=== PATIENT | male | born 1960 | race Caucasian/White ===

== ENCOUNTER → 2016-12-03 | Outpatient (CLI) | payer BC ==
[~2016-12-03] MED LIST: CYAN100020 PO; FEBU80TA PO; FOLITAB21 PO; LOSA100T65 PO; NRN600 PO; OMEP40CA41 PO; POTA1080 PO; PYRI100T4 PO; SULI150T PO; ZCR40 PO
[2016-12-03 12:17] LABS: BASO % 1.1 %; BASO ABS # 0.07 K/uL (0-0.2); COMPLETE YES; EOS % 5.3 %; HEMATOCRIT 47.4 % (42-52); IG% 0.5 %; LYMPH % 14.4 %; LYMPH ABS # 0.95 K/uL (1.2-3.4); MEAN CELL VOLUME 93.9 fL (80-100); MEAN CORPUSCULAR HEMOGLOBIN 30.7 pg (25-34); MEAN CORPUSCULAR HGB CONC 32.7 g/dl (32-36); MEAN PLATELET VOLUME 11.7 fL (7.4-10.4); MONO % 12.4 %; NEUT % 66.3 %; PLATELET COUNT 158 K/uL (130-400); RED BLOOD COUNT 5.05 M/uL (4.7-6.1)
[2016-12-03 12:40] LABS: ALT/SGPT 30 U/L (12-78); AST/SGOT 17 U/L (15-37); BLOOD UREA NITROGEN 41 mg/dl (7-18); BUN/CREATININE RATIO 12.7 (10-20); CALCIUM 9.2 mg/dl (8.5-10.1); CARBON DIOXIDE 26 mmol/L (21-32); CHLORIDE 109 mmol/L (98-107); CHOLESTEROL 118 mg/dl (0-200); CHOLESTEROL/HDL RATIO 3.8; GLUCOSE 90 mg/dl (70-99); HDL CHOLESTEROL 31 mg/dl; LDL CHOLESTEROL CALCULATED 63 mg/dl; POTASSIUM 4.6 mmol/L (3.5-5.1); SODIUM 143 mmol/L (136-145); TRIGLYCERIDES 119 mg/dl (0-150); VERY LOW DENSITY LIPOPROT CALC 24 mg/dl
[2016-12-03 12:45] LABS: ESTIMATED AVERAGE GLUCOSE 114 mg/dl; HA1C FLAG Normal (Normal)
[2016-12-03 13:16] LABS: URINE APPEARANCE CLEAR (CLEAR); URINE BILIRUBIN NEG (NEG); URINE COLOR YELLOW; URINE EPITHELIAL CELL AUTO >30 /lpf (0-5); URINE NITRITE NEG (NEG); URINE PH 6.5 (4.5-7.5); UROBILINOGEN NEG (NEG)
[2016-12-03 13:26] LABS: MANUAL MICROSCOPIC REQUIRED? NO; REVIEW REQ? NO
[2016-12-03 14:20] LABS: RATIO 1361.5 mcg/mg (0-30.0)
== END | disposition home or self-care (01) ==
LOC: C.LAB1850 09:51
PROVIDERS: ATTEND Internal Medicine
DX: R73.9 Hyperglycemia, unspecified (principal)

== ENCOUNTER → 2017-02-05 | Outpatient (CLI) | payer BC | END | disposition home or self-care (01) | LOC: C.LAB1850 15:44 | PROVIDERS: ATTEND Internal Medicine | DX: G62.9 Polyneuropathy, unspecified (principal) ==

== ENCOUNTER → 2017-04-28 | Day surgery (SDC) | payer BC ==
[2017-04-14 15:45] VITALS: BMI 45.0
[~2017-04-28] VITALS: Ht 182.9 cm; Wt 150.0 kg
[~2017-04-28] MED LIST changes: +DULO-24 PO; -FEBU80TA PO; +GABA600T PO; +LIDOCAINE HCL 2% 2 ML VIAL (20MG/ML) ONE; -LOSA100T65 PO; +LOSA1TAB38 PO; +MIDAZOLAM HCL 1 MG/ML 2ML VIAL ONE; -NRN600 PO; -POTA1080 PO; +POTA10CA28 PO; +PROPOFOL IV EMULSION 10 MG/ML 20 ML VIAL IV ONE; +SIMV40TA2 PO; +SODIUM CHLORIDE 0.9% 500ML 500 ML IV ONE; -ZCR40 PO
[2017-04-28 09:09] VITALS: Ht 182.9 cm; Wt 150.0 kg
[2017-04-28 09:21] VITALS: TEMP 36.7
--- NOTE | 2017-04-28 09:55 | Endo History and Physical ---
History & Physical Date of Service: Apr 28, 2017. Chief Complaint: screening Referring Physician: dr. palm History of Present Illness 56 yo CM who presents for screening colonoscopy. Past Surgical History Hx Cardiac Surgery: No Hx Internal Defibrillator: No Hx Pacemaker: No Hx Abdominal Surgery: No Hx of Implantable Prosthesis: No Hx Post-Op Nausea and Vomiting: No Hx Cancer Surgery: Yes (MELANOMA REMOVED FROM LEFT LEG WITH SKIN GRAFTING) Hx Thoracic Surgery: No Hx Orthopedic: Yes (RT WRIST SURGERY) Hx Urinary Tract Surgery: No Family History IBD Social History Smoking Status: Never Smoker Hx Substance Use: No Hx Alcohol Use: Yes (VERY RARELY) Allergies Coded Allergies: Allopurinol (Unverified Allergy, Unknown, RASH, 04/28/17) Penicillins (Unverified Allergy, Unknown, A BABY, UNSURE OF RX, ) Current Medications Reported Home Medications Medications Dose Route/Sig Max Daily Dose Days Date Category Micro-K Ext Rel (Potassium Chloride) 10 Meq Capcr 10 Meq PO BID 04/14/17 Reported Vitamin B6 (Pyridoxine HCl) 100 Mg Tab 50 Mg PO QAM 04/14/17 Reported Vitamin B12 (Cyanocobalamin) 1,000 Mcg Tab 1 Tab PO QAM 04/14/17 Reported Clinoril (Sulindac) 150 Mg Tab 150 Mg PO BID 04/14/17 Reported Zocor (Simvastatin) 40 Mg Tab 40 Mg PO QPM 04/14/17 Reported Prilosec (Omeprazole) 40 Mg Cap 40 Mg PO QAM 04/14/17 Reported Cozaar (Losartan Potassium) 100 Mg Tab 100 Mg PO QAM 04/14/17 Reported Neurontin (Gabapentin) 600 Mg Tab 600 Mg PO TID 04/14/17 Reported Folbic (Folic Urwf-Amguxgcqek-Xamvomqx) 1 Tab Tab 1 Tab PO QAM 04/14/17 Reported Cymbalta (Duloxetine HCl) 20 Mg Cap 2 Cap PO QAM 04/14/17 Reported Vital Signs Weight (Kilograms): 150.00 Height (Feet): 6 Height (Inches): 0 Date Time Temp Pulse Resp B/P (MAP) Pulse Ox O2 Delivery O2 Flow Rate FiO2 04/28/17 09:21 36.7 63 18 167/95 (119) 97 Room Air Physical Exam General Appearance: WD/WN, no apparent distress Respiratory/Chest: Auscultation: breath sounds normal Cardiovascular: Heart Auscultation: RRR Abdomen: Bowel Sounds: normal Inspection & Palpation: soft, non-distended, no tenderness, guarding & rebound Assessment and Plan Assessment: 56 yo CM who presents for screening colonoscopy. Plan: Proceed with colonoscopy.
--- NOTE | 2017-04-28 10:32 | GI REPORT ---
Procedure Date: 04/28/2017 9:41 AM Procedure: Colonoscopy Indications: Screening for colorectal malignant neoplasm Medicines: Monitored Anesthesia Care Complications: No immediate complications. Estimated Blood Loss: Estimated blood loss: none. Procedure: Pre-Anesthesia Assessment: - Prior to the procedure, a History and Physical was performed, and patient medications and allergies were reviewed. The patient's tolerance of previous anesthesia was also reviewed. The risks and benefits of the procedure and the sedation options and risks were discussed with the patient. All questions were answered, and informed consent was obtained. Prior Anticoagulants: The patient has taken no previous anticoagulant or antiplatelet agents. ASA Grade Assessment: III - A patient with severe systemic disease. After reviewing the risks and benefits, the patient was deemed in satisfactory condition to undergo the procedure. After I obtained informed consent, the scope was passed under direct vision. Throughout the procedure, the patient's blood pressure, pulse, and oxygen saturations were monitored continuously. The On-site loaner was introduced through the anus and advanced to the cecum, identified by appendiceal orifice and ileocecal valve. The colonoscopy was performed with moderate difficulty due to the patient's body habitus. Successful completion of the procedure was aided by changing the patient to a supine position and using manual pressure. The patient tolerated the procedure well. The quality of the bowel preparation was good. The ileocecal valve, appendiceal orifice, and rectum were photographed. Findings: The perianal and digital rectal examinations were normal. A 4 mm polyp was found in the sigmoid colon. The polyp was sessile. The polyp was removed with a cold biopsy forceps. Resection and retrieval were complete. Non-bleeding internal hemorrhoids were found during retroflexion. The hemorrhoids were small. Impression: - One 4 mm polyp in the sigmoid colon, removed with a cold biopsy forceps. Resected and retrieved. - Non-bleeding internal hemorrhoids. Recommendation: - Resume previous diet. - Continue present medications. - Repeat colonoscopy for surveillance based on pathology results. - Return to primary care physician as previously scheduled. Keith Davis DO 04/28/2017 10:32:12 AM This report has been signed electronically. Note Initiated On: 04/28/2017 9:41 AM I attest to the content of the Intraoperative Record and orders documented therein, exceptions below
--- NOTE | 2017-04-28 10:33 | Discharge Instructions ---
Endoscopy Patient Instructions Date / Procedure(s) Performed Apr 28, 2017. Colonoscopy Allergy Information Coded Allergies: Allopurinol (Unverified Allergy, Unknown, RASH, 04/28/17) Penicillins (Unverified Allergy, Unknown, A BABY, UNSURE OF RX, ) Discharge Date / Findings Apr 28, 2017. Colon polyp Internal hemorrhoids Medication Instructions OK to resume all medications today as prescribed Reported Home Medications Medications Dose Route/Sig Max Daily Dose Days Date Category Micro-K Ext Rel (Potassium Chloride) 10 Meq Capcr 10 Meq PO BID 04/14/17 Reported Vitamin B6 (Pyridoxine HCl) 100 Mg Tab 50 Mg PO QAM 04/14/17 Reported Vitamin B12 (Cyanocobalamin) 1,000 Mcg Tab 1 Tab PO QAM 04/14/17 Reported Clinoril (Sulindac) 150 Mg Tab 150 Mg PO BID 04/14/17 Reported Zocor (Simvastatin) 40 Mg Tab 40 Mg PO QPM 04/14/17 Reported Prilosec (Omeprazole) 40 Mg Cap 40 Mg PO QAM 04/14/17 Reported Cozaar (Losartan Potassium) 100 Mg Tab 100 Mg PO QAM 04/14/17 Reported Neurontin (Gabapentin) 600 Mg Tab 600 Mg PO TID 04/14/17 Reported Folbic (Folic Dful-Bseywztyly-Pklbqrrt) 1 Tab Tab 1 Tab PO QAM 04/14/17 Reported Cymbalta (Duloxetine HCl) 20 Mg Cap 2 Cap PO QAM 04/14/17 Reported Provider Instructions Activity Restrictions - No exercising or heavy lifting for 24 hours. - Do not drink alcohol the day of the procedure. - Do not drive a car or operate machinery until the day after the procedure. - Do not make any important decisions or sign important papers in 24 hours after the procedure. Following Day: - Return to full activity which may include returning to work/school. Diet Start your diet with liquids and light foods (jello, soup, juice, toast). Then eat your usual diet if not nauseated. Treatment For Common After Affects For mild abdominal pain, bloating, or excessive gas: - Rest - Eat lightly - Lie on right side Follow-Up Information Follow-up with dr. palm as scheduled Anesthesia Information What You Should Know You have had a procedure that required some medicine to reduce anxiety and discomfort. This treatment is called moderate sedation. After receiving the treatment, you may be sleepy, but you will be able to breathe on your own. The effects of the treatment may last for several hours. Follow these instructions along with Activity/Diet recommendations noted above: * Do NOT do anything where dizziness or clumsiness would be dangerous. * Rest quietly at home today, then you can be up and about tomorrow. * Have a responsible person stay with you the rest of today. * You may have had an I.V. today. If so, you may take the dressing off later today. Recommendations Call your doctor if: * Trouble breathing * Continuous vomiting for more than 24 hours * Temperature above 101 degrees * Severe abdominal pain or bloating * Pain not relieved by pain medicine ordered * There is increased drainage or redness from any incision * A large amount of rectal bleeding greater than 2-3 tablespoons. (If you had a polyp/s removed or have hemorrhoids, a small amount of blood - from the rectum is to be expected.) * You have any unanswered questions or concerns. IN THE EVENT OF A SERIOUS EMERGENCY, GO TO THE NEAREST EMERGENCY ROOM Your discharge instructions were prepared by provider Keith Davis. Patient Instructions Signature Page Kirby Prado Patient (or Guardian) Signature/Date: I have read and understand the instructions given to me by my caregivers. Caregiver/RN/Doctor Signature/Date: The above-named patient and/or guardian has received patient instructions on this date. + Original Patient Signature Page (only) stays with chart. Please make copy for patient.
--- NOTE | 2017-04-28 10:46 | Anesthesiology Progress Note ---
Anesthesia Post Op Note Date & Time Apr 28, 2017 at 10:46 Vital Signs Pain Intensity: 0 Vital Signs Past 12 Hours Date Time Temp Pulse Resp B/P (MAP) Pulse Ox O2 Delivery O2 Flow Rate FiO2 04/28/17 10:30 74 12 133/85 (101) 97 Room Air 04/28/17 09:21 36.7 63 18 167/95 (119) 97 Room Air Notes Mental Status: alert / awake / arousable, participated in evaluation Pt Amnestic to Procedure: Yes Nausea / Vomiting: adequately controlled Pain: adequately controlled Airway Patency, RR, SpO2: stable & adequate BP & HR: stable & adequate Hydration State: stable & adequate Anesthetic Complications: no major complications apparent
[2017-04-28 11:00] VITALS: BP 149/95; PULSE 60; O2SAT 99
== END | disposition home or self-care (01) ==
LOC: C.GI 08:56
PROVIDERS: ATTEND Internal Medicine
DX: Z12.11 Encounter for screening for malignant neoplasm of colon (principal); K63.5 Polyp of colon; K64.8 Other hemorrhoids; Z85.820 Personal history of malignant melanoma of skin; Z83.79 Family history of other diseases of the digestive system

== ENCOUNTER → 2017-07-29 | Outpatient (CLI) | payer BC ==
[~2017-07-29] MED LIST changes: -LIDOCAINE HCL 2% 2 ML VIAL (20MG/ML) ONE; -MIDAZOLAM HCL 1 MG/ML 2ML VIAL ONE; -PROPOFOL IV EMULSION 10 MG/ML 20 ML VIAL IV ONE; -SODIUM CHLORIDE 0.9% 500ML 500 ML IV ONE
--- NOTE | 2017-07-29 10:56 | DIAGNOSTIC IMAGING REPORT ---
CHEST 2 VIEWS ROUTINE HISTORY: 56 years-old Male [id number] acute cough COMPARISON: Chest CT 09/01/2011, chest radiographs 08/31/2011 TECHNIQUE: PA and lateral views of the chest FINDINGS: Cardiac silhouette is upper limits of normal in size. Bilateral hilar prominence again noted with multiple scattered pulmonary nodules. No pneumothorax, pleural effusion or lobar airspace consolidation. Bones appear grossly intact. Sigmoidal scoliosis of the thoracolumbar spine. IMPRESSION: 1. Redemonstration of multiple bilateral pulmonary nodules and hilar enlargement, likely reflecting sequela of prior granulomatous disease, better characterized on comparison chest CT of 09/01/2011. 2. No lobar airspace consolidation identified. The above report was generated using voice recognition software. It may contain grammatical, syntax or spelling errors. Electronically signed by: Karl Miller M.D. 07/29/2017 10:54 AM Dictated Date/Time: 07/29/2017 10:52 AM
[2017-07-29 13:15] LABS: INFLUENZA B ANTIGEN Neg for Influ B (NEG)
== END | disposition home or self-care (01) ==
LOC: C.RAD1850 10:26
PROVIDERS: ATTEND Physician Assistant Medical
DX: R05 Cough (principal)

== ENCOUNTER → 2017-08-13 | Outpatient (CLI) | payer BC | END | disposition home or self-care (01) | LOC: C.LAB1850 15:52 | PROVIDERS: ATTEND Internal Medicine | DX: R39.9 Unspecified symptoms and signs involving the genitourinary system (principal) ==

== ENCOUNTER → 2017-08-17 | Outpatient (CLI) | payer BC ==
[2017-08-17 15:38] LABS: BASO % 1.3 %; BASO ABS # 0.08 K/uL (0-0.2); EOS % 5.2 %; EOS ABS # 0.33 K/uL (0-0.5); HEMOGLOBIN 13.7 g/dL (14.0-18.0); IG# 0.04 K/uL (0.00-0.02); LYMPH % 16.7 %; LYMPH ABS # 1.06 K/uL (1.2-3.4); MEAN CELL VOLUME 95.3 fL (80-100); MEAN CORPUSCULAR HEMOGLOBIN 31.9 pg (25-34); MEAN CORPUSCULAR HGB CONC 33.4 g/dl (32-36); MEAN PLATELET VOLUME 10.4 fL (7.4-10.4); MONO % 12.5 %; MONO ABS # 0.79 K/uL (0.11-0.59); NEUT % 63.7 %; NEUT ABS # 4.03 K/uL (1.4-6.5); PLATELET COUNT 260 K/uL (130-400); RED CELL DISTRIBUTION WIDTH CV 12.9 % (11.5-14.5); RED CELL DISTRIBUTION WIDTH SD 44.6 fL (36.4-46.3); WHITE BLOOD COUNT 6.33 K/uL (4.8-10.8)
[2017-08-17 15:56] LABS: BLOOD UREA NITROGEN 65 mg/dl (7-18); CARBON DIOXIDE 22 mmol/L (21-32); CREATININE 4.18 mg/dl (0.60-1.40); GLUCOSE 88 mg/dl (70-99); POTASSIUM 5.7 mmol/L (3.5-5.1); SODIUM 140 mmol/L (136-145)
== END | disposition home or self-care (01) ==
LOC: C.LAB1850 14:41
PROVIDERS: ATTEND Internal Medicine
DX: E78.00 Pure hypercholesterolemia, unspecified (principal)

== ENCOUNTER → 2017-09-16 | Outpatient (CLI) | payer BC | END | disposition home or self-care (01) | LOC: C.LAB1850 16:57 | PROVIDERS: ATTEND Internal Medicine | DX: N41.9 Inflammatory disease of prostate, unspecified (principal) ==

== ENCOUNTER → 2017-12-20 | Outpatient (CLI) | payer BC ==
[~2017-12-20] MED LIST changes: +FEBU80TA PO; -POTA10CA28 PO; -SULI150T PO; +URC10 PO
[2017-12-20 12:34] LABS: BLOOD UREA NITROGEN 83 mg/dl (7-18); CARBON DIOXIDE 19 mmol/L (21-32); CREATININE 3.22 mg/dl (0.60-1.40); GLUCOSE 110 mg/dl (70-99); POTASSIUM 4.8 mmol/L (3.5-5.1); SODIUM 140 mmol/L (136-145)
== END | disposition home or self-care (01) ==
LOC: C.LAB1850 09:59
PROVIDERS: ATTEND Physician Assistant
DX: N18.9 Chronic kidney disease, unspecified (principal)

== ENCOUNTER → 2017-12-29 | Outpatient (CLI) | payer BC ==
[2017-12-29 14:59] LABS: BLOOD UREA NITROGEN 82 mg/dl (7-18); CALCIUM 8.3 mg/dl (8.5-10.1); CARBON DIOXIDE 19 mmol/L (21-32); CREATININE 3.42 mg/dl (0.60-1.40); GLUCOSE 85 mg/dl (70-99); POTASSIUM 5.5 mmol/L (3.5-5.1); SODIUM 142 mmol/L (136-145)
== END | disposition home or self-care (01) ==
LOC: C.LAB1850 13:40
PROVIDERS: ATTEND Internal Medicine
DX: N18.9 Chronic kidney disease, unspecified (principal)

== ENCOUNTER → 2018-01-06 | Outpatient (CLI) | payer BC ==
[2018-01-06 10:30] LABS: BLOOD UREA NITROGEN 79 mg/dl (7-18); CALCIUM 8.1 mg/dl (8.5-10.1); CARBON DIOXIDE 22 mmol/L (21-32); CREATININE 3.75 mg/dl (0.60-1.40); GLUCOSE 121 mg/dl (70-99); POTASSIUM 4.8 mmol/L (3.5-5.1); SODIUM 141 mmol/L (136-145)
== END | disposition home or self-care (01) ==
LOC: C.LAB1850 09:09
PROVIDERS: ATTEND Physician Assistant
DX: N18.9 Chronic kidney disease, unspecified (principal)

== ENCOUNTER 2018-11-12 16:24 | Inpatient (IN) ==
[2018-11-12 17:19] LABS: Appearance Urine Clear (Clear); Bacteria Urine Automated Negative (Negative); Bilirubin Urine Negative (Negative); Blood Urine 1+ (Negative); Cast Urine Automated 0 /lpf (0-5); Color Urine Yellow; Epithelial Cell Urine Auto 0-5 /lpf (0-5); Glucose Urine UA Negative (Negative); Ketones Urine Negative (Negative); Leukocyte Esterase Urine Negative (Negative); Nitrite Urine Negative (Negative); Protein Urine 2+ (Negative); RBC Urine Automated 0-4 /hpf (0-4); Specific Gravity Urine 1.015 (1.000-1.030); Urobilinogen Urine Negative (Negative)
[2018-11-12 17:34] LABS: Basophils # (auto) 0.08 K/uL (0-0.2); Basophils % (auto) 1.3 %; Eosinophils % (auto) 8.1 %; Hematocrit (blood only) 32.1 % (42-52); Immature Granulocytes # (auto) 0.01 K/uL (0.00-0.02); Immature Granulocytes % (auto) 0.2 %; Lymphocytes # (auto) 0.92 K/uL (1.2-3.4); Mean Corpuscular Hgb Conc 34.3 g/dL (32-36); Mean Corpuscular Volume 95.3 fL (80-100); Monocytes % (auto) 11.4 %; Neutrophils # (auto) 3.93 K/uL (1.4-6.5); Platelet Count 146 K/uL (130-400); RDW Coefficient of Variation 12.2 % (11.5-14.5); Red Blood Count 3.37 M/uL (4.7-6.1); White Blood Count 6.14 K/uL (4.8-10.8)
[2018-11-12] MEDS ORDERED: SODIUM CHLORIDE 0.9% 1000ML 1,000 ML IV ONE (17:41)
[2018-11-12 18:04] LABS: Albumin Globulin Ratio 1.1 (0.9-2); Albumin Level 3.6 gm/dl (3.4-5.0); Bilirubin,Total 0.4 mg/dl (0.2-1); Calcium 13.3 mg/dl (8.5-10.1); Creatinine Clr Calc Pharmacy 11.2 ml/min; Est GFR (African American) 6.1; Est GFR (Non-African American) 5.3; Globulin 3.2 gm/dl (2.5-4.0); Potassium 5.7 mmol/L (3.5-5.1); Total Protein 6.8 gm/dl (6.4-8.2)
--- NOTE | 2018-11-12 20:16 | History & Physical Report ---
Date of Service November 12, 2018 Assessment & Plan (1) Acute kidney injury superimposed on CKD: 57 year old male with a past medical history of HTN, HLD, DVT (10 yrs ago, no longer on anticoagulation), Neuropathy, Gout, CKD, possible Sarcoidosis admitted with acute on chronic kidney disease and multiple electrolyte abnormalities Acute on CKD -Cr 9.66 rising from 4.7 -5.6 in Dec 2017 to 6.7-8.2 from Jul-September 2018 - given IV Ns 1L bolus in ED - has fistula in place, but had never required dialysis - Start NS drip at 100 cc/hr - Avoid nephrotoxic agents - Losartan held - Monitor ins/outs - Nephrology consulted (2) Hypercalcemia: possibly related to Sarcoidosis though diagnosis remains unconfirmed per patient - IV fluids as above - Calcium acetate held - Continue to monitor Ca level - PTH < 6.3 on day arrival (3) Hyperkalemia: K 5.2- 5.7 on day arrival baseline5.5-5.9 with last 4 months likely secondary to ckd potassium citrate held Continue to follow daily bmps (4) Neuropathy: Continue Gabapentin, Duloxetine (5) Gout: Continue Uloric (6) History of DVT (deep vein thrombosis): DVT 10 yrs ago s/p melanoma removal no longer on anticoagulation DVT prophylaxis protocol with Heparin (7) GERD (gastroesophageal reflux disease): Continue Omeprazole (8) Hypertension: Losartan held given elevated Cr Continue to monitor BP History of Present Illness Chief Complaint: Acute on Chronic Kidney disease, Hypercalcemia Primary Care Provider: Lan Pablo MD 57 year old male with a past medical history of HTN, HLD, DVT (10 yrs ago, no longer on anticoagulation), Neuropathy, Gout, CKD, possible Sarcoidosis, that presents due to abnormal lab results. Patient had recent labwork drawn prior to scheduled appt with Dr Pablo. He was notified today that he should be evaluated at the [facility] ED. Patient reports general worsening fatigue but is otherwise asymptomatic. He has never had dialysis, however, He did have a fistula placed in May. He reports frequent urination in small amounts however this is his baseline . He denies fevers, chills, chest pain, palpitation, edema, presyncope, syncope. In the ED, patient was found to be afebrile, normotensive, Hb 11 ( baseline 10- 12) K 5.2-->5.7 ( baseline 4-6), Cr 9.66 rising from 4.7 -5.6 in Dec 2017 to 6.7-8.2 from Jul-September 2018, Ca 12.7-->13.3, phos 8.4. He was given 1L NS in the ED. Allergies Allergy/AdvReac Type Severity Reaction Status Date / Time allopurinol Allergy Unknown Rash Verified 11/12/18 17:44 Penicillins Allergy Unknown Unknown Verified 11/12/18 17:44 Home Medications Home Medications Medication Instructions Recorded Confirmed Type Uloric 80 mg PO QAM 06/22/18 11/12/18 History cyanocobalamin (vitamin B-12) 1,000 mcg PO QAM 06/22/18 11/12/18 History duloxetine 20 mg PO QAM 06/22/18 11/12/18 History omeprazole 40 mg PO QAM 06/22/18 11/12/18 History pyridoxine (vitamin B6) [Vitamin 100 mg PO QAM 06/22/18 11/12/18 History B-6] simvastatin 40 mg PO QPM 06/22/18 11/12/18 History Folbic 1 tab PO QAM 11/12/18 11/12/18 History gabapentin 600 mg PO BID #0 cap 11/14/18 11/12/18 Rx Past Med/Surg History Medical History Chronic kidney disease (Acute) Deep vein blood clot of left lower extremity S/P LEFT LEG SURGERY (EXCISION OF MELANOMA LEFT LEG) 10 YEARS AGO. Gout Hyperlipidemia Hypertension Sarcoidosis Sleep apnea CPAP Surgical History History of melanoma excision History of tonsillectomy History of tooth extraction Social History Preferred Language: [place] Communication Ability: Effective Beliefs That Will Affect Care: None marital status: Current Living Situation: Spouse Feels Safe at Home: Yes Smoking Status: Never smoker Second Hand Exposure: No Hx Alcohol Use: No Hx Substance Use: No Review of Systems Review of Systems: All systems reviewed & are unremarkable except as noted in HPI & below Physical Exam Physical Exam: GENERAL APPEARANCE: obese, alert and cooperative, and appears to be in no acute distress. HEAD: normocephalic. EYES: PERRL, EOMI, vision is grossly intact. EARS: External auditory canals and tympanic membranes clear, hearing grossly intact. NOSE: No nasal discharge. NECK: Neck supple, non-tender without lymphadenopathy CARDIAC: Normal S1 and S2. No S3, S4 or murmurs. Rhythm is regular LUNGS: Clear to auscultation and percussion without rales, rhonchi, wheezing or diminished breath sounds. ABDOMEN: Positive bowel sounds. Soft, nondistended, nontender. No guarding or rebound. No masses. MUSKULOSKELETAL: moving extremities LOWER EXTREMITY: no edema, hemosiderin staining bilaterally NEUROLOGICAL: CN II-XII grossly intact. Strength and sensation symmetric and intact throughout. Results & Data Vital Signs (Past 12 Hours) Vital Signs Temp Pulse Resp BP Pulse Ox 11/12/18 18:31 103 H 19 150/87 H 11/12/18 17:38 66 20 146/73 H 11/12/18 17:00 56 L 18 134/79 11/12/18 16:28 36.4 C L 58 L 18 138/85 96 Laboratory Results Laboratory Results WBC 6.14 K/uL (4.8-10.8) 11/12/18 17:20 RBC 3.37 M/uL (4.7-6.1) L 11/12/18 17:20 Hgb 11.0 g/dL (14.0-18.0) L 11/12/18 17:20 Hct 32.1 % (42-52) L 11/12/18 17:20 MCV 95.3 fL (80-100) 11/12/18 17:20 MCH 32.6 pg (25-34) 11/12/18 17:20 MCHC 34.3 g/dL (32-36) 11/12/18 17:20 RDW Std Deviation 42.0 fL (36.4-46.3) 11/12/18 17:20 RDW Coeff of Theresa 12.2 % (11.5-14.5) 11/12/18 17:20 Plt Count 146 K/uL (130-400) 11/12/18 17:20 MPV 11.0 fL (7.4-10.4) H 11/12/18 17:20 Immature Gran % (Auto) 0.2 % 11/12/18 17:20 Neut % (Auto) 64.0 % 11/12/18 17:20 Lymph % (Auto) 15.0 % 11/12/18 17:20 [place] % (Auto) 11.4 % 11/12/18 17:20 Eos % (Auto) 8.1 % 11/12/18 17:20 Baso % (Auto) 1.3 % 11/12/18 17:20 Immature Gran # (Auto) 0.01 K/uL (0.00-0.02) 11/12/18 17:20 Neut # (Auto) 3.93 K/uL (1.4-6.5) 11/12/18 17:20 Lymph # (Auto) 0.92 K/uL (1.2-3.4) L 11/12/18 17:20 [place] # (Auto) 0.70 K/uL (0.11-0.59) H 11/12/18 17:20 Eos # (Auto) 0.50 K/uL (0-0.5) 11/12/18 17:20 Baso # (Auto) 0.08 K/uL (0-0.2) 11/12/18 17:20 Sodium 143 mmol/L (136-145) 11/12/18 17:21 Potassium 5.7 mmol/L (3.5-5.1) H 11/12/18 17:21 Chloride 104 mmol/L (98-107) 11/12/18 17:21 Carbon Dioxide 28 mmol/L (21-32) 11/12/18 17:21 Anion Gap 11.0 (3-11) 11/12/18 17:21 BUN 105 mg/dl (7-18) H 11/12/18 17:21 Creatinine 9.78 mg/dl (0.6-1.4) H* 11/12/18 17:21 Est Cr Clr Drug Dosing 11.2 ml/min 11/12/18 17:21 Est GFR ( Amer) 6.1 11/12/18 17:21 Est GFR (Non-Af Amer) 5.3 11/12/18 17:21 BUN/Creatinine Ratio 11.0 (10-20) 11/12/18 17:21 Glucose 101 mg/dl (70-99) H 11/12/18 17:21 Calcium 13.3 mg/dl (8.5-10.1) H* 11/12/18 17:21 Phosphorus 7.7 mg/dl (2.5-4.9) H 11/12/18 17:21 Total Bilirubin 0.4 mg/dl (0.2-1) 11/12/18 17:21 AST 10 U/L (15-37) L 11/12/18 17:21 ALT 28 U/L (12-78) 11/12/18 17:21 Alkaline Phosphatase 92 U/L (45-117) 11/12/18 17:21 Total Protein 6.8 gm/dl (6.4-8.2) 11/12/18 17:21 Albumin 3.6 gm/dl (3.4-5.0) 11/12/18 17:21 Globulin 3.2 gm/dl (2.5-4.0) 11/12/18 17:21 Albumin/Globulin Ratio 1.1 (0.9-2) 11/12/18 17:21 Lipase 560 U/L (73-393) H 11/12/18 17:21 Urine Color Yellow 11/12/18 17:00 Urine Appearance Clear (Clear) 11/12/18 17:00 Urine pH 7.0 (4.5-7.5) 11/12/18 17:00 Ur Specific [place] 1.015 (1.000-1.030) 11/12/18 17:00 Urine Protein 2+ (Negative) H 11/12/18 17:00 Urine Glucose (UA) Negative (Negative) 11/12/18 17:00 Urine Ketones Negative (Negative) 11/12/18 17:00 Urine Blood 1+ (Negative) H 11/12/18 17:00 Urine Nitrite Negative (Negative) 11/12/18 17:00 Urine Bilirubin Negative (Negative) 11/12/18 17:00 Urine Urobilinogen Negative (Negative) 11/12/18 17:00 Ur Leukocyte Esterase Negative (Negative) 11/12/18 17:00 Urine WBC (Auto) 1-5 /hpf (0-5) 11/12/18 17:00 Urine RBC (Auto) 0-4 /hpf (0-4) 11/12/18 17:00 U Hyaline Cast (Auto) 0 /lpf (0-5) 11/12/18 17:00 U Epithel Cells (Auto) 0-5 /lpf (0-5) 11/12/18 17:00 Urine Bacteria (Auto) Negative (Negative) 11/12/18 17:00 Code Status & VTE Plan Code Status Full code VTE Prophylaxis Plan VTE Prophylaxis will be ordered: Yes Supervising Physician Co-Signing Physician Notes Attending addendum: I have physically seen this patient, have supervised the medical residents activities, and agree with the H&P unless as otherwise noted. Assessment and Plan: Acute kidney injury on CKD- Creatinine today 9.78, with baseline 4.7-5.6 since 12/2017. Given normal saline 1 L in the ED. Continue NSS at 100 mils per hour. Hold losartan. Repeat laboratories in a.m. Consult nephrology. Hypercalcemia- Calcium level 13.3 upon admission. Questionable diagnosis of sarcoidosis in the past. NSS at 100 mils per hour as noted above. Give pamidronate 60 mg IV x1. Follow serial laboratories in the a.m. Remainder of orders notations as noted. Resident Activity Tracking Resident Involvement: Resident Care Provided Care Provided: Adult Hospital Medicine
[2018-11-12] MEDS ORDERED: PAMIDRONATE DISODIUM 60 MG in SODIUM CHLORIDE 0.9% 1000ML 1,000 ML IV STA ×2 (21:19→23:42)
[2018-11-12] MEDS ORDERED: ACETAMINOPHEN 325 MG TAB PO PRN (21:50)
[2018-11-12] MEDS ORDERED: ONDANSETRON INJ 2 MG/ML 2 ML VIAL IV PRN (21:50)
[2018-11-12] MEDS ORDERED: ALUMINUM/MAGNESIUM SUSP 30 ML UDC PO PRN (21:50)
[2018-11-12] MEDS ORDERED: SODIUM CHLORIDE 0.9% 1000ML 1,000 ML IV SCH (22:00)
--- NOTE | 2018-11-12 22:49 | Emergency Department Note ---
Entered by Fabby Fine acting as a scribe for Anibal Cason DO History of Present Illness General Chief complaint: Abnormal Labs/Diagnostic Testing Stated complaint: abnormal test results Source: patient History of Present Illness Provider complaint: fatigue Onset (ago): day(s) (several days) Location: head Radiation: non-radiation Pain Consistency: + other (persistent) Maximum Pain Intensity: 0 Relieved By: + none Exacerbated By: + none Associated symptoms: + other (-abdominal pain, -diarrhea); no chest pain and no nausea/vomiting The patient is a 58 year old male who presents to the Emergency Room with complaints of persistent fatigue for the past several days. The patient states that he had blood work done this morning and his creatinine levels were at a 10 and his baseline is at a 6. The patient states that he has a kidney infection, but the source is unknown. The patient notes that he is on the transplant list and he is not on dialysis, but he has a fistula in place that has been there for months. The patient denies any chest pain, abdominal pain, nausea, vomiting, or diarrhea. He states that he has been frequently peeing. No other exacerbating or remitting factors. Patient has no other complaints at this time. Home Medications Home Medications Medication Instructions Recorded Confirmed Type Uloric 80 mg PO QAM 06/22/18 11/12/18 History cyanocobalamin (vitamin B-12) 1,000 mcg PO QAM 06/22/18 11/12/18 History duloxetine 20 mg PO QAM 06/22/18 11/12/18 History losartan 100 mg PO QAM 06/22/18 11/12/18 History omeprazole 40 mg PO QAM 06/22/18 11/12/18 History potassium citrate 1,080 mg PO BID 06/22/18 11/12/18 History pyridoxine (vitamin B6) [Vitamin 100 mg PO QAM 06/22/18 11/12/18 History B-6] simvastatin 40 mg PO QPM 06/22/18 11/12/18 History calcium acetate 1,334 mg PO TIDM 11/12/18 11/12/18 History folic acid-vit B6-vit B12 [Folbic] 1 tab PO QAM 11/12/18 11/12/18 History gabapentin 600 mg PO TID 11/12/18 11/12/18 History Allergies Allergy/AdvReac Type Severity Reaction Status Date / Time allopurinol Allergy Unknown Rash Verified 11/12/18 17:44 Penicillins Allergy Unknown Unknown Verified 11/12/18 17:44 Past Med/Surg History Medical History Chronic kidney disease (Acute) Deep vein blood clot of left lower extremity S/P LEFT LEG SURGERY (EXCISION OF MELANOMA LEFT LEG) 10 YEARS AGO. Gout Hyperlipidemia Hypertension Sarcoidosis Sleep apnea CPAP Surgical History History of melanoma excision History of tonsillectomy History of tooth extraction Social History Preferred Language: Vietnamese Communication Ability: Effective County Manager Required: No Beliefs That Will Affect Care: None Current Living Situation: Spouse Other Information That Helps Us Care for You: No Feels Safe at Home: Yes Safety Concerns: Feels Safe At This Time Smoking Status: Never smoker Do You Dip or Chew Tobacco: No Second Hand Exposure: No Hx Alcohol Use: No Hx Substance Use: No Review of Systems See HPI for pertinent positives & negatives. and A total of 10 systems reviewed and were otherwise negative Physical Exam Vital Signs Vital Signs - 24 hr 11/12/18 16:28 11/12/18 17:00 11/12/18 17:38 Temperature 36.4 C L Temperature Source Oral Sepsis Recent Fever Within 48 Hours No Sepsis New/Unexplained Change in Mental Status No Sepsis Action Taken by Nursing No Action Required Pulse Rate 58 L 56 L 66 Pulse Rate from SpO2 Sensor Respiratory Rate 18 18 20 Respiratory Effort / Characteristics Respiratory Depth Normal Respiratory Pattern Blood Pressure 138/85 134/79 146/73 H Blood Pressure Mean 102 97 97 Blood Pressure Position Sitting Pulse Oximetry 96 Oxygen Delivery Method Room Air 11/12/18 18:31 11/12/18 18:32 11/12/18 19:00 Temperature Temperature Source Sepsis Recent Fever Within 48 Hours Sepsis New/Unexplained Change in Mental Status Sepsis Action Taken by Nursing Pulse Rate 103 H 63 54 L Pulse Rate from SpO2 Sensor Respiratory Rate 19 17 20 Respiratory Effort / Characteristics Respiratory Depth Respiratory Pattern Blood Pressure 150/87 H Blood Pressure Mean 108 Blood Pressure Position Pulse Oximetry Oxygen Delivery Method 11/12/18 19:01 11/12/18 19:30 11/12/18 19:31 Temperature Temperature Source Sepsis Recent Fever Within 48 Hours Sepsis New/Unexplained Change in Mental Status Sepsis Action Taken by Nursing Pulse Rate 56 L 56 L 74 Pulse Rate from SpO2 Sensor Respiratory Rate 21 19 15 Respiratory Effort / Characteristics Respiratory Depth Respiratory Pattern Blood Pressure 159/92 H 170/105 H Blood Pressure Mean 114 126 Blood Pressure Position Pulse Oximetry Oxygen Delivery Method 11/12/18 19:40 11/12/18 19:58 11/12/18 20:00 Temperature Temperature Source Sepsis Recent Fever Within 48 Hours Sepsis New/Unexplained Change in Mental Status Sepsis Action Taken by Nursing Pulse Rate 55 L 125 H Pulse Rate from SpO2 Sensor Respiratory Rate 16 22 Respiratory Effort / Characteristics Non-Labored Spontaneous Respiratory Depth Normal Respiratory Pattern Regular Blood Pressure 171/97 H 164/100 H Blood Pressure Mean 121 121 Blood Pressure Position Pulse Oximetry Oxygen Delivery Method Room Air 11/12/18 20:30 Temperature Temperature Source Sepsis Recent Fever Within 48 Hours Sepsis New/Unexplained Change in Mental Status Sepsis Action Taken by Nursing Pulse Rate 60 Pulse Rate from SpO2 Sensor 58 L Respiratory Rate 19 Respiratory Effort / Characteristics Respiratory Depth Respiratory Pattern Blood Pressure 150/85 H Blood Pressure Mean 106 Blood Pressure Position Pulse Oximetry 100 Oxygen Delivery Method GENERAL: sitting up in bed, alert, well appearing, well nourished, no distress, non-toxic EYE EXAM: normal conjunctiva, PERRL and EOM's grossly intact OROPHARYNX: no exudate, no erythema, lips, buccal mucosa, and tongue normal and mucous membranes are moist NECK: supple, no nuchal rigidity, no adenopathy, non-tender LUNGS: Clear to auscultation. Normal chest wall mechanics HEART: no murmurs, S1 normal and S2 normal ABDOMEN: abdomen soft, non-tender, normo-active bowel sounds, no masses, no rebound or guarding. BACK: Back is symmetrical on inspection and there is no deformity, no midline tenderness, no CVA tenderness. SKIN: no rashes and no bruising UPPER EXTREMITIES: left distal forearm positive thrill and bruit. LOWER EXTREMITIES: No pitting edema. NEURO EXAM: Normal sensorium, cranial nerves II-XII grossly intact, normal speech, no gross weakness of arms, no gross weakness of legs. Course 1633: The patient was evaluated in room C7, and a complete history and physical examination were performed. 1800: I reevaluated and updated the patient on her test results. The patient is resting comfortably. 181: I reviewed the patient's case with Dr. Oropeza- [facility] Hospitalist. She will evaluate the patient for further management. Administered Medications Discontinued Medications Sodium Chloride (Nss 1000ml) 1,000 mls @ 999 mls/hr IV .Q1H1M ONE Stop: 11/12/18 18:41 Last Infusion: 11/12/18 20:14 Dose: 0 mls/hr Documented by: [id number] Admin: 11/12/18 17:48 Dose: 999 mls/hr Documented by: [id number] Medical Decision Making Differential Diagnosis Differential diagnosis: Etiologies such as metabolic, infection, hypo/hyperglycemia, electrolyte abnormalities, cardiac sources, intracerebral event, toxicologic, neurologic, as well as others were entertained. Medical Records Attestation: I reviewed the patient's medical records. Home Medications Current Medication List: was personally reviewed by me Laboratory Data Attestation: I reviewed the patient's lab results. Result diagrams: 11/12/18 17:20 11/12/18 17:21 Lab Results 11/12/18 11/12/18 11/12/18 Range/Units 17:00 17:20 17:21 WBC 6.14 (4.8-10.8) K/uL RBC 3.37 L (4.7-6.1) M/uL Hgb 11.0 L (14.0-18.0) g/dL Hct 32.1 L (42-52) % MCV 95.3 (80-100) fL MCH 32.6 (25-34) pg MCHC 34.3 (32-36) g/dL RDW Std Deviation 42.0 (36.4-46.3) fL RDW Coeff of Theresa 12.2 (11.5-14.5) % Plt Count 146 (130-400) K/uL MPV 11.0 H (7.4-10.4) fL Immature Gran % (Auto) 0.2 % Neut % (Auto) 64.0 % Lymph % (Auto) 15.0 % Wetzel % (Auto) 11.4 % Eos % (Auto) 8.1 % Baso % (Auto) 1.3 % Immature Gran # (Auto) 0.01 (0.00-0.02) K/uL Neut # (Auto) 3.93 (1.4-6.5) K/uL Lymph # (Auto) 0.92 L (1.2-3.4) K/uL [place] # (Auto) 0.70 H (0.11-0.59) K/uL Eos # (Auto) 0.50 (0-0.5) K/uL Baso # (Auto) 0.08 (0-0.2) K/uL Sodium 143 (136-145) mmol/L Potassium 5.7 H (3.5-5.1) mmol/L Chloride 104 (98-107) mmol/L Carbon Dioxide 28 (21-32) mmol/L Anion Gap 11.0 (3-11) BUN 105 H (7-18) mg/dl Creatinine 9.78 H* (0.6-1.4) mg/dl Est Cr Clr Drug Dosing 11.2 ml/min Est GFR ( Amer) 6.1 Est GFR (Non-Af Amer) 5.3 BUN/Creatinine Ratio 11.0 (10-20) Glucose 101 H (70-99) mg/dl Calcium 13.3 H* (8.5-10.1) mg/dl Phosphorus (2.5-4.9) mg/dl Total Bilirubin 0.4 (0.2-1) mg/dl AST 10 L (15-37) U/L ALT 28 (12-78) U/L Alkaline Phosphatase 92 (45-117) U/L Total Protein 6.8 (6.4-8.2) gm/dl Albumin 3.6 (3.4-5.0) gm/dl Globulin 3.2 (2.5-4.0) gm/dl Albumin/Globulin Ratio 1.1 (0.9-2) Lipase 560 H (73-393) U/L Urine Color Yellow Urine Appearance Clear (Clear) Urine pH 7.0 (4.5-7.5) Ur Specific [place] 1.015 (1.000-1.030) Urine Protein 2+ H (Negative) Urine Glucose (UA) Negative (Negative) Urine Ketones Negative (Negative) Urine Blood 1+ H (Negative) Urine Nitrite Negative (Negative) Urine Bilirubin Negative (Negative) Urine Urobilinogen Negative (Negative) Ur Leukocyte Esterase Negative (Negative) Urine WBC (Auto) 1-5 (0-5) /hpf Urine RBC (Auto) 0-4 (0-4) /hpf U Hyaline Cast (Auto) 0 (0-5) /lpf U Epithel Cells (Auto) 0-5 (0-5) /lpf Urine Bacteria (Auto) Negative (Negative) 11/12/18 Range/Units 17:21 WBC (4.8-10.8) K/uL RBC (4.7-6.1) M/uL Hgb (14.0-18.0) g/dL Hct (42-52) % MCV (80-100) fL MCH (25-34) pg MCHC (32-36) g/dL RDW Std Deviation (36.4-46.3) fL RDW Coeff of Theresa (11.5-14.5) % Plt Count (130-400) K/uL MPV (7.4-10.4) fL Immature Gran % (Auto) % Neut % (Auto) % Lymph % (Auto) % Wetzel % (Auto) % Eos % (Auto) % Baso % (Auto) % Immature Gran # (Auto) (0.00-0.02) K/uL Neut # (Auto) (1.4-6.5) K/uL Lymph # (Auto) (1.2-3.4) K/uL [place] # (Auto) (0.11-0.59) K/uL Eos # (Auto) (0-0.5) K/uL Baso # (Auto) (0-0.2) K/uL Sodium (136-145) mmol/L Potassium (3.5-5.1) mmol/L Chloride (98-107) mmol/L Carbon Dioxide (21-32) mmol/L Anion Gap (3-11) BUN (7-18) mg/dl Creatinine (0.6-1.4) mg/dl Est Cr Clr Drug Dosing ml/min Est GFR ( Amer) Est GFR (Non-Af Amer) BUN/Creatinine Ratio (10-20) Glucose (70-99) mg/dl Calcium (8.5-10.1) mg/dl Phosphorus 7.7 H (2.5-4.9) mg/dl Total Bilirubin (0.2-1) mg/dl AST (15-37) U/L ALT (12-78) U/L Alkaline Phosphatase (45-117) U/L Total Protein (6.4-8.2) gm/dl Albumin (3.4-5.0) gm/dl Globulin (2.5-4.0) gm/dl Albumin/Globulin Ratio (0.9-2) Lipase (73-393) U/L Urine Color Urine Appearance (Clear) Urine pH (4.5-7.5) Ur Specific [place] (1.000-1.030) Urine Protein (Negative) Urine Glucose (UA) (Negative) Urine Ketones (Negative) Urine Blood (Negative) Urine Nitrite (Negative) Urine Bilirubin (Negative) Urine Urobilinogen (Negative) Ur Leukocyte Esterase (Negative) Urine WBC (Auto) (0-5) /hpf Urine RBC (Auto) (0-4) /hpf U Hyaline Cast (Auto) (0-5) /lpf U Epithel Cells (Auto) (0-5) /lpf Urine Bacteria (Auto) (Negative) ECG Data Attestation: I personally reviewed and interpreted this ECG as follows: Indication: weakness Rate (beats per minute): 55 Rhythm: sinus bradycardia Findings: + other (normal left axis); no PVC Blood Pressure Blood Pressure Findings: Normal blood pressure MDM Narrative Patient is a 58-year-old male who presents the ER referred in by PCP/nephrology for hypercalcemia and acute kidney injury. Patient has a history of sarcoidosis as well. Patient baseline creatinine appears to be around 7. Today is just under 10. Potassium has elevated as well and calcium has elevated to 13.3. IV was established blood work was obtained. Patient was mildly hypertensive. Labs show no significant leukocytosis or anemia. BMP with a potassium of 5.7 creatinine 9.78. Calcium was at 13.3. Phosphorus elevated as well. No significant transaminitis. Lipase was slightly elevated at 500. UA was unremarkable. Discussed with nephrology and they recommended a bolus of normal saline and to trend the creatinine. EKG showed no peaked T waves or any other clear signs of hyperkalemia. Patient and family were updated bedside. Discussed with the hospitalist patient was admitted for LORENZO along with hypercalcemia. Impression & Plan Acute kidney injury, Hyperglycemia Discharge Plan Visit Data *Final* Discharge Date/Time: 11/12/18 21:21 Chief Complaint: Abnormal Labs/Diagnostic Testing Stated Complaint: abnormal test results ED Provider: Anibal Cason Discharge Problem: Acute kidney injury, Hyperglycemia Patient Disposition: Admitted As Inpatient Discharge Instructions Interventions: ED Discharge Assessment Last Done: 11/12/18 21:21 The scribe's documentation has been prepared under my direction and personally reviewed by me in its entirety. I confirm that the note above accurately reflects all work, treatment, procedures, and medical decision making performed by me.
[2018-11-12] MEDS: SIMVASTATIN 40 MG TAB PO SCH (23:26)
[2018-11-12] MEDS: GABAPENTIN 300 MG CAP PO SCH (23:26)
[2018-11-13] MEDS: PYRIDOXINE HCL 50 MG TAB PO SCH (07:18)
[2018-11-13] MEDS: GABAPENTIN 300 MG CAP PO SCH ×3 (07:18→19:54)
[2018-11-13] MEDS: DULOXETINE HCL 20 MG CAP PO SCH (07:18)
[2018-11-13] MEDS: PANTOprazole 40 MG TAB PO SCH (07:18)
[2018-11-13] MEDS: CYANOCOBALAMIN 500 MCG TABLET (VITAMIN B-12) PO SCH (07:18)
[2018-11-13] MEDS: FOLIC ACID 1 MG TAB PO SCH (07:19)
[2018-11-13] MEDS: FEBUXOSTAT 40 MG TABLET PO SCH (07:19)
[2018-11-13 07:21] LABS: INR 1.1 (0.9-1.1); Partial Thromboplastin Ratio 0.9; Prothrombin Time 10.8 Seconds (9.0-12.0)
[2018-11-13 07:47] LABS: BUN Creatinine Ratio 11.1 (10-20); Calcium 12.3 mg/dl (8.5-10.1); Creatinine Clr Calc Pharmacy 11.8 ml/min; Est GFR (African American) 6.6; Est GFR (Non-African American) 5.7; Magnesium 2.6 mg/dl (1.8-2.4); Phosphorus 8.7 mg/dl (2.5-4.9); Potassium 5.4 mmol/L (3.5-5.1)
[2018-11-13] MEDS: HEPARIN SOD 5,000 UNIT/0.5 ML VIAL SQ SCH ×2 (08:26→19:54)
--- NOTE | 2018-11-13 10:32 | Nephrology Consultation ---
Date of Consultation November 13, 2018 Assessment & Plan (1) Acute kidney injury superimposed on CKD: -- Clinically volume contracted. Creatinine is trending down off ARB therapy w/ IV hydration -- Mild hyperkalemia. Losartan has been stopped. Potassium is trending down. Low K diet added to orders. Will monitor. -- No acute indication for HD today. AVF appears to have matured and can be used when needed. Monitor PRP (2) Hypercalcemia: -- Will provide 0.9NS at 125 cc/hr -- No recent h/o exogenous calcium or vitamin D use. Patient had not yet started Phos-Lo -- Low PTH. Will check PTHrp, serum SCOTT, SPEP/UPEP, CXR -- Consider follow up chest CT, low dose steroid therapy based upon above results History of Present Illness Reason for Consultation: LORENZO on CKD, hypercalcemia Attending Physician: Guevara Valdez MD History of Present Illness Mr. Prado is a 58 year old white male who is seen at the request of Dr. Valdez for evaluation of LORENZO on CKD in the setting of hypercalcemia. Medical records in the EMR were reviewed today and are summarized as follows: Mr. Prado has stage V CKD (ESRD, baseline creatinine 6.5 w/ EGFR 8 cc/min) possibly due to chronic glomerulonephritis. He has a R radiocephalic AVF in place. He is currently active on the transplant list at [facility] in [place]. He has two potential living related donors. Mr. Nagel's medical history is also significant for HTN, hypercholesterolemia, nephr olithiasis, FARNAZ on CPAP therapy and obesity. He has been actively working on weight loss in preparation for transplantation and reports ~ 50 loss. Mr. Prado reports a h/o pulmonary nodules. He has undergone Pulmonology evaluation by Dr. Saleem Castillo 10/16 at [facility]. Quantiferon-TB gold test was negative, aspergillus & histoplasmosis antibodies were negative. SCOTT level was 125 (normal < 91). There were no ocular or cardiac symptoms. Chest CT was not significantly changed from previous studies. He was diagnosed with old/inactive sarcoidosis. Mr. Prado completed blood work yesterday in preparation for follow up w/ his PCP. Serum calcium was elevated at 12.7, creatinine increased to 9.6 and potassium was elevated at 5.2. Mr. Prado was subsequently admitted to the hospital for IV hydration and evaluation of hypercalcemia, acute on chronic kidney injury and hyperkalemia. Allergies Allergy/AdvReac Type Severity Reaction Status Date / Time allopurinol Allergy Unknown Rash Verified 11/12/18 17:44 Penicillins Allergy Unknown Unknown Verified 11/12/18 17:44 Home Medications Home Medications Medication Instructions Recorded Confirmed Type Uloric 80 mg PO QAM 06/22/18 11/12/18 History cyanocobalamin (vitamin B-12) 1,000 mcg PO QAM 06/22/18 11/12/18 History duloxetine 20 mg PO QAM 06/22/18 11/12/18 History losartan 100 mg PO QAM 06/22/18 11/12/18 History omeprazole 40 mg PO QAM 06/22/18 11/12/18 History potassium citrate 1,080 mg PO BID 06/22/18 11/12/18 History pyridoxine (vitamin B6) [Vitamin 100 mg PO QAM 06/22/18 11/12/18 History B-6] simvastatin 40 mg PO QPM 06/22/18 11/12/18 History calcium acetate 1,334 mg PO TIDM 11/12/18 11/12/18 History folic acid-vit B6-vit B12 [Folbic] 1 tab PO QAM 11/12/18 11/12/18 History gabapentin 600 mg PO TID 11/12/18 11/12/18 History Patient History Medical History Chronic kidney disease (Acute) Deep vein blood clot of left lower extremity S/P LEFT LEG SURGERY (EXCISION OF MELANOMA LEFT LEG) 10 YEARS AGO. Gout Hyperlipidemia Hypertension Sarcoidosis Sleep apnea CPAP Surgical History History of melanoma excision History of tonsillectomy History of tooth extraction Social History Preferred Language: Croatian Communication Ability: Effective Food Services Manager Required: No Beliefs That Will Affect Care: None Current Living Situation: Spouse Other Information That Helps Us Care for You: No Feels Safe at Home: Yes Safety Concerns: Feels Safe At This Time Smoking Status: Never smoker Do You Dip or Chew Tobacco: No Second Hand Exposure: No Hx Alcohol Use: No Hx Substance Use: No Review of Systems Constitutional: no fever and no weakness Eyes: no problem reported Respiratory: no dyspnea Cardiovascular: no chest pain and no palpitations Gastrointestinal: no abdominal pain, no vomiting and no diarrhea/loose stools Genitourinary: no dysuria, no urinary hesitancy, no hematuria and no flank pain Physical Exam Constitutional: WD/WN, vitals as above Eyes: PERRL, conjunctivae normal, anicteric sclerae ENMT: external ear and nose normal, oropharynx normal Neck: trachea midline, no thyromegaly Respiratory: normal respiratory effort, lungs clear to auscultation Cardiovascular: RRR, no murmur, no edema Extremities: + AV fistula (+ bruit) Gastrointestinal (Abdomen): normal bowel sounds, soft, nontender, no hepatosplenomegaly Musculoskeletal: no cyanosis or clubbing, extremities motor strength 5/5 Skin: no rashes, warm and dry Neurologic: awake; not confused Results & Data Vital Signs (Past 12 Hours) Vital Signs Temp Pulse Resp BP Pulse Ox 11/13/18 07:52 36.4 C L 57 L 18 140/89 98 11/13/18 04:00 36.5 C 58 L 19 131/75 98 11/12/18 23:30 36.9 C 19 140/87 96 Laboratory Tests 11/12/18 11/12/18 11/12/18 10:37 17:00 17:20 WBC 6.14 Hgb 11.0 L Hct 32.1 L Plt Count 146 Sodium Potassium Chloride Carbon Dioxide BUN Creatinine Glucose Calcium Phosphorus Magnesium PTH Intact < 6.3 L Urine Color Yellow Urine Appearance Clear Urine pH 7.0 Ur Specific [place] 1.015 Urine Protein 2+ H Urine Glucose (UA) Negative Urine Ketones Negative Urine Blood 1+ H Urine Nitrite Negative Urine WBC (Auto) 1-5 Urine RBC (Auto) 0-4 U Hyaline Cast (Auto) 0 U Epithel Cells (Auto) 0-5 Urine Bacteria (Auto) Negative 11/13/18 06:11 WBC Hgb Hct Plt Count Sodium 141 Potassium 5.4 H Chloride 108 H Carbon Dioxide 25 BUN 103 H Creatinine 9.19 H* D Glucose 97 Calcium 12.3 H* Phosphorus 8.7 H Magnesium 2.6 H PTH Intact Urine Color Urine Appearance Urine pH Ur Specific [place] Urine Protein Urine Glucose (UA) Urine Ketones Urine Blood Urine Nitrite Urine WBC (Auto) Urine RBC (Auto) U Hyaline Cast (Auto) U Epithel Cells (Auto) Urine Bacteria (Auto)
[2018-11-13] MEDS: SODIUM CHLORIDE 0.9% 1000ML 1,000 ML IV SCH ×2 (10:39→17:55)
--- NOTE | 2018-11-13 12:33 | XRay Report ---
XR chest 2V routine CLINICAL HISTORY: h/o sarcoidosis COMPARISON STUDY: Chest CT November 17, 2017. Chest radiograph January 19, 2018. FINDINGS: Mild S-shaped curvature of the thoracolumbar spine is again noted. There is no pneumothorax or pleural effusion. There is no consolidation to suggest pneumonia. Reticulonodular interstitial th ickening within the lungs is noted. This is likely due to pulmonary nodules which were shown on CT of November 25, 2017. Bilateral hilar enlargement is due to lymphadenopathy. The appearance of the chest is unchanged. IMPRESSION: 1. No change in appearance of the chest. Reticulonodular interstitial thickening and bilateral hilar enlargement consistent with the provided history of sarcoidosis. 2. No acute cardiopulmonary findings. Electronically signed by: Tray Owen M.D. 11/13/2018 12:32 PM
--- NOTE | 2018-11-13 12:45 | Hospitalist Progress Note ---
Date of Service November 13, 2018 Assessment & Plan (1) Acute kidney injury superimposed on CKD: On admission, Cr was 9.66; up from 6.7 - 8.2 in Jul - September 2018. Has fistula in place, but had never required dialysis. Unknown cause of his CKD, though chronic glomerulonephritis is suspected per Dr. Pablo's outpatient notes. - Continue IV fluids - Avoid nephrotoxic agents - Holding losartan - Nephrology consulted - Plan for further investigation; no need for dialysis at this point - On 11/13, kidney function is stable. (2) Hypercalcemia: No recent h/o exogenous calcium or vitamin D use. Patient had not yet started Phos-Lo, so this is not a factor. Has a questionable history of sarcoidosis (prior high SCOTT level, but no biopsy). - Per nephrology, checking PTHrp, serum SCOTT, SPEP/UPEP, CXR. - Consider follow up chest CT, low dose steroid therapy based upon above results. - Holding PhosLo, Tums/Maalox, or any other calcium-containing medication. - Received pamidronate the morning of 11/13; calcium is 12.3 this morning. (3) Hyperkalemia: K+ was 5.7 on admission; not significantly higher than prior months. Due to CKD. - On 11/13, down to 5.3 - Continue IVFs & monitor (4) Hyperphosphatemia: Due to his CKD. - Ca x phos product is > 100 - Discussed with Dr. Thornton on 11/13 -> No need to start sevelamer at this time. (5) Hypertension: BP high-normal so far inpatient (130/70-180/100). On losartan as outpatient. - Holding losartan for LORENZO and hyperK+ - Started amlodipine 5mg on 11/13 - May take 2-3 days to take full effect. (6) Gout: No gout flare at present. - Continue feboxostat (7) Neuropathy: Unclear cause. - Continue gabapentin & duloxetine (8) History of DVT (deep vein thrombosis): Episode of DVT 10 yrs ago s/p melanoma removal. He is no longer on anticoagulation. - Standard DVT prophylaxis - Heparin 5000 units Q12h Subjective Doing well. No major complaints this morning. Review of Systems Review of Systems: All systems reviewed & are unremarkable except as noted in HPI & below Physical Exam Constitutional: WD/WN, vitals as above Eyes: PERRL, conjunctivae normal, anicteric sclerae EOM intact bilaterally; no conjunctival abnormality ENMT: external ear and nose normal, oropharynx normal Neck: trachea midline, no thyromegaly normal visual inspection Respiratory: normal respiratory effort, lungs clear to auscultation no respiratory distress Cardiovascular: RRR, no murmur, no edema Extremities: + AV fistula (+ bruit) Gastrointestinal (Abdomen): normal bowel sounds, soft, nontender, no hepatosplenomegaly Inspection/Auscultation: abdomen normal to inspection; abdomen not distended Musculoskeletal: no cyanosis or clubbing, extremities motor strength 5/5 Skin: no rashes, warm and dry Neurologic: moves all extremities and awake; not confused Psychiatric: Orientation: alert, oriented to person and cooperative Results & Data Vital Signs (Past 12 Hours) Vital Signs Temp Pulse Resp BP Pulse Ox 11/13/18 10:58 36.7 C 56 L 19 146/90 H 93 11/13/18 07:52 36.4 C L 57 L 18 140/89 98 11/13/18 04:00 36.5 C 58 L 19 131/75 98 PG Care Time/CCT Total # of Minutes Spent Total Time Spent with Patient: Total time spent is greater than 50% in coordination of care (as documented) at patient's floor/unit and/or counseling patient:
[2018-11-13] MEDS: SIMVASTATIN 40 MG TAB PO SCH (19:54)
[2018-11-14] MEDS: SODIUM CHLORIDE 0.9% 1000ML 1,000 ML IV SCH (01:42)
[2018-11-14 07:08] LABS: BUN Creatinine Ratio 10.3 (10-20); Calcium 11.3 mg/dl (8.5-10.1); Creatinine Clr Calc Pharmacy 11.6 ml/min; Est GFR (African American) 6.5; Est GFR (Non-African American) 5.6; Magnesium 2.2 mg/dl (1.8-2.4); Potassium 5.1 mmol/L (3.5-5.1)
[2018-11-14] MEDS: GABAPENTIN 300 MG CAP PO SCH (08:20)
[2018-11-14] MEDS: FEBUXOSTAT 40 MG TABLET PO SCH (08:20)
[2018-11-14] MEDS: PYRIDOXINE HCL 50 MG TAB PO SCH (08:20)
[2018-11-14] MEDS: DULOXETINE HCL 20 MG CAP PO SCH (08:20)
[2018-11-14] MEDS: HEPARIN SOD 5,000 UNIT/0.5 ML VIAL SQ SCH (08:21)
[2018-11-14] MEDS: FOLIC ACID 1 MG TAB PO SCH (08:21)
[2018-11-14] MEDS: PANTOprazole 40 MG TAB PO SCH (08:21)
[2018-11-14] MEDS: CYANOCOBALAMIN 500 MCG TABLET (VITAMIN B-12) PO SCH (08:21)
--- NOTE | 2018-11-14 10:11 | Progress Note ---
DATE: 11/14/2018 SUBJECTIVE: Mr. Prado says that he is feeling relatively well, but still a bit fatigued. He says that he has no more fatigued than usual. He was admitted to the hospital after abnormal laboratory work was reviewed by others and a concern raised about the level of his serum creatinine which is a bit higher than it had been. Otherwise, he has not had any specific uremic symptomatology other than fatigue. He has had no periods of confusion. He has been able to perform his work, although he does fatigue late in the day and feels that he has to take a nap. He has had no chest pain. He has had no significant shortness of breath. He has had no edema. He does have a history of a peripheral neuropathy. He has been taking gabapentin. He takes 600 mg 3 times a day. That dose has been gradually decreased. His gabapentin blood level is significantly elevated. The etiology of his chronic renal failure is likely due to chronic glomerulonephritis. He has had an elevated angiotensin converting enzyme level in the past. He has also been prone to hypercalcemia. He was briefly treated with a course of corticosteroids about 1-2 years ago. His angiotensin converting enzyme level did return to normal. However, nothing else changed. The other indications that he has sarcoidosis have not been present, although he does have some multiple pulmonary nodules that have been extensively worked up in the past and most recently. He is on the active transplant list at [facility]. He has recently had both urologic and pulmonary consults done and they felt that there was nothing that would prohibit him from being on the active transplant list. At least 2 potential living related donors have come forward. OBJECTIVE: GENERAL: On physical examination at the current time, Mr. Prado looks relatively well and certainly not acutely ill and not particularly chronically ill. He is obviously overweight. VITAL SIGNS: His blood pressure 151/88, his pulse 58 and regular, respiratory rate 18, his oxygen saturation is 97% on room air. SKIN: Shows normal skin turgor. There is no rash or infiltrative skin disease. He has scars from prior surgical procedures, particularly a scar on the back of his left calf from the removal of a malignant melanoma. He also has a left wrist scar from the creation of his AV fistula which is functioning well. He has no palpable lymphadenopathy. HEAD: Normal. EYES: Grossly normal. The ocular fundi were not examined. EARS, NOSE, MOUTH AND THROAT: All unremarkable. His oral mucous membranes are moist. NECK: Supple. There is no jugular venous distention, carotid bruit or thyromegaly. CHEST: Clear to auscultation. CARDIAC: Shows a regular rhythm. S1 and S2 are normal. I hear no murmur or gallop. ABDOMEN: Still somewhat obese, but nontender. There is no organomegaly or mass. Bowel sounds are normal. EXTREMITIES: Show no cyanosis, clubbing or peripheral edema. His left forearm AV fistula is functioning well. NEUROLOGIC: Consistent with a mild sensory neuropathy involving his distal lower extremities. No other focal signs are noted. He has no asterixis. PERTINENT LABORATORY WORK: From today shows a hemoglobin of 11.0 with a hematocrit of 32.1. Red cell indices are normal. His white count is 6140 with an essentially normal differential. His platelet count 146,000. His clinical chemistries show a sodium of 141 mmol/L, potassium 5.1 mmol/L, chloride 109 mmol/L, and CO2 content 24 mmol/L. His anion gap is 8. His BUN is 97. His creatinine is 9.34. His serum calcium is down to 11.3. His phosphate is 7.0. His serum albumin measured shortly before admission was 3.6 g/dL. ASSESSMENT: Mr. Prado has advanced chronic renal disease, probably stage V. His only current symptom is fatigue. That may be contributed to by his gabapentin level. Nonetheless, I do not see any immediate indication for dialysis. I discussed that with him at length. RECOMMENDATIONS: He is in the midst of collecting a 24-hour urine and I would recommend that that be completed. He can then be discharged on his usual medications. Losartan can be held. To what extent that may be contributing to his current symptomatology and serum creatinine is difficult to assess. Obviously even with the advanced degree of his chronic renal disease, there is still some suggestion that it may be beneficial in preventing the continued decline in his renal function at least in the short term now. I do not think it is contributing to a great extent on his symptomatology. It has controlled his blood pressure and slowed the progression of his renal disease as it would be expected to do so. He already has a scheduled appointment with me later this week. I do not think there is any indication for further hospitalization. Thank you for involving us in his care.
--- NOTE | 2018-11-14 12:47 | Discharge Summary ---
Date of Service November 14, 2018 Admission HPI Per Admitting Provider 57 year old male with a past medical history of HTN, HLD, DVT (10 yrs ago, no longer on anticoagulation), Neuropathy, Gout, CKD, possible Sarcoidosis, that presents due to abnormal lab results. Patient had recent labwork drawn prior to scheduled appt with Dr Pablo. He was notified today that he should be evaluated at the [facility] ED. Patient reports general worsening fatigue but is otherwise asymptomatic. He has never had dialysis, however, He did have a fistula placed in May. He reports frequent urination in small amounts however this is his baseline . He denies fevers, chills, chest pain, palpitation, edema, presyncope, syncope. In the ED, patient was found to be afebrile, normotensive, Hb 11 ( baseline 10- 12) K 5.2-->5.7 ( baseline 4-6), Cr 9.66 rising from 4.7 -5.6 in Dec 2017 to 6.7-8.2 from Jul-September 2018, Ca 12.7-->13.3, phos 8.4. He was given 1L NS in the ED. Principal Diagnosis Acute kidney injury in the setting of CKD stage V Discharge Exam Constitutional WD/WN, vitals as above Eyes PERRL, conjunctivae normal, anicteric sclerae ENMT external ear and nose normal, oropharynx normal Neck trachea midline, no thyromegaly Respiratory normal respiratory effort, lungs clear to auscultation Cardiovascular RRR, no murmur, no edema Gastrointestinal (Abdomen) normal bowel sounds, soft, nontender, no hepatosplenomegaly Musculoskeletal Extremities: extremities normal to inspection; no cyanosis and no clubbing Skin no rashes, warm and dry Neurologic moves all extremities and awake; no focal motor deficits Psychiatric A+Ox3, euthymic affect Discharge Data Allergies Allergy/AdvReac Type Severity Reaction Status Date / Time allopurinol Allergy Unknown Rash Verified 11/12/18 17:44 Penicillins Allergy Unknown Unknown Verified 11/12/18 17:44 Consultations Nephrology Ordered Studies Chest x-ray Hospital Course (1) Acute kidney injury superimposed on CKD: On admission, Cr was 9.66; up from 6.7 - 8.2 in Jul - September 2018. Has fistula in place that is now mature, but had never required dialysis. Unknown cause of his CKD, though chronic glomerulonephritis is suspected per Dr. Pablo's outpatient notes. He had no evidence of infection on his urinalysis He received IV fluids he had his creatinine remained stable at 9.3 by the day of discharge He was not volume overloaded, he was not uremic, he is making urine, he is not acidotic His only symptom was fatigue which is likely due to excessive dosing of gabapentin in the setting of renal failure-gabapentin was reduced to 600 mg p.o. twice daily His losartan was discontinued He was seen by his primary cement based materials pump tender on the day of discharge and felt to be stable for discharge to home with close follow-up as an outpatient as planned at the end of the week Of note, the patient reported urinary frequency worsening over the last several weeks-a post void residual bladder scan was performed on the day of discharge after he voided 250 mL's of urine-the postvoid residual was only 13 mL's and therefore urinary retention is not playing a role in his acute kidney injury (2) Hypercalcemia: No recent h/o exogenous calcium or vitamin D use. Patient had not yet started Phos-Lo, so this is not a factor. Has a questionable history of sarcoidosis (prior high SCOTT level, but no biopsy). - Per nephrology, checking PTHrp, serum SCOTT, SPEP/UPEP-all pending at the time of discharge He was recently seen by pulmonology and the records of this were reviewed- thought to have had possible old or inactive sarcoidosis and no further work-up needed - Holding PhosLo, Tums/Maalox, or any other calcium-containing medication. - Received pamidronate the morning of 11/13; calcium was down to 11.3 on the day of discharge -Continue to follow as an outpatient (3) Hyperkalemia: K+ was 5.7 on admission; not significantly higher than prior months. Due to CKD. His potassium is down to 5.1 on the day of discharge -He should maintain a low potassium diet after discharge Follow as an outpatient (4) Neuropathy: Unclear cause. - Continue gabapentin but decrease dose to 600 mg p.o. twice daily as this may be contributing to fatigue in the setting of worsening renal function -Continue duloxetine (5) Gout: No gout flare at present. - Continue feboxostat (6) History of DVT (deep vein thrombosis): Episode of DVT 10 yrs ago s/p melanoma removal. He is no longer on anticoagulation. - Standard DVT prophylaxis - Heparin 5000 units Q12h was provided (7) GERD (gastroesophageal reflux disease): Continue PPI (8) Hypertension: BP high-normal while admitted On losartan as outpatient. - Holding losartan for LORENZO and hyperK+-continue to not take this after discharge as per nephrology recommendations No other medications were started during this admission -Follow blood pressure as an outpatient with close PCP follow-up later this week Total Time Total Time Spent Total Time Spent (In Minutes): Greater than 30 minutes Total Time Includes: Examination of the Patient, Discharge Planning, Medication Reconciliation and Communication With Other Providers (Nephrology-Dr. Pablo) Discharge Plan Discharge Items Patient Disposition: Home - Self-Care Reason For Visit: ACUTE ON CKD Discharge Diagnosis: Acute kidney injury on chronic kidney disease stage V Condition: Good Discharge Goals: Diagnostic testing, Improve disease control, Learn about illness and Therapeutic intervention Activity: Resume your previous activity Bathing: No limitations Exercise/Sports: As tolerated Driving/Machine Use: No limitations Non-emergency contact: Primary Care Provider and Sprinkling System Irrigator Call non-emergency contact if: you have any medication questions and your symptoms worsen Follow-up/Referrals: Lan Pablo MD [Primary Care Provider] - Diet: Low Potassium (2gm) and Low Sodium (2gm) Addtl Provider Instructions: You were admitted with worsening kidney failure and given IV fluids. Your kidney function remained stable with a creatinine around 9. You were seen by your cement based materials pump tender and it was deemed safe for you to be discharged home with close follow-up later this week as originally planned. Your losartan was discontinued, and your gabapentin was reduced to 600 mg twice daily. Your potassium pill has also been discontinued. Prescriptions: Continued omeprazole 40 mg Capsule,Delayed Release(Dr/Ec) 40 mg PO QAM RF: 0 simvastatin 40 mg Tablet 40 mg PO QPM RF: 0 pyridoxine (vitamin B6) [Vitamin B-6] 100 mg Tablet 100 mg PO QAM RF: 0 duloxetine 20 mg Capsule,Delayed Release(Dr/Ec) 20 mg PO QAM RF: 0 Uloric 80 mg Tablet 80 mg PO QAM RF: 0 cyanocobalamin (vitamin B-12) 1,000 mcg Capsule 1,000 mcg PO QAM RF: 0 Folbic 2.5-25-2 mg tablet 1 tab PO QAM RF: 0 Changed gabapentin 300 mg capsule 600 mg PO BID Qty: 0 RF: 0 Discontinued potassium citrate 10 mEq (1,080 mg) Tablet Extended Release 1,080 mg PO BID RF: 0 losartan 100 mg Tablet 100 mg PO QAM RF: 0 calcium acetate 667 mg capsule 1,334 mg PO TIDM RF: 0 Stand-Alone Forms: [facility] Discharge Orders: Discharge Order (Routine); Ordered 11/14/18 Ordered By: Aniya Zafar Admission Data Admit Date/Time: 11/12/18 20:45 Attending Provider: Aniya Zafar Admit Provider: Yovani Pizraro Primary Care Provider: Lan Pablo Other Providers: Saul Thornton Service: Telemetry Other Interventions: Discharge Summary Assessment (RN) Last Done: 11/14/18 13:05 Pending Studies at Discharge: Yes Studies:: SPEP, UPEP, SCOTT level DC Date/Time DO NOT enter until pt leaves facility: 11/14/18 14:41
[2018-11-14] MEDS ORDERED: GABAPENTIN 300 MG CAP PO SCH (21:00)
[2018-11-19 02:19] LABS: Angiotensin Converting Enzyme 145 U/L (9-67); PTH Related Protein 37 pg/mL (14-27)
--- NOTE | 2018-11-23 01:58 | History & Physical Report ---
Date of Service November 23, 2018 The patient was seen and examined on November 12, 2018. This is an addendum note for billing purposes only, since original note was not done in PG format. Please refer to the original note for the full H&P. History of Present Illness Primary Care Provider: Lan Pablo MD Allergies Allergy/AdvReac Type Severity Reaction Status Date / Time allopurinol Allergy Unknown Rash Verified 11/12/18 17:44 Penicillins Allergy Unknown Unknown Verified 11/12/18 17:44 Home Medications Home Medications Medication Instructions Recorded Confirmed Type Uloric 80 mg PO QAM 06/22/18 11/12/18 History cyanocobalamin (vitamin B-12) 1,000 mcg PO QAM 06/22/18 11/12/18 History duloxetine 20 mg PO QAM 06/22/18 11/12/18 History omeprazole 40 mg PO QAM 06/22/18 11/12/18 History pyridoxine (vitamin B6) [Vitamin 100 mg PO QAM 06/22/18 11/12/18 History B-6] simvastatin 40 mg PO QPM 06/22/18 11/12/18 History Folbic 1 tab PO QAM 11/12/18 11/12/18 History gabapentin 600 mg PO BID #0 cap 11/14/18 11/12/18 Rx Past Med/Surg History Medical History Chronic kidney disease (Acute) Deep vein blood clot of left lower extremity S/P LEFT LEG SURGERY (EXCISION OF MELANOMA LEFT LEG) 10 YEARS AGO. Gout Hyperlipidemia Hypertension Sarcoidosis Sleep apnea CPAP Surgical History History of melanoma excision History of tonsillectomy History of tooth extraction Social History Preferred Language: Turkmen Communication Ability: Effective Beliefs That Will Affect Care: None marital status: Current Living Situation: Spouse Feels Safe at Home: Yes Smoking Status: Never smoker Second Hand Exposure: No Hx Alcohol Use: No Hx Substance Use: No Code Status & VTE Plan VTE Prophylaxis Plan VTE Prophylaxis will be ordered: Yes Supervising Physician Co-Signing Physician Notes Attending addendum: I have physically seen this patient, have supervised the medical residents activities, and agree with the H&P unless as otherwise noted. Assessment and Plan: Acute kidney injury on CKD- Creatinine today 9.78, with baseline 4.7-5.6 since 12/2017. Given normal saline 1 L in the ED. Continue NSS at 100 mils per hour. Hold losartan. Repeat laboratories in a.m. Consult nephrology. Hypercalcemia- Calcium level 13.3 upon admission. Questionable diagnosis of sarcoidosis in the past. NSS at 100 mils per hour as noted above. Give pamidronate 60 mg IV x1. Follow serial laboratories in the a.m. Remainder of orders notations as noted. PG Care Time/CCT Total # of Minutes Spent Total Time Spent with Patient: Total time spent is greater than 50% in coordination of care (as documented) at patient's floor/unit and/or counseling patient:
== END 2018-11-14 14:41 | disposition home or self-care (01) | DRG 683 ==
LOC: ED 16:24 → 2E 20:45 → SUATTDRO 20:45 → 2E 21:21 → 2S 11-13 11:55
DX: E83.52 Hypercalcemia; K21.9 Gastro-esophageal reflux disease without esophagitis; N03.9 Chronic nephritic syndrome with unspecified morphologic changes; E66.9 Obesity, unspecified; G62.9 Polyneuropathy, unspecified; N17.9 Acute kidney failure, unspecified; Z86.718 Personal history of other venous thrombosis and embolism; Z88.0 Allergy status to penicillin; M10.9 Gout, unspecified; I12.0 Hypertensive chronic kidney disease with stage 5 chronic kidney disease or end stage renal disease; D86.9 Sarcoidosis, unspecified; N18.5 Chronic kidney disease, stage 5

== ENCOUNTER 2018-12-27 11:22 | Inpatient (IN) ==
--- NOTE | 2018-12-27 11:57 | Emergency Department Note ---
History of Present Illness General Chief complaint: Leg Injury/Pain Stated complaint: LEFT LEG PAIN Time Seen by Provider: 12/27/18 11:30 History of Present Illness Maximum Pain Intensity: 5 This patient is a 58-year-old male who presents to the emergency department with complaints of increased left lower extremity edema and erythema for the last several days. The patient was seen in the emergency department 2 days ago. He was diagnosed with cellulitis. He was put on Keflex, which he has been taking as prescribed with no improvement. Patient denies any chest pain. He does feel short of breath, however this is not new. The patient has been on a prednisone taper for a flare of his sarcoidosis. He reports that he typically retains fluid while taking the medication. He denies any fever or chills. No known injury to the leg. Home Medications Home Medications Medication Instructions Recorded Confirmed Type cyanocobalamin (vitamin B-12) 1,000 mcg PO QAM 06/22/18 12/27/18 History duloxetine 20 mg PO QAM 06/22/18 12/27/18 History febuxostat [Uloric] 80 mg PO QAM 06/22/18 12/27/18 History omeprazole 40 mg PO QAM 06/22/18 12/27/18 History simvastatin 40 mg PO QPM 06/22/18 12/27/18 History Folbic 1 tab PO QAM 11/12/18 12/27/18 History gabapentin 600 mg PO BID #0 cap 11/14/18 12/27/18 Rx furosemide 80 mg tablet 80 mg PO .COMPLEX tab 12/22/18 12/27/18 History prednisone 20 mg tablet 20 mg PO DAILY 12/22/18 12/27/18 History pyridoxine (vitamin B6) 50 mg 50 mg PO DAILY tab 12/22/18 12/27/18 History tablet calcium acetate 667 mg PO BID 12/25/18 12/27/18 History cephalexin [Keflex] 250 mg PO DAILY #10 cap 12/25/18 12/27/18 Rx prednisone 50 mg PO DAILY 12/25/18 12/27/18 History Allergies Allergy/AdvReac Type Severity Reaction Status Date / Time allopurinol Allergy Unknown Rash Verified 12/27/18 11:56 Penicillins Allergy Unknown Unknown Verified 12/27/18 11:56 Past Med/Surg History Medical History Hyperlipidemia (Chronic) End stage renal disease (Chronic) Chronic kidney disease (Acute) Deep vein blood clot of left lower extremity S/P LEFT LEG SURGERY (EXCISION OF MELANOMA LEFT LEG) 10 YEARS AGO. Gout Hyperlipidemia Hypertension Sarcoidosis Sleep apnea CPAP Surgical History History of melanoma excision History of tonsillectomy History of tooth extraction Family History Other Cancer Lung disease Social History Preferred Language: Turkmen Communication Ability: Effective Refractory Specialist Required: No Beliefs That Will Affect Care: None marital status: Current Living Situation: Spouse Other Information That Helps Us Care for You: No Feels Safe at Home: Yes Safety Concerns: Feels Safe At This Time Smoking Status: Never smoker Do You Dip or Chew Tobacco: No Second Hand Exposure: No Tobacco Cessation Education Requested by Patient: No Hx Alcohol Use: No Hx Substance Use: No Review of Systems A total of 10 systems reviewed and were otherwise negative Physical Exam Vital Signs Vital Signs - 24 hr 12/27/18 11:23 12/27/18 13:22 Temperature 36.4 C L Temperature Source Oral Sepsis Recent Fever Within 48 Hours No Sepsis New/Unexplained Change in Mental Status No Sepsis Action Taken by Nursing No Action Required Pulse Rate 75 Pulse Rate [Apical] 88 Respiratory Rate 18 16 Blood Pressure 172/90 H Blood Pressure [Left Arm] 136/86 Blood Pressure Mean 117 Blood Pressure Mean [Left Arm] 102 Pulse Oximetry 100 97 Oxygen Delivery Method Room Air Room Air Constitutional WD/WN, vitals as above Eyes EOM intact bilaterally ENMT external ear and nose normal, oropharynx normal Neck trachea midline Respiratory normal respiratory effort, lungs clear to auscultation Cardiovascular RRR, no murmur, no edema Gastrointestinal (Abdomen) normal bowel sounds, soft, nontender, no hepatosplenomegaly Musculoskeletal Diffuse edema and erythema noted particular to the left lower extremity distal to the knee. Significant enlargement of the left lower extremity when compared to the right lower extremity. DP pulse +2. Dorsiflexion and plantarflexion intact. Seeping noted of the skin of the left lower extremity. Skin no rashes, warm and dry Neurologic Alert and oriented x3. No focal motor deficits. Psychiatric Acting appropriately Course Patient was seen and examined Vital signs including blood pressure were reviewed medications list was verified with patient Labs were obtained, and a saline lock was established Imaging was performed and review Upon reassessment, the patient was resting comfortably. We discussed his work- up. He voiced understanding. He was in agreement with possible admission to the hospital. The case was discussed with my supervising physician in addition to pharmacy. It was subsequently discussed with the [facility] hospitalist group that kindly agreed to evaluate the patient for possible further inpatient management. Administered Medications Acetaminophen (Tylenol) 650 mg PO Q4H PRN PRN Reason: Pain or Fever Stop: 01/26/19 16:49 Last Admin: 12/28/18 06:03 Dose: 650 mg Documented by: [id number] Calcium Acetate (Phoslo) 667 mg PO BIDM [facility] Stop: 01/26/19 16:59 Last Admin: 12/28/18 08:02 Dose: 667 mg Documented by: [id number] Admin: 12/27/18 18:10 Dose: Not Given Documented by: [id number] Cyanocobalamin (Vitamin B-12) 1,000 mcg PO QAM [facility] Stop: 01/27/19 08:59 Last Admin: 12/28/18 08:05 Dose: 1,000 mcg Documented by: [id number] Duloxetine HCl (Cymbalta) 20 mg PO QAM [facility] Stop: 01/27/19 08:59 Last Admin: 12/28/18 08:03 Dose: 20 mg Documented by: [id number] Febuxostat (Uloric) 80 mg PO QAM [facility] Stop: 01/27/19 08:59 Last Admin: 12/28/18 08:05 Dose: 80 mg Documented by: [id number] Gabapentin (Neurontin) 600 mg PO BID [facility] Stop: 01/26/19 20:59 Last Admin: 12/28/18 08:04 Dose: 600 mg Documented by: [id number] Admin: 12/27/18 20:30 Dose: 600 mg Documented by: [id number] Heparin Sodium (Porcine) (Heparin Sodium (Porcine)) 5,000 units SQ Q12H [facility] Stop: 01/26/19 20:59 Last Admin: 12/28/18 08:03 Dose: 5,000 units Documented by: [id number] Cosigned by: [id number] Admin: 12/27/18 20:31 Dose: 5,000 units Documented by: [id number] Cosigned by: [id number] Ceftaroline Fosamil 200 mg/ (Sodium Chloride) 256.6667 mls @ 250 mls/hr IV Q12H [facility]; Protocol Stop: 01/07/19 05:59 Last Infusion: 12/28/18 07:31 Dose: 0 mls/hr Documented by: [id number] Admin: 12/28/18 06:04 Dose: 250 mls/hr Documented by: [id number] Miscellaneous (Order Awaiting Action) 1 ea N/A QS [facility] Stop: 01/27/19 00:00 Last Admin: 12/28/18 08:02 Dose: Not Given Documented by: [id number] Admin: 12/28/18 00:25 Dose: Not Given Documented by: [id number] Pantoprazole Sodium (Protonix) 40 mg PO QAM [facility] Stop: 01/27/19 08:59 Last Admin: 12/28/18 08:04 Dose: 40 mg Documented by: [id number] Pyridoxine HCl (Vitamin B-6) 50 mg PO DAILY [facility] Stop: 01/27/19 08:59 Last Admin: 12/28/18 08:05 Dose: 50 mg Documented by: [id number] Simvastatin (Zocor) 40 mg PO QPM [facility] Stop: 01/26/19 20:59 Last Admin: 12/27/18 20:31 Dose: 40 mg Documented by: [id number] Discontinued Medications Ceftaroline Fosamil 200 mg/ (Sodium Chloride) 256.6667 mls @ 270 mls/hr IV NOW ONE Stop: 12/27/18 14:57 Last Infusion: 12/27/18 15:44 Dose: 0 mls/hr Documented by: [id number] Admin: 12/27/18 14:24 Dose: 270 mls/hr Documented by: [id number] Medical Decision Making Medical Records Attestation: I reviewed the patient's medical records. Home Medications Current Medication List: was personally reviewed by me Laboratory Data Attestation: I reviewed the patient's lab results. Result diagrams: 12/28/18 07:27 12/28/18 07:27 Lab Results 12/27/18 12/27/18 12/27/18 Range/Units 12:05 12:05 12:05 WBC 7.71 (4.8-10.8) K/uL RBC 3.27 L (4.7-6.1) M/uL Hgb 10.5 L (14.0-18.0) g/dL Hct 31.4 L (42-52) % MCV 96.0 (80-100) fL MCH 32.1 (25-34) pg MCHC 33.4 (32-36) g/dL RDW Std Deviation 49.1 H (36.4-46.3) fL RDW Coeff of Theresa 13.9 (11.5-14.5) % Plt Count 123 L (130-400) K/uL MPV 10.2 (7.4-10.4) fL Immature Gran % (Auto) 0.3 % Neut % (Auto) 79.3 % Lymph % (Auto) 6.1 % [place] % (Auto) 9.6 % Eos % (Auto) 4.4 % Baso % (Auto) 0.3 % Immature Gran # (Auto) 0.02 (0.00-0.02) K/uL Neut # (Auto) 6.12 (1.4-6.5) K/uL Lymph # (Auto) 0.47 L (1.2-3.4) K/uL [place] # (Auto) 0.74 H (0.11-0.59) K/uL Eos # (Auto) 0.34 (0-0.5) K/uL Baso # (Auto) 0.02 (0-0.2) K/uL PT 10.0 (9.0-12.0) Seconds INR 1.0 (0.9-1.1) Sodium 141 (136-145) mmol/L Potassium 5.1 (3.5-5.1) mmol/L Chloride 113 H (98-107) mmol/L Carbon Dioxide 17 L (21-32) mmol/L Anion Gap 11.0 (3-11) BUN 140 H (7-18) mg/dl Creatinine 9.99 H* (0.6-1.4) mg/dl Est Cr Clr Drug Dosing 11.3 ml/min Est GFR ( Amer) 6.0 Est GFR (Non-Af Amer) 5.1 BUN/Creatinine Ratio 14.1 (10-20) Glucose 88 (70-99) mg/dl Calcium 6.6 L (8.5-10.1) mg/dl Imaging Data Attestation: I personally reviewed and interpreted this imaging study as follows: Radiologist's Impression: CT abdomen and pelvis without contrast IMPRESSION: 1. There are no acute infectious or inflammatory findings in the abdomen or pelvis. 2. Dermal thickening and soft tissue induration is noted within the abdominal pannus. Correlate clinically for evidence of a mild cellulitis. 3. Additional findings as above. Electronically signed by: Mark Rivas M.D. 12/27/2018 12:53 PM Dictated: 12/27/18 1234 Transcribed: 12/27/[address] [facility] Narrative Differential diagnosis: Infectious etiology such as cellulitis, DVT, intra-a bdominal mass, dependent edema, among others This patient is a 58-year-old male that returns to the emergency department complaining of no improvement in his left lower extremity edema and erythema. On exam, his left lower extremity was erythematous and warm to touch. Clinically, this appears to be consistent with a cellulitis. Labs reveal renal disease that is not new. Potassium is stable. The patient was seen in the emergency department 2 days ago. An ultrasound was performed. No DVT was noted. Today, a CT of the abdomen and pelvis was performed. No abnormalities were noted. The etiology of his left lower extremity edema is unclear, however it appears to be cellulitic in nature that is not responding to oral antibiotics. For this reason, hospitalist evaluation was felt to be warranted. They will evaluate the patient for possible inpatient management Impression & Plan Cellulitis Discharge Plan Visit Data *Final* Discharge Date/Time: 12/27/18 16:37 Chief Complaint: Leg Injury/Pain Stated Complaint: LEFT LEG PAIN ED Provider: Anibal Cason ED Midlevel Provider: Valencia Stacy Discharge Problem: Cellulitis Patient Disposition: Admitted As Inpatient Discharge Instructions Interventions: ED Discharge Assessment Last Done: 12/27/18 16:37
[2018-12-27 12:13] LABS: Hematocrit (blood only) 31.4 % (42-52); Hemoglobin 10.5 g/dL (14.0-18.0); Mean Corpuscular Hgb Conc 33.4 g/dL (32-36); Mean Platelet Volume 10.2 fL (7.4-10.4); Platelet Count 123 K/uL (130-400); RDW Coefficient of Variation 13.9 % (11.5-14.5); RDW Standard Deviation 49.1 fL (36.4-46.3); Red Blood Count 3.27 M/uL (4.7-6.1); White Blood Count 7.71 K/uL (4.8-10.8)
[2018-12-27 12:33] LABS: Basophils # (auto) 0.02 K/uL (0-0.2); Basophils % (auto) 0.3 %; Eosinophils # (auto) 0.34 K/uL (0-0.5); Eosinophils % (auto) 4.4 %; Immature Granulocytes # (auto) 0.02 K/uL (0.00-0.02); Immature Granulocytes % (auto) 0.3 %; Lymphocytes # (auto) 0.47 K/uL (1.2-3.4); Lymphocytes % (auto) 6.1 %; Monocytes # (auto) 0.74 K/uL (0.11-0.59); Monocytes % (auto) 9.6 %; Neutrophils # (auto) 6.12 K/uL (1.4-6.5); Neutrophils % (auto) 79.3 %
[2018-12-27 12:45] LABS: Creatinine Clr Calc Pharmacy 11.3 ml/min; Est GFR (Non-African American) 5.1
[2018-12-27 12:46] LABS: BUN Creatinine Ratio 14.1 (10-20); Calcium 6.6 mg/dl (8.5-10.1); Potassium 5.1 mmol/L (3.5-5.1)
--- NOTE | 2018-12-27 12:55 | CT Scan Report ---
CT SCAN OF THE ABDOMEN AND PELVIS WITHOUT IV CONTRAST CLINICAL HISTORY: Left lower extremity edema. COMPARISON STUDY: Abdominal CT dated 11/28/2018. TECHNIQUE: CT scan of the abdomen and pelvis is performed from the lung bases to the proximal femora. Images are reviewed in the axial, sagittal, and coronal planes. IV contrast was not administered for this examination. A dose lowering technique was utilized adhering to the principles of ALARA. FINDINGS: Lung bases: The heart is top normal in size and without pericardial effusion. There are coronary radha ry calcifications. Calcified mediastinal and hilar lymph nodes are noted. There is no airspace consol idation or pleural effusion. Numerous calcified granulomas are present at the lung bases. A hernia is noted. Liver: The unenhanced liver is normal in size, contour, and attenuation. There is no intrahepatic pablito iary ductal dilatation. Gallbladder: Unremarkable. Spleen: Normal in size and attenuation. Pancreas: The unenhanced pancreas is grossly unremarkable. Adrenal glands: Unremarkable. Kidneys: The unenhanced kidneys are atrophic and without hydronephrosis. There are no renal calculi i dentified. A 2.3 cm cyst is noted in the interpolar left kidney. Abdominal vasculature: The abdominal aorta is normal in course and caliber noting mild atheroscleroti c calcification. Bowel: No bowel obstruction is identified. The appendix is well-visualized and normal. Peritoneum: There is no intraperitoneal free air or abdominal ascites. There is a fat-containing umbi lical hernia. There is dermal thickening and mild induration seen within the abdominal pannus. Lymphadenopathy: There are shotty retroperitoneal lymph nodes. These are not pathologically enlarged by size criteria. Pelvic viscera: There is median lobe hypertrophy of the prostate gland. The bladder wall is mildly th ickened and trabeculated suggesting chronic outlet obstruction. Skeletal structures: The skeletal structures are osteopenic. Mild lumbosacral spondylosis is noted. N o lytic or blastic lesions are seen. IMPRESSION: 1. There are no acute infectious or inflammatory findings in the abdomen or pelvis. 2. Dermal thickening and soft tissue induration is noted within the abdominal pannus. Correlate clini anatoliy for evidence of a mild cellulitis. 3. Additional findings as above. Electronically signed by: Mark Rivas M.D. 12/27/2018 12:53 PM
[2018-12-27] MEDS ORDERED: CEFTAROLINE FOSAMIL ACETATE 200 MG in SODIUM CHLORIDE 0.9% 250 ML IV ONE (14:00)
--- NOTE | 2018-12-27 14:46 | History & Physical Report ---
Date of Service December 27, 2018 Assessment & Plan (1) Cellulitis of left leg: Failed outpatient treatment with Keflex. Continue Teflaro started in the ED. Dosage has been adjusted per renal function status. Infectious disease consultation. Present on Admission?: Yes (2) End stage renal disease: Consult nephrology. Serial labs Present on Admission?: Yes (3) Hyperlipidemia: Treated with statin therapy Present on Admission?: Yes (4) DVT prophylaxis: Low-dose Lovenox daily Present on Admission?: Yes History of Present Illness Chief Complaint: Left leg erythema, swelling, tenderness Primary Care Provider: Lan Pablo MD 58-year-old male with end-stage renal disease not currently on dialysis. He has chronic venous insufficiency and stasis dermatitis of both lower extremities. The left leg has become more swollen erythemic and tender over the past several days. He was in the ED on December 25 and received Keflex therapy and discharged to home. Venous Doppler at that time was negative. He has not improved and in fact his condition has worsened. He presents again today for further evaluation and will need to be admitted for IV antibiotic therapy. He has end-stage renal disease but has thus far refused dialysis. BUN is 140 and creatinine 9.9. Potassium 5.1. Nephrology consultation will be requested. He has been started on Teflaro therapy with dosage adjustment based on renal function. Infectious disease consultation has been requested. Allergies Allergy/AdvReac Type Severity Reaction Status Date / Time allopurinol Allergy Unknown Rash Verified 12/27/18 11:56 Penicillins Allergy Unknown Unknown Verified 12/27/18 11:56 Home Medications Home Medications Medication Instructions Recorded Confirmed Type cyanocobalamin (vitamin B-12) 1,000 mcg PO QAM 06/22/18 12/27/18 History duloxetine 20 mg PO QAM 06/22/18 12/27/18 History febuxostat [Uloric] 80 mg PO QAM 06/22/18 12/27/18 History omeprazole 40 mg PO QAM 06/22/18 12/27/18 History simvastatin 40 mg PO QPM 06/22/18 12/27/18 History Folbic 1 tab PO QAM 11/12/18 12/27/18 History gabapentin 600 mg PO BID #0 cap 11/14/18 12/27/18 Rx furosemide 80 mg tablet 80 mg PO .COMPLEX tab 12/22/18 12/27/18 History prednisone 20 mg tablet 20 mg PO DAILY 12/22/18 12/27/18 History pyridoxine (vitamin B6) 50 mg 50 mg PO DAILY tab 12/22/18 12/27/18 History tablet calcium acetate 667 mg PO BID 12/25/18 12/27/18 History cephalexin [Keflex] 250 mg PO DAILY #10 cap 12/25/18 12/27/18 Rx prednisone 50 mg PO DAILY 12/25/18 12/27/18 History Past Med/Surg History Medical History Chronic kidney disease (Acute) Deep vein blood clot of left lower extremity S/P LEFT LEG SURGERY (EXCISION OF MELANOMA LEFT LEG) 10 YEARS AGO. Gout Hyperlipidemia Hypertension Sarcoidosis Sleep apnea CPAP Surgical History History of melanoma excision History of tonsillectomy History of tooth extraction Family History Other Cancer Lung disease Social History Preferred Language: Togolese Communication Ability: Effective Beliefs That Will Affect Care: None marital status: Current Living Situation: Spouse Feels Safe at Home: Yes Smoking Status: Never smoker Second Hand Exposure: No Hx Alcohol Use: No Hx Substance Use: No Review of Systems Review of Systems: Constitutional-no fever or chills ENT-no blurred vision, no double vision, no epistaxis, no sore throat Respiratory-no cough, no wheezing, no shortness of breath Cardiac-no palpitations, no chest pain, no syncope GI-no nausea, vomiting, diarrhea, melena, hematochezia -no urinary retention, no urinary incontinence, no dysuria, no hematuria Musculoskeletal-no joint pain, no muscle tenderness. Increasing swelling, erythema, tenderness left lower extremity below the knee Skin-no bruising, no rashes, no pruritus. Chronic venous stasis dermatitis bilateral lower extremities Neuro-no isolated weakness, no paresthesia, no weakness Psych-no depression, no anxiety Physical Exam Physical Exam: General-alert and oriented x3, no fevers, no chills HEENT-head atraumatic and normocephalic, TMs intact bilaterally, pupils equal and reactive to light, extraocular muscles intact Neck-no lymphadenopathy or thyromegaly, trachea midline Chest-clear to auscultation percussion. No rales wheezing or rhonchi Cardiac-regular rate and rhythm, normal S1 and S2, no murmurs Abdomen-normal bowel sounds, nontender, no hepatosplenomegaly Extremities-no cyanosis, clubbing. Chronic venous stasis changes bilateral lower extremity below the knees with erythema and tenderness in the region of the dermatitis of the left lower extremity Neuro-cranial nerves II through XII intact, motor and sensory function within normal limits, strength symmetrical 5/5, no focal deficits Psych-normal affect, normal mood Results & Data Vital Signs (Past 12 Hours) Vital Signs Temp Pulse Pulse Resp BP BP Pulse Ox 12/27/18 13:22 88 16 136/86 97 12/27/18 11:23 36.4 C L 75 18 172/90 H 100 Laboratory Results 12/27/18 12:05 12/27/18 12:05 PG Care Time/CCT Total # of Minutes Spent Total Time Spent with Patient: Total time spent is greater than 50% in coordination of care (as documented) at patient's floor/unit and/or counseling patient:
[2018-12-27] MEDS ORDERED: ENOXAPARIN INJ 30 MG/0.3 ML SYR SQ SCH (16:50)
[2018-12-27] MEDS ORDERED: ALUMINUM/MAGNESIUM SUSP 30 ML UDC PO PRN (16:50)
[2018-12-27] MEDS ORDERED: ONDANSETRON INJ 2 MG/ML 2 ML VIAL IV PRN (16:50)
[2018-12-27] MEDS: CALCIUM ACETATE 667 MG CAP PO SCH (18:10)
[2018-12-27] MEDS: GABAPENTIN 600 MG TAB PO SCH (20:30)
[2018-12-27] MEDS: HEPARIN SOD 5,000 UNIT/0.5 ML VIAL SQ SCH (20:31)
[2018-12-27] MEDS: SIMVASTATIN 40 MG TAB PO SCH (20:31)
[2018-12-28] MEDS: ACETAMINOPHEN 325 MG TAB PO PRN ×2 (06:03→14:19)
[2018-12-28] MEDS: CEFTAROLINE FOSAMIL ACETATE 200 MG in SODIUM CHLORIDE 0.9% 250 ML IV SCH ×2 (06:04→18:19)
[2018-12-28 07:50] LABS: Basophils # (auto) 0.02 K/uL (0-0.2); Basophils % (auto) 0.3 %; Hemoglobin 10.2 g/dL (14.0-18.0); Immature Granulocytes # (auto) 0.02 K/uL (0.00-0.02); Immature Granulocytes % (auto) 0.3 %; Lymphocytes # (auto) 0.74 K/uL (1.2-3.4); Lymphocytes % (auto) 9.8 %; Mean Corpuscular Hgb Conc 32.9 g/dL (32-36); Mean Corpuscular Volume 97.8 fL (80-100); Mean Platelet Volume 10.1 fL (7.4-10.4); Monocytes # (auto) 0.26 K/uL (0.11-0.59); Monocytes % (auto) 3.4 %; Neutrophils % (auto) 82.2 %; Platelet Count 135 K/uL (130-400); RDW Coefficient of Variation 13.7 % (11.5-14.5); Red Blood Count 3.17 M/uL (4.7-6.1); White Blood Count 7.54 K/uL (4.8-10.8)
[2018-12-28] MEDS: CALCIUM ACETATE 667 MG CAP PO SCH ×2 (08:02→17:07)
[2018-12-28] MEDS: DULOXETINE HCL 20 MG CAP PO SCH (08:03)
[2018-12-28] MEDS: HEPARIN SOD 5,000 UNIT/0.5 ML VIAL SQ SCH ×2 (08:03→20:31)
[2018-12-28] MEDS: PANTOprazole 40 MG TAB PO SCH (08:04)
[2018-12-28] MEDS: GABAPENTIN 600 MG TAB PO SCH ×2 (08:04→20:32)
[2018-12-28] MEDS: CYANOCOBALAMIN 500 MCG TABLET (VITAMIN B-12) PO SCH (08:05)
[2018-12-28] MEDS: FEBUXOSTAT 40 MG TABLET PO SCH (08:05)
[2018-12-28] MEDS: PYRIDOXINE HCL 50 MG TAB PO SCH (08:05)
[2018-12-28 08:59] LABS: BUN Creatinine Ratio 13.4 (10-20); Creatinine Clr Calc Pharmacy 10.6 ml/min; Est GFR (African American) 5.5; Est GFR (Non-African American) 4.7; Potassium 5.2 mmol/L (3.5-5.1)
[2018-12-28] MEDS ORDERED: FUROSEMIDE 80 MG in SYRINGE 0 ML IV ONE (11:45)
[2018-12-28] MEDS: SODIUM BICARBONATE 650 MG TAB PO SCH ×2 (11:57→20:32)
[2018-12-28 12:13] LABS: Hepatitis B Surface Antibody Immune
[2018-12-28 12:23] LABS: Hepatitis B Surface Antigen Neg (Neg)
--- NOTE | 2018-12-28 12:46 | Nephrology Consultation ---
Date of Consultation December 28, 2018 Assessment & Plan (1) End stage renal disease: I had a long conversation with the patient today. We reviewed his recent medical history and laboratory findings. I discussed the plan of care with the patient's primary break out man, Dr. Pablo. Due to the advanced nature of the patient's kidney dysfunction, his multiple electrolyte and acid-base abnormalities, and significant fluid retention, initiation of hemodialysis is necessary at this time. I discussed the hemodialysis procedure. I contacted the outpatient hemodialysis clinic to alert them that the patient would need to start. I have asked case management to assist in arranging outpatient dialysis post discharge. Today viral hepatitis labs will be updated. I provided oral sodium bicarbonate supplementation. Av fistula will be assessed by the hemodialysis nurse. We will plan for 1st dialysis treatment tomorrow. Kirby is agreeable to this plan of care. Orders for the patient's 1st dialysis treatment tomorrow have been entered into the EMR and discussed with the dialysis nurse vacation sales advisor. In the interim, medications are appropriately dosed. The patient is on a renal diet. Dialysis has been ordered to assist with electrolyte abnormalities. This includes a low-potassium bath for hyperkalemia and calcium bath to enable correction of serum hypocalcemia. (2) Hyperphosphatemia: Calcium Acetate to per be provided with meals. Low phosphorus diet. (3) Hypercalcemia: Improved following recent hydration as well as prednisone therapy. This is consistent with suspected history of sarcoidosis. Serum calcium is actually low at this time following treatment suggestive of deficiency of Calcitriol associated with the patient's advanced chronic kidney disease. Hypocalcemia will be treated with dialysis. (4) Hyperkalemia: Importance of low-potassium diet reviewed. This is associated with the ongoing metabolic acidosis associated with renal deficiency. Both of these will be treated with hemodialysis tomorrow. In the interim, oral bicarbonate supplementation has been provided. (5) Sarcoidosis: There is no tissue diagnosis but the patient's clinical history is certainly suggestive of sarcoidosis affecting his kidneys. I suspect he has chronic interstitial nephritis associated with sarcoidosis versus chronic granuloma formation which has not been seen on his CT scan. The patient's abdominal CT scan obtained in the emergency department yesterday was reviewed today. History of Present Illness Reason for Consultation: CKD Requesting Physician: Pa Potter Attending Physician: Pa Potter History of Present Illness Mr. Kirby Prado is a 58-year-old male who is seen in consultation for evaluation of advanced kidney dysfunction. Patient has chronic kidney disease class 5. 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 Prior evaluation has been notable for elevated Juan Jose levels and hypercalcemia consistent with suspected sarcoidosis. There is never been a tissue diagnosis. Patient does have stigmata of granuloma formation on CT in several pulmonary lymph nodes. He has never had a kidney biopsy. His clinical history is suggestive of either chronic interstitial nephritis associated with sarcoidosis or granuloma formation. In the past his kidney function has improved following treatment with steroids. Hypercalcemia in the past has also been treated with steroids. Patient recently completed a prednisone taper. He stopped the medication on Wednesday. Unfortunately there was no improvement in his recent kidney numbers following this treatment. Patient has had a 20 pound weight gain in the past several weeks. He has had increasing lower extremity edema and recent pain and discomfort involving the left lower extremity. There appears to be a superficial cellulitis superimposed on chronic stasis changes. He has started treatment with Keflex following an ER evaluation on December 25. However symptoms progressed and he presented to the hospital yesterday for admission. Medical history is notable for history of lower extremity DVT. Patient also has a history of hypertension, a history of a melanoma removed from the left calf, history of nephrolithiasis, obstructive sleep apnea, osteoarthritis, and peripheral neuropathy. Kirby was admitted to [facility] in October with fatigue which was attributed to Gabapentin. Review of documentation from October of 2017 suggests that the patient did not have significant edema at that time. The patient confirms that he has had pronounced increasing lower extremity edema over the past several weeks. Kirby is actively listed for transplant at [facility] in [place]. He has had significant intentional weight loss in preparation for kidney transplant. He has 2 potential living donors ordered currently undergoing evaluation. He was open to defer dialysis until the preemptive transplant could be arranged. 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 A left radiocephalic AV fistula was placed by Dr. lupillo saleh in May of 2018. This fistula is mature for use. The patient was admitted to [facility] yesterday with laboratory studies which were notable for a serum creatinine greater than 10 milligrams/deciliter, BUN of 140, phosphorus is 7.9, serum calcium was 6.6 with an ionized calcium less than 1. Patient's PTH has been elevated at 500. Allergies Allergy/AdvReac Type Severity Reaction Status Date / Time allopurinol Allergy Unknown Rash Verified 12/27/18 11:56 Penicillins Allergy Unknown Unknown Verified 12/27/18 11:56 Home Medications Home Medications Medication Instructions Recorded Confirmed Type cyanocobalamin (vitamin B-12) 1,000 mcg PO QAM 06/22/18 12/27/18 History duloxetine 20 mg PO QAM 06/22/18 12/27/18 History febuxostat [Uloric] 80 mg PO QAM 06/22/18 12/27/18 History omeprazole 40 mg PO QAM 06/22/18 12/27/18 History simvastatin 40 mg PO QPM 06/22/18 12/27/18 History Folbic 1 tab PO QAM 11/12/18 12/27/18 History gabapentin 600 mg PO BID #0 cap 11/14/18 12/27/18 Rx furosemide 80 mg tablet 80 mg PO .COMPLEX tab 12/22/18 12/27/18 History prednisone 20 mg tablet 20 mg PO DAILY 12/22/18 12/27/18 History pyridoxine (vitamin B6) 50 mg 50 mg PO DAILY tab 12/22/18 12/27/18 History tablet calcium acetate 667 mg PO BID 12/25/18 12/27/18 History cephalexin [Keflex] 250 mg PO DAILY #10 cap 12/25/18 12/27/18 Rx prednisone 50 mg PO DAILY 12/25/18 12/27/18 History Patient History Medical History Hyperlipidemia (Chronic) End stage renal disease (Chronic) Chronic kidney disease (Acute) Deep vein blood clot of left lower extremity S/P LEFT LEG SURGERY (EXCISION OF MELANOMA LEFT LEG) 10 YEARS AGO. Gout Hyperlipidemia Hypertension Sarcoidosis Sleep apnea CPAP Surgical History History of melanoma excision History of tonsillectomy History of tooth extraction Family History Other Cancer Lung disease Social History Preferred Language: Bulgarian Communication Ability: Effective Appliance Installer Required: No Beliefs That Will Affect Care: None marital status: Current Living Situation: Spouse Other Information That Helps Us Care for You: No Feels Safe at Home: Yes Safety Concerns: Feels Safe At This Time Smoking Status: Never smoker Do You Dip or Chew Tobacco: No Second Hand Exposure: No Tobacco Cessation Education Requested by Patient: No Hx Alcohol Use: No Hx Substance Use: No Review of Systems Review of Systems: All systems reviewed & are unremarkable except as noted in HPI & below Physical Exam Constitutional: well developed and + obese; no acute distress Eyes: no scleral abnormality and no corneal abnormality ENMT: Mouth: no oral mucosal abnormality and oral mucous membranes not dry Neck: normal visual inspection and trachea midline Respiratory: normal respiratory effort; no respiratory distress Cardiovascular: Heart Sounds: normal S1 and normal S2; no murmur and no cardiac rub Extremities: + AV fistula Gastrointestinal (Abdomen): Percussion/Palpation: abdomen soft; abdomen nontender Musculoskeletal: Extremities: no cyanosis and no clubbing Skin: normal turgor; no rashes Neurologic: Motor/Sensory: + tremor and + asterixis Psychiatric: Orientation: alert and oriented x 3 Results & Data Vital Signs (Past 12 Hours) Vital Signs Temp Pulse Pulse Resp BP Pulse Ox 12/28/18 12:16 36.7 C 66 20 142/85 H 98 12/28/18 08:21 36.4 C L 76 18 176/98 H 97 12/28/18 07:34 75 12/28/18 04:33 75 12/28/18 04:02 36.7 C 78 16 155/92 H 97 Laboratory Results Laboratory Results - last 24 hr 12/27/18 12/27/18 12/27/18 12:05 12:05 17:14 WBC RBC Hgb Hct MCV MCH MCHC RDW Std Deviation RDW Coeff of Theresa Plt Count MPV Immature Gran % (Auto) 0.3 Neut % (Auto) 79.3 Lymph % (Auto) 6.1 [place] % (Auto) 9.6 Eos % (Auto) 4.4 Baso % (Auto) 0.3 Immature Gran # (Auto) 0.02 Neut # (Auto) 6.12 Lymph # (Auto) 0.47 L [place] # (Auto) 0.74 H Eos # (Auto) 0.34 Baso # (Auto) 0.02 Sodium 141 Potassium 5.1 Chloride 113 H Carbon Dioxide 17 L Anion Gap 11.0 BUN 140 H Creatinine 9.99 H* Est Cr Clr Drug Dosing 11.3 Est GFR ( Amer) 6.0 Est GFR (Non-Af Amer) 5.1 BUN/Creatinine Ratio 14.1 Glucose 88 Calcium 6.6 L Ionized Calcium Phosphorus 7.9 H Hep Bs Antigen Hep Bs Antibody Hep Bs Antibody, Quant Hep B Core IgM Ab 12/27/18 12/28/18 12/28/18 17:14 07:27 07:27 WBC 7.54 RBC 3.17 L Hgb 10.2 L Hct 31.0 L MCV 97.8 MCH 32.2 MCHC 32.9 RDW Std Deviation 49.0 H RDW Coeff of Theresa 13.7 Plt Count 135 MPV 10.1 Immature Gran % (Auto) 0.3 Neut % (Auto) 82.2 Lymph % (Auto) 9.8 [place] % (Auto) 3.4 Eos % (Auto) 4.0 Baso % (Auto) 0.3 Immature Gran # (Auto) 0.02 Neut # (Auto) 6.20 Lymph # (Auto) 0.74 L [place] # (Auto) 0.26 Eos # (Auto) 0.30 Baso # (Auto) 0.02 Sodium 142 Potassium 5.2 H Chloride 115 H Carbon Dioxide 13 L Anion Gap 14.0 H BUN 143 H Creatinine 10.70 H* D Est Cr Clr Drug Dosing 10.6 Est GFR ( Amer) 5.5 Est GFR (Non-Af Amer) 4.7 BUN/Creatinine Ratio 13.4 Glucose 81 Calcium 6.0 L Ionized Calcium 0.82 L Phosphorus Hep Bs Antigen Hep Bs Antibody Hep Bs Antibody, Quant Hep B Core IgM Ab 12/28/18 12/28/18 11:28 11:28 WBC RBC Hgb Hct MCV MCH MCHC RDW Std Deviation RDW Coeff of Theresa Plt Count MPV Immature Gran % (Auto) Neut % (Auto) Lymph % (Auto) [place] % (Auto) Eos % (Auto) Baso % (Auto) Immature Gran # (Auto) Neut # (Auto) Lymph # (Auto) [place] # (Auto) Eos # (Auto) Baso # (Auto) Sodium Potassium Chloride Carbon Dioxide Anion Gap BUN Creatinine Est Cr Clr Drug Dosing Est GFR ( Amer) Est GFR (Non-Af Amer) BUN/Creatinine Ratio Glucose Calcium Ionized Calcium Phosphorus Hep Bs Antigen Neg Hep Bs Antibody Immune Hep Bs Antibody, Quant 12.79 Hep B Core IgM Ab Pending
[2018-12-28] MEDS: SIMVASTATIN 40 MG TAB PO SCH (20:31)
--- NOTE | 2018-12-28 23:45 | Hospitalist Progress Note ---
Date of Service December 28, 2018 Assessment & Plan (1) Cellulitis of left leg: Failed outpatient treatment with Keflex. Continue Teflaro started in the ED. Dosage has been adjusted per renal function status. Infectious disease consultation. Will continue current antibiotic. This appears to be helping. Will place nasrin wrap to help decrease the swelling. SKIN was delineated. (2) End stage renal disease: Consult nephrology. Serial labs (3) Hyperlipidemia: Treated with statin therapy (4) DVT prophylaxis: Low-dose Lovenox daily Subjective 58 yo male reports mild improvement in his affected leg. He states less swelling and less redness on his left calf. Patient deneis any fever, chills, nausea, vomiting. Review of Systems Review of Systems: All systems reviewed & are unremarkable except as noted in HPI & below Physical Exam Physical Exam: General-alert and oriented x3, no fevers, no chills HEENT-head atraumatic and normocephalic, TMs intact bilaterally, pupils equal and reactive to light, extraocular muscles intact Neck-no lymphadenopathy or thyromegaly, trachea midline Chest-clear to auscultation percussion. No rales wheezing or rhonchi Cardiac-regular rate and rhythm, normal S1 and S2, no murmurs Abdomen-normal bowel sounds, nontender, no hepatosplenomegaly Extremities-no cyanosis, clubbing. Chronic venous stasis changes bilateral lower extremity below the knees. Assymetrical sweeling on left lower calf. Erythema also noted. Neuro-cranial nerves II through XII intact, motor and sensory function within normal limits, strength symmetrical 5/5, no focal deficits Psych-normal affect, normal mood Results & Data Vital Signs (Past 12 Hours) Vital Signs Temp Pulse Resp BP Pulse Ox 12/28/18 23:02 36.6 C 69 18 151/88 H 96 12/28/18 15:41 36.8 C 65 20 158/87 H 95 12/28/18 12:16 36.7 C 66 20 142/85 H 98 PG Care Time/CCT Total # of Minutes Spent Total Time Spent with Patient: Total time spent is greater than 50% in coordination of care (as documented) at patient's floor/unit and/or counseling patient:
[2018-12-29] MEDS: ACETAMINOPHEN 325 MG TAB PO PRN (03:58)
[2018-12-29] MEDS ORDERED: TRAMADOL HCL 50 MG TABLET PO STA ×2 (04:32→18:07)
[2018-12-29] MEDS: CEFTAROLINE FOSAMIL ACETATE 200 MG in SODIUM CHLORIDE 0.9% 250 ML IV SCH ×2 (05:50→16:50)
[2018-12-29 06:17] LABS: Basophils # (auto) 0.02 K/uL (0-0.2); Basophils % (auto) 0.4 %; Eosinophils # (auto) 0.23 K/uL (0-0.5); Eosinophils % (auto) 4.2 %; Hemoglobin 10.3 g/dL (14.0-18.0); Immature Granulocytes # (auto) 0.02 K/uL (0.00-0.02); Immature Granulocytes % (auto) 0.4 %; Lymphocytes # (auto) 0.52 K/uL (1.2-3.4); Lymphocytes % (auto) 9.5 %; Mean Corpuscular Hgb Conc 33.2 g/dL (32-36); Mean Corpuscular Volume 95.4 fL (80-100); Mean Platelet Volume 10.2 fL (7.4-10.4); Monocytes # (auto) 0.49 K/uL (0.11-0.59); Monocytes % (auto) 8.9 %; Neutrophils # (auto) 4.21 K/uL (1.4-6.5); Neutrophils % (auto) 76.6 %; Platelet Count 138 K/uL (130-400); RDW Coefficient of Variation 13.8 % (11.5-14.5); RDW Standard Deviation 48.5 fL (36.4-46.3); Red Blood Count 3.25 M/uL (4.7-6.1); White Blood Count 5.49 K/uL (4.8-10.8)
[2018-12-29] MEDS ORDERED: SODIUM CHLORIDE 0.9% 1000ML 1,000 ML IV PRN (07:00)
[2018-12-29 07:07] LABS: Calcium 6.4 mg/dl (8.5-10.1); Creatinine Clr Calc Pharmacy 9.6 ml/min; Est GFR (African American) 4.9; Est GFR (Non-African American) 4.3
[2018-12-29] MEDS: GABAPENTIN 600 MG TAB PO SCH ×2 (08:08→20:36)
[2018-12-29] MEDS: DULOXETINE HCL 20 MG CAP PO SCH (08:08)
[2018-12-29] MEDS: CALCIUM ACETATE 667 MG CAP PO SCH ×2 (08:09→16:50)
[2018-12-29] MEDS: HEPARIN SOD 5,000 UNIT/0.5 ML VIAL SQ SCH ×2 (08:09→20:37)
[2018-12-29] MEDS: PANTOprazole 40 MG TAB PO SCH (08:09)
[2018-12-29] MEDS: CYANOCOBALAMIN 500 MCG TABLET (VITAMIN B-12) PO SCH (08:09)
[2018-12-29] MEDS: PYRIDOXINE HCL 50 MG TAB PO SCH (08:09)
[2018-12-29] MEDS: SODIUM BICARBONATE 650 MG TAB PO SCH ×2 (08:09→20:37)
[2018-12-29] MEDS: FEBUXOSTAT 40 MG TABLET PO SCH (08:09)
--- NOTE | 2018-12-29 09:43 | Nephrology Progress Note ---
Date of Service December 29, 2018 Assessment & Plan (1) End stage renal disease: -- ESRD, first HD treatment today: orders entered into EMR and discussed with HD nurse -- Qb 200 per treatment order, AVF tolerating low blood flow well -- BP acceptable -- Low clearance treatment, UF goal 2 L -- Plan next treatment tomorrow -- Patient stable for discharge from a nephrology standpoint once outpatient dialysis arrangements have been secured (2) Hyperphosphatemia: Calcium Acetate to per be provided with meals. Low phosphorus diet. (3) Hypercalcemia: Attributed to underlying sarcoidosis. Improving with prednisone. Patient now hypocalcemic. This should improve with HD. (4) Hyperkalemia: Importance of low-potassium diet reviewed. (5) Sarcoidosis: There is no tissue diagnosis but the patient's clinical history is certainly suggestive of sarcoidosis affecting his kidneys. I suspect he has chronic interstitial nephritis associated with sarcoidosis versus chronic granuloma formation which has not been seen on his CT scan. The patient's abdominal CT scan obtained in the emergency department yesterday was reviewed today. Subjective No acute events overnight. Kirby was seen and evaluated during hemodialysis this AM. He is tolerating the treatment well. Qb acceptable. BP at goal. Overall, he feels well. Review of Systems Review of Systems: All systems reviewed & are unremarkable except as noted in HPI & below Physical Exam Constitutional: well developed and + obese; no acute distress Eyes: no scleral abnormality and no corneal abnormality ENMT: Mouth: no oral mucosal abnormality and oral mucous membranes not dry Neck: normal visual inspection and trachea midline Respiratory: normal respiratory effort; no respiratory distress Cardiovascular: Heart Sounds: normal S1 and normal S2; no murmur and no cardiac rub Extremities: + AV fistula Gastrointestinal (Abdomen): Percussion/Palpation: abdomen soft; abdomen nontender Musculoskeletal: Extremities: no cyanosis and no clubbing Skin: normal turgor; no rashes Neurologic: Motor/Sensory: + tremor and + asterixis Psychiatric: Orientation: alert and oriented x 3 Results & Data Vital Signs (Past 12 Hours) Vital Signs Temp Pulse Resp BP Pulse Ox 12/29/18 07:38 36.6 C 66 16 146/84 H 94 12/29/18 04:02 36.9 C 73 20 161/88 H 96 12/28/18 23:02 36.6 C 69 18 151/88 H 96 Laboratory Results Laboratory Results - last 24 hr 12/28/18 12/28/18 12/29/18 11:28 11:28 06:00 WBC 5.49 RBC 3.25 L Hgb 10.3 L Hct 31.0 L MCV 95.4 MCH 31.7 MCHC 33.2 RDW Std Deviation 48.5 H RDW Coeff of Theresa 13.8 Plt Count 138 MPV 10.2 Immature Gran % (Auto) 0.4 Neut % (Auto) 76.6 Lymph % (Auto) 9.5 [place] % (Auto) 8.9 Eos % (Auto) 4.2 Baso % (Auto) 0.4 Immature Gran # (Auto) 0.02 Neut # (Auto) 4.21 Lymph # (Auto) 0.52 L [place] # (Auto) 0.49 Eos # (Auto) 0.23 Baso # (Auto) 0.02 Sodium Potassium Chloride Carbon Dioxide Anion Gap BUN Creatinine Est Cr Clr Drug Dosing Est GFR ( Amer) Est GFR (Non-Af Amer) BUN/Creatinine Ratio Glucose Calcium Hep Bs Antigen Neg Hep Bs Antibody Immune Hep Bs Antibody, Quant 12.79 Hep B Core IgM Ab Pending 12/29/18 06:00 WBC RBC Hgb Hct MCV MCH MCHC RDW Std Deviation RDW Coeff of Theresa Plt Count MPV Immature Gran % (Auto) Neut % (Auto) Lymph % (Auto) [place] % (Auto) Eos % (Auto) Baso % (Auto) Immature Gran # (Auto) Neut # (Auto) Lymph # (Auto) [place] # (Auto) Eos # (Auto) Baso # (Auto) Sodium 142 Potassium 5.0 Chloride 114 H Carbon Dioxide 16 L Anion Gap 12.0 H BUN 140 H Creatinine 11.70 H* D Est Cr Clr Drug Dosing 9.6 Est GFR ( Amer) 4.9 Est GFR (Non-Af Amer) 4.3 BUN/Creatinine Ratio 12.0 Glucose 93 Calcium 6.4 L Hep Bs Antigen Hep Bs Antibody Hep Bs Antibody, Quant Hep B Core IgM Ab PG Care Time/CCT Total # of Minutes Spent Total Time Spent with Patient: Total time spent is greater than 50% in coordination of care (as documented) at patient's floor/unit and/or counseling patient: 30 minutes
--- NOTE | 2018-12-29 16:42 | Ultrasound Report ---
US hemodialysis access HISTORY: 58 years-old Male Left arm AVF left arm AV fistula. COMPARISON: None available TECHNIQUE: Multiple real time sonographic images of the left upper extremity vascular structures were obtained assessing grayscale appearance, color and spectral flow. FINDINGS/IMPRESSION: There is a patent radial artery cephalic vein fistula. At the level of the distal forearm, just above the level of the wrist there is a focal area of elevated peak systolic velocity about the radial art kaleb measuring up to 961 cm/s, 3 cm proximal to the AV fistula anastomosis compatible with area of hig h-grade stenosis without occlusion. The above report was generated using voice recognition software. It may contain grammatical, syntax o r spelling errors. Electronically signed by: Karl Miller M.D. 12/29/2018 4:40 PM
[2018-12-29] MEDS: SIMVASTATIN 40 MG TAB PO SCH (20:37)
--- NOTE | 2018-12-29 23:12 | Hospitalist Progress Note ---
Date of Service December 29, 2018 Assessment & Plan (1) Cellulitis of left leg: Failed outpatient treatment with Keflex. Continue Teflaro started in the ED. Dosage has been adjusted per renal function status. Infectious disease consultation. Will continue current antibiotic. This appears to be helping. Placed nasrin wrap to help decrease the swelling. Appears to be too loose. Will reapply with more pressure SKIN was delineated. (2) End stage renal disease: Consult nephrology. Serial labs Start 3 days of HD consecutiveluy: on 12/30-01/02 (3) Hyperlipidemia: Treated with statin therapy (4) DVT prophylaxis: Low-dose Lovenox daily Subjective Patient reports feeling well. He states the fistula did not work for his first ever session f dialysis. will repeat tomorrow. He does notice mild improvement of coloring of his cellulitis. Left leg maintains its swelling. Review of Systems Review of Systems: Constitutional-no fever or chills ENT-no blurred vision, no double vision, no epistaxis, no sore throat Respiratory-no cough, no wheezing, no shortness of breath Cardiac-no palpitations, no chest pain, no syncope GI-no nausea, vomiting, diarrhea, melena, hematochezia -no urinary retention, no urinary incontinence, no dysuria, no hematuria Musculoskeletal-no joint pain, no muscle tenderness. Increasing swelling, erythema, tenderness left lower extremity below the knee Skin-no bruising, no rashes, no pruritus. Chronic venous stasis dermatitis bilateral lower extremities Neuro-no isolated weakness, no paresthesia, no weakness Psych-no depression, no anxiety Physical Exam Physical Exam: General-alert and oriented x3, no fevers, no chills HEENT-head atraumatic and normocephalic, TMs intact bilaterally, pupils equal and reactive to light, extraocular muscles intact Neck-no lymphadenopathy or thyromegaly, trachea midline Chest-clear to auscultation percussion. No rales wheezing or rhonchi Cardiac-regular rate and rhythm, normal S1 and S2, no murmurs Abdomen-normal bowel sounds, nontender, no hepatosplenomegaly Extremities-no cyanosis, clubbing. Chronic venous stasis changes bilateral lower extremity below the knees. Assymetrical swelling on left lower calf greater than right. Erythema also noted, but improved Neuro-cranial nerves II through XII intact, motor and sensory function within normal limits, strength symmetrical 5/5, no focal deficits Psych-normal affect, normal mood Results & Data Vital Signs (Past 12 Hours) Vital Signs Temp Pulse Resp BP Pulse Ox 12/29/18 20:43 169/92 H 12/29/18 15:24 36.4 C L 71 18 180/99 H 98 PG Care Time/CCT Total # of Minutes Spent Total Time Spent with Patient: Total time spent is greater than 50% in coordination of care (as documented) at patient's floor/unit and/or counseling patient:
[2018-12-30] MEDS ORDERED: CYCLOBENZAPRINE HCL 10 MG TAB PO STA ×2 (03:38→19:54)
[2018-12-30] MEDS: CEFTAROLINE FOSAMIL ACETATE 200 MG in SODIUM CHLORIDE 0.9% 250 ML IV SCH ×2 (05:54→17:37)
[2018-12-30 06:28] LABS: Basophils # (auto) 0.01 K/uL (0-0.2); Basophils % (auto) 0.2 %; Eosinophils # (auto) 0.28 K/uL (0-0.5); Eosinophils % (auto) 4.6 %; Hematocrit (blood only) 31.2 % (42-52); Hemoglobin 10.5 g/dL (14.0-18.0); Immature Granulocytes # (auto) 0.01 K/uL (0.00-0.02); Immature Granulocytes % (auto) 0.2 %; Lymphocytes # (auto) 0.52 K/uL (1.2-3.4); Lymphocytes % (auto) 8.5 %; Mean Corpuscular Hgb Conc 33.7 g/dL (32-36); Mean Platelet Volume 10.4 fL (7.4-10.4); Monocytes # (auto) 0.54 K/uL (0.11-0.59); Monocytes % (auto) 8.8 %; Neutrophils # (auto) 4.75 K/uL (1.4-6.5); Neutrophils % (auto) 77.7 %; Platelet Count 152 K/uL (130-400); RDW Coefficient of Variation 13.7 % (11.5-14.5); RDW Standard Deviation 48.3 fL (36.4-46.3); Red Blood Count 3.25 M/uL (4.7-6.1); White Blood Count 6.11 K/uL (4.8-10.8)
[2018-12-30] MEDS ORDERED: SODIUM CHLORIDE 0.9% 1000ML 1,000 ML IV PRN (07:00)
[2018-12-30 07:16] LABS: BUN Creatinine Ratio 11.6 (10-20); Calcium 6.3 mg/dl (8.5-10.1); Creatinine Clr Calc Pharmacy 9.2 ml/min; Est GFR (African American) 4.7; Potassium 4.9 mmol/L (3.5-5.1)
[2018-12-30] MEDS: DULOXETINE HCL 20 MG CAP PO SCH (08:24)
[2018-12-30] MEDS: CALCIUM ACETATE 667 MG CAP PO SCH ×2 (08:24→16:31)
[2018-12-30] MEDS: HEPARIN SOD 5,000 UNIT/0.5 ML VIAL SQ SCH ×2 (08:24→20:06)
[2018-12-30] MEDS: GABAPENTIN 600 MG TAB PO SCH ×2 (08:25→20:05)
[2018-12-30] MEDS: FUROSEMIDE 80 MG TAB PO SCH (08:25)
[2018-12-30] MEDS: PANTOprazole 40 MG TAB PO SCH (08:26)
[2018-12-30] MEDS: SODIUM BICARBONATE 650 MG TAB PO SCH ×2 (08:26→20:05)
[2018-12-30] MEDS: PYRIDOXINE HCL 50 MG TAB PO SCH (08:26)
[2018-12-30] MEDS: FEBUXOSTAT 40 MG TABLET PO SCH (08:26)
[2018-12-30] MEDS: VITAMIN B COMPLEX TAB PO SCH (08:27)
[2018-12-30] MEDS: CYANOCOBALAMIN 500 MCG TABLET (VITAMIN B-12) PO SCH (08:27)
--- NOTE | 2018-12-30 13:06 | Nephrology Progress Note ---
Date of Service December 30, 2018 Assessment & Plan (1) End stage renal disease: -- Attempt at first treatment yesterday was complicated by difficulty securing adequate needle placement -- Duplex did demonstrate proximal stenosis, I reviewed this with vascular surgery this morning - fistulogram will be arranged for next week on Wednesday (this can performed inpatient or outpatient) -- ESRD, first HD treatment today: orders entered into EMR and discussed with HD nurse -- Qb 200 per treatment order, AVF tolerating low blood flow well -- access pressure acceptable -- BP acceptable -- Low clearance treatment, UF goal 2 L -- Plan next treatment tomorrow -- Patient stable for discharge from a nephrology standpoint once outpatient dialysis arrangements have been secured (2) Hyperphosphatemia: Calcium Acetate to per be provided with meals. Low phosphorus diet. (3) Hypercalcemia: Attributed to underlying sarcoidosis. Improving with prednisone. Patient now hypocalcemic. This should improve with HD. (4) Hyperkalemia: Importance of low-potassium diet reviewed. (5) Sarcoidosis: There is no tissue diagnosis but the patient's clinical history is certainly suggestive of sarcoidosis affecting his kidneys. I suspect he has chronic interstitial nephritis associated with sarcoidosis versus chronic granuloma formation which has not been seen on his CT scan. The patient's abdominal CT scan obtained in the emergency department yesterday was reviewed today. Subjective No acute events overnight. Kirby was seen and evaluated during hemodialysis this AM. He is tolerating the treatment well. Qb acceptable. BP at goal. Overall, he feels well. Review of Systems Review of Systems: All systems reviewed & are unremarkable except as noted in HPI & below Physical Exam Constitutional: well developed and + obese; no acute distress Eyes: no scleral abnormality and no corneal abnormality ENMT: Mouth: no oral mucosal abnormality and oral mucous membranes not dry Neck: normal visual inspection and trachea midline Respiratory: normal respiratory effort; no respiratory distress Cardiovascular: Heart Sounds: normal S1 and normal S2; no murmur and no cardiac rub Extremities: + AV fistula Gastrointestinal (Abdomen): Percussion/Palpation: abdomen soft; abdomen nontender Musculoskeletal: Extremities: no cyanosis and no clubbing Skin: normal turgor; no rashes Neurologic: Motor/Sensory: + tremor and + asterixis Psychiatric: Orientation: alert and oriented x 3 Results & Data Vital Signs (Past 12 Hours) Vital Signs Temp Pulse Pulse Resp BP Pulse Ox 12/30/18 09:35 36.6 C 70 12/30/18 07:36 36.4 C L 81 18 175/95 H 94 Laboratory Results Laboratory Results - last 24 hr 12/28/18 12/30/18 12/30/18 11:28 05:58 05:58 WBC 6.11 RBC 3.25 L Hgb 10.5 L Hct 31.2 L MCV 96.0 MCH 32.3 MCHC 33.7 RDW Std Deviation 48.3 H RDW Coeff of Theresa 13.7 Plt Count 152 MPV 10.4 Immature Gran % (Auto) 0.2 Neut % (Auto) 77.7 Lymph % (Auto) 8.5 Imperial % (Auto) 8.8 Eos % (Auto) 4.6 Baso % (Auto) 0.2 Immature Gran # (Auto) 0.01 Neut # (Auto) 4.75 Lymph # (Auto) 0.52 L Imperial # (Auto) 0.54 Eos # (Auto) 0.28 Baso # (Auto) 0.01 Sodium 141 Potassium 4.9 Chloride 113 H Carbon Dioxide 16 L Anion Gap 13.0 H BUN 140 H Creatinine 12.20 H* D Est Cr Clr Drug Dosing 9.2 Est GFR ( Amer) 4.7 Est GFR (Non-Af Amer) 4.0 BUN/Creatinine Ratio 11.6 Glucose 93 Calcium 6.3 L Hep B Core IgM Ab NON-REACTIVE PG Care Time/CCT Total # of Minutes Spent Total Time Spent with Patient: Total time spent is greater than 50% in coordination of care (as documented) at patient's floor/unit and/or counseling patient:
--- NOTE | 2018-12-30 14:02 | Consultation ---
Date of Consultation December 30, 2018 Assessment & Plan (1) End stage renal disease: Pt with L radiocephalic AVF in place. Currently accessed and running despite stenosis noted on US. Pt discussed with Dr Perkins, recommends pt have LUE fistulagram next week to eval stenosis. May run HD through fistula if able. Please call if more urgent need for access. Patient was seen, examined, and chart reviewed. Agree with exam and treatment plan of the Vascular PA. Patient is scheduled for a fistulogram with possible intervention wednesday. This can be done as an outpatient. Thank you very much for letting us participate in the care of this patient. Present on Admission?: Yes History of Present Illness Reason for Consultation: LUE AVF stenosis Attending Physician: Pa Potter History of Present Illness 58 yo m with multiple medical problems, including sarcoidosis, hyperlipidemia, GERD, gout, hx dvt, ESRD, HTN, FARNAZ, admitted with acute on chronic renal failure, seen in consultation today to eval LUE AVF. Pt known to Dr Perkins for L radiocephalic AVF creation last year in preparation for possible future need for HD. HD unit here attempted to cannulate yesterday for access, but were not able to run him, so US was performed of AVF which demonstrated possible stenosis of distal portion of AVF. Pt admits fatigue, but denies any other complaints. Denies MAJANO, fever, chills, chest pain, SOB, abd pain, N/V, rest pain, claudication, other complaints. Allergies Allergy/AdvReac Type Severity Reaction Status Date / Time allopurinol Allergy Unknown Rash Verified 12/27/18 11:56 Penicillins Allergy Unknown Unknown Verified 12/27/18 11:56 Home Medications Home Medications Medication Instructions Recorded Confirmed Type cyanocobalamin (vitamin B-12) 1,000 mcg PO QAM 06/22/18 12/27/18 History duloxetine 20 mg PO QAM 06/22/18 12/27/18 History febuxostat [Uloric] 80 mg PO QAM 06/22/18 12/27/18 History omeprazole 40 mg PO QAM 06/22/18 12/27/18 History simvastatin 40 mg PO QPM 06/22/18 12/27/18 History Folbic 1 tab PO QAM 11/12/18 12/27/18 History gabapentin 600 mg PO BID #0 cap 11/14/18 12/27/18 Rx furosemide 80 mg tablet 80 mg PO .COMPLEX tab 12/22/18 12/27/18 History prednisone 20 mg tablet 20 mg PO DAILY 12/22/18 12/27/18 History pyridoxine (vitamin B6) 50 mg 50 mg PO DAILY tab 12/22/18 12/27/18 History tablet calcium acetate 667 mg PO BID 12/25/18 12/27/18 History cephalexin [Keflex] 250 mg PO DAILY #10 cap 12/25/18 12/27/18 Rx prednisone 50 mg PO DAILY 12/25/18 12/27/18 History Patient History Medical History Hyperlipidemia (Chronic) End stage renal disease (Chronic) Chronic kidney disease (Acute) Deep vein blood clot of left lower extremity S/P LEFT LEG SURGERY (EXCISION OF MELANOMA LEFT LEG) 10 YEARS AGO. Gout Hyperlipidemia Hypertension Sarcoidosis Sleep apnea CPAP Surgical History History of melanoma excision History of tonsillectomy History of tooth extraction Family History Other Cancer Lung disease Social History Preferred Language: Amharic Communication Ability: Effective Pediatric Dietician Required: No Beliefs That Will Affect Care: None marital status: Current Living Situation: Spouse Other Information That Helps Us Care for You: No Feels Safe at Home: Yes Safety Concerns: Feels Safe At This Time Smoking Status: Never smoker Do You Dip or Chew Tobacco: No ; Second Hand Exposure: No ; Tobacco Cessation Education Requested by Patient: No Hx Alcohol Use: No Hx Substance Use: No Review of Systems Review of Systems: All systems reviewed & are unremarkable except as noted in HPI & below (+ fatigue) Physical Exam Constitutional: WD/WN, vitals as above well developed, well nourished, + obese, cooperative and comfortable; not in distress and not combative Eyes: PERRL, conjunctivae normal, anicteric sclerae ENMT: external ear and nose normal, oropharynx normal Neck: trachea midline, no thyromegaly Respiratory: normal respiratory effort, lungs clear to auscultation Cardiovascular: RRR, no murmur, no edema Vessels: femoral pulses present, posterior tibial pulses present, dorsalis pedis pulses present, brachial pulses present and radial pulses present; no carotid bruit and + abnormal peripheral pulses Extremities: normal capillary refill, + edema and + AV fistula (L forearm, currently accessed for HD. running well) Gastrointestinal (Abdomen): normal bowel sounds, soft, nontender, no hepatosplenomegaly Musculoskeletal: no cyanosis or clubbing, extremities motor strength 5/5 Skin: normal turgor and + rash (LLE dressing in place) Neurologic: moves all extremities and awake; no focal motor deficits and not confused Psychiatric: A+Ox3, euthymic affect Results & Data Vital Signs (Past 12 Hours) Vital Signs Temp Pulse Pulse Resp BP Pulse Ox 12/30/18 09:35 36.6 C 70 12/30/18 07:36 36.4 C L 81 18 175/95 H 94
[2018-12-30] MEDS: SIMVASTATIN 40 MG TAB PO SCH (20:06)
--- NOTE | 2018-12-30 20:51 | Hospitalist Progress Note ---
Date of Service December 30, 2018 Assessment & Plan (1) Cellulitis of left leg: Failed outpatient treatment with Keflex. Continue Teflaro started in the ED. Dosage has been adjusted per renal function status. Infectious disease consultation. Will continue current antibiotic. This appears to be helping. Placed nasrin wrap to help decrease the swelling. Will improve likely with dialysis. Had 2 liters removed on 12/30 Will reapply with more pressure SKIN was delineated. (2) End stage renal disease: Consult nephrology. Serial labs Start 3 days of HD: from 12/30-01/02 (3) Hyperlipidemia: Treated with statin therapy (4) DVT prophylaxis: Low-dose Lovenox daily Subjective No acute events overnight. Patient reports feeling well. No new symptoms. Review of Systems Review of Systems: All systems reviewed & are unremarkable except as noted in HPI & below Physical Exam Physical Exam: General-alert and oriented x3, no fevers, no chills HEENT-head atraumatic and normocephalic, TMs intact bilaterally, pupils equal and reactive to light, extraocular muscles intact Neck-no lymphadenopathy or thyromegaly, trachea midline Chest-clear to auscultation percussion. No rales wheezing or rhonchi Cardiac-regular rate and rhythm, normal S1 and S2, no murmurs Abdomen-normal bowel sounds, nontender, no hepatosplenomegaly Extremities-no cyanosis, clubbing. Chronic venous stasis changes bilateral lower extremity below the knees. Assymetrical swelling on left lower calf greater than right. Erythema also noted, but improved Left leg calf circ. me asured :52.5 cm Neuro-cranial nerves II through XII intact, motor and sensory function within normal limits, strength symmetrical 5/5, no focal deficits Psych-normal affect, normal mood Results & Data Vital Signs (Past 12 Hours) Vital Signs Temp Pulse Pulse Pulse Resp BP BP 12/30/18 19:13 36.4 C L 68 20 163/101 H 12/30/18 15:23 37.1 C 67 167/97 H 12/30/18 15:03 36.7 C 65 18 176/95 H 12/30/18 12:00 75 174/82 H 12/30/18 11:40 77 168/80 H 12/30/18 11:20 80 172/84 H 12/30/18 11:00 80 164/78 H 12/30/18 10:40 75 174/82 H 12/30/18 10:20 76 167/98 H 12/30/18 09:35 36.6 C 70 Pulse Ox 12/30/18 19:13 99 12/30/18 15:23 12/30/18 15:03 97 12/30/18 12:00 12/30/18 11:40 12/30/18 11:20 12/30/18 11:00 12/30/18 10:40 12/30/18 10:20 12/30/18 09:35 PG Care Time/CCT Total # of Minutes Spent Total Time Spent with Patient: Total time spent is greater than 50% in coordination of care (as documented) at patient's floor/unit and/or counseling patient:
[2018-12-31] MEDS: CEFTAROLINE FOSAMIL ACETATE 200 MG in SODIUM CHLORIDE 0.9% 250 ML IV SCH ×2 (06:04→17:47)
[2018-12-31] MEDS ORDERED: SODIUM CHLORIDE 0.9% 1000ML 1,000 ML IV PRN (07:00)
[2018-12-31] MEDS: CALCIUM ACETATE 667 MG CAP PO SCH ×2 (08:36→16:40)
[2018-12-31] MEDS: VITAMIN B COMPLEX TAB PO SCH (08:37)
[2018-12-31] MEDS: FEBUXOSTAT 40 MG TABLET PO SCH (08:37)
[2018-12-31] MEDS: PYRIDOXINE HCL 50 MG TAB PO SCH (08:37)
[2018-12-31] MEDS: SODIUM BICARBONATE 650 MG TAB PO SCH ×2 (08:38→21:13)
[2018-12-31] MEDS: DULOXETINE HCL 20 MG CAP PO SCH (08:38)
[2018-12-31] MEDS: GABAPENTIN 600 MG TAB PO SCH ×2 (08:38→21:12)
[2018-12-31] MEDS: CYANOCOBALAMIN 500 MCG TABLET (VITAMIN B-12) PO SCH (08:38)
[2018-12-31] MEDS: PANTOprazole 40 MG TAB PO SCH (08:38)
[2018-12-31] MEDS: HEPARIN SOD 5,000 UNIT/0.5 ML VIAL SQ SCH ×2 (08:38→21:13)
[2018-12-31 09:58] LABS: BUN Creatinine Ratio 10.6 (10-20); Calcium 6.8 mg/dl (8.5-10.1); Creatinine Clr Calc Pharmacy 9.8 ml/min; Est GFR (African American) 5.1; Est GFR (Non-African American) 4.4; Magnesium 2.2 mg/dl (1.8-2.4); Phosphorus 8.3 mg/dl (2.5-4.9); Potassium 4.6 mmol/L (3.5-5.1)
[2018-12-31] MEDS: CYCLOBENZAPRINE HCL 10 MG TAB PO PRN ×2 (11:20→17:03)
--- NOTE | 2018-12-31 11:20 | Nephrology Progress Note ---
Date of Service December 31, 2018 Assessment & Plan (1) End stage renal disease: -- HD attempted but not provided this am due to AVF stenosis. Patient remains euvolemic and in no respiratory distress. Electrolyte balance is acceptable. No acute indication for temporary dialysis catheter at this time -- 12/25 AVF doppler w/ high grade stenosis of venous outflow. Vascular surgery to perform fistulogram on Wednesday -- Recommend continued hospitalization until functional dialysis access can be established (2) Hyperphosphatemia: --Calcium Acetate to per be provided with meals. Low phosphorus diet. (3) Sarcoidosis: --There is no tissue diagnosis but the patient's clinical history is certainly suggestive of sarcoidosis affecting his kidneys. I suspect he has chronic interstitial nephritis associated with sarcoidosis versus chronic granuloma formation which has not been seen on his CT scan. -- Hypercalcemia attributed to underlying sarcoidosis. Improving with prednisone. Patient now hypocalcemic. This should improve with HD. Subjective Mr. Prado was seen & examined following attempted HD today. AVF w/ high grade venous stenosis. HD staff trainer attempted x 2 to cannulate AVF but unsuccessful. Patient denies dyspnea, angina or uremic symptoms at this time Review of Systems Constitutional: no fever, no chills and no weakness Eyes: no worsening vision and no problem reported Ear, Nose, Mouth, Throat: no problem reported Respiratory: no cough and no dyspnea Cardiovascular: no chest pain, no palpitations and no edema Gastrointestinal: no abdominal pain, no nausea, no vomiting and no diarrhea/loose stools Genitourinary: no dysuria, no urinary hesitancy and no hematuria Musculoskeletal: no back pain Integumentary: no rash Neurologic: no falls, no dizziness and no confusion Physical Exam Constitutional: + overweight Eyes: PERRL, conjunctivae normal, anicteric sclerae ENMT: external ear and nose normal, oropharynx normal Neck: trachea midline, no thyromegaly Respiratory: normal respiratory effort, lungs clear to auscultation Cardiovascular: RRR, no murmur, no edema Extremities: + AV fistula (+ bruit) Gastrointestinal (Abdomen): normal bowel sounds, soft, nontender, no hepatosplenomegaly Musculoskeletal: no cyanosis or clubbing, extremities motor strength 5/5 Skin: + erythema (L calf) Neurologic: awake; not confused Results & Data Vital Signs (Past 12 Hours) Vital Signs Temp Pulse Pulse Resp BP Pulse Ox 12/31/18 09:20 75 12/31/18 07:00 36.5 C 68 20 160/83 H 97 Laboratory Results Laboratory Tests 12/30/18 12/31/18 05:58 09:09 WBC 6.11 Hgb 10.5 L Hct 31.2 L Plt Count 152 Sodium 141 Potassium 4.6 Chloride 110 H Carbon Dioxide 24 BUN 119 H Creatinine 11.40 H* D Glucose 128 H Phosphorus 8.3 H PG Care Time/CCT Total # of Minutes Spent Total Time Spent with Patient: Total time spent is greater than 50% in coordination of care (as documented) at patient's floor/unit and/or counseling patient:
--- NOTE | 2018-12-31 15:57 | Hospitalist Progress Note ---
Date of Service December 31, 2018 Assessment & Plan (1) Cellulitis of left leg: Failed outpatient treatment with Keflex. Continue Teflaro Infectious disease following no fever, clinically improving with erythema receding less warmth and less tenderness continue SCOTT wrap (2) End stage renal disease: patient requiring hemodialysis unfortunately his fistula could not be accessed on 12/31 due to stenosis will need fistulogram, intervention on 01/[address] Perkins Cr is [address] Thornton following has secondary hyperparathyroidism with high phosphorus continue phosphate binders (3) Hyperlipidemia: Treated with statin therapy (4) DVT prophylaxis: Low-dose Lovenox daily Subjective patient was taken for HD today but fistula could not be accessed due to stenosis d/w Dr. Thornton, hold on HD, plan for fistulogram on Wednesday with Dr. Perkins patient says that the left leg cellulitis is better less pain, no fever, less redness proximally, still with red discoloration peripherally reviewed labs, Cr is 11, electrolytes stable Review of Systems Review of Systems: All systems reviewed & are unremarkable except as noted in HPI & below Integumentary: + rash (left lower leg, erythema, tender) Physical Exam Constitutional: WD/WN, vitals as above + obese Eyes: PERRL, conjunctivae normal, anicteric sclerae ENMT: external ear and nose normal, oropharynx normal Neck: trachea midline, no thyromegaly Respiratory: normal respiratory effort, lungs clear to auscultation Cardiovascular: RRR, no murmur, no edema Gastrointestinal (Abdomen): normal bowel sounds, soft, nontender, no hepatosplenomegaly Musculoskeletal: no cyanosis or clubbing, extremities motor strength 5/5 Skin: + erythema (left lower leg, receding from original border, warm and tender to palpation) Neurologic: patellar DTR's 2+ bilat, sensation intact and PERRL, EOMI, accommodation nl, no face palsy, no dysarthria Psychiatric: A+Ox3, euthymic affect Lymphatic: no cervical or axillary lymphadenopathy Results & Data Vital Signs (Past 12 Hours) Vital Signs Temp Pulse Pulse Resp BP Pulse Ox 12/31/18 14:35 36.7 C 75 20 151/85 H 96 12/31/18 09:20 75 12/31/18 07:00 36.5 C 68 20 160/83 H 97 Laboratory Results Laboratory Results - last 24 hr 12/31/18 09:09 Sodium 141 Potassium 4.6 Chloride 110 H Carbon Dioxide 24 Anion Gap 7.0 BUN 119 H Creatinine 11.40 H* D Est Cr Clr Drug Dosing 9.8 Est GFR ( Amer) 5.1 Est GFR (Non-Af Amer) 4.4 BUN/Creatinine Ratio 10.6 Glucose 128 H Calcium 6.8 L Phosphorus 8.3 H Magnesium 2.2 Medications Administered Current Inpatient Medications Acetaminophen (Tylenol) 650 mg PO Q4H PRN PRN Reason: Pain or Fever Stop: 01/26/19 16:49 Last Admin: 12/29/18 03:58 Dose: 650 mg Documented by: Al Hydrox/Mg Hydrox/Simethicone (Maalox) 15 ml PO Q4H PRN PRN Reason: Dyspepsia Stop: 01/26/19 16:49 Calcium Acetate (Phoslo) 667 mg PO BIDM [facility] Stop: 01/26/19 16:59 Last Admin: 12/31/18 08:36 Dose: 667 mg Documented by: Cyanocobalamin (Vitamin B-12) 1,000 mcg PO QAM [facility] Stop: 01/27/19 08:59 Last Admin: 12/31/18 08:38 Dose: 1,000 mcg Documented by: Cyclobenzaprine HCl (Flexeril) 10 mg PO TID PRN PRN Reason: Muscle Spasm Stop: 01/30/19 13:59 Last Admin: 12/31/18 11:20 Dose: 10 mg Documented by: Duloxetine HCl (Cymbalta) 20 mg PO [facility] Stop: 01/27/19 08:59 Last Admin: 12/31/18 08:38 Dose: 20 mg Documented by: Febuxostat (Uloric) [facility] [place]: 01/27/19 08:59 Last Admin: 12/31/18 08:37 Dose: 80 mg Documented by: Furosemide (Lasix) 80 mg PO Q3D@0900 [facility] Stop: 01/29/19 08:59 Last Admin: 12/30/18 08:25 Dose: Not Given Documented by: Gabapentin (Neurontin) 600 mg PO BID [facility] Stop: 01/26/19 20:59 Last Admin: 12/31/18 08:38 Dose: 600 mg Documented by: Heparin Sodium (Porcine) (Heparin Sodium (Porcine)) 5,000 units SQ Q12H RANDELL Stop: 01/26/19 20:59 Last Admin: 12/31/18 08:38 Dose: 5,000 units Documented by: Ceftaroline Fosamil 200 mg/ (Sodium Chloride) 256.6667 mls @ 250 mls/hr IV Q12H RANDELL; Protocol Stop: 01/07/19 05:59 Last Infusion: 12/31/18 07:08 Dose: Infused Documented by: Ondansetron HCl (Zofran) 4 mg IV Q6H PRN PRN Reason: Nausea Stop: 01/26/19 16:49 Pantoprazole Sodium (Protonix) 40 mg PO QAM RANDELL Stop: 01/27/19 08:59 Last Admin: 12/31/18 08:38 Dose: 40 mg Documented by: Pyridoxine HCl (Vitamin B-6) 50 mg PO DAILY RANDELL Stop: 01/27/19 08:59 Last Admin: 12/31/18 08:37 Dose: 50 mg Documented by: Simvastatin (Zocor) 40 mg PO QPM RANDELL Stop: 01/26/19 20:59 Last Admin: 12/30/18 20:06 Dose: 40 mg Documented by: Sodium Bicarbonate (Sodium Bicarbonate) 1,300 mg PO BID RANDELL Stop: 01/27/19 11:59 Last Admin: 12/31/18 08:38 Dose: 1,300 mg Documented by: Vitamin B Complex (Vitamin B Complex) 1 tab PO DAILY RANDELL Stop: 01/29/19 08:59 Last Admin: 12/31/18 08:37 Dose: 1 tab Documented by: PG Care Time/CCT Total # of Minutes Spent Total Time Spent with Patient: Total time spent is greater than 50% in coordination of care (as documented) at patient's floor/unit and/or counseling patient:
[2018-12-31] MEDS: ACETAMINOPHEN 325 MG TAB PO PRN (21:11)
[2018-12-31] MEDS: SIMVASTATIN 40 MG TAB PO SCH (21:12)
[2019-01-01 05:50] LABS: Hematocrit (blood only) 32.6 % (42-52); Hemoglobin 10.7 g/dL (14.0-18.0); Mean Corpuscular Hgb Conc 32.8 g/dL (32-36); Mean Corpuscular Volume 95.3 fL (80-100); Mean Platelet Volume 9.4 fL (7.4-10.4); Platelet Count 165 K/uL (130-400); RDW Coefficient of Variation 13.7 % (11.5-14.5); RDW Standard Deviation 47.9 fL (36.4-46.3); Red Blood Count 3.42 M/uL (4.7-6.1); White Blood Count 4.72 K/uL (4.8-10.8)
[2019-01-01] MEDS: CEFTAROLINE FOSAMIL ACETATE 200 MG in SODIUM CHLORIDE 0.9% 250 ML IV SCH ×2 (06:14→18:30)
[2019-01-01 06:47] LABS: Albumin Globulin Ratio 0.6 (0.9-2); Albumin Level 2.2 gm/dl (3.4-5.0); BUN Creatinine Ratio 10.5 (10-20); Bilirubin,Total 0.5 mg/dl (0.2-1); Calcium 6.7 mg/dl (8.5-10.1); Creatinine Clr Calc Pharmacy 9.4 ml/min; Est GFR (African American) 4.8; Est GFR (Non-African American) 4.2; Globulin 3.9 gm/dl (2.5-4.0); Potassium 4.8 mmol/L (3.5-5.1); Total Protein 6.1 gm/dl (6.4-8.2)
[2019-01-01] MEDS: DULOXETINE HCL 20 MG CAP PO SCH (08:39)
[2019-01-01] MEDS: SODIUM BICARBONATE 650 MG TAB PO SCH ×2 (08:39→20:10)
[2019-01-01] MEDS: VITAMIN B COMPLEX TAB PO SCH (08:39)
[2019-01-01] MEDS: CALCIUM ACETATE 667 MG CAP PO SCH ×2 (08:39→17:25)
[2019-01-01] MEDS: FEBUXOSTAT 40 MG TABLET PO SCH (08:39)
[2019-01-01] MEDS: GABAPENTIN 600 MG TAB PO SCH ×2 (08:40→20:10)
[2019-01-01] MEDS: CYANOCOBALAMIN 500 MCG TABLET (VITAMIN B-12) PO SCH (08:40)
[2019-01-01] MEDS: PANTOprazole 40 MG TAB PO SCH (08:40)
[2019-01-01] MEDS: PYRIDOXINE HCL 50 MG TAB PO SCH (08:40)
[2019-01-01] MEDS: HEPARIN SOD 5,000 UNIT/0.5 ML VIAL SQ SCH ×3 (08:40→20:14)
[2019-01-01] MEDS: CYCLOBENZAPRINE HCL 10 MG TAB PO PRN ×2 (08:40→22:10)
--- NOTE | 2019-01-01 09:48 | Communication Note ---
Date of Service: January 01, 2019 Will try to squeeze in his fistulogram on Wednesday.
--- NOTE | 2019-01-01 10:36 | Nephrology Progress Note ---
Date of Service January 01, 2019 Assessment & Plan (1) End stage renal disease: -- Volume status & electrolyte balance are acceptable. No acute indication for HD today -- 12/25 AVF doppler w/ high grade stenosis of venous outflow. tax staff accountant unable to cannulate AVF for HD -- Discussed POC w/ Vascular Surgery this morning. Patient to be NPO after MN for possible fistulagram Wednesday -- Recommend continued hospitalization until functional dialysis access can be established (2) Hyperphosphatemia: --Calcium Acetate to per be provided with meals. Low phosphorus diet. (3) Sarcoidosis: --There is no tissue diagnosis but the patient's clinical history is certainly suggestive of sarcoidosis affecting his kidneys. I suspect he has chronic interstitial nephritis associated with sarcoidosis versus chronic granuloma formation which has not been seen on his CT scan. -- Hypercalcemia attributed to underlying sarcoidosis. Improving with prednisone. Patient now hypocalcemic. This should improve with HD. Subjective Mr. Prado was seen & examined in his hospital room this morning. HD could not be provided yesterday. AVF could not be cannulated. Mr. Prado currently denies angina, dyspnea or uremic symptoms. Review of Systems Constitutional: no fever, no chills and no weakness Eyes: no worsening vision and no problem reported Ear, Nose, Mouth, Throat: no problem reported Respiratory: no cough and no dyspnea Cardiovascular: no chest pain, no palpitations and no edema Gastrointestinal: no abdominal pain, no nausea, no vomiting and no diarrhe a/loose stools Genitourinary: no dysuria, no urinary hesitancy and no hematuria Musculoskeletal: no back pain Integumentary: no rash Neurologic: no falls, no dizziness and no confusion Physical Exam Constitutional: + overweight Eyes: PERRL, conjunctivae normal, anicteric sclerae ENMT: external ear and nose normal, oropharynx normal Neck: trachea midline, no thyromegaly Respiratory: normal respiratory effort, lungs clear to auscultation Cardiovascular: RRR, no murmur, no edema Extremities: + AV fistula (+ bruit) Gastrointestinal (Abdomen): normal bowel sounds, soft, nontender, no hepatosplenomegaly Musculoskeletal: no cyanosis or clubbing, extremities motor strength 5/5 Skin: + erythema (L calf) Neurologic: awake; not confused Results & Data Vital Signs (Past 12 Hours) Vital Signs Temp Pulse Pulse Resp BP Pulse Ox 01/01/19 08:00 36.7 C 67 18 170/91 H 98 01/01/19 07:54 75 12/31/18 22:52 36.7 C 77 20 97 Laboratory Results Laboratory Tests 01/01/19 01/01/19 05:41 05:41 WBC 4.72 L Hgb 10.7 L Hct 32.6 L Plt Count 165 Sodium 142 Potassium 4.8 Chloride 111 H Carbon Dioxide 24 BUN 123 H Creatinine 11.90 H* D Glucose 94 Calcium 6.7 L Albumin 2.2 L PG Care Time/CCT Total # of Minutes Spent Total Time Spent with Patient: Total time spent is greater than 50% in coordination of care (as documented) at patient's floor/unit and/or counseling patient:
--- NOTE | 2019-01-01 13:53 | Hospitalist Progress Note ---
Date of Service January 01, 2019 Assessment & Plan (1) Cellulitis of left leg: Failed outpatient treatment with Keflex. Continue Teflaro for time being showing good response no fever, redness is decreased further today, less warm and less tender Infectious disease following continue SCOTT wrap (2) End stage renal disease: patient requiring hemodialysis unfortunately his fistula could not be accessed on 12/31 due to stenosis will need fistulogram, intervention on 01/02 or 01/[address] Perkins Cr is 11, electrolytes stable Dr. Thornton following has secondary hyperparathyroidism with high phosphorus continue phosphate binders (3) Hyperlipidemia: Treated with statin therapy (4) DVT prophylaxis: Low-dose Lovenox daily Subjective no significant changes over night, patient still feeling fine some tenderness in left lower leg but overall he feels well no fever or chills discussed with Dr. Thornton, will try to get fistulogram done tomorrow if possible, perhaps HD afterwards patient is eating well, moving bowels no chest pain, no dyspnea Review of Systems Review of Systems: All systems reviewed & are unremarkable except as noted in HPI & below Integumentary: + erythema (left lower leg, warm, tender) Physical Exam Constitutional: WD/WN, vitals as above + obese Eyes: PERRL, conjunctivae normal, anicteric sclerae ENMT: external ear and nose normal, oropharynx normal Neck: trachea midline, no thyromegaly Respiratory: normal respiratory effort, lungs clear to auscultation Cardiovascular: RRR, no murmur, no edema Gastrointestinal (Abdomen): normal bowel sounds, soft, nontender, no hepatosplenomegaly Musculoskeletal: no cyanosis or clubbing, extremities motor strength 5/5 Skin: + erythema (left lower leg, receding from original border, warm and tender to palpation) Neurologic: patellar DTR's 2+ bilat, sensation intact and PERRL, EOMI, accommodation nl, no face palsy, no dysarthria Psychiatric: A+Ox3, euthymic affect Lymphatic: no cervical or axillary lymphadenopathy Results & Data Vital Signs (Past 12 Hours) Vital Signs Temp Pulse Pulse Resp BP Pulse Ox 01/01/19 08:00 36.7 C 67 18 170/91 H 98 01/01/19 07:54 75 Laboratory Results Laboratory Results - last 24 hr 01/01/19 01/01/19 05:41 05:41 WBC 4.72 L RBC 3.42 L Hgb 10.7 L Hct 32.6 L MCV 95.3 MCH 31.3 MCHC 32.8 RDW Std Deviation 47.9 H RDW Coeff of Theresa 13.7 Plt Count 165 MPV 9.4 Sodium 142 Potassium 4.8 Chloride 111 H Carbon Dioxide 24 Anion Gap 7.0 BUN 123 H Creatinine 11.90 H* D Est Cr Clr Drug Dosing 9.4 Est GFR ( Amer) 4.8 Est GFR (Non-Af Amer) 4.2 BUN/Creatinine Ratio 10.5 Glucose 94 Calcium 6.7 L Total Bilirubin 0.5 AST 13 L ALT 23 Alkaline Phosphatase 81 Total Protein 6.1 L Albumin 2.2 L Globulin 3.9 Albumin/Globulin Ratio 0.6 L Medications Administered Current Inpatient Medications Acetaminophen (Tylenol) 650 mg PO Q4H PRN PRN Reason: Pain or Fever Stop: 01/26/19 16:49 Last Admin: 12/31/18 21:11 Dose: 650 mg Documented by: Al Hydrox/Mg Hydrox/Simethicone (Maalox) 15 ml PO Q4H PRN PRN Reason: Dyspepsia Stop: 01/26/19 16:49 Calcium Acetate (Phoslo) 667 mg PO BIDM [facility] Stop: 01/26/19 16:59 Last Admin: 01/01/19 08:39 Dose: 667 mg Documented by: Cyanocobalamin (Vitamin B-12) 1,000 mcg PO QAM [facility] Stop: 01/27/19 08:59 Last Admin: 01/01/19 08:40 Dose: 1,000 mcg Documented by: Cyclobenzaprine HCl (Flexeril) 10 mg PO TID PRN PRN Reason: Muscle Spasm Stop: 01/30/19 13:59 Last Admin: 01/01/19 08:40 Dose: 10 mg Documented by: Duloxetine HCl (Cymbalta) 20 mg PO [facility] Stop: 01/27/19 08:59 Last Admin: 01/01/19 08:39 Dose: 20 mg Documented by: Febuxostat (Uloric) 80 mg PO QAM [facility] Stop: 01/27/19 08:59 Last Admin: 01/01/19 08:39 Dose: 80 mg Documented by: Furosemide (Lasix) 80 mg PO Q3D@0900 [facility] Stop: 01/29/19 08:59 Last Admin: 12/30/18 08:25 Dose: Not Given Documented by: Gabapentin (Neurontin) 600 mg PO BID [facility] Stop: 01/26/19 20:59 Last Admin: 01/01/19 08:40 Dose: 600 mg Documented by: Heparin Sodium (Porcine) (Heparin Sodium (Porcine)) 5,000 units SQ Q12H [facility] Stop: 01/26/19 20:59 Last Admin: 01/01/19 08:40 Dose: 5,000 units Documented by: Ceftaroline Fosamil 200 mg/ (Sodium Chloride) 256.6667 mls @ 250 mls/hr IV Q12H [facility]; Protocol Stop: 01/07/19 05:59 Last Infusion: 01/01/19 07:18 Dose: Infused Documented by: Ondansetron HCl (Zofran) 4 mg IV Q6H PRN PRN Reason: Nausea Stop: 01/26/19 16:49 Pantoprazole Sodium (Protonix) 40 mg PO QAM [facility] Stop: 01/27/19 08:59 Last Admin: 01/01/19 08:40 Dose: 40 mg Documented by: Pyridoxine HCl (Vitamin B-6) 50 mg PO DAILY [facility] Stop: 01/27/19 08:59 Last Admin: 01/01/19 08:40 Dose: 50 mg Documented by: Simvastatin (Zocor) 40 mg PO QPM [facility] Stop: 01/26/19 20:59 Last Admin: 12/31/18 21:12 Dose: 40 mg Documented by: Sodium Bicarbonate (Sodium Bicarbonate) 1,300 mg PO BID [facility] Stop: 01/27/19 11:59 Last Admin: 01/01/19 08:39 Dose: 1,300 mg Documented by: Vitamin B Complex (Vitamin B Complex) 1 tab PO DAILY [facility] Stop: 01/29/19 08:59 Last Admin: 01/01/19 08:39 Dose: 1 tab Documented by: PG Care Time/CCT Total # of Minutes Spent Total Time Spent with Patient: Total time spent is greater than 50% in coordination of care (as documented) at patient's floor/unit and/or counseling patient:
[2019-01-01] MEDS: SIMVASTATIN 40 MG TAB PO SCH (20:10)
[2019-01-02] MEDS: CEFTAROLINE FOSAMIL ACETATE 200 MG in SODIUM CHLORIDE 0.9% 250 ML IV SCH ×2 (05:26→17:30)
[2019-01-02] MEDS: CYCLOBENZAPRINE HCL 10 MG TAB PO PRN (05:29)
[2019-01-02] MEDS: ACETAMINOPHEN 325 MG TAB PO PRN ×2 (06:08→23:41)
[2019-01-02 06:17] LABS: Hematocrit (blood only) 29.6 % (42-52); Hemoglobin 9.7 g/dL (14.0-18.0); Mean Corpuscular Hgb Conc 32.8 g/dL (32-36); Mean Corpuscular Volume 96.4 fL (80-100); Mean Platelet Volume 9.7 fL (7.4-10.4); Platelet Count 178 K/uL (130-400); RDW Coefficient of Variation 13.6 % (11.5-14.5); RDW Standard Deviation 47.9 fL (36.4-46.3); Red Blood Count 3.07 M/uL (4.7-6.1); White Blood Count 5.05 K/uL (4.8-10.8)
[2019-01-02 07:08] LABS: BUN Creatinine Ratio 10.1 (10-20); Calcium 6.6 mg/dl (8.5-10.1); Est GFR (African American) 4.6; Potassium 4.8 mmol/L (3.5-5.1)
[2019-01-02] MEDS: CALCIUM ACETATE 667 MG CAP PO SCH ×2 (08:27→17:04)
[2019-01-02] MEDS: CYANOCOBALAMIN 500 MCG TABLET (VITAMIN B-12) PO SCH (08:27)
[2019-01-02] MEDS: SODIUM BICARBONATE 650 MG TAB PO SCH ×2 (08:27→20:22)
[2019-01-02] MEDS: GABAPENTIN 600 MG TAB PO SCH ×2 (08:28→20:22)
[2019-01-02] MEDS: DULOXETINE HCL 20 MG CAP PO SCH (08:28)
[2019-01-02] MEDS: VITAMIN B COMPLEX TAB PO SCH (08:28)
[2019-01-02] MEDS: FEBUXOSTAT 40 MG TABLET PO SCH (08:28)
[2019-01-02] MEDS: FUROSEMIDE 80 MG TAB PO SCH (08:28)
[2019-01-02] MEDS: PANTOprazole 40 MG TAB PO SCH (08:28)
[2019-01-02] MEDS: PYRIDOXINE HCL 50 MG TAB PO SCH (08:28)
--- NOTE | 2019-01-02 10:09 | Nephrology Progress Note ---
Date of Service January 02, 2019 Assessment & Plan (1) End stage renal disease: -- Volume status & electrolyte balance are acceptable. No acute indication for HD today -- 12/25 AVF doppler w/ high grade stenosis of venous outflow. workforce staffing advisor unable to cannulate AVF for HD -- Discussed POC w/ Vascular Surgery this morning. Patient to be NPO after MN for possible fistulagram today -- Recommend continued hospitalization until functional dialysis access can be established -- Plan next HD 01/03. Orders have been placed in EMR and HD RN notified (2) Hyperphosphatemia: --Calcium Acetate to per be provided with meals. Low phosphorus diet. (3) Sarcoidosis: --There is no tissue diagnosis but the patient's clinical history is certainly suggestive of sarcoidosis affecting his kidneys. I suspect he has chronic interstitial nephritis associated with sarcoidosis versus chronic granuloma formation which has not been seen on his CT scan. -- Hypercalcemia attributed to underlying sarcoidosis. Improving with prednisone. Patient now hypocalcemic. This should improve with HD. Subjective Mr. Prado was seen & examined in his hospital room this morning. He currently denies angina, dyspnea or nausea. He notes that his LLE cellulitis is improving Review of Systems Constitutional: no fever, no chills and no weakness Eyes: no worsening vision and no problem reported Ear, Nose, Mouth, Throat: no problem reported Respiratory: no cough and no dyspnea Cardiovascular: no chest pain, no palpitations and no edema Gastrointestinal: no abdominal pain, no nausea, no vomiting and no diarrhea/loose stools Genitourinary: no dysuria, no urinary hesitancy and no hematuria Musculoskeletal: no back pain Integumentary: no rash Neurologic: no falls, no dizziness and no confusion Physical Exam Constitutional: + overweight Eyes: PERRL, conjunctivae normal, anicteric sclerae ENMT: external ear and nose normal, oropharynx normal Neck: trachea midline, no thyromegaly Respiratory: normal respiratory effort, lungs clear to auscultation Cardiovascular: RRR, no murmur, no edema Extremities: + AV fistula (+ bruit) Gastrointestinal (Abdomen): normal bowel sounds, soft, nontender, no hepatosplenomegaly Musculoskeletal: no cyanosis or clubbing, extremities motor strength 5/5 Skin: + erythema (L calf) Neurologic: awake; not confused Results & Data Vital Signs (Past 12 Hours) Vital Signs Temp Pulse Pulse Resp BP Pulse Ox 01/02/19 07:06 36.6 C 68 16 160/89 H 96 01/01/19 23:33 79 01/01/19 22:39 36.4 C L 71 20 177/80 H 99 01/01/19 22:20 80 Laboratory Results Laboratory Tests 01/02/19 01/02/19 05:54 05:54 WBC 5.05 Hgb 9.7 L Hct 29.6 L Plt Count 178 Sodium 143 Potassium 4.8 Chloride 111 H Carbon Dioxide 20 L BUN 125 H Creatinine 12.40 H* D Glucose 98 PG Care Time/CCT Total # of Minutes Spent Total Time Spent with Patient: Total time spent is greater than 50% in coordination of care (as documented) at patient's floor/unit and/or counseling patient:
--- NOTE | 2019-01-02 10:56 | Infectious Disease Consult ---
Date of Consultation January 02, 2019 Assessment & Plan (1) Cellulitis: can continue with teflaro for now while in hospital. would give 21 days total. upon d/c can change to doxy 100mg po bid to complete course. elevate leg. no new ID recs at this time. History of Present Illness Attending Physician: Mega Flores DO pt admitted with lle cellulitis and swelling, negative doppler and was placed on Teflaro, consult was placed for ID for abx approval but no notification of conult until yesterday afternoon. pt has been on IV abx since admission and is tolerating well. states leg is improving, denies any pain, states swelling is somewhat better, afebrile. able to ambulate without pain. Pt known to have ESRD and has not been on HD. creat significantly elevated, 12 today. States he is to have HD access placed today or tomorrow and will start HD prior to d/c. making urine, denies abd pain, no n/v/d. no cp, sob, cough, mandel. no cultures for review. overall feeling better. Allergies Allergy/AdvReac Type Severity Reaction Status Date / Time allopurinol Allergy Unknown Rash Verified 12/27/18 11:56 Penicillins Allergy Unknown Unknown Verified 12/27/18 11:56 Home Medications Home Medications Medication Instructions Recorded Confirmed Type cyanocobalamin (vitamin B-12) 1,000 mcg PO QAM 06/22/18 12/27/18 History duloxetine 20 mg PO QAM 06/22/18 12/27/18 History febuxostat [Uloric] 80 mg PO QAM 06/22/18 12/27/18 History omeprazole 40 mg PO QAM 06/22/18 12/27/18 History simvastatin 40 mg PO QPM 06/22/18 12/27/18 History Folbic 1 tab PO QAM 11/12/18 12/27/18 History gabapentin 600 mg PO BID #0 cap 11/14/18 12/27/18 Rx furosemide 80 mg tablet 80 mg PO .COMPLEX tab 12/22/18 12/27/18 History prednisone 20 mg tablet 20 mg PO DAILY 12/22/18 12/27/18 History pyridoxine (vitamin B6) 50 mg 50 mg PO DAILY tab 12/22/18 12/27/18 History tablet calcium acetate 667 mg PO BID 12/25/18 12/27/18 History cephalexin [Keflex] 250 mg PO DAILY #10 cap 12/25/18 12/27/18 Rx prednisone 50 mg PO DAILY 12/25/18 12/27/18 History Patient History Medical History Hyperlipidemia (Chronic) End stage renal disease (Chronic) Chronic kidney disease (Acute) Deep vein blood clot of left lower extremity S/P LEFT LEG SURGERY (EXCISION OF MELANOMA LEFT LEG) 10 YEARS AGO. Gout Hyperlipidemia Hypertension Sarcoidosis Sleep apnea CPAP Surgical History History of melanoma excision History of tonsillectomy History of tooth extraction Family History Other Cancer Lung disease Social History Preferred Language: Burmese Communication Ability: Effective Zipper Lining Folder Required: No Beliefs That Will Affect Care: None marital status: Current Living Situation: Spouse Other Information That Helps Us Care for You: No Feels Safe at Home: Yes Safety Concerns: Feels Safe At This Time Smoking Status: Never smoker Do You Dip or Chew Tobacco: No ; Second Hand Exposure: No ; Tobacco Cessation Education Requested by Patient: No Hx Alcohol Use: No Hx Substance Use: No Review of Systems Review of Systems: All systems reviewed & are unremarkable except as noted in HPI & below Physical Exam Constitutional: WD/WN, vitals as above Eyes: PERRL, conjunctivae normal, anicteric sclerae ENMT: external ear and nose normal, oropharynx normal Neck: normal visual inspection Respiratory: normal respiratory effort, lungs clear to auscultation Cardiovascular: RRR, no murmur, no edema Gastrointestinal (Abdomen): normal bowel sounds, soft, nontender, no hepatosplenomegaly Musculoskeletal: no cyanosis or clubbing, extremities motor strength 5/5 Skin: no rashes, warm and dry lle swelling noted, multiple scabs/eschars left ant calf, no open wounds, min erythema, no warmth, non tender. chronic stasis changes noted b/l Psychiatric: A+Ox3, euthymic affect Results & Data Vital Signs (Past 12 Hours) Vital Signs Temp Pulse Pulse Resp BP Pulse Ox 01/02/19 07:06 36.6 C 68 16 160/89 H 96 01/01/19 23:33 79 PG Care Time/CCT Total # of Minutes Spent Total Time Spent with Patient: Total time spent is greater than 50% in coordination of care (as documented) at patient's floor/unit and/or counseling patient:
--- NOTE | 2019-01-02 11:29 | Communication Note ---
Date of Service: January 02, 2019 Pt unable to have procedure today d/t time constraints. Will continue with plan for L forearm fistulagram and possible permcath insertion in OR tomorrow morning.
--- NOTE | 2019-01-02 15:35 | Hospitalist Progress Note ---
Date of Service January 02, 2019 Assessment & Plan (1) Cellulitis of left leg: Failed outpatient treatment with Keflex. Continue Teflaro for time being showing good response no fever, redness decreases every day, minimal warmth and no tenderness able to ambulate on the left leg which is major improvement appreciate consult from Dr. Ambrocio, plan for Doxycycline on discharge will require 21 days total (2) End stage renal disease: patient requiring hemodialysis unfortunately his fistula could not be accessed on 12/31 due to stenosis will need fistulogram, intervention on 01/[address] Perkins may get a Permacath depending on results of fistulogram Cr is 12, electrolytes stable Dr. Thornton following has secondary hyperparathyroidism with high phosphorus continue phosphate binders (3) Hyperlipidemia: Treated with statin therapy (4) DVT prophylaxis: Low-dose Lovenox daily Subjective patient doing okay, he has an occasional headache and sore neck the Flexeril helps, makes him sleep left leg looking better, appreciate ID recommendations plan for fistulogram tomorrow with possible permacath insertion with vascular surgery reviewed labs, Cr is 12, electrolytes stable poor appetite, discussed that it should improve with several HD sessions Review of Systems Review of Systems: All systems reviewed & are unremarkable except as noted in HPI & below Constitutional: + fatigue and + weakness; no fever, no chills and no sweats Musculoskeletal: + neck pain Neurologic: + headache(s) Physical Exam Constitutional: WD/WN, vitals as above + obese Eyes: PERRL, conjunctivae normal, anicteric sclerae ENMT: external ear and nose normal, oropharynx normal Neck: trachea midline, no thyromegaly Respiratory: normal respiratory effort, lungs clear to auscultation Cardiovascular: RRR, no murmur, no edema Gastrointestinal (Abdomen): normal bowel sounds, soft, nontender, no hepatosplenomegaly Musculoskeletal: no cyanosis or clubbing, extremities motor strength 5/5 Skin: + erythema (left lower leg, minimal warmth, no tenderness) Neurologic: patellar DTR's 2+ bilat, sensation intact and PERRL, EOMI, accommodation nl, no face palsy, no dysarthria Psychiatric: A+Ox3, euthymic affect Lymphatic: no cervical or axillary lymphadenopathy Results & Data Vital Signs (Past 12 Hours) Vital Signs Temp Pulse Resp BP Pulse Ox 01/02/19 07:06 36.6 C 68 16 160/89 H 96 Laboratory Results Laboratory Results - last 24 hr 01/02/19 01/02/19 05:54 05:54 WBC 5.05 RBC 3.07 L Hgb 9.7 L Hct 29.6 L MCV 96.4 MCH 31.6 MCHC 32.8 RDW Std Deviation 47.9 H RDW Coeff of Theresa 13.6 Plt Count 178 MPV 9.7 Sodium 143 Potassium 4.8 Chloride 111 H Carbon Dioxide 20 L Anion Gap 12.0 H BUN 125 H Creatinine 12.40 H* D Est Cr Clr Drug Dosing 9.0 Est GFR ( Amer) 4.6 Est GFR (Non-Af Amer) 4.0 BUN/Creatinine Ratio 10.1 Glucose 98 Calcium 6.6 L Medications Administered Current Inpatient Medications Acetaminophen (Tylenol) 650 mg PO Q4H PRN PRN Reason: Pain or Fever Stop: 01/26/19 16:49 Last Admin: 01/02/19 06:08 Dose: 650 mg Documented by: Al Hydrox/Mg Hydrox/Simethicone (Maalox) 15 ml PO Q4H PRN PRN Reason: Dyspepsia Stop: 01/26/19 16:49 Calcium Acetate (Phoslo) 667 mg PO BIDM [facility] Stop: 01/26/19 16:59 Last Admin: 01/02/19 08:27 Dose: Not Given Documented by: Cyanocobalamin (Vitamin B-12) [facility] [place] Stop: 01/27/19 08:59 Last Admin: 01/02/19 08:27 Dose: 1,000 mcg Documented by: Cyclobenzaprine HCl (Flexeril) 10 mg PO TID PRN PRN Reason: Muscle Spasm Stop: 01/30/19 13:59 Last Admin: 01/02/19 05:29 Dose: 10 mg Documented by: Duloxetine HCl (Cymbalta) 20 mg PO [facility] Stop: 01/27/19 08:59 Last Admin: 01/02/19 08:28 Dose: 20 mg Documented by: Epoetin Baldev (Procrit) 10,000 units IV TODAY@0700 [facility] Stop: 01/03/19 15:00 Febuxostat (Uloric) 80 mg PO [facility] Stop: 01/27/19 08:59 Last Admin: 01/02/19 08:28 Dose: 80 mg Documented by: Furosemide (Lasix) 80 mg PO Q3D@0900 [facility] Stop: 01/29/19 08:59 Last Admin: 01/02/19 08:28 Dose: 80 mg Documented by: Gabapentin (Neurontin) 600 mg PO BID [facility] Stop: 01/26/19 20:59 Last Admin: 01/02/19 08:28 Dose: 600 mg Documented by: Heparin Sodium (Porcine) (Heparin Sodium (Porcine)) 5,000 units SQ Q12H [facility] Stop: 01/26/19 20:59 Last Admin: 01/01/19 20:14 Dose: Not Given Documented by: Ceftaroline Fosamil 200 mg/ (Sodium Chloride) 256.6667 mls @ 250 mls/hr IV Q12H [facility]; Protocol Stop: 01/07/19 05:59 Last Infusion: 01/02/19 06:33 Dose: Infused Documented by: Sodium Chloride (Nss 1000ml) 1,000 mls @ 0 mls/hr IV .Q0M PRN PRN Reason: For Hemodialysis Use ONLY Stop: 01/03/19 12:59 Clindamycin Phosphate (Cleocin) 600 mg in 54 mls @ 100 mls/hr IV PREOP [facility] Stop: 01/04/19 05:59 Miscellaneous (No Heparin In Dialysis) 1 ea N/A ONE ONE Stop: 01/03/19 07:01 Ondansetron HCl (Zofran) 4 mg IV Q6H PRN PRN Reason: Nausea Stop: 01/26/19 16:49 Pantoprazole Sodium (Protonix) 40 mg PO QAM [facility] Stop: 01/27/19 08:59 Last Admin: 01/02/19 08:28 Dose: 40 mg Documented by: Pyridoxine HCl (Vitamin B-6) 50 mg PO DAILY [facility] Stop: 01/27/19 08:59 Last Admin: 01/02/19 08:28 Dose: 50 mg Documented by: Simvastatin (Zocor) 40 mg PO QPM [facility] Stop: 01/26/19 20:59 Last Admin: 01/01/19 20:10 Dose: 40 mg Documented by: Sodium Bicarbonate (Sodium Bicarbonate) 1,300 mg PO BID [facility] Stop: 01/27/19 11:59 Last Admin: 01/02/19 08:27 Dose: 1,300 mg Documented by: Vitamin B Complex (Vitamin B Complex) 1 tab PO DAILY [facility] Stop: 01/29/19 08:59 Last Admin: 01/02/19 08:28 Dose: 1 tab Documented by: PG Care Time/CCT Total # of Minutes Spent Total Time Spent with Patient: Total time spent is greater than 50% in coordination of care (as documented) at patient's floor/unit and/or counseling patient:
[2019-01-02] MEDS: SIMVASTATIN 40 MG TAB PO SCH (20:23)
[2019-01-02] MEDS: HEPARIN SOD 5,000 UNIT/0.5 ML VIAL SQ SCH (20:23)
[2019-01-03 05:44] LABS: Hematocrit (blood only) 29.7 % (42-52); Mean Corpuscular Hgb Conc 33.7 g/dL (32-36); Mean Corpuscular Volume 94.6 fL (80-100); Mean Platelet Volume 9.2 fL (7.4-10.4); Platelet Count 166 K/uL (130-400); RDW Coefficient of Variation 13.8 % (11.5-14.5); Red Blood Count 3.14 M/uL (4.7-6.1); White Blood Count 4.32 K/uL (4.8-10.8)
[2019-01-03] MEDS ORDERED: CLINDAMYCIN 600 MG/54 ML BAG IV SCH (06:00)
[2019-01-03] MEDS: CEFTAROLINE FOSAMIL ACETATE 200 MG in SODIUM CHLORIDE 0.9% 250 ML IV SCH ×2 (06:02→19:47)
[2019-01-03 06:19] LABS: BUN Creatinine Ratio 9.9 (10-20); Creatinine Clr Calc Pharmacy 8.7 ml/min; Est GFR (African American) 4.4; Est GFR (Non-African American) 3.8; Potassium 4.6 mmol/L (3.5-5.1)
[2019-01-03] MEDS ORDERED: EPOETIN ALFA 10,000 UNITS/ML VIAL IV SCH (07:00)
[2019-01-03] MEDS ORDERED: SODIUM CHLORIDE 0.9% 1000ML 1,000 ML IV PRN (07:00)
[2019-01-03] MEDS: CALCIUM ACETATE 667 MG CAP PO SCH ×2 (07:22→19:47)
[2019-01-03] MEDS: HEPARIN SOD 5,000 UNIT/0.5 ML VIAL SQ SCH ×2 (07:23→22:15)
[2019-01-03] MEDS: GABAPENTIN 600 MG TAB PO SCH ×2 (07:41→22:16)
[2019-01-03] MEDS: DULOXETINE HCL 20 MG CAP PO SCH (07:41)
[2019-01-03] MEDS: FEBUXOSTAT 40 MG TABLET PO SCH (07:41)
[2019-01-03] MEDS: VITAMIN B COMPLEX TAB PO SCH (07:41)
[2019-01-03] MEDS: PANTOprazole 40 MG TAB PO SCH (07:41)
[2019-01-03] MEDS: CYANOCOBALAMIN 500 MCG TABLET (VITAMIN B-12) PO SCH (07:41)
[2019-01-03] MEDS: SODIUM BICARBONATE 650 MG TAB PO SCH ×2 (07:41→22:16)
[2019-01-03] MEDS: PYRIDOXINE HCL 50 MG TAB PO SCH (07:42)
--- NOTE | 2019-01-03 10:39 | History & Physical Bridge Note ---
Date of Service January 03, 2019 History & Physical Bridge Note Patient is to have a fistulogram with possible intervention today. If the fistula can not be corrected he may require a permcath. I have discussed the risks options and benefits of the procedure with the patient. The patient understands the risks options and benefits and agrees to the procedure. I have examined the patient, reviewed the History & Physical and in the interval since the performance of the History & Physical I have noted the following changes of clinical significance: no changes noted
[2019-01-03] MEDS ORDERED: LIDOCAINE HCL 1% 20 ML VIAL ONE (10:52)
[2019-01-03] MEDS ORDERED: MIDAZOLAM HCL 1 MG/ML 2ML VIAL ONE ×2 (11:12→12:30)
[2019-01-03] MEDS ORDERED: fentaNYL citrate 100 MCG/2 ML VIAL ONE ×2 (11:12→13:04)
--- NOTE | 2019-01-03 11:27 | Pre Anesthesia Assessment ---
Date of Service January 03, 2019 Pre Sedation Assessment Vital Signs Temp Pulse Resp BP Pulse Ox 01/03/19 09:49 36.6 C 70 18 180/86 H 97 01/03/19 07:34 36.4 C L 66 16 154/92 H 98 01/02/19 23:25 36.4 C L 69 19 159/95 H 97 01/02/19 19:46 36.5 C 73 20 155/89 H 99 01/02/19 15:37 36.4 C L 68 20 178/88 H 99 Cardiovascular RRR, no murmur, no edema Respiratory normal respiratory effort, lungs clear to auscultation Pre-Sedation Airway Assessment Smoking Status: Never smoker Hx Sleep Apnea: Yes Short, Thick Neck: No Thyromental Distance: > or= 3.5 Finger Breadths Oral Cavity: + WNL Mallampati Class: I ASA: ASA3 NPO Status Date of Last Intake of Fluids: 01/02/19 Time of Last Intake of Fluids: 23:00 Date of Last Intake of Solid Food: 01/02/19 Time of Last Intake of Solid Foods: 23:00 Procedure Planning Contraindications for Sedation: none Current Medications Reviewed: Yes Notes The planned sedation has been discussed with the patient. Informed Consent was obtained. I have identified the patient, determined the appropriateness of sedation and have assessed the patient immediately prior to the procedure. All medicine(s) and interventions are by my order.
[2019-01-03] MEDS ORDERED: HEPARIN SOD (PORCINE) 5,000 UNITS/ML VIAL ONE (12:19)
--- NOTE | 2019-01-03 13:33 | Post Operative Brief Note ---
Immediate Post Op Note v1 Date of Surgery January 03, 2019 Pre & Post Diagnosis Operation Date: 01/03/19 09:50 Pre-Op Diagnosis: Malfunctioning Left Arm AV Fistula Post-Op Diagnosis: Malfunctioning Left Arm AV Fistula. Procedure Operation Date: 01/03/19 09:50 Actual Procedures p Left Upper Extremity Fistulogram, Percutaneous Transluminal Angioplasty Peripheral Venous, Embolization of Two Side Branches; Moderate Concious Sedation (Left) - Manish Perkins MD s Perm Catheter Placement, Right Internal Jugular Approach, Ultrasound Localization of Right Internal Jugular Vein, Fluoroscopy for Positioning; Moderate Concious Sedation 1131 to 1352(Right) - Manish Perkins MD Surgeon Manish Perkins MD Ur Coordinator MD Sheree Estimated Blood Loss 50 Findings Consistent with Post-Op Diagnosis Anesthesia Type RN Sedation Complications none Disposition Accompanied Patient To Recovery: No Disposition: Recovery Room
[2019-01-03] MEDS ORDERED: OPTIRAY 300 IV PRN (13:41)
--- NOTE | 2019-01-03 13:47 | Procedure Note ---
Angiogram Post Procedure Fluoroscopy Time (minutes): 14.2 Radiation (mGy): 49 Contrast: 50cc Post Operative Report Pre & Post Diagnosis Operation Date: 01/03/19 09:50 Pre-Op Diagnosis: Malfunctioning Left Arm AV Fistula Post-Op Diagnosis: Malfunctioning Left Arm AV Fistula. Procedure Operation Date: 01/03/19 09:50 Actual Procedures p Left Upper Extremity Fistulogram, Percutaneous Transluminal Angioplasty Peripheral Venous, Embolization of Two Side Branches; Moderate Concious Sedation (Left) - Manish Perkins MD s Perm Catheter Placement, Right Internal Jugular Approach, Ultrasound Localization of Right Internal Jugular Vein, Fluoroscopy for Positioning; Moderate Concious Sedation 1131 to(Right) - Manish Perkins MD Surgeon Manish Perkins MD Reconciliation Machine Operator MD Sheree Estimated Blood Loss 50 Findings Consistent with Post-Op Diagnosis Specimens none Anesthesia Type RN Sedation Complications none Disposition Accompanied Patient To Recovery: No Disposition: Recovery Room Indications Malfunctioning left AV fistula Description of Procedure The patient was brought to the operating room and placed in the supine position. The left arm was prepped and drape in sterile fashion. The patient was identified and a timeout performed. The fistula was accessed about 1cm distal to the antecubital crease under direct ultrasound guidance using a 21g micropuncture introducer set. A 10-cm 5fr sheath was placed. An angiogram was performed which revealed two large venous branches, but due to forward flow we were unable to visualize the proximal fistula. An angled glidewire was advanced to the anastomosis and into the radial artery. A 5Fr angled glidecath was placed over the glidewire. An angiogram was again performed, which revealed stenosis of the proximal venous segment of the fistula and again demonstrated the aforementioned two venous branches. The catheter was removed. The 5Fr sheath was exchanged for a 6Fr sheath. An armada balloon (5.0 mm x 40mm x 80cm) was advanced to the stenotic proximal portion of the fistula and inflated. The balloon was removed, the glidecatheter was advanced again, and angiography was again performed. This revealed improvement in the proximal stenosis. Using the glidecath and glidewire, we then accessed the two venous branches in turn, which were located in the mid-proximal forearm. 6mm anita coils were used to coil embolize these venous branches. Two were deployed in the branch in the mid- forearm, while 2 coils were deployed in the branch in the proximal forearm. The catheter was withdrawn and a completion angiogram revealed improved flow through the fistula, and sluggish flow to only the proximal portion of the two venous branches with no contrast visualized past the coils. The catheter and sheaths were removed, and gentle pressure was held for 5 minutes. A good thrill was palpable over the fistula. At this time we turned our attention to power catheter placement. The right proximal chest and neck were prepped and draped in sterile fashion. Another timeout was performed. Local anesthesia was then administered to the appropriate areas of the neck and chest wall. Ultrasound was then used to locate the right internal jugular vein. The vein compressed easily, had no filing defects, and was patent. The vein was then punctured under direct ultrasound imaging. A guidewire was then passed centrally under fluoroscopic imaging. A stab wound was then made in the anterior chest wall and a 19 cm permcath was passed from the stab wound on the chest wall to the puncture site on the neck. The puncture site was then dilated till the 14Fr peel away sheath was inserted. The permcath was then inserted through the sheath to a central position in the distal superior vena cava. The peel away sheath was then removed. There was a kink in the catheter where it entered the IJ, which we tried to correct by placing a glidewire and re-positioning the catheter. This was unsuccessful, so we exchanged the 19cm permcath for a 23cm percath, however a kink was still noted so we tried to correct by placing a glidewire and re- positioning the catheter. This was unsuccessful. The decision was made to access the right IJ more proximally. The previously placed catheter was removed and gentle pressure was held until hemostasis was obtained. Local anesthesia was then administered to the appropriate areas of the neck, more proximally than our previous access site. Ultrasound was then used to locate the right internal jugular vein. The vein compressed easily, had no filing defects, and was patent. The vein was then punctured under direct ultrasound imaging. A guidewire was then passed centrally under fluoroscopic im aging. A 19 cm permcath was passed from the stab wound on the chest wall to the puncture site on the neck using the previously created tunnel. The puncture site was then dilated till the 14Fr peel away sheath was inserted. The permcath was then inserted through the sheath to a central position in the distal superior vena cava. The peel away sheath was then removed. The catheter was then sutured in place using nylon sutures. The puncture was then closed using a 4-0 Vicryl subcuticular suture. Dermabond was used for a dressing on the puncture site. Both ports aspirated and flushed easily and were then packed with heparin. A sterile dressing was applied to the catheter. The patient left the angio suite in good condition and tolerated the procedure well. The catheter was then sutured in place using nylon sutures. The puncture was then closed using a 4-0 Vicryl subcuticular suture. Dermabond was used for a dressing on the puncture site. Both ports aspirated and flushed easily and were then packed with heparin. A sterile dressing was applied to the catheter. The patient left the angio suite in good condition and tolerated the procedure well. Dr. Perkins was present and scrubbed for the entire procedure. I attest to the content of the Intraoperative Record and any orders documented therein. Any exceptions are noted below.
--- NOTE | 2019-01-03 13:58 | Post Anesthesia Assessment ---
Date of Service January 03, 2019 Post Sedation Assessment Vital Signs Temp Pulse Pulse Resp BP Pulse Ox 01/03/19 13:52 74 14 156/98 H 98 01/03/19 13:47 70 14 153/106 H 100 01/03/19 13:46 73 14 153/106 H 100 01/03/19 13:41 72 16 159/118 H 100 01/03/19 13:36 71 15 181/123 H 100 01/03/19 13:31 70 14 181/92 H 100 01/03/19 13:26 68 15 143/109 H 100 01/03/19 13:21 68 17 167/110 H 100 01/03/19 13:16 67 15 188/102 H 100 01/03/19 13:11 69 15 206/132 H 99 01/03/19 13:06 69 14 174/98 H 99 01/03/19 13:01 70 14 189/123 H 99 01/03/19 12:56 70 14 179/123 H 100 01/03/19 12:51 69 13 157/114 H 99 01/03/19 12:46 69 15 188/132 H 97 01/03/19 12:41 72 14 150/118 H 97 01/03/19 12:36 66 14 183/107 H 100 01/03/19 12:31 67 10 L 193/111 H 98 01/03/19 12:26 65 10 L 190/106 H 98 01/03/19 12:21 66 10 L 178/114 H 99 01/03/19 12:16 67 11 L 163/112 H 98 01/03/19 12:11 66 12 185/114 H 98 01/03/19 12:06 67 12 183/104 H 99 01/03/19 12:01 68 10 L 182/100 H 99 01/03/19 11:56 68 10 L 172/121 H 98 01/03/19 11:51 67 10 L 184/112 H 96 01/03/19 11:46 67 12 175/113 H 98 01/03/19 11:41 65 12 176/110 H 98 01/03/19 11:36 63 10 L 188/105 H 100 01/03/19 11:31 66 14 192/111 H 100 01/03/19 11:21 64 12 194/112 H 100 01/03/19 09:49 36.6 C 70 18 180/86 H 97 01/03/19 07:34 36.4 C L 66 16 154/92 H 98 01/02/19 23:25 36.4 C L 69 19 159/95 H 97 01/02/19 19:46 36.5 C 73 20 155/89 H 99 01/02/19 15:37 36.4 C L 68 20 178/88 H 99 Recovery Score Activity: Moves 4 extremities Respiration: Deep Breath/Cough Circulation: +/-20% PreAnes Value Consciousness: Fully Awake Oxygen Saturation: > 92% On Room Air Post Anesthesia Score: 10 Discharge Sedation Level of Care: Fast Track Phase II Post Sedation Plan On clinical assessment, the patient appears to have tolerated the sedation without complications. Patient is recovering as anticipated. Patient will continue to be monitored by nursing and may be discharged when s edation discharge criteria are met per below protocol. Upon Completions of procedure and additional 15 minutes continue every 5 minute vital signs and the P.A.R. score; then discharge to a Phase I or Fast Track to Phase II per the following guidelines: * Discharge Patient to appropriate Phase II area if PAR is 8 or greater or return to pre- procedure baseline. The post - procedure orders will be as directed. * If PAR score is less than 8 or not return to pre-procedure baseline then patient will follow Phase I monitoring till PAR is reached for Phase II. The Phase I may be done in procedure room or may call to secure a Phase I area. * If naloxone or flumazenil are used for reversal, hold in Phase I for continued monitoring from when last reversal dose was given for a minimum of 60 minutes or longer pending the nurse and/or physician discretion of patient condition before discharge to Phase II. Please call the Sedation Physician to re-evaluate and complete post-note for discharge to Phase II area. Do NOT discharge from procedure sedation or Phase 1 until post- sedation evaluation note is complete by procedure /sedation MD Sedation Discharge Instructions to be given to the patient at discharge to home.
--- NOTE | 2019-01-03 15:32 | Hospitalist Progress Note ---
Date of Service January 03, 2019 Assessment & Plan (1) Cellulitis of left leg: Failed outpatient treatment with Keflex. Continue Teflaro for time being showing good response no fever, redness decreases every day, minimal warmth and no tenderness able to ambulate on the left leg which is major improvement appreciate consult from Dr. Ambrocio, plan for Doxycycline on discharge will require 21 days total leg continues to improve on 01/03 (2) End stage renal disease: patient requiring hemodialysis unfortunately his fistula could not be accessed on 12/31 due to stenosis revision of left fistula done today, needs to mature for another 2 weeks right Permacath placed, plan for HD this evening if possible Cr is 12, electrolytes stable Dr. Thornton following has secondary hyperparathyroidism with high phosphorus continue phosphate binders (3) Hyperlipidemia: Treated with statin therapy (4) DVT prophylaxis: Low-dose Lovenox daily Subjective patient seen after surgery revision of left fistula and placement of right sided tunneled dialysis catheter updated sister at the bedside patient feeling okay, he is sleepy after anesthesia tentative plans for HD this evening Cr is 12, electrolytes stable left leg continues to improve, no pain, no fevers patient has not eaten yet after surgery Review of Systems Review of Systems: All systems reviewed & are unremarkable except as noted in HPI & below Physical Exam Constitutional: WD/WN, vitals as above + obese Eyes: PERRL, conjunctivae normal, anicteric sclerae ENMT: external ear and nose normal, oropharynx normal Neck: trachea midline, no thyromegaly Respiratory: normal respiratory effort, lungs clear to auscultation Cardiovascular: RRR, no murmur, no edema Gastrointestinal (Abdomen): normal bowel sounds, soft, nontender, no hepatosplenomegaly Musculoskeletal: no cyanosis or clubbing, extremities motor strength 5/5 Skin: + erythema (left lower leg, minimal warmth, no tenderness) Neurologic: patellar DTR's 2+ bilat, sensation intact and PERRL, EOMI, accommodation nl, no face palsy, no dysarthria Psychiatric: A+Ox3, euthymic affect Lymphatic: no cervical or axillary lymphadenopathy Results & Data Vital Signs (Past 12 Hours) Vital Signs Temp Pulse Pulse Resp BP Pulse Ox 01/03/19 14:35 36.4 C L 71 18 163/86 H 96 01/03/19 13:52 74 14 156/98 H 98 01/03/19 13:47 70 14 153/106 H 100 01/03/19 13:46 73 14 153/106 H 100 01/03/19 13:41 72 16 159/118 H 100 01/03/19 13:36 71 15 181/123 H 100 01/03/19 13:31 70 14 181/92 H 100 01/03/19 13:26 68 15 143/109 H 100 01/03/19 13:21 68 17 167/110 H 100 01/03/19 13:16 67 15 188/102 H 100 01/03/19 13:11 69 15 206/132 H 99 01/03/19 13:06 69 14 174/98 H 99 01/03/19 13:01 70 14 189/123 H 99 01/03/19 12:56 70 14 179/123 H 100 01/03/19 12:51 69 13 157/114 H 99 01/03/19 12:46 69 15 188/132 H 97 01/03/19 12:41 72 14 150/118 H 97 01/03/19 12:36 66 14 183/107 H 100 01/03/19 12:31 67 10 L 193/111 H 98 01/03/19 12:26 65 10 L 190/106 H 98 01/03/19 12:21 66 10 L 178/114 H 99 01/03/19 12:16 67 11 L 163/112 H 98 01/03/19 12:11 66 12 185/114 H 98 01/03/19 12:06 67 12 183/104 H 99 01/03/19 12:01 68 10 L 182/100 H 99 01/03/19 11:56 68 10 L 172/121 H 98 01/03/19 11:51 67 10 L 184/112 H 96 01/03/19 11:46 67 12 175/113 H 98 01/03/19 11:41 65 12 176/110 H 98 01/03/19 11:36 63 10 L 188/105 H 100 01/03/19 11:31 66 14 192/111 H 100 01/03/19 11:21 64 12 194/112 H 100 01/03/19 09:49 36.6 C 70 18 180/86 H 97 01/03/19 07:34 36.4 C L 66 16 154/92 H 98 Laboratory Results Laboratory Results - last 24 hr 01/03/19 01/03/19 05:27 05:27 WBC 4.32 L RBC 3.14 L Hgb 10.0 L Hct 29.7 L MCV 94.6 MCH 31.8 MCHC 33.7 RDW Std Deviation 48.0 H RDW Coeff of Theresa 13.8 Plt Count 166 MPV 9.2 Sodium 143 Potassium 4.6 Chloride 111 H Carbon Dioxide 21 Anion Gap 11.0 BUN 128 H Creatinine 12.90 H* D Est Cr Clr Drug Dosing 8.7 Est GFR ( Amer) 4.4 Est GFR (Non-Af Amer) 3.8 BUN/Creatinine Ratio 9.9 L Glucose 92 Calcium 7.0 L Medications Administered Current Inpatient Medications Acetaminophen (Tylenol) 650 mg PO Q4H PRN PRN Reason: Pain or Fever Stop: 01/26/19 16:49 Last Admin: 01/02/19 23:41 Dose: 650 mg Documented by: Al Hydrox/Mg Hydrox/Simethicone (Maalox) 15 ml PO Q4H PRN PRN Reason: Dyspepsia Stop: 01/26/19 16:49 Calcium Acetate (Phoslo) 667 mg PO BIDM [facility] Stop: 01/26/19 16:59 Last Admin: 01/03/19 07:22 Dose: Not Given Documented by: Cyanocobalamin (Vitamin B-12) [facility] [place] [facility] [place]: 01/27/19 08:59 Last Admin: 01/03/19 07:41 Dose: 1,000 mcg Documented by: Cyclobenzaprine HCl (Flexeril) 10 mg PO TID PRN PRN Reason: Muscle Spasm Stop: 01/30/19 13:59 Last Admin: 01/02/19 05:29 Dose: 10 mg Documented by: Duloxetine HCl (Cymbalta) [facility] Stop: 01/27/19 08:59 Last Admin: 01/03/19 07:41 Dose: 20 mg Documented by: Febuxostat (Uloric) 80 [facility] [place]: 01/27/19 08:59 Last Admin: 01/03/19 07:41 Dose: 80 mg Documented by: Furosemide (Lasix) 80 mg PO Q3D@0900 [facility] Stop: 01/29/19 08:59 Last Admin: 01/02/19 08:28 Dose: 80 mg Documented by: Gabapentin (Neurontin) 600 mg PO BID [facility] Stop: 01/26/19 20:59 Last Admin: 01/03/19 07:41 Dose: 600 mg Documented by: Heparin Sodium (Porcine) (Heparin Sodium (Porcine)) 5,000 units SQ Q12H [facility] Stop: 01/26/19 20:59 Last Admin: 01/03/19 07:23 Dose: Not Given Documented by: Ceftaroline Fosamil 200 mg/ (Sodium Chloride) 256.6667 mls @ 250 mls/hr IV Q12H [facility]; Protocol Stop: 01/07/19 05:59 Last Infusion: 01/03/19 07:23 Dose: Infused Documented by: Ioversol (Optiray 300) 35 ml IV UD PRN PRN Reason: Interaction Checking Stop: 01/07/19 13:40 Last Admin: 01/03/19 13:43 Dose: 35 ml Documented by: Ondansetron HCl (Zofran) 4 mg IV Q6H PRN PRN Reason: Nausea Stop: 01/26/19 16:49 Oxycodone/Acetaminophen (Percocet 5mg/325mg) 1 tab PO Q4H PRN PRN Reason: Moderate Pain Stop: 01/17/19 13:51 Pantoprazole Sodium (Protonix) 40 mg PO QAM [facility] Stop: 01/27/19 08:59 Last Admin: 01/03/19 07:41 Dose: 40 mg Documented by: Pyridoxine HCl (Vitamin B-6) 50 mg PO DAILY [facility] Stop: 01/27/19 08:59 Last Admin: 01/03/19 07:42 Dose: 50 mg Documented by: Simvastatin (Zocor) 40 mg PO QPM [facility] Stop: 01/26/19 20:59 Last Admin: 01/02/19 20:23 Dose: 40 mg Documented by: Sodium Bicarbonate (Sodium Bicarbonate) 1,300 mg PO BID [facility] Stop: 01/27/19 11:59 Last Admin: 01/03/19 07:41 Dose: 1,300 mg Documented by: Vitamin B Complex (Vitamin B Complex) 1 tab PO DAILY [facility] Stop: 01/29/19 08:59 Last Admin: 01/03/19 07:41 Dose: 1 tab Documented by: PG Care Time/CCT Total # of Minutes Spent Total Time Spent with Patient: Total time spent is greater than 50% in coordination of care (as documented) at patient's floor/unit and/or counseling patient:
[2019-01-03] MEDS: OXYCODONE/ACETAMINOPHEN 5mg/325mg TAB PO PRN ×2 (15:47→19:45)
--- NOTE | 2019-01-03 17:43 | Progress Note ---
DATE: 01/03/2019 SUBJECTIVE: Mr. Prado says that he is feeling relatively well; however, he was quite groggy. Earlier today he did undergo a left forearm fistulogram. Apparently he was noted to have some stenosis of the venous side of the fistula. PCTA of the fistula was done. Additionally, he had an embolization of 2 apparent side branches of the fistula. The result was that he had a good, pulse, thrill and bruit over the fistula. However, he also had a PermCath placed in the right IJ. He has been started on dialysis for his treatment that was scheduled for today. He remains somewhat groggy. He denies shortness of breath. He says that his appetite has been good despite the complications and problems of this admission. He does maintain a reasonably good urine output. OBJECTIVE: GENERAL: On physical examination, he appeared to be somewhat lethargic. Nonetheless, he was easily arousable and answered questions appropriately. VITAL SIGNS: His vital signs after his procedure showed a blood pressure of 177/88 with a pulse of 71 and regular. His respiratory rate is 18 with a pulse ox of 96% on room air. He is afebrile. SKIN: Showed the scar over his left forearm from the creation of his AV fistula. He had evidence of recent needle track harrell over the fistula. PermCath was now present in the right IJ exiting beneath the distal right clavicle. The dressing was dry with no evidence of oozing. His skin turgor appeared normal. He had a large scar on the back of his left leg from the removal of a melanoma previously. He has no palpable lymphadenopathy. HEAD: Normal. EYES: Grossly normal. The ocular fundi were not examined. EARS, NOSE, MOUTH AND THROAT: All unremarkable. His oral mucous membranes are moist. NECK: Supple. There is no obvious jugular venous distention or carotid bruit. He has no thyromegaly. CHEST: Clear to auscultation. CARDIAC: Shows a regular rhythm. S1 and S2 are normal. I hear no definite murmur or gallop. ABDOMEN: Obese but nontender. He has no organomegaly or mass. EXTREMITIES: Show trace lower extremity edema. He had a left forearm AV fistula with a good, pulse, thrill and bruit. NEUROLOGIC: Shows no lateralizing changes. He was not confused, although he was somewhat groggy. He had no asterixis. PERTINENT LABORATORY WORK: From today showed a white count of 4320. His hemoglobin 10.0, his hematocrit 29.7. His platelet count was 166,000. His clinical chemistries from today showed a sodium of 143 mmol/L, potassium of 4.6 mmol/L, chloride of 111 mmol/L, and CO2 content of 21 mmol/L. His BUN was 128, his creatinine 12.90. His random blood sugar was 92. His serum calcium 7.0. His serum albumin done on January 01 was 2.2. Therefore, his corrected serum calcium would be closer to 9.0. ASSESSMENT: Mr. Prado appears to be doing well. He is groggy, probably related to the conscious sedation that he had for his procedure. He now has a PermCath in the right IJ and it is being used for dialysis. His dialysis treatment was started and his blood pressure improved but remains relatively high about an hour into his dialysis treatment. RECOMMENDATIONS: Will try to take at least 2 liters of fluid off him with his current dialysis treatment. No changes in his current medications. If the patient seems to be doing well tomorrow, I see no contraindication to his discharge for continued outpatient dialysis and followup.
[2019-01-03] MEDS: SIMVASTATIN 40 MG TAB PO SCH (22:17)
[2019-01-04] MEDS: OXYCODONE/ACETAMINOPHEN 5mg/325mg TAB PO PRN ×2 (04:06→09:51)
[2019-01-04] MEDS: CEFTAROLINE FOSAMIL ACETATE 200 MG in SODIUM CHLORIDE 0.9% 250 ML IV SCH ×2 (05:33→18:25)
[2019-01-04] MEDS: VITAMIN B COMPLEX TAB PO SCH (07:24)
[2019-01-04] MEDS: FEBUXOSTAT 40 MG TABLET PO SCH (07:24)
[2019-01-04] MEDS: DULOXETINE HCL 20 MG CAP PO SCH (07:24)
[2019-01-04] MEDS: CALCIUM ACETATE 667 MG CAP PO SCH ×2 (07:24→16:38)
[2019-01-04] MEDS: HEPARIN SOD 5,000 UNIT/0.5 ML VIAL SQ SCH ×2 (07:24→21:00)
[2019-01-04] MEDS: GABAPENTIN 600 MG TAB PO SCH ×2 (07:26→21:00)
[2019-01-04] MEDS: PANTOprazole 40 MG TAB PO SCH (07:26)
[2019-01-04] MEDS: CYANOCOBALAMIN 500 MCG TABLET (VITAMIN B-12) PO SCH (07:26)
[2019-01-04] MEDS: PYRIDOXINE HCL 50 MG TAB PO SCH (07:27)
[2019-01-04] MEDS: SODIUM BICARBONATE 650 MG TAB PO SCH ×2 (07:27→21:00)
[2019-01-04 08:23] LABS: BUN Creatinine Ratio 8.5 (10-20); Calcium 7.6 mg/dl (8.5-10.1); Est GFR (African American) 6.5; Est GFR (Non-African American) 5.6; Magnesium 2.2 mg/dl (1.8-2.4); Phosphorus 7.2 mg/dl (2.5-4.9); Potassium 4.6 mmol/L (3.5-5.1)
[2019-01-04] MEDS ORDERED: HEPARIN SOD (PORCINE) 1000 UNIT/ML 10 ML VIAL IV SCH (10:35)
[2019-01-04] MEDS ORDERED: SODIUM CHLORIDE 0.9% 1000ML 1,000 ML IV PRN (10:35)
[2019-01-04] MEDS ORDERED: EPOETIN ALFA 20,000 UNITS/ML VIAL IV ONE (10:35)
--- NOTE | 2019-01-04 11:06 | Progress Note ---
DATE: 01/04/2019 RENAL PROGRESS NOTE SUBJECTIVE: Mr. Prado is not feeling that well today. He is mildly nauseated, but he says that it is improved from yesterday. He denies having any shortness of breath. He has had no chills or sweats. He does have some discomfort around his PermCath site near the right shoulder, but that seems to be slightly better than it had been. In general, he still feels somewhat lethargic. OBJECTIVE: GENERAL: On physical examination, Mr. Prado appears as a chronically ill gentleman of about his stated age of 58. VITAL SIGNS: His blood pressure today is 146/88 with a pulse of 68 and regular, his respiratory rate is 18, his pulse ox 96% on room air. He is afebrile (36.4). SKIN: HI skin shows somewhat of a sallow complexion. He has a PermCath in the right IJ exiting beneath the distal right clavicle. He has a large scar on the back of his left calf. He has changes of chronic venous stasis dermatitis on his distal lower extremities. There is no real evidence of an acute cellulitis there at the current time. He has a scar from his left forearm AV fistula with a few needle track harrell over the fistula. LYMPHATICS: Show no palpable lymphadenopathy. HEAD: Grossly normal. EYES: Grossly normal. There is no scleral icterus. Pupils are equal and reactive to light. The ocular fundi were not examined. EARS, NOSE, MOUTH AND THROAT: Unremarkable. Oral mucous membranes are moist. NECK: Supple. I cannot see any evidence of jugular venous distention, but that may be because his neck is full related to his body habitus. He has no carotid bruit or thyromegaly. CHEST: Clear to auscultation. Diaphragms are somewhat elevated related to his body habitus. CARDIAC: Shows a regular rhythm. S1 and S2 are normal. He has a systolic murmur at the base radiating toward the neck. I hear no pericardial friction rubs and he has no gallops. ABDOMEN: Obese, but nontender. There is no organomegaly or mass. EXTREMITIES: Show trace to 1+ lower extremity edema. He has a left forearm AV fistula again with a good pulse, thrill and bruit. NEUROLOGIC: Shows no lateralizing changes. He is certainly more awake and alert than he was when seen postoperatively yesterday. He does, however, have some asterixis. PERTINENT LABORATORY WORK: From today shows a hemoglobin of 10.0 with a hematocrit of 29.7. His white count is 4320. Differential was not done. His platelet count today is 166,000. Clinical chemistries from today show a sodium of 142 mmol/L, potassium 4.6 mmol/L, chloride is 109 mmol/L, and CO2 content of 24 mmol/L. His BUN is down to 79 and his creatinine down to 9.30. His random blood sugar was 96, his serum calcium 7.6 and his phosphate 7.2. His serum magnesium is 2.2. ASSESSMENT: Mr. Prado still has uremic appearance and he does have asterixis. Mentally, he is not quite as sharp as I am used to seeing him being. I think he would benefit from yet another inpatient hemodialysis. Orders have been submitted. PLAN: Hemodialysis today. Hopefully, he will feel better tomorrow morning and should be able to be discharged at that point. The one change we can make in his medications is to use Renvela 800 mg 2 capsules with each meal as a phosphate binder as opposed to calcium acetate. Unfortunately, that is not on the hospital formulary. Therefore, I would begin that with his discharge medications. No other immediate changes or interventions. I will continue to follow him with you.
--- NOTE | 2019-01-04 14:21 | Hospitalist Progress Note ---
Date of Service January 04, 2019 Assessment & Plan (1) Cellulitis of left leg: Failed outpatient treatment with Keflex. Continue Teflaro for time being showing good response no fever, redness decreases every day, minimal warmth and no tenderness able to ambulate on the left leg which is major improvement appreciate consult from Dr. Ambrocio, plan for Doxycycline on discharge will require 21 days total leg looks really good on 01/04, best it has looked by far (2) End stage renal disease: patient requiring hemodialysis unfortunately his fistula could not be accessed on 12/31 due to stenosis revision of left fistula done 01/03, needs to mature for another 2 weeks right Permacath placed, received HD on 01/03 and plan again for today Cr is 9, electrolytes stable Dr. Pablo following has secondary hyperparathyroidism with high phosphorus continue phosphate binders plan to start outpatient HD on Saturday 01/06, likely d/c home tomorrow (3) Hyperlipidemia: Treated with statin therapy (4) DVT prophylaxis: Low-dose Lovenox daily Subjective patient sitting up in chair today, laughing and smiling no pain, left leg feels and looks good eating okay, still with poor appetite but no nausea or vomiting, no constipation at the bedside today, updated her spoke with Dr. Pablo about his care, plans for discharge he would like to dialyze patient today, get further fluid off plan for HD on Wednesday as outpatient, repeat labs in AM but patient can likely go home reviewed labs, electrolytes stable Review of Systems Review of Systems: All systems reviewed & are unremarkable except as noted in HPI & below Respiratory: no cough and no dyspnea Cardiovascular: + edema; no chest pain Gastrointestinal: + early satiety (poor appetite); no abdominal pain, no nausea, no vomiting, no constipation and no diarrhea/loose stools Integumentary: + erythema (left lower leg) Physical Exam Constitutional: WD/WN, vitals as above + obese Eyes: PERRL, conjunctivae normal, anicteric sclerae ENMT: external ear and nose normal, oropharynx normal Neck: trachea midline, no thyromegaly Respiratory: normal respiratory effort, lungs clear to auscultation Cardiovascular: RRR, no murmur, no edema Gastrointestinal (Abdomen): normal bowel sounds, soft, nontender, no hepatosplenomegaly Musculoskeletal: no cyanosis or clubbing, extremities motor strength 5/5 Skin: + erythema (left lower leg, minimal warmth, no tenderness) Neurologic: patellar DTR's 2+ bilat, sensation intact and PERRL, EOMI, ac commodation nl, no face palsy, no dysarthria Psychiatric: A+Ox3, euthymic affect Lymphatic: no cervical or axillary lymphadenopathy Results & Data Vital Signs (Past 12 Hours) Vital Signs Temp Pulse Pulse Resp BP BP Pulse Ox 01/04/19 14:00 72 136/95 01/04/19 13:40 70 155/98 H 01/04/19 13:20 69 132/91 01/04/19 13:00 77 128/83 01/04/19 12:40 70 124/79 01/04/19 12:20 70 133/81 01/04/19 12:00 69 130/73 01/04/19 11:40 67 152/82 H 01/04/19 11:17 36.7 C 67 67 157/90 H 01/04/19 06:59 36.4 C L 68 18 146/88 H 96 Laboratory Results Laboratory Results - last 24 hr 01/04/19 07:27 Sodium 142 Potassium 4.6 Chloride 109 H Carbon Dioxide 24 Anion Gap 9.0 BUN 79 H Creatinine 9.30 H* D Est Cr Clr Drug Dosing 12.0 Est GFR ( Amer) 6.5 Est GFR (Non-Af Amer) 5.6 BUN/Creatinine Ratio 8.5 L Glucose 96 Calcium 7.6 L Phosphorus 7.2 H Magnesium 2.2 Medications Administered Current Inpatient Medications Acetaminophen (Tylenol) 650 mg PO Q4H PRN PRN Reason: Pain or Fever Stop: 01/26/19 16:49 Last Admin: 01/02/19 23:41 Dose: 650 mg Documented by: Al Hydrox/Mg Hydrox/Simethicone (Maalox) 15 ml PO Q4H PRN PRN Reason: Dyspepsia Stop: 01/26/19 16:49 Calcium Acetate (Phoslo) 667 mg PO BIDM [facility] Stop: 01/26/19 16:59 Last Admin: 01/04/19 07:24 Dose: 667 mg Documented by: Cyanocobalamin (Vitamin B-12) 1,000 mcg PO QAM [facility] Stop: 01/27/19 08:59 Last Admin: 01/04/19 07:26 Dose: 1,000 mcg Documented by: Cyclobenzaprine HCl (Flexeril) 10 mg PO TID PRN PRN Reason: Muscle Spasm Stop: 01/30/19 13:59 Last Admin: 01/02/19 05:29 Dose: 10 mg Documented by: Duloxetine HCl (Cymbalta) 20 mg PO QAM [facility] Stop: 01/27/19 08:59 Last Admin: 01/04/19 07:24 Dose: 20 mg Documented by: Febuxostat (Uloric) 80 mg PO QAM [facility] Stop: 01/27/19 08:59 Last Admin: 01/04/19 07:24 Dose: 80 mg Documented by: Furosemide (Lasix) 80 mg PO Q3D@0900 [facility] Stop: 01/29/19 08:59 Last Admin: 01/02/19 08:28 Dose: 80 mg Documented by: Gabapentin (Neurontin) 600 mg PO BID [facility] Stop: 01/26/19 20:59 Last Admin: 01/04/19 07:26 Dose: 600 mg Documented by: Heparin Sodium (Porcine) (Heparin Sodium (Porcine)) 5,000 units SQ Q12H [facility] Stop: 01/26/19 20:59 Last Admin: 01/04/19 07:24 Dose: 5,000 units Documented by: Heparin Sodium (Porcine) (Heparin Iv Bolus) 3,000 units IV ONE@1035 [facility] Stop: 01/04/19 18:00 Ceftaroline Fosamil 200 mg/ (Sodium Chloride) 256.6667 mls @ 250 mls/hr IV Q12H [facility]; Protocol Stop: 01/07/19 05:59 Last Infusion: 01/04/19 07:08 Dose: Infused Documented by: Sodium Chloride (Nss 1000ml) 1,000 mls @ 0 mls/hr IV .Q0M PRN PRN Reason: For Hemodialysis Use ONLY Stop: 01/04/19 16:34 Ioversol (Optiray 300) 35 ml IV UD PRN PRN Reason: Interaction Checking Stop: 01/07/19 13:40 Last Admin: 01/03/19 13:43 Dose: 35 ml Documented by: Ondansetron HCl (Zofran) 4 mg IV Q6H PRN PRN Reason: Nausea Stop: 01/26/19 16:49 Last Admin: 01/03/19 20:08 Dose: 4 mg Documented by: Oxycodone/Acetaminophen (Percocet 5mg/325mg) 1 tab PO Q4H PRN PRN Reason: Moderate Pain Stop: 01/17/19 13:51 Last Admin: 01/04/19 09:51 Dose: 1 tab Documented by: Pantoprazole Sodium (Protonix) 40 mg PO QAM [facility] Stop: 01/27/19 08:59 Last Admin: 01/04/19 07:26 Dose: 40 mg Documented by: Pyridoxine HCl (Vitamin B-6) 50 mg PO DAILY [facility]ANDE[facility] Stop: 01/27/19 08:59 Last Admin: 01/04/19 07:27 Dose: 50 mg Documented by: Simvastatin (Zocor) 40 mg PO QPM [facility] Stop: 01/26/19 20:59 Last Admin: 01/03/19 22:17 Dose: 40 mg Documented by: Sodium Bicarbonate (Sodium Bicarbonate) 1,300 mg PO BID [facility] Stop: 01/27/19 11:59 Last Admin: 01/04/19 07:27 Dose: 1,300 mg Documented by: Vitamin B Complex (Vitamin B Complex) 1 tab PO DAILY RANDE[facility] Stop: 01/29/19 08:59 Last Admin: 01/04/19 07:24 Dose: 1 tab Documented by: PG Care Time/CCT Total # of Minutes Spent Total Time Spent with Patient: Total time spent is greater than 50% in coordination of care (as documented) at patient's floor/unit and/or counseling patient:
[2019-01-04] MEDS: SIMVASTATIN 40 MG TAB PO SCH (21:00)
[2019-01-05] MEDS: CEFTAROLINE FOSAMIL ACETATE 200 MG in SODIUM CHLORIDE 0.9% 250 ML IV SCH (06:15)
[2019-01-05 07:47] LABS: BUN Creatinine Ratio 6.6 (10-20); Calcium 7.8 mg/dl (8.5-10.1); Creatinine Clr Calc Pharmacy 16.9 ml/min; Est GFR (Non-African American) 8.7; Magnesium 2.1 mg/dl (1.8-2.4); Potassium 4.2 mmol/L (3.5-5.1)
[2019-01-05] MEDS: SODIUM BICARBONATE 650 MG TAB PO SCH (07:47)
[2019-01-05] MEDS: FUROSEMIDE 80 MG TAB PO SCH (07:48)
[2019-01-05] MEDS: PANTOprazole 40 MG TAB PO SCH (07:48)
[2019-01-05] MEDS: FEBUXOSTAT 40 MG TABLET PO SCH (07:48)
[2019-01-05] MEDS: HEPARIN SOD 5,000 UNIT/0.5 ML VIAL SQ SCH (07:49)
[2019-01-05] MEDS: VITAMIN B COMPLEX TAB PO SCH (07:49)
[2019-01-05] MEDS: PYRIDOXINE HCL 50 MG TAB PO SCH (07:49)
[2019-01-05] MEDS: CYANOCOBALAMIN 500 MCG TABLET (VITAMIN B-12) PO SCH (07:49)
[2019-01-05] MEDS: CALCIUM ACETATE 667 MG CAP PO SCH (07:50)
[2019-01-05] MEDS: GABAPENTIN 600 MG TAB PO SCH (07:50)
[2019-01-05] MEDS: DULOXETINE HCL 20 MG CAP PO SCH (07:50)
--- NOTE | 2019-01-05 09:01 | Discharge Summary ---
Date of Service January 05, 2019 Admission HPI Per Admitting Provider 58-year-old male with end-stage renal disease not currently on dialysis. He has chronic venous insufficiency and stasis dermatitis of both lower extremities. The left leg has become more swollen erythemic and tender over the past several days. He was in the ED on December 25 and received Keflex therapy and discharged to home. Venous Doppler at that time was negative. He has not improved and in fact his condition has worsened. He presents again today for further evaluation and will need to be admitted for IV antibiotic therapy. He has end-stage renal disease but has thus far refused dialysis. BUN is 140 and creatinine 9.9. Potassium 5.1. Nephrology consultation will be requested. He has been started on Teflaro therapy with dosage adjustment based on renal function. Infectious disease consultation has been requested. Principal Diagnosis Left leg cellulitis Discharge Exam Constitutional WD/WN, vitals as above + obese Eyes PERRL, conjunctivae normal, anicteric sclerae ENMT external ear and nose normal, oropharynx normal Neck trachea midline, no thyromegaly Respiratory normal respiratory effort, lungs clear to auscultation Cardiovascular RRR, no murmur, no edema Gastrointestinal (Abdomen) normal bowel sounds, soft, nontender, no hepatosplenomegaly Musculoskeletal no cyanosis or clubbing, extremities motor strength 5/5 Skin + erythema (left lower leg, minimal warmth, no tenderness) Neurologic patellar DTR's 2+ bilat, sensation intact and PERRL, EOMI, accommodation nl, no face palsy, no dysarthria Psychiatric A+Ox3, euthymic affect Lymphatic no cervical or axillary lymphadenopathy Discharge Data Allergies Allergy/AdvReac Type Severity Reaction Status Date / Time allopurinol Allergy Unknown Rash Verified 12/27/18 11:56 Penicillins Allergy Unknown Unknown Verified 12/27/18 11:56 Consultations 12/27/18 13:59 ED Decision to Admit Stat 12/27/18 16:50 Consult Nephrology Routine 12/27/18 17:51 Consult Infectious Diseases Routine 12/28/18 11:08 Consult Case Management - Discharge Planning Routine 12/29/18 16:54 Consult Vascular Surgery Routine Procedures Performed Operation Date: 01/03/19 09:50 Actual Procedures p Left Upper Extremity Fistulogram, Percutaneous Transluminal Angioplasty Peripheral Venous, Embolization of Two Side Branches; Moderate Concious Sedation (Left) - Manish Perkins MD s Perm Catheter Placement, Right Internal Jugular Approach, Ultrasound Localization of Right Internal Jugular Vein, Fluoroscopy for Positioning; Moderate Concious Sedation 1131 to 1352(Right) - Manish Perkins MD Ordered Studies 12/27/18 11:49 CT abd pelvis wo con Stat 12/29/18 10:28 US hemodialysis access Routine 01/03/19 09:48 EV angio arteriovenous shunt Routine 01/03/19 11:32 EV cvc insert non tunnel Routine Hospital Course (1) Cellulitis of left leg: Failed outpatient treatment with Keflex. treated with Teflaro from time of admission showing excellent response no fever, redness decreases every day, minimal warmth and no tenderness able to ambulate on the left leg which is major improvement appreciate consult from Dr. Ambrocio, plan for Doxycycline on discharge will complete 14 more days to complete 21 days total treatment leg looks really good on 01/05, best it has looked by far (2) End stage renal disease: patient requiring hemodialysis unfortunately his fistula could not be accessed on 12/31 due to stenosis revision of left fistula done 01/03, needs to mature for another 2 weeks right Permacath placed, received HD on 01/03 and 01/04, tolerated well Cr down to 6.5, electrolytes stable Dr. Pablo following has secondary hyperparathyroidism with high phosphorus change to Renvela on discharge, 800mg 2 tabs TID meals plan to start outpatient HD on Saturday 01/06 at 1015 (3) Hyperlipidemia: Treated with statin therapy (4) DVT prophylaxis: Low-dose Lovenox daily Total Time Total Time Spent Total Time Spent (In Minutes): 32 minutes Total Time Includes: Examination of the Patient, Discharge Planning, Medication Reconciliation and Communication With Other Providers (Dr. Pablo) Discharge Plan Discharge Items Patient Disposition: Home - Self-Care Reason For Visit: CELLULITIS LEFT LOWER EXTREMITY,END-STAGE RENAL DI Discharge Diagnosis: ESRD on HD placement of right Permacath dialysis catheter left leg cellulitis Condition: Good Discharge Goals: Improve disease control and Improve function Activity: Resume your previous activity Lifting: Gradually increase as tolerated Bathing: No limitations Exercise/Sports: Gradually increase as tolerated Driving/Machine Use: Resume 1 day after discharge Non-emergency contact: Primary Care Provider and [employer] Call non-emergency contact if: you have any medication questions, your symptoms worsen, your pain is not controlled and you have a fever Follow-up/Referrals: Lan Pablo MD [Primary Care Provider] - Diet: Dialysis Renal Addtl Provider Instructions: Medications: - DOXYCYCLINE: take twice a day for 14 more days to complete treatment of left leg cellulitis - CYCLOBENZAPRINE: continue to take as needed for muscle spasms in neck - SEVELAMER: take two tablets three times a day with meals Cellulitis of left leg improved dramatically with Teflaro IV over the past week evaluated by Dr. Ambrocio with ID she recommends converting to Doxycycline on discharge, complete two more weeks ESRD, revision of left UE fistual, placement of right tunneled HD catheter by Dr. Gregorio Pablo plans for HD tomorrow as outpatient will then follow a MWF scheduled please follow up closely with Dr. Pablo Prescriptions: New cyclobenzaprine 10 mg Tablet 10 mg PO TID PRN (Reason: muscle spasm) 10 Days Qty: 30 RF: 0 doxycycline hyclate 100 mg tablet 100 mg PO BID 14 Days Qty: 28 RF: 0 sevelamer carbonate [Renvela] 800 mg tablet 1,600 mg PO TIDM 30 Days Qty: 180 RF: 1 Continued furosemide 80 mg tablet 80 mg PO .COMPLEX RF: 0 pyridoxine (vitamin B6) 50 mg tablet 50 mg PO DAILY RF: 0 omeprazole 40 mg Capsule,Delayed Release(Dr/Ec) 40 mg PO QAM RF: 0 simvastatin 40 mg Tablet 40 mg PO QPM RF: 0 duloxetine 20 mg Capsule,Delayed Release(Dr/Ec) 20 mg PO QAM RF: 0 febuxostat [Uloric] 80 mg Tablet 80 mg PO QAM RF: 0 cyanocobalamin (vitamin B-12) 1,000 mcg Capsule 1,000 mcg PO QAM RF: 0 Folbic 2.5-25-2 mg tablet 1 tab PO QAM RF: 0 gabapentin 300 mg capsule 600 mg PO BID Qty: 0 RF: 0 Discontinued prednisone 20 mg tablet 20 mg PO DAILY RF: 0 prednisone 50 mg tablet 50 mg PO DAILY RF: 0 calcium acetate 667 mg capsule 667 mg PO BID RF: 0 cephalexin [Keflex] 250 mg capsule 250 mg PO DAILY Qty: 10 RF: 0 Stand-Alone Forms: [facility] Discharge Orders: Discharge Order (Routine); Ordered 01/05/19 Ordered By: Mega Flores Admission Data Admit Date/Time: 12/27/18 14:43 Attending Provider: Mega Flores Admit Provider: Misha Goddard Primary Care Provider: Lan Pablo Other Providers: Misha Goddard ; Lan Pablo ; Jackson Lance ; Manish Perkins Service: Telemetry Medical Other Interventions: Discharge Summary Assessment (RN) Last Done: 01/05/19 07:42
[2019-01-05 09:23] LABS: Phosphorus 4.7 mg/dl (2.5-4.9)
--- NOTE | 2019-01-05 10:07 | Progress Note ---
DATE: 01/05/2019 RENAL PROGRESS NOTE SUBJECTIVE: Mr. Prado says that he is feeling better today. He tolerated his dialysis treatment yesterday, although he did have some significant muscular cramps during his treatment and had some nocturnal leg cramps last evening. He has no current shortness of breath. He says that his appetite is okay. He does not have any significant nausea. He is anxious for his discharge. OBJECTIVE: GENERAL: On physical exam when seen by me, Mr. Prado appeared to be generally better than he was yesterday. VITAL SIGNS: His blood pressure is 165/92, his pulse 73 and regular, respiratory rate 18, his pulse ox 96% on room air. He is afebrile (36.9). SKIN: Still shows somewhat of a sallow complexion. He has changes of venous stasis dermatitis on his distal lower extremities, left side worse than right. He also has a large scar in the posterior aspect of his left leg from the removal of a melanoma years ago. He has a left forearm AV fistula with a few dialysis needle track harrell over the fistula. He has a PermCath in the right IJ exiting beneath the distal right clavicle. He has some minimal tenderness along the subcutaneous tunnel and at the insertion site. He has no palpable lymphadenopathy. HEAD: Normal. EYES: Grossly normal. The ocular fundi were not examined. EARS, NOSE, MOUTH AND THROAT: Unremarkable. Oral mucous membranes are moist. NECK: Supple. He has no obvious jugular venous distention, but the exam is difficult because of his body habitus. He has no carotid bruits and there is no thyromegaly. CHEST: Clear to auscultation. I hear no wheezes, rales or rhonchi. CARDIAC: Shows a regular rhythm. S1 and S2 are normal. He has a soft systolic murmur at the base radiating toward the neck. ABDOMEN: Obese but nontender. He has no organomegaly or mass. EXTREMITIES: Show the changes of venous stasis dermatitis. His left arm is slightly puffy. He has 1+ to 2+ lower extremity edema. NEUROLOGIC: Shows no lateralizing changes. He does not have asterixis today. PERTINENT LABORATORY WORK: From this morning shows a sodium of 140 mmol/L, potassium 4.6 mmol/L, chloride is 105 mmol/L, and CO2 content 28 mmol/L. His BUN is down to 43, creatinine 6.50. His random blood sugar was 94. His serum calcium is 7.8, his phosphate 4.7, his magnesium 2.1. ASSESSMENT: Significant improvement in his symptomatology and his numbers with hemodialysis. RECOMMENDATIONS: Discharge on his current medications. However, we will be changing his PhosLo (calcium acetate) to Renvela 800 mg 2 with each meal as an outpatient. He will have his first outpatient dialysis treatment at [facility] in [place] tomorrow morning at about 10:15. I have arranged for him to have late afternoon-early evening dialysis treatments starting next week to accommodate his work schedule. He will be dialyzed 3 times a week for a minimum of 4 hours to start with. He has been evaluated for transplant and he has at least 2 donors, one of whom appears to be ready to go. Of course, he will have to be reevaluated for transplant given the evidence of recent activity of his sarcoidosis. However, at least for now, that appears to be back in remission.
[2019-01-05] MEDS: HEPARIN SOD (PORCINE) 1000 UNIT/ML 10 ML VIAL IV SCH (10:26)
== END 2019-01-05 10:53 | disposition home or self-care (01) | DRG 673 ==
LOC: ED 11:22 → SUATTDRO 14:43 → 2N 14:43

== ENCOUNTER 2020-01-28 14:57 | Inpatient (IN) ==
[2020-01-28] MEDS ORDERED: CEFEPIME 2,000 MG/20 ML VIAL IV STA (15:37)
[2020-01-28] MEDS ORDERED: ONDANSETRON INJ 2 MG/ML 2 ML VIAL IV STA (15:40)
[2020-01-28] MEDS ORDERED: MoRPHine SULFATE 2 MG/ML CARP IV STA (15:40)
[2020-01-28] MEDS ORDERED: ACETAMINOPHEN 1000 MG/100 ML IV IV STA (15:40)
[2020-01-28] MEDS ORDERED: SODIUM CHLORIDE 0.9% 1000ML 1,000 ML IV SCH ×2 (15:45→20:04)
--- NOTE | 2020-01-28 15:45 | Emergency Department Note ---
Impression & Plan Sepsis, Acute UTI, Hypomagnesemia, Renal transplant recipient, Immunocompromised ED Provider Note NAME: NAN MONTE AGE: 59 SEX: M : 1960 ARRIVES VIA: Walk-In INFORMANT: [Patient] [] ED PROVIDER(S): [Mark Sutherland MD] CHIEF COMPLAINT: Fever HISTORY OF PRESENT ILLNESS: The patient is a 59-year-old male who presents with 6 to 8 hours of symptoms. The patient states that he felt fine this morning. He went to work by himself. At work, he began to feel cold and began to shiver. When he got home, his temperature was 103.1. Since that timeframe, he has progressed to body aching and joint aching. He is shivering. He is chilled. He feels flulike. There has been no cough or cold or congestion. No shortness of breath. The patient has had no known coronavirus exposures. He is immunocompromised in that he is a renal transplant patient. Of note, he has noticed some recent urinary frequency/urgency but no burning. Of note, there have been no sick contacts. REVIEW OF SYSTEMS: See HPI for pertinent positives and negatives. A total of ten systems were reviewed and were otherwise negative. PMHx/PSHx: See Below SOCIAL HISTORY: See Below. PHYSICAL EXAM: GENERAL: Patient is in mild distress, shivering on the stretcher. HEENT: No acute trauma, normocephalic atraumatic, mucous membranes moist, no nasal congestion, no scleral icterus. NECK: No stridor, no adenopathy, no meningismus, trachea is midline. LUNGS: Clear to auscultation bilaterally, no wheeze, no rhonchi, breath sounds equal. HEART: Distant heart tones but the patient appears tachycardic with a regular rhythm. I really cannot assess for murmurs. ABDOMEN: Soft, nontender, bowel sounds positive, no hernias, no peritonitis. No tenderness in the area of the right pelvis where his renal transplant has been placed. EXTREMITIES: No cyanosis. Mild bilateral pedal edema. There is some erythema, warmth and open skin lesions to both lower extremities. The left is slightly worse than the right. NEUROLOGIC: Oriented x 3, no acute motor or sensory deficits, no focal weakness. Shivering. SKIN: No rash, no jaundice, no diaphoresis. DIFFERENTIAL DIAGNOSIS: Sepsis, UTI, pneumonia, metabolic, electrolyte abnormalities, cardiac sources, intracerebral event, toxicologic, neurologic, as well as other pathologies. EMERGENCY DEPARTMENT COURSE/PROCEDURES: ECG: Indication was weakness and tachycardia. The ECG shows a normal sinus rhythm with a rate of 96. The QTc is 436. There is some poor R wave progression. No ST elevation, no PVCs. Continuous Cardiac Monitoring: An order was placed for continuous cardiac monitoring. The monitor shows a rate of 93 with normal sinus rhythm. Critical Care Note: I have personally spent greater than 55 minutes of critical care time in the direct management of this patient. This includes bedside care, interpretation of diagnostic studies, and testing, discussion with consultants, patient, and family members, and other required patient management activities. This 55 minutes is in excess of all separately billable procedures. MEDICAL DECISION MAKING: There is a slight leukocytosis, this could be consistent with infection. There is a mild anemia with a hemoglobin of 12.7. There is a normal platelet count. INR is elevated, consistent with his Coumadin use. Creatinine is elevated at 1.69. This creatinine elevation is slightly above his baseline creatinine values. Magnesium was low at 1.6. No liver enzyme elevation. Procalcitonin and lactic acid levels were normal making severe sepsis less likely. Urinalysis is consistent with infection. Coronavirus testing is negative. Lyme disease testing is negative. Chest film does not show pneumonia or CHF. On exam, the patient did have some redness to both lower extremities although, as per his , this is chronic. The patient was aggressively managed given his immunocompromise. He appeared potentially septic The patient received IV saline, 1 L. He was given IV morphine for pain, IV Zofran for nausea. He received IV cefepime and IV Tylenol. He was given a dose of IV magnesium. The patient's heart rate has improved. He is more comfortable. I did speak with him about his findings. I spoke with case management. I did call and speak with his transplant team at [facility] in [place]. The patient is able to stay at our hospital for IV antibiotic therapy. The on-call hospitalist has been consulted. The patient is going to be brought into our facility for care. Past Med/Surg History Medical History Chronic kidney disease Deep vein blood clot of left lower extremity S/P LEFT LEG SURGERY (EXCISION OF MELANOMA LEFT LEG) 10 YEARS AGO. DVT (deep venous thrombosis) right 04/2019 End stage renal disease Family history of blood clots Gout Hyperlipidemia Hyperlipidemia Hypertension Sarcoidosis Sleep apnea CPAP Surgical History (Updated 01/28/20 @ 18:53 by Mark Sutherland MD) History of melanoma excision History of tonsillectomy History of tooth extraction Family History Other Cancer Lung disease Social History Smoking Status: Never smoker Second Hand Exposure: No; Hx Alcohol Use: No Hx Substance Use: No Preferred Language: Ethiopian Communication Ability: Effective Assistant Clinical Nurse Manager Required: No Beliefs That Will Affect Care: None marital status: Current Living Situation: Spouse and Family Current Living Situation Comment: sister and son as well Feels Safe at Home: Yes Safety Concerns: Feels Safe At This Time Allergies Allergies Allergy/AdvReac Type Severity Reaction Status Date / Time allopurinol Allergy Unknown Rash Verified 01/28/20 18:08 Penicillins Allergy Unknown Unknown Verified 01/28/20 18:08 Home Meds Home Medications Medication Instructions Recorded Confirmed aspirin 81 mg tablet,delayed 81 mg PO QAM 04/24/19 01/28/20 release cholecalciferol (vitamin D3) 25 1,000 units PO DAILY 04/24/19 01/28/20 mcg (1,000 unit) capsule docusate sodium 100 mg capsule 100 mg PO BID PRN 04/24/19 01/28/20 multivitamin 1 tab PO QAM 04/24/19 01/28/20 mycophenolate mofetil 250 mg 1,000 mg PO BID 04/24/19 01/28/20 capsule tamsulosin 0.4 mg capsule 0.4 mg PO QPM 04/24/19 01/28/20 prednisone 5 mg tablet 5 mg PO DAILY tab 05/29/19 01/28/20 sodium di- and 2 tab PO TID tab 05/29/19 01/28/20 monophosphate-potassium phos monobasic 250 mg tablet amlodipine 5 mg tablet 5 mg PO BID tab 01/11/20 01/28/20 cyclosporine 100 mg capsule 200 mg PO BID cap 01/11/20 01/28/20 magnesium oxide 800 mg PO TID cap 01/11/20 01/28/20 cyclosporine 50 mg PO BID 01/28/20 01/28/20 gabapentin [Neurontin] 600 mg PO .BID UD 01/28/20 01/28/20 gabapentin [Neurontin] 900 mg PO HS 01/28/20 01/28/20 losartan [Cozaar] 50 mg PO DAILY 01/28/20 01/28/20 warfarin [Coumadin] 10 mg PO QPM 01/28/20 01/28/20 Previous Rx's Medication Instructions Recorded omeprazole 40 mg capsule,delayed 40 mg PO QAM #90 cap 03/29/19 release duloxetine 20 mg capsule,delayed 20 mg PO QAM #90 cap 05/29/19 release simvastatin 40 mg tablet 40 mg PO QPM #90 tab 05/29/19 miscellaneous medical supply #1 [id number] 10/04/19 Results & Data (ED) Vital Signs Vital Signs - 24 hr 01/28/20 15:00 01/28/20 16:48 01/28/20 16:50 Temperature 37.6 C H Temperature Source Oral Pulse Rate 106 H Pulse Rate [Left Finger] Respiratory Rate 24 20 Respiratory Effort / Characteristics Non-Labored Respiratory Depth Normal Blood Pressure 150/79 H Blood Pressure [Right Arm] Blood Pressure Mean 102 Blood Pressure Mean [Right Arm] Pulse Oximetry 99 96 96 Oxygen Delivery Method Room Air Room Air Room Air Sepsis Recent Fever Within 48 Hours Yes Sepsis New/Unexplained Change in Mental Status No Sepsis Action Taken by Nursing No Action Required 01/28/20 17:04 01/28/20 17:20 01/28/20 17:21 Temperature Temperature Source Pulse Rate Pulse Rate [Left Finger] 101 H 93 H Respiratory Rate 20 24 Respiratory Effort / Characteristics Respiratory Depth Blood Pressure Blood Pressure [Right Arm] 128/72 128/72 Blood Pressure Mean Blood Pressure Mean [Right Arm] 90 90 Pulse Oximetry 95 94 95 Oxygen Delivery Method Room Air Room Air Room Air Sepsis Recent Fever Within 48 Hours Sepsis New/Unexplained Change in Mental Status Sepsis Action Taken by Nursing 01/28/20 18:18 01/28/20 19:17 Temperature 37.7 C H Temperature Source Oral Pulse Rate Pulse Rate [Left Finger] 93 H 97 H Respiratory Rate 20 24 Respiratory Effort / Characteristics Respiratory Depth Blood Pressure Blood Pressure [Right Arm] 135/85 139/84 Blood Pressure Mean Blood Pressure Mean [Right Arm] 101 102 Pulse Oximetry 94 94 Oxygen Delivery Method Room Air Sepsis Recent Fever Within 48 Hours Sepsis New/Unexplained Change in Mental Status Sepsis Action Taken by [facility] Medications Current Medication List: was personally reviewed by me Laboratory Data Attestation: I reviewed the patient's lab results. Result diagrams: 01/28/20 16:25 01/28/20 16:25 Lab Results 01/28/20 01/28/20 01/28/20 Range/Units 16:25 16:25 16:25 WBC 11.11 H (4.8-10.8) K/uL RBC 4.20 L (4.7-6.1) M/uL Hgb 12.7 L (14.0-18.0) g/dL Hct 38.4 L (42-52) % MCV 91.4 (80-100) fL MCH 30.2 (25-34) pg MCHC 33.1 (32-36) g/dL RDW Std Deviation 46.6 H (36.4-46.3) fL RDW Coeff of Theresa 14.0 (11.5-14.5) % Plt Count 180 (130-400) K/uL MPV 11.1 H (7.4-10.4) fL Immature Gran % (Auto) 0.1 % Neut % (Auto) 89.2 % Lymph % (Auto) 5.6 % [place] % (Auto) 4.1 % Eos % (Auto) 0.7 % Baso % (Auto) 0.3 % Neut # (Auto) 9.92 H (1.4-6.5) K/uL Lymph # (Auto) 0.62 L (1.2-3.4) K/uL [place] # (Auto) 0.45 (0.11-0.59) K/uL Eos # (Auto) 0.08 (0-0.5) K/uL Baso # (Auto) 0.03 (0-0.2) K/uL Immature Gran # (Auto) 0.01 (0.00-0.02) K/uL PT 20.3 H (9.0-12.0) Seconds INR 2.0 H (0.9-1.1) APTT 35.9 H (21.0-31.0) Seconds PTT Ratio 1.3 Sodium 139 (136-145) mmol/L Potassium 3.7 (3.5-5.1) mmol/L Chloride 103 (98-107) mmol/L Carbon Dioxide 29 (21-32) mmol/L Anion Gap 7.0 (3-11) BUN 24 H (7-18) mg/dl Creatinine 1.69 H (0.6-1.4) mg/dl Est Cr Clr Drug Dosing 65.6 ml/min Est GFR ( Amer) 50.8 Est GFR (Non-Af Amer) 43.8 BUN/Creatinine Ratio 14.3 (10-20) Glucose 92 (70-99) mg/dl Lactate (0.4-2.0) mmol/L Calcium 9.5 (8.5-10.1) mg/dl Magnesium 1.6 L (1.8-2.4) mg/dl Total Bilirubin 0.9 (0.2-1) mg/dl AST 23 (15-37) U/L ALT 27 (12-78) U/L Alkaline Phosphatase 64 (45-117) U/L Total Protein 7.0 (6.4-8.2) gm/dl Albumin 4.4 (3.4-5.0) gm/dl Globulin 2.6 (2.5-4.0) gm/dl Albumin/Globulin Ratio 1.7 (0.9-2) Procalcitonin (0-0.5) ng/ml Urine Color Urine Appearance (Clear) Urine pH (4.5-7.5) Ur Specific [place] (1.000-1.030) Urine Protein (Negative) Urine Glucose (UA) (Negative) Urine Ketones (Negative) Urine Blood (Negative) Urine Nitrite (Negative) Urine Bilirubin (Negative) Urine Urobilinogen (Negative) Ur Leukocyte Esterase (Negative) Urine WBC (Auto) (0-5) /hpf Urine RBC (Auto) (0-4) /hpf U Hyaline Cast (Auto) (0-5) /lpf U Epithel Cells (Auto) (0-5) /lpf Urine Bacteria (Auto) (Negative) Lyme Disease IgG Ab (Negative) Lyme Disease IgM Ab (Negative) COVID-19 Eval Order COVID-19 PCR (Negative) 01/28/20 01/28/20 01/28/20 Range/Units 16:25 16:25 16:25 WBC (4.8-10.8) K/uL RBC (4.7-6.1) M/uL Hgb (14.0-18.0) g/dL Hct (42-52) % MCV (80-100) fL MCH (25-34) pg MCHC (32-36) g/dL RDW Std Deviation (36.4-46.3) fL RDW Coeff of Theresa (11.5-14.5) % Plt Count (130-400) K/uL MPV (7.4-10.4) fL Immature Gran % (Auto) % Neut % (Auto) % Lymph % (Auto) % [place] % (Auto) % Eos % (Auto) % Baso % (Auto) % Neut # (Auto) (1.4-6.5) K/uL Lymph # (Auto) (1.2-3.4) K/uL [place] # (Auto) (0.11-0.59) K/uL Eos # (Auto) (0-0.5) K/uL Baso # (Auto) (0-0.2) K/uL Immature Gran # (Auto) (0.00-0.02) K/uL PT (9.0-12.0) Seconds INR (0.9-1.1) APTT (21.0-31.0) Seconds PTT Ratio Sodium (136-145) mmol/L Potassium (3.5-5.1) mmol/L Chloride (98-107) mmol/L Carbon Dioxide (21-32) mmol/L Anion Gap (3-11) BUN (7-18) mg/dl Creatinine (0.6-1.4) mg/dl Est Cr Clr Drug Dosing ml/min Est GFR ( Amer) Est GFR (Non-Af Amer) BUN/Creatinine Ratio (10-20) Glucose (70-99) mg/dl Lactate 1.1 (0.4-2.0) mmol/L Calcium (8.5-10.1) mg/dl Magnesium (1.8-2.4) mg/dl Total Bilirubin (0.2-1) mg/dl AST (15-37) U/L ALT (12-78) U/L Alkaline Phosphatase (45-117) U/L Total Protein (6.4-8.2) gm/dl Albumin (3.4-5.0) gm/dl Globulin (2.5-4.0) gm/dl Albumin/Globulin Ratio (0.9-2) Procalcitonin 0.05 (0-0.5) ng/ml Urine Color Dark Yellow Urine Appearance Clear (Clear) Urine pH 6.5 (4.5-7.5) Ur Specific [place] 1.016 (1.000-1.030) Urine Protein 3+ H (Negative) Urine Glucose (UA) Negative (Negative) Urine Ketones Negative (Negative) Urine Blood 2+ H (Negative) Urine Nitrite Negative (Negative) Urine Bilirubin Negative (Negative) Urine Urobilinogen Negative (Negative) Ur Leukocyte Esterase 2+ H (Negative) Urine WBC (Auto) >30 H (0-5) /hpf Urine RBC (Auto) 10-30 H (0-4) /hpf U Hyaline Cast (Auto) 1-5 (0-5) /lpf U Epithel Cells (Auto) 10-20 H (0-5) /lpf Urine Bacteria (Auto) 4+ H (Negative) Lyme Disease IgG Ab Negative (Negative) Lyme Disease IgM Ab Negative (Negative) COVID-19 Eval Order COVID-19 PCR (Negative) 01/28/20 01/28/20 Range/Units 16:35 16:35 WBC (4.8-10.8) K/uL RBC (4.7-6.1) M/uL Hgb (14.0-18.0) g/dL Hct (42-52) % MCV (80-100) fL MCH (25-34) pg MCHC (32-36) g/dL RDW Std Deviation (36.4-46.3) fL RDW Coeff of Theresa (11.5-14.5) % Plt Count (130-400) K/uL MPV (7.4-10.4) fL Immature Gran % (Auto) % Neut % (Auto) % Lymph % (Auto) % [place] % (Auto) % Eos % (Auto) % Baso % (Auto) % Neut # (Auto) (1.4-6.5) K/uL Lymph # (Auto) (1.2-3.4) K/uL [place] # (Auto) (0.11-0.59) K/uL Eos # (Auto) (0-0.5) K/uL Baso # (Auto) (0-0.2) K/uL Immature Gran # (Auto) (0.00-0.02) K/uL PT (9.0-12.0) Seconds INR (0.9-1.1) APTT (21.0-31.0) Seconds PTT Ratio Sodium (136-145) mmol/L Potassium (3.5-5.1) mmol/L Chloride (98-107) mmol/L Carbon Dioxide (21-32) mmol/L Anion Gap (3-11) BUN (7-18) mg/dl Creatinine (0.6-1.4) mg/dl Est Cr Clr Drug Dosing ml/min Est GFR ( Amer) Est GFR (Non-Af Amer) BUN/Creatinine Ratio (10-20) Glucose (70-99) mg/dl Lactate (0.4-2.0) mmol/L Calcium (8.5-10.1) mg/dl Magnesium (1.8-2.4) mg/dl Total Bilirubin (0.2-1) mg/dl AST (15-37) U/L ALT (12-78) U/L Alkaline Phosphatase (45-117) U/L Total Protein (6.4-8.2) gm/dl Albumin (3.4-5.0) gm/dl Globulin (2.5-4.0) gm/dl Albumin/Globulin Ratio (0.9-2) Procalcitonin (0-0.5) ng/ml Urine Color Urine Appearance (Clear) Urine pH (4.5-7.5) Ur Specific [place] (1.000-1.030) Urine Protein (Negative) Urine Glucose (UA) (Negative) Urine Ketones (Negative) Urine Blood (Negative) Urine Nitrite (Negative) Urine Bilirubin (Negative) Urine Urobilinogen (Negative) Ur Leukocyte Esterase (Negative) Urine WBC (Auto) (0-5) /hpf Urine RBC (Auto) (0-4) /hpf U Hyaline Cast (Auto) (0-5) /lpf U Epithel Cells (Auto) (0-5) /lpf Urine Bacteria (Auto) (Negative) Lyme Disease IgG Ab (Negative) Lyme Disease IgM Ab (Negative) COVID-19 Eval Order Covid19 Done at [facility] COVID-19 PCR NEGATIVE (Negative) Administered Medications Amlodipine Besylate (Amlodipine Besylate 5 Mg Tab) 5 mg PO BID RANDELL Stop: 02/27/20 20:59 Last Admin: 01/28/20 21:18 Dose: 5 mg Documented by: [id number] Cyclosporine (Cyclosporine (Sandimmune) 25 Mg Cap) 200 mg PO BID RANDELL Stop: 02/27/20 20:59 Last Admin: 01/28/20 21:21 Dose: 200 mg Documented by: [id number] Cyclosporine (Cyclosporine (Sandimmune) 25 Mg Cap) 50 mg PO BID RANDELL Stop: 02/27/20 20:59 Last Admin: 01/28/20 21:21 Dose: 50 mg Documented by: [id number] Gabapentin (Gabapentin 300 Mg Cap) 900 mg PO HS RANDELL Stop: 02/27/20 20:59 Last Admin: 01/28/20 21:17 Dose: 900 mg Documented by: [id number] Sodium Chloride (Nss 1000ml) 1,000 mls @ 125 mls/hr IV .Q8H RANDELL Stop: 01/29/20 04:03 Last Admin: 01/28/20 20:17 Dose: 125 mls/hr Documented by: [id number] Magnesium Oxide (Magnesium Oxide 400 Mg Tab) 800 mg PO TID RANDELL Stop: 02/27/20 20:59 Last Admin: 01/28/20 21:16 Dose: 800 mg Documented by: [id number] Mycophenolate Mofetil (Mycophenolate Mofetil 250 Mg Cap) 500 mg PO BID RANDELL Stop: 02/27/20 20:59 Last Admin: 01/28/20 21:16 Dose: 500 mg Documented by: [id number] Potassium Phosphate (Pot Phosphate Monobasic W/ Sod Tab) 2 tab PO TID RANDELL Stop: 02/27/20 20:59 Last Admin: 01/28/20 21:20 Dose: 2 tab Documented by: [id number] Simvastatin (Simvastatin 40 Mg Tab) 40 mg PO QPM RANDELL Stop: 02/27/20 20:59 Last Admin: 01/28/20 21:19 Dose: 40 mg Documented by: [id number] Tamsulosin HCl (Tamsulosin Hcl 0.4 Mg Cap) 0.4 mg PO QPM RANDELL Stop: 02/27/20 20:59 Last Admin: 01/28/20 21:16 Dose: 0.4 mg Documented by: [id number] Discontinued Medications Acetaminophen (Acetaminophen 1000 Mg/100 Ml Iv) 1,000 mg IV NOW STA Stop: 01/28/20 15:41 Last Admin: 01/28/20 16:23 Dose: 1,000 mg Documented by: [id number] Acetaminophen (Acetaminophen 325 Mg Tab) Confirm Administered Dose 650 mg .ROUTE .STK-MED ONE Stop: 01/28/20 20:07 Last Admin: 01/28/20 20:08 Dose: 650 mg Documented by: [id number] Sodium Chloride (Nss 1000ml) 1,000 mls @ 999 mls/hr IV .Q1H1M RANDELL Stop: 01/28/20 16:45 Last Infusion: 01/28/20 17:21 Dose: 0 mls/hr Documented by: [id number] Admin: 01/28/20 16:23 Dose: 999 mls/hr Documented by: [id number] Cefepime HCl (Maxipime) 2,000 mg in 20 mls @ 5 mls/min IV NOW STA; Protocol Stop: 01/28/20 15:40 Last Admin: 01/28/20 16:23 Dose: 5 mls/min Documented by: [id number] Magnesium Sulfate/Dextrose (Magnesium Sulfate / D5w) 1 gm in 100 mls @ 100 mls/hr IV Q1H RANDELL Stop: 01/28/20 19:26 Last Infusion: 01/28/20 20:17 Dose: 0 mls/hr Documented by: [id number] Admin: 01/28/20 18:17 Dose: 100 mls/hr Documented by: [id number] Infusion: 01/28/20 18:17 Dose: 100 mls/hr Documented by: [id number] Admin: 01/28/20 18:16 Dose: 100 mls/hr Documented by: [id number] Morphine Sulfate (Morphine Sulfate 2 Mg/Ml Carp) 2 mg IV NOW STA Stop: 01/28/20 15:41 Last Admin: 01/28/20 16:23 Dose: 2 mg Documented by: [id number] Ondansetron HCl (Ondansetron Inj 2 Mg/Ml 2 Ml Vial) 4 mg IV NOW STA Stop: 01/28/20 15:41 Last Admin: 01/28/20 16:23 Dose: 4 mg Documented by: [id number] Imaging Data Radiologist's Impression: XR chest 1V portable CLINICAL HISTORY: SEPSIS COMPARISON STUDY: 08/04/2019 FINDINGS: The heart is enlarged. There is right hilar prominence. This could be secondary to prominent vessels or adenopathy. There is elevation of interstitium suggesting mild pulmonary vascular congestion. There is no lobar consolidation. There are no significant pleural effusions[ IMPRESSION: 1. Cardiomegaly and suspected mild pulmonary vascular congestion 2. Right hilar prominence. This could be secondary to prominent vessels or adenopathy. Blood Pressure Blood Pressure Findings: Elevated blood pressure Blood Pressure Disposition: further management by hospitalist Discharge Plan Visit Data Chief Complaint: Flu Like Symptoms Stated Complaint: FEVER/REALLY COLD ED Provider: Mark Sutherland Discharge Problem: Sepsis, Acute UTI, Hypomagnesemia, Renal transplant recipient, Immunocompromised Patient Disposition: Admitted As Inpatient Condition: Fair Discharge Instructions Interventions: ED Discharge Assessment Last Done: 01/28/20 19:25 Discharge Problem: Sepsis Qualifiers: Sepsis type: sepsis due to unspecified organism Sepsis acute organ dysfunction status: without acute organ dysfunction Qualified Code(s): A41.9 - Sepsis, unspecified organism
[2020-01-28 17:01] LABS: Basophils # (auto) 0.03 K/uL (0-0.2); Basophils % (auto) 0.3 %; Eosinophils # (auto) 0.08 K/uL (0-0.5); Eosinophils % (auto) 0.7 %; Hematocrit (blood only) 38.4 % (42-52); Hemoglobin 12.7 g/dL (14.0-18.0); Immature Granulocytes # (auto) 0.01 K/uL (0.00-0.02); Immature Granulocytes % (auto) 0.1 %; Lymphocytes # (auto) 0.62 K/uL (1.2-3.4); Lymphocytes % (auto) 5.6 %; Mean Corpuscular Hemoglobin 30.2 pg (25-34); Mean Corpuscular Hgb Conc 33.1 g/dL (32-36); Mean Corpuscular Volume 91.4 fL (80-100); Mean Platelet Volume 11.1 fL (7.4-10.4); Monocytes # (auto) 0.45 K/uL (0.11-0.59); Monocytes % (auto) 4.1 %; Neutrophils # (auto) 9.92 K/uL (1.4-6.5); Neutrophils % (auto) 89.2 %; Platelet Count 180 K/uL (130-400); RDW Standard Deviation 46.6 fL (36.4-46.3); White Blood Count 11.11 K/uL (4.8-10.8)
[2020-01-28 17:17] LABS: Appearance Urine Clear (Clear); Bacteria Urine Automated 4+ (Negative); Bilirubin Urine Negative (Negative); Blood Urine 2+ (Negative); Color Urine Dark Yellow; Glucose Urine UA Negative (Negative); Ketones Urine Negative (Negative); Leukocyte Esterase Urine 2+ (Negative); Nitrite Urine Negative (Negative); Protein Urine 3+ (Negative); Specific Gravity Urine 1.016 (1.000-1.030); Urobilinogen Urine Negative (Negative); WBC Urine Automated >30 /hpf (0-5); pH Urine 6.5 (4.5-7.5)
--- NOTE | 2020-01-28 17:18 | XRay Report ---
XR chest 1V portable CLINICAL HISTORY: SEPSIS COMPARISON STUDY: 08/04/2019 FINDINGS: The heart is enlarged. There is right hilar prominence. This could be secondary to prominen t vessels or adenopathy. There is elevation of interstitium suggesting mild pulmonary vascular conges tion. There is no lobar consolidation. There are no significant pleural effusions[ IMPRESSION: 1. Cardiomegaly and suspected mild pulmonary vascular congestion 2. Right hilar prominence. This could be secondary to prominent vessels or adenopathy. ACT 112: Negative or not required by law. Electronically signed by: Robert Raygoza M.D. 01/28/2020 5:17 PM
[2020-01-28 17:19] LABS: Albumin Level 4.4 gm/dl (3.4-5.0); BUN Creatinine Ratio 14.3 (10-20); Calcium 9.5 mg/dl (8.5-10.1); Creatinine Clr Calc Pharmacy 65.6 ml/min; Est GFR (African American) 50.8; Est GFR (Non-African American) 43.8; Magnesium 1.6 mg/dl (1.8-2.4); Partial Thromboplastin Ratio 1.3; Partial Thromboplastin Time 35.9 Seconds (21.0-31.0); Potassium 3.7 mmol/L (3.5-5.1); Prothrombin Time 20.3 Seconds (9.0-12.0)
[2020-01-28 17:22] LABS: Albumin Globulin Ratio 1.7 (0.9-2); Bilirubin,Total 0.9 mg/dl (0.2-1); Globulin 2.6 gm/dl (2.5-4.0)
[2020-01-28 17:58] LABS: Procalcitonin 0.05 ng/ml (0-0.5)
[2020-01-28 18:09] LABS: Lyme Ab IgG w/WB Rflx Negative (Negative); Lyme Ab IgM w/WB Rflx Negative (Negative)
[2020-01-28] MEDS: MAGNESIUM SULFATE / D5W 1 GM/100 ML BAG IV SCH ×2 (18:16→18:17)
--- NOTE | 2020-01-28 18:30 | History & Physical Report ---
Date of Service January 28, 2020 Assessment & Plan (1) Urinary tract infection: Patient likely has urinary tract infection with concern for infection of his transplanted organ. Dr. Sutherland in the ER has called Dr. 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 His INR is 2.0 on presentation (4) Hypertension: Patient is of a history of hypertension typically taking losartan 50 and amlodipine 5 twice daily (5) Depression: continue on duloxetine (6) GERD (gastroesophageal reflux disease): continue ppi (7) BPH (benign prostatic hyperplasia): flomax continues (8) Chronic venous stasis: Patient is marked swelling and discoloration of his lower legs. Both he and his states that discoloration is about typical for him and is not concerning for source of cellulitis. Patient is recently been placed on diuretic therapy of Lasix 60 twice daily to try to reduce his lower extremity swelling. His legs have swollen so much that he is unable to wear compressive stockings. We will down shift his Lasix to 80 once a day and have wound care evaluate his lower legs for possibility of compression stockings (9) DVT prophylaxis: remains on Coumadin History of Present Illness Primary Care Provider: Davion Pablo MD 59-year-old male who presents with Rigor's and a temperature was 103.1. Patient is a renal transplant patient. S is associated body aching and joint aching. He said no ill contacts There has been no cough or cold or congestion. No shortness of breath. The patient has had no known coronavirus exposures. H he has noticed some recent urinary frequency/urgency but no burning. He Lyme titer negative and a COVID test was negative his urinalysis shows 3+ protein 2+ blood 2+ leukocyte esterase he is white count 11.11 Allergies Allergy/AdvReac Type Severity Reaction Status Date / Time allopurinol Allergy Unknown Rash Verified 01/28/20 18:08 Penicillins Allergy Unknown Unknown Verified 01/28/20 18:08 Home Medications Home Medications Medication Instructions Recorded Confirmed Type febuxostat 80 mg tablet See Rx Instructions .ROUTE 02/07/19 01/28/20 Rx .COMPLEX #90 tablet omeprazole 40 mg capsule,delayed 40 mg PO QAM #90 cap 03/29/19 01/28/20 Rx release aspirin 81 mg tablet,delayed 81 mg PO QAM 04/24/19 01/28/20 History release cholecalciferol (vitamin D3) 25 1,000 units PO DAILY 04/24/19 01/28/20 History mcg (1,000 unit) capsule docusate sodium 100 mg capsule 100 mg PO BID PRN 04/24/19 01/28/20 History multivitamin 1 tab PO QAM 04/24/19 01/28/20 History mycophenolate mofetil 250 mg 1,000 mg PO BID 04/24/19 01/28/20 History capsule tamsulosin 0.4 mg capsule 0.4 mg PO QPM 04/24/19 01/28/20 History duloxetine 20 mg capsule,delayed 20 mg PO QAM #90 cap 05/29/19 01/28/20 Rx release prednisone 5 mg tablet 5 mg PO DAILY tab 05/29/19 01/28/20 History simvastatin 40 mg tablet 40 mg PO QPM #90 tab 05/29/19 01/28/20 Rx sodium di- and 2 tab PO TID tab 05/29/19 01/28/20 History monophosphate-potassium phos monobasic 250 mg tablet miscellaneous medical supply #1 ea 10/04/19 01/11/20 Rx amlodipine 5 mg tablet 5 mg PO BID tab 01/11/20 01/28/20 History cyclosporine 100 mg capsule 200 mg PO BID cap 01/11/20 01/28/20 History magnesium oxide 800 mg PO TID cap 01/11/20 01/28/20 History cyclosporine 50 mg PO BID 01/28/20 01/28/20 History gabapentin [Neurontin] 600 mg PO .BID UD 01/28/20 01/28/20 History gabapentin [Neurontin] 900 mg PO HS 01/28/20 01/28/20 History losartan [Cozaar] 50 mg PO DAILY 01/28/20 01/28/20 History warfarin [Coumadin] 10 mg PO QPM 01/28/20 01/28/20 History Past Med/Surg History Medical History (Updated 01/28/20 @ 18:51 by Mark Perez MD) Chronic kidney disease Deep vein blood clot of left lower extremity S/P LEFT LEG SURGERY (EXCISION OF MELANOMA LEFT LEG) 10 YEARS AGO. DVT (deep venous thrombosis) right 04/2019 End stage renal disease Family history of blood clots Gout Hyperlipidemia Hyperlipidemia Hypertension Sarcoidosis Sleep apnea CPAP Surgical History History of melanoma excision History of tonsillectomy History of tooth extraction Family History Other Cancer Lung disease Social History Smoking Status: Never smoker Second Hand Exposure: No; Hx Alcohol Use: No Hx Substance Use: No Preferred Language: Arabic Communication Ability: Effective Accounts Payable Administrator Required: No Beliefs That Will Affect Care: None marital status: Current Living Situation: Spouse Feels Safe at Home: Yes Review of Systems Review of Systems: Mild distress and fatigue no headache, blurry or double vision no speech or swallowing issues no chest pain, pressure or palpitations no shortness of breath, cough or wheezes no abdominal pain, nausea or vomiting, diarrhea or constipation no dysuria, hematuria or frequency no focal joint pain or swelling no back pain, CVA tenderness or radicular pain no bruising, bleeding or rashes no focal signs of weakness or numbness or altered sensation no complaints or anxiety or depression. Physical Exam Physical Exam: The patient appeared well nourished and normally developed. Vital signs as documented. Head exam is normocephalic atraumatic no scleral icterus Neck is without JVD, thyromegaly, or carotid bruits. Lungs are clear to auscultation, no focal loss of breath sounds Cardiac exam, Rhythm is regular.. No murmurs, rubs or gallops. Abdominal exam reveals normal bowel sounds, soft non tender, no masses Extremities are nonedematous and both pedal pulses are normal. Neurologic exam is alert and oriented, no focal loss of strength or sensation Skin is without bruises or rashes Psychologically is without concerns for anxiety or depression. Results & Data Results & Data ([facility]) Vital Signs (Past 12 Hours) Vital Signs Temp Pulse Pulse Resp BP BP Pulse Ox 01/28/20 17:21 93 H 24 128/72 95 01/28/20 17:20 94 01/28/20 17:04 101 H 20 128/72 95 01/28/20 16:50 20 96 01/28/20 16:48 96 01/28/20 15:00 99.7 F H 106 H 24 150/79 H 99 Chest x-ray shows cardiomegaly and mild pulmonary vascular congestion, right hilar prominence EKG shows normal sinus rhythm PG Care Time/CCT Total # of Minutes Spent Total Time Spent with Patient: Total time spent is greater than 50% in coordination of care (as documented) at patient's floor/unit and/or counseling patient: Coding Level of Care Code 92735 Initial Inpt Care Lvl 3 Diagnoses Urinary tract infection N39.0 Focal glomerular sclerosis N05.1 DVT (deep venous thrombosis) I82.409 Hypertension I10 Depression F32.9 GERD (gastroesophageal reflux disease) K21.9 BPH (benign prostatic hyperplasia) N40.0 Chronic venous stasis I87.8 DVT prophylaxis Z29.9
[2020-01-28] MEDS ORDERED: DOCUSATE SODIUM 100 MG CAP PO PRN (20:04)
[2020-01-28] MEDS ORDERED: FEBUXOSTAT SCH (20:04)
[2020-01-28] MEDS ORDERED: ALUMINUM/MAGNESIUM SUSP 30 ML UDC PO PRN (20:04)
[2020-01-28] MEDS ORDERED: ONDANSETRON INJ 2 MG/ML 2 ML VIAL IV PRN (20:04)
[2020-01-28] MEDS ORDERED: ACETAMINOPHEN 325 MG TAB ONE (20:06)
[2020-01-28] MEDS: MAGNESIUM OXIDE 400 MG TAB PO SCH (21:16)
[2020-01-28] MEDS: MYCOPHENOLATE MOFETIL 250 MG CAP PO SCH (21:16)
[2020-01-28] MEDS: TAMSULOSIN HCL 0.4 MG CAP PO SCH (21:16)
[2020-01-28] MEDS: GABAPENTIN 300 MG CAP PO SCH (21:17)
[2020-01-28] MEDS: AMLODIPINE BESYLATE 5 MG TAB PO SCH (21:18)
[2020-01-28] MEDS: SIMVASTATIN 40 MG TAB PO SCH (21:19)
[2020-01-28] MEDS: POT PHOSPHATE MONOBASIC W/ SOD TAB PO SCH (21:20)
[2020-01-28] MEDS: cycloSPORINE (SANDIMMUNE) 25 MG CAP PO SCH ×2 (21:21)
[2020-01-29] MEDS: CEFEPIME 2,000 MG in SYRINGE 7.5 ML IV SCH ×2 (05:34→18:06)
[2020-01-29 06:45] LABS: INR 1.9 (0.9-1.1); Prothrombin Time 19.2 Seconds (9.0-12.0)
[2020-01-29 07:05] LABS: BUN Creatinine Ratio 13.6 (10-20); Calcium 8.1 mg/dl (8.5-10.1); Creatinine Clr Calc Pharmacy 60.4 ml/min; Est GFR (African American) 45.8; Est GFR (Non-African American) 39.5; Magnesium 2.1 mg/dl (1.8-2.4); Potassium 3.8 mmol/L (3.5-5.1)
[2020-01-29] MEDS: DULOXETINE HCL 20 MG CAP PO SCH (08:26)
[2020-01-29] MEDS: MYCOPHENOLATE MOFETIL 250 MG CAP PO SCH ×2 (08:26→20:47)
[2020-01-29] MEDS: MULTIVITAMIN TAB PO SCH (08:27)
[2020-01-29] MEDS: cycloSPORINE (SANDIMMUNE) 25 MG CAP PO SCH ×4 (08:27→20:50)
[2020-01-29] MEDS: PANTOprazole 40 MG TAB PO SCH (08:27)
[2020-01-29] MEDS: predniSONE 5 MG TAB PO SCH (08:27)
[2020-01-29] MEDS: AMLODIPINE BESYLATE 5 MG TAB PO SCH ×2 (08:28→20:48)
[2020-01-29] MEDS: POT PHOSPHATE MONOBASIC W/ SOD TAB PO SCH ×3 (08:28→20:48)
[2020-01-29] MEDS: CHOLECALCIFEROL 1,000 UNITS 25 MCG TAB PO SCH (08:29)
[2020-01-29] MEDS: ASPIRIN 81 MG ECTAB PO SCH (08:29)
[2020-01-29] MEDS: GABAPENTIN 300 MG CAP PO SCH ×3 (08:30→20:48)
[2020-01-29] MEDS: MAGNESIUM OXIDE 400 MG TAB PO SCH ×3 (08:30→20:48)
[2020-01-29] MEDS ORDERED: LOSARTAN POTASSIUM 50 MG TAB PO SCH (09:00)
[2020-01-29] MEDS ORDERED: FUROSEMIDE 20 MG TAB PO SCH (09:00)
--- NOTE | 2020-01-29 10:41 | Nephrology Consultation ---
Date of Consultation January 29, 2020 Assessment & Plan (1) Acute UTI: Mr. Prado is a 59-year-old gentleman that has a history of longstanding chronic renal disease presumably secondary to focal segmental glomerulosclerosis. He was begun on maintenance dialysis in 2018 and transplanted on April 04, 2019. He did well at least until this summer when he was noted to have significant proteinuria and edema. A renal biopsy done earlier this month was consistent with focal segmental glomerulosclerosis. Based on that, it was presumed that that was the etiology of his chronic renal disease. He is currently immunosuppressed on a combination of cyclosporine and mycophenolate. His mycophenolate dose has been reduced by 50%. He is also on low-dose steroids. His serum creatinine is higher than baseline probably because of his acute infection. He presented with a several hour history of urinary frequency, urgency and dysuria as well as right lower, a temperature to 103.6 and confusion. His serum creatinine is significantly higher since his admission. Urine cultures and blood cultures are positive for gram-negative yeyo. He appears to be improved on cefepime. His digital rectal exam shows an exquisitely tender prostate consistent with prostatitis as the source of his urinary tract infection. Would continue the current regimen for now. As his symptoms of a urinary tract infection as well as his fever resolves mycophenolate can be returned to his usual dose of 1 g twice daily. Would continue all other medications for now. His renal function and electrolytes should be checked on a daily basis. We should see improvement within the next 1 to 2 days. Until then, would continue to maintain him on IV fluids. (2) Renal transplant recipient: (3) Focal glomerular sclerosis: History of Present Illness Attending Physician: Davion Triana History of Present Illness Mr. Prado is a 59-year-old gentleman well-known to me. I have followed him for several years because of his problems of chronic renal failure. He initially presented to me many years ago with several medical problems. Amongst those was chronic renal insufficiency. His serum creatinine was significantly elevated at the time in the range of about 2 to 3 mg/Sandy. He had significant proteinuria but was not nephrotic. He was hypertensive. Other issues included a history of gout. Additionally, he was noted to have multiple pulmonary nodules. These were worked up and no specific etiology was initially determined. Over the course of several years his renal function gradually declined. It was associated with an elevated blood pressure as well as hypercholesterolemia. Both were treated and kept within an acceptable range. Additionally, his gout was initially treated with allopurinol but he did have a severe reaction to allopurinol. Later, he was started on Uloric 80 mg daily. He has never had uric acid nephrolithiasis. More recently, he became hypercalcemic. His work-up was consistent with sarcoidosis with a significant elevation of his SCOTT level. It responded to steroids. However, on high-dose steroid he did develop significant hyperglycemi a that transiently had to be treated with insulin. He had several flares of hypercalcemia each responding to prednisone. In 2019, he developed end-stage renal disease and was begun on maintenance di alysis. He was already in the process of being evaluated for kidney transplant. His dialysis was complicated by relatively severe headaches associated with the treatment but they resolved and have not recurred since dialysis was discontinued. On April 04, 2019 he underwent a living unrelated donor transplant. The donor was his [id number]. Initially, he did quite well with his serum creatinine dropping to the range of 1.1 to 1.3 mg/Sandy. No suppression was initially mycophenolate mofetil and belatacept. He was also on 5 mg of prednisone daily after initial tapering doses. Additional issues began to develop in October of this year. First, he developed a DVT in his left leg. He has a history of bilateral chronic venous stasis dermatitis but nonetheless an acute clot was recognized and he was started on warfarin. He has remained on 10 mg of warfarin since that time. Of note is the fact that he does have a history of a malignant melanoma that was on his left calf. That was resected and there was a large scar but still he had not had an acute DVT in that leg until October. For further problem developed when he developed bilateral lower extremity edema in November 2019. His urinalysis was abnormal with significant proteinuria. His urine protein to creatinine ratio was significantly elevated in the range of 5.5. Renal biopsy was done on January 01, 2020. It showed changes consistent with focal segmental glomeruler sclerosis. I cannot find any documentation that immunofluorescence staining was done. Nonetheless, he was treated with a tapering course of steroids and plasmapheresis. Additionally, his belatacept was discontinued in favor of cyclosporine now and a dose of 200 mg twice daily. Losartan was added to his regimen as an antihypertensive and to help minimize his proteinuria. He had already been on amlodipine 5 mg twice daily for the management of his hypertension. Those changes, including plasmapheresis, did not lead to any significant improvement in his proteinuria. However, his serum creatinine remained fairly stable at about 1.3 mg/Sandy. He has a history of benign prostatic hypertrophy and does take tamsulosin 0.4 mg each evening. He has nocturia x4 but says that he wakes up because of symptoms of a peripheral neuropathy. He starts to walk around to get relief from his symptoms and has a habit of urinating at that time. His immediate issues seem to begin yesterday at about 11 AM. He was working at his office. He began to notice symptoms of urinary frequency. He said that he was having to urinate about every 10 minutes. He was not urinating large volumes. He said that there was a slight burning with urination. He continued to have a significant urgency to void. At about the same time, he began to develop chilly sensations and then shelby right lower. He went home. He could not get warm. He did not initially take his temperature. His came home and found him to be confused. She took his temperature twice. It was 103.1 to 103.6 F. She then brought him to the emergency room. In the emergency room his blood pressure was normal but he was somewhat confused. He was febrile. His white count was elevated and his urinalysis showed significant white cells and bacteria. She had appropriate blood and urine cultures and has been started on cefepime. He said that his symptoms continued. However, when he was a wakened at about 3 or 4:00 this morning, he noted that he felt dramatically better. He has been afebrile since that time. He still has some urinary frequency. Thus far, his urine culture appears to be positive for gram-negative yeyo. Additionally, he has a gram-negative yeyo in his blood. Other medical issues not mentioned above include his peripheral neuropathy for which he takes gabapentin 600 mg twice daily and 900 mg at bedtime. He also takes Cymbalta 20 mg each morning to help with his symptoms of peripheral neuropathy. He has a history of obstructive sleep apnea and does use CPAP. He also has a history of GERD for which he takes omeprazole 40 mg daily. Apparently, the transplant program at [facility] was made aware of the fact that he was here. They suggested reducing his mycophenolate mofetil by 50%. No other recommendations were made other than broad-spectrum antibiotics which she was already on. His review of systems is otherwise unremarkable. Details of his past medical history are well-documented. Allergies Allergy/AdvReac Type Severity Reaction Status Date / Time allopurinol Allergy Unknown Rash Verified 01/28/20 18:08 Penicillins Allergy Unknown Unknown Verified 01/28/20 18:08 Home Medications Home Medications Medication Instructions Recorded Confirmed Type omeprazole 40 mg capsule,delayed 40 mg PO QAM #90 cap 03/29/19 01/28/20 Rx release aspirin 81 mg tablet,delayed 81 mg PO QAM 04/24/19 01/28/20 History release cholecalciferol (vitamin D3) 25 1,000 units PO DAILY 04/24/19 01/28/20 History mcg (1,000 unit) capsule docusate sodium 100 mg capsule 100 mg PO BID PRN 04/24/19 01/28/20 History multivitamin 1 tab PO QAM 04/24/19 01/28/20 History mycophenolate mofetil 250 mg 1,000 mg PO BID 04/24/19 01/28/20 History capsule tamsulosin 0.4 mg capsule 0.4 mg PO QPM 04/24/19 01/28/20 History duloxetine 20 mg capsule,delayed 20 mg PO QAM #90 cap 05/29/19 01/28/20 Rx release prednisone 5 mg tablet 5 mg PO DAILY tab 05/29/19 01/28/20 History simvastatin 40 mg tablet 40 mg PO QPM #90 tab 05/29/19 01/28/20 Rx sodium di- and 2 tab PO TID tab 05/29/19 01/28/20 History monophosphate-potassium phos monobasic 250 mg tablet miscellaneous medical supply #1 ea 10/04/19 01/11/20 Rx amlodipine 5 mg tablet 5 mg PO BID tab 01/11/20 01/28/20 History cyclosporine 100 mg capsule 200 mg PO BID cap 01/11/20 01/28/20 History magnesium oxide 800 mg PO TID cap 01/11/20 01/28/20 History cyclosporine 50 mg PO BID 01/28/20 01/28/20 History gabapentin [Neurontin] 600 mg PO .BID UD 01/28/20 01/28/20 History gabapentin [Neurontin] 900 mg PO HS 01/28/20 01/28/20 History losartan [Cozaar] 50 mg PO DAILY 01/28/20 01/28/20 History warfarin [Coumadin] 10 mg PO QPM 01/28/20 01/28/20 History Patient History Medical History Chronic kidney disease Deep vein blood clot of left lower extremity S/P LEFT LEG SURGERY (EXCISION OF MELANOMA LEFT LEG) 10 YEARS AGO. DVT (deep venous thrombosis) right 04/2019 End stage renal disease Family history of blood clots Gout Hyperlipidemia Hyperlipidemia Hypertension Sarcoidosis Sleep apnea CPAP Surgical History (Updated 01/28/20 @ 18:53 by Mark Sutherland MD) History of melanoma excision History of tonsillectomy History of tooth extraction Family History Other Cancer Lung disease Social History Smoking Status: Never smoker Second Hand Exposure: No; Hx Alcohol Use: No Hx Substance Use: No Preferred Language: Greek Communication Ability: Effective Study Hall Supervisor Required: No Beliefs That Will Affect Care: None marital status: Current Living Situation: Spouse and Family Current Living Situation Comment: sister and son as well Feels Safe at Home: Yes Safety Concerns: Feels Safe At This Time Physical Exam Physical Exam: On physical examination, Mr. Prado appears as an overweight middle-aged gentleman of about his stated age of 59. At the time seen by me, he was awake, alert and oriented and not at all confused. He is a reasonably good historian. His blood pressure was 103/67 with a pulse of 64 and regular. Respiratory rate is 20 and his oxygen saturation was 99% on 2 L of oxygen via nasal cannula. He is currently afebrile (36.5). Examination of his skin shows normal skin turgor. He has scars from prior surgeries including a scar on his left forearm from the creation of an AV fistula. He has a right lower quadrant scar from his kidney transplant. He has a large scar on the back of his left calf from the resection of his malignant melanoma. He has obvious changes of chronic venous stasis dermatitis on his distal lower extremities. He has some changes of folliculitis on his torso. He has no palpable lymphadenopathy. His head is normal. Eyes are grossly normal. The ocular fundi were not examined. Ears, nose, mouth and throat are all unremarkable. His oral mucous membranes are moist. His neck is supple. There is no jugular venous distention although the exam is limited by his body habitus. There is no carotid bruit or thyromegaly. His chest is clear to auscultation. Cardiac exam shows a regular rhythm. S1 and S2 are normal. He has a grade 2/6 systolic ejection murmur heard at the base and upper left sternal border and radiating toward the neck. No diastolic murmurs or gallops are noted. His abdomen is obese. It is nontender. His renal transplant is palpable in the right lower quadrant. It does not seem tender. He has no organomegaly or mass. Bowel sounds are normal. A digital rectal exam showed exquisite tenderness of his prostate. Extremi ties showed trace bilateral lower extremity edema and changes of chronic venous stasis dermatitis. He has a left arm AV fistula. He has some changes of osteoarthritis involving his knees. His neurologic exam shows no lateralizing changes. He has some hyperesthesia of his feet. Deep tendon reflexes were not tested. Results & Data ([facility]) Vital Signs (Past 12 Hours) Vital Signs Temp Pulse Pulse Resp BP Pulse Ox 01/29/20 07:42 36.5 C 64 20 103/67 99 01/29/20 03:00 36.5 C 69 20 97/62 L 96 01/28/20 23:59 103 H 01/28/20 23:57 36.7 C 78 20 101/67 95 Laboratory Results Laboratory Results - last 24 hr 01/28/20 01/28/20 01/28/20 16:25 16:25 16:25 WBC 11.11 H RBC 4.20 L Hgb 12.7 L Hct 38.4 L MCV 91.4 MCH 30.2 MCHC 33.1 RDW Std Deviation 46.6 H RDW Coeff of Theresa 14.0 Plt Count 180 MPV 11.1 H Immature Gran % (Auto) 0.1 Neut % (Auto) 89.2 Lymph % (Auto) 5.6 Knox % (Auto) 4.1 Eos % (Auto) 0.7 Baso % (Auto) 0.3 Neut # (Auto) 9.92 H Lymph # (Auto) 0.62 L Knox # (Auto) 0.45 Eos # (Auto) 0.08 Baso # (Auto) 0.03 Immature Gran # (Auto) 0.01 PT 20.3 H INR 2.0 H APTT 35.9 H PTT Ratio 1.3 Sodium 139 Potassium 3.7 Chloride 103 Carbon Dioxide 29 Anion Gap 7.0 BUN 24 H Creatinine 1.69 H Est Cr Clr Drug Dosing 65.6 Est GFR ( Amer) 50.8 Est GFR (Non-Af Amer) 43.8 BUN/Creatinine Ratio 14.3 Glucose 92 Lactate Calcium 9.5 Magnesium 1.6 L Total Bilirubin 0.9 AST 23 ALT 27 Alkaline Phosphatase 64 Total Protein 7.0 Albumin 4.4 Globulin 2.6 Albumin/Globulin Ratio 1.7 Procalcitonin Urine Color Urine Appearance Urine pH Ur Specific Frost Urine Protein Urine Glucose (UA) Urine Ketones Urine Blood Urine Nitrite Urine Bilirubin Urine Urobilinogen Ur Leukocyte Esterase Urine WBC (Auto) Urine RBC (Auto) U Hyaline Cast (Auto) U Epithel Cells (Auto) Urine Bacteria (Auto) Lyme Disease IgG Ab Lyme Disease IgM Ab COVID-19 Eval Order COVID-19 PCR 01/28/20 01/28/20 01/28/20 16:25 16:25 16:25 WBC RBC Hgb Hct MCV MCH MCHC RDW Std Deviation RDW Coeff of Theresa Plt Count MPV Immature Gran % (Auto) Neut % (Auto) Lymph % (Auto) Knox % (Auto) Eos % (Auto) Baso % (Auto) Neut # (Auto) Lymph # (Auto) Knox # (Auto) Eos # (Auto) Baso # (Auto) Immature Gran # (Auto) PT INR APTT PTT Ratio Sodium Potassium Chloride Carbon Dioxide Anion Gap BUN Creatinine Est Cr Clr Drug Dosing Est GFR ( Amer) Est GFR (Non-Af Amer) BUN/Creatinine Ratio Glucose Lactate 1.1 Calcium Magnesium Total Bilirubin AST ALT Alkaline Phosphatase Total Protein Albumin Globulin Albumin/Globulin Ratio Procalcitonin 0.05 Urine Color Dark Yellow Urine Appearance Clear Urine pH 6.5 Ur Specific Frost 1.016 Urine Protein 3+ H Urine Glucose (UA) Negative Urine Ketones Negative Urine Blood 2+ H Urine Nitrite Negative Urine Bilirubin Negative Urine Urobilinogen Negative Ur Leukocyte Esterase 2+ H Urine WBC (Auto) >30 H Urine RBC (Auto) 10-30 H U Hyaline Cast (Auto) 1-5 U Epithel Cells (Auto) 10-20 H Urine Bacteria (Auto) 4+ H Lyme Disease IgG Ab Negative Lyme Disease IgM Ab Negative COVID-19 Eval Order COVID-19 PCR 01/28/20 01/28/20 01/29/20 16:35 16:35 06:12 WBC RBC Hgb Hct MCV MCH MCHC RDW Std Deviation RDW Coeff of Theresa Plt Count MPV Immature Gran % (Auto) Neut % (Auto) Lymph % (Auto) Knox % (Auto) Eos % (Auto) Baso % (Auto) Neut # (Auto) Lymph # (Auto) Knox # (Auto) Eos # (Auto) Baso # (Auto) Immature Gran # (Auto) PT 19.2 H INR 1.9 H APTT PTT Ratio Sodium Potassium Chloride Carbon Dioxide Anion Gap BUN Creatinine Est Cr Clr Drug Dosing Est GFR ( Amer) Est GFR (Non-Af Amer) BUN/Creatinine Ratio Glucose Lactate Calcium Magnesium Total Bilirubin AST ALT Alkaline Phosphatase Total Protein Albumin Globulin Albumin/Globulin Ratio Procalcitonin Urine Color Urine Appearance Urine pH Ur Specific Frost Urine Protein Urine Glucose (UA) Urine Ketones Urine Blood Urine Nitrite Urine Bilirubin Urine Urobilinogen Ur Leukocyte Esterase Urine WBC (Auto) Urine RBC (Auto) U Hyaline Cast (Auto) U Epithel Cells (Auto) Urine Bacteria (Auto) Lyme Disease IgG Ab Lyme Disease IgM Ab COVID-19 Eval Order Covid19 Done at [facility] COVID-19 PCR NEGATIVE 01/29/20 06:12 WBC RBC Hgb Hct MCV MCH MCHC RDW Std Deviation RDW Coeff of Theresa Plt Count MPV Immature Gran % (Auto) Neut % (Auto) Lymph % (Auto) Knox % (Auto) Eos % (Auto) Baso % (Auto) Neut # (Auto) Lymph # (Auto) Knox # (Auto) Eos # (Auto) Baso # (Auto) Immature Gran # (Auto) PT INR APTT PTT Ratio Sodium 138 Potassium 3.8 Chloride 104 Carbon Dioxide 26 Anion Gap 8.0 BUN 25 H Creatinine 1.84 H Est Cr Clr Drug Dosing 60.4 Est GFR ( Amer) 45.8 Est GFR (Non-Af Amer) 39.5 BUN/Creatinine Ratio 13.6 Glucose 98 Lactate Calcium 8.1 L Magnesium 2.1 Total Bilirubin AST ALT Alkaline Phosphatase Total Protein Albumin Globulin Albumin/Globulin Ratio Procalcitonin Urine Color Urine Appearance Urine pH Ur Specific Frost Urine Protein Urine Glucose (UA) Urine Ketones Urine Blood Urine Nitrite Urine Bilirubin Urine Urobilinogen Ur Leukocyte Esterase Urine WBC (Auto) Urine RBC (Auto) U Hyaline Cast (Auto) U Epithel Cells (Auto) Urine Bacteria (Auto) Lyme Disease IgG Ab Lyme Disease IgM Ab COVID-19 Eval Order COVID-19 PCR PG Care Time/CCT Total # of Minutes Spent Total Time Spent with Patient: Total time spent is greater than 50% in coordination of care (as documented) at patient's floor/unit and/or counseling patient: 65 minutes Coding Level of Care Code 75829 Inpt Consult Level 5 Diagnoses Acute UTI N39.0 Renal transplant recipient Z94.0 Focal glomerular sclerosis N05.1
--- NOTE | 2020-01-29 11:41 | Hospitalist Progress Note ---
Date of Service January 29, 2020 Assessment & Plan (1) Septicemia: 2nd to gram negative yeyo. source - acute prostatitis/UTI. repeat blood cx's x 2 sets today. cont IV cefepime. supportive care. Will need minimum 2 weeks of antibiotics from date of first set of negative blood cx's. Given the prostatitis 4 weeks of Rx may be most prudent. (2) Acute prostatitis: VERONICA performed by Dr Pablo. Findings c/w prostatitis. He will need in upwards of 4 weeks of Rx. Cont flomax. (3) Urinary tract infection: 2nd GNR. see above. (4) Acute kidney injury: baseline Cr about 1.2/1.3 today - 1.[address] Pablo's consultation BMP am avoid nephrotoxic agents LORENZO is sepsis-associated Hold lasix and ARB? 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 Daily INR. Cont warfarin. Watch for lability given concomitant antibiotic usage. (7) Hypertension: Cont amlodipine 5mg BID. Hold ARB in light of LORENZO. Hold lasix in light of LORENZO. (8) Depression: continue duloxetine (9) GERD (gastroesophageal reflux disease): continue ppi (10) BPH (benign prostatic hyperplasia): cont flomax see above in acute prostatitis (11) Chronic venous stasis: no evidence of superimposed cellulitis. hold lasix due to LORENZO. (12) Renal transplant recipient: appreciate Dr Pablo's consultation. cont cyclosporine 250mg BID. cont mycophenolate albeit at reduced dose of 500mg BID. cont prednisone 5mg daily. Defer on stress doses for now. The care team spoke with his transplant team in [place] yesterday at time of admission. (13) DVT prophylaxis: Coumadin daily INR PT, OT consults updated at bedside Admission and Anticipated Discharge Date Admission Date: January 28, 2020 Subjective patient feeling much better today. fevers and chills resolved. had mild confusion at home before coming to hospital - now resolved ( at bedside confirms such). good appetite. no abdominal pain or back pain. Dr Pablo performed VERONICA this am - prostate was exquisitely tender per patient. takes chronic flomax. did have LUTS at home - these symptoms are improved. Review of Systems Constitutional: no fever, no chills, no fatigue and no anorexia Respiratory: no cough and no dyspnea Cardiovascular: no chest pain Gastrointestinal: no abdominal pain, no nausea and no vomiting denies pain over renal transplant area Physical Exam Constitutional: well developed, well nourished and + morbidly obese; no acute distress and no altered mental status ENMT: external ear and nose normal, oropharynx normal Respiratory: normal respiratory effort, lungs clear to auscultation Cardiovascular: Rate/Rhythm: regular rate and regular rhythm Heart Sounds: normal S1 and normal S2; no murmur Vessels: posterior tibial pulses present and dorsalis pedis pulses present; no JVD Extremities: + edema (trace b/l ) Gastrointestinal (Abdomen): normal bowel sounds, soft, nontender, no hepatosplenomegaly Inspection/Auscultation: + abdominal surgical scar (RLQ ) renal transplant palpable in RLQ; it is NOT tender to palpation Skin: stasis changes b/l shins Psychiatric: A+Ox3, euthymic affect Results & Data Results & Data ([facility]) Vital Signs (Past 12 Hours) Vital Signs Temp Pulse Pulse Resp BP Pulse Ox 01/29/20 11:20 36.4 C L 63 18 110/74 97 01/29/20 07:42 36.5 C 64 20 103/67 99 01/29/20 03:00 36.5 C 69 20 97/62 L 96 01/28/20 23:59 103 H 01/28/20 23:57 36.7 C 78 20 101/67 95 Laboratory Results Laboratory Results - last 24 hr 01/28/20 01/28/20 01/28/20 16:25 16:25 16:25 WBC 11.11 H RBC 4.20 L Hgb 12.7 L Hct 38.4 L MCV 91.4 MCH 30.2 MCHC 33.1 RDW Std Deviation 46.6 H RDW Coeff of Theresa 14.0 Plt Count 180 MPV 11.1 H Immature Gran % (Auto) 0.1 Neut % (Auto) 89.2 Lymph % (Auto) 5.6 [place] % (Auto) 4.1 Eos % (Auto) 0.7 Baso % (Auto) 0.3 Neut # (Auto) 9.92 H Lymph # (Auto) 0.62 L [place] # (Auto) 0.45 Eos # (Auto) 0.08 Baso # (Auto) 0.03 Immature Gran # (Auto) 0.01 PT 20.3 H INR 2.0 H APTT 35.9 H PTT Ratio 1.3 Sodium 139 Potassium 3.7 Chloride 103 Carbon Dioxide 29 Anion Gap 7.0 BUN 24 H Creatinine 1.69 H Est Cr Clr Drug Dosing 65.6 Est GFR ( Amer) 50.8 Est GFR (Non-Af Amer) 43.8 BUN/Creatinine Ratio 14.3 Glucose 92 Lactate Calcium 9.5 Magnesium 1.6 L Total Bilirubin 0.9 AST 23 ALT 27 Alkaline Phosphatase 64 Total Protein 7.0 Albumin 4.4 Globulin 2.6 Albumin/Globulin Ratio 1.7 Procalcitonin Urine Color Urine Appearance Urine pH Ur Specific [place] Urine Protein Urine Glucose (UA) Urine Ketones Urine Blood Urine Nitrite Urine Bilirubin Urine Urobilinogen Ur Leukocyte Esterase Urine WBC (Auto) Urine RBC (Auto) U Hyaline Cast (Auto) U Epithel Cells (Auto) Urine Bacteria (Auto) Lyme Disease IgG Ab Lyme Disease IgM Ab COVID-19 Eval Order COVID-19 PCR 01/28/20 01/28/20 01/28/20 16:25 16:25 16:25 WBC RBC Hgb Hct MCV MCH MCHC RDW Std Deviation RDW Coeff of Theresa Plt Count MPV Immature Gran % (Auto) Neut % (Auto) Lymph % (Auto) [place] % (Auto) Eos % (Auto) Baso % (Auto) Neut # (Auto) Lymph # (Auto) [place] # (Auto) Eos # (Auto) Baso # (Auto) Immature Gran # (Auto) PT INR APTT PTT Ratio Sodium Potassium Chloride Carbon Dioxide Anion Gap BUN Creatinine Est Cr Clr Drug Dosing Est GFR ( Amer) Est GFR (Non-Af Amer) BUN/Creatinine Ratio Glucose Lactate 1.1 Calcium Magnesium Total Bilirubin AST ALT Alkaline Phosphatase Total Protein Albumin Globulin Albumin/Globulin Ratio Procalcitonin 0.05 Urine Color Dark Yellow Urine Appearance Clear Urine pH 6.5 Ur Specific [place] 1.016 Urine Protein 3+ H Urine Glucose (UA) Negative Urine Ketones Negative Urine Blood 2+ H Urine Nitrite Negative Urine Bilirubin Negative Urine Urobilinogen Negative Ur Leukocyte Esterase 2+ H Urine WBC (Auto) >30 H Urine RBC (Auto) 10-30 H U Hyaline Cast (Auto) 1-5 U Epithel Cells (Auto) 10-20 H Urine Bacteria (Auto) 4+ H Lyme Disease IgG Ab Negative Lyme Disease IgM Ab Negative COVID-19 Eval Order COVID-19 PCR 01/28/20 01/28/20 01/29/20 16:35 16:35 06:12 WBC RBC Hgb Hct MCV MCH MCHC RDW Std Deviation RDW Coeff of Theresa Plt Count MPV Immature Gran % (Auto) Neut % (Auto) Lymph % (Auto) [place] % (Auto) Eos % (Auto) Baso % (Auto) Neut # (Auto) Lymph # (Auto) [place] # (Auto) Eos # (Auto) Baso # (Auto) Immature Gran # (Auto) PT 19.2 H INR 1.9 H APTT PTT Ratio Sodium Potassium Chloride Carbon Dioxide Anion Gap BUN Creatinine Est Cr Clr Drug Dosing Est GFR ( Amer) Est GFR (Non-Af Amer) BUN/Creatinine Ratio Glucose Lactate Calcium Magnesium Total Bilirubin AST ALT Alkaline Phosphatase Total Protein Albumin Globulin Albumin/Globulin Ratio Procalcitonin Urine Color Urine Appearance Urine pH Ur Specific [place] Urine Protein Urine Glucose (UA) Urine Ketones Urine Blood Urine Nitrite Urine Bilirubin Urine Urobilinogen Ur Leukocyte Esterase Urine WBC (Auto) Urine RBC (Auto) U Hyaline Cast (Auto) U Epithel Cells (Auto) Urine Bacteria (Auto) Lyme Disease IgG Ab Lyme Disease IgM Ab COVID-19 Eval Order Covid19 Done at [facility] COVID-19 PCR NEGATIVE 01/29/20 06:12 WBC RBC Hgb Hct MCV MCH MCHC RDW Std Deviation RDW Coeff of Theresa Plt Count MPV Immature Gran % (Auto) Neut % (Auto) Lymph % (Auto) [place] % (Auto) Eos % (Auto) Baso % (Auto) Neut # (Auto) Lymph # (Auto) [place] # (Auto) Eos # (Auto) Baso # (Auto) Immature Gran # (Auto) PT INR APTT PTT Ratio Sodium 138 Potassium 3.8 Chloride 104 Carbon Dioxide 26 Anion Gap 8.0 BUN 25 H Creatinine 1.84 H Est Cr Clr Drug Dosing 60.4 Est GFR ( Amer) 45.8 Est GFR (Non-Af Amer) 39.5 BUN/Creatinine Ratio 13.6 Glucose 98 Lactate Calcium 8.1 L Magnesium 2.1 Total Bilirubin AST ALT Alkaline Phosphatase Total Protein Albumin Globulin Albumin/Globulin Ratio Procalcitonin Urine Color Urine Appearance Urine pH Ur Specific [place] Urine Protein Urine Glucose (UA) Urine Ketones Urine Blood Urine Nitrite Urine Bilirubin Urine Urobilinogen Ur Leukocyte Esterase Urine WBC (Auto) Urine RBC (Auto) U Hyaline Cast (Auto) U Epithel Cells (Auto) Urine Bacteria (Auto) Lyme Disease IgG Ab Lyme Disease IgM Ab COVID-19 Eval Order COVID-19 PCR blood cx's, 2/4 bottles, positive for GNR urine cx with GNR PG Care Time/CCT Total # of Minutes Spent Total Time Spent with Patient: Total time spent is greater than 50% in coordination of care (as documented) at patient's floor/unit and/or counseling patient: Coding Level of Care Code 07470 Subseq Hosp Care Lvl 3 Diagnoses Septicemia A41.9 Acute prostatitis N41.0 Urinary tract infection N30.00 Urinary tract infection type: acute cystitis Hematuria presence: without hematuria Acute kidney injury N17.9 Acute metabolic encephalopathy G93.41 DVT (deep venous thrombosis) I82.409 DVT location: lower extremity Affected thrombotic vein of extremity: unspecified vein of extremity Chronicity: unspecified Laterality: unspecified laterality Hypertension I10 Hypertension type: essential hypertension Depression F32.89 Depression Type: other depression GERD (gastroesophageal reflux disease) K21.9 Esophagitis presence: without esophagitis BPH (benign prostatic hyperplasia) N40.1; R39.11 Lower urinary tract symptom presence: symptoms present Lower urinary tract symptom detail: urinary hesitancy Chronic venous stasis I87.8 Renal transplant recipient Z94.0 DVT prophylaxis Z29.9 (1) Urinary tract infection Urinary tract infection type: acute cystitis Hematuria presence: without hematuria Qualified Code(s): N30.00 - Acute cystitis without hematuria (2) BPH (benign prostatic hyperplasia) Lower urinary tract symptom presence: symptoms present Lower urinary tract sy mptom detail: urinary hesitancy Qualified Code(s): N40.1 - Benign prostatic hyperplasia with lower urinary tract symptoms; R39.11 - Hesitancy of micturition (3) DVT (deep venous thrombosis) DVT location: lower extremity Affected thrombotic vein of extremity: unspecified vein of extremity Chronicity: unspecified Laterality: unspecified laterality Qualified Code(s): I82.409 - Acute embolism and thrombosis of unspecified deep veins of unspecified lower extremity (4) Depression Depression Type: other depression Qualified Code(s): F32.89 - Other specified depressive episodes (5) GERD (gastroesophageal reflux disease) Esophagitis presence: without esophagitis Qualified Code(s): K21.9 - Gastro- esophageal reflux disease without esophagitis (6) Hypertension Hypertension type: essential hypertension Qualified Code(s): I10 - Essential (primary) hypertension
[2020-01-29] MEDS: WARFARIN SOD 10 MG TAB PO SCH (15:50)
[2020-01-29] MEDS: TAMSULOSIN HCL 0.4 MG CAP PO SCH (20:48)
[2020-01-29] MEDS: SIMVASTATIN 40 MG TAB PO SCH (20:50)
[2020-01-29] MEDS: ACETAMINOPHEN 325 MG TAB PO PRN (23:39)
[2020-01-30] MEDS: ACETAMINOPHEN 325 MG TAB PO PRN (03:42)
[2020-01-30] MEDS: CEFEPIME 2,000 MG in SYRINGE 7.5 ML IV SCH ×2 (05:35→17:09)
--- NOTE | 2020-01-30 06:29 | Electrocardiogram Report ---
Test Reason : Blood Pressure : / mmHG Vent. Rate : 096 BPM Atrial Rate : 096 BPM P-R Int : 164 ms QRS Dur : 108 ms QT Int : 348 ms P-R-T Axes : 017 -50 043 degrees QTc Int : 439 ms Poor data quality, interpretation may be adversely affected Normal sinus rhythm Left axis deviation Cannot rule out Anterior infarct , age undetermined Abnormal ECG When compared with ECG of 04-AUG-2019 17:37, Minimal criteria for Anterior infarct are now Present Confirmed by Brayden Marte ([id number]) on 01/30/2020 6:28:43 AM Referred By: REFERRED SELF Confirmed By:Brayden Marte
[2020-01-30 07:59] LABS: Hematocrit (blood only) 40.5 % (42-52); Hemoglobin 12.6 g/dL (14.0-18.0); Mean Corpuscular Hemoglobin 29.2 pg (25-34); Mean Corpuscular Hgb Conc 31.1 g/dL (32-36); Mean Platelet Volume 11.3 fL (7.4-10.4); Platelet Count 158 K/uL (130-400); RDW Coefficient of Variation 13.9 % (11.5-14.5); RDW Standard Deviation 48.2 fL (36.4-46.3); Red Blood Count 4.31 M/uL (4.7-6.1); White Blood Count 9.19 K/uL (4.8-10.8)
[2020-01-30 08:09] LABS: INR 2.1 (0.9-1.1)
[2020-01-30] MEDS: DULOXETINE HCL 20 MG CAP PO SCH (08:33)
[2020-01-30] MEDS: MAGNESIUM OXIDE 400 MG TAB PO SCH ×3 (08:33→20:35)
[2020-01-30] MEDS: MULTIVITAMIN TAB PO SCH (08:33)
[2020-01-30] MEDS: ASPIRIN 81 MG ECTAB PO SCH (08:33)
[2020-01-30] MEDS: MYCOPHENOLATE MOFETIL 250 MG CAP PO SCH ×2 (08:33→20:35)
[2020-01-30] MEDS: predniSONE 5 MG TAB PO SCH (08:34)
[2020-01-30] MEDS: GABAPENTIN 300 MG CAP PO SCH ×3 (08:34→20:35)
[2020-01-30] MEDS: AMLODIPINE BESYLATE 5 MG TAB PO SCH ×2 (08:34→20:35)
[2020-01-30] MEDS: POT PHOSPHATE MONOBASIC W/ SOD TAB PO SCH ×3 (08:34→20:35)
[2020-01-30] MEDS: cycloSPORINE (SANDIMMUNE) 25 MG CAP PO SCH ×4 (08:34→20:34)
[2020-01-30] MEDS: PANTOprazole 40 MG TAB PO SCH (08:34)
[2020-01-30] MEDS: CHOLECALCIFEROL 1,000 UNITS 25 MCG TAB PO SCH (08:36)
[2020-01-30 08:43] LABS: BUN Creatinine Ratio 14.3 (10-20); Calcium 9.5 mg/dl (8.5-10.1); Creatinine Clr Calc Pharmacy 59.4 ml/min; Est GFR (African American) 44.1; Potassium 3.4 mmol/L (3.5-5.1)
--- NOTE | 2020-01-30 09:53 | Nephrology Progress Note ---
Date of Service January 30, 2020 Assessment & Plan (1) Acute prostatitis: (2) Renal transplant recipient: (3) Renal insufficiency: Mr. Prado is obviously improved. He has an acute urinary tract infection with bacteremia. By history and my physical exam, particularly yesterday's, his urinary tract infection is from a prostatitis. He has a history of benign prostatic hypertrophy. His digital rectal exam showed an exquisitely tender prostate. Blood and urine cultures have grown out a gram- negative yeyo identified as E. coli from his urine only at this time. He has improved nicely with IV antibiotics. However, his serum creatinine remains elevated at 1.9 over his recent baseline of about 1.3 to 1.4 mg/Sandy. Some of that is likely purely prerenal. His baseline serum creatinine is higher than it was months ago likely because of the addition of losartan after he was identi fied as having significant proteinuria with biopsy evidence of focal segmental glomerulosclerosis. Nonetheless, I would assume that with continued IV hydration his serum creatinine will return to his recent baseline. I would recommend that we continue with his current antibiotics and IV fluids. Continue to monitor his renal function. Once we see a decline in his serum creatinine and if he remains afebrile he can be transitioned to oral antibiotics. Allergic to penicillin either a cephalosporin or fluoroquinolone would be appropriate. Also, when we are sure that he is well controlled we can return his mycophenolate mofetil dose to 1 g twice daily. He can continue with all of his other chronic medications. Admission and Anticipated Discharge Date Admission Date: January 28, 2020 Subjective Mr. Prado says that he is feeling significantly better this morning. He has had no shaking chills and has not had any sweats. He did, however, have a headache last night. He said that it was not relieved with Tylenol. It feels better this morning. He had no other associated symptoms. He still has some urinary frequency and is voiding only small amounts of urine each time. He says that he has a funny sensation in his penis and groin when he voids but does not have any shelby dysuria. He has no other symptoms including no symptoms of uremia or volume overload and no symptoms of rejection. He has no pain or tenderness over his transplanted kidney. Physical Exam Physical Exam: On physical examination, Mr. Prado appears relatively healthy and well. He is obviously overweight. He does not seem to be in any distress this morning. His blood pressure is 124/70 in the right arm supine. His pulse is 83 and regular. Respiratory rate is 18 with an oxygen saturation of 96% on room air. He is afebrile (36.5). Examination of his skin shows normal skin turgor. He has some folliculitis over his chest and back. He has no other specific rash or infiltrative skin disease other than the marked changes of chronic venous stasis dermatitis on his distal lower extremities. These are unchanged from over the course of the past several years. He has scars from prior surgical procedures including a right lower quadrant scar from his kidney transplant, a scar on the back of his left leg from the removal of a malignant melanoma and a scar on his left arm from the creation of an AV fistula with a few dialysis needle track harrell over the fistula. He has no palpable lymphadenopathy. His head is normal. Eyes are grossly normal. The ocular fundi were not examined. Ears, nose, mouth and throat are remarkable. His oral mucous membranes are moist. His neck is supple. I see no jugular venous distention but the exam is limited by his body habitus. I hear no carotid bruit and there is no thyromegaly. His chest is clear to auscultation. He has no wheezes, rales or rhonchi. Cardiac exam shows a regular rhythm. S1 and S2 are normal. He has a soft systolic murmur at the base radiating toward the neck. His abdomen is obese but nontender. He has no organomegaly or mass. Bowel sounds are normal. He has no abdominal bruits. He has a barely palpable transplanted kidney in the right lower quadrant. It is nontender. A digital rectal exam was not repeated. Extremities show no cyanosis or clubbing. He has trace lower extremity edema bilaterally. He has more changes of venous stasis dermatitis bilaterally and the scar on the back of his left calf is previously noted. His neurologic examination shows no lateralizing changes. Results & Data ([facility]) Vital Signs (Past 12 Hours) Vital Signs Temp Pulse Pulse Resp BP Pulse Ox 01/30/20 06:54 36.5 C 83 18 124/70 96 01/30/20 06:36 68 01/30/20 03:00 36.8 C 70 16 131/73 94 01/29/20 23:59 78 01/29/20 22:53 37.8 C H 83 18 129/78 92 Laboratory Results Laboratory Results - last 24 hr 01/30/20 01/30/20 01/30/20 07:25 07:25 07:25 WBC 9.19 RBC 4.31 L Hgb 12.6 L Hct 40.5 L MCV 94.0 MCH 29.2 MCHC 31.1 L RDW Std Deviation 48.2 H RDW Coeff of Theresa 13.9 Plt Count 158 MPV 11.3 H PT 21.0 H INR 2.1 H Sodium 137 Potassium 3.4 L Chloride 102 Carbon Dioxide 25 Anion Gap 9.0 BUN 27 H Creatinine 1.90 H Est Cr Clr Drug Dosing 59.4 Est GFR ( Amer) 44.1 Est GFR (Non-Af Amer) 38.0 BUN/Creatinine Ratio 14.3 Glucose 95 Calcium 9.5 D His urine culture has grown out an E. coli with pansensitivity. Blood cultures are positive for gram-negative yeyo which has yet to be specifically identified but is likely E. coli as well. PG Care Time/CCT Total # of Minutes Spent Total Time Spent with Patient: Total time spent is greater than 50% in coordination of care (as documented) at patient's floor/unit and/or counseling patient: 30 Coding Level of Care Code 57441 Subseq Hosp Care Lvl 3 Diagnoses Acute prostatitis N41.0 Renal transplant recipient Z94.0 Renal insufficiency N28.9
[2020-01-30] MEDS ORDERED: ACETAMINOPHEN 500 MG TAB PO STA (14:57)
[2020-01-30] MEDS ORDERED: CYCLOBENZAPRINE HCL 5 MG TAB PO STA (14:57)
[2020-01-30] MEDS: WARFARIN SOD 10 MG TAB PO SCH (15:43)
[2020-01-30] MEDS ORDERED: CYCLOBENZAPRINE HCL 5 MG TAB PO PRN (19:24)
[2020-01-30] MEDS ORDERED: ACETAMINOPHEN 500 MG TAB PO PRN (19:24)
--- NOTE | 2020-01-30 19:25 | Hospitalist Progress Note ---
Date of Service January 30, 2020 Assessment & Plan (1) Septicemia: 2nd to pansensitive e.coli (urine cx with such; blood cx's likely to contain same pathogen). source - acute prostatitis/UTI. cont IV cefepime but suspect we can change to PO cipro tomorrow if repeat blood cx's are negative. supportive care. Will need minimum 2 weeks of antibiotics from date of first set of negative blood cx's. Given the prostatitis 4 weeks of Rx may be most prudent, however. (2) Acute prostatitis: VERONICA performed by Dr Pablo. Findings c/w prostatitis. He will need in upwards of 4 weeks of Rx. Cont flomax. (3) Urinary tract infection: 2nd e.coli - pansensitive. see above. (4) Acute kidney injury: baseline Cr about 1.2/1.3 today - 1.9 hopefully Cr is plateauing supportive care appreciate Dr Pablo's consultation BMP am avoid nephrotoxic agents LORENZO is sepsis-associated Hold lasix and ARB until Cr starts to improve (5) Acute metabolic encephalopathy: 2nd septicemia - resolved (6) DVT (deep venous thrombosis): h/o DVT following surgery for melanoma removal in his left leg years ago. Daily INR. Cont warfarin. Watch for lability given concomitant antibiotic usage. INR today acceptable. (7) Hypertension: Cont amlodipine 5mg BID. Hold ARB in light of LORENZO. Hold lasix in light of LORENZO. (8) Depression: continue duloxetine (9) GERD (gastroesophageal reflux disease): continue ppi (10) BPH (benign prostatic hyperplasia): cont flomax see above in acute prostatitis (11) Chronic venous stasis: no evidence of superimposed cellulitis. hold lasix due to LORENZO. wound care saw patient in consult - recommending compression - patient would like to defer. (12) Renal transplant recipient: appreciate Dr Pablo's consultation. cont cyclosporine 250mg BID. cont mycophenolate albeit at reduced dose of 500mg BID. cont prednisone 5mg daily. Defer on stress doses for now. The care team spoke with his transplant team in [place] at time of admission. Will reach out to Dr Mei in [place] tomorrow and will provide update. (13) Headache: tension tylenol and flexeril low-dose now not a candidate for NSAIDs (14) DVT prophylaxis: Coumadin daily INR PT, OT consults updated at bedside yesterday home tomorrow?? (if renal function improved) Admission and Anticipated Discharge Date Admission Date: January 28, 2020 Subjective patient feeling good except for a new headache. headache is all over the scalp, tight in nature, spreads front frontal area to occiput. does not get headaches typically. he is eating 100% of meals. no fever. good energy. ambulating. no dyspnea. voiding ok. tele overnight wnl. Review of Systems Constitutional: no fever, no chills, no fatigue and no anorexia Respiratory: no cough and no dyspnea Cardiovascular: no chest pain Gastrointestinal: no abdominal pain Physical Exam Constitutional: well developed, well nourished and + morbidly obese; no acute distress and no altered mental status ENMT: external ear and nose normal, oropharynx normal Respiratory: normal respiratory effort, lungs clear to auscultation Cardiovascular: Rate/Rhythm: regular rate and regular rhythm Heart Sounds: normal S1 and normal S2; no murmur Vessels: posterior tibial pulses present and dorsalis pedis pulses present; no JVD Extremities: + edema (trace b/l ) Gastrointestinal (Abdomen): normal bowel sounds, soft, nontender, no hepatosplenomegaly Inspection/Auscultation: + abdominal surgical scar (RLQ ) I believe I can palpate his renal transplant in RLQ of abdomen and it is nontender Musculoskeletal: tender to palpation over most of scalp Skin: stasis changes b/l legs with hyperpigmentation Psychiatric: A+Ox3, euthymic affect Results & Data Results & Data ([facility]) Vital Signs (Past 12 Hours) Vital Signs Temp Pulse Pulse Resp BP Pulse Ox 01/30/20 16:00 76 01/30/20 15:33 36.8 C 72 18 126/76 99 01/30/20 11:16 36.9 C 75 18 125/72 98 Laboratory Results Laboratory Results - last 24 hr 01/30/20 01/30/20 01/30/20 07:25 07:25 07:25 WBC 9.19 RBC 4.31 L Hgb 12.6 L Hct 40.5 L MCV 94.0 MCH 29.2 MCHC 31.1 L RDW Std Deviation 48.2 H RDW Coeff of Theresa 13.9 Plt Count 158 MPV 11.3 H PT 21.0 H INR 2.1 H Sodium 137 Potassium 3.4 L Chloride 102 Carbon Dioxide 25 Anion Gap 9.0 BUN 27 H Creatinine 1.90 H Est Cr Clr Drug Dosing 59.4 Est GFR ( Amer) 44.1 Est GFR (Non-Af Amer) 38.0 BUN/Creatinine Ratio 14.3 Glucose 95 Calcium 9.5 D urine cx - pansensitive e. coli blood cx's from admission - 07/04 sets + GNR, ID pending repeat blood cx's 01/28 negative to date PG Care Time/CCT Total # of Minutes Spent Total Time Spent with Patient: Total time spent is greater than 50% in coordinat ion of care (as documented) at patient's floor/unit and/or counseling patient: Coding Level of Care Code 25079 Subseq Hosp Care Lvl 3 Diagnoses Septicemia A41.9 Acute prostatitis N41.0 Urinary tract infection N30.00 Hematuria presence: without hematuria Urinary tract infection type: acute cystitis Acute kidney injury N17.9 Acute metabolic encephalopathy G93.41 DVT (deep venous thrombosis) I82.409 Affected thrombotic vein of extremity: unspecified vein of extremity Chronicity: unspecified DVT location: lower extremity Laterality: unspecified laterality Hypertension I10 Hypertension type: essential hypertension Depression F32.89 Depression Type: other depression GERD (gastroesophageal reflux disease) K21.9 Esophagitis presence: without esophagitis BPH (benign prostatic hyperplasia) N40.1; R39.11 Lower urinary tract symptom detail: urinary hesitancy Lower urinary tract symptom presence: symptoms present Chronic venous stasis I87.8 Renal transplant recipient Z94.0 Headache G44.201 Headache type: tension-type Headache chronicity pattern: acute headache Intractability: intractable DVT prophylaxis Z29.9 (1) Urinary tract infection Hematuria presence: without hematuria Urinary tract infection type: acute cystitis Qualified Code(s): N30.00 - Acute cystitis without hematuria (2) BPH (benign prostatic hyperplasia) Lower urinary tract symptom detail: urinary hesitancy Lower urinary tract symptom presence: symptoms present Qualified Code(s): N40.1 - Benign prostatic hyperplasia with lower urinary tract symptoms; R39.11 - Hesitancy of micturition (3) DVT (deep venous thrombosis) Affected thrombotic vein of extremity: unspecified vein of extremity Chronicity: unspecified DVT location: lower extremity Laterality: unspecified laterality Qualified Code(s): I82.409 - Acute embolism and thrombosis of unspecified deep veins of unspecified lower extremity (4) Depression Depression Type: other depression Qualified Code(s): F32.89 - Other specified depressive episodes (5) GERD (gastroesophageal reflux disease) Esophagitis presence: without esophagitis Qualified Code(s): K21.9 - Gastro- esophageal reflux disease without esophagitis (6) Hypertension Hypertension type: essential hypertension Qualified Code(s): I10 - Essential (primary) hypertension (7) Headache Headache type: tension-type Headache chronicity pattern: acute headache Intractability: intractable Qualified Code(s): G44.201 - Tension-type headache, unspecified, intractable
[2020-01-30] MEDS: SIMVASTATIN 40 MG TAB PO SCH (20:35)
[2020-01-30] MEDS: TAMSULOSIN HCL 0.4 MG CAP PO SCH (20:35)
[2020-01-31] MEDS: CEFEPIME 2,000 MG in SYRINGE 7.5 ML IV SCH (05:45)
[2020-01-31 07:20] LABS: INR 2.1 (0.9-1.1); Prothrombin Time 21.3 Seconds (9.0-12.0)
[2020-01-31 07:37] LABS: BUN Creatinine Ratio 15.9 (10-20); Calcium 8.8 mg/dl (8.5-10.1); Creatinine Clr Calc Pharmacy 68.6 ml/min; Est GFR (African American) 52.6; Est GFR (Non-African American) 45.4; Potassium 3.6 mmol/L (3.5-5.1)
[2020-01-31] MEDS: GABAPENTIN 300 MG CAP PO SCH ×2 (08:28→14:03)
[2020-01-31] MEDS: MULTIVITAMIN TAB PO SCH (08:28)
[2020-01-31] MEDS: ASPIRIN 81 MG ECTAB PO SCH (08:28)
[2020-01-31] MEDS: MYCOPHENOLATE MOFETIL 250 MG CAP PO SCH (08:28)
[2020-01-31] MEDS: DULOXETINE HCL 20 MG CAP PO SCH (08:28)
[2020-01-31] MEDS: MAGNESIUM OXIDE 400 MG TAB PO SCH ×2 (08:28→14:03)
[2020-01-31] MEDS: AMLODIPINE BESYLATE 5 MG TAB PO SCH (08:29)
[2020-01-31] MEDS: POT PHOSPHATE MONOBASIC W/ SOD TAB PO SCH ×2 (08:29→14:03)
[2020-01-31] MEDS: predniSONE 5 MG TAB PO SCH (08:30)
[2020-01-31] MEDS: cycloSPORINE (SANDIMMUNE) 25 MG CAP PO SCH ×2 (08:30→08:31)
[2020-01-31] MEDS: PANTOprazole 40 MG TAB PO SCH (08:30)
[2020-01-31] MEDS: CHOLECALCIFEROL 1,000 UNITS 25 MCG TAB PO SCH (08:31)
--- NOTE | 2020-01-31 10:22 | Nephrology Progress Note ---
Date of Service January 31, 2020 Assessment & Plan (1) Acute prostatitis: (2) Renal transplant recipient: (3) Renal insufficiency: Mr. Prado continues to improve. He is virtually asymptomatic except for some mild urinary urgency but less in the way of frequency. He has no dysuria. He has had no chills or sweats. He has remained afebrile. Blood and urine cultures both grew out an E. coli that has xiao sensitivity. His renal function appears to be improving with his serum creatinine falling to 1.64 mg/Sandy. It would appear as if he can be transitioned to oral antibiotics. Given his penicillin allergy, Cipro would be a reasonably good alternative in a dose of 500 mg twice daily. I think he should be maintained on Cipro for a full course of antibiotics of about 1 month. If he is discharged in the next day or 2 I be happy to see him in the office early next week to repeat his laboratory work and make sure he is continuing to do well. He is a trustworthy patient and I am sure he will call should he redevelop any symptoms of fever or worsening lower urinary tract symptoms. His other medications should be continued as usual. We can increase his mycophenolate mofetil back to 1 g twice daily when I see him in follow-up if he is remaining stable. Admission and Anticipated Discharge Date Admission Date: January 28, 2020 Subjective Mr. Prado says that he is doing better this morning. He still has some urinary urgency but the urge is significantly less. He has less in the way of frequency and he has no dysuria. He has not had any chills or sweats. He has no symptoms of uremia or volume overload. He is tolerating his IV antibiotic. He denies having any abdominal pain. He has had no diarrhea. He has no symptoms of uremia or volume overload. He specifically denies any tenderness over his transplanted kidney. Physical Exam Physical Exam: On physical examination, Mr. Prado appears quite comfortable and relatively well. His blood pressure is 126/75 with a pulse of 64 and regular. Respiratory rate is 18 with an oxygen saturation of 95% on room air. He is afebrile (36.7 C). Examination of his skin shows scars from prior surgical procedures including his right lower quadrant scar from his kidney transplant, the left forearm scar from the creation of his AV fistula and the scar on the back of his left calf from the removal of a malignant melanoma. He has marked changes of venous stasis dermatitis on his distal lower extremities. His skin turgor is normal. He has a few scattered ecchymoses. He has no palpable lymphadenopathy. His head is grossly normal. Eyes are grossly normal. He has no conjunctival icterus. The ocular fundi were not examined. Ears, nose, mouth and throat are all unremarkable. His oral mucous membranes are moist. His neck is supple. He has no jugular venous distention but the exam is limited by his body habitus. He has no carotid bruit or thyromegaly. His chest is clear to auscultation. I hear no wheezes, rales or rhonchi. Cardiac exam shows a regular rhythm. S1 and S2 are normal. There is a soft systolic murmur at the base radiating toward the neck. His abdomen is obese. It is nontender. He has no organomegaly or mass but the exam is somewhat limited by his body habitus. His renal transplant is barely palpable in the right lower quadrant. Extremities show marked changes of venous stasis dermatitis. He has trace lower extremity edema and the scars previously noted. His neurologic exam shows no lateralizing changes. Results & Data ([facility]) Vital Signs (Past 12 Hours) Vital Signs Temp Pulse Pulse Resp BP Pulse Ox 01/31/20 07:32 36.7 C 64 18 126/75 95 01/31/20 07:20 63 01/31/20 03:44 36.5 C 60 18 131/77 97 01/30/20 23:59 64 01/30/20 22:58 36.7 C 63 20 124/77 96 Laboratory Results Laboratory Results - last 24 hr 01/31/20 01/31/20 06:49 06:49 PT 21.3 H INR 2.1 H Sodium 139 Potassium 3.6 Chloride 106 Carbon Dioxide 24 Anion Gap 8.0 BUN 26 H Creatinine 1.64 H Est Cr Clr Drug Dosing 68.6 Est GFR ( Amer) 52.6 Est GFR (Non-Af Amer) 45.4 BUN/Creatinine Ratio 15.9 Glucose 94 Calcium 8.8 PG Care Time/CCT Total # of Minutes Spent Total Time Spent with Patient: Total time spent is greater than 50% in coordination of care (as documented) at patient's floor/unit and/or counseling patient: Coding Level of Care Code 87035 Subseq Hosp Care Lvl 3 Diagnoses Acute prostatitis N41.0 Renal transplant recipient Z94.0 Renal insufficiency N28.9
--- NOTE | 2020-01-31 13:38 | Discharge Summary ---
Date of Service date of admission - January 28, 2020 date of discharge - January 31, 2020 Admission HPI Per Admitting Provider 59-year-old male with history of renal transplant who presents with rigors and a temperature of 103.1. He reported associated body aching and joint aching. He denied any ill contacts. No cough or cold symptoms or congestion. No shortness of breath. The patient has had no known coronavirus exposures. He noticed some recent urinary frequency/urgency but no burning. A Lyme titer was negative and a COVID test was negative. Urinalysis showed 3+ protein, 2+ blood, 2+ leukocyte esterase, and white count of 11.11. Principal Diagnosis e.coli septicemia 2nd to UTI/prostatitis Discharge Exam Constitutional well developed, well nourished and + morbidly obese; no acute distress and no altered mental status ENMT external ear and nose normal, oropharynx normal Respiratory normal respiratory effort, lungs clear to auscultation Cardiovascular Rate/Rhythm: regular rate and regular rhythm Heart Sounds: normal S1 and normal S2; no murmur Vessels: posterior tibial pulses present and dorsalis pedis pulses present; no JVD Extremities: + edema (<1+b/l ) Gastrointestinal (Abdomen) normal bowel sounds, soft, nontender, no hepatosplenomegaly Inspection/Auscultation: + abdominal surgical scar (RLQ ) Musculoskeletal left leg is much larger than right leg Skin hyperpigmentation & venous stasis changes b/l legs Psychiatric A+Ox3, euthymic affect Discharge Data Allergies Allergy/AdvReac Type Severity Reaction Status Date / Time allopurinol Allergy Unknown Rash Verified 01/28/20 18:08 Penicillins Allergy Unknown Unknown Verified 01/28/20 18:08 Consultations Nephrology - Alexandro Pablo MD Hospital Course (1) Septicemia: 2nd to pansensitive e.coli as seen on admission blood and urine cultures. source - acute prostatitis/UTI. repeat blood cultures later in his stay were negative ensuring sterility. received broad-spectrum IV antibiotics and transitioned to oral omnicef at discharge. Given the presence of prostatitis 4 weeks of treatment was recommended. Thus, a 4-week course of omnicef 300mg BID was prescribed at discharge. (2) Acute prostatitis: VERONICA performed by Dr Pablo. Findings were c/w prostatitis. He will need in upwards of 4 weeks of Rx. Cont flomax. Omnicef 300mg BID at discharge x 4 weeks. (3) Urinary tract infection: 2nd e.coli - pansensitive. see above. (4) Acute kidney injury: baseline Cr about 1.2/1.3 Cr at discharge 1.6 LORENZO was sepsis-associated Lasix and ARB were held in the midst of the LORENZO. Lasix 40mg daily was resumed at discharge as was losartan. will need repeat BMP within a week to ensure stability. 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 INR 2.1 on day of discharge. Cont warfarin at previous home dosing. Watch for lability given concomitant antibiotic usage. (7) Hypertension: Cont amlodipine 5mg BID. Held ARB and lasix during the stay, resuming both at discharge. (8) Depression: continue duloxetine (9) GERD (gastroesophageal reflux disease): continue ppi (10) BPH (benign prostatic hyperplasia): cont flomax see above in acute prostatitis (11) Chronic venous stasis: no evidence of superimposed cellulitis. (12) Renal transplant recipient: The patient's primary truck mechanic apprentice, Dr Alexandro Pablo, was consulted and provided bunch recommendations while Mr Prado was hospitalized. He was continued on cyclosporine 250mg BID. Mycophenolate was continued albeit at a reduced dose of 500mg BID. He was maintained on his usual prednisone dose of 5mg daily. He did not require stress doses of steroids. The care team spoke with his transplant team in [place] at time of admission and on day of discharge. Dr Meek Mei recommended that the mycophenolate be maintained at a dose of 500mg BID until renal function returns to baseline. Dr Mei will help coordinate a repeat BMP within a week of discharge to ensure stability of kidney function. (13) Headache: tension headache improved with tylenol and flexeril low-dose prn not a candidate for NSAIDs Total Time Total Time Spent Total Time Spent (In Minutes): 45 Total Time Includes: Examination of the Patient, Discharge Planning, Medication Reconciliation and Communication With Other Providers Discharge Plan Discharge Items Patient Disposition: Home - Self-Care Reason For Visit: sepsis, urinary tract infection Discharge Diagnosis: 1. urinary tract infection - resolving 2. prostatitis (infection of prostate gland) - resolving 3. septicemia/bacteremia (infection spread from the urine into the blood) - resolved 4. "acute kidney injury" (creatinine level patricia in the face of your infection) - improving; discharge creatinine 1.6 5. renal transplant Condition on Discharge: Good Activity: As commented below Activity Comment: gradually increase your activities over the next few days Non-emergency contact: Primary Care Provider and [employer] Call non-emergency contact if: you have any medication questions, your symptoms worsen and you have a fever Follow-up/Referrals: Meek Mei MD [Other] (please contact Dr Mei's office in [place] regarding post-discharge labs, coordination of your mycophenalate, and arrange any necessary follow-up with him.) Davion Pablo MD [Primary Care Provider] - (see Dr Pablo within 1 week ) Diet: Heart Healthy Addtl Attending Provider Instructions: You were treated for septicemia/bacteremia (bloodstream infection) due to UTI and prostatitis. You quickly improved with IV antibiotics and your repeat blood cultures later in your stay were negative suggesting you have cleared the infection from the blood. All cultures grew e.coli - a common UTI bacterium. Your creatinine level patricia to a peak of 1.9 and is 1.6 on day of discharge. Your baseline creatinine level is usually about 1.1 to 1.3. You were seen by Dr Pablo during your stay and your transplant physician, Dr Mei, was informed of your hospitalization. Recommendations -- 1. antibiotics -- take cefdinir 300mg twice daily for 28 days. This will treat the blood, urine, and prostate infection. Start this TONIGHT, 01/31/20. 2. consider taking a probiotic supplement. You can buy these [id number] at [facility]. Take them for as long as you are on the cefdinir. This may help prevent diarrhea. 3. LOWER your furosemide to 40mg once daily starting tomorrow AM, 02/01/20. This is recommended by Dr Pablo. We may be able to increase the furosemide next week when we see your blood work for your kidney. 4. OK to resume your losartan. 5. Your INR today is 2.1. The cefdinir interacts with your coumadin. Please contact the coumadin clinic as they likely will want you to have a repeat INR either late this week or early next week to ensure your INR is not rising. 6. OK to take cyclobenzaprine 5mg every 8 hours as needed for tension headache. This medication may make you sleepy. Thus, do not drink alcohol and do not drive while taking this medication. 7. LOWER your mycophenalate to 500mg twice a day until Dr Pablo and Dr Mei say it is ok to resume the higher dose. 8. Please continue to wear a mask and socially distance to prevent acquisition of COVID-19. You are at higher risk than others because of your immunosuppression from prednisone, cyclosporine, etc. Follow-up -- see separate section Return to [facility] if -- * you have fever over 100 degrees * you have severe diarrhea * you have worsening swelling in your legs, shortness of breath, or chest pain * you have difficultly urinating, or your urine output decreases dramatically * any other concerns It was my pleasure to care for you, please stay well! -Dr Triana Pending Studies at Discharge: Yes Studies:: repeat blood cultures but thus far negative Stand-Alone Forms: My [facility], Smoking Cessation Medications and DC Order Prescriptions: New cefdinir 300 mg Capsule 300 mg PO BID 28 Days Qty: 56 RF: 0 cyclobenzaprine 5 mg Tablet 5 mg PO TID PRN (Reason: tension headache) Qty: 5 RF: 0 furosemide [Lasix] 40 mg tablet 40 mg PO DAILY Qty: 30 RF: 2 Continued omeprazole 40 mg capsule,delayed release(DR/EC) 40 mg PO QAM Qty: 90 RF: 3 (DME) CPAP Supplies Misc See Rx Instructions .ROUTE .MEDSUPPLY Qty: 1 RF: 0 aspirin [Adult Low Dose Aspirin] 81 mg tablet,delayed release (DR/EC) 81 mg PO QAM RF: 0 tamsulosin [Flomax] 0.4 mg capsule 0.4 mg PO QPM RF: 0 docusate sodium [Colace] 100 mg capsule 100 mg PO BID PRN (Reason: Constipation) RF: 0 multivitamin [Daily Multi-Vitamin] tablet 1 tab PO QAM RF: 0 cholecalciferol (vitamin D3) 1,000 unit capsule 1,000 units PO DAILY RF: 0 prednisone 5 mg tablet 5 mg PO DAILY RF: 0 D-Louy-Emzbvhr 250 mg tablet 2 tab PO TID RF: 0 magnesium oxide 400 mg magnesium capsule 800 mg PO TID RF: 0 simvastatin 40 mg tablet 40 mg PO QPM Qty: 90 RF: 3 duloxetine 20 mg capsule,delayed release(DR/EC) 20 mg PO QAM Qty: 90 RF: 3 cyclosporine 100 mg capsule 200 mg PO BID RF: 0 amlodipine 5 mg tablet 5 mg PO BID RF: 0 losartan [Cozaar] 50 mg tablet 50 mg PO DAILY RF: 0 cyclosporine 25 mg Capsule 50 mg PO BID RF: 0 gabapentin [Neurontin] 300 mg capsule 900 mg PO HS RF: 0 warfarin [Coumadin] 5 mg tablet 10 mg PO QPM RF: 0 gabapentin [Neurontin] 300 mg capsule 600 mg PO .BID UD RF: 0 Changed mycophenolate mofetil [CellCept] 250 mg capsule 500 mg PO BID Qty: 0 RF: 0 Discharge Orders: Discharge Order (Routine); Ordered 01/31/20 Ordered By: Davion Triana Admission Data Admit Date/Time: 01/28/20 18:38 Attending Provider: Davion Triana Admit Provider: Mark Perez Primary Care Provider: Davion Pablo Other Providers: Davion Pablo Other Interventions: Discharge Summary Assessment (RN) Last Done: 01/31/20 13:55 Coding Level of Care Code D/C Day Management >30 mins Diagnoses Septicemia A41.9 Acute prostatitis N41.0 Urinary tract infection N30.00 Hematuria presence: without hematuria Urinary tract infection type: acute cystitis Acute kidney injury N17.9 Acute metabolic encephalopathy G93.41 DVT (deep venous thrombosis) I82.409 Affected thrombotic vein of extremity: unspecified vein of extremity Chronicity: unspecified DVT location: lower extremity Laterality: unspecified laterality Hypertension I10 Hypertension type: essential hypertension Depression F32.89 Depression Type: other depression GERD (gastroesophageal reflux disease) K21.9 Esophagitis presence: without esophagitis BPH (benign prostatic hyperplasia) N40.1; R39.11 Lower urinary tract symptom detail: urinary hesitancy Lower urinary tract symptom presence: symptoms present Chronic venous stasis I87.8 Renal transplant recipient Z94.0 Headache G44.201 Headache chronicity pattern: acute headache Headache type: tension-type Intractability: intractable
[2020-01-31] MEDS ORDERED: CIPROFLOXACIN 500 MG TAB PO SCH (21:00)
[2020-01-31] MEDS ORDERED: CEFDINIR 300 MG CAP PO SCH (21:00)
== END 2020-01-31 14:44 | disposition home or self-care (01) | DRG 871 ==
LOC: ED 14:57 → 2W 19:25 → SUATTDRO 20:00 → 2W 20:00

== ENCOUNTER 2020-04-05 16:36 | Observation (INO) ==
[2020-04-05 17:29] LABS: Basophils # (auto) 0.02 K/uL (0-0.2); Basophils % (auto) 0.2 %; Eosinophils # (auto) 0.11 K/uL (0-0.5); Eosinophils % (auto) 1.2 %; Hematocrit (blood only) 42.4 % (42-52); Immature Granulocytes # (auto) 0.02 K/uL (0.00-0.02); Immature Granulocytes % (auto) 0.2 %; Lymphocytes # (auto) 0.61 K/uL (1.2-3.4); Lymphocytes % (auto) 6.6 %; Mean Corpuscular Hemoglobin 31.2 pg (25-34); Mean Corpuscular Volume 94.4 fL (80-100); Mean Platelet Volume 10.9 fL (7.4-10.4); Monocytes # (auto) 0.48 K/uL (0.11-0.59); Monocytes % (auto) 5.2 %; Neutrophils # (auto) 7.96 K/uL (1.4-6.5); Neutrophils % (auto) 86.6 %; Platelet Count 221 K/uL (130-400); RDW Coefficient of Variation 14.3 % (11.5-14.5); RDW Standard Deviation 49.1 fL (36.4-46.3); Red Blood Count 4.49 M/uL (4.7-6.1)
[2020-04-05 17:54] LABS: Albumin Globulin Ratio 1.1 (0.9-2); Albumin Level 4.1 gm/dl (3.4-5.0); BUN Creatinine Ratio 15.9 (10-20); Bilirubin,Total 0.7 mg/dl (0.2-1); Calcium 9.7 mg/dl (8.5-10.1); Creatinine Clr Calc Pharmacy 56.6 ml/min; Est GFR (African American) 41.4; Est GFR (Non-African American) 35.7; Globulin 3.9 gm/dl (2.5-4.0); Potassium 4.6 mmol/L (3.5-5.1)
[2020-04-05] MEDS ORDERED: SODIUM CHLORIDE 0.9% 1000ML 2,000 ML IV ONE (18:43)
--- NOTE | 2020-04-05 18:47 | Emergency Department Note ---
Impression & Plan Abdominal pain, Diarrhea, Bowel obstruction, CKD (chronic kidney disease), High serum chloride ED Provider Note NAME: NAN MONTE AGE: 59 SEX: M : 1960 ARRIVES VIA: Walk-In INFORMANT: Patient ED PROVIDER(S): Anibal Cason DO CHIEF COMPLAINT: Nausea vomiting diarrhea HPI: Patient is a 59-year-old male who presents the ER for nausea, vomiting and diarrhea. Everything started this morning when he woke up. He vomited once and has had diarrhea about every 20 to 30 minutes since then. He notes no vomiting since then. He has mild abdominal achiness which is a 1 out of 10. Admits to nausea. Denies any dysuria, urgency or frequency. Does have a history of previous renal transplant and is on Coumadin. Denies any chest pain, shortness of breath, loss of taste or smell. No other upper respiratory symptoms. No other exacerbating or remitting factors. No recent trips or travel. No backpacking or hiking. No drinking from streams. Was recently on antibiotics about a month ago. No history of C. difficile. No blood in stool. ROS: See above HPI for pertinent positives & negatives. A total of 10 systems reviewed and were otherwise negative. PAST MEDICAL HISTORY:See Below PAST SURGICAL HISTORY:See Below FAMILY HISTORY:See Below SOCIAL HISTORY:See Below HOME MEDICATIONS:See Below ALLERGIES:See Below VITALS:See Below PHYSICAL EXAMINATION: GENERAL: Sitting up in bed, alert, well appearing, well nourished, no distress, non-toxic EYE EXAM: normal conjunctiva. OROPHARYNX: no exudate, no erythema, lips, buccal mucosa, and tongue normal and mucous membranes are moist NECK: supple, no nuchal rigidity, no adenopathy, non-tender LUNGS: Clear to auscultation. Normal chest wall mechanics HEART: no murmurs, S1 normal and S2 normal ABDOMEN: abdomen soft, non-tender, normo-active bowel sounds, no masses, no rebound or guarding. BACK: Back is symmetrical on inspection and there is no deformity, no midline tenderness, no CVA tenderness. SKIN: no rashes and no bruising UPPER EXTREMITIES: upper extremities are grossly normal. LOWER EXTREMITIES: Pitting edema in bilateral lower extremities NEURO EXAM: Normal sensorium, cranial nerves II-XII grossly intact, normal speech, no gross weakness of arms, no gross weakness of legs. MEDICAL DECISION MAKING: Patient is a 59-year-old male who presents the ER for mild abdominal pain associate with vomiting and diarrhea. History of a previous kidney transplant. IV was established blood work was obtained. Labs show no significant leukocytosis or anemia. INR was therapeutic at 2.1. BMP with slightly elevated chloride. Creatinine was consistent with previous of 2. LFTs bilirubin and lipase was unremarkable. C. difficile was negative. Patient was given IV fluids. CT abdomen pelvis questioned a partial obstruction although I favor this is unlikely with his known renal transplant I did err on the side of caution discussed with the hospitalist for further evaluation as he is a renal transplant with persistent diarrhea and a questionable partial bowel obstruction on CT. Triage Nursing notes reviewed. Prior medical records reviewed Vital Signs: reviewed and remarkable for no significant abnormalities Differential diagnosis: Differential diagnoses includes but is not limited to gastritis, peptic ulcer disease, GERD, gallbladder disease, pancreatitis, small bowel obstruction, acute coronary syndrome, pericarditis, ischemic bowel, irritable bowel disease, irritable bowel syndrome, appendicitis, diverticulitis, malignancy, hernia, urinary tract infection, torsion, perforation, trauma, infectious. ER treatment provided: See below Diagnostics interpreted by me: ECG: none Cardiac Monitoring: An order was placed for continuous cardiac monitoring. The monitor shows a rate of 82 with sinus rhythm. Laboratory studies: As stated above and show below. Imaging studies: CT abdomen pelvis shows questionable small bowel obstruction Consultation(s): Discussed with Dr. Yovani Howell for further evaluation ED COURSE: Procedures: none Critical Care: None Past Med/Surg History Medical History (Updated 04/05/20 @ 22:55 by Benjie Johnson DO) Chronic kidney disease Deep vein blood clot of left lower extremity S/P LEFT LEG SURGERY (EXCISION OF MELANOMA LEFT LEG) 10 YEARS AGO. DVT (deep venous thrombosis) right 04/2019 End stage renal disease Family history of blood clots Gout Hyperlipidemia Hyperlipidemia Hypertension Sarcoidosis Sleep apnea CPAP Surgical History (Updated 03/06/20 @ 10:36 by Dixie Storey RN) H/O colonoscopy History of melanoma excision History of tonsillectomy History of tooth extraction Kidney transplanted Family History (Updated 03/06/20 @ 10:37 by Dixie Storey RN) Mother Stroke Heart disease Grandmother Cancer Other Lung disease Social History (Updated 03/06/20 @ 10:01 by Dixie Storey RN) Smoking Status: Never smoker Second Hand Exposure: No; Hx Alcohol Use: No Hx Substance Use: No Preferred Language: Niuean Communication Ability: Effective Market B[employer] Maker Required: No Beliefs That Will Affect Care: None marital status: Current Living Situation: Spouse and Family Current Living Situation Comment: sister and son as well current occupational status: employed current occupation: [employer] How many Children do You have: 1 Feels Safe at Home: Yes Assistive Devices: Glasses Allergies Allergies Allergy/AdvReac Type Severity Reaction Status Date / Time allopurinol Allergy Unknown Rash Verified 04/05/20 20:59 Penicillins Allergy Unknown Unknown Verified 04/05/20 20:59 Home Meds Home Medications Medication Instructions Recorded Confirmed aspirin 81 mg tablet,delayed 81 mg PO QAM 04/24/19 04/05/20 release cholecalciferol (vitamin D3) 25 1,000 units PO QAM 04/24/19 04/05/20 mcg (1,000 unit) capsule docusate sodium 100 mg capsule 100 mg PO BID PRN 04/24/19 04/05/20 multivitamin 1 tab PO QAM 04/24/19 04/05/20 tamsulosin 0.4 mg capsule 0.4 mg PO HS 04/24/19 04/05/20 prednisone 5 mg tablet 5 mg PO QAM tab 05/29/19 04/05/20 sodium di- and 2 tab PO TID tab 05/29/19 04/05/20 monophosphate-potassium phos monobasic 250 mg tablet magnesium oxide 800 mg PO TID cap 01/11/20 04/05/20 gabapentin [Neurontin] 600 mg PO .BID UD 01/28/20 04/05/20 gabapentin [Neurontin] 900 mg PO HS 01/28/20 04/05/20 losartan [Cozaar] 50 mg PO QAM 01/28/20 04/05/20 mycophenolate mofetil 250 mg 1,000 mg PO BID cap 02/20/20 04/05/20 capsule amlodipine 5 mg tablet 5 mg PO HS tab 03/04/20 04/05/20 febuxostat 80 mg tablet 80 mg PO QAM 03/06/20 04/05/20 furosemide 40 mg tablet 60 mg PO QAM tab 03/06/20 04/05/20 cyclosporine 100 mg capsule 200 mg PO BID cap 03/19/20 04/05/20 simvastatin 40 mg PO HS 04/05/20 04/05/20 warfarin 7.5 mg PO .SOLA@QDD 04/05/20 04/05/20 warfarin 10 mg PO .[id number]@QDD 04/05/20 04/05/20 Previous Rx's Medication Instructions Recorded omeprazole 40 mg capsule,delayed 40 mg PO QAM #90 cap 03/29/19 release duloxetine 20 mg capsule,delayed 20 mg PO QAM #90 cap 05/29/19 release miscellaneous medical supply #1 ea 10/04/19 Results & Data (ED) Vital Signs Vital Signs - 24 hr 04/05/20 16:55 04/05/20 18:59 04/05/20 20:02 Temperature 36.6 C Temperature Source Oral Pulse Rate 86 Pulse Rate [Left Finger] 72 70 Pulse Rhythm [Left Finger] Regular Pulse Strength [Left Finger] Normal Respiratory Rate 20 16 20 Respiratory Effort / Characteristics Non-Labored Spontaneous Non-Labored Spontaneous Respiratory Depth Normal Normal Respiratory Pattern Regular Blood Pressure 130/79 Blood Pressure [Right Arm] 127/68 142/78 H Blood Pressure Mean 96 Blood Pressure Mean [Right Arm] 87 99 Blood Pressure Position [Right Arm] Sitting Sitting Pulse Oximetry 98 99 97 Oxygen Delivery Method Room Air Room Air Room Air Sepsis Recent Fever Within 48 Hours No Sepsis New/Unexplained Change in Mental Status No Sepsis Action Taken by Nursing No Action Required Laboratory Data Result diagrams: 04/05/20 17:15 04/05/20 17:15 Lab Results 04/05/20 04/05/20 04/05/20 Range/Units 17:15 17:15 18:54 WBC 9.20 (4.8-10.8) K/uL RBC 4.49 L (4.7-6.1) M/uL Hgb 14.0 (14.0-18.0) g/dL Hct 42.4 (42-52) % MCV 94.4 (80-100) fL MCH 31.2 (25-34) pg MCHC 33.0 (32-36) g/dL RDW Std Deviation 49.1 H (36.4-46.3) fL RDW Coeff of Theresa 14.3 (11.5-14.5) % Plt Count 221 (130-400) K/uL MPV 10.9 H (7.4-10.4) fL Immature Gran % (Auto) 0.2 % Neut % (Auto) 86.6 % Lymph % (Auto) 6.6 % [place] % (Auto) 5.2 % Eos % (Auto) 1.2 % Baso % (Auto) 0.2 % Neut # (Auto) 7.96 H (1.4-6.5) K/uL Lymph # (Auto) 0.61 L (1.2-3.4) K/uL [place] # (Auto) 0.48 (0.11-0.59) K/uL Eos # (Auto) 0.11 (0-0.5) K/uL Baso # (Auto) 0.02 (0-0.2) K/uL Immature Gran # (Auto) 0.02 (0.00-0.02) K/uL PT (9.0-12.0) Seconds INR (0.9-1.1) Sodium 140 (136-145) mmol/L Potassium 4.6 (3.5-5.1) mmol/L Chloride 108 H (98-107) mmol/L Carbon Dioxide 27 (21-32) mmol/L Anion Gap 5.0 (3-11) BUN 32 H (7-18) mg/dl Creatinine 2.00 H (0.6-1.4) mg/dl Est Cr Clr Drug Dosing 56.6 ml/min Est GFR ( Amer) 41.4 Est GFR (Non-Af Amer) 35.7 BUN/Creatinine Ratio 15.9 (10-20) Glucose 106 H (70-99) mg/dl Calcium 9.7 (8.5-10.1) mg/dl Total Bilirubin 0.7 (0.2-1) mg/dl AST 30 (15-37) U/L ALT 36 (12-78) U/L Alkaline Phosphatase 118 H (45-117) U/L Total Protein 8.0 (6.4-8.2) gm/dl Albumin 4.1 (3.4-5.0) gm/dl Globulin 3.9 (2.5-4.0) gm/dl Albumin/Globulin Ratio 1.1 (0.9-2) Lipase 276 (73-393) U/L Specimen Hemolysis Stl C. diff Tox B Gene Negative Cdiff Gene (Neg) 04/05/20 Range/Units 20:26 WBC (4.8-10.8) K/uL RBC (4.7-6.1) M/uL Hgb (14.0-18.0) g/dL Hct (42-52) % MCV (80-100) fL MCH (25-34) pg MCHC (32-36) g/dL RDW Std Deviation (36.4-46.3) fL RDW Coeff of Theresa (11.5-14.5) % Plt Count (130-400) K/uL MPV (7.4-10.4) fL Immature Gran % (Auto) % Neut % (Auto) % Lymph % (Auto) % [place] % (Auto) % Eos % (Auto) % Baso % (Auto) % Neut # (Auto) (1.4-6.5) K/uL Lymph # (Auto) (1.2-3.4) K/uL [place] # (Auto) (0.11-0.59) K/uL Eos # (Auto) (0-0.5) K/uL Baso # (Auto) (0-0.2) K/uL Immature Gran # (Auto) (0.00-0.02) K/uL PT 21.0 H (9.0-12.0) Seconds INR 2.1 H (0.9-1.1) Sodium (136-145) mmol/L Potassium (3.5-5.1) mmol/L Chloride (98-107) mmol/L Carbon Dioxide (21-32) mmol/L Anion Gap (3-11) BUN (7-18) mg/dl Creatinine (0.6-1.4) mg/dl Est Cr Clr Drug Dosing ml/min Est GFR ( Amer) Est GFR (Non-Af Amer) BUN/Creatinine Ratio (10-20) Glucose (70-99) mg/dl Calcium (8.5-10.1) mg/dl Total Bilirubin (0.2-1) mg/dl AST (15-37) U/L ALT (12-78) U/L Alkaline Phosphatase (45-117) U/L Total Protein (6.4-8.2) gm/dl Albumin (3.4-5.0) gm/dl Globulin (2.5-4.0) gm/dl Albumin/Globulin Ratio (0.9-2) Lipase (73-393) U/L Specimen Hemolysis Stl C. diff Tox B Gene (Neg) Administered Medications Discontinued Medications Sodium Chloride (Nss 1000ml) 2,000 mls @ 999 mls/hr IV .Q2H1M ONE Stop: 04/05/20 20:43 Last Infusion: 04/05/20 23:01 Dose: 0 mls/hr Documented by: [id number] Admin: 04/05/20 19:03 Dose: 999 mls/hr Documented by: [id number] Discharge Plan Visit Data Chief Complaint: Vomiting Stated Complaint: vomiting, diarrhea, abd pain ED Provider: Anibal Cason Discharge Problem: Abdominal pain, Diarrhea, Bowel obstruction, CKD (chronic kidney disease), High serum chloride Forms Stand Alone Forms: [facility] Prescriptions Prescriptions: No Action omeprazole 40 mg capsule,delayed release(DR/EC) 40 mg PO QAM Qty: 90 RF: 3 (DME) CPAP Supplies Misc See Rx Instructions .ROUTE .MEDSUPPLY Qty: 1 RF: 0 mycophenolate mofetil [CellCept] 250 mg capsule 1,000 mg PO BID RF: 0 febuxostat [Uloric] 80 mg tablet 80 mg PO QAM RF: 0 furosemide [Lasix] 40 mg tablet 60 mg PO QAM RF: 0 aspirin [Adult Low Dose Aspirin] 81 mg tablet,delayed release (DR/EC) 81 mg PO QAM RF: 0 tamsulosin [Flomax] 0.4 mg capsule 0.4 mg PO HS RF: 0 docusate sodium [Colace] 100 mg capsule 100 mg PO BID PRN (Reason: Constipation) RF: 0 multivitamin [Daily Multi-Vitamin] tablet 1 tab PO QAM RF: 0 cholecalciferol (vitamin D3) 1,000 unit capsule 1,000 units PO QAM RF: 0 prednisone 5 mg tablet 5 mg PO QAM RF: 0 [id number]-[id number] 250 mg tablet 2 tab PO TID RF: 0 magnesium oxide 400 mg magnesium capsule 800 mg PO TID RF: 0 duloxetine 20 mg capsule,delayed release(DR/EC) 20 mg PO QAM Qty: 90 RF: 3 cyclosporine 100 mg capsule 200 mg PO BID RF: 0 amlodipine 5 mg tablet 5 mg PO HS RF: 0 losartan [Cozaar] 50 mg tablet 50 mg PO QAM RF: 0 gabapentin [Neurontin] 300 mg capsule 900 mg PO HS RF: 0 gabapentin [Neurontin] 300 mg capsule 600 mg PO .BID UD RF: 0 warfarin 5 mg tablet 10 mg PO .[id number]@QDD RF: 0 warfarin 5 mg tablet 7.5 mg PO .MOTH@QDD RF: 0 simvastatin 40 mg tablet 40 mg PO HS RF: 0
--- NOTE | 2020-04-05 20:26 | CT Scan Report ---
CT OF THE ABDOMEN AND PELVIS WITHOUT CONTRAST CLINICAL HISTORY: mid abd pain w/ v/d COMPARISON STUDY: CT of the abdomen and pelvis December 27, 2018. Umbilical ultrasound March 04, 2020. TECHNIQUE: Axial images of the abdomen and pelvis were obtained without IV contrast. Images were revi ewed in the axial, sagittal, and coronal planes. Automated exposure control was utilized for the jerome dy. A dose lowering technique was utilized adhering to the principles of ALARA. FINDINGS: Imaged portions of the lower lungs demonstrate multiple calcified and noncalcified pulmonar y nodules which are unchanged from earlier exams. There are also calcified mediastinal and left hilar lymph nodes. These findings are benign. No pneumatosis, free air or portal venous gas is present. Ev aluation of the abdomen and pelvis is suboptimal on this unenhanced exam. The liver, spleen, adrenal glands and pancreas are unremarkable. Both [place] kidneys are markedly atrophic. A few left renal les ions are suboptimally assessed on this unenhanced exam but measure water attenuation. These favor cys ts. A right lower quadrant renal allograft is noted. There is no graft hydronephrosis. No perigraft f luid collection is present. There is minimal infiltration within the right renal sinus. Prostate is m ildly enlarged. Note is made of multiple mildly dilated fluid-filled right abdominal small bowel loop s measure up to 3.2 cm in caliber. Possible extensive point within the right anterior abdomen on axia l image [id number] is noted. There is a fat and fluid containing umbilical hernia but this does not cont ain a bowel loop. There is also made of mild wall thickening with mesenteric infiltration of several additional small bowel loops. The appendix is normal. There is no lymphadenopathy. There are no suspi cious osseous lesions. IMPRESSION: 1. Multiple loops of mildly dilated fluid-filled small bowel with possible transition point within th e right anterior abdomen. In addition, wall thickening and mesenteric infiltration associated with ad ditional small bowel loops. These findings may reflect a partial small bowel obstruction or a nonspec ific enteritis. 2. Suboptimal evaluation of the abdomen and pelvis given the lack of IV contrast. 3. Fat and fluid containing umbilical hernia. This hernia does not contain bowel. 4. Right lower quadrant renal allograft in place. No graft hydronephrosis. No perigraft fluid collect ions. ACT 112: Negative or not required by law. Electronically signed by: Tray Owen M.D. 04/05/2020 8:24 PM
[2020-04-05 20:50] LABS: INR 2.1 (0.9-1.1)
--- NOTE | 2020-04-05 23:13 | History & Physical Report ---
Date of Service April 05, 2020 Assessment & Plan (1) Small bowel obstruction: 59-year-old male with past medical history umbilical hernia, renal transplant recipient, BPH, GERD, depression, FARNAZ, hypertension, hyperlipidemia presents with concerns of vomiting and diarrhea found to have concern of small bowel obstruction versus nonspecific enteritis on CT abdomen pelvis. Vomiting/diarrhea Admit to MedSurg Secondary to partial small bowel obstruction versus nonspecific enteritis Abdomen pelvis CT without contrast: Multiple loops of mildly dilated fluid- filled small bowel with possible transition point within the right anterior abdomen. In addition, wall thickening and mesenteric infiltration associated with additional small bowel loops. These findings may reflect a partial small bowel obstruction or a nonspecific enteritis We will make patient n.p.o. Pt opts to hold off on any NGT and monitoring clinical progression. Conservative management IVF with NSS@100 ml/hr x2 L Electrolyte repletion as needed Cautious use of narcotics for pain control Zofran as needed for nausea Appreciate GI consult LORENZO Creatinine 2.0 on admission. Baseline creatinine about 1.21.3 Secondary to dehydration from large volume emesis/diarrhea IVF with NSS as above Daily BMP Renal transplant recipient Continue cyclosporine 250 mg twice daily, prednisone 5 mg. 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 Pablo while patient is admitted for any additional recommendations History of DVT h/o DVT following surgery for melanoma removal in his left leg years ago INR 2.1 on admission continue home warfarin regimen HTN/HLD Continue amlodipine 5 mg twice daily, losartan 50 mg, simvastatin 40 mg Holding furosemide 40 mg secondary to LORENZO as above Depression Continue duloxetine 20 mg GERD Continue omeprazole 40 mg BPH Continue Flomax 0.4 mg FEN/GI: NSS at 100. N.p.o. DVT prophylaxis: Warfarin CODE STATUS: Full code Dispo: MedSurg History of Present Illness Chief Complaint: Vomiting diarrhea Primary Care Provider: Davion Pablo MD 59-year-old male with past medical history umbilical hernia, renal transplant recipient, BPH, GERD, depression, FARNAZ, hypertension, hyperlipidemia presents with concerns of vomiting and diarrhea that started this morning upon waking up. No previous occurrence to this extent before. Patient notes that he had abdo rachid pain that felt like "stomach needed to explode." The last time he had something similar to this was a result of his hernia, felt similar. Patient notes he vomited x1 with resolution, but has noted ongoing diarrhea every 30 minutes roughly. No blood in stool noted. No known exacerbating or relieving factors. Patient notes no recent antibiotic use. Patient was on Omnicef 300 mg twice daily x4 weeks, which ended 1 month ago. No one else with similar complaints, even though they ate at a restaurant last night. Abdominal pain has since resolved. Patient otherwise denies any fevers, chills, sweats, nausea, vomiting, chest pain, shortness of breath, cough, lightheadedness, dizziness, urinary symptoms, no sick contacts or recent travel anywhere. Patient no other acute concerns or complaints. Pertinent labs: Creatinine 2.0, BUN 32. C. difficile negative Abdomen pelvis CT without contrast: Multiple loops of mildly dilated fluid- filled small bowel with possible transition point within the right anterior abdomen. In addition, wall thickening and mesenteric infiltration associated with additional small bowel loops. These findings may reflect a partial small bowel obstruction or a nonspecific enteritis. Fat and fluid containing umbilical hernia. This hernia does not contain bowel. ER course: NSS 2 L Allergies Allergy/AdvReac Type Severity Reaction Status Date / Time allopurinol Allergy Unknown Rash Verified 04/05/20 20:59 Penicillins Allergy Unknown Unknown Verified 04/05/20 20:59 Home Medications Home Medications Medication Instructions Recorded Confirmed Type omeprazole 40 mg capsule,delayed 40 mg PO QAM #90 cap 03/29/19 04/05/20 Rx release aspirin 81 mg tablet,delayed 81 mg PO QAM 04/24/19 04/05/20 History release cholecalciferol (vitamin D3) 25 1,000 units PO QAM 04/24/19 04/05/20 History mcg (1,000 unit) capsule docusate sodium 100 mg capsule 100 mg PO BID PRN 04/24/19 04/05/20 History multivitamin 1 tab PO QAM 04/24/19 04/05/20 History tamsulosin 0.4 mg capsule 0.4 mg PO HS 04/24/19 04/05/20 History duloxetine 20 mg capsule,delayed 20 mg PO QAM #90 cap 05/29/19 04/05/20 Rx release prednisone 5 mg tablet 5 mg PO QAM tab 05/29/19 04/05/20 History sodium di- and 2 tab PO TID tab 05/29/19 04/05/20 History monophosphate-potassium phos monobasic 250 mg tablet miscellaneous medical supply #1 ea 10/04/19 04/05/20 Rx magnesium oxide 800 mg PO TID cap 01/11/20 04/05/20 History gabapentin [Neurontin] 600 mg PO .BID UD 01/28/20 04/05/20 History gabapentin [Neurontin] 900 mg PO HS 01/28/20 04/05/20 History losartan [Cozaar] 50 mg PO QAM 01/28/20 04/05/20 History mycophenolate mofetil 250 mg 1,000 mg PO BID cap 02/20/20 04/05/20 History capsule amlodipine 5 mg tablet 5 mg PO HS tab 03/04/20 04/05/20 History febuxostat 80 mg tablet 80 mg PO QAM 03/06/20 04/05/20 History furosemide 40 mg tablet 60 mg PO QAM tab 03/06/20 04/05/20 History cyclosporine 100 mg capsule 200 mg PO BID cap 03/19/20 04/05/20 History simvastatin 40 mg PO HS 04/05/20 04/05/20 History warfarin 7.5 mg PO .MOTH@QDD 04/05/20 04/05/20 History warfarin 10 mg PO .SUTUWEFRSA@QDD 04/05/20 04/05/20 History Past Med/Surg History Medical History (Updated 04/06/20 @ 13:27 by Bina Harkins DO) Chronic kidney disease Deep vein blood clot of left lower extremity S/P LEFT LEG SURGERY (EXCISION OF MELANOMA LEFT LEG) 10 YEARS AGO. DVT (deep venous thrombosis) right 04/2019 End stage renal disease Family history of blood clots Gastroenteritis Gout Hyperlipidemia Hyperlipidemia Hypertension Sarcoidosis Sleep apnea CPAP Small bowel obstruction Surgical History H/O colonoscopy History of melanoma excision History of tonsillectomy History of tooth extraction Kidney transplanted Family History (Updated 03/06/20 @ 10:37 by Dixie Storey, RN) Mother Stroke Heart disease Grandmother Cancer Other Lung disease Social History (Updated 03/06/20 @ 10:01 by Dixie Storey, RN) Smoking Status: Never smoker Second Hand Exposure: No; Hx Alcohol Use: No Hx Substance Use: No Preferred Language: Guamanian Communication Ability: Effective Inspector Packager Required: No Beliefs That Will Affect Care: None marital status: Current Living Situation: Family Current Living Situation Comment: sister and son as well current occupational status: employed current occupation: [employer] How many Children do You have: 1 Feels Safe at Home: Yes Assistive Devices: Glasses Review of Systems Review of Systems: All systems reviewed & are unremarkable except as noted in HPI & below Physical Exam Constitutional: + obese Eyes: PERRL, conjunctivae normal, anicteric sclerae ENMT: external ear and nose normal, oropharynx normal Respiratory: normal respiratory effort, lungs clear to auscultation Cardiovascular: RRR, no murmur, no edema Gastrointestinal (Abdomen): normal bowel sounds, soft, nontender, no hepatosplenomegaly Inspection/Auscultation: no visible herniation Percussion/Palpation: no guarding Skin: no rashes, warm and dry Psychiatric: A+Ox3, euthymic affect Lymphatic: Pitting edema lower extremity with chronic venous stasis changes Results & Data Results & Data ([facility]) Vital Signs (Past 12 Hours) Vital Signs Temp Pulse Pulse Resp BP BP Pulse Ox 04/05/20 20:02 70 20 142/78 H 97 04/05/20 18:59 72 16 127/68 99 04/05/20 16:55 36.6 C 86 20 130/79 98 Laboratory Results Laboratory Results - last 24 hr 04/05/20 04/05/20 04/05/20 17:15 17:15 18:54 WBC 9.20 RBC 4.49 L Hgb 14.0 Hct 42.4 MCV 94.4 MCH 31.2 MCHC 33.0 RDW Std Deviation 49.1 H RDW Coeff of Theresa 14.3 Plt Count 221 MPV 10.9 H Immature Gran % (Auto) 0.2 Neut % (Auto) 86.6 Lymph % (Auto) 6.6 [place] % (Auto) 5.2 Eos % (Auto) 1.2 Baso % (Auto) 0.2 Neut # (Auto) 7.96 H Lymph # (Auto) 0.61 L [place] # (Auto) 0.48 Eos # (Auto) 0.11 Baso # (Auto) 0.02 Immature Gran # (Auto) 0.02 PT INR Sodium 140 Potassium 4.6 Chloride 108 H Carbon Dioxide 27 Anion Gap 5.0 BUN 32 H Creatinine 2.00 H Est Cr Clr Drug Dosing 56.6 Est GFR ( Amer) 41.4 Est GFR (Non-Af Amer) 35.7 BUN/Creatinine Ratio 15.9 Glucose 106 H Calcium 9.7 Total Bilirubin 0.7 AST 30 ALT 36 Alkaline Phosphatase 118 H Total Protein 8.0 Albumin 4.1 Globulin 3.9 Albumin/Globulin Ratio 1.1 Lipase 276 Specimen Hemolysis Stl C. diff Tox B Gene Negative Cdiff Gene Cyclosporine 04/05/20 04/05/20 20:26 20:26 WBC RBC Hgb Hct MCV MCH MCHC RDW Std Deviation RDW Coeff of Theresa Plt Count MPV Immature Gran % (Auto) Neut % (Auto) Lymph % (Auto) [place] % (Auto) Eos % (Auto) Baso % (Auto) Neut # (Auto) Lymph # (Auto) [place] # (Auto) Eos # (Auto) Baso # (Auto) Immature Gran # (Auto) PT 21.0 H INR 2.1 H Sodium Potassium Chloride Carbon Dioxide Anion Gap BUN Creatinine Est Cr Clr Drug Dosing Est GFR ( Amer) Est GFR (Non-Af Amer) BUN/Creatinine Ratio Glucose Calcium Total Bilirubin AST ALT Alkaline Phosphatase Total Protein Albumin Globulin Albumin/Globulin Ratio Lipase Specimen Hemolysis Stl C. diff Tox B Gene Cyclosporine Pending Supervising Physician Co-Signing Physician Notes Attending addendum: I have physically seen this patient, have supervised the medical residents activities, and agree with the H&P unless as otherwise noted. Assessment and Plan: PSBO/enteritis- Admit to medical surgical floor NPO NSS at 100 mls/hr Zofran 4mg IV q6h prn. famotidine 20mg IV q12h Zosyn 4.5g IV q8h Consult gastroenterology Renal Transplant- Continue cyclosporine and prednisone. May need stress dose steroids, hold due to gi state. Consult stove installer Dr. Pablo. DVT hx- hold warfarin for now follow PT/INR Remaining orders and notations as noted Resident Activity Tracking Resident Involvement: Resident Care Provided Care Provided: Adult [facility]
[2020-04-06] MEDS ORDERED: MoRPHine SULFATE 2 MG/ML CARP IV PRN (00:50)
[2020-04-06] MEDS ORDERED: DOCUSATE SODIUM 100 MG CAP PO PRN (00:50)
[2020-04-06] MEDS ORDERED: ACETAMINOPHEN 325 MG TAB PO PRN (00:50)
[2020-04-06] MEDS ORDERED: ONDANSETRON INJ 2 MG/ML 2 ML VIAL IV PRN (00:50)
[2020-04-06] MEDS: SODIUM CHLORIDE 0.9% 1000ML 1,000 ML IV SCH ×2 (01:17→11:13)
[2020-04-06 06:25] LABS: Appearance Urine Clear (Clear); Bacteria Urine Automated Negative (Negative); Bilirubin Urine Negative (Negative); Blood Urine Negative (Negative); Cast Urine Automated 0 /lpf (0-5); Color Urine Yellow; Glucose Urine UA Negative (Negative); Ketones Urine Negative (Negative); Leukocyte Esterase Urine Negative (Negative); Nitrite Urine Negative (Negative); Protein Urine 2+ (Negative); RBC Urine Automated 0-4 /hpf (0-4); Specific Gravity Urine 1.019 (1.000-1.030); Urobilinogen Urine Negative (Negative)
[2020-04-06 06:36] LABS: Basophils # (auto) 0.01 K/uL (0-0.2); Basophils % (auto) 0.2 %; Eosinophils # (auto) 0.19 K/uL (0-0.5); Eosinophils % (auto) 2.9 %; Hematocrit (blood only) 39.9 % (42-52); Hemoglobin 12.9 g/dL (14.0-18.0); Immature Granulocytes # (auto) 0.01 K/uL (0.00-0.02); Immature Granulocytes % (auto) 0.2 %; Lymphocytes # (auto) 0.59 K/uL (1.2-3.4); Lymphocytes % (auto) 8.9 %; Mean Corpuscular Hemoglobin 30.5 pg (25-34); Mean Corpuscular Hgb Conc 32.3 g/dL (32-36); Mean Corpuscular Volume 94.3 fL (80-100); Monocytes # (auto) 0.27 K/uL (0.11-0.59); Monocytes % (auto) 4.1 %; Neutrophils # (auto) 5.58 K/uL (1.4-6.5); Neutrophils % (auto) 83.7 %; Platelet Count 220 K/uL (130-400); RDW Coefficient of Variation 14.5 % (11.5-14.5); RDW Standard Deviation 49.7 fL (36.4-46.3); Red Blood Count 4.23 M/uL (4.7-6.1); White Blood Count 6.65 K/uL (4.8-10.8)
[2020-04-06 06:43] LABS: INR 1.9 (0.9-1.1); Prothrombin Time 19.5 Seconds (9.0-12.0)
[2020-04-06 07:07] LABS: BUN Creatinine Ratio 16.6 (10-20); Calcium 9.1 mg/dl (8.5-10.1); Creatinine Clr Calc Pharmacy 71.1 ml/min; Est GFR (African American) 54.2; Est GFR (Non-African American) 46.8; Potassium 4.3 mmol/L (3.5-5.1)
[2020-04-06] MEDS: MAGNESIUM OXIDE 400 MG TAB PO SCH ×3 (08:29→21:18)
[2020-04-06] MEDS: PANTOprazole 40 MG TAB PO SCH (08:30)
[2020-04-06] MEDS: FEBUXOSTAT 40 MG TABLET PO SCH (08:30)
[2020-04-06] MEDS: predniSONE 5 MG TAB PO SCH (08:31)
[2020-04-06] MEDS: DULoxetine HCL 20 MG CAP PO SCH (08:31)
[2020-04-06] MEDS: CHOLECALCIFEROL 1,000 UNITS 25 MCG TAB PO SCH (08:31)
[2020-04-06] MEDS: LOSARTAN POTASSIUM 50 MG TAB PO SCH (08:31)
[2020-04-06] MEDS: POT PHOSPHATE MONOBASIC W/ SOD TAB PO SCH ×3 (08:32→21:17)
[2020-04-06] MEDS: ASPIRIN 81 MG ECTAB PO SCH (08:32)
[2020-04-06] MEDS: MULTIVITAMIN TAB PO SCH (08:32)
[2020-04-06] MEDS: cycloSPORINE 100 MG CAP PO SCH ×2 (08:33→21:18)
[2020-04-06] MEDS: GABAPENTIN 300 MG CAP PO SCH ×2 (08:34→14:01)
[2020-04-06] MEDS ORDERED: MYCOPHENOLATE MOFETIL 250 MG CAP PO SCH (09:00)
--- NOTE | 2020-04-06 10:14 | Surgery Consultation ---
Date of Consultation April 06, 2020 Assessment & Plan (1) Gastroenteritis: 59-year-old male with history of renal transplant admitted with what appears to be gastroenteritis. Given his symptoms, physical exam, and CT findings, there is no evidence of bowel obstruction at this time. This is not related to his epigastric hernia No surgical intervention indicated at this time We will start on clear liquids and advance diet as tolerated Disposition per primary team No indication for acute hernia repair, he may follow-up with Dr. Wren for elective repair in the future, however transplant team does not feel he is stable enough for surgery at this time Surgery will sign off, call with questions or concerns (2) Kidney transplant recipient: (3) Obesity: (4) Epigastric hernia: History of Present Illness Attending Physician: Aniya Zafar MD History of Present Illness 59-year-old male with renal transplant admitted for dehydration and diarrhea. Yesterday morning he woke with some abdominal discomfort around 6:00 in the morning. He then proceeded to have multiple episodes of diarrhea and vomiting. He contacted his transplant surgeons and they recommended to go to the emergency department for hydration and evaluation. He had a noncontrasted CT scan last night which showed a possible enteritis versus partial small bowel obstruction. This morning he finally stopped having diarrhea but has been passing flatus. He feels much better denies any abdominal distention. He does have a periumbilical hernia and had a single episode of incarceration containing bowel few weeks ago that was reduced. The CT scan last night did not show any bowel within the hernia. Allergies Allergy/AdvReac Type Severity Reaction Status Date / Time allopurinol Allergy Unknown Rash Verified 04/05/20 20:59 Penicillins Allergy Unknown Unknown Verified 04/05/20 20:59 Home Medications Home Medications Medication Instructions Recorded Confirmed Type omeprazole 40 mg capsule,delayed 40 mg PO QAM #90 cap 03/29/19 04/05/20 Rx release aspirin 81 mg tablet,delayed 81 mg PO QAM 04/24/19 04/05/20 History release cholecalciferol (vitamin D3) 25 1,000 units PO QAM 04/24/19 04/05/20 History mcg (1,000 unit) capsule docusate sodium 100 mg capsule 100 mg PO BID PRN 04/24/19 04/05/20 History multivitamin 1 tab PO QAM 04/24/19 04/05/20 History tamsulosin 0.4 mg capsule 0.4 mg PO HS 04/24/19 04/05/20 History duloxetine 20 mg capsule,delayed 20 mg PO QAM #90 cap 05/29/19 04/05/20 Rx release prednisone 5 mg tablet 5 mg PO QAM tab 05/29/19 04/05/20 History sodium di- and 2 tab PO TID tab 05/29/19 04/05/20 History monophosphate-potassium phos monobasic 250 mg tablet miscellaneous medical supply #1 ea 10/04/19 04/05/20 Rx magnesium oxide 800 mg PO TID cap 01/11/20 04/05/20 History gabapentin [Neurontin] 600 mg PO .BID UD 01/28/20 04/05/20 History gabapentin [Neurontin] 900 mg PO HS 01/28/20 04/05/20 History losartan [Cozaar] 50 mg PO QAM 01/28/20 04/05/20 History mycophenolate mofetil 250 mg 1,000 mg PO BID cap 02/20/20 04/05/20 History capsule amlodipine 5 mg tablet 5 mg PO HS tab 03/04/20 04/05/20 History febuxostat 80 mg tablet 80 mg PO QAM 03/06/20 04/05/20 History furosemide 40 mg tablet 60 mg PO QAM tab 03/06/20 04/05/20 History cyclosporine 100 mg capsule 200 mg PO BID cap 03/19/20 04/05/20 History simvastatin 40 mg PO HS 04/05/20 04/05/20 History warfarin 7.5 mg PO .MOTH@QDD 04/05/20 04/05/20 History warfarin 10 mg PO .SUTUWEFRSA@QDD 04/05/20 04/05/20 History Patient History Medical History (Updated 04/06/20 @ 10:10 by Rahul Bauer DO, FACS) Chronic kidney disease Deep vein blood clot of left lower extremity S/P LEFT LEG SURGERY (EXCISION OF MELANOMA LEFT LEG) 10 YEARS AGO. DVT (deep venous thrombosis) right 04/2019 End stage renal disease Family history of blood clots Gastroenteritis Gout Hyperlipidemia Hyperlipidemia Hypertension Sarcoidosis Sleep apnea CPAP Small bowel obstruction Surgical History H/O colonoscopy History of melanoma excision History of tonsillectomy History of tooth extraction Kidney transplanted Family History (Updated 03/06/20 @ 10:37 by Dixie Storey RN) Mother Stroke Heart disease Grandmother Cancer Other Lung disease Social History (Updated 03/06/20 @ 10:01 by Dixie Storey RN) Smoking Status: Never smoker Second Hand Exposure: No; Do You Dip or Chew Tobacco: No; Hx Alcohol Use: No Hx Substance Use: No Preferred Language: Belgian Communication Ability: Effective Sanitation 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 Cleaning 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 Required: No Beliefs That Will Affect Care: None marital status: Current Living Situation: Family Current Living Situation Comment: sister and son as well current occupational status: employed current occupation: [employer] How many Children do You have: 1 Other Information That Helps Us Care for You: No Feels Safe at Home: Yes Safety Concerns: Feels Safe At This Time Assistive Devices: None Review of Systems Review of Systems: All systems reviewed & are unremarkable except as noted in HPI & below Physical Exam Constitutional: WD/WN, vitals as above + obese Eyes: PERRL, conjunctivae normal, anicteric sclerae ENMT: external ear and nose normal, oropharynx normal Neck: trachea midline, no thyromegaly Respiratory: normal respiratory effort, lungs clear to auscultation Cardiovascular: RRR, no murmur, no edema Gastrointestinal (Abdomen): normal bowel sounds, soft, nontender, no hepatosplenomegaly Musculoskeletal: no cyanosis or clubbing, extremities motor strength 5/5 Skin: no rashes, warm and dry Neurologic: PERRL, EOMI, accommodation nl, no face palsy, no dysarthria Psychiatric: A+Ox3, euthymic affect Lymphatic: no cervical or axillary lymphadenopathy Results & Data ([facility]) Vital Signs (Past 12 Hours) Vital Signs Temp Pulse Pulse Resp BP BP Pulse Ox 04/06/20 07:28 36.5 C 56 L 15 144/87 H 97 04/06/20 00:35 36.5 C 66 16 161/81 H 98 04/06/20 00:09 68 18 129/70 98 04/05/20 23:10 65 18 130/79 97 Laboratory Results Laboratory Results - last 24 hr 04/05/20 04/05/20 04/05/20 17:15 17:15 18:54 WBC 9.20 RBC 4.49 L Hgb 14.0 Hct 42.4 MCV 94.4 MCH 31.2 MCHC 33.0 RDW Std Deviation 49.1 H RDW Coeff of Theresa 14.3 Plt Count 221 MPV 10.9 H Immature Gran % (Auto) 0.2 Neut % (Auto) 86.6 Lymph % (Auto) 6.6 [place] % (Auto) 5.2 Eos % (Auto) 1.2 Baso % (Auto) 0.2 Neut # (Auto) 7.96 H Lymph # (Auto) 0.61 L [place] # (Auto) 0.48 Eos # (Auto) 0.11 Baso # (Auto) 0.02 Immature Gran # (Auto) 0.02 PT INR Sodium 140 Potassium 4.6 Chloride 108 H Carbon Dioxide 27 Anion Gap 5.0 BUN 32 H Creatinine 2.00 H Est Cr Clr Drug Dosing 56.6 Est GFR ( Amer) 41.4 Est GFR (Non-Af Amer) 35.7 BUN/Creatinine Ratio 15.9 Glucose 106 H Calcium 9.7 Total Bilirubin 0.7 AST 30 ALT 36 Alkaline Phosphatase 118 H Total Protein 8.0 Albumin 4.1 Globulin 3.9 Albumin/Globulin Ratio 1.1 Lipase 276 Specimen Hemolysis Urine Color Urine Appearance Urine pH Ur Specific [place] Urine Protein Urine Glucose (UA) Urine Ketones Urine Blood Urine Nitrite Urine Bilirubin Urine Urobilinogen Ur Leukocyte Esterase Urine WBC (Auto) Urine RBC (Auto) U Hyaline Cast (Auto) U Epithel Cells (Auto) Urine Bacteria (Auto) Stl C. diff Tox B Gene Negative Cdiff Gene Cyclosporine 04/05/20 04/05/20 04/06/20 20:26 20:26 05:27 WBC RBC Hgb Hct MCV MCH MCHC RDW Std Deviation RDW Coeff of Theresa Plt Count MPV Immature Gran % (Auto) Neut % (Auto) Lymph % (Auto) [place] % (Auto) Eos % (Auto) Baso % (Auto) Neut # (Auto) Lymph # (Auto) [place] # (Auto) Eos # (Auto) Baso # (Auto) Immature Gran # (Auto) PT 21.0 H INR 2.1 H Sodium Potassium Chloride Carbon Dioxide Anion Gap BUN Creatinine Est Cr Clr Drug Dosing Est GFR ( Amer) Est GFR (Non-Af Amer) BUN/Creatinine Ratio Glucose Calcium Total Bilirubin AST ALT Alkaline Phosphatase Total Protein Albumin Globulin Albumin/Globulin Ratio Lipase Specimen Hemolysis Urine Color Yellow Urine Appearance Clear Urine pH 7.0 Ur Specific [place] 1.019 Urine Protein 2+ H Urine Glucose (UA) Negative Urine Ketones Negative Urine Blood Negative Urine Nitrite Negative Urine Bilirubin Negative Urine Urobilinogen Negative Ur Leukocyte Esterase Negative Urine WBC (Auto) 1-5 Urine RBC (Auto) 0-4 U Hyaline Cast (Auto) 0 U Epithel Cells (Auto) 5-10 H Urine Bacteria (Auto) Negative Stl C. diff Tox B Gene Cyclosporine Pending 04/06/20 04/06/20 04/06/20 06:14 06:14 06:14 WBC 6.65 RBC 4.23 L Hgb 12.9 L Hct 39.9 L MCV 94.3 MCH 30.5 MCHC 32.3 RDW Std Deviation 49.7 H RDW Coeff of Theresa 14.5 Plt Count 220 MPV 11.0 H Immature Gran % (Auto) 0.2 Neut % (Auto) 83.7 Lymph % (Auto) 8.9 [place] % (Auto) 4.1 Eos % (Auto) 2.9 Baso % (Auto) 0.2 Neut # (Auto) 5.58 Lymph # (Auto) 0.59 L [place] # (Auto) 0.27 Eos # (Auto) 0.19 Baso # (Auto) 0.01 Immature Gran # (Auto) 0.01 PT 19.5 H INR 1.9 H Sodium 142 Potassium 4.3 Chloride 114 H Carbon Dioxide 25 Anion Gap 3.0 BUN 27 H Creatinine 1.60 H D Est Cr Clr Drug Dosing 71.1 Est GFR ( Amer) 54.2 Est GFR (Non-Af Amer) 46.8 BUN/Creatinine Ratio 16.6 Glucose 90 Calcium 9.1 Total Bilirubin AST ALT Alkaline Phosphatase Total Protein Albumin Globulin Albumin/Globulin Ratio Lipase Specimen Hemolysis Urine Color Urine Appearance Urine pH Ur Specific [place] Urine Protein Urine Glucose (UA) Urine Ketones Urine Blood Urine Nitrite Urine Bilirubin Urine Urobilinogen Ur Leukocyte Esterase Urine WBC (Auto) Urine RBC (Auto) U Hyaline Cast (Auto) U Epithel Cells (Auto) Urine Bacteria (Auto) Stl C. diff Tox B Gene Cyclosporine Diagnostic Findings CT OF THE ABDOMEN AND PELVIS WITHOUT CONTRAST CLINICAL HISTORY: mid abd pain w/ v/d COMPARISON STUDY: CT of the abdomen and pelvis December 27, 2018. Umbilical ultrasound March 04, 2020. TECHNIQUE: Axial images of the abdomen and pelvis were obtained without IV cont rast. Images were reviewed in the axial, sagittal, and coronal planes. Automated exposure control was utilized for the study. A dose lowering technique was utilized adhering to the principles of ALARA. FINDINGS: Imaged portions of the lower lungs demonstrate multiple calcified and noncalcified pulmonary nodules which are unchanged from earlier exams. There are also calcified mediastinal and left hilar lymph nodes. These findings are benign. No pneumatosis, free air or portal venous gas is present. Evaluation of the abdomen and pelvis is suboptimal on this unenhanced exam. The liver, spleen, adrenal glands and pancreas are unremarkable. Both sun'aq kidneys are markedly atrophic. A few left renal lesions are suboptimally assessed on this unenhanced exam but measure water attenuation. These favor cysts. A right lower quadrant renal allograft is noted. There is no graft hydronephrosis. No perigraft fluid collection is present. There is minimal infiltration within the right renal sinus. Prostate is mildly enlarged. Note is made of multiple mildly dilated fluid-filled right abdominal small bowel loops measure up to 3.2 cm in caliber. Possible extensive point within the right anterior abdomen on axial image [id number] is noted. There is a fat and fluid containing umbilical hernia but this does not contain a bowel loop. There is also made of mild wall thickening with mesenteric infiltration of several additional small bowel loops. The appendix is normal. There is no lymphadenopathy. There are no suspicious osseous lesions. IMPRESSION: 1. Multiple loops of mildly dilated fluid-filled small bowel with possible transition point within the right anterior abdomen. In addition, wall thickening and mesenteric infiltration associated with additional small bowel loops. These findings may reflect a partial small bowel obstruction or a nonspecific enteritis. 2. Suboptimal evaluation of the abdomen and pelvis given the lack of IV contrast. 3. Fat and fluid containing umbilical hernia. This hernia does not contain bowel. 4. Right lower quadrant renal allograft in place. No graft hydronephrosis. No perigraft fluid collections. PG Care Time/CCT Total # of Minutes Spent Total Time Spent with Patient: Total time spent is greater than 50% in coordination of care (as documented) at patient's floor/unit and/or counseling patient: Coding Level of Care Code 55221 Initial Inpt Care Lvl 2 Diagnoses Gastroenteritis K52.9 Kidney transplant recipient Z94.0 Obesity E66.9 Epigastric hernia K43.9
--- NOTE | 2020-04-06 13:28 | Gastrointestinal Consultation ---
Date of Consultation April 06, 2020 Assessment & Plan (1) Small bowel obstruction: Patient with history of renal transplantation admitted with a suspected small bowel obstruction. Of note he does seem to be feeling improved today and is now having solid bowel movements. At the present time there is no obvious role of endoscopic intervention. The patient would benefit from surgical evaluation for adhesions given his prior surgical history and recurrent symptoms. Recommendations Continue with conservative management with IV hydration Appreciate surgical input, no obvious role for endoscopic intervention at the present time Consider screening for C. difficile infection and stool cultures Please call with any questions or concerns, GI to sign off History of Present Illness Reason for Consultation: Small bowel obstruction Attending Physician: Aniya Zafar MD History of Present Illness The patient is a 59-year-old male who presented to the emergency room yesterday for evaluation of abdominal discomfort and nausea. The patient reports that he has had several episodes over the past 4 to 6 weeks. Imaging revealed evidence of a partial small bowel obstruction. Of note the patient had a prior kidney transplantation approximately 1 year ago. He reports that he did have a prior colonoscopy. He reports that he did have liquid stools yesterday and is now having solid bowel movements today. Allergies Allergy/AdvReac Type Severity Reaction Status Date / Time allopurinol Allergy Unknown Rash Verified 04/05/20 20:59 Penicillins Allergy Unknown Unknown Verified 04/05/20 20:59 Home Medications Home Medications Medication Instructions Recorded Confirmed Type omeprazole 40 mg capsule,delayed 40 mg PO QAM #90 cap 03/29/19 04/05/20 Rx release aspirin 81 mg tablet,delayed 81 mg PO QAM 04/24/19 04/05/20 History release cholecalciferol (vitamin D3) 25 1,000 units PO QAM 04/24/19 04/05/20 History mcg (1,000 unit) capsule docusate sodium 100 mg capsule 100 mg PO BID PRN 04/24/19 04/05/20 History multivitamin 1 tab PO QAM 04/24/19 04/05/20 History tamsulosin 0.4 mg capsule 0.4 mg PO HS 04/24/19 04/05/20 History duloxetine 20 mg capsule,delayed 20 mg PO QAM #90 cap 05/29/19 04/05/20 Rx release prednisone 5 mg tablet 5 mg PO QAM tab 05/29/19 04/05/20 History sodium di- and 2 tab PO TID tab 05/29/19 04/05/20 History monophosphate-potassium phos monobasic 250 mg tablet miscellaneous medical supply #1 ea 10/04/19 04/05/20 Rx magnesium oxide 800 mg PO TID cap 01/11/20 04/05/20 History gabapentin [Neurontin] 600 mg PO .BID UD 01/28/20 04/05/20 History gabapentin [Neurontin] 900 mg PO HS 01/28/20 04/05/20 History losartan [Cozaar] 50 mg PO QAM 01/28/20 04/05/20 History mycophenolate mofetil 250 mg 1,000 mg PO BID cap 02/20/20 04/05/20 History capsule amlodipine 5 mg tablet 5 mg PO HS tab 03/04/20 04/05/20 History febuxostat 80 mg tablet 80 mg PO QAM 03/06/20 04/05/20 History furosemide 40 mg tablet 60 mg PO QAM tab 03/06/20 04/05/20 History cyclosporine 100 mg capsule 200 mg PO BID cap 03/19/20 04/05/20 History simvastatin 40 mg PO HS 04/05/20 04/05/20 History warfarin 7.5 mg PO .[id number]@QDD 04/05/20 04/05/20 History warfarin 10 mg PO .[id number] 04/05/20 04/05/20 History Patient History Medical History (Updated 04/06/20 @ 13:27 by Bina Harkins DO) Chronic kidney disease Deep vein blood clot of left lower extremity S/P LEFT LEG SURGERY (EXCISION OF MELANOMA LEFT LEG) 10 YEARS AGO. DVT (deep venous thrombosis) right 04/2019 End stage renal disease Family history of blood clots Gastroenteritis Gout Hyperlipidemia Hyperlipidemia Hypertension Sarcoidosis Sleep apnea CPAP Small bowel obstruction Surgical History H/O colonoscopy History of melanoma excision History of tonsillectomy History of tooth extraction Kidney transplanted Family History (Updated 03/06/20 @ 10:37 by Dixie Storey RN) Mother Stroke Heart disease Grandmother Cancer Other Lung disease Social History (Updated 03/06/20 @ 10:01 by Dixie Storey RN) Smoking Status: Never smoker Second Hand Exposure: No; Do You Dip or Chew Tobacco: No; Hx Alcohol Use: No Hx Substance Use: No Preferred Language: Tajik Communication Ability: Effective Electrical Installer Required: No Beliefs That Will Affect Care: None marital status: Current Living Situation: Family Current Living Situation Comment: sister and son as well current occupational status: employed current occupation: [employer] How many Children do You have: 1 Other Information That Helps Us Care for You: No Feels Safe at Home: Yes Safety Concerns: Feels Safe At This Time Assistive Devices: None Review of Systems Constitutional: no sweats, no malaise and no weight loss Eyes: no diplopia Ear, Nose, Mouth, Throat: no ear trauma Respiratory: no change in sputum and no hemoptysis Cardiovascular: no chest pain with activity and no dyspnea at rest Gastrointestinal: + abdominal pain, + bloating and + nausea Genitourinary: no urinary frequency Musculoskeletal: no radicular pain Neurologic: no falls Psychiatric: no hopelessness Endocrine: no polydipsia Physical Exam Constitutional: WD/WN, vitals as above well developed; not ill appearing Eyes: PERRL, conjunctivae normal, anicteric sclerae Respiratory: no respiratory distress and no labored breathing Cardiovascular: Rate/Rhythm: regular rate Heart Sounds: + murmur Gastrointestinal (Abdomen): Percussion/Palpation: abdomen soft; no guarding and abdomen not rigid Results & Data ([facility]) Vital Signs (Past 12 Hours) Vital Signs Temp Pulse Resp BP Pulse Ox 04/06/20 07:28 36.5 C 56 L 15 144/87 H 97 Laboratory Results Laboratory Results - last 24 hr 04/05/20 04/05/20 04/05/20 17:15 17:15 18:54 WBC 9.20 RBC 4.49 L Hgb 14.0 Hct 42.4 MCV 94.4 MCH 31.2 MCHC 33.0 RDW Std Deviation 49.1 H RDW Coeff of Theresa 14.3 Plt Count 221 MPV 10.9 H Immature Gran % (Auto) 0.2 Neut % (Auto) 86.6 Lymph % (Auto) 6.6 [place] % (Auto) 5.2 Eos % (Auto) 1.2 Baso % (Auto) 0.2 Neut # (Auto) 7.96 H Lymph # (Auto) 0.61 L [place] # (Auto) 0.48 Eos # (Auto) 0.11 Baso # (Auto) 0.02 Immature Gran # (Auto) 0.02 PT INR Sodium 140 Potassium 4.6 Chloride 108 H Carbon Dioxide 27 Anion Gap 5.0 BUN 32 H Creatinine 2.00 H Est Cr Clr Drug Dosing 56.6 Est GFR ( Amer) 41.4 Est GFR (Non-Af Amer) 35.7 BUN/Creatinine Ratio 15.9 Glucose 106 H Calcium 9.7 Total Bilirubin 0.7 AST 30 ALT 36 Alkaline Phosphatase 118 H Total Protein 8.0 Albumin 4.1 Globulin 3.9 Albumin/Globulin Ratio 1.1 Lipase 276 Specimen Hemolysis Urine Color Urine Appearance Urine pH Ur Specific [place] Urine Protein Urine Glucose (UA) Urine Ketones Urine Blood Urine Nitrite Urine Bilirubin Urine Urobilinogen Ur Leukocyte Esterase Urine WBC (Auto) Urine RBC (Auto) U Hyaline Cast (Auto) U Epithel Cells (Auto) Urine Bacteria (Auto) Stl C. diff Tox B Gene Negative Cdiff Gene Cyclosporine 04/05/20 04/05/20 04/06/20 20:26 20:26 05:27 WBC RBC Hgb Hct MCV MCH MCHC RDW Std Deviation RDW Coeff of Theresa Plt Count MPV Immature Gran % (Auto) Neut % (Auto) Lymph % (Auto) [place] % (Auto) Eos % (Auto) Baso % (Auto) Neut # (Auto) Lymph # (Auto) [place] # (Auto) Eos # (Auto) Baso # (Auto) Immature Gran # (Auto) PT 21.0 H INR 2.1 H Sodium Potassium Chloride Carbon Dioxide Anion Gap BUN Creatinine Est Cr Clr Drug Dosing Est GFR ( Amer) Est GFR (Non-Af Amer) BUN/Creatinine Ratio Glucose Calcium Total Bilirubin AST ALT Alkaline Phosphatase Total Protein Albumin Globulin Albumin/Globulin Ratio Lipase Specimen Hemolysis Urine Color Yellow Urine Appearance Clear Urine pH 7.0 Ur Specific [place] 1.019 Urine Protein 2+ H Urine Glucose (UA) Negative Urine Ketones Negative Urine Blood Negative Urine Nitrite Negative Urine Bilirubin Negative Urine Urobilinogen Negative Ur Leukocyte Esterase Negative Urine WBC (Auto) 1-5 Urine RBC (Auto) 0-4 U Hyaline Cast (Auto) 0 U Epithel Cells (Auto) 5-10 H Urine Bacteria (Auto) Negative Stl C. diff Tox B Gene Cyclosporine Pending 04/06/20 04/06/20 04/06/20 06:14 06:14 06:14 WBC 6.65 RBC 4.23 L Hgb 12.9 L Hct 39.9 L MCV 94.3 MCH 30.5 MCHC 32.3 RDW Std Deviation 49.7 H RDW Coeff of Theresa 14.5 Plt Count 220 MPV 11.0 H Immature Gran % (Auto) 0.2 Neut % (Auto) 83.7 Lymph % (Auto) 8.9 [place] % (Auto) 4.1 Eos % (Auto) 2.9 Baso % (Auto) 0.2 Neut # (Auto) 5.58 Lymph # (Auto) 0.59 L [place] # (Auto) 0.27 Eos # (Auto) 0.19 Baso # (Auto) 0.01 Immature Gran # (Auto) 0.01 PT 19.5 H INR 1.9 H Sodium 142 Potassium 4.3 Chloride 114 H Carbon Dioxide 25 Anion Gap 3.0 BUN 27 H Creatinine 1.60 H D Est Cr Clr Drug Dosing 71.1 Est GFR ( Amer) 54.2 Est GFR (Non-Af Amer) 46.8 BUN/Creatinine Ratio 16.6 Glucose 90 Calcium 9.1 Total Bilirubin AST ALT Alkaline Phosphatase Total Protein Albumin Globulin Albumin/Globulin Ratio Lipase Specimen Hemolysis Urine Color Urine Appearance Urine pH Ur Specific [place] Urine Protein Urine Glucose (UA) Urine Ketones Urine Blood Urine Nitrite Urine Bilirubin Urine Urobilinogen Ur Leukocyte Esterase Urine WBC (Auto) Urine RBC (Auto) U Hyaline Cast (Auto) U Epithel Cells (Auto) Urine Bacteria (Auto) Stl C. diff Tox B Gene Cyclosporine Diagnostic Findings CT OF THE ABDOMEN AND PELVIS WITHOUT CONTRAST CLINICAL HISTORY: mid abd pain w/ v/d COMPARISON STUDY: CT of the abdomen and pelvis December 27, 2018. Umbilical ultrasound March 04, 2020. TECHNIQUE: Axial images of the abdomen and pelvis were obtained without IV contrast. Images were reviewed in the axial, sagittal, and coronal planes. Automated exposure control was utilized for the study. A dose lowering technique was utilized adhering to the principles of ALARA. FINDINGS: Imaged portions of the lower lungs demonstrate multiple calcified and noncalcified pulmonary nodules which are unchanged from earlier exams. There are also calcified mediastinal and left hilar lymph nodes. These findings are benign. No pneumatosis, free air or portal venous gas is present. Evaluation of the abdomen and pelvis is suboptimal on this unenhanced exam. The liver, spleen, adrenal glands and pancreas are unremarkable. Both [place] kidneys are markedly atrophic. A few left renal lesions are suboptimally assessed on this unenhanced exam but measure water attenuation. These favor cysts. A right lower quadrant renal allograft is noted. There is no graft hydronephrosis. No perigraft fluid collection is present. There is minimal infiltration within the right renal sinus. Prostate is mildly enlarged. Note is made of multiple mildly dilated fluid-filled right abdominal small bowel loops measure up to 3.2 cm in caliber. Possible extensive point within the right anterior abdomen on axial image [id number] is noted. There is a fat and fluid containing umbilical hernia but this does not contain a bowel loop. There is also made of mild wall thickening with mesenteric infiltration of several additional small bowel loops. The appendix is normal. There is no lymphadenopathy. There are no suspicious osseous lesions. IMPRESSION: 1. Multiple loops of mildly dilated fluid-filled small bowel with possible transition point within the right anterior abdomen. In addition, wall thickening and mesenteric infiltration associated with additional small bowel loops. These findings may reflect a partial small bowel obstruction or a nonspecific enteritis. 2. Suboptimal evaluation of the abdomen and pelvis given the lack of IV contr ast. 3. Fat and fluid containing umbilical hernia. This hernia does not contain bowel. 4. Right lower quadrant renal allograft in place. No graft hydronephrosis. No perigraft fluid collections.
[2020-04-06] MEDS ORDERED: WARFARIN SOD 10 MG TAB PO SCH (16:00)
[2020-04-06] MEDS ORDERED: WARFARIN SOD 2.5 MG TAB PO ONE (16:00)
[2020-04-06] MEDS ORDERED: SIMVASTATIN 40 MG TAB PO SCH (21:00)
[2020-04-06] MEDS ORDERED: TAMSULOSIN HCL 0.4 MG CAP PO SCH (21:00)
[2020-04-06] MEDS ORDERED: amLODIPine BESYLATE 5 MG TAB PO SCH (21:00)
[2020-04-06] MEDS ORDERED: GABAPENTIN 300 MG CAP PO SCH (21:00)
[2020-04-06] MEDS: MYCOPHENOLATE MOFETIL 250 MG CAP PO SCH (21:17)
--- NOTE | 2020-04-06 21:22 | Hospitalist Progress Note ---
Date of Service April 06, 2020 Assessment & Plan (1) Small bowel obstruction: 59-year-old male with past medical history umbilical hernia, renal transplant recipient, BPH, GERD, depression, FARNAZ, hypertension, hyperlipidemia presents with concerns of vomiting and diarrhea found to have concern of partial small bowel obstruction versus nonspecific enteritis on CT abdomen pelvis. Vomiting/diarrhea/abdominal pain-completely resolved Secondary to partial small bowel obstruction versus nonspecific enteritis Abdomen pelvis CT without contrast: Multiple loops of mildly dilated fluid- filled small bowel with possible transition point within the right anterior abd omen. In addition, wall thickening and mesenteric infiltration associated with additional small bowel loops. These findings may reflect a partial small bowel obstruction or a nonspecific enteritis Patient is now tolerating clear liquids and had a small formed bowel movement today, no further abdominal pain Possibility of adhesions given history of abdominal surgery There is no incarceration of umbilical hernia Appreciate general surgery consultation-suspect gastroenteritis and no acute surgical issues at this time Appreciate gastroenterology consultation-recommends chest checking for C. diffic ile and stool culture which is already been done and is negative. Also suggests possible adhesive disease as the cause Fortunately, patient is seeing his transplant team next week and already has an appointment there with a surgeon to discuss his umbilical hernia. He will also discuss the 2 partial small bowel obstructions he has had in the last several weeks. Continue IV fluids until this bag is empty and then stop -Advance diet to full liquids for this evening Continued stay and advance diet to low fiber in the morning if tolerating can go home Acute renal insufficiency in the setting of CKD stage III, status post renal transplant Creatinine 2.0 on admission. Baseline creatinine previously 1.21.3, but has been more like 1.6-1.8 since starting cyclosporine Secondary to dehydration from large volume emesis/diarrhea Received IVF with NSS as above and creatinine now down to baseline of 1.6 Daily BMP -Okay to increase mycophenolate dosing back to 1000 mg p.o. twice daily Renal transplant recipient Continue cyclosporine 250 mg twice daily, prednisone 5 mg. Okay to increase mycophenolate back to 100 mg twice daily as renal function has returned to baseline Has appointment with renal transplant team next week History of DVT h/o DVT following surgery for melanoma removal in his left leg years ago as well as a right lower extremity DVT Is on lifelong anticoagulation INR 2.1 on admission and has now dropped down to 1.9 He missed his dose of Coumadin on 04/05 We will give 12.5 mg of Coumadin today and then return to usual dosing He follows with anticoagulation clinic Check INR in the morning HTN/HLD Continue amlodipine 5 mg twice daily, losartan 50 mg, simvastatin 40 mg Holding furosemide 40 mg secondary to LORENZO as above Depression Continue duloxetine 20 mg GERD Continue omeprazole 40 mg BPH Continue Flomax 0.4 mg DVT prophylaxis: Warfarin CODE STATUS: Full code Dispo: MedSurg continued stay and possible discharge to home tomorrow (2) Umbilical hernia: (3) Renal insufficiency: (4) Renal transplant recipient: (5) BPH (benign prostatic hyperplasia): (6) GERD (gastroesophageal reflux disease): (7) Depression: (8) DVT (deep venous thrombosis): (9) Anticoagulated: (10) Hypercholesteremia: (11) Gout: (12) Neuropathy: (13) Hypertension: Admission and Anticipated Discharge Date Admission Date: April 05, 2020 Subjective Patient reports feeling much improved today. He has no further abdominal pain, no nausea or vomiting. No further diarrhea but is passing gas and passed 1 small formed bowel movement. He had just tolerated a clear liquids tray for lunch when I saw him. He reports this exact presentation several weeks ago when he was also thought to have possibly partial small bowel obstruction or difficulty with his hernia. He reports that his creatinine has been up around 1.6-1.8 since he started CellCept and his transplant team is aware of this. He is making urine. Denies chest pain or shortness of breath, no lightheadedness or headache. No history of Covid-19 exposures. He reports that he missed his dose of Coumadin yesterday. Review of Systems Review of Systems: All systems reviewed & are unremarkable except as noted in HPI & below Physical Exam Constitutional: WD/WN, vitals as above Eyes: + anicteric sclerae Neck: trachea midline, no thyromegaly Respiratory: normal respiratory effort, lungs clear to auscultation Cardiovascular: RRR, no murmur, no edema Chest (Breasts): Chest: normal inspection of chest Gastrointestinal (Abdomen): normal bowel sounds, soft, nontender, no hepatosplenomegaly (Transplant kidney palpable in the right side of abdomen) Percussion/Palpation: + hernia (Small supraumbilical reducible hernia) Musculoskeletal: Extremities: extremities normal to inspection; no cyanosis and no clubbing Skin: + rash (chronic venous stasis changes) Neurologic: moves all extremities and awake; no focal motor deficits Psychiatric: A+Ox3, euthymic affect Lymphatic: no lymphedema Results & Data Results & Data ([facility]) Vital Signs (Past 12 Hours) Vital Signs Temp Pulse Resp BP Pulse Ox 04/06/20 15:59 37 C 60 20 129/75 99 Laboratory Results 04/06/20 04/06/20 04/06/20 Range/Units 18:40 06:14 06:14 WBC (4.8-10.8) K/uL RBC (4.7-6.1) M/uL Hgb (14.0-18.0) g/dL Hct (42-52) % MCV (80-100) fL MCH (25-34) pg MCHC (32-36) g/dL RDW Std Deviation (36.4-46.3) fL RDW Coeff of Theresa (11.5-14.5) % Plt Count (130-400) K/uL MPV (7.4-10.4) fL Immature Gran % (Auto) % Neut % (Auto) % Lymph % (Auto) % [place] % (Auto) % Eos % (Auto) % Baso % (Auto) % Neut # (Auto) (1.4-6.5) K/uL Lymph # (Auto) (1.2-3.4) K/uL [place] # (Auto) (0.11-0.59) K/uL Eos # (Auto) (0-0.5) K/uL Baso # (Auto) (0-0.2) K/uL Immature Gran # (Auto) (0.00-0.02) K/uL PT 19.5 H (9.0-12.0) Seconds INR 1.9 H (0.9-1.1) Sodium 142 (136-145) mmol/L Potassium 4.3 (3.5-5.1) mmol/L Chloride 114 H (98-107) mmol/L Carbon Dioxide 25 (21-32) mmol/L Anion Gap 3.0 (3-11) BUN 27 H (7-18) mg/dl Creatinine 1.60 H D (0.6-1.4) mg/dl Est Cr Clr Drug Dosing 71.1 ml/min Est GFR ( Amer) 54.2 Est GFR (Non-Af Amer) 46.8 BUN/Creatinine Ratio 16.6 (10-20) Glucose 90 (70-99) mg/dl Calcium 9.1 (8.5-10.1) mg/dl Urine Color Urine Appearance (Clear) Urine pH (4.5-7.5) Ur Specific [place] (1.000-1.030) Urine Protein (Negative) Urine Glucose (UA) (Negative) Urine Ketones (Negative) Urine Blood (Negative) Urine Nitrite (Negative) Urine Bilirubin (Negative) Urine Urobilinogen (Negative) Ur Leukocyte Esterase (Negative) Urine WBC (Auto) (0-5) /hpf Urine RBC (Auto) (0-4) /hpf U Hyaline Cast (Auto) (0-5) /lpf U Epithel Cells (Auto) (0-5) /lpf Urine Bacteria (Auto) (Negative) Stl C. diff Tox B Gene Negative Cdiff Gene (Neg) 04/06/20 04/06/20 Range/Units 06:14 05:27 WBC 6.65 (4.8-10.8) K/uL RBC 4.23 L (4.7-6.1) M/uL Hgb 12.9 L (14.0-18.0) g/dL Hct 39.9 L (42-52) % MCV 94.3 (80-100) fL MCH 30.5 (25-34) pg MCHC 32.3 (32-36) g/dL RDW Std Deviation 49.7 H (36.4-46.3) fL RDW Coeff of Theresa 14.5 (11.5-14.5) % Plt Count 220 (130-400) K/uL MPV 11.0 H (7.4-10.4) fL Immature Gran % (Auto) 0.2 % Neut % (Auto) 83.7 % Lymph % (Auto) 8.9 % [place] % (Auto) 4.1 % Eos % (Auto) 2.9 % Baso % (Auto) 0.2 % Neut # (Auto) 5.58 (1.4-6.5) K/uL Lymph # (Auto) 0.59 L (1.2-3.4) K/uL [place] # (Auto) 0.27 (0.11-0.59) K/uL Eos # (Auto) 0.19 (0-0.5) K/uL Baso # (Auto) 0.01 (0-0.2) K/uL Immature Gran # (Auto) 0.01 (0.00-0.02) K/uL PT (9.0-12.0) Seconds INR (0.9-1.1) Sodium (136-145) mmol/L Potassium (3.5-5.1) mmol/L Chloride (98-107) mmol/L Carbon Dioxide (21-32) mmol/L Anion Gap (3-11) BUN (7-18) mg/dl Creatinine (0.6-1.4) mg/dl Est Cr Clr Drug Dosing ml/min Est GFR ( Amer) Est GFR (Non-Af Amer) BUN/Creatinine Ratio (10-20) Glucose (70-99) mg/dl Calcium (8.5-10.1) mg/dl Urine Color Yellow Urine Appearance Clear (Clear) Urine pH 7.0 (4.5-7.5) Ur Specific [place] 1.019 (1.000-1.030) Urine Protein 2+ H (Negative) Urine Glucose (UA) Negative (Negative) Urine Ketones Negative (Negative) Urine Blood Negative (Negative) Urine Nitrite Negative (Negative) Urine Bilirubin Negative (Negative) Urine Urobilinogen Negative (Negative) Ur Leukocyte Esterase Negative (Negative) Urine WBC (Auto) 1-5 (0-5) /hpf Urine RBC (Auto) 0-4 (0-4) /hpf U Hyaline Cast (Auto) 0 (0-5) /lpf U Epithel Cells (Auto) 5-10 H (0-5) /lpf Urine Bacteria (Auto) Negative (Negative) Stl C. diff Tox B Gene (Neg) PG Care Time/CCT Total # of Minutes Spent Total Time Spent with Patient: Total time spent is greater than 50% in coordination of care (as documented) at patient's floor/unit and/or counseling patient: Coding Level of Care Code 07010 Subseq Obs Care Lvl 3 Diagnoses Small bowel obstruction K56.609 Umbilical hernia K42.9 Renal insufficiency N28.9 Renal transplant recipient Z94.0 BPH (benign prostatic hyperplasia) N40.1; R39.11 Lower urinary tract symptom presence: symptoms present Lower urinary tract symptom detail: urinary hesitancy GERD (gastroesophageal reflux disease) K21.9 Esophagitis presence: without esophagitis Depression F32.89 Depression Type: other depression DVT (deep venous thrombosis) I82.409 DVT location: lower extremity Affected thrombotic vein of extremity: unspecified vein of extremity Chronicity: unspecified Laterality: unspecified laterality Anticoagulated Z79.01 Hypercholesteremia E78.00 Gout M10.9 Neuropathy G62.9 Hypertension I10 Hypertension type: essential hypertension (1) BPH (benign prostatic hyperplasia) Lower urinary tract symptom presence: symptoms present Lower urinary tract symptom detail: urinary hesitancy Qualified Code(s): N40.1 - Benign prostatic hyperplasia with lower urinary tract symptoms; R39.11 - Hesitancy of micturition (2) GERD (gastroesophageal reflux disease) Esophagitis presence: without esophagitis Qualified Code(s): K21.9 - Gastro- esophageal reflux disease without esophagitis (3) Depression Depression Type: other depression Qualified Code(s): F32.89 - Other specified depressive episodes (4) DVT (deep venous thrombosis) DVT location: lower extremity Affected thrombotic vein of extremity: unspecified vein of extremity Chronicity: unspecified Laterality: unspecified laterality Qualified Code(s): I82.409 - Acute embolism and thrombosis of unspecified deep veins of unspecified lower extremity (5) Hypertension Hypertension type: essential hypertension Qualified Code(s): I10 - Essential (primary) hypertension
[2020-04-07 06:13] LABS: Basophils # (auto) 0.03 K/uL (0-0.2); Basophils % (auto) 0.6 %; Eosinophils # (auto) 0.29 K/uL (0-0.5); Eosinophils % (auto) 5.3 %; Hematocrit (blood only) 38.8 % (42-52); Hemoglobin 12.7 g/dL (14.0-18.0); Immature Granulocytes # (auto) 0.02 K/uL (0.00-0.02); Immature Granulocytes % (auto) 0.4 %; Lymphocytes # (auto) 0.62 K/uL (1.2-3.4); Lymphocytes % (auto) 11.4 %; Mean Corpuscular Hemoglobin 30.7 pg (25-34); Mean Corpuscular Hgb Conc 32.7 g/dL (32-36); Mean Corpuscular Volume 93.7 fL (80-100); Mean Platelet Volume 10.5 fL (7.4-10.4); Monocytes # (auto) 0.29 K/uL (0.11-0.59); Monocytes % (auto) 5.3 %; Neutrophils # (auto) 4.19 K/uL (1.4-6.5); Platelet Count 212 K/uL (130-400); RDW Coefficient of Variation 14.2 % (11.5-14.5); RDW Standard Deviation 48.7 fL (36.4-46.3); Red Blood Count 4.14 M/uL (4.7-6.1); White Blood Count 5.44 K/uL (4.8-10.8)
[2020-04-07 06:35] LABS: INR 1.7 (0.9-1.1); Prothrombin Time 17.6 Seconds (9.0-12.0)
[2020-04-07 06:47] LABS: Albumin Level 3.6 gm/dl (3.4-5.0); BUN Creatinine Ratio 12.9 (10-20); Calcium 9.2 mg/dl (8.5-10.1); Creatinine Clr Calc Pharmacy 76.9 ml/min; Est GFR (African American) 59.6; Est GFR (Non-African American) 51.4; Potassium 4.3 mmol/L (3.5-5.1)
[2020-04-07 06:50] LABS: Globulin 3.5 gm/dl (2.5-4.0); Total Protein 7.1 gm/dl (6.4-8.2)
[2020-04-07] MEDS: cycloSPORINE 100 MG CAP PO SCH (09:37)
[2020-04-07] MEDS: MYCOPHENOLATE MOFETIL 250 MG CAP PO SCH (09:37)
[2020-04-07] MEDS: predniSONE 5 MG TAB PO SCH (09:38)
[2020-04-07] MEDS: MULTIVITAMIN TAB PO SCH (09:38)
[2020-04-07] MEDS: GABAPENTIN 300 MG CAP PO SCH (09:38)
[2020-04-07] MEDS: POT PHOSPHATE MONOBASIC W/ SOD TAB PO SCH (09:39)
[2020-04-07] MEDS: ASPIRIN 81 MG ECTAB PO SCH (09:39)
[2020-04-07] MEDS: LOSARTAN POTASSIUM 50 MG TAB PO SCH (09:39)
[2020-04-07] MEDS: FEBUXOSTAT 40 MG TABLET PO SCH (09:40)
[2020-04-07] MEDS: DULoxetine HCL 20 MG CAP PO SCH (09:40)
[2020-04-07] MEDS: CHOLECALCIFEROL 1,000 UNITS 25 MCG TAB PO SCH (09:40)
[2020-04-07] MEDS: PANTOprazole 40 MG TAB PO SCH (09:40)
[2020-04-07] MEDS: MAGNESIUM OXIDE 400 MG TAB PO SCH (09:41)
--- NOTE | 2020-04-07 10:54 | Discharge Summary ---
Date of Service April 07, 2020 Admission HPI Per Admitting Provider 59-year-old male with past medical history umbilical hernia, renal transplant recipient, BPH, GERD, depression, FARNAZ, hypertension, hyperlipidemia presents with concerns of vomiting and diarrhea that started this morning upon waking up. No previous occurrence to this extent before. Patient notes that he had abdominal pain that felt like "stomach needed to explode." The last time he had something similar to this was a result of his hernia, felt similar. Patient notes he vomited x1 with resolution, but has noted ongoing diarrhea every 30 minutes roughly. No blood in stool noted. No known exacerbating or relieving factors. Patient notes no recent antibiotic use. Patient was on Omnicef 300 mg twice daily x4 weeks, which ended 1 month ago. No one else with similar complaints, even though they ate at a restaurant last night. Abdominal pain has since resolved. Patient otherwise denies any fevers, chills, sweats, nausea, vomiting, chest pain, shortness of breath, cough, lightheadedness, dizziness, urinary symptoms, no sick contacts or recent travel anywhere. Patient no other acute concerns or complaints. Pertinent labs: Creatinine 2.0, BUN 32. C. difficile negative Abdomen pelvis CT without contrast: Multiple loops of mildly dilated fluid- filled small bowel with possible transition point within the right anterior abdomen. In addition, wall thickening and mesenteric infiltration associated with additional small bowel loops. These findings may reflect a partial small bowel obstruction or a nonspecific enteritis. Fat and fluid containing umbilical hernia. This hernia does not contain bowel. ER course: NSS 2 L Principal Diagnosis Partial small bowel obstruction vs gastroenteritis, Acute renal insufficiency Discharge Exam Constitutional WD/WN, vitals as above Eyes + anicteric sclerae Neck trachea midline, no thyromegaly Respiratory normal respiratory effort, lungs clear to auscultation Cardiovascular RRR, no murmur, no edema Chest (Breasts) Chest: normal inspection of chest Gastrointestinal (Abdomen) normal bowel sounds, soft, nontender, no hepatosplenomegaly (Transplant kidney palpable in the right side of abdomen) Percussion/Palpation: + hernia (Small supraumbilical reducible hernia) Musculoskeletal Extremities: extremities normal to inspection; no cyanosis and no clubbing Skin + rash (chronic venous stasis changes) Neurologic moves all extremities and awake; no focal motor deficits Psychiatric A+Ox3, euthymic affect Lymphatic no lymphedema Discharge Data Allergies Allergy/AdvReac Type Severity Reaction Status Date / Time allopurinol Allergy Unknown Rash Verified 04/05/20 20:59 Penicillins Allergy Unknown Unknown Verified 04/05/20 20:59 Consultations 04/05/20 21:20 ED Decision to Admit Stat 04/06/20 00:50 Consult Gastroenterology Routine 04/06/20 09:35 Consult General Surgery Routine 04/07/20 10:23 Burn CD for patient Routine Ordered Studies 04/05/20 18:43 CT abd pelvis wo con Stat Hospital Course (1) Small bowel obstruction: 59-year-old male with past medical history umbilical hernia, renal transplant recipient, BPH, GERD, depression, FARNAZ, hypertension, hyperlipidemia presents with concerns of vomiting and diarrhea found to have concern of partial small bowel obstruction versus nonspecific enteritis on CT abdomen pelvis. Vomiting/diarrhea/abdominal pain-completely resolved Secondary to partial small bowel obstruction versus nonspecific enteritis Abdomen pelvis CT without contrast: Multiple loops of mildly dilated fluid- filled small bowel with possible transition point within the right anterior abdomen. In addition, wall thickening and mesenteric infiltration associated with additional small bowel loops. These findings may reflect a partial small bowel obstruction or a nonspecific enteritis Patient is now tolerating low fiber diet, no further abdominal pain Possibility of adhesions given history of abdominal surgery There is no incarceration of umbilical hernia here but has a h/o such in the past Appreciate general surgery consultation-suspect gastroenteritis and no acute surgical issues at this time Appreciate gastroenterology consultation-recommends chest checking for C. difficile and stool culture which is already been done and is negative. Also suggests possible adhesive disease as the cause Fortunately, patient is seeing his transplant team next week and already has an appointment there with a surgeon to discuss his umbilical hernia. He will also discuss the 2 partial small bowel obstructions he has had in the last several weeks. Stable for dc to home Acute renal insufficiency in the setting of CKD stage III, status post renal transplant Creatinine 2.0 on admission. Baseline creatinine previously 1.21.3, but has been more like 1.6-1.8 since starting cyclosporine Secondary to dehydration from large volume emesis/diarrhea Received IVF with NSS as above and creatinine now down to baseline of 1.48 follow BMP as outpt with Nephrology Renal transplant recipient Continue cyclosporine 250 mg twice daily, prednisone 5 mg, and mycophenolate 100 mg twice daily as renal function has returned to baseline Has appointment with renal transplant team next week History of DVT h/o DVT following surgery for melanoma removal in his left leg years ago as well as a right lower extremity DVT Is on lifelong anticoagulation INR 2.1 on admission and has now dropped down to 1.7 as hemissed one dose of 7.5mg the day of admission He missed his dose of Coumadin on 04/05 Gave 12.5 mg of Coumadin on 04/06 and will recommend 15mg on 04/07, then return to usual dosing He follows with anticoagulation clinic Check INR in 3 days HTN/HLD Continue amlodipine 5 mg twice daily, losartan 50 mg, simvastatin 40 mg Holding furosemide 40 mg secondary to LORENZO as above but can restart upon discharge Depression Continue duloxetine 20 mg GERD Continue omeprazole 40 mg BPH Continue Flomax 0.4 mg DVT prophylaxis: Warfarin CODE STATUS: Full code Dispo: stable for dc to home (2) Umbilical hernia: (3) Renal insufficiency: (4) Renal transplant recipient: (5) BPH (benign prostatic hyperplasia): (6) GERD (gastroesophageal reflux disease): (7) Depression: (8) DVT (deep venous thrombosis): (9) Anticoagulated: (10) Hypercholesteremia: (11) Gout: (12) Neuropathy: (13) Hypertension: Total Time Total Time Spent Total Time Spent (In Minutes): 35 min Total Time Includes: Examination of the Patient, Discharge Planning and Medication Reconciliation Discharge Plan Discharge Items Patient Disposition: Home - Self-Care Reason For Visit: SBO Discharge Diagnosis: Partial small bowel obstruction vs gastroenteritis Acute kidney injury Condition on Discharge: Good Activity: Resume your previous activity Non-emergency contact: Primary Care Provider, Surgeon and Household Appliances Salesperson Call non-emergency contact if: you have any medication questions and your symptoms worsen Follow-up/Referrals: Davion Pablo MD [Primary Care Provider] - (Please follow up within 1 week.) Diet: Low Fiber Addtl Attending Provider Instructions: You were admitted for dehydration with acute kidney injury from a partial small bowel obstruction vs gastroenteritis. You were given IV fluids and your renal failure improved. You also had resolution of your GI symptoms. Please keep your follow up appointment with your transplant team for next week, including the appt with a Surgeon to discuss your umbilical hernia. Your INR was down to 1.7 on the day of discharge because you missed one dose of coumadin this week. Please take 15mg today and then return to your usual dosing tomorrow. Check your INR in 3 days with anticoagulation clinic. Pending Studies at Discharge: Yes Stand-Alone Forms: My [facility] Medications and DC Order Prescriptions: Continued omeprazole 40 mg capsule,delayed release(DR/EC) 40 mg PO QAM Qty: 90 RF: 3 (DME) CPAP Supplies Misc See Rx Instructions .ROUTE .MEDSUPPLY Qty: 1 RF: 0 mycophenolate mofetil [CellCept] 250 mg capsule 1,000 mg PO BID RF: 0 febuxostat [Uloric] 80 mg tablet 80 mg PO QAM RF: 0 furosemide [Lasix] 40 mg tablet 60 mg PO QAM RF: 0 aspirin [Adult Low Dose Aspirin] 81 mg tablet,delayed release (DR/EC) 81 mg PO QAM RF: 0 tamsulosin [Flomax] 0.4 mg capsule 0.4 mg PO HS RF: 0 docusate sodium [Colace] 100 mg capsule 100 mg PO BID PRN (Reason: Constipation) RF: 0 multivitamin [Daily Multi-Vitamin] tablet 1 tab PO QAM RF: 0 cholecalciferol (vitamin D3) 1,000 unit capsule 1,000 units PO QAM RF: 0 prednisone 5 mg tablet 5 mg PO QAM RF: 0 E-Nteh-Zkadvxs 250 mg tablet 2 tab PO TID RF: 0 magnesium oxide 400 mg magnesium capsule 800 mg PO TID RF: 0 duloxetine 20 mg capsule,delayed release(DR/EC) 20 mg PO QAM Qty: 90 RF: 3 cyclosporine 100 mg capsule 200 mg PO BID RF: 0 amlodipine 5 mg tablet 5 mg PO HS RF: 0 losartan [Cozaar] 50 mg tablet 50 mg PO QAM RF: 0 gabapentin [Neurontin] 300 mg capsule 900 mg PO HS RF: 0 gabapentin [Neurontin] 300 mg capsule 600 mg PO .BID UD RF: 0 warfarin 5 mg tablet 10 mg PO .SUTUWEFRSA@QDD RF: 0 warfarin 5 mg tablet 7.5 mg PO .MOTH@QDD RF: 0 simvastatin 40 mg tablet 40 mg PO HS RF: 0 Discharge Orders: Discharge Order (Routine); Ordered 04/07/20 Ordered By: Aniya Zafar Admission Data Admit Date/Time: 04/05/20 23:16 Attending Provider: Aniya Zafar Admit Provider: Benjie Johnson Primary Care Provider: Davion Pablo Other Providers: Yovani Pizarro ; Bina Harkins ; Rahul Bauer Coding Level of Care Code 48245 OBS Care - Discharge Diagnoses Small bowel obstruction K56.609 Umbilical hernia K42.9 Renal insufficiency N28.9 Renal transplant recipient Z94.0 BPH (benign prostatic hyperplasia) N40.1; R39.11 Lower urinary tract symptom presence: symptoms present Lower urinary tract symptom detail: urinary hesitancy GERD (gastroesophageal reflux disease) K21.9 Esophagitis presence: without esophagitis Depression F32.89 Depression Type: other depression DVT (deep venous thrombosis) I82.409 DVT location: lower extremity Affected thrombotic vein of extremity: unspecified vein of extremity Chronicity: unspecified Laterality: unspecified laterality Anticoagulated Z79.01 Hypercholesteremia E78.00 Gout M10.9 Neuropathy G62.9 Hypertension I10 Hypertension type: essential hypertension
--- NOTE | 2020-04-07 22:33 | Billing Data ---
Date of Service April 07, 2020 Coding Level of Care Code 91581 Initial Inpt Care Lvl 3
[2020-04-08] MEDS ORDERED: WARFARIN SOD 7.5 MG TAB PO SCH (16:00)
== END 2020-04-07 14:44 | disposition home or self-care (01) ==
LOC: 3E 16:36 → ED 16:36 → SUATTDRO 23:16 → 3E 04-06 00:09

== ENCOUNTER 2020-08-28 10:48 | Inpatient (IN) ==
[2020-08-28] MEDS ORDERED: ALBUTEROL HFA 8 GM INHALER INH ONE (11:50)
[2020-08-28 12:24] LABS: Basophils # (auto) 0.01 K/uL (0-0.2); Basophils % (auto) 0.2 %; Eosinophils # (auto) 0.01 K/uL (0-0.5); Eosinophils % (auto) 0.2 %; Hematocrit (blood only) 33.2 % (42-52); Hemoglobin 10.8 g/dL (14.0-18.0); Immature Granulocytes # (auto) 0.05 K/uL (0.00-0.02); Immature Granulocytes % (auto) 1.2 %; Lymphocytes # (auto) 0.24 K/uL (1.2-3.4); Lymphocytes % (auto) 5.7 %; Mean Corpuscular Hemoglobin 29.1 pg (25-34); Mean Corpuscular Hgb Conc 32.5 g/dL (32-36); Mean Corpuscular Volume 89.5 fL (80-100); Mean Platelet Volume 10.8 fL (7.4-10.4); Monocytes # (auto) 0.29 K/uL (0.11-0.59); Monocytes % (auto) 6.8 %; Neutrophils # (auto) 3.64 K/uL (1.4-6.5); Neutrophils % (auto) 85.9 %; Platelet Count 161 K/uL (130-400); RDW Coefficient of Variation 14.5 % (11.5-14.5); RDW Standard Deviation 47.8 fL (36.4-46.3); Red Blood Count 3.71 M/uL (4.7-6.1); White Blood Count 4.24 K/uL (4.8-10.8)
--- NOTE | 2020-08-28 12:34 | XRay Report ---
SINGLE VIEW CHEST CLINICAL HISTORY: Sepsis. FINDINGS: An AP, portable, upright chest radiograph is compared to study dated 01/28/2020. Correlation is made with chest CT dated 11/25/2017. The examination is degraded by portable technique and apical lordotic positioning. The heart is enlarged noting atherosclerotic calcification of the thoracic aort a. There is pulmonary vascular congestion. Chronic interstitial thickening and nodularity is similar to previous. There are calcified mediastinal and hilar lymph nodes. Mild interstitial airspace opacit ies are seen throughout both lungs. No large pleural effusion or pneumothorax is seen. The skeletal s tructures appear osteopenic. The bony thorax is grossly intact. Degenerative change and scoliosis is seen in the thoracic spine. IMPRESSION: 1. Cardiomegaly with evidence of congestive failure. 2. There is residual airspace opacities are seen throughout both lungs. This could represent pulmonar y edema and/or an infectious/inflammatory pneumonitis. Clinical correlation will be required. ACT 112: Negative or not required by law. Electronically signed by: Mark Rivas M.D. 08/28/2020 12:32 PM
[2020-08-28 12:37] LABS: INR 1.8 (0.9-1.1); Partial Thromboplastin Ratio 1.6; Partial Thromboplastin Time 42.8 Seconds (21.0-31.0); Prothrombin Time 17.1 Seconds (9.0-12.0)
[2020-08-28 12:45] LABS: Alanine Aminotransferase 25 U/L (12-78); Albumin Level 3.6 gm/dl (3.4-5.0); Aspartate Aminotransferase 41 U/L (15-37); Blood Urea Nitrogen 27 mg/dl (7-18); C Reactive Protein 4.37 mg/dl (0-0.29); Calcium 8.8 mg/dl (8.5-10.1); Carbon Dioxide 23 mmol/L (21-32); Chloride 105 mmol/L (98-107); Creatinine Clr Calc Pharmacy 51.7 ml/min; Est GFR (African American) 36.1; Est GFR (Non-African American) 31.2; Glucose 88 mg/dl (70-99); Magnesium 1.8 mg/dl (1.8-2.4); Potassium 4.3 mmol/L (3.5-5.1); Sodium 134 mmol/L (136-145)
[2020-08-28 12:48] LABS: Albumin Globulin Ratio 1.1 (0.9-2); Alkaline Phosphatase 75 U/L (45-117); Creatine Kinase 143 U/L (39-308); Creatine Kinase MB < 1.0 ng/ml (0.5-3.6); Ferritin 139.3 ng/ml (8-388); Globulin 3.3 gm/dl (2.5-4.0); Total Protein 6.9 gm/dl (6.4-8.2); Troponin I < 0.015 ng/ml (0-0.045)
--- NOTE | 2020-08-28 13:49 | History & Physical Report ---
Date of Service August 28, 2020 Assessment & Plan (1) COVID-19 virus infection: diagnosed 8 days ago, routine pre-op testing for hernia surgery developed symptoms after he was positive currently with weakness, diarrhea, cough, dyspnea at rest and on exertion supportive care with NSS at 80cc/hr, Imodium for diarrhea, Codeine for the cough Zinc 220mg daily no need for dexamethasone as he is not hypoxic, 98% room air monitor closely for any desaturation, if he drops below 94% then can start on dexamethasone at risk of worsening infection given his immunosuppressant medications (2) Dehydration: diarrhea and poor oral intake for several days, dry mucous membranes Cr stable at 2.2 hydrate with NSS 80cc/hr hold Lasix and Losartan (3) Chronic renal insufficiency: Cr is 2.2, close to baseline of 2.1 electrolytes stable repeat in the morning NSS at 80cc/hr consult Dr. Pablo to follow given his history of renal transplant (4) Renal transplant recipient: living donor, 2019 in [place] Cr is 2.2 continue cyclosporine, mycophenolate, Prednisone 5mg (5) Neuropathy: Gabapentin (6) Hypertension: BP elevated at 140 hold Losartan due to dehydration (7) GERD (gastroesophageal reflux disease): PPI History of Present Illness Chief Complaint: I feel short of breath, can't take it Primary Care Provider: Davion Pablo MD 59 yo male with history of ESRD, s/p renal transplant from living donor in 2019, presents to the ED with worsening fatigue, dehydration and dyspnea related to CO VID 19 infection. He had a positive test on 08/19 but this was actually just a screening test for hernia repair surgery. He had a mild runny nose at that time but nothing that he was concerned about, he was surprised when he tested positive. Over the past 8 days he has developed fevers/chills, rigors, malaise, diarrhea, nausea, poor oral intake, cough that is non-productive and finally started to get short of breath. He has not been taking his Lasix the past week due to dehydration. He says he is short of breath at rest and he cannot really do any type of activity because his breathing gets so bad. In the ED he was not hypoxic, he is 98-99% on room air. CXR with some subtle infiltrates but nothing severe. No fever, hypertensive, HR normal. WBC slightly low, Hb 10.8, Cr 2.2, K normal, INR 1.8, LDH 409, CRP 4.3, procalcitonin < 0.05. He was given albuterol and NSS in the ED and admission requested due to dehydration, weakness, dyspnea and potential to get worse with his immunocompromised status with renal transplant on cyclosporine, Prednisone, mycophenolate mofetil. Allergies Allergy/AdvReac Type Severity Reaction Status Date / Time allopurinol Allergy Unknown Rash Verified 08/05/20 11:13 Penicillins Allergy Unknown Unknown Verified 08/17/20 15:43 Home Medications Medication Instructions Recorded Confirmed Type aspirin 81 mg tablet,delayed 81 mg PO QAM 04/24/19 08/28/20 History release cholecalciferol (vitamin D3) 25 1,000 units PO QAM 04/24/19 08/28/20 History mcg (1,000 unit) capsule docusate sodium 100 mg capsule 100 mg PO BID PRN 04/24/19 08/28/20 History multivitamin 1 tab PO QAM 04/24/19 08/28/20 History tamsulosin 0.4 mg capsule 0.4 mg PO HS 04/24/19 08/28/20 History prednisone 5 mg tablet 5 mg PO QAM tab 05/29/19 08/28/20 History sodium di- and 2 tab PO TID tab 05/29/19 08/28/20 History monophosphate-potassium phos monobasic 250 mg tablet magnesium oxide 800 mg PO TID cap 01/11/20 08/28/20 History mycophenolate mofetil 250 mg 1,000 mg PO BID cap 02/20/20 08/28/20 History capsule febuxostat 80 mg tablet 80 mg PO QAM 03/06/20 08/28/20 History cyclosporine 100 mg capsule 200 mg PO BID cap 03/19/20 08/28/20 History furosemide 40 mg tablet 60 mg PO QAM #120 tab 05/09/20 08/28/20 Rx omeprazole 40 mg capsule,delayed 40 mg PO QAM #90 cap 05/09/20 08/28/20 Rx release warfarin 5 mg tablet 5 mg PO .COMPLEX #180 tab 05/09/20 08/28/20 Rx gabapentin 300 mg capsule 900 mg PO HS #270 cap 06/14/20 08/28/20 Rx simvastatin 40 mg tablet 40 mg PO HS #90 tab 06/17/20 08/28/20 Rx duloxetine 20 mg capsule,delayed 20 mg PO QAM #90 cap 06/20/20 08/28/20 Rx release gabapentin [Neurontin] 600 mg PO DIRECTED 08/17/20 08/28/20 History losartan 100 mg PO QAM 08/17/20 08/28/20 History ciprofloxacin HCl 500 mg tablet 500 mg PO BID #42 tab 08/22/20 08/28/20 Rx Past Med/Surg History Medical History AV fistula LEFT WRIST> NO DIALYSIS CURRENTLY> FISTULA STILL WORKS PER PT BPH (benign prostatic hyperplasia) DVT (deep venous thrombosis) Right- 04/2019 following transplant > Coumadin S/P LEFT LEG SURGERY (EXCISION OF MELANOMA LEFT LEG) 10 YEARS AGO. End stage renal disease follows Dr. 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 Chronic renal insufficiency s/p renal transplant - follows with nephro Per 07/17/20 surgeon note: "His transplant surgeons have cleared him to have this (hernia) repaired." GERD (gastroesophageal reflux disease) Gout History of malignant melanoma of skin Hyperlipidemia Hypertension Sarcoidosis Sleep apnea CPAP Surgical History H/O colonoscopy History of cardiac cath 01/2018 > [facility] > NO STENTS History of melanoma excision left calf History of tonsillectomy History of tooth extraction Kidney transplanted APR 04, 2019 > [facility] > right side Family History Mother Stroke Heart disease Grandmother Cancer Other Lung disease Social History Smoking Status: Never smoker Second Hand Exposure: No; Hx Alcohol Use: No Hx Substance Use: No Preferred Language: Azeri Communication Ability: Effective Replanting 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 Crew Required: No Beliefs That Will Affect Care: None marital status: Current Living Situation: Spouse Current Living Situation Comment: sister and son as well current occupational status: employed current occupation: [employer] How many Children do You have: 1 Feels Safe at Home: Yes Assistive Devices: Glasses Review of Systems Review of Systems: All systems reviewed & are unremarkable except as noted in HPI & below Constitutional: + fever, + chills, + sweats, + fatigue, + malaise, + weakness and + weight loss Respiratory: + cough, + dyspnea, + dyspnea on exertion and + pain with cough (in abdomen); no sputum production Cardiovascular: no chest pain and no edema Gastrointestinal: + nausea and + diarrhea/loose stools; no abdominal pain, no vomiting, no constipation, no blood in stools and no melena Genitourinary: no dysuria and no urinary frequency Musculoskeletal: + muscle weakness; no back pain, no neck pain and no joint pain Integumentary: no rash Physical Exam Constitutional: well developed, + ill appearing and + obese; no acute distress and + not appropriately hydrated Eyes: PERRL, conjunctivae normal, anicteric sclerae ENMT: Mouth: + dry oral mucous membranes Neck: trachea midline, no thyromegaly Respiratory: + cough and + tachypneic; no respiratory distress, no labored breathing and does not use accessory muscles Auscultation: lungs clear to auscultation bilaterally Cardiovascular: RRR, no murmur, no edema Extremities: + AV fistula Gastrointestinal (Abdomen): normal bowel sounds, soft, nontender, no hepatosplenomegaly Musculoskeletal: no cyanosis or clubbing, extremities motor strength 5/5 Skin: no rashes, warm and dry Neurologic: patellar DTR's 2+ bilat, sensation intact and PERRL, EOMI, accommodation nl, no face palsy, no dysarthria Psychiatric: A+Ox3, euthymic affect Lymphatic: no cervical or axillary lymphadenopathy Results & Data Results & Data ([facility]) Vital Signs (Past 12 Hours) Vital Signs Temp Pulse Pulse Resp BP BP Pulse Ox 08/28/20 12:21 98 08/28/20 12:10 87 20 143/93 H 98 08/28/20 11:17 37.2 C 82 20 184/103 H 98 Laboratory Results Laboratory Results - last 24 hr 08/28/20 08/28/20 08/28/20 11:58 11:58 11:58 WBC 4.24 L RBC 3.71 L Hgb 10.8 L Hct 33.2 L MCV 89.5 MCH 29.1 MCHC 32.5 RDW Std Deviation 47.8 H RDW Coeff of Theresa 14.5 Plt Count 161 MPV 10.8 H Immature Gran % (Auto) 1.2 Neut % (Auto) 85.9 Lymph % (Auto) 5.7 [place] % (Auto) 6.8 Eos % (Auto) 0.2 Baso % (Auto) 0.2 Neut # (Auto) 3.64 Lymph # (Auto) 0.24 L [place] # (Auto) 0.29 Eos # (Auto) 0.01 Baso # (Auto) 0.01 Immature Gran # (Auto) 0.05 H ESR PT 17.1 H INR 1.8 H APTT 42.8 H PTT Ratio 1.6 Sodium 134 L Potassium 4.3 Chloride 105 Carbon Dioxide 23 Anion Gap 6.0 BUN 27 H Creatinine 2.24 H Est Cr Clr Drug Dosing 51.7 Est GFR ( Amer) 36.1 Est GFR (Non-Af Amer) 31.2 BUN/Creatinine Ratio 12.0 Glucose 88 Lactate Calcium 8.8 Magnesium 1.8 Ferritin 139.3 Total Bilirubin 1.0 AST 41 H ALT 25 Alkaline Phosphatase 75 Lactate Dehydrogenase Total Creatine Kinase 143 CK-MB (CK-2) < 1.0 CK/CKMB % Calc TNP Troponin I < 0.015 C-Reactive Protein 4.37 H NT-Pro-B Natriuret Pep Total Protein 6.9 Albumin 3.6 Globulin 3.3 Albumin/Globulin Ratio 1.1 Procalcitonin Blood Type Antibody Screen 08/28/20 08/28/20 08/28/20 11:58 11:58 11:58 WBC RBC Hgb Hct MCV MCH MCHC RDW Std Deviation RDW Coeff of Theresa Plt Count MPV Immature Gran % (Auto) Neut % (Auto) Lymph % (Auto) [place] % (Auto) Eos % (Auto) Baso % (Auto) Neut # (Auto) Lymph # (Auto) [place] # (Auto) Eos # (Auto) Baso # (Auto) Immature Gran # (Auto) ESR 47 H PT INR APTT PTT Ratio Sodium Potassium Chloride Carbon Dioxide Anion Gap BUN Creatinine Est Cr Clr Drug Dosing Est GFR ( Amer) Est GFR (Non-Af Amer) BUN/Creatinine Ratio Glucose Lactate Calcium Magnesium Ferritin Total Bilirubin AST ALT Alkaline Phosphatase Lactate Dehydrogenase 409 H Total Creatine Kinase CK-MB (CK-2) CK/CKMB % Calc Troponin I C-Reactive Protein NT-Pro-B Natriuret Pep Total Protein Albumin Globulin Albumin/Globulin Ratio Procalcitonin < 0.05 Blood Type Antibody Screen 08/28/20 08/28/20 08/28/20 11:58 11:58 12:07 WBC RBC Hgb Hct MCV MCH MCHC RDW Std Deviation RDW Coeff of Theresa Plt Count MPV Immature Gran % (Auto) Neut % (Auto) Lymph % (Auto) [place] % (Auto) Eos % (Auto) Baso % (Auto) Neut # (Auto) Lymph # (Auto) [place] # (Auto) Eos # (Auto) Baso # (Auto) Immature Gran # (Auto) ESR PT INR APTT PTT Ratio Sodium Potassium Chloride Carbon Dioxide Anion Gap BUN Creatinine Est Cr Clr Drug Dosing Est GFR ( Amer) Est GFR (Non-Af Amer) BUN/Creatinine Ratio Glucose Lactate 0.7 Calcium Magnesium Ferritin Total Bilirubin AST ALT Alkaline Phosphatase Lactate Dehydrogenase Total Creatine Kinase CK-MB (CK-2) CK/CKMB % Calc Troponin I C-Reactive Protein NT-Pro-B Natriuret Pep 391 Total Protein Albumin Globulin Albumin/Globulin Ratio Procalcitonin Blood Type A Positive Antibody Screen NEGATIVE Diagnostic Findings SINGLE VIEW CHEST CLINICAL HISTORY: Sepsis. FINDINGS: An AP, portable, upright chest radiograph is compared to study dated 01/28/2020. Correlation is made with chest CT dated 11/25/2017. The examination is degraded by portable technique and apical lordotic positioning. The heart is enlarged noting atherosclerotic calcification of the thoracic aorta. There is pulmonary vascular congestion. Chronic interstitial thickening and nodularity is similar to previous. There are calcified mediastinal and hilar lymph nodes. Mild interstitial airspace opacities are seen throughout both lungs. No large pleural effusion or pneumothorax is seen. The skeletal structures appear o steopenic. The bony thorax is grossly intact. Degenerative change and scoliosis is seen in the thoracic spine. IMPRESSION: 1. Cardiomegaly with evidence of congestive failure. 2. There is residual airspace opacities are seen throughout both lungs. This could represent pulmonary edema and/or an infectious/inflammatory pneumonitis. Clinical correlation will be required. Code Status & VTE Plan VTE Prophylaxis Plan VTE Prophylaxis will be ordered: Yes PG Care Time/CCT Total # of Minutes Spent Total Time Spent with Patient: Total time spent is greater than 50% in coordination of care (as documented) at patient's floor/unit and/or counseling patient: Coding Level of Care Code 00357 Initial Inpt Care Lvl 3 Diagnoses COVID-19 virus infection U07.1 Dehydration E86.0 Chronic renal insufficiency N18.9 Renal transplant recipient Z94.0 Neuropathy G62.9 Hypertension I10 Hypertension type: essential hypertension GERD (gastroesophageal reflux disease) K21.9 (1) Hypertension Hypertension type: essential hypertension Qualified Code(s): I10 - Essential (primary) hypertension
[2020-08-28] MEDS ORDERED: LOPERAMIDE HCL 2 MG CAP PO PRN (14:35)
[2020-08-28] MEDS ORDERED: POLYETHYLENE (MIRALAX) 17 GM PACK PO PRN (14:35)
[2020-08-28] MEDS ORDERED: ONDANSETRON INJ 2 MG/ML 2 ML VIAL IV PRN (14:35)
[2020-08-28] MEDS ORDERED: ACETAMINOPHEN 325 MG TAB PO PRN (14:35)
[2020-08-28] MEDS ORDERED: DOCUSATE SODIUM 100 MG CAP PO PRN (14:35)
[2020-08-28] MEDS: SODIUM CHLORIDE 0.9% 1000ML 1,000 ML IV SCH (14:53)
--- NOTE | 2020-08-28 14:53 | Electrocardiogram Report ---
Test Reason : Blood Pressure : / mmHG Vent. Rate : 077 BPM Atrial Rate : 077 BPM P-R Int : 156 ms QRS Dur : 110 ms QT Int : 382 ms P-R-T Axes : 022 -45 034 degrees QTc Int : 432 ms Normal sinus rhythm Left axis deviation Abnormal ECG When compared with ECG of 28-JAN-2020 16:07, Minimal criteria for Anterior infarct are no longer Present Confirmed by Vinicius Yeager ([id number]) on 08/28/2020 2:53:11 PM Referred By: REFERRED SELF Confirmed By:Vinicius Yeager
[2020-08-28] MEDS ORDERED: WARFARIN SOD 10 MG TAB PO SCH (16:00)
[2020-08-28 16:11] LABS: Appearance Urine Clear (Clear); Bacteria Urine Automated Negative (Negative); Bilirubin Urine Negative (Negative); Blood Urine Negative (Negative); Cast Urine Automated 0 /lpf (0-5); Color Urine Yellow; Glucose Urine UA Negative (Negative); Ketones Urine Trace (Negative); Leukocyte Esterase Urine Negative (Negative); Nitrite Urine Negative (Negative); Protein Urine 2+ (Negative); RBC Urine Automated 0-4 /hpf (0-4); Specific Gravity Urine 1.014 (1.000-1.030); Urobilinogen Urine Negative (Negative); WBC Urine Automated 0 /hpf (0-5)
[2020-08-28] MEDS: POT PHOSPHATE MONOBASIC W/ SOD TAB PO SCH ×2 (16:18→21:00)
[2020-08-28] MEDS: GABAPENTIN 600 MG TAB PO SCH (16:19)
[2020-08-28] MEDS: MAGNESIUM OXIDE 400 MG TAB PO SCH ×2 (16:28→21:06)
[2020-08-28] MEDS: MYCOPHENOLATE MOFETIL 250 MG CAP PO SCH (20:59)
[2020-08-28] MEDS ORDERED: CIPROFLOXACIN 500 MG TAB PO SCH (21:00)
[2020-08-28] MEDS: GABAPENTIN 300 MG CAP PO SCH (21:00)
[2020-08-28] MEDS ORDERED: SIMVASTATIN 40 MG TAB PO SCH (21:00)
[2020-08-28] MEDS: TAMSULOSIN HCL 0.4 MG CAP PO SCH (21:00)
[2020-08-28] MEDS: cycloSPORINE 100 MG CAP PO SCH (22:24)
[2020-08-29] MEDS: SODIUM CHLORIDE 0.9% 1000ML 1,000 ML IV SCH ×2 (03:56→15:47)
[2020-08-29 08:14] LABS: INR 1.8 (0.9-1.1); Prothrombin Time 17.5 Seconds (9.0-12.0)
[2020-08-29] MEDS: GABAPENTIN 600 MG TAB PO SCH ×2 (09:24→13:50)
[2020-08-29] MEDS: FEBUXOSTAT 40 MG TABLET PO SCH (09:26)
[2020-08-29] MEDS: MULTIVITAMIN TAB PO SCH (09:27)
[2020-08-29] MEDS: DULoxetine HCL 20 MG CAP PO SCH (09:27)
[2020-08-29] MEDS: POT PHOSPHATE MONOBASIC W/ SOD TAB PO SCH ×3 (09:27→20:36)
[2020-08-29] MEDS: PANTOprazole 40 MG TAB PO SCH (09:27)
[2020-08-29] MEDS: ASPIRIN 81 MG ECTAB PO SCH (09:27)
[2020-08-29] MEDS: MYCOPHENOLATE MOFETIL 250 MG CAP PO SCH ×2 (09:27→20:37)
[2020-08-29] MEDS: predniSONE 5 MG TAB PO SCH (09:27)
[2020-08-29] MEDS: cycloSPORINE 100 MG CAP PO SCH ×2 (09:28→20:36)
[2020-08-29] MEDS: CHOLECALCIFEROL 1,000 UNITS 25 MCG TAB PO SCH (09:28)
[2020-08-29] MEDS: MAGNESIUM OXIDE 400 MG TAB PO SCH ×3 (10:08→20:36)
[2020-08-29] MEDS ORDERED: cephALEXin 500 MG CAP PO SCH (10:45)
--- NOTE | 2020-08-29 12:31 | Nephrology Consultation ---
Date of Consultation August 29, 2020 Assessment & Plan (1) COVID-19 virus infection: Clinically stable. Not requiring supplemental O2. Dexamethasone deferred at this time. Management per hospitalist team. If clinical improvement is not seen, it would be reasonable to hold mycophenolate. (2) Renal transplant recipient: Continue cyclosporine, mycophenolate, Prednisone 5mg. Creatinine ~2.2 mg/dL consistent with baseline. BP acceptable. Volume status reasonable. Medications appropriate for kidney function. No changes at this time. Diuretics held and IV saline provided to encourage slightly positive fluid balance. (3) Hypertension: BP acceptable. Losartan held. Will monitor. History of Present Illness Reason for Consultation: Kidney transplant Requesting Physician: Mega Flores DO Attending Physician: Mega Flores DO History of Present Illness Mr. 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 Kidney function replaced with a functioning living unrelated donor allograft. Baseline creatinine ~2.2 mg/dL. Kirby follows in the nephrology clinic with Dr. Pablo. He was recently evaluated in the clinic last month. Medical history alos notable for obesity, hypertension, hypercholesterolemia, gout, obstructive sleep apnea, history of sarcoidosis, and venous insufficiency. In early 2018, Kirby developed end-stage renal disease and started maintenance dialysis. On April 04, 2019 he received a living unrelated donor transplant. THe did remarkably well with a serum creatinine dropping to about 1.1 mg/dL. His immunosuppression was initially mycophenolate mofetil and belatocept. In October of 2019, he developed a DVT in the left leg. Not long after, he was recognized as having bilateral lower extremity edema and significant proteinuria. His urine protein excretion was about 9 g a day. A renal biopsy of his transplanted kidney demonstrated focal segmental glomerulosclerosis. Immunofluorescence was unremarkable treated he has been treated with tapering doses of corticosteroids as well as plasmapheresis although that did nothing to change his status. Belatocept was discontinued in favor of cyclosporin 200 mg taken twice daily. Additionally, losartan was added back to his regimen as an antihypertensive and to try to minimize his proteinuria. Continues to significant proteinuria based on an elevated urine protein to creatinine ratio. However his edema has resolved and he shows no evidence of nephrosis at the current time. His blood pressure has been treated not only with losartan but also with amlodipine 5 mg b.i.d.. He is also taking furosemide 60 mg each morning. His serum creatinine has been stable recently at 2.0 mg/dL. Has a history of a peripheral neuropathy for which he has required large doses of gabapentin. Kirby recently test COVID + while asymptomatic during preoperative assessment (Saturday 08/19). He had the first dose of his COVID vaccine on 08/17. He was planning to undergo hernia repair. A few days ago, he developed dyspnea at rest and activity limiting FERMIN. His has also had symptoms and tested positive. Kirby was admitted with symptoms. CXR demonstrating some interstitial changes and edema. Appetite has been poor. Mild GI symptoms with persistent loose stool reported. I spoke to Kirby by phone today. Allergies Allergy/AdvReac Type Severity Reaction Status Date / Time allopurinol Allergy Unknown Rash Verified 08/29/20 10:43 Penicillins Allergy Unknown Unknown Verified 08/29/20 10:43 Home Medications Medication Instructions Recorded Confirmed Type aspirin 81 mg tablet,delayed 81 mg PO QAM 04/24/19 08/28/20 History release cholecalciferol (vitamin D3) 25 1,000 units PO QAM 04/24/19 08/28/20 History mcg (1,000 unit) capsule docusate sodium 100 mg capsule 100 mg PO BID PRN 04/24/19 08/28/20 History multivitamin 1 tab PO QAM 04/24/19 08/28/20 History tamsulosin 0.4 mg capsule 0.4 mg PO HS 04/24/19 08/28/20 History prednisone 5 mg tablet 5 mg PO QAM tab 05/29/19 08/28/20 History sodium di- and 2 tab PO TID tab 05/29/19 08/28/20 History monophosphate-potassium phos monobasic 250 mg tablet magnesium oxide 800 mg PO TID cap 01/11/20 08/28/20 History mycophenolate mofetil 250 mg 1,000 mg PO BID cap 02/20/20 08/28/20 History capsule febuxostat 80 mg tablet 80 mg PO QAM 03/06/20 08/28/20 History cyclosporine 100 mg capsule 200 mg PO BID cap 03/19/20 08/28/20 History furosemide 40 mg tablet 60 mg PO QAM #120 tab 05/09/20 08/28/20 Rx omeprazole 40 mg capsule,delayed 40 mg PO QAM #90 cap 05/09/20 08/28/20 Rx release warfarin 5 mg tablet 5 mg PO .COMPLEX #180 tab 05/09/20 08/28/20 Rx gabapentin 300 mg capsule 900 mg PO HS #270 cap 06/14/20 08/28/20 Rx simvastatin 40 mg tablet 40 mg PO HS #90 tab 06/17/20 08/28/20 Rx duloxetine 20 mg capsule,delayed 20 mg PO QAM #90 cap 06/20/20 08/28/20 Rx release gabapentin [Neurontin] 600 mg PO DIRECTED 08/17/20 08/28/20 History losartan 100 mg PO QAM 08/17/20 08/28/20 History ciprofloxacin HCl 500 mg tablet 500 mg PO BID #42 tab 08/22/20 08/28/20 Rx Patient History Medical History AV fistula LEFT WRIST> NO DIALYSIS CURRENTLY> [facility] STILL WORKS PER PT BPH (benign prostatic hyperplasia) DVT (deep venous thrombosis) Right- 04/2019 following transplant > Coumadin S/P LEFT LEG SURGERY (EXCISION OF MELANOMA LEFT LEG) 10 YEARS AGO. End stage renal disease follows Dr. 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 Chronic renal insufficiency s/p renal transplant - follows with nephro Per 07/17/20 surgeon note: "His transplant surgeons have cleared him to have this (hernia) repaired." GERD (gastroesophageal reflux disease) Gout History of malignant melanoma of skin Hyperlipidemia Hypertension Sarcoidosis Sleep apnea CPAP Surgical History H/O colonoscopy History of cardiac cath 01/2018 > [facility] > NO STENTS History of melanoma excision left calf History of tonsillectomy History of tooth extraction Kidney transplanted APR 04, 2019 > [facility] > right side Family History Mother Stroke Heart disease Grandmother Cancer Other Lung disease Social History Smoking Status: Never smoker Second Hand Exposure: No; Hx Alcohol Use: No Hx Substance Use: No Preferred Language: Guyanese Communication Ability: Effective Music Pastor Required: No Beliefs That Will Affect Care: None marital status: Current Living Situation: Spouse Current Living Situation Comment: sister and son as well current occupational status: employed current occupation: [employer] How many Children do You have: 1 Feels Safe at Home: Yes Assistive Devices: None Review of Systems Review of Systems: All systems reviewed & are unremarkable except as noted in HPI & below Physical Exam Physical Exam: Deferred due to COVID 19 pandemic Results & Data ([facility]) Vital Signs (Past 12 Hours) Vital Signs Temp Pulse Resp BP Pulse Ox 08/29/20 08:10 37.5 C 74 22 131/76 96 08/29/20 04:27 36.6 C 80 16 170/98 H 94 08/29/20 00:06 37.8 C H 85 16 134/84 93 Laboratory Results Laboratory Results - last 24 hr 08/28/20 08/28/20 08/28/20 11:58 11:58 11:58 ESR 47 H PT INR Sodium 134 L Potassium 4.3 Chloride 105 Carbon Dioxide 23 Anion Gap 6.0 BUN 27 H Creatinine 2.24 H Est Cr Clr Drug Dosing 51.7 Est GFR ( Amer) 36.1 Est GFR (Non-Af Amer) 31.2 BUN/Creatinine Ratio 12.0 Glucose 88 Lactate Calcium 8.8 Magnesium 1.8 Ferritin 139.3 Total Bilirubin 1.0 AST 41 H ALT 25 Alkaline Phosphatase 75 Lactate Dehydrogenase Total Creatine Kinase 143 CK-MB (CK-2) < 1.0 CK/CKMB % Calc TNP Troponin I < 0.015 C-Reactive Protein 4.37 H NT-Pro-B Natriuret Pep Total Protein 6.9 Albumin 3.6 Globulin 3.3 Albumin/Globulin Ratio 1.1 Procalcitonin < 0.05 Random Cortisol Urine Color Urine Appearance Urine pH Ur Specific [place] Urine Protein Urine Glucose (UA) Urine Ketones Urine Blood Urine Nitrite Urine Bilirubin Urine Urobilinogen Ur Leukocyte Esterase Urine WBC (Auto) Urine RBC (Auto) U Hyaline Cast (Auto) U Epithel Cells (Auto) Urine Bacteria (Auto) Blood Type Antibody Screen 08/28/20 08/28/20 08/28/20 11:58 11:58 11:58 ESR PT INR Sodium Potassium Chloride Carbon Dioxide Anion Gap BUN Creatinine Est Cr Clr Drug Dosing Est GFR ( Amer) Est GFR (Non-Af Amer) BUN/Creatinine Ratio Glucose Lactate Calcium Magnesium Ferritin Total Bilirubin AST ALT Alkaline Phosphatase Lactate Dehydrogenase 409 H Total Creatine Kinase CK-MB (CK-2) CK/CKMB % Calc Troponin I C-Reactive Protein NT-Pro-B Natriuret Pep 391 Total Protein Albumin Globulin Albumin/Globulin Ratio Procalcitonin Random Cortisol Urine Color Urine Appearance Urine pH Ur Specific [place] Urine Protein Urine Glucose (UA) Urine Ketones Urine Blood Urine Nitrite Urine Bilirubin Urine Urobilinogen Ur Leukocyte Esterase Urine WBC (Auto) Urine RBC (Auto) U Hyaline Cast (Auto) U Epithel Cells (Auto) Urine Bacteria (Auto) Blood Type A Positive Antibody Screen NEGATIVE 08/28/20 08/28/20 08/29/20 12:07 Unknown 07:06 ESR PT 17.5 H INR 1.8 H Sodium Potassium Chloride Carbon Dioxide Anion Gap BUN Creatinine Est Cr Clr Drug Dosing Est GFR ( Amer) Est GFR (Non-Af Amer) BUN/Creatinine Ratio Glucose Lactate 0.7 Calcium Magnesium Ferritin Total Bilirubin AST ALT Alkaline Phosphatase Lactate Dehydrogenase Total Creatine Kinase CK-MB (CK-2) CK/CKMB % Calc Troponin I C-Reactive Protein NT-Pro-B Natriuret Pep Total Protein Albumin Globulin Albumin/Globulin Ratio Procalcitonin Random Cortisol Urine Color Yellow Urine Appearance Clear Urine pH 7.0 Ur Specific [place] 1.014 Urine Protein 2+ H Urine Glucose (UA) Negative Urine Ketones Trace H Urine Blood Negative Urine Nitrite Negative Urine Bilirubin Negative Urine Urobilinogen Negative Ur Leukocyte Esterase Negative Urine WBC (Auto) 0 Urine RBC (Auto) 0-4 U Hyaline Cast (Auto) 0 U Epithel Cells (Auto) 5-10 H Urine Bacteria (Auto) Negative Blood Type Antibody Screen 08/29/20 07:12 ESR PT INR Sodium Potassium Chloride Carbon Dioxide Anion Gap BUN Creatinine Est Cr Clr Drug Dosing Est GFR ( Amer) Est GFR (Non-Af Amer) BUN/Creatinine Ratio Glucose Lactate Calcium Magnesium Ferritin Total Bilirubin AST ALT Alkaline Phosphatase Lactate Dehydrogenase Total Creatine Kinase CK-MB (CK-2) CK/CKMB % Calc Troponin I C-Reactive Protein NT-Pro-B Natriuret Pep Total Protein Albumin Globulin Albumin/Globulin Ratio Procalcitonin Random Cortisol 15.99 Urine Color Urine Appearance Urine pH Ur Specific [place] Urine Protein Urine Glucose (UA) Urine Ketones Urine Blood Urine Nitrite Urine Bilirubin Urine Urobilinogen Ur Leukocyte Esterase Urine WBC (Auto) Urine RBC (Auto) U Hyaline Cast (Auto) U Epithel Cells (Auto) Urine Bacteria (Auto) Blood Type Antibody Screen PG Care Time/CCT Total # of Minutes Spent Total Time Spent with Patient: Total time spent is greater than 50% in coordination of care (as documented) at patient's floor/unit and/or counseling patient: Coding Level of Care Code 28165 Inpt Consult Level 3 Diagnoses COVID-19 virus infection U07.1 Renal transplant recipient Z94.0 Hypertension I10 Hypertension type: essential hypertension (1) Hypertension Hypertension type: essential hypertension Qualified Code(s): I10 - Essential (primary) hypertension
[2020-08-29] MEDS: cefTRIAXone SODIUM 2,000 MG in DEXTROSE 5% 50 ML IV SCH (12:34)
[2020-08-29 13:32] LABS: Hematocrit (blood only) 30.9 % (42-52); Mean Corpuscular Hemoglobin 29.1 pg (25-34); Mean Corpuscular Hgb Conc 32.4 g/dL (32-36); Mean Corpuscular Volume 89.8 fL (80-100); Mean Platelet Volume 10.7 fL (7.4-10.4); Platelet Count 168 K/uL (130-400); RDW Coefficient of Variation 14.7 % (11.5-14.5); RDW Standard Deviation 48.4 fL (36.4-46.3); Red Blood Count 3.44 M/uL (4.7-6.1); White Blood Count 3.38 K/uL (4.8-10.8)
[2020-08-29 13:53] LABS: BUN Creatinine Ratio 11.5 (10-20); Calcium 8.4 mg/dl (8.5-10.1); Creatinine Clr Calc Pharmacy 52.7 ml/min; Est GFR (African American) 37.3; Est GFR (Non-African American) 32.2; Magnesium 1.8 mg/dl (1.8-2.4); Phosphorus 2.8 mg/dl (2.5-4.9); Potassium 4.6 mmol/L (3.5-5.1)
[2020-08-29] MEDS ORDERED: WARFARIN SOD 7.5 MG TAB PO SCH (16:00)
--- NOTE | 2020-08-29 17:00 | Emergency Department Note ---
Impression & Plan COVID-19 virus infection, Dehydration, Immunocompromised ED Provider Note NAME: NAN MONTE AGE: 59 SEX: M : 1960 ARRIVES VIA: Walk-In INFORMANT: Patient, ED PROVIDER(S): Srikanth Lazar MD CHIEF COMPLAINT: Shortness of breath HPI: This is a 59-year-old male who has had a recent diagnosis of Covid pn eumonia approximately 7 days ago. The patient reports he has become increasingly short of breath anytime he moves. He reports rest allows him to catch his breath. He is also been having diarrhea. He has not been using anything for the shortness of breath including inhalers at home. The patient does have a history of kidney transplant. He was sent in by his primary care physician today. ROS: See above HPI for pertinent positives & negatives. A total of 10 systems reviewed and were otherwise negative. PAST MEDICAL HISTORY: See Below PAST SURGICAL HISTORY: See Below FAMILY HISTORY: See Below SOCIAL HISTORY: See Below HOME MEDICATIONS: See Below ALLERGIES: See Below VITALS: See Below PHYSICAL EXAMINATION: VITAL SIGNS - Vital signs and nursing notes were reviewed. GENERAL - 59-year-old male with trip to appearing stated age who is in no acute distress. Communicates well with provider and answers questions appropriately. SKIN - Without rashes. HEAD - NC/AT. EYES - PERRL with EOMI bilaterally. Sclera anicteric. Palpebral conjunctiva pink and moist with no injection noted. EARS - No deformities of external structures noted on gross examination bila terally. NOSE - Midline and without cyanosis. No epistaxis or purulent drainage noted. Septum midline without deviation or septal hematoma noted. MOUTH/OROPHARYNX - Without perioral cyanosis. Buccal mucosa pink and moist and without leukoplakia. Tongue midline with equal elevation of palate bilaterally. No tonsillar hypertrophy, erythema, or exudates noted. dentition noted. NECK - Neck with FROM. Supple to palpation. lymphadenopathy noted. No nuchal rigidity. LUNGS - Chest wall symmetric without accessory muscle use, intercostals retractions, or central cyanosis. Normal vesicular breath sounds CTA B/L. No wheezes, rales, or rhonchi appreciated. CARDIAC - RRR with S1/S2. No murmur, rubs, or gallops appreciated. ABDOMEN - Abdominal contour without pulsations or visible masses. BS normoactive all four quadrants. No tenderness, palpable masses, hepatosplenomegaly, or ascites noted. EXTREMITIES - No clubbing or peripheral cyanosis. No pretibial edema present. +3/5 radial, posterior tibial, and dorsalis pedis pulses palpated throughout. +5/5 strength noted in UE/LE bilaterally. NEUROLOGIC - Cranial nerves II through XII grossly intact. Sensory intact to light touch throughout. Patellar reflexes +2/4. PSYCH - A&Ox3 and cooperates fully with examiner. Pt is very pleasant and interacts well with examiner. MEDICAL DECISION MAKING: Patient was seen and evaluated as above in room A4. Review was performed of nursing notes and vital signs. I did review pertinent previous visits and patient history. After obtaining a thorough history and physical examination the above work up was performed. This 59-year-old male who presents emergency department complaining of shortness of breath. Patient's chest x-ray is concerning for Covid pneumonia. Due to the patient's many risk factors I do feel he should be admitted to the hospital. Patient was typed and screened started on Decadron here in the emergency department. I did discuss the case with the hospitalist service who did agree to admit the patient. Patient is in agreement with the treatment plan. He does not have an elevation in his white blood cell count kidney function appears to be where it normally is. An order was placed for continuous cardiac monitoring. The monitor shows a rate of 70 with Normal SInus rhythm. The patient was evaluated during a period of high volume and high acuity during the global COVID-19 pandemic, and that diagnosis was suspected/considered upon their initial presentation. Their evaluation, treatment and testing was consistent with current guidelines for patients who present with complaints or symptoms that may be related to COVID-19. Patient was seen while provider was wearing PPE. Triage Nursing notes reviewed. Prior medical records reviewed Vital Signs: reviewed and remarkable for no significant abnormalities Differential diagnosis: Reactive airway disease, pneumonia, pneumothorax, COPD, CHF, infections, cardiac ischemia, pulmonary embolism, musculoskeletal, gastrointestinal, as well as other pathologies. ER treatment provided: See below Diagnostics interpreted by me: ECG: EKG shows a normal sinus rhythm left axis deviation QTC is 432 ventricular rate of 77 EKG is compared to 01/28/2020 no changes noted. Laboratory studies: As stated above and show below. Imaging studies: See below Consultation(s): Internal Medicine I have personally spent greater than 30 minutes of critical care time in the direct management of this patient. This includes bedside care, interpretation of diagnostic studies, and testing, discussion with consultants, patient, and family members, and other required patient management activities. This 30 minutes is in excess of all separately billable procedures. Past Med/Surg History Medical History AV fistula LEFT WRIST> NO DIALYSIS CURRENTLY> FISTULA STILL WORKS PER PT BPH (benign prostatic hyperplasia) DVT (deep venous thrombosis) Right- 04/2019 following transplant > Coumadin S/P LEFT LEG SURGERY (EXCISION OF MELANOMA LEFT LEG) 10 YEARS AGO. End stage renal disease follows Dr. 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 Chronic renal insufficiency s/p renal transplant - follows with nephro Per 07/17/20 surgeon note: "His transplant surgeons have cleared him to have this (hernia) repaired." GERD (gastroesophageal reflux disease) Gout History of malignant melanoma of skin Hyperlipidemia Hypertension Sarcoidosis Sleep apnea CPAP Surgical History H/O colonoscopy History of cardiac cath 01/2018 > [facility] > NO STENTS History of melanoma excision left calf History of tonsillectomy History of tooth extraction Kidney transplanted APR 04, 2019 > [facility] > right side Family History Mother Stroke Heart disease Grandmother Cancer Other Lung disease Social History Smoking Status: Never smoker Second Hand Exposure: No; Hx Alcohol Use: No Hx Substance Use: No Preferred Language: Serbian Communication Ability: Effective Tower Supervisor Required: No Beliefs That Will Affect Care: None marital status: Current Living Situation: Spouse Current Living Situation Comment: sister and son as well current occupational status: employed current occupation: [employer] How many Children do You have: 1 Feels Safe at Home: Yes Assistive Devices: None Allergies Allergies Allergy/AdvReac Type Severity Reaction Status Date / Time allopurinol Allergy Unknown Rash Verified 08/29/20 10:43 Penicillins Allergy Unknown Unknown Verified 08/29/20 10:43 Home Meds Home Medications Medication Instructions Recorded Confirmed aspirin 81 mg tablet,delayed 81 mg PO QAM 04/24/19 08/28/20 release cholecalciferol (vitamin D3) 25 1,000 units PO QAM 04/24/19 08/28/20 mcg (1,000 unit) capsule docusate sodium 100 mg capsule 100 mg PO BID PRN 04/24/19 08/28/20 multivitamin 1 tab PO QAM 04/24/19 08/28/20 tamsulosin 0.4 mg capsule 0.4 mg PO HS 04/24/19 08/28/20 prednisone 5 mg tablet 5 mg PO QAM tab 05/29/19 08/28/20 sodium di- and 2 tab PO TID tab 05/29/19 08/28/20 monophosphate-potassium phos monobasic 250 mg tablet magnesium oxide 800 mg PO TID cap 01/11/20 08/28/20 mycophenolate mofetil 250 mg 1,000 mg PO BID cap 02/20/20 08/28/20 capsule febuxostat 80 mg tablet 80 mg PO QAM 03/06/20 08/28/20 cyclosporine 100 mg capsule 200 mg PO BID cap 03/19/20 08/28/20 gabapentin [Neurontin] 600 mg PO DIRECTED 08/17/20 08/28/20 losartan 100 mg PO QAM 08/17/20 08/28/20 Previous Rx's Medication Instructions Recorded furosemide 40 mg tablet 60 mg PO QAM #120 tab 05/09/20 omeprazole 40 mg capsule,delayed 40 mg PO QAM #90 cap 05/09/20 release warfarin 5 mg tablet 5 mg PO .COMPLEX #180 tab 05/09/20 gabapentin 300 mg capsule 900 mg PO HS #270 cap 06/14/20 simvastatin 40 mg tablet 40 mg PO HS #90 tab 06/17/20 duloxetine 20 mg capsule,delayed 20 mg PO QAM #90 cap 06/20/20 release ciprofloxacin HCl 500 mg tablet 500 mg PO BID #42 tab 08/22/20 Results & Data (ED) Home Medications Current Medication List: was personally reviewed by me Laboratory Data Attestation: I reviewed the patient's lab results. Result diagrams: 08/29/20 10:22 08/29/20 10:22 Lab Results 08/28/20 08/28/20 08/28/20 Range/Units 11:58 11:58 11:58 WBC 4.24 L (4.8-10.8) K/uL RBC 3.71 L (4.7-6.1) M/uL Hgb 10.8 L (14.0-18.0) g/dL Hct 33.2 L (42-52) % MCV 89.5 (80-100) fL MCH 29.1 (25-34) pg MCHC 32.5 (32-36) g/dL RDW Std Deviation 47.8 H (36.4-46.3) fL RDW Coeff of Theresa 14.5 (11.5-14.5) % Plt Count 161 (130-400) K/uL MPV 10.8 H (7.4-10.4) fL Immature Gran % (Auto) 1.2 % Neut % (Auto) 85.9 % Lymph % (Auto) 5.7 % Henderson % (Auto) 6.8 % Eos % (Auto) 0.2 % Baso % (Auto) 0.2 % Neut # (Auto) 3.64 (1.4-6.5) K/uL Lymph # (Auto) 0.24 L (1.2-3.4) K/uL Henderson # (Auto) 0.29 (0.11-0.59) K/uL Eos # (Auto) 0.01 (0-0.5) K/uL Baso # (Auto) 0.01 (0-0.2) K/uL Immature Gran # (Auto) 0.05 H (0.00-0.02) K/uL ESR (0-14) mm/hr PT 17.1 H (9.0-12.0) Seconds INR 1.8 H (0.9-1.1) APTT 42.8 H (21.0-31.0) Seconds PTT Ratio 1.6 Sodium 134 L (136-145) mmol/L Potassium 4.3 (3.5-5.1) mmol/L Chloride 105 (98-107) mmol/L Carbon Dioxide 23 (21-32) mmol/L Anion Gap 6.0 (3-11) BUN 27 H (7-18) mg/dl Creatinine 2.24 H (0.6-1.4) mg/dl Est Cr Clr Drug Dosing 51.7 ml/min Est GFR ( Amer) 36.1 Est GFR (Non-Af Amer) 31.2 BUN/Creatinine Ratio 12.0 (10-20) Glucose 88 (70-99) mg/dl Lactate (0.4-2.0) mmol/L Calcium 8.8 (8.5-10.1) mg/dl Magnesium 1.8 (1.8-2.4) mg/dl Ferritin 139.3 (8-388) ng/ml Total Bilirubin 1.0 (0.2-1) mg/dl AST 41 H (15-37) U/L ALT 25 (12-78) U/L Alkaline Phosphatase 75 (45-117) U/L Lactate Dehydrogenase (87-241) U/L Total Creatine Kinase 143 (39-308) U/L CK-MB (CK-2) < 1.0 (0.5-3.6) ng/ml CK/CKMB % Calc TNP Troponin I < 0.015 (0-0.045) ng/ml C-Reactive Protein 4.37 H (0-0.29) mg/dl NT-Pro-B Natriuret Pep (0-900) pg/ml Total Protein 6.9 (6.4-8.2) gm/dl Albumin 3.6 (3.4-5.0) gm/dl Globulin 3.3 (2.5-4.0) gm/dl Albumin/Globulin Ratio 1.1 (0.9-2) Procalcitonin (0-0.5) ng/ml Blood Type Antibody Screen 08/28/20 08/28/20 08/28/20 Range/Units 11:58 11:58 11:58 WBC (4.8-10.8) K/uL RBC (4.7-6.1) M/uL Hgb (14.0-18.0) g/dL Hct (42-52) % MCV (80-100) fL MCH (25-34) pg MCHC (32-36) g/dL RDW Std Deviation (36.4-46.3) fL RDW Coeff of Theresa (11.5-14.5) % Plt Count (130-400) K/uL MPV (7.4-10.4) fL Immature Gran % (Auto) % Neut % (Auto) % Lymph % (Auto) % Henderson % (Auto) % Eos % (Auto) % Baso % (Auto) % Neut # (Auto) (1.4-6.5) K/uL Lymph # (Auto) (1.2-3.4) K/uL Henderson # (Auto) (0.11-0.59) K/uL Eos # (Auto) (0-0.5) K/uL Baso # (Auto) (0-0.2) K/uL Immature Gran # (Auto) (0.00-0.02) K/uL ESR 47 H (0-14) mm/hr PT (9.0-12.0) Seconds INR (0.9-1.1) APTT (21.0-31.0) Seconds PTT Ratio Sodium (136-145) mmol/L Potassium (3.5-5.1) mmol/L Chloride (98-107) mmol/L Carbon Dioxide (21-32) mmol/L Anion Gap (3-11) BUN (7-18) mg/dl Creatinine (0.6-1.4) mg/dl Est Cr Clr Drug Dosing ml/min Est GFR ( Amer) Est GFR (Non-Af Amer) BUN/Creatinine Ratio (10-20) Glucose (70-99) mg/dl Lactate (0.4-2.0) mmol/L Calcium (8.5-10.1) mg/dl Magnesium (1.8-2.4) mg/dl Ferritin (8-388) ng/ml Total Bilirubin (0.2-1) mg/dl AST (15-37) U/L ALT (12-78) U/L Alkaline Phosphatase (45-117) U/L Lactate Dehydrogenase 409 H (87-241) U/L Total Creatine Kinase (39-308) U/L CK-MB (CK-2) (0.5-3.6) ng/ml CK/CKMB % Calc Troponin I (0-0.045) ng/ml C-Reactive Protein (0-0.29) mg/dl NT-Pro-B Natriuret Pep (0-900) pg/ml Total Protein (6.4-8.2) gm/dl Albumin (3.4-5.0) gm/dl Globulin (2.5-4.0) gm/dl Albumin/Globulin Ratio (0.9-2) Procalcitonin < 0.05 (0-0.5) ng/ml Blood Type Antibody Screen 08/28/20 08/28/20 08/28/20 Range/Units 11:58 11:58 12:07 WBC (4.8-10.8) K/uL RBC (4.7-6.1) M/uL Hgb (14.0-18.0) g/dL Hct (42-52) % MCV (80-100) fL MCH (25-34) pg MCHC (32-36) g/dL RDW Std Deviation (36.4-46.3) fL RDW Coeff of Theresa (11.5-14.5) % Plt Count (130-400) K/uL MPV (7.4-10.4) fL Immature Gran % (Auto) % Neut % (Auto) % Lymph % (Auto) % Henderson % (Auto) % Eos % (Auto) % Baso % (Auto) % Neut # (Auto) (1.4-6.5) K/uL Lymph # (Auto) (1.2-3.4) K/uL Henderson # (Auto) (0.11-0.59) K/uL Eos # (Auto) (0-0.5) K/uL Baso # (Auto) (0-0.2) K/uL Immature Gran # (Auto) (0.00-0.02) K/uL ESR (0-14) mm/hr PT (9.0-12.0) Seconds INR (0.9-1.1) APTT (21.0-31.0) Seconds PTT Ratio Sodium (136-145) mmol/L Potassium (3.5-5.1) mmol/L Chloride (98-107) mmol/L Carbon Dioxide (21-32) mmol/L Anion Gap (3-11) BUN (7-18) mg/dl Creatinine (0.6-1.4) mg/dl Est Cr Clr Drug Dosing ml/min Est GFR ( Amer) Est GFR (Non-Af Amer) BUN/Creatinine Ratio (10-20) Glucose (70-99) mg/dl Lactate 0.7 (0.4-2.0) mmol/L Calcium (8.5-10.1) mg/dl Magnesium (1.8-2.4) mg/dl Ferritin (8-388) ng/ml Total Bilirubin (0.2-1) mg/dl AST (15-37) U/L ALT (12-78) U/L Alkaline Phosphatase (45-117) U/L Lactate Dehydrogenase (87-241) U/L Total Creatine Kinase (39-308) U/L CK-MB (CK-2) (0.5-3.6) ng/ml CK/CKMB % Calc Troponin I (0-0.045) ng/ml C-Reactive Protein (0-0.29) mg/dl NT-Pro-B Natriuret Pep 391 (0-900) pg/ml Total Protein (6.4-8.2) gm/dl Albumin (3.4-5.0) gm/dl Globulin (2.5-4.0) gm/dl Albumin/Globulin Ratio (0.9-2) Procalcitonin (0-0.5) ng/ml Blood Type A Positive Antibody Screen NEGATIVE Administered Medications Aspirin (Aspirin 81 Mg Ectab) 81 mg PO [facility] Stop: 09/28/20 08:59 Last Admin: 08/29/20 09:27 Dose: 81 mg Documented by: [id number] Cyclosporine (Cyclosporine 100 Mg Cap) 200 mg PO BID [facility] Stop: 09/27/20 20:59 Last Admin: 08/29/20 09:28 Dose: 200 mg Documented by: [id number] Admin: 08/28/20 22:24 Dose: 200 mg Documented by: [id number] Duloxetine HCl (Duloxetine Hcl 20 Mg Cap) 20 mg PO [facility] Stop: 09/28/20 08:59 Last Admin: 08/29/20 09:27 Dose: 20 mg Documented by: [id number] Febuxostat (Febuxostat 40 Mg Tablet) 80 mg PO [facility] Stop: 09/28/20 08:59 Last Admin: 08/29/20 09:26 Dose: 80 mg Documented by: [id number] Gabapentin (Gabapentin 600 Mg Tab) 600 mg PO BID@0900,1400 [facility] Stop: 09/27/20 15:29 Last Admin: 08/29/20 13:50 Dose: 600 mg Documented by: [id number] Admin: 08/29/20 09:24 Dose: 600 mg Documented by: [id number] Admin: 08/28/20 16:19 Dose: 600 mg Documented by: [id number] Gabapentin (Gabapentin 300 Mg Cap) 900 mg PO HS [facility] Stop: 09/27/20 20:59 Last Admin: 08/28/20 21:00 Dose: 900 mg Documented by: [id number] Guaifenesin/Codeine Phosphate (Guaifenesin/Codeine 200mg/20mg 10ml Udc) 10 ml PO Q6H PRN PRN Reason: Cough Stop: 09/27/20 14:34 Last Admin: 08/29/20 09:33 Dose: 10 ml Documented by: [id number] Admin: 08/28/20 22:32 Dose: 10 ml Documented by: [id number] Admin: 08/28/20 16:28 Dose: 10 ml Documented by: [id number] Sodium Chloride (Nss 1000ml) 1,000 mls @ 80 mls/hr IV .[id number] [facility] Stop: 09/27/20 14:34 Last Admin: 08/29/20 15:47 Dose: 80 mls/hr Documented by: [id number] Infusion: 08/29/20 15:47 Dose: 80 mls/hr Documented by: [id number] Admin: 08/29/20 03:56 Dose: 80 mls/hr Documented by: [id number] Infusion: 08/29/20 03:55 Dose: 0 mls/hr Documented by: [id number] Admin: 08/28/20 14:53 Dose: 80 mls/hr Documented by: [id number] Ceftriaxone Sodium 2,000 mg/ (Dextrose) 70 mls @ 100 mls/hr IV Q24H [facility]; Protocol Stop: 09/08/20 10:59 Last Infusion: 08/29/20 13:54 Dose: 0 mls/hr Documented by: [id number] Admin: 08/29/20 12:34 Dose: 100 mls/hr Documented by: [id number] Loperamide HCl (Loperamide Hcl 2 Mg Cap) 2 mg PO Q6 PRN PRN Reason: Diarrhea Stop: 09/27/20 14:34 Last Admin: 08/28/20 16:28 Dose: 2 mg Documented by: [id number] Magnesium Oxide (Magnesium Oxide 400 Mg Tab) 800 mg PO TID [facility] Stop: 09/27/20 14:59 Last Admin: 08/29/20 13:50 Dose: 800 mg Documented by: [id number] Admin: 08/29/20 10:08 Dose: 800 mg Documented by: [id number] Admin: 08/28/20 21:06 Dose: 800 mg Documented by: [id number] Admin: 08/28/20 16:28 Dose: 800 mg Documented by: [id number] Multivitamins (Multivitamin Tab) 1 tab PO QAM [facility] Stop: 09/28/20 08:59 Last Admin: 08/29/20 09:27 Dose: 1 tab Documented by: [id number] Mycophenolate Mofetil (Mycophenolate Mofetil 250 Mg Cap) 1,000 mg PO BID [facility] Stop: 09/27/20 20:59 Last Admin: 08/29/20 09:27 Dose: 1,000 mg Documented by: [id number] Admin: 08/28/20 20:59 Dose: 1,000 mg Documented by: [id number] Pantoprazole Sodium (Pantoprazole 40 Mg Tab) [facility] Stop: 09/28/20 08:59 Last Admin: 08/29/20 09:27 Dose: 40 mg Documented by: [id number] Potassium Phosphate (Pot Phosphate Monobasic W/ Sod Tab) 2 tab PO TID [facility] Stop: 09/27/20 14:34 Last Admin: 08/29/20 13:50 Dose: 2 tab Documented by: [id number] Admin: 08/29/20 09:27 Dose: 2 tab Documented by: [id number] Admin: 08/28/20 21:00 Dose: 2 tab Documented by: [id number] Admin: 08/28/20 16:18 Dose: 2 tab Documented by: [id number] Prednisone (Prednisone 5 Mg Tab) 5 mg PO QAM [facility] Stop: 09/28/20 08:59 Last Admin: 08/29/20 09:27 Dose: 5 mg Documented by: [id number] Tamsulosin HCl (Tamsulosin Hcl 0.4 Mg Cap) 0.4 mg PO HS [facility] Stop: 09/27/20 20:59 Last Admin: 08/28/20 21:00 Dose: 0.4 mg Documented by: [id number] Vitamin D (Cholecalciferol 1,000 Units 25 Mcg Tab) 1,000 units PO QAM [facility] Stop: 09/28/20 08:59 Last Admin: 08/29/20 09:28 Dose: 1,000 units Documented by: [id number] Warfarin Sodium (Warfarin Sod 10 Mg Tab) 10 mg PO [id number] [facility] Stop: 09/27/20 15:59 Last Admin: 08/28/20 17:16 Dose: 10 mg Documented by: [id number] Warfarin Sodium (Warfarin Sod 7.5 Mg Tab) 7.5 mg PO [id number] [facility] Stop: 09/28/20 15:59 Last Admin: 08/29/20 15:47 Dose: 7.5 mg Documented by: [id number] Discontinued Medications Albuterol (Albuterol Hfa 8 Gm Inhaler) 2 puffs INH NOW ONE Stop: 08/28/20 11:51 Last Admin: 08/28/20 13:26 Dose: 2 puffs Documented by: [id number] Imaging Data Attestation: I personally reviewed and interpreted this imaging study as follows: Radiologist's Impression: Chest X-Ray 08/28/20 11:46 SINGLE VIEW CHEST CLINICAL HISTORY: Sepsis. FINDINGS: An AP, portable, upright chest radiograph is compared to study dated 01/28/2020. Correlation is made with chest CT dated 11/25/2017. The examination is degraded by portable technique and apical lordotic positioning. The heart is enlarged noting atherosclerotic calcification of the thoracic aorta. There is pulmonary vascular congestion. Chronic interstitial thickening and nodularity is similar to previous. There are calcified mediastinal and hilar lymph nodes. Mild interstitial airspace opacities are seen throughout both lungs. No large pleural effusion or pneumothorax is seen. The skeletal structures appear osteopenic. The bony thorax is grossly intact. Degenerative change and scoliosis is seen in the thoracic spine. IMPRESSION: 1. Cardiomegaly with evidence of congestive failure. 2. There is residual airspace opacities are seen throughout both lungs. This co uld represent pulmonary edema and/or an infectious/inflammatory pneumonitis. Clinical correlation will be required. ACT 112: Negative or not required by law. Electronically signed by: Mark Rivas M.D. 08/28/2020 12:32 PM Discharge Plan Visit Data Chief Complaint: Shortness of Breath/Dyspnea Stated Complaint: SHORTNESS OF BREATH/ COVID POSITIVE ED Provider: Srikanth Lazar Discharge Problem: COVID-19 virus infection, Dehydration, Immunocompromised Patient Disposition: Admitted As Inpatient Discharge Instructions Interventions: ED Discharge Assessment Last Done: 08/28/20 14:10
[2020-08-29] MEDS: GABAPENTIN 300 MG CAP PO SCH (20:36)
[2020-08-29] MEDS: TAMSULOSIN HCL 0.4 MG CAP PO SCH (20:37)
--- NOTE | 2020-08-29 22:18 | Hospitalist Progress Note ---
Date of Service August 29, 2020 Assessment & Plan (1) COVID-19 virus infection: diagnosed on 08/19, routine pre-op testing for hernia surgery developed symptoms after he was positive currently with weakness, diarrhea, cough, dyspnea at rest and on exertion he actually had his 2nd Pfizer COVID vaccine on 08/13 supportive care with NSS at 80cc/hr, will stop after today Imodium for diarrhea, Codeine for the cough Zinc 220mg daily no need for dexamethasone as he is not hypoxic, 98% room air monitor closely for any desaturation, if he drops below 94% then can start on dexamethasone at risk of worsening infection given his immunosuppressant medications however, he should do well due to being vaccinated follow closely (2) UTI (urinary tract infection): complicated, possible prostatitis, history of such treated for a week with Cipro, repeat UA on admission is clean change to Rocephin 2gm IV for less nephrotoxicity follow up repeat urine culture grew out xiao sensitive E coli on 08/20 as outpatient (3) Dehydration: diarrhea and poor oral intake for several days, dry mucous membranes Cr stable at 2.2 on admission, it is 2.1 today hydrate with NSS 80cc/hr, stop after today hold Lasix and Losartan (4) Chronic renal insufficiency: Cr is down to baseline of 2.1 electrolytes stable repeat in the morning NSS at 80cc/hr consult Dr. Pablo to follow given his history of renal transplant (5) Renal transplant recipient: living donor, 2019 in [place] Cr is 2.1 continue cyclosporine, mycophenolate, Prednisone 5mg (6) Neuropathy: Gabapentin (7) Hypertension: BP elevated at 140 hold Losartan due to dehydration (8) GERD (gastroesophageal reflux disease): PPI Admission and Anticipated Discharge Date Admission Date: August 28, 2020 Subjective patient feeling about the same, still feels short of breath but he is not hypoxic, 97% on room air no cough, no respiratory distress, no chest pain, no fever/chills discussed recent history in more depth, he actually got his 2nd COVID vaccine, Pfizer, on 08/13 he tested positive for COVID on 08/19 he was treated for UTI, possible prostatitis on 08/[address] Pablo, urine culture as outpatient grew E coli, xiao sensitive discussed that the Cipro could be more nephrotoxic, changed to Rocephin while here the repeat UA on admission was clean, no WBC labs today show normal random cortisol, Cr stable at 2.1, K 4.6, INR is 1.8, WBC 3.3 Review of Systems Review of Systems: All systems reviewed & are unremarkable except as noted in Subjective Constitutional: + fatigue and + weakness; no fever, no chills and no sweats Respiratory: + dyspnea and + dyspnea on exertion; no cough, no sputum production and no wheezing Cardiovascular: no chest pain and no edema Gastrointestinal: no abdominal pain, no nausea, no vomiting, no constipation and no diarrhea/loose stools Genitourinary: no dysuria, no difficulty urinating and no urinary frequency Physical Exam Constitutional: well developed, + ill appearing and + obese; no acute distress and + not appropriately hydrated Neck: trachea midline, no thyromegaly Respiratory: normal respiratory effort and + cough; no respiratory distress, no labored breathing and does not use accessory muscles Auscultation: lungs clear to auscultation bilaterally Cardiovascular: RRR, no murmur, no edema Extremities: + AV fistula Gastrointestinal (Abdomen): normal bowel sounds, soft, nontender, no hepatosplenomegaly Musculoskeletal: no cyanosis or clubbing, extremities motor strength 5/5 Skin: no rashes, warm and dry Neurologic: patellar DTR's 2+ bilat, sensation intact and PERRL, EOMI, accommodation nl, no face palsy, no dysarthria Psychiatric: A+Ox3, euthymic affect Lymphatic: no cervical or axillary lymphadenopathy Results & Data Results & Data ([facility]) Vital Signs (Past 12 Hours) Vital Signs Temp Pulse Resp BP Pulse Ox 08/29/20 20:00 36.6 C 71 20 138/91 96 08/29/20 15:53 37.1 C 70 16 121/87 96 08/29/20 11:30 37.3 C 60 18 137/80 94 Laboratory Results Laboratory Results - last 24 hr 08/29/20 08/29/20 08/29/20 07:06 07:12 10:22 WBC 3.38 L RBC 3.44 L Hgb 10.0 L Hct 30.9 L MCV 89.8 MCH 29.1 MCHC 32.4 RDW Std Deviation 48.4 H RDW Coeff of Theresa 14.7 H Plt Count 168 MPV 10.7 H PT 17.5 H INR 1.8 H Sodium Potassium Chloride Carbon Dioxide Anion Gap BUN Creatinine Est Cr Clr Drug Dosing Est GFR ( Amer) Est GFR (Non-Af Amer) BUN/Creatinine Ratio Glucose Calcium Phosphorus Magnesium Random Cortisol 15.99 Specimen Hemolysis 08/29/20 10:22 WBC RBC Hgb Hct MCV MCH MCHC RDW Std Deviation RDW Coeff of Theresa Plt Count MPV PT INR Sodium 135 L Potassium 4.6 Chloride 108 H Carbon Dioxide 21 Anion Gap 6.0 BUN 25 H Creatinine 2.18 H Est Cr Clr Drug Dosing 52.7 Est GFR ( Amer) 37.3 Est GFR (Non-Af Amer) 32.2 BUN/Creatinine Ratio 11.5 Glucose 82 Calcium 8.4 L Phosphorus 2.8 Magnesium 1.8 Random Cortisol Specimen Hemolysis Medications Administered Current Inpatient Medications Acetaminophen (Acetaminophen 325 Mg Tab) 650 mg PO Q4H PRN PRN Reason: pain/fever Stop: 09/27/20 14:34 Aspirin (Aspirin 81 Mg Ectab) [address] [facility] Stop: 09/28/20 08:59 Last Admin: 08/29/20 09:27 Dose: 81 mg Documented by: Ciprofloxacin (Ciprofloxacin 500 Mg Tab) 500 mg PO BID [facility] Stop: 09/27/20 20:59 Cyclosporine (Cyclosporine 100 Mg Cap) 200 mg PO BID [facility] Stop: 09/27/20 20:59 Last Admin: 08/29/20 20:36 Dose: 200 mg Documented by: Docusate Sodium (Docusate Sodium 100 Mg Cap) 100 mg PO BID PRN PRN Reason: Constipation Stop: 09/27/20 14:34 Duloxetine HCl (Duloxetine Hcl 20 Mg Cap) [address] [facility] Stop: 09/28/20 08:59 Last Admin: 08/29/20 09:27 Dose: 20 mg Documented by: Febuxostat (Febuxostat 40 Mg Tablet) [address] [facility] Stop: 09/28/20 08:59 Last Admin: 08/29/20 09:26 Dose: 80 mg Documented by: Gabapentin (Gabapentin 600 Mg Tab) 600 mg PO BID@0900,1400 [facility] Stop: 09/27/20 15:29 Last Admin: 08/29/20 13:50 Dose: 600 mg Documented by: Gabapentin (Gabapentin 300 Mg Cap) 900 mg PO [facility] Stop: 09/27/20 20:59 Last Admin: 08/29/20 20:36 Dose: 900 mg Documented by: Guaifenesin/Codeine Phosphate (Guaifenesin/Codeine 200mg/20mg 10ml Udc) 10 ml PO Q6H PRN PRN Reason: Cough Stop: 09/27/20 14:34 Last Admin: 08/29/20 20:36 Dose: 10 ml Documented by: Sodium Chloride (Nss 1000ml) 1,000 mls @ 80 mls/hr IV .[id number] [facility] Stop: 09/27/20 14:34 Last Admin: 08/29/20 15:47 Dose: 80 mls/hr Documented by: Ceftriaxone Sodium 2,000 mg/ (Dextrose) 70 mls @ 100 mls/hr IV Q24H [facility]; Protocol Stop: 09/08/20 10:59 Last Infusion: 08/29/20 13:54 Dose: Infused Documented by: Loperamide HCl (Loperamide Hcl 2 Mg Cap) 2 mg PO Q6 PRN PRN Reason: Diarrhea Stop: 09/27/20 14:34 Last Admin: 08/28/20 16:28 Dose: 2 mg Documented by: Magnesium Oxide (Magnesium Oxide 400 Mg Tab) 800 mg PO TID [facility] Stop: 09/27/20 14:59 Last Admin: 08/29/20 20:36 Dose: 800 mg Documented by: Multivitamins (Multivitamin Tab) [address] [facility] Stop: 09/28/20 08:59 Last Admin: 08/29/20 09:27 Dose: 1 tab Documented by: Mycophenolate Mofetil (Mycophenolate Mofetil 250 Mg Cap) 1,000 mg PO BID [facility] Stop: 09/27/20 20:59 Last Admin: 08/29/20 20:37 Dose: 1,000 mg Documented by: Ondansetron HCl (Ondansetron Inj 2 Mg/Ml 2 Ml Vial) 4 mg IV Q6H PRN PRN Reason: Nausea Stop: 09/27/20 14:34 Pantoprazole Sodium (Pantoprazole 40 Mg Tab) 40 mg PO QAM [facility] Stop: 09/28/20 08:59 Last Admin: 08/29/20 09:27 Dose: 40 mg Documented by: Polyethylene Glycol (Polyethylene (Miralax) 17 Gm Pack) 17 gm PO DAILY PRN PRN Reason: Constipation Stop: 09/27/20 14:34 Potassium Phosphate (Pot Phosphate Monobasic W/ Sod Tab) 2 tab PO TID [facility] Stop: 09/27/20 14:34 Last Admin: 08/29/20 20:36 Dose: 2 tab Documented by: Prednisone (Prednisone 5 Mg Tab) [facility] Stop: 09/28/20 08:59 Last Admin: 08/29/20 09:27 Dose: 5 mg Documented by: Simvastatin (Simvastatin 40 Mg Tab) 40 mg PO [facility] Stop: 09/27/20 20:59 Tamsulosin HCl (Tamsulosin Hcl 0.4 Mg Cap) 0.4 mg PO [facility] Stop: 09/27/20 20:59 Last Admin: 08/29/20 20:37 Dose: 0.4 mg Documented by: Vitamin D (Cholecalciferol 1,000 Units 25 Mcg Tab) 1,[address] [facility] Stop: 09/28/20 08:59 Last Admin: 08/29/20 09:28 Dose: 1,000 units Documented by: Warfarin Sodium (Warfarin Sod 10 Mg Tab) 10 mg PO [email or web address]@1600 [facility] Stop: 09/27/20 15:59 Last Admin: 08/28/20 17:16 Dose: 10 mg Documented by: Warfarin Sodium (Warfarin Sod 7.5 Mg Tab) 7.5 mg PO [id number]@1600 [facility] Stop: 09/28/20 15:59 Last Admin: 08/29/20 15:47 Dose: 7.5 mg Documented by: PG Care Time/CCT Total # of Minutes Spent Total Time Spent with Patient: Total time spent is greater than 50% in coordination of care (as documented) at patient's floor/unit and/or counseling patient: Coding Level of Care Code 94155 Subseq Hosp Care Lvl 3 Diagnoses COVID-19 virus infection U07.1 UTI (urinary tract infection) N39.0 Dehydration E86.0 Chronic renal insufficiency N18.9 Renal transplant recipient Z94.0 Neuropathy G62.9 Hypertension I10 Hypertension type: essential hypertension GERD (gastroesophageal reflux disease) K21.9 (1) Hypertension Hypertension type: essential hypertension Qualified Code(s): I10 - Essential (primary) hypertension
[2020-08-30 06:35] LABS: Hematocrit (blood only) 30.7 % (42-52); Hemoglobin 9.6 g/dL (14.0-18.0); Mean Corpuscular Hemoglobin 28.5 pg (25-34); Mean Corpuscular Hgb Conc 31.3 g/dL (32-36); Mean Corpuscular Volume 91.1 fL (80-100); Mean Platelet Volume 10.6 fL (7.4-10.4); Platelet Count 165 K/uL (130-400); RDW Coefficient of Variation 14.9 % (11.5-14.5); RDW Standard Deviation 49.1 fL (36.4-46.3); Red Blood Count 3.37 M/uL (4.7-6.1); White Blood Count 3.01 K/uL (4.8-10.8)
[2020-08-30 06:46] LABS: INR 2.1 (0.9-1.1); Prothrombin Time 20.2 Seconds (9.0-12.0)
[2020-08-30 07:18] LABS: BUN Creatinine Ratio 13.5 (10-20); Calcium 8.2 mg/dl (8.5-10.1); Creatinine Clr Calc Pharmacy 59.2 ml/min; Est GFR (Non-African American) 37.1; Potassium 4.4 mmol/L (3.5-5.1)
[2020-08-30] MEDS: FEBUXOSTAT 40 MG TABLET PO SCH (09:55)
[2020-08-30] MEDS: MAGNESIUM OXIDE 400 MG TAB PO SCH ×2 (09:55→14:14)
[2020-08-30] MEDS: DULoxetine HCL 20 MG CAP PO SCH (09:55)
[2020-08-30] MEDS: MYCOPHENOLATE MOFETIL 250 MG CAP PO SCH (09:55)
[2020-08-30] MEDS: ASPIRIN 81 MG ECTAB PO SCH (09:55)
[2020-08-30] MEDS: CHOLECALCIFEROL 1,000 UNITS 25 MCG TAB PO SCH (09:55)
[2020-08-30] MEDS: MULTIVITAMIN TAB PO SCH (09:56)
[2020-08-30] MEDS: predniSONE 5 MG TAB PO SCH (09:56)
[2020-08-30] MEDS: POT PHOSPHATE MONOBASIC W/ SOD TAB PO SCH ×2 (09:56→14:14)
[2020-08-30] MEDS: PANTOprazole 40 MG TAB PO SCH (09:56)
[2020-08-30] MEDS: cycloSPORINE 100 MG CAP PO SCH (09:56)
[2020-08-30] MEDS: GABAPENTIN 600 MG TAB PO SCH ×2 (09:56→14:14)
--- NOTE | 2020-08-30 10:17 | Nephrology Progress Note ---
Date of Service August 30, 2020 Assessment & Plan (1) COVID-19 virus infection: Clinically stable. Not requiring supplemental O2. Dexamethasone deferred at this time. Management per hospitalist team. Clinically improving and no need to adjust IS therapy. (2) Renal transplant recipient: Continue cyclosporine, mycophenolate, Prednisone 5mg. Creatinine stable at baseline. BP acceptable. Volume status reasonable. Medications appropriate for kidney function. No changes at this time. Plan of care discussed with Dr. Flores this AM. Nephrology will sign-off. Please call with questions or concerns. (3) Hypertension: BP acceptable. Losartan held but it would be reasonable to restart as needed or at discharge. Admission and Anticipated Discharge Date Admission Date: August 28, 2020 Subjective No acute events overnight. Kirby states that he feels slightly better today but remains slightly dyspneic at rest. Activity tolerance remains limited. No fevers or chills. Review of Systems Review of Systems: All systems reviewed & are unremarkable except as noted in HPI & below Physical Exam Physical Exam: Deferred due to COVID 19 pandemic Results & Data ([facility]) Vital Signs (Past 12 Hours) Vital Signs Temp Pulse Resp BP Pulse Ox 08/30/20 09:07 36.7 C 73 19 140/87 98 08/30/20 04:00 36.9 C 72 20 131/86 94 08/29/20 23:00 36.7 C 66 20 144/90 H 96 Laboratory Results Laboratory Results - last 24 hr 08/29/20 08/29/20 08/29/20 07:12 10:22 10:22 WBC 3.38 L RBC 3.44 L Hgb 10.0 L Hct 30.9 L MCV 89.8 MCH 29.1 MCHC 32.4 RDW Std Deviation 48.4 H RDW Coeff of Theresa 14.7 H Plt Count 168 MPV 10.7 H PT INR Sodium 135 L Potassium 4.6 Chloride 108 H Carbon Dioxide 21 Anion Gap 6.0 BUN 25 H Creatinine 2.18 H Est Cr Clr Drug Dosing 52.7 Est GFR ( Amer) 37.3 Est GFR (Non-Af Amer) 32.2 BUN/Creatinine Ratio 11.5 Glucose 82 Calcium 8.4 L Phosphorus 2.8 Magnesium 1.8 Random Cortisol 15.99 Specimen Hemolysis 08/30/20 08/30/20 08/30/20 05:45 05:45 05:45 WBC 3.01 L RBC 3.37 L Hgb 9.6 L Hct 30.7 L MCV 91.1 MCH 28.5 MCHC 31.3 L RDW Std Deviation 49.1 H RDW Coeff of Theresa 14.9 H Plt Count 165 MPV 10.6 H PT 20.2 H INR 2.1 H Sodium 137 Potassium 4.4 Chloride 108 H Carbon Dioxide 23 Anion Gap 6.0 BUN 26 H Creatinine 1.94 H Est Cr Clr Drug Dosing 59.2 Est GFR ( Amer) 43.0 Est GFR (Non-Af Amer) 37.1 BUN/Creatinine Ratio 13.5 Glucose 80 Calcium 8.2 L Phosphorus Magnesium Random Cortisol Specimen Hemolysis PG Care Time/CCT Total # of Minutes Spent Total Time Spent with Patient: Total time spent is greater than 50% in coordination of care (as documented) at patient's floor/unit and/or counseling patient: Coding Level of Care Code 14563 Subseq Hosp Care Lvl 3 Diagnoses COVID-19 virus infection U07.1 Renal transplant recipient Z94.0 Hypertension I10 Hypertension type: essential hypertension (1) Hypertension Hypertension type: essential hypertension Qualified Code(s): I10 - Essential (primary) hypertension
[2020-08-30] MEDS: cefTRIAXone SODIUM 2,000 MG in DEXTROSE 5% 50 ML IV SCH (11:07)
--- NOTE | 2020-08-30 14:41 | Discharge Summary ---
Date of Service August 30, 2020 Admission HPI Per Admitting Provider 59 yo male with history of ESRD, s/p renal transplant from living donor in 2019, presents to the ED with worsening fatigue, dehydration and dyspnea related to COVID 19 infection. He had a positive test on 08/19 but this was actually just a screening test for hernia repair surgery. He had a mild runny nose at that time but nothing that he was concerned about, he was surprised when he tested positive. Over the past 8 days he has developed fevers/chills, rigors, malaise, diarrhea, nausea, poor oral intake, cough that is non-productive and finally started to get short of breath. He has not been taking his Lasix the past week due to dehydration. He says he is short of breath at rest and he cannot really do any type of activity because his breathing gets so bad. In the ED he was not hypoxic, he is 98-99% on room air. CXR with some subtle infiltrates but nothing severe. No fever, hypertensive, HR normal. WBC slightly low, Hb 10.8, Cr 2.2, K normal, INR 1.8, LDH 409, CRP 4.3, procalcitonin < 0.05. He was given albuterol and NSS in the ED and admission requested due to dehydration, weakness, dyspnea and potential to get worse with his immunocompromised status with renal transplant on cyclosporine, Prednisone, mycophenolate mofetil. Principal Diagnosis COVID 19 infection, dehydration Discharge Exam Constitutional well developed, + ill appearing and + obese; no acute distress and + not appropriately hydrated Neck trachea midline, no thyromegaly Respiratory normal respiratory effort and + cough; no respiratory distress, no labored breathing and does not use accessory muscles Auscultation: lungs clear to auscultation bilaterally Cardiovascular RRR, no murmur, no edema Extremities: + AV fistula Gastrointestinal (Abdomen) normal bowel sounds, soft, nontender, no hepatosplenomegaly Musculoskeletal no cyanosis or clubbing, extremities motor strength 5/5 Skin no rashes, warm and dry Neurologic patellar DTR's 2+ bilat, sensation intact and PERRL, EOMI, accommodation nl, no face palsy, no dysarthria Psychiatric A+Ox3, euthymic affect Lymphatic no cervical or axillary lymphadenopathy Discharge Data Allergies Allergy/AdvReac Type Severity Reaction Status Date / Time allopurinol Allergy Unknown Rash Verified 08/29/20 10:43 Penicillins Allergy Unknown Unknown Verified 08/29/20 10:43 Consultations 08/28/20 13:03 ED Decision to Admit Stat 08/28/20 14:35 Consult Nephrology Routine Hospital Course (1) COVID-19 virus infection: diagnosed on 08/19, routine pre-op testing for hernia surgery developed symptoms after he was positive currently with weakness, diarrhea, cough, dyspnea at rest and on exertion he actually had his 2nd Pfizer COVID vaccine on 08/13 supportive care with NSS at 80cc/hr, stopped on 08/29 as he was eating and drinking well, diarrhea stopped Imodium for diarrhea, Codeine for the cough (much better) Zinc 220mg daily no need for dexamethasone as he is not hypoxic, 98% room air never dropped below 94% while here at risk of worsening infection given his immunosuppressant medications however, he should do well due to being vaccinated has been stable for three days without hypoxia and he is over 10 days from positive test on 08/19 d/c to home, stay well hydrated and well nourished use Codeine PRN for cough follow up with Dr. Pablo (2) UTI (urinary tract infection): complicated, possible prostatitis, history of such treated for a week with Cipro, repeat UA on admission is clean change to Rocephin 2gm IV, treated for two days, he started to feel a little better after the Rocephin blood cultures on admission with no growth at 3 days grew out xiao sensitive E coli on 08/20 as outpatient will give Keflex 500mg BID on discharge, continue for 20 days follow up with Dr. Pablo (3) Dehydration: diarrhea and poor oral intake for several days, dry mucous membranes Cr stable at 2.2 on admission, it is 1.9 today hydrated with NSS 80cc/hr for two days resume lasix and Losartan on discharge (4) Chronic renal insufficiency: Cr is down to baseline of 1.9 electrolytes stable nephrology consulted and signed off (5) Renal transplant recipient: living donor, 2019 in [place] Cr is 2.1 continue cyclosporine, mycophenolate, Prednisone 5mg BP stable, random cortisol normal, electrolytes stable no concerns for adrenal insufficiency (6) Neuropathy: Gabapentin (7) Hypertension: continue home regimen (8) GERD (gastroesophageal reflux disease): PPI Total Time Total Time Spent Total Time Spent (In Minutes): 33 minutes Total Time Includes: Examination of the Patient, Discharge Planning and Medication Reconciliation Discharge Plan Discharge Items Patient Disposition: Home - Self-Care Reason For Visit: COVID INFECTION Discharge Diagnosis: COVID positive test UTI, possible prostatitis Dehydration Condition on Discharge: Good Goals: complete treatment of UTI stay well hydrated, well nourished follow up with Dr. Pablo once he is back Activity: Resume your previous activity Driving/Machine Use: No limitations Weightbearing: Full weightbearing Non-emergency contact: Primary Care Provider Call non-emergency contact if: you have any medication questions and your symptoms worsen Follow-up/Referrals: Davion Pablo MD [Primary Care Provider] - 09/13/20 11:30 am (in two weeks Your appointment will be with MARTA Dailey) Diet: Low Potassium (2gm) and Low Sodium (2gm) Addtl Attending Provider Instructions: Medications: - CEPHALEXIN: take 500mg twice a day for 20 more days for complicated UTI, possible prostatitis, next dose is tomorrow morning - ROBITUSSIN: take as needed for cough COVID positive test you have been vaccinated twice which should offer you protection from serious infection there are no signs of COVID pneumonia on chest x-ray and you never dropped below 94% on room air entire visit you presented dehydrated with poor oral intake and diarrhea, responded well to IV fluids there is no need for you to be in isolation as your positive test was on 08/19 so you are 11 days out stay well hydrated, well nourished, get rest at home UTI, possible prostatitis urine culture from 08/[address] Pablo grew out E coli that is xiao sensitive you were on Cipro, the repeat urinalysis done here shows no bacteria, no white blood cells treated with Rocephin IV on 08/29 and 08/30, will transition to Keflex 500mg BID for 20 more days blood cultures done in the ED showed no growth at 3 days Chronic kidney disease, s/p transplant renal function is stable, Cr was 2.2 on admission, it is 1.9 today continue all home medications follow up with Dr. Pablo in two weeks Pending Studies at Discharge: No Stand-Alone Forms: My [email or web address], Smoking Cessation Medications and DC Order Prescriptions: New cephalexin 500 mg capsule 500 mg PO BID 20 Days Qty: 40 RF: 0 codeine-guaifenesin 10-100 mg/5 mL Liquid 10 ml PO Q6H PRN (Reason: cough) 7 Days Qty: 120 RF: 0 Continued furosemide [Lasix] 40 mg tablet 60 mg PO QAM Qty: 120 RF: 3 warfarin 5 mg tablet 5 mg PO .COMPLEX Qty: 180 RF: 3 omeprazole 40 mg capsule,delayed release(DR/EC) 40 mg PO QAM Qty: 90 RF: 3 simvastatin 40 mg tablet 40 mg PO HS Qty: 90 RF: 3 duloxetine 20 mg capsule,delayed release(DR/EC) 20 mg PO QAM Qty: 90 RF: 3 mycophenolate mofetil [CellCept] 250 mg capsule 1,000 mg PO BID RF: 0 febuxostat [Uloric] 80 mg tablet 80 mg PO QAM RF: 0 aspirin [Adult Low Dose Aspirin] 81 mg tablet,delayed release (DR/EC) 81 mg PO QAM RF: 0 tamsulosin [Flomax] 0.4 mg capsule 0.4 mg PO HS RF: 0 docusate sodium [Colace] 100 mg capsule 100 mg PO BID PRN (Reason: Constipation) RF: 0 multivitamin [Daily Multi-Vitamin] tablet 1 tab PO QAM RF: 0 cholecalciferol (vitamin D3) 1,000 unit capsule 1,000 units PO QAM RF: 0 prednisone 5 mg tablet 5 mg PO QAM RF: 0 N-Bnno-Rmjeptz 250 mg tablet 2 tab PO TID RF: 0 magnesium oxide 400 mg magnesium capsule 800 mg PO TID RF: 0 cyclosporine 100 mg capsule 200 mg PO BID RF: 0 gabapentin [Neurontin] 300 mg capsule 900 mg PO HS Qty: 270 RF: 3 losartan 100 mg tablet 100 mg PO QAM RF: 0 gabapentin [Neurontin] 300 mg capsule 600 mg PO DIRECTED RF: 0 Discontinued ciprofloxacin HCl 500 mg tablet 500 mg PO BID Qty: 42 RF: 0 Discharge Orders: Discharge Order (Routine); Ordered 08/30/20 Ordered By: Mega Flores Admission Data Admit Date/Time: 08/28/20 13:26 Attending Provider: Mega Flores Admit Provider: Mega Flores Primary Care Provider: Davion Pablo Other Providers: Davion Dominguez Jonathan Other Interventions: Discharge Summary Assessment (RN) Last Done: 08/30/20 15:02 Coding Level of Care Code D/C Day Management >30 mins Diagnoses COVID-19 virus infection U07.1 UTI (urinary tract infection) N39.0 Dehydration E86.0 Chronic renal insufficiency N18.9 Renal transplant recipient Z94.0 Neuropathy G62.9 Hypertension I10 Hypertension type: essential hypertension GERD (gastroesophageal reflux disease) K21.9
--- NOTE | 2020-09-05 13:42 | Coding Query ---
CHRONIC KIDNEY DISEASE To promote full compliance with coding requirements relating to patient care, physician participation is requested in all cases of [employer] uncertainty. Please assist us with the question(s) below: Coding Question(s): The record reflects the following clinical findings: There is documentation of ESRD, s/p kidney transplant and also documentation in the record of chronic renal insufficiency that would be chronic kidney disease. It is not clear if the patient has ESRD currently, or if kidney function is now normal with no chronic kidney disease, or if there is chronic kidney disease at another stage, other than ESRD. Please specify the known or suspected type by placing an "X" within the parenthesis (x). If other, please document type. Please document Staging if known: ( ) Stage I >90 Kidney damage with normal or elevated GFR. ( ) Stage II 60-89 Kidney damage with mildly decreased kidney function (x ) Stage III 30-59 Moderately decreased kidney function ( ) Stage IV 15-29 Severely decreased kidney function ( ) Stage V <15 Renal failure (or dialysis) ( ) End Stage ( ) Unknown ( ) NO CKD Thank you Grisel SHAFER
== END 2020-08-30 15:25 | disposition home or self-care (01) | DRG 178 ==
LOC: ED 10:48 → 2E 13:26

== ENCOUNTER 2020-09-09 23:35 | Inpatient (IN) ==
[2020-09-10] MEDS ORDERED: HYDROCORTISONE SOD SUCCINATE 100 MG/2 ML VIAL IV STA (00:03)
[2020-09-10] MEDS ORDERED: SODIUM CHLORIDE 0.9% 1000ML 1,000 ML IV ONE ×2 (00:03)
--- NOTE | 2020-09-10 00:10 | Emergency Department Note ---
Impression & Plan Hypotensive syncope, Acute blood loss anemia, Acute GI bleeding, Abdominal wall hematoma, Elevated INR ED Provider Note Name: NAN MONTE Age: 60 Sex: M Arrives Via: Ambulance Informant: Patient, EMS, ED Provider: Jay Cochran MD Chief Complaint: Syncope Impression: Hypotensive Syncope Acute Blood Loss Anemia Acute GI Bleeding Abdominal Wall Hematoma Elevated INR Medical Decision Makin yr old male with multiple medical issues including renal transplant on immunosuppression and daily prednisone, history of leg dvt on chronic coumadin, and recent covid infection 2+ weeks ago who has been on Keflex for the last 2 weeks for possible prostate infection. Arrives with syncopal episode on to the bed this evening without any prolonged LOC nor stroke like symptoms nor headache. Arrives hypotensive and ill appearing. Immediately ordered 2 L nss at bedside along with stress dose steroids for concern this is septic shock. Labs, ekc obtained. CXR consistent with recent covid though fortunately sats are OK today and breathing doing well. BP did come up considerably with this and thus further IV fluids held as Hbg came back low. Rectal exam with black heme positive stool. INR is greater than 10. He meets criteria for K-Centra a nd thus he was given this along with 10mg IV Vit K, as well as Protonix 80mg IV. He was ordered 2 Units PRBC (transfused one here once crossed and back from CT). He had ct head done due to syncope which was negative. CT a/p wo contrast as continued abdominal pain which revealed large rectus sheath hematoma. Unlikely to be acute surgical intervention necessary. From what notes it appears abdominal pain started with coughing earlier and thus I assume with high INR he bleed due to coughing. INR likely elevated secondary to recent abx use. Fortunately rest of CT OK. With improving BP he tolerated some IV pain medications with good result. He is covid positive, but is now well outside 2 weeks and is not having significant sob other than periodic cough. Hospitalist consulted for further management. Of note, no fever, no significant wbc elevation and there is other source for hypotension, thus this does not seem to be primary sepsis. Prior Medical Record and Triage/Nursing Notes reviewed by Me Additional history obtained from chart and Differentials:Vasovagal event, dehydration, infection, hypoglycemia, electrolyte abnormalities, cardiac sources, intracerebral event, pulmonary embolism, seizure, toxicologic, neurologic, as well as other pathologies. Vital Signs: reviewed and remarkable for hypotension Interventions: saline lock, nss bolus 2 L IV, hydrocortisone 100mg iv, protonix 80mg iv, vit k 10mg iv, k-centra iv, PRBC (1 Unit here) Labs:Reviewed and remarkable for anemia Imaging:X ray results are stated below per my interpretation: Chest: 1 view: Bilateral infiltrates consistent with covid. [facility] Radiologist interpretation reviewed by me: CT head no acute findings. CT a/p see report though abdominal wall hematoma noted. EKG:Per My Interpretation: Indication syncope: NSR 63 bpm, qtc 478. No Ectopy. No Ischemia. Compared to EKG 09/02/20, no significant changes. Cardiac/Tele Monitoring: Cardiac Monitoring: An Order was placed for continuous cardiac monitoring. The monitor shows a rate of 60 with a normal sinus rhythm. Consults:Dr Moira NUNEZ Hospitalist. Plan: Disposition:Hospitalization. Condition: Good History of Present Illness:60 yr old male arrives for evaluation of syncope. Patient with COVID 2+ weeks ago for which he was treated with steroids and then developed UTI for which he has recently finished Keflex. He also has a history of having a renal transplant several years ago at [place]. He is on antirejection drugs and prednisone daily for this. Notes he started feeling weak and ill throughout the day yesterday. When getting in bed this evening he passed out on to the bed which he does not recall having done. Notes he feels diffuse weakness and mild nausea. Having some vague abdominal pain radiating to bilateral flanks. No tearing pain. Denies chest pain, sob, headache, neck pain, leg pain/swelling, rashes, fevers, chills, vomiting, nor other symptoms. No medications prior to arrival. No trauma and he is adamant no headache nor neck pain ROS: See above HPI for pertinent positives & negatives. A total of 10 systems reviewed and were otherwise negative. Past Medical History:See Below Past Surgical History:See Below Family History:See Below Social History:See Below Home Medications:See Below Allergies:Allopurinol, Penicillins Vitals:Blood Pressure: 88/50, Pulse 63, RR 24, T 3.7C, O2 96% on RA Physical Exam: GENERAL: Patient is very ill and tired appearing and in mild distress. Somnolent EYES: No scleral icterus, unremarkable pupils. ENT: Mucous membranes moist, no nasal congestion. NECK: No masses appreciated, nomeningismus, trachea is midline. RESPIRATORY: No dyspnea. Clear to auscultation and equal bilaterally. No wheeze, no rhonchi. CARDIOVASCULAR: Regular rate and rhythm.No murmurs, rubs, gallops appreciated. GASTROINTESTINAL: Abdomen soft with diffuse vague TTP, no peritonitis.Bowel sounds positive.No masses appreciated. BACK: No midline tenderness, no CVA tenderness EXTREMITIES: Normal motion all extremities, no cyanosis, bilateral chronic edema and peripheral vascular disease NEUROLOGIC: Somnolent but answers all questions. no acute motor or sensory deficits, no focal weakness, cranial nerves grossly intact. SKIN: No rash, no jaundice, no diaphoresis. PSYCH: Appropriate GCS: 14 ED Course: Times/Reassessments: many times throughout the night on repetitive evaluations. gradually improving and tolerates IV pain medications. Critical Care: I have personally spent 90 minutes of critical care time in the direct management of this patient. Acute hypotensive shock secondary to gi bleed in the setting of INR > 10. This was a life/limb threatening event. This 90 minutes is in excess of all separately billable procedures. Jay Cochran MD Past Med/Surg History Medical History AV fistula LEFT WRIST> NO DIALYSIS CURRENTLY> [facility] STILL WORKS PER PT BPH (benign prostatic hyperplasia) COVID-19 virus infection Dehydration DVT (deep venous thrombosis) Right- 04/2019 following transplant > Coumadin S/P LEFT LEG SURGERY (EXCISION OF MELANOMA LEFT LEG) 10 YEARS AGO. End stage renal disease follows Dr. 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 Chronic renal insufficiency s/p renal transplant - follows with nephro Per 07/17/20 surgeon note: "His transplant surgeons have cleared him to have this (hernia) repaired." GERD (gastroesophageal reflux disease) Gout History of malignant melanoma of skin Hyperlipidemia Hypertension Sarcoidosis Sleep apnea CPAP Surgical History H/O colonoscopy History of cardiac cath 01/2018 > [facility] > NO STENTS History of melanoma excision left calf History of tonsillectomy History of tooth extraction Kidney transplanted APR 04, 2019 > [facility] > right side Family History Mother Stroke Heart disease Grandmother Cancer Other Lung disease Social History Smoking Status: Never smoker Second Hand Exposure: No; Hx Alcohol Use: No Hx Substance Use: No Preferred Language: Croatian Communication Ability: Effective Supervisor Product Inspection Required: No Beliefs That Will Affect Care: None marital status: Current Living Situation: Spouse Current Living Situation Comment: sister and son as well current occupational status: employed current occupation: [employer] How many Children do You have: 1 Feels Safe at Home: Yes Assistive Devices: None Allergies Allergies Allergy/AdvReac Type Severity Reaction Status Date / Time allopurinol Allergy Unknown Rash Verified 09/10/20 00:49 Penicillins Allergy Unknown Unknown Verified 09/10/20 00:49 Home Meds Home Medications Medication Instructions Recorded Confirmed aspirin 81 mg tablet,delayed 81 mg PO QAM 04/24/19 09/10/20 release cholecalciferol (vitamin D3) 25 1,000 units PO QAM 04/24/19 09/10/20 mcg (1,000 unit) capsule docusate sodium 100 mg capsule 100 mg PO BID PRN 04/24/19 09/10/20 multivitamin 1 tab PO QAM 04/24/19 09/10/20 tamsulosin 0.4 mg capsule 0.4 mg PO HS 04/24/19 09/10/20 prednisone 5 mg tablet 5 mg PO QAM tab 05/29/19 09/10/20 sodium di- and 2 tab PO TID tab 05/29/19 09/10/20 monophosphate-potassium phos monobasic 250 mg tablet magnesium oxide 800 mg PO TID cap 01/11/20 09/10/20 mycophenolate mofetil 250 mg 1,000 mg PO BID cap 02/20/20 09/10/20 capsule febuxostat 80 mg tablet 80 mg PO QAM 03/06/20 09/10/20 cyclosporine 100 mg capsule 200 mg PO BID cap 03/19/20 09/10/20 gabapentin [Neurontin] 600 mg PO BID 08/17/20 09/10/20 losartan 100 mg PO QAM 08/17/20 09/10/20 warfarin 5 mg PO UD 09/02/20 09/10/20 Previous Rx's Medication Instructions Recorded furosemide 40 mg tablet 60 mg PO QAM #120 tab 05/09/20 omeprazole 40 mg capsule,delayed 40 mg PO QAM #90 cap 05/09/20 release gabapentin 300 mg capsule 900 mg PO HS #270 cap 06/14/20 simvastatin 40 mg tablet 40 mg PO HS #90 tab 06/17/20 duloxetine 20 mg capsule,delayed 20 mg PO QAM #90 cap 06/20/20 release cephalexin 500 mg PO BID 20 Days #40 cap 08/30/20 tramadol 50 mg tablet 50 mg PO Q8H PRN #20 tab 09/09/20 Results & Data (ED) Vital Signs Vital Signs - 24 hr 09/09/20 23:47 09/10/20 00:00 09/10/20 00:14 Temperature 36.7 C Temperature Source Oral Pulse Rate 63 63 62 Respiratory Rate 24 24 20 Blood Pressure 88/50 L 89/45 L 87/52 L Blood Pressure Mean 62 59 63 Blood Pressure Position Pulse Oximetry 96 96 100 Oxygen Delivery Method Room Air Sepsis New/Unexplained Change in Mental Status N/A Sepsis Action Taken by Nursing Physician Notified 09/10/20 00:15 09/10/20 00:30 09/10/20 00:59 Temperature Temperature Source Pulse Rate 62 64 65 Respiratory Rate 20 20 22 Blood Pressure 82/52 L 98/47 L 103/61 Blood Pressure Mean 62 64 75 Blood Pressure Position Pulse Oximetry 96 94 95 Oxygen Delivery Method Sepsis New/Unexplained Change in Mental Status Sepsis Action Taken by Nursing 09/10/20 01:00 09/10/20 01:15 09/10/20 01:49 Temperature Temperature Source Pulse Rate 67 57 L 56 L Respiratory Rate 26 H 20 20 Blood Pressure 108/43 L 108/63 102/72 Blood Pressure Mean 64 78 82 Blood Pressure Position Pulse Oximetry 96 93 95 Oxygen Delivery Method Sepsis New/Unexplained Change in Mental Status Sepsis Action Taken by Nursing 09/10/20 02:00 09/10/20 02:15 09/10/20 02:42 Temperature Temperature Source Pulse Rate 52 L 56 L 60 Respiratory Rate 18 18 20 Blood Pressure 125/73 121/73 131/90 Blood Pressure Mean 90 89 103 Blood Pressure Position Pulse Oximetry 96 97 97 Oxygen Delivery Method Sepsis New/Unexplained Change in Mental Status Sepsis Action Taken by Nursing 09/10/20 02:45 04/13/21 03:00 09/10/20 03:15 Temperature Temperature Source Pulse Rate 60 57 L 59 L Respiratory Rate 18 16 18 Blood Pressure 133/84 107/78 126/87 Blood Pressure Mean 100 87 100 Blood Pressure Position Pulse Oximetry 97 97 96 Oxygen Delivery Method Sepsis New/Unexplained Change in Mental Status Sepsis Action Taken by Nursing 09/10/20 03:21 09/10/20 03:22 09/10/20 03:30 Temperature 36.8 C Temperature Source Oral Pulse Rate 55 L 50 L 54 L Respiratory Rate 20 16 16 Blood Pressure 118/71 118/71 107/73 Blood Pressure Mean 86 86 84 Blood Pressure Position Pulse Oximetry 92 94 94 Oxygen Delivery Method Sepsis New/Unexplained Change in Mental Status Sepsis Action Taken by Nursing 09/10/20 03:35 09/10/20 03:45 09/10/20 03:52 Temperature 36.5 C 36.6 C Temperature Source Oral Oral Pulse Rate 63 63 57 L Respiratory Rate 18 16 18 Blood Pressure 122/83 117/71 114/79 Blood Pressure Mean 96 86 90 Blood Pressure Position Lying Pulse Oximetry 93 95 96 Oxygen Delivery Method Sepsis New/Unexplained Change in Mental Status Sepsis Action Taken by Nursing 09/10/20 03:53 09/10/20 04:00 09/10/20 04:15 Temperature Temperature Source Pulse Rate 54 L 58 L 65 Respiratory Rate 18 16 16 Blood Pressure 114/79 115/76 119/82 Blood Pressure Mean 90 89 94 Blood Pressure Position Pulse Oximetry 95 96 98 Oxygen Delivery Method Sepsis New/Unexplained Change in Mental Status Sepsis Action Taken by Nursing 09/10/20 04:22 09/10/20 04:30 09/10/20 04:45 Temperature 36.5 C Temperature Source Oral Pulse Rate 64 66 64 Respiratory Rate 16 18 20 Blood Pressure 129/83 129/90 131/75 Blood Pressure Mean 98 103 93 Blood Pressure Position Lying Pulse Oximetry 97 98 97 Oxygen Delivery Method Sepsis New/Unexplained Change in Mental Status Sepsis Action Taken by Nursing Laboratory Data Result diagrams: 09/09/20 23:55 09/09/20 23:55 Lab Results 09/09/20 09/09/20 09/09/20 Range/Units 23:55 23:55 23:55 WBC (4.8-10.8) K/uL RBC (4.7-6.1) M/uL Hgb (14.0-18.0) g/dL Hct (42-52) % MCV (80-100) fL MCH (25-34) pg MCHC (32-36) g/dL RDW Std Deviation (36.4-46.3) fL RDW Coeff of Theresa (11.5-14.5) % Plt Count (130-400) K/uL MPV (7.4-10.4) fL Immature Gran % (Auto) % Neut % (Auto) % Lymph % (Auto) % [place] % (Auto) % Eos % (Auto) % Baso % (Auto) % Neut # (Auto) (1.4-6.5) K/uL Lymph # (Auto) (1.2-3.4) K/uL [place] # (Auto) (0.11-0.59) K/uL Eos # (Auto) (0-0.5) K/uL Baso # (Auto) (0-0.2) K/uL Immature Gran # (Auto) (0.00-0.02) K/uL Giant Platelets Echinocytes PT > 90.0 H (9.0-12.0) Seconds INR > 10.7 H* (0.9-1.1) APTT 111.6 H* (21.0-31.0) Seconds PTT Ratio 4.2 Sodium 135 L (136-145) mmol/L Potassium 4.5 (3.5-5.1) mmol/L Chloride 103 (98-107) mmol/L Carbon Dioxide 19 L (21-32) mmol/L Anion Gap 13.0 H (3-11) BUN 46 H (7-18) mg/dl Creatinine 2.94 H D (0.6-1.4) mg/dl Est Cr Clr Drug Dosing 38.0 ml/min Est GFR ( Amer) 25.8 Est GFR (Non-Af Amer) 22.3 BUN/Creatinine Ratio 15.7 (10-20) Glucose 137 H (70-99) mg/dl Lactate (0.4-2.0) mmol/L Calcium 8.2 L (8.5-10.1) mg/dl Magnesium 2.2 (1.8-2.4) mg/dl Total Bilirubin 1.9 H (0.2-1) mg/dl Direct Bilirubin 1.3 H (0-0.2) mg/dl AST 49 H (15-37) U/L ALT 27 (12-78) U/L Alkaline Phosphatase 55 (45-117) U/L Total Creatine Kinase 449 H (39-308) U/L Troponin I < 0.015 (0-0.045) ng/ml Total Protein 6.0 L (6.4-8.2) gm/dl Albumin 2.8 L (3.4-5.0) gm/dl Lipase 222 (73-393) U/L Procalcitonin < 0.05 (0-0.5) ng/ml COVID-19 Eval Order SARS-CoV-2 (PCR) (Negative) Influenza Type A (PCR) (Neg) Influenza Type B (PCR) (Neg) RSV (RT-PCR) (Neg) Blood Type Antibody Screen Crossmatch 09/09/20 09/10/20 09/10/20 Range/Units 23:55 00:58 01:48 WBC 5.07 (4.8-10.8) K/uL RBC 2.61 L (4.7-6.1) M/uL Hgb 7.5 L (14.0-18.0) g/dL Hct 23.2 L (42-52) % MCV 88.9 (80-100) fL MCH 28.7 (25-34) pg MCHC 32.3 (32-36) g/dL RDW Std Deviation 48.1 H (36.4-46.3) fL RDW Coeff of Theresa 14.9 H (11.5-14.5) % Plt Count 286 (130-400) K/uL MPV 10.7 H (7.4-10.4) fL Immature Gran % (Auto) 6.1 % Neut % (Auto) 79.9 % Lymph % (Auto) 10.1 % [place] % (Auto) 3.9 % Eos % (Auto) 0.0 % Baso % (Auto) 0.0 % Neut # (Auto) 4.05 (1.4-6.5) K/uL Lymph # (Auto) 0.51 L (1.2-3.4) K/uL [place] # (Auto) 0.20 (0.11-0.59) K/uL Eos # (Auto) 0.00 (0-0.5) K/uL Baso # (Auto) 0.00 (0-0.2) K/uL Immature Gran # (Auto) 0.31 H (0.00-0.02) K/uL Giant Platelets 1+ Echinocytes 1+ PT (9.0-12.0) Seconds INR (0.9-1.1) APTT (21.0-31.0) Seconds PTT Ratio Sodium (136-145) mmol/L Potassium (3.5-5.1) mmol/L Chloride (98-107) mmol/L Carbon Dioxide (21-32) mmol/L Anion Gap (3-11) BUN (7-18) mg/dl Creatinine (0.6-1.4) mg/dl Est Cr Clr Drug Dosing ml/min Est GFR ( Amer) Est GFR (Non-Af Amer) BUN/Creatinine Ratio (10-20) Glucose (70-99) mg/dl Lactate 0.8 (0.4-2.0) mmol/L Calcium (8.5-10.1) mg/dl Magnesium (1.8-2.4) mg/dl Total Bilirubin (0.2-1) mg/dl Direct Bilirubin (0-0.2) mg/dl AST (15-37) U/L ALT (12-78) U/L Alkaline Phosphatase (45-117) U/L Total Creatine Kinase (39-308) U/L Troponin I (0-0.045) ng/ml Total Protein (6.4-8.2) gm/dl Albumin (3.4-5.0) gm/dl Lipase (73-393) U/L Procalcitonin (0-0.5) ng/ml COVID-19 Eval Order SARS-CoV-2 (PCR) (Negative) Influenza Type A (PCR) (Neg) Influenza Type B (PCR) (Neg) RSV (RT-PCR) (Neg) Blood Type A Positive Antibody Screen NEGATIVE Crossmatch See Detail 09/10/20 09/10/20 Range/Units 01:55 01:55 WBC (4.8-10.8) K/uL RBC (4.7-6.1) M/uL Hgb (14.0-18.0) g/dL Hct (42-52) % MCV (80-100) fL MCH (25-34) pg MCHC (32-36) g/dL RDW Std Deviation (36.4-46.3) fL RDW Coeff of Theresa (11.5-14.5) % Plt Count (130-400) K/uL MPV (7.4-10.4) fL Immature Gran % (Auto) % Neut % (Auto) % Lymph % (Auto) % [place] % (Auto) % Eos % (Auto) % Baso % (Auto) % Neut # (Auto) (1.4-6.5) K/uL Lymph # (Auto) (1.2-3.4) K/uL [place] # (Auto) (0.11-0.59) K/uL Eos # (Auto) (0-0.5) K/uL Baso # (Auto) (0-0.2) K/uL Immature Gran # (Auto) (0.00-0.02) K/uL Giant Platelets Echinocytes PT (9.0-12.0) Seconds INR (0.9-1.1) APTT (21.0-31.0) Seconds PTT Ratio Sodium (136-145) mmol/L Potassium (3.5-5.1) mmol/L Chloride (98-107) mmol/L Carbon Dioxide (21-32) mmol/L Anion Gap (3-11) BUN (7-18) mg/dl Creatinine (0.6-1.4) mg/dl Est Cr Clr Drug Dosing ml/min Est GFR ( Amer) Est GFR (Non-Af Amer) BUN/Creatinine Ratio (10-20) Glucose (70-99) mg/dl Lactate (0.4-2.0) mmol/L Calcium (8.5-10.1) mg/dl Magnesium (1.8-2.4) mg/dl Total Bilirubin (0.2-1) mg/dl Direct Bilirubin (0-0.2) mg/dl AST (15-37) U/L ALT (12-78) U/L Alkaline Phosphatase (45-117) U/L Total Creatine Kinase (39-308) U/L Troponin I (0-0.045) ng/ml Total Protein (6.4-8.2) gm/dl Albumin (3.4-5.0) gm/dl Lipase (73-393) U/L Procalcitonin (0-0.5) ng/ml COVID-19 Eval Order CovFluRsv at [facility] SARS-CoV-2 (PCR) POSITIVE A* (Negative) Influenza Type A (PCR) Negative (Neg) Influenza Type B (PCR) Negative (Neg) RSV (RT-PCR) Negative (Neg) Blood Type Antibody Screen Crossmatch Administered Medications Discontinued Medications Fentanyl Citrate (Fentanyl Citrate 100 Mcg/2 Ml Vial) 50 mcg IV NOW STA Stop: 09/10/20 01:03 Last Admin: 09/10/20 01:09 Dose: 50 mcg Documented by: [id number] Fentanyl Citrate (Fentanyl Citrate 100 Mcg/2 Ml Vial) 50 mcg IV NOW STA Stop: 09/10/20 03:08 Last Admin: 09/10/20 03:14 Dose: 50 mcg Documented by: [id number] Hydrocortisone Sodium Succinate (Hydrocortisone Sod Succinate 100 Mg/2 Ml Vial) 100 mg IV NOW STA Stop: 09/10/20 00:04 Last Admin: 09/10/20 00:31 Dose: 100 mg Documented by: [id number] Hydromorphone HCl (Hydromorphone Inj 0.5 Mg/0.5 Ml Syr) 0.5 mg IV NOW STA Stop: 09/10/20 04:30 Last Admin: 09/10/20 04:32 Dose: 0.5 mg Documented by: [id number] Hydromorphone HCl (Hydromorphone Inj 0.5 Mg/0.5 Ml Syr) 0.5 mg IV NOW STA Stop: 09/10/20 06:27 Last Admin: 09/10/20 06:28 Dose: 0.5 mg Documented by: [id number] Sodium Chloride (Nss 1000ml) 1,000 mls @ 999 mls/hr IV .Q1H1M ONE Stop: 09/10/20 01:03 Last Infusion: 09/10/20 01:29 Dose: 0 mls/hr Documented by: [id number] Admin: 09/10/20 00:10 Dose: 999 mls/hr Documented by: [id number] Sodium Chloride (Nss 1000ml) 1,000 mls @ 999 mls/hr IV .Q1H1M ONE Stop: 09/10/20 01:03 Last Infusion: 09/10/20 01:10 Dose: 0 mls/hr Documented by: [id number] Admin: 09/09/20 23:55 Dose: 999 mls/hr Documented by: [id number] Pantoprazole Sodium 80 mg/ (Dextrose) 100 mls @ 400 mls/hr IV ONE STA Stop: 09/10/20 00:49 Last Infusion: 09/10/20 01:15 Dose: 0 mls/hr Documented by: [id number] Admin: 09/10/20 00:59 Dose: 400 mls/hr Documented by: [id number] Phytonadione 10 mg/ Sodium (Chloride) 51 mls @ 102 mls/hr IV ONE ONE Stop: 09/10/20 01:31 Last Infusion: 09/10/20 01:59 Dose: 0 mls/hr Documented by: [id number] Admin: 09/10/20 01:29 Dose: 102 mls/hr Documented by: [id number] Prothrombin Complex Concent ( (Human) 5,000 units/ Syringe) 200 mls @ 10 mls/min IV NOW ONE; Protocol Stop: 09/10/20 01:34 Last Admin: 09/10/20 01:52 Dose: 10 mls/min Documented by: [id number] Imaging Data Radiologist's Impression: Chest X-Ray 09/10/20 00:04 XR chest 1V portable CLINICAL HISTORY: syncope COMPARISON STUDY: Chest radiograph September 02, 2020. FINDINGS: Lung volumes are normal. No pneumothorax or pleural effusion is noted. Cardiomegaly is unchanged. Bilateral airspace opacities persist. These are similar to prior exam IMPRESSION: Persistent bilateral airspace opacities which favor an infectious process such as viral pneumonia. ACT 112: Negative or not required by law. Electronically signed by: Tray Owen M.D. 09/10/2020 6:[address] 09/10/20 00:30 CT OF THE HEAD WITHOUT CONTRAST CLINICAL HISTORY: syncope COMPARISON STUDY: MRI of the brain March 16, 2019. CT DOSE: 998.18 mGy.cm TECHNIQUE: Helical axial images of the head were obtained without IV contrast. Automated exposure control was utilized for the study. A dose lowering technique was utilized adhering to the principles of ALARA. FINDINGS: Exam is mildly compromised by motion artifact. No acute intracranial hemorrhage, midline shift or mass effect is present. The ventricular system is unremarkable. The basal cisterns are patent. No extra-axial collections are present. There are no findings to suggest acute dural sinus thrombosis or acute territorial infarct. No significant calvarial abnormalities are present. Vis ualized portions of the sinuses and mastoid air cells are clear. IMPRESSION: No acute intracranial findings. ACT 112: Negative or not required by law. Electronically signed by: Tray Owen M.D. 09/10/2020 6:35 AM Discharge Plan Visit Data Chief Complaint: Syncope Stated Complaint: SYNCOPE/WEAK ED Provider: Jay Cochran Discharge Problem: Hypotensive syncope, Acute blood loss anemia, Acute GI bleeding, Abdominal wall hematoma, Elevated INR Discharge Instructions Interventions: ED Discharge Assessment Last Done: 09/10/20 07:05
[2020-09-10 00:22] LABS: Hematocrit (blood only) 23.2 % (42-52); Hemoglobin 7.5 g/dL (14.0-18.0); Mean Corpuscular Hemoglobin 28.7 pg (25-34); Mean Corpuscular Hgb Conc 32.3 g/dL (32-36); Mean Corpuscular Volume 88.9 fL (80-100); Mean Platelet Volume 10.7 fL (7.4-10.4); Platelet Count 286 K/uL (130-400); RDW Coefficient of Variation 14.9 % (11.5-14.5); RDW Standard Deviation 48.1 fL (36.4-46.3); Red Blood Count 2.61 M/uL (4.7-6.1); White Blood Count 5.07 K/uL (4.8-10.8)
[2020-09-10 00:32] LABS: Alanine Aminotransferase 27 U/L (12-78); Albumin Level 2.8 gm/dl (3.4-5.0); Aspartate Aminotransferase 49 U/L (15-37); BUN Creatinine Ratio 15.7 (10-20); Bilirubin Direct 1.3 mg/dl (0-0.2); Blood Urea Nitrogen 46 mg/dl (7-18); Calcium 8.2 mg/dl (8.5-10.1); Carbon Dioxide 19 mmol/L (21-32); Chloride 103 mmol/L (98-107); Est GFR (African American) 25.8; Est GFR (Non-African American) 22.3; Glucose 137 mg/dl (70-99); Lipase 222 U/L (73-393); Magnesium 2.2 mg/dl (1.8-2.4); Potassium 4.5 mmol/L (3.5-5.1); Sodium 135 mmol/L (136-145)
[2020-09-10 00:35] LABS: Alkaline Phosphatase 55 U/L (45-117); Bilirubin,Total 1.9 mg/dl (0.2-1); Creatine Kinase 449 U/L (39-308); Troponin I < 0.015 ng/ml (0-0.045)
[2020-09-10] MEDS ORDERED: PANTOprazole 80 MG in DEXTROSE 5% 100 ML IV STA (00:35)
[2020-09-10] MEDS ORDERED: SODIUM CHLORIDE 0.9% 250 ML IV PRN ×2 (00:35→13:03)
[2020-09-10 00:42] LABS: Partial Thromboplastin Ratio 4.2; Prothrombin Time > 90.0 Seconds (9.0-12.0)
[2020-09-10 00:52] LABS: INR > 10.7 (0.9-1.1); Partial Thromboplastin Time 111.6 Seconds (21.0-31.0)
[2020-09-10 00:53] LABS: Echinocytes 1+; Giant Platelets 1+; Immature Granulocytes # (auto) 0.31 K/uL (0.00-0.02); Immature Granulocytes % (auto) 6.1 %; Lymphocytes # (auto) 0.51 K/uL (1.2-3.4); Lymphocytes % (auto) 10.1 %; Monocytes % (auto) 3.9 %; Neutrophils # (auto) 4.05 K/uL (1.4-6.5); Neutrophils % (auto) 79.9 %
[2020-09-10] MEDS ORDERED: fentaNYL citrate 100 MCG/2 ML VIAL IV STA ×2 (01:02→03:07)
[2020-09-10] MEDS ORDERED: PHYTONADIONE 10 MG in SODIUM CHLORIDE 0.9% 50 ML IV ONE (01:02)
[2020-09-10] MEDS ORDERED: PROTHROMBIN COMP CONC- KCENTRA 5,000 UNITS in SYRINGE 0 ML IV ONE (01:15)
[2020-09-10 03:08] LABS: Influenza A virus by PCR Negative (Neg); Influenza B virus by PCR Negative (Neg); RSV by PCR Negative (Neg)
[2020-09-10 03:16] LABS: SARS CoV2 RNA(COVID-19) InHosp POSITIVE (Negative)
--- NOTE | 2020-09-10 04:16 | History & Physical Report ---
Date of Service September 10, 2020 Assessment & Plan (1) Symptomatic anemia: Symptomatic anemia/supratherapeutic INR- Hemoglobin 7.5 upon admission To receive 1 unit PRBCs from the ED then retest. Hemoccult stools. Defer rectal examination due to immunocompromise state. H&H every 6 hours. NPO for now, but if Hemoccult test was negative may likely go ahead and resume oral intake and loss of hemoglobin in fact just be intravascular hemolysis. No suggestion of abdominal or retroperitoneal bleeding on exam. Present on Admission?: Yes (2) Supratherapeutic INR: INR greater than 10.7 upon admission and PTT 111.6. He has been continue take his warfarin dosing, with the decreased oral intake over the past several days. He is also been on antibiotic, for his UTI, which is likely contributing to his supratherapeutic state. He was given reversal in the ED, and will repeat INR at 11 AM this morning. Present on Admission?: Yes (3) COVID-19: Presently testing positive for COVID-19 again, but not symptomatic. He replaced in an isolated room, but does not need to be in the Covid diaz. Present on Admission?: Yes (4) Renal transplant recipient: Renal transplant recipient/chronically immunocompromise- Continue cyclosporine, mycophenolate. Hold prednisone, placed on stress dose steroids Present on Admission?: Yes (5) Hypercholesteremia: Hold simvastatin while patient is n.p.o. Present on Admission?: Yes (6) Hypertension: Hold meds Present on Admission?: Yes (7) Neuropathy: (8) GERD (gastroesophageal reflux disease): Famotidine 20 mg IV every 12 hours Present on Admission?: Yes (9) Immunocompromised: See above Present on Admission?: Yes (10) UTI (urinary tract infection): Hold oral Keflex. Patient to place on 30 days of oral antibiotics for UTI. He and his report that his symptoms have been improved since he started on Keflex. Placed on ceftriaxone 2 g IV daily Present on Admission?: Yes History of Present Illness Chief Complaint: The patient presents to the emergency department with his accompanying, with complaint of severe dyspnea on exertion over the past 2 to 3 days. Primary Care Provider: Davion Pablo MD The patient is a 60-year-old male with a past medical history including chronic renal sufficiency, renal transplant patient, history malignant melanoma of skin, gout, neuropathy, hypertension, hypercholesterolemia, obesity, GERD, sarcoidosis, venous insufficiency, polyarthritis, FARNAZ, chronic anticoagulation, depression, chronic immunosuppressed state due to medications and DVT. He was found to be COVID-19 positive on 08/19/2020 during routine preop testing for hernia repair. He later became symptomatic, requiring admission from 08/28- 08/30/2020. His reports that he had been feeling somewhat better, however, he did develop a urinary tract infection in the interim, he was placed on Keflex for that treatment. Over the past several days he has gradually become more lethargic, and had significant dyspnea on exertion with shorter and shorter walks. He did have an episode of passing out on the bed at home, which prompted his visit to the ED. In the emergency department, his hemoglobin was found to be 7.5, his INR was greater than 10.7, and PTT was 111.6. His COVID-19 testing was positive again this admission. The patient was prescribed 1 unit PRBCs by the emergency department, and hemoglobin will be rechecked upon admission. Of note, he had no change in bowel function. Allergies Allergy/AdvReac Type Severity Reaction Status Date / Time allopurinol Allergy Unknown Rash Verified 09/10/20 00:49 Penicillins Allergy Unknown Unknown Verified 09/10/20 00:49 Home Medications Medication Instructions Recorded Confirmed Type aspirin 81 mg tablet,delayed 81 mg PO QAM 04/24/19 09/10/20 History release cholecalciferol (vitamin D3) 25 1,000 units PO QAM 04/24/19 09/10/20 History mcg (1,000 unit) capsule docusate sodium 100 mg capsule 100 mg PO BID PRN 04/24/19 09/10/20 History multivitamin 1 tab PO QAM 04/24/19 09/10/20 History tamsulosin 0.4 mg capsule 0.4 mg PO HS 04/24/19 09/10/20 History prednisone 5 mg tablet 5 mg PO QAM tab 05/29/19 09/10/20 History sodium di- and 2 tab PO TID tab 05/29/19 09/10/20 History monophosphate-potassium phos monobasic 250 mg tablet magnesium oxide 800 mg PO TID cap 01/11/20 09/10/20 History mycophenolate mofetil 250 mg 1,000 mg PO BID cap 02/20/20 09/10/20 History capsule febuxostat 80 mg tablet 80 mg PO QAM 03/06/20 09/10/20 History cyclosporine 100 mg capsule 200 mg PO BID cap 03/19/20 09/10/20 History furosemide 40 mg tablet 60 mg PO QAM #120 tab 05/09/20 09/10/20 Rx omeprazole 40 mg capsule,delayed 40 mg PO QAM #90 cap 05/09/20 09/10/20 Rx release gabapentin 300 mg capsule 900 mg PO HS #270 cap 06/14/20 09/10/20 Rx simvastatin 40 mg tablet 40 mg PO HS #90 tab 06/17/20 09/10/20 Rx duloxetine 20 mg capsule,delayed 20 mg PO QAM #90 cap 06/20/20 09/10/20 Rx release gabapentin [Neurontin] 600 mg PO BID 08/17/20 09/10/20 History losartan 100 mg PO QAM 08/17/20 09/10/20 History cephalexin 500 mg PO BID 20 Days #40 cap 08/30/20 09/10/20 Rx warfarin 5 mg PO UD 09/02/20 09/10/20 History tramadol 50 mg tablet 50 mg PO Q8H PRN #20 tab 09/09/20 09/10/20 Rx Past Med/Surg History Medical History AV fistula LEFT WRIST> NO DIALYSIS CURRENTLY> [facility] STILL WORKS PER PT BPH (benign prostatic hyperplasia) COVID-19 virus infection Dehydration DVT (deep venous thrombosis) Right- 04/2019 following transplant > Coumadin S/P LEFT LEG SURGERY (EXCISION OF MELANOMA LEFT LEG) 10 YEARS AGO. End stage renal disease follows Dr. 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 Chronic renal insufficiency s/p renal transplant - follows with nephro Per 07/17/20 surgeon note: "His transplant surgeons have cleared him to have this (hernia) repaired." GERD (gastroesophageal reflux disease) Gout History of malignant melanoma of skin Hyperlipidemia Hypertension Sarcoidosis Sleep apnea CPAP Surgical History H/O colonoscopy History of cardiac cath 01/2018 > [facility] > NO STENTS History of melanoma excision left calf History of tonsillectomy History of tooth extraction Kidney transplanted APR 04, 2019 > [facility] > right side Family History Mother Stroke Heart disease Grandmother Cancer Other Lung disease Social History Smoking Status: Never smoker Second Hand Exposure: No; Hx Alcohol Use: No Hx Substance Use: No Preferred Language: Romanian Communication Ability: Effective Design Coordinator Required: No Beliefs That Will Affect Care: None marital status: Current Living Situation: Spouse Current Living Situation Comment: sister and son as well current occupational status: employed current occupation: [employer] How many Children do You have: 1 Feels Safe at Home: Yes Assistive Devices: None Review of Systems Review of Systems: The patient denies chest pain, palpitations, lower extremity swelling, sore throat, fevers, chills, sweats, vomiting, diarrhea , constipation, abdominal pain, pelvic pain, blood in urine or stool, rash, abnormal bruising or bleeding, focal weakness, numbness or tingling in arms or legs, back or neck pain, or night sweats. The review of systems is otherwise negative other than for that already noted above, and at least 10 systems have been reviewed. Physical Exam Physical Exam: The patient is awake, alert and oriented 3, mildly lethargic, normocephalic and atraumatic, lying in bed and in no acute distress. HEENT--PERRL, EOMI, mucous membranes and oropharynx dry. Neck--supple. No JVD. No bruits. Thyroid normal, trachea midline, no adenopath y. Heart--normal S1 and S2. No murmurs, rubs or gallops. Lungs--clear bilaterally, no respiratory distress, no accessory muscle use. Abdomen--normal bowel sounds and soft. Nontender. Nondistended, morbidly obese Extremities--no cyanosis or clubbing. No edema. Dermatologic--normal skin turgor, normal color, no abnormal lymph nodes, no rash. Neurologic--cranial nerves II through XII grossly intact. Rheumatologic--limited exam Psychiatric--normal affect. Results & Data Results & Data ([facility]) Vital Signs (Past 12 Hours) Vital Signs Temp Pulse Resp BP Pulse Ox 09/10/20 03:52 97.9 F 57 L 18 114/79 96 09/10/20 03:35 97.7 F 62 16 122/83 96 09/10/20 03:21 98.2 F 55 L 20 118/71 92 09/10/20 02:42 60 20 131/90 97 09/10/20 02:15 56 L 18 121/73 97 09/10/20 02:00 52 L 18 125/73 96 09/10/20 01:49 56 L 20 102/72 95 09/10/20 01:15 57 L 20 108/63 93 09/10/20 01:00 67 26 H 108/43 L 96 09/10/20 00:59 65 22 103/61 95 09/10/20 00:30 64 20 98/47 L 94 09/10/20 00:15 62 20 82/52 L 96 09/10/20 00:14 62 20 87/52 L 100 09/10/20 00:00 63 24 89/45 L 96 09/09/20 23:47 98.1 F 63 24 88/50 L 96 Laboratory Results Laboratory Results WBC 5.07 K/uL (4.8-10.8) 09/09/20 23:55 RBC 2.61 M/uL (4.7-6.1) L 09/09/20 23:55 Hgb 7.5 g/dL (14.0-18.0) L 09/09/20 23:55 Hct 23.2 % (42-52) L 09/09/20 23:55 MCV 88.9 fL (80-100) 09/09/20 23:55 MCH 28.7 pg (25-34) 09/09/20 23:55 MCHC 32.3 g/dL (32-36) 09/09/20 23:55 RDW Std Deviation 48.1 fL (36.4-46.3) H 09/09/20 23:55 RDW Coeff of Theresa 14.9 % (11.5-14.5) H 09/09/20 23:55 Plt Count 286 K/uL (130-400) 09/09/20 23:55 MPV 10.7 fL (7.4-10.4) H 09/09/20 23:55 Immature Gran % (Auto) 6.1 % 09/09/20 23:55 Neut % (Auto) 79.9 % 09/09/20 23:55 Lymph % (Auto) 10.1 % 09/09/20 23:55 [place] % (Auto) 3.9 % 09/09/20 23:55 Eos % (Auto) 0.0 % 09/09/20 23:55 Baso % (Auto) 0.0 % 09/09/20 23:55 Neut # (Auto) 4.05 K/uL (1.4-6.5) 09/09/20 23:55 Lymph # (Auto) 0.51 K/uL (1.2-3.4) L 09/09/20 23:55 [place] # (Auto) 0.20 K/uL (0.11-0.59) 09/09/20 23:55 Eos # (Auto) 0.00 K/uL (0-0.5) 09/09/20 23:55 Baso # (Auto) 0.00 K/uL (0-0.2) 09/09/20 23:55 Immature Gran # (Auto) 0.31 K/uL (0.00-0.02) H 09/09/20 23:55 Giant Platelets 1+ 09/09/20 23:55 Echinocytes 1+ 09/09/20 23:55 PT > 90.0 Seconds (9.0-12.0) H 09/09/20 23:55 INR > 10.7 (0.9-1.1) H* 09/09/20 23:55 APTT 111.6 Seconds (21.0-31.0) H* 09/09/20 23:55 PTT Ratio 4.2 09/09/20 23:55 Sodium 135 mmol/L (136-145) L 09/09/20 23:55 Potassium 4.5 mmol/L (3.5-5.1) 09/09/20 23:55 Chloride 103 mmol/L (98-107) 09/09/20 23:55 Carbon Dioxide 19 mmol/L (21-32) L 09/09/20 23:55 Anion Gap 13.0 (3-11) H 09/09/20 23:55 BUN 46 mg/dl (7-18) H 09/09/20 23:55 Creatinine 2.94 mg/dl (0.6-1.4) H D 09/09/20 23:55 Est Cr Clr Drug Dosing 38.0 ml/min 09/09/20 23:55 Est GFR ( Amer) 25.8 09/09/20 23:55 Est GFR (Non-Af Amer) 22.3 09/09/20 23:55 BUN/Creatinine Ratio 15.7 (10-20) 09/09/20 23:55 Glucose 137 mg/dl (70-99) H 09/09/20 23:55 Lactate 0.8 mmol/L (0.4-2.0) 09/10/20 01:48 Calcium 8.2 mg/dl (8.5-10.1) L 09/09/20 23:55 Magnesium 2.2 mg/dl (1.8-2.4) 09/09/20 23:55 Total Bilirubin 1.9 mg/dl (0.2-1) H 09/09/20 23:55 Direct Bilirubin 1.3 mg/dl (0-0.2) H 09/09/20 23:55 AST 49 U/L (15-37) H 09/09/20 23:55 ALT 27 U/L (12-78) 09/09/20 23:55 Alkaline Phosphatase 55 U/L (45-117) 09/09/20 23:55 Total Creatine Kinase 449 U/L (39-308) H 09/09/20 23:55 Troponin I < 0.015 ng/ml (0-0.045) 09/09/20 23:55 Total Protein 6.0 gm/dl (6.4-8.2) L 09/09/20 23:55 Albumin 2.8 gm/dl (3.4-5.0) L 09/09/20 23:55 Lipase 222 U/L (73-393) 09/09/20 23:55 Procalcitonin < 0.05 ng/ml (0-0.5) 09/09/20 23:55 COVID-19 Eval Order CovFluRsv at [facility] 09/10/20 01:55 SARS-CoV-2 (PCR) POSITIVE (Negative) A* 09/10/20 01:55 Influenza Type A (PCR) Negative (Neg) 09/10/20 01:55 Influenza Type B (PCR) Negative (Neg) 09/10/20 01:55 RSV (RT-PCR) Negative (Neg) 09/10/20 01:55 Blood Type A Positive 09/10/20 00:58 Antibody Screen NEGATIVE 09/10/20 00:58 Crossmatch See Detail 09/10/20 00:[address] 09/10/20 00:30 CT OF THE HEAD WITHOUT CONTRAST CLINICAL HISTORY: syncope COMPARISON STUDY: MRI of the brain March 16, 2019. CT DOSE: 998.18 mGy.cm TECHNIQUE: Helical axial images of the head were obtained without IV contrast. Automated exposure control was utilized for the study. A dose lowering technique was utilized adhering to the principles of ALARA. FINDINGS: Exam is mildly compromised by motion artifact. No acute intracranial hemorrhage, midline shift or mass effect is present. The ventricular system is unremarkable. The basal cisterns are patent. No extra-axial collections are present. There are no findings to suggest acute dural sinus thrombosis or acute territorial infarct. No significant calvarial abnormalities are present. Visualized portions of the sinuses and mastoid air cells are clear. IMPRESSION: No acute intracranial findings. ACT 112: Negative or not required by law. Electronically signed by: Tray Owen M.D. 09/10/2020 6:35 AM Code Status & VTE Plan Code Status Full code VTE Prophylaxis Plan VTE Prophylaxis will be ordered: Yes PG Care Time/CCT Total # of Minutes Spent Total Time Spent with Patient: Total time spent is greater than 50% in coordination of care (as documented) at patient's floor/unit and/or counseling patient: Coding Level of Care Code 40064 Initial Inpt Care Lvl 3 Diagnoses Symptomatic anemia D64.9 Supratherapeutic INR R79.1 COVID-19 U07.1 Renal transplant recipient Z94.0 Hypercholesteremia E78.00 Hypertension I10 Hypertension type: essential hypertension Neuropathy G62.9 GERD (gastroesophageal reflux disease) K21.9 Immunocompromised D89.9 UTI (urinary tract infection) N39.0 (1) Hypertension Hypertension type: essential hypertension Qualified Code(s): I10 - Essential (primary) hypertension
[2020-09-10] MEDS ORDERED: HYDROmorphone INJ 0.5 MG/0.5 ML SYR IV STA ×2 (04:29→06:26)
[2020-09-10] MEDS ORDERED: HYDROmorphone INJ 0.5 MG/0.5 ML SYR IV PRN ×2 (06:26→20:46)
--- NOTE | 2020-09-10 06:37 | CT Scan Report ---
CT OF THE HEAD WITHOUT CONTRAST CLINICAL HISTORY: syncope COMPARISON STUDY: MRI of the brain March 16, 2019. CT DOSE: 998.18 mGy.cm TECHNIQUE: Helical axial images of the head were obtained without IV contrast. Automated exposure con trol was utilized for the study. A dose lowering technique was utilized adhering to the principles o f ALARA. FINDINGS: Exam is mildly compromised by motion artifact. No acute intracranial hemorrhage, midline sh ift or mass effect is present. The ventricular system is unremarkable. The basal cisterns are patent. No extra-axial collections are present. There are no findings to suggest acute dural sinus thrombosi s or acute territorial infarct. No significant calvarial abnormalities are present. Visualized portio ns of the sinuses and mastoid air cells are clear. IMPRESSION: No acute intracranial findings. ACT 112: Negative or not required by law. Electronically signed by: Tray Owen M.D. 09/10/2020 6:35 AM
--- NOTE | 2020-09-10 06:46 | XRay Report ---
XR chest 1V portable CLINICAL HISTORY: syncope COMPARISON STUDY: Chest radiograph September 02, 2020. FINDINGS: Lung volumes are normal. No pneumothorax or pleural effusion is noted. Cardiomegaly is unch anged. Bilateral airspace opacities persist. These are similar to prior exam IMPRESSION: Persistent bilateral airspace opacities which favor an infectious process such as viral pneumonia. ACT 112: Negative or not required by law. Electronically signed by: Tray Owen M.D. 09/10/2020 6:45 AM
[2020-09-10] MEDS ORDERED: HYDROCORTISONE SOD SUCCINATE 100 MG/2 ML VIAL IV SCH (07:00)
--- NOTE | 2020-09-10 08:25 | CT Scan Report ---
ABDOMEN AND PELVIS CT WITHOUT CONTRAST CT DOSE: 2191.88 mGy.cm HISTORY: Acute syncope with abdominal pain and anemia syncope, abdominal pain, anemia TECHNIQUE: Multiaxial CT images of the abdomen and pelvis were performed without contrast. A dose lo wering technique was utilized adhering to the principles of ALARA. COMPARISON STUDY: CT abdomen and pelvis 09/02/2020 FINDINGS: Calcified hilar lymph nodes and pulmonary nodules. Bibasilar groundglass and consolidative opacities. Noncalcified pulmonary nodules in the bilateral lung bases measuring up to 5 mm are redemo nstrated and unchanged suggestive of noncalcified granulomata. Decreased attenuation of the cardiac b lood pool compatible with anemia. Mild bibasilar bronchiectasis. No pneumatosis or pneumoperitoneum. Hepatic steatosis. The unenhanced spleen, pancreas, gallbladder and adrenal glands are unremarkable. Severe atrophy of the bilateral kidneys. Lesions of the bilateral kidneys are again noted which are incompletely characterized on this noncontrast study and statistically favor combination of simple an d complex cysts. This includes a simple 2.6 cm cyst of the left kidney. No hydronephrosis. Transplant ed kidney of the abdominal right lower quadrant appears unremarkable. Mild bladder wall thickening wi th partial distention. Mild prostamegaly. Small fat filled left inguinal hernia. Small fat filled per iumbilical hernia. No aortic aneurysm or adenopathy. No bowel obstruction or bowel wall thickening. No CT evidence of acute appendicitis. There is a large left rectus sheath acute hematoma with hematocrit level measuring up to 14 cm transversely, 6.8 cm i n AP dimension and over 30 cm in craniocaudal dimension. No acute fracture. IMPRESSION: 1. Large acute left-sided rectus sheath hematoma measures over 30 cm in length. 2. Bibasilar groundglass densities redemonstrated suspicious for viral pneumonia. 3. No bowel obstruction or bowel wall thickening. 4. Severe atrophy of the [place] kidneys with unremarkable appearance of the transplanted kidney of th e right pelvis. 5. Additional findings as above. ACT 112: Negative or not required by law. The above report was generated using voice recognition software. It may contain grammatical, syntax o r spelling errors. Electronically signed by: Karl Miller M.D. 09/10/2020 8:24 AM
[2020-09-10] MEDS: cycloSPORINE 100 MG CAP PO SCH ×2 (09:09→21:57)
[2020-09-10] MEDS: MYCOPHENOLATE MOFETIL 250 MG CAP PO SCH ×2 (09:09→21:58)
[2020-09-10] MEDS: SODIUM CHLORIDE 0.9% 1000ML 1,000 ML IV SCH ×2 (09:11→22:15)
[2020-09-10] MEDS: HYDROCORTISONE SOD 50 MG in SYRINGE 0 ML IV SCH ×2 (09:12→16:52)
[2020-09-10] MEDS: FAMOTIDINE 20 MG in SYRINGE 3 ML IV SCH ×2 (09:13→21:56)
[2020-09-10] MEDS: cefTRIAXone SODIUM 2,000 MG in DEXTROSE 5% 50 ML IV SCH (09:14)
[2020-09-10 09:20] LABS: Hematocrit (blood only) 25.1 % (42-52); Hemoglobin 8.2 g/dL (14.0-18.0)
[2020-09-10] MEDS ORDERED: HYDROmorphone PCA 30 MG/30 ML IV PRN (09:53)
[2020-09-10] MEDS ORDERED: HYDROmorphone INJ 1 MG/ML SYRINGE IV STA (09:53)
[2020-09-10] MEDS ORDERED: NALOXONE HCL 0.4 MG/1 ML VIAL/CARP IV PRN (09:53)
[2020-09-10] MEDS ORDERED: ACETAMINOPHEN 325 MG TAB PO STA (09:55)
[2020-09-10] MEDS ORDERED: SODIUM CHLORIDE 0.9% 1000ML 1,000 ML IV SCH (10:00)
[2020-09-10 13:00] LABS: Hemoglobin 7.1 g/dL (14.0-18.0); Mean Corpuscular Hemoglobin 29.5 pg (25-34); Mean Corpuscular Hgb Conc 33.8 g/dL (32-36); Mean Corpuscular Volume 87.1 fL (80-100); Mean Platelet Volume 10.5 fL (7.4-10.4); Platelet Count 274 K/uL (130-400); RDW Coefficient of Variation 14.8 % (11.5-14.5); RDW Standard Deviation 47.6 fL (36.4-46.3); Red Blood Count 2.41 M/uL (4.7-6.1); White Blood Count 5.27 K/uL (4.8-10.8)
[2020-09-10 13:08] LABS: INR 1.1 (0.9-1.1); Prothrombin Time 11.5 Seconds (9.0-12.0)
[2020-09-10 13:19] LABS: Dohle Bodies 1+; Echinocytes 1+; Immature Granulocytes # (auto) 0.35 K/uL (0.00-0.02); Immature Granulocytes % (auto) 6.6 %; Lymphocytes % (auto) 7.6 %; Monocytes # (auto) 0.22 K/uL (0.11-0.59); Monocytes % (auto) 4.2 %; Neutrophils % (auto) 81.6 %
[2020-09-10 13:56] LABS: Hematocrit (blood only) 21.4 % (42-52); Hemoglobin 7.2 g/dL (14.0-18.0)
[2020-09-10] MEDS: ACETAMINOPHEN 325 MG TAB PO SCH ×2 (14:04→22:00)
[2020-09-10 20:09] LABS: Hematocrit (blood only) 23.5 % (42-52); Hemoglobin 7.6 g/dL (14.0-18.0)
[2020-09-10] MEDS: HYDROmorphone INJ 0.5 MG/0.5 ML SYR IV PRN (21:04)
--- NOTE | 2020-09-10 21:09 | Communication Note ---
Date of Service: September 10, 2020 Seen in follow-up from early a.m. admission. Significant anterior abdominal pain not relieved by pain meds ordered. Abdomen soft on the right fairly firm and exquisitely tender on the left, feeling fairly superficial. CT reviewed, labs reviewed. Rectus sheath hematoma with acute blood loss anemia thus far requiring 2 units transfusion, stemming from Coumadin coagulopathy, which in turn likely stemmed from poor p.o. intake in the face of ongoing medical adherence to his Coumadin regimen brought on by recent COVID-19 infection. -Continue to follow hemoglobin, continue to follow hemodynamics, transfuse as needed. INR appears to be reversed, and long enough after [place] that it is probably not just transient. Will need to follow closely for any signs of DVT, as we will need to have him off of his anticoagulation for a bit while this stabilizes. LORENZO on CKD is probably from acute blood loss anemia and poor forward flow, anticipate improvement with transfusion. Pain controlescalated to [employer] SALESPERSON for the time being.
[2020-09-10] MEDS: DOCUSATE SODIUM/SENNA 50/8.6MG TAB PO SCH (21:57)
[2020-09-11] MEDS: HYDROCORTISONE SOD 50 MG in SYRINGE 0 ML IV SCH ×3 (00:50→16:00)
[2020-09-11 01:56] LABS: Hematocrit (blood only) 22.4 % (42-52); Hemoglobin 7.4 g/dL (14.0-18.0)
[2020-09-11 05:58] LABS: Hematocrit (blood only) 21.3 % (42-52); Mean Corpuscular Hemoglobin 28.9 pg (25-34); Mean Corpuscular Hgb Conc 32.9 g/dL (32-36); Mean Platelet Volume 10.3 fL (7.4-10.4); Nucleated RBC # (auto) 0.02 K/uL (0-0); Nucleated RBC % (auto) 0.2 %; Platelet Count 290 K/uL (130-400); RDW Coefficient of Variation 15.1 % (11.5-14.5); RDW Standard Deviation 49.1 fL (36.4-46.3); Red Blood Count 2.42 M/uL (4.7-6.1); White Blood Count 7.73 K/uL (4.8-10.8)
[2020-09-11 06:17] LABS: INR 1.2 (0.9-1.1); Prothrombin Time 11.9 Seconds (9.0-12.0)
--- NOTE | 2020-09-11 06:17 | Electrocardiogram Report ---
Test Reason : Blood Pressure : / mmHG Vent. Rate : 063 BPM Atrial Rate : 063 BPM P-R Int : 156 ms QRS Dur : 102 ms QT Int : 468 ms P-R-T Axes : 041 -36 014 degrees QTc Int : 478 ms Normal sinus rhythm Left axis deviation Incomplete right bundle branch block Minimal voltage criteria for LVH, may be normal variant Abnormal ECG When compared with ECG of 02-SEP-2020 13:53, No significant change was found Confirmed by Brayden Marte ([id number]) on 09/11/2020 6:16:48 AM Referred By: REFERRED SELF Confirmed By:Brayden Marte
[2020-09-11 06:24] LABS: Albumin Level 2.5 gm/dl (3.4-5.0); BUN Creatinine Ratio 17.8 (10-20); Calcium 7.7 mg/dl (8.5-10.1); Creatinine Clr Calc Pharmacy 34.3 ml/min; Echinocytes 1+; Est GFR (African American) 22.5; Est GFR (Non-African American) 19.4; Immature Granulocytes # (auto) 0.55 K/uL (0.00-0.02); Immature Granulocytes % (auto) 7.1 %; Lymphocytes # (auto) 0.46 K/uL (1.2-3.4); Monocytes # (auto) 0.39 K/uL (0.11-0.59); Neutrophils # (auto) 6.33 K/uL (1.4-6.5); Neutrophils % (auto) 81.9 %; Potassium 4.6 mmol/L (3.5-5.1)
[2020-09-11 06:27] LABS: Albumin Globulin Ratio 0.8 (0.9-2); Bilirubin,Total 1.6 mg/dl (0.2-1); Total Protein 5.5 gm/dl (6.4-8.2)
[2020-09-11] MEDS: MYCOPHENOLATE MOFETIL 250 MG CAP PO SCH ×2 (08:23→20:06)
[2020-09-11] MEDS: ACETAMINOPHEN 325 MG TAB PO SCH ×3 (08:23→20:05)
[2020-09-11] MEDS: cycloSPORINE 100 MG CAP PO SCH ×2 (08:23→20:05)
[2020-09-11] MEDS: DOCUSATE SODIUM/SENNA 50/8.6MG TAB PO SCH ×2 (08:23→20:06)
[2020-09-11] MEDS: HYDROmorphone INJ 0.5 MG/0.5 ML SYR IV PRN ×3 (08:24→19:59)
[2020-09-11] MEDS: cefTRIAXone SODIUM 2,000 MG in DEXTROSE 5% 50 ML IV SCH (08:34)
[2020-09-11] MEDS: FAMOTIDINE 20 MG in SYRINGE 3 ML IV SCH ×2 (08:34→20:05)
--- NOTE | 2020-09-11 10:17 | Nephrology Consultation ---
Date of Consultation September 11, 2020 Assessment & Plan (1) Renal transplant recipient: (2) Acute on chronic renal insufficiency: Mr. MONTE has a long and complicated medical history. 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 He initially did well until he developed a DVT in the summer 2019. Subsequently, he showed evidence of significant proteinuria and a renal biopsy of his transplanted kidney showed focal segmental glomerulosclerosis which was likely his primary renal disease and has recurred. His serum creatinine has been stable in the range of 2.0-2.2 at least until this admission. His serum creatinine needs to be interpreted in light of the fact that he has been taking losartan to help minimize his proteinuria. That drug does appear to have been effective. He has the recent onset of a recurrent bout of prostatitis. He was on a 4-week course of Cipro. Additionally, at about the same time he developed a positive test for Covid-19 shortly after having been vaccinated. The diagnosis, at the time, was incidental as he was asymptomatic. He has gone on to develop some increasing shortness of breath and pulmonary infiltrates likely the result of his Covid. With his shortness of breath he has also had a severe cough. I suspect that the cough as well as other symptoms leading to a decrease in his oral intake contributed to the development of a rectus sheath/abdominal wall hematoma on the left side. He has had a significant bleed that appears to be active. Additionally, he has had some recent black tarry stools that occurred when his INR apparently went up. His INR has been corrected. He is beginning to feel a bit better. Nonetheless I think he will need additional transfusions and I would do that with leukocyte reduced and irradiated red blood cells. Additionally, he appears to be somewhat volume depleted at the current time with parched oral mucous membranes. His skin turgor is not that poor. His BUN is disproportionate to his creatinine but that too would seem to be multifactorial related to volume depletion and perhaps to blood in his GI tract. In that regard, I think he needs to have some gentle IV fluids. His mycophenolate should be reduced to 500 mg 500 mg twice daily. His cyclosporine level is pending and should be back within the next 24 hours. I would be concerned that with his decreased oral intake he may be developing some degree of an elevated cyclosporine level and potential nephrotoxicity from that. He can also receive local care with ice to his anterior abdomen until his hemoglobin stabilizes. Stool should be followed closely for occult blood. I will continue to follow him with you and appreciate the opportunity to participate in his inpatient care. (3) UTI (urinary tract infection): (4) Symptomatic anemia: (5) COVID-19: History of Present Illness Attending Physician: Mr. Monte is a 60-year-old gentleman well-known to me. He was admitted to the hospital yesterday with increasing shortness of breath and left lower quadrant and left-sided abdominal pain. He was found to be significantly anemic and his serum creatinine had climbed from its baseline. I have followed him for many years. He initially presented to me with several medical problems. Among others was chronic renal insufficiency. His serum creatinine was significantly elevated in the range of 2 to 3 mg/Sandy. He had significant proteinuria but was not nephrotic. He was hypertensive. Other issues included a history of gout. Additionally, he was noted to have multiple pulmonary nodules. These were worked up at the time and no specific etiology was determined. Over the course of the next several years, his renal function gradually declined. It was associated with an elevated blood pressure as well as hypercholesterolemia. Both were treated and kept within an acceptable target range. Additionally, his gout was initially treated with allopurinol but that was discontinued because of his severe skin reaction. Later, he was started on Uloric 80 mg daily. He has not had any problems with gouty arthritis or nephrolithiasis since that time. More recently, he became hypercalcemic. His work-up was consistent with sarcoidosis with a significant elevation of his SCOTT level. It responded to steroids with a reduction in his serum calcium. However, on high-dose steroids he did develop significant hyperglycemia the transiently required insulin therapy. He had several flares of hypercalcemia each responding to prednisone. In 2019 he developed end-stage renal disease and was begun on maintenance dialysis. He was already in the process of being evaluated for a kidney transplant. Dialysis was complicated by severe headaches associated with treatments but they resolved and have not recurred since dialysis was discontinued. On April 04, 2019 he underwent a living unrelated donor renal transplant. The donor was his [id number]. Initially, he did quite well with his serum creatinine dropping to the range of 1.1 to 1.3 mg/Sandy. Immunosuppression was initially with mycophenolate Moffa ~1 g twice daily and belatacept administered monthly. He also was on 5 mg of prednisone daily after a tapering dose. Additional issues began in October 2019. First, he developed a DVT in his left leg. He has a history of bilateral chronic venous stasis dermatitis but nonetheless an acute clot was recognized and he was started on warfarin. He has remained on warfarin since that time. Of note is the fact that he also has a history of a malignant melanoma that involved his left calf. That was resected years ago and he has not had any recurrence. Nonetheless he did have a large scar remaining on the back of his left calf. Further problems were recognized when he developed bilateral lower extremity edema in November 2019. His urinalysis was abnormal with significant proteinuria. His urine protein to creatinine ratio was elevated in the range of about 5.5 g. A renal biopsy of his transplanted kidney was done in December 2019. It showed changes consistent with focal segmental glomerulosclerosis. Immunofluorescence staining was negative. Nonetheless, he was treated with a tapering course of steroids as well as plasmapheresis. That did little to improve his proteinuria. Belatacept was discontinued in favor of cyclosporine in a dose of 200 mg twice daily. Losartan was added to his regimen as an antihypertensive as well as to help minimize his proteinuria. He had already been taking amlodipine 5 mg twice daily for his hypertension. On that program, his edema seemed to significantly lessen. His creatinine initially was stable in the range of about 1.3 but subsequently began to climb. He also has a history of benign prostatic hypertrophy for which she has been taking tamsulosin 0.4 mg each evening. He has nocturia x3-4 but apparently wakes up because of symptoms of a peripheral neuropathy which is a separate issue. Apparently, when he awakens, he walks around to get relief of his neuropathic symptoms and has a habit of urinating at that time. In late December 2019 he was admitted here with an episode of prostatitis and symptoms and laboratory work consistent with septicemia. His urine culture was positive for gram-negative yeyo that was pansensitive. He was started on Cipro and treated for 1 month with complete resolution of his symptoms. His serum creatinine subsequent to that episode began to climb into the 2 to 2.2 mg/Sandy range. As noted above he also has symptoms of a peripheral neuropathy for which she takes gabapentin 600 mg twice daily and 900 mg at bedtime. He also takes Cymbalta 20 mg each morning. Additionally, he has a history of obstructive sleep apnea and does use CPAP at home. He also has a history of GERD for which he takes omeprazole. His more immediate issues appear to begin in mid July. He called our office on August 20 complaining of an approximate 3-day history of frequency urgency and dysuria followed by shaking chills and fevers. Her urinalysis and urine culture were consistent with a recurrent episode of prostatitis and he was started on Cipro 500 mg twice daily. On that regimen, he began to improve. I spoke with him on a daily basis since he preferred not to come to the hospital for treatment. However, after the first day of treatment his symptoms improved and continued to do so. He was scheduled to have an umbilical hernia repaired in late July. In anticipation of that, he did have a nasal swab done for Covid. He had completed 2 doses of coronavirus vaccine. Nonetheless, he tested positive. This was occurring in the course of his treatment for prostatitis but he continued to improve and at that time did not complain of any respiratory symptoms. He was apparently offered Regeneron cocktail. After speaking with me he decided not to proceed with that. On August 28, he was admitted with a several day history of fevers and chills, malaise, diarrhea, nausea, a loss of appetite and a nonproductive cough. He was mildly short of breath. A chest x-ray did show evidence of patchy pulmonary infiltrates. He was admitted to the hospital but seem to be stable including his renal function. However, he did say that he was having a significant cough. On September 02, he was again seen in the emergency room. His hemoglobin was 9.7. His INR was 3.0. Continued on his Cipro. Nonetheless, he appeared to be doing reasonably well. His chest x-ray again showed patchy infiltrates. However, he was oxygenating well and was discharged to home for outpatient follow-up. He did not improve. He continued to have a cough. He then developed left lower quadrant and left mid abdominal pain that became increasingly severe. He developed increasing shortness of breath. He returned to the emergency room on and was admitted. A CT scan showed a large abdominal wall hematoma. His INR was over 11. Additionally, he mentioned that he was still having occasional loose stools that were black. These tested positive for occult blood. Since admission, he has been received 2 units of packed red blood cells. He has been treated with intravenous analgesics which have been helpful in controlling his pain. He is receiving nasal oxygen. He still says that he is somewhat short of breath particularly when his pain is severe. Otherwise, at rest he seems to be comfortable at least within the first few hours after receiving his analgesics. He has remained on his mycophenolate, cyclosporine and prednisone. Cyclosporine level has been sent. Losartan has been held. This morning, he says that he is feeling somewhat better. His INR has been corrected. He still has left sided abdominal pain. He has not had a bowel movement since admission. His hemoglobin has fallen this morning back to 7.0. The remainder of his review of systems is summarized on his admission note and previous admission and consultation notes. His regular medications are likewise listed in the chart and I have no additions. Allergies Allergy/AdvReac Type Severity Reaction Status Date / Time allopurinol Allergy Unknown Rash Verified 09/10/20 00:49 Penicillins Allergy Unknown Unknown Verified 09/10/20 00:49 Home Medications Medication Instructions Recorded Confirmed Type aspirin 81 mg tablet,delayed 81 mg PO QAM 04/24/19 09/10/20 History release cholecalciferol (vitamin D3) 25 1,000 units PO QAM 04/24/19 09/10/20 History mcg (1,000 unit) capsule docusate sodium 100 mg capsule 100 mg PO BID PRN 04/24/19 09/10/20 History multivitamin 1 tab PO QAM 04/24/19 09/10/20 History tamsulosin 0.4 mg capsule 0.4 mg PO HS 04/24/19 09/10/20 History prednisone 5 mg tablet 5 mg PO QAM tab 05/29/19 09/10/20 History sodium di- and 2 tab PO TID tab 05/29/19 09/10/20 History monophosphate-potassium phos monobasic 250 mg tablet magnesium oxide 800 mg PO TID cap 01/11/20 09/10/20 History mycophenolate mofetil 250 mg 1,000 mg PO BID cap 02/20/20 09/10/20 History capsule febuxostat 80 mg tablet 80 mg PO QAM 03/06/20 09/10/20 History cyclosporine 100 mg capsule 200 mg PO BID cap 03/19/20 09/10/20 History furosemide 40 mg tablet 60 mg PO QAM #120 tab 05/09/20 09/10/20 Rx omeprazole 40 mg capsule,delayed 40 mg PO QAM #90 cap 05/09/20 09/10/20 Rx release gabapentin 300 mg capsule 900 mg PO HS #270 cap 06/14/20 09/10/20 Rx simvastatin 40 mg tablet 40 mg PO HS #90 tab 06/17/20 09/10/20 Rx duloxetine 20 mg capsule,delayed 20 mg PO QAM #90 cap 06/20/20 09/10/20 Rx release gabapentin [Neurontin] 600 mg PO BID 08/17/20 09/10/20 History losartan 100 mg PO QAM 08/17/20 09/10/20 History cephalexin 500 mg PO BID 20 Days #40 cap 08/30/20 09/10/20 Rx warfarin 5 mg PO UD 09/02/20 09/10/20 History tramadol 50 mg tablet 50 mg PO Q8H PRN #20 tab 09/09/20 09/10/20 Rx Patient History Medical History AV fistula LEFT WRIST> NO DIALYSIS CURRENTLY> [employer]A STILL WORKS PER PT BPH (benign prostatic hyperplasia) COVID-19 virus infection Dehydration DVT (deep venous thrombosis) Right- 04/2019 following transplant > Coumadin S/P LEFT LEG SURGERY (EXCISION OF MELANOMA LEFT LEG) 10 YEARS AGO. End stage renal disease follows Dr. 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 Chronic renal insufficiency s/p renal transplant - follows with nephro Per 07/17/20 surgeon note: "His transplant surgeons have cleared him to have this (hernia) repaired." GERD (gastroesophageal reflux disease) Gout History of malignant melanoma of skin Hyperlipidemia Hypertension Sarcoidosis Sleep apnea CPAP Surgical History H/O colonoscopy History of cardiac cath 01/2018 > [facility] > NO STENTS History of melanoma excision left calf History of tonsillectomy History of tooth extraction Kidney transplanted APR 04, 2019 > [facility] > right side Family History Mother Stroke Heart disease Grandmother Cancer Other Lung disease Social History Smoking Status: Never smoker Second Hand Exposure: No; Do You Dip or Chew Tobacco: No; Hx Alcohol Use: No Hx Substance Use: No Preferred Language: Kiswahili Communication Ability: Effective Fringe Maker Required: No Beliefs That Will Affect Care: None marital status: Current Living Situation: Spouse Current Living Situation Comment: sister and son as well current occupational status: employed current occupation: [employer] How many Children do You have: 1 Other Information That Helps Us Care for You: No Feels Safe at Home: Yes Safety Concerns: Feels Safe At This Time Assistive Devices: Oxygen - Continuous Physical Exam Physical Exam: On physical examination this morning, Mr. Michael andrade appears as a chronically and acutely ill gentleman of about his stated age of 60. When seen by me, his blood pressure was 129/84 with a pulse of 66 and regular. His respiratory rate was 20 with 2 L of nasal oxygen. His oxygen saturation was 94%. He is afebrile (36.9). His skin shows somewhat of a sallow complexion. He has normal skin turgor. He has scars from prior surgeries including a scar on his left forearm from the creation of an AV fistula. There is a right lower quadrant scar from his kidney transplant. He has a large scar on the back of his left calf from the resection of his malignant melanoma. He has significant changes of venous stasis dermatitis on his distal lower extremities. There is no palpable lymphadenopathy. His head is normal. Eyes are grossly normal. The ocular fundi were not examined. Ears, nose, mouth and throat are unremarkable except for parched oral mucous membranes. His neck is supple. He has no obvious jugular venous distention but the exam is limited by his body habitus. I hear no carotid bruits. He has no thyromegaly. His chest is clear to auscultation. However, diaphragms are elevated and breath sounds are a bit diminished at the bases related to his body habitus. Cardiac exam shows a regular rhythm. S1 and S2 were normal. He has a grade 2/6 systolic murmur heard at the base and upper left sternal border radiating toward the neck. I hear no diastolic murmurs. He has no gallops or rubs. His abdomen is exquisitely tender on the left side. He has an anterior wall superficial, firm abdominal mass which is exquisitely tender. His renal transplant is palpable in the right lower quadrant. Bowel sounds are normal. I could not appreciate any other organomegaly or mass. Rectal exam was not done by me. It was apparently done in the emergency room. Extremities showed trace to 1+ bilateral lower extremity edema and changes of venous stasis dermatitis. He has a left forearm AV fistula. He has changes of osteoarthritis involving his knees. His neurologic exam shows no lateralizing changes although he does have some hyperesthesia of his feet. Deep tendon reflexes were not tested. Cranial nerves II through XII were unremarkable. Results & Data ([facility]) Vital Signs (Past 12 Hours) Vital Signs Temp Pulse Pulse Resp BP Pulse Ox 09/11/20 07:17 36.9 C 66 20 121/84 94 09/11/20 03:32 36.6 C 61 17 107/73 98 09/11/20 00:00 66 09/10/20 23:39 36.9 C 66 18 116/71 97 Laboratory Results Laboratory Results - last 24 hr 09/10/20 09/10/20 09/10/20 00:58 12:48 12:48 WBC 5.27 RBC 2.41 L Hgb 7.1 L Hct 21.0 L MCV 87.1 MCH 29.5 MCHC 33.8 RDW Std Deviation 47.6 H RDW Coeff of Theresa 14.8 H Plt Count 274 MPV 10.5 H Immature Gran % (Auto) 6.6 Neut % (Auto) 81.6 Lymph % (Auto) 7.6 Dunn % (Auto) 4.2 Eos % (Auto) 0.0 Baso % (Auto) 0.0 Neut # (Auto) 4.30 Lymph # (Auto) 0.40 L Dunn # (Auto) 0.22 Eos # (Auto) 0.00 Baso # (Auto) 0.00 Immature Gran # (Auto) 0.35 H Absolute Nucleated RBC Nucleated RBC % (auto) Dohle Bodies 1+ Echinocytes 1+ PT 11.5 INR 1.1 Sodium Potassium Chloride Carbon Dioxide Anion Gap BUN Creatinine Est Cr Clr Drug Dosing Est GFR ( Amer) Est GFR (Non-Af Amer) BUN/Creatinine Ratio Glucose Calcium Total Bilirubin AST ALT Alkaline Phosphatase Total Protein Albumin Globulin Albumin/Globulin Ratio Blood Type A Positive Antibody Screen NEGATIVE Crossmatch See Detail 09/10/20 09/10/20 09/11/20 13:46 19:43 01:41 WBC RBC Hgb 7.2 L 7.6 L 7.4 L Hct 21.4 L 23.5 L 22.4 L MCV MCH MCHC RDW Std Deviation RDW Coeff of Theresa Plt Count MPV Immature Gran % (Auto) Neut % (Auto) Lymph % (Auto) Dunn % (Auto) Eos % (Auto) Baso % (Auto) Neut # (Auto) Lymph # (Auto) Dunn # (Auto) Eos # (Auto) Baso # (Auto) Immature Gran # (Auto) Absolute Nucleated RBC Nucleated RBC % (auto) Dohle Bodies Echinocytes PT INR Sodium Potassium Chloride Carbon Dioxide Anion Gap BUN Creatinine Est Cr Clr Drug Dosing Est GFR ( Amer) Est GFR (Non-Af Amer) BUN/Creatinine Ratio Glucose Calcium Total Bilirubin AST ALT Alkaline Phosphatase Total Protein Albumin Globulin Albumin/Globulin Ratio Blood Type Antibody Screen Crossmatch 09/11/20 09/11/20 09/11/20 05:41 05:41 05:41 WBC 7.73 RBC 2.42 L Hgb 7.0 L Hct 21.3 L MCV 88.0 MCH 28.9 MCHC 32.9 RDW Std Deviation 49.1 H RDW Coeff of Theresa 15.1 H Plt Count 290 MPV 10.3 Immature Gran % (Auto) 7.1 Neut % (Auto) 81.9 Lymph % (Auto) 6.0 Dunn % (Auto) 5.0 Eos % (Auto) 0.0 Baso % (Auto) 0.0 Neut # (Auto) 6.33 Lymph # (Auto) 0.46 L Dunn # (Auto) 0.39 Eos # (Auto) 0.00 Baso # (Auto) 0.00 Immature Gran # (Auto) 0.55 H Absolute Nucleated RBC 0.02 H Nucleated RBC % (auto) 0.2 Dohle Bodies Echinocytes 1+ PT 11.9 INR 1.2 H Sodium 136 Potassium 4.6 Chloride 107 Carbon Dioxide 19 L Anion Gap 10.0 BUN 59 H Creatinine 3.29 H D Est Cr Clr Drug Dosing 34.3 Est GFR ( Amer) 22.5 Est GFR (Non-Af Amer) 19.4 BUN/Creatinine Ratio 17.8 Glucose 103 H Calcium 7.7 L Total Bilirubin 1.6 H AST 46 H ALT 24 Alkaline Phosphatase 48 Total Protein 5.5 L Albumin 2.5 L Globulin 3.0 Albumin/Globulin Ratio 0.8 L Blood Type Antibody Screen Crossmatch PG Care Time/CCT Total # of Minutes Spent Total Time Spent with Patient: Total time spent is greater than 50% in coordination of care (as documented) at patient's floor/unit and/or counseling patient: 90 min. Coding Level of Care Code 82222 Inpt Consult Level 5 Diagnoses Renal transplant recipient Z94.0 Acute on chronic renal insufficiency N28.9; N18.9 UTI (urinary tract infection) N39.0 Symptomatic anemia D64.9 COVID-19 U07.1
[2020-09-11] MEDS ORDERED: SODIUM CHLORIDE 0.9% 250 ML IV PRN (12:35)
[2020-09-11] MEDS: SODIUM CHLORIDE 0.9% 1000ML 1,000 ML IV SCH (17:13)
--- NOTE | 2020-09-11 19:51 | Hospitalist Progress Note ---
Date of Service September 11, 2020 Assessment & Plan (1) Rectus sheath hematoma: Rectus sheath hematoma with acute blood loss anemia thus far requiring 2 units transfusion, stemming from Coumadin coagulopathy, which in turn likely stemmed from poor p.o. intake in the face of ongoing medical adherence to his Coumadin regimen brought on by recent COVID-19 infection. -->2 more units today given Hgb 7 and LORENZO. --->pain control and supportive (2) Symptomatic anemia: 2 more units transfusionhe has LORENZO on CKD likely related to poor forward flow from the anemia. Overall symptomatic anemia is the acute blood loss anemia stemming from Coumadin coagulopathy. (3) Supratherapeutic INR: now corrected. will need to resume at some point given prior DVTs, vs possibly eliquis if possible w renal function? (4) COVID-19: Previously had Covid. He does not appear to be symptomatic from it anymore, his PCR continues to test positive which is not surprising, does not appear to need any particular treatment or infection precautions. (5) Renal transplant recipient: Renal transplant recipient/chronically immunocompromise-with what appears to be about chronic stage IIIb CKD. Currently LORENZO superimposed on that Continue cyclosporine, mycophenolate. Holding prednisone, placed on stress dose steroidsalthough after today's transf usion, with ongoing hemodynamic stability, we can probably resume his regular dosing of prednisone (6) Hypercholesteremia: On simvastatin as an outpatient (7) Hypertension: Follow blood pressureshowing hemodynamic stability now. (8) Neuropathy: (9) GERD (gastroesophageal reflux disease): Famotidine 20 mg IV every 12 hours (10) Immunocompromised: See above (11) UTI (urinary tract infection): Continue ceftriaxone for now. It appears he has been treated for prostatitis as an outpatient. (12) DVT (deep venous thrombosis): Chronically anticoagulated due to this. Fortunately last DVT was quite a while ago. Obviously will need to give consideration to resuming anticoagulation in the future once his current situation is much more stable. Admission and Anticipated Discharge Date Admission Date: September 10, 2020 Subjective Feeling much better than yesterdaypain still there but improved, more tolerable at rest, pain meds to help and then they wear offmostly notes that whenever he moves, but notes that it is well enough at this point that he would not want pain medicines adjusted. No other new complaints. Labs reviewed. Case discussed with nephrology at the bedside as well. Review of Systems Review of Systems: All systems reviewed & are unremarkable except as noted in HPI & below Physical Exam Physical Exam: In general he is awake and alert pleasant no distress. HEENT normocephalic atraumatic mucous membranes moist. Breathing unlabored no accessory muscle use good effort. Abdomen is distended, very tense and tender in the area of the hematoma, although less so than yesterday, no guarding no rebound no rigidity. Extremities show no cyanosis. No focal neuro deficits. Results & Data Results & Data ([facility]) Vital Signs (Past 12 Hours) Vital Signs Temp Pulse Pulse Resp BP BP Pulse Ox 09/11/20 19:36 98.4 F 72 18 135/75 95 09/11/20 19:30 98.4 F 72 18 135/75 95 09/11/20 19:06 98.2 F 65 19 126/75 95 09/11/20 19:05 98.2 F 65 19 126/75 94 09/11/20 18:48 98.6 F 76 18 115/76 95 09/11/20 18:36 98.2 F 68 18 118/69 98 09/11/20 18:05 98.4 F 66 18 116/72 98 09/11/20 16:53 98.4 F 76 18 118/76 98 09/11/20 15:53 97.7 F 65 19 111/70 09/11/20 15:23 98.4 F 68 18 118/78 98 09/11/20 15:08 98.2 F 78 18 116/78 98 09/11/20 14:52 98.4 F 78 18 122/72 98 09/11/20 11:30 97.7 F 65 16 114/73 96 PG Care Time/CCT Total # of Minutes Spent Total Time Spent with Patient: Total time spent is greater than 50% in coordination of care (as documented) at patient's floor/unit and/or counseling patient: Coding Level of Care Code 74832 Subseq Hosp Care Lvl 3 Diagnoses Rectus sheath hematoma S30.1XXA Symptomatic anemia D64.9 Supratherapeutic INR R79.1 COVID-19 U07.1 Renal transplant recipient Z94.0 Hypercholesteremia E78.00 Hypertension I10 Hypertension type: essential hypertension Neuropathy G62.9 GERD (gastroesophageal reflux disease) K21.9 Immunocompromised D89.9 UTI (urinary tract infection) N39.0 DVT (deep venous thrombosis) I82.409 DVT location: lower extremity Affected thrombotic vein of extremity: unspecified vein of extremity Chronicity: unspecified Laterality: unspecified laterality (1) Hypertension Hypertension type: essential hypertension Qualified Code(s): I10 - Essential (primary) hypertension (2) DVT (deep venous thrombosis) DVT location: lower extremity Affected thrombotic vein of extremity: unspecified vein of extremity Chronicity: unspecified Laterality: unspecified laterality Qualified Code(s): I82.409 - Acute embolism and thrombosis of unspecified deep veins of unspecified lower extremity
[2020-09-11 22:26] LABS: Appearance Urine Clear (Clear); Bacteria Urine Automated Negative (Negative); Blood Urine 1+ (Negative); Color Urine Dark Yellow; Glucose Urine UA Negative (Negative); Ketones Urine Negative (Negative); Leukocyte Esterase Urine Negative (Negative); Nitrite Urine Negative (Negative); Protein Urine 1+ (Negative); Specific Gravity Urine 1.023 (1.000-1.030); Urobilinogen Urine Negative (Negative)
[2020-09-11 22:27] LABS: Bilirubin Urine 1+ (Negative)
[2020-09-12] MEDS: HYDROCORTISONE SOD 50 MG in SYRINGE 0 ML IV SCH (01:01)
[2020-09-12] MEDS: HYDROmorphone INJ 0.5 MG/0.5 ML SYR IV PRN ×4 (01:01→08:01)
[2020-09-12] MEDS ORDERED: HYDROmorphone INJ 0.5 MG/0.5 ML SYR IV STA (02:03)
[2020-09-12] MEDS: SODIUM CHLORIDE 0.9% 1000ML 1,000 ML IV SCH ×2 (04:49→13:59)
[2020-09-12 06:10] LABS: Hematocrit (blood only) 26.8 % (42-52); Hemoglobin 8.8 g/dL (14.0-18.0); Mean Corpuscular Hemoglobin 28.9 pg (25-34); Mean Corpuscular Hgb Conc 32.8 g/dL (32-36); Mean Corpuscular Volume 88.2 fL (80-100); Mean Platelet Volume 10.2 fL (7.4-10.4); Platelet Count 304 K/uL (130-400); RDW Standard Deviation 48.4 fL (36.4-46.3); Red Blood Count 3.04 M/uL (4.7-6.1); White Blood Count 9.48 K/uL (4.8-10.8)
[2020-09-12 06:35] LABS: Basophils # (auto) 0.01 K/uL (0-0.2); Basophils % (auto) 0.1 %; Dohle Bodies Occasional; Immature Granulocytes # (auto) 0.51 K/uL (0.00-0.02); Immature Granulocytes % (auto) 5.4 %; Lymphocytes # (auto) 0.35 K/uL (1.2-3.4); Lymphocytes % (auto) 3.7 %; Monocytes # (auto) 0.54 K/uL (0.11-0.59); Monocytes % (auto) 5.7 %; Neutrophils # (auto) 8.07 K/uL (1.4-6.5); Neutrophils % (auto) 85.1 %
[2020-09-12 06:41] LABS: Albumin Level 2.7 gm/dl (3.4-5.0); Calcium 8.9 mg/dl (8.5-10.1); Creatinine Clr Calc Pharmacy 36.3 ml/min; Est GFR (Non-African American) 20.7; Potassium 4.5 mmol/L (3.5-5.1)
[2020-09-12 06:42] LABS: Albumin Globulin Ratio 0.8 (0.9-2); Bilirubin,Total 1.3 mg/dl (0.2-1); Globulin 3.3 gm/dl (2.5-4.0)
[2020-09-12] MEDS: cefTRIAXone SODIUM 2,000 MG in DEXTROSE 5% 50 ML IV SCH (08:02)
[2020-09-12] MEDS: FAMOTIDINE 20 MG in SYRINGE 3 ML IV SCH ×2 (08:02→20:14)
[2020-09-12] MEDS: MYCOPHENOLATE MOFETIL 250 MG CAP PO SCH ×2 (08:03→20:13)
[2020-09-12] MEDS: cycloSPORINE 100 MG CAP PO SCH ×2 (08:03→20:13)
[2020-09-12] MEDS: DOCUSATE SODIUM/SENNA 50/8.6MG TAB PO SCH ×2 (08:03→20:17)
[2020-09-12] MEDS: ACETAMINOPHEN 325 MG TAB PO SCH ×3 (08:05→20:12)
[2020-09-12] MEDS: predniSONE 5 MG TAB PO SCH (08:29)
--- NOTE | 2020-09-12 09:42 | Nephrology Progress Note ---
Date of Service September 12, 2020 Assessment & Plan (1) Acute on chronic renal insufficiency: Mr. Prado is a 60-year-old gentleman who is now about a year and a half post renal transplant from a living unrelated donor. Initially, his transplant functioned quite well with a fall and his serum creatinine to about 1.2 mg/Sandy. He developed the nephrotic syndrome and a reduction in his renal function during the summer 2019. A biopsy of his kidney showed focal segmental glomerulosclerosis which was likely his primary renal disease. He had a recent episode of Covid pneumonia. During that time he said that he did have a significant cough. He subsequently developed left-sided abdominal pain and has been discovered to have a significant rectus sheath hematoma. His INR was supratherapeutic. He was also having some black tarry stools. His INR has been corrected during the hospitalization and he has been transfused and he is beginning to feel better. After 4 units of packed cells, his hemoglobin is. Hopefully it will remain there. His serum creatinine appears to have improved a bit. He still has a disproportionate increase in his BUN to his creatinine. That is likely because of the prerenal components of his acute renal insufficiency. That includes a decrease in his plasma volume related to the continued use of diuretics as he was becoming ill. Additionally, his BUN may be disproportionately high because of GI bleeding which appears to have resolved. Cyclosporine level is pending although we have kept him on his usual dose of cyclosporine for now. His dose of mycophenolate has been reduced at least for now. Losartan has been discontinued. For now, would continue to monitor his renal function and continue him on IV fluids. We should see a further reduction in his BUN and creatinine with these measures. Depending on the results of his cyclosporine level, which hopefully will be back today, we may need to adjust the dose of that as well. Continue to monitor his hemoglobin and hematocrit closely. An infectious disease organization development consultant may be helpful particularly given the persistence of his pulmonary infiltrate as well as his recent episode of documented prostatitis. I have no other immediate suggestions other than to consider increasing the frequency of his analgesics to get more prolonged pain control. 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 He still has considerable abdominal pain particularly with any movement. He does get relief from his analgesic although it last only for about 2 to 3 hours. When getting up, he does say that if his pain is present he gets somewhat short of breath going to the bathroom. Otherwise, he denies shortness of breath at rest. He denies having a significant cough. He has no chills or sweats. He denies having any problems with dysuria. He has been transfused with a total of 4 units of packed red blood cells. They were leukocyte reduced and 2 were irradiated. He said that he is making urine. He has not had a bowel movement but has passed a significant amount of gas per rectum. He has no definite symptoms of uremia other than his general fatigue that is multifactorial. There are no definite symptoms of volume overload. His dyspnea is likewise multifactorial. He is not noticing any edema. Physical Exam Physical Exam: On physical examination, Mr. Prado appears more comfortable than he had been. He is an overweight middle-aged gentleman of about his stated age of 60. He was awake and alert. His blood pressure when seen by me was 132/82 with a pulse of 67 and regular. His respiratory rate was 19 on room air with an oxygen saturation of 92%. His temperature is 36.9 C. His skin shows normal skin turgor. He has scars from prior surgical procedures including a left forearm scar from the creation of an AV fistula and a right lower quadrant scar from his kidney transplant. He has a large scar on the posterior aspect of the left calf from the resection of a malignant melanoma. He has obvious changes of venous stasis dermatitis on his distal lower extremities. He has no palpable lymphadenopathy. His head is normal. Eyes are grossly normal. He has no conjunctival icterus. The ocular fundi were not examined. Ears, nose, mouth and throat are unremarkable other than his oral mucous membranes which remain dry but not quite as parched as they had been. His neck is supple. There is no jugular venous distention although the exam is limited by his body habitus. I hear no carotid bruit. He has no thyromegaly. His chest is clear to auscultation. Cardiac exam shows a regular rhythm. S1 and S2 were normal. He has a soft systolic murmur at the base and upper left sternal border radiating toward the neck. No diastolic murmurs are heard. His abdomen is obese. It is tender on the left side and there is a palpable subcutaneous mass in that area consistent with a rectus sheath hematoma. The right side of his abdomen is less tender. His renal transplant is barely palpable in the right lower quadrant. It is not tender. There is no other obvious organomegaly or mass. Bowel sounds are normal. I hear no abdominal bruits. Extremities show no definite lower extremity edema. He has obvious changes of venous stasis dermatitis. There is a left forearm AV fistula. His neurologic exam shows no lateralizing changes. He does have some hyperesthesia of his feet. Results & Data ([facility]) Vital Signs (Past 12 Hours) Vital Signs Temp Pulse Resp BP Pulse Ox 09/12/20 07:19 36.9 C 67 19 132/82 92 09/12/20 03:59 36.5 C 65 18 148/84 H 92 09/11/20 23:24 36.7 C 57 L 18 135/76 96 PG Care Time/CCT Total # of Minutes Spent Total Time Spent with Patient: Total time spent is greater than 50% in coordination of care (as documented) at patient's floor/unit and/or counseling patient: Coding Level of Care Code 27724 Subseq Hosp Care Lvl 3 Diagnoses Acute on chronic renal insufficiency N28.9; N18.9 Symptomatic anemia D64.9 Rectus sheath hematoma S30.1XXA Renal transplant recipient Z94.0 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
[2020-09-12] MEDS: oxyCODONE HCL IR 5 MG TAB (IMMEDIATE RELEASE) PO PRN ×2 (11:22→16:32)
[2020-09-12] MEDS ORDERED: BENZONATATE 100 MG CAPSULE PO PRN (17:05)
--- NOTE | 2020-09-12 18:39 | Hospitalist Progress Note ---
Date of Service September 12, 2020 Assessment & Plan (1) Rectus sheath hematoma: Rectus sheath hematoma with acute blood loss anemia thus far requiring 2 units transfusion, stemming from Coumadin coagulopathy, which in turn likely stemmed from poor p.o. intake in the face of ongoing medical adherence to his Coumadin regimen brought on by recent COVID-19 infection. --> Has been transfused a total of 4 units packed red cells, now stable, bleeding appears to have ceased --->pain control and supportive (2) Symptomatic anemia: For total units transfusionhe has LORENZO on CKD likely related to poor forward flow from the anemia, although this is improving. Overall symptomatic anemia is the acute blood loss anemia stemming from Coumadin coagulopathy. (3) Supratherapeutic INR: now corrected. will need to resume at some point given prior DVTs, vs possibly eliquis if possible w renal function? (4) COVID-19: Previously had Covid. He does not appear to be symptomatic from it anymore, his PCR continues to test positive which is not surprising, does not appear to need any particular treatment or infection precautions. (5) Renal transplant recipient: Renal transplant recipient/chronically immunocompromise-with what appears to be about chronic stage IIIb CKD. Currently LORENZO superimposed on that, but starting to improve. Continue fluids, repeat basic metabolic panel tomorrow Continue cyclosporine, mycophenolate. Back on home dosing of prednisone (6) Hypercholesteremia: On simvastatin as an outpatient (7) Hypertension: Follow blood pressureshowing hemodynamic stability now. (8) Neuropathy: Resume home gabapentin, this might help with pain as well (9) GERD (gastroesophageal reflux disease): (10) Immunocompromised: See above (11) UTI (urinary tract infection): Is on ceftriaxone for now. It appears he has been treated for prostatitis as an outpatient. (12) DVT (deep venous thrombosis): Chronically anticoagulated due to this. Fortunately last DVT was quite a while ago. Obviously will need to give consideration to resuming anticoagulation in the future once his current situation is much more stable. No clear signs or symptoms of VTE today (13) Discharge planning issues: Stable for medical. Does appear to require ongoing inpatient care until his pain is under good enough control with p.o. meds work. Admission and Anticipated Discharge Date Admission Date: September 10, 2020 Subjective Seen twice today. Pain definitely better than yesterday but still not great. Later in the day noted that the abdominal binder did not help much. He still has a lot of pain with movement. Otherwise he is feeling okay. Very much wants to get home as quickly as possible, but realistic that and his degree of pain is not going to be able to do okay yet Review of Systems Review of Systems: All systems reviewed & are unremarkable except as noted in HPI & below Physical Exam Physical Exam: In general he is awake and alert oriented pleasant no distress at rest, but once he starts moving he is visibly wincing in pain. Breathing unlabored no accessory muscle use good effort. Abdomen is soft except for the area of the hematoma that is firm and very tender. Neuro shows no focal deficits. Results & Data Results & Data ([facility]) Vital Signs (Past 12 Hours) Vital Signs Temp Pulse Pulse Resp BP Pulse Ox 09/12/20 16:06 97.7 F 63 20 137/84 95 09/12/20 15:30 60 09/12/20 11:15 98.8 F 62 20 152/81 H 96 09/12/20 11:02 98.8 F 76 19 148/93 H 96 09/12/20 07:19 98.4 F 67 19 132/82 92 PG Care Time/CCT Total # of Minutes Spent Total Time Spent with Patient: Total time spent is greater than 50% in coordination of care (as documented) at patient's floor/unit and/or counseling patient: Coding Level of Care Code 60905 Subseq Hosp Care Lvl 3 Diagnoses Rectus sheath hematoma S30.1XXA Symptomatic anemia D64.9 Supratherapeutic INR R79.1 COVID-19 U07.1 Renal transplant recipient Z94.0 Hypercholesteremia E78.00 Hypertension I10 Hypertension type: essential hypertension Neuropathy G62.9 GERD (gastroesophageal reflux disease) K21.9 Immunocompromised D89.9 UTI (urinary tract infection) N39.0 DVT (deep venous thrombosis) I82.409 DVT location: lower extremity Affected thrombotic vein of extremity: unspecified vein of extremity Chronicity: unspecified Laterality: unspecified laterality Discharge planning issues Z02.9 (1) Hypertension Hypertension type: essential hypertension Qualified Code(s): I10 - Essential (primary) hypertension (2) DVT (deep venous thrombosis) DVT location: lower extremity Affected thrombotic vein of extremity: unspecified vein of extremity Chronicity: unspecified Laterality: unspecified laterality Qualified Code(s): I82.409 - Acute embolism and thrombosis of unspecified deep veins of unspecified lower extremity
[2020-09-12] MEDS ORDERED: GABAPENTIN 300 MG CAP PO SCH (22:00)
[2020-09-12] MEDS: GABAPENTIN 300 MG CAP PO SCH (22:10)
[2020-09-12] MEDS: POT PHOSPHATE MONOBASIC W/ SOD TAB PO SCH (22:10)
[2020-09-12] MEDS: TAMSULOSIN HCL 0.4 MG CAP PO SCH (22:10)
[2020-09-12] MEDS: SIMVASTATIN 40 MG TAB PO SCH (22:11)
[2020-09-12] MEDS: MAGNESIUM OXIDE 400 MG TAB PO SCH (22:11)
[2020-09-13] MEDS: HYDROmorphone INJ 0.5 MG/0.5 ML SYR IV PRN ×3 (00:08→08:44)
[2020-09-13] MEDS: SODIUM CHLORIDE 0.9% 1000ML 1,000 ML IV SCH ×2 (02:52→13:34)
[2020-09-13] MEDS: cycloSPORINE 100 MG CAP PO SCH ×2 (08:33→19:25)
[2020-09-13] MEDS: predniSONE 5 MG TAB PO SCH (08:33)
[2020-09-13] MEDS: MAGNESIUM OXIDE 400 MG TAB PO SCH ×3 (08:34→19:26)
[2020-09-13] MEDS: MULTIVITAMIN TAB PO SCH (08:34)
[2020-09-13] MEDS: LOSARTAN POTASSIUM 50 MG TAB PO SCH (08:34)
[2020-09-13] MEDS: POT PHOSPHATE MONOBASIC W/ SOD TAB PO SCH ×3 (08:34→19:27)
[2020-09-13] MEDS: CHOLECALCIFEROL 1,000 UNITS 25 MCG TAB PO SCH (08:35)
[2020-09-13] MEDS: DULoxetine HCL 20 MG CAP PO SCH (08:35)
[2020-09-13] MEDS: GABAPENTIN 300 MG CAP PO SCH ×3 (08:35→19:26)
[2020-09-13] MEDS: FEBUXOSTAT 40 MG TABLET PO SCH (08:35)
[2020-09-13] MEDS: DOCUSATE SODIUM/SENNA 50/8.6MG TAB PO SCH ×2 (08:35→19:28)
[2020-09-13] MEDS: PANTOprazole 40 MG TAB PO SCH (08:36)
[2020-09-13] MEDS: cefTRIAXone SODIUM 2,000 MG in DEXTROSE 5% 50 ML IV SCH (08:40)
[2020-09-13] MEDS: ACETAMINOPHEN 325 MG TAB PO SCH ×3 (08:40→19:28)
[2020-09-13] MEDS: MYCOPHENOLATE MOFETIL 250 MG CAP PO SCH ×2 (09:12→19:26)
[2020-09-13 09:23] LABS: Hematocrit (blood only) 28.7 % (42-52); Hemoglobin 9.4 g/dL (14.0-18.0); Mean Corpuscular Hemoglobin 29.4 pg (25-34); Mean Corpuscular Hgb Conc 32.8 g/dL (32-36); Mean Corpuscular Volume 89.7 fL (80-100); Mean Platelet Volume 10.1 fL (7.4-10.4); Nucleated RBC # (auto) 0.03 K/uL (0-0); Nucleated RBC % (auto) 0.4 %; Platelet Count 347 K/uL (130-400); RDW Coefficient of Variation 15.3 % (11.5-14.5); RDW Standard Deviation 50.1 fL (36.4-46.3); White Blood Count 8.68 K/uL (4.8-10.8)
[2020-09-13] MEDS ORDERED: HYDROmorphone INJ 1 MG/ML SYRINGE IV STA (09:25)
[2020-09-13] MEDS ORDERED: HYDROmorphone INJ 1 MG/ML SYRINGE ONE (09:29)
[2020-09-13 09:39] LABS: ALC (manual) 0.08 K/uL (1.2-3.4); ANC (manual) 7.92 K/uL (1.4-6.5); Lymphocytes # (manual) 0.08 K/uL (1.2-3.4); Lymphocytes % (manual) 0.9 %; Monocytes # (manual) 0.45 K/uL (0.11-0.59); Monocytes % (manual) 5.2 %; Myelocytes # (manual) 0.23 K/uL (0-0); Myelocytes % (manual) 2.6 %; Neutrophils # (manual) 7.92 K/uL (1.4-6.5); Neutrophils % (manual) 91.3 %
[2020-09-13 10:07] LABS: BUN Creatinine Ratio 21.4 (10-20); Calcium 8.7 mg/dl (8.5-10.1); Creatinine Clr Calc Pharmacy 43.8 ml/min; Est GFR (African American) 30.1; Potassium 4.4 mmol/L (3.5-5.1)
[2020-09-13 10:49] LABS: Base Excess ABG -3.8 mEq/L (-9-1.8); HCO3 ABG 19 mmol/L (19-24); PCO2 ABG 29 mmHg (35-46); PO2 ABG 48 mmHg (80-95); pH ABG 7.44 (7.35-7.45)
[2020-09-13 10:55] LABS: Allen Test Pos (Pos)
--- NOTE | 2020-09-13 10:58 | Nephrology Progress Note ---
Date of Service September 13, 2020 Assessment & Plan (1) Acute on chronic renal insufficiency: In many respects, things are trending in a positive direction. His hemoglobin is somewhat higher without additional transfusions in the past 24 hours. His BUN and creatinine are trending back toward normal with hydration. His white blood cell count is normal but he is markedly shifted to the left. His blood pressure is back to his baseline without treatment. However, today he has got a markedly altered mental status. This may be metabolic but I doubt seriously that it is related to his renal function. He does not appear to be septic. He does not appear to have any focal neurologic changes that could be attributed to his recent bout of COVID. His serum calcium is normal. He has been hypercalcemic in the past in association with his history of sarcoidosis. That is not a current issue. He is continued to be in a great deal of pain as would be expected given the size of his rectus sheath hematoma. It certainly is possible that his hydromorphone which she has been receiving is gotten to a level that could affect the changes seen. Additionally, he has been on Neurontin. The recent slide in his renal function may have led to a significant accumulation of that drug which she does take in a significant dose. As far as his acute renal insufficiency was concerned that is obviously improving. His cyclosporine level was back and remains in the therapeutic range. I met with Dr. Basurto and we discussed his approach to care. Arterial blood gases will be drawn. If he has an increase in his PCO2 that might support the fact that he has been over treated with narcotics and that accounts for the change in his mental status. We have also ordered a gabapentin blood level which, unfortunately, will take several days to come back. We could adjust the dose of that drug downward, at least for now. I also discussed giving him a trial dose of Narcan to see if that would abruptly change his mental status. We will make that decision after we see his arterial blood gases. I would continue with his hydration and close monitoring of his BUN, creatinine and electrolytes. We will continue to follow him closely with you. (2) Renal transplant recipient: (3) Rectus sheath hematoma: Admission and Anticipated Discharge Date Admission Date: September 10, 2020 Subjective Mr. Prado was found to be very different this morning. When I entered the room, he had grunting respirations and seemed to be thrashing around in bed a bit. He was not answering questions completely. He did respond to his name but did not answer more specific questioning such as "where are you?" He said he was having some pain. He said that he had to move his bowels. Overnight, he was apparently complaining of some significant pain and did receive several injections of hydromorphone. This morning, the nurses apparently noticed that he was shaking a bit and seemed confused. He denies being short of breath. His oxygen saturations via pulse oximetry have been between 90 and 92 on room air. He has not had any significant fevers. His laboratory work, if anything is improved as will be noted below. Physical Exam Physical Exam: On physical examination, Mr. Prado appears as a very large man of about his recorded age of 60. His arm seemed a bit tremulous. He was thrashing around in bed. As noted, he seemed confused and did not answer questions completely. His blood pressure was 153/76. His pulse is 98 and regular. His respiratory rate was 20-24 with an oxygen saturation of 90-92% on room air. He is afebrile (36.5). His skin shows normal skin turgor. He has multiple ecchymoses. He has multiple scars from prior surgical procedures including a scar on his left forearm from the creation of an AV fistula and a right lower quadrant scar from his kidney transplant. He has a large scar on the back of his left calf from the resection of a malignant melanoma. He has changes of venous stasis dermatitis on his distal lower extremities. He has no evidence of lymphangitis. His head is grossly normal. Eyes are grossly normal. The ocular fundi were not examined. Pupils were equal and constricted but not pinpoint. Extraocular movements appeared to be intact. Ears, nose, mouth and throat are unremarkable although oral mucous membranes still are slightly dry. His chest is clear to auscultation. Diaphragms are elevated and breath sounds are diminished at the bases related to his body habitus. Cardiac exam shows a regular rhythm. S1 and S2 are normal. He has a grade 2/6 systolic ejection murmur heard at the base and upper left sternal border and radiating toward the neck. His abdomen continues to show some tenderness in the left side over a palpable subcutaneous mass consistent with a hematoma. He did not seem to be as tender as he had been previously. His renal transplant is palpable in the right lower quadrant. It is nontender. There is a soft bruit over the graft. There was no other organomegaly or mass. Bowel sounds are normal. I heard no abdominal bruits other than that over his transplant. Extremities showed the venous stasis changes noted above. He has an IV in his right arm he has a left forearm AV fistula. He has changes of osteoarthritis involving his knees. His neurologic exam shows the mental status changes noted. Cranial nerves seem to be intact. His pupils were somewhat constricted but not pinpoint. He has good strength in upper and lower extremities. He has normal sensation to light touch in all 4 extremities. Deep tendon reflexes were not checked. No pathologic reflexes were noted. Results & Data ([facility]) Vital Signs (Past 12 Hours) Vital Signs Temp Pulse Resp BP Pulse Ox 09/13/20 07:38 36.5 C 98 H 24 153/76 H 92 09/13/20 04:36 94 09/13/20 04:34 36.8 C 85 20 155/83 H 88 L Laboratory Results Laboratory Results - last 24 hr 09/10/20 09/13/20 09/13/20 00:58 09:02 09:02 WBC 8.68 RBC 3.20 L Hgb 9.4 L Hct 28.7 L MCV 89.7 MCH 29.4 MCHC 32.8 RDW Std Deviation 50.1 H RDW Coeff of Theresa 15.3 H Plt Count 347 MPV 10.1 Absolute Nucleated RBC 0.03 H Nucleated RBC % (auto) 0.4 Neutrophils % (Manual) 91.3 Lymphocytes % (Manual) 0.9 Monocytes % (Manual) 5.2 Myelocytes % (Man) 2.6 Neutrophils # (Manual) 7.92 H Total Absolute Neuts 7.92 H Lymphocytes # (Manual) 0.08 L Total Abs Lymphocytes 0.08 L Monocytes # (Manual) 0.45 Myelocytes # (Manual) 0.23 H ABG pH ABG pCO2 ABG pO2 ABG HCO3 ABG O2 Saturation ABG Base Excess Dg Test Oxygen Given Sodium Pending Potassium 4.4 Chloride 115 H Carbon Dioxide 22 Anion Gap 8.0 BUN 55 H Creatinine 2.59 H D Est Cr Clr Drug Dosing 43.8 Est GFR ( Amer) 30.1 Est GFR (Non-Af Amer) 26.0 BUN/Creatinine Ratio 21.4 H Glucose 91 Calcium 8.7 Ammonia Crossmatch See Detail 09/13/20 09/13/20 10:36 10:36 WBC RBC Hgb Hct MCV MCH MCHC RDW Std Deviation RDW Coeff of Theresa Plt Count MPV Absolute Nucleated RBC Nucleated RBC % (auto) Neutrophils % (Manual) Lymphocytes % (Manual) Monocytes % (Manual) Myelocytes % (Man) Neutrophils # (Manual) Total Absolute Neuts Lymphocytes # (Manual) Total Abs Lymphocytes Monocytes # (Manual) Myelocytes # (Manual) ABG pH Pending ABG pCO2 Pending ABG pO2 Pending ABG HCO3 Pending ABG O2 Saturation Pending ABG Base Excess Pending Dg Test Pending Oxygen Given Pending Sodium Potassium Chloride Carbon Dioxide Anion Gap BUN Creatinine Est Cr Clr Drug Dosing Est GFR ( Amer) Est GFR (Non-Af Amer) BUN/Creatinine Ratio Glucose Calcium Ammonia Pending Crossmatch PG Care Time/CCT Total # of Minutes Spent Total Time Spent with Patient: Total time spent is greater than 50% in coordination of care (as documented) at patient's floor/unit and/or counseling patient: 60 min. Coding Level of Care Code 80848 Subseq Hosp Care Lvl 3 Diagnoses Acute on chronic renal insufficiency N28.9; N18.9 Renal transplant recipient Z94.0 Rectus sheath hematoma S30.1XXA
--- NOTE | 2020-09-13 18:29 | Hospitalist Progress Note ---
Date of Service September 13, 2020 Assessment & Plan (1) Encephalopathy: Appears to be multifactorial metabolic encephalopathymost likely pain, poor sleep, and pain medicines all contributing. Given his morbid obesity and the need for narcotic pain medswe will check an ABG to ensure no hypercapnia complicating the picture. (Late addendum it was fine). Also check ammonia given that he is confused and somewhat tremuloushe had no reason to have hepatic encephalopathy but his clinical picture at the bedside appeared somewhat consistent (late addendum it was fine as well). Time and supportive carehe appears to have improved in discussions with nursing whenever I go to recheck him later in the afternoon. The difficult balance would favor continuing current care and additional supportive care, as uncontrolled pain can sometimes be as delirium genic his pain medicines. The question of whether or not he accumulated gabapentin was raisedbut given his improvement, I doubt this is the case with hindsight. (2) Rectus sheath hematoma: Rectus sheath hematoma with acute blood loss anemia thus far requiring 2 units transfusion, stemming from Coumadin coagulopathy, which in turn likely stemmed from poor p.o. intake in the face of ongoing medical adherence to his Coumadin regimen brought on by recent COVID-19 infection. --> Has been transfused a total of 4 units packed red cells, now stable, bleeding has ceased --->pain control and supportive care (3) Symptomatic anemia: Four total units transfusionhe has LORENZO on CKD likely related to poor forward flow from the anemia, and fortunately with transfusions this has started to show good improvement. Overall symptomatic anemia is the acute blood loss anemia stemming from Coumadin coagulopathy. (4) Supratherapeutic INR: now corrected. will need to resume at some point given prior DVTs, vs possibly eliquis if possible w renal function? (5) COVID-19: Previously had Covid. He does not appear to be symptomatic from it anymore, his PCR continues to test positive which is not surprising, does not appear to need any particular treatment or infection precautions. (6) Renal transplant recipient: Continue chronic immunosuppressive regimen (7) Hypercholesteremia: On simvastatin as an outpatient (8) Hypertension: Follow blood pressureshowing hemodynamic stability now. (9) Neuropathy: See above, with his improvement, continue gabapentin at home dosing (10) GERD (gastroesophageal reflux disease): (11) Immunocompromised: See above (12) UTI (urinary tract infection): Is on ceftriaxone for now. It appears he has been treated for prostatitis as an outpatient. (13) DVT (deep venous thrombosis): Chronically anticoagulated due to this. Fortunately last DVT was quite a while ago. Obviously will need to give consideration to resuming anticoagulation in the future once his current situation is much more stable. No clear signs or symptoms of VTE today (14) Discharge planning issues: Ongoing inpatient care until he has better pain improvement. Hopefully will be able to be discharged to home. Admission and Anticipated Discharge Date Admission Date: September 10, 2020 Subjective Much more confused this morning. Appears in significant pain, but also somewhat tremulous and only gives 1 word answers. The 1 word answers are fairly unreliable as well. Seems to not feel short of breath, seems to have abdominal pain. HPI and review of systems otherwise unobtainable. PCP/nephrology in the room at the same time as me, we discussed the case together. Later I revisitedpatient was going to the bathroom, but in discussion with nursing his mentation had much improved. Vitals noted, in general he is sitting upright in bed shaking somewhat tremulous separate from the shaking, appearing in pain. He gives 1 word answers on a extreme delay and without a whole lot of reliability. HEENT normocephalic atraumatic mucous membranes moist. Lungs are clear to auscultation bilaterally no rales rhonchi or wheezes with good effort, cardio is very distant but sounds to be regular no rubs murmurs gallops. Abdomen is soft moderately distended ongoing left-sided firmness as before. Extremities show no cyanosis. Neuro shows cranial nerves II through XII to be grossly intact gross motor appears to be symmetric, sensory cannot really be checked due to his mental status, but overall he shows no localizing signs Review of Systems Review of Systems: Unobtainable due to cognitive status Physical Exam Physical Exam: see above, accidentally put in subjective section Results & Data Results & Data ([facility]) Vital Signs (Past 12 Hours) Vital Signs Temp Pulse Resp BP Pulse Ox 09/13/20 15:32 97.5 F L 70 20 123/71 95 09/13/20 12:01 94 09/13/20 11:34 85 L 09/13/20 07:38 97.7 F 98 H 24 153/76 H 92 PG Care Time/CCT Total # of Minutes Spent Total Time Spent with Patient: Total time spent is greater than 50% in coordination of care (as documented) at patient's floor/unit and/or counseling patient: Coding Level of Care Code 78967 Subseq Hosp Care Lvl 3 Diagnoses Encephalopathy G93.40 Rectus sheath hematoma S30.1XXA Symptomatic anemia D64.9 Supratherapeutic INR R79.1 COVID-19 U07.1 Renal transplant recipient Z94.0 Hypercholesteremia E78.00 Hypertension I10 Hypertension type: essential hypertension Neuropathy G62.9 GERD (gastroesophageal reflux disease) K21.9 Immunocompromised D89.9 UTI (urinary tract infection) N39.0 DVT (deep venous thrombosis) I82.409 DVT location: lower extremity Affected thrombotic vein of extremity: unspecified vein of extremity Chronicity: unspecified Laterality: unspecified laterality Discharge planning issues Z02.9 (1) Hypertension Hypertension type: essential hypertension Qualified Code(s): I10 - Essential (primary) hypertension (2) DVT (deep venous thrombosis) DVT location: lower extremity Affected thrombotic vein of extremity: unspecified vein of extremity Chronicity: unspecified Laterality: unspecified laterality Qualified Code(s): I82.409 - Acute embolism and thrombosis of unspecified deep veins of unspecified lower extremity
[2020-09-13] MEDS: SIMVASTATIN 40 MG TAB PO SCH (19:25)
[2020-09-13] MEDS: TAMSULOSIN HCL 0.4 MG CAP PO SCH (19:25)
[2020-09-13] MEDS: oxyCODONE HCL IR 5 MG TAB (IMMEDIATE RELEASE) PO PRN (22:25)
[2020-09-14] MEDS: SODIUM CHLORIDE 0.9% 1000ML 1,000 ML IV SCH (00:31)
[2020-09-14] MEDS: oxyCODONE HCL IR 5 MG TAB (IMMEDIATE RELEASE) PO PRN ×3 (04:36→15:24)
[2020-09-14] MEDS: POT PHOSPHATE MONOBASIC W/ SOD TAB PO SCH ×3 (10:06→20:18)
[2020-09-14] MEDS: MYCOPHENOLATE MOFETIL 250 MG CAP PO SCH ×2 (10:07→20:19)
[2020-09-14] MEDS: MAGNESIUM OXIDE 400 MG TAB PO SCH ×3 (10:07→20:19)
[2020-09-14] MEDS: cycloSPORINE 100 MG CAP PO SCH ×2 (10:08→20:18)
[2020-09-14] MEDS: GABAPENTIN 300 MG CAP PO SCH ×3 (10:09→20:20)
[2020-09-14] MEDS: predniSONE 5 MG TAB PO SCH (10:10)
[2020-09-14] MEDS: PANTOprazole 40 MG TAB PO SCH (10:13)
[2020-09-14] MEDS: CHOLECALCIFEROL 1,000 UNITS 25 MCG TAB PO SCH (10:14)
[2020-09-14] MEDS: DULoxetine HCL 20 MG CAP PO SCH (10:14)
[2020-09-14] MEDS: MULTIVITAMIN TAB PO SCH (10:14)
[2020-09-14] MEDS: LOSARTAN POTASSIUM 50 MG TAB PO SCH (10:15)
[2020-09-14] MEDS: FEBUXOSTAT 40 MG TABLET PO SCH (10:15)
[2020-09-14] MEDS: DOCUSATE SODIUM/SENNA 50/8.6MG TAB PO SCH ×2 (10:35→20:20)
[2020-09-14 11:18] LABS: Hematocrit (blood only) 27.1 % (42-52); Hemoglobin 8.9 g/dL (14.0-18.0); Mean Corpuscular Hemoglobin 29.3 pg (25-34); Mean Corpuscular Hgb Conc 32.8 g/dL (32-36); Mean Corpuscular Volume 89.1 fL (80-100); Mean Platelet Volume 9.8 fL (7.4-10.4); Nucleated RBC # (auto) 0.02 K/uL (0-0); Nucleated RBC % (auto) 0.4 %; Platelet Count 334 K/uL (130-400); RDW Coefficient of Variation 15.6 % (11.5-14.5); RDW Standard Deviation 49.8 fL (36.4-46.3); Red Blood Count 3.04 M/uL (4.7-6.1); White Blood Count 5.75 K/uL (4.8-10.8)
[2020-09-14 11:36] LABS: Calcium 8.4 mg/dl (8.5-10.1)
[2020-09-14 11:37] LABS: BUN Creatinine Ratio 19.7 (10-20); Creatinine Clr Calc Pharmacy 54.2 ml/min; Est GFR (Non-African American) 33.6; Potassium 4.1 mmol/L (3.5-5.1)
--- NOTE | 2020-09-14 11:40 | CT Scan Report ---
ABDOMEN AND PELVIS CT WITHOUT CONTRAST CT DOSE: 1689.74 mGy.cm HISTORY: Acute generalized abdominal pain with rectus sheath hematoma abdominal pain, compare size o f hematoma TECHNIQUE: Multiaxial CT images of the abdomen and pelvis were performed without contrast. A dose lo wering technique was utilized adhering to the principles of ALARA. COMPARISON STUDY: CT abdomen and pelvis 09/10/2020, 09/02/2020. FINDINGS: Motion degraded exam. Calcified hilar lymph nodes and pulmonary nodules. Bibasilar groundglass and consolidative opacities are redemonstrated. Noncalcified pulmonary nodules in the bilateral lung bases measuring up to 5 mm a re redemonstrated and unchanged suggestive of noncalcified granulomata. Decreased attenuation of the cardiac blood pool compatible with anemia. Mild bibasilar bronchiectasis. No pneumatosis or pneumoper itoneum. Hepatic steatosis. The unenhanced spleen, pancreas, gallbladder and adrenal glands are unremarkable. Severe atrophy of the bilateral kidneys. Lesions of the bilateral kidneys are again noted which are i ncompletely characterized on this noncontrast study and statistically favor combination of simple and complex cysts. This includes a simple 2.6 cm cyst of the left kidney. No hydronephrosis. Transplante d kidney of the abdominal right lower quadrant appears unremarkable. Mild urinary bladder wall thicke stacia with partial distention. Mild prostamegaly. Small fat filled left inguinal hernia. Small fat fan led periumbilical hernia. No aortic aneurysm or adenopathy. No bowel obstruction or bowel wall thickening. No CT evidence of acute appendicitis. There is a large left rectus sheath acute hematoma with hematocrit level now measuring 11.9 x 4.6 x 30 cm, previously 14 x 6.8 x 30 cm. There is however increased size of the rectus sheath hematoma of the inferior comp onent on image 369 measuring 11.7 x 5.8 cm in transverse and AP dimensions. Additionally, there is ex traperitoneal hemorrhagic extension posterior to the rectus sheath. Mild anterior abdominal subcutane ous edema. No acute fractures. Degenerative changes of the spine, pelvis and hips. IMPRESSION: 1. Large acute left-sided rectus sheath hematoma measuring up to approximately 30 cm in length is red emonstrated. The majority of the hematoma has decreased in size, however the inferior component now d emonstrating extra muscular extraperitoneal extension has increased in size as above. 2. Bibasilar pulmonary opacities redemonstrated suggestive of viral pneumonia. 3. No bowel obstruction or bowel wall thickening. 4. Severe atrophy of the [place] kidneys with unremarkable renal transplant. 5. Additional findings as above. ACT 112: Negative or not required by law. The above report was generated using voice recognition software. It may contain grammatical, syntax o r spelling errors. Electronically signed by: Karl Miller M.D. 09/14/2020 11:39 AM
--- NOTE | 2020-09-14 12:03 | Nephrology Progress Note ---
Date of Service September 14, 2020 Assessment & Plan (1) Acute on chronic renal insufficiency: Prerenal and associated and complicated by CNI therapy and acute blood loss. Creatinine returning to baseline. Creatinine 2.0 mg/dL consistent with baseline. Electrolytes are acceptable. Remains on Phos-NaK replacement. Document I/O's. Repeat renal profile tomorrow AM. NAGMA associated with NSS. IVF switched to normosol this AM. Goal is to continue to encourage a positive fluid balance. Medications are appropriately dosed for kidney function. Gabapentin dosing may be excessive and I would encourage an attempt at weaning as tolerated once pain controlled. Losartan has been held. BP and volume status are acceptable. (2) Renal transplant recipient: Continue cyclosporine and MMF at current dose. Maintained on prednisone 5 mg daily. Allograft function acceptable. (3) Rectus sheath hematoma: Follow up CT scan pending today. Admission and Anticipated Discharge Date Admission Date: September 10, 2020 Subjective No acute events overnight. Kirby developed a sudden onset of abdominal pain and discomfort this morning. He was sitting in bed at the time of my assessment. The pain started at rest. Following the onset of symptoms, Kirby was evaluated by Dr. Mendoza. I discussed the plan of care with Dr. Mendoza this AM. Kirby was in obvious discomfort during my assessment but could not describe exactly why. He described feeling irritable. He reported discomfort and tenderness along the right upper side of his abdomen. The discomfort extends along the front portion and is superficially tender. He is breathing comfortably and states that he feels uncomfortable and irritable but otherwise well. No fevers or chills. Review of Systems Review of Systems: All systems reviewed & are unremarkable except as noted in HPI & below Abdominal pain Physical Exam Constitutional: well developed and + obese; no acute distress Eyes: + anicteric sclerae; no corneal abnormality ENMT: Mouth: no oral mucosal abnormality and oral mucous membranes not dry Neck: normal visual inspection and trachea midline Respiratory: normal respiratory effort Auscultation: lungs clear to auscultation bilaterally Cardiovascular: Rate/Rhythm: regular rate Heart Sounds: normal S1 and normal S2 Extremities: + edema (trace, chronic stasis changes noted) Gastrointestinal (Abdomen): Inspection/Auscultation: + abdomen distended and normal bowel sounds Percussion/Palpation: + abdomen tender and abdomen soft; no guarding and abdomen not rigid Musculoskeletal: Extremities: no cyanosis and no clubbing Calf muscle with changes from prior resection of melanoma Skin: normal turgor; no lesions Neurologic: Motor/Sensory: no tremor and no asterixis Psychiatric: Orientation: alert Affect: + depressed affect Results & Data ([facility]) Vital Signs (Past 12 Hours) Vital Signs Temp Pulse Resp BP Pulse Ox 09/14/20 09:37 36.8 C 82 16 148/75 H 92 09/14/20 07:05 36.7 C 76 16 163/91 H 95 Laboratory Results Laboratory Results - last 24 hr 09/13/20 09/14/20 09/14/20 09:02 11:02 11:02 WBC 5.75 RBC 3.04 L Hgb 8.9 L Hct 27.1 L MCV 89.1 MCH 29.3 MCHC 32.8 RDW Std Deviation 49.8 H RDW Coeff of Theresa 15.6 H Plt Count 334 MPV 9.8 Absolute Nucleated RBC 0.02 H Nucleated RBC % (auto) 0.4 Sodium 145 D 143 Potassium 4.1 Chloride 115 H Carbon Dioxide 19 L Anion Gap 9.0 BUN 41 H Creatinine 2.09 H D Est Cr Clr Drug Dosing 54.2 Est GFR ( Amer) 39.0 Est GFR (Non-Af Amer) 33.6 BUN/Creatinine Ratio 19.7 Glucose 74 Calcium 8.4 L PG Care Time/CCT Total # of Minutes Spent Total Time Spent with Patient: Total time spent is greater than 50% in coordination of care (as documented) at patient's floor/unit and/or counseling patient: Coding Level of Care Code 25894 Subseq Hosp Care Lvl 3 Diagnoses Acute on chronic renal insufficiency N28.9; N18.9 Renal transplant recipient Z94.0 Rectus sheath hematoma S30.1XXA
[2020-09-14] MEDS: ACETAMINOPHEN 325 MG TAB PO SCH ×3 (12:35→20:20)
[2020-09-14] MEDS: cefTRIAXone SODIUM 2,000 MG in DEXTROSE 5% 50 ML IV SCH (12:35)
[2020-09-14 12:47] LABS: ALC (manual) 0.05 K/uL (1.2-3.4); Lymphocytes # (manual) 0.05 K/uL (1.2-3.4); Lymphocytes % (manual) 0.9 %; Metamyelocytes # (manual) 0.05 K/uL (0-0); Metamyelocytes % (manual) 0.9 %; Monocytes # (manual) 0.45 K/uL (0.11-0.59); Monocytes % (manual) 7.8 %; Neutrophils % (manual) 90.4 %
[2020-09-14] MEDS: NORMOSOL-R 1,000 ML IV SCH (13:22)
[2020-09-14] MEDS: ULORIC~ORDER AWAITING ACTION SCH ×3 (13:23→22:47)
--- NOTE | 2020-09-14 18:47 | Electrocardiogram Report ---
Test Reason : Blood Pressure : / mmHG Vent. Rate : 078 BPM Atrial Rate : 078 BPM P-R Int : 162 ms QRS Dur : 110 ms QT Int : 380 ms P-R-T Axes : 047 -36 024 degrees QTc Int : 433 ms Normal sinus rhythm Left axis deviation Low voltage QRS Abnormal ECG Confirmed by Manuel Sanchez ([id number] on 09/14/2020 6:47:22 PM Referred By: REFERRED SELF Confirmed By:Anthony Sanchez
[2020-09-14] MEDS: TAMSULOSIN HCL 0.4 MG CAP PO SCH (20:19)
[2020-09-14] MEDS: SIMVASTATIN 40 MG TAB PO SCH (20:19)
--- NOTE | 2020-09-14 20:24 | Hospitalist Progress Note ---
Date of Service September 14, 2020 Assessment & Plan (1) Encephalopathy: Appears to be multifactorial metabolic encephalopathymost likely pain, poor sleep, and pain medicines all contributing. Being able to follow-up with him this evening and seeing a marked improvement in his mental status suggest that pain is probably the main driving factor. Continue pain control and supportive care. (2) Rectus sheath hematoma: Rectus sheath hematoma with acute blood loss anemia thus far requiring 2 units transfusion, stemming from Coumadin coagulopathy, which in turn likely stemmed from poor p.o. intake in the face of ongoing medical adherence to his Coumadin regimen brought on by recent COVID-19 infection. --> Has been transfused a total of 4 units packed red cells, now stable, bleeding has ceased --->pain control and supportive caregiven 2 days in a row of abrupt worsening of pain, repeat CT obtained to ensure stability. The overall size of the hematoma seems to be about the same, but it seems that it is trackingI suspect with the volume of blood in the rectus sheath, the pain/pressure from tracking is what is driving a lot of his abrupt onset and resolution of symptoms. (3) Symptomatic anemia: Four total units transfusionhe had LORENZO on CKD likely related to poor forward flow from the anemia, and fortunately with transfusions this has started to show good improvement. Overall symptomatic anemia is the acute blood loss anemia stemming from Coumadin coagulopathy. No need for further transfusion at this time (4) Supratherapeutic INR: now corrected. will need to resume at some point given prior DVTs, vs possibly eliquis if possible w renal function? (5) COVID-19: Previously had Covid. He does not appear to be symptomatic from it anymore, his PCR continues to test positive which is not surprising, does not appear to need any particular treatment or infection precautions. (6) Renal transplant recipient: Continue chronic immunosuppressive regimen, renal function improved (7) Hypercholesteremia: On simvastatin as an outpatient (8) Hypertension: Follow blood pressureacceptable range given circumstances, consider resumption of home meds in the next day or so depending on his clinical status (9) Neuropathy: See above, continue gabapentin at home dosing (10) GERD (gastroesophageal reflux disease): Famotidine 20 mg IV every 12 hours (11) Immunocompromised: See above (12) UTI (urinary tract infection): Is on ceftriaxone for now. It appears he has been treated for prostatitis as an outpatient. (13) DVT (deep venous thrombosis): Chronically anticoagulated due to this. Fortunately last DVT was quite a while ago. Obviously will need to give consideration to resuming anticoagulation in the future once his current situation is much more stable. N o clear signs or symptoms of VTE today (14) Discharge planning issues: Ongoing inpatient care until he has better pain improvement. Hopefully will be able to be discharged to home once pain has improved Admission and Anticipated Discharge Date Admission Date: September 10, 2020 Subjective Seen twice today. This morning writhing in pain much like yesterday's presentation, a little slow to respond, although at least better than yesterday, able to tell us where we are and may be loosely the circumstances of why he is in such distress. For nursing he had complained of chest painhence the EKG obtainedfortunately no ischemic changes. HPI and review of systems this morning was quite limited due to his pain. Revisiting this evening, he is laying in bed noting he has a mild degree of discomfort but not nearly like earlier. He is mentally clear and offers no other complaints. Review of Systems Review of Systems: All systems reviewed & are unremarkable except as noted in HPI & below Physical Exam Physical Exam: This morning he is in severe distress much like yesterday, slow to respond one-word answers, shaking. This evening he is laying in bed comfortable and conversational. HEENT normocephalic atraumatic mucous membranes moist. Cardio distant lungs are clear, abdomen with ongoing left-sided tenderness that seems to have shifted a more inferior laterally. No guarding, no rebound. No focal neuro deficits. EKG without ischemic changes. CT reviewed. Results & Data Results & Data ([facility]) Vital Signs (Past 12 Hours) Vital Signs Temp Pulse Resp BP Pulse Ox 09/14/20 15:07 98.1 F 83 16 166/88 H 96 09/14/20 09:37 98.2 F 82 16 148/75 H 92 PG Care Time/CCT Total # of Minutes Spent Total Time Spent with Patient: Total time spent is greater than 50% in coordination of care (as documented) at patient's floor/unit and/or counseling patient: Coding Level of Care Code 22446 Subseq Hosp Care Lvl 3 Diagnoses Encephalopathy G93.40 Rectus sheath hematoma S30.1XXA Symptomatic anemia D64.9 Supratherapeutic INR R79.1 COVID-19 U07.1 Renal transplant recipient Z94.0 Hypercholesteremia E78.00 Hypertension I10 Hypertension type: essential hypertension Neuropathy G62.9 GERD (gastroesophageal reflux disease) K21.9 Immunocompromised D89.9 UTI (urinary tract infection) N39.0 DVT (deep venous thrombosis) I82.409 DVT location: lower extremity Affected thrombotic vein of extremity: unspecified vein of extremity Chronicity: unspecified Laterality: unspecified laterality Discharge planning issues Z02.9 (1) Hypertension Hypertension type: essential hypertension Qualified Code(s): I10 - Essential (primary) hypertension (2) DVT (deep venous thrombosis) DVT location: lower extremity Affected thrombotic vein of extremity: unspecified vein of extremity Chronicity: unspecified Laterality: unspecified laterality Qualified Code(s): I82.409 - Acute embolism and thrombosis of unspecified deep veins of unspecified lower extremity
[2020-09-15] MEDS: NORMOSOL-R 1,000 ML IV SCH ×2 (00:35→13:29)
[2020-09-15] MEDS: HYDROmorphone INJ 0.5 MG/0.5 ML SYR IV PRN (00:35)
[2020-09-15 06:40] LABS: Albumin Level 2.7 gm/dl (3.4-5.0); BUN Creatinine Ratio 20.3 (10-20); Calcium 8.6 mg/dl (8.5-10.1); Creatinine Clr Calc Pharmacy 61.6 ml/min; Est GFR (African American) 45.5; Est GFR (Non-African American) 39.2; Potassium 3.9 mmol/L (3.5-5.1)
[2020-09-15 06:41] LABS: Phosphorus 2.8 mg/dl (2.5-4.9)
[2020-09-15] MEDS: ULORIC~ORDER AWAITING ACTION SCH ×2 (09:53→17:27)
[2020-09-15] MEDS: cefTRIAXone SODIUM 2,000 MG in DEXTROSE 5% 50 ML IV SCH (09:55)
[2020-09-15] MEDS: MULTIVITAMIN TAB PO SCH (09:57)
[2020-09-15] MEDS: POT PHOSPHATE MONOBASIC W/ SOD TAB PO SCH ×3 (09:57→20:52)
[2020-09-15] MEDS: DULoxetine HCL 20 MG CAP PO SCH (09:57)
[2020-09-15] MEDS: LOSARTAN POTASSIUM 50 MG TAB PO SCH (09:57)
[2020-09-15] MEDS: GABAPENTIN 300 MG CAP PO SCH ×3 (09:57→20:52)
[2020-09-15] MEDS: predniSONE 5 MG TAB PO SCH (09:57)
[2020-09-15] MEDS: CHOLECALCIFEROL 1,000 UNITS 25 MCG TAB PO SCH (09:57)
[2020-09-15] MEDS: PANTOprazole 40 MG TAB PO SCH (09:57)
[2020-09-15] MEDS: MAGNESIUM OXIDE 400 MG TAB PO SCH ×3 (09:58→20:51)
[2020-09-15] MEDS: MYCOPHENOLATE MOFETIL 250 MG CAP PO SCH ×2 (09:58→20:49)
[2020-09-15] MEDS ORDERED: LOSARTAN POTASSIUM 50 MG TAB PO SCH (10:00)
[2020-09-15] MEDS: ACETAMINOPHEN 325 MG TAB PO SCH ×3 (10:05→20:49)
[2020-09-15] MEDS: DOCUSATE SODIUM/SENNA 50/8.6MG TAB PO SCH ×2 (10:06→20:51)
--- NOTE | 2020-09-15 11:30 | Nephrology Progress Note ---
Date of Service September 15, 2020 Assessment & Plan (1) Acute on chronic renal insufficiency: Prerenal and complicated by CNI therapy and acute blood loss. Creatinine has improved to baseline. Electrolytes are acceptable. Remains on Phos-NaK replacement. Document I/O's. Repeat renal profile tomorrow AM. Remains on normosol infusion which may be discontinued once current bag complete. Goal is to continue to encourage a positive fluid balance. Medications are appropriately dosed for kidney function. Gabapentin dose may be excessive and I would encourage an attempt at weaning as tolerated once pain controlled. Tolerating losartan well. BP and volume status are acceptable. (2) Renal transplant recipient: Continue cyclosporine and MMF at current dose. Maintained on prednisone 5 mg daily. Allograft function acceptable. (3) Rectus sheath hematoma: Follow up CT reviewed yesterday. Area of some extension noted. Hematoma otherwise stable. Admission and Anticipated Discharge Date Admission Date: September 10, 2020 Subjective No acute events overnight. Kirby denied any specific complaints this AM. No fevers or chills. No urinary complaints. Breathing comfortably but remains weak. Activity tolerance reduced. Some discomfort in his abdomen and flank persists but improving. Review of Systems Review of Systems: All systems reviewed & are unremarkable except as noted in HPI & below Physical Exam Constitutional: well developed and + obese; no acute distress Eyes: + anicteric sclerae; no corneal abnormality ENMT: Mouth: no oral mucosal abnormality and oral mucous membranes not dry Neck: normal visual inspection and trachea midline Respiratory: normal respiratory effort Auscultation: lungs clear to auscultation bilaterally Cardiovascular: Rate/Rhythm: regular rate Heart Sounds: normal S1 and normal S2 Extremities: + edema (trace, chronic stasis changes noted) Gastrointestinal (Abdomen): Inspection/Auscultation: + abdomen distended and normal bowel sounds Percussion/Palpation: + abdomen tender and abdomen soft; no guarding and abdomen not rigid Musculoskeletal: Extremities: no cyanosis and no clubbing Skin: normal turgor; no lesions Neurologic: Motor/Sensory: no tremor and no asterixis Psychiatric: Orientation: alert Affect: + depressed affect Results & Data ([facility]) Vital Signs (Past 12 Hours) Vital Signs Temp Pulse Resp BP Pulse Ox 09/15/20 07:12 36.8 C 81 16 170/89 H 95 Laboratory Results Laboratory Results - last 24 hr 09/14/20 09/14/20 09/15/20 11:02 11:02 05:46 Neutrophils % (Manual) 90.4 Lymphocytes % (Manual) 0.9 Monocytes % (Manual) 7.8 Metamyelocytes % (Man) 0.9 Neutrophils # (Manual) 5.20 Total Absolute Neuts 5.20 Lymphocytes # (Manual) 0.05 L Total Abs Lymphocytes 0.05 L Monocytes # (Manual) 0.45 Metamyelocytes # (Man) 0.05 H Sodium 143 142 Potassium 4.1 3.9 Chloride 115 H 111 H Carbon Dioxide 19 L 22 Anion Gap 9.0 9.0 BUN 41 H 37 H Creatinine 2.09 H D 1.84 H Est Cr Clr Drug Dosing 54.2 61.6 Est GFR ( Amer) 39.0 45.5 Est GFR (Non-Af Amer) 33.6 39.2 BUN/Creatinine Ratio 19.7 20.3 H Glucose 74 84 Calcium 8.4 L 8.6 Phosphorus 2.8 Albumin 2.7 L PG Care Time/CCT Total # of Minutes Spent Total Time Spent with Patient: Total time spent is greater than 50% in coordination of care (as documented) at patient's floor/unit and/or counseling patient: Coding Level of Care Code 55588 Subseq Hosp Care Lvl 3 Diagnoses Acute on chronic renal insufficiency N28.9; N18.9 Renal transplant recipient Z94.0 Rectus sheath hematoma S30.1XXA
[2020-09-15] MEDS: cycloSPORINE 100 MG CAP PO SCH ×2 (11:43→20:50)
--- NOTE | 2020-09-15 16:25 | Hospitalist Progress Note ---
Date of Service September 15, 2020 Assessment & Plan (1) Encephalopathy: Appears to be multifactorial metabolic encephalopathymost likely pain, poor sleep, and pain medicines all contributing. We are, having followed him multiple times through the day for multiple days, it is clear that his mental status waxes and wanesit seems to largely coincide with worsening pain, and to a lesser degree coincide with pain medicines. (2) Rectus sheath hematoma: Rectus sheath hematoma with acute blood loss anemia thus far requiring 2 units transfusion, stemming from Coumadin coagulopathy, which in turn likely stemmed from poor p.o. intake in the face of ongoing medical adherence to his Coumadin regimen brought on by recent COVID-19 infection. --> Has been transfused a total of 4 units packed red cells, now stable, bleeding has ceased --->pain control and supportive caregiven the size of the hematoma, this will likely take quite a while to show improvement. He is overall stable, has a difficult balance between pain (causing delirium features when pain intense) and pain meds (causing delirium features from sedating effects of meds) (3) Symptomatic anemia: Four total units transfusionhe had LORENZO on CKD likely related to poor forward flow from the anemia, and fortunately with transfusions this has started to show good improvement. Overall symptomatic anemia is the acute blood loss anemia stemming from Coumadin coagulopathy. No need for further transfusion at this time (4) Supratherapeutic INR: now corrected. will need to resume at some point given prior DVTs, vs possibly eliquis if possible w renal function? (5) COVID-19: Previously had Covid. He does not appear to be symptomatic from it anymore, his PCR continues to test positive which is not surprising, does not appear to need any particular treatment or infection precautions. (6) Renal transplant recipient: Continue chronic immunosuppressive regimen, renal function improved (7) Hypercholesteremia: On simvastatin as an outpatient (8) Hypertension: Follow blood pressure overall acceptable range given circumstances, but stable enough from bleeding to resume losartan. will continue to hold lasix for now (9) Neuropathy: See above, continue gabapentin at home dosing (10) GERD (gastroesophageal reflux disease): Famotidine 20 mg IV every 12 hours (11) Immunocompromised: See above (12) UTI (urinary tract infection): Is on ceftriaxone for now. It appears he has been treated for prostatitis as an outpatient. (13) DVT (deep venous thrombosis): Chronically anticoagulated due to this. Fortunately last DVT was quite a while ago. Obviously will need to give consideration to resuming anticoagulation in the future once his current situation is much more stable. Still no clear signs or symptoms of VTE today (14) Discharge planning issues: Ongoing inpatient care until he has better pain improvement. Hopefully will be able to be discharged to home once pain has improved Admission and Anticipated Discharge Date Admission Date: September 10, 2020 Subjective Ongoing bouts of pain. Whenever I see him first thing this morning he is still having pretty considerable pain, able to answer questions better than before though. Pain is really just in his lower abdomen, same as before, may be slightly less intense. Later whenever I revisit he is sitting up in bed, still having pretty considerable pain but less. Received outside call from his wifewith patient's permission a call to her back. She was adamant that I transfer him to [place] for ongoing care because she felt that he was not doing well. Updated her on the clinical details of his case, his overall stability, and the waxing and waning mental status appearing to be largely due to pain as well as pain medicine. That said, also offered to reach out to [facility] ssed the case with both their admitting hospitalist and part of the transplant team, neither felt there was any justifiable reason for transfer. I called the back and updated. She noted that she felt he probably was stable, but that she felt like if she could see him she would feel better about the situation. Reached out to supervisory staff, obtained permission for to visit patient for a time. Patient expressed good understanding of all of this, and jokingly apologized for his . Offered empathy and support Review of Systems Review of Systems: All systems reviewed & are unremarkable except as noted in HPI & below Physical Exam Physical Exam: In general he is awake alert and oriented x3, pleasant, at different visits throughout the day appears in different degrees of pain distress from mild to moderate. HEENT normocephalic atraumatic mucous members are moist. Cardio is regular, lungs are clear to auscultation bilaterally no rales rhonchi or wheezes good effort. Abdomen soft lower abdominal tenderness on the left side quite consistent with the area of hematoma on CT scan, no other abdominal findings. Extremities show no cyanosis clubbing, chronic venous stasis changes present. No focal neuro deficits. Results & Data Results & Data ([facility]) Vital Signs (Past 12 Hours) Vital Signs Temp Pulse Resp BP Pulse Ox 09/15/20 07:12 98.2 F 81 16 170/89 H 95 PG Care Time/CCT Total # of Minutes Spent Total Time Spent with Patient: Total time spent is greater than 50% in coordination of care (as documented) at patient's floor/unit and/or counseling patient: Coding Level of Care Code 37610 Subseq Hosp Care Lvl 3 Diagnoses Encephalopathy G93.40 Rectus sheath hematoma S30.1XXA Symptomatic anemia D64.9 Supratherapeutic INR R79.1 COVID-19 U07.1 Renal transplant recipient Z94.0 Hypercholesteremia E78.00 Hypertension I10 Hypertension type: essential hypertension Neuropathy G62.9 GERD (gastroesophageal reflux disease) K21.9 Immunocompromised D89.9 UTI (urinary tract infection) N39.0 DVT (deep venous thrombosis) I82.409 DVT location: lower extremity Affected thrombotic vein of extremity: unspecified vein of extremity Chronicity: unspecified Laterality: unspecified laterality Discharge planning issues Z02.9 (1) Hypertension Hypertension type: essential hypertension Qualified Code(s): I10 - Essential (primary) hypertension (2) DVT (deep venous thrombosis) DVT location: lower extremity Affected thrombotic vein of extremity: unspecified vein of extremity Chronicity: unspecified Laterality: unspecified laterality Qualified Code(s): I82.409 - Acute embolism and thrombosis of unspecified deep veins of unspecified lower extremity
--- NOTE | 2020-09-15 16:27 | Billing Data ---
Date of Service September 15, 2020 Coding Level of Care Code 99927 Subseq Hosp Care Lvl 3
[2020-09-15] MEDS: oxyCODONE HCL IR 5 MG TAB (IMMEDIATE RELEASE) PO PRN (19:45)
[2020-09-15] MEDS: SIMVASTATIN 40 MG TAB PO SCH (20:50)
[2020-09-15] MEDS: TAMSULOSIN HCL 0.4 MG CAP PO SCH (20:51)
[2020-09-16] MEDS: ULORIC~ORDER AWAITING ACTION SCH ×4 (00:15→23:59)
[2020-09-16] MEDS: NORMOSOL-R 1,000 ML IV SCH (00:15)
[2020-09-16] MEDS: oxyCODONE HCL IR 5 MG TAB (IMMEDIATE RELEASE) PO PRN ×2 (07:25→12:26)
[2020-09-16] MEDS: GABAPENTIN 300 MG CAP PO SCH ×3 (07:27→20:14)
--- NOTE | 2020-09-16 08:25 | Hospitalist Progress Note ---
Date of Service September 16, 2020 Assessment & Plan (1) Encephalopathy: #Encephalopathy Appears to be multifactorial metabolic encephalopathymost likely pain, poor sleep, and pain medicines all contributing. We are, having followed him multiple times through the day for multiple days, it is clear that his mental status waxes and wanesit seems to largely coincide with worsening pain, and to a lesser degree coincide with pain medicines. -Delirium precautions -See below -Significant improvement today per review of prior documentation -Appears to improve when his is around -Dr. Pablo is pt outpt pcp his note indicates the patient is almost back to baseline -Spoke with patient's this evening provided updates and discussed improvement in patient's overall mental status. Addressed her concerns and provided reassurance. -Anticipate discharge tomorrow #Rectus sheath hematoma with associated symptomatic anemia 2/2 supratheraputic INE Patient presented to the hospital with a supratherapeutic INR of 10.7 and rectus sheath hematoma with acute blood loss anemia initially requiring 2 units transfusion, stemming from Coumadin coagulopathy, which in turn likely stemmed from poor p.o. intake in the face of ongoing medical adherence to his Coumadin regimen brought on by recent COVID-19 infection. On presentation had LORENZO on CKD likely related to poor forward flow from the anemia, and fortunately with transfusions this has started to show good improvement. As of 09/11 he has received Four total units of PRBCs, hemoglobin has been stable, patient is no longer symptomatic, INR has been stable, no need for further transfusion at this time. CT obtained 08/1720 demonstrated 30 cm hematoma that has decreased in size, with some extension of the inferior component. -Monitor for hematoma size expansion clinically -Monitor H&H and INR every other day -INR: 1.3 -resume warfarin tomorrow #Pain secondary to rectus sheath hematoma Throughout the hospitalization he has endorsed significant pain at the site of the hematoma. We have been struggling with a difficult balance between pain (causing delirium features when pain intense) and pain meds (causing delirium features from sedating effects of meds) -Current regimen achieved pain control however question whether gabapentin dose is contributing to waxing and waning mental status -For the most part only using p.o. oxycodone, 1 as needed hydromorphone over the last 24 hours #History of DVT Chronically anticoagulated due to this. Fortunately last DVT was quite a while ago. Plan to resume anticoagulation with warfarin when the patient is more stable. Given the dietary restrictions and need for frequent lab monitoring to consider transition to Eliquis if kidney is well tolerated. -No signs or symptoms of VTE/DVT -Resume warfarin tomorrow given history of recent hematoma will defer bridging with heparin #History of COVID-19 Previously had Covid. He does not appear to be symptomatic from it anymore, his PCR continues to test positive which is not surprising, does not appear to need any particular treatment or infection precautions. #Immunocompromised secondary to history of renal transplant Continue chronic immunosuppressive regimen, renal function improved #UTI Is on ceftriaxone for now. It appears he has been treated for prostatitis as an outpatient. #Hypercholesterolemia Continue simvastatin #Hypertension Chronic long history of, on Lasix and losartan as an outpatient. Initially both were held, losartan has since been resumed. -Continue losartan -Continue holding Lasix #Neuropathy -See above, continue gabapentin at home dosing #GERD -Famotidine 20 mg IV every 12 hours #Discharge planning issues -Ongoing inpatient care until he has better pain improvement. FENa: Renal diet Code Status: Full code DVT PPX: SCDs PT/OT: Ordered Dispo: Nancy Nava MD PGY 2, FCM This chart was completed utilizing [employer] voice recognition software. Grammatical errors, random word insertions, pronoun errors, and in complete sentences are an occasional consequence of the system. Any questions or concerns about the content, text, or information contained within the body of this dictation should be addressed directly to the physician for clarification. (2) Rectus sheath hematoma: (3) Symptomatic anemia: (4) Supratherapeutic INR: (5) COVID-19: (6) Renal transplant recipient: (7) Hypercholesteremia: (8) Hypertension: (9) Neuropathy: (10) GERD (gastroesophageal reflux disease): (11) Immunocompromised: See above (12) UTI (urinary tract infection): (13) DVT (deep venous thrombosis): (14) Discharge planning issues: Admission and Anticipated Discharge Date Admission Date: September 10, 2020 Supervising Physician Co-Signing Physician Notes Attending attestation Pt seen and examined in concert with Dr. Nava. In agreement with the documented findings as noted in the resident documentation with any exceptions or additions as noted here. Pt resting comfortably in bed, pain reported as central/lower abd pain c/w previous now 10/07 and controlled with medications. Able to answer questions directly and appropriately re: pain, condition, other complaints. AAOx2 - place and self, time he is able to do day (readily) month (with difficulty) but not year, but knows who the president is. Seems very focus/attention difficulty c/w pain/medication. S1/S2 nl RRR, 2/6 JULY at right 2nd intercostal. CTAB. Abd NT/ND BS+ve Encephalopathy - waxing and waning, ?pain/medication - appears to be improving gradually, based on records, evaluation. Continue to monitor Rectus sheath hematoma w/ symptomatic anemia s/p txf - pain control improved w/ current medication. Next goal is transitioning to PO only. hgb stable s/p txf. Supratherapeutic INR w/ h/o multiple DVT - improved following reversal - restart AC with continued stability/reduction in size of hematoma Heart murmur - patient does not recall history of same, Dr. Nava to chart review and evaluate if no previous h/o same. Else see resident documentation as noted. Subjective Patient sitting up in bed this morning in no acute distress. Patient responses seem to be a little bit slowed, as if he is difficulty focusing. He reports no acute events overnight, when asked about how his care was going he responded "how should my care be going "in a questioning. Patient has been tolerating his diet, voiding, stooling, for the most part his pain is well controlled, still endorsing intermittent left lower quadrant pain where his hematoma is. Per conversation with nursing the patient's mental status and communication abilities appear to wax and wane depending upon who is in the room. Per report when his came to visit his personality and ability to interact meanin gfully improved significantly, however when nursing return to the room he returned to his hospital baseline. All questions were answered, no acute concerns Physical Exam Physical Exam: General: No acute distress HEENT: Normocephalic atraumatic Neck: No significant lymphadenopathy, trachea midline, normal to visual ins pection Cardiac: Regular rate and rhythm, normal S1, normal S2, I did not appreciated any significant murmurs rubs or gallops, 2+ pedal edema, No calf tenderness, capillary refill is less than 3 seconds Respiratory: Clear to auscultation bilaterally with symmetrical chest rise, I did not appreciate any significant wheezes, rales, rhonchi, no increased work of breathing GI: Normal bowel sounds, soft, nontender in all 4 quadrants, nondistended, left lower quadrant pain that correlates with CT site of the hematoma Neuro: Alert and oriented x4 Psych: Calm, cooperative, logical thought process Results & Data Results & Data ([facility]) Vital Signs (Past 12 Hours) Vital Signs Temp Pulse Resp BP Pulse Ox 09/16/20 07:31 36.7 C 74 18 169/92 H 92 09/15/20 22:45 36.6 C 77 22 149/85 H 92 Laboratory Results 09/16/20 09/16/20 09/16/20 Range/Units 08:26 08:26 08:26 WBC 3.95 L (4.8-10.8) K/uL RBC 3.08 L (4.7-6.1) M/uL Hgb 9.0 L (14.0-18.0) g/dL Hct 27.8 L (42-52) % MCV 90.3 (80-100) fL MCH 29.2 (25-34) pg MCHC 32.4 (32-36) g/dL RDW Std Deviation 50.0 H (36.4-46.3) fL RDW Coeff of Theresa 15.4 H (11.5-14.5) % Plt Count 325 (130-400) K/uL MPV 9.4 (7.4-10.4) fL Immature Gran % (Auto) 6.1 % Neut % (Auto) 72.3 % Lymph % (Auto) 19.7 % [place] % (Auto) 0.8 % Eos % (Auto) 0.8 % Baso % (Auto) 0.3 % Neut # (Auto) 2.86 (1.4-6.5) K/uL Lymph # (Auto) 0.78 L (1.2-3.4) K/uL [place] # (Auto) 0.03 L (0.11-0.59) K/uL Eos # (Auto) 0.03 (0-0.5) K/uL Baso # (Auto) 0.01 (0-0.2) K/uL Immature Gran # (Auto) 0.24 H (0.00-0.02) K/uL Toxic Granulation 1+ PT 13.0 H (9.0-12.0) Seconds INR 1.3 H (0.9-1.1) Sodium 142 (136-145) mmol/L Potassium 4.0 (3.5-5.1) mmol/L Chloride 109 H (98-107) mmol/L Carbon Dioxide 24 (21-32) mmol/L Anion Gap 9.0 (3-11) BUN 32 H (7-18) mg/dl Creatinine 1.70 H (0.6-1.4) mg/dl Est Cr Clr Drug Dosing 66.7 ml/min Est GFR ( Amer) 50.0 Est GFR (Non-Af Amer) 43.2 BUN/Creatinine Ratio 18.8 (10-20) Glucose 86 (70-99) mg/dl Calcium 8.5 (8.5-10.1) mg/dl Gabapentin mcg/mL 09/13/20 Range/Units 10:42 WBC (4.8-10.8) K/uL RBC (4.7-6.1) M/uL Hgb (14.0-18.0) g/dL Hct (42-52) % MCV (80-100) fL MCH (25-34) pg MCHC (32-36) g/dL RDW Std Deviation (36.4-46.3) fL RDW Coeff of Theresa (11.5-14.5) % Plt Count (130-400) K/uL MPV (7.4-10.4) fL Immature Gran % (Auto) % Neut % (Auto) % Lymph % (Auto) % [place] % (Auto) % Eos % (Auto) % Baso % (Auto) % Neut # (Auto) (1.4-6.5) K/uL Lymph # (Auto) (1.2-3.4) K/uL [place] # (Auto) (0.11-0.59) K/uL Eos # (Auto) (0-0.5) K/uL Baso # (Auto) (0-0.2) K/uL Immature Gran # (Auto) (0.00-0.02) K/uL Toxic Granulation PT (9.0-12.0) Seconds INR (0.9-1.1) Sodium (136-145) mmol/L Potassium (3.5-5.1) mmol/L Chloride (98-107) mmol/L Carbon Dioxide (21-32) mmol/L Anion Gap (3-11) BUN (7-18) mg/dl Creatinine (0.6-1.4) mg/dl Est Cr Clr Drug Dosing ml/min Est GFR ( Amer) Est GFR (Non-Af Amer) BUN/Creatinine Ratio (10-20) Glucose (70-99) mg/dl Calcium (8.5-10.1) mg/dl Gabapentin 10.4 mcg/mL Medications Administered Current Inpatient Medications Acetaminophen (Acetaminophen 325 Mg Tab) 650 mg PO TID RANDELL Stop: 10/10/20 13:59 Last Admin: 09/16/20 13:16 Dose: 650 mg Documented by: Benzonatate (Benzonatate 100 Mg Capsule) 100 mg PO TID PRN PRN Reason: Cough Stop: 10/12/20 20:59 Last Admin: 09/12/20 17:32 Dose: 100 mg Documented by: Cyclosporine (Cyclosporine 100 Mg Cap) 200 mg PO BID RANDELL Stop: 10/10/20 08:59 Last Admin: 09/16/20 08:58 Dose: 200 mg Documented by: Duloxetine HCl (Duloxetine Hcl 20 Mg Cap) 20 mg PO QAM RANDELL Stop: 10/13/20 08:59 Last Admin: 09/16/20 08:58 Dose: 20 mg Documented by: Gabapentin (Gabapentin 300 Mg Cap) 900 mg PO HS RANDELL Stop: 10/12/20 21:59 Last Admin: 09/15/20 20:52 Dose: 900 mg Documented by: Gabapentin (Gabapentin 300 Mg Cap) 600 mg PO DAILY@0800,1400 RANDELL Stop: 10/13/20 07:59 Last Admin: 09/16/20 13:14 Dose: 600 mg Documented by: Hydromorphone HCl (Hydromorphone Inj 0.5 Mg/0.5 Ml Syr) 0.25 mg IV Q3H PRN PRN Reason: Pain (1,2,3,4,5) & Pre PT Stop: 09/24/20 20:45 Last Admin: 09/11/20 03:59 Dose: 0.25 mg Documented by: Hydromorphone HCl (Hydromorphone Inj 0.5 Mg/0.5 Ml Syr) 0.5 mg IV Q3H PRN PRN Reason: Pain (6,7,8,9,10) Stop: 09/24/20 20:45 Last Admin: 09/15/20 00:35 Dose: 0.5 mg Documented by: Ceftriaxone Sodium 2,000 mg/ (Dextrose) 70 mls @ 100 mls/hr IV DAILY [facility]; Protocol Stop: 09/20/20 08:59 Last Infusion: 09/16/20 09:49 Dose: Infused Documented by: Losartan Potassium (Losartan Potassium 50 Mg Tab) 100 mg PO QAM [facility] Stop: 10/13/20 08:59 Last Admin: 09/16/20 08:58 Dose: 100 mg Documented by: Magnesium Oxide (Magnesium Oxide 400 Mg Tab) 800 mg PO TID [facility] Stop: 10/12/20 21:59 Last Admin: 09/16/20 13:14 Dose: 800 mg Documented by: Miscellaneous (Uloric~Order Awaiting Action) 1 ea N/A QS [facility] Stop: 10/14/20 12:59 Last Admin: 09/16/20 07:27 Dose: Not Given Documented by: [facility]ivitamins (Multivitamin Tab) [facility] [place]: 10/13/20 08:59 Last Admin: 09/16/20 08:58 Dose: 1 tab Documented by: Mycophenolate Mofetil (Mycophenolate Mofetil 250 Mg Cap) 500 mg PO BID [facility] Stop: 10/11/20 20:59 Last Admin: 09/16/20 08:58 Dose: 500 mg Documented by: Naloxone HCl (Naloxone Hcl 0.4 Mg/1 Ml Vial/Carp) 0.1 mg IV Q5M PRN; Protocol PRN Reason: Oversedation/Resp Depression Stop: 09/24/20 09:52 Oxycodone HCl (Oxycodone Hcl Ir 5 Mg Tab (Immediate Release)) 5 mg PO Q4 PRN PRN Reason: Pain Stop: 09/26/20 07:56 Last Admin: 09/16/20 12:26 Dose: 5 mg Documented by: Pantoprazole Sodium (Pantoprazole 40 Mg Tab) 40 mg PO QAM [facility] Stop: 10/13/20 08:59 Last Admin: 09/16/20 08:58 Dose: 40 mg Documented by: Potassium Phosphate (Pot Phosphate Monobasic W/ Sod Tab) 2 tab PO TID [facility] Stop: 10/12/20 21:59 Last Admin: 09/16/20 13:14 Dose: 2 tab Documented by: Prednisone (Prednisone 5 Mg Tab) 5 mg PO DAILY [facility] Stop: 10/12/20 08:59 Last Admin: 09/16/20 08:58 Dose: 5 mg Documented by: Senna/Docusate Sodium (Docusate Sodium/Senna 50/8.6mg Tab) 1 tab PO BID RANDELL Stop: 10/10/20 20:59 Last Admin: 09/16/20 08:59 Dose: Not Given Documented by: Simvastatin (Simvastatin 40 Mg Tab) 40 mg PO HS [facility] Stop: 10/12/20 21:59 Last Admin: 09/15/20 20:50 Dose: 40 mg Documented by: Tamsulosin HCl (Tamsulosin Hcl 0.4 Mg Cap) 0.4 mg PO HS [facility] Stop: 10/12/20 21:59 Last Admin: 09/15/20 20:51 Dose: 0.4 mg Documented by: Vitamin D (Cholecalciferol 1,000 Units 25 Mcg Tab) 1,000 units PO QAM RANDELL Stop: 10/13/20 08:59 Last Admin: 09/16/20 08:58 Dose: 1,000 units Documented by: Resident Activity Tracking Resident Involvement: Resident Care Provided Care Provided: Adult Hospital Medicine (1) DVT (deep venous thrombosis) Affected thrombotic vein of extremity: unspecified vein of extremity Chronicity: unspecified DVT location: lower extremity Laterality: unspecified laterality Qualified Code(s): I82.409 - Acute embolism and thrombosis of unspecified deep veins of unspecified lower extremity (2) Hypertension Hypertension type: essential hypertension Qualified Code(s): I10 - Essential (primary) hypertension
[2020-09-16 08:38] LABS: Hematocrit (blood only) 27.8 % (42-52); Mean Corpuscular Hemoglobin 29.2 pg (25-34); Mean Corpuscular Hgb Conc 32.4 g/dL (32-36); Mean Corpuscular Volume 90.3 fL (80-100); Mean Platelet Volume 9.4 fL (7.4-10.4); Platelet Count 325 K/uL (130-400); RDW Coefficient of Variation 15.4 % (11.5-14.5); Red Blood Count 3.08 M/uL (4.7-6.1); White Blood Count 3.95 K/uL (4.8-10.8)
[2020-09-16 08:48] LABS: INR 1.3 (0.9-1.1)
[2020-09-16 08:57] LABS: Basophils # (auto) 0.01 K/uL (0-0.2); Basophils % (auto) 0.3 %; Eosinophils # (auto) 0.03 K/uL (0-0.5); Eosinophils % (auto) 0.8 %; Immature Granulocytes # (auto) 0.24 K/uL (0.00-0.02); Immature Granulocytes % (auto) 6.1 %; Lymphocytes # (auto) 0.78 K/uL (1.2-3.4); Lymphocytes % (auto) 19.7 %; Monocytes # (auto) 0.03 K/uL (0.11-0.59); Monocytes % (auto) 0.8 %; Neutrophils # (auto) 2.86 K/uL (1.4-6.5); Neutrophils % (auto) 72.3 %; Toxic Granulation 1+
[2020-09-16] MEDS: DULoxetine HCL 20 MG CAP PO SCH (08:58)
[2020-09-16] MEDS: MULTIVITAMIN TAB PO SCH (08:58)
[2020-09-16] MEDS: CHOLECALCIFEROL 1,000 UNITS 25 MCG TAB PO SCH (08:58)
[2020-09-16] MEDS: predniSONE 5 MG TAB PO SCH (08:58)
[2020-09-16] MEDS: MAGNESIUM OXIDE 400 MG TAB PO SCH ×3 (08:58→20:14)
[2020-09-16] MEDS: POT PHOSPHATE MONOBASIC W/ SOD TAB PO SCH ×3 (08:58→20:14)
[2020-09-16] MEDS: cefTRIAXone SODIUM 2,000 MG in DEXTROSE 5% 50 ML IV SCH (08:58)
[2020-09-16] MEDS: ACETAMINOPHEN 325 MG TAB PO SCH ×3 (08:58→20:13)
[2020-09-16] MEDS: PANTOprazole 40 MG TAB PO SCH (08:58)
[2020-09-16] MEDS: MYCOPHENOLATE MOFETIL 250 MG CAP PO SCH ×2 (08:58→20:15)
[2020-09-16] MEDS: cycloSPORINE 100 MG CAP PO SCH ×2 (08:58→20:15)
[2020-09-16] MEDS: LOSARTAN POTASSIUM 50 MG TAB PO SCH (08:58)
[2020-09-16] MEDS: DOCUSATE SODIUM/SENNA 50/8.6MG TAB PO SCH ×2 (08:59→20:13)
[2020-09-16 09:07] LABS: BUN Creatinine Ratio 18.8 (10-20); Calcium 8.5 mg/dl (8.5-10.1); Creatinine Clr Calc Pharmacy 66.7 ml/min; Est GFR (Non-African American) 43.2
--- NOTE | 2020-09-16 09:57 | Nephrology Progress Note ---
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 Prado appears to be doing somewhat better today. He still seems somewhat lethargic. However, he is far more alert than the last time that I saw him and that he was reported to be over the weekend. I would agree that it seems as if his altered mental status is related to the use of analgesics for his pain from his rectal sheath hematoma. Certainly the size of the hematoma is consistent with the degree of intravascular blood loss and anemia that he has had. Nonetheless, his hemoglobin is now stable and he says that his pain does not seem to be quite as bad. His renal function has improved significantly with hydration. His serum creatinine is now 1.7 even while receiving losartan. He does have focal segmental glomerulosclerosis present in his transplanted kidney with significant proteinuria. That disorder was likely the source of his end- stage renal disease. He was never had a kidney biopsy done upon his presentation with advanced renal insufficiency. For now, his serum creatinine has fallen back to its baseline, or perhaps even better, his hemoglobin is stable and his mental status seems to have improved. Given his improvement, I have no additional recommendations at this time other than to continue monitoring of his hemoglobin and renal function. As soon as we are confident in the fact that he is no longer bleeding, I think we could consider resuming anticoagulation. At least initially, I would do this with warfarin. At a later time we can consider a switch to one of the newer oral anticoagulation medications. (4) Encephalopathy: (5) Rectus sheath hematoma: Admission and Anticipated Discharge Date Admission Date: September 10, 2020 Subjective Mr. Prado seems to be doing better this morning. He is awake but seemingly a bit lethargic. Nonetheless he is oriented in 3 spheres and is capable of carrying on somewhat of a conversation. He does not seem spontaneous, however. He admits that he is quite fatigued. He has not been sleeping well during the past few days. He has had significant pain and has been getting hydromorphone. However, he says that he has not had any at least for several hours. He said that his pain is present but does not seem to be as severe as it had been. He has no other complaints. Hospitalist staff has noted that during the day his mental status tends to come and go related to doses of hydromorphone. He has no symptoms or indication of uremia or volume overload. He has no symptoms of rejection. His only indication of infection is mild hypoxemia and he does admit to some dyspnea with any type of activity. He denies having any significant cough, productive or otherwise. Physical Exam Physical Exam: On physical examination, appears a somewhat of a lethargic and chronically ill gentleman of about his stated age of 60. Nonetheless, he seems to be oriented in 3 spheres his blood pressure this morning is 169/92 with a pulse of 74 and regular. Respiratory rate is 18 with an oxygen saturation of 92% on room air. He is afebrile (36.7. His skin shows normal skin turgor. He has a few scattered ecchymoses. There is no rash or infiltrative skin disease. He has scars from prior surgical procedures on his left forearm from the creation of an AV fistula as well as the right lower quadrant from his kidney transplant. He has a large scar on the back of his left calf from the resection of a malignant melanoma. He has significant changes of chronic venous stasis dermatitis on his distal lower extremities. He has no palpable lymphadenopathy. His head is grossly normal. Eyes are grossly normal. The ocular fundi were not examined. Extraocular movements are intact. Pupils are mid position and reactive to light. Ears, nose, mouth and throat are unremarkable. His oral mucous membranes are moist. His neck is supple. There is no jugular venous distention although the exam is limited by his body habitus. He has no carotid bruit. There is no thyromegaly. His chest is clear to auscultation. Cardiac exam shows a regular rhythm. S1 and S2 were normal. There is a very soft systolic murmur at the base and upper left sternal border radiating toward the neck. Results & Data ([facility]) Vital Signs (Past 12 Hours) Vital Signs Temp Pulse Resp BP Pulse Ox 09/16/20 07:31 36.7 C 74 18 169/92 H 92 09/15/20 22:45 36.6 C 77 22 149/85 H 92 Laboratory Results Laboratory Results - last 24 hr 09/13/20 09/16/20 09/16/20 10:42 08:26 08:26 WBC 3.95 L RBC 3.08 L Hgb 9.0 L Hct 27.8 L MCV 90.3 MCH 29.2 MCHC 32.4 RDW Std Deviation 50.0 H RDW Coeff of Theresa 15.4 H Plt Count 325 MPV 9.4 Immature Gran % (Auto) 6.1 Neut % (Auto) 72.3 Lymph % (Auto) 19.7 [place] % (Auto) 0.8 Eos % (Auto) 0.8 Baso % (Auto) 0.3 Neut # (Auto) 2.86 Lymph # (Auto) 0.78 L [place] # (Auto) 0.03 L Eos # (Auto) 0.03 Baso # (Auto) 0.01 Immature Gran # (Auto) 0.24 H Toxic Granulation 1+ PT 13.0 H INR 1.3 H Sodium Potassium Chloride Carbon Dioxide Anion Gap BUN Creatinine Est Cr Clr Drug Dosing Est GFR ( Amer) Est GFR (Non-Af Amer) BUN/Creatinine Ratio Glucose Calcium Gabapentin 10.4 09/16/20 08:26 WBC RBC Hgb Hct MCV MCH MCHC RDW Std Deviation RDW Coeff of Theresa Plt Count MPV Immature Gran % (Auto) Neut % (Auto) Lymph % (Auto) [place] % (Auto) Eos % (Auto) Baso % (Auto) Neut # (Auto) Lymph # (Auto) [place] # (Auto) Eos # (Auto) Baso # (Auto) Immature Gran # (Auto) Toxic Granulation PT INR Sodium 142 Potassium 4.0 Chloride 109 H Carbon Dioxide 24 Anion Gap 9.0 BUN 32 H Creatinine 1.70 H Est Cr Clr Drug Dosing 66.7 Est GFR ( Amer) 50.0 Est GFR (Non-Af Amer) 43.2 BUN/Creatinine Ratio 18.8 Glucose 86 Calcium 8.5 Gabapentin PG Care Time/CCT Total # of Minutes Spent Total Time Spent with Patient: Total time spent is greater than 50% in coordination of care (as documented) at patient's floor/unit and/or counseling patient: Coding Level of Care Code 61176 Subseq Hosp Care Lvl 3 Diagnoses Renal transplant recipient Z94.0 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
[2020-09-16] MEDS ORDERED: WARFARIN SOD 10 MG TAB PO SCH (17:00)
[2020-09-16] MEDS: SIMVASTATIN 40 MG TAB PO SCH (20:14)
[2020-09-16] MEDS: TAMSULOSIN HCL 0.4 MG CAP PO SCH (20:15)
--- NOTE | 2020-09-17 07:34 | Discharge Summary ---
Date of Service September 17, 2020 Admission HPI Per Admitting Provider The patient is a 60-year-old male with a past medical history including chronic renal sufficiency, renal transplant patient, history malignant melanoma of skin, gout, neuropathy, hypertension, hypercholesterolemia, obesity, GERD, sarcoidosis, venous insufficiency, polyarthritis, FARNAZ, chronic anticoagulation, depression, chronic immunosuppressed state due to medications and DVT. He was found to be COVID-19 positive on 08/19/2020 during routine preop testing for hernia repair. He later became symptomatic, requiring admission from 08/28- 08/30/2020. His reports that he had been feeling somewhat better, however, he did develop a urinary tract infection in the interim, he was placed on Keflex for that treatment. Over the past several days he has gradually become more lethargic, and had significant dyspnea on exertion with shorter and shorter walks. He did have an episode of passing out on the bed at home, which prompted his visit to the ED. In the emergency department, his hemoglobin was found to be 7.5, his INR was greater than 10.7, and PTT was 111.6. His COVID-19 testing was positive again this admission. The patient was prescribed 1 unit PRBCs by the emergency department, and hemoglobin will be rechecked upon admission. Of note, he had no change in bowel function. Admission Exam Per Admitting Provider The patient is awake, alert and oriented 3, mildly lethargic, normocephalic and atraumatic, lying in bed and in no acute distress. HEENT--PERRL, EOMI, mucous membranes and oropharynx dry. Neck--supple. No JVD. No bruits. Thyroid normal, trachea midline, no adenopathy. Heart--normal S1 and S2. No murmurs, rubs or gallops. Lungs--clear bilaterally, no respiratory distress, no accessory muscle use. Abdomen--normal bowel sounds and soft. Nontender. Nondistended, morbidly obese Extremities--no cyanosis or clubbing. No edema. Dermatologic--normal skin turgor, normal color, no abnormal lymph nodes, no rash. Neurologic--cranial nerves II through XII grossly intact. Rheumatologic--limited exam Psychiatric--normal affect. Principal Diagnosis Rectus sheath hematoma secondary to supratherapeutic INR complicated by history of renal transplant and encephalopathy Discharge Exam General: No acute distress HEENT: Normocephalic atraumatic Neck: No significant lymphadenopathy, trachea midline, normal to visual inspection Cardiac: Regular rate and rhythm, normal S1, normal S2, I did not appreciated any significant murmurs rubs or gallops, 2+ pedal edema, No calf tenderness, capillary refill is less than 3 seconds Respiratory: Clear to auscultation bilaterally with symmetrical chest rise, I did not appreciate any significant wheezes, rales, rhonchi, no increased work of breathing GI: Normal bowel sounds, soft, nontender in all 4 quadrants, nondistended, left lower quadrant pain that correlates with CT site of the hematoma Neuro: Alert and oriented x4 Psych: Calm, cooperative, logical thought process Discharge Data Allergies Allergy/AdvReac Type Severity Reaction Status Date / Time allopurinol Allergy Unknown Rash Verified 09/10/20 00:49 Penicillins Allergy Unknown Unknown Verified 09/10/20 00:49 Consultations 09/10/20 03:08 ED Decision to Admit Stat 09/11/20 08:32 Consult Nephrology Routine Ordered Studies 09/10/20 00:30 CT abd pelvis wo con Urgent CT head/brain wo con Urgent 09/14/20 09:43 CT abd pelvis wo con Urgent Hospital Course (1) Encephalopathy: #Encephalopathy Appears to be multifactorial metabolic encephalopathymost likely pain, poor sleep, and pain medicines all contributing. We are, having followed him multiple times through the day for multiple days, it is clear that his mental status waxes and wanesit seems to largely coincide with worsening pain, and to a lesser degree coincide with pain medicines. Patient has made considerable improvement to her weekend and intake. His primary care provider evaluated him yesterday and felt as if he was close to baseline. I spoke with the patient's yesterday evening and updated her on the patient's condition. She agreed that the patient was close to his normal mental status. On the morning of discharge the patient continued to improve and even demonstrated insight into his cognitive delays saying that they are worse in the morning. I suspect his symptoms will continue to improve as his pain improves and his need for pain medication decreases #Rectus sheath hematoma with associated symptomatic anemia 2/2 supratheraputic INE Patient presented to the hospital with a supratherapeutic INR of 10.7 and rectus sheath hematoma with acute blood loss anemia initially requiring 2 units transfusion, stemming from Coumadin coagulopathy, which in turn likely stemmed from poor p.o. intake in the face of ongoing medical adherence to his Coumadin regimen brought on by recent COVID-19 infection. On presentation had LORENZO on CKD likely related to poor forward flow from the anemia, and fortunately with transfusions this has started to show good improvement. As of 09/11 he has received Four total units of PRBCs, hemoglobin has been stable, patient is no longer symptomatic, INR has been stable, no need for further transfusion at this time. CT obtained 08/1720 demonstrated 30 cm hematoma that has decreased in size, with some extension of the inferior component. -Monitor for hematoma size expansion clinically -Resume warfarin on discharge -Follow-up INR as an outpatient, labs ordered for 3 days from now #Pain secondary to rectus sheath hematoma Throughout the hospitalization he has endorsed significant pain at the site of the hematoma. We have been struggling with a difficult balance between pain (causing delirium features when pain intense) and pain meds (causing delirium features from sedating effects of meds) -DC'd with 10 days of 5 mg oxycodone every 6 hours as needed #40 #History of DVT Chronically anticoagulated due to this. Fortunately last DVT was quite a while ago. Plan to resume anticoagulation with warfarin when the patient is more stable. Given the dietary restrictions and need for frequent lab monitoring to consider transition to Eliquis if kidney is well tolerated. -No signs or symptoms of VTE/DVT -Resume warfarin on discharge, follow-up INR ordered for 3 days #History of COVID-19 Previously had Covid. He does not appear to be symptomatic from it anymore, his PCR continues to test positive which is not surprising, does not appear to need any particular treatment or infection precautions. #Immunocompromised secondary to history of renal transplant Continue chronic immunosuppressive regimen, renal function improved #UTI Is on ceftriaxone for now. It appears he has been treated for prostatitis as an outpatient. #Hypercholesterolemia Continue simvastatin #Hypertension Chronic long history of, on Lasix and losartan as an outpatient. Initially both were held, losartan has since been resumed. -Continue losartan -Resume Lasix on discharge #Neuropathy -See above, continue gabapentin at home dosing #GERD -Famotidine 20 mg IV every 12 hours Matt Nava MD PGY 2, FCM This chart was completed utilizing dragon dictation voice recognition software. Grammatical errors, random word insertions, pronoun errors, and in complete sentences are an occasional consequence of the system. Any questions or concerns about the content, text, or information contained within the body of this dictation should be addressed directly to the physician for clarification. (2) Rectus sheath hematoma: (3) Symptomatic anemia: (4) Supratherapeutic INR: (5) COVID-19: (6) Renal transplant recipient: (7) Hypercholesteremia: (8) Hypertension: (9) Neuropathy: (10) GERD (gastroesophageal reflux disease): (11) Immunocompromised: (12) UTI (urinary tract infection): (13) DVT (deep venous thrombosis): (14) Discharge planning issues: Total Time Total Time Spent Total Time Spent (In Minutes): 57 Discharge Plan Discharge Items Patient Disposition: Home - Self-Care Reason For Visit: SYMPTOMATIC ANEMIA, SUPRATHERAPEUTIC INR, PROSTATI Discharge Diagnosis: Rectus sheath hematoma secondary to supratherapeutic INR complicated by history of renal transplant and encephalopathy Activity: Resume your previous activity Non-emergency contact: Primary Care Provider Call non-emergency contact if: you have any medication questions, your pain is worsening and your temperature is above 101 Follow-up/Referrals: Davion Pablo MD [Primary Care Provider] - 09/23/20 11:30 am (APPT WITH KIARA NAVA PA-C) Diet: Dialysis Renal Ambulatory Orders: Prothrombin Time INR (Routine) Timeframe: 3 Days Location: Determined by Patient Ordered By: Matt Berry Attending Provider Instructions: Care instructions: You were admitted to [facility] for treatment of abdominal hematoma (collection of blood under your skin) that was due to an elevation in your INR. INR is a measurement of the coagability (the ability for your blood to clot) when the number is too high and easier blood does not. Ideally we shoot for a goal range between 2-3. On admission to the hospital your INR was 10. We think this was due to poor nutrition while taking your Coumadin. It is important for you to discuss nutritional requirements while taking Coumadin with your primary care provider on discharge. When you arrive to the hospital we rev ersed your warfarin therapy and stopped the bleeding. You were monitored in the hospital due to the exceptional pain associated with your hematoma. Throughout your admission we worked on a pain regimen to control your symptoms. Unfortunately you also experienced some altered mental status which we believe was secondary to the amount of pain medication you are receiving. By discharge we are able to titrate your pain medication see you were no longer confused, your symptoms were controlled. On the day of discharge we resume your warfarin, given that this medication was previously reversed it should take about a week for your INR to reach the therapeutic range of 2-3. We recommend close follow- up with your primary care provider on discharge, and discussion regarding transition to a DOAC for anticoagulation. While hospitalized initially held both your losartan and Lasix due to worsening of your kidney function. Throughout the hospitalization your kidney function improved and we resumed her losartan. On discharge we resume your lasix. A discharge summary will be sent to your primary care physician to ensure continuity of care. Please bring this discharge summary with you to your next office appointment so that your provider can review it at that time. Follow-up appointments: - Keep all your follow-up appointments as already scheduled. If you cannot make an appointment, notify your provider. - Please call to request a follow-up appointment with your primary care physician within one week of discharge. Please let us know if you are unable to obtain an appointment Follow-up labs: - Please go to a lab nearest you and obtain the requested lab work. Please have this completed at least 3 hours before your doctor's appointment (or the day before your appointment if possible). Medications: - Your medication list has been reviewed and reconciled upon discharge to ensure accuracy and continuity of care. - You are provided with a list of all your current medications at this time. Please review this list closely and make note of any changes. - Please take all of your medications exactly as prescribed. - Tell your primary care provider if you cannot afford your medications. - Call your primary care provider if you are having any side effects or any other problems. - Call your primary care provider before taking any over the counter medications or supplements, including herbals and vitamins, because some of these may interact with your current medications and/or make your symptoms worse. Symptoms: Please call your primary care provider for symptoms including, but not limited to: fevers (temperatures greater than 100.4), chills, intractable nausea or vomi ting, diarrhea, rash, shortness of breath, bleeding, pain, or if you experience any worsening of the symptoms that brought you to the hospital. For EMERGENCY and VERY SERIOUS health-related issues, such as chest pain, shortness of breath, or sudden onset of the symptoms that brought you to the hospital, you may need to call 911 or go directly to the Emergency Room It has been our privilege to take care of you during your hospital stay. And Above All Else Feel Better! Best Wishes, Matt Nava MD PGY2 Resident, Family & Community Medicine [facility] Residency at [facility] - [address], [address] MC: [place] [address] Pending Studies at Discharge: No Stand-Alone Forms: My [facility], Smoking Cessation Medications and DC Order Prescriptions: New oxycodone 5 mg Tablet 5 mg PO Q6H PRN (Reason: pain) 10 Days Qty: 40 RF: 0 Continued furosemide [Lasix] 40 mg tablet 60 mg PO QAM Qty: 120 RF: 3 omeprazole 40 mg capsule,delayed release(DR/EC) 40 mg PO QAM Qty: 90 RF: 3 simvastatin 40 mg tablet 40 mg PO HS Qty: 90 RF: 3 duloxetine 20 mg capsule,delayed release(DR/EC) 20 mg PO QAM Qty: 90 RF: 3 tramadol 50 mg tablet 50 mg PO Q8H PRN (Reason: pain) Qty: 20 RF: 0 mycophenolate mofetil [CellCept] 250 mg capsule 1,000 mg PO BID RF: 0 febuxostat [Uloric] 80 mg tablet 80 mg PO QAM RF: 0 aspirin [Adult Low Dose Aspirin] 81 mg tablet,delayed release (DR/EC) 81 mg PO QAM RF: 0 tamsulosin [Flomax] 0.4 mg capsule 0.4 mg PO HS RF: 0 docusate sodium [Colace] 100 mg capsule 100 mg PO BID PRN (Reason: Constipation) RF: 0 multivitamin [Daily Multi-Vitamin] tablet 1 tab PO QAM RF: 0 cholecalciferol (vitamin D3) 1,000 unit capsule 1,000 units PO QAM RF: 0 prednisone 5 mg tablet 5 mg PO QAM RF: 0 N-Yajt-Ucjuwxp 250 mg tablet 2 tab PO TID RF: 0 magnesium oxide 400 mg magnesium capsule 800 mg PO TID RF: 0 cyclosporine 100 mg capsule 200 mg PO BID RF: 0 gabapentin [Neurontin] 300 mg capsule 900 mg PO HS Qty: 270 RF: 3 losartan 100 mg tablet 100 mg PO QAM RF: 0 gabapentin [Neurontin] 300 mg capsule 600 mg PO BID RF: 0 warfarin 5 mg tablet 5 mg PO UD RF: 0 Discontinued cephalexin 500 mg capsule 500 mg PO BID 20 Days Qty: 40 RF: 0 Discharge Orders: Discharge Order (Routine); Ordered 09/17/20 Ordered By: Matt Nava Admission Data Admit Date/Time: 09/10/20 04:55 Attending Provider: Gian Weaver Admit Provider: Yovani Pizarro Primary Care Provider: Davion Pablo Other Providers: Guevara Valdez ; Yovani Pizarro ; Caro Duarte Other Interventions: Discharge Summary Assessment (RN) Last Done: 09/17/20 14:44 Supervising Physician Co-Signing Physician Notes Attending attestation Pt seen and examined in concert with Dr. Nava. In agreement with the documented findings as noted in the resident documentation with any exceptions or additions as noted here. Pt resting comfortably in bed, considerably improved mental acuity and interaction throughout the day, good context and future awareness. Pain well controlled at present. AAOx3, S1/S2 nl RRR 2/6 JULY. CTAB. Abd Mild RLQ TTP, chronically BS+ve Encephalopathy - approaching baseline, pain controlled at present with PO regimen. Safe for home, notified family re: support Rectus sheath hematoma w/ symptomatic anemia s/p txf - pain control improved w/ current medication. hgb stable s/p txf. Supratherapeutic INR w/ h/o multiple DVT - improved following reversal - restarted AC with continued stability/reduction in size of hematoma and short term INR repeat for outpatient f/u Heart murmur - patient does not recall history of same, will need further evaluation in outpatient Else see resident documentation as noted. Total attending time spent on the patient's case on day of discharge including counseling, coordination and management: 35 minutes. Resident Activity Tracking Resident Involvement: Resident Care Provided Care Provided: Adult Hospital Medicine
[2020-09-17] MEDS: CHOLECALCIFEROL 1,000 UNITS 25 MCG TAB PO SCH (08:29)
[2020-09-17] MEDS: GABAPENTIN 300 MG CAP PO SCH ×2 (08:29→13:35)
[2020-09-17] MEDS: POT PHOSPHATE MONOBASIC W/ SOD TAB PO SCH ×2 (08:29→13:35)
[2020-09-17] MEDS: predniSONE 5 MG TAB PO SCH (08:29)
[2020-09-17] MEDS: PANTOprazole 40 MG TAB PO SCH (08:29)
[2020-09-17] MEDS: MULTIVITAMIN TAB PO SCH (08:29)
[2020-09-17] MEDS: DULoxetine HCL 20 MG CAP PO SCH (08:29)
[2020-09-17] MEDS: LOSARTAN POTASSIUM 50 MG TAB PO SCH (08:29)
[2020-09-17] MEDS: cycloSPORINE 100 MG CAP PO SCH (08:29)
[2020-09-17] MEDS: MYCOPHENOLATE MOFETIL 250 MG CAP PO SCH (08:29)
[2020-09-17] MEDS: MAGNESIUM OXIDE 400 MG TAB PO SCH ×2 (08:30→13:35)
[2020-09-17] MEDS: cefTRIAXone SODIUM 2,000 MG in DEXTROSE 5% 50 ML IV SCH (08:34)
[2020-09-17] MEDS: ACETAMINOPHEN 325 MG TAB PO SCH ×2 (08:34→13:35)
[2020-09-17] MEDS: DOCUSATE SODIUM/SENNA 50/8.6MG TAB PO SCH (08:35)
[2020-09-17] MEDS: ULORIC~ORDER AWAITING ACTION SCH (09:03)
--- NOTE | 2020-09-17 09:57 | Nephrology Progress Note ---
Date of Service September 17, 2020 Assessment & Plan (1) Renal transplant recipient: (2) Acute on chronic renal insufficiency: Mr. Prado appears to be stable. His mental status is improved but not quite back to baseline. He says that he is not having nearly as much pain. His laboratory work has remained stable. Apparently, there is consideration for him going home. His only complaint today is dyspnea with exertion. I think it might be prudent to check another chest x-ray today to make sure that he is not evolving any signs of pulmonary vascular congestion or pulmonary edema superimposed on the inflammatory changes that were likely related to his Covid. If discharged today or tomorrow, we should see him in the office either on September 20 or September 23. I discussed this with the patient. I will check on his discharge status later and make sure that we contact him for the appointment if we do not hear from him. No other recommended changes at the current time. Once stable, we can resume his usual dose of mycophenolate mofetil. 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 Prado says that he is feeling a bit better. However, he continues to be somewhat short of breath. He says that walking to the bathroom and back will often make him winded. He denies having a cough. He denies having any chest pain. He has no PND or orthopnea. He also says that his abdominal pain is now "an annoyance." He is taking oral analgesics for it. Apparently, his mental status has been better over the past 24 hours. There is consideration of having him be discharged within the next 24 hours or so. He has no symptoms of infection, rejection, volume overload or uremia. He says that his urine output is reasonably good. He has no lower urinary tract symptoms or complaints. His review of systems is essentially unremarkable except for the problems noted above. He denies having a headache. He says that he is sleeping better and he seems to be eating a bit better. Physical Exam Physical Exam: On physical examination, Mr. Turner appears a somewhat of a chronically ill and still somewhat uncomfortable gentleman of about his stated age of 60. He was lying quietly in bed. He did seem to get a bit dyspneic during our conversation. He did not seem confused. He was oriented in 3 spheres. His blood pressure this morning is 173/97. His pulse is 92 and regular with no extrasystoles noted. His respiratory rate is 18 with an oxygen saturation of 93% on room air. He is afebrile (37.0 C). His skin shows a slightly sallow complexion. He does not appear to be particularly pale. His skin turgor is normal. He has scars from prior surgeries including a scar on his left forearm from the creation of his AV fistula. There is a right lower quadrant scar from his kidney transplant and a large scar on the back of his left calf from the resection of a malignant melanoma. He has multiple scattered ecchymoses. He has obvious venous stasis changes on his distal lower extremities. There is no palpable lymphadenopathy. His head is grossly normal. Eyes are grossly normal. The ocular fundi were not examined. There is no conjunctival icterus. Ears, nose, mouth and throat are all unremarkable. His oral mucous membranes are moist. His neck is supple. He has no jugular venous distention although the exam is limited by his body habitus. I hear no carotid bruits. He has no thyromegaly. His chest is clear to auscultation. Cardiac exam shows a regular rhythm. S1 and S2 are normal. He has a grade 2/6 systolic murmur heard at the base and upper left sternal border and radiating toward the neck. His abdomen is obese. He has some mild to moderate tenderness in the left side of his abdomen. The hematoma does not seem to be quite as large and it certainly seems to be a bit less tender than it had been. He has an umbilical hernia. Bowel sounds are present. I hear no abdominal bruits. Extremities show no cyanosis or clubbing. He has 1+ lower extremity pitting edema. His neurologic exam shows him to have minimally slurred speech and he is a bit lethargic but better than he has been. He has no lateralizing neurologic changes. Results & Data ([facility]) Vital Signs (Past 12 Hours) Vital Signs No laboratory work is back from today. His gabapentin blood level is in the upper therapeutic range. 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
--- NOTE | 2020-09-17 10:51 | XRay Report ---
XR chest 2V PA/lateral CLINICAL HISTORY: Dyspnea on exertion. History of Covid 19 pneumonia COMPARISON STUDY: 09/10/2020 FINDINGS: The heart remains enlarged. There are persistent multifocal bilateral pulmonary airspace op acities and interstitial thickening. There is no overt failure. There are no significant pleural effu sions.[ IMPRESSION: Persistent bilateral multifocal airspace opacities and interstitial thickening. ACT 112: Negative or not required by law. Electronically signed by: Robert Raygoza M.D. 09/17/2020 10:49 AM
--- NOTE | 2020-09-17 13:49 | XRay Report ---
SINGLE VIEW CHEST CLINICAL HISTORY: Chest congestion. FINDINGS: An AP, portable, upright chest radiograph is compared to study performed earlier the same d ay 09/17/2020. Correlation is made with chest CT dated 11/25/2017. The examination is degraded by peter ble technique and apical lordotic positioning. The heart is enlarged noting atherosclerotic calcifica tion of the thoracic aorta. Diffuse airspace opacities are unchanged from today's earlier examination . There are calcified mediastinal and hilar lymph nodes. No large pleural effusion or pneumothorax i s seen. The skeletal structures appear osteopenic. The bony thorax is grossly intact. Degenerative ch li and scoliosis is seen in the thoracic spine. IMPRESSION: 1. Diffuse airspace opacities are unchanged from today's earlier examination. Differential considerat ions include pulmonary edema and/or multifocal pneumonia and clinical correlation will be required. 2. Cardiomegaly. 3. No large pleural effusion is identified. ACT 112: Negative or not required by law. ' Electronically signed by: Mark Rivas M.D. 09/17/2020 1:48 PM
[2020-09-17] MEDS ORDERED: WARFARIN SOD 7.5 MG TAB PO SCH (16:00)
[2020-09-17] MEDS ORDERED: WARFARIN SOD 5 MG TAB PO SCH (17:00)
[2020-09-18] MEDS ORDERED: WARFARIN SOD 10 MG TAB PO SCH (16:00)
== END 2020-09-17 16:45 | disposition home or self-care (01) | DRG 813 ==
LOC: ED 23:35 → EDINP 09-10 04:55 → SUATTDRO 09-10 04:55 → EDINP 09-10 18:29 → 2S 09-10 19:12 → 3N 09-12 18:32

== ENCOUNTER 2021-04-24 10:48 | Inpatient (IN) ==
[2021-04-24 11:55] LABS: Influenza A virus by PCR Positive (Negative); Influenza B virus by PCR Negative (Negative)
[2021-04-24 11:57] LABS: Basophils # (auto) 0.03 K/uL (0-0.2); Basophils % (auto) 0.5 %; Eosinophils # (auto) 0.23 K/uL (0-0.5); Eosinophils % (auto) 3.7 %; Hematocrit (blood only) 31.7 % (42-52); Hemoglobin 9.9 g/dL (14.0-18.0); Immature Granulocytes # (auto) 0.01 K/uL (0.00-0.02); Immature Granulocytes % (auto) 0.2 %; Lymphocytes # (auto) 0.66 K/uL (1.2-3.4); Lymphocytes % (auto) 10.6 %; Mean Corpuscular Hemoglobin 30.2 pg (25-34); Mean Corpuscular Hgb Conc 31.2 g/dL (32-36); Mean Corpuscular Volume 96.6 fL (80-100); Mean Platelet Volume 10.6 fL (7.4-10.4); Monocytes # (auto) 0.31 K/uL (0.11-0.59); Platelet Count 186 K/uL (130-400); RDW Coefficient of Variation 14.5 % (11.5-14.5); RDW Standard Deviation 51.5 fL (36.4-46.3); Red Blood Count 3.28 M/uL (4.7-6.1); White Blood Count 6.24 K/uL (4.8-10.8)
[2021-04-24 12:31] LABS: Albumin Level 3.6 gm/dl (3.4-5.0); BUN Creatinine Ratio 13.9 (10-20); Calcium 8.5 mg/dl (8.5-10.1); Creatinine Clr Calc Pharmacy 27.3 ml/min; Est GFR (African American) 16.9 ml/min; Est GFR (Non-African American) 14.6 ml/min; Potassium 4.8 mmol/L (3.5-5.1)
[2021-04-24 12:34] LABS: Albumin Globulin Ratio 1.2 (0.9-2); Bilirubin,Total 0.8 mg/dl (0.2-1); Globulin 3.1 gm/dl (2.5-4.0); Total Protein 6.7 gm/dl (6.4-8.2)
[2021-04-24] MEDS ORDERED: SODIUM CHLORIDE 0.9% 1000ML 1,000 ML IV ONE (13:19)
--- NOTE | 2021-04-24 13:29 | Emergency Department Note ---
Impression & Plan LORENZO (acute kidney injury), Renal transplant recipient, Influenza A, Anemia ED Provider Note NAME: NAN MONTE AGE: 60 SEX: M : 1960 ARRIVES VIA: Walk-In INFORMANT: Patient ED PROVIDER(S): Anibal Cason DO CHIEF COMPLAINT: cough HPI: Patient is a 60-year-old male that presents to the ER for upper respiratory symptoms which started this morning. Patient notes that he woke up this morning and he started having diffuse myalgias and arthralgias. He feels very weak. He has a cough. No chest pain or shortness of breath. He has a history of kidney transplant 2 years ago takes CellCept, prednisone as well as mycophenolate. He has not missed any doses recently with the exception of today. He has not been eating and drinking as much as usual. He has been having fevers. He is also concerned as he was having bleeding from his tooth and on his right arm both of which have stopped. ROS: See above HPI for pertinent positives & negatives. A total of 10 systems reviewed and were otherwise negative. PAST MEDICAL HISTORY:See Below PAST SURGICAL HISTORY:See Below FAMILY HISTORY:See Below SOCIAL HISTORY:See Below HOME MEDICATIONS:See Below ALLERGIES:See Below VITALS:See Below PHYSICAL EXAMINATION: GENERAL: Sitting up in bed, alert, well appearing, well nourished, shaking chills with cough EYE EXAM: normal conjunctiva. PERRL and EOM's grossly intact. OROPHARYNX: no exudate, right lower jaw with an extraction no active bleeding. Dried blood in the socket. NECK: supple, no nuchal rigidity, no adenopathy, non-tender LUNGS: Clear to auscultation. Normal chest wall mechanics HEART: no murmurs, S1 normal and S2 normal ABDOMEN: abdomen soft, non-tender, normo-active bowel sounds, no masses, no rebound or guarding. UPPER EXTREMITIES: upper extremities are grossly normal. LOWER EXTREMITIES: No pitting edema. NEURO EXAM: Normal sensorium, cranial nerves II-XII grossly intact, normal speech, no gross weakness of arms, no gross weakness of legs. MEDICAL DECISION MAKING: Patient is a 60-year-old male who presents to the ER for above-stated complaint. IV established and blood work was obtained. Labs show no significant leukocytosis and mild anemia at 9.9. This consistent with previous at just about 10. BMP with a creatinine of 4.2 up from a baseline of 3.2. LFTs, bilirubin, was unremarkable. He is flu positive. He also admits to bleeding tooth which was operated on 2 weeks ago. He is concerned that he may have an elevated INR but this came back at 3. Chest x-ray with only a likely chronic reticular nodule. Patient was given IV fluids. No tenderness over the renal transplant in the right lower quadrant. He was discussed with Dr. Davion Dominguez for further evaluation. Triage Nursing notes reviewed. Limited review of prior medical records performed Vital Signs: reviewed and remarkable for no significant abnormalities Differential diagnosis: Differential diagnosis includes etiologies such as ectopic , dysfunction uterine bleeding, bleeding dyscrasia, trauma, infection, as well as others were entertained. ER treatment provided: See below Diagnostics interpreted by me: ECG: none Cardiac Monitoring: An order was placed for continuous cardiac monitoring. The monitor shows a rate of 92 with sinus rhythm. Laboratory studies: As stated above and show below. Imaging studies: Portable AP upright 1 view the chest shows no focal infiltrate or pneumothorax Consultation(s): Discussed with Dr. Davion Dominguez for further evaluation Procedures: none Critical Care: None Past Med/Surg History Medical History AV fistula LEFT WRIST> NO DIALYSIS CURRENTLY> [facility]A STILL WORKS PER PT BPH (benign prostatic hyperplasia) COVID-19 COVID-19 virus infection Dehydration DVT (deep venous thrombosis) Right- 04/2019 following transplant > Coumadin S/P LEFT LEG SURGERY (EXCISION OF MELANOMA LEFT LEG) 10 YEARS AGO. End stage renal disease follows Dr. Aguilera and transplant team at [facility] Family history of blood clots GERD (gastroesophageal reflux disease) Gout History of basal cell carcinoma History of malignant melanoma of skin Hyperlipidemia Hypertension Nephrolithiasis Pneumonia due to COVID-19 virus Renal transplant recipient Sarcoidosis Sleep apnea CPAP Surgical History H/O colonoscopy History of cardiac cath 01/2018 > [facility] > NO STENTS History of melanoma excision left calf History of tonsillectomy History of tooth extraction Kidney transplanted APR 04, 2019 > [facility] > right side Family History Mother Stroke Heart disease Grandmother Cancer Other Lung disease Social History Smoking Status: Never smoker Second Hand Exposure: No; Hx Alcohol Use: No Hx Substance Use: No Preferred Language: Croatian Communication Ability: Effective Tool Pusher Required: No Beliefs That Will Affect Care: None marital status: Current Living Situation: Spouse Current Living Situation Comment: sister and son as well current occupational status: employed current occupation: [employer] How many Children do You have: 1 Feels Safe at Home: Yes Assistive Devices: Glasses Allergies Allergies Allergy/AdvReac Type Severity Reaction Status Date / Time allopurinol Allergy Unknown Rash Verified 04/24/21 14:17 Penicillins Allergy Unknown Unknown Verified 04/24/21 14:17 hydromorphone [From Dilaudid] AdvReac Severe confusion Verified 04/24/21 14:17 Home Meds Home Medications Medication Instructions Recorded Confirmed aspirin 81 mg tablet,delayed 81 mg PO QAM 04/24/19 04/24/21 release (Adult Low Dose Aspirin) cholecalciferol (vitamin D3) 25 1,000 units PO QAM 04/24/19 04/24/21 mcg (1,000 unit) capsule docusate sodium 100 mg capsule 100 mg PO BID PRN 04/24/19 04/24/21 (Colace) multivitamin (Daily Multi-Vitamin) 1 tab PO QAM 04/24/19 04/24/21 tamsulosin 0.4 mg capsule (Flomax) 0.4 mg PO HS 04/24/19 04/24/21 prednisone 5 mg tablet 5 mg PO QAM tab 05/29/19 04/24/21 sodium di- and 2 tab PO TID tab 05/29/19 04/24/21 monophosphate-potassium phos monobasic 250 mg tablet (O-Ogyk-Rzwgfle) magnesium oxide 800 mg PO TID cap 01/11/20 04/24/21 mycophenolate mofetil 250 mg 1,000 mg PO BID cap 02/20/20 04/24/21 capsule (CellCept) febuxostat 80 mg tablet (Uloric) 80 mg PO QAM 03/06/20 04/24/21 cyclosporine 100 mg capsule 100 mg PO BID cap 03/19/20 04/24/21 gabapentin 300 mg capsule 600 mg PO BID 08/17/20 04/24/21 (Neurontin) warfarin 5 mg tablet 5 mg PO UD 09/02/20 04/24/21 vitamin B complex (B 1 tab PO BID 01/14/21 04/24/21 Complex-Vitamin B12) Previous Rx's Medication Instructions Recorded furosemide 40 mg tablet (Lasix) 60 mg PO QAM #120 tab 05/09/20 omeprazole 40 mg capsule,delayed 40 mg PO QAM #90 cap 05/09/20 release gabapentin 300 mg capsule 900 mg PO HS #270 cap 06/14/20 (Neurontin) simvastatin 40 mg tablet 40 mg PO HS #90 tab 06/17/20 losartan 100 mg tablet 100 mg PO QAM #90 tab 11/04/20 duloxetine 40 mg capsule,delayed 40 mg PO QAM #90 cap 03/07/21 release albuterol sulfate 90 mcg/actuation 2 inha INH Q6H PRN #1 inhaler 04/06/21 aerosol inhaler Results & Data (ED) Vital Signs Vital Signs - 24 hr 04/24/21 11:17 04/24/21 14:09 Temperature 37.3 C Temperature Source Oral Pulse Rate 95 H Pulse Rate [Finger] 82 Respiratory Rate 20 16 Respiratory Effort / Characteristics Non-Labored Spontaneous Respiratory Depth Normal Respiratory Pattern Regular Blood Pressure 174/82 H Blood Pressure [Right Arm] 134/90 Blood Pressure Mean 112 Blood Pressure Mean [Right Arm] 104 Pulse Oximetry 94 96 Oxygen Delivery Method Room Air Room Air Sepsis Recent Fever Within 48 Hours Yes Sepsis New/Unexplained Change in Mental Status N/A Sepsis Action Taken by Nursing No Action Required Laboratory Data Result diagrams: 04/24/21 11:30 04/24/21 11:30 Lab Results 04/24/21 04/24/21 04/24/21 Range/Units 11:30 11:30 11:30 WBC 6.24 (4.8-10.8) K/uL RBC 3.28 L (4.7-6.1) M/uL Hgb 9.9 L (14.0-18.0) g/dL Hct 31.7 L (42-52) % MCV 96.6 (80-100) fL MCH 30.2 (25-34) pg MCHC 31.2 L (32-36) g/dL RDW Std Deviation 51.5 H (36.4-46.3) fL RDW Coeff of Theresa 14.5 (11.5-14.5) % Plt Count 186 (130-400) K/uL MPV 10.6 H (7.4-10.4) fL Immature Gran % (Auto) 0.2 % Neut % (Auto) 80.0 % Lymph % (Auto) 10.6 % [place] % (Auto) 5.0 % Eos % (Auto) 3.7 % Baso % (Auto) 0.5 % Neut # (Auto) 5.00 (1.4-6.5) K/uL Lymph # (Auto) 0.66 L (1.2-3.4) K/uL [place] # (Auto) 0.31 (0.11-0.59) K/uL Eos # (Auto) 0.23 (0-0.5) K/uL Baso # (Auto) 0.03 (0-0.2) K/uL Immature Gran # (Auto) 0.01 (0.00-0.02) K/uL PT (9.0-12.0) Seconds INR (0.9-1.1) Sodium 141 (136-145) mmol/L Potassium 4.8 (3.5-5.1) mmol/L Chloride 105 (98-107) mmol/L Carbon Dioxide 25 (21-32) mmol/L Anion Gap 11.0 (3-11) BUN 58 H (7-18) mg/dl Creatinine 4.18 H (0.6-1.4) mg/dl Est Cr Clr Drug Dosing 27.3 ml/min Est GFR ( Amer) 16.9 ml/min Est GFR (Non-Af Amer) 14.6 ml/min BUN/Creatinine Ratio 13.9 (10-20) Glucose 94 (70-99) mg/dl Calcium 8.5 (8.5-10.1) mg/dl Total Bilirubin 0.8 (0.2-1) mg/dl AST 32 (15-37) U/L ALT 42 (12-78) U/L Alkaline Phosphatase 91 (45-117) U/L Total Protein 6.7 (6.4-8.2) gm/dl Albumin 3.6 (3.4-5.0) gm/dl Globulin 3.1 (2.5-4.0) gm/dl Albumin/Globulin Ratio 1.2 (0.9-2) SARS-CoV-2 (PCR) NEGATIVE (Negative) Influ A Molecular Assay (Negative) Influ B Molecular Assay (Negative) 04/24/21 04/24/21 Range/Units 11:30 13:51 WBC (4.8-10.8) K/uL RBC (4.7-6.1) M/uL Hgb (14.0-18.0) g/dL Hct (42-52) % MCV (80-100) fL MCH (25-34) pg MCHC (32-36) g/dL RDW Std Deviation (36.4-46.3) fL RDW Coeff of Theresa (11.5-14.5) % Plt Count (130-400) K/uL MPV (7.4-10.4) fL Immature Gran % (Auto) % Neut % (Auto) % Lymph % (Auto) % [place] % (Auto) % Eos % (Auto) % Baso % (Auto) % Neut # (Auto) (1.4-6.5) K/uL Lymph # (Auto) (1.2-3.4) K/uL [place] # (Auto) (0.11-0.59) K/uL Eos # (Auto) (0-0.5) K/uL Baso # (Auto) (0-0.2) K/uL Immature Gran # (Auto) (0.00-0.02) K/uL PT 28.5 H (9.0-12.0) Seconds INR 3.1 H (0.9-1.1) Sodium (136-145) mmol/L Potassium (3.5-5.1) mmol/L Chloride (98-107) mmol/L Carbon Dioxide (21-32) mmol/L Anion Gap (3-11) BUN (7-18) mg/dl Creatinine (0.6-1.4) mg/dl Est Cr Clr Drug Dosing ml/min Est GFR ( Amer) ml/min Est GFR (Non-Af Amer) ml/min BUN/Creatinine Ratio (10-20) Glucose (70-99) mg/dl Calcium (8.5-10.1) mg/dl Total Bilirubin (0.2-1) mg/dl AST (15-37) U/L ALT (12-78) U/L Alkaline Phosphatase (45-117) U/L Total Protein (6.4-8.2) gm/dl Albumin (3.4-5.0) gm/dl Globulin (2.5-4.0) gm/dl Albumin/Globulin Ratio (0.9-2) SARS-CoV-2 (PCR) (Negative) Influ A Molecular Assay Positive A* (Negative) Influ B Molecular Assay Negative (Negative) Administered Medications Discontinued Medications Sodium Chloride (Nss 1000ml) 1,000 mls @ 999 mls/hr IV .Q1H1M ONE Stop: 04/24/21 14:19 Last Admin: 04/24/21 14:07 Dose: 999 mls/hr Documented by: [id number] Imaging Data Radiologist's Impression: Chest X-Ray 04/24/21 11:29 XR chest 1V portable CLINICAL HISTORY: Fever COMPARISON STUDY: Chest radiograph April 06, 2021. Chest CT November 17, 2017. FINDINGS: Enlargement of the cardiac silhouette is again noted. No pneumothorax or pleural effusion is noted. There is no lobar consolidation. Reticulonodular interstitial thickening is again noted. This is likely chronic. However, there may be mild superimposed mild right lung airspace opacity. Hilar prominence is unchanged. IMPRESSION: 1. Reticulonodular residual thickening which is likely chronic. However, possible superimposed mild right lung airspace opacity may reflect infectious process. 2. Stable enlargement of the cardiac silhouette. Stable bilateral hilar prominence. ACT 112: Negative or not required by law. Electronically signed by: Tray Owen M.D. 04/24/2021 1:59 PM Discharge Plan Visit Data Chief Complaint: Fever Stated Complaint: 89 FEVER/MOUTH BLEEDING FROM ORAL SURGERY ED Provider: Anibal Cason Discharge Problem: LORENZO (acute kidney injury), Renal transplant recipient, Influenza A, Anemia Forms Stand Alone Forms: [facility] Prescriptions Prescriptions: No Action furosemide [Lasix] 40 mg tablet 60 mg PO QAM Qty: 120 RF: 3 omeprazole 40 mg capsule,delayed release(DR/EC) 40 mg PO QAM Qty: 90 RF: 3 simvastatin 40 mg tablet 40 mg PO HS Qty: 90 RF: 3 losartan 100 mg tablet 100 mg PO QAM Qty: 90 RF: 3 vitamin B complex [B Complex-Vitamin B12] Tablet 1 tab PO BID RF: 0 mycophenolate mofetil [CellCept] 250 mg capsule 1,000 mg PO BID RF: 0 febuxostat [Uloric] 80 mg tablet 80 mg PO QAM RF: 0 aspirin [Adult Low Dose Aspirin] 81 mg tablet,delayed release (DR/EC) 81 mg PO QAM RF: 0 tamsulosin [Flomax] 0.4 mg capsule 0.4 mg PO HS RF: 0 docusate sodium [Colace] 100 mg capsule 100 mg PO BID PRN (Reason: Constipation) RF: 0 multivitamin [Daily Multi-Vitamin] tablet 1 tab PO QAM RF: 0 cholecalciferol (vitamin D3) 1,000 unit capsule 1,000 units PO QAM RF: 0 prednisone 5 mg tablet 5 mg PO QAM RF: 0 F-Bvms-Edwrqsw 250 mg tablet 2 tab PO TID RF: 0 magnesium oxide 400 mg magnesium capsule 800 mg PO TID RF: 0 cyclosporine 100 mg capsule 100 mg PO BID RF: 0 gabapentin [Neurontin] 300 mg capsule 900 mg PO HS Qty: 270 RF: 3 duloxetine 40 mg capsule,delayed release(DR/EC) 40 mg PO QAM Qty: 90 RF: 3 gabapentin [Neurontin] 300 mg capsule 600 mg PO BID RF: 0 warfarin 5 mg tablet 5 mg PO UD RF: 0 albuterol sulfate 90 mcg/actuation HFA aerosol inhaler 2 inha INH Q6H PRN (Reason: shortness of breath or wheezing) Qty: 1 RF: 0 Referrals Referrals: PCP,NO [Physician] - Discharge Problem: Anemia Qualifiers: Anemia type: unspecified type Qualified Code(s): D64.9 - Anemia, unspecified
--- NOTE | 2021-04-24 14:00 | XRay Report ---
XR chest 1V portable CLINICAL HISTORY: Fever COMPARISON STUDY: Chest radiograph April 06, 2021. Chest CT November 17, 2017. FINDINGS: Enlargement of the cardiac silhouette is again noted. No pneumothorax or pleural effusion i s noted. There is no lobar consolidation. Reticulonodular interstitial thickening is again noted. Thi s is likely chronic. However, there may be mild superimposed mild right lung airspace opacity. Hilar prominence is unchanged. IMPRESSION: 1. Reticulonodular residual thickening which is likely chronic. However, possible superimposed mild r ight lung airspace opacity may reflect infectious process. 2. Stable enlargement of the cardiac silhouette. Stable bilateral hilar prominence. ACT 112: Negative or not required by law. Electronically signed by: Tray Owen M.D. 04/24/2021 1:59 PM
[2021-04-24 14:13] LABS: INR 3.1 (0.9-1.1); Prothrombin Time 28.5 Seconds (9.0-12.0)
[2021-04-24] MEDS ORDERED: ACETAMINOPHEN 325 MG TAB PO STA (14:38)
[2021-04-24] MEDS ORDERED: ACETAMINOPHEN 650 MG SUPP PR STA (14:45)
--- NOTE | 2021-04-24 14:55 | History & Physical Report ---
Date of Service April 24, 2021 Assessment & Plan (1) Influenza A: Plan: Influenza A - onset of symptoms this morning - Tamiflu 30mg PO now and then daily for CRCL- 14 - Continue supportive care with LR at 80ml/hour - Tylenol for myalgias/fevers/headache (2) LORENZO (acute kidney injury): Plan: LORENZO on CKD 4-5 - RECOVERY ASSISTANT increased to 4.18 with his baseline 3.2-3.4 in the recent months - Hold diuretics at this time - Hold ARB - Renally dose Tamiflu - Follow daily BMP - Accurate JAMISON (3) Renal transplant recipient: Plan: As above - Continue cyclosporine, Cellcept, Prednisone, - Nephrology consult- appreciate assistance and following (4) Anemia: Plan: AOCD- HGB at 9.9 follow no acute needs (5) Anticoagulant long-term use: Plan: Warfarin for DVT of left lower leg history - INR 3.1 on admission - Hold tonight dose and restart tomorrow (6) Neuropathy: Plan: Continue Gabapentin (7) Hypertension: Plan: Appears well controlled - Hold ARB until renal function improves (8) Obesity: Plan: BMI 41 continue with weight loss support and optimizing medical managment for care home CVD benefit (9) Sleep apnea: Plan: CPAP 8cm H20- 2017 - continue (10) Depression: Plan: continue duloxetine 40mg PO daily - no acute issues (11) GERD (gastroesophageal reflux disease): Plan: Continue with omeprazole 40mg PO daily (12) BPH (benign prostatic hyperplasia): Plan: Continue with Tamsulosin 0.4mg PO daily History of Present Illness Primary Care Provider: Srikanth Aguilera, DO 60 YOM with past medical history of: Focal glomerular sclerosis, Renal transplant (2019), CRI, HTN, HLD, Obesity, FARNAZ, DVT in left lower leg (on C oumadin), peripheral neuropathy, COVID 09/18. Patient comes to the EMD today for complaints of joint aches, fever at home, and 2 episodes of diarrhea. The patient states he was in his normal health through the week up until last night when diarrhea started. He felt weak and tired this morning and did not want to get out of bed. He does endorse full body myalgias. He also reports not eating or drinking anything this morning or taking his morning medications. The patient did have a tooth extraction done ~1 week ago, and this was also bleeding this morning. In the EMD the patient had routine labs drawn to include COVID and Influenza testing. He also had blood cultures drawn x2 that are pending. He received 1liter of saline in the EMD and the hospitalist service was notified for admission. Patient appears tired with dry mucous membranes and complains of headache and bodyaches. Patient will be admitted for IV hydration x 1 liter LR, discussed case with Nephrology for administration of Tamiflu and will give him 30mg PO daily for CRCL 10-30. Will hold today's dose of Coumadin for INR 3.1 and resume tomorrow. Will admit to [facility] for tracking of his renal function and output as well as symptom control and management. Patient had URI symptoms back on and was placed on Azithromycin at that time by his PCP with diagnosis of bronchitis. His CXR in the EMD is noted for residual thickening- chronic- and possible superimposed mild right lung airspace opacity that may reflect inffectious process. His WBC are normal with normal NLR with no oxygen supplementation and no cough at this time, will continue with Tamiflu and follow. Allergies Allergy/AdvReac Type Severity Reaction Status Date / Time allopurinol Allergy Unknown Rash Verified 04/24/21 14:17 Penicillins Allergy Unknown Unknown Verified 04/24/21 14:17 hydromorphone [From Dilaudid] AdvReac Severe confusion Verified 04/24/21 14:17 Home Medications Medication Instructions Recorded Confirmed Type aspirin 81 mg tablet,delayed 81 mg PO QAM 04/24/19 04/24/21 History release (Adult Low Dose Aspirin) cholecalciferol (vitamin D3) 25 1,000 units PO QAM 04/24/19 04/24/21 History mcg (1,000 unit) capsule docusate sodium 100 mg capsule 100 mg PO BID PRN 04/24/19 04/24/21 History (Colace) multivitamin (Daily Multi-Vitamin) 1 tab PO QAM 04/24/19 04/24/21 History tamsulosin 0.4 mg capsule (Flomax) 0.4 mg PO HS 04/24/19 04/24/21 History prednisone 5 mg tablet 5 mg PO QAM tab 05/29/19 04/24/21 History sodium di- and 2 tab PO TID tab 05/29/19 04/24/21 History monophosphate-potassium phos monobasic 250 mg tablet (I-Dvri-Ajstyyp) magnesium oxide 800 mg PO TID cap 01/11/20 04/24/21 History mycophenolate mofetil 250 mg 1,000 mg PO BID cap 02/20/20 04/24/21 History capsule (CellCept) febuxostat 80 mg tablet (Uloric) 80 mg PO QAM 03/06/20 04/24/21 History cyclosporine 100 mg capsule 100 mg PO BID cap 03/19/20 04/24/21 History furosemide 40 mg tablet (Lasix) 60 mg PO QAM #120 tab 05/09/20 04/24/21 Rx omeprazole 40 mg capsule,delayed 40 mg PO QAM #90 cap 05/09/20 04/24/21 Rx release gabapentin 300 mg capsule 900 mg PO HS #270 cap 06/14/20 04/24/21 Rx (Neurontin) simvastatin 40 mg tablet 40 mg PO HS #90 tab 06/17/20 04/24/21 Rx gabapentin 300 mg capsule 600 mg PO BID 08/17/20 04/24/21 History (Neurontin) warfarin 5 mg tablet 5 mg PO UD 09/02/20 04/24/21 History losartan 100 mg tablet 100 mg PO QAM #90 tab 11/04/20 04/24/21 Rx vitamin B complex (B 1 tab PO BID 01/14/21 04/24/21 History Complex-Vitamin B12) duloxetine 40 mg capsule,delayed 40 mg PO QAM #90 cap 03/07/21 04/24/21 Rx release albuterol sulfate 90 mcg/actuation 2 inha INH Q6H PRN #1 inhaler 04/06/21 04/24/21 Rx aerosol inhaler oseltamivir 75 mg capsule (Tamiflu) 75 mg PO BID #5 cap 04/26/21 Rx Past Med/Surg History Medical History (Updated 04/24/21 @ 14:57 by MARTA King) AV fistula LEFT WRIST> NO DIALYSIS CURRENTLY> FISTULA STILL WORKS PER PT BPH (benign prostatic hyperplasia) COVID-19 COVID-19 virus infection Dehydration DVT (deep venous thrombosis) Right- 04/2019 following transplant > Coumadin S/P LEFT LEG SURGERY (EXCISION OF MELANOMA LEFT LEG) 10 YEARS AGO. End stage renal disease follows Dr. Aguilera and transplant team at [facility] Family history of blood clots GERD (gastroesophageal reflux disease) Gout History of basal cell carcinoma History of malignant melanoma of skin Hyperlipidemia Hypertension Nephrolithiasis Pneumonia due to COVID-19 virus Renal transplant recipient Sarcoidosis Sleep apnea CPAP Surgical History (Updated 04/24/21 @ 14:50 by Anibal Cason DO) H/O colonoscopy History of cardiac cath 01/2018 > [facility] > NO STENTS History of melanoma excision left calf History of tonsillectomy History of tooth extraction Kidney transplanted APR 04, 2019 > PENDING SALE TO [facility] > right side Family History Mother Stroke Heart disease Grandmother Cancer Other Lung disease Social History Smoking Status: Never smoker Second Hand Exposure: No; Hx Alcohol Use: No Hx Substance Use: No Preferred Language: Bhutanese Communication Ability: Effective Sample Card Maker Required: No Beliefs That Will Affect Care: None marital status: Current Living Situation: Family Current Living Situation Comment: spouse, sister, son current occupational status: employed current occupation: [employer] How many Children do You have: 1 Other Information That Helps Us Care for You: No Feels Safe at Home: Yes Assistive Devices: None Review of Systems Review of Systems: REVIEW OF SYSTEMS: Constitutional: (+) fever, sweats or chills Eyes: No diplopia, no worsening or blurred vision ENT: normal hearing, no trouble swallowing Respiratory: No cough, sputum, dyspnea at rest or on exertion Cardiovascular: (+) lower extremity edema, No chest pain, tightness or palpitations Abdomen: No pain, nausea, vomiting, diarrhea or constipation Musculoskeletal: (+) myalgias, NO calf pain, Neurologic: (+) chronic neruopathy, No weakness, numbness/tingling, or balance problems Psychiatric: No anxiety or depression Skin: No rash or itch Physical Exam Physical Exam: PHYSICAL EXAM: General: awake, alert, complaints of headache Head: Normocephalic, atraumatic ENT: PERRL, EOMI, no pharyngeal exudate, mucous membranes dry, Bottom left tooth with with dried blood, no active drainage, surrounding tissue not painful with probing Neuro: AAO x 3, speech clear and appropriate, strength intact bilaterally 5/5, sensation intact and equal all extremities and dermatomes, no pronator drift Chest: equal rise and fall of the chest, no accessory muscle use, no heaves or thrills, Clear to auscultation, on room air, Cardiac: Regular rate and rhythm, telemetry reviewed, skin warm dry, cap refill <3 seconds, peripheral pulses +2 no JVD, no murmur, no JVD,+2 edema to lower extremities GI: NABS x 4 quadrants, soft, nontender to palpation, no rebound, guarding or tenderness : Spontaneously voiding- dark urine, no pain, no CVA tenderness, Extremities: myalgias all over, Normal inspection, no peripheral edema or erythema, calfs nontender to palpation Psych: Normal mood and affect Skin: Venous discoloration to bilateral lower extremities Results & Data Results & Data ([facility]) Vital Signs (Past 12 Hours) Vital Signs Temp Pulse Pulse Resp BP BP Pulse Ox 04/24/21 14:09 82 16 134/90 96 04/24/21 11:17 37.3 C 95 H 20 174/82 H 94 Laboratory Results Abnormal lab results 04/24/21 04/24/21 04/24/21 Range/Units 11:30 11:30 11:30 RBC 3.28 L (4.7-6.1) M/uL Hgb 9.9 L (14.0-18.0) g/dL Hct 31.7 L (42-52) % MCHC 31.2 L (32-36) g/dL RDW Std Deviation 51.5 H (36.4-46.3) fL MPV 10.6 H (7.4-10.4) fL Lymph # (Auto) 0.66 L (1.2-3.4) K/uL PT (9.0-12.0) Seconds INR (0.9-1.1) BUN 58 H (7-18) mg/dl Creatinine 4.18 H (0.6-1.4) mg/dl Influ A Molecular Assay Positive A* (Negative) 04/24/21 Range/Units 13:51 RBC (4.7-6.1) M/uL Hgb (14.0-18.0) g/dL Hct (42-52) % MCHC (32-36) g/dL RDW Std Deviation (36.4-46.3) fL MPV (7.4-10.4) fL Lymph # (Auto) (1.2-3.4) K/uL PT 28.5 H (9.0-12.0) Seconds INR 3.1 H (0.9-1.1) BUN (7-18) mg/dl Creatinine (0.6-1.4) mg/dl Influ A Molecular Assay (Negative) Diagnostic Findings Chest X-Ray 04/24/21 11:29 XR chest 1V portable CLINICAL HISTORY: Fever COMPARISON STUDY: Chest radiograph April 06, 2021. Chest CT November 17, 2017. FINDINGS: Enlargement of the cardiac silhouette is again noted. No pneumothorax or pleural effusion is noted. There is no lobar consolidation. Reticulonodular interstitial thickening is again noted. This is likely chronic. However, there may be mild superimposed mild right lung airspace opacity. Hilar prominence is unchanged. IMPRESSION: 1. Reticulonodular residual thickening which is likely chronic. However, possible superimposed mild right lung airspace opacity may reflect infectious process. 2. Stable enlargement of the cardiac silhouette. Stable bilateral hilar prominence. ACT 112: Negative or not required by law. Electronically signed by: Tray Owen M.D. 04/24/2021 1:59 PM Medications Administered Discontinued Medications Sodium Chloride (Nss 1000ml) 1,000 mls @ 999 mls/hr IV .Q1H1M ONE Stop: 04/24/21 14:19 Last Admin: 04/24/21 14:07 Dose: 999 mls/hr Documented by: [id number] Home Medications aspirin 81 mg tablet,delayed release (Adult Low Dose Aspirin) 81 mg PO QAM 04/24/19 [History Confirmed 04/24/21] cholecalciferol (vitamin D3) 25 mcg (1,000 unit) capsule 1,000 units PO QAM 04/24/19 [History Confirmed 04/24/21] docusate sodium 100 mg capsule (Colace) 100 mg PO BID PRN 04/24/19 [History Confirmed 04/24/21] multivitamin (Daily Multi-Vitamin) 1 tab PO QAM 04/24/19 [History Confirmed 04/24/21] tamsulosin 0.4 mg capsule (Flomax) 0.4 mg PO HS 04/24/19 [History Confirmed 04/24/21] prednisone 5 mg tablet 5 mg PO QAM tab 05/29/19 [History Confirmed 04/24/21] sodium di- and monophosphate-potassium phos monobasic 250 mg tablet (L-Emtv-Otkockv) 2 tab PO TID tab 05/29/19 [History Confirmed 04/24/21] magnesium oxide 800 mg PO TID cap 01/11/20 [History Confirmed 04/24/21] mycophenolate mofetil 250 mg capsule (CellCept) 1,000 mg PO BID cap 02/20/20 [History Confirmed 04/24/21] febuxostat 80 mg tablet (Uloric) 80 mg PO QAM 03/06/20 [History Confirmed 04/24/21] cyclosporine 100 mg capsule 100 mg PO BID cap 03/19/20 [History Confirmed 04/24/21] furosemide 40 mg tablet (Lasix) 60 mg PO QAM #120 tab 05/09/20 [Rx Confirmed 04/24/21] omeprazole 40 mg capsule,delayed release 40 mg PO QAM #90 cap 05/09/20 [Rx Confirmed 04/24/21] gabapentin 300 mg capsule (Neurontin) 900 mg PO HS #270 cap 06/14/20 [Rx Confirmed 04/24/21] simvastatin 40 mg tablet 40 mg PO HS #90 tab 06/17/20 [Rx Confirmed 04/24/21] gabapentin 300 mg capsule (Neurontin) 600 mg PO BID 08/17/20 [History Confirmed 04/24/21] warfarin 5 mg tablet 5 mg PO UD 09/02/20 [History Confirmed 04/24/21] losartan 100 mg tablet 100 mg PO QAM #90 tab 11/04/20 [Rx Confirmed 04/24/21] vitamin B complex (B Complex-Vitamin B12) 1 tab PO BID 01/14/21 [History Confirmed 04/24/21] duloxetine 40 mg capsule,delayed release 40 mg PO QAM #90 cap 03/07/21 [Rx Co nfirmed 04/24/21] albuterol sulfate 90 mcg/actuation aerosol inhaler 2 inha INH Q6H PRN #1 inhaler 04/06/21 [Rx Confirmed 04/24/21] Active Medications Oseltamivir Phosphate (Oseltamivir Phosphate Susp 30 Mg/5 Ml Udp) 30 mg PO DAILY RANDELL; Protocol Stop: 04/29/21 14:29 ECG Additional Comments: 04-APR-2021 11:45:17 [facility]-EDSTAT ROUTINE RETRIEVAL Normal sinus rhythm Left anterior fascicular block Abnormal ECG When compared with ECG of 06-APR-2021 12:01, No significant change was found Code Status & VTE Plan Code Status CODE: FULL VTE: SCDS, Coumadin, ambulation VTE Prophylaxis Plan VTE Prophylaxis will be ordered: Yes Supervising Physician Co-Signing Physician Notes I personally saw and examined the patient. I verified all bunch points and agree with MARTA Winter with the following exceptions and/or additions: 60 year old renal transplant placement presents to the ER with influenza A and LORENZO. When seen on diaz he reports improved symptoms improved since being in the ER. O/E - ill appearing, Chest CTAB, Abdo SNT, no CVA tenderness A/P Influenza A - tamiflu 30mg PO daily LORENZO on CKD - agree with gentle fluid resuscitation, ok to continue with losartan but will hold furosemide Renal transplant - consult nephrology PG Care Time/CCT Total # of Minutes Spent Total Time Spent with Patient: Total time spent is greater than 50% in coordination of care (as documented) at patient's floor/unit and/or counseling patient: Coding Level of Care Code 59962 Initial Inpt Care Lvl 3 Diagnoses Influenza A J10.1 LORENZO (acute kidney injury) N17.9 Renal transplant recipient Z94.0 Anemia D64.9 Anticoagulant long-term use Z79.01 Neuropathy G62.9 Hypertension I10 Hypertension type: essential hypertension Obesity E66.9 Sleep apnea G47.30 Depression F32.89 Depression Type: other depression GERD (gastroesophageal reflux disease) K21.9 Esophagitis presence: without esophagitis BPH (benign prostatic hyperplasia) N40.1; R39.11 Lower urinary tract symptom detail: urinary hesitancy Lower urinary tract symptom presence: symptoms present (1) BPH (benign prostatic hyperplasia) Lower urinary tract symptom detail: urinary hesitancy Lower urinary tract symptom presence: symptoms present Qualified Code(s): N40.1 - Benign prostatic hyperplasia with lower urinary tract symptoms; R39.11 - Hesitancy of micturition (2) Depression Depression Type: other depression Qualified Code(s): F32.89 - Other specified depressive episodes (3) GERD (gastroesophageal reflux disease) Esophagitis presence: without esophagitis Qualified Code(s): K21.9 - Gastro- esophageal reflux disease without esophagitis (4) Hypertension Hypertension type: essential hypertension Qualified Code(s): I10 - Essential (primary) hypertension
[2021-04-24] MEDS: OSELTAMIVIR PHOSPHATE SUSP 30 MG/5 ML UDP PO SCH (15:50)
[2021-04-24] MEDS ORDERED: WARFARIN SOD 7.5 MG TAB PO SCH (16:00)
[2021-04-24] MEDS ORDERED: ONDANSETRON INJ 2 MG/ML 2 ML VIAL IV PRN (17:11)
[2021-04-24] MEDS ORDERED: DOCUSATE SODIUM 100 MG CAP PO PRN (17:11)
[2021-04-24] MEDS ORDERED: ALBUTEROL HFA 8 GM INHALER INH PRN (17:11)
[2021-04-24] MEDS ORDERED: LACTATED RINGER'S 1,000 ML IV ONE (17:11)
[2021-04-24] MEDS: ACETAMINOPHEN 325 MG TAB PO PRN (17:49)
[2021-04-24] MEDS: TAMSULOSIN HCL 0.4 MG CAP PO SCH (19:23)
[2021-04-24] MEDS: SIMVASTATIN 40 MG TAB PO SCH (19:24)
[2021-04-24] MEDS: MYCOPHENOLATE MOFETIL 250 MG CAP PO SCH (19:24)
[2021-04-24] MEDS: GABAPENTIN 300 MG CAP PO SCH (19:25)
[2021-04-24 20:12] LABS: Appearance Urine Clear (Clear); Bacteria Urine Automated Negative (Negative); Bilirubin Urine Negative (Negative); Blood Urine Trace (Negative); Color Urine Yellow; Glucose Urine UA Negative (Negative); Ketones Urine Negative (Negative); Leukocyte Esterase Urine Negative (Negative); Nitrite Urine Negative (Negative); RBC Urine Automated 0-4 /hpf (0-4); Specific Gravity Urine 1.012 (1.000-1.030); Urobilinogen Urine Negative (Negative); WBC Urine Automated 0 /hpf (0-5); pH Urine 8.5 (4.5-7.5)
[2021-04-24 20:15] LABS: Protein Urine 1+ (Negative)
[2021-04-24] MEDS ORDERED: POT PHOSPHATE MONOBASIC W/ SOD TAB PO SCH (21:00)
[2021-04-24] MEDS ORDERED: cycloSPORINE 100 MG CAP PO SCH ×2 (21:00)
[2021-04-24] MEDS: cycloSPORINE (SANDIMMUNE) 25 MG CAP PO SCH (22:13)
[2021-04-25] MEDS: ACETAMINOPHEN 325 MG TAB PO PRN ×2 (06:20→14:52)
--- NOTE | 2021-04-25 07:47 | Electrocardiogram Report ---
Test Reason : Blood Pressure : / mmHG Vent. Rate : 095 BPM Atrial Rate : 095 BPM P-R Int : 160 ms QRS Dur : 102 ms QT Int : 370 ms P-R-T Axes : 039 -51 055 degrees QTc Int : 464 ms Normal sinus rhythm Left anterior fascicular block Poor R wave progression, consider anterior IA vs. lead placement vs. LVH Abnormal ECG When compared with ECG of 06-APR-2021 12:01, No significant change was found Confirmed by Manuel Sanchez ([id number]) on 04/25/2021 7:46:44 AM Referred By: ED Confirmed By:Anthony Sanchez
[2021-04-25] MEDS ORDERED: LOSARTAN POTASSIUM 50 MG TAB PO SCH (09:00)
[2021-04-25 09:17] LABS: Hematocrit (blood only) 32.3 % (42-52); Hemoglobin 10.2 g/dL (14.0-18.0); Mean Corpuscular Hemoglobin 30.3 pg (25-34); Mean Corpuscular Hgb Conc 31.6 g/dL (32-36); Mean Corpuscular Volume 95.8 fL (80-100); Mean Platelet Volume 10.4 fL (7.4-10.4); Platelet Count 173 K/uL (130-400); RDW Coefficient of Variation 14.4 % (11.5-14.5); RDW Standard Deviation 50.5 fL (36.4-46.3); Red Blood Count 3.37 M/uL (4.7-6.1); White Blood Count 4.17 K/uL (4.8-10.8)
[2021-04-25] MEDS: cycloSPORINE (SANDIMMUNE) 25 MG CAP PO SCH ×2 (09:20→21:10)
[2021-04-25] MEDS: MULTIVITAMIN TAB PO SCH (09:20)
[2021-04-25] MEDS: MAGNESIUM OXIDE 400 MG TAB PO SCH ×3 (09:20→21:10)
[2021-04-25] MEDS: ASPIRIN 81 MG ECTAB PO SCH (09:20)
[2021-04-25] MEDS: GABAPENTIN 600 MG TAB PO SCH ×2 (09:21→16:16)
[2021-04-25] MEDS: predniSONE 5 MG TAB PO SCH (09:21)
[2021-04-25] MEDS: PANTOprazole 40 MG TAB PO SCH (09:21)
[2021-04-25] MEDS: DULoxetine HCL 20 MG CAP PO SCH (09:21)
[2021-04-25] MEDS: CHOLECALCIFEROL 1,000 UNITS 25 MCG TAB PO SCH (09:22)
[2021-04-25] MEDS: MYCOPHENOLATE MOFETIL 250 MG CAP PO SCH ×2 (09:22→21:12)
[2021-04-25 09:29] LABS: INR 2.4 (0.9-1.1)
[2021-04-25 09:37] LABS: Basophils # (auto) 0.04 K/uL (0-0.2); Eosinophils # (auto) 0.11 K/uL (0-0.5); Eosinophils % (auto) 2.6 %; Immature Granulocytes # (auto) 0.01 K/uL (0.00-0.02); Immature Granulocytes % (auto) 0.2 %; Lymphocytes # (auto) 0.72 K/uL (1.2-3.4); Lymphocytes % (auto) 17.3 %; Monocytes # (auto) 0.48 K/uL (0.11-0.59); Monocytes % (auto) 11.5 %; Neutrophils # (auto) 2.81 K/uL (1.4-6.5); Neutrophils % (auto) 67.4 %
[2021-04-25 09:44] LABS: BUN Creatinine Ratio 14.3 (10-20); Calcium 9.2 mg/dl (8.5-10.1); Creatinine Clr Calc Pharmacy 31.1 ml/min; Est GFR (African American) 19.9 ml/min; Est GFR (Non-African American) 17.2 ml/min; Magnesium 2.4 mg/dl (1.8-2.4); Potassium 4.9 mmol/L (3.5-5.1)
[2021-04-25 09:48] LABS: Phosphorus 4.2 mg/dl (2.5-4.9)
[2021-04-25] MEDS: OSELTAMIVIR PHOSPHATE SUSP 30 MG/5 ML UDP PO SCH (12:05)
[2021-04-25] MEDS: SODIUM CHLORIDE 0.9% 1000ML 1,000 ML IV SCH (12:30)
[2021-04-25] MEDS ORDERED: WARFARIN SOD 5 MG TAB PO SCH (14:30)
--- NOTE | 2021-04-25 15:31 | Hospitalist Progress Note ---
Date of Service April 25, 2021 Assessment & Plan (1) Influenza A: Plan: Influenza A - onset of symptoms on the morning of 04/24 - Tamiflu daily for CRCL- 14 - Continue supportive care with NSS at 80ml/hour - Tylenol for myalgias/fevers/headache (2) LORENZO (acute kidney injury): Plan: LORENZO on CKD 4-5 - Creatinine improved from 4.18 to 3.64 this morning. Baseline likely between 3.2 and 3.4. Has had progressive reduction in renal function over the past 6 months. - Hold diuretics at this time - Hold ARB - Renally dose Tamiflu - Follow daily BMP - Accurate I's and O's (3) Renal transplant recipient: Plan: As above - Continue cyclosporine, Cellcept, Prednisone, -Canceled nephrology consult as kidney function is improving. (4) Anemia: Plan: AOCD- HGB at 9.9 follow no acute needs (5) Anticoagulant long-term use: Plan: Warfarin for DVT of left lower leg history - INR 3.1 on admission -Continue warfarin. Monitor INR (6) Neuropathy: Plan: Continue Gabapentin (7) Hypertension: Plan: Appears well controlled - Hold ARB until renal function improves (8) Obesity: Plan: BMI 41 continue with weight loss support and optimizing medical managment for senior living CVD benefit (9) Sleep apnea: Plan: CPAP 8cm H2- 2017 - continue (10) Depression: Plan: continue duloxetine 40mg PO daily - no acute issues (11) GERD (gastroesophageal reflux disease): Plan: Continue with omeprazole 40mg PO daily (12) BPH (benign prostatic hyperplasia): Plan: Continue with Tamsulosin 0.4mg PO daily Admission and Anticipated Discharge Date Admission Date: April 24, 2021 Supervising Physician Co-Signing Physician Notes Feeling about the same. Able to eat and drink reasonably, but notes that he is now having diarrhea about once an hour. Vitals noted, in general he is fatigued but no distress. HEENT normocephalic atraumatic mucous membranes moist. Breathing unlabored no accessory muscle use good effort. Skin shows no rashes no pallor or icterus. Neuro without focal def icits. Influenza A with subsequent dehydration and LORENZO on CKD 4 and a baseline immune compromised renal transplant patientlooking reasonably stable, creatinine improved, however his diarrhea has just started. IV fluids, supportive care, follow. Once he is able to maintain his own fluid balance, likely will be safe for home, but right now his situation appears to be too tenuous to be able to do this safely. Tamiflu. Otherwise as above. Subjective Patient is a 60-year-old male with a past medical history of kidney transplant, immunosuppressed, anemia, anticoagulation, hypertension, hyperlipidemia, and BPH at the hospital for influenza A infection as well as acute kidney injury. Patient states that yesterday in the morning he began feeling symptoms of the flu such as myalgias, chills, and loss of appetite. Later in the day he had noted a temperature of 102 F which prompted him to go to the emergency room. While he was there he was diagnosed with flu and an acute kidney injury. He received fluid in the emergency room and brought up to the floor for admission to the hospital. Today he states that he feels overall fine, but just like he "has the flu". He states that he still has muscle aches, but they are mildly improved. He also states this morning he began having diarrhea and is having a bowel movement every hour that consists of watery brown stool. Otherwise patient is feeling okay and has been able to take small bites out of his breakfast and he is tolerating liquids well. Patient denies chest pain, shortness of breath, nausea, and vomiting. Patient has no other complaints at this time. Review of Systems Review of Systems: All systems reviewed & are unremarkable except as noted in HPI & below Physical Exam Constitutional: well developed, well nourished and + obese; no acute distress Eyes: + anicteric sclerae Neck: trachea midline, no thyromegaly Respiratory: normal respiratory effort, lungs clear to auscultation Cardiovascular: RRR, no murmur, no edema Gastrointestinal (Abdomen): Inspection/Auscultation: abdomen normal to inspection and normal bowel sounds; abdomen not distended Skin: no rashes, warm and dry Neurologic: CN's II-XI intact bilaterally and moves all extremities Psychiatric: A+Ox3, euthymic affect Results & Data Results & Data ([facility]) Vital Signs (Past 12 Hours) Vital Signs Temp Pulse Resp BP Pulse Ox 04/25/21 07:47 37.4 C 68 18 151/76 H 96 Resident Activity Tracking Resident Involvement: Resident Care Provided Care Provided: Adult Hospital Medicine (1) BPH (benign prostatic hyperplasia) Lower urinary tract symptom detail: urinary hesitancy Lower urinary tract symptom presence: symptoms present Qualified Code(s): N40.1 - Benign prostatic hyperplasia with lower urinary tract symptoms; R39.11 - Hesitancy of micturition (2) Depression Depression Type: other depression Qualified Code(s): F32.89 - Other specified depressive episodes (3) GERD (gastroesophageal reflux disease) Esophagitis presence: without esophagitis Qualified Code(s): K21.9 - Gastro- esophageal reflux disease without esophagitis (4) Hypertension Hypertension type: essential hypertension Qualified Code(s): I10 - Essential (primary) hypertension
[2021-04-25] MEDS ORDERED: WARFARIN SOD 10 MG TAB PO SCH (16:00)
[2021-04-25] MEDS ORDERED: WARFARIN SOD 7.5 MG TAB PO ONE (16:30)
--- NOTE | 2021-04-25 17:31 | Billing Data ---
Date of Service April 25, 2021 Coding Level of Care Code 39410 Subseq Hosp Care Lvl 3
[2021-04-25] MEDS: GABAPENTIN 300 MG CAP PO SCH (21:09)
[2021-04-25] MEDS: SIMVASTATIN 40 MG TAB PO SCH (21:11)
[2021-04-25] MEDS: TAMSULOSIN HCL 0.4 MG CAP PO SCH (21:11)
[2021-04-26] MEDS: SODIUM CHLORIDE 0.9% 1000ML 1,000 ML IV SCH (01:30)
[2021-04-26 05:49] LABS: INR 2.1 (0.9-1.1); Prothrombin Time 20.4 Seconds (9.0-12.0)
[2021-04-26 06:23] LABS: BUN Creatinine Ratio 15.1 (10-20); Calcium 8.9 mg/dl (8.5-10.1); Creatinine Clr Calc Pharmacy 34.2 ml/min; Est GFR (African American) 22.4 ml/min; Est GFR (Non-African American) 19.3 ml/min; Potassium 4.8 mmol/L (3.5-5.1)
[2021-04-26 07:30] VITALS: BP 157/84; PULSE 75; TEMP 97.9; O2SAT 94
[2021-04-26] MEDS ORDERED: NURSING DECISION MEDICATION ONE (08:32)
[2021-04-26] MEDS ORDERED: COUGH DROP (SUGAR FREE) LOZ 24 LOZ/1 BOX BUCCAL ONE (08:43)
[2021-04-26] MEDS: MULTIVITAMIN TAB PO SCH (08:56)
[2021-04-26] MEDS: ASPIRIN 81 MG ECTAB PO SCH (08:56)
[2021-04-26] MEDS: DULoxetine HCL 20 MG CAP PO SCH (08:56)
[2021-04-26] MEDS: MYCOPHENOLATE MOFETIL 250 MG CAP PO SCH (08:56)
[2021-04-26] MEDS ORDERED: COUGH DROP (SUGAR FREE) LOZ 24 LOZ/1 BOX BUCCAL PRN (08:56)
[2021-04-26] MEDS: MAGNESIUM OXIDE 400 MG TAB PO SCH (08:56)
[2021-04-26] MEDS: PANTOprazole 40 MG TAB PO SCH (08:56)
[2021-04-26] MEDS: GABAPENTIN 600 MG TAB PO SCH (08:56)
[2021-04-26] MEDS: predniSONE 5 MG TAB PO SCH (08:56)
[2021-04-26] MEDS: CHOLECALCIFEROL 1,000 UNITS 25 MCG TAB PO SCH (08:56)
[2021-04-26] MEDS: cycloSPORINE (SANDIMMUNE) 25 MG CAP PO SCH (08:57)
[2021-04-26] MEDS: OSELTAMIVIR PHOSPHATE SUSP 30 MG/5 ML UDP PO SCH (09:21)
--- NOTE | 2021-04-26 13:25 | Discharge Summary ---
Date of Service April 26, 2021 Admission HPI Per Admitting Provider 60 YOM with past medical history of: Focal glomerular sclerosis, Renal transplant (2019), CRI, HTN, HLD, Obesity, FARNAZ, DVT in left lower leg (on Coumadin), peripheral neuropathy, COVID 09/18. Patient comes to the EMD today for complaints of joint aches, fever at home, and 2 episodes of diarrhea. The patient states he was in his normal health through the week up until last night when diarrhea started. He felt weak and tired this morning and did not want to get out of bed. He does endorse full body myalgias. He also reports not eating or drinking anything this morning or taking his morning medications. The patient did have a tooth extraction done ~1 week ago, and this was also bleeding this morning. In the EMD the patient had routine labs drawn to include COVID and Influenza testing. He also had blood cultures drawn x2 that are pending. He received 1liter of saline in the EMD and the hospitalist service was notified for admission. Patient appears tired with dry mucous membranes and complains of headache and bodyaches. Patient will be admitted for IV hydration x 1 liter LR, discussed case with Nephrology for administration of Tamiflu and will give him 30mg PO daily for CRCL 10-30. Will hold today's dose of Coumadin for INR 3.1 and resume tomorrow. [facility] admit to [facility] for tracking of his renal function and output as well as symptom control and management. Patient had URI symptoms back on and was placed on Azithromycin at that time by his PCP with diagnosis of bronchitis. His CXR in the EMD is noted for residual thickening- chronic- and possible superimposed mild right lung airspace opacity that may reflect inffectious process. His WBC are normal with normal NLR with no oxygen supplementation and no cough at this time, will continue with Tamiflu and follow. Principal Diagnosis Influenza Discharge Exam Constitutional well developed, well nourished and + obese; no acute distress Eyes + anicteric sclerae Neck trachea midline, no thyromegaly Respiratory normal respiratory effort, lungs clear to auscultation Cardiovascular RRR, no murmur, no edema Gastrointestinal (Abdomen) Inspection/Auscultation: abdomen normal to inspection and normal bowel sounds; abdomen not distended Skin no rashes, warm and dry Neurologic CN's II-XI intact bilaterally and moves all extremities Psychiatric A+Ox3, euthymic affect Discharge Data Allergies Allergy/AdvReac Type Severity Reaction Status Date / Time allopurinol Allergy Unknown Rash Verified 04/24/21 14:17 Penicillins Allergy Unknown Unknown Verified 04/24/21 14:17 hydromorphone [From Dilaudid] AdvReac Severe confusion Verified 04/24/21 14:17 Consultations 04/24/21 13:20 ED Decision to Admit Stat Hospital Course (1) Influenza A: Influenza A - onset of symptoms on the morning of 04/24 - Tamiflu daily for CRCL- 14, patient has 3 more days of Tamiflu yet to take which was sent to pharmacy -Was given normal saline in the hospital, recommend drinking at least 80 fluid ounces of water per day - Tylenol for myalgias/fevers/headache (2) LORENZO (acute kidney injury): 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 Baseline likely between 3.2 and 3.4. Has had progressive reduction in renal function over the past 6 months. - Hold diuretics at this time - Hold ARB - Renally dose Tamiflu - Follow daily BMP - Accurate I's and O's (3) Renal transplant recipient: As above - Continue cyclosporine, Cellcept, Prednisone, -Canceled nephrology consult as kidney function is improving. (4) Anemia: AOCD- HGB at 9.9 follow no acute needs (5) Anticoagulant long-term use: Warfarin for DVT of left lower leg history - INR 3.1 on admission. Now 2.1 on discharge -Continue warfarin. Monitor INR (6) Neuropathy: Continue Gabapentin (7) Hypertension: Appears well controlled - Hold ARB until renal function improves (8) Obesity: BMI 41 continue with weight loss support and optimizing medical managment for fpc CVD benefit (9) Sleep apnea: CPAP 8cm H20- 2017 - continue (10) Depression: continue duloxetine 40mg PO daily - no acute issues (11) GERD (gastroesophageal reflux disease): Continue with omeprazole 40mg PO daily (12) BPH (benign prostatic hyperplasia): Continue with Tamsulosin 0.4mg PO daily Total Time Total Time Spent Total Time Spent (In Minutes): 30 Discharge Plan Discharge Items Patient Disposition: Home - Self-Care Reason For Visit: INFLUENZA A Discharge Diagnosis: LORENZO Activity: Resume your previous activity Non-emergency contact: Primary Care Provider and Stock Replenisher Call non-emergency contact if: your symptoms worsen and your temperature is above 101.5 Follow-up/Referrals: Keerthi Nava CRNP [Nurse Practitioner] - Srikanth Aguilera DO [Primary Care Provider] - Diet: Regular Addtl Attending Provider Instructions: You were seen in the hospital for an acute kidney injury due to decreased oral intake due to influenza infection. While you were here, you were given IV fluids and Tamiflu. The IV fluids helped improve your kidney function as you seem to be dehydrated. The tamiflu is to aid in reducing the length of your influenza infection. You will take an additional 3 days of this medication which will complete the recommended dose. This will be sent to your pharmacy. Your first home dose will be tonight at 9PM. At this time, we recommend you continue on your regular dose of warfarin as you are able to tolerate your baseline oral intake. You informed us that your get routine lab work on early next week which lines up well with your discharge. Be sure to include an INR in these labs. Please follow up with your PCP within one week of discharge. Call your sander hand and inquire as to whether or not they would like to see your sooner than your appointment in April. It was a pleasure to be a part of your care and we wish you the best in your recovery. Pending Studies at Discharge: No Stand-Alone Forms: My [facility] Medications and DC Order Prescriptions: New oseltamivir [Tamiflu] 75 mg capsule 75 mg PO BID Qty: 5 RF: 0 Continued furosemide [Lasix] 40 mg tablet 60 mg PO QAM Qty: 120 RF: 3 omeprazole 40 mg capsule,delayed release(DR/EC) 40 mg PO QAM Qty: 90 RF: 3 simvastatin 40 mg tablet 40 mg PO HS Qty: 90 RF: 3 losartan 100 mg tablet 100 mg PO QAM Qty: 90 RF: 3 vitamin B complex [B Complex-Vitamin B12] Tablet 1 tab PO BID RF: 0 mycophenolate mofetil [CellCept] 250 mg capsule 1,000 mg PO BID RF: 0 febuxostat [Uloric] 80 mg tablet 80 mg PO QAM RF: 0 aspirin [Adult Low Dose Aspirin] 81 mg tablet,delayed release (DR/EC) 81 mg PO QAM RF: 0 tamsulosin [Flomax] 0.4 mg capsule 0.4 mg PO HS RF: 0 docusate sodium [Colace] 100 mg capsule 100 mg PO BID PRN (Reason: Constipation) RF: 0 multivitamin [Daily Multi-Vitamin] tablet 1 tab PO QAM RF: 0 cholecalciferol (vitamin D3) 1,000 unit capsule 1,000 units PO QAM RF: 0 prednisone 5 mg tablet 5 mg PO QAM RF: 0 P-Zpin-Luirtqb 250 mg tablet 2 tab PO TID RF: 0 magnesium oxide 400 mg magnesium capsule 800 mg PO TID RF: 0 cyclosporine 100 mg capsule 100 mg PO BID RF: 0 gabapentin [Neurontin] 300 mg capsule 900 mg PO HS Qty: 270 RF: 3 duloxetine 40 mg capsule,delayed release(DR/EC) 40 mg PO QAM Qty: 90 RF: 3 gabapentin [Neurontin] 300 mg capsule 600 mg PO BID RF: 0 warfarin 5 mg tablet 5 mg PO UD RF: 0 albuterol sulfate 90 mcg/actuation HFA aerosol inhaler 2 inha INH Q6H PRN (Reason: shortness of breath or wheezing) Qty: 1 RF: 0 Discharge Orders: Discharge Order (Routine); Ordered 04/26/21 Ordered By: Sean Prado Admission Data Admit Date/Time: 04/24/21 14:38 Attending Provider: Pa Potter Admit Provider: Davion Dominguez Primary Care Provider: Srikanth Aguilera Other Providers: Davion Dominguez Other Interventions: Discharge Summary Assessment (RN) Last Done: 04/26/21 11:34 Supervising Physician Co-Signing Physician Notes I personally saw and examined the patient. I verified all bunch points and agree with MARTA Winter with the following exceptions and/or additions: 60 year old renal transplant placement presents to the ER with influenza A and LORENZO. When seen on diaz he reports improved symptoms improved since being in the ER. OK for discharge. O/E - comfortable. Chest CTAB, Abdo SNT, no CVA tenderness A/P Influenza A - tamiflu 30mg PO daily, complete course at home. LORENZO on CKD - resolved. Renal transplant - f/u PCP and nephro as outpatient
--- NOTE | 2021-04-26 21:01 | Billing Data ---
Date of Service April 26, 2021 Coding Level of Care Code D/C DAY MANAGEMENT >30 MINS Time Spent (min) 45
== END 2021-04-26 13:17 | disposition home or self-care (01) | DRG 193 ==
LOC: ED 10:48 → 3E 14:38 → SUATTDRO 14:38 → 3E 16:17

== ENCOUNTER 2021-08-05 19:21 | Inpatient (IN) ==
[2021-08-05] MEDS ORDERED: SODIUM CHLORIDE 0.9% 1000ML 1,000 ML IV SCH (20:00)
[2021-08-05] MEDS ORDERED: SODIUM CHLORIDE 0.9% 500 ML IV ONE (20:00)
--- NOTE | 2021-08-05 20:39 | Emergency Department Note ---
Impression & Plan Rhabdomyolysis, History of renal transplant, Acute on chronic renal failure, Transaminitis, History of COVID-19 ED Provider Note NAME: NAN MONTE AGE: 60 SEX: M ARRIVES VIA: Walk-In INFORMANT: Patient ED PROVIDER(S): Jr Conner MD CHIEF COMPLAINT: Rhabdomyolysis, acute on chronic renal failure, transaminitis, referred. PLAN: Disposition: Admit MEDICAL DECISION MAKING: The patient is a pleasant 60-year-old gentleman with a past medical history of renal failure status post renal transplant in 2019 in [place] with subsequent CKD, dvt on warfarin, hypertension, hyperlipidemia on simvastatin who presents to the emergency department referred by his PCPs office for evaluation and admission for rhabdomyolysis with CPK of 29K and associated acute on chronic renal failure 2.9->4.2 and transaminitis AST 700s, which occurred in the setting of having COVID-19 at the beginning of July where he had initially reported resolution of his symptoms over several weeks but over the past 5-7 days reports feeling muscle weakness and aches that progressively worsened. He denies any fevers, chills, cough, congestion. He reports his diarrhea has improved somewhat but still persist and is intermittent. He reports no more than a bowel movement daily. On arrival the patient is fatigued appearing but no acute distress, afebrile with blood pressure in the 180s/90s and vital signs otherwise stable. He appears clinically dry. He has mild tenderness to the lower extremities compartments are not tense. He has full range of motion of all extremities though with mild weakness. Blood work was repeated and consistent with values from earlier today. WBC and platelets within normal limits. H/H within prior range of values. Chemistry without metabolic acidosis. Creatinine is 4.5 with BUN of 71. Potassium 5.2. Electrolytes otherwise unremarkable. AST and ALT slightly increased at 803 100, respectively. CPK is slightly increased to 32K. Lipase is not elevated. Covid-19 RNA, NAAT negative. IV fluid hydration was ordered as well as a CT scan abd/pelvis wo contrast to further characterize the patient's acute on chronic renal insufficiency. Patient agrees with plan for admission. Case was discussed [place]. Perez, [facility] [place], who will evaluate the patient for admission. Triage Nursing notes reviewed and agree them. Prior medical records reviewed Vital Signs: reviewed and remarkable for hypertension. Differential diagnosis: Infection, dehydration, metabolic abnormality, hypo/hyperglycemia, electrolyte disturbance, anemia, hypoxia, cardiac sources, intracerebral event, toxicologic, neurologic, as well as other pathologies. ER treatment provided: See below. Diagnostics interpreted by me: Cardiac Monitoring: An order for continuous cardiac monitoring was placed and demonstrated normal sinus rhythm, 67 bpm, no ectopy. Laboratory studies: See below Imaging studies: See below Consultation(s): Case was discussed with Dr. Perez, [facility] [place], who will evaluate the patient for admission. HPI: The patient is a pleasant 60-year-old gentleman with a past medical history of renal failure status post renal transplant in 2019 in [place] with subsequent CKD, dvt on warfarin, hypertension, hyperlipidemia on simvastatin who presents to the emergency department referred by his PCPs office for evaluation and admission for rhabdomyolysis with CPK of 29K and associated acute on chronic renal failure 2.9->4.2 and transaminitis AST 700s, which occurred in the setting of having COVID-19 at the beginning of July where he had initially reported resolution of his symptoms over several weeks but over the past 5-7 days reports feeling muscle weakness and aches that progressively worsened. He denies any fevers, chills, cough, congestion. He reports his diarrhea has improved somewhat but still persist and is intermittent. He reports no more than a bowel movement daily. ROS: See above HPI for pertinent positives & negatives. A total of 10 systems reviewed and were otherwise negative. VITALS:See Below PHYSICAL EXAMINATION: GENERAL: Awake, alert, fatigued-appearing, in no distress HENT: Normocephalic, atraumatic. Oropharynx unremarkable. EYES: Normal conjunctiva. Sclera non-icteric. NECK: Supple. No nuchal rigidity. FROM. No JVD. RESPIRATORY: Clear to auscultation. CARDIAC: Regular rate, normal rhythm. Extremities warm and well perfused. Pulses equal. ABDOMEN: Soft, non-distended. No tenderness to palpation. No rebound or g uarding. No masses. RECTAL: Deferred. MUSCULOSKELETAL: Chest examination reveals no tenderness. The back is symmetrical on inspection without obvious abnormality. There is no CVA tenderness to palpation. No joint edema. LOWER EXTREMITIES: 1+ BLE pitting edema. Mild tenderness throughout BLE. Compart ments are not tense. No pain with passive stretch. NEURO: Generalized muscle weakness. No focal sensory or motor deficits noted. SKIN: No rash or jaundice noted. Jr Conner MD Past Med/Surg History Medical History AV fistula LEFT WRIST> NO DIALYSIS CURRENTLY> FISTULA STILL WORKS PER PT DVT (deep venous thrombosis) Right- 04/2019 following transplant > Coumadin S/P LEFT LEG SURGERY (EXCISION OF MELANOMA LEFT LEG) 10 YEARS AGO. End stage renal disease follows Dr. Aguilera and transplant team at [facility] Family history of blood clots Gout History of basal cell carcinoma History of malignant melanoma of skin Hypertension Influenza A Nephrolithiasis Pneumonia due to COVID-19 virus Rectus sheath hematoma Sarcoidosis Umbilical hernia Venous insufficiency Venous stasis dermatitis Surgical History H/O colonoscopy History of cardiac cath 01/[address] [facility] > NO STENTS History of melanoma excision left calf History of tonsillectomy History of tooth extraction Kidney transplanted APR 04, 2019 > [facility] > right side Family History Mother Stroke Heart disease Grandmother Cancer Other Lung disease Social History Smoking Status: Never smoker Second Hand Exposure: No; Hx Alcohol Use: No Hx Substance Use: No Preferred Language: Swedish Communication Ability: Effective Relationship Executive Required: No Beliefs That Will Affect Care: None marital status: Current Living Situation: Family Current Living Situation Comment: spouse, sister, son current occupational status: employed current occupation: [employer] How many Children do You have: 1 Feels Safe at Home: Yes Assistive Devices: None Allergies Allergies Allergy/AdvReac Type Severity Reaction Status Date / Time allopurinol Allergy Unknown Rash Verified 08/05/21 21:32 Penicillins Allergy Unknown Unknown Verified 08/05/21 21:32 hydromorphone [From Dilaudid] AdvReac Severe confusion Verified 08/05/21 21:32 Home Meds Home Medications Medication Instructions Recorded Confirmed aspirin 81 mg tablet,delayed 81 mg PO QAM 04/24/19 08/05/21 release (Adult Low Dose Aspirin) cholecalciferol (vitamin D3) 25 1,000 units PO QAM 04/24/19 08/05/21 mcg (1,000 unit) capsule docusate sodium 100 mg capsule 100 mg PO BID PRN 04/24/19 08/05/21 (Colace) multivitamin (Daily Multi-Vitamin) 1 tab PO QAM 04/24/19 08/05/21 tamsulosin 0.4 mg capsule (Flomax) 0.4 mg PO HS 04/24/19 08/05/21 prednisone 5 mg tablet 5 mg PO QAM tab 05/29/19 08/05/21 mycophenolate mofetil 250 mg 1,000 mg PO BID cap 02/20/20 08/05/21 capsule (CellCept) febuxostat 80 mg tablet (Uloric) 80 mg PO QAM 03/06/20 08/05/21 warfarin 5 mg tablet 5 mg PO UD 09/02/20 08/05/21 vitamin B complex (B 1 tab PO BID 01/14/21 08/05/21 Complex-Vitamin B12) cyclosporine 100 mg capsule 150 mg PO BID cap 06/16/21 08/05/21 duloxetine 20 mg capsule,delayed 60 mg PO DAILY cap 06/16/21 08/05/21 release magnesium oxide 800 mg PO BID cap 06/16/21 08/05/21 sodium di- and 2 tab PO BID tab 06/16/21 08/05/21 monophosphate-potassium phos monobasic 250 mg tablet (A-[id number]-Mxpxwcx) ferrous sulfate 325 mg (65 mg 325 mg PO DAILY 08/05/21 08/05/21 iron) tablet (iron) Previous Rx's Medication Instructions Recorded losartan 100 mg tablet 100 mg PO QAM #90 tab 11/04/20 albuterol sulfate 90 mcg/actuation 2 inha INH Q6H PRN #1 inhaler 04/06/21 aerosol inhaler omeprazole 40 mg capsule,delayed 40 mg PO QAM #90 cap 04/29/21 release simvastatin 40 mg tablet 40 mg PO HS #90 tab 06/09/21 furosemide 40 mg tablet (Lasix) 60 mg PO QAM #135 tab 06/13/21 gabapentin 300 mg capsule See Rx Instructions PO HS #630 cap 08/01/21 (Neurontin) Results & Data (ED) Vital Signs Vital Signs - 24 hr 08/05/21 19:25 08/05/21 21:22 Temperature 36.7 C 36.8 C Temperature Source Temporal Artery Scan Oral Pulse Rate 78 Pulse Rate [Apical] 67 Pulse Rhythm [Apical] Regular Pulse Strength [Apical] Normal Respiratory Rate 18 18 Respiratory Effort / Characteristics Non-Labored Respiratory Depth Normal Blood Pressure 180/92 H Blood Pressure [Right Arm] 134/86 Blood Pressure Mean 121 Blood Pressure Mean [Right Arm] 102 Blood Pressure Position [Right Arm] Semi-fowlers Pulse Oximetry 97 97 Oxygen Delivery Method Room Air Sepsis Recent Fever Within 48 Hours No Sepsis New/Unexplained Change in Mental Status No Sepsis Action Taken by Nursing No Action Required Laboratory Data Attestation: I reviewed the patient's lab results. Result diagrams: 08/05/21 20:25 08/05/21 20: Lab Results 08/05/21 08/05/21 08/05/21 Range/Units 20:25 20:25 21:27 WBC 6.89 (4.8-10.8) K/uL RBC 3.44 L (4.7-6.1) M/uL Hgb 10.4 L (14.0-18.0) g/dL Hct 32.4 L (42-52) % MCV 94.2 (80-100) fL MCH 30.2 (25-34) pg MCHC 32.1 (32-36) g/dL RDW Std Deviation 48.2 H (36.4-46.3) fL RDW Coeff of Theresa 14.3 (11.5-14.5) % Plt Count 249 (130-400) K/uL MPV 10.8 H (7.4-10.4) fL Immature Gran % (Auto) 0.3 % Neut % (Auto) 87.5 % Lymph % (Auto) 6.0 % [place] % (Auto) 3.5 % Eos % (Auto) 2.3 % Baso % (Auto) 0.4 % Neut # (Auto) 6.03 (1.4-6.5) K/uL Lymph # (Auto) 0.41 L (1.2-3.4) K/uL [place] # (Auto) 0.24 (0.11-0.59) K/uL Eos # (Auto) 0.16 (0-0.5) K/uL Baso # (Auto) 0.03 (0-0.2) K/uL Immature Gran # (Auto) 0.02 (0.00-0.02) K/uL Sodium 138 (136-145) mmol/L Potassium 5.2 H (3.5-5.1) mmol/L Chloride 104 (98-107) mmol/L Carbon Dioxide 23 (21-32) mmol/L Anion Gap 11 (3-11) BUN 71 H (6-23) mg/dl Creatinine 4.45 H (0.6-1.4) mg/dl Est Cr Clr Drug Dosing 24.6 ml/min Est GFR ( Amer) 15.6 ml/min Est GFR (Non-Af Amer) 13.5 ml/min BUN/Creatinine Ratio 16.0 (10-20) Glucose 96 (70-99(Fasting)) mg/dl Calcium 9.6 (8.5-10.1) mg/dl Total Bilirubin 0.8 (0.2-1.0) mg/dl Direct Bilirubin 0.3 H (0-0.2) mg/dl AST 828 H (13-39) U/L ALT 309 H (7-52) U/L Alkaline Phosphatase 79 (34-104) U/L Total Creatine Kinase 64336 H (30-223) U/L Total Protein 7.0 (6.0-8.3) gm/dl Albumin 4.3 (3.4-5.0) gm/dl Globulin 2.7 (2.5-4.0) gm/dl Albumin/Globulin Ratio 1.6 (0.9-2) Lipase 70 (11-82) U/L SARS-CoV-2, RNA, NAAT NEGATIVE (NEGATIVE) Administered Medications Sodium Chloride (Nss 1000ml) 1,000 mls @ 125 mls/hr IV .Q8H RANDELL Stop: 09/04/21 19:59 Last Admin: 08/05/21 20:45 Dose: 125 mls/hr Documented by: [id number] Discontinued Medications Sodium Chloride (Nss) 500 mls @ 999 mls/hr IV .Q31M ONE Stop: 08/05/21 20:30 Last Infusion: 08/05/21 21:35 Dose: 0 mls/hr Documented by: [id number] Admin: 08/05/21 20:15 Dose: 999 mls/hr Documented by: [id number] Discharge Plan Visit Data Chief Complaint: Abnormal Labs/Diagnostic Testing Stated Complaint: ABNORMAL LABS REGARDING KIDNEY AND LIVER ED Provider: Jr Conner Discharge Problem: Rhabdomyolysis, History of renal transplant, Acute on chronic renal failure, Transaminitis, History of COVID-19 Forms Stand Alone Forms: [facility] Prescriptions Prescriptions: No Action losartan 100 mg tablet 100 mg PO QAM Qty: 90 RF: 3 omeprazole 40 mg capsule,delayed release(DR/EC) 40 mg PO QAM Qty: 90 RF: 3 simvastatin 40 mg tablet 40 mg PO HS Qty: 90 RF: 3 gabapentin [Neurontin] 300 mg capsule See Rx Instructions PO HS Qty: 630 RF: 3 vitamin B complex [B Complex-Vitamin B12] Tablet 1 tab PO BID RF: 0 mycophenolate mofetil [CellCept] 250 mg capsule 1,000 mg PO BID RF: 0 febuxostat [Uloric] 80 mg tablet 80 mg PO QAM RF: 0 aspirin [Adult Low Dose Aspirin] 81 mg tablet,delayed release (DR/EC) 81 mg PO QAM RF: 0 tamsulosin [Flomax] 0.4 mg capsule 0.4 mg PO HS RF: 0 docusate sodium [Colace] 100 mg capsule 100 mg PO BID PRN (Reason: Constipation) RF: 0 multivitamin [Daily Multi-Vitamin] tablet 1 tab PO QAM RF: 0 cholecalciferol (vitamin D3) 1,000 unit capsule 1,000 units PO QAM RF: 0 prednisone 5 mg tablet 5 mg PO QAM RF: 0 cyclosporine 100 mg capsule 150 mg PO BID RF: 0 duloxetine 20 mg capsule,delayed release(DR/EC) 60 mg PO DAILY RF: 0 magnesium oxide 400 mg magnesium capsule 800 mg PO BID RF: 0 [id number]-Kfctspd 250 mg tablet 2 tab PO BID RF: 0 furosemide [Lasix] 40 mg tablet 60 mg PO QAM Qty: 135 RF: 3 warfarin 5 mg tablet 5 mg PO UD RF: 0 albuterol sulfate 90 mcg/actuation HFA aerosol inhaler 2 inha INH Q6H PRN (Reason: shortness of breath or wheezing) Qty: 1 RF: 0 ferrous sulfate [iron] 325 mg (65 mg iron) Tablet 325 mg PO DAILY RF: 0 Referrals Referrals: Vinicius Ng MD [Primary Care Provider] - Discharge Problem: Rhabdomyolysis Qualifiers: Rhabdomyolysis type: non-traumatic Qualified Code(s): M62.82 - Rhabdomyolysis Acute on chronic renal failure Qualifiers: Acute renal failure type: unspecified
[2021-08-05 20:46] LABS: Hematocrit (blood only) 32.4 % (42-52); Hemoglobin 10.4 g/dL (14.0-18.0); Mean Corpuscular Hemoglobin 30.2 pg (25-34); Mean Corpuscular Hgb Conc 32.1 g/dL (32-36); Mean Corpuscular Volume 94.2 fL (80-100); Mean Platelet Volume 10.8 fL (7.4-10.4); Platelet Count 249 K/uL (130-400); RDW Coefficient of Variation 14.3 % (11.5-14.5); RDW Standard Deviation 48.2 fL (36.4-46.3); Red Blood Count 3.44 M/uL (4.7-6.1); White Blood Count 6.89 K/uL (4.8-10.8)
[2021-08-05 21:03] LABS: Calcium 9.6 mg/dl (8.5-10.1); Creatinine Clr Calc Pharmacy 24.6 ml/min; Est GFR (African American) 15.6 ml/min; Est GFR (Non-African American) 13.5 ml/min; Potassium 5.2 mmol/L (3.5-5.1)
[2021-08-05 21:06] LABS: Basophils # (auto) 0.03 K/uL (0-0.2); Basophils % (auto) 0.4 %; Eosinophils # (auto) 0.16 K/uL (0-0.5); Eosinophils % (auto) 2.3 %; Immature Granulocytes # (auto) 0.02 K/uL (0.00-0.02); Immature Granulocytes % (auto) 0.3 %; Lymphocytes # (auto) 0.41 K/uL (1.2-3.4); Monocytes # (auto) 0.24 K/uL (0.11-0.59); Monocytes % (auto) 3.5 %; Neutrophils # (auto) 6.03 K/uL (1.4-6.5); Neutrophils % (auto) 87.5 %
[2021-08-05 21:28] LABS: Albumin Globulin Ratio 1.6 (0.9-2); Albumin Level 4.3 gm/dl (3.4-5.0); Bilirubin Direct 0.3 mg/dl (0-0.2); Bilirubin,Total 0.8 mg/dl (0.2-1.0); Globulin 2.7 gm/dl (2.5-4.0)
--- NOTE | 2021-08-05 22:07 | History & Physical Report ---
Date of Service August 05, 2021 Assessment & Plan (1) Rhabdomyolysis: Plan: Patient sent into the emergency department for elevated CK. The story involves that he has muscular pain and weakness specially to his large leg muscles. This is confirmed by examination. He has other systemic signs of inflammation with elevation of transaminases worsening of renal failure and elevation of his CRP. He also does take statins does take an SSRI and has been persistently positive for rna for Covid he had been diagnosed back in 2020 had influenza in the fall 2020 and once again had Covid in this late winter 2021 (July) Patient does not have any dermatitis that is new associate with this has had no new somatic symptoms except for persistent diarrhea from his Covid in July has not had any medication changes This and we will hydrate the patient with normal saline after conferring with nephrology following his CK Bond catheter to collect his urine output we are sending laboratories for myositis hepatitis serology and a stool PCR to look for viral infections other than Covid that may be associated with his myositis If concern for PMR or other myositis perhaps involvement involving rheumatology may be warranted (2) Acute on chronic renal failure: Plan: Patient with acute on chronic renal failure with creatinine proximately below his baseline. He will continue his cyclosporine and mycophenolate we will hold his angiotensin receptor indigo and diuretic at this time. Patient will have a renal consult he will be hydrated be on a renal diet he does have mild elevation of his potassium to 5.2 and given a dose of Patiromer in the emergency department repeat laboratories in the morning we will check an EKG for any changes associate with hyperkalemia Patient underwent a cadaveric renal transplant in 2019 he will be maintained on his cyclosporine mycophenolate and prednisone 5. Certainly surveillance for addisonian crisis should be undertaken with escalation of prednisone dose if need be. (3) Transaminitis: Plan: Patient is elevation of his transaminases these could be likely related to his statins which are held he has no pain or organomegaly on examination check a hepatitis panel. 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 He has been seen in the past by coagulation clinic his INR slightly subtherapeutic on presentation at 1.9 we will continue his Coumadin he did take his dose today at 5 mg and following INR daily History of Present Illness Primary Care Provider: Vinicius Ng MD 60 YOM with past medical history of: Focal glomerular sclerosis, Renal transplant (2019), CRI, HTN, HLD, Obesity, FARNAZ, DVT in left lower leg (on Coumadin), peripheral neuropathy and venous stasis, COVID 09/18, who has been persistently positive with covid RNA and negative with antibiody testing PT refered for about one week of progressive large muscle pain and weakness, initially all large muscles were painful and felt still, now has trouble lifting legs to step up curbs or go up stairs, has to move legs with arms to get out of car, has no altered sensation over his usual peripheral neuropathy, he has no change in reflexes of back pain or radicular pain. His thigh and calf muscles are tender to exam that is different than his chronic neuropathy He has had persistent loose bowel since his more recent "re infection " with covid this July, with daily loose bowel movements and he feels he has not been able to keep up with his hydration. His labs reflect LORENZO, elevated CK to 30,000 range and elevated liver transaminases to 800/300 ast/alt. He is chronically on statins and ssri, his most recent cyclosporin level was with in normal limits Allergies Allergy/AdvReac Type Severity Reaction Status Date / Time allopurinol Allergy Unknown Rash Verified 08/05/21 21:32 Penicillins Allergy Unknown Unknown Verified 08/05/21 21:32 hydromorphone [From Dilaudid] AdvReac Severe confusion Verified 08/05/21 21:32 Home Medications Medication Instructions Recorded Confirmed Type aspirin 81 mg tablet,delayed 81 mg PO QAM 04/24/19 08/05/21 History release (Adult Low Dose Aspirin) cholecalciferol (vitamin D3) 25 1,000 units PO QAM 04/24/19 08/05/21 History mcg (1,000 unit) capsule docusate sodium 100 mg capsule 100 mg PO BID PRN 04/24/19 08/05/21 History (Colace) multivitamin (Daily Multi-Vitamin) 1 tab PO QAM 04/24/19 08/05/21 History tamsulosin 0.4 mg capsule (Flomax) 0.4 mg PO HS 04/24/19 08/05/21 History prednisone 5 mg tablet 5 mg PO QAM tab 05/29/19 08/05/21 History mycophenolate mofetil 250 mg 1,000 mg PO BID cap 02/20/20 08/05/21 History capsule (CellCept) febuxostat 80 mg tablet (Uloric) 80 mg PO QAM 03/06/20 08/05/21 History warfarin 5 mg tablet 5 mg PO UD 09/02/20 08/05/21 History losartan 100 mg tablet 100 mg PO QAM #90 tab 11/04/20 08/05/21 Rx vitamin B complex (B 1 tab PO BID 01/14/21 08/05/21 History Complex-Vitamin B12) albuterol sulfate 90 mcg/actuation 2 inha INH Q6H PRN #1 inhaler 04/06/21 08/05/21 Rx aerosol inhaler omeprazole 40 mg capsule,delayed 40 mg PO QAM #90 cap 04/29/21 08/05/21 Rx release simvastatin 40 mg tablet 40 mg PO HS #90 tab 06/09/21 08/05/21 Rx furosemide 40 mg tablet (Lasix) 60 mg PO QAM #135 tab 06/13/21 08/05/21 Rx cyclosporine 100 mg capsule 150 mg PO BID cap 06/16/21 08/05/21 History duloxetine 20 mg capsule,delayed 60 mg PO DAILY cap 06/16/21 08/05/21 History release magnesium oxide 800 mg PO BID cap 06/16/21 08/05/21 History sodium di- and 2 tab PO BID tab 06/16/21 08/05/21 History monophosphate-potassium phos monobasic 250 mg tablet (T-[id number]-Oycjrih) gabapentin 300 mg capsule See Rx Instructions PO HS #630 cap 08/01/21 08/05/21 Rx (Neurontin) ferrous sulfate 325 mg (65 mg 325 mg PO DAILY 08/05/21 08/05/21 History iron) tablet (iron) Past Med/Surg History Medical History (Updated 08/05/21 @ 20:51 by Jr Conner MD) AV fistula LEFT WRIST> NO DIALYSIS CURRENTLY> FISTULA STILL WORKS PER PT DVT (deep venous thrombosis) Right- 04/2019 following transplant > Coumadin S/P LEFT LEG SURGERY (EXCISION OF MELANOMA LEFT LEG) 10 YEARS AGO. End stage renal disease follows Dr. Aguilera and transplant team at [facility] Family history of blood clots Gout History of basal cell carcinoma History of malignant melanoma of skin Hypertension Influenza A Nephrolithiasis Pneumonia due to COVID-19 virus Rectus sheath hematoma Sarcoidosis Umbilical hernia Venous insufficiency Venous stasis dermatitis Surgical History (Updated 08/05/21 @ 20:51 by Jr Conner MD) H/O colonoscopy History of cardiac cath 01/2018 > [facility] > NO STENTS History of melanoma excision left calf History of tonsillectomy History of tooth extraction Kidney transplanted APR 04, 2019 > [facility] > right side Family History Mother Stroke Heart disease Grandmother Cancer Other Lung disease Social History Smoking Status: Never smoker Second Hand Exposure: No; Hx Alcohol Use: No Hx Substance Use: No Preferred Language: Cambodian Communication Ability: Effective [employer] Professor Required: No Beliefs That Will Affect Care: None marital status: Current Living Situation: Family Current Living Situation Comment: spouse, sister, son current occupational status: employed current occupation: [employer] How many Children do You have: 1 Feels Safe at Home: Yes Assistive Devices: None Review of Systems Review of Systems: Mild distress and fatigue no headache, no visual changes no speech or swallowing issues no chest pain, pressure or palpitations persistent sob and mandel since covid diagnosis no abdominal pain, nausea or vomiting, diarrhea or constipation no dysuria, hematuria or frequency no focal joint pain chronic le swelling no back pain, CVA tenderness or radicular pain tender thigh and calf muscles no bruising, bleeding, NO rashes Le weakness but no change in sensation no complaints of anxiety or depression.. Physical Exam Physical Exam: The patient appeared well nourished and normally developed. Vital signs as documented. Head exam is normocephalic atraumatic Neck is without JVD, thyromegaly, or carotid bruits. Lungs are clear to auscultation, no focal loss of breath sounds Cardiac exam, Rhythm is regular.. No murmurs, rubs or gallops. Abdominal exam reveals normal bowel sounds, soft non tender, no masses, no RUQ tenderness Extremities aretr-1+ edematous and both pedal pulses are present Neurologic exam is alert and oriented, can only lift legs off bed for breif time, reflexes are intact and sensation is subjectively the same with his history of neuropathy Skin is without bruises or rashes Psychologically is without concerns for anxiety or depression.. Results & Data Results & Data ([facility]) Vital Signs (Past 12 Hours) Vital Signs Temp Pulse Pulse Resp BP BP Pulse Ox 08/05/21 21:22 98.2 F 67 18 134/86 97 08/05/21 19:25 98.1 F 78 18 180/92 H 97 Code Status & VTE Plan VTE Prophylaxis Plan VTE Prophylaxis will be ordered: Yes PG Care Time/CCT Total # of Minutes Spent Total Time Spent with Patient: Total time spent is greater than 50% in coordination of care (as documented) at patient's floor/unit and/or counseling patient: Coding Level of Care Code 73921 Initial Inpt Care Lvl 3 Diagnoses Rhabdomyolysis M62.82 Rhabdomyolysis type: non-traumatic Acute on chronic renal failure N17.9; N18.9 Acute renal failure type: unspecified Transaminitis R74.01 History of COVID-19 Z86.16 GERD (gastroesophageal reflux disease) K21.9 Anticoagulant long-term use Z79.01 (1) Rhabdomyolysis Rhabdomyolysis type: non-traumatic Qualified Code(s): M62.82 - Rhabdomyolysis (2) Acute on chronic renal failure Acute renal failure type: unspecified
[2021-08-05] MEDS ORDERED: hydrALAZINE HCL 20 MG/ML VIAL IV PRN (22:16)
[2021-08-05] MEDS ORDERED: GABAPENTIN 300 MG CAP PO SCH (23:05)
[2021-08-05] MEDS ORDERED: ONDANSETRON INJ 2 MG/ML 2 ML VIAL IV PRN (23:05)
[2021-08-05] MEDS ORDERED: cycloSPORINE (SANDIMMUNE) 25 MG CAP PO SCH (23:05)
[2021-08-05] MEDS: SODIUM CHLORIDE 0.9% 1000ML 1,000 ML IV SCH (23:41)
[2021-08-05] MEDS: cycloSPORINE 100 MG CAP PO SCH (23:43)
[2021-08-05] MEDS: cycloSPORINE (SANDIMMUNE) 25 MG CAP PO SCH (23:43)
[2021-08-05] MEDS: TAMSULOSIN HCL 0.4 MG CAP PO SCH (23:43)
[2021-08-05] MEDS: VITAMIN B COMPLEX TAB PO SCH (23:44)
[2021-08-05] MEDS: MYCOPHENOLATE MOFETIL 250 MG CAP PO SCH (23:45)
[2021-08-06] MEDS: SODIUM CHLORIDE 0.9% 1000ML 1,000 ML IV SCH ×3 (06:09→19:27)
--- NOTE | 2021-08-06 07:23 | Hospitalist Progress Note ---
Date of Service August 06, 2021 Assessment & Plan (1) Rhabdomyolysis: Plan: Mr. Prado is 60M with focal glomerular sclerosis s/p renal transplant in 2019, CRI, HTN, HLD, FARNAZ, recurrent DVTs, neuropathy, sarcoidosis, and venous stasis. He was admitted to the hospital with week-long progressive muscle pain suggestive of rhabdomyolysis. 1) Rhabdomyolysis, Acute Presented with CK >30,000 and tea colored urine; receiving IVF. 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 - 08/06: Cr 4.45 (baseline ~3.0) - CT abdm 08/05: atrophic [place] kidneys, transplant renal allograft negative for hydronephrosis and bladder nml - Appreciate Nephro recs: hold furosemide, losartan; decreased gabapentin to 300mg po BID - cont IVF as above -Hx of renal transplant: continue immunosuppressive regimen 3) Transaminitis AST 829, ALT 309 Likely in setting of rhabdomyolysis and possible statin use -Pending labs: monoscopt, hepatitis serologies, CVM titer, GGT 4) History of Covid-19 Patient is Covid-19 vaccinated x2 plus booster. Covid positive twice: 08/2020, 07/2021. Was more sedentary/isolating prior to muscle weakness and hospital presentation - Covid test negative 08/05 5) Chronic Disease Management: GERD- PPI Hx Recurrent DVTs: Warfarin (INR 1.9)- trend INR daily Immunosuppression: Mycophenolate, Cyclosporine DVT ppx: warfarin FEN/GI: regular diet, high volume IVF Code Status: Full Code Dispo: Med/Surg Admission and Anticipated Discharge Date Admission Date: August 05, 2021 Supervising Physician Co-Signing Physician Notes Medical Student Supervision Note: I was personally present during medical student patient encounter and independently interviewed and examined the patient and verified the bunch history and physical, reviewed labs and image studies, discussed the case with Angela Escalera and agree with the findings and care plan. Rhabdomyolysis - ? sec to meds - IV hydration. holding statin. h/o Renal transplant - renal following. continue immunosuppresant. follow renal function Subjective Mr. Prado is a 60M with focal glomerular sclerosis s/p cadaveric renal transplant (2019), chronic renal insufficiency, HTN, HLD, FARNAZ, recurrent DVTs on anti-coagulation, peripheral neuropathy, and venous stasis. He was sent to the ED by his PCP on 08/05 with progressively woresening leg pain and cramps and labs concerning of rhabdomyolysis. Kirby has had progressively worsening large muscle pain for the past 7 days. He says its his "large muscles" and walking up stairs has become very difficult- prior to hospitalization he said even walking up a curb would be painful. Describes as muscles being "tense". He says his upper extremity muscles are ok. Says his urine is tea-colored. Has never had anything like this in the past. He's been on Simvastatin for decades without any complications. Also on cyclosp orine/mycophenolate s/p renal transplant 2019. 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 and has one son. [id number] was kidney donor. Has no new skin changes. Muscle pain unchanged since admission. No fever/chills/nausea. No CP. No SOB. Review of Systems Review of Systems: per subjective Physical Exam Physical Exam: General: no acute distress, easily conversant, uses arms to move legs to get OOB Cardiac: Regular, rate, rythm. No murmurs, rubs, gallops. Left wrist AV fistula Abdominal: Soft, non-tender Respiratory: normal respiratory effort, lungs clear to auscultation Skin: no rashes, warm, dry; bilateral venous stasis in lower extremities Neuro: A&Ox3; bilaterally lower extremity weakness, normal upper extremity strength, sensation intact Results & Data Results & Data ([facility]) Vital Signs (Past 12 Hours) Vital Signs Temp Pulse Pulse Pulse Resp BP BP 08/05/21 23:15 36.6 C 68 16 169/83 H 08/05/21 22:45 36.9 C 66 15 130/78 08/05/21 21:22 36.8 C 67 18 134/86 08/05/21 19:25 36.7 C 78 18 180/92 H Pulse Ox 08/05/21 23:15 98 08/05/21 22:45 94 08/05/21 21:22 97 08/05/21 19:25 97 (1) Rhabdomyolysis Rhabdomyolysis type: non-traumatic Qualified Code(s): M62.82 - Rhabdomyolysis
[2021-08-06 08:10] LABS: Hematocrit (blood only) 29.4 % (42-52); Hemoglobin 9.6 g/dL (14.0-18.0); Mean Corpuscular Hemoglobin 30.7 pg (25-34); Mean Corpuscular Hgb Conc 32.7 g/dL (32-36); Mean Corpuscular Volume 93.9 fL (80-100); Mean Platelet Volume 10.5 fL (7.4-10.4); Platelet Count 210 K/uL (130-400); RDW Coefficient of Variation 14.4 % (11.5-14.5); RDW Standard Deviation 48.7 fL (36.4-46.3); Red Blood Count 3.13 M/uL (4.7-6.1); White Blood Count 5.78 K/uL (4.8-10.8)
[2021-08-06] MEDS: PANTOprazole 40 MG TAB PO SCH (08:25)
[2021-08-06] MEDS: VITAMIN B COMPLEX TAB PO SCH ×2 (08:25→20:42)
[2021-08-06 08:26] LABS: INR 2.1 (0.9-1.1); Prothrombin Time 21.9 Seconds (9.0-12.0)
[2021-08-06] MEDS: cycloSPORINE (SANDIMMUNE) 25 MG CAP PO SCH ×2 (08:26→20:41)
[2021-08-06] MEDS: predniSONE 5 MG TAB PO SCH (08:26)
[2021-08-06] MEDS: cycloSPORINE 100 MG CAP PO SCH ×2 (08:26→20:41)
[2021-08-06] MEDS: MYCOPHENOLATE MOFETIL 250 MG CAP PO SCH ×2 (08:27→20:41)
[2021-08-06] MEDS: PATIROMER CALCIUM SORBITEX 8.4 GM PACK PO SCH (08:27)
[2021-08-06] MEDS: CHOLECALCIFEROL 1,000 UNITS 25 MCG TAB PO SCH (08:27)
--- NOTE | 2021-08-06 08:27 | CT Scan Report ---
ABDOMEN AND PELVIS CT WITHOUT CONTRAST CT DOSE: 1940.44 mGy.cm HISTORY: Bilateral flank pain. rhabdomyolysis, hx cosmo txp, acute on chronic renal failure TECHNIQUE: Multiaxial CT images of the abdomen and pelvis were performed without contrast. A dose lo wering technique was utilized adhering to the principles of ALARA. COMPARISON STUDY: Abdomen and pelvis CT 09/14/2020. FINDINGS: Multiple subcentimeter calcified and noncalcified pulmonary nodules at the lung bases remai n unchanged. Calcified mediastinal and hilar lymphadenopathy is also noted. No pneumoperitoneum. No p neumatosis. Severe osteoarthritis within the left hip. No acute fractures within the visualized osseo us structures. Within the right anterior chest wall there is a 1.7 cm ill-defined low-density nodule. This favors an area of fat necrosis and is best seen image 24. Mild asymmetric thickening of the lef t rectus abdominis muscle which has improved. This could represent a small residual rectus sheath hem atoma. There is a small fat-containing umbilical hernia and a small fat-containing left inguinal iket ia. No retroperitoneal hematoma. The unenhanced liver, spleen, gallbladder, pancreas, and adrenal gla nds unremarkable. The [place] kidneys remain atrophic and contain a few hypodense lesions likely repre senting cysts. No retroperitoneal lymphadenopathy. Normal caliber abdominal aorta. There is a right l ower quadrant renal transplant. No hydronephrosis within the renal transplant. The bladder is unremar kable. The prostate gland is mildly enlarged. Suboptimal evaluation for bowel pathology due to the la ck of intravenous and oral contrast. However, there is no definite bowel wall thickening or obstructi on. Normal appendix. IMPRESSION: 1. Atrophic [place] kidneys with an unremarkable renal transplant. This remains unchanged. 2. No definite bowel wall thickening or obstruction. 3. Chronic granulomatous disease again noted within the lower chest. 4. Mild asymmetric thickening within the left rectus abdominis muscle which is improved compared to p rior study. This could represent a small residual chronic rectus sheath hematoma. ACT 112: Negative or not required by law. Electronically signed by: Joao Parker M.D. 08/06/2021 8:25 AM
[2021-08-06 08:32] LABS: BUN Creatinine Ratio 17.4 (10-20); Calcium 8.4 mg/dl (8.5-10.1); Est GFR (African American) 17.6 ml/min; Est GFR (Non-African American) 15.2 ml/min
--- NOTE | 2021-08-06 08:34 | Electrocardiogram Report ---
Test Reason : Blood Pressure : / mmHG Vent. Rate : 063 BPM Atrial Rate : 063 BPM P-R Int : 172 ms QRS Dur : 108 ms QT Int : 436 ms P-R-T Axes : 045 -42 015 degrees QTc Int : 446 ms Normal sinus rhythm Left anterior fascicular block Abnormal ECG When compared with ECG of 24-APR-2021 11:45, Vent. rate has decreased BY 32 BPM Confirmed by Evens Sauceda ([id number]) on 08/06/2021 8:34:11 AM Referred By: REFERRED SELF Confirmed By:Evens Sauceda
[2021-08-06 08:43] LABS: Magnesium 2.5 mg/dl (1.7-2.4)
[2021-08-06] MEDS ORDERED: GABAPENTIN 300 MG CAP PO SCH (09:00)
--- NOTE | 2021-08-06 09:48 | Nephrology Consultation ---
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 Urine sediment is negative for cellular casts. Noncontrast abdominal CT 08/05/21 revealed atrophic [place] kidneys. Transplant renal allograft was negative for hydronephrosis and bladder appeared normal. Prostate gland was mildly enlarged * Hold Furosemide, Losartan. Reduce Gabapentin to 300 mg po BID * Patient appears clinically volume contracted. Continue IV hydration w/ 0.9NS. Monitor PRP, LFT's, UO. Statin has been discontinued (2) History of renal transplant: * Continue current immunosuppressive regimen * Patient has progressive FSGS of the renal allograft. Will need to discuss FINANCIAL SERVICE PROFESSIONAL in the future (2nd transplant vs HD) (3) Rhabdomyolysis: * Statin has been stopped * Continue aggressive IV hydration * Monitor CPK, LFT, PRP (4) History of COVID-19: * Vaccinated x2 plus booster * COVID + 09/18 and 07/22 * COVID test 08/05/21 was negative History of Present Illness Reason for Consultation: LORENZO/CKD, LURT, rhabdomyolysis Attending Physician: Becky Mei MD History of Present Illness Mr. Prado is a 60 year old white male who is seen at the request of Dr. Perez for evaluation of LORENZO/CKD, LURT, rhabdomyolysis. 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 He had a R radiocephalic AVF in place and was started on in-center HD. In March 2019 he received a LURT from his [id number]. The transplant was performed at [facility] in [place]. He reports a post transplant Cr of 1.2. His immunosuppressive regimen consisted of Tacrolimus, MMF, Prednisone. In summer 2019 Cr increased to 1.9 and Mr. Prado developed a DVT requiring anticoagulation therapy. Medical evaluation revealed nephrotic range proteinuria (4.4g/day). Transplant kidney biopsy revealed FSGS. Prograf was changed to CSA and Losartan was added to his medical regimen. Unfortunately Mr. Prado has suffered a slow decline in transplant function. Cr increased to 3.0 - 3.5 in late 2020. His current immunosuppressive regimen consists of CSA 150 mg po BID, MMF 1000 mg po BID and prednisone 5 mg daily. His medical history is also significant for HTN, hypercholesterolemia, nephrolithiasis, FARNAZ on CPAP therapy and obesity. In 09/18 he contracted COVID. He was fully vaccinated but developed pulmonary infiltrates and a severe cough complicated by a L rectus sheath hematoma. Mr. Prado reports progressive weakness over the last 3 weeks. This progressed to the point that he had difficulty climbing stairs and needed to use his arms to help get out of a chair. He presented to the [facility] last evening where he was found to have evidence of rhabdomyolysis, acute liver injury and LORENZO/CKD. CPK was 32K, Cr 4.45. Mr. Doyle was nonoliguric and passing tea colored urine. Allergies Allergy/AdvReac Type Severity Reaction Status Date / Time allopurinol Allergy Unknown Rash Verified 08/05/21 21:32 Penicillins Allergy Unknown Unknown Verified 08/05/21 21:32 hydromorphone [From Dilaudid] AdvReac Severe confusion Verified 08/05/21 21:32 Home Medications Medication Instructions Recorded Confirmed Type aspirin 81 mg tablet,delayed 81 mg PO QAM 04/24/19 08/05/21 History release (Adult Low Dose Aspirin) cholecalciferol (vitamin D3) 25 1,000 units PO QAM 04/24/19 08/05/21 History mcg (1,000 unit) capsule docusate sodium 100 mg capsule 100 mg PO BID PRN 04/24/19 08/05/21 History (Colace) multivitamin (Daily Multi-Vitamin) 1 tab PO QAM 04/24/19 08/05/21 History tamsulosin 0.4 mg capsule (Flomax) 0.4 mg PO HS 04/24/19 08/05/21 History prednisone 5 mg tablet 5 mg PO QAM tab 05/29/19 08/05/21 History mycophenolate mofetil 250 mg 1,000 mg PO BID cap 02/20/20 08/05/21 History capsule (CellCept) febuxostat 80 mg tablet (Uloric) 80 mg PO QAM 03/06/20 08/05/21 History warfarin 5 mg tablet 5 mg PO UD 09/02/20 08/05/21 History losartan 100 mg tablet 100 mg PO QAM #90 tab 11/04/20 08/05/21 Rx vitamin B complex (B 1 tab PO BID 01/14/21 08/05/21 History Complex-Vitamin B12) albuterol sulfate 90 mcg/actuation 2 inha INH Q6H PRN #1 inhaler 04/06/21 08/05/21 Rx aerosol inhaler omeprazole 40 mg capsule,delayed 40 mg PO QAM #90 cap 04/29/21 08/05/21 Rx release simvastatin 40 mg tablet 40 mg PO HS #90 tab 06/09/21 08/05/21 Rx furosemide 40 mg tablet (Lasix) 60 mg PO QAM #135 tab 06/13/21 08/05/21 Rx cyclosporine 100 mg capsule 150 mg PO BID cap 06/16/21 08/05/21 History duloxetine 20 mg capsule,delayed 60 mg PO DAILY cap 06/16/21 08/05/21 History release magnesium oxide 800 mg PO BID cap 06/16/21 08/05/21 History sodium di- and 2 tab PO BID tab 06/16/21 08/05/21 History monophosphate-potassium phos monobasic 250 mg tablet ([id number]) gabapentin 300 mg capsule See Rx Instructions PO HS #630 cap 08/01/21 08/05/21 Rx (Neurontin) ferrous sulfate 325 mg (65 mg 325 mg PO DAILY 08/05/21 08/05/21 History iron) tablet (iron) Patient History Medical History AV fistula LEFT WRIST> NO DIALYSIS CURRENTLY> FISTULA STILL WORKS PER PT DVT (deep venous thrombosis) Right- 04/2019 following transplant > Coumadin S/P LEFT LEG SURGERY (EXCISION OF MELANOMA LEFT LEG) 10 YEARS AGO. End stage renal disease follows Dr. Aguilera and transplant team at [facility] Family history of blood clots Gout History of basal cell carcinoma History of malignant melanoma of skin Hypertension Influenza A Nephrolithiasis Pneumonia due to COVID-19 virus Rectus sheath hematoma Sarcoidosis Umbilical hernia Venous insufficiency Venous stasis dermatitis Surgical History H/O colonoscopy History of cardiac cath 01/2018 > [facility] > NO STENTS History of melanoma excision left calf History of tonsillectomy History of tooth extraction Kidney transplanted APR 04, 2019 > [facility] > right side Family History Mother Stroke Heart disease Grandmother Cancer Other Lung disease Social History Smoking Status: Never smoker Second Hand Exposure: No; Hx Alcohol Use: No Hx Substance Use: No Preferred Language: Turkish Communication Ability: Effective Engine Lathe Tender Required: No Beliefs That Will Affect Care: None marital status: Current Living Situation: Spouse Current Living Situation Comment: spouse, sister, son current occupational status: employed current occupation: [employer] How many Children do You have: 1 Other Information That Helps Us Care for You: No Feels Safe at Home: Yes Safety Concerns: Feels Safe At This Time Assistive Devices: None Assistive Devices Comment: CPAP at night Review of Systems Constitutional: + weakness (proximal muscle weakness); no fever Eyes: no problem reported Ear, Nose, Mouth, Throat: no problem reported Respiratory: no cough and no dyspnea Cardiovascular: no chest pain, no palpitations and no edema Gastrointestinal: no abdominal pain, no vomiting and no diarrhea/loose stools Genitourinary: no dysuria (dark, tea colored urine) or no urinary hesitancy Musculoskeletal: no back pain Integumentary: no rash Neurologic: no falls and no confusion Physical Exam Constitutional: not in distress Eyes: PERRL, conjunctivae normal, anicteric sclerae ENMT: external ear and nose normal, oropharynx normal Neck: trachea midline, no thyromegaly Respiratory: normal respiratory effort, lungs clear to auscultation Cardiovascular: RRR, no murmur, no edema Gastrointestinal (Abdomen): normal bowel sounds, soft, nontender, no hepatosplenomegaly (RLQ transplant allograft NT to palpation, no arterial bruit) Skin: no rashes, warm and dry Neurologic: awake; not confused Results & Data ([place]) Vital Signs (Past 12 Hours) Vital Signs Temp Pulse Pulse Resp BP BP Pulse Ox 08/06/21 07:44 36.5 C 57 L 16 160/85 H 97 08/05/21 23:15 36.6 C 68 16 169/83 H 98 08/05/21 22:45 36.9 C 66 15 130/78 94 Laboratory Results Laboratory Tests 01/03/19 01/03/19 08/05/21 05:27 05:27 20:25 WBC 4.32 L Hgb 10.0 L Hct 29.7 L Plt Count 166 Sodium 143 Potassium 4.6 Chloride 111 H Carbon Dioxide 21 BUN 128 H Creatinine 12.90 H* D Glucose 92 Calcium 7.0 L AST 828 H ALT 309 H Total Creatine Kinase 64206 H Troponin I Albumin 4.3 08/05/21 08/06/21 08/06/21 20:25 07:32 07:32 WBC 5.78 Hgb 9.6 L Hct 29.4 L Plt Count 210 Sodium 139 Potassium 5.0 Chloride 108 H Carbon Dioxide 23 BUN 70 H Creatinine 4.03 H D Glucose Calcium 8.4 L AST ALT Total Creatine Kinase 45688 H Troponin I 0.04 Albumin Laboratory Tests 08/06/21 07:32 INR 2.1 H PG Care Time/CCT Total # of Minutes Spent Total Time Spent with Patient: Total time spent is greater than 50% in coordination of care (as documented) at patient's floor/unit and/or counseling patient: Coding Level of Care Code 42654 Inpt Consult Level 5 Diagnoses Acute on chronic renal failure N17.9; N18.9 Acute renal failure type: unspecified History of renal transplant Z94.0 Rhabdomyolysis M62.82 Rhabdomyolysis type: non-traumatic History of COVID-19 Z86.16 (1) Acute on chronic renal failure Acute renal failure type: unspecified (2) Rhabdomyolysis Rhabdomyolysis type: non-traumatic Qualified Code(s): M62.82 - Rhabdomyolysis
[2021-08-06 10:34] LABS: Hepatitis C IgG 13Yrs+Old_Rflx Neg (Neg)
[2021-08-06 10:35] LABS: Hepatitis B Surf Ag Rflx Conf Neg (Neg)
[2021-08-06 12:53] LABS: Adenovirus F 40/41 PCR Not Detected (NotDetected); Astrovirus PCR Not Detected (NotDetected); Campylobacter PCR Not Detected (NotDetected); Clostridium diff Toxin A/B PCR Not Detected (NotDetected); Cryptosporidium PCR Not Detected (NotDetected); Cyclospora cayetanensis PCR Not Detected (NotDetected); Entamoeba histolytica PCR Not Detected (NotDetected); Enteroaggregative E.coli(EAEC) Not Detected (NotDetected); Enteropathogenic E.coli (EPEC) Not Detected (NotDetected); Enterotoxigenic E.coli (ETEC) Not Detected (NotDetected); Giardia lamblia PCR Not Detected (NotDetected); Norovirus GI/GII PCR Not Detected (NotDetected); Plesiomonas shigelloides PCR Not Detected (NotDetected); Rotavirus A PCR Not Detected (NotDetected); Salmonella PCR Not Detected (NotDetected); Sapovirus PCR Not Detected (NotDetected); Shiga-like Toxin E.coli (STEC) Not Detected (NotDetected); Shigella/Enteroinvasive E.coli Not Detected (NotDetected); Vibrio cholerae PCR Not Detected (NotDetected); Vibrio species PCR Not Detected (NotDetected); Yersinia enterocolitica PCR Not Detected (NotDetected)
[2021-08-06] MEDS: GABAPENTIN 300 MG CAP PO SCH (14:52)
[2021-08-06] MEDS: WARFARIN SOD 10 MG TAB PO SCH (16:49)
[2021-08-06] MEDS: TAMSULOSIN HCL 0.4 MG CAP PO SCH (20:42)
[2021-08-07] MEDS: SODIUM CHLORIDE 0.9% 1000ML 1,000 ML IV SCH ×4 (02:00→20:36)
[2021-08-07 06:51] LABS: Basophils # (auto) 0.02 K/uL (0-0.2); Basophils % (auto) 0.3 %; Eosinophils # (auto) 0.17 K/uL (0-0.5); Eosinophils % (auto) 2.5 %; Hemoglobin 9.4 g/dL (14.0-18.0); Immature Granulocytes # (auto) 0.02 K/uL (0.00-0.02); Immature Granulocytes % (auto) 0.3 %; Lymphocytes # (auto) 0.57 K/uL (1.2-3.4); Lymphocytes % (auto) 8.5 %; Mean Corpuscular Hemoglobin 30.4 pg (25-34); Mean Corpuscular Hgb Conc 32.4 g/dL (32-36); Mean Corpuscular Volume 93.9 fL (80-100); Mean Platelet Volume 10.8 fL (7.4-10.4); Monocytes # (auto) 0.26 K/uL (0.11-0.59); Monocytes % (auto) 3.9 %; Neutrophils # (auto) 5.65 K/uL (1.4-6.5); Neutrophils % (auto) 84.5 %; Platelet Count 199 K/uL (130-400); RDW Coefficient of Variation 14.4 % (11.5-14.5); RDW Standard Deviation 48.8 fL (36.4-46.3); Red Blood Count 3.09 M/uL (4.7-6.1); White Blood Count 6.69 K/uL (4.8-10.8)
[2021-08-07 06:59] LABS: INR 2.6 (0.9-1.1); Prothrombin Time 26.6 Seconds (9.0-12.0)
[2021-08-07 07:11] LABS: BUN Creatinine Ratio 17.2 (10-20); Calcium 8.5 mg/dl (8.5-10.1); Creatinine Clr Calc Pharmacy 28.7 ml/min; Est GFR (Non-African American) 16.4 ml/min; Potassium 4.9 mmol/L (3.5-5.1)
[2021-08-07 07:13] LABS: Albumin Globulin Ratio 1.5 (0.9-2); Albumin Level 3.5 gm/dl (3.4-5.0); Bilirubin,Total 0.5 mg/dl (0.2-1.0); Globulin 2.4 gm/dl (2.5-4.0); Magnesium 2.2 mg/dl (1.7-2.4); Total Protein 5.9 gm/dl (6.0-8.3)
--- NOTE | 2021-08-07 07:20 | Hospitalist Progress Note ---
Date of Service August 07, 2021 Assessment & Plan (1) Rhabdomyolysis: Plan: Mr. rPado is 60M with focal glomerular sclerosis s/p renal transplant in 2019, CRI, HTN, HLD, FARNAZ, recurrent DVTs, neuropathy, sarcoidosis, and venous stasis. He was admitted to the hospital with week-long progressive muscle pain suggestive of rhabdomyolysis. Has been improving with IV hydration. 1) Rhabdomyolysis; improving Presented with CK >30,000 and tea colored urine; receiving IVF. Etiology unknown but includes medication induced (on statin and cyclosporine) - CK: 18,862 decreased from 28,196 - Trend CK and BMP Appreciate nephro recs: - Continued IV hydration NSS @ 150 mls/hr - Hold Statin - Monitor CPK, LFTs, 2) Acute on Chronic Renal Failure Likely secondary to pigment nephropathy and dehydration. - 08/07: Cr 3.78 (Decrease from 08/06 at 4.45 (baseline ~3.0)) - CT abdm 08/05: atrophic three affiliated kidneys, transplant renal allograft negative for hydronephrosis and bladder nml - Appreciate Nephro recs: hold furosemide, losartan; decreased gabapentin to 300mg po BID - cont IVF as above -Hx of renal transplant: continue immunosuppressive regimen 3) Transaminitis; improving - AST: 553 (decrease from 08/06 at 828) - ALT: 263 (decrease from 08/06 at 309) Likely in setting of rhabdomyolysis and possible statin use -Pending labs: monospot, hepatitis serologies, CVM titer, GGT 4) History of Covid-19 Patient is Covid-19 vaccinated x2 plus booster. Covid positive twice: 08/2020, 07/2021. Was more sedentary/isolating prior to muscle weakness and hospital presentation - Covid test negative 08/05 5) Chronic Disease Management: GERD- PPI Hx Recurrent DVTs: Warfarin (INR 2.6)- trend INR daily Immunosuppression: Mycophenolate, Cyclosporine DVT ppx: warfarin FEN/GI: regular diet, high volume IVF Code Status: Full Code Dispo: Med/Surg Admission and Anticipated Discharge Date Admission Date: August 05, 2021 Supervising Physician Co-Signing Physician Notes Medical Student Supervision Note: I was personally present during medical student patient encounter and independently interviewed and examined the patient and verified the bunch history and physical, reviewed labs and image studies, discussed the case with Angela Escalera and agree with the findings and care plan. Rhabdomyolysis - CPK 18k. IV hydration. holding statin. h/o Renal transplant - renal following. continue immunosuppresant. following renal function Subjective Mr. Prado is a 60M with focal glomerular sclerosis s/p cadaveric renal transplant (2019), chronic renal insufficiency, HTN, HLD, FARNAZ, recurrent DVTs on anti-coagulation, peripheral neuropathy, and venous stasis. He was sent to the ED by his PCP on 08/05 with progressively woresening leg pain and cramps and labs concerning of rhabdomyolysis. Feeling well today. Says muscle aches are the same if not better. Gabapentin was decreased and had bothersome neuropathy overnight. Understands nephro decreased gabapentin (600mg to 300mg) to protect kidneys. Otherwise, says is urine color has decreased and is eager to walk more today. No new concerns. No MAJANO. No SOB. No CP. No muscle tightness. No swelling. Review of Systems Review of Systems: All systems reviewed & are unremarkable except as noted in Subjective Physical Exam Physical Exam: General: no acute distress, easily conversant, uses arms to move legs to get OOB Cardiac: Regular, rate, rythm. No murmurs, rubs, gallops. Left wrist AV fistula Abdominal: Soft, non-tender Respiratory: normal respiratory effort, lungs clear to auscultation Skin: no rashes, warm, dry; bilateral ecchymosis in calves Neuro: A&Ox3; bilaterally lower extremity weakness, normal upper extremity strength, sensation intact Results & Data Results & Data ([facility]) Vital Signs (Past 12 Hours) Vital Signs Temp Pulse Resp BP Pulse Ox 08/06/21 23:25 36.6 C 65 17 168/86 H 94 (1) Rhabdomyolysis Rhabdomyolysis type: non-traumatic Qualified Code(s): M62.82 - Rhabdomyolysis
[2021-08-07] MEDS: VITAMIN B COMPLEX TAB PO SCH ×2 (08:18→20:35)
[2021-08-07] MEDS: cycloSPORINE 100 MG CAP PO SCH ×2 (08:19→20:36)
[2021-08-07] MEDS: MYCOPHENOLATE MOFETIL 250 MG CAP PO SCH ×2 (08:19→20:35)
[2021-08-07] MEDS: PANTOprazole 40 MG TAB PO SCH (08:20)
[2021-08-07] MEDS: cycloSPORINE (SANDIMMUNE) 25 MG CAP PO SCH ×2 (08:20→20:36)
[2021-08-07] MEDS: GABAPENTIN 300 MG CAP PO SCH ×2 (08:21→14:17)
[2021-08-07] MEDS: CHOLECALCIFEROL 1,000 UNITS 25 MCG TAB PO SCH (08:21)
[2021-08-07] MEDS: predniSONE 5 MG TAB PO SCH (08:21)
--- NOTE | 2021-08-07 08:44 | Nephrology Progress Note ---
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 Urine sediment is negative for cellular casts. Noncontrast abdominal CT 08/05/21 revealed atrophic [place] kidneys. Transplant renal allograft was negative for hydronephrosis and bladder appeared normal. Prostate gland was mildly enlarged * Hold Furosemide, Losartan. Reduce Gabapentin to 300 mg po BID * Patient remains clinically volume contracted. Continue IV hydration w/ 0.9NS. Monitor PRP, LFT's, UO. Statin has been discontinued (2) History of renal transplant: Plan: * Continue current immunosuppressive regimen * Patient has progressive FSGS of the renal allograft. Mr. Prado will discuss future SALES SERVICE TECHNICIAN (2nd transplant vs HD) with his transplant team at next transplant office visit (3) Rhabdomyolysis: Plan: * Statin has been stopped * Continue aggressive IV hydration * Monitor CPK, LFT, PRP (4) History of COVID-19: Plan: * Vaccinated x2 plus booster * COVID + 09/18 and 07/22 * COVID test 08/05/21 was negative Admission and Anticipated Discharge Date Admission Date: August 05, 2021 Subjective Mr. Prado was seen & evaluated in his hospital room this morning. He is tolerating IV hydration without dyspnea and reports brisk UO. He reports that his myalgias are mildly improved but he still has proximal muscle weakness and is anxious to begin PT. Review of Systems Constitutional: + weakness (proximal muscle weakness); no fever Eyes: no problem reported Ear, Nose, Mouth, Throat: no problem reported Respiratory: no cough and no dyspnea Cardiovascular: no chest pain, no palpitations and no edema Gastrointestinal: no abdominal pain, no vomiting and no diarrhea/loose stools Genitourinary: no dysuria (dark, tea colored urine) or no urinary hesitancy Musculoskeletal: no back pain Integumentary: no rash Neurologic: no falls and no confusion Physical Exam Constitutional: not in distress Eyes: PERRL, conjunctivae normal, anicteric sclerae ENMT: external ear and nose normal, oropharynx normal Neck: trachea midline, no thyromegaly Respiratory: normal respiratory effort, lungs clear to auscultation Cardiovascular: RRR, no murmur, no edema Gastrointestinal (Abdomen): normal bowel sounds, soft, nontender, no hepatosplenomegaly (RLQ transplant allograft NT to palpation, no arterial bruit) Skin: no rashes, warm and dry Neurologic: awake; not confused Results & Data ([facility]) Vital Signs (Past 12 Hours) Vital Signs Temp Pulse Pulse Resp BP Pulse Ox 08/07/21 07:58 79 155/85 H 97 08/07/21 07:37 36.7 C 76 14 142/100 H 96 08/06/21 23:25 36.6 C 65 17 168/86 H 94 Laboratory Results Laboratory Tests 08/07/21 08/07/21 06:18 06:18 WBC 6.69 Hgb 9.4 L Hct 29.0 L Plt Count 199 Sodium 139 Potassium 4.9 Chloride 111 H Carbon Dioxide 18 L BUN 65 H Creatinine 3.78 H Glucose 84 AST 553 H ALT 263 H Total Creatine Kinase 60965 H Albumin 3.5 PG Care Time/CCT Total # of Minutes Spent Total Time Spent with Patient: Total time spent is greater than 50% in coordination of care (as documented) at patient's floor/unit and/or counseling patient: Coding Level of Care Code 07543 Subseq Hosp Care Lvl 3 Diagnoses Acute on chronic renal failure N17.9; N18.9 Acute renal failure type: unspecified History of renal transplant Z94.0 Rhabdomyolysis M62.82 Rhabdomyolysis type: non-traumatic History of COVID-19 Z86.16 (1) Rhabdomyolysis Rhabdomyolysis type: non-traumatic Qualified Code(s): M62.82 - Rhabdomyolysis (2) Acute on chronic renal failure Acute renal failure type: unspecified
[2021-08-07] MEDS: PATIROMER CALCIUM SORBITEX 8.4 GM PACK PO SCH (09:41)
[2021-08-07] MEDS ORDERED: WARFARIN SOD 7.5 MG TAB PO SCH (16:00)
[2021-08-07 16:12] LABS: Anti-dsDNA Recombinant <1 IU/mL
[2021-08-07] MEDS: TAMSULOSIN HCL 0.4 MG CAP PO SCH (20:36)
[2021-08-08] MEDS: SODIUM CHLORIDE 0.9% 1000ML 1,000 ML IV SCH ×4 (03:11→23:36)
[2021-08-08] MEDS ORDERED: ACETAMINOPHEN 1000 MG/100 ML IV IV PRN (06:13)
[2021-08-08 06:15] LABS: Prothrombin Time 30.3 Seconds (9.0-12.0)
[2021-08-08] MEDS ORDERED: ACETAMINOPHEN 1000 MG/100 ML IV IV ONE (06:18)
[2021-08-08 06:47] LABS: BUN Creatinine Ratio 16.5 (10-20); Calcium 9.1 mg/dl (8.5-10.1); Creatinine Clr Calc Pharmacy 27.9 ml/min; Est GFR (African American) 18.4 ml/min; Est GFR (Non-African American) 15.9 ml/min; Potassium 4.6 mmol/L (3.5-5.1)
[2021-08-08 06:56] LABS: Albumin Globulin Ratio 1.5 (0.9-2); Albumin Level 3.5 gm/dl (3.4-5.0); Bilirubin,Total 0.5 mg/dl (0.2-1.0); Globulin 2.3 gm/dl (2.5-4.0); Total Protein 5.8 gm/dl (6.0-8.3)
[2021-08-08 07:56] LABS: Iron 59 mcg/dl (35-175); Total Iron Binding Cap Calc 272 mcg/dl (250-450); Transferrin (FE) Percent Satur 22 % (20-50); Unsaturated Iron Binding Cap 213 mcg/dl (155-355)
--- NOTE | 2021-08-08 08:15 | XRay Report ---
XR chest 1V portable HISTORY: Left-sided chest pain. fall on left chest COMPARISON: Chest 08/05/2021. FINDINGS: No pneumothorax. No pleural effusions. The heart remains enlarged. There is mild interstiti al/vascular thickening which has slightly progressed. This favors developing congestive change. No ne w focal lung consolidations to suggest pneumonia. IMPRESSION: Cardiomegaly with mild congestive change. ACT 112: Negative or not required by law. Electronically signed by: Joao Parker M.D. 08/08/2021 8:13 AM
[2021-08-08] MEDS: cycloSPORINE 100 MG CAP PO SCH ×2 (09:01→20:16)
[2021-08-08] MEDS: MYCOPHENOLATE MOFETIL 250 MG CAP PO SCH ×2 (09:01→20:17)
[2021-08-08] MEDS: cycloSPORINE (SANDIMMUNE) 25 MG CAP PO SCH ×2 (09:01→20:16)
[2021-08-08] MEDS: GABAPENTIN 300 MG CAP PO SCH ×2 (09:01→14:11)
[2021-08-08] MEDS: PANTOprazole 40 MG TAB PO SCH (09:02)
[2021-08-08] MEDS: VITAMIN B COMPLEX TAB PO SCH ×2 (09:02→20:16)
[2021-08-08] MEDS: predniSONE 5 MG TAB PO SCH (09:02)
[2021-08-08] MEDS: CHOLECALCIFEROL 1,000 UNITS 25 MCG TAB PO SCH (10:09)
--- NOTE | 2021-08-08 10:15 | Nephrology Progress Note ---
Date of Service August 08, 2021 Assessment & Plan (1) Acute on chronic renal failure: Plan: * LORENZO/CKD due to statin induced rhabdomyolysis/pigment nephropathy and dehydration. Urine sediment is negative for cellular casts. Noncontrast abdominal CT 08/05/21 revealed atrophic [place] kidneys. Transplant renal allograft was negative for hydronephrosis and bladder appeared normal. Prostate gland was mildly enlarged * Hold Losartan. Gabapentin has been reduced to 300 mg po BID * Continue IV hydration w/ 0.9NS. Patient is net 4L volume +. Will provide Furosemide 40 mg IV BID x 3 doses * Baseline Cr ~ 3.0. Target CPK < 5,000 * Monitor PRP, LFT's, UO. Statin has been discontinued (2) History of renal transplant: Plan: * Continue current immunosuppressive regimen * Patient has progressive FSGS of the renal allograft. Mr. Prado will discuss future ACCOUNT UNDERWRITER (2nd transplant vs HD) with his transplant team at next transplant office visit (3) Rhabdomyolysis: Plan: * Statin has been stopped * Continue aggressive IV hydration * Monitor CPK, LFT, PRP (4) History of COVID-19: Plan: * Vaccinated x2 plus booster * COVID + 09/18 and 07/22 * COVID test 08/05/21 was negative Admission and Anticipated Discharge Date Admission Date: August 05, 2021 Subjective Mr. Prado was seen & evaluated in his hospital room this morning. He suffered a mechanical fall in the [place] last evening. CXR was negative for fracture. He did not hit his head. He c/o mild L flank pain this morning. He voiced no other concerns. Review of Systems Constitutional: + weakness (proximal muscle weakness); no fever Eyes: no problem reported Ear, Nose, Mouth, Throat: no problem reported Respiratory: no cough and no dyspnea Cardiovascular: no chest pain, no palpitations and no edema Gastrointestinal: no abdominal pain, no vomiting and no diarrhea/loose stools Genitourinary: no dysuria (dark, tea colored urine) or no urinary hesitancy Musculoskeletal: no back pain Integumentary: no rash Neurologic: no falls and no confusion Physical Exam Constitutional: not in distress Eyes: PERRL, conjunctivae normal, anicteric sclerae ENMT: external ear and nose normal, oropharynx normal Neck: trachea midline, no thyromegaly Respiratory: normal respiratory effort, lungs clear to auscultation Cardiovascular: RRR, no murmur, no edema Gastrointestinal (Abdomen): normal bowel sounds, soft, nontender, no hepatosplenomegaly (RLQ transplant allograft NT to palpation, no arterial bruit) Skin: no rashes, warm and dry Neurologic: awake; not confused Results & Data ([place]) Vital Signs (Past 12 Hours) Vital Signs Temp Pulse Pulse Pulse Resp BP Pulse Ox 08/08/21 07:10 36.5 C 69 16 170/84 H 95 08/08/21 06:10 71 176/92 H 08/08/21 00:45 36.6 C 96 H 22 174/89 H 96 08/07/21 22:41 36.9 C 84 18 162/83 H 94 Laboratory Results Laboratory Tests 08/08/21 08/08/21 05:44 05:44 Sodium 139 Potassium 4.6 Chloride 113 H Carbon Dioxide 18 L BUN 64 H Creatinine 3.89 H Glucose 104 H Transferrin % Sat 22 AST 425 H ALT 251 H Total Creatine Kinase 60435 H PG Care Time/CCT Total # of Minutes Spent Total Time Spent with Patient: Total time spent is greater than 50% in coordination of care (as documented) at patient's floor/unit and/or counseling patient: Coding Level of Care Code 55071 Subseq Hosp Care Lvl 3 Diagnoses Acute on chronic renal failure N17.9; N18.9 Acute renal failure type: unspecified History of renal transplant Z94.0 Rhabdomyolysis M62.82 Rhabdomyolysis type: non-traumatic History of COVID-19 Z86.16 (1) Acute on chronic renal failure Acute renal failure type: unspecified (2) Rhabdomyolysis Rhabdomyolysis type: non-traumatic Qualified Code(s): M62.82 - Rhabdomyolysis
--- NOTE | 2021-08-08 10:58 | Hospitalist Progress Note ---
Date of Service August 08, 2021 Assessment & Plan (1) Rhabdomyolysis: Plan: Mr. Prado is 60M with focal glomerular sclerosis s/p renal transplant in 2019, CRI, HTN, HLD, FARNAZ, recurrent DVTs, neuropathy, sarcoidosis, and venous stasis. He was admitted to the hospital with week-long progressive muscle pain suggestive of rhabdomyolysis. Has been improving with IV hydration. 1) Rhabdomyolysis; improving Presented with CK >30,000 and tea colored urine; receiving IVF. 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 - 08/07: Cr 3.78 (Decrease from 08/06 at 4.45 (baseline ~3.0)) - CT abdm 08/05: atrophic [place] kidneys, transplant renal allograft negative for hydronephrosis and bladder nml - Appreciate Nephro recs: hold furosemide, losartan; decreased gabapentin to 300mg po BID - cont IVF as above -Hx of renal transplant: continue immunosuppressive regimen 3) Mechanical Fall; acute 08/07 night- fell while using bathroom-- did not hit head. Complains of chest/abdominal pain and bruising this AM. - CXR showed no acute fractures - Tylenol PRN - Ordered lidocaine patch - Fall precautions - Trend H&H 4) Transaminitis; improving - AST: 425 (decrease from 08/07 at 553) - ALT: 251 (decrease from 08/07 at 263) - GGT: 11 (nml) Likely in setting of rhabdomyolysis and possible statin use -Pending labs: monospot, hepatitis serologies, CMV titer, GGT 5) History of Covid-19 Patient is Covid-19 vaccinated x2 plus booster. Covid positive twice: 08/2020, 07/2021. Was more sedentary/isolating prior to muscle weakness and hospital presentation - Covid test negative 08/05 5) Chronic Disease Management: GERD- PPI Hx Recurrent DVTs: Warfarin (08/08: INR 3.0)- trend INR daily Immunosuppression: Mycophenolate, Cyclosporine DVT ppx: warfarin FEN/GI: regular diet, high volume IVF Code Status: Full Code Dispo: Med/Surg Admission and Anticipated Discharge Date Admission Date: August 05, 2021 Supervising Physician Co-Signing Physician Notes Medical Student Supervision Note: I was personally present during medical student patient encounter and independently interviewed and examined the patient and verified the bunch history and physical, reviewed labs and image studies, discussed the case with Angela Escalera and agree with the findings and care plan. Rhabdomyolysis - CPK 12k. IV hydration. holding statin. h/o Renal transplant - renal following. continue immunosuppresant. following renal function Mechanical fall - with bruises on left abdominal wall. no concern of bleeding. h/h stable. Subjective Mr. Prado is a 60M with FSGS s/p renal transplant in 2019 who was admitted for worsening muscle weakness concerning of rhabdomyolysis. His symptoms and labs are improving with fluids. Overnight, Mr. Prado had a fall. He suffered a mechanical fall in the [place] last evening. CXR was negative for fracture. He did not hit his head. Concerns of left chest and abdominal soreness. Despite his fall, he believes his muscle pain is improving. This afternoon, H&H continues to be stable. Review of Systems Review of Systems: per subjective Physical Exam Physical Exam: General: discomfort with movement, no acute distress, easily conversant Cardiac: Regular, rate, rhythm. No murmurs, rubs, gallops. Left wrist AV fistula Abdominal: Soft, non-tender. Scattered ecchymosis over left chest and abdomen Respiratory: normal respiratory effort, lungs clear to auscultation Skin: no rashes, warm, dry; bilateral ecchymosis in calves Neuro: A&Ox3; bilaterally lower extremity weakness, normal upper extremity strength, sensation intact Results & Data Results & Data ([facility]) Vital Signs (Past 12 Hours) Vital Signs Temp Pulse Pulse Pulse Resp BP Pulse Ox 08/08/21 07:10 36.5 C 69 16 170/84 H 95 08/08/21 06:10 71 176/92 H 08/08/21 00:45 36.6 C 96 H 22 174/89 H 96 (1) Rhabdomyolysis Rhabdomyolysis type: non-traumatic Qualified Code(s): M62.82 - Rhabdomyolysis
[2021-08-08] MEDS: FUROSEMIDE 40 MG/4 ML VIAL IV SCH (11:20)
[2021-08-08 12:35] LABS: Hematocrit (blood only) 29.5 % (42-52); Hemoglobin 9.6 g/dL (14.0-18.0)
[2021-08-08] MEDS: PATIROMER CALCIUM SORBITEX 8.4 GM PACK PO SCH (12:45)
[2021-08-08] MEDS: LIDOCAINE 5% 1 PATCH TD SCH (14:07)
[2021-08-08] MEDS ORDERED: FUROSEMIDE 40 MG/4 ML VIAL IV ONE (16:00)
[2021-08-08] MEDS: WARFARIN SOD 10 MG TAB PO SCH (16:15)
[2021-08-08 18:13] LABS: Hematocrit (blood only) 30.7 % (42-52); Mean Corpuscular Hemoglobin 30.6 pg (25-34); Mean Corpuscular Hgb Conc 32.6 g/dL (32-36); Mean Corpuscular Volume 93.9 fL (80-100); Mean Platelet Volume 10.4 fL (7.4-10.4); Platelet Count 208 K/uL (130-400); RDW Coefficient of Variation 14.5 % (11.5-14.5); RDW Standard Deviation 49.2 fL (36.4-46.3); Red Blood Count 3.27 M/uL (4.7-6.1)
[2021-08-08] MEDS: ACETAMINOPHEN 500 MG TAB PO PRN (19:39)
[2021-08-08] MEDS: TAMSULOSIN HCL 0.4 MG CAP PO SCH (20:16)
[2021-08-09] MEDS: ACETAMINOPHEN 500 MG TAB PO PRN (03:20)
[2021-08-09 06:08] LABS: INR 3.1 (0.9-1.1)
[2021-08-09 06:09] LABS: Hematocrit (blood only) 28.1 % (42-52); Mean Corpuscular Volume 93.7 fL (80-100); Mean Platelet Volume 10.7 fL (7.4-10.4); Platelet Count 199 K/uL (130-400); RDW Coefficient of Variation 14.6 % (11.5-14.5); RDW Standard Deviation 49.3 fL (36.4-46.3)
[2021-08-09 06:28] LABS: BUN Creatinine Ratio 17.8 (10-20); Calcium 9.2 mg/dl (8.5-10.1); Creatinine Clr Calc Pharmacy 29.7 ml/min; Est GFR (African American) 19.8 ml/min; Est GFR (Non-African American) 17.1 ml/min; Potassium 4.4 mmol/L (3.5-5.1)
--- NOTE | 2021-08-09 06:32 | Hospitalist Progress Note ---
Date of Service August 09, 2021 Assessment & Plan (1) Rhabdomyolysis: Plan: Mr. Prado is 60M with focal glomerular sclerosis s/p renal transplant in 2019, CRI, HTN, HLD, FARNAZ, recurrent DVTs, neuropathy, sarcoidosis, and venous stasis. He was admitted to the hospital with week-long progressive muscle pain suggestive of rhabdomyolysis. 1) Rhabdomyolysis; improving Presented with CK >30,000 and tea colored urine. 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 -Base Creatinine 3.0, improving at 3.66 today - CT abdm 08/05: atrophic [place] kidneys, transplant renal allograft negative for hydronephrosis and bladder nml - Appreciate Nephro recs: hold furosemide, losartan; decreased gabapentin to 300mg po BID for renal dosing. - cont IVF as above -Hx of renal transplant: continue immunosuppressive regimen of Cyclosporin, Cellcept, Prednisone -As patient was net 4L in volume, was provided Furosemide 40mg IV BID x3 doses on 08/08/21 -Roughly 2L diuresed since Furosemide dosing. 3) Mechanical Fall; acute 08/07 night- fell while using bathroom-- did not hit head. Complains of chest/abdominal pain and bruising. - CXR showed no acute fractures - Tylenol PRN -- will add Oxycodone 5mg TID PRN for further pain control - Ordered lidocaine patch - Fall precautions - Trend H&H - With pain with deep inspiration, add Incentive Spirometry QID to promote reduction in atelectasis 4) Transaminitis; improving -Notable for AST 553 and ALT 263 on admission, GGT 11 -Suspect secondary to Rhabdomyolysis -LFTs improving, continue to monitor -Monospot negative -CMV Pending -Hepatitis C negative -Hep B antigen negative, Hep B Core IgM pending -Hep A IgM pending 5) History of Covid-19 -Patient is Covid-19 vaccinated x2 plus booster. -Covid positive twice: 08/2020, 07/2021. Was more sedentary/isolating prior to muscle weakness and hospital presentation - Covid test negative 08/05 6) Hx Recurrent DVTs -On Warfarin therapy 10mg MWF and 7.5mg TuThSaSu -INR this AM 3.1 -Will reduce this afternoons Warfarin dose to 6mg 1x and recheck INR in AM -Continue to monitor Hgb level with recent fall while on Warfarin 7) Hypertension -Hold Losartan in setting of LORENZO DVT ppx: warfarin FEN/GI: Dialysis Renal Diet, NSS 100ml/hr Code Status: Full Code Dispo: Med/Surg Admission and Anticipated Discharge Date Admission Date: August 05, 2021 Supervising Physician Co-Signing Physician Notes Resident Physician Supervision Note: I independently interviewed and examined the patient and verified the bunch history and physical, reviewed labs and image studies and agree with resident Dr. Gaytan findings and care plan. Subjective Patient evaluated at the bedside this morning. He notes he had just finished b reakfast and feels relatively well. He has continued noticing some L sided chest/side discomfort secondary to his fall. Notes he has some pain with deep inspiration, but continues to trying to do so. He otherwise denies fever, chills, SOB, chest pressure, NVD. Review of Systems Review of Systems: All systems reviewed & are unremarkable except as noted in Subjective Physical Exam Constitutional: WD/WN, vitals as above Eyes: PERRL, conjunctivae normal, anicteric sclerae ENMT: external ear and nose normal, oropharynx normal Neck: trachea midline, no thyromegaly Respiratory: normal respiratory effort; no respiratory distress and no labored breathing Auscultation: + crackles (mild at the bases) Cardiovascular: RRR, no murmur, no edema Gastrointestinal (Abdomen): normal bowel sounds, soft, nontender, no hepatosplenomegaly Psychiatric: A+Ox3, euthymic affect Results & Data Results & Data ([facility]) Vital Signs (Past 12 Hours) Vital Signs Temp Pulse Resp BP Pulse Ox 08/08/21 21:49 36.5 C 76 18 169/89 H 93 Resident Activity Tracking Resident Involvement: Resident Care Provided Care Provided: Adult Hospital Medicine (1) Rhabdomyolysis Rhabdomyolysis type: non-traumatic Qualified Code(s): M62.82 - Rhabdomyolysis
[2021-08-09 06:41] LABS: Albumin Globulin Ratio 1.6 (0.9-2); Albumin Level 3.6 gm/dl (3.4-5.0); Bilirubin,Total 0.6 mg/dl (0.2-1.0); Globulin 2.2 gm/dl (2.5-4.0); Total Protein 5.8 gm/dl (6.0-8.3)
[2021-08-09] MEDS: SODIUM CHLORIDE 0.9% 1000ML 1,000 ML IV SCH ×2 (07:00→15:30)
[2021-08-09] MEDS: LIDOCAINE 5% 1 PATCH TD SCH (08:59)
[2021-08-09] MEDS: cycloSPORINE (SANDIMMUNE) 25 MG CAP PO SCH ×2 (09:01→20:55)
[2021-08-09] MEDS: CHOLECALCIFEROL 1,000 UNITS 25 MCG TAB PO SCH (09:01)
[2021-08-09] MEDS: predniSONE 5 MG TAB PO SCH (09:02)
[2021-08-09] MEDS: MYCOPHENOLATE MOFETIL 250 MG CAP PO SCH ×2 (09:02→20:38)
[2021-08-09] MEDS: cycloSPORINE 100 MG CAP PO SCH ×2 (09:02→20:35)
[2021-08-09] MEDS: VITAMIN B COMPLEX TAB PO SCH ×2 (09:02→20:38)
[2021-08-09] MEDS: PANTOprazole 40 MG TAB PO SCH (09:02)
[2021-08-09] MEDS: GABAPENTIN 300 MG CAP PO SCH ×2 (09:02→15:31)
[2021-08-09] MEDS: FUROSEMIDE 40 MG/4 ML VIAL IV SCH (09:06)
[2021-08-09] MEDS: oxyCODONE HCL IR 5 MG TAB (IMMEDIATE RELEASE) PO PRN (10:37)
--- NOTE | 2021-08-09 11:52 | Nephrology Progress Note ---
Date of Service August 09, 2021 Assessment & Plan (1) Acute on chronic renal failure: (2) Rhabdomyolysis: (3) History of renal transplant: Plan: [place] with advanced CKD with h/o renal transplant. [place] possibly secondary to statin induced rhabdomyolysis. Renal function slightly improved and staying relatively stable, electrolyte acceptable. CPK improved to 7K with IV fluid but seems getting volume overloaded, elevated BP. --DC IV fluid, hold further diuretics dose, monitor renal function and electrolytes. Admission and Anticipated Discharge Date Admission Date: August 05, 2021 Subjective Pt was not seen in person, clinical data, labs, vitals reviewed, discussed with primary team. Overall clinically stable, no acute overnight events. Kidney function stable decent UO,electrolytes acceptable, BP elevated, CPK improved to 7K. Results & Data ([facility]) Vital Signs (Past 12 Hours) Vital Signs Temp Pulse Resp BP Pulse Ox 08/09/21 07:38 36.4 C L 67 22 175/93 H 99 PG Care Time/CCT Total # of Minutes Spent Total Time Spent with Patient: Total time spent is greater than 50% in coordination of care (as documented) at patient's floor/unit and/or counseling patient: Coding Level of Care Code 40098 Subseq Hosp Care Lvl 2 Diagnoses Acute on chronic renal failure N17.9; N18.9 Acute renal failure type: unspecified Rhabdomyolysis M62.82 Rhabdomyolysis type: non-traumatic History of renal transplant Z94.0 (1) Acute on chronic renal failure Acute renal failure type: unspecified (2) Rhabdomyolysis Rhabdomyolysis type: non-traumatic Qualified Code(s): M62.82 - Rhabdomyolysis
[2021-08-09] MEDS: PATIROMER CALCIUM SORBITEX 8.4 GM PACK PO SCH (13:17)
[2021-08-09] MEDS ORDERED: WARFARIN SOD 6 MG TAB PO SCH (16:00)
[2021-08-09] MEDS: TAMSULOSIN HCL 0.4 MG CAP PO SCH (20:35)
[2021-08-10] MEDS: SODIUM CHLORIDE 0.9% 1000ML 1,000 ML IV SCH (01:28)
[2021-08-10] MEDS: oxyCODONE HCL IR 5 MG TAB (IMMEDIATE RELEASE) PO PRN (01:32)
[2021-08-10 01:46] LABS: CMV IgG Antibody <0.60 U/mL; CMV IgM Antibody <30.00 AU/mL; Hepatitis A Antibody IgM NON-REACTIVE (NON-REACTIVE); Hepatitis B Core Antibody IgM NON-REACTIVE (NON-REACTIVE)
[2021-08-10 06:40] LABS: Basophils # (auto) 0.04 K/uL (0-0.2); Basophils % (auto) 0.5 %; Eosinophils # (auto) 0.27 K/uL (0-0.5); Eosinophils % (auto) 3.7 %; Hematocrit (blood only) 29.4 % (42-52); Hemoglobin 9.5 g/dL (14.0-18.0); Immature Granulocytes # (auto) 0.02 K/uL (0.00-0.02); Immature Granulocytes % (auto) 0.3 %; Lymphocytes # (auto) 0.84 K/uL (1.2-3.4); Lymphocytes % (auto) 11.4 %; Mean Corpuscular Hemoglobin 30.3 pg (25-34); Mean Corpuscular Hgb Conc 32.3 g/dL (32-36); Mean Corpuscular Volume 93.6 fL (80-100); Mean Platelet Volume 10.6 fL (7.4-10.4); Monocytes # (auto) 0.18 K/uL (0.11-0.59); Monocytes % (auto) 2.5 %; Neutrophils # (auto) 5.99 K/uL (1.4-6.5); Neutrophils % (auto) 81.6 %; Platelet Count 205 K/uL (130-400); RDW Coefficient of Variation 14.8 % (11.5-14.5); RDW Standard Deviation 49.6 fL (36.4-46.3); Red Blood Count 3.14 M/uL (4.7-6.1); White Blood Count 7.34 K/uL (4.8-10.8)
[2021-08-10 06:47] LABS: INR 3.1 (0.9-1.1); Prothrombin Time 31.3 Seconds (9.0-12.0)
--- NOTE | 2021-08-10 06:55 | Hospitalist Progress Note ---
Date of Service August 10, 2021 Assessment & Plan (1) Rhabdomyolysis: Plan: Mr. Prado is 60M with focal glomerular sclerosis s/p renal transplant in 2019, CRI, HTN, HLD, FARNAZ, recurrent DVTs, neuropathy, sarcoidosis, and venous stasis. He was admitted to the hospital with week-long progressive muscle pain suggestive of rhabdomyolysis. 1) Rhabdomyolysis; improving Presented with CK >30,000 and tea colored urine. 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 -Base Creatinine 3.0, near baseline at 3.10 today - CT abdm 08/05: atrophic [place] kidneys, transplant renal allograft negative for hydronephrosis and bladder nml - Appreciate Nephro recs: hold furosemide; decreased gabapentin to 300mg po BID for renal dosing. -Resumed Losartan on 08/10/21 -Hx of renal transplant: continue immunosuppressive regimen of Cyclosporin, Cellcept, Prednisone -As patient was net 4L in volume, was provided Furosemide 40mg IV BID x3 doses on 08/08/21. Roughly 2L diuresed since Furosemide dosing. -Hold on further diuretics at this time 3) Anemia -Hgb at 9.5 today -Start Venofer per Nephrology recommendations 4) Mechanical Fall; acute 08/07 night- fell while using bathroom-- did not hit head. Complains of chest/abdominal pain and bruising. - CXR showed no acute fractures - Tylenol PRN -- will add Oxycodone 5mg TID PRN for further pain control - Ordered lidocaine patch - Fall precautions - No concern of bleeding. - With pain with deep inspiration, added Incentive Spirometry QID to promote reduction in atelectasis 5) Transaminitis; improving -Notable for AST 553 and ALT 263 on admission, GGT 11 -Suspect secondary to Rhabdomyolysis -LFTs improving, continue to monitor -Monospot negative -CMV negative -Hepatitis C negative -Hep B antigen negative, Hep B Core IgM non-reactive -Hep A IgM non-reactive 6) History of Covid-19 -Patient is Covid-19 vaccinated x2 plus booster. -Covid positive twice: 08/2020, 07/2021. Was more sedentary/isolating prior to muscle weakness and hospital presentation - Covid test negative 08/05 7) Hx Recurrent DVTs -On Warfarin therapy 10mg MWF and 7.5mg TuThSaSu -INR this AM 3.1 despite reduction in warfarin dosing to 6mg the day prior -Will reduce this afternoons Warfarin dose to 5mg 1x and recheck INR in AM -Continue to monitor Hgb level with recent fall while on Warfarin -Discussed with patient and he notes that he has only been taking the 7.5mg Warfarin dosage for a few weeks now and has not been taking the 10mg dose. -Consider DC on 7.5mg daily with close INR checks 8) Hypertension -Resume home Losartan today DVT ppx: warfarin FEN/GI: Dialysis Renal Diet, NSS 100ml/hr Code Status: Full Code Dispo: Med/Surg Admission and Anticipated Discharge Date Admission Date: August 05, 2021 Supervising Physician Co-Signing Physician Notes Resident Physician Supervision Note: I independently interviewed and examined the patient and verified the bunch history and physical, reviewed labs and image studies and agree with resident Dr. Gaytan findings and care plan. Subjective Patient evaluated at the bedside this morning. Noting over all feeling well. Still noting discomfort on the L side of his ribs and chest wall. Otherwise denies fever, chills, SOB, abdominal pain, chest pressure. Review of Systems Review of Systems: All systems reviewed & are unremarkable except as noted in Subjective Physical Exam Constitutional: WD/WN, vitals as above Eyes: PERRL, conjunctivae normal, anicteric sclerae ENMT: external ear and nose normal, oropharynx normal Neck: trachea midline, no thyromegaly Respiratory: normal respiratory effort; no respiratory distress and no labored breathing Auscultation: lungs clear to auscultation bilaterally Cardiovascular: RRR, no murmur, no edema Gastrointestinal (Abdomen): normal bowel sounds, soft, nontender, no hepatosplenomegaly Psychiatric: A+Ox3, euthymic affect Results & Data Results & Data ([facility]) Vital Signs (Past 12 Hours) Vital Signs Temp Pulse Resp BP Pulse Ox 08/09/21 21:54 36.6 C 77 18 171/89 H 96 Resident Activity Tracking Resident Involvement: Resident Care Provided Care Provided: Adult Hospital Medicine (1) Rhabdomyolysis Rhabdomyolysis type: non-traumatic Qualified Code(s): M62.82 - Rhabdomyolysis
[2021-08-10 07:16] LABS: Calcium 9.9 mg/dl (8.5-10.1); Est GFR (African American) 24.2 ml/min; Est GFR (Non-African American) 20.9 ml/min; Potassium 4.3 mmol/L (3.5-5.1)
[2021-08-10 07:28] LABS: Albumin Globulin Ratio 1.6 (0.9-2); Albumin Level 3.9 gm/dl (3.4-5.0); Bilirubin,Total 0.6 mg/dl (0.2-1.0); Globulin 2.4 gm/dl (2.5-4.0); Total Protein 6.3 gm/dl (6.0-8.3)
[2021-08-10] MEDS: LIDOCAINE 5% 1 PATCH TD SCH (08:52)
[2021-08-10] MEDS: CHOLECALCIFEROL 1,000 UNITS 25 MCG TAB PO SCH (09:08)
[2021-08-10] MEDS: cycloSPORINE 100 MG CAP PO SCH ×2 (09:09→19:58)
[2021-08-10] MEDS: GABAPENTIN 300 MG CAP PO SCH ×2 (09:10→19:58)
[2021-08-10] MEDS: MYCOPHENOLATE MOFETIL 250 MG CAP PO SCH ×2 (09:10→19:56)
[2021-08-10] MEDS: PANTOprazole 40 MG TAB PO SCH (09:10)
[2021-08-10] MEDS: VITAMIN B COMPLEX TAB PO SCH ×2 (09:11→19:58)
[2021-08-10] MEDS: predniSONE 5 MG TAB PO SCH (09:11)
[2021-08-10] MEDS: cycloSPORINE (SANDIMMUNE) 25 MG CAP PO SCH ×2 (09:19→19:59)
[2021-08-10] MEDS: PATIROMER CALCIUM SORBITEX 8.4 GM PACK PO SCH (09:36)
[2021-08-10] MEDS: LOSARTAN POTASSIUM 50 MG TAB PO SCH (12:11)
--- NOTE | 2021-08-10 12:39 | Nephrology Progress Note ---
Date of Service August 10, 2021 Assessment & Plan (1) Acute on chronic renal failure: (2) Rhabdomyolysis: (3) History of renal transplant: Plan: [place] with advanced CKD with h/o renal transplant. [place] possibly secondary to statin induced rhabdomyolysis. Renal function slightly improved, electrolyte acceptable. CPK improved to 3.6K, Blood pressure, has been off of IV fluid since this morning. --Ok to restart on Losartan --start on Venofer --monitor off of IV fluid, encouraged po intake. --if renal function and electrolyte acceptable, possible DC tomorrow. Will follow Admission and Anticipated Discharge Date Admission Date: August 05, 2021 Subjective Kirby was Seen and evaluated this morning. Overall he is feeling better, denies shortness of breath or chest pain. Reports worsening of neuropathy pain with lower dose of gabapentin currently on 300 twice a day. Has been having decent urine output overall net negative. Renal function slightly improved creatinine down to 3.1, CPK down to 3600. Review of Systems Review of Systems: detailed review of system was otherwise unremarkable. Results & Data ([facility]) Vital Signs (Past 12 Hours) Vital Signs Temp Pulse Pulse Resp BP Pulse Ox 08/10/21 08:49 66 170/90 H 08/10/21 07:37 36.4 C L 70 22 188/89 H 98 PG Care Time/CCT Total # of Minutes Spent Total Time Spent with Patient: Total time spent is greater than 50% in coordination of care (as documented) at patient's floor/unit and/or counseling patient: Coding Level of Care Code 67923 Subseq Hosp Care Lvl 3 Diagnoses Acute on chronic renal failure N17.9; N18.9 Acute renal failure type: unspecified Rhabdomyolysis M62.82 Rhabdomyolysis type: non-traumatic History of renal transplant Z94.0 (1) Acute on chronic renal failure Acute renal failure type: unspecified (2) Rhabdomyolysis Rhabdomyolysis type: non-traumatic Qualified Code(s): M62.82 - Rhabdomyolysis
[2021-08-10] MEDS: IRON SUCROSE 300 MG in SODIUM CHLORIDE 0.9% 250 ML IV SCH (13:51)
[2021-08-10] MEDS ORDERED: WARFARIN SOD 5 MG TAB PO SCH (16:00)
[2021-08-10] MEDS: TAMSULOSIN HCL 0.4 MG CAP PO SCH (19:57)
--- NOTE | 2021-08-11 05:50 | Hospitalist Progress Note ---
Date of Service August 11, 2021 Assessment & Plan (1) Rhabdomyolysis: Plan: Mr. Prado is 60M with focal glomerular sclerosis s/p renal transplant in 2019, CRI, HTN, HLD, FARNAZ, recurrent DVTs, neuropathy, sarcoidosis, and venous stasis. He was admitted to the hospital with week-long progressive muscle pain suggestive of rhabdomyolysis alongside concurrent pigment nephropathy/LORENZO -- thankfully showing signs of improvement following aggressive hydration. 1) Rhabdomyolysis -- with marked improvement since arrival - Presented with CK >30,000 and tea colored urine alongside diffuse muscle pain - Etiology unknown but concerning for medication-induced etiology (on statin and cyclosporine) given otherwise negative myositis/rheumatologic work-up - CPK continuing to downtrend with improving renal function -- today noted at 1440 - Appreciate nephro recs: Promote PO intake. Discontinue IVF. Monitor CPK/LFTs/BMP. 2) Pigment Nephropathy / [id number] -- presented with Cr 4.3 (baseline ~3) - Likely secondary to pigment nephropathy and dehydration in setting of rhabdomyolysis - Significant improvement in BUN/Cr/eGFR since arrival with aggressive hydration -- creatinine at discharge [] - CT-A/P (08/05): atrophic [place] kidneys, transplant renal allograft negative for hydronephrosis and bladder nml - Appreciate neprhology recommendations: resume losartan, hold furosemide, continue decreased gabapentin to 300mg po BID for renal dosing. - Hx of renal transplant: continue immunosuppressive regimen of cyclosporin, mycophenolate, prednisone - As patient was net 4L in volume, was provided Furosemide 40mg IV BID x3 doses during admission -- has diuresed approx. 2L since that time - Hold on further diuretics at this time - Will require f/u CMP within 1-3 days of discharge 3) Normocytic Anemia - Hgb persistently between 9-10 since admission - Started Venofer per Nephrology recommendations - Follow-up with CBC 4) Mechanical Fall; acute 3/10 night- fell while using bathroom-- did not hit head. Complains of chest/abdominal pain and bruising. - CXR showed no acute fractures - Tylenol PRN, can use oxycodone 5mg TID PRN for further pain control - Utilize lidocaine patch - Fall precautions - Trend H&H - With pain with deep inspiration, added Incentive Spirometry QID to promote reduction in atelectasis 5) Transaminitis -- improving - Notable for AST 553 and ALT 263 on admission, GGT 11 - Likely secondary to rhabdomyolysis - LFTs improving with hydration / resolving rhabdo - Secondary w/u: Monospot, CMV, HCV, HBsAg, HBcAg, HAV IgM -- all negative - Will require CMP within 1-3 days of discharge 6) History of Covid-19 -- asymptomatic since admission, no e/o complication - Patient is Covid-19 vaccinated x2 plus booster. - Covid positive twice: 08/2020, 07/2021. Was more sedentary/isolating prior to muscle weakness and hospital presentation - Covid test negative 08/05 7) History of Recurrent DVTs / Supratherapeutic INR - Per chart, prescribed Warfarin dosinmg MWF and 7.5mg TuThSaSu - Note: Patient notes that he has only been taking the 7.5mg Warfarin dosage for a few weeks [employer] and has not been taking the 10mg dose. - INR above goal at 3.1 despite reduction in warfarin dosing to 6mg - Since further reduction of warfarin dose to 5mg, INR noted to be [] - Continue to monitor Hgb level with recent fall while on Warfarin - Consider DC on 7.5mg daily with close INR checks - Will require INR check within 1-3 days of discharge 8) Hypertension - Resumed home Losartan (initially held while here) DVT ppx: warfarin FEN/GI: Dialysis Renal Diet, NSS 100ml/hr Code Status: Full Code Dispo: Med/Surg Admission and Anticipated Discharge Date Admission Date: August 05, 2021 Results & Data Results & Data ([facility]) Vital Signs (Past 12 Hours) Vital Signs Temp Pulse Resp BP Pulse Ox 08/10/21 20:43 37.1 C 72 18 168/84 H 99 Resident Activity Tracking Resident Involvement: Resident Care Provided Care Provided: Adult Hospital Medicine (1) Rhabdomyolysis Rhabdomyolysis type: non-traumatic Qualified Code(s): M62.82 - Rhabdomyolysis
[2021-08-11 05:58] LABS: Hemoglobin 8.8 g/dL (14.0-18.0); Mean Corpuscular Hemoglobin 30.4 pg (25-34); Mean Corpuscular Hgb Conc 32.6 g/dL (32-36); Mean Corpuscular Volume 93.4 fL (80-100); Mean Platelet Volume 10.6 fL (7.4-10.4); Platelet Count 195 K/uL (130-400); RDW Coefficient of Variation 14.7 % (11.5-14.5); RDW Standard Deviation 49.8 fL (36.4-46.3); Red Blood Count 2.89 M/uL (4.7-6.1); White Blood Count 6.45 K/uL (4.8-10.8)
[2021-08-11 06:10] LABS: Prothrombin Time 30.1 Seconds (9.0-12.0)
[2021-08-11 06:28] LABS: Albumin Level 3.7 gm/dl (3.4-5.0); BUN Creatinine Ratio 19.1 (10-20); Creatinine Clr Calc Pharmacy 32.9 ml/min; Est GFR (African American) 22.4 ml/min; Est GFR (Non-African American) 19.4 ml/min; Phosphorus 3.8 mg/dl (2.5-4.9); Potassium 4.1 mmol/L (3.5-5.1)
--- NOTE | 2021-08-11 06:46 | Discharge Summary ---
Date of Service August 11, 2021 Admission HPI Per Admitting Provider 60 YOM with past medical history of: Focal glomerular sclerosis, Renal transplant (2019), CRI, HTN, HLD, Obesity, FARNAZ, DVT in left lower leg (on Coumadin), peripheral neuropathy and venous stasis, COVID 4/, who has been persistently positive with covid RNA and negative with antibiody testing PT refered for about one week of progressive large muscle pain and weakness, initially all large muscles were painful and felt still, now has trouble lifting legs to step up curbs or go up stairs, has to move legs with arms to get out of car, has no altered sensation over his usual peripheral neuropathy, he has no change in reflexes of back pain or radicular pain. His thigh and calf muscles are tender to exam that is different than his chronic neuropathy He has had persistent loose bowel since his more recent "re infection " with covid this July, with daily loose bowel movements and he feels he has not been able to keep up with his hydration. His labs reflect LORENZO, elevated CK to 30,000 range and elevated liver transaminases to 800/300 ast/alt. He is chronically on statins and ssri, his most recent cyclosporin level was with in normal limits Admission Exam Per Admitting Provider The patient appeared well nourished and normally developed. Vital signs as documented. Head exam is normocephalic atraumatic Neck is without JVD, thyromegaly, or carotid bruits. Lungs areclearto auscultation, no focal loss of breath sounds Cardiac exam, Rhythm is regular.. No murmurs, rubs or gallops. Abdominal exam reveals normal bowel sounds, soft non tender, no masses, no RUQ tenderness Extremities aretr-1+ edematous and both pedal pulses are present Neurologic exam is alert and oriented, can only lift legs off bed for breif time, reflexes are intact and sensation is subjectively the same with his history of neuropathy Skin is without bruises or rashes Psychologically is without concerns for anxiety or depression.. Principal Diagnosis Rhabdomyolysis Pigment nephropathy Discharge Exam General: 60yoM in NAD. HEENT: NCAT. Cardiac: Normal rate and regular rhythm; S1 and S2 present with no murmurs, rubs, or gallops. Pulmonary: Good respiratory effort with symmetric expansion of the chest. No use of accessory muscles. Lungs were clear to auscultation bilaterally with no crackles or wheezes. Extremities: Upper and lower extremities are warm and well perfused. Radial and dorsalis pedis pulses were 2+ b/l. Discharge Data Allergies Allergy/AdvReac Type Severity Reaction Status Date / Time allopurinol Allergy Unknown Rash Verified 08/05/21 21:32 Penicillins Allergy Unknown Unknown Verified 08/05/21 21:32 hydromorphone [From Dilaudid] AdvReac Severe confusion Verified 08/05/21 21:32 Consultations 08/05/21 20:37 ED Decision to Admit Stat 08/05/21 23:05 Consult Nephrology Routine Ordered Studies 08/05/21 20:35 CT abd pelvis wo con Urgent 1. Atrophic ambler kidneys with an unremarkable renal transplant. This remains unchanged. 2. No definite bowel wall thickening or obstruction. 3. Chronic granulomatous disease again noted within the lower chest. 4. Mild asymmetric thickening within the left rectus abdominis muscle which is improved compared to prior study. This could represent a small residual chronic rectus sheath hematoma. Hospital Course (1) Rhabdomyolysis: Mr. Prado is 60M with focal glomerular sclerosis s/p renal transplant in 2019, CRI, HTN, HLD, FARNAZ, recurrent DVTs, neuropathy, sarcoidosis, and venous stasis. He was admitted to the hospital with week-long progressive muscle pain suggestive of rhabdomyolysis alongside concurrent pigment nephropathy/LORENZO -- thankfully showing signs of improvement following aggressive hydration. 1) Rhabdomyolysis -- with marked improvement since arrival - Presented with CK >30,000 and tea colored urine alongside diffuse muscle pain - Etiology unknown but concerning for medication-induced etiology (on statin and cyclosporine) given otherwise negative myositis/rheumatologic work-up - CPK continuing to downtrend with improving renal function -- today noted at 1440 - Appreciate nephro recs: Promote PO intake. Discontinue IVF. Monitor CPK/LFTs /BMP. 2) Pigment Nephropathy / [id number] -- presented with Cr 4.3 (baseline ~3) - Likely secondary to pigment nephropathy and dehydration in setting of rhabdomyolysis - Significant improvement in BUN/Cr/eGFR since arrival with aggressive hydration -- creatinine at discharge 3.4 - CT-A/P (08/05): atrophic ambler kidneys, transplant renal allograft negative for hydronephrosis and bladder nml - Appreciate nephrology recommendations: resume losartan, hold furosemide, continue decreased gabapentin to 300mg po BID for renal dosing. - Hx of renal transplant: continue immunosuppressive regimen of cyclosporin, mycophenolate, prednisone - As patient was net 4L in volume, was provided Furosemide 40mg IV BID x3 doses during admission -- has diuresed approx. 2L since that time - Hold on further diuretics at this time - Will require f/u CMP within 1-3 days of discharge 3) Normocytic Anemia - Hgb persistently between 9-10 since admission - Received IV iron x 1 per nephrology recommendations - Follow-up with CBC 4) Mechanical Fall; acute -- 08/07 night- fell while using bathroom-- did not hit head; complains of chest/abdominal pain and bruising - CXR showed no acute fractures - Pain control utilized while here (Tylenol/oxycodone) - Utilize lidocaine patch, incentive spirometry 5) Transaminitis -- improving - Notable for AST 553 and ALT 263 on admission, GGT 11 - Likely secondary to rhabdomyolysis - LFTs improving with hydration / resolving rhabdo - Secondary w/u: Monospot, CMV, HCV, HBsAg, HBcAg, HAV IgM -- all negative - Will require CMP within 1-3 days of discharge 6) History of Covid-19 -- asymptomatic since admission, no e/o complication - Patient is Covid-19 vaccinated x2 plus booster. - Covid positive twice: 08/2020, 07/2021. Was more sedentary/isolating prior to muscle weakness and hospital presentation - Covid test negative 08/05 7) History of Recurrent DVTs / Supratherapeutic INR - Per chart, prescribed Warfarin dosinmg MWF and 7.5mg TuThSaSu - Note: Patient notes that he has only been taking the 7.5mg Warfarin dosage for a few weeks [employer] and has not been taking the 10mg dose. - INR above goal at 3.1 despite reduction in warfarin dosing to 6mg - Since further reduction of warfarin dose to 5mg, INR at discharge noted to be 3.0 - Continue to monitor Hgb level with recent fall while on Warfarin - Consider DC on 7.5mg daily with close INR checks - Will require INR check within 1-3 days of discharge 8) Hypertension - Resumed home Losartan (initially held while here) - Hold Lasix on discharge - consider re-initiation pending repeat BMP Code: Patient identifies as FULL CODE Total Time Total Time Spent Total Time Spent (In Minutes): <30 Discharge Plan Discharge Items Patient Disposition: Home - Self-Care Reason For Visit: ACUTE ON CHRONIC RENAL FAILURE, RHABDOMYOLYSIS, Discharge Diagnosis: Rhabdomyolysis Pigment nephropathy Activity: Per Instructions section Non-emergency contact: Primary Care Provider Call non-emergency contact if: your symptoms worsen, your pain is worsening and your temperature is above 101 Follow-up/Referrals: Vinicius Ng MD [Primary Care Provider] - 08/22/21 10:30 am Diet: Regular Ambulatory Orders: Comprehensive Metabolic Panel (Routine) Timeframe: 5 Days Location: Determined by Patient Ordered By: Anibal Velarde Prothrombin Time INR (Routine) Timeframe: 5 Days Location: Determined by Patient Ordered By: Anibal Velarde Addtl Attending Provider Instructions: You were seen in [facility] for evaluation of muscle pain. Upon your arrival here, you underwent several tests to determine the cause of this pain. You were discovered to have labs consistent with significant levels of muscle breakdown, as well as signs of kidney stress. Nephrology, the kidney specialist, were consulted to aid with your care. He received aggressive hydration with IV fluids, and thankfully demonstrated significant improvement in your kidney function. The laboratories used to measure muscle breakdown also decreased. You had a lab panel to try and determine whether or not there were any immune related causes for your muscle breakdown; however, these all came back negative. At this time, your muscle breakdown is suspected to be secondary to medication use, possibly your statin. Please note the following medication additions/changes/removals: Discontinue simvastatin (thought to be the potential cause of the muscle breakdown) Resume warfarin at 7.5mg daily (please obtain INR within next 1-3 days) In the hospital, you were transitioned to gabapentin 300mg twice daily (AM/PM) given your kidney function; you may increase this to 300mg in the AM and 600mg in the evening and speak with your PCP about further dosage increases Hold Lasix at discharge -- talk with your PCP when this would be appropriate to resume Please follow-up with your primary care physician within 1 week to review this visit. Further, a nephrology follow-up will be arranged for you upon discharge. If you haven't heard back regarding this appointment by Wednesday, please call [phone] to schedule. Please also obtain repeat kidney and INR levels within the next 1 to 3 days (an order will be provided for you to take to the lab). In the interim, if you experience any worsening muscle pain, shortness of breath, fevers, chills, night sweats, chest pain, inability to move any of your muscles, or any other worrisome symptoms, please report to the emergency room for immediate evaluation. It was a pleasure for caring for you while you are here, and we wish you all the best in your recovery. Pending Studies at Discharge: No Stand-Alone Forms: My [facility], Smoking Cessation Medications and DC Order Prescriptions: New warfarin [Jantoven] 7.5 mg Tablet 7.5 mg PO DAILY 30 Days Qty: 30 RF: 0 Continued losartan 100 mg tablet 100 mg PO QAM Qty: 90 RF: 3 omeprazole 40 mg capsule,delayed release(DR/EC) 40 mg PO QAM Qty: 90 RF: 3 gabapentin [Neurontin] 300 mg capsule See Rx Instructions PO HS Qty: 630 RF: 3 vitamin B complex [B Complex-Vitamin B12] Tablet 1 tab PO BID RF: 0 mycophenolate mofetil [CellCept] 250 mg capsule 1,000 mg PO BID RF: 0 febuxostat [Uloric] 80 mg tablet 80 mg PO QAM RF: 0 aspirin [Adult Low Dose Aspirin] 81 mg tablet,delayed release (DR/EC) 81 mg PO QAM RF: 0 tamsulosin [Flomax] 0.4 mg capsule 0.4 mg PO HS RF: 0 docusate sodium [Colace] 100 mg capsule 100 mg PO BID PRN (Reason: Constipation) RF: 0 multivitamin [Daily Multi-Vitamin] tablet 1 tab PO QAM RF: 0 cholecalciferol (vitamin D3) 1,000 unit capsule 1,000 units PO QAM RF: 0 prednisone 5 mg tablet 5 mg PO QAM RF: 0 cyclosporine 100 mg capsule 150 mg PO BID RF: 0 duloxetine 20 mg capsule,delayed release(DR/EC) 60 mg PO DAILY RF: 0 magnesium oxide 400 mg magnesium capsule 800 mg PO BID RF: 0 albuterol sulfate 90 mcg/actuation HFA aerosol inhaler 2 inha INH Q6H PRN (Reason: shortness of breath or wheezing) Qty: 1 RF: 0 ferrous sulfate [iron] 325 mg (65 mg iron) Tablet 325 mg PO DAILY RF: 0 Discontinued simvastatin 40 mg tablet 40 mg PO HS Qty: 90 RF: 3 V-Inan-Svvgedq 250 mg tablet 2 tab PO BID RF: 0 furosemide [Lasix] 40 mg tablet 60 mg PO QAM Qty: 135 RF: 3 warfarin 5 mg tablet 5 mg PO UD RF: 0 Discharge Orders: Discharge Order (Routine); Ordered 08/11/21 Ordered By: Anibal Velarde Admission Data Admit Date/Time: 08/05/21 21:06 Attending Provider: Anibal Mendoza Admit Provider: Mark Perez Primary Care Provider: Vinicius Ng Other Providers: Saul Thornton ; Mark Perez Other Interventions: Discharge Summary Assessment (RN) Last Done: 08/11/21 12:15 Supervising Physician Co-Signing Physician Notes I personally examined the patient and verified all bunch points of history and exam, discussed case, and agree with decision making with Dr Velarde feeling ok really wants to go home no new complaints vitals noted nad heent nc at mmm breathing unlabored no accessory muscles good effort skin no rashes no pallor or icterus rhabdomyolysis/LORENZO on CKD - now improved. ?statin related. stable for home. otherwise as above Resident Activity Tracking Resident Involvement: Resident Care Provided Care Provided: Adult Hospital Medicine
[2021-08-11] MEDS: CHOLECALCIFEROL 1,000 UNITS 25 MCG TAB PO SCH (07:38)
[2021-08-11] MEDS: GABAPENTIN 300 MG CAP PO SCH (07:39)
[2021-08-11] MEDS: cycloSPORINE (SANDIMMUNE) 25 MG CAP PO SCH (07:39)
[2021-08-11] MEDS: cycloSPORINE 100 MG CAP PO SCH (07:39)
[2021-08-11] MEDS: PANTOprazole 40 MG TAB PO SCH (07:40)
[2021-08-11] MEDS: LOSARTAN POTASSIUM 50 MG TAB PO SCH (07:40)
[2021-08-11] MEDS: LIDOCAINE 5% 1 PATCH TD SCH (07:40)
[2021-08-11] MEDS: VITAMIN B COMPLEX TAB PO SCH (07:40)
[2021-08-11] MEDS: predniSONE 5 MG TAB PO SCH (07:40)
[2021-08-11] MEDS: MYCOPHENOLATE MOFETIL 250 MG CAP PO SCH (07:41)
[2021-08-11] MEDS: PATIROMER CALCIUM SORBITEX 8.4 GM PACK PO SCH (07:41)
[2021-08-11] MEDS: ACETAMINOPHEN 500 MG TAB PO PRN (07:45)
[2021-08-11] MEDS: IRON SUCROSE 300 MG in SODIUM CHLORIDE 0.9% 250 ML IV SCH (11:14)
--- NOTE | 2021-08-11 12:10 | Nephrology Progress Note ---
Date of Service August 11, 2021 Assessment & Plan (1) Acute on chronic renal failure: (2) Rhabdomyolysis: (3) History of renal transplant: Plan: Marley with advanced CKD with h/o renal transplant. MARLEY possibly secondary to statin induced rhabdomyolysis. Renal function slightly improved, electrolyte acceptable. CPK improved to 3.6K, Blood pressure, has been off of IV fluid since this morning. Slight change in creatinine to 3.3, most likely hemodynamically mediated with restarting on losartan. Blood pressure improved, electrolyte, volume status acceptable. --Continue on Losartan --Advised to keep well hydrated, avoid all NSAIDs. Keep off of statin on disch arge. Continue to hold diuretics on discharge. --okay to discharge with close outpatient lab monitoring, place check renal panel Wednesday and then weekly, send labs to Dr. Aguilera. will try to set up ou tpatient follow-up with Dr. Aguilera in next 2 weeks Will follow Admission and Anticipated Discharge Date Admission Date: August 05, 2021 Sandy Vasquez was seen and evaluated this morning. Overall he is feeling well, denies any acute symptoms or concerns except persistent Rib pain specially with movement or coughing. blood pressure improved. Slight change in creatinine to 3.3, electrolyte acceptable. Volume status acceptable. Review of Systems Review of Systems: detailed review of system was otherwise unremarkable. Physical Exam Constitutional: WD/WN, vitals as above no acute distress Eyes: + anicteric sclerae Neck: normal visual inspection Respiratory: no respiratory distress Auscultation: lungs clear to auscultation bilaterally Cardiovascular: Rate/Rhythm: regular rate and regular rhythm Heart Sounds: normal S1 and normal S2 Extremities: no edema Skin: no rashes Neurologic: no focal motor deficits Psychiatric: Orientation: alert and oriented x 3 Results & Data ([facility]) Vital Signs (Past 12 Hours) Vital Signs Temp Pulse Resp BP Pulse Ox 08/11/21 11:17 36.7 C 70 18 152/68 H 98 08/11/21 07:50 36.7 C 70 16 170/88 H 97 PG Care Time/CCT Total # of Minutes Spent Total Time Spent with Patient: Total time spent is greater than 50% in coordination of care (as documented) at patient's floor/unit and/or counseling patient: Coding Level of Care Code 46170 Subseq Hosp Care Lvl 3 Diagnoses Acute on chronic renal failure N17.9; N18.9 Acute renal failure type: unspecified Rhabdomyolysis M62.82 Rhabdomyolysis type: non-traumatic History of renal transplant Z94.0 (1) Acute on chronic renal failure Acute renal failure type: unspecified (2) Rhabdomyolysis Rhabdomyolysis type: non-traumatic Qualified Code(s): M62.82 - Rhabdomyolysis
--- NOTE | 2021-08-11 13:11 | Billing Data ---
Date of Service August 11, 2021 Coding Level of Care Code D/C DAY MANAGEMENT <30 MINS
--- NOTE | 2021-08-15 08:41 | Coding Query ---
CHRONIC KIDNEY DISEASE To promote full compliance with coding requirements relating to patient care, physician participation is requested in all cases of rn lactation consultant uncertainty. Please assist us with the question(s) below: Coding Question(s): The record reflects the following clinical findings: Please specify the known or suspected type by placing an "X" within the parenthesis (x). If other, please document type. Please document Staging if known: ( ) Stage I >90 Kidney damage with normal or elevated GFR. ( ) Stage II 60-89 Kidney damage with mildly decreased kidney function ( x) Stage III 30-59 Moderately decreased kidney function ( ) Stage IV 15-29 Severely decreased kidney function ( ) Stage V <15 Renal failure (or dialysis) ( ) End Stage ( ) Unknown Thank you Mary SHAFER
== END 2021-08-11 14:10 | disposition home or self-care (01) | DRG 558 ==
LOC: ED 19:21 → SUATTDRO 21:06 → 3E 21:06

== ENCOUNTER 2021-08-24 20:47 | Inpatient (IN) ==
[2021-08-24 21:44] LABS: Basophils # (auto) 0.03 K/uL (0-0.2); Basophils % (auto) 0.4 %; Eosinophils # (auto) 0.13 K/uL (0-0.5); Eosinophils % (auto) 1.9 %; Hematocrit (blood only) 28.5 % (42-52); Hemoglobin 8.8 g/dL (14.0-18.0); Immature Granulocytes # (auto) 0.02 K/uL (0.00-0.02); Immature Granulocytes % (auto) 0.3 %; Lymphocytes # (auto) 0.49 K/uL (1.2-3.4); Mean Corpuscular Hemoglobin 29.9 pg (25-34); Mean Corpuscular Hgb Conc 30.9 g/dL (32-36); Mean Corpuscular Volume 96.9 fL (80-100); Mean Platelet Volume 10.1 fL (7.4-10.4); Monocytes # (auto) 0.15 K/uL (0.11-0.59); Monocytes % (auto) 2.1 %; Neutrophils # (auto) 6.17 K/uL (1.4-6.5); Neutrophils % (auto) 88.3 %; Platelet Count 278 K/uL (130-400); RDW Coefficient of Variation 15.3 % (11.5-14.5); RDW Standard Deviation 53.7 fL (36.4-46.3); Red Blood Count 2.94 M/uL (4.7-6.1); White Blood Count 6.99 K/uL (4.8-10.8)
[2021-08-24 21:53] LABS: Prothrombin Time 30.3 Seconds (9.0-12.0)
[2021-08-24 21:55] LABS: Albumin Globulin Ratio 1.7 (0.9-2); Albumin Level 4.1 gm/dl (3.4-5.0); BUN Creatinine Ratio 17.4 (10-20); Bilirubin,Total 0.8 mg/dl (0.2-1.0); Calcium 9.4 mg/dl (8.5-10.1); Creatinine Clr Calc Pharmacy 25.8 ml/min; Est GFR (African American) 16.8 ml/min; Est GFR (Non-African American) 14.5 ml/min; Globulin 2.4 gm/dl (2.5-4.0); Magnesium 2.4 mg/dl (1.7-2.4); Potassium 5.5 mmol/L (3.5-5.1); Total Protein 6.5 gm/dl (6.0-8.3)
--- NOTE | 2021-08-24 23:08 | Emergency Department Note ---
History of Present Illness General Chief complaint: Leg Injury/Pain Stated complaint: SEVERE PAIN IN L LEG, SWELLING, CAN'T SIT Time Seen by Provider: 08/24/21 21:11 Source: patient Mode of arrival: ambulatory Limitations: no limitations History of Present Illness Provider complaint: Left leg pain and swelling Onset (ago): day(s) 1 Location: lower extremity Radiation: proximal Pain Consistency: + colicky Maximum Pain Intensity: 10 Exacerbated By: + movement Associated symptoms: + denies other symptoms Treatments prior to arrival: other This is a 60-year-old male with a complicated past medical history including recent admission for rhabdomyolysis who presents with left lower extremity pain and swelling. Patient does have chronic intermittent lower extremity edema and does typically take Lasix every other day. He states when he was admitted they have stopped his Lasix as they felt he needed hydrated. He states through the course of that he began retaining more fluid and on Wednesday this week he resumed taking his usual dose of Lasix at 60 mg. He states he has not had a dose since. He states upon taking that he did lose 6 pounds of water weight and legs seem to return to what is usually his norm. He states his left lower extremity is typically more chronically swollen than his right due to prior inj ury and surgery. Patient states he did have a mild fall at home last week and he did hit his ankle although he has been walking on it since then without difficulty. Patient does have lower extremity neuropathy which is unchanged. Patient states yesterday he began noting increased swelling in the lower extremities again, left greater than right, and today had worsening pain. He states the pain is worse when he first stands up and begins walking however it does ease slightly the further he walks on it. Patient denies any new trauma or injury, denies any specific joint swelling. Patient states he does have chronic problems with his left hip although does not note any worsening pain to the left hip or low back. He denies fevers, chills, chest pain or trouble breathing. Patient does have chronic kidney disease and history of a kidney transplant. Patient is chronically anticoagulated and states his last INR was slightly high at 3.1. Pt seen during a time of high acuity and national emergency pandemic while wearing PPE. Home Medications Medication Instructions Recorded Confirmed Type aspirin 81 mg tablet,delayed 81 mg PO QAM 04/24/19 08/24/21 History release (Adult Low Dose Aspirin) cholecalciferol (vitamin D3) 25 1,000 units PO QAM 04/24/19 08/24/21 History mcg (1,000 unit) capsule docusate sodium 100 mg capsule 100 mg PO BID PRN 04/24/19 08/24/21 History (Colace) multivitamin (Daily Multi-Vitamin) 1 tab PO QAM 04/24/19 08/24/21 History tamsulosin 0.4 mg capsule (Flomax) 0.4 mg PO HS 04/24/19 08/24/21 History prednisone 5 mg tablet 5 mg PO QAM tab 05/29/19 08/24/21 History mycophenolate mofetil 250 mg 1,000 mg PO BID cap 02/20/20 08/24/21 History capsule (CellCept) febuxostat 80 mg tablet (Uloric) 80 mg PO QAM 03/06/20 08/24/21 History losartan 100 mg tablet 100 mg PO QAM #90 tab 11/04/20 08/24/21 Rx albuterol sulfate 90 mcg/actuation 2 inha INH Q6H PRN #1 inhaler 04/06/21 08/24/21 Rx aerosol inhaler omeprazole 40 mg capsule,delayed 40 mg PO QAM #90 cap 04/29/21 08/24/21 Rx release cyclosporine 100 mg capsule 150 mg PO BID cap 06/16/21 08/24/21 History duloxetine 20 mg capsule,delayed 60 mg PO QAM cap 06/16/21 08/24/21 History release magnesium oxide 800 mg PO BID cap 06/16/21 08/24/21 History ferrous sulfate 325 mg (65 mg 325 mg PO BID 08/05/21 08/24/21 History iron) tablet (iron) gabapentin 300 mg capsule See Rx Instructions PO HS cap 08/22/21 08/24/21 History (Neurontin) acetaminophen 500 mg tablet 1,000 mg PO QID PRN 08/24/21 08/24/21 History (Tylenol Extra Strength) warfarin 7.5 mg tablet (Jantoven) 7.5 mg PO QDD 08/24/21 08/24/21 History Allergies Allergy/AdvReac Type Severity Reaction Status Date / Time allopurinol Allergy Unknown Rash Verified 08/24/21 22:01 Penicillins Allergy Unknown Unknown Verified 08/24/21 22:01 hydromorphone [From Dilaudid] AdvReac Severe confusion Verified 08/24/21 22:01 Past Med/Surg History Medical History (Updated 08/27/21 @ 04:32 by Natalie Howard DO) AV fistula LEFT WRIST> NO DIALYSIS CURRENTLY> FISTULA STILL WORKS PER PT DVT (deep venous thrombosis) Right- 04/2019 following transplant > Coumadin S/P LEFT LEG SURGERY (EXCISION OF MELANOMA LEFT LEG) 10 YEARS AGO. End stage renal disease follows Dr. Aguilera and transplant team at [facility] Family history of blood clots Gout History of basal cell carcinoma History of malignant melanoma of skin Hypertension Influenza A Nephrolithiasis Pneumonia due to COVID-19 virus Rectus sheath hematoma Sarcoidosis Umbilical hernia Venous insufficiency Venous stasis dermatitis Surgical History (Updated 08/27/21 @ 04:32 by Natalie Howard DO) H/O colonoscopy History of cardiac cath 01/[address] [facility] > NO STENTS History of melanoma excision left calf History of tonsillectomy History of tooth extraction Kidney transplanted APR 04, 2019 > [facility] > right side Family History Mother Stroke Heart disease Grandmother Cancer Other Lung disease Social History Smoking Status: Never smoker Second Hand Exposure: No; Hx Alcohol Use: No Hx Substance Use: No Preferred Language: Danish Communication Ability: Effective Home Health Travel Ot Required: No Beliefs That Will Affect Care: None marital status: Current Living Situation: Spouse Current Living Situation Comment: spouse, sister, son current occupational status: employed current occupation: [employer] How many Children do You have: 1 Feels Safe at Home: Yes Assistive Devices: Walker Review of Systems A total of 10 systems reviewed and were otherwise negative All systems reviewed & are unremarkable except as noted in HPI & below Physical Exam Vital Signs Vital Signs - 24 hr 08/24/21 20:51 08/24/21 21:00 08/25/21 01:47 Temperature 36.8 C Temperature Source Oral Pulse Rate 87 Pulse Rate [Finger] 70 Pulse Rhythm [Finger] Regular Respiratory Rate 18 14 Respiratory Effort / Characteristics Non-Labored Spontaneous Non-Labored Respiratory Depth Normal Normal Normal Respiratory Pattern Regular Blood Pressure 118/68 Blood Pressure [Right Arm] 140/79 Blood Pressure Mean 84 Blood Pressure Mean [Right Arm] 99 Blood Pressure Position Sitting Blood Pressure Position [Right Arm] Lying Pulse Oximetry 100 97 Oxygen Delivery Method Room Air Room Air Sepsis Recent Fever Within 48 Hours No Sepsis New/Unexplained Change in Mental Status No Sepsis Action Taken by Nursing No Action Required GENERAL: alert, well appearing, well nourished, no distress, non-toxic EYE EXAM: normal conjunctiva, PERRL and EOM's grossly intact OROPHARYNX: no exudate, no erythema, lips, buccal mucosa, and tongue normal and mucous membranes are moist NECK: supple, no nuchal rigidity, no adenopathy, non-tender LUNGS: Clear to auscultation. Normal chest wall mechanics, no w/r/r HEART: no murmurs, S1 normal and S2 normal ABDOMEN: abdomen soft, non-tender, protuberant, normo-active bowel sounds, no masses, no rebound or guarding. BACK: Back is symmetrical on inspection and there is no deformity, no midline tenderness, no CVA tenderness. SKIN: no rashes and no bruising UPPER EXTREMITIES: upper extremities are grossly normal. FROM, nml pulses b/l. LOWER EXTREMITIES: 2+ L>R pitting edema. FROM, nml pulses b/l. Chronic dermatitis and venous stasis changes noted bilateral distal lower extremities particularly over the pretibial region, scar noted over the left calf in the area where patient states he had an excision of a melanoma lesion. No joint effusions bilaterally, pulses intact with normal cap refill and evidence of good perfusion distally. There are 2 areas of a palpable mass or ropiness noted a long the medial aspect one just distal to the left knee and the other one more in the mid proximal medial area of the left lower extremity. NEURO EXAM: Normal sensorium, cranial nerves II-XII grossly intact, normal speech, no gross weakness of arms, no gross weakness of legs. Gross sensation intact. Course Course 0045: Patient updated on results and significant delay in ultrasound imaging by outside radiology group. Upon additional discussion of the patient's increased creatinine this evening compared to prior, he admits to decreased water intake today as it was painful for him to walk to the bathroom. 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 Administered Medications Aspirin (Aspirin 81 Mg Ectab) 81 mg PO QAM [facility] Stop: 09/24/21 08:59 Last Admin: 08/26/21 11:00 Dose: 81 mg Documented by: [id number] Admin: 08/25/21 08:22 Dose: 81 mg Documented by: [id number] Cyclosporine (Cyclosporine (Sandimmune) 25 Mg Cap) 150 mg PO BID [facility] Stop: 09/24/21 08:59 Last Admin: 08/26/21 20:18 Dose: 150 mg Documented by: [id number] Admin: 08/26/21 09:34 Dose: 150 mg Documented by: [id number] Admin: 08/25/21 21:21 Dose: 150 mg Documented by: [id number] Admin: 08/25/21 08:18 Dose: 150 mg Documented by: [id number] Duloxetine HCl (Duloxetine Hcl 60 Mg Cap) [facility] [place] Stop: 09/24/21 08:59 Last Admin: 08/26/21 09:36 Dose: 60 mg Documented by: [id number] Admin: 08/25/21 08:22 Dose: 60 mg Documented by: [id number] Gabapentin (Gabapentin 300 Mg Cap) 300 mg PO BID@0900,1400 [facility] Stop: 09/24/21 08:59 Last Admin: 08/26/21 14:29 Dose: 300 mg Documented by: [id number] Admin: 08/26/21 09:36 Dose: 300 mg Documented by: [id number] Admin: 08/25/21 14:51 Dose: 300 mg Documented by: [id number] Admin: 08/25/21 08:21 Dose: 300 mg Documented by: [id number] Gabapentin (Gabapentin 300 Mg Cap) 600 mg PO HS [facility] Stop: 09/24/21 20:59 Last Admin: 08/26/21 20:19 Dose: 600 mg Documented by: [id number] Admin: 08/25/21 21:20 Dose: 600 mg Documented by: [id number] Clindamycin Phosphate 600 mg/ (Dextrose) 54 mls @ 100 mls/hr IV Q8H [facility]; Protocol Stop: 09/01/21 17:29 Last Infusion: 08/27/21 01:44 Dose: 0 mls/hr Documented by: [id number] Admin: 08/27/21 01:11 Dose: 100 mls/hr Documented by: [id number] Infusion: 08/26/21 18:01 Dose: 0 mls/hr Documented by: [id number] Admin: 08/26/21 17:22 Dose: 100 mls/hr Documented by: [id number] Infusion: 08/26/21 10:49 Dose: 0 mls/hr Documented by: [id number] Admin: 08/26/21 09:45 Dose: 100 mls/hr Documented by: [id number] Infusion: 08/26/21 02:10 Dose: 0 mls/hr Documented by: [id number] Admin: 08/26/21 01:39 Dose: 100 mls/hr Documented by: [id number] Infusion: 08/25/21 20:02 Dose: 0 mls/hr Documented by: [id number] Admin: 08/25/21 18:18 Dose: 100 mls/hr Documented by: [id number] Mycophenolate Mofetil (Mycophenolate Mofetil 250 Mg Cap) 1,000 mg PO BID [facility] Stop: 09/24/21 08:59 Last Admin: 08/26/21 20:18 Dose: 1,000 mg Documented by: [id number] Admin: 08/26/21 09:37 Dose: 1,000 mg Documented by: [id number] Admin: 08/25/21 21:20 Dose: 1,000 mg Documented by: [id number] Admin: 08/25/21 08:21 Dose: 1,000 mg Documented by: [id number] Pantoprazole Sodium (Pantoprazole 40 Mg Tab) 40 mg PO QAM [facility] Stop: 09/24/21 08:59 Last Admin: 08/26/21 09:38 Dose: 40 mg Documented by: [id number] Admin: 08/25/21 08:22 Dose: 40 mg Documented by: [id number] Prednisone (Prednisone 5 Mg Tab) 5 mg PO QA [facility] Stop: 09/24/21 08:59 Last Admin: 08/26/21 09:38 Dose: 5 mg Documented by: [id number] Admin: 08/25/21 08:22 Dose: 5 mg Documented by: [id number] Tamsulosin HCl (Tamsulosin Hcl 0.4 Mg Cap) 0.4 mg PO [facility] Stop: 09/24/21 20:59 Last Admin: 08/26/21 20:18 Dose: 0.4 mg Documented by: [id number] Admin: 08/25/21 21:21 Dose: 0.4 mg Documented by: [id number] Warfarin Sodium (Warfarin Sod 7.5 Mg Tab) 7.5 mg PO DAILY@1600 [facility] Stop: 09/24/21 15:59 Last Admin: 08/26/21 17:12 Dose: 7.5 mg Documented by: [id number] Admin: 08/25/21 15:46 Dose: 7.5 mg Documented by: [id number] Discontinued Medications Lactated Ringer's (Lr) 250 mls @ 999 mls/hr IV .Q16M ONE Stop: 08/24/21 23:27 Last Infusion: 08/24/21 23:47 Dose: 0 mls/hr Documented by: [id number] Admin: 08/24/21 23:30 Dose: 999 mls/hr Documented by: [id number] Lactated Ringer's (Lr) 250 mls @ 999 mls/hr IV .Q16M ONE Stop: 08/25/21 01:04 Last Infusion: 08/25/21 01:22 Dose: 0 mls/hr Documented by: [id number] Admin: 08/25/21 01:04 Dose: 999 mls/hr Documented by: [id number] Acetaminophen (Ofirmev) 1,000 mg in 100 mls @ 400 mls/hr IV NOW STA Stop: 08/25/21 02:01 Last Infusion: 08/25/21 02:28 Dose: 0 mls/hr Documented by: [id number] Admin: 08/25/21 01:58 Dose: 400 mls/hr Documented by: [id number] Miscellaneous (Order Awaiting Action: Febuxostat [Uloric] 80 Mg Tablet) 1 ea N/A QS [facility] Stop: 09/24/21 07:59 Last Admin: 08/26/21 15:47 Dose: Not Given Documented by: [id number] Admin: 08/26/21 09:33 Dose: Not Given Documented by: [id number] Admin: 08/25/21 21:36 Dose: Not Given Documented by: [id number] Admin: 08/25/21 15:38 Dose: Not Given Documented by: [id number] Admin: 08/25/21 08:23 Dose: Not Given Documented by: [id number] Morphine Sulfate (Morphine Sulfate 4 Mg/Ml 1 Ml Carp\Vial) 4 mg IV NOW STA Stop: 08/25/21 01:48 Last Admin: 08/25/21 01:58 Dose: 4 mg Documented by: [id number] Medical Decision Making Differential Diagnosis Differential diagnosis includes etiology such as DVT, superficial thrombophlebitis, Wei's cyst, musculoskeletal strain, acute tendon rupture, infection, trauma, and others were considered. Medical Records Attestation: I reviewed the patient's medical records. Home Medications Current Medication List: was personally reviewed by me Laboratory Data Attestation: I reviewed the patient's lab results. Result diagrams: 08/26/21 07:14 08/26/21 07:14 Lab Results 08/24/21 08/24/21 08/24/21 Range/Units 21:20 21:20 21:20 WBC 6.99 (4.8-10.8) K/uL RBC 2.94 L (4.7-6.1) M/uL Hgb 8.8 L (14.0-18.0) g/dL Hct 28.5 L (42-52) % MCV 96.9 (80-100) fL MCH 29.9 (25-34) pg MCHC 30.9 L (32-36) g/dL RDW Std Deviation 53.7 H (36.4-46.3) fL RDW Coeff of Theresa 15.3 H (11.5-14.5) % Plt Count 278 (130-400) K/uL MPV 10.1 (7.4-10.4) fL Immature Gran % (Auto) 0.3 % Neut % (Auto) 88.3 % Lymph % (Auto) 7.0 % [place] % (Auto) 2.1 % Eos % (Auto) 1.9 % Baso % (Auto) 0.4 % Neut # (Auto) 6.17 (1.4-6.5) K/uL Lymph # (Auto) 0.49 L (1.2-3.4) K/uL [place] # (Auto) 0.15 (0.11-0.59) K/uL Eos # (Auto) 0.13 (0-0.5) K/uL Baso # (Auto) 0.03 (0-0.2) K/uL Immature Gran # (Auto) 0.02 (0.00-0.02) K/uL PT 30.3 H (9.0-12.0) Seconds INR 3.0 H (0.9-1.1) Sodium 136 (136-145) mmol/L Potassium 5.5 H (3.5-5.1) mmol/L Chloride 102 (98-107) mmol/L Carbon Dioxide 24 (21-32) mmol/L Anion Gap 10 (3-11) BUN 73 H (6-23) mg/dl Creatinine 4.20 H (0.6-1.4) mg/dl Est Cr Clr Drug Dosing 25.8 ml/min Est GFR ( Amer) 16.8 ml/min Est GFR (Non-Af Amer) 14.5 ml/min BUN/Creatinine Ratio 17.4 (10-20) Glucose 104 H (70-99(Fasting)) mg/dl Calcium 9.4 (8.5-10.1) mg/dl Phosphorus (2.5-4.9) mg/dl Magnesium 2.4 (1.7-2.4) mg/dl Total Bilirubin 0.8 (0.2-1.0) mg/dl AST 22 (13-39) U/L ALT 21 (7-52) U/L Alkaline Phosphatase 115 H (34-104) U/L Total Creatine Kinase 155 (30-223) U/L Total Protein 6.5 (6.0-8.3) gm/dl Albumin 4.1 (3.4-5.0) gm/dl Globulin 2.4 L (2.5-4.0) gm/dl Albumin/Globulin Ratio 1.7 (0.9-2) SARS-CoV-2, RNA, NAAT (NEGATIVE) 08/24/21 08/25/21 Range/Units 21:20 02:20 WBC (4.8-10.8) K/uL RBC (4.7-6.1) M/uL Hgb (14.0-18.0) g/dL Hct (42-52) % MCV (80-100) fL MCH (25-34) pg MCHC (32-36) g/dL RDW Std Deviation (36.4-46.3) fL RDW Coeff of Theresa (11.5-14.5) % Plt Count (130-400) K/uL MPV (7.4-10.4) fL Immature Gran % (Auto) % Neut % (Auto) % Lymph % (Auto) % [place] % (Auto) % Eos % (Auto) % Baso % (Auto) % Neut # (Auto) (1.4-6.5) K/uL Lymph # (Auto) (1.2-3.4) K/uL [place] # (Auto) (0.11-0.59) K/uL Eos # (Auto) (0-0.5) K/uL Baso # (Auto) (0-0.2) K/uL Immature Gran # (Auto) (0.00-0.02) K/uL PT (9.0-12.0) Seconds INR (0.9-1.1) Sodium (136-145) mmol/L Potassium (3.5-5.1) mmol/L Chloride (98-107) mmol/L Carbon Dioxide (21-32) mmol/L Anion Gap (3-11) BUN (6-23) mg/dl Creatinine (0.6-1.4) mg/dl Est Cr Clr Drug Dosing ml/min Est GFR ( Amer) ml/min Est GFR (Non-Af Amer) ml/min BUN/Creatinine Ratio (10-20) Glucose (70-99(Fasting)) mg/dl Calcium (8.5-10.1) mg/dl Phosphorus 2.6 (2.5-4.9) mg/dl Magnesium (1.7-2.4) mg/dl Total Bilirubin (0.2-1.0) mg/dl AST (13-39) U/L ALT (7-52) U/L Alkaline Phosphatase (34-104) U/L Total Creatine Kinase (30-223) U/L Total Protein (6.0-8.3) gm/dl Albumin (3.4-5.0) gm/dl Globulin (2.5-4.0) gm/dl Albumin/Globulin Ratio (0.9-2) SARS-CoV-2, RNA, NAAT NEGATIVE (NEGATIVE) Imaging Data Radiologist's Impression: Ultrasound venous left lower extremity. No ultrasonographic evidence of deep venous thrombosis involving the left lower extremity. Radiologist: Ina Nix MD ECG Data Attestation: I personally reviewed and interpreted this ECG as follows: Indication: + other Rate (beats per minute): 68 Rhythm: + normal sinus ECG Intervals/blocks: + Normal QRS and + Normal QT ECG Lula: + Left axis deviation MDM Narrative This is a 60-year-old male who presents with increased left lower extremity pain and edema. Patient does have chronic lower extremity edema and was previously using Lasix prior to recent hospitalization for rhabdomyolysis. Patient did take a dose of Lasix several days ago. Ultrasound performed due to concern for possible superficial thrombophlebitis or failure of anticoagulation leading to DVT. No abnormalities noted on lower extremity ultrasound. Labs revealed LORENZO which was more concerning given the patient's history of renal transplant. Patient initially declined pain medication, however due to unclear etiology eventually was in agreement with plan for additional medication as well as additional inpatient evaluation. I am concerned given patient states he has been unable to walk and has had 2 recent falls and is anticoagulated. Patient lives in a split-level house and so I feel there is concern for a safe discharge plan. Case discussed with hospitalist for additional evaluation and management. Patient was given small aliquots of IV fluid to help cautiously rehydrate given his reported decreased oral intake. An order was placed for continuous cardiac monitoring. The monitor shows a rate of _70_ with _normal sinus_ rhythm. Impression & Plan LORENZO (acute kidney injury), Acute pain of left lower extremity, Bilateral edema of lower extremity, Renal transplant, status post Discharge Plan Visit Data Chief Complaint: Leg Injury/Pain Stated Complaint: SEVERE PAIN IN L LEG, SWELLING, CAN'T SIT ED Provider: Natalie Howard Discharge Problem: LORENZO (acute kidney injury), Acute pain of left lower extremity, Bilateral edema of lower extremity, Renal transplant, status post Patient Disposition: Admitted As Inpatient Discharge Instructions Interventions: ED Discharge Assessment Last Done: 08/25/21 03:41
[2021-08-24] MEDS ORDERED: LACTATED RINGER'S 250 ML IV ONE (23:12)
[2021-08-25] MEDS ORDERED: LACTATED RINGER'S 250 ML IV ONE (00:49)
[2021-08-25] MEDS ORDERED: MoRPHine SULFATE 4 MG/ML 1 ML CARP\\VIAL IV STA (01:47)
[2021-08-25] MEDS ORDERED: ACETAMINOPHEN 1,000 MG/100 ML VIAL IV STA (01:47)
--- NOTE | 2021-08-25 03:44 | History & Physical Report ---
Date of Service August 25, 2021 Assessment & Plan (1) Acute pain of left lower extremity: Plan: 60yo male with history of renal transplant on immunosuppressive therapy with Prednisone/CellCept/Cyclosporine, FSGS, HTN, GERD recent hospitalization for rhabdomyolysis with pigment-induced nephropathy, recent fall x 2 presenting with acute LLE discomfort, progressive, inability to bear weight. Etiology unclear. Patient has chronic venous stasis changes. Does not appear to have acute infection. CK has normalized. Recent worsening LE edema - ?skin sensitivity. ?if pain is sequelae of recent fall - patient landed on left side. No obvious fractures on imaging - formal read pending -PT/OT -Pain control -Fall precautions -Check CT leg (2) History of renal transplant: Plan: Patient follows with Nephrology. Presently with mildly increased BUN and Cr from discharge values. Patient reports some decreased fluid intake as well as recently resuming his PO Lasix. His rhabdo has resolved. ?pre-renal etiology. He has received 500mL IVF in ER -Repeat chemistry today at 13:00 -Avoid nephrotoxic agents -Renal dosing where needed -Check Urine Na and Urea -Consider Nephrology consultation -Continue Cyclosporine, CellCept and Prednisone -Daily weights -I/O monitorin (3) Acute on chronic renal failure: Plan: As above. Suspect prerenal etiology. Mild elevation of K at 5.5. No EKG changes -Monitor BUN/Cr/electrolytes -Check UA -Calculate FeUrea (4) BPH (benign prostatic hyperplasia): Plan: Chronic -Continue Flomax -Monitor UOP (5) Dyslipidemia: Plan: Patient has been taken off statin due to rhabdomyolysis (6) Sleep apnea: Plan: Chronic. Patient is compliant with CPAP -Continue CPAP qHS (7) Anemia: Plan: Normochromic/normocytic. Slight decrease may be from extensive bruising -Monitor CBC (8) Hypertension: Plan: Mildly elevated at 142/68 -Hold Losartan for now - resume pending renal function (9) Depression: Plan: Chronic. -Continue Duloxetine (10) GERD (gastroesophageal reflux disease): Plan: Chronic -Continue Omeprazole (11) DVT (deep venous thrombosis): Plan: History of. Patient on chronic anticoagulation with Coumadin. INR = 3 today -Contiue home Coumadin -Repeat INR in AM. Hold if >3.5 Plan: F/E/N - Heplock. Monitor chemistry - repeat BMP at 1300, renal diet as to lerated Ppx - On Coumadin for DVT with therapeutic INR of 3 Code - Full per discussion with patient Dispo -Observation to medical History of Present Illness Chief Complaint: LLE pain Primary Care Provider: Vinicius Ng MD Kriby Prado is a pleasant 60yo male with history of chronic renal insufficiency, renal transplant in 2019, FSGS, nephrotic syndrome, HTN and Sarcoidosis. Patient was recently hospitalized at [facility] from 08/05/21 - 08/11/21 with rhabdomyolysis (presenting CK >30k - thought to be secondary to combination of Cyclosporine + Statin), pigment-induced nephropathy (discharge Cr=3.4). Patient had a ground level fall during his hospital stay which resulted in some chest bruising. He was discharged home in stable condition on 08/11. Due to his LORENZO on CKD + Rhabdo, patient was instructed to hold his Lasix. He reports p rogressive bilateral LE edema (L>R per usual) and weight gain. Reports he gained 12# of fluid. He resumed his Lasix 4 days ago and reports losing close to 6#. He has also been drinking less than usual - is to have 96oz of fluid daily per renal but today only had 40oz. Patient had a fall at home 3 days ago. He was walking down the steps and was distracted and fell down 3-4 steps - landed on his left side. Patient was able to get up and ambulate. However, he has been experiencing progressively worsening LLE discomfort. Today he is barely able to bear weight on his LLE. His pain is predominantly located in the posterior calf and medial thigh. He denies fever, chills, CP, cough, SOB, abdominal pain, nausea, vomiting, diarrhea or constipation. No additional complaints at this time. ER Course: 500mL NSS, Morphine Allergies Allergy/AdvReac Type Severity Reaction Status Date / Time allopurinol Allergy Unknown Rash Verified 08/24/21 22:01 Penicillins Allergy Unknown Unknown Verified 08/24/21 22:01 hydromorphone [From Dilaudid] AdvReac Severe confusion Verified 08/24/21 22:01 Home Medications Medication Instructions Recorded Confirmed Type aspirin 81 mg tablet,delayed 81 mg PO QAM 04/24/19 08/24/21 History release (Adult Low Dose Aspirin) cholecalciferol (vitamin D3) 25 1,000 units PO QAM 04/24/19 08/24/21 History mcg (1,000 unit) capsule docusate sodium 100 mg capsule 100 mg PO BID PRN 04/24/19 08/24/21 History (Colace) multivitamin (Daily Multi-Vitamin) 1 tab PO QAM 04/24/19 08/24/21 History tamsulosin 0.4 mg capsule (Flomax) 0.4 mg PO HS 04/24/19 08/24/21 History prednisone 5 mg tablet 5 mg PO QAM tab 05/29/19 08/24/21 History mycophenolate mofetil 250 mg 1,000 mg PO BID cap 02/20/20 08/24/21 History capsule (CellCept) febuxostat 80 mg tablet (Uloric) 80 mg PO QAM 03/06/20 08/24/21 History losartan 100 mg tablet 100 mg PO QAM #90 tab 11/04/20 08/24/21 Rx albuterol sulfate 90 mcg/actuation 2 inha INH Q6H PRN #1 inhaler 04/06/21 08/24/21 Rx aerosol inhaler omeprazole 40 mg capsule,delayed 40 mg PO QAM #90 cap 04/29/21 08/24/21 Rx release cyclosporine 100 mg capsule 150 mg PO BID cap 06/16/21 08/24/21 History duloxetine 20 mg capsule,delayed 60 mg PO QAM cap 06/16/21 08/24/21 History release magnesium oxide 800 mg PO BID cap 06/16/21 08/24/21 History ferrous sulfate 325 mg (65 mg 325 mg PO BID 08/05/21 08/24/21 History iron) tablet (iron) gabapentin 300 mg capsule See Rx Instructions PO HS cap 08/22/21 08/24/21 History (Neurontin) acetaminophen 500 mg tablet 1,000 mg PO QID PRN 08/24/21 08/24/21 History (Tylenol Extra Strength) warfarin 7.5 mg tablet (Jantoven) 7.5 mg PO QDD 08/24/21 08/24/21 History Past Med/Surg History Medical History (Updated 08/25/21 @ 03:32 by Aicha Nava DO) AV fistula LEFT WRIST> NO DIALYSIS CURRENTLY> FISTULA STILL WORKS PER PT DVT (deep venous thrombosis) Right- 04/2019 following transplant > Coumadin S/P LEFT LEG SURGERY (EXCISION OF MELANOMA LEFT LEG) 10 YEARS AGO. End stage renal disease follows Dr. Aguilera and transplant team at [facility] Family history of blood clots Gout History of basal cell carcinoma History of malignant melanoma of skin Hypertension Influenza A Nephrolithiasis Pneumonia due to COVID-19 virus Rectus sheath hematoma Sarcoidosis Umbilical hernia Venous insufficiency Venous stasis dermatitis Surgical History H/O colonoscopy History of cardiac cath 01/2018 > [facility] > NO STENTS History of melanoma excision left calf History of tonsillectomy History of tooth extraction Kidney transplanted APR 04, 2019 > [facility] > right side Family History Mother Stroke Heart disease Grandmother Cancer Other Lung disease Social History Smoking Status: Never smoker Second Hand Exposure: No; Hx Alcohol Use: No Hx Substance Use: No Preferred Language: Estonian Communication Ability: Effective Correctional Nurse Required: No Beliefs That Will Affect Care: None marital status: Current Living Situation: Spouse Current Living Situation Comment: spouse, sister, son current occupational status: employed current occupation: [employer] How many Children do You have: 1 Feels Safe at Home: Yes Assistive Devices: None Review of Systems Review of Systems: All systems reviewed & are unremarkable except as noted in HPI & below Physical Exam Physical Exam: General: patient resting comfortably, NAD, non-toxic in appearance, AA&O x 4 Skin: warm, dry, intact, ecchymosis present on left chest and abdomen, chronic venous stasis changes with hemosiderin staining of bilateral LE, several tender subcutaneous nodules present on LLE as well as abdominal wall HEENT: NC/AT, PERRL, EOMI, anicteric sclera, conjunctiva without injection, external ear normal to inspection and nontender, nares patent, moist mucus membranes, dentition intact, no oropharyngeal lesions, neck supple, trachea midline, no LAD, no thyromegaly, no JVD Heart: +S1/S2, regular, no m/r/g Lungs: equal air entry bilaterally, no rales/rhonchi/wheezes Abd: +BS, soft, NT/ND, no masses/organomegaly/ascites Ext: warm, 2+ pulses in UE/LE bilaterally, no clubbing/cyanosis, 2+ pitting edema of bilateral LE, L>R, deep scar present posterior left calf, tenderness with palpation of posterior calf, medial thigh, small dark blister on tip of great toe on left, area of callus on dorsum of left foot. No crepitus, bullae, lymphangitis, cellulitis present. Neuro: nonfocal, patient AA&O x 4, speech intact, no facial droop, moving all extremities on command with equal strength 5/5 Results & Data Results & Data ([facility]) Vital Signs (Past 12 Hours) Vital Signs Temp Pulse Pulse Resp BP BP Pulse Ox 08/25/21 01:47 70 14 140/79 97 08/24/21 20:51 36.8 C 87 18 118/68 100 Laboratory Results Laboratory Results WBC 6.99 K/uL (4.8-10.8) 08/24/21 21:20 RBC 2.94 M/uL (4.7-6.1) L 08/24/21 21:20 Hgb 8.8 g/dL (14.0-18.0) L 08/24/21 21:20 Hct 28.5 % (42-52) L 08/24/21 21:20 MCV 96.9 fL (80-100) 08/24/21 21:20 MCH 29.9 pg (25-34) 08/24/21 21:20 MCHC 30.9 g/dL (32-36) L 08/24/21 21:20 RDW Std Deviation 53.7 fL (36.4-46.3) H 08/24/21 21:20 RDW Coeff of Theresa 15.3 % (11.5-14.5) H 08/24/21 21:20 Plt Count 278 K/uL (130-400) 08/24/21 21:20 MPV 10.1 fL (7.4-10.4) 08/24/21 21:20 Immature Gran % (Auto) 0.3 % 08/24/21 21:20 Neut % (Auto) 88.3 % 08/24/21 21:20 Lymph % (Auto) 7.0 % 08/24/21 21:20 Harper % (Auto) 2.1 % 08/24/21 21:20 Eos % (Auto) 1.9 % 08/24/21 21:20 Baso % (Auto) 0.4 % 08/24/21 21:20 Neut # (Auto) 6.17 K/uL (1.4-6.5) 08/24/21 21:20 Lymph # (Auto) 0.49 K/uL (1.2-3.4) L 08/24/21 21:20 Harper # (Auto) 0.15 K/uL (0.11-0.59) 08/24/21 21:20 Eos # (Auto) 0.13 K/uL (0-0.5) 08/24/21 21:20 Baso # (Auto) 0.03 K/uL (0-0.2) 08/24/21 21:20 Immature Gran # (Auto) 0.02 K/uL (0.00-0.02) 08/24/21 21:20 PT 30.3 Seconds (9.0-12.0) H 08/24/21 21:20 INR 3.0 (0.9-1.1) H 08/24/21 21:20 Sodium 136 mmol/L (136-145) 08/24/21 21:20 Potassium 5.5 mmol/L (3.5-5.1) H 08/24/21 21:20 Chloride 102 mmol/L (98-107) 08/24/21 21:20 Carbon Dioxide 24 mmol/L (21-32) 08/24/21 21:20 Anion Gap 10 (3-11) 08/24/21 21:20 BUN 73 mg/dl (6-23) H 08/24/21 21:20 Creatinine 4.20 mg/dl (0.6-1.4) H 08/24/21 21:20 Est Cr Clr Drug Dosing 25.8 ml/min 08/24/21 21:20 Est GFR ( Amer) 16.8 ml/min 08/24/21 21:20 Est GFR (Non-Af Amer) 14.5 ml/min 08/24/21 21:20 BUN/Creatinine Ratio 17.4 (10-20) 08/24/21 21:20 Glucose 104 mg/dl (70-99(Fasting)) H 08/24/21 21:20 Calcium 9.4 mg/dl (8.5-10.1) 08/24/21 21:20 Magnesium 2.4 mg/dl (1.7-2.4) 08/24/21 21:20 Total Bilirubin 0.8 mg/dl (0.2-1.0) 08/24/21 21:20 AST 22 U/L (13-39) 08/24/21 21:20 ALT 21 U/L (7-52) 08/24/21 21:20 Alkaline Phosphatase 115 U/L (34-104) H 08/24/21 21:20 Total Creatine Kinase 155 U/L (30-223) 08/24/21 21:20 Total Protein 6.5 gm/dl (6.0-8.3) 08/24/21 21:20 Albumin 4.1 gm/dl (3.4-5.0) 08/24/21 21:20 Globulin 2.4 gm/dl (2.5-4.0) L 08/24/21 21:20 Albumin/Globulin Ratio 1.7 (0.9-2) 08/24/21 21:20 SARS-CoV-2, RNA, NAAT NEGATIVE (NEGATIVE) 08/25/21 02:20 ECG Additional Comments: SR at 68bpm, KI=013, NDT=729, OFw=160, no acute ischemic changes, normal T waves Code Status & VTE Plan VTE Prophylaxis Plan VTE Prophylaxis will be ordered: Yes PG Care Time/CCT Total # of Minutes Spent Total Time Spent with Patient: Total time spent is greater than 50% in coordination of care (as documented) at patient's floor/unit and/or counseling patient: Coding Level of Care Code INT OBSERVATION CARE 70M LVL 3 Diagnoses History of renal transplant Z94.0 Acute on chronic renal failure N17.9; N18.9 Acute renal failure type: unspecified BPH (benign prostatic hyperplasia) N40.0 Dyslipidemia E78.5 Sleep apnea G47.30 Anemia D64.9 Hypertension I10 Hypertension type: essential hypertension Depression F32.89 Depression Type: other depression GERD (gastroesophageal reflux disease) K21.9 Esophagitis presence: without esophagitis DVT (deep venous thrombosis) I82.409 DVT location: lower extremity Affected thrombotic vein of extremity: unspecified vein of extremity Chronicity: unspecified Laterality: unspecified laterality Acute pain of left lower extremity M79.605 (1) Acute on chronic renal failure Acute renal failure type: unspecified (2) Hypertension Hypertension type: essential hypertension Qualified Code(s): I10 - Essential (primary) hypertension (3) Depression Depression Type: other depression Qualified Code(s): F32.89 - Other specified depressive episodes (4) GERD (gastroesophageal reflux disease) Esophagitis presence: without esophagitis Qualified Code(s): K21.9 - Gastro- esophageal reflux disease without esophagitis (5) DVT (deep venous thrombosis) DVT location: lower extremity Affected thrombotic vein of extremity: unspecified vein of extremity Chronicity: unspecified Laterality: unspecified laterality Qualified Code(s): I82.409 - Acute embolism and thrombosis of unspecified deep veins of unspecified lower extremity
[2021-08-25] MEDS ORDERED: DOCUSATE SODIUM 100 MG CAP PO PRN (04:14)
[2021-08-25] MEDS ORDERED: ACETAMINOPHEN 500 MG TAB PO PRN (04:14)
--- NOTE | 2021-08-25 06:37 | XRay Report ---
XR ankle LT 2V, XR tibia fibula LT 2V HISTORY: 60 years-old Male trauma acute pain and swelling of the left ankle/tibia and fibula COMPARISON: CT left femur 08/25/2021 TECHNIQUE: 2 views of the left ankle with 2 views of the left tibia and fibula FINDINGS: ANKLE: There is mild osteoarthritis of the ankle, hindfoot and midfoot. Arterial calcifications. Mild torrie lateral soft tissue swelling. There is mild cortical irregularity involving the dorsal talar neck, li pat chronic. Os trigonum. No definite acute fracture, dislocation or osteochondral defect. TIBIA/FIBULA: Mild diffuse soft tissue prominence with arterial calcifications. Chondrocalcinosis of the knee. Ther e is no acute fracture, dislocation or opaque foreign body. Mild tibiotalar and patellofemoral osteoa rthritis. IMPRESSION: No acute fracture. ACT 112: Negative or not required by law. The above report was generated using voice recognition software. It may contain grammatical, syntax o r spelling errors. Electronically signed by: Facundo Miller M.D. 08/25/2021 6:36 AM
--- NOTE | 2021-08-25 06:42 | XRay Report ---
XR hip LT 2V w pelvis HISTORY: 60 years-old Male pain acute pain of the pelvis and left hip COMPARISON: CT left femur 08/25/2021 TECHNIQUE: AP view of the pelvis with 2 views of the left hip FINDINGS: There is moderate to severe osteoarthritis of the left femoral acetabular joint. Mild to moderate rig ht hip osteoarthritis. No acute fracture, dislocation or avascular necrosis. Unremarkable soft tissue s. Numerous pelvic basin phleboliths. IMPRESSION: No acute fracture or dislocation. ACT 112: Negative or not required by law. The above report was generated using voice recognition software. It may contain grammatical, syntax o r spelling errors. Electronically signed by: Facundo Miller M.D. 08/25/2021 6:40 AM
--- NOTE | 2021-08-25 07:01 | XRay Report ---
XR lumbar spine min 4V routine HISTORY: 60 years-old Male pain acute low back pain without reported injury COMPARISON: CT abdomen and pelvis 08/05/2021 TECHNIQUE: 5 views of the lumbar spine FINDINGS: Minimal levoscoliosis. 5 lumbar type vertebral segments are present. No spondylolysis or spondylolist hesis. Severe L5-S1 intervertebral disc space narrowing with partial bony fusion and spondylitic spur ring redemonstrated. Moderate multilevel facet arthrosis. Straightening of the normal lumbar lordosis . No acute fracture, subluxation or endplate erosion. Unremarkable soft tissues. Pelvic basin phlebol iths. IMPRESSION: No acute fracture or subluxation. ACT 112: Negative or not required by law. The above report was generated using voice recognition software. It may contain grammatical, syntax o r spelling errors. Electronically signed by: Facundo Miller M.D. 08/25/2021 7:00 AM
--- NOTE | 2021-08-25 07:28 | CT Scan Report ---
CT femur LT wo con HISTORY: 60 years-old Male pain . Acute pain of the left hip and thigh. COMPARISON: Pelvis and hip radiographs of same day TECHNIQUE: Multiple axial CT images of the left femur were obtained without the use of IV contrast. A dose lowering technique was used consistent with the principals of JAMIE. FINDINGS: Moderate to severe left hip osteoarthritis. Small to moderate left knee joint effusion. There is mild to moderate medial with mild patellofemoral compartment osteoarthritis. No acute fracture, dislocati on or avascular necrosis. Arterial calcifications. Moderate subcutaneous edema of the lower leg. Mild left inguinal chain adenopathy. IMPRESSION: 1. No acute fracture or dislocation. 2. Osteoarthritis of the hip and knee. 3. Small to moderate left knee joint effusion. ACT 112: Negative or not required by law. The above report was generated using voice recognition software. It may contain grammatical, syntax o r spelling errors. Electronically signed by: Facundo Miller M.D. 08/25/2021 7:25 AM
--- NOTE | 2021-08-25 07:30 | Ultrasound Report ---
US venous doppler LE LT CLINICAL HISTORY: Left leg pain and swelling COMPARISON: None available at the time of this dictation. TECHNIQUE: Left lower extremity real-time compression venous ultrasound with Color Doppler imaging. Utilizing real-time ultrasonic imaging multiple real time high-resolution ultrasonic images with comp ression and noncompression maneuvers of the deep venous system in addition to color doppler imaging w ere performed from the common femoral vein through the proximal calf veins. FINDINGS: Currently there is normal compressibility of the deep venous system from the common femoral vein thro ugh the proximal calf veins. No current evidence of acute thrombosis is identified. Impression: No evidence of deep venous thrombus. ACT 112: Negative or not required by law. Electronically signed by: Betito Patel M.D. 08/25/2021 7:29 AM
[2021-08-25] MEDS: cycloSPORINE (SANDIMMUNE) 25 MG CAP PO SCH ×2 (08:18→21:21)
[2021-08-25] MEDS: GABAPENTIN 300 MG CAP PO SCH ×3 (08:21→21:20)
[2021-08-25] MEDS: MYCOPHENOLATE MOFETIL 250 MG CAP PO SCH ×2 (08:21→21:20)
[2021-08-25] MEDS: PANTOprazole 40 MG TAB PO SCH (08:22)
[2021-08-25] MEDS: ASPIRIN 81 MG ECTAB PO SCH (08:22)
[2021-08-25] MEDS: predniSONE 5 MG TAB PO SCH (08:22)
[2021-08-25] MEDS: DULoxetine HCL 60 MG CAP PO SCH (08:22)
--- NOTE | 2021-08-25 12:23 | Electrocardiogram Report ---
Test Reason : Blood Pressure : / mmHG Vent. Rate : 068 BPM Atrial Rate : 068 BPM P-R Int : 158 ms QRS Dur : 104 ms QT Int : 418 ms P-R-T Axes : 028 -29 047 degrees QTc Int : 444 ms Sinus rhythm Otherwise normal ECG When compared with ECG of 05-AUG-2021 23:38, T wave inversion no longer evident in Inferior leads Confirmed by Vinicius Yeager ([id number]) on 08/25/2021 12:23:07 PM Referred By: REFERRED SELF Confirmed By:Vinicius Yeager
[2021-08-25 13:52] LABS: BUN Creatinine Ratio 17.9 (10-20); Calcium 9.3 mg/dl (8.5-10.1); Creatinine Clr Calc Pharmacy 27.3 ml/min; Est GFR (African American) 17.9 ml/min; Est GFR (Non-African American) 15.5 ml/min; Potassium 5.4 mmol/L (3.5-5.1)
[2021-08-25] MEDS: WARFARIN SOD 7.5 MG TAB PO SCH (15:46)
[2021-08-25 16:09] LABS: Appearance Urine Clear (Clear); Bacteria Urine Automated Negative (Negative); Bilirubin Urine Negative (Negative); Blood Urine Negative (Negative); Cast Urine Automated 0 /lpf (0-5); Color Urine Yellow; Glucose Urine UA Negative (Negative); Ketones Urine Negative (Negative); Leukocyte Esterase Urine Negative (Negative); Nitrite Urine Negative (Negative); Protein Urine 1+ (Negative); RBC Urine Automated 0-4 /hpf (0-4); Specific Gravity Urine 1.016 (1.000-1.030); Urobilinogen Urine Negative (Negative); pH Urine 6.5 (4.5-7.5)
[2021-08-25] MEDS: CLINDAMYCIN 600 MG in DEXTROSE 5% 50 ML IV SCH (18:18)
[2021-08-25] MEDS: TAMSULOSIN HCL 0.4 MG CAP PO SCH (21:21)
[2021-08-26] MEDS: CLINDAMYCIN 600 MG in DEXTROSE 5% 50 ML IV SCH ×3 (01:39→17:22)
[2021-08-26 07:36] LABS: Basophils # (auto) 0.04 K/uL (0-0.2); Basophils % (auto) 0.8 %; Eosinophils # (auto) 0.23 K/uL (0-0.5); Eosinophils % (auto) 4.7 %; Hematocrit (blood only) 25.7 % (42-52); Hemoglobin 8.1 g/dL (14.0-18.0); Immature Granulocytes # (auto) 0.01 K/uL (0.00-0.02); Immature Granulocytes % (auto) 0.2 %; Lymphocytes # (auto) 0.63 K/uL (1.2-3.4); Lymphocytes % (auto) 12.9 %; Mean Corpuscular Hemoglobin 30.5 pg (25-34); Mean Corpuscular Hgb Conc 31.5 g/dL (32-36); Mean Corpuscular Volume 96.6 fL (80-100); Mean Platelet Volume 9.9 fL (7.4-10.4); Monocytes # (auto) 0.25 K/uL (0.11-0.59); Monocytes % (auto) 5.1 %; Neutrophils # (auto) 3.71 K/uL (1.4-6.5); Neutrophils % (auto) 76.3 %; Platelet Count 259 K/uL (130-400); RDW Coefficient of Variation 15.2 % (11.5-14.5); RDW Standard Deviation 53.8 fL (36.4-46.3); Red Blood Count 2.66 M/uL (4.7-6.1); White Blood Count 4.87 K/uL (4.8-10.8)
[2021-08-26 07:41] LABS: INR 2.5 (0.9-1.1); Prothrombin Time 25.8 Seconds (9.0-12.0)
[2021-08-26 08:07] LABS: BUN Creatinine Ratio 17.2 (10-20); Calcium 9.1 mg/dl (8.5-10.1); Creatinine Clr Calc Pharmacy 28.3 ml/min; Est GFR (African American) 18.7 ml/min; Est GFR (Non-African American) 16.2 ml/min; Potassium 4.8 mmol/L (3.5-5.1)
[2021-08-26] MEDS: cycloSPORINE (SANDIMMUNE) 25 MG CAP PO SCH ×2 (09:34→20:18)
[2021-08-26] MEDS: GABAPENTIN 300 MG CAP PO SCH ×3 (09:36→20:19)
[2021-08-26] MEDS: DULoxetine HCL 60 MG CAP PO SCH (09:36)
[2021-08-26] MEDS: MYCOPHENOLATE MOFETIL 250 MG CAP PO SCH ×2 (09:37→20:18)
[2021-08-26] MEDS: PANTOprazole 40 MG TAB PO SCH (09:38)
[2021-08-26] MEDS: predniSONE 5 MG TAB PO SCH (09:38)
[2021-08-26] MEDS: ASPIRIN 81 MG ECTAB PO SCH (11:00)
--- NOTE | 2021-08-26 15:12 | Hospitalist Progress Note ---
Date of Service August 26, 2021 Assessment & Plan (1) Acute pain of left lower extremity: Plan: 60yo male with history of renal transplant on immunosuppressive therapy with Prednisone/CellCept/Cyclosporine, FSGS, HTN, GERD recent hospitalization for rhabdomyolysis with pigment-induced nephropathy, recent fall x 2 presenting with acute LLE discomfort, progressive, inability to bear weight. Etiology unclear The left leg is swollen and tender and warm on exam On physical exam palpation of the leg especially on thigh on the medial side tender streaks are palpable possibly phlebitis or lymphangitis the patient has chronic venous stasis changes. CT of the left lower extremity did not show evidence of abscess Doppler studies are unremarkable for DVT moreover, patient INR is therapeutic I started on clindamycin intravenously for empirical treatment for possible cellulitis CT of pelvis beginning of this month did not show any pelvic mass (2) History of renal transplant: Plan: Patient follows with Nephrology. Presented with creatinine around 4, baseline creatinine around 3.1-3.3 Patient reports some decreased fluid intake as well as recently resuming his PO Lasix. His rhabdo has resolved. No creatinine is trending down today 3.8 Patient was taking Lasix and losartan both has been held patient history of recent rhabdomyolysis CPK is within normal limits avoid nephrotoxic agents -Renal dosing where needed -Continue Cyclosporine, CellCept and Prednisone -Daily weights -I/O monitorin (3) Acute on chronic renal failure: Plan: Presented with a creatinine around 4, now creatinine is trending down today is 3.8 baseline creatinine is about 3.1-2.3 he had been taking losartan Losartan has been stopped Creatinine is trending down Repeat BMP tomorrow (4) BPH (benign prostatic hyperplasia): Plan: Chronic -Continue Flomax -Monitor UOP (5) Dyslipidemia: Plan: Patient has been taken off statin due to rhabdomyolysis (6) Sleep apnea: Plan: Chronic. Patient is compliant with CPAP -Continue CPAP qHS (7) Anemia: Plan: Normochromic/normocytic. Slight decrease may be from extensive bruising -Monitor CBC (8) Hypertension: Plan: Blood pressure is on the higher side, losartan has been held, monitor for now (9) Depression: Plan: Chronic. -Continue Duloxetine (10) GERD (gastroesophageal reflux disease): Plan: Chronic -Continue Omeprazole (11) DVT (deep venous thrombosis): Plan: History of. Patient on chronic anticoagulation with Coumadin. His INR is therapeutic Admission and Anticipated Discharge Date Admission Date: August 25, 2021 discharge date unknown Subjective The patient has extensive edema of the left lower extremity, complaining of pain Review of Systems Review of Systems: General: No malaise no weakness Neck: No tenderness no pain HEENT: No eye discharge no ear discharge Chest: No chest pain, no palpitation GI: Not distended, no nausea no vomiting Extremities: Pain tenderness, edema of the left lower extremity Neurology: No headache no weakness Psychiatric: No depression no anxiety Physical Exam Physical Exam: General: patient resting comfortably, NAD, non-toxic in appearance, AA&O x 4 Skin: warm, dry, intact, ecchymosis present on left chest and abdomen, chronic venous stasis changes with hemosiderin staining of bilateral LE, several tender subcutaneous nodules present on LLE as well as abdominal wall HEENT: NC/AT, PERRL, EOMI, anicteric sclera, conjunctiva without injection, external ear normal to inspection and nontender, nares patent, moist mucus membranes, dentition intact, no oropharyngeal lesions, neck supple, trachea midline, no LAD, no thyromegaly, no JVD Heart: +S1/S2, regular, no m/r/g Lungs: equal air entry bilaterally, no rales/rhonchi/wheezes Abd: +BS, soft, NT/ND, no masses/organomegaly/ascites Ext: warm, 2+ pulses in UE/LE bilaterally, no clubbing/cyanosis, 2+ pitting edema of bilateral LE, L>R, deep scar present posterior left calf, tenderness with palpation of posterior calf, medial thigh, small dark blister on tip of great toe on left, area of callus on dorsum of left foot. No crepitus, bullae, lymphangitis, cellulitis present. Neuro: nonfocal, patient AA&O x 4, speech intact, no facial droop, moving all extremities on command with equal strength 5/5 Results & Data Results & Data ([facility]) Vital Signs (Past 12 Hours) Vital Signs Temp Pulse Resp BP Pulse Ox 08/26/21 15:04 36.5 C 77 20 139/73 98 08/26/21 07:47 36.5 C 73 20 126/73 97 PG Care Time/CCT Total # of Minutes Spent Total Time Spent with Patient: Total time spent is greater than 50% in coordination of care (as documented) at patient's floor/unit and/or counseling patient: Coding Level of Care Code 89930 Subseq Hosp Care Lvl 3 Diagnoses Acute pain of left lower extremity M79.605 History of renal transplant Z94.0 Acute on chronic renal failure N17.9; N18.9 Acute renal failure type: unspecified BPH (benign prostatic hyperplasia) N40.0 Dyslipidemia E78.5 Sleep apnea G47.30 Anemia D64.9 Hypertension I10 Hypertension type: essential hypertension Depression F32.89 Depression Type: other depression GERD (gastroesophageal reflux disease) K21.9 Esophagitis presence: without esophagitis DVT (deep venous thrombosis) I82.409 Affected thrombotic vein of extremity: unspecified vein of extremity Chronicity: unspecified DVT location: lower extremity Laterality: unspecified laterality (1) DVT (deep venous thrombosis) Affected thrombotic vein of extremity: unspecified vein of extremity Chronicity: unspecified DVT location: lower extremity Laterality: unspecified laterality Qualified Code(s): I82.409 - Acute embolism and thrombosis of unspecified deep veins of unspecified lower extremity (2) Depression Depression Type: other depression Qualified Code(s): F32.89 - Other specified depressive episodes (3) GERD (gastroesophageal reflux disease) Esophagitis presence: without esophagitis Qualified Code(s): K21.9 - Gastro- esophageal reflux disease without esophagitis (4) Acute on chronic renal failure Acute renal failure type: unspecified (5) Hypertension Hypertension type: essential hypertension Qualified Code(s): I10 - Essential (primary) hypertension
[2021-08-26] MEDS: WARFARIN SOD 7.5 MG TAB PO SCH (17:12)
[2021-08-26] MEDS: TAMSULOSIN HCL 0.4 MG CAP PO SCH (20:18)
[2021-08-27] MEDS: CLINDAMYCIN 600 MG in DEXTROSE 5% 50 ML IV SCH ×3 (01:11→18:59)
[2021-08-27] MEDS: ASPIRIN 81 MG ECTAB PO SCH (08:35)
[2021-08-27] MEDS: cycloSPORINE (SANDIMMUNE) 25 MG CAP PO SCH ×2 (08:36→21:48)
[2021-08-27] MEDS: DULoxetine HCL 60 MG CAP PO SCH (08:36)
[2021-08-27] MEDS: MYCOPHENOLATE MOFETIL 250 MG CAP PO SCH ×2 (08:37→21:48)
[2021-08-27] MEDS: GABAPENTIN 300 MG CAP PO SCH ×3 (08:37→21:48)
[2021-08-27] MEDS: PANTOprazole 40 MG TAB PO SCH (08:38)
[2021-08-27] MEDS: predniSONE 5 MG TAB PO SCH (08:38)
[2021-08-27] MEDS: FEBUXOSTAT 80 MG PO SCH (08:40)
[2021-08-27 09:20] LABS: Prothrombin Time 30.3 Seconds (9.0-12.0)
[2021-08-27 09:33] LABS: BUN Creatinine Ratio 18.2 (10-20); Calcium 9.2 mg/dl (8.5-10.1); Est GFR (African American) 20.3 ml/min; Est GFR (Non-African American) 17.5 ml/min; Potassium 4.6 mmol/L (3.5-5.1)
--- NOTE | 2021-08-27 14:18 | Hospitalist Progress Note ---
Date of Service August 27, 2021 Assessment & Plan (1) Acute pain of left lower extremity: Plan: 60yo male with history of renal transplant on immunosuppressive therapy with Prednisone/CellCept/Cyclosporine, FSGS, HTN, GERD recent hospitalization for rhabdomyolysis with pigment-induced nephropathy, recent fall x 2 presenting with acute LLE discomfort, progressive, inability to bear weight. Left lower extremity pain, inability to bear weight Admitting assessment noted swelling, tenderness, warmth on exam particularly with medial streaks concerning for phlebitis/lymphangitis. Patient was started on clindamycin for cellulitis. Streaking not appreciated on exam 08/27, patient without a feeling of clinical improvement Dopplers negative for DVT, patient with therapeutic INR CT of the left lower extremity without evidence of abscess/fracture - Pain is immediately worsened and shooting in quality with attempted straight leg raise. Lumbar MRI is pending Patient does have a knee effusion and tenderness along the medial knee, distal medial thigh, and proximal posterior and medial calf which may be due to injury after his fall above. Exam limited by tenderness/pain but do not appreciate any medial/lateral joint line tenderness or valgus/varus laxity on exam. No evidence of fracture above. Patient does have a proximal calf deformity due to melanoma resection in the past near his site of pain. Given lymphadenopathy noted on CT and streaking concerning for lymphangitis on admitting exam and immunosuppression with history of renal transplant, will continue empiric antibiotics while working up above (2) History of renal transplant: Plan: Patient follows with Nephrology. Presented with creatinine around 4, baseline creatinine around 3.1-3.3 Patient reports some decreased fluid intake as well as recently resuming his PO Lasix. His rhabdo has resolved. Creatinine downtrending 3.58 on 08/27 Patient was taking Lasix and losartan both has been held patient history of recent rhabdomyolysis. Continue to hold, follow creatinine as above. CPK is within normal limits avoid nephrotoxic agents -Renal dosing where needed -Continue Cyclosporine, CellCept and Prednisone -Daily weights -I/O monitorin (3) Acute on chronic renal failure: Plan: Presented with a creatinine around 4, baseline creatinine is about 3.1-2.3 Losartan has been stopped Creatinine is trending down Trend BMP (4) BPH (benign prostatic hyperplasia): Plan: Chronic -Continue Flomax -Monitor UOP (5) Dyslipidemia: Plan: Patient has been taken off statin due to rhabdomyolysis (6) Sleep apnea: Plan: Chronic. Patient is compliant with CPAP -Continue CPAP qHS (7) Anemia: Plan: Normochromic/normocytic. Slight decrease may be from extensive bruising -Monitor CBC (8) Hypertension: Plan: Blood pressure is on the higher side, losartan has been held, monitor for now (9) Depression: Plan: Chronic. -Continue Duloxetine (10) GERD (gastroesophageal reflux disease): Plan: Chronic -Continue Omeprazole (11) DVT (deep venous thrombosis): Plan: History of. Patient on chronic anticoagulation with Coumadin. His INR is therapeutic Admission and Anticipated Discharge Date Admission Date: August 25, 2021 Subjective Seen the bedside this morning. Patient reports he has had cellulitis before, his current symptoms do not feel like that, has not noticed redness/warmth/similar pain in his left leg. Does report that he continues to have pain going from his mid calf up through the back of his thigh which is worsened with weightbearing and attempted ambulation, is unable to bear weight at this time. Does not feel the time of treatment so far has produced any benefit. Denies saddle anesthesia, urinary retention/incontinence, bowel incontinence. Does feel his left extremity is both weak and pain limited. Denies fever, chills, sweats, chest pain, shortness of breath, difficulty breathing. Several days prior to onset he did have a mechanical fall where he missed a step and fell on the stairs, is not sure if he twisted his leg and is not sure if he heard a pop/snap because he was distracted by pain in his ribs. Review of Systems Review of Systems: All systems reviewed & are unremarkable except as noted in Subjective Physical Exam Physical Exam: General: A&Ox3. NAD. Cooperative. HEENT: Atraumatic, normocephalic. Pulm: CTAB A&P. -wheezes, -rales, -rhonchi. Symmetrical chest rise. No increase in work of breathing. No respiratory distress. Cardiac: RRR, -mrg. Radial pulses intact and symmetrical. Abdominal: Nontender, nondistended, soft. BS present. Extremities: Bilateral left greater than right 1+ pitting edema. Left lower extremity: Calf with proximal deformity due to prior melanoma resection. No medial or lateral joint line tenderness. Pain is elicited on palpation of the posterior calf, posterior and medial knee, posterior thigh, and distal medial thigh. No patellar tenderness. Knee flexion limited to 30 degrees by pain. Extension intact. No valgus/varus laxity. Ankle dorsiflexion/plantarflexion 4/5, knee flexion/extension active limited by pain. Straight leg raise limited by immediate at the calf/knee radiating proximally Right lower extremity: Atraumatic. 5/5 strength to ankle dorsiflexion/plantarflexion, knee flexion/extension, hip flexion. Results & Data Results & Data ([facility]) Vital Signs (Past 12 Hours) Vital Signs Temp Pulse Pulse Resp BP Pulse Ox 08/27/21 07:52 36.3 C L 58 L 20 132/79 97 08/27/21 03:30 71 20 96 PG Care Time/CCT Total # of Minutes Spent Total Time Spent with Patient: Total time spent is greater than 50% in coordination of care (as documented) at patient's floor/unit and/or counseling patient: Coding Level of Care Code 01066 Subseq Hosp Care Lvl 2 Diagnoses Acute pain of left lower extremity M79.605 History of renal transplant Z94.0 Acute on chronic renal failure N17.9; N18.9 Acute renal failure type: unspecified BPH (benign prostatic hyperplasia) N40.0 Dyslipidemia E78.5 Sleep apnea G47.30 Anemia D64.9 Hypertension I10 Hypertension type: essential hypertension Depression F32.89 Depression Type: other depression GERD (gastroesophageal reflux disease) K21.9 Esophagitis presence: without esophagitis DVT (deep venous thrombosis) I82.409 DVT location: lower extremity Affected thrombotic vein of extremity: unspecified vein of extremity Chronicity: unspecified Laterality: unspecified laterality (1) Acute on chronic renal failure Acute renal failure type: unspecified (2) Hypertension Hypertension type: essential hypertension Qualified Code(s): I10 - Essential (primary) hypertension (3) Depression Depression Type: other depression Qualified Code(s): F32.89 - Other specified depressive episodes (4) GERD (gastroesophageal reflux disease) Esophagitis presence: without esophagitis Qualified Code(s): K21.9 - Gastro- esophageal reflux disease without esophagitis (5) DVT (deep venous thrombosis) DVT location: lower extremity Affected thrombotic vein of extremity: unspecified vein of extremity Chronicity: unspecified Laterality: unspecified laterality Qualified Code(s): I82.409 - Acute embolism and thrombosis of unspecified deep veins of unspecified lower extremity
[2021-08-27] MEDS: WARFARIN SOD 7.5 MG TAB PO SCH (18:58)
[2021-08-27] MEDS: TAMSULOSIN HCL 0.4 MG CAP PO SCH (21:48)
[2021-08-28] MEDS: CLINDAMYCIN 600 MG in DEXTROSE 5% 50 ML IV SCH ×2 (02:15→13:48)
[2021-08-28 07:50] LABS: Basophils # (auto) 0.03 K/uL (0-0.2); Basophils % (auto) 0.6 %; Eosinophils # (auto) 0.24 K/uL (0-0.5); Eosinophils % (auto) 4.8 %; Hemoglobin 8.3 g/dL (14.0-18.0); Immature Granulocytes # (auto) 0.02 K/uL (0.00-0.02); Immature Granulocytes % (auto) 0.4 %; Lymphocytes # (auto) 0.66 K/uL (1.2-3.4); Lymphocytes % (auto) 13.3 %; Mean Corpuscular Hemoglobin 30.3 pg (25-34); Mean Corpuscular Hgb Conc 31.9 g/dL (32-36); Mean Corpuscular Volume 94.9 fL (80-100); Monocytes # (auto) 0.31 K/uL (0.11-0.59); Monocytes % (auto) 6.3 %; Neutrophils % (auto) 74.6 %; Platelet Count 258 K/uL (130-400); RDW Coefficient of Variation 15.1 % (11.5-14.5); RDW Standard Deviation 51.4 fL (36.4-46.3); Red Blood Count 2.74 M/uL (4.7-6.1); White Blood Count 4.96 K/uL (4.8-10.8)
[2021-08-28 07:58] LABS: INR 3.2 (0.9-1.1); Prothrombin Time 31.8 Seconds (9.0-12.0)
[2021-08-28] MEDS: ASPIRIN 81 MG ECTAB PO SCH (08:06)
[2021-08-28] MEDS: DULoxetine HCL 60 MG CAP PO SCH (08:07)
[2021-08-28] MEDS: cycloSPORINE (SANDIMMUNE) 25 MG CAP PO SCH (08:07)
[2021-08-28] MEDS: MYCOPHENOLATE MOFETIL 250 MG CAP PO SCH (08:08)
[2021-08-28] MEDS: GABAPENTIN 300 MG CAP PO SCH ×2 (08:08→17:27)
[2021-08-28] MEDS: PANTOprazole 40 MG TAB PO SCH (08:10)
[2021-08-28] MEDS: predniSONE 5 MG TAB PO SCH (08:10)
[2021-08-28] MEDS: FEBUXOSTAT 80 MG PO SCH (08:14)
[2021-08-28 08:15] LABS: BUN Creatinine Ratio 18.1 (10-20); Calcium 8.7 mg/dl (8.5-10.1); Creatinine Clr Calc Pharmacy 31.3 ml/min; Est GFR (African American) 21.5 ml/min; Est GFR (Non-African American) 18.5 ml/min; Potassium 4.7 mmol/L (3.5-5.1)
--- NOTE | 2021-08-28 08:20 | Magnetic Resonance Report ---
LUMBAR SPINE MRI HISTORY: worsening left lower extremity weakness, pain TECHNIQUE: Multiplanar multisequence MRI of the lumbar spine was performed without the use of contras t. COMPARISON: Lumbar spine radiograph 08/24/2021. FINDINGS: For the purpose of the report the L5-S1 disc space will be located on axial image of 30. Minimal levoscoliosis, unchanged. No fracture or subluxation. There are severe disc space narrowing a t L5-S1. Remaining disc spaces are preserved. The conus terminates at the L1-L2 disc space level. Mil d facet degenerative changes within the lower lumbar spine. Paravertebral soft tissues are unremarkab le. L1-L2: No significant central canal or neural foraminal narrowing. L2-L3: Small broad-based posterior disc bulge asymmetric to the left without significant central darian l are right-sided neural foraminal narrowing. There is mild left-sided neural foraminal narrowing. L3-L4: Tiny left foraminal annular tear without significant central canal or neural foraminal narrowi ng. L4-L5: There is a small focal central disc protrusion measuring 4 mm. This does not abut the adjacent nerve roots. No significant central canal or neural foraminal narrowing. L5-S1: Broad-based posterior disc osteophyte complex without significant central canal narrowing. The re is moderate right and mild left neural foraminal narrowing due to the disc osteophyte complex and facet hypertrophy. IMPRESSION: 1. Small broad-based posterior disc bulge asymmetric to the left at L2-L3 resulting in mild left-side d neural foraminal narrowing. 2. A small left foraminal annular tear at L3-L4 without significant central canal or neural foraminal narrowing. 3. Small focal central disc protrusion at L4-5 without significant central canal or neural foraminal narrowing. 4. Moderate right and mild left neural foraminal narrowing at L5-S1 due to a broad-based posterior di sc osteophyte complex and facet hypertrophy. 5. No fracture or subluxation. ACT 112: Negative or not required by law. Electronically signed by: Joao Parker M.D. 08/28/2021 8:19 AM
--- NOTE | 2021-08-28 13:05 | Magnetic Resonance Report ---
MR femur LT wo con HISTORY: 60 years-old Male L thigh and knee acute pain left lower leg with recent fall. Pain with re ported uropathy.. COMPARISON: CT left femur 08/17/2021 TECHNIQUE: Multiplanar multisequence MRI of the left femur was obtained without the use of IV contras t. FINDINGS: Motion degraded exam. Mild prostamegaly. Partial distention of the urinary bladder with mild wall thi ckening. No acute intrapelvic abnormality. Intramuscular edema is noted within the vastus medialis, v astus intermedius and most pronounced within the distal aspect of the vastus medialis. The rectus fem maxwell muscle appears normal. Equivocal intramuscular edema within the mid aspect of the semitendinosis . Nonspecific diffuse subcutaneous edema. No discrete intramuscular hematoma. There is at least mild osteoarthritis of the hips. No acute fracture, marrow replacing process, suspi cious bone lesion or osseous erosion. IMPRESSION: 1. Nonspecific mild subcutaneous edema of the thigh with mild intramuscular edema of the quadriceps m usculature, most pronounced in the distal aspect of the vastus medialis. Considering the patient's hi story of recent fall, these findings are most suggestive of acute grade I muscle strains. 2. No acute fracture or bone marrow edema. ACT 112: Negative or not required by law. The above report was generated using voice recognition software. It may contain grammatical, syntax o r spelling errors. Electronically signed by: Facundo Miller M.D. 08/28/2021 1:02 PM
--- NOTE | 2021-08-28 13:12 | Hospitalist Progress Note ---
Date of Service August 28, 2021 Assessment & Plan (1) Acute pain of left lower extremity: Plan: 60yo male with history of renal transplant on immunosuppressive therapy with Prednisone/CellCept/Cyclosporine, FSGS, HTN, GERD recent hospitalization for rhabdomyolysis with pigment-induced nephropathy, recent fall x 2 presenting with acute LLE discomfort, progressive, inability to bear weight. Left lower extremity pain, inability to bear weight Admitting assessment noted swelling, tenderness, warmth on exam particularly with medial streaks concerning for phlebitis/lymphangitis. Patient was started on clindamycin for cellulitis. Streaking not appreciated on exam 08/27, patient without a feeling of clinical improvement Dopplers negative for DVT, patient with therapeutic INR CT of the left lower extremity without evidence of abscess/fracture - Pain is immediately worsened and shooting in quality with attempted straight leg raise, lumbar MRI below. Patient does have a knee effusion and tenderness along the medial knee, distal medial thigh, and proximal posterior and medial calf which may be due to injury after his fall above. Exam limited by tenderness/pain but do not appreciate any medial/lateral joint line tenderness or valgus/varus laxity on exam. No evidence of fracture above. Patient does have a proximal calf deformity due to melanoma resection in the past near his site of pain. Given lymphadenopathy noted on CT and streaking concerning for lymphangitis on admitting exam and immunosuppression with history of renal transplant, will continue empiric antibiotics while working up above - Lumbar MRI: Small broad-based posterior disc bulge asymmetric to the left at L2-L3 resulting in mild left-sided neural foraminal narrowing. A small left foraminal annular tear at L3-L4 without significant central canal or neural foraminal narrowing. Small focal central disc protrusion at L4-5 without significant central canal or neural foraminal narrowing. Moderate right and mild left neural foraminal narrowing at L5-S1 due to a broad-based posterior disc osteophyte complex and facet hypertrophy. No fracture or subluxation. On exam today patient with increased firmness and tenderness at proximal medial lower leg? and mid thigh medial ecchymoses.? Vastus medialis/sartorius injury. MRI pending to evaluate for muscle tear (2) History of renal transplant: Plan: Patient follows with Nephrology. Presented with creatinine around 4, baseline creatinine around 3.1-3.3 Patient reports some decreased fluid intake as well as recently resuming his PO Lasix. His rhabdo has resolved. Creatinine downtrending 3.58 on 08/27, continues to downtrend to 3.4 Patient was taking Lasix and losartan both has been held patient history of recent rhabdomyolysis. Continue to hold, follow creatinine as above. CPK is within normal limits avoid nephrotoxic agents -Renal dosing where needed -Continue Cyclosporine, CellCept and Prednisone -Daily weights -I/O monitorin (3) Acute on chronic renal failure: Plan: Presented with a creatinine around 4, baseline creatinine is about 3.1-2.3 Losartan has been held Creatinine is trending down Trend BMP (4) BPH (benign prostatic hyperplasia): Plan: Chronic -Continue Flomax -Monitor UOP (5) Dyslipidemia: Plan: Patient has been taken off statin due to rhabdomyolysis (6) Sleep apnea: Plan: Chronic. Patient is compliant with CPAP -Continue CPAP qHS (7) Anemia: Plan: Normochromic/normocytic. Slight decrease may be from extensive bruising -Monitor CBC (8) Hypertension: Plan: Blood pressure is on the higher side, losartan has been held, monitor for now (9) Depression: Plan: Chronic. -Continue Duloxetine (10) GERD (gastroesophageal reflux disease): Plan: Chronic -Continue Omeprazole (11) DVT (deep venous thrombosis): Plan: History of. Patient on chronic anticoagulation with Coumadin. His INR is slightly subtherapeutic, trend daily Admission and Anticipated Discharge Date Admission Date: August 27, 2021 Subjective seen at the bedside this morning. No change in symptoms. No fever, chills, sweats, shaking chills, chest pain, chest pressure. Continues to have unchanged pain in his left leg. Denies warmth, swelling, tracking of his leg. Is able to flex and extend at the knee but is pain limited past 30 degrees. Has not had any progressive weakness of lower extremity, no numbness tingling of lower extremity, no saddle anesthesia, no shooting pains into his back while laying in bed Review of Systems Review of Systems: All systems reviewed & are unremarkable except as noted in Subjective Physical Exam Physical Exam: General: A&Ox3. NAD. Cooperative. HEENT: Atraumatic, normocephalic. Vision/hearing intact Pulm: CTAB A&P. -wheezes, -rales, -rhonchi. Symmetrical chest rise. No increase in work of breathing. No respiratory distress. Cardiac: RRR, -mrg. Radial pulses intact and symmetrical. Abdominal: Nontender, nondistended, soft. BS present. Extremities: Bilateral left greater than right 1+ pitting edema. Left lower extremity: Increased area of firmness and tenderness at proximal medial left lower leg, developing ecchymosis of left medial mid thigh calf with proximal deformity due to prior melanoma resection. No medial or lateral joint line tenderness. Pain is elicited on palpation of the posterior calf, posterior and medial knee, posterior thigh, and distal medial thigh. No patellar tenderness. Knee flexion limited to 30 degrees by pain. Extension intact. Left leg abduction and abduction at the hip intact, although adduction produces pain. Ankle dorsiflexion/plantarflexion 4/5, knee flexion/extension active limited by pain. Straight leg raise limited by immediate at the calf/knee radiating proximally Right lower extremity: Atraumatic. 5/5 strength to ankle dorsiflexion/plantarflexion, knee flexion/extension, hip flexion. Results & Data Results & Data ([facility]) Vital Signs (Past 12 Hours) Vital Signs Temp Pulse Resp BP Pulse Ox 08/28/21 07:32 36.5 C 59 L 18 162/58 H 97 PG Care Time/CCT Total # of Minutes Spent Total Time Spent with Patient: Total time spent is greater than 50% in coordination of care (as documented) at patient's floor/unit and/or counseling patient: Coding Level of Care Code 86707 Subseq Hosp Care Lvl 2 Diagnoses Acute pain of left lower extremity M79.605 History of renal transplant Z94.0 Acute on chronic renal failure N17.9; N18.9 Acute renal failure type: unspecified BPH (benign prostatic hyperplasia) N40.0 Dyslipidemia E78.5 Sleep apnea G47.30 Anemia D64.9 Hypertension I10 Hypertension type: essential hypertension Depression F32.89 Depression Type: other depression GERD (gastroesophageal reflux disease) K21.9 Esophagitis presence: without esophagitis DVT (deep venous thrombosis) I82.409 DVT location: lower extremity Affected thrombotic vein of extremity: unspecified vein of extremity Chronicity: unspecified Laterality: unspecified laterality (1) Acute on chronic renal failure Acute renal failure type: unspecified (2) Hypertension Hypertension type: essential hypertension Qualified Code(s): I10 - Essential (primary) hypertension (3) Depression Depression Type: other depression Qualified Code(s): F32.89 - Other specified depressive episodes (4) GERD (gastroesophageal reflux disease) Esophagitis presence: without esophagitis Qualified Code(s): K21.9 - Gastro- esophageal reflux disease without esophagitis (5) DVT (deep venous thrombosis) DVT location: lower extremity Affected thrombotic vein of extremity: unspecified vein of extremity Chronicity: unspecified Laterality: unspecified laterality Qualified Code(s): I82.409 - Acute embolism and thrombosis of unspecified deep veins of unspecified lower extremity
--- NOTE | 2021-08-28 13:13 | Magnetic Resonance Report ---
MR knee LT wo con CLINICAL HISTORY: Status post fall with left thigh pain. Evaluate for possible muscle tear. COMPARISON: None. TECHNIQUE: Multiplanar multisequence images of the left knee were performed without contrast. FINDINGS: There is a moderately large intra-articular effusion. A small popliteal cyst is also present posterom edially. Suprapatellar plica are present. Menisci: The medial and lateral menisci are intact. There is no evidence for a meniscal tear. Cruciate ligaments: The anterior and posterior cruciate ligaments are intact. There is no evidence fo r a tear. Collateral ligaments and extensor mechanism: The medial collateral ligament and lateral collateral li gament complex are intact. The quadriceps tendon and patellar tendon are intact. The medial and later al patellar retinaculum is intact. Articular cartilage: The articular cartilage of the medial and lateral joint compartments is maintain ed. The articular cartilage of the posterior aspect of the patella is intact. Osseous structures: There is an impacted, nondisplaced fracture present involving the medial tibial p lateau anteriorly. It is incomplete and does not extend across the tibia either anteriorly or posteri nikunj. Trabecular alteration is present along with marrow edema. Homogeneous marrow signal is seen throughout the remaining imaged bones of the knee with no other ela dence for marrow edema or marrow replacement. Soft tissues: Subcutaneous edema is seen surrounding the. No focal soft tissue swelling is identified . IMPRESSION: 1. Impacted, nondisplaced and incomplete fracture of the tibial plateau centrally, anteriorly. Trabec ular alteration is present. Marrow edema with bone bruising is seen. 2. Moderately large intra-articular effusion 3. No other MR evidence for internal derangement. 4. Small popliteal cyst posteromedially. 5. Subcutaneous soft tissue swelling surrounding the knee. ACT 112: Negative or not required by law. Electronically signed by: Betito Patel M.D. 08/28/2021 1:11 PM
--- NOTE | 2021-08-28 15:16 | Orthopedic Consultation ---
Date of Service August 28, 2021 Assessment & Plan (1) Knee contusion: His symptoms certainly add up to the mechanism of injury and the MRI findings. He has a deep bone bruise on the anterior medial aspect of his tibial plateau with a small cortical crack in it. It does not communicate with the joint. He can be weightbearing as tolerated. I told him will take 4 to 6 weeks for this to start to feel a little bit better and will take 3 months to heal most of the way. He also has a muscle strain on the medial aspect of his leg. This is probably worsened with the fact he is on anticoagulation therapy. This should heal uneventfully. From an orthopedic standpoint, his injuries are nons urgical. He can be weightbearing as tolerated. He may be a little more comfortable using a walker for the next few days. I do not think that any bracing is necessary. He is orthopedically stable for discharge when medically ready. He can follow-up with orthopedics in the future if his pain continues. History of Present Illness Reason for Consultation: Left knee pain. Requesting Physician: . Attending Physician: Rodrigo Rendon MD Kirby is a pleasant 60-year-old male who lives in a split-level house with his . He recently had a renal transplant and is on immunosuppressive therapy. He normally ambulates without assistance. He had a fall down the stairs a few days ago. He says he slipped and fell down a few stairs. He placed his left elbow next to his side to protect his ribs and is not sure if he hit his knee or his leg. Unfortunately, after the fall he was having pain in his left knee. The pain got worse and he came to the emergency room. Initial x-rays were negative. There was some concerns for cellulitis. He was admitted to the medical service. He continues to have significant knee pain. Is mostly in the anterior aspect of his knee and the medial aspect of his thigh. He can walk on it a little bit, and when he starts walking more it seems to loosen up a little bit. It still quite painful. He then had an MRI of his left femur in his left knee earlier today. The MRI showed strain of the vastus medialis and a large bone bruise on the anterior proximal tibial plateau. Orthopedics was consulted to evaluate and treat. Allergies Allergy/AdvReac Type Severity Reaction Status Date / Time allopurinol Allergy Unknown Rash Verified 08/24/21 22:01 Penicillins Allergy Unknown Unknown Verified 08/24/21 22:01 hydromorphone [From Dilaudid] AdvReac Severe confusion Verified 08/24/21 22:01 Home Medications Medication Instructions Recorded Confirmed Type aspirin 81 mg tablet,delayed 81 mg PO QAM 04/24/19 08/24/21 History release (Adult Low Dose Aspirin) cholecalciferol (vitamin D3) 25 1,000 units PO QAM 04/24/19 08/24/21 History mcg (1,000 unit) capsule docusate sodium 100 mg capsule 100 mg PO BID PRN 04/24/19 08/24/21 History (Colace) multivitamin (Daily Multi-Vitamin) 1 tab PO QAM 04/24/19 08/24/21 History tamsulosin 0.4 mg capsule (Flomax) 0.4 mg PO HS 04/24/19 08/24/21 History prednisone 5 mg tablet 5 mg PO QAM tab 05/29/19 08/24/21 History mycophenolate mofetil 250 mg 1,000 mg PO BID cap 02/20/20 08/24/21 History capsule (CellCept) febuxostat 80 mg tablet (Uloric) 80 mg PO QAM 03/06/20 08/24/21 History losartan 100 mg tablet 100 mg PO QAM #90 tab 11/04/20 08/24/21 Rx albuterol sulfate 90 mcg/actuation 2 inha INH Q6H PRN #1 inhaler 04/06/21 08/24/21 Rx aerosol inhaler omeprazole 40 mg capsule,delayed 40 mg PO QAM #90 cap 04/29/21 08/24/21 Rx release cyclosporine 100 mg capsule 150 mg PO BID cap 06/16/21 08/24/21 History duloxetine 20 mg capsule,delayed 60 mg PO QAM cap 06/16/21 08/24/21 History release magnesium oxide 800 mg PO BID cap 06/16/21 08/24/21 History ferrous sulfate 325 mg (65 mg 325 mg PO BID 08/05/21 08/24/21 History iron) tablet (iron) gabapentin 300 mg capsule See Rx Instructions PO HS cap 08/22/21 08/24/21 History (Neurontin) acetaminophen 500 mg tablet 1,000 mg PO QID PRN 08/24/21 08/24/21 History (Tylenol Extra Strength) warfarin 7.5 mg tablet (Jantoven) 7.5 mg PO QDD 08/24/21 08/24/21 History Past Med/Surg History Medical History AV fistula LEFT WRIST> NO DIALYSIS CURRENTLY> [facility] STILL WORKS PER PT DVT (deep venous thrombosis) Right- 04/2019 following transplant > Coumadin S/P LEFT LEG SURGERY (EXCISION OF MELANOMA LEFT LEG) 10 YEARS AGO. End stage renal disease follows Dr. Aguilera and transplant team at [facility] Family history of blood clots Gout History of basal cell carcinoma History of malignant melanoma of skin Hypertension Influenza A Nephrolithiasis Pneumonia due to COVID-19 virus Rectus sheath hematoma Sarcoidosis Umbilical hernia Venous insufficiency Venous stasis dermatitis Surgical History H/O colonoscopy History of cardiac cath 01/2018 > [facility] > NO STENTS History of melanoma excision left calf History of tonsillectomy History of tooth extraction Kidney transplanted APR 04, 2019 > [facility] > right side Family History Mother Stroke Heart disease Grandmother Cancer Other Lung disease Social History Smoking Status: Never smoker Second Hand Exposure: No; Hx Alcohol Use: No Hx Substance Use: No Preferred Language: [place]raini Communication Ability: Effective Auto Transmission Technician Required: No Beliefs That Will Affect Care: None marital status: Current Living Situation: Spouse Current Living Situation Comment: spouse, sister, son current occupational status: employed current occupation: [employer] How many Children do You have: 1 Other Information That Helps Us Care for You: No Feels Safe at Home: Yes Safety Concerns: Feels Safe At This Time Assistive Devices: Walker Assistive Devices Comment: Cpap at night Review of Systems All systems reviewed & are unremarkable except as noted in HPI & below. Physical Exam On physical examination of the left leg, he does have a little bit of ecchymosis and tenderness in the area of his vastus medialis. He has a 1+ effusion of his left knee. There is no signs of infection. His range of motion of 0 to 120 degrees no instability. He is able to do a straight leg raise. There is no signs of patellar or quadriceps tendon rupture. He has significant tenderness palpation over the anterior medial tibial plateau. He also has some venous stasis of his left lower leg. Constitutional WD/WN, vitals as above Eyes PERRL, conjunctivae normal, anicteric sclerae ENMT external ear and nose normal, oropharynx normal Neck trachea midline, no thyromegaly Respiratory normal respiratory effort Cardiovascular RRR, no murmur, no edema Gastrointestinal (Abdomen) normal bowel sounds, soft, nontender, no hepatosplenomegaly Psychiatric A+Ox3, euthymic affect Results & Data Results & Data Laboratory Results . Diagnostic Findings MRI of the left knee was reviewed. There is a moderate effusion. There is minimal arthritis. He does have an obvious large bone bruise on the anterior medial aspect of the tibial plateau. There may even be a small cortical fracture in the area. It does not communicate with the articular surface. MRI of the left femur was reviewed and does show some edema of the vastus medialis. This most likely consistent with a muscle strain. PG Care Time/CCT Total # of Minutes Spent Total Time Spent with Patient: Total time spent is greater than 50% in coordination of care (as documented) at patient's floor/unit and/or counseling patient: Coding Level of Care Code 36429 Inpt Consult Level 4 Diagnoses Knee contusion S80.00XA
--- NOTE | 2021-08-28 16:59 | Discharge Summary ---
Date of Service August 28, 2021 Admission HPI Per Admitting Provider Kirby Prado is a pleasant 60yo male with history of chronic renal insufficiency, renal transplant in 2019, FSGS, nephrotic syndrome, HTN and Sarcoidosis. 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 Patient had a ground level fall during his hospital stay which resulted in some chest bruising. He was discharged home in stable condition on 08/11. Due to his LORENZO on CKD + Rhabdo, patient was instructed to hold his Lasix. He reports pro gressive bilateral LE edema (L>R per usual) and weight gain. Reports he gained 12# of fluid. He resumed his Lasix 4 days ago and reports losing close to 6#. He has also been drinking less than usual - is to have 96oz of fluid daily per renal but today only had 40oz. Patient had a fall at home 3 days ago. He was walking down the steps and was distracted and fell down 3-4 steps - landed on his left side. Patient was able to get up and ambulate. However, he has been experiencing progressively worsening LLE discomfort. Today he is barely able to bear weight on his LLE. His pain is predominantly located in the posterior calf and medial thigh. He denies fever, chills, CP, cough, SOB, abdominal pain, nausea, vomiting, diarrhea or constipation. No additional complaints at this time. ER Course: 500mL NSS, Morphine Principal Diagnosis Quadriceps strain, tibial plateau cortical fracture Discharge Exam General: A&Ox3. NAD. Cooperative. HEENT: Atraumatic, normocephalic. Vision/hearing intact Pulm: CTAB A&P. -wheezes, -rales, -rhonchi. Symmetrical chest rise. No increase in work of breathing. No respiratory distress. Cardiac: RRR, -mrg. Radial pulses intact and symmetrical. Abdominal: Nontender, nondistended, soft. BS present. Extremities: Bilateral left greater than right 1+ pitting edema. Left lower extremity: Increased area of firmness and tenderness at proximal medial left lower leg, developing ecchymosis of left medial mid thigh calf with proximal deformity due to prior melanoma resection. No medial or lateral joint line tenderness. Pain is elicited on palpation of the posterior calf, posterior and medial knee, posterior thigh, and distal medial thigh. No patellar tenderness. Knee flexion limited to 30 degrees by pain. Extension intact. Left leg abduction and abduction at the hip intact, although adduction produces pain. Ankle dorsiflexion/plantarflexion 4/5, knee flexion/extension active limited by pain. Straight leg raise limited by immediate at the calf/knee radiating proximally Right lower extremity: Atraumatic. 5/5 strength to ankle dorsiflexion/plantarflexion, knee flexion/extension, hip flexion. Discharge Data Allergies Allergy/AdvReac Type Severity Reaction Status Date / Time allopurinol Allergy Unknown Rash Verified 08/24/21 22:01 Penicillins Allergy Unknown Unknown Verified 08/24/21 22:01 hydromorphone [From Dilaudid] AdvReac Severe confusion Verified 08/24/21 22:01 Consultations 08/28/21 13:43 Consult Orthopedic Surgery Routine Ordered Studies 08/24/21 21:33 US venous doppler LE LT Urgent 08/25/21 03:14 CT femur LT wo con Urgent 08/27/21 14:03 MR lumbar spine wo con Routine 08/28/21 09:19 MR femur LT wo con Routine MR knee LT wo con Routine Hospital Course (1) Acute pain of left lower extremity: 60yo male with history of renal transplant on immunosuppressive therapy with Prednisone/CellCept/Cyclosporine, FSGS, HTN, GERD recent hospitalization for rhabdomyolysis with pigment-induced nephropathy, recent fall x 2 presenting with acute LLE discomfort, progressive, inability to bear weight. Initial concern for cellulitis with some erythema which was not appreciated on reevaluation, patient did receive empiric clindamycin which was stopped. To shocklike and shooting pain patient did have a lumbar MRI which showed some degenerative disease and some foraminal narrowing mild at L2, but which was unli pat to have produce the patient's symptoms. On reevaluation he did have worsening tenderness at the tibial plateau and worsened ecchymoses at the medial thigh, MRI was obtained for evaluation of quadriceps and knee. He was found to have a cortical nondisplaced fracture of the tibial plateau and quadricep strain most pronounced in the vastus medialis. Orthopedics was consulted, surgical intervention was not recommended. Bracing and restricted range of motion was not recommended. Patient was recommended to ambulate as tolerated using a walker, and expect gradual improvement over several weeks to up to 3 months. May have delayed healing due to immunosuppression/steroid use in the setting of renal transplant. Patient was seen by PT and was recommended for discharge home. Patient was comfortable with this, and reports he is able to ambulate with his walker and is able to live on one floor of his home without steps. To do as outpatient: 1. Follow-up on healing progress of tibial plateau fracture and quadriceps strain 2. Repeat BMP within 1 week to follow creatinine, history of kidney transplant on immunosuppression. Losartan was held during admission for mild LORENZO which was downtrending and near normal at time of discharge 3. Reevaluation, monitor for signs of hematoma/bleeding which patient has experienced in the past. Left lower extremity pain, inability to bear weight Admitting assessment noted swelling, tenderness, warmth on exam particularly with medial streaks concerning for phlebitis/lymphangitis. Patient was started on clindamycin for cellulitis. Streaking not appreciated on exam 08/27, patient without a feeling of clinical improvement Dopplers negative for DVT, patient with therapeutic INR CT of the left lower extremity without evidence of abscess/fracture - Pain is immediately worsened and shooting in quality with attempted straight leg raise, lumbar MRI below. Patient does have a knee effusion and tenderness along the medial knee, distal medial thigh, and proximal posterior and medial calf which may be due to injury after his fall above. Exam limited by tenderness/pain but do not appreciate any medial/lateral joint line tenderness or valgus/varus laxity on exam. No evidence of fracture above. Patient does have a proximal calf deformity due to melanoma resection in the past near his site of pain. Given lymphadenopathy noted on CT and streaking concerning for lymphangitis on admitting exam and immunosuppression with history of renal transplant, will continue empiric antibiotics while working up above - Lumbar MRI: Small broad-based posterior disc bulge asymmetric to the left at L2-L3 resulting in mild left-sided neural foraminal narrowing. A small left foraminal annular tear at L3-L4 without significant central canal or neural foraminal narrowing. Small focal central disc protrusion at L4-5 without significant central canal or neural foraminal narrowing. Moderate right and mild left neural foraminal narrowing at L5-S1 due to a broad-based posterior disc osteophyte complex and facet hypertrophy. No fracture or subluxation. MRI KNee 1. Impacted, nondisplaced and incomplete fracture of the tibial plateau centrally, anteriorly. Trabecular alteration is present. Marrow edema with bone bruising is seen. 2. Moderately large intra-articular effusion 3. No other MR evidence for internal derangement. 4. Small popliteal cyst posteromedially. 5. Subcutaneous soft tissue swelling surrounding the knee. MRI Femur 1. Nonspecific mild subcutaneous edema of the thigh with mild intramuscular edema of the quadriceps musculature, most pronounced in the distal aspect of the vastus medialis. Considering the patient's history of recent fall, these findings are most suggestive of acute grade I muscle strains. 2. No acute fracture or bone marrow edema. (2) History of renal transplant: Patient follows with Nephrology. Presented with creatinine around 4, baseline creatinine around 3.1-3.3 Patient reports some decreased fluid intake as well as recently resuming his PO Lasix. His rhabdo has resolved. Creatinine downtrending 3.58 on 08/27, continues to downtrend to 3.4 Patient was taking Lasix and losartan both has been held patient history of recent rhabdomyolysis. Continue to hold, follow creatinine as above. CPK is within normal limits avoid nephrotoxic agents -Renal dosing where needed -Continue Cyclosporine, CellCept and Prednisone -Daily weights -I/O monitorin (3) Acute on chronic renal failure: Presented with a creatinine around 4, baseline creatinine is about 3.1-2.3 Losartan has been held Creatinine is trending down Trend BMP (4) BPH (benign prostatic hyperplasia): Chronic -Continue Flomax -Monitor UOP (5) Dyslipidemia: Patient has been taken off statin due to rhabdomyolysis (6) Sleep apnea: Chronic. Patient is compliant with CPAP -Continue CPAP qHS (7) Anemia: Normochromic/normocytic. Slight decrease may be from extensive bruising -Monitor CBC (8) Hypertension: Blood pressure is on the higher side, losartan has been held, monitor for now (9) Depression: Chronic. -Continue Duloxetine (10) GERD (gastroesophageal reflux disease): Chronic -Continue Omeprazole (11) DVT (deep venous thrombosis): History of. Patient on chronic anticoagulation with Coumadin. His INR is slightly subtherapeutic, trend daily Total Time Total Time Spent Total Time Spent (In Minutes): Time spend day of discharge 70 minutes including direct patient care, documentation, review of labs and images, and coordination of care. Discharge Plan Discharge Items Patient Disposition: Home - Self-Care Reason For Visit: LLE PAIN, INABILITY TO WALK Discharge Diagnosis: Tibial Plateua Cortical Fracture, Quad strain Activity: Per Instructions section Non-emergency contact: Primary Care Provider Follow-up/Referrals: Vinicius Ng MD [Primary Care Provider] - Diet: Regular Addtl Attending Provider Instructions: You were seen in the hospital for intractable leg pain which limited your ability to walk. This pain escalated after you had a fall several days prior. On initial assessment there was concern for potential infection due to redness and you were treated with an antibiotic. There were no ongoing signs of infe ction and this was discontinued. Your initial imaging did not show signs of a fracture. A follow-up MRI showed evidence of both quadriceps strain and swelling, along with a cortical fracture of your tibial plateau. Orthopedics was consulted. No surgical intervention was recommended. It will take several weeks to 3 months for your bone to heal. You may walk and ambulate as tolerated, use pain as a guide and do not try to push through pain. Continue to use your walker while you recover. You were seen by physical therapy who recommended return home. Your healing may be slightly longer or delayed due to your immunosuppressant/prednisone regimen. You have not been prescribed any new medications A follow-up appointment with your primary care provider Dr. Ng is being scheduled for you. You should be seen within 1 week. If you do not receive a call to confirm your appointment within 48 hours, please call his office at the number above. There were no signs of a hematoma during admission. You are at risk for hematoma development. If you have worsening pain, swelling, worsening areas of firm swelling, or other new or concerning symptoms please seek prompt medical reevaluation. Your losartan was held for concern of elevated kidney numbers. Your kidney numbers were decreasing and were near normal at discharge. Your losartan was resumed, but you should have a repeat creatinine check as an outpatient within 1 week. If you develop any new or worsening symptoms including fever, chills, sweats, chest pain, chest pressure, difficulty breathing, uncontrolled nausea/vomiting, rash, wheezing, passing out or nearly passing out, bleeding, black/bloody bowel movements, or other new or concerning symptoms please call your primary care physician, or call 911 for re-evaluation in the emergency department if you are very concerned. Pending Studies at Discharge: No Stand-Alone Forms: [facility] Critical Links, Smoking Cessation Medications and DC Order Prescriptions: Continued losartan 100 mg tablet 100 mg PO QAM Qty: 90 RF: 3 omeprazole 40 mg capsule,delayed release(DR/EC) 40 mg PO QAM Qty: 90 RF: 3 mycophenolate mofetil [CellCept] 250 mg capsule 1,000 mg PO BID RF: 0 febuxostat [Uloric] 80 mg tablet 80 mg PO QAM RF: 0 aspirin [Adult Low Dose Aspirin] 81 mg tablet,delayed release (DR/EC) 81 mg PO QAM RF: 0 tamsulosin [Flomax] 0.4 mg capsule 0.4 mg PO HS RF: 0 docusate sodium [Colace] 100 mg capsule 100 mg PO BID PRN (Reason: Constipation) RF: 0 multivitamin [Daily Multi-Vitamin] tablet 1 tab PO QAM RF: 0 cholecalciferol (vitamin D3) 1,000 unit capsule 1,000 units PO QAM RF: 0 prednisone 5 mg tablet 5 mg PO QAM RF: 0 cyclosporine 100 mg capsule 150 mg PO BID RF: 0 gabapentin [Neurontin] 300 mg capsule See Rx Instructions PO HS RF: 0 duloxetine 20 mg capsule,delayed release(DR/EC) 60 mg PO QAM RF: 0 magnesium oxide 400 mg magnesium capsule 800 mg PO BID RF: 0 albuterol sulfate 90 mcg/actuation HFA aerosol inhaler 2 inha INH Q6H PRN (Reason: shortness of breath or wheezing) Qty: 1 RF: 0 ferrous sulfate [iron] 325 mg (65 mg iron) Tablet 325 mg PO BID RF: 0 acetaminophen [Tylenol Extra Strength] 500 mg Tablet 1,000 mg PO QID PRN (Reason: Pain) RF: 0 warfarin [Jantoven] 7.5 mg tablet 7.5 mg PO QDD RF: 0 Discharge Orders: Discharge Order (Routine); Ordered 08/28/21 Ordered By: Rodrigo Rendon Admission Data Admit Date/Time: 08/27/21 14:22 Attending Provider: Rodrigo Rendon Admit Provider: Aicha Nava Primary Care Provider: Vinicius Ng Other Providers: Evan Nava Coding Level of Care Code D/C DAY MANAGEMENT >30 MINS Diagnoses Acute pain of left lower extremity M79.605 History of renal transplant Z94.0 Acute on chronic renal failure N17.9; N18.9 Acute renal failure type: unspecified BPH (benign prostatic hyperplasia) N40.0 Dyslipidemia E78.5 Sleep apnea G47.30 Anemia D64.9 Hypertension I10 Hypertension type: essential hypertension Depression F32.89 Depression Type: other depression GERD (gastroesophageal reflux disease) K21.9 Esophagitis presence: without esophagitis DVT (deep venous thrombosis) I82.409 DVT location: lower extremity Affected thrombotic vein of extremity: unspecified vein of extremity Chronicity: unspecified Laterality: unspecified laterality
[2021-08-28] MEDS: WARFARIN SOD 7.5 MG TAB PO SCH (17:27)
[2021-08-28 20:26] LABS: Urea Nitrogen, Random Urine 685 mg/dL
[2021-08-28] MEDS ORDERED: cycloSPORINE (SANDIMMUNE) 25 MG CAP PO SCH (21:00)
[2021-08-28] MEDS ORDERED: cycloSPORINE 100 MG CAP PO SCH (21:00)
== END 2021-08-28 18:45 | disposition home or self-care (01) | DRG 537 ==
LOC: ED 20:47 → 3N 20:47 → SUATTDRO 08-25 03:14 → 3N 08-25 03:41

== ENCOUNTER 2021-11-17 16:18 | Observation (INO) ==
[2021-11-17 17:35] LABS: Albumin Globulin Ratio 1.7 (0.9-2); Albumin Level 4.3 gm/dl (3.4-5.0); BUN Creatinine Ratio 21.8 (10-20); Bilirubin,Total 0.7 mg/dl (0.2-1.0); Calcium 9.2 mg/dl (8.5-10.1); Est GFR (African American) 17.2 ml/min; Est GFR (Non-African American) 14.8 ml/min; Globulin 2.6 gm/dl (2.5-4.0); Total Protein 6.9 gm/dl (6.0-8.3)
[2021-11-17 17:36] LABS: Troponin I High Sensitivity 7.8 pg/ml (0-20)
--- NOTE | 2021-11-17 18:14 | Emergency Department Note ---
Impression & Plan LORENZO (acute kidney injury), Anemia, Abnormal ECG ED Provider Note NAME: NAN MONTE AGE: 61 SEX: M : 1960 ARRIVES VIA: Walk-In INFORMANT: Patient ED PROVIDER(S): Anibal Cason DO CHIEF COMPLAINT: fall HPI: Patient is a 61-year-old male who presents to the ER following getting up from a chair yesterday. He became dizzy, lightheaded and passed out. This lasted for several seconds. There was no seizure activity. He did hit his head. Does take Coumadin. He has a mild head pain but just at the spot where he hit his head and right posterior occipital region. He did not notice this until today. Referred him in. He denies any chest pain or shortness of breath preceding or following the event. No dysuria urgency or frequency. He does have a renal transplant. Complains of left elbow pain which is been present for the past 10 days. ROS: See above HPI for pertinent positives & negatives. A total of 10 systems r eviewed and were otherwise negative. PAST MEDICAL HISTORY:See Below PAST SURGICAL HISTORY:See Below FAMILY HISTORY:See Below SOCIAL HISTORY:See Below HOME MEDICATIONS:See Below ALLERGIES:See Below VITALS:See Below PHYSICAL EXAMINATION: GENERAL: alert, well appearing, well nourished, no distress, non-toxic HEAD: normal cephalic, atraumatic EYE EXAM: normal conjunctiva, PERRL and EOM's grossly intact OROPHARYNX: no exudate, no erythema, lips, buccal mucosa, and tongue normal and mucous membranes are moist NECK: supple, no nuchal rigidity, no adenopathy, non-tender CHEST: stable to compression anteriorly and posteriorly LUNGS: clear to auscultation. Normal chest wall mechanics HEART: no murmurs, S1 normal and S2 normal ABDOMEN: abdomen soft, non-tender, normo-active bowel sounds, no masses, no rebound or guarding. PELVIS: stable to compression anteriorly and posteriorly BACK: Back is symmetrical on inspection and there is no deformity, no midline tenderness, no CVA tenderness. UPPER EXTREMITIES: Flexion-extension of the right shoulder elbow wrist and grasp intact. Small abrasion on dorsal surface of the right hand measuring 3 cm. No active bleeding. Tenderness to palpation on the left elbow with minimal flexion/extension. No tenderness throughout left shoulder wrist. Fistula with positive thrill in left forearm. LOWER EXTREMITIES: Flexion-extension, bilateral hips and ankles knees and EHL 5 out of 5 bilaterally. No tenderness on palpation. NEURO EXAM: Normal sensorium, cranial nerves II-XII grossly intact, normal speech, no gross weakness of arms, no gross weakness of legs. GCS: 15. MEDICAL DECISION MAKING: Patient is a 7-year-old male who presents ER following a syncopal episode yesterday when he got up from a chair. IV was established blood work was obtai alberto. Labs show no significant leukocytosis. Mild anemia at 9 consistent with previous. INR was 1.6 slightly subtherapeutic. Creatinine was elevated at 0.09. Mild acidosis at 20 with a gap of 12. Do favor this secondary from his uremia. LFTs bilirubin was unremarkable. Troponin and TSH was unremarkable. UA was clean. COVID was negative. Chest x-ray and CT of the head and cervical spine was unremarkable. X-rays of the elbow are unremarkable as well. He will benefit from following up with orthopedics. With the slight conduction delay and the syncope did discuss with patient regards to observing. He was agreeable. Will benefit from seeing Ortho for the left elbow as well Triage Nursing notes reviewed. Limited review of prior medical records performed Vital Signs: reviewed and remarkable for no significant abnormalities Differential diagnosis: Differential diagnoses include major intracranial, cervical, spinal, thoracic, a bdominal, pelvic and neurologic injury. Fracture, contusion, sprain, strain, laceration, abrasions included as well. ER treatment provided: See below Diagnostics interpreted by me: ECG:Sinus rhyth rate of 69 Left axis No PVCs QTC 458 Right bundle branch block #2 Sinus rhythm rate of 62 Left axis T wave inversions in lead III Septal Q waves Interventricular conduction delay QTC 434 Cardiac Monitoring: An order was placed for continuous cardiac monitoring. The monitor shows a rate of 66 with sinus rhythm. Laboratory studies: As stated above and show below. Imaging studies: CT head and cervical spine was negative Chest x-ray and x-ray of the elbow are unremarkable Consultation(s): Quan with Yovani Pizarro for further evaluation Procedures: none Critical Care: None Past Med/Surg History Medical History AV fistula DVT (deep venous thrombosis) End stage renal disease Family history of blood clots Gout History of basal cell carcinoma History of malignant melanoma of skin Hypertension Influenza A Nephrolithiasis Pneumonia due to COVID-19 virus Rectus sheath hematoma Sarcoidosis Umbilical hernia Venous insufficiency Venous stasis dermatitis Surgical History H/O colonoscopy History of cardiac cath History of melanoma excision History of tonsillectomy History of tooth extraction Kidney transplanted Family History Mother Stroke Heart disease Grandmother Cancer Lung disease Denies family history of Ovarian cancer Prostate cancer Colorectal cancer Social History Smoking Status: Never smoker Second Hand Exposure: No; Hx Alcohol Use: No Hx Substance Use: No Preferred Language: Icelandic Communication Ability: Effective Lead Developer Required: No Beliefs That Will Affect Care: None marital status: Current Living Situation: Spouse Current Living Situation Comment: spouse, sister, son current occupational status: employed current occupation: [employer] How many Children do You have: 1 Feels Safe at Home: Yes caffeine: Yes Dental Care, Regularly: Yes Seatbelt Use: always Sunscreen Use: Yes Assistive Devices: Walker Allergies Allergies Allergy/AdvReac Type Severity Reaction Status Date / Time allopurinol Allergy Unknown Rash Verified 11/17/21 22:10 Penicillins Allergy Unknown Unknown Verified 11/17/21 22:10 hydromorphone [From Dilaudid] AdvReac Severe confusion Verified 11/17/21 22:10 Home Meds Home Medications Medication Instructions Recorded Confirmed aspirin 81 mg tablet,delayed 81 mg PO QAM 04/24/19 11/17/21 release (Adult Low Dose Aspirin) cholecalciferol (vitamin D3) 25 1,000 units PO QAM 04/24/19 11/17/21 mcg (1,000 unit) capsule docusate sodium 100 mg capsule 100 mg PO BID PRN 04/24/19 11/17/21 (Colace) multivitamin (Daily Multi-Vitamin) 1 tab PO QAM 04/24/19 11/17/21 tamsulosin 0.4 mg capsule (Flomax) 0.4 mg PO HS 04/24/19 11/17/21 prednisone 5 mg tablet 5 mg PO QAM tab 05/29/19 11/17/21 mycophenolate mofetil 250 mg 1,000 mg PO BID cap 02/20/20 11/17/21 capsule (CellCept) febuxostat 80 mg tablet (Uloric) 80 mg PO QAM 03/06/20 11/17/21 cyclosporine 100 mg capsule 150 mg PO BID cap 06/16/21 11/17/21 magnesium oxide 800 mg PO BID cap 06/16/21 11/17/21 ferrous sulfate 325 mg (65 mg 325 mg PO BID 08/05/21 11/17/21 iron) tablet (iron) gabapentin 300 mg capsule 600 mg PO .AM & AFTERNOON cap 08/22/21 11/17/21 (Neurontin) acetaminophen 500 mg tablet 1,000 mg PO QID PRN 08/24/21 11/17/21 (Tylenol Extra Strength) gabapentin 300 mg capsule 900 mg PO HS 11/17/21 11/17/21 warfarin 5 mg tablet 5 mg PO DAILY 11/17/21 11/17/21 Previous Rx's Medication Instructions Recorded losartan 100 mg tablet 100 mg PO QAM #90 tab 11/04/20 albuterol sulfate 90 mcg/actuation 2 inha INH Q6H PRN #1 inhaler 04/06/21 aerosol inhaler omeprazole 40 mg capsule,delayed 40 mg PO QAM #90 cap 04/29/21 release furosemide 40 mg tablet (Lasix) 40 mg PO QAM #135 tab 08/29/21 duloxetine 60 mg capsule,delayed 60 mg PO QAM #90 cap 11/13/21 release Results & Data (ED) Vital Signs Vital Signs - 24 hr 11/17/21 16:19 11/17/21 17:52 11/17/21 18:00 Temperature 36.2 C L Temperature Source Temporal Artery Scan Pulse Rate - Lying Pulse Rate - Sitting Pulse Rate - Standing Pulse Rate 75 65 66 Pulse Rate from SpO2 Sensor 64 66 Respiratory Rate 18 21 15 Respiratory Effort / Characteristics Non-Labored Respiratory Depth Normal Blood Pressure - Lying Blood Pressure - Sitting Blood Pressure- Standing Blood Pressure 143/76 H 148/81 H Blood Pressure Mean 98 103 Pulse Oximetry 99 100 100 Oxygen Delivery Method Room Air Sepsis Recent Fever Within 48 Hours No Sepsis New/Unexplained Change in Mental Status No Sepsis Action Taken by Nursing No Action Required 11/17/21 20:57 11/17/21 21:00 11/17/21 21:11 Temperature Temperature Source Pulse Rate - Lying 65 Pulse Rate - Sitting 66 Pulse Rate - Standing 111 H Pulse Rate 64 Pulse Rate from SpO2 Sensor 64 Respiratory Rate 15 Respiratory Effort / Characteristics Respiratory Depth Blood Pressure - Lying 132/75 Blood Pressure - Sitting 145/84 H Blood Pressure- Standing 115/68 Blood Pressure 115/68 Blood Pressure Mean 83 Pulse Oximetry 97 Oxygen Delivery Method Sepsis Recent Fever Within 48 Hours Sepsis New/Unexplained Change in Mental Status Sepsis Action Taken by Nursing 11/17/21 22:00 Temperature Temperature Source Pulse Rate - Lying Pulse Rate - Sitting Pulse Rate - Standing Pulse Rate 64 Pulse Rate from SpO2 Sensor Respiratory Rate 15 Respiratory Effort / Characteristics Respiratory Depth Blood Pressure - Lying Blood Pressure - Sitting Blood Pressure- Standing Blood Pressure Blood Pressure Mean Pulse Oximetry Oxygen Delivery Method Sepsis Recent Fever Within 48 Hours Sepsis New/Unexplained Change in Mental Status Sepsis Action Taken by Nursing Laboratory Data Result diagrams: 11/17/21 18:00 11/17/21 16:45 Lab Results 11/17/21 11/17/21 11/17/21 Range/Units 16:45 16:45 16:45 WBC Cancelled RBC Cancelled Hgb Cancelled Hct Cancelled MCV Cancelled MCH Cancelled MCHC Cancelled RDW Std Deviation Cancelled RDW Coeff of Theresa Cancelled Plt Count Cancelled MPV Cancelled Immature Gran % (Auto) Cancelled Neut % (Auto) Cancelled Lymph % (Auto) Cancelled [place] % (Auto) Cancelled Eos % (Auto) Cancelled Baso % (Auto) Cancelled Neut # (Auto) Cancelled Lymph # (Auto) Cancelled [place] # (Auto) Cancelled Eos # (Auto) Cancelled Baso # (Auto) Cancelled Immature Gran # (Auto) Cancelled Absolute Nucleated RBC Cancelled Nucleated RBC % (auto) Cancelled Neutrophils % (Manual) Cancelled Band Neutrophils % Cancelled Lymphocytes % (Manual) Cancelled Prolymphocyte % Cancelled Reactive Lymphs % (Man) Cancelled Monocytes % (Manual) Cancelled Eosinophils % (Manual) Cancelled Basophils % (Manual) Cancelled Metamyelocytes % (Man) Cancelled Myelocytes % (Man) Cancelled Promyelocytes % (Man) Cancelled Blast Cells % (Manual) Cancelled Plasma Cell % (Manual) Cancelled Other Cells % Cancelled Nucleated RBC % Cancelled Neutrophils # (Manual) Cancelled Band Neutrophils # Cancelled Total Absolute Neuts Cancelled Lymphocytes # (Manual) Cancelled Prolymphocyte # Cancelled Reactive Lymphs # Cancelled Total Abs Lymphocytes Cancelled Monocytes # (Manual) Cancelled Eosinophils # (Manual) Cancelled Basophils # (Manual) Cancelled Metamyelocytes # (Man) Cancelled Myelocytes # (Manual) Cancelled Promyelocytes # (Man) Cancelled Blast Cells # (Man) Cancelled Plasma Cell # (Manual) Cancelled Other Cells # Cancelled Nucleated RBCs # (Man) Cancelled Hypersegmented Neuts Cancelled Hyposegmented Neuts Cancelled Hypogranular Neuts Cancelled Large Granular Lymphs Cancelled # Lrg Granular Lymphs Cancelled Hairy Cells Cancelled Smudge Cells Cancelled Toxic Granulation Cancelled Toxic Vacuolation Cancelled Dohle Bodies Cancelled Venessa Rods Cancelled Platelet Estimate Cancelled Hypogranular Platelets Cancelled Clumped Platelets Cancelled Giant Platelets Cancelled Platelet Satelliting Cancelled RBC Morphology Cancelled Polychromasia Cancelled Hypochromasia Cancelled Poikilocytosis Cancelled Basophilic Stippling Cancelled Anisocytosis Cancelled Microcytosis Cancelled Macrocytosis Cancelled Spherocytes Cancelled Pappenheimer Bodies Cancelled Sickle Cells Cancelled Target Cells Cancelled Tear Drop Cells Cancelled Ovalocytes Cancelled Stomatocytes Cancelled [place] Bodies Cancelled Echinocytes Cancelled Acanthocytes (Spur) Cancelled Rouleaux Cancelled RBC Agglutinates Cancelled Schistocytes Cancelled Sezary Cell Cancelled PT INR Sodium 136 (136-145) mmol/L Potassium 5.0 (3.5-5.1) mmol/L Chloride 104 (98-107) mmol/L Carbon Dioxide 20 L (21-32) mmol/L Anion Gap 12 H (3-11) BUN 89 H (6-23) mg/dl Creatinine 4.09 H (0.6-1.4) mg/dl Est Cr Clr Drug Dosing 26.0 ml/min Est GFR ( Amer) 17.2 ml/min Est GFR (Non-Af Amer) 14.8 ml/min BUN/Creatinine Ratio 21.8 H (10-20) Glucose 116 H (70-99(Fasting)) mg/dl Calcium 9.2 (8.5-10.1) mg/dl Total Bilirubin 0.7 (0.2-1.0) mg/dl AST 19 (13-39) U/L ALT 14 (7-52) U/L Alkaline Phosphatase 91 (34-104) U/L Troponin I High Sens 7.8 (0-20) pg/ml Total Protein 6.9 (6.0-8.3) gm/dl Albumin 4.3 (3.4-5.0) gm/dl Globulin 2.6 (2.5-4.0) gm/dl Albumin/Globulin Ratio 1.7 (0.9-2) TSH 1.094 (0.300-4.500) uIu/ml 11/17/21 11/17/21 11/17/21 Range/Units 16:45 18:00 18:00 WBC 7.89 RBC 2.96 L Hgb 9.0 L Hct 28.8 L MCV 97.3 MCH 30.4 MCHC 31.3 L RDW Std Deviation 52.8 H RDW Coeff of Theresa 14.9 H Plt Count 296 MPV 9.8 Immature Gran % (Auto) 0.5 Neut % (Auto) 83.4 Lymph % (Auto) 7.7 [place] % (Auto) 4.6 Eos % (Auto) 3.3 Baso % (Auto) 0.5 Neut # (Auto) 6.58 H Lymph # (Auto) 0.61 L [place] # (Auto) 0.36 Eos # (Auto) 0.26 Baso # (Auto) 0.04 Immature Gran # (Auto) 0.04 H Absolute Nucleated RBC Nucleated RBC % (auto) Neutrophils % (Manual) Band Neutrophils % Lymphocytes % (Manual) Prolymphocyte % Reactive Lymphs % (Man) Monocytes % (Manual) Eosinophils % (Manual) Basophils % (Manual) Metamyelocytes % (Man) Myelocytes % (Man) Promyelocytes % (Man) Blast Cells % (Manual) Plasma Cell % (Manual) Other Cells % Nucleated RBC % Neutrophils # (Manual) Band Neutrophils # Total Absolute Neuts Lymphocytes # (Manual) Prolymphocyte # Reactive Lymphs # Total Abs Lymphocytes Monocytes # (Manual) Eosinophils # (Manual) Basophils # (Manual) Metamyelocytes # (Man) Myelocytes # (Manual) Promyelocytes # (Man) Blast Cells # (Man) Plasma Cell # (Manual) Other Cells # Nucleated RBCs # (Man) Hypersegmented Neuts Hyposegmented Neuts Hypogranular Neuts Large Granular Lymphs # Lrg Granular Lymphs Hairy Cells Smudge Cells Toxic Granulation Toxic Vacuolation Dohle Bodies Venessa Rods Platelet Estimate Hypogranular Platelets Clumped Platelets Giant Platelets Platelet Satelliting RBC Morphology Polychromasia Hypochromasia Poikilocytosis Basophilic Stippling Anisocytosis Microcytosis Macrocytosis Spherocytes Pappenheimer Bodies Sickle Cells Target Cells Tear Drop Cells Ovalocytes Stomatocytes [place] Bodies Echinocytes Acanthocytes (Spur) Rouleaux RBC Agglutinates Schistocytes Sezary Cell PT Cancelled 16.7 H INR Cancelled 1.6 H Sodium (136-145) mmol/L Potassium (3.5-5.1) mmol/L Chloride (98-107) mmol/L Carbon Dioxide (21-32) mmol/L Anion Gap (3-11) BUN (6-23) mg/dl Creatinine (0.6-1.4) mg/dl Est Cr Clr Drug Dosing ml/min Est GFR ( Amer) ml/min Est GFR (Non-Af Amer) ml/min BUN/Creatinine Ratio (10-20) Glucose (70-99(Fasting)) mg/dl Calcium (8.5-10.1) mg/dl Total Bilirubin (0.2-1.0) mg/dl AST (13-39) U/L ALT (7-52) U/L Alkaline Phosphatase (34-104) U/L Troponin I High Sens (0-20) pg/ml Total Protein (6.0-8.3) gm/dl Albumin (3.4-5.0) gm/dl Globulin (2.5-4.0) gm/dl Albumin/Globulin Ratio (0.9-2) TSH (0.300-4.500) uIu/ml Administered Medications Discontinued Medications Sodium Chloride (Nss 1000ml) 1,000 mls @ 999 mls/hr IV .Q1H1M ONE Stop: 11/17/21 22:11 Last Infusion: 11/17/21 22:28 Dose: 0 mls/hr Documented by: [id number] Admin: 11/17/21 21:26 Dose: 999 mls/hr Documented by: [id number] Imaging Data Radiologist's Impression: Cervical Spine CT 11/17/21 18:11 CT cervical spine wo con CLINICAL HISTORY: fall TECHNIQUE: Multidetector row helical CT of the cervical spine was performed without administration of intravenous contrast. Coronal and sagittal reformat ions were obtained. Automated dose lowering techniques and/or adjustment according to patient size were utilized for this exam. Comparison: None available at the time of this dictation. FINDINGS: No acute fractures or subluxations are identified. Degenerative changes are seen in the visualized spine. The alignment is normal. Soft tissues are unremarkable. IMPRESSION: Degenerative changes without evidence of acute bony injury. ACT 112: Negative or not required by law. Electronically signed by: Mega Pan M.D. 11/17/2021 6:[address] 11/17/21 18:11 CT head/brain wo con CLINICAL HISTORY: MAJANO Technique: Contiguous axial CT images of the head were acquired from the base of the skull to the vertex without intravenous contrast administration. Images were viewed in brain, subdural and bone windows. Automated dose lowering techniques and/or adjustment according to patient size were utilized for this exam. Comparison: Comparison is made to CT head 09/10/2020 Findings: The ventricles, basal cisterns, and cerebral sulci are normal. There is no acute intracranial hemorrhage or evidence of acute territorial infarction. Neither mass effect, shift of the midline structures, nor abnormal extra-axial fluid collections are shown. Imaged portions of the paranasal sinuses and mastoid air cells are clear. The orbits appear normal. There are no acute fractures of the calvaria or scalp swelling. Impression: No acute intracranial hemorrhage, no evidence of acute territorial infarction or other acute intracranial disease process. ACT 112: Negative or not required by law. Electronically signed by: Mega Pan M.D. 11/17/2021 6:42 PM Chest X-Ray 11/17/21 18:14 XR chest 1V portable CLINICAL HISTORY: fall TECHNIQUE: Single frontal radiograph of the chest was obtained. Comparison: Comparison is made to chest radiograph 08/08/2021 FINDINGS: No lines and tubes are seen. Cardiomegaly is noted. Prominence and cephalization of the vasculature is seen. No evidence of pleural effusion or pneumothorax. IMPRESSION: Cardiomegaly with mild pulmonary edema. ACT 112: Negative or not required by law. Electronically signed by: Mega Pan M.D. 11/17/2021 7:08 PM Elbow X-Ray 11/17/21 18:14 XR elbow LT min 3V routine CLINICAL HISTORY: l elbow TECHNIQUE: 3 views of the left elbow were obtained. Comparison: None available at the time of this dictation. FINDINGS: There is no evidence of an acute fracture. Joint spaces are well-preserved. There is no prominence of the anterior or posterior fat pads to suggest an effusion. No soft tissue abnormality is seen. IMPRESSION: No evidence of acute osseous injury. ACT 112: Negative or not required by law. Electronically signed by: Mega Pan M.D. 11/17/2021 7:08 PM Discharge Plan Visit Data Chief Complaint: Head Injury, Minor Stated Complaint: FELL, HIT HEAD ED Provider: Anibal Cason Discharge Problem: LORENZO (acute kidney injury), Anemia, Abnormal ECG Patient Disposition: Admitted As Inpatient Discharge Instructions Interventions: ED Discharge Assessment Last Done: 11/18/21 00:00 Discharge Problem: Anemia Qualifiers: Anemia type: unspecified type Qualified Code(s): D64.9 - Anemia, unspecified
[2021-11-17 18:15] LABS: Basophils # (auto) 0.04 K/uL (0-0.2); Basophils % (auto) 0.5 %; Eosinophils # (auto) 0.26 K/uL (0-0.5); Eosinophils % (auto) 3.3 %; Hematocrit (blood only) 28.8 % (42-52); Immature Granulocytes # (auto) 0.04 K/uL (0.00-0.02); Immature Granulocytes % (auto) 0.5 %; Lymphocytes # (auto) 0.61 K/uL (1.2-3.4); Lymphocytes % (auto) 7.7 %; Mean Corpuscular Hemoglobin 30.4 pg (25-34); Mean Corpuscular Hgb Conc 31.3 g/dL (32-36); Mean Corpuscular Volume 97.3 fL (80-100); Mean Platelet Volume 9.8 fL (7.4-10.4); Monocytes # (auto) 0.36 K/uL (0.11-0.59); Monocytes % (auto) 4.6 %; Neutrophils # (auto) 6.58 K/uL (1.4-6.5); Neutrophils % (auto) 83.4 %; Platelet Count 296 K/uL (130-400); RDW Coefficient of Variation 14.9 % (11.5-14.5); RDW Standard Deviation 52.8 fL (36.4-46.3); Red Blood Count 2.96 M/uL (4.7-6.1); White Blood Count 7.89 K/uL (4.8-10.8)
[2021-11-17 18:29] LABS: INR 1.6 (0.9-1.1); Prothrombin Time 16.7 Seconds (9.0-12.0)
--- NOTE | 2021-11-17 18:43 | CT Scan Report ---
CT head/brain wo con CLINICAL HISTORY: MAJANO Technique: Contiguous axial CT images of the head were acquired from the base of the skull to the [place] without intravenous contrast administration. Images were viewed in brain, subdural and bone [facility]. Automated dose lowering techniques and/or adjustment according to patient size were utilized for this exam. Comparison: Comparison is made to CT head 09/10/2020 Findings: The ventricles, basal cisterns, and cerebral sulci are normal. There is no acute intracranial hemorrh age or evidence of acute territorial infarction. Neither mass effect, shift of the midline structures , nor abnormal extra-axial fluid collections are shown. Imaged portions of the paranasal sinuses and mastoid air cells are clear. The orbits appear normal. There are no acute fractures of the calvaria or scalp swelling. Impression: No acute intracranial hemorrhage, no evidence of acute territorial infarction or other acute intracra nial disease process. ACT 112: Negative or not required by law. Electronically signed by: Mega Pan M.D. 11/17/2021 6:42 PM
--- NOTE | 2021-11-17 18:54 | CT Scan Report ---
CT cervical spine wo con CLINICAL HISTORY: fall TECHNIQUE: Multidetector row helical CT of the cervical spine was performed without administration of intravenous contrast. Coronal and sagittal reformations were obtained. Automated dose lowering techn iques and/or adjustment according to patient size were utilized for this exam. Comparison: None available at the time of this dictation. FINDINGS: No acute fractures or subluxations are identified. Degenerative changes are seen in the visualized sp ine. The alignment is normal. Soft tissues are unremarkable. IMPRESSION: Degenerative changes without evidence of acute bony injury. ACT 112: Negative or not required by law. Electronically signed by: Mega Pan M.D. 11/17/2021 6:51 PM
--- NOTE | 2021-11-17 19:09 | XRay Report ---
XR elbow LT min 3V routine CLINICAL HISTORY: l elbow TECHNIQUE: 3 views of the left elbow were obtained. Comparison: None available at the time of this dictation. FINDINGS: There is no evidence of an acute fracture. Joint spaces are well-preserved. There is no prominence of the anterior or posterior fat pads to suggest an effusion. No soft tissue abnormality is seen. IMPRESSION: No evidence of acute osseous injury. ACT 112: Negative or not required by law. Electronically signed by: Mega Pan M.D. 11/17/2021 7:08 PM
--- NOTE | 2021-11-17 19:09 | XRay Report ---
XR chest 1V portable CLINICAL HISTORY: fall TECHNIQUE: Single frontal radiograph of the chest was obtained. Comparison: Comparison is made to chest radiograph 08/08/2021 FINDINGS: No lines and tubes are seen. Cardiomegaly is noted. Prominence and cephalization of the vasculature i s seen. No evidence of pleural effusion or pneumothorax. IMPRESSION: Cardiomegaly with mild pulmonary edema. ACT 112: Negative or not required by law. Electronically signed by: Mega Pan M.D. 11/17/2021 7:08 PM
[2021-11-17] MEDS ORDERED: SODIUM CHLORIDE 0.9% 1000ML 1,000 ML IV ONE (21:11)
[2021-11-17 21:46] LABS: Appearance Urine Clear (Clear); Bilirubin Urine Negative (Negative); Blood Urine Negative (Negative); Color Urine Yellow; Glucose Urine UA Negative (Negative); Ketones Urine Negative (Negative); Leukocyte Esterase Urine Negative (Negative); Nitrite Urine Negative (Negative); Protein Urine Negative (Negative); Urobilinogen Urine Negative (Negative)
--- NOTE | 2021-11-17 23:00 | History & Physical Report ---
Date of Service November 17, 2021 Assessment & Plan (1) Syncopal episodes: Plan: Syncopal episode- Secondary to dehydration on a warm day being outside No further issues today Status post 1 L normal saline in ED Give another 500 mL normal saline at 80 mils per hour Follow on telemetry overnight for possible arrhythmia, although no ectopy noted on monitor in the ED and (2) End stage renal disease: Plan: End-stage renal disease/renal transplant status- Creatinine 4.09 on admission, with range 3.17-4.20 Repeat laboratories after above fluids (3) Renal transplant, status post: Plan: Continue routine medications: Cyclosporine, furosemide, losartan, mycophenolate (4) Dehydration: Plan: See above (5) Gout: Plan: Continue Febuxostat (6) DVT (deep venous thrombosis): Plan: Continue warfarin, giving a dose tonight as well INR mildly subtherapeutic at 1.6 (7) BPH (benign prostatic hyperplasia): Plan: Continue tamsulosin (8) GERD (gastroesophageal reflux disease): Plan: Continue omeprazole/pantoprazole (9) Sleep apnea: Plan: CPAP at at bedtime (10) Immunocompromised: Plan: Continue medications as above, no signs of infection History of Present Illness Chief Complaint: The patient reports that he was sitting outside with friends and family on Father's Day, thought he was pretty much keeping up with his water intake, however, when he got up from his chair, and walked into the kitchen, he ended up passing out, and did not realize until today that he hit his head as well. Primary Care Provider: Vinicius Ng MD The patient is a 61-year-old male with a past medical history including renal transplant status, CKD, DVT, rhabdomyolysis, BPH, sarcoidosis, GERD, dyslipidemia, chronic anticoagulant use, peripheral neuropathy, FARNAZ, GERD, BPH, with immunocompromise status. He reports that he usually drinks 92 ounces a day, however, yesterday, he had been up to about half of that, before having a syncopal episode as described. He realized today that his right parieto- occipital area was mildly tender, and his insisted that he call the outpatient office, who then advised him to come to the ED due to concerns regarding head trauma while on anticoagulation. The patient has no other complaints at this time. He was given 1 L normal saline by the ED. Allergies Allergy/AdvReac Type Severity Reaction Status Date / Time allopurinol Allergy Unknown Rash Verified 11/17/21 22:10 Penicillins Allergy Unknown Unknown Verified 11/17/21 22:10 hydromorphone [From Dilaudid] AdvReac Severe confusion Verified 11/17/21 22:10 Home Medications Medication Instructions Recorded Confirmed Type aspirin 81 mg tablet,delayed 81 mg PO QAM 04/24/19 11/17/21 History release (Adult Low Dose Aspirin) cholecalciferol (vitamin D3) 25 1,000 units PO QAM 04/24/19 11/17/21 History mcg (1,000 unit) capsule docusate sodium 100 mg capsule 100 mg PO BID PRN 04/24/19 11/17/21 History (Colace) multivitamin (Daily Multi-Vitamin) 1 tab PO QAM 04/24/19 11/17/21 History tamsulosin 0.4 mg capsule (Flomax) 0.4 mg PO HS 04/24/19 11/17/21 History prednisone 5 mg tablet 5 mg PO QAM tab 05/29/19 11/17/21 History mycophenolate mofetil 250 mg 1,000 mg PO BID cap 02/20/20 11/17/21 History capsule (CellCept) febuxostat 80 mg tablet (Uloric) 80 mg PO QAM 03/06/20 11/17/21 History losartan 100 mg tablet 100 mg PO QAM #90 tab 11/04/20 11/17/21 Rx albuterol sulfate 90 mcg/actuation 2 inha INH Q6H PRN #1 inhaler 04/06/21 11/17/21 Rx aerosol inhaler omeprazole 40 mg capsule,delayed 40 mg PO QAM #90 cap 04/29/21 11/17/21 Rx release cyclosporine 100 mg capsule 150 mg PO BID cap 06/16/21 11/17/21 History magnesium oxide 800 mg PO BID cap 06/16/21 11/17/21 History ferrous sulfate 325 mg (65 mg 325 mg PO BID 08/05/21 11/17/21 History iron) tablet (iron) gabapentin 300 mg capsule 600 mg PO .AM & AFTERNOON cap 08/22/21 11/17/21 History (Neurontin) acetaminophen 500 mg tablet 1,000 mg PO QID PRN 08/24/21 11/17/21 History (Tylenol Extra Strength) furosemide 40 mg tablet (Lasix) 40 mg PO QAM #135 tab 08/29/21 11/17/21 Rx duloxetine 60 mg capsule,delayed 60 mg PO QAM #90 cap 11/13/21 11/17/21 Rx release gabapentin 300 mg capsule 900 mg PO HS 11/17/21 11/17/21 History warfarin 5 mg tablet 5 mg PO DAILY 11/17/21 11/17/21 History Past Med/Surg History Medical History (Updated 11/18/21 @ 03:14 by Yovani Pizarro MD) AV fistula LEFT WRIST> NO DIALYSIS CURRENTLY> FISTULA STILL WORKS PER PT DVT (deep venous thrombosis) Right- 04/2019 following transplant > Coumadin S/P LEFT LEG SURGERY (EXCISION OF MELANOMA LEFT LEG) 10 YEARS AGO. End stage renal disease follows Dr. Aguilera and transplant team at [facility] Family history of blood clots Gout History of basal cell carcinoma History of malignant melanoma of skin Hypertension Influenza A Nephrolithiasis Pneumonia due to COVID-19 virus Rectus sheath hematoma Sarcoidosis Umbilical hernia Venous insufficiency Venous stasis dermatitis Surgical History H/O colonoscopy History of cardiac cath 01/2018 > [facility] > NO STENTS History of melanoma excision left calf History of tonsillectomy History of tooth extraction Kidney transplanted APR 04, 2019 > [facility] > right side Family History Mother Stroke Heart disease Grandmother Cancer Lung disease Denies family history of Ovarian cancer Prostate cancer Colorectal cancer Social History Smoking Status: Never smoker Second Hand Exposure: No; Hx Alcohol Use: No Hx Substance Use: No Preferred Language: Arabic Communication Ability: Effective Lockstitch Waistline Joiner Required: No Beliefs That Will Affect Care: None marital status: Current Living Situation: Spouse Current Living Situation Comment: spouse, sister, son current occupational status: employed current occupation: [employer] How many Children do You have: 1 Other Information That Helps Us Care for You: No Feels Safe at Home: Yes Safety Concerns: Feels Safe At This Time caffeine: Yes Dental Care, Regularly: Yes Seatbelt Use: always Sunscreen Use: Yes Assistive Devices: Glasses Review of Systems Review of Systems: The patient denies chest pain, palpitations, shortness of breath, dyspnea on exertion, cough, sore throat, fevers, chills, sweats, weight change, fatigue, nausea, vomiting, diarrhea , constipation, abdominal pain, pelvic pain, blood in urine or stool, dysuria, urinary frequency or urgency, lightheadedness, dizziness, headache, rash, abnormal bruising or bleeding, focal or generalized weakness, numbness or tingling in arms or legs, generalized arthralgias or myalgias, back or neck pain, or night sweats. The review of systems is otherwise negative other than for that already noted above, and at least 10 systems have been reviewed. Physical Exam Physical Exam: The patient is awake, alert and oriented 3, well developed and well nourished, normocephalic and atraumatic, lying in bed and in no acute distress. HEENT--PERRL, EOMI, mucous membranes and oropharynx normal. Neck--supple. No JVD. No bruits. Thyroid normal, trachea midline, no adenopathy. Heart--normal S1 and S2. No murmurs, rubs or gallops. Lungs--clear bilaterally, no respiratory distress, no accessory muscle use. Abdomen--normal bowel sounds and soft. Nontender. Nondistended, no hernias or masses, no organomegaly. Extremities--no cyanosis or clubbing. No edema. Dermatologic--chronic venous stasis changes bilaterally Neurologic--cranial nerves II through XII grossly intact. Rheumatologic--normal range of motion. Psychiatric--normal affect. Results & Data Results & Data ([facility]) Vital Signs (Past 12 Hours) Vital Signs Temp Pulse Resp BP Pulse Ox 11/17/21 18:00 66 15 100 11/17/21 17:52 65 21 148/81 H 100 11/17/21 16:19 36.2 C L 75 18 143/76 H 99 Laboratory Results Laboratory Results WBC 7.89 K/uL (4.8-10.8) 11/17/21 18:00 RBC 2.96 M/uL (4.7-6.1) L 11/17/21 18:00 Hgb 9.0 g/dL (14.0-18.0) L 11/17/21 18:00 Hct 28.8 % (42-52) L 11/17/21 18:00 MCV 97.3 fL (80-100) 11/17/21 18:00 MCH 30.4 pg (25-34) 11/17/21 18:00 MCHC 31.3 g/dL (32-36) L 11/17/21 18:00 RDW Std Deviation 52.8 fL (36.4-46.3) H 11/17/21 18:00 RDW Coeff of Theresa 14.9 % (11.5-14.5) H 11/17/21 18:00 Plt Count 296 K/uL (130-400) 11/17/21 18:00 MPV 9.8 fL (7.4-10.4) 11/17/21 18:00 Immature Gran % (Auto) 0.5 % 11/17/21 18:00 Neut % (Auto) 83.4 % 11/17/21 18:00 Lymph % (Auto) 7.7 % 11/17/21 18:00 [place] % (Auto) 4.6 % 11/17/21 18:00 Eos % (Auto) 3.3 % 11/17/21 18:00 Baso % (Auto) 0.5 % 11/17/21 18:00 Neut # (Auto) 6.58 K/uL (1.4-6.5) H 11/17/21 18:00 Lymph # (Auto) 0.61 K/uL (1.2-3.4) L 11/17/21 18:00 [place] # (Auto) 0.36 K/uL (0.11-0.59) 11/17/21 18:00 Eos # (Auto) 0.26 K/uL (0-0.5) 11/17/21 18:00 Baso # (Auto) 0.04 K/uL (0-0.2) 11/17/21 18:00 Immature Gran # (Auto) 0.04 K/uL (0.00-0.02) H 11/17/21 18:00 Absolute Nucleated RBC Cancelled 11/17/21 16:45 Nucleated RBC % (auto) Cancelled 11/17/21 16:45 Neutrophils % (Manual) Cancelled 11/17/21 16:45 Band Neutrophils % Cancelled 11/17/21 16:45 Lymphocytes % (Manual) Cancelled 11/17/21 16:45 Prolymphocyte % Cancelled 11/17/21 16:45 Reactive Lymphs % (Man) Cancelled 11/17/21 16:45 Monocytes % (Manual) Cancelled 11/17/21 16:45 Eosinophils % (Manual) Cancelled 11/17/21 16:45 Basophils % (Manual) Cancelled 11/17/21 16:45 Metamyelocytes % (Man) Cancelled 11/17/21 16:45 Myelocytes % (Man) Cancelled 11/17/21 16:45 Promyelocytes % (Man) Cancelled 11/17/21 16:45 Blast Cells % (Manual) Cancelled 11/17/21 16:45 Plasma Cell % (Manual) Cancelled 11/17/21 16:45 Other Cells % Cancelled 11/17/21 16:45 Nucleated RBC % Cancelled 11/17/21 16:45 Neutrophils # (Manual) Cancelled 11/17/21 16:45 Band Neutrophils # Cancelled 11/17/21 16:45 Total Absolute Neuts Cancelled 11/17/21 16:45 Lymphocytes # (Manual) Cancelled 11/17/21 16:45 Prolymphocyte # Cancelled 11/17/21 16:45 Reactive Lymphs # Cancelled 11/17/21 16:45 Total Abs Lymphocytes Cancelled 11/17/21 16:45 Monocytes # (Manual) Cancelled 11/17/21 16:45 Eosinophils # (Manual) Cancelled 11/17/21 16:45 Basophils # (Manual) Cancelled 11/17/21 16:45 Metamyelocytes # (Man) Cancelled 11/17/21 16:45 Myelocytes # (Manual) Cancelled 11/17/21 16:45 Promyelocytes # (Man) Cancelled 11/17/21 16:45 Blast Cells # (Man) Cancelled 11/17/21 16:45 Plasma Cell # (Manual) Cancelled 11/17/21 16:45 Other Cells # Cancelled 11/17/21 16:45 Nucleated RBCs # (Man) Cancelled 11/17/21 16:45 Hypersegmented Neuts Cancelled 11/17/21 16:45 Hyposegmented Neuts Cancelled 11/17/21 16:45 Hypogranular Neuts Cancelled 11/17/21 16:45 Large Granular Lymphs Cancelled 11/17/21 16:45 # Lrg Granular Lymphs Cancelled 11/17/21 16:45 Hairy Cells Cancelled 11/17/21 16:45 Smudge Cells Cancelled 11/17/21 16:45 Toxic Granulation Cancelled 11/17/21 16:45 Toxic Vacuolation Cancelled 11/17/21 16:45 Dohle Bodies Cancelled 11/17/21 16:45 Venessa Rods Cancelled 11/17/21 16:45 Platelet Estimate Cancelled 11/17/21 16:45 Hypogranular Platelets Cancelled 11/17/21 16:45 Clumped Platelets Cancelled 11/17/21 16:45 Giant Platelets Cancelled 11/17/21 16:45 Platelet Satelliting Cancelled 11/17/21 16:45 RBC Morphology Cancelled 11/17/21 16:45 Polychromasia Cancelled 11/17/21 16:45 Hypochromasia Cancelled 11/17/21 16:45 Poikilocytosis Cancelled 11/17/21 16:45 Basophilic Stippling Cancelled 11/17/21 16:45 Anisocytosis Cancelled 11/17/21 16:45 Microcytosis Cancelled 11/17/21 16:45 Macrocytosis Cancelled 11/17/21 16:45 Spherocytes Cancelled 11/17/21 16:45 Pappenheimer Bodies Cancelled 11/17/21 16:45 Sickle Cells Cancelled 11/17/21 16:45 Target Cells Cancelled 11/17/21 16:45 Tear Drop Cells Cancelled 11/17/21 16:45 Ovalocytes Cancelled 11/17/21 16:45 Stomatocytes Cancelled 11/17/21 16:45 Phillips-Noonday Bodies Cancelled 11/17/21 16:45 Echinocytes Cancelled 11/17/21 16:45 Acanthocytes (Spur) Cancelled 11/17/21 16:45 Rouleaux Cancelled 11/17/21 16:45 RBC Agglutinates Cancelled 11/17/21 16:45 Schistocytes Cancelled 11/17/21 16:45 Sezary Cell Cancelled 11/17/21 16:45 PT 16.7 Seconds (9.0-12.0) H 11/17/21 18:00 INR 1.6 (0.9-1.1) H 11/17/21 18:00 Sodium 136 mmol/L (136-145) 11/17/21 16:45 Potassium 5.0 mmol/L (3.5-5.1) 11/17/21 16:45 Chloride 104 mmol/L (98-107) 11/17/21 16:45 Carbon Dioxide 20 mmol/L (21-32) L 11/17/21 16:45 Anion Gap 12 (3-11) H 11/17/21 16:45 BUN 89 mg/dl (6-23) H 11/17/21 16:45 Creatinine 4.09 mg/dl (0.6-1.4) H 11/17/21 16:45 Est Cr Clr Drug Dosing 26.0 ml/min 11/17/21 16:45 Est GFR ( Amer) 17.2 ml/min 11/17/21 16:45 Est GFR (Non-Af Amer) 14.8 ml/min 11/17/21 16:45 BUN/Creatinine Ratio 21.8 (10-20) H 11/17/21 16:45 Glucose 116 mg/dl (70-99(Fasting)) H 11/17/21 16:45 Calcium 9.2 mg/dl (8.5-10.1) 11/17/21 16:45 Total Bilirubin 0.7 mg/dl (0.2-1.0) 11/17/21 16:45 AST 19 U/L (13-39) 11/17/21 16:45 ALT 14 U/L (7-52) 11/17/21 16:45 Alkaline Phosphatase 91 U/L (34-104) 11/17/21 16:45 Troponin I High Sens 7.8 pg/ml (0-20) 11/17/21 16:45 Total Protein 6.9 gm/dl (6.0-8.3) 11/17/21 16:45 Albumin 4.3 gm/dl (3.4-5.0) 11/17/21 16:45 Globulin 2.6 gm/dl (2.5-4.0) 11/17/21 16:45 Albumin/Globulin Ratio 1.7 (0.9-2) 11/17/21 16:45 TSH 1.094 uIu/ml (0.300-4.500) 11/17/21 16:45 Urine Color Yellow 11/17/21 Unknown Urine Appearance Clear (Clear) 11/17/21 Unknown Urine pH 5.0 (4.5-7.5) 11/17/21 Unknown Ur Specific [place] 1.010 (1.000-1.030) 11/17/21 Unknown Urine Protein Negative (Negative) 11/17/21 Unknown Urine Glucose (UA) Negative (Negative) 11/17/21 Unknown Urine Ketones Negative (Negative) 11/17/21 Unknown Urine Blood Negative (Negative) 11/17/21 Unknown Urine Nitrite Negative (Negative) 11/17/21 Unknown Urine Bilirubin Negative (Negative) 11/17/21 Unknown Urine Urobilinogen Negative (Negative) 11/17/21 Unknown Ur Leukocyte Esterase Negative (Negative) 11/17/21 Unknown SARS-CoV-2, RNA, NAAT NEGATIVE (NEGATIVE) 11/17/21 Unknown Impressions Cervical Spine CT 11/17/21 18:11 CT cervical spine wo con CLINICAL HISTORY: fall TECHNIQUE: Multidetector row helical CT of the cervical spine was performed without administration of intravenous contrast. Coronal and sagittal reformations were obtained. Automated dose lowering techniques and/or adjustment according to patient size were utilized for this exam. Comparison: None available at the time of this dictation. FINDINGS: No acute fractures or subluxations are identified. Degenerative changes are seen in the visualized spine. The alignment is normal. Soft tissues are unremarkable. IMPRESSION: Degenerative changes without evidence of acute bony injury. ACT 112: Negative or not required by law. Electronically signed by: Mega Pan M.D. 11/17/2021 6:[address] 11/17/21 18:11 CT head/brain wo con CLINICAL HISTORY: MAJANO Technique: Contiguous axial CT images of the head were acquired from the base of the skull to the vertex without intravenous contrast administration. Images were viewed in brain, subdural and bone windows. Automated dose lowering techniques and/or adjustment according to patient size were utilized for this exam. Comparison: Comparison is made to CT head 09/10/2020 Findings: The ventricles, basal cisterns, and cerebral sulci are normal. There is no acute intracranial hemorrhage or evidence of acute territorial infarction. Neither mass effect, shift of the midline structures, nor abnormal extra-axial fluid collections are shown. Imaged portions of the paranasal sinuses and mastoid air cells are clear. The orbits appear normal. There are no acute fractures of the calvaria or scalp swelling. Impression: No acute intracranial hemorrhage, no evidence of acute territorial infarction or other acute intracranial disease process. ACT 112: Negative or not required by law. Electronically signed by: Mega Pan M.D. 11/17/2021 6:42 PM Chest X-Ray 11/17/21 18:14 XR chest 1V portable CLINICAL HISTORY: fall TECHNIQUE: Single frontal radiograph of the chest was obtained. Comparison: Comparison is made to chest radiograph 08/08/2021 FINDINGS: No lines and tubes are seen. Cardiomegaly is noted. Prominence and cephalization of the vasculature is seen. No evidence of pleural effusion or pneumothorax. IMPRESSION: Cardiomegaly with mild pulmonary edema. ACT 112: Negative or not required by law. Electronically signed by: Mega Pan M.D. 11/17/2021 7:08 PM Elbow X-Ray 11/17/21 18:14 XR elbow LT min 3V routine CLINICAL HISTORY: l elbow TECHNIQUE: 3 views of the left elbow were obtained. Comparison: None available at the time of this dictation. FINDINGS: There is no evidence of an acute fracture. Joint spaces are well-preserved. There is no prominence of the anterior or posterior fat pads to suggest an effusion. No soft tissue abnormality is seen. IMPRESSION: No evidence of acute osseous injury. ACT 112: Negative or not required by law. Electronically signed by: Mega Pan M.D. 11/17/2021 7:08 PM Code Status & VTE Plan Code Status Full code VTE Prophylaxis Plan VTE Prophylaxis will be ordered: Yes PG Care Time/CCT Total # of Minutes Spent Total Time Spent with Patient: Total time spent is greater than 50% in coordination of care (as documented) at patient's floor/unit and/or counseling patient: Coding Level of Care Code INT OBSERVATION CARE 70M LVL 3 Diagnoses End stage renal disease N18.6 Syncopal episodes R55 Dehydration E86.0 Gout M10.9 Renal transplant, status post Z94.0 DVT (deep venous thrombosis) I82.409 DVT location: lower extremity Affected thrombotic vein of extremity: unspecified vein of extremity Chronicity: unspecified Laterality: unspecified laterality BPH (benign prostatic hyperplasia) N40.0 GERD (gastroesophageal reflux disease) K21.9 Sleep apnea G47.30 Immunocompromised D89.9 (1) DVT (deep venous thrombosis) DVT location: lower extremity Affected thrombotic vein of extremity: unspecified vein of extremity Chronicity: unspecified Laterality: unspecified laterality Qualified Code(s): I82.409 - Acute embolism and thrombosis of unspecified deep veins of unspecified lower extremity
[2021-11-18] MEDS ORDERED: ALBUTEROL HFA 8 GM INHALER INH PRN (00:38)
[2021-11-18] MEDS ORDERED: DOCUSATE SODIUM 100 MG CAP PO PRN (00:38)
[2021-11-18] MEDS ORDERED: cycloSPORINE 100 MG CAP PO SCH (00:38)
[2021-11-18] MEDS ORDERED: ACETAMINOPHEN 500 MG TAB PO PRN (00:38)
[2021-11-18] MEDS ORDERED: SODIUM CHLORIDE 0.9% 1000ML 500 ML IV SCH (01:30)
[2021-11-18] MEDS: MAGNESIUM OXIDE 400 MG TAB PO SCH ×2 (01:47→08:39)
[2021-11-18] MEDS: cycloSPORINE (SANDIMMUNE) 25 MG CAP PO SCH ×2 (01:47→08:39)
[2021-11-18] MEDS: MYCOPHENOLATE MOFETIL 250 MG CAP PO SCH ×2 (01:47→08:36)
[2021-11-18] MEDS: cycloSPORINE 100 MG CAP PO SCH ×2 (01:47→08:38)
[2021-11-18] MEDS: FERROUS SULFATE 325 MG TAB PO SCH ×2 (01:47→08:37)
[2021-11-18] MEDS: WARFARIN SOD 5 MG TAB PO SCH ×2 (02:03→16:15)
[2021-11-18 07:32] LABS: Basophils # (auto) 0.04 K/uL (0-0.2); Basophils % (auto) 0.6 %; Eosinophils # (auto) 0.25 K/uL (0-0.5); Eosinophils % (auto) 3.7 %; Hematocrit (blood only) 26.3 % (42-52); Hemoglobin 8.3 g/dL (14.0-18.0); Immature Granulocytes # (auto) 0.02 K/uL (0.00-0.02); Immature Granulocytes % (auto) 0.3 %; Lymphocytes # (auto) 0.71 K/uL (1.2-3.4); Lymphocytes % (auto) 10.4 %; Mean Corpuscular Hemoglobin 30.1 pg (25-34); Mean Corpuscular Hgb Conc 31.6 g/dL (32-36); Mean Corpuscular Volume 95.3 fL (80-100); Mean Platelet Volume 9.9 fL (7.4-10.4); Monocytes # (auto) 0.11 K/uL (0.11-0.59); Monocytes % (auto) 1.6 %; Neutrophils # (auto) 5.69 K/uL (1.4-6.5); Neutrophils % (auto) 83.4 %; Platelet Count 303 K/uL (130-400); RDW Coefficient of Variation 15.1 % (11.5-14.5); RDW Standard Deviation 52.1 fL (36.4-46.3); Red Blood Count 2.76 M/uL (4.7-6.1); White Blood Count 6.82 K/uL (4.8-10.8)
[2021-11-18 07:44] LABS: INR 1.5 (0.9-1.1); Partial Thromboplastin Ratio 1.4; Partial Thromboplastin Time 39.4 Seconds (21.0-31.0); Prothrombin Time 15.9 Seconds (9.0-12.0)
[2021-11-18 07:51] LABS: Albumin Globulin Ratio 1.6 (0.9-2); Albumin Level 3.8 gm/dl (3.4-5.0); BUN Creatinine Ratio 21.8 (10-20); Bilirubin,Total 0.6 mg/dl (0.2-1.0); Calcium 8.7 mg/dl (8.5-10.1); Creatinine Clr Calc Pharmacy 27.8 ml/min; Est GFR (African American) 18.5 ml/min; Globulin 2.4 gm/dl (2.5-4.0); Magnesium 2.8 mg/dl (1.7-2.4); Potassium 5.2 mmol/L (3.5-5.1); Total Protein 6.2 gm/dl (6.0-8.3)
[2021-11-18] MEDS: GABAPENTIN 600 MG TAB PO SCH ×2 (08:37→14:31)
[2021-11-18] MEDS ORDERED: PANTOprazole 40 MG TAB PO SCH (09:00)
[2021-11-18] MEDS ORDERED: CHOLECALCIFEROL 1,000 UNITS 25 MCG TAB PO SCH (09:00)
[2021-11-18] MEDS ORDERED: predniSONE 5 MG TAB PO SCH (09:00)
[2021-11-18] MEDS ORDERED: DULoxetine HCL 60 MG CAP PO SCH (09:00)
[2021-11-18] MEDS ORDERED: ASPIRIN 81 MG ECTAB PO SCH (09:00)
[2021-11-18] MEDS ORDERED: LOSARTAN POTASSIUM 50 MG TAB PO SCH (09:00)
[2021-11-18] MEDS ORDERED: MULTIVITAMIN TAB PO SCH (09:00)
--- NOTE | 2021-11-18 13:20 | Electrocardiogram Report ---
Test Reason : Blood Pressure : / mmHG Vent. Rate : 069 BPM Atrial Rate : 312 BPM P-R Int : 000 ms QRS Dur : 142 ms QT Int : 428 ms P-R-T Axes : 061 -45 020 degrees QTc Int : 458 ms Poor data quality, interpretation may be adversely affected Atrial flutter Left axis deviation Right bundle branch block Abnormal ECG When compared with ECG of 25-AUG-2021 02:21, Atrial flutter has replaced Sinus rhythm Right bundle branch block is now Present Confirmed by Vinicius Yeager ([id number]) on 11/18/2021 1:19:54 PM Referred By: Vinicius Ng Confirmed By:Vinicius Yeager
--- NOTE | 2021-11-18 13:25 | Electrocardiogram Report ---
Test Reason : Blood Pressure : / mmHG Vent. Rate : 062 BPM Atrial Rate : 062 BPM P-R Int : 182 ms QRS Dur : 134 ms QT Int : 428 ms P-R-T Axes : 012 -44 008 degrees QTc Int : 434 ms Sinus rhythm with Premature ventricular complexes or Fusion complexes Left axis deviation Non-specific intra-ventricular conduction block Abnormal ECG When compared with ECG of 17-NOV-2021 16:27, (unconfirmed) Sinus rhythm has replaced Atrial flutter Confirmed by Vinicius Yeager ([id number]) on 11/18/2021 1:25:25 PM Referred By: Vinicius Ng Confirmed By:Vinicius Yeager
[2021-11-18] MEDS ORDERED: TAMSULOSIN HCL 0.4 MG CAP PO SCH (21:00)
[2021-11-18] MEDS ORDERED: GABAPENTIN 300 MG CAP PO SCH (21:00)
--- NOTE | 2021-11-19 08:15 | Discharge Summary ---
Date of Service November 19, 2021 Admission HPI Per Admitting Provider The patient is a 61-year-old male with a past medical history including renal transplant status, CKD, DVT, rhabdomyolysis, BPH, sarcoidosis, GERD, dyslipidemia, chronic anticoagulant use, peripheral neuropathy, FARNAZ, GERD, BPH, with immunocompromise status. He reports that he usually drinks 92 ounces a day, however, yesterday, he had been up to about half of that, before having a syncopal episode as described. He realized today that his right parieto- occipital area was mildly tender, and his insisted that he call the outpatient office, who then advised him to come to the ED due to concerns regarding head trauma while on anticoagulation. The patient has no other complaints at this time. He was given 1 L normal saline by the ED. Discharge Data Allergies Allergy/AdvReac Type Severity Reaction Status Date / Time allopurinol Allergy Unknown Rash Verified 11/17/21 22:10 Penicillins Allergy Unknown Unknown Verified 11/17/21 22:10 hydromorphone [From Dilaudid] AdvReac Severe confusion Verified 11/17/21 22:10 Consultations 11/17/21 21:26 ED Decision to Admit Stat Ordered Studies 11/17/21 18:11 CT cervical spine wo con Stat CT head/brain wo con Stat Hospital Course (1) Syncopal episodes: Syncopal episode- Secondary to dehydration on a warm day being outside No further issues today Status post 1 L normal saline in ED Give another 500 mL normal saline at 80 mils per hour Follow on telemetry overnight for possible arrhythmia, although no ectopy noted on monitor in the ED and (2) End stage renal disease: End-stage renal disease/renal transplant status- Creatinine 4.09 on admission, with range 3.17-4.20 Repeat laboratories after above fluids (3) Renal transplant, status post: Continue routine medications: Cyclosporine, furosemide, losartan, mycophenolate (4) Dehydration: See above (5) Gout: Continue Febuxostat (6) DVT (deep venous thrombosis): Continue warfarin, giving a dose tonight as well INR mildly subtherapeutic at 1.6 (7) BPH (benign prostatic hyperplasia): Continue tamsulosin (8) GERD (gastroesophageal reflux disease): Continue omeprazole/pantoprazole (9) Sleep apnea: CPAP at at bedtime (10) Immunocompromised: Continue medications as above, no signs of infection Discharge Plan Discharge Items Patient Disposition: Home - Self-Care Reason For Visit: SYNCOPE Discharge Diagnosis: Blood pressure decreased when standing Activity: Resume your previous activity Non-emergency contact: Primary Care Provider Call non-emergency contact if: you have any medication questions Follow-up/Referrals: Vinicius Ng MD [Primary Care Provider] - 12/19/21 10:30 am (Appointment with Delfina Russell PA-C) Diet: Heart Healthy Addtl Attending Provider Instructions: You were found to have low blood pressure when you stood up causing you to fall. While you were in the hospital you did not present with any discrepancies in your heart rhythm. A CT scan of the head was also negative for a bleed. In regards to plans to help limit these episodes, we will cut back on your losartan to 50 mg once daily. Will also decrease your lasix to as needed instead of daily. recommend checking blood work in a week to recheck your renal function Followup with Dr. Aguilera on your regular scheduled appointment. Pending Studies at Discharge: No Stand-Alone Forms: [facility] Medications and DC Order Prescriptions: New losartan 50 mg tablet 50 mg PO DAILY Qty: 30 RF: 0 Continued omeprazole 40 mg capsule,delayed release(DR/EC) 40 mg PO QAM Qty: 90 RF: 3 mycophenolate mofetil [CellCept] 250 mg capsule 1,000 mg PO BID RF: 0 febuxostat [Uloric] 80 mg tablet 80 mg PO QAM RF: 0 aspirin [Adult Low Dose Aspirin] 81 mg tablet,delayed release (DR/EC) 81 mg PO QAM RF: 0 tamsulosin [Flomax] 0.4 mg capsule 0.4 mg PO HS RF: 0 docusate sodium [Colace] 100 mg capsule 100 mg PO BID PRN (Reason: Constipation) RF: 0 multivitamin [Daily Multi-Vitamin] tablet 1 tab PO QAM RF: 0 cholecalciferol (vitamin D3) 1,000 unit capsule 1,000 units PO QAM RF: 0 prednisone 5 mg tablet 5 mg PO QAM RF: 0 cyclosporine 100 mg capsule 150 mg PO BID RF: 0 gabapentin [Neurontin] 300 mg capsule 600 mg PO .AM & AFTERNOON RF: 0 duloxetine 60 mg capsule,delayed release(DR/EC) 60 mg PO QAM Qty: 90 RF: 3 magnesium oxide 400 mg magnesium capsule 800 mg PO BID RF: 0 albuterol sulfate 90 mcg/actuation HFA aerosol inhaler 2 inha INH Q6H PRN (Reason: shortness of breath or wheezing) Qty: 1 RF: 0 ferrous sulfate [iron] 325 mg (65 mg iron) Tablet 325 mg PO BID RF: 0 acetaminophen [Tylenol Extra Strength] 500 mg Tablet 1,000 mg PO QID PRN (Reason: Pain) RF: 0 gabapentin 300 mg Capsule 900 mg PO HS RF: 0 warfarin 5 mg Tablet 5 mg PO DAILY RF: 0 Changed furosemide [Lasix] 40 mg tablet 40 mg PO QAM PRN (Reason: leg swelling) Qty: 135 RF: 3 Discontinued losartan 100 mg tablet 100 mg PO QAM Qty: 90 RF: 3 Discharge Orders: Discharge Order (Routine); Ordered 11/18/21 Ordered By: Pa Potter Admission Data Admit Date/Time: 11/17/21 22:59 Attending Provider: Pa Potter Admit Provider: Yovani Pizarro Primary Care Provider: Vinicius Ng Other Providers: Yovani Pizarro Other Interventions: Discharge Summary Assessment (RN) Last Done: 11/18/21 16:40 Coding Diagnoses Syncopal episodes R55 End stage renal disease N18.6 Renal transplant, status post Z94.0 Dehydration E86.0 Gout M10.9 DVT (deep venous thrombosis) I82.409 DVT location: lower extremity Affected thrombotic vein of extremity: unspecified vein of extremity Chronicity: unspecified Laterality: unspecified laterality BPH (benign prostatic hyperplasia) N40.0 GERD (gastroesophageal reflux disease) K21.9 Sleep apnea G47.30 Immunocompromised D89.9
== END 2021-11-18 17:30 | disposition home or self-care (01) ==
LOC: 2W 16:18 → ED 16:18 → SUATTDRO 22:59 → 2W 11-18

== ENCOUNTER 2021-12-25 16:50 | Inpatient (IN) ==
--- NOTE | 2021-12-25 17:07 | ED Triage Note ---
Date of Service December 25, 2021 History of Present Illness This patient was briefly evaluated while in triage. An abbreviated physical exam was performed. This patient is a 61-year-old Male with past medical history of renal transplant who presents to the ED for evaluation of not feeling well for the past few days. Physical Exam VITALS: Vitals are noted on the nurse's note and reviewed by myself. GENERAL: This is a 61-year-old male, ill appearing. EYES: Pupils equal round and reactive to light and accommodation. MOUTH: Mucous membranes moist. NECK: Supple without nuchal rigidity. No lymphadenopathy. HEART: Regular rate and rhythm without murmurs gallops or rubs. LUNGS: Clear to auscultation bilaterally without wheezes, rales or rhonchi. ABDOMEN: Positive bowel sounds x 4. Soft, mild generalized tenderness. NEURO: Patient was alert and oriented to person place and time. Initial orders for labs and / or imaging were placed and patient was placed in the waiting area until a bed is available. Please see further documentation for the full ED course.
[2021-12-25] MEDS ORDERED: SODIUM CHLORIDE 0.9% 1000ML 1,000 ML IV ONE (17:24)
[2021-12-25] MEDS ORDERED: CEFEPIME 2,000 MG/20 ML VIAL IV STA (17:24)
--- NOTE | 2021-12-25 17:26 | Emergency Department Note ---
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 They believe the bleeding likely came from his original kidneys but cannot be certain. He has been off Coumadin for 3 weeks. He does have a history of previous DVTs and PEs. He notes he started feeling bad on Wednesday. He admits to belly pain and diarrhea. Fever started Wednesday. No headache or change in vision. No chest pain or shortness of breath. No dysuria urgency or frequency. No other exacerbating or remitting factors. Notes he still having dark stools and has been having them since he was admitted to [facility]. ROS: See above HPI for pertinent positives & negatives. A total of 10 systems reviewed and were otherwise negative. PAST MEDICAL HISTORY:See Below PAST SURGICAL HISTORY:See Below FAMILY HISTORY:See Below SOCIAL HISTORY:See Below HOME MEDICATIONS:See Below ALLERGIES:See Below VITALS:See Below PHYSICAL EXAMINATION: GENERAL: Sitting up in bed, alert, slightly ill-appearing, disheveled EYE EXAM: normal conjunctiva. OROPHARYNX: no exudate, no erythema, lips, buccal mucosa, and tongue normal and mucous membranes are moist NECK: supple, no nuchal rigidity, no adenopathy, non-tender LUNGS: Clear to auscultation. Normal chest wall mechanics HEART: no murmurs, S1 normal and S2 normal ABDOMEN: abdomen soft, non-tender, normo-active bowel sounds, no masses, no rebound or guarding. UPPER EXTREMITIES: upper extremities are grossly normal. LOWER EXTREMITIES: Left calf larger than right which is old per patient NEURO EXAM: Normal sensorium, cranial nerves II-XII grossly intact, normal speech, no gross weakness of arms, no gross weakness of legs. No drift. Finger to nose intact. Gross sensation intact. MEDICAL DECISION MAKING: Patient is a 61-year-old male who presents ER for above-stated complaint. IV was established blood work was obtained. He was found to be febrile, tachycardic and slightly hypoxic. Labs show no significant leukocytosis. Mild anemia at 9.2. INR was unremarkable. BMP with a creatinine of 3.1 fairly consistent with previous. Potassium of 5.3. CO2 slightly low at 20 which I favor secondary to chronic renal disease. Also consistent with diarrhea. LFTs were unremarkable. Pro-Clement was normal. UA was contaminated. Influenza COVID and RSV was negative. Venous Dopplers of the lower extremities were negative. Chest x-ray was unremarkable. CT abdomen pelvis showed no acute pathology. He was given IV fluids and IV cefepime. Updated bedside. Discussed with Brooke Nava for further evaluation admitted for further work-up. Triage Nursing notes reviewed. Limited review of prior medical records performed Vital Signs: reviewed and remarkable for HTN, febrile, tachy, hypoxia Differential diagnosis: Differential diagnosis includes etiologies such as sepsis, UTI, pneumonia, metabolic, electrolyte abnormalities, cardiac sources, intracerebral event, toxicologic, neurological, as well as others were entertained. ER treatment provided: See below Diagnostics interpreted by me: ECG: Sinus rhythm rate 83 Left axis Poor baseline QTC 303 Cardiac Monitoring: An order was placed for continuous cardiac monitoring. The monitor shows a rate of 90 with sinus rhythm. Laboratory studies: As stated above and show below. Imaging studies: CT abdomen pelvis as well as chest x-ray venous Dopplers were unremarkable Consultation(s): Discussed with Brooke Nava for further evaluation Procedures: none Critical Care: None Past Med/Surg History Medical History AV fistula DVT (deep venous thrombosis) End stage renal disease Family history of blood clots Gout History of basal cell carcinoma History of malignant melanoma of skin Hypertension Influenza A Nephrolithiasis Pneumonia due to COVID-19 virus Rectus sheath hematoma Sarcoidosis Umbilical hernia Venous insufficiency Venous stasis dermatitis Surgical History H/O colonoscopy History of cardiac cath History of melanoma excision History of tonsillectomy History of tooth extraction Kidney transplanted Family History Mother Stroke Heart disease Grandmother Cancer Lung disease Denies family history of Ovarian cancer Prostate cancer Colorectal cancer Social History Smoking Status: Never smoker Second Hand Exposure: No; Hx Alcohol Use: Yes Hx Substance Use: No Preferred Language: [place] Communication Ability: Effective Space Operations Officer Required: No Beliefs That Will Affect Care: None marital status: Current Living Situation: Spouse Current Living Situation Comment: living with . current occupational status: employed current occupation: [employer] How many Children do You have: 1 Feels Safe at Home: Yes caffeine: Yes Dental Care, Regularly: Yes Seatbelt Use: always Sunscreen Use: Yes Assistive Devices: CPAP and Walker Allergies Allergies Allergy/AdvReac Type Severity Reaction Status Date / Time allopurinol Allergy Unknown Rash Verified 12/25/21 14:10 Penicillins Allergy Unknown Unknown Verified 12/25/21 14:10 hydromorphone [From Dilaudid] AdvReac Severe confusion Verified 12/25/21 14:10 Home Meds Home Medications Medication Instructions Recorded Confirmed aspirin 81 mg tablet,delayed 81 mg PO QAM 04/24/19 12/25/21 release (Adult Low Dose Aspirin) cholecalciferol (vitamin D3) 25 1,000 units PO QAM 04/24/19 12/25/21 mcg (1,000 unit) capsule docusate sodium 100 mg capsule 100 mg PO BID PRN Constipation 04/24/19 12/25/21 (Colace) multivitamin (Daily Multi-Vitamin) 1 tab PO QAM 04/24/19 12/25/21 tamsulosin 0.4 mg capsule (Flomax) 0.4 mg PO HS 04/24/19 12/25/21 prednisone 5 mg tablet 5 mg PO QAM 05/29/19 12/25/21 mycophenolate mofetil 250 mg 1,000 mg PO BID 02/20/20 12/25/21 capsule (CellCept) febuxostat 80 mg tablet (Uloric) 80 mg PO QAM 03/06/20 12/25/21 cyclosporine 100 mg capsule 150 mg PO BID 06/16/21 12/25/21 magnesium oxide 800 mg PO BID 06/16/21 12/25/21 ferrous sulfate 325 mg (65 mg 325 mg PO BID 08/05/21 12/25/21 iron) tablet (iron) gabapentin 300 mg capsule 600 mg PO .AM & AFTERNOON 08/22/21 12/25/21 (Neurontin) acetaminophen 500 mg tablet 1,000 mg PO QID PRN Pain 08/24/21 12/25/21 (Tylenol Extra Strength) gabapentin 300 mg capsule 900 mg PO HS 11/17/21 12/25/21 furosemide 40 mg tablet (Lasix) 60 mg PO QAM PRN Edema 12/25/21 12/25/21 Previous Rx's Medication Instructions Recorded albuterol sulfate 90 mcg/actuation 2 inha inhalation Q6H PRN 04/06/21 aerosol inhaler shortness of breath or wheezing #1 inhaler omeprazole 40 mg capsule,delayed 40 mg PO QAM #90 caps 04/29/21 release duloxetine 60 mg capsule,delayed 60 mg PO QAM #90 caps 11/13/21 release losartan 50 mg tablet 50 mg PO DAILY #90 tabs 12/15/21 Results & Data (ED) Vital Signs Vital Signs - 24 hr 12/25/21 17:03 12/25/21 17:24 12/25/21 17:24 Temperature 38.3 C H Temperature Source Temporal Artery Scan Pulse Rate 108 H Pulse Rate [Apical] 88 Pulse Rate from SpO2 Sensor Pulse Rhythm [Apical] Regular Respiratory Rate 20 16 Respiratory Effort / Characteristics Non-Labored Non-Labored Respiratory Depth Normal Normal Blood Pressure 166/86 H Blood Pressure Mean 112 Pulse Oximetry 87 L 100 99 Oxygen Delivery Method Room Air Room Air Room Air Sepsis Recent Fever Within 48 Hours Yes Sepsis New/Unexplained Change in Mental Status No Sepsis Action Taken by Nursing Physician Notified 12/25/21 19:09 12/25/21 17:14 12/25/21 17:30 Temperature Temperature Source Pulse Rate 183 H 90 Pulse Rate [Apical] Pulse Rate from SpO2 Sensor 93 H 90 Pulse Rhythm [Apical] Respiratory Rate 21 27 H 23 Respiratory Effort / Characteristics Respiratory Depth Blood Pressure Blood Pressure Mean Pulse Oximetry 100 100 Oxygen Delivery Method Sepsis Recent Fever Within 48 Hours Sepsis New/Unexplained Change in Mental Status Sepsis Action Taken by Nursing 12/25/21 17:37 12/25/21 17:37 12/25/21 18:00 Temperature Temperature Source Pulse Rate 88 Pulse Rate [Apical] Pulse Rate from SpO2 Sensor 88 Pulse Rhythm [Apical] Respiratory Rate 21 Respiratory Effort / Characteristics Respiratory Depth Blood Pressure 172/88 H 161/86 H Blood Pressure Mean 116 111 Pulse Oximetry 100 Oxygen Delivery Method Sepsis Recent Fever Within 48 Hours Sepsis New/Unexplained Change in Mental Status Sepsis Action Taken by Nursing 12/25/21 18:00 12/25/21 18:39 12/25/21 19:00 Temperature Temperature Source Pulse Rate 82 84 Pulse Rate [Apical] Pulse Rate from SpO2 Sensor 82 Pulse Rhythm [Apical] Respiratory Rate 21 13 Respiratory Effort / Characteristics Respiratory Depth Blood Pressure 158/86 H Blood Pressure Mean 110 Pulse Oximetry 99 Oxygen Delivery Method Sepsis Recent Fever Within 48 Hours Sepsis New/Unexplained Change in Mental Status Sepsis Action Taken by Nursing 12/25/21 19:00 12/25/21 19:15 Temperature 37.0 C Temperature Source Oral Pulse Rate 86 Pulse Rate [Apical] Pulse Rate from SpO2 Sensor 86 Pulse Rhythm [Apical] Respiratory Rate Respiratory Effort / Characteristics Respiratory Depth Blood Pressure Blood Pressure Mean Pulse Oximetry 98 Oxygen Delivery Method Sepsis Recent Fever Within 48 Hours Sepsis New/Unexplained Change in Mental Status Sepsis Action Taken by Nursing Laboratory Data Result diagrams: 12/25/21 17:20 12/25/21 17:20 Lab Results 12/25/21 12/25/21 12/25/21 Range/Units 17:20 17:20 17:20 WBC 7.60 (4.8-10.8) K/ul RBC 3.13 L (4.63-6.08) M/uL Hgb 9.2 L (14.0-18.0) g/dl POC Hgb (14.0-18.0) g/dl Hct 28.7 L (40.1-51.0) % POC Hct (42-52) % MCV 91.7 (80.0-100.0) fL MCH 29.4 (25.0-34.0) pg MCHC 32.1 (32.0-36.0) g/dL RDW Std Deviation 49.1 H (36.4-46.3) fL RDW Coeff of Theresa 14.7 H (11.5-14.5) % Plt Count 384 (130-400) K/uL MPV 9.9 (9.4-12.4) fL Immature Gran % (Auto) 0.8 % Neut % (Auto) 82.7 % Lymph % (Auto) 1.3 % Bowman % (Auto) 12.9 % Eos % (Auto) 1.4 % Baso % (Auto) 0.9 % Neut # (Auto) 6.28 (1.4-6.5) K/uL Lymph # (Auto) 0.10 L (1.2-3.4) K/uL Bowman # (Auto) 0.98 H (0.24-0.82) K/uL Eos # (Auto) 0.11 (0-0.50) K/uL Baso # (Auto) 0.07 (0-0.2) K/uL Immature Gran # (Auto) 0.06 H (0.00-0.02) K/uL PT 11.4 (9.0-12.0) Seconds INR 1.1 (0.9-1.1) APTT 28.8 (21.0-31.0) Seconds PTT Ratio 1.0 POC Sodium (135-144) mmol/L Sodium 133 L (136-145) mmol/L POC Potassium (3.3-5.0) mmol/L Potassium 5.3 H (3.5-5.1) mmol/L POC Chloride (101-112) mmol/L Chloride 103 (98-107) mmol/L Carbon Dioxide 20 L (21-32) mmol/L POC Total CO2 (24-31) mmol/L Anion Gap 10 (3-11) POC Anion Gap (16-25) mmol/L POC BUN (7-18) mg/dl BUN 49 H (6-23) mg/dl Creatinine 3.11 H D (0.6-1.4) mg/dl POC Creatinine (0.6-1.3) mg/dl Est Cr Clr Drug Dosing 34.0 ml/min Est GFR ( Amer) 23.9 ml/min Est GFR (Non-Af Amer) 20.7 ml/min BUN/Creatinine Ratio 15.8 (10-20) Glucose 96 (70-99(Fasting)) mg/dl POC Glucose (other) (70-99) mg/dl Lactate (0.4-2.0) mmol/L Calcium 9.3 (8.5-10.1) mg/dl POC Ioniz Calcium Chioma (1.12-1.32) mmol/l Total Bilirubin 1.4 H (0.2-1.0) mg/dl AST 19 (13-39) U/L ALT 17 (7-52) U/L Alkaline Phosphatase 91 (34-104) U/L Total Protein 6.5 (6.0-8.3) gm/dl Albumin 3.8 (3.4-5.0) gm/dl Globulin 2.7 (2.5-4.0) gm/dl Albumin/Globulin Ratio 1.4 (0.9-2) Procalcitonin (0-0.5) ng/ml Urine Color Urine Appearance (Clear) Urine pH (4.5-7.5) Ur Specific Trumann (1.000-1.030) Urine Protein (Negative) Urine Glucose (UA) (Negative) Urine Ketones (Negative) Urine Blood (Negative) Urine Nitrite (Negative) Urine Bilirubin (Negative) Urine Urobilinogen (Negative) Ur Leukocyte Esterase (Negative) Urine WBC (Auto) (0-5) /hpf Urine RBC (Auto) (0-4) /hpf U Hyaline Cast (Auto) (0-5) /lpf U Epithel Cells (Auto) (0-5) /lpf Urine Bacteria (Auto) (Negative) SARS-CoV-2 (PCR) (Negative) Influenza Type A (PCR) (Neg) Influenza Type B (PCR) (Neg) RSV (RT-PCR) (Neg) 12/25/21 12/25/21 12/25/21 Range/Units 17:20 17:20 17:30 WBC (4.8-10.8) K/ul RBC (4.63-6.08) M/uL Hgb (14.0-18.0) g/dl POC Hgb (14.0-18.0) g/dl Hct (40.1-51.0) % POC Hct (42-52) % MCV (80.0-100.0) fL MCH (25.0-34.0) pg MCHC (32.0-36.0) g/dL RDW Std Deviation (36.4-46.3) fL RDW Coeff of Theresa (11.5-14.5) % Plt Count (130-400) K/uL MPV (9.4-12.4) fL Immature Gran % (Auto) % Neut % (Auto) % Lymph % (Auto) % Bowman % (Auto) % Eos % (Auto) % Baso % (Auto) % Neut # (Auto) (1.4-6.5) K/uL Lymph # (Auto) (1.2-3.4) K/uL Bowman # (Auto) (0.24-0.82) K/uL Eos # (Auto) (0-0.50) K/uL Baso # (Auto) (0-0.2) K/uL Immature Gran # (Auto) (0.00-0.02) K/uL PT (9.0-12.0) Seconds INR (0.9-1.1) APTT (21.0-31.0) Seconds PTT Ratio POC Sodium (135-144) mmol/L Sodium (136-145) mmol/L POC Potassium (3.3-5.0) mmol/L Potassium (3.5-5.1) mmol/L POC Chloride (101-112) mmol/L Chloride (98-107) mmol/L Carbon Dioxide (21-32) mmol/L POC Total CO2 (24-31) mmol/L Anion Gap (3-11) POC Anion Gap (16-25) mmol/L POC BUN (7-18) mg/dl BUN (6-23) mg/dl Creatinine (0.6-1.4) mg/dl POC Creatinine (0.6-1.3) mg/dl Est Cr Clr Drug Dosing ml/min Est GFR ( Amer) ml/min Est GFR (Non-Af Amer) ml/min BUN/Creatinine Ratio (10-20) Glucose (70-99(Fasting)) mg/dl POC Glucose (other) (70-99) mg/dl Lactate 0.9 (0.4-2.0) mmol/L Calcium (8.5-10.1) mg/dl POC Ioniz Calcium Chioma (1.12-1.32) mmol/l Total Bilirubin (0.2-1.0) mg/dl AST (13-39) U/L ALT (7-52) U/L Alkaline Phosphatase (34-104) U/L Total Protein (6.0-8.3) gm/dl Albumin (3.4-5.0) gm/dl Globulin (2.5-4.0) gm/dl Albumin/Globulin Ratio (0.9-2) Procalcitonin 0.36 (0-0.5) ng/ml Urine Color Urine Appearance (Clear) Urine pH (4.5-7.5) Ur Specific Trumann (1.000-1.030) Urine Protein (Negative) Urine Glucose (UA) (Negative) Urine Ketones (Negative) Urine Blood (Negative) Urine Nitrite (Negative) Urine Bilirubin (Negative) Urine Urobilinogen (Negative) Ur Leukocyte Esterase (Negative) Urine WBC (Auto) (0-5) /hpf Urine RBC (Auto) (0-4) /hpf U Hyaline Cast (Auto) (0-5) /lpf U Epithel Cells (Auto) (0-5) /lpf Urine Bacteria (Auto) (Negative) SARS-CoV-2 (PCR) NEGATIVE (Negative) Influenza Type A (PCR) Negative (Neg) Influenza Type B (PCR) Negative (Neg) RSV (RT-PCR) Negative (Neg) 12/25/21 12/25/21 Range/Units 17:38 18:45 WBC (4.8-10.8) K/ul RBC (4.63-6.08) M/uL Hgb (14.0-18.0) g/dl POC Hgb 9.2 L (14.0-18.0) g/dl Hct (40.1-51.0) % POC Hct 27 L (42-52) % MCV (80.0-100.0) fL MCH (25.0-34.0) pg MCHC (32.0-36.0) g/dL RDW Std Deviation (36.4-46.3) fL RDW Coeff of Theresa (11.5-14.5) % Plt Count (130-400) K/uL MPV (9.4-12.4) fL Immature Gran % (Auto) % Neut % (Auto) % Lymph % (Auto) % Bowman % (Auto) % Eos % (Auto) % Baso % (Auto) % Neut # (Auto) (1.4-6.5) K/uL Lymph # (Auto) (1.2-3.4) K/uL Bowman # (Auto) (0.24-0.82) K/uL Eos # (Auto) (0-0.50) K/uL Baso # (Auto) (0-0.2) K/uL Immature Gran # (Auto) (0.00-0.02) K/uL PT (9.0-12.0) Seconds INR (0.9-1.1) APTT (21.0-31.0) Seconds PTT Ratio POC Sodium 135 (135-144) mmol/L Sodium (136-145) mmol/L POC Potassium 5.4 H (3.3-5.0) mmol/L Potassium (3.5-5.1) mmol/L POC Chloride 106 (101-112) mmol/L Chloride (98-107) mmol/L Carbon Dioxide (21-32) mmol/L POC Total CO2 20 L (24-31) mmol/L Anion Gap (3-11) POC Anion Gap 16.0 (16-25) mmol/L POC BUN 46 H (7-18) mg/dl BUN (6-23) mg/dl Creatinine (0.6-1.4) mg/dl POC Creatinine 3.5 H (0.6-1.3) mg/dl Est Cr Clr Drug Dosing ml/min Est GFR ( Amer) ml/min Est GFR (Non-Af Amer) ml/min BUN/Creatinine Ratio (10-20) Glucose (70-99(Fasting)) mg/dl POC Glucose (other) 98 (70-99) mg/dl Lactate (0.4-2.0) mmol/L Calcium (8.5-10.1) mg/dl POC Ioniz Calcium Chioma 1.22 (1.12-1.32) mmol/l Total Bilirubin (0.2-1.0) mg/dl AST (13-39) U/L ALT (7-52) U/L Alkaline Phosphatase (34-104) U/L Total Protein (6.0-8.3) gm/dl Albumin (3.4-5.0) gm/dl Globulin (2.5-4.0) gm/dl Albumin/Globulin Ratio (0.9-2) Procalcitonin (0-0.5) ng/ml Urine Color Dark Yellow Urine Appearance Clear (Clear) Urine pH 5.5 (4.5-7.5) Ur Specific Trumann 1.016 (1.000-1.030) Urine Protein 2+ H (Negative) Urine Glucose (UA) Negative (Negative) Urine Ketones 1+ H (Negative) Urine Blood Trace H (Negative) Urine Nitrite Negative (Negative) Urine Bilirubin Negative (Negative) Urine Urobilinogen Negative (Negative) Ur Leukocyte Esterase Trace H (Negative) Urine WBC (Auto) 10-30 H (0-5) /hpf Urine RBC (Auto) 0-4 (0-4) /hpf U Hyaline Cast (Auto) 1-5 (0-5) /lpf U Epithel Cells (Auto) 20-30 H (0-5) /lpf Urine Bacteria (Auto) Negative (Negative) SARS-CoV-2 (PCR) (Negative) Influenza Type A (PCR) (Neg) Influenza Type B (PCR) (Neg) RSV (RT-PCR) (Neg) Administered Medications Cyclosporine (Cyclosporine 100 Mg Cap) 100 mg PO BID RANDELL Stop: 01/24/22 22:59 Last Admin: 12/26/21 00:10 Dose: 100 mg Documented By: LISA Cyclosporine (Cyclosporine (Sandimmune) 25 Mg Cap) 50 mg PO BID RANDELL Stop: 01/24/22 22:59 Last Admin: 12/26/21 00:09 Dose: 50 mg Documented By: LISA Gabapentin (Gabapentin 300 Mg Cap) 900 mg PO HS RANDELL Stop: 01/25/22 20:59 Last Admin: 12/26/21 00:08 Dose: 900 mg Documented By: LISA Sodium Chloride (Nss 1000ml) 1,000 mls @ 125 mls/hr IV .Q8H RANDELL Stop: 12/26/21 14:08 Last Admin: 12/25/21 23:38 Dose: 125 mls/hr Documented By: LISA Piperacillin Sod/Tazobactam (Sod 4.5 gm/ Dextrose) 120 mls @ 240 mls/hr IV ONE ONE; Protocol Stop: 12/26/21 00:14 Last Admin: 12/26/21 00:06 Dose: 240 mls/hr Documented By: LISA Magnesium Oxide (Magnesium Oxide 400 Mg Tab) 800 mg PO BID RANDELL Stop: 01/24/22 22:59 Last Admin: 12/26/21 00:09 Dose: 800 mg Documented By: LISA Mycophenolate Mofetil (Mycophenolate Mofetil 250 Mg Cap) 1,000 mg PO BID RANDELL Stop: 01/24/22 22:08 Last Admin: 12/26/21 00:09 Dose: 1,000 mg Documented By: LISA Discontinued Medications Acetaminophen (Acetaminophen 325 Mg Tab) 650 mg PO NOW STA Stop: 12/25/21 19:29 Last Admin: 12/25/21 20:01 Dose: 650 mg Documented By: MORRIS Sodium Chloride (Nss 1000ml) 1,000 mls @ 999 mls/hr IV .Q1H1M ONE Stop: 12/25/21 18:24 Last Infusion: 12/25/21 19:00 Dose: 0 mls/hr Documented By: Admin: 12/25/21 17:40 Dose: 999 mls/hr Documented By: HILLARY Cefepime HCl (Maxipime) 2,000 mg in 20 mls @ 5 mls/min IV NOW STA; Protocol Stop: 12/25/21 17:27 Last Admin: 12/25/21 19:19 Dose: 5 mls/min Documented By: MORRIS Imaging Data Radiologist's Impression: Abdomen/Pelvis CT 12/25/21 17:03 CT abd pelvis wo con CLINICAL HISTORY: Recent retroperitoneal bleed, fever . Transplant right kidney COMPARISON STUDY: 12/07/2021 CT DOSE: 1497.51 mGy.cm TECHNIQUE: Standard CT of the Abdomen and Pelvis was performed without IV contrast. The patient did not receive oral contrast. A dose lowering technique was utilized adhering to the principles of ALARA. FINDINGS: Lung base: The lung bases are clear. Calcified granuloma present bilaterally. Abdominal cavity: Compared to the previous examination, there is an essentially stable, large retroperitoneal hematoma on the left. Its margins appear sharply defined and unchanged. No increased hemorrhagic fluid is seen. Liver: The liver is homogeneous in attenuation on these limited noncontrast images.. Spleen: The spleen is homogeneous in attenuation on these limited noncontrast images. Pancreas: The pancreas is homogeneous in attenuation on these limited noncont rast images. Gall Bladder: The gallbladder is well distended with no evidence for cholelithiasis, wall thickening or pericholecystic edema.. Adrenal glands: The adrenal glands are normal in size and attenuation on these limited noncontrast images. Kidneys: There is again atrophy of the right kidney. The left kidney is mildly swollen when compared to the right. However, this also unchanged from the previous CT. A stable transplanted right pelvic kidney is present. There is no evidence for gross renal mass, calculus or hydronephrosis. Bowel: The bowel loops are normally placed within the abdomen and pelvis without evidence for dilatation or obstruction. There is no evidence for mass lesion. There are no inflammatory changes present. There is no evidence for free air. Bladder: There is no evidence for focal bladder wall thickening, calculus or diverticulum. There is mild diffuse thickening of bladder wall characteristic of chronic bladder outlet obstruction. : There is no evidence for pelvic mass or adenopathy. The prostate is m oderately enlarged. Vasculature: There is no evidence for focal aneurysmal dilatation of the abdominal aorta. Atherosclerotic calcification is present. Osseous structures: There is no acute osseous pathology. Degenerative changes are seen within the spine. IMPRESSION: 1. Compared to the previous examination, there is no significant interval change in the previously identified large left retroperitoneal hematoma. No increased fluid or blood are identified. 2. No other evidence for acute intra-abdominal or pelvic abnormality on these limited noncontrast images. 3. Additional nonacute findings are delineated above. ACT 112: Negative or not required by law. Electronically signed by: Betito Patel M.D. 12/25/2021 7:18 PM Chest X-Ray 12/25/21 17:04 XR chest 1V portable HISTORY: 61 years-old Male Fever acute fever COMPARISON: Chest radiograph 12/02/2021, chest CT 11/25/2017 TECHNIQUE: Portable AP view of the chest FINDINGS: Cardiac silhouette is enlarged. Bilateral hilar prominence redemonstrated. Numer ous pulmonary nodules are better seen on comparison chest CT. Vascular congestion. No pneumothorax or large pleural effusion. Degenerative changes of the shoulders and spine. IMPRESSION: 1. Cardiomegaly with pulmonary vascular congestion. 2. Pulmonary nodules with hilar adenopathy redemonstrated suggestive of chronic granulomatous disease. ACT 112: Negative or not required by law. The above report was generated using voice recognition software. It may contain grammatical, syntax or spelling errors. Electronically signed by: Facundo Miller M.D. 12/25/2021 6:14 PM Venous Doppler Study 12/25/21 17:45 BILATERAL LOWER EXTREMITY VENOUS DOPPLER HISTORY: Acute pain and swelling of the lower legs b/l COMPARISON STUDY: Doppler study 08/24/2021 FINDINGS: There is normal compressibility, flow, and augmentation within the bilateral lower extremity deep venous systems. IMPRESSION: No DVT within the right or left lower extremity. ACT 112: Negative or not required by law. Electronically signed by: Facundo Miller M.D. 12/25/2021 6:43 PM Discharge Plan Visit Data Chief Complaint: Diarrhea Stated Complaint: ABDOMINAL PAIN, DIARRHEA ED Provider: Anibal Cason Discharge Problem: SIRS (systemic inflammatory response syndrome), Chronic renal insufficiency, History of renal transplant, Diarrhea, Abdominal pain Patient Disposition: Admitted As Inpatient Discharge Instructions Interventions: ED Discharge Assessment Last Done: 12/25/21 22:38
[2021-12-25 17:39] LABS: Basophils # (auto) 0.07 K/uL (0-0.2); Basophils % (auto) 0.9 %; Eosinophils # (auto) 0.11 K/uL (0-0.50); Eosinophils % (auto) 1.4 %; Hematocrit (blood only) 28.7 % (40.1-51.0); Hemoglobin 9.2 g/dl (14.0-18.0); Immature Granulocytes # (auto) 0.06 K/uL (0.00-0.02); Immature Granulocytes % (auto) 0.8 %; Lymphocytes % (auto) 1.3 %; Mean Corpuscular Hemoglobin 29.4 pg (25.0-34.0); Mean Corpuscular Hgb Conc 32.1 g/dL (32.0-36.0); Mean Corpuscular Volume 91.7 fL (80.0-100.0); Mean Platelet Volume 9.9 fL (9.4-12.4); Monocytes # (auto) 0.98 K/uL (0.24-0.82); Monocytes % (auto) 12.9 %; Neutrophils # (auto) 6.28 K/uL (1.4-6.5); Neutrophils % (auto) 82.7 %; Platelet Count 384 K/uL (130-400); RDW Coefficient of Variation 14.7 % (11.5-14.5); RDW Standard Deviation 49.1 fL (36.4-46.3); Red Blood Count 3.13 M/uL (4.63-6.08)
[2021-12-25 17:50] LABS: iSTAT Creatinine 3.5 mg/dl (0.6-1.3); iSTAT Hemoglobin 9.2 g/dl (14.0-18.0); iSTAT Ionized Calcium 1.22 mmol/l (1.12-1.32); iSTAT Potassium 5.4 mmol/L (3.3-5.0)
[2021-12-25 17:55] LABS: INR 1.1 (0.9-1.1); Partial Thromboplastin Time 28.8 Seconds (21.0-31.0); Prothrombin Time 11.4 Seconds (9.0-12.0)
[2021-12-25 17:56] LABS: Albumin Globulin Ratio 1.4 (0.9-2); Albumin Level 3.8 gm/dl (3.4-5.0); BUN Creatinine Ratio 15.8 (10-20); Bilirubin,Total 1.4 mg/dl (0.2-1.0); Calcium 9.3 mg/dl (8.5-10.1); Est GFR (African American) 23.9 ml/min; Est GFR (Non-African American) 20.7 ml/min; Globulin 2.7 gm/dl (2.5-4.0); Potassium 5.3 mmol/L (3.5-5.1); Total Protein 6.5 gm/dl (6.0-8.3)
--- NOTE | 2021-12-25 18:15 | XRay Report ---
XR chest 1V portable HISTORY: 61 years-old Male Fever acute fever COMPARISON: Chest radiograph 12/02/2021, chest CT 11/25/2017 TECHNIQUE: Portable AP view of the chest FINDINGS: Cardiac silhouette is enlarged. Bilateral hilar prominence redemonstrated. Numerous pulmonary nodules are better seen on comparison chest CT. Vascular congestion. No pneumothorax or large pleural effusi on. Degenerative changes of the shoulders and spine. IMPRESSION: 1. Cardiomegaly with pulmonary vascular congestion. 2. Pulmonary nodules with hilar adenopathy redemonstrated suggestive of chronic granulomatous disease . ACT 112: Negative or not required by law. The above report was generated using voice recognition software. It may contain grammatical, syntax o r spelling errors. Electronically signed by: Facundo Miller M.D. 12/25/2021 6:14 PM
[2021-12-25 18:19] LABS: Influenza A virus by PCR Negative (Neg); Influenza B virus by PCR Negative (Neg); RSV by PCR Negative (Neg); SARS CoV2 RNA(COVID-19) InHosp NEGATIVE (Negative)
--- NOTE | 2021-12-25 18:44 | Ultrasound Report ---
BILATERAL LOWER EXTREMITY VENOUS DOPPLER HISTORY: Acute pain and swelling of the lower legs b/l COMPARISON STUDY: Doppler study 08/24/2021 FINDINGS: There is normal compressibility, flow, and augmentation within the bilateral lower extremit y deep venous systems. IMPRESSION: No DVT within the right or left lower extremity. ACT 112: Negative or not required by law. Electronically signed by: Facundo Miller M.D. 12/25/2021 6:43 PM
[2021-12-25 19:11] LABS: Appearance Urine Clear (Clear); Bacteria Urine Automated Negative (Negative); Bilirubin Urine Negative (Negative); Blood Urine Trace (Negative); Color Urine Dark Yellow; Epithelial Cell Urine Auto 20-30 /lpf (0-5); Glucose Urine UA Negative (Negative); Ketones Urine 1+ (Negative); Leukocyte Esterase Urine Trace (Negative); Nitrite Urine Negative (Negative); Protein Urine 2+ (Negative); RBC Urine Automated 0-4 /hpf (0-4); Specific Gravity Urine 1.016 (1.000-1.030); Urobilinogen Urine Negative (Negative); pH Urine 5.5 (4.5-7.5)
--- NOTE | 2021-12-25 19:20 | CT Scan Report ---
CT abd pelvis wo con CLINICAL HISTORY: Recent retroperitoneal bleed, fever . Transplant right kidney COMPARISON STUDY: 12/07/2021 CT DOSE: 1497.51 mGy.cm TECHNIQUE: Standard CT of the Abdomen and Pelvis was performed without IV contrast. The patient did not receive oral contrast. A dose lowering technique was utilized adhering to the principles of LEILANI Guan FINDINGS: Lung base: The lung bases are clear. Calcified granuloma present bilaterally. Abdominal cavity: Compared to the previous examination, there is an essentially stable, large retrope ritoneal hematoma on the left. Its margins appear sharply defined and unchanged. No increased hemorrh agic fluid is seen. Liver: The liver is homogeneous in attenuation on these limited noncontrast images.. Spleen: The spleen is homogeneous in attenuation on these limited noncontrast images. Pancreas: The pancreas is homogeneous in attenuation on these limited noncontrast images. Gall Bladder: The gallbladder is well distended with no evidence for cholelithiasis, wall thickening or pericholecystic edema.. Adrenal glands: The adrenal glands are normal in size and attenuation on these limited noncontrast im ages. Kidneys: There is again atrophy of the right kidney. The left kidney is mildly swollen when compared to the right. However, this also unchanged from the previous CT. A stable transplanted right pelvic k idney is present. There is no evidence for gross renal mass, calculus or hydronephrosis. Bowel: The bowel loops are normally placed within the abdomen and pelvis without evidence for dilatat ion or obstruction. There is no evidence for mass lesion. There are no inflammatory changes present. There is no evidence for free air. Bladder: There is no evidence for focal bladder wall thickening, calculus or diverticulum. There is m ild diffuse thickening of bladder wall characteristic of chronic bladder outlet obstruction. : There is no evidence for pelvic mass or adenopathy. The prostate is moderately enlarged. Vasculature: There is no evidence for focal aneurysmal dilatation of the abdominal aorta. Atheroscler otic calcification is present. Osseous structures: There is no acute osseous pathology. Degenerative changes are seen within the spi ne. IMPRESSION: 1. Compared to the previous examination, there is no significant interval change in the previously id entified large left retroperitoneal hematoma. No increased fluid or blood are identified. 2. No other evidence for acute intra-abdominal or pelvic abnormality on these limited noncontrast chandrika ges. 3. Additional nonacute findings are delineated above. ACT 112: Negative or not required by law. Electronically signed by: Betito Patel M.D. 12/25/2021 7:18 PM
[2021-12-25] MEDS ORDERED: ACETAMINOPHEN 325 MG TAB PO STA (19:28)
--- NOTE | 2021-12-25 20:26 | History & Physical Report ---
Date of Service December 25, 2021 Assessment & Plan (1) Diarrhea: Plan: 61yo male with a history of ESRD secondary to FSGS (s/p right living donor kidney, 03/2019), history of DVT/PE (not currently on anticoagulation), HTN, and HLD presents to [facility] with a four-day history of fever, diarrhea, abdominal pain, and poor appetite. Fever, diarrhea, abdominal pain, poor appetite VSS; labs notable for anemia to 9.2 (improved from 7.5 upon [facility] discharge), mild hyponatremia, mild hyperkalemia, elevated creatinine (but at baseline), hyperbilirubinemia to 1.4 Differential broad especially considering immunosuppression from cyclosporine therapy / transplant history Stool biofire, blood cultures pending Cefepime given in ED, will DC due to poor GI penetration Zosyn ordered Tarry stools possibly due to bid iron supplementation, FOBT ordered NSS @ 125mL/hr Trend CBC, CMP Hyperbilirubinemia Bili 1.4 on admission, slightly up from 1.2 on 12/24, however, this is an improvement from 1.5 on 12/07 RUQ tenderness minimal, abdominal tenderness more pronounced on left side CT abdomen/pelvis negative for new acute findings Repeat CMP in AM History of acute blood loss anemia secondary to retroperitoneal hematoma, requiring multiple blood transfusions Hematoma size unchanged per CT abdomen/pelvis read Type/screen ordered given very fast deterioration during previous hosp italization Continue to hold warfarin Continue home ferrous sulfate Trend daily CBC Asymptomatic bacteriuria No treatment indicated BPH: continue home tamsulosin GERD: continue home omeprazole History of DVT/PE: no LE symptoms on admission, holding warfarin as above, SCDs History of kidney transplant: continue cyclosporine HTN: continue home losartan Neuropathy: continue home gabapentin, duloxetine FEN: heart-healthy low potassium diet, NSS@125mL/hr Code status: full code DVT ppx: SCDs PT/OT: ordered Dispo: PCU given history of sudden deterioration during most recent admission (2) End stage renal disease: (3) GERD (gastroesophageal reflux disease): (4) History of renal transplant: (5) Hypertension: (6) Obstructive sleep apnea: (7) Peripheral neuropathy: (8) Renal transplant, status post: (9) Sleep apnea: (10) Anemia: (11) BPH (benign prostatic hyperplasia): History of Present Illness Primary Care Provider: Vinicius Ng MD 61yo male with a history of ESRD secondary to FSGS (s/p right living donor kidney, 03/2019), history of DVT/PE (not currently on anticoagulation), HTN, and HLD presents to [facility] with a four-day history of fever, diarrhea, abdominal pain, and poor appetite. Patient was recently hospitalized in the ICU at [facility] (12/02 - 12/06/21) for a left retroperitoneal hematoma. Patient received 3u pRBC, 2u platelets, and vitamin K 10mg while at [facility], in addition to multiple transfusions he had at [facility] prior to his transfer. At [facility], his Hgb was trended, and patient was discharged once labs and symptoms stabilized. Of note, patient was on warfarin prior to his [facility] admission for his history of DVT/PE (last dose 12/01/21); however, this was discontinued while hospitalized for retroperitoneal bleed. Warfarin was intentionally not restarted upon discharge, with further decisions about restarting it deferred to patient's PCP. As noted above, patient presents to [facility] today with a four-day history of fever, diarrhea, abdominal pain, and poor appetite. Patient also notes dark tarry stools which have continued since discharge from [facility]. Patient has had a mild intermittent fever with a Tmax of 100.7. Patient's diarrhea has been relatively mild (1-4 episodes per day) and seem to be triggered by eating; patient has not eaten in the past 24 hours and has only had one loose BM in that time period. Abdominal pain is mild (~3/10), bilateral but worse L>R, and sometimes radiates to the back. Denies nausea, vomiting, changes in vision, CP, SOB, dysuria, hematuria, lightheadedness, dizziness, or weakness. Denies lower extremity pain or swelling. Allergies Allergy/AdvReac Type Severity Reaction Status Date / Time allopurinol Allergy Unknown Rash Verified 12/25/21 14:10 Penicillins Allergy Unknown Unknown Verified 12/25/21 14:10 hydromorphone [From Dilaudid] AdvReac Severe confusion Verified 12/25/21 14:10 Home Medications Medication Instructions Recorded Confirmed Type aspirin 81 mg tablet,delayed 81 mg PO QAM 04/24/19 12/25/21 History release (Adult Low Dose Aspirin) cholecalciferol (vitamin D3) 25 1,000 units PO QAM 04/24/19 12/25/21 History mcg (1,000 unit) capsule docusate sodium 100 mg capsule 100 mg PO BID PRN Constipation 04/24/19 12/25/21 History (Colace) multivitamin (Daily Multi-Vitamin) 1 tab PO QAM 04/24/19 12/25/21 History tamsulosin 0.4 mg capsule (Flomax) 0.4 mg PO HS 04/24/19 12/25/21 History prednisone 5 mg tablet 5 mg PO QAM 05/29/19 12/25/21 History mycophenolate mofetil 250 mg 1,000 mg PO BID 02/20/20 12/25/21 History capsule (CellCept) febuxostat 80 mg tablet (Uloric) 80 mg PO QAM 03/06/20 12/25/21 History albuterol sulfate 90 mcg/actuation 2 inha inhalation Q6H PRN 04/06/21 12/25/21 Rx aerosol inhaler shortness of breath or wheezing #1 inhaler omeprazole 40 mg capsule,delayed 40 mg PO QAM #90 caps 04/29/21 12/25/21 Rx release cyclosporine 100 mg capsule 150 mg PO BID 06/16/21 12/25/21 History magnesium oxide 800 mg PO BID 06/16/21 12/25/21 History ferrous sulfate 325 mg (65 mg 325 mg PO BID 08/05/21 12/25/21 History iron) tablet (iron) gabapentin 300 mg capsule 600 mg PO .AM & AFTERNOON 08/22/21 12/25/21 History (Neurontin) acetaminophen 500 mg tablet 1,000 mg PO QID PRN Pain 08/24/21 12/25/21 History (Tylenol Extra Strength) duloxetine 60 mg capsule,delayed 60 mg PO QAM #90 caps 11/13/21 12/25/21 Rx release gabapentin 300 mg capsule 900 mg PO HS 11/17/21 12/25/21 History losartan 50 mg tablet 50 mg PO DAILY #90 tabs 12/15/21 12/25/21 Rx furosemide 40 mg tablet (Lasix) 60 mg PO QAM PRN Edema 12/25/21 12/25/21 History Past Med/Surg History Medical History AV fistula DVT (deep venous thrombosis) End stage renal disease Family history of blood clots Gout History of basal cell carcinoma History of malignant melanoma of skin Hypertension Influenza A Nephrolithiasis Pneumonia due to COVID-19 virus Rectus sheath hematoma Sarcoidosis Umbilical hernia Venous insufficiency Venous stasis dermatitis Surgical History H/O colonoscopy History of cardiac cath History of melanoma excision History of tonsillectomy History of tooth extraction Kidney transplanted Family History Mother Stroke Heart disease Grandmother Cancer Lung disease Denies family history of Ovarian cancer Prostate cancer Colorectal cancer Social History Smoking Status: Never smoker Second Hand Exposure: No; Hx Alcohol Use: Yes Hx Substance Use: No Preferred Language: Yi Communication Ability: Effective 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 current occupational status: employed current occupation: [employer] How many Children do You have: 1 Feels Safe at Home: Yes caffeine: Yes Dental Care, Regularly: Yes Seatbelt Use: always Sunscreen Use: Yes Assistive Devices: None Physical Exam Physical Exam: Constitutional: well-appearing, no acute distress HEENT: NCAT, no conjunctival injection CV: regular rhythm, no murmur appreciated, extremities well-perfused, no LE edema Resp: CTABL, no wheezes/rales/rhonchi appreciated, no increased work of breathing GI: soft, nondistended, mild LUQ and LLQ tenderness, minimal RUQ tenderness, no RLQ tenderness, BS normoactive MSK: no gross deformities appreciated Skin: warm, dry, no rash appreciated Neuro: alert, oriented, no focal neurologic deficit appreciated Results & Data Results & Data ([facility]) Vital Signs (Past 12 Hours) Vital Signs Temp Pulse Pulse Resp BP Pulse Ox O2 Del Method 12/25/21 19:15 37.0 C 12/25/21 19:00 86 98 12/25/21 19:00 158/86 H 12/25/21 18:39 84 13 12/25/21 18:00 82 21 99 07/28/22 18:00 161/86 H 12/25/21 17:37 88 21 100 12/25/21 17:37 172/88 H 12/25/21 17:30 90 23 100 12/25/21 17:14 183 H 27 H 100 12/25/21 19:09 21 12/25/21 17:24 99 Room Air 12/25/21 17:24 88 16 100 Room Air 12/25/21 17:03 38.3 C H 108 H 20 166/86 H 87 L Room Air Supervising Physician Co-Signing Physician Notes Patient seen and examined, chart reviewed, case discussed with Dr. Chacon and Reema tamayo the assessment and plan as above. Resident Activity Tracking Resident Involvement: Resident Care Provided and Order Processor Coverage Note Care Provided: Adult Hospital Medicine (1) BPH (benign prostatic hyperplasia) Lower urinary tract symptom detail: urinary hesitancy Lower urinary tract symptom presence: symptoms present Qualified Code(s): N40.1 - Benign prostatic hyperplasia with lower urinary tract symptoms; R39.11 - Hesitancy of micturition (2) Hypertension Hypertension type: essential hypertension Qualified Code(s): I10 - Essential (primary) hypertension
[2021-12-25] MEDS ORDERED: cycloSPORINE (SANDIMMUNE) 25 MG CAP PO SCH (22:09)
[2021-12-25] MEDS ORDERED: MELATONIN 3 MG TAB PO PRN (22:09)
[2021-12-25] MEDS ORDERED: ALBUTEROL HFA 8 GM INHALER INH PRN (22:09)
[2021-12-25] MEDS ORDERED: FUROSEMIDE 20 MG TAB PO PRN (22:09)
[2021-12-25] MEDS ORDERED: PIPERACILLIN/TAZOBACTAM 4.5 GM/120 ML BAG IV STA (23:19)
[2021-12-25] MEDS: SODIUM CHLORIDE 0.9% 1000ML 1,000 ML IV SCH (23:38)
[2021-12-25] MEDS ORDERED: PIPERACILLIN/TAZOBACTAM 4.5 GM in DEXTROSE 5% 100 ML IV ONE (23:45)
[2021-12-26] MEDS: MAGNESIUM OXIDE 400 MG TAB PO SCH ×3 (00:09→20:57)
[2021-12-26] MEDS: cycloSPORINE (SANDIMMUNE) 25 MG CAP PO SCH ×3 (00:09→20:31)
[2021-12-26] MEDS: MYCOPHENOLATE MOFETIL 250 MG CAP PO SCH ×2 (00:09→08:23)
[2021-12-26] MEDS: cycloSPORINE 100 MG CAP PO SCH ×3 (00:10→20:30)
[2021-12-26] MEDS: ULORIC~ORDER AWAITING ACTION SCH ×3 (04:43→14:10)
[2021-12-26] MEDS ORDERED: PIPERACILLIN/TAZOBACTAM 4.5 GM in DEXTROSE 5% 100 ML IV SCH (06:00)
[2021-12-26 06:29] LABS: Basophils # (auto) 0.06 K/uL (0-0.2); Eosinophils # (auto) 0.11 K/uL (0-0.50); Eosinophils % (auto) 1.9 %; Hematocrit (blood only) 26.5 % (40.1-51.0); Hemoglobin 8.3 g/dl (14.0-18.0); Immature Granulocytes # (auto) 0.05 K/uL (0.00-0.02); Immature Granulocytes % (auto) 0.9 %; Lymphocytes # (auto) 0.17 K/uL (1.2-3.4); Mean Corpuscular Hemoglobin 28.8 pg (25.0-34.0); Mean Corpuscular Hgb Conc 31.3 g/dL (32.0-36.0); Mean Platelet Volume 9.3 fL (9.4-12.4); Monocytes # (auto) 1.05 K/uL (0.24-0.82); Monocytes % (auto) 18.3 %; Neutrophils # (auto) 4.29 K/uL (1.4-6.5); Neutrophils % (auto) 74.9 %; Platelet Count 326 K/uL (130-400); RDW Coefficient of Variation 14.7 % (11.5-14.5); RDW Standard Deviation 49.6 fL (36.4-46.3); Red Blood Count 2.88 M/uL (4.63-6.08); White Blood Count 5.73 K/ul (4.8-10.8)
[2021-12-26 07:11] LABS: Albumin Globulin Ratio 1.4 (0.9-2); Albumin Level 3.2 gm/dl (3.4-5.0); BUN Creatinine Ratio 15.7 (10-20); Bilirubin,Total 1.2 mg/dl (0.2-1.0); Calcium 8.4 mg/dl (8.5-10.1); Creatinine Clr Calc Pharmacy 34.4 ml/min; Est GFR (African American) 24.4 ml/min; Est GFR (Non-African American) 21.1 ml/min; Globulin 2.3 gm/dl (2.5-4.0); Magnesium 1.9 mg/dl (1.7-2.4); Potassium 4.8 mmol/L (3.5-5.1); Total Protein 5.5 gm/dl (6.0-8.3)
[2021-12-26 07:26] LABS: A calco-baum cmplx NotReported Not Detected (NotDetected); Bact fragilis Not Reported Not Detected (NotDetected); C auris Not Reported Not Detected (NotDetected); Calbicans Not Reported Not Detected (NotDetected); Candida glabrata Not Reported Not Detected (NotDetected); Candida krusei Not Reported Not Detected (NotDetected); Cneoformans/gatti Not Reported Not Detected (NotDetected); Cparapsilosis Not Reported Not Detected (NotDetected); Ctropicalis Not Reported Not Detected (NotDetected); E cloacae compx Not Reported Not Detected (NotDetected); Efaecalis Not Reported DETECTED (NotDetected); Efaecium Not Reported Not Detected (NotDetected); Enterobacterales Not Reported Not Detected (NotDetected); Escherichia coli Not Reported Not Detected (NotDetected); H influenzae Not Reported Not Detected (NotDetected); K aerogenes Not Reported Not Detected (NotDetected); Koxytoca Not Reported Not Detected (NotDetected); Kpneumoniae grp Not Reported Not Detected (NotDetected); Lmonocyt Not Reported Not Detected (NotDetected); N meningitidis Not Reported Not Detected (NotDetected); P aeruginosa Not Reported Not Detected (NotDetected); Proteus spp Not Reported Not Detected (NotDetected); Salmonella spp Not Reported Not Detected (NotDetected); Smarcescens Not Reported Not Detected (NotDetected); Staph lugdunensis Not Reported Not Detected (NotDetected); Staph spp. Not Reported Not Detected (NotDetected); Staphaureus Not Reported Not Detected (NotDetected); Staphepi Not Reported Not Detected (NotDetected); Stenmaltophilia Not Reported Not Detected (NotDetected); Strep agal(GrpB) Not Reported Not Detected (NotDetected); Strep pneum Not Reported Not Detected (NotDetected); Strep pyog (GrpA) Not Reported Not Detected (NotDetected); Strep spp Not Reported Not Detected (NotDetected); VanAB Resistant Gene VRE Not Detected (NotDetected)
[2021-12-26 07:42] LABS: Enterococcus faecalis DETECTED (NotDetected)
[2021-12-26] MEDS: SODIUM CHLORIDE 0.9% 1000ML 1,000 ML IV SCH (08:13)
[2021-12-26] MEDS: AMPICILLIN 2,000 MG in SODIUM CHLOR 0.9% AD-VAN 100 ML IV SCH ×3 (08:21→19:49)
[2021-12-26] MEDS: predniSONE 5 MG TAB PO SCH (08:23)
[2021-12-26] MEDS: FERROUS SULFATE 325 MG TAB PO SCH ×2 (08:23→16:18)
[2021-12-26] MEDS: PANTOprazole 40 MG TAB PO SCH (08:23)
[2021-12-26] MEDS: DULoxetine HCL 60 MG CAP PO SCH (08:24)
[2021-12-26] MEDS: GABAPENTIN 300 MG CAP PO SCH ×2 (08:24→13:20)
[2021-12-26] MEDS ORDERED: EPOETIN ALFA 10,000 UNITS/ML VIAL SQ ONE (10:00)
--- NOTE | 2021-12-26 12:38 | Nephrology Consultation ---
Date of Consultation December 26, 2021 Assessment & Plan (1) Acute on chronic renal failure: Creatinine has been fairly stable at 2.8-3.0 mg/dL since episode of LORENZO in July/August. Urine studies have thankfully not been consistent with progressive FSGS. Kirby has suffered from several recent episodes of hemodynamic and volume mediated LORENZO with suspected ATN. Urine studies and CT scan were reviewed. I would not add any additional work up at this time pending additional monitoring. Volume status appears acceptable following recent IV saline infusions from the ER and admission. No additional IVF ordered. Kirby reports adequate PO intake. Electrolytes are acceptable. Losartan has been held but it would be reasonable to restart if kidney function stable. Medications are otherwise appropriately dosed for kidney function. (2) End stage renal disease: Allograft functioning reasonably well. No emergent indication for dialysis. AVF is mature for use, if needed in the future. (3) Focal glomerular sclerosis: Remains on cyclosporin and prednisone 5 mg daily. Close outpatient follow up required. (4) Immunocompromised: May hold Cellcept in the setting of bacteremia. Consider restarting in next 24- 48 hours, if signs of infection improved. Continue cyclosporine and prednisone as Rx. Repeat cyclosporine trough will be arranged with AM labs. (5) Anemia: Stable following hospital discharge. CT demonstrated stable retroperitoneal hematoma. Etiology unclear. No additional intervention required at this time. Epogen [address]35 units provided today. History of Present Illness Reason for Consultation: LORENZO/CKD Requesting Physician: Aniya Zafar MD Attending Physician: Aniya Zafar MD History of Present Illness Mr. Kirby Prado is a 61 year-old male with a history of ESRD and functional kidney transplant. The primary cause of his ESRD is not certain. He did not have a [place] kidney biopsy. He was on hemodialysis via and LUE AVF prior to transplant. 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 Over the past several months, progressive worsening allograft function in the setting of multiple recent episodes of LORENZO. Following multiple recent hospitalizations, baseline creatinine has been ~2.8-3.3 mg/dL. Cyclosporin level was slightly elevated in October. The medication was not adjusted. He feels that he has been tolerating current IS with cyclosporine 150 mg BID, mycophenolate mofetil 1000 mg BID, and prednisone 5 mg daily. In December of 2019, he had an episode of prostatitis. He was treated for 1 month with resolution of his symptoms. In July of 2020, he developed a recurrence of symptoms of prostatitis treated with ciprofloxacin. He also had a ventral hernia at that time and was scheduled for elective surgery to have that repaired. As he was improving from his prostatitis, he did have a COVID test done as a preoperative procedure for his hernia surgery. That proved to be positive. He eventually experienced some mild respiratory symptoms for which he was evaluated in the ER. His evaluation was unremarkable. However, he developed abdominal pain prompting a return to the emergency room. His CT scan of his abdomen showed a large rectus sheath hematoma. He was admitted for pain control. His INR was prolonged presumably because of the effective Cipro on the metabolism of warfarin. That was corrected quickly with vitamin K. During the hospitalization he required large doses of hydromorphone to control his pain which did result in some mental status changes. Gabapentin was then reduced. In March 2021, he was admitted and treated with Tamiflu for influenza A. In July 2021, he was admitted following a fall at home with rhabdomyolysis and tibial plateau fracture. He was treated for LORENZO related to rhabdomyolysis. Attributed to statin and cyclosporin combination. Creatinine peaked at 4.4 on 08/13. Creatinine improved to 3.1 mg/dL. Diuretics and statin held. He unfortunately suffered a fall in the hospital resulting in notably bruising and injury to the ribs on the left side of his chest. Kirby was admitted to [facility] from December 02- with acute blood loss anemia associated with retroperitoneal hematoma. He required several units of blood during the admission and was discharged with a hemoglobin of ~8.3 g/dL. Kirby presented to the ER at [facility] yesterday with fever (Tmax 100.7), diarrhea, abdominal pain, and poor oral intake. Symptoms starting approximately 4 days prior to arrival. No known sick contacts. COVID testing negative. He received IV cefepime in the ER. 2/2 blood cultures from admission positive for gram positive cocci in chains. Antibiotic therapy has been switched to ampicillin. CT abdomen and pelvis demonstrating a stable large retroperitoneal hematoma. No other notable abnormality appreciated. Kirby underwent a living unrelated kidney transplant March 2019. His [id number] was the donor. Creatinine kamilla was 1.2-1.4 mg/dL. In the summer, he developed evidence of a DVT in his left leg and was anticoagulated with warfarin.However, he then developed generalized edema and significant proteinuria. Renal biopsy showed focal segmental glomerulosclerosis in the transplant. He had never had a [place] kidney biopsy done in the past. Treatment consisted of plasmapheresis and IVIG followed by Rituxan. Belatacept was then switched to cyclosporin. He continued on mycophenolate mofetil 1 g twice daily. Additionally, losartan was added. Creatinine initially stabilized in the range of 1.5-2.0 mg/dL. Proteinuria trended down from >5 grams to 0.5 grams. Urine studies in July 2021 demonstrate a PCR of 0.5 g/g. UA in October 2021 was bland and acellular. Current UA/microscopy demonstrating 2+ protein, trace blood, trace LE, 10-30 WBC, no RBC. Allergies Allergy/AdvReac Type Severity Reaction Status Date / Time allopurinol Allergy Unknown Rash Verified 12/25/21 14:10 Penicillins Allergy Unknown Unknown Verified 12/25/21 14:10 hydromorphone [From Dilaudid] AdvReac Severe confusion Verified 12/25/21 14:10 Home Medications Medication Instructions Recorded Confirmed Type aspirin 81 mg tablet,delayed 81 mg PO QAM 04/24/19 12/25/21 History release (Adult Low Dose Aspirin) cholecalciferol (vitamin D3) 25 1,000 units PO QAM 04/24/19 12/25/21 History mcg (1,000 unit) capsule docusate sodium 100 mg capsule 100 mg PO BID PRN Constipation 04/24/19 12/25/21 History (Colace) multivitamin (Daily Multi-Vitamin) 1 tab PO QAM 04/24/19 12/25/21 History tamsulosin 0.4 mg capsule (Flomax) 0.4 mg PO HS 04/24/19 12/25/21 History prednisone 5 mg tablet 5 mg PO QAM 05/29/19 12/25/21 History mycophenolate mofetil 250 mg 1,000 mg PO BID 02/20/20 12/25/21 History capsule (CellCept) febuxostat 80 mg tablet (Uloric) 80 mg PO QAM 03/06/20 12/25/21 History albuterol sulfate 90 mcg/actuation 2 inha inhalation Q6H PRN 04/06/21 12/25/21 Rx aerosol inhaler shortness of breath or wheezing #1 inhaler omeprazole 40 mg capsule,delayed 40 mg PO QAM #90 caps 04/29/21 12/25/21 Rx release cyclosporine 100 mg capsule 150 mg PO BID 06/16/21 12/25/21 History magnesium oxide 800 mg PO BID 06/16/21 12/25/21 History ferrous sulfate 325 mg (65 mg 325 mg PO BID 08/05/21 12/25/21 History iron) tablet (iron) gabapentin 300 mg capsule 600 mg PO .AM & AFTERNOON 08/22/21 12/25/21 History (Neurontin) acetaminophen 500 mg tablet 1,000 mg PO QID PRN Pain 08/24/21 12/25/21 History (Tylenol Extra Strength) duloxetine 60 mg capsule,delayed 60 mg PO QAM #90 caps 11/13/21 12/25/21 Rx release gabapentin 300 mg capsule 900 mg PO HS 11/17/21 12/25/21 History losartan 50 mg tablet 50 mg PO DAILY #90 tabs 12/15/21 12/25/21 Rx furosemide 40 mg tablet (Lasix) 60 mg PO QAM PRN Edema 12/25/21 12/25/21 History Patient History Medical History (Updated 12/26/21 @ 15:38 by Srikanth Aguilera DO) AV fistula LEFT WRIST> NO DIALYSIS CURRENTLY> FISTULA STILL WORKS PER PT DVT (deep venous thrombosis) Right- 04/2019 following transplant > Coumadin S/P LEFT LEG SURGERY (EXCISION OF MELANOMA LEFT LEG) 10 YEARS AGO. End stage renal disease follows Dr. Aguilera and transplant team at [facility] Family history of blood clots Gout History of basal cell carcinoma History of malignant melanoma of skin Hypertension Influenza A Nephrolithiasis Pneumonia due to COVID-19 virus Rectus sheath hematoma Sarcoidosis Umbilical hernia Venous insufficiency Venous stasis dermatitis Surgical History (Updated 12/26/21 @ 00:10 by Anibal Cason DO) H/O colonoscopy History of cardiac cath 01/2018 > [facility] > NO STENTS History of melanoma excision left calf History of tonsillectomy History of tooth extraction Kidney transplanted APR 04, 2019 > [facility] > right side Family History Mother Stroke Heart disease Grandmother Cancer Lung disease Denies family history of Ovarian cancer Prostate cancer Colorectal cancer Social History Smoking Status: Never smoker Second Hand Exposure: No; Hx Alcohol Use: Yes Hx Substance Use: No Preferred Language: Slovenian Communication Ability: Effective Wound Care Nurse Required: No Beliefs That Will Affect Care: None marital status: Current Living Situation: Spouse Current Living Situation Comment: living with . current occupational status: employed current occupation: [employer] How many Children do You have: 1 Feels Safe at Home: Yes caffeine: Yes Dental Care, Regularly: Yes Seatbelt Use: always Sunscreen Use: Yes Assistive Devices: None Review of Systems Review of Systems: All systems reviewed & are unremarkable except as noted in HPI & below Gastrointestinal: + diarrhea/loose stools; no abdominal pain, no nausea, no blood in stools and no melena Genitourinary: no dysuria, no urinary frequency or no problem reported Musculoskeletal: + neck pain, + joint pain and + stiffness; no back pain and no radicular pain Physical Exam Constitutional: well developed; no acute distress Eyes: + anicteric sclerae; no corneal abnormality ENMT: Mouth: + dry oral mucous membranes; no oral mucosal abnormality Neck: normal visual inspection and trachea midline Respiratory: normal respiratory effort Auscultation: lungs clear to auscultation bilaterally Cardiovascular: Rate/Rhythm: regular rate Heart Sounds: normal S1 and normal S2 Extremities: + pedal edema, + varicosities and + AV fistula (LUE with thrill and bruit) Musculoskeletal: Extremities: no cyanosis and no clubbing Skin: normal turgor; no lesions Neurologic: Motor/Sensory: no tremor and no asterixis Psychiatric: Orientation: alert and oriented x 3 Results & Data ([facility]) Vital Signs (Past 12 Hours) Vital Signs Temp Pulse Pulse Resp BP Pulse Ox O2 Del Method 12/26/21 11:14 36.9 C 83 17 124/81 97 Room Air 12/26/21 08:00 71 12/26/21 06:50 36.6 C 74 20 142/91 H 97 Room Air 12/26/21 03:24 36.6 C 71 18 131/83 96 Room Air Laboratory Results Laboratory Results - last 24 hr 12/25/21 12/25/21 12/25/21 17:20 17:20 17:20 WBC 7.60 RBC 3.13 L Hgb 9.2 L POC Hgb Hct 28.7 L POC Hct MCV 91.7 MCH 29.4 MCHC 32.1 RDW Std Deviation 49.1 H RDW Coeff of Theresa 14.7 H Plt Count 384 MPV 9.9 Immature Gran % (Auto) 0.8 Neut % (Auto) 82.7 Lymph % (Auto) 1.3 [place] % (Auto) 12.9 Eos % (Auto) 1.4 Baso % (Auto) 0.9 Neut # (Auto) 6.28 Lymph # (Auto) 0.10 L [place] # (Auto) 0.98 H Eos # (Auto) 0.11 Baso # (Auto) 0.07 Immature Gran # (Auto) 0.06 H PT 11.4 INR 1.1 APTT 28.8 PTT Ratio 1.0 POC Sodium Sodium 133 L POC Potassium Potassium 5.3 H POC Chloride Chloride 103 Carbon Dioxide 20 L POC Total CO2 Anion Gap 10 POC Anion Gap POC BUN BUN 49 H Creatinine 3.11 H D POC Creatinine Est Cr Clr Drug Dosing 34.0 Est GFR ( Amer) 23.9 Est GFR (Non-Af Amer) 20.7 BUN/Creatinine Ratio 15.8 Glucose 96 POC Glucose (other) Lactate Calcium 9.3 POC Ioniz Calcium [place] Magnesium Total Bilirubin 1.4 H AST 19 ALT 17 Alkaline Phosphatase 91 Total Protein 6.5 Albumin 3.8 Globulin 2.7 Albumin/Globulin Ratio 1.4 Procalcitonin Urine Color Urine Appearance Urine pH Ur Specific [place] Urine Protein Urine Glucose (UA) Urine Ketones Urine Blood Urine Nitrite Urine Bilirubin Urine Urobilinogen Ur Leukocyte Esterase Urine WBC (Auto) Urine RBC (Auto) U Hyaline Cast (Auto) U Epithel Cells (Auto) Urine Bacteria (Auto) Stool Occult Bld Scrn SARS-CoV-2 (PCR) Enterococc faecalis PCR Influenza Type A (PCR) Influenza Type B (PCR) RSV (RT-PCR) Angel/B-Vanco Res Genes Bld Cult ID Panel PCR Blood Type Antibody Screen 12/25/21 12/25/21 12/25/21 17:20 17:20 17:30 WBC RBC Hgb POC Hgb Hct POC Hct MCV MCH MCHC RDW Std Deviation RDW Coeff of Theresa Plt Count MPV Immature Gran % (Auto) Neut % (Auto) Lymph % (Auto) [place] % (Auto) Eos % (Auto) Baso % (Auto) Neut # (Auto) Lymph # (Auto) [place] # (Auto) Eos # (Auto) Baso # (Auto) Immature Gran # (Auto) PT INR APTT PTT Ratio POC Sodium Sodium POC Potassium Potassium POC Chloride Chloride Carbon Dioxide POC Total CO2 Anion Gap POC Anion Gap POC BUN BUN Creatinine POC Creatinine Est Cr Clr Drug Dosing Est GFR ( Amer) Est GFR (Non-Af Amer) BUN/Creatinine Ratio Glucose POC Glucose (other) Lactate 0.9 Calcium POC Ioniz Calcium [place] Magnesium Total Bilirubin AST ALT Alkaline Phosphatase Total Protein Albumin Globulin Albumin/Globulin Ratio Procalcitonin 0.36 Urine Color Urine Appearance Urine pH Ur Specific [place] Urine Protein Urine Glucose (UA) Urine Ketones Urine Blood Urine Nitrite Urine Bilirubin Urine Urobilinogen Ur Leukocyte Esterase Urine WBC (Auto) Urine RBC (Auto) U Hyaline Cast (Auto) U Epithel Cells (Auto) Urine Bacteria (Auto) Stool Occult Bld Scrn SARS-CoV-2 (PCR) NEGATIVE Enterococc faecalis PCR Influenza Type A (PCR) Negative Influenza Type B (PCR) Negative RSV (RT-PCR) Negative Angel/B-Vanco Res Genes Bld Cult ID Panel PCR Blood Type Antibody Screen 12/25/21 12/25/21 12/25/21 17:30 17:38 18:45 WBC RBC Hgb POC Hgb 9.2 L Hct POC Hct 27 L MCV MCH MCHC RDW Std Deviation RDW Coeff of Theresa Plt Count MPV Immature Gran % (Auto) Neut % (Auto) Lymph % (Auto) [place] % (Auto) Eos % (Auto) Baso % (Auto) Neut # (Auto) Lymph # (Auto) [place] # (Auto) Eos # (Auto) Baso # (Auto) Immature Gran # (Auto) PT INR APTT PTT Ratio POC Sodium 135 Sodium POC Potassium 5.4 H Potassium POC Chloride 106 Chloride Carbon Dioxide POC Total CO2 20 L Anion Gap POC Anion Gap 16.0 POC BUN 46 H BUN Creatinine POC Creatinine 3.5 H Est Cr Clr Drug Dosing Est GFR ( Amer) Est GFR (Non-Af Amer) BUN/Creatinine Ratio Glucose POC Glucose (other) 98 Lactate Calcium POC Ioniz Calcium [place] 1.22 Magnesium Total Bilirubin AST ALT Alkaline Phosphatase Total Protein Albumin Globulin Albumin/Globulin Ratio Procalcitonin Urine Color Dark Yellow Urine Appearance Clear Urine pH 5.5 Ur Specific [place] 1.016 Urine Protein 2+ H Urine Glucose (UA) Negative Urine Ketones 1+ H Urine Blood Trace H Urine Nitrite Negative Urine Bilirubin Negative Urine Urobilinogen Negative Ur Leukocyte Esterase Trace H Urine WBC (Auto) 10-30 H Urine RBC (Auto) 0-4 U Hyaline Cast (Auto) 1-5 U Epithel Cells (Auto) 20-30 H Urine Bacteria (Auto) Negative Stool Occult Bld Scrn SARS-CoV-2 (PCR) Enterococc faecalis PCR DETECTED A Influenza Type A (PCR) Influenza Type B (PCR) RSV (RT-PCR) Angel/B-Vanco Res Genes VRE Not Detected Bld Cult ID Panel PCR See PCR Comment Blood Type Antibody Screen 12/25/21 12/26/21 12/26/21 23:43 06:16 06:16 WBC 5.73 RBC 2.88 L Hgb 8.3 L POC Hgb Hct 26.5 L POC Hct MCV 92.0 MCH 28.8 MCHC 31.3 L RDW Std Deviation 49.6 H RDW Coeff of Theresa 14.7 H Plt Count 326 MPV 9.3 L Immature Gran % (Auto) 0.9 Neut % (Auto) 74.9 Lymph % (Auto) 3.0 [place] % (Auto) 18.3 Eos % (Auto) 1.9 Baso % (Auto) 1.0 Neut # (Auto) 4.29 Lymph # (Auto) 0.17 L [place] # (Auto) 1.05 H Eos # (Auto) 0.11 Baso # (Auto) 0.06 Immature Gran # (Auto) 0.05 H PT INR APTT PTT Ratio POC Sodium Sodium 135 L POC Potassium Potassium 4.8 POC Chloride Chloride 107 Carbon Dioxide 20 L POC Total CO2 Anion Gap 8 POC Anion Gap POC BUN BUN 48 H Creatinine 3.06 H POC Creatinine Est Cr Clr Drug Dosing 34.4 Est GFR ( Amer) 24.4 Est GFR (Non-Af Amer) 21.1 BUN/Creatinine Ratio 15.7 Glucose 94 POC Glucose (other) Lactate Calcium 8.4 L POC Ioniz Calcium [place] Magnesium 1.9 Total Bilirubin 1.2 H AST 17 ALT 15 Alkaline Phosphatase 79 Total Protein 5.5 L Albumin 3.2 L Globulin 2.3 L Albumin/Globulin Ratio 1.4 Procalcitonin Urine Color Urine Appearance Urine pH Ur Specific [place] Urine Protein Urine Glucose (UA) Urine Ketones Urine Blood Urine Nitrite Urine Bilirubin Urine Urobilinogen Ur Leukocyte Esterase Urine WBC (Auto) Urine RBC (Auto) U Hyaline Cast (Auto) U Epithel Cells (Auto) Urine Bacteria (Auto) Stool Occult Bld Scrn SARS-CoV-2 (PCR) Enterococc faecalis PCR Influenza Type A (PCR) Influenza Type B (PCR) RSV (RT-PCR) Angel/B-Vanco Res Genes Bld Cult ID Panel PCR Blood Type A Positive Antibody Screen NEGATIVE 12/26/21 12:35 WBC RBC Hgb POC Hgb Hct POC Hct MCV MCH MCHC RDW Std Deviation RDW Coeff of Theresa Plt Count MPV Immature Gran % (Auto) Neut % (Auto) Lymph % (Auto) [place] % (Auto) Eos % (Auto) Baso % (Auto) Neut # (Auto) Lymph # (Auto) [place] # (Auto) Eos # (Auto) Baso # (Auto) Immature Gran # (Auto) PT INR APTT PTT Ratio POC Sodium Sodium POC Potassium Potassium POC Chloride Chloride Carbon Dioxide POC Total CO2 Anion Gap POC Anion Gap POC BUN BUN Creatinine POC Creatinine Est Cr Clr Drug Dosing Est GFR ( Amer) Est GFR (Non-Af Amer) BUN/Creatinine Ratio Glucose POC Glucose (other) Lactate Calcium POC Ioniz Calcium [place] Magnesium Total Bilirubin AST ALT Alkaline Phosphatase Total Protein Albumin Globulin Albumin/Globulin Ratio Procalcitonin Urine Color Urine Appearance Urine pH Ur Specific [place] Urine Protein Urine Glucose (UA) Urine Ketones Urine Blood Urine Nitrite Urine Bilirubin Urine Urobilinogen Ur Leukocyte Esterase Urine WBC (Auto) Urine RBC (Auto) U Hyaline Cast (Auto) U Epithel Cells (Auto) Urine Bacteria (Auto) Stool Occult Bld Scrn Negative SARS-CoV-2 (PCR) Enterococc faecalis PCR Influenza Type A (PCR) Influenza Type B (PCR) RSV (RT-PCR) Angel/B-Vanco Res Genes Bld Cult ID Panel PCR Blood Type Antibody Screen PG Care Time/CCT Total # of Minutes Spent Total Time Spent with Patient: Total time spent is greater than 50% in coordination of care (as documented) at patient's floor/unit and/or counseling patient: Coding Level of Care Code 79575 Inpt Consult Level 5 Diagnoses Acute on chronic renal failure N17.9; N18.9 Acute renal failure type: unspecified End stage renal disease N18.6 Focal glomerular sclerosis N05.1 Immunocompromised D89.9 Anemia D64.9 (1) Acute on chronic renal failure Acute renal failure type: unspecified
--- NOTE | 2021-12-26 16:35 | Hospitalist Progress Note ---
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 Blood cultures now growing Enterococcus faecalis in both sets based on FoKo results Urine culture now with pinpoint growth He had recent hospitalization at [facility] several weeks ago for severe retroperitoneal hemorrhage requiring transfusion and reversal of anticoagulation. He did have a Bond catheter at that time. He reports having urinary urgency and frequency ever since that time. Most likely this is the source of infection. Fevers have resolved, tachycardia resolved, blood pressures remained stable. -Switch Zosyn to IV ampicillin -Continue to follow blood and urine cultures for final identification and sensitivities -Repeat blood cultures at the 24-hour genny from the last -Check echocardiogram given murmur on examination and gram-positive bacteremia. He has no other prostheses, pacemaker, etc. -Consult infectious disease given complex case of recent retroperitoneal bleed, recurrent infections, renal transplant on immunosuppression -Hold home CellCept for now as per my discussion with nephrology-if continues to improve clinically, could restart CellCept tomorrow -Need to continue cyclosporine and prednisone (2) Diarrhea: Plan: Seems to have resolved Fecal occult negative Awaiting stool PCR CT abdomen/pelvis with stable size of large RP hematoma, evidence of bladder outlet obstruction with thickened bladder wall, no colitis or diverticulitis (3) Acute on chronic renal failure: Plan: Creatinine up slightly from your more recent baseline at 3.1 on arrival, with mild metabolic acidosis and hyponatremia Suspect mild dehydration from fevers and poor p.o. intake the last couple of days Received 2 L normal saline overnight Stop IV fluids as he is tolerating p.o. and fevers are resolved Follow BMP this afternoon Holding home losartan Appreciate nephrology consultation Follow daily BMP Renally dose medications and avoid nephrotoxins-we will decrease gabapentin to 600 Mg p.o. 3 times daily after discussion with patient (4) History of renal transplant: Plan: Holding CellCept until tomorrow as above Continue prednisone and cyclosporine With creatinine around 2.7 baseline which has progressed since transplant Follows at [facility] -Recommend follow-up with his transplant team since he had his retroperitoneal hematoma and there is suspicion that the source of this is his nonfunctioning left kidney-needs to evaluation for possible nephrectomy (5) Hypertension: Plan: Blood pressures are controlled Holding home losartan for acute kidney injury (6) Obstructive sleep apnea: Plan: Continue CPAP (7) Peripheral neuropathy: Plan: Continue duloxetine 60 mg daily Decrease gabapentin 600 Mg p.o. 3 times daily due to renal function-patient is agreeable to this as the increased dose of duloxetine has improved his neuropathy (8) Anemia: Plan: Hemoglobin 8.3 down from 9.2 on admission likely some hemodilution, however his hemoglobin is improved since he has retroperitoneal hematoma and required multiple units of PRBCs transfused several weeks ago Follow CBC in the morning Fecal occult is negative CT abdomen/pelvis with stable RP hematoma Give Epogen 10,000 units x 1 today as per nephrology (9) BPH (benign prostatic hyperplasia): Plan: Making urine without difficulty emptying Continue home tamsulosin (10) DVT (deep venous thrombosis): Plan: 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 Only 1 stool today so far that was soft but not diarrhea. Only has mild left-sided abdominal pain left over from his retroperitoneal hematoma. Denies chest pains or shortness of breath. Is in good spirits and has a decent appetite. He is making urine. No blood in the urine. He did notice that he has been having urinary frequency and urgency for the last few weeks since he was discharged from his hospitalization for retroperitoneal bleed. He did have a Bond catheter placed at that time. Telemetry with normal sinus rhythm with rates in the 70s to 80s I discussed his case with nephrology Review of Systems Review of Systems: All systems reviewed & are unremarkable except as noted in HPI & below Has neuropathy in feet and legs but has improved since increasing his duloxetine dose as an outpatient Physical Exam Constitutional: WD/WN, vitals as above Eyes: + anicteric sclerae Neck: trachea midline, no thyromegaly Respiratory: normal respiratory effort, lungs clear to auscultation Cardiovascular: Rate/Rhythm: regular rate and regular rhythm Heart Sounds: + murmur (2/6 systolic murmur at the apex) Chest (Breasts): Chest: normal inspection of chest Gastrointestinal (Abdomen): Inspection/Auscultation: normal bowel sounds; abdomen not distended Percussion/Palpation: + abdomen tender (Mild in the left lower quadrant without guarding or rebound) and abdomen soft Musculoskeletal: Extremities: no cyanosis and no clubbing Skin: + rash (Chronic venous stasis changes of legs) Neurologic: moves all extremities and awake; no focal motor deficits Frequent movement of feet and legs Psychiatric: A+Ox3, euthymic affect Results & Data Results & Data ([facility]) Vital Signs (Past 12 Hours) Vital Signs Temp Pulse Pulse Resp BP Pulse Ox O2 Del Method 12/26/21 15:36 36.7 C 65 20 143/79 H 97 Room Air 12/26/21 15:32 74 12/26/21 11:14 36.9 C 83 17 124/81 97 Room Air 12/26/21 08:00 71 12/26/21 06:50 36.6 C 74 20 142/91 H 97 Room Air Laboratory Results 12/26/21 12/26/21 12/26/21 Range/Units 17:00 12:35 06:16 WBC (4.8-10.8) K/ul RBC (4.63-6.08) M/uL Hgb (14.0-18.0) g/dl Hct (40.1-51.0) % MCV (80.0-100.0) fL MCH (25.0-34.0) pg MCHC (32.0-36.0) g/dL RDW Std Deviation (36.4-46.3) fL RDW Coeff of Theresa (11.5-14.5) % Plt Count (130-400) K/uL MPV (9.4-12.4) fL Immature Gran % (Auto) % Neut % (Auto) % Lymph % (Auto) % [place] % (Auto) % Eos % (Auto) % Baso % (Auto) % Neut # (Auto) (1.4-6.5) K/uL Lymph # (Auto) (1.2-3.4) K/uL [place] # (Auto) (0.24-0.82) K/uL Eos # (Auto) (0-0.50) K/uL Baso # (Auto) (0-0.2) K/uL Immature Gran # (Auto) (0.00-0.02) K/uL Sodium 136 135 L (136-145) mmol/L Potassium 4.9 4.8 (3.5-5.1) mmol/L Chloride 106 107 (98-107) mmol/L Carbon Dioxide 22 20 L (21-32) mmol/L Anion Gap 8 8 (3-11) BUN 47 H 48 H (6-23) mg/dl Creatinine 3.22 H 3.06 H (0.6-1.4) mg/dl Est Cr Clr Drug Dosing 32.7 34.4 ml/min Est GFR ( Amer) 23.0 24.4 ml/min Est GFR (Non-Af Amer) 19.8 21.1 ml/min BUN/Creatinine Ratio 14.6 15.7 (10-20) Glucose 120 H 94 (70-99(Fasting)) mg/dl Calcium 9.1 8.4 L (8.5-10.1) mg/dl Magnesium 1.9 (1.7-2.4) mg/dl Total Bilirubin 1.2 H (0.2-1.0) mg/dl AST 17 (13-39) U/L ALT 15 (7-52) U/L Alkaline Phosphatase 79 (34-104) U/L Total Protein 5.5 L (6.0-8.3) gm/dl Albumin 3.2 L (3.4-5.0) gm/dl Globulin 2.3 L (2.5-4.0) gm/dl Albumin/Globulin Ratio 1.4 (0.9-2) Procalcitonin (0-0.5) ng/ml Urine Color Urine Appearance (Clear) Urine pH (4.5-7.5) Ur Specific [place] (1.000-1.030) Urine Protein (Negative) Urine Glucose (UA) (Negative) Urine Ketones (Negative) Urine Blood (Negative) Urine Nitrite (Negative) Urine Bilirubin (Negative) Urine Urobilinogen (Negative) Ur Leukocyte Esterase (Negative) Urine WBC (Auto) (0-5) /hpf Urine RBC (Auto) (0-4) /hpf U Hyaline Cast (Auto) (0-5) /lpf U Epithel Cells (Auto) (0-5) /lpf Urine Bacteria (Auto) (Negative) Stool Occult Bld Scrn Negative (Negative) SARS-CoV-2 (PCR) (Negative) Enterococc faecalis PCR (NotDetected) Influenza Type A (PCR) (Neg) Influenza Type B (PCR) (Neg) RSV (RT-PCR) (Neg) Angel/B-Vanco Res Genes (NotDetected) Bld Cult ID Panel PCR (NotDetected) Blood Type Antibody Screen 12/26/21 12/25/21 12/25/21 Range/Units 06:16 23:43 18:45 WBC 5.73 (4.8-10.8) K/ul RBC 2.88 L (4.63-6.08) M/uL Hgb 8.3 L (14.0-18.0) g/dl Hct 26.5 L (40.1-51.0) % MCV 92.0 (80.0-100.0) fL MCH 28.8 (25.0-34.0) pg MCHC 31.3 L (32.0-36.0) g/dL RDW Std Deviation 49.6 H (36.4-46.3) fL RDW Coeff of Theresa 14.7 H (11.5-14.5) % Plt Count 326 (130-400) K/uL MPV 9.3 L (9.4-12.4) fL Immature Gran % (Auto) 0.9 % Neut % (Auto) 74.9 % Lymph % (Auto) 3.0 % [place] % (Auto) 18.3 % Eos % (Auto) 1.9 % Baso % (Auto) 1.0 % Neut # (Auto) 4.29 (1.4-6.5) K/uL Lymph # (Auto) 0.17 L (1.2-3.4) K/uL [place] # (Auto) 1.05 H (0.24-0.82) K/uL Eos # (Auto) 0.11 (0-0.50) K/uL Baso # (Auto) 0.06 (0-0.2) K/uL Immature Gran # (Auto) 0.05 H (0.00-0.02) K/uL Sodium (136-145) mmol/L Potassium (3.5-5.1) mmol/L Chloride (98-107) mmol/L Carbon Dioxide (21-32) mmol/L Anion Gap (3-11) BUN (6-23) mg/dl Creatinine (0.6-1.4) mg/dl Est Cr Clr Drug Dosing ml/min Est GFR ( Amer) ml/min Est GFR (Non-Af Amer) ml/min BUN/Creatinine Ratio (10-20) Glucose (70-99(Fasting)) mg/dl Calcium (8.5-10.1) mg/dl Magnesium (1.7-2.4) mg/dl Total Bilirubin (0.2-1.0) mg/dl AST (13-39) U/L ALT (7-52) U/L Alkaline Phosphatase (34-104) U/L Total Protein (6.0-8.3) gm/dl Albumin (3.4-5.0) gm/dl Globulin (2.5-4.0) gm/dl Albumin/Globulin Ratio (0.9-2) Procalcitonin (0-0.5) ng/ml Urine Color Dark Yellow Urine Appearance Clear (Clear) Urine pH 5.5 (4.5-7.5) Ur Specific [place] 1.016 (1.000-1.030) Urine Protein 2+ H (Negative) Urine Glucose (UA) Negative (Negative) Urine Ketones 1+ H (Negative) Urine Blood Trace H (Negative) Urine Nitrite Negative (Negative) Urine Bilirubin Negative (Negative) Urine Urobilinogen Negative (Negative) Ur Leukocyte Esterase Trace H (Negative) Urine WBC (Auto) 10-30 H (0-5) /hpf Urine RBC (Auto) 0-4 (0-4) /hpf U Hyaline Cast (Auto) 1-5 (0-5) /lpf U Epithel Cells (Auto) 20-30 H (0-5) /lpf Urine Bacteria (Auto) Negative (Negative) Stool Occult Bld Scrn (Negative) SARS-CoV-2 (PCR) (Negative) Enterococc faecalis PCR (NotDetected) Influenza Type A (PCR) (Neg) Influenza Type B (PCR) (Neg) RSV (RT-PCR) (Neg) Angel/B-Vanco Res Genes (NotDetected) Bld Cult ID Panel PCR (NotDetected) Blood Type A Positive Antibody Screen NEGATIVE 12/25/21 12/25/21 12/25/21 Range/Units 17:30 17:30 17:20 WBC (4.8-10.8) K/ul RBC (4.63-6.08) M/uL Hgb (14.0-18.0) g/dl Hct (40.1-51.0) % MCV (80.0-100.0) fL MCH (25.0-34.0) pg MCHC (32.0-36.0) g/dL RDW Std Deviation (36.4-46.3) fL RDW Coeff of Theresa (11.5-14.5) % Plt Count (130-400) K/uL MPV (9.4-12.4) fL Immature Gran % (Auto) % Neut % (Auto) % Lymph % (Auto) % [place] % (Auto) % Eos % (Auto) % Baso % (Auto) % Neut # (Auto) (1.4-6.5) K/uL Lymph # (Auto) (1.2-3.4) K/uL [place] # (Auto) (0.24-0.82) K/uL Eos # (Auto) (0-0.50) K/uL Baso # (Auto) (0-0.2) K/uL Immature Gran # (Auto) (0.00-0.02) K/uL Sodium (136-145) mmol/L Potassium (3.5-5.1) mmol/L Chloride (98-107) mmol/L Carbon Dioxide (21-32) mmol/L Anion Gap (3-11) BUN (6-23) mg/dl Creatinine (0.6-1.4) mg/dl Est Cr Clr Drug Dosing ml/min Est GFR ( Amer) ml/min Est GFR (Non-Af Amer) ml/min BUN/Creatinine Ratio (10-20) Glucose (70-99(Fasting)) mg/dl Calcium (8.5-10.1) mg/dl Magnesium (1.7-2.4) mg/dl Total Bilirubin (0.2-1.0) mg/dl AST (13-39) U/L ALT (7-52) U/L Alkaline Phosphatase (34-104) U/L Total Protein (6.0-8.3) gm/dl Albumin (3.4-5.0) gm/dl Globulin (2.5-4.0) gm/dl Albumin/Globulin Ratio (0.9-2) Procalcitonin 0.36 (0-0.5) ng/ml Urine Color Urine Appearance (Clear) Urine pH (4.5-7.5) Ur Specific [place] (1.000-1.030) Urine Protein (Negative) Urine Glucose (UA) (Negative) Urine Ketones (Negative) Urine Blood (Negative) Urine Nitrite (Negative) Urine Bilirubin (Negative) Urine Urobilinogen (Negative) Ur Leukocyte Esterase (Negative) Urine WBC (Auto) (0-5) /hpf Urine RBC (Auto) (0-4) /hpf U Hyaline Cast (Auto) (0-5) /lpf U Epithel Cells (Auto) (0-5) /lpf Urine Bacteria (Auto) (Negative) Stool Occult Bld Scrn (Negative) SARS-CoV-2 (PCR) NEGATIVE (Negative) Enterococc faecalis PCR DETECTED A (NotDetected) Influenza Type A (PCR) Negative (Neg) Influenza Type B (PCR) Negative (Neg) RSV (RT-PCR) Negative (Neg) Angel/B-Vanco Res Genes VRE Not Detected (NotDetected) Bld Cult ID Panel PCR See PCR Comment (NotDetected) Blood Type Antibody Screen PG Care Time/CCT Total # of Minutes Spent Total Time Spent with Patient: Total time spent is greater than 50% in coordination of care (as documented) at patient's floor/unit and/or counseling patient: Coding Level of Care Code 72183 Subseq Hosp Care Lvl 3 Diagnoses Septicemia A41.9 Diarrhea R19.7 Acute on chronic renal failure N17.9; N18.9 Acute renal failure type: unspecified History of renal transplant Z94.0 Hypertension I10 Hypertension type: essential hypertension Obstructive sleep apnea G47.33 Peripheral neuropathy G62.9 Anemia D64.9 BPH (benign prostatic hyperplasia) N40.1; R39.11 Lower urinary tract symptom detail: urinary hesitancy Lower urinary tract symptom presence: symptoms present DVT (deep venous thrombosis) I82.409 Affected thrombotic vein of extremity: unspecified vein of extremity Chronicity: unspecified DVT location: lower extremity Laterality: unspecified laterality GERD (gastroesophageal reflux disease) K21.9 (1) BPH (benign prostatic hyperplasia) Lower urinary tract symptom detail: urinary hesitancy Lower urinary tract symptom presence: symptoms present Qualified Code(s): N40.1 - Benign prostatic hyperplasia with lower urinary tract symptoms; R39.11 - Hesitancy of micturition (2) DVT (deep venous thrombosis) Affected thrombotic vein of extremity: unspecified vein of extremity Chronicity: unspecified DVT location: lower extremity Laterality: unspecified laterality Qualified Code(s): I82.409 - Acute embolism and thrombosis of unspecified deep veins of unspecified lower extremity (3) Acute on chronic renal failure Acute renal failure type: unspecified (4) Hypertension Hypertension type: essential hypertension Qualified Code(s): I10 - Essential (primary) hypertension
[2021-12-26 17:35] LABS: BUN Creatinine Ratio 14.6 (10-20); Calcium 9.1 mg/dl (8.5-10.1); Creatinine Clr Calc Pharmacy 32.7 ml/min; Est GFR (Non-African American) 19.8 ml/min; Potassium 4.9 mmol/L (3.5-5.1)
[2021-12-26] MEDS: GABAPENTIN 600 MG TAB PO SCH (20:31)
[2021-12-26] MEDS: TAMSULOSIN HCL 0.4 MG CAP PO SCH (20:32)
--- NOTE | 2021-12-26 20:55 | Electrocardiogram Report ---
Test Reason : Blood Pressure : / mmHG Vent. Rate : 179 BPM Atrial Rate : 089 BPM P-R Int : 124 ms QRS Dur : 114 ms QT Int : 176 ms P-R-T Axes : 033 -55 050 degrees QTc Int : 303 ms Sinus rhythm Incomplete right bundle branch block Left anterior fascicular block Minimal voltage criteria for LVH, may be normal variant Nonspecific T wave abnormality Abnormal ECG When compared with ECG of 02-DEC-2021 04:38, HR has increased Confirmed by Saleem Castellon ([id number]) on 12/26/2021 8:55:36 PM Referred By: REFERRED SELF Confirmed By:Saleem Castellon
[2021-12-26] MEDS ORDERED: GABAPENTIN 300 MG CAP PO SCH (21:00)
--- NOTE | 2021-12-26 23:36 | Billing Data ---
Date of Service December 25, 2021 Coding Level of Care Code INT OBSERVATION CARE 70M LVL 3
[2021-12-27] MEDS: AMPICILLIN 2,000 MG in SODIUM CHLOR 0.9% AD-VAN 100 ML IV SCH ×4 (01:56→20:32)
[2021-12-27] MEDS: cycloSPORINE 100 MG CAP PO SCH ×2 (07:54→20:31)
[2021-12-27] MEDS: GABAPENTIN 600 MG TAB PO SCH ×3 (07:54→20:29)
[2021-12-27 07:55] LABS: Basophils # (auto) 0.05 K/uL (0-0.2); Eosinophils # (auto) 0.24 K/uL (0-0.50); Eosinophils % (auto) 4.7 %; Hematocrit (blood only) 27.2 % (40.1-51.0); Hemoglobin 8.3 g/dl (14.0-18.0); Immature Granulocytes # (auto) 0.06 K/uL (0.00-0.02); Immature Granulocytes % (auto) 1.2 %; Lymphocytes # (auto) 0.28 K/uL (1.2-3.4); Lymphocytes % (auto) 5.4 %; Mean Corpuscular Hemoglobin 28.7 pg (25.0-34.0); Mean Corpuscular Hgb Conc 30.5 g/dL (32.0-36.0); Mean Corpuscular Volume 94.1 fL (80.0-100.0); Mean Platelet Volume 9.9 fL (9.4-12.4); Monocytes # (auto) 1.17 K/uL (0.24-0.82); Monocytes % (auto) 22.7 %; Neutrophils # (auto) 3.35 K/uL (1.4-6.5); Platelet Count 300 K/uL (130-400); RDW Coefficient of Variation 14.7 % (11.5-14.5); Red Blood Count 2.89 M/uL (4.63-6.08); White Blood Count 5.15 K/ul (4.8-10.8)
[2021-12-27] MEDS: PANTOprazole 40 MG TAB PO SCH (07:55)
[2021-12-27] MEDS: predniSONE 5 MG TAB PO SCH (07:55)
[2021-12-27] MEDS: DULoxetine HCL 60 MG CAP PO SCH (07:55)
[2021-12-27] MEDS: FEBUXOSTAT 40 MG TABLET PO SCH (07:56)
[2021-12-27] MEDS: FERROUS SULFATE 325 MG TAB PO SCH ×2 (07:57→16:38)
[2021-12-27] MEDS: cycloSPORINE (SANDIMMUNE) 25 MG CAP PO SCH ×2 (07:57→20:30)
[2021-12-27] MEDS: MAGNESIUM OXIDE 400 MG TAB PO SCH ×2 (07:59→20:28)
--- NOTE | 2021-12-27 08:24 | Nephrology Progress Note ---
Date of Service December 27, 2021 Assessment & Plan (1) Acute on chronic renal failure: Plan: * Resolved. Patient is nonoliguric. 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 Question whether it is associated w/ abnormality of L red devil kidney. Consider Urology consultation. Patient likely will not be a candidate for surgical intervention until infection has cleared and hematoma has stabilized. If intervention is required, he may need this performed at tertiary center ([facility]) Admission and Anticipated Discharge Date Admission Date: December 25, 2021 Subjective Mr. Prado was evaluated in his hospital room this morning. He denied fever or flank discomfort and noted that he is tolerating his diet Review of Systems Constitutional: no fever Eyes: no problem reported Ear, Nose, Mouth, Throat: no problem reported Respiratory: no cough and no dyspnea Cardiovascular: no chest pain Gastrointestinal: no abdominal pain and no nausea Genitourinary: no dysuria, no urinary frequency or no problem reported Physical Exam Constitutional: no acute distress Eyes: + anicteric sclerae; no corneal abnormality ENMT: Mouth: + dry oral mucous membranes; no oral mucosal abnormality Neck: normal visual inspection and trachea midline Respiratory: normal respiratory effort Auscultation: lungs clear to auscultation bilaterally Cardiovascular: Rate/Rhythm: regular rate Heart Sounds: normal S1 and normal S2 Extremities: + pedal edema and + AV fistula (LUE with thrill and bruit) Musculoskeletal: Extremities: no cyanosis and no clubbing Skin: normal turgor; no lesions Neurologic: Motor/Sensory: no tremor and no asterixis Psychiatric: Orientation: alert and oriented x 3 Results & Data ([facility]) Vital Signs (Past 12 Hours) Vital Signs Temp Pulse Resp BP Pulse Ox O2 Del Method 12/27/21 07:50 36.4 C L 66 16 160/90 H 100 Room Air 12/27/21 02:53 36.9 C 65 18 157/89 H 97 Room Air 12/26/21 22:46 36.7 C 63 18 122/81 98 Room Air Laboratory Results Laboratory Tests 12/27/21 07:27 WBC 5.15 Hgb 8.3 L Hct 27.2 L Plt Count 300 Laboratory Tests 12/27/21 07:27 Sodium 138 Potassium 4.9 Chloride 108 H Carbon Dioxide 23 BUN 48 H Creatinine 3.27 H Calcium 8.5 Total Bilirubin 1.0 AST 17 ALT 16 Albumin 3.2 L PG Care Time/CCT Total # of Minutes Spent Total Time Spent with Patient: Total time spent is greater than 50% in coordination of care (as documented) at patient's floor/unit and/or counseling patient: Coding Level of Care Code 39678 Subseq Hosp Care Lvl 3 Diagnoses Acute on chronic renal failure N17.9; N18.9 Acute renal failure type: unspecified Renal transplant recipient Z94.0 Anemia D64.9 (1) Acute on chronic renal failure Acute renal failure type: unspecified
[2021-12-27] MEDS ORDERED: FEBUXOSTAT 40 MG TABLET PO SCH (09:00)
[2021-12-27 09:43] LABS: Albumin Globulin Ratio 1.4 (0.9-2); Albumin Level 3.2 gm/dl (3.4-5.0); BUN Creatinine Ratio 14.7 (10-20); Calcium 8.5 mg/dl (8.5-10.1); Creatinine Clr Calc Pharmacy 32.2 ml/min; Est GFR (African American) 22.5 ml/min; Est GFR (Non-African American) 19.4 ml/min; Globulin 2.3 gm/dl (2.5-4.0); Magnesium 2.1 mg/dl (1.7-2.4); Potassium 4.9 mmol/L (3.5-5.1); Total Protein 5.5 gm/dl (6.0-8.3)
[2021-12-27 10:17] LABS: Adenovirus F 40/41 PCR Not Detected (NotDetected); Astrovirus PCR Not Detected (NotDetected); Campylobacter PCR Not Detected (NotDetected); Clostridium diff Toxin A/B PCR Not Detected (NotDetected); Cryptosporidium PCR Not Detected (NotDetected); Cyclospora cayetanensis PCR Not Detected (NotDetected); Entamoeba histolytica PCR Not Detected (NotDetected); Enteroaggregative E.coli(EAEC) Not Detected (NotDetected); Enteropathogenic E.coli (EPEC) Not Detected (NotDetected); Enterotoxigenic E.coli (ETEC) Not Detected (NotDetected); Giardia lamblia PCR Not Detected (NotDetected); Norovirus GI/GII PCR Not Detected (NotDetected); Plesiomonas shigelloides PCR Not Detected (NotDetected); Rotavirus A PCR Not Detected (NotDetected); Salmonella PCR Not Detected (NotDetected); Sapovirus PCR Not Detected (NotDetected); Shiga-like Toxin E.coli (STEC) Not Detected (NotDetected); Shigella/Enteroinvasive E.coli Not Detected (NotDetected); Vibrio cholerae PCR Not Detected (NotDetected); Vibrio species PCR Not Detected (NotDetected); Yersinia enterocolitica PCR Not Detected (NotDetected)
[2021-12-27] MEDS: LOSARTAN POTASSIUM 25 MG TAB PO SCH (11:56)
--- NOTE | 2021-12-27 16:20 | Hospitalist Progress Note ---
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 Blood cultures now growing Enterococcus faecalis in both sets based on [employer] results Urine culture w/ mixed cynthia, likely contaminated He had recent hospitalization at [facility] several weeks ago for severe retroperitoneal hemorrhage requiring transfusion and reversal of anticoagulation. He did have a Bond catheter at that time. He reports having urinary urgency and frequency ever since that time. Most likely this is the source of infection. Fevers have resolved, tachycardia resolved, blood pressures remained stable. -continue IV ampicillin (have since removed PCN as an allergy) -Continue to follow blood cultures for final identification and sensitivities -Repeat blood cultures remain NGTD -Check echocardiogram given murmur on examination and gram-positive bacteremia. He has no other prostheses, pacemaker, etc.-performed but read is pending -Consult infectious disease given complex case of recent retroperitoneal bleed with persistent hematoma, recurrent infections, renal transplant on immunosuppression-suspect he will require at least 2 weeks IV abx -ok to restart home CellCept after held for one day -ok to continue cyclosporine and prednisone -follow CBC, BMP, Mag in AM (2) Diarrhea: Plan: has returned since his appetite improved and eating more-2 loose stools so far today, nonbloody -Stool BioFire negative Fecal occult negative CT abdomen/pelvis with stable size of large RP hematoma, evidence of bladder outlet obstruction with thickened bladder wall, no colitis or diverticulitis (3) Acute on chronic renal failure: Plan: Creatinine up slightly from more recent baseline at 3.1 on arrival, with mild metabolic acidosis and hyponatremia Mysql Developer now 3.2 Good urine output Suspect mild dehydration from fevers and poor p.o. 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 3 times daily after discussion with patient and he is agreeable (4) History of renal transplant: Plan: continue CellCept, prednisone, and cyclosporine With creatinine around 2.7 baseline which has progressed since transplant Follows at [facility] -Recommend follow-up with his transplant team since he had his retroperitoneal hematoma and there is suspicion that the source of this is his nonfunctioning left kidney. ALso with a possible mass on left kidney---needs to evaluation for possible nephrectomy -will consult Urology here for further opinion (5) Hypertension: Plan: Blood pressures are controlled held home losartan for acute kidney injury but restarted now (6) Obstructive sleep apnea: Plan: Continue CPAP (7) Peripheral neuropathy: Plan: Continue duloxetine 60 mg daily Decreased gabapentin 600 Mg p.o. 3 times daily due to renal function-patient is agreeable to this as the increased dose of duloxetine has improved his neuropathy (8) Anemia: Plan: Admission hgb 9.2, however his hemoglobin is improved since the retroperitoneal hematoma which required multiple units of PRBCs transfused several weeks ago Hemoglobin 8.3 and stable from yesterday Follow CBC in the morning Fecal occult is negative CT abdomen/pelvis with stable RP hematoma Give Epogen 10,000 units x 1 here as per nephrology (9) BPH (benign prostatic hyperplasia): Plan: Making urine without difficulty emptying Continue home tamsulosin (10) DVT (deep venous thrombosis): Plan: 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 which has been held since his retroperitoneal hemorrhage He has now had 2 retroperitoneal hemorrhages Continue to hold Coumadin Could consider IVC filter-asked him to discuss with his transplant team when he sees them in the near future to discuss the most recent retroperitoneal hematoma in light of possible need for left nephrectomy as above (11) GERD (gastroesophageal reflux disease): Plan: Continue Protonix Plan Disposition-continued stay on telemetry Admission and Anticipated Discharge Date Admission Date: December 27, 2021 Subjective Pt had 2 loose stools today, no abd pain over the usual in LLQ since his RP bleed. Denies fevers/chills. No CP, SOB. No lightheadedness with walking around the room. Discussed his care with Dr. Thornton of Nephrology Tele with NSR, rates 60-70s Review of Systems Review of Systems: All systems reviewed & are unremarkable except as noted in HPI & below Physical Exam Constitutional: WD/WN, vitals as above Eyes: + anicteric sclerae Neck: trachea midline, no thyromegaly Respiratory: normal respiratory effort, lungs clear to auscultation Cardiovascular: Rate/Rhythm: regular rate and regular rhythm Heart Sounds: + murmur (2/6 systolic murmur at the apex) Chest (Breasts): Chest: normal inspection of chest Gastrointestinal (Abdomen): Inspection/Auscultation: normal bowel sounds; abdomen not distended Percussion/Palpation: + abdomen tender (Mild in the left lower quadrant without guarding or rebound) and abdomen soft Musculoskeletal: Extremities: no cyanosis and no clubbing Skin: + rash (Chronic venous stasis changes of legs) Neurologic: moves all extremities and awake; no focal motor deficits Psychiatric: A+Ox3, euthymic affect Results & Data Results & Data ([facility]) Vital Signs (Past 12 Hours) Vital Signs Temp Pulse Pulse Resp BP Pulse Ox O2 Del Method 12/27/21 15:54 69 12/27/21 15:34 36.8 C 68 20 142/86 H 97 Room Air 12/27/21 12:00 36.6 C 72 16 170/69 H 99 Room Air 12/27/21 10:06 65 12/27/21 07:50 36.4 C L 66 16 160/90 H 100 Room Air Laboratory Results 12/27/21 12/27/21 12/27/21 Range/Units 08:49 07:27 07:27 WBC 5.15 (4.8-10.8) K/ul RBC 2.89 L (4.63-6.08) M/uL Hgb 8.3 L (14.0-18.0) g/dl Hct 27.2 L (40.1-51.0) % MCV 94.1 (80.0-100.0) fL MCH 28.7 (25.0-34.0) pg MCHC 30.5 L (32.0-36.0) g/dL RDW Std Deviation 51.0 H (36.4-46.3) fL RDW Coeff of Theresa 14.7 H (11.5-14.5) % Plt Count 300 (130-400) K/uL MPV 9.9 (9.4-12.4) fL Immature Gran % (Auto) 1.2 % Neut % (Auto) 65.0 % Lymph % (Auto) 5.4 % Forrest % (Auto) 22.7 % Eos % (Auto) 4.7 % Baso % (Auto) 1.0 % Neut # (Auto) 3.35 (1.4-6.5) K/uL Lymph # (Auto) 0.28 L (1.2-3.4) K/uL Forrest # (Auto) 1.17 H (0.24-0.82) K/uL Eos # (Auto) 0.24 (0-0.50) K/uL Baso # (Auto) 0.05 (0-0.2) K/uL Immature Gran # (Auto) 0.06 H (0.00-0.02) K/uL Sodium 138 (136-145) mmol/L Potassium 4.9 (3.5-5.1) mmol/L Chloride 108 H (98-107) mmol/L Carbon Dioxide 23 (21-32) mmol/L Anion Gap 7 (3-11) BUN 48 H (6-23) mg/dl Creatinine 3.27 H (0.6-1.4) mg/dl Est Cr Clr Drug Dosing 32.2 ml/min Est GFR ( Amer) 22.5 ml/min Est GFR (Non-Af Amer) 19.4 ml/min BUN/Creatinine Ratio 14.7 (10-20) Glucose 97 (70-99(Fasting)) mg/dl Calcium 8.5 (8.5-10.1) mg/dl Magnesium 2.1 (1.7-2.4) mg/dl Total Bilirubin 1.0 (0.2-1.0) mg/dl AST 17 (13-39) U/L ALT 16 (7-52) U/L Alkaline Phosphatase 75 (34-104) U/L Total Protein 5.5 L (6.0-8.3) gm/dl Albumin 3.2 L (3.4-5.0) gm/dl Globulin 2.3 L (2.5-4.0) gm/dl Albumin/Globulin Ratio 1.4 (0.9-2) Stl C. cayetanensis PCR Not Detected (NotDetected) Stool Rotavirus A PCR Not Detected (NotDetected) Stl Adenov F 40/41 PCR Not Detected (NotDetected) Stool Astrovirus (PCR) Not Detected (NotDetected) Stool Campylobacter PCR Not Detected (NotDetected) Stl C. diff Tox A/B PCR Not Detected (NotDetected) Stool Cryptosporidium PCR Not Detected (NotDetected) Stl E.coli Shiga Tox PCR Not Detected (NotDetected) Stl Enterotoxigenic E PCR Not Detected (NotDetected) Stool EPEC (PCR) Not Detected (NotDetected) Stool EAEC (PCR) Not Detected (NotDetected) Stl E. histolytica PCR Not Detected (NotDetected) Stool Giardia Lamblia PCR Not Detected (NotDetected) Stool Salmonella PCR Not Detected (NotDetected) Stool Sapovirus (PCR) Not Detected (NotDetected) Stl P. shigelloides PCR Not Detected (NotDetected) Stl Shigella/EIEC PCR Not Detected (NotDetected) St Y.enterocolitica PCR Not Detected (NotDetected) Stool Vibrio (PCR) Not Detected (NotDetected) Stl Vibrio cholerae PCR Not Detected (NotDetected) Stl Norovirus GI/GII PCR Not Detected (NotDetected) 12/26/21 Range/Units 17:00 WBC (4.8-10.8) K/ul RBC (4.63-6.08) M/uL Hgb (14.0-18.0) g/dl Hct (40.1-51.0) % MCV (80.0-100.0) fL MCH (25.0-34.0) pg MCHC (32.0-36.0) g/dL RDW Std Deviation (36.4-46.3) fL RDW Coeff of Theresa (11.5-14.5) % Plt Count (130-400) K/uL MPV (9.4-12.4) fL Immature Gran % (Auto) % Neut % (Auto) % Lymph % (Auto) % Forrest % (Auto) % Eos % (Auto) % Baso % (Auto) % Neut # (Auto) (1.4-6.5) K/uL Lymph # (Auto) (1.2-3.4) K/uL Forrest # (Auto) (0.24-0.82) K/uL Eos # (Auto) (0-0.50) K/uL Baso # (Auto) (0-0.2) K/uL Immature Gran # (Auto) (0.00-0.02) K/uL Sodium 136 (136-145) mmol/L Potassium 4.9 (3.5-5.1) mmol/L Chloride 106 (98-107) mmol/L Carbon Dioxide 22 (21-32) mmol/L Anion Gap 8 (3-11) BUN 47 H (6-23) mg/dl Creatinine 3.22 H (0.6-1.4) mg/dl Est Cr Clr Drug Dosing 32.7 ml/min Est GFR ( Amer) 23.0 ml/min Est GFR (Non-Af Amer) 19.8 ml/min BUN/Creatinine Ratio 14.6 (10-20) Glucose 120 H (70-99(Fasting)) mg/dl Calcium 9.1 (8.5-10.1) mg/dl Magnesium (1.7-2.4) mg/dl Total Bilirubin (0.2-1.0) mg/dl AST (13-39) U/L ALT (7-52) U/L Alkaline Phosphatase (34-104) U/L Total Protein (6.0-8.3) gm/dl Albumin (3.4-5.0) gm/dl Globulin (2.5-4.0) gm/dl Albumin/Globulin Ratio (0.9-2) Stl C. cayetanensis PCR (NotDetected) Stool Rotavirus A PCR (NotDetected) Stl Adenov F 40/41 PCR (NotDetected) Stool Astrovirus (PCR) (NotDetected) Stool Campylobacter PCR (NotDetected) Stl C. diff Tox A/B PCR (NotDetected) Stool Cryptosporidium PCR (NotDetected) Stl E.coli Shiga Tox PCR (NotDetected) Stl Enterotoxigenic E PCR (NotDetected) Stool EPEC (PCR) (NotDetected) Stool EAEC (PCR) (NotDetected) Stl E. histolytica PCR (NotDetected) Stool Giardia Lamblia PCR (NotDetected) Stool Salmonella PCR (NotDetected) Stool Sapovirus (PCR) (NotDetected) Stl P. shigelloides PCR (NotDetected) Stl Shigella/EIEC PCR (NotDetected) St Y.enterocolitica PCR (NotDetected) Stool Vibrio (PCR) (NotDetected) Stl Vibrio cholerae PCR (NotDetected) Stl Norovirus GI/GII PCR (NotDetected) PG Care Time/CCT Total # of Minutes Spent Total Time Spent with Patient: Total time spent is greater than 50% in coordination of care (as documented) at patient's floor/unit and/or counseling patient: Coding Level of Care Code 06329 Subseq Hosp Care Lvl 3 Diagnoses Septicemia A41.9 Diarrhea R19.7 Acute on chronic renal failure N17.9; N18.9 Acute renal failure type: unspecified History of renal transplant Z94.0 Hypertension I10 Hypertension type: essential hypertension Obstructive sleep apnea G47.33 Peripheral neuropathy G62.9 Anemia D64.9 BPH (benign prostatic hyperplasia) N40.1; R39.11 Lower urinary tract symptom presence: symptoms present Lower urinary tract symptom detail: urinary hesitancy DVT (deep venous thrombosis) I82.409 DVT location: lower extremity Affected thrombotic vein of extremity: unspecified vein of extremity Chronicity: unspecified Laterality: unspecified laterality GERD (gastroesophageal reflux disease) K21.9 (1) Acute on chronic renal failure Acute renal failure type: unspecified (2) Hypertension Hypertension type: essential hypertension Qualified Code(s): I10 - Essential (primary) hypertension (3) BPH (benign prostatic hyperplasia) Lower urinary tract symptom presence: symptoms present Lower urinary tract symptom detail: urinary hesitancy Qualified Code(s): N40.1 - Benign prostatic hyperplasia with lower urinary tract symptoms; R39.11 - Hesitancy of micturition (4) DVT (deep venous thrombosis) DVT location: lower extremity Affected thrombotic vein of extremity: unspecified vein of extremity Chronicity: unspecified Laterality: unspecified laterality Qualified Code(s): I82.409 - Acute embolism and thrombosis of unspecified deep veins of unspecified lower extremity
[2021-12-27] MEDS: SACCHAROMYCES BOULARDII 250 MG CAP PO SCH (16:38)
[2021-12-27] MEDS: TAMSULOSIN HCL 0.4 MG CAP PO SCH (20:30)
[2021-12-27] MEDS: MYCOPHENOLATE MOFETIL 250 MG CAP PO SCH (20:30)
--- NOTE | 2021-12-27 22:09 | XCELERA ---
[id number]
[2021-12-28] MEDS: AMPICILLIN 2,000 MG in SODIUM CHLOR 0.9% AD-VAN 100 ML IV SCH ×2 (02:18→08:09)
[2021-12-28 07:03] LABS: Hematocrit (blood only) 27.2 % (40.1-51.0); Hemoglobin 8.4 g/dl (14.0-18.0); Mean Corpuscular Hemoglobin 28.6 pg (25.0-34.0); Mean Corpuscular Hgb Conc 30.9 g/dL (32.0-36.0); Mean Corpuscular Volume 92.5 fL (80.0-100.0); Mean Platelet Volume 10.2 fL (9.4-12.4); Platelet Count 316 K/uL (130-400); RDW Coefficient of Variation 14.8 % (11.5-14.5); Red Blood Count 2.94 M/uL (4.63-6.08); White Blood Count 5.71 K/ul (4.8-10.8)
[2021-12-28 07:48] LABS: BUN Creatinine Ratio 15.5 (10-20); Calcium 8.6 mg/dl (8.5-10.1); Creatinine Clr Calc Pharmacy 35.4 ml/min; Est GFR (African American) 25.4 ml/min; Est GFR (Non-African American) 21.9 ml/min; Potassium 4.6 mmol/L (3.5-5.1)
[2021-12-28] MEDS: MYCOPHENOLATE MOFETIL 250 MG CAP PO SCH ×2 (08:03→21:24)
[2021-12-28] MEDS: FERROUS SULFATE 325 MG TAB PO SCH ×2 (08:04→16:42)
[2021-12-28] MEDS: GABAPENTIN 600 MG TAB PO SCH ×3 (08:04→21:23)
[2021-12-28] MEDS: LOSARTAN POTASSIUM 25 MG TAB PO SCH (08:05)
[2021-12-28] MEDS: predniSONE 5 MG TAB PO SCH (08:05)
[2021-12-28] MEDS: DULoxetine HCL 60 MG CAP PO SCH (08:05)
[2021-12-28] MEDS: SACCHAROMYCES BOULARDII 250 MG CAP PO SCH (08:05)
[2021-12-28] MEDS: PANTOprazole 40 MG TAB PO SCH (08:05)
[2021-12-28] MEDS: FEBUXOSTAT 40 MG TABLET PO SCH (08:05)
[2021-12-28] MEDS: cycloSPORINE 100 MG CAP PO SCH ×2 (08:06→21:22)
[2021-12-28] MEDS: cycloSPORINE (SANDIMMUNE) 25 MG CAP PO SCH ×2 (08:06→21:22)
[2021-12-28] MEDS: MAGNESIUM OXIDE 400 MG TAB PO SCH ×2 (08:08→21:28)
--- NOTE | 2021-12-28 08:39 | Nephrology Progress Note ---
Date of Service December 28, 2021 Assessment & Plan (1) Renal transplant recipient: Plan: * Received LURT from brother in law at [facility] in [place], [place] 2019 * Baseline Cr 3.0 - 3.5. Kidney function is stable at this time * Immunosuppressive regimen: Tacrolimus 150 mg po BID, MMF 1000 mg po BID and Prednisone 5 mg po daily * Mycophenolate was restarted yesterday, CSA level is pending (2) Hypertension: Plan: * Losartan restarted yesterday. Kidney function has remained stable, electrolyte balance is acceptable * Will increase Losartan to 50 mg po q AM (3) Anemia: Plan: * Large L retroperitoneal hematoma surrounding L [place] kidney * This is patient's 2nd retroperitoneal bleed. Question whether it is associated w/ abnormality of L [place] kidney. Consider Urology consultation. Patient likely will not be a candidate for surgical intervention until infection has cleared and hematoma has stabilized. If intervention is required, he may need this performed at tertiary center ([facility]) (4) Septicemia: Plan: * Initial blood culture 12/25/21 + for Enterococcus * Remains on IV Ampicillin * Follow up blood culture 12/26/21 is NGTD. Patient is afebrile and WBC # is within normal limits * 12/27/32 Echocardiogram: LVEF 55 - 60%, no vegetation * Patient will likely need long course of IV antibiotic therapy - await ID recommendations Admission and Anticipated Discharge Date Admission Date: December 27, 2021 Subjective Mr. Prado was evaluated in his hospital room this morning. He denied fever or flank discomfort and noted that he is tolerating his diet Review of Systems Constitutional: no fever Eyes: no problem reported Ear, Nose, Mouth, Throat: no problem reported Respiratory: no cough and no dyspnea Cardiovascular: no chest pain Gastrointestinal: no abdominal pain and no nausea Genitourinary: no dysuria, no urinary frequency or no problem reported Physical Exam Constitutional: well developed; no acute distress Eyes: + anicteric sclerae; no corneal abnormality ENMT: Mouth: no oral mucosal abnormality Neck: normal visual inspection and trachea midline Respiratory: normal respiratory effort Auscultation: lungs clear to auscultation bilaterally Cardiovascular: Rate/Rhythm: regular rate Heart Sounds: normal S1 and normal S2 Extremities: + pedal edema, + varicosities and + AV fistula (LUE w ith thrill and bruit) Musculoskeletal: Extremities: no cyanosis and no clubbing Skin: normal turgor; no lesions Neurologic: Motor/Sensory: no tremor and no asterixis Psychiatric: Orientation: alert and oriented x 3 Results & Data ([facility]) Vital Signs (Past 12 Hours) Vital Signs Temp Pulse Pulse Resp BP Pulse Ox O2 Del Method 12/28/21 07:23 36.6 C 68 16 150/87 H 97 Room Air 12/28/21 07:20 65 12/28/21 03:14 65 12/28/21 02:53 36.6 C 66 18 148/84 H 98 Room Air 12/27/21 23:25 36.7 C 63 18 158/91 H 97 Room Air Laboratory Results Laboratory Tests 12/27/21 12/28/21 12/28/21 07:27 05:53 05:53 WBC 5.71 Hgb 8.4 L Hct 27.2 L Plt Count 316 Sodium 139 Potassium 4.6 Chloride 110 H Carbon Dioxide 22 BUN 46 H Creatinine 2.96 H D Est GFR (Non-Af Amer) 21.9 Glucose 91 Calcium 8.6 Albumin 3.2 L Diagnostic Findings 12/26/21 blood culture: NGTD x 2 12/27/32 Echocardiogram: LVEF 55 - 60%, no vegetation PG Care Time/CCT Total # of Minutes Spent Total Time Spent with Patient: Total time spent is greater than 50% in coordination of care (as documented) at patient's floor/unit and/or counseling patient: Coding Level of Care Code 86449 Subseq Hosp Care Lvl 3 Diagnoses Renal transplant recipient Z94.0 Hypertension I10 Hypertension type: essential hypertension Anemia D64.9 Septicemia A41.9 (1) Hypertension Hypertension type: essential hypertension Qualified Code(s): I10 - Essential (primary) hypertension
[2021-12-28] MEDS ORDERED: LOSARTAN POTASSIUM 25 MG TAB PO ONE (09:00)
--- NOTE | 2021-12-28 10:20 | Urology Consultation ---
Date of Consultation December 28, 2021 Assessment & Plan (1) End stage renal disease: (2) Retroperitoneal hematoma: (3) Renal mass: Plan Retroperitoneal hematoma on the left, cyst/mass of the left kidneygradually enlarging over the past 3 yearspossible source of the bleeding? Lengthy discussion today and review of his old records I have explained that it is rare for kidneys to bleed spontaneously without some underlying pathology and simple cysts typically are not that pathology. This leads to increased suspicion that the lesion in the left kidney is a solid mass. His situation is somewhat unique because of his transplant, I do not definitively think he requires reimaging as contrast would be necessary and would pose significant potential risks to his transplanted kidney. I have discussed that it would be appropriate to consider left radical nephrectomy based on his current imaging and presentation, however, that intervention should not occur immediately. He is currently being treated for septicemia and needs to complete that treatment prior to any further surgery. He also could benefit from additional time for resolution and improvement of his residual blood from the left retroperitoneum. He is hoping to contact and be evaluated by his transplant team in the near future. He may prefer to have surgical intervention performed there. No immediate intervention planned during this hospitalization. No current evidence of superinfection of his hematoma. Separately, was due to see our service this week for a borderline elevated PSA - this visit can and should be delayed (PSA between 4-5). History of Present Illness Attending Physician: Aniya Zafar MD History of Present Illness 61-year-old male status post living donor kidney transplant He presented to the [place] [facility] on December 02 with a left retroperitoneal hematomapresumed to originate from the kidney. Transferred to [place] at that time we received numerous units of blood. Bleeding subsequently stabilized and he has been gradually recovering since that time He is currently admitted after feeling poorly earlier this week His cultures from the urine are not showing any pathogens but his blood cultures are positive for Enterococcus He does not as of now show any signs of superinfection of the residual hematoma I have reviewed CT scans of the abdomenthere are numerous The most recent was during this hospitalization but has had at least 3 others in November and other scans dating back to 2019 All of these are noncontrast His most recent scans show a lesion/mass that has been gradually enlarging since 2019 This is still relatively small but I suspect it has a high probability of being the underlying source of his bleeding This was initially interpreted by radiology as possible cyst, however there was never a contrast study to compare and determine for the true nature He follows closely with his transplant team in [place], he would like to discuss his care with them before considering any intervention for the kidneyhoping to have an appointment with them in the near future He has numerous other significant risk factors including chronic anticoagulation, obesity, history of DVT Kidney transplant is functioning although he still has some significant renal dysfunction Allergies Allergy/AdvReac Type Severity Reaction Status Date / Time allopurinol Allergy Unknown Rash Verified 12/25/21 14:10 hydromorphone [From Dilaudid] AdvReac Severe confusion Verified 12/25/21 14:10 Home Medications Medication Instructions Recorded Confirmed Type aspirin 81 mg tablet,delayed 81 mg PO QAM 04/24/19 12/25/21 History release (Adult Low Dose Aspirin) cholecalciferol (vitamin D3) 25 1,000 units PO QAM 04/24/19 12/25/21 History mcg (1,000 unit) capsule docusate sodium 100 mg capsule 100 mg PO BID PRN Constipation 04/24/19 12/25/21 History (Colace) multivitamin (Daily Multi-Vitamin) 1 tab PO QAM 04/24/19 12/25/21 History tamsulosin 0.4 mg capsule (Flomax) 0.4 mg PO HS 04/24/19 12/25/21 History prednisone 5 mg tablet 5 mg PO QAM 05/29/19 12/25/21 History mycophenolate mofetil 250 mg 1,000 mg PO BID 02/20/20 12/25/21 History capsule (CellCept) febuxostat 80 mg tablet (Uloric) 80 mg PO QAM 03/06/20 12/25/21 History albuterol sulfate 90 mcg/actuation 2 inha inhalation Q6H PRN 04/06/21 12/25/21 Rx aerosol inhaler shortness of breath or wheezing #1 inhaler omeprazole 40 mg capsule,delayed 40 mg PO QAM #90 caps 04/29/21 12/25/21 Rx release cyclosporine 100 mg capsule 150 mg PO BID 06/16/21 12/25/21 History magnesium oxide 800 mg PO BID 06/16/21 12/25/21 History ferrous sulfate 325 mg (65 mg 325 mg PO BID 08/05/21 12/25/21 History iron) tablet (iron) gabapentin 300 mg capsule 600 mg PO .AM & AFTERNOON 08/22/21 12/25/21 History (Neurontin) acetaminophen 500 mg tablet 1,000 mg PO QID PRN Pain 08/24/21 12/25/21 History (Tylenol Extra Strength) duloxetine 60 mg capsule,delayed 60 mg PO QAM #90 caps 11/13/21 12/25/21 Rx release gabapentin 300 mg capsule 900 mg PO HS 11/17/21 12/25/21 History losartan 50 mg tablet 50 mg PO DAILY #90 tabs 12/15/21 12/25/21 Rx furosemide 40 mg tablet (Lasix) 60 mg PO QAM PRN Edema 12/25/21 12/25/21 History Patient History Medical History AV fistula LEFT WRIST> NO DIALYSIS CURRENTLY> FISTULA STILL WORKS PER PT DVT (deep venous thrombosis) Right- 04/2019 following transplant > Coumadin S/P LEFT LEG SURGERY (EXCISION OF MELANOMA LEFT LEG) 10 YEARS AGO. End stage renal disease follows Dr. Aguilera and transplant team at [facility] Family history of blood clots Gout History of basal cell carcinoma History of malignant melanoma of skin Hypertension Influenza A Nephrolithiasis Pneumonia due to COVID-19 virus Rectus sheath hematoma Sarcoidosis Umbilical hernia Venous insufficiency Venous stasis dermatitis Surgical History H/O colonoscopy History of cardiac cath 01/2018 > [facility] > NO STENTS History of melanoma excision left calf History of tonsillectomy History of tooth extraction Kidney transplanted APR 04, 2019 > [facility] > right side Family History Mother Stroke Heart disease Grandmother Cancer Lung disease Denies family history of Ovarian cancer Prostate cancer Colorectal cancer Social History Smoking Status: Never smoker Second Hand Exposure: No; Hx Alcohol Use: Yes Hx Substance Use: No Preferred Language: Telugu Communication Ability: Effective Pearl Restorer Required: No Beliefs That Will Affect Care: None marital status: Current Living Situation: Spouse Current Living Situation Comment: living with . current occupational status: employed current occupation: [employer] How many Children do You have: 1 Feels Safe at Home: Yes caffeine: Yes Dental Care, Regularly: Yes Seatbelt Use: always Sunscreen Use: Yes Assistive Devices: None Review of Systems Constitutional: + fatigue Eyes: no worsening vision Ear, Nose, Mouth, Throat: no facial pain and no pain with swallowing Respiratory: no cough and no dyspnea Cardiovascular: no chest pain and no palpitations Gastrointestinal: no abdominal pain, no nausea and no vomiting Musculoskeletal: + back pain Integumentary: no rash and no urticaria Neurologic: no gait abnormality and no unsteadiness Psychiatric: no behavioral changes and no depression Endocrine: no fatigue Physical Exam Constitutional: well developed and well nourished Neck: neck nontender Respiratory: normal respiratory effort; no respiratory distress and does not use accessory muscles Cardiovascular: Rate/Rhythm: regular rate Vessels: radial pulses present Extremities: no edema Gastrointestinal (Abdomen): Inspection/Auscultation: abdomen normal to inspection Percussion/Palpation: abdomen soft; abdomen nontender and no guarding Musculoskeletal: Head/Neck/Chest: normocephalic and head atraumatic Extremities: extremities normal to inspection Skin: no rashes and no lesions Trauma: no evidence of skin trauma Neurologic: awake; not obtunded Speech / Cognition: normal speech Motor/Sensory: no tremor Psychiatric: Orientation: alert and oriented x 3 Genitourinary: no CVA tenderness Lymphatic: no lymphadenopathy Results & Data ([facility]) Vital Signs (Past 12 Hours) Vital Signs Temp Pulse Pulse Resp BP Pulse Ox O2 Del Method 12/28/21 07:23 36.6 C 68 16 150/87 H 97 Room Air 12/28/21 07:20 65 12/28/21 03:14 65 12/28/21 02:53 36.6 C 66 18 148/84 H 98 Room Air 12/27/21 23:25 36.7 C 63 18 158/91 H 97 Room Air PG Care Time/CCT Total # of Minutes Spent Total Time Spent with Patient: Total time spent is greater than 50% in coordination of care (as documented) at patient's floor/unit and/or counseling patient: Coding Level of Care Code 71035 Inpt Consult Level 5 Diagnoses End stage renal disease N18.6 Retroperitoneal hematoma K66.1 Renal mass N28.89
--- NOTE | 2021-12-28 13:05 | Hospitalist Progress Note ---
Date of Service December 28, 2021 Assessment & Plan (1) Septicemia: Plan: This patient is a 61yo male with a history of ESRD secondary to FSGS (s/p right living donor kidney, 03/2019), history of DVT/PE (not currently on anticoagulation due to recent retroperitoneal hemorrhage), HTN, and HLD presents with a four-day history of fever, diarrhea, urinary urgency and frequency, abdominal pain, and poor appetite. Blood cultures now growing Enterococcus faecalis in both sets based on bio fire results and now on actual cultures, not VRE Urine culture w/ mixed cynthia, likely contaminated Repeat BCxs from 12/26 no growth to date at almost 48 hr genny He had recent hospitalization at [facility] several weeks ago for severe retroperitoneal hemorrhage requiring transfusion and reversal of anticoagulation. He did have a Bond catheter at that time. He reports having urinary urgency and frequency ever since that time. Most likely this is the source of infection. Fevers have resolved, tachycardia resolved, blood pressures remained stable. ECHO no valvular vegetation He has no other prostheses, pacemaker, etc. -continue IV ampicillin (have since removed PCN as an allergy) -Continue to follow repeat blood cultures -Consult infectious disease given complex case of recent retroperitoneal bleed with persistent hematoma, recurrent infections, renal transplant on immunosuppression-suspect he will require at least 2 weeks IV abx, perhaps longer -ok to continue Cellcept, cyclosporine and prednisone -follow CBC, BMP, Mag in AM -will wait to place line until repeat BCxs remain negative for over 48 hrs, but an US-guided PIV would be fine as it can stay in for 4 weeks and would want to salvage vasculature due to possibility of needing repeat HD in future (2) Diarrhea: Plan: nonbloody, seems improved now -Stool BioFire negative Fecal occult negative CT abdomen/pelvis with stable size of large RP hematoma, evidence of bladder outlet obstruction with thickened bladder wall, no colitis or diverticulitis (3) Acute on chronic renal failure: Plan: Creatinine up slightly from more recent baseline at 3.2, with mild metabolic acidosis and hyponatremia Grading Supervisor now down to 2.9 Good urine output Suspect mild dehydration from fevers and poor p.o. 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 3 times daily after discussion with patient and he is agreeable (4) History of renal transplant: Plan: continue CellCept, prednisone, and cyclosporine With creatinine around 2.7 baseline which has progressed since transplant Follows at [facility] -Recommend follow-up with his transplant team since he had his retroperitoneal hematoma and there is suspicion that the source of this is his nonfunctioning left kidney. ALso with a possible mass on left kidney---needs to evaluation for possible nephrectomy -will consult Urology here for further opinion--> recommends left nephrectomy for mass that could be malignancy--> recommends checking with his transplant team to see if they prefer nephrectomy be done there or else could do here. No nephrectomy until infection cleared and RP hematoma further improved (5) Hypertension: Plan: Blood pressures are controlled held home losartan for acute kidney injury but restarted now (6) Obstructive sleep apnea: Plan: Continue CPAP (7) Peripheral neuropathy: Plan: Continue duloxetine 60 mg daily Decreased gabapentin 600 Mg p.o. 3 times daily due to renal function-patient is agreeable to this as the increased dose of duloxetine has improved his neuropathy (8) Anemia: Plan: Admission hgb 9.2, however his hemoglobin is improved since the retroperitoneal hematoma which required multiple units of PRBCs transfused several weeks ago Hemoglobin 8.4 and stable since admission Follow CBC in the morning Fecal occult is negative CT abdomen/pelvis with stable RP hematoma Gave Epogen 10,000 units x 1 here as per nephrology (9) BPH (benign prostatic hyperplasia): Plan: Making urine without difficulty emptying Continue home tamsulosin (10) DVT (deep venous thrombosis): Plan: 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 Hopeful for discharge to home on IV abx after ID consult on Wednesday. WIll need Case Management involvement Admission and Anticipated Discharge Date Admission Date: December 27, 2021 Subjective Pt feeling well, no complaints. Ambulated around halls a few times today. Denies SOB, CP, lightheadedness. No worsening of abd pain from previous. Tele with NSR, rates 60-70s Review of Systems Review of Systems: All systems reviewed & are unremarkable except as noted in HPI & below Physical Exam Constitutional: WD/WN, vitals as above Eyes: + anicteric sclerae Neck: trachea midline, no thyromegaly Respiratory: normal respiratory effort, lungs clear to auscultation Cardiovascular: Rate/Rhythm: regular rate and regular rhythm Heart Sounds: + murmur (2/6 systolic murmur at the apex) Chest (Breasts): Chest: normal inspection of chest Gastrointestinal (Abdomen): Inspection/Auscultation: normal bowel sounds; abdomen not distended Percussion/Palpation: + abdomen tender (Mild in the left lower quadrant without guarding or rebound) and abdomen soft Musculoskeletal: Extremities: + extremities abnormal to inspection (Right foot in walking boot), no cyanosis and no clubbing Skin: + rash (Chronic venous stasis changes of legs) Neurologic: moves all extremities and awake; no focal motor deficits Psychiatric: A+Ox3, euthymic affect Results & Data Results & Data ([facility]) Vital Signs (Past 12 Hours) Vital Signs Temp Pulse Pulse Resp BP Pulse Ox O2 Del Method 12/28/21 11:25 36.9 C 75 17 128/76 100 Room Air 12/28/21 07:23 36.6 C 68 16 150/87 H 97 Room Air 12/28/21 07:20 65 12/28/21 03:14 65 12/28/21 02:53 36.6 C 66 18 148/84 H 98 Room Air Laboratory Results 12/28/21 12/28/21 Range/Units 05:53 05:53 WBC 5.71 (4.8-10.8) K/ul RBC 2.94 L (4.63-6.08) M/uL Hgb 8.4 L (14.0-18.0) g/dl Hct 27.2 L (40.1-51.0) % MCV 92.5 (80.0-100.0) fL MCH 28.6 (25.0-34.0) pg MCHC 30.9 L (32.0-36.0) g/dL RDW Std Deviation 50.0 H (36.4-46.3) fL RDW Coeff of Theresa 14.8 H (11.5-14.5) % Plt Count 316 (130-400) K/uL MPV 10.2 (9.4-12.4) fL Sodium 139 (136-145) mmol/L Potassium 4.6 (3.5-5.1) mmol/L Chloride 110 H (98-107) mmol/L Carbon Dioxide 22 (21-32) mmol/L Anion Gap 7 (3-11) BUN 46 H (6-23) mg/dl Creatinine 2.96 H D (0.6-1.4) mg/dl Est Cr Clr Drug Dosing 35.4 ml/min Est GFR ( Amer) 25.4 ml/min Est GFR (Non-Af Amer) 21.9 ml/min BUN/Creatinine Ratio 15.5 (10-20) Glucose 91 (70-99(Fasting)) mg/dl Calcium 8.6 (8.5-10.1) mg/dl PG Care Time/CCT Total # of Minutes Spent Total Time Spent with Patient: Total time spent is greater than 50% in coordination of care (as documented) at patient's floor/unit and/or counseling patient: Coding Level of Care Code 95945 Subseq Hosp Care Lvl 2 Diagnoses Septicemia A41.9 Diarrhea R19.7 Acute on chronic renal failure N17.9; N18.9 Acute renal failure type: unspecified History of renal transplant Z94.0 Hypertension I10 Hypertension type: essential hypertension Obstructive sleep apnea G47.33 Peripheral neuropathy G62.9 Anemia D64.9 BPH (benign prostatic hyperplasia) N40.1; R39.11 Lower urinary tract symptom presence: symptoms present Lower urinary tract symptom detail: urinary hesitancy DVT (deep venous thrombosis) I82.409 DVT location: lower extremity Affected thrombotic vein of extremity: unspecified vein of extremity Chronicity: unspecified Laterality: unspecified laterality GERD (gastroesophageal reflux disease) K21.9 (1) Acute on chronic renal failure Acute renal failure type: unspecified (2) Hypertension Hypertension type: essential hypertension Qualified Code(s): I10 - Essential (primary) hypertension (3) BPH (benign prostatic hyperplasia) Lower urinary tract symptom presence: symptoms present Lower urinary tract symptom detail: urinary hesitancy Qualified Code(s): N40.1 - Benign prostatic hyperplasia with lower urinary tract symptoms; R39.11 - Hesitancy of micturition (4) DVT (deep venous thrombosis) DVT location: lower extremity Affected thrombotic vein of extremity: unspecified vein of extremity Chronicity: unspecified Laterality: unspecified laterality Qualified Code(s): I82.409 - Acute embolism and thrombosis of unspecified deep veins of unspecified lower extremity
[2021-12-28] MEDS: AMPICILLIN 2,000 MG in 0.9 % SODIUM CHLORIDE 100 ML IV SCH ×2 (14:37→21:20)
[2021-12-28] MEDS: TAMSULOSIN HCL 0.4 MG CAP PO SCH (21:25)
[2021-12-29] MEDS: AMPICILLIN 2,000 MG in 0.9 % SODIUM CHLORIDE 100 ML IV SCH ×4 (02:11→20:31)
[2021-12-29 06:47] LABS: Hematocrit (blood only) 27.8 % (40.1-51.0); Hemoglobin 8.7 g/dl (14.0-18.0); Mean Corpuscular Hgb Conc 31.3 g/dL (32.0-36.0); Mean Corpuscular Volume 92.7 fL (80.0-100.0); Platelet Count 335 K/uL (130-400); RDW Coefficient of Variation 14.8 % (11.5-14.5); RDW Standard Deviation 49.3 fL (36.4-46.3); White Blood Count 6.01 K/ul (4.8-10.8)
[2021-12-29 07:16] LABS: BUN Creatinine Ratio 16.7 (10-20); Calcium 8.8 mg/dl (8.5-10.1); Creatinine Clr Calc Pharmacy 38.1 ml/min; Est GFR (African American) 27.7 ml/min; Est GFR (Non-African American) 23.9 ml/min; Potassium 4.6 mmol/L (3.5-5.1)
[2021-12-29] MEDS: FEBUXOSTAT 40 MG TABLET PO SCH (07:56)
[2021-12-29] MEDS: SACCHAROMYCES BOULARDII 250 MG CAP PO SCH (07:57)
[2021-12-29] MEDS: LOSARTAN POTASSIUM 50 MG TAB PO SCH (07:57)
[2021-12-29] MEDS: predniSONE 5 MG TAB PO SCH (07:57)
[2021-12-29] MEDS: FERROUS SULFATE 325 MG TAB PO SCH ×2 (07:58→17:00)
[2021-12-29] MEDS: MYCOPHENOLATE MOFETIL 250 MG CAP PO SCH ×2 (07:58→20:25)
[2021-12-29] MEDS: PANTOprazole 40 MG TAB PO SCH (07:58)
[2021-12-29] MEDS: DULoxetine HCL 60 MG CAP PO SCH (07:58)
[2021-12-29] MEDS: GABAPENTIN 600 MG TAB PO SCH ×3 (07:59→20:25)
[2021-12-29] MEDS: cycloSPORINE (SANDIMMUNE) 25 MG CAP PO SCH ×2 (07:59→20:24)
[2021-12-29] MEDS: cycloSPORINE 100 MG CAP PO SCH ×2 (08:00→20:24)
[2021-12-29] MEDS: MAGNESIUM OXIDE 400 MG TAB PO SCH ×2 (08:09→20:29)
--- NOTE | 2021-12-29 08:20 | Nephrology Progress Note ---
Date of Service December 29, 2021 Assessment & Plan (1) Renal transplant recipient: Plan: * Received LURT from brother in law at [facility] in [place], [place] 2018 * Baseline Cr 3.0 - 3.5. Kidney function is stable at this time * Immunosuppressive regimen: Tacrolimus 150 mg po BID, MMF 1000 mg po BID and Prednisone 5 mg po daily * Continue current immunosuppressive regimen * If discharge is anticipated please have patient follow up w/ Dr. Aguilera in 1 - 2 weeks for ongoing Nephrology care ( ) (2) Hypertension: Plan: * BP is acceptable. Continue Losartan 50 mg po q AM (3) Anemia: Plan: * Large L retroperitoneal hematoma surrounding L [place] kidney * This is patient's 2nd retroperitoneal bleed. It may be associated w/ abnormality of L [place] kidney. Will need follow up with [facility] transplant service. If they allow surgery at local hospital, [facility] Urology (Dr. Lang) can provide service (4) Septicemia: Plan: * Initial blood culture 12/25/21 + for Enterococcus * Remains on IV Ampicillin * Follow up blood culture 12/26/21 is NGTD. Patient is afebrile and WBC # is within normal limits * 12/27/32 Echocardiogram: LVEF 55 - 60%, no vegetation * Patient will likely need R midline catheter and long course of IV antibiotic t herapy - await ID recommendations Admission and Anticipated Discharge Date Admission Date: December 27, 2021 Subjective Mr. Prado was evaluated in his hospital room this morning. He was sitting up on the edge of the bed working on his computer. He denied fever or flank d iscomfort and noted that he is tolerating his diet Review of Systems Constitutional: no fever Eyes: no problem reported Ear, Nose, Mouth, Throat: no problem reported Respiratory: no cough and no dyspnea Cardiovascular: no chest pain Gastrointestinal: no abdominal pain and no nausea Genitourinary: no dysuria, no urinary frequency or no problem reported Musculoskeletal: + neck pain, + joint pain and + stiffness; no back pain and no radicular pain Physical Exam Constitutional: well developed; no acute distress Eyes: + anicteric sclerae; no corneal abnormality ENMT: Mouth: + dry oral mucous membranes; no oral mucosal abnormality Neck: normal visual inspection and trachea midline Respiratory: normal respiratory effort Auscultation: lungs clear to auscultation bilaterally Cardiovascular: Rate/Rhythm: regular rate Heart Sounds: normal S1 and normal S2 Extremities: + pedal edema, + varicosities and + AV fistula (LUE with thrill and bruit) Musculoskeletal: Extremities: no cyanosis and no clubbing Skin: normal turgor; no lesions Neurologic: Motor/Sensory: no tremor and no asterixis Psychiatric: Orientation: alert and oriented x 3 Results & Data ([facility]) Vital Signs (Past 12 Hours) Vital Signs Temp Pulse Pulse Resp BP Pulse Ox O2 Del Method 12/29/21 07:50 62 12/29/21 06:50 36.6 C 64 18 163/97 H 98 Room Air 12/29/21 03:09 36.6 C 58 L 18 147/85 H 98 Room Air 12/28/21 23:57 69 12/28/21 23:26 36.6 C 59 L 18 175/88 H 98 Room Air Laboratory Results Laboratory Tests 12/29/21 12/29/21 06:16 06:16 WBC 6.01 Hgb 8.7 L Hct 27.8 L Plt Count 335 Sodium 137 Potassium 4.6 Chloride 107 Carbon Dioxide 21 BUN 46 H Creatinine 2.76 H Calcium 8.8 Diagnostic Findings 12/26/21 blood culture: NGTD x 2 12/27/32 Echocardiogram: LVEF 55 - 60%, no vegetation PG Care Time/CCT Total # of Minutes Spent Total Time Spent with Patient: Total time spent is greater than 50% in coordination of care (as documented) at patient's floor/unit and/or counseling patient: Coding Level of Care Code 96069 Subseq Hosp Care Lvl 3 Diagnoses Renal transplant recipient Z94.0 Hypertension I10 Hypertension type: essential hypertension Anemia D64.9 Septicemia A41.9 (1) Hypertension Hypertension type: essential hypertension Qualified Code(s): I10 - Essential (primary) hypertension
--- NOTE | 2021-12-29 11:40 | Urology Progress Note ---
Date of Service December 29, 2021 Assessment & Plan (1) Renal mass: (2) Retroperitoneal hematoma: Plan 61yo male with a history of ESRD secondary to FSGS (s/p right living donor kidney, 03/2019) and recent large left retroperitoneal hematoma surrounding left [place] kidney admitted with septicemia. - Afebrile, hemodynamically stable. - Labs reviewed - Wbc 6.01, Hgb 8.7, Creatinine 2.76 - Urine culture 12/25 negative. Blood cultures with Enterococcus, repeat BCx prelim no growth x 48 hours. - Continues on IV Ampicillin. ID consulted. - No plan for intervention at this time. - Currently being treated for septicemia and needs to complete that treatment prior to any further surgery. He also could benefit from additional time for resolution and improvement of his residual blood from the left retroperitoneum. - He has also contacted his transplant team and is awaiting their response/recommendations. - He was scheduled to see our service this week for an elevated PSA, we will assist with rescheduling visit. - Urology to follow peripherally. Please contact us with any further questions, concerns, or changes in patient status. Admission and Anticipated Discharge Date Admission Date: December 27, 2021 Subjective Patient examined at bedside this AM. Awake, sitting up in bed on arrival. No acute distress. Denies any abdominal or flank pain. No fevers or chills. Tolerating diet, no nausea/vomiting. Voiding spontaneously. Notes some urinary urgency. Denies hematuria/dysuria. Review of Systems Constitutional: as per Subjective / HPI Gastrointestinal: as per Subjective / HPI Genitourinary: + as per Subjective / HPI Physical Exam Constitutional: no acute distress Respiratory: no respiratory distress and no labored breathing Neurologic: awake Psychiatric: Orientation: alert, oriented x 3 and cooperative Results & Data ([facility]) Vital Signs (Past 12 Hours) Vital Signs Temp Pulse Pulse Resp BP Pulse Ox O2 Del Method 12/29/21 07:50 62 12/29/21 06:50 36.6 C 64 18 163/97 H 98 Room Air 12/29/21 03:09 36.6 C 58 L 18 147/85 H 98 Room Air 12/28/21 23:57 69 PG Care Time/CCT Total # of Minutes Spent Total Time Spent with Patient: Total time spent is greater than 50% in coordination of care (as documented) at patient's floor/unit and/or counseling patient: Coding Level of Care Code 58795 Subseq Hosp Care Lvl 2 Diagnoses Renal mass N28.89 Retroperitoneal hematoma K66.1
--- NOTE | 2021-12-29 13:36 | Hospitalist Progress Note ---
Date of Service December 29, 2021 Assessment & Plan (1) Enterococcal bacteremia: Plan: Currently no sepsis criteria; surveillance cultures negative; continue ampicillin, await ID input; Enterococcus notorious for endocarditis but transthoracic negative; ID may still recommend JOSE (2) Diarrhea: Plan: nonbloody, seems improved now -Stool BioFire negative Fecal occult negative CT abdomen/pelvis with stable size of large RP hematoma, evidence of bladder outlet obstruction with thickened bladder wall, no colitis or diverticulitis -Observe (3) History of renal transplant: Plan: Has chronic allograft dysfunction; appears stable; nephrology followingno change Question of renal mass that I am not finding; urology follow-up (4) CKD (chronic kidney disease) stage 4, GFR 15-29 ml/min: Plan: Due to colic allograft dysfunction (5) Hypertension: Plan: Slightly higher trending pressures; no change for now; nephrology also following, will avoid multiplicity (6) Obstructive sleep apnea: Plan: Continue CPAP (7) Peripheral neuropathy: Plan: Continue duloxetine 60 mg daily Decreased gabapentin 600 Mg p.o. 3 times daily due to renal function-patient is agreeable to this as the increased dose of duloxetine has improved his neuropathy (8) Anemia: Plan: Admission hgb 9.2, however his hemoglobin is improved since the retroperitoneal hematoma which required multiple units of PRBCs transfused several weeks ago Hemoglobin 8.4 and stable since admission Follow CBC in the morning Fecal occult is negative CT abdomen/pelvis with stable RP hematoma Gave Epogen 10,000 units x 1 here as per nephrology globin remained stable -Hgb remains stable (9) BPH (benign prostatic hyperplasia): Plan: Making urine without difficulty emptying Continue home tamsulosin (10) DVT (deep venous thrombosis): Plan: 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 Hopeful for discharge to home on IV abx after ID consult on Wednesday. WIll need Case Management involvement Admission and Anticipated Discharge Date Admission Date: December 27, 2021 Subjective Follow-up of abdominal pain, fever, general weaknessno specific complaints, overall better Physical Exam Physical Exam: Constitutional and general: No acute distress, looks biologic age Head and face: No puffiness, atraumatic Eyes: No scleral icterus, extraocular movements normal Neck: Supple, no JVD Musculoskeletal: No acute joint swelling, no bony abnormalities Skin/dermatologic/integument: No rash, no purpura Hematologic and lymphatic: pallor +, no petechia Gastrointestinal/abdomen: Nondistended, soft, nonacute Neurologic: Cranial nerves intact, nonfocal Psychiatry: Awake, alert, pleasant, communicative Cardiovascular: Heart rhythm regular, no rub, , no gallop systolic murmur about 2 by Respiratory: Chest movements equal, no use of accessory muscles, no adventitious sounds Extremities: No edema, no cyanosis Results & Data Results & Data ([facility]) Vital Signs (Past 12 Hours) Vital Signs Temp Pulse Pulse Resp BP Pulse Ox O2 Del Method 12/29/21 12:00 36.8 C 88 20 158/79 H 97 12/29/21 07:50 62 12/29/21 06:50 36.6 C 64 18 163/97 H 98 Room Air 12/29/21 03:09 36.6 C 58 L 18 147/85 H 98 Room Air Laboratory Results Laboratory Results - last 24 hr 12/29/21 12/29/21 06:16 06:16 WBC 6.01 RBC 3.00 L Hgb 8.7 L Hct 27.8 L MCV 92.7 MCH 29.0 MCHC 31.3 L RDW Std Deviation 49.3 H RDW Coeff of Theresa 14.8 H Plt Count 335 MPV 10.0 Sodium 137 Potassium 4.6 Chloride 107 Carbon Dioxide 21 Anion Gap 9 BUN 46 H Creatinine 2.76 H Est Cr Clr Drug Dosing 38.1 Est GFR ( Amer) 27.7 Est GFR (Non-Af Amer) 23.9 BUN/Creatinine Ratio 16.7 Glucose 87 Calcium 8.8 PG Care Time/CCT Total # of Minutes Spent Total Time Spent with Patient: Total time spent is greater than 50% in coordination of care (as documented) at patient's floor/unit and/or counseling patient: Coding Level of Care Code 83288 Subseq Hosp Care Lvl 2 Diagnoses Enterococcal bacteremia R78.81; B95.2 Diarrhea R19.7 History of renal transplant Z94.0 CKD (chronic kidney disease) stage 4, GFR 15-29 ml/min N18.4 Hypertension I10 Hypertension type: essential hypertension Obstructive sleep apnea G47.33 Peripheral neuropathy G62.9 Anemia D64.9 BPH (benign prostatic hyperplasia) N40.1; R39.11 Lower urinary tract symptom presence: symptoms present Lower urinary tract symptom detail: urinary hesitancy DVT (deep venous thrombosis) I82.409 DVT location: lower extremity Affected thrombotic vein of extremity: unspecified vein of extremity Chronicity: unspecified Laterality: unspecified laterality GERD (gastroesophageal reflux disease) K21.9 (1) Hypertension Hypertension type: essential hypertension Qualified Code(s): I10 - Essential (primary) hypertension (2) BPH (benign prostatic hyperplasia) Lower urinary tract symptom presence: symptoms present Lower urinary tract symptom detail: urinary hesitancy Qualified Code(s): N40.1 - Benign prostatic hyperplasia with lower urinary tract symptoms; R39.11 - Hesitancy of micturition (3) DVT (deep venous thrombosis) DVT location: lower extremity Affected thrombotic vein of extremity: unspecified vein of extremity Chronicity: unspecified Laterality: unspecified laterality Qualified Code(s): I82.409 - Acute embolism and thrombosis of unspecified deep veins of unspecified lower extremity
[2021-12-29] MEDS: TAMSULOSIN HCL 0.4 MG CAP PO SCH (20:25)
[2021-12-30] MEDS: AMPICILLIN 2,000 MG in 0.9 % SODIUM CHLORIDE 100 ML IV SCH ×4 (02:25→19:57)
[2021-12-30] MEDS: DULoxetine HCL 60 MG CAP PO SCH (07:50)
[2021-12-30] MEDS: PANTOprazole 40 MG TAB PO SCH (07:50)
[2021-12-30] MEDS: GABAPENTIN 600 MG TAB PO SCH ×3 (07:50→20:34)
[2021-12-30] MEDS: MYCOPHENOLATE MOFETIL 250 MG CAP PO SCH ×2 (07:50→20:34)
[2021-12-30] MEDS: SACCHAROMYCES BOULARDII 250 MG CAP PO SCH (07:51)
[2021-12-30] MEDS: LOSARTAN POTASSIUM 50 MG TAB PO SCH (07:51)
[2021-12-30] MEDS: predniSONE 5 MG TAB PO SCH (07:51)
[2021-12-30] MEDS: FERROUS SULFATE 325 MG TAB PO SCH ×2 (07:52→16:42)
[2021-12-30] MEDS: cycloSPORINE (SANDIMMUNE) 25 MG CAP PO SCH ×2 (07:52→20:34)
[2021-12-30] MEDS: cycloSPORINE 100 MG CAP PO SCH ×2 (07:52→20:34)
[2021-12-30] MEDS: FEBUXOSTAT 40 MG TABLET PO SCH (07:53)
[2021-12-30] MEDS: MAGNESIUM OXIDE 400 MG TAB PO SCH ×2 (08:00→20:37)
--- NOTE | 2021-12-30 08:31 | Nephrology Progress Note ---
Date of Service December 30, 2021 Assessment & Plan (1) Renal transplant recipient: Plan: * Received LURT from brother in law at [facility] in [place], [place] 2018 * Baseline Cr 3.0 - 3.5. Kidney function is stable at this time * Immunosuppressive regimen: Tacrolimus 150 mg po BID, MMF 1000 mg po BID and Prednisone 5 mg po daily * Continue current immunosuppressive regimen * If discharge is anticipated please have patient follow up w/ Dr. Aguilera in 1 - 2 weeks for ongoing Nephrology care ( ) (2) Hypertension: Plan: * BP is acceptable. Continue Losartan 50 mg po q AM (3) Anemia: Plan: * Large L retroperitoneal hematoma surrounding L [place] kidney * This is patient's 2nd retroperitoneal bleed. It may be associated w/ abnormality of L [place] kidney. Will need follow up with [facility] transplant service. If they allow surgery at local hospital[place] [facility] [place]. Lang) can provide service (4) Septicemia: Plan: * Initial blood culture 12/25/21 + for Enterococcus * Remains on IV Ampicillin * Follow up blood culture 12/26/21 is NGTD. Patient is afebrile and WBC # is within normal limits * 12/27/32 Echocardiogram: LVEF 55 - 60%, no vegetation * Patient will likely need R midline catheter and long course of IV antibiotic t herapy - await ID recommendations Admission and Anticipated Discharge Date Admission Date: December 27, 2021 Subjective Mr. Prado was evaluated in his hospital room this morning. He was sitting up on the edge of the bed working on his computer. He denied fever or flank d iscomfort and noted that he is tolerating his diet. He is scheduled for telehealth consultation w/ ID specialist at 2 pm today Review of Systems Constitutional: no fever Eyes: no problem reported Ear, Nose, Mouth, Throat: no problem reported Respiratory: no cough and no dyspnea Cardiovascular: no chest pain Gastrointestinal: no abdominal pain and no nausea Genitourinary: no dysuria, no urinary frequency or no problem reported Physical Exam Constitutional: well developed; no acute distress Eyes: + anicteric sclerae; no corneal abnormality ENMT: Mouth: + dry oral mucous membranes; no oral mucosal abnormality Neck: normal visual inspection and trachea midline Respiratory: normal respiratory effort Auscultation: lungs clear to auscultation bilaterally Cardiovascular: Rate/Rhythm: regular rate Heart Sounds: normal S1 and normal S2 Extremities: + pedal edema, + varicosities and + AV fistula (LUE with thrill and bruit) Musculoskeletal: Extremities: no cyanosis and no clubbing Skin: normal turgor; no lesions Neurologic: Motor/Sensory: no tremor and no asterixis Psychiatric: Orientation: alert and oriented x 3 Results & Data ([facility]) Vital Signs (Past 12 Hours) Vital Signs Temp Pulse Pulse Resp BP Pulse Ox O2 Del Method 12/30/21 07:47 36.7 C 72 18 147/87 H 99 Room Air 12/30/21 07:26 68 12/30/21 03:08 36.5 C 67 19 145/88 H 97 Room Air 12/29/21 22:44 36.5 C 69 16 155/99 H 97 Room Air Laboratory Results Laboratory Tests 12/29/21 06:16 Sodium 137 Potassium 4.6 Chloride 107 Carbon Dioxide 21 BUN 46 H Creatinine 2.76 H Glucose 87 PG Care Time/CCT Total # of Minutes Spent Total Time Spent with Patient: Total time spent is greater than 50% in coordination of care (as documented) at patient's floor/unit and/or counseling patient: Coding Level of Care Code 65357 Subseq Hosp Care Lvl 3 Diagnoses Renal transplant recipient Z94.0 Hypertension I10 Hypertension type: essential hypertension Anemia D64.9 Septicemia A41.9 (1) Hypertension Hypertension type: essential hypertension Qualified Code(s): I10 - Essential (primary) hypertension
[2021-12-30 08:44] LABS: Basophils # (auto) 0.09 K/uL (0-0.2); Basophils % (auto) 1.4 %; Eosinophils # (auto) 0.33 K/uL (0-0.50); Hematocrit (blood only) 28.3 % (40.1-51.0); Hemoglobin 8.8 g/dl (14.0-18.0); Immature Granulocytes # (auto) 0.11 K/uL (0.00-0.02); Immature Granulocytes % (auto) 1.7 %; Lymphocytes # (auto) 0.53 K/uL (1.2-3.4); Mean Corpuscular Hemoglobin 28.9 pg (25.0-34.0); Mean Corpuscular Hgb Conc 31.1 g/dL (32.0-36.0); Mean Corpuscular Volume 92.8 fL (80.0-100.0); Mean Platelet Volume 9.6 fL (9.4-12.4); Monocytes # (auto) 0.67 K/uL (0.24-0.82); Monocytes % (auto) 10.1 %; Neutrophils # (auto) 4.91 K/uL (1.4-6.5); Neutrophils % (auto) 73.8 %; Platelet Count 317 K/uL (130-400); RDW Standard Deviation 49.4 fL (36.4-46.3); Red Blood Count 3.05 M/uL (4.63-6.08); White Blood Count 6.64 K/ul (4.8-10.8)
[2021-12-30 09:10] LABS: Albumin Globulin Ratio 1.4 (0.9-2); Albumin Level 3.6 gm/dl (3.4-5.0); Bilirubin,Total 0.9 mg/dl (0.2-1.0); Calcium 9.1 mg/dl (8.5-10.1); Creatinine Clr Calc Pharmacy 36.9 ml/min; Est GFR (African American) 26.7 ml/min; Est GFR (Non-African American) 23.1 ml/min; Globulin 2.5 gm/dl (2.5-4.0); Potassium 4.3 mmol/L (3.5-5.1); Total Protein 6.1 gm/dl (6.0-8.3)
--- NOTE | 2021-12-30 12:25 | Hospitalist Progress Note ---
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; ID may still recommend JOSE (2) Diarrhea: Plan: nonbloody, seems improved now -Stool BioFire negative Fecal occult negative CT abdomen/pelvis with stable size of large RP hematoma, evidence of bladder outlet obstruction with thickened bladder wall, no colitis or diverticulitis -Observe (3) History of renal transplant: Plan: Has chronic allograft dysfunction; appears stable; nephrology followingno change Question of renal mass that I am not finding; urology follow-up (4) CKD (chronic kidney disease) stage 4, GFR 15-29 ml/min: Plan: Due to chronic allograft dysfunctionstable, follow (5) Hypertension: Plan: Slightly higher trending pressures; no change for now; nephrology also following, will defer to avoid multiplicity (6) Obstructive sleep apnea: Plan: Continue CPAP (7) Peripheral neuropathy: Plan: Continue duloxetine 60 mg daily Decreased gabapentin 600 Mg p.o. 3 times daily due to renal function-patient is agreeable to this as the increased dose of duloxetine has improved his neuropath y (8) Anemia: Plan: Admission hgb 9.2, however his hemoglobin is improved since the retroperitoneal hematoma which required multiple units of PRBCs transfused several weeks ago Hemoglobin 8.4 and stable since admission Follow CBC in the morning Fecal occult is negative CT abdomen/pelvis with stable RP hematoma Gave Epogen 10,000 units x 1 here as per nephrology globin remained stable -Hgb remains stable (9) BPH (benign prostatic hyperplasia): Plan: Making urine without difficulty emptying Continue home tamsulosin (10) DVT (deep venous thrombosis): Plan: 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 which has been held since his retroperitoneal hemorrhage He has now had 2 retroperitoneal hemorrhages Continue to hold Coumadin Could consider IVC filter-asked him to discuss with his transplant team when he sees them in the near future to discuss the most recent retroperitoneal hematoma in light of possible need for left nephrectomy as above (11) GERD (gastroesophageal reflux disease): Plan: Continue Protonix Plan Disposition-await ID consult Admission and Anticipated Discharge Date Admission Date: December 27, 2021 Subjective Follow-up of abdominal pain, fever, general weaknessno complaints, doing well Physical Exam Physical Exam: Constitutional and general: No acute distress, looks biologic age Head and face: No puffiness, atraumatic Eyes: No scleral icterus, extraocular movements normal Neck: Supple, no JVD Musculoskeletal: No acute joint swelling, no bony abnormalities Skin/dermatologic/integument: No rash, no purpura Hematologic and lymphatic: pallor +, no petechia Gastrointestinal/abdomen: Nondistended, soft, nonacute Neurologic: Cranial nerves intact, nonfocal Psychiatry: Awake, alert, pleasant, communicative Cardiovascular: Heart rhythm regular, no rub, , no gallop systolic murmur about 2 by Respiratory: Chest movements equal, no use of accessory muscles, no adventitious sounds Extremities: No edema, no cyanosis Results & Data Results & Data ([facility]) Vital Signs (Past 12 Hours) Vital Signs Temp Pulse Pulse Resp BP Pulse Ox O2 Del Method 12/30/21 12:10 37 C 67 20 167/93 H 100 Room Air 12/30/21 07:47 36.7 C 72 18 147/87 H 99 Room Air 12/30/21 07:26 68 12/30/21 03:08 36.5 C 67 19 145/88 H 97 Room Air Laboratory Results Laboratory Results - last 24 hr 12/26/21 12/30/21 12/30/21 17:00 08:34 08:34 WBC 6.64 RBC 3.05 L Hgb 8.8 L Hct 28.3 L MCV 92.8 MCH 28.9 MCHC 31.1 L RDW Std Deviation 49.4 H RDW Coeff of Theresa 15.0 H Plt Count 317 MPV 9.6 Immature Gran % (Auto) 1.7 Neut % (Auto) 73.8 Lymph % (Auto) 8.0 [place] % (Auto) 10.1 Eos % (Auto) 5.0 Baso % (Auto) 1.4 Neut # (Auto) 4.91 Lymph # (Auto) 0.53 L [place] # (Auto) 0.67 Eos # (Auto) 0.33 Baso # (Auto) 0.09 Immature Gran # (Auto) 0.11 H Sodium 137 Potassium 4.3 Chloride 106 Carbon Dioxide 23 Anion Gap 8 BUN 44 H Creatinine 2.84 H Est Cr Clr Drug Dosing 36.9 Est GFR ( Amer) 26.7 Est GFR (Non-Af Amer) 23.1 Fasting Glucose 102 H Calcium 9.1 Total Bilirubin 0.9 AST 15 ALT 16 Alkaline Phosphatase 84 Total Protein 6.1 Albumin 3.6 Globulin 2.5 Albumin/Globulin Ratio 1.4 Bld Cult ID Panel PCR Pending PG Care Time/CCT Total # of Minutes Spent Total Time Spent with Patient: Total time spent is greater than 50% in coordination of care (as documented) at patient's floor/unit and/or counseling patient: Coding Level of Care Code 82187 Subseq Hosp Care Lvl 2 Diagnoses Enterococcal bacteremia R78.81; B95.2 Diarrhea R19.7 History of renal transplant Z94.0 CKD (chronic kidney disease) stage 4, GFR 15-29 ml/min N18.4 Hypertension I10 Hypertension type: essential hypertension Obstructive sleep apnea G47.33 Peripheral neuropathy G62.9 Anemia D64.9 BPH (benign prostatic hyperplasia) N40.1; R39.11 Lower urinary tract symptom presence: symptoms present Lower urinary tract symptom detail: urinary hesitancy DVT (deep venous thrombosis) I82.409 DVT location: lower extremity Affected thrombotic vein of extremity: unspecified vein of extremity Chronicity: unspecified Laterality: unspecified laterality GERD (gastroesophageal reflux disease) K21.9 (1) Hypertension Hypertension type: essential hypertension Qualified Code(s): I10 - Essential (primary) hypertension (2) BPH (benign prostatic hyperplasia) Lower urinary tract symptom presence: symptoms present Lower urinary tract symptom detail: urinary hesitancy Qualified Code(s): N40.1 - Benign prostatic hyperplasia with lower urinary tract symptoms; R39.11 - Hesitancy of micturition (3) DVT (deep venous thrombosis) DVT location: lower extremity Affected thrombotic vein of extremity: unspecified vein of extremity Chronicity: unspecified Laterality: unspecified laterality Qualified Code(s): I82.409 - Acute embolism and thrombosis of unspecified deep veins of unspecified lower extremity
[2021-12-30 13:19] LABS: A calco-baum cmplx NotReported Not Detected (NotDetected); Bact fragilis Not Reported Not Detected (NotDetected); C auris Not Reported Not Detected (NotDetected); Calbicans Not Reported Not Detected (NotDetected); Candida glabrata Not Reported Not Detected (NotDetected); Candida krusei Not Reported Not Detected (NotDetected); Cneoformans/gatti Not Reported Not Detected (NotDetected); Cparapsilosis Not Reported Not Detected (NotDetected); Ctropicalis Not Reported Not Detected (NotDetected); E cloacae compx Not Reported Not Detected (NotDetected); Efaecalis Not Reported Not Detected (NotDetected); Efaecium Not Reported Not Detected (NotDetected); Enterobacterales Not Reported Not Detected (NotDetected); Escherichia coli Not Reported Not Detected (NotDetected); H influenzae Not Reported Not Detected (NotDetected); K aerogenes Not Reported Not Detected (NotDetected); Koxytoca Not Reported Not Detected (NotDetected); Kpneumoniae grp Not Reported Not Detected (NotDetected); Lmonocyt Not Reported Not Detected (NotDetected); N meningitidis Not Reported Not Detected (NotDetected); P aeruginosa Not Reported Not Detected (NotDetected); Proteus spp Not Reported Not Detected (NotDetected); Salmonella spp Not Reported Not Detected (NotDetected); Smarcescens Not Reported Not Detected (NotDetected); Staph lugdunensis Not Reported Not Detected (NotDetected); Staph spp. Not Reported Not Detected (NotDetected); Staphaureus Not Reported Not Detected (NotDetected); Staphepi Not Reported Not Detected (NotDetected); Stenmaltophilia Not Reported Not Detected (NotDetected); Strep agal(GrpB) Not Reported Not Detected (NotDetected); Strep pneum Not Reported Not Detected (NotDetected); Strep pyog (GrpA) Not Reported Not Detected (NotDetected); Strep spp Not Reported Not Detected (NotDetected)
--- NOTE | 2021-12-30 18:22 | Anesthesiology Consultation ---
Date of Service December 30, 2021 Assessment & Plan (1) Encounter for pre-operative examination: Chart Review Chart Review: Acceptable Risk for Surgery History Height/Weight Height: 5 ft 11 in Weight: 122.7 kg Allergies Allergy/AdvReac Type Severity Reaction Status Date / Time allopurinol Allergy Unknown Rash Verified 12/25/21 14:10 hydromorphone [From Dilaudid] AdvReac Severe confusion Verified 12/25/21 14:10 Medications Home Medications Medication Instructions Recorded Confirmed Last Taken aspirin 81 mg tablet,delayed 81 mg PO QAM 04/24/19 12/25/21 08/24/21 release (Adult Low Dose Aspirin) cholecalciferol (vitamin D3) 25 1,000 units PO QAM 04/24/19 12/25/21 08/24/21 mcg (1,000 unit) capsule docusate sodium 100 mg capsule 100 mg PO BID PRN Constipation 04/24/19 12/25/21 Unknown (Colace) multivitamin (Daily Multi-Vitamin) 1 tab PO QAM 04/24/19 12/25/21 08/24/21 tamsulosin 0.4 mg capsule (Flomax) 0.4 mg PO HS 04/24/19 12/25/21 08/23/21 prednisone 5 mg tablet 5 mg PO QAM 05/29/19 12/25/21 08/24/21 mycophenolate mofetil 250 mg 1,000 mg PO BID 02/20/20 12/25/21 08/24/21 capsule (CellCept) febuxostat 80 mg tablet (Uloric) 80 mg PO QAM 03/06/20 12/25/21 08/24/21 albuterol sulfate 90 mcg/actuation 2 inha inhalation Q6H PRN 04/06/21 12/25/21 Unknown aerosol inhaler shortness of breath or wheezing #1 inhaler omeprazole 40 mg capsule,delayed 40 mg PO QAM #90 caps 04/29/21 12/25/21 08/24/21 release cyclosporine 100 mg capsule 150 mg PO BID 06/16/21 12/25/21 08/24/21 magnesium oxide 800 mg PO BID 06/16/21 12/25/21 08/24/21 ferrous sulfate 325 mg (65 mg 325 mg PO BID 08/05/21 12/25/21 08/24/21 iron) tablet (iron) gabapentin 300 mg capsule 600 mg PO .AM & AFTERNOON 08/22/21 12/25/21 08/24/21 (Neurontin) acetaminophen 500 mg tablet 1,000 mg PO QID PRN Pain 08/24/21 12/25/21 08/24/21 (Tylenol Extra Strength) 1000 mg duloxetine 60 mg capsule,delayed 60 mg PO QAM #90 caps 11/13/21 12/25/21 Unknown release gabapentin 300 mg capsule 900 mg PO HS 11/17/21 12/25/21 Unknown losartan 50 mg tablet 50 mg PO DAILY #90 tabs 12/15/21 12/25/21 Unknown furosemide 40 mg tablet (Lasix) 60 mg PO QAM PRN Edema 12/25/21 12/25/21 Unknown Active Medications Generic Name Dose Route Start Last Admin Trade Name Freq PRN Reason Stop Dose Admin Cyclosporine 100 mg 12/25/21 23:00 12/30/21 07:52 Cyclosporine 100 Mg Cap PO 01/24/22 22:59 100 mg BID RANDELL Administration Cyclosporine 50 mg 12/25/21 23:00 12/30/21 07:52 Cyclosporine (Sandimmune) 25 Mg Cap PO 01/24/22 22:59 50 mg BID RANDELL Administration Duloxetine HCl 60 mg 12/26/21 09:00 12/30/21 07:50 Duloxetine Hcl 60 Mg Cap PO 01/25/22 08:59 60 mg QAM RANDELL Administration Ferrous Sulfate 325 mg 12/26/21 09:00 12/30/21 16:42 Ferrous Sulfate 325 Mg Tab PO 01/25/22 08:59 325 mg BID17 RANDELL Administration Gabapentin 600 mg 12/26/21 21:00 12/30/21 14:09 Gabapentin 600 Mg Tab PO 01/25/22 20:59 600 mg TID RANDELL Administration Ampicillin Sodium 2,000 mg/ 108 mls @ 200 mls/hr 12/28/21 14:00 12/30/21 14:47 Sodium Chloride IV 01/09/22 07:59 Infused Q6H RANDELL Infusion Losartan Potassium 50 mg 12/29/21 09:00 12/30/21 07:51 Losartan Potassium 50 Mg Tab PO 01/28/22 08:59 50 mg QAM RANDELL Administration Magnesium Oxide 800 mg 12/25/21 23:00 12/30/21 08:00 Magnesium Oxide 400 Mg Tab PO 01/24/22 22:59 800 mg BID RANDELL Administration Mycophenolate Mofetil 1,000 mg 12/25/21 22:09 12/30/21 07:50 Mycophenolate Mofetil 250 Mg Cap PO 01/24/22 22:08 1,000 mg BID RANDELL Administration Pantoprazole Sodium 40 mg 12/26/21 09:00 12/30/21 07:50 Pantoprazole 40 Mg Tab PO 01/25/22 08:59 40 mg QAM RANDELL Administration Prednisone 5 mg 12/26/21 09:00 12/30/21 07:51 Prednisone 5 Mg Tab PO 01/25/22 08:59 5 mg QAM RANDELL Administration Saccharomyces Boulardii 250 mg 12/27/21 16:30 12/30/21 07:51 Saccharomyces Boulardii 250 Mg Cap PO 01/26/22 16:29 250 mg DAILY RANDELL Administration Tamsulosin HCl 0.4 mg 12/26/21 21:00 12/29/21 20:25 Tamsulosin Hcl 0.4 Mg Cap PO 01/25/22 20:59 0.4 mg HS RANDELL Administration Past Medical History Medical History (Updated 12/30/21 @ 18:26 by Sarwat Lopes MD) Anemia AV fistula LEFT WRIST> NO DIALYSIS CURRENTLY> FISTULA STILL WORKS PER PT DVT (deep venous thrombosis) Right- 04/2019 following transplant > Coumadin S/P LEFT LEG SURGERY (EXCISION OF MELANOMA LEFT LEG) 10 YEARS AGO. End stage renal disease follows Dr. Aguilera and transplant team at [facility] Family history of blood clots Gout History of basal cell carcinoma History of malignant melanoma of skin Hypertension Influenza A Nephrolithiasis Pneumonia due to COVID-19 virus Rectus sheath hematoma Renal transplant recipient Sarcoidosis Umbilical hernia Venous insufficiency Venous stasis dermatitis Past Family History Family History Mother Stroke Heart disease Grandmother Cancer Lung disease Denies family history of Ovarian cancer Prostate cancer Colorectal cancer Past Surgical History Surgical History H/O colonoscopy History of cardiac cath 01/2018 > [facility] > NO STENTS History of melanoma excision left calf History of tonsillectomy History of tooth extraction Kidney transplanted APR 04, 2019 > [facility] [place] > right side Social History Smoking Status: Never smoker Hx Alcohol Use: Yes alcohol intake frequency: holidays/special occasions only Hx Substance Use: No substance use type: does not use Physical Exam Vital Signs Last Vital Signs Temp 36.9 C 12/30/21 16:15 Pulse 70 12/30/21 16:15 Resp 20 12/30/21 16:15 BP 142/87 H 12/30/21 16:15 Pulse Ox 99 12/30/21 16:15 O2 Del Method 12/30/21 16:15 Testing Laboratory Results 12/30/21 08:34 12/30/21 08:34 PT 11.4 Seconds (9.0-12.0) 12/25/21 17:20 INR 1.1 (0.9-1.1) 12/25/21 17:20 APTT 28.8 Seconds (21.0-31.0) 12/25/21 17:20 Urine Color Dark Yellow 12/25/21 18:45 Urine Appearance Clear (Clear) 12/25/21 18:45 Urine pH 5.5 (4.5-7.5) 12/25/21 18:45 Ur Specific [place] 1.016 (1.000-1.030) 12/25/21 18:45 Urine Protein 2+ (Negative) H 12/25/21 18:45 Urine Glucose (UA) Negative (Negative) 12/25/21 18:45 Urine Ketones 1+ (Negative) H 12/25/21 18:45 Urine Nitrite Negative (Negative) 12/25/21 18:45 Ur Leukocyte Esterase Trace (Negative) H 12/25/21 18:45 Urine WBC (Auto) 10-30 /hpf (0-5) H 12/25/21 18:45 Urine RBC (Auto) 0-4 /hpf (0-4) 12/25/21 18:45 U Hyaline Cast (Auto) 1-5 /lpf (0-5) 12/25/21 18:45 U Epithel Cells (Auto) 20-30 /lpf (0-5) H 12/25/21 18:45 Urine Bacteria (Auto) Negative (Negative) 12/25/21 18:45 Blood Type A Positive 12/25/21 23:43 Antibody Screen NEGATIVE 12/25/21 23:43 12/26/21 17:00 Aerobic Blood Culture - Preliminary Blood Gram positive coccobacilli Anaerobic Blood Culture - Preliminary No growth in Anaerobic bottle after 48 hours. 12/26/21 17:00 Aerobic Blood Culture - Preliminary Blood No growth in Aerobic bottle after 48 hours. Anaerobic Blood Culture - Preliminary No growth in Anaerobic bottle after 48 hours. 12/25/21 17:30 Aerobic Blood Culture - Final Blood Enterococcus faecalis Anaerobic Blood Culture - Final Enterococcus faecalis 12/25/21 17:20 Aerobic Blood Culture - Final Blood Enterococcus faecalis Anaerobic Blood Culture - Final Enterococcus faecalis 12/25/21 18:45 Urine Culture - Final Urine,Clean Catch More than three types of organisms present, all moderate counts mixed probable skin cynthia. No further identifications or sensitivities to follow. Electrocardiogram Date: 12/27/21 Findings: + NSR @ (89) and + RBBB (Incomplete) Echocardiogram Date: 12/27/21 EF: 55-60% LV Function: normal Other Findings: + LVH Valvular Disease: + no significant valvular disease
[2021-12-30] MEDS: TAMSULOSIN HCL 0.4 MG CAP PO SCH (20:33)
[2021-12-31] MEDS: AMPICILLIN 2,000 MG in 0.9 % SODIUM CHLORIDE 100 ML IV SCH ×4 (02:39→20:18)
[2021-12-31 07:51] LABS: Basophils % (auto) 1.3 %; Eosinophils # (auto) 0.39 K/uL (0-0.50); Hematocrit (blood only) 29.8 % (40.1-51.0); Hemoglobin 9.3 g/dl (14.0-18.0); Immature Granulocytes # (auto) 0.18 K/uL (0.00-0.02); Immature Granulocytes % (auto) 2.3 %; Lymphocytes # (auto) 0.49 K/uL (1.2-3.4); Lymphocytes % (auto) 6.3 %; Mean Corpuscular Hemoglobin 28.5 pg (25.0-34.0); Mean Corpuscular Hgb Conc 31.2 g/dL (32.0-36.0); Mean Corpuscular Volume 91.4 fL (80.0-100.0); Mean Platelet Volume 9.5 fL (9.4-12.4); Monocytes # (auto) 0.69 K/uL (0.24-0.82); Monocytes % (auto) 8.9 %; Neutrophils % (auto) 76.2 %; Platelet Count 358 K/uL (130-400); RDW Standard Deviation 49.1 fL (36.4-46.3); Red Blood Count 3.26 M/uL (4.63-6.08); White Blood Count 7.75 K/ul (4.8-10.8)
[2021-12-31] MEDS: predniSONE 5 MG TAB PO SCH (08:13)
[2021-12-31] MEDS: DULoxetine HCL 60 MG CAP PO SCH (08:13)
[2021-12-31] MEDS: PANTOprazole 40 MG TAB PO SCH (08:13)
[2021-12-31] MEDS: SACCHAROMYCES BOULARDII 250 MG CAP PO SCH (08:13)
[2021-12-31] MEDS: LOSARTAN POTASSIUM 50 MG TAB PO SCH (08:13)
[2021-12-31] MEDS: cycloSPORINE 100 MG CAP PO SCH ×2 (08:15→20:23)
[2021-12-31] MEDS: FERROUS SULFATE 325 MG TAB PO SCH ×2 (08:16→16:47)
[2021-12-31] MEDS: MYCOPHENOLATE MOFETIL 250 MG CAP PO SCH ×2 (08:16→20:24)
[2021-12-31] MEDS: cycloSPORINE (SANDIMMUNE) 25 MG CAP PO SCH ×2 (08:16→20:23)
[2021-12-31] MEDS: FEBUXOSTAT PO SCH (08:16)
[2021-12-31] MEDS: GABAPENTIN 600 MG TAB PO SCH ×3 (08:16→20:24)
--- NOTE | 2021-12-31 08:16 | Nephrology Progress Note ---
Date of Service December 31, 2021 Assessment & Plan (1) Renal transplant recipient: Plan: * Received LURT from brother in law at [facility] in [place], [place] 2018 * Baseline Cr 3.0 - 3.5. Kidney function is stable at this time * Immunosuppressive regimen: Tacrolimus 150 mg po BID, MMF 1000 mg po BID and Prednisone 5 mg po daily * Continue current immunosuppressive regimen * If discharge is anticipated please have patient follow up w/ Dr. Aguilera in 1 - 2 weeks for ongoing Nephrology care ( ) (2) Hypertension: Plan: * BP is acceptable. Continue Losartan 50 mg po q AM (3) Anemia: Plan: * Large L retroperitoneal hematoma surrounding L ute kidney * This is patient's 2nd retroperitoneal bleed. It may be associated w/ abnormality of L ute kidney. Will need follow up with [facility] transplant service. If they allow surgery at local hospital, [facility] (Dr. Lang) can provide service (4) Septicemia: Plan: * Initial blood culture 12/25/21 + for Enterococcus * Remains on IV Ampicillin * Follow up blood culture 12/26/21 is NGTD. Patient is afebrile and WBC # is within normal limits * 12/27/32 Echocardiogram: LVEF 55 - 60%, no vegetation * JOSE ordered - pending * Patient will likely need R midline catheter and long course of IV antibiotic therapy - await ID recommendations Admission and Anticipated Discharge Date Admission Date: December 27, 2021 Subjective Mr. Prado was evaluated in his hospital room this morning. He was sitting up on the edge of the bed working on his computer. He denied fever or flank discomfort. He is currently NPO and awaiting JOSE as requested by ID telehealth specialist Review of Systems Constitutional: no fever Eyes: no problem reported Ear, Nose, Mouth, Throat: no problem reported Respiratory: no cough and no dyspnea Cardiovascular: no chest pain Gastrointestinal: no abdominal pain and no nausea Genitourinary: no dysuria, no urinary frequency or no problem reported Physical Exam Constitutional: well developed; no acute distress Eyes: + anicteric sclerae; no corneal abnormality ENMT: Mouth: + dry oral mucous membranes; no oral mucosal abnormality Neck: normal visual inspection and trachea midline Respiratory: normal respiratory effort Auscultation: lungs clear to auscultation bilaterally Cardiovascular: Rate/Rhythm: regular rate Heart Sounds: normal S1 and no rmal S2 Extremities: + pedal edema, + varicosities and + AV fistula (LUE with thrill and bruit) Musculoskeletal: Extremities: no cyanosis and no clubbing Skin: normal turgor; no lesions Neurologic: Motor/Sensory: no tremor and no asterixis Psychiatric: Orientation: alert and oriented x 3 Results & Data ([facility]) Vital Signs (Past 12 Hours) Vital Signs Temp Pulse Pulse Resp BP Pulse Ox O2 Del Method 12/31/21 07:23 68 12/31/21 03:45 36.6 C 62 19 159/105 H 96 Room Air 12/30/21 22:42 36.6 C 62 19 155/86 H 98 Room Air Laboratory Results Laboratory Tests 12/31/21 07:24 WBC 7.75 Hgb 9.3 L Hct 29.8 L Plt Count 358 Laboratory Tests 12/31/21 07:24 Sodium 139 Potassium 4.6 Chloride 107 Carbon Dioxide 24 BUN 43 H Creatinine 2.97 H Albumin 3.7 PG Care Time/CCT Total # of Minutes Spent Total Time Spent with Patient: Total time spent is greater than 50% in coordination of care (as documented) at patient's floor/unit and/or counseling patient: Coding Level of Care Code 51454 Subseq Hosp Care Lvl 3 Diagnoses Renal transplant recipient Z94.0 Hypertension I10 Hypertension type: essential hypertension Anemia D64.9 Septicemia A41.9 (1) Hypertension Hypertension type: essential hypertension Qualified Code(s): I10 - Essential (primary) hypertension
[2021-12-31] MEDS: MAGNESIUM OXIDE 400 MG TAB PO SCH ×2 (08:24→20:29)
[2021-12-31 08:25] LABS: Albumin Globulin Ratio 1.4 (0.9-2); Albumin Level 3.7 gm/dl (3.4-5.0); Calcium 9.4 mg/dl (8.5-10.1); Creatinine Clr Calc Pharmacy 35.2 ml/min; Est GFR (African American) 25.3 ml/min; Est GFR (Non-African American) 21.8 ml/min; Globulin 2.7 gm/dl (2.5-4.0); Potassium 4.6 mmol/L (3.5-5.1); Total Protein 6.4 gm/dl (6.0-8.3)
[2021-12-31] MEDS ORDERED: fentaNYL citrate 100 MCG/2 ML VIAL ONE (10:04)
[2021-12-31] MEDS ORDERED: BENZOCAINE/TETRACAIN/BUTAM 50 APPLN/5 GM CAN EXT ONE (10:05)
[2021-12-31] MEDS ORDERED: MIDAZOLAM HCL 1 MG/ML 2ML VIAL ONE (10:05)
--- NOTE | 2021-12-31 10:29 | Pre Anesthesia Assessment ---
Date of Service December 31, 2021 Pre Sedation Assessment Vital Signs Temp Pulse Pulse Resp BP Pulse Ox O2 Del Method 12/31/21 10:19 66 16 162/97 H 99 Room Air 12/31/21 08:20 36.5 C 70 18 153/84 H 97 Room Air 12/31/21 07:23 68 12/31/21 03:45 36.6 C 62 19 159/105 H 96 Room Air 12/30/21 22:42 36.6 C 62 19 155/86 H 98 Room Air 12/30/21 19:20 36.5 C 73 18 167/100 H 100 Room Air 12/30/21 16:15 36.9 C 70 20 142/87 H 99 Room Air 12/30/21 15:10 69 12/30/21 12:10 37 C 67 20 167/93 H 100 Room Air Cardiovascular + regular rate and + regular rhythm Respiratory + respiratory effort normal Pre-Sedation Airway Assessment Smoking Status: Never smoker Hx Sleep Apnea: Yes Hx Difficult Intubation: No Short, Thick Neck: No Thyromental Distance: > or= 3.5 Finger Breadths Oral Cavity: + WNL Mallampati Class: I ASA: ASA3 NPO Status Date of Last Intake of Fluids: 12/31/21 Time of Last Intake of Fluids: 07:30 Date of Last Intake of Solid Food: 12/30/21 Procedure Planning Contraindications for Sedation: none Current Medications Reviewed: Yes Notes The planned sedation has been discussed with the patient. Informed Consent was obtained. I have identified the patient, determined the appropriateness of sedation and have assessed the patient immediately prior to the procedure. All medicine(s) and interventions are by my order.
--- NOTE | 2021-12-31 10:48 | Post Anesthesia Assessment ---
Date of Service December 31, 2021 Post Sedation Assessment Vital Signs Temp Pulse Pulse Resp BP Pulse Ox O2 Del Method 12/31/21 10:46 62 17 157/83 H 100 Nasal Cannula 12/31/21 10:41 61 17 159/85 H 100 Nasal Cannula 12/31/21 10:37 61 17 169/89 H 100 Nasal Cannula 12/31/21 10:30 65 17 168/104 H 100 Nasal Cannula 12/31/21 10:19 66 16 162/97 H 99 Room Air 12/31/21 08:20 36.5 C 70 18 153/84 H 97 Room Air 12/31/21 07:23 68 12/31/21 03:45 36.6 C 62 19 159/105 H 96 Room Air 12/30/21 22:42 36.6 C 62 19 155/86 H 98 Room Air 12/30/21 19:20 36.5 C 73 18 167/100 H 100 Room Air 12/30/21 16:15 36.9 C 70 20 142/87 H 99 Room Air 12/30/21 15:10 69 12/30/21 12:10 37 C 67 20 167/93 H 100 Room Air O2 Flow Rate 12/31/21 10:46 4 12/31/21 10:41 4 12/31/21 10:37 4 12/31/21 10:30 4 12/31/21 10:19 12/31/21 08:20 12/31/21 07:23 12/31/21 03:45 12/30/21 22:42 12/30/21 19:20 12/30/21 16:15 12/30/21 15:10 12/30/21 12:10 Recovery Score Activity: Moves 4 extremities Respiration: Deep Breath/Cough Circulation: +/-20% PreAnes Value Consciousness: Fully Awake Oxygen Saturation: > 92% On Room Air Post Anesthesia Score: 9 Discharge Sedation Level of Care: Fast Track Phase II Post Sedation Plan On clinical assessment, the patient appears to have tolerated the sedation without complications. Patient is recovering as anticipated. Patient will continue to be monitored by nursing and may be discharged when sedation discharge criteria are met per below protocol. Upon Completions of procedure up to 15 minutes continue every 5 minute vital signs and the P.A.R. score; then discharge to a Phase I or Fast Track to Phase II per the following guidelines: * Discharge Patient to appropriate Phase II area if PAR is 8 or greater or return to pre- procedure baseline. The post - procedure orders will be as directed. * If PAR score is less than 8 or not return to pre-procedure baseline then patient will follow Phase I monitoring till PAR is reached for Phase II. The Phase I may be done in procedure room or may call to secure a Phase I area. * If naloxone or flumazenil are used for reversal, hold in Phase I for continued monitoring from when last reversal dose was given for a minimum of 60 minutes or longer pending the nurse and/or physician discretion of patient condition before discharge to Phase II. Please call the Sedation Physician to re-evaluate and complete post-note for discharge to Phase II area. Do NOT discharge from procedure sedation or Phase 1 until post- sedation evaluation note is complete by procedure /sedation MD Sedation Discharge Instructions to be given to the patient at discharge to home.
--- NOTE | 2021-12-31 11:44 | XCELERA ---
[id number]
[2021-12-31] MEDS: cefTRIAXone SODIUM 2,000 MG in DEXTROSE 5% 50 ML IV SCH ×2 (13:54→21:02)
--- NOTE | 2021-12-31 14:34 | Hospitalist Progress Note ---
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 replacement; ampicillin plus Rocephin6 weeks, will plan PICC (3) History of renal transplant: Plan: Has chronic allograft dysfunction; appears stable; nephrology followingno change Question of renal mass that I am not finding; urology follow-up (4) CKD (chronic kidney disease) stage 4, GFR 15-29 ml/min: Plan: Due to chronic allograft dysfunctionstable, follow (5) Hypertension: Plan: Slightly higher trending pressures; no change for now; nephrology also following, will defer to avoid multiplicity (6) Obstructive sleep apnea: Plan: Continue CPAP (7) Peripheral neuropathy: Plan: Continue duloxetine 60 mg daily Decreased gabapentin 600 Mg p.o. 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 which has been held since his retroperitoneal hemorrhage He has now had 2 retroperitoneal hemorrhages Continue to hold Coumadin Could consider IVC filter-asked him to discuss with his primary team when he sees them in the near future to discuss the most recent retroperitoneal hematoma in light of possible need for left nephrectomy as above (11) GERD (gastroesophageal reflux disease): Plan: Continue Protonix Admission and Anticipated Discharge Date Admission Date: December 27, 2021 Subjective Follow-up of original presentation with abdominal pain, fever, weakness- symptomatically doing well, JOSE shows likely vegetation on aortic valve Physical Exam Physical Exam: Constitutional and general: No acute distress, looks biologic age Head and face: No puffiness, atraumatic Eyes: No scleral icterus, extraocular movements normal Neck: Supple, no JVD Musculoskeletal: No acute joint swelling, no bony abnormalities Skin/dermatologic/integument: No rash, no purpura Hematologic and lymphatic: pallor +, no petechia Gastrointestinal/abdomen:soft, nonacute Neurologic: Cranial nerves intact, nonfocal Psychiatry: Awake, alert, pleasant, communicative Cardiovascular: Heart rhythm regular, no rub, systolic murmur about 2 x 6, no gallop Respiratory: Chest movements equal, no use of accessory muscles, no adventitious sounds Extremities: No edema, no cyanosis Results & Data Results & Data ([facility]) Vital Signs (Past 12 Hours) Vital Signs Temp Pulse Pulse Resp BP Pulse Ox O2 Del Method 12/31/21 12:02 36.6 C 62 18 156/87 H 95 Room Air 12/31/21 11:43 65 16 144/96 H 99 Room Air 12/31/21 11:15 36.6 C 63 16 160/100 H 96 Room Air 12/31/21 11:02 65 15 141/87 H 97 Room Air 12/31/21 10:56 67 15 157/90 H 100 Room Air 12/31/21 10:48 63 15 155/87 H 100 Room Air 12/31/21 10:46 62 17 157/83 H 100 Nasal Cannula 12/31/21 10:41 61 17 159/85 H 100 Nasal Cannula 12/31/21 10:37 61 17 169/89 H 100 Nasal Cannula 12/31/21 10:30 65 17 168/104 H 100 Nasal Cannula 12/31/21 10:19 66 16 162/97 H 99 Room Air 12/31/21 08:20 36.5 C 70 18 153/84 H 97 Room Air 12/31/21 07:23 68 12/31/21 03:45 36.6 C 62 19 159/105 H 96 Room Air O2 Flow Rate 12/31/21 12:02 12/31/21 11:43 12/31/21 11:15 12/31/21 11:02 12/31/21 10:56 12/31/21 10:48 12/31/21 10:46 4 12/31/21 10:41 4 12/31/21 10:37 4 12/31/21 10:30 4 12/31/21 10:19 12/31/21 08:20 12/31/21 07:23 12/31/21 03:45 Laboratory Results Laboratory Results - last 24 hr 12/26/21 12/31/21 12/31/21 17:00 07:24 07:24 WBC 7.75 RBC 3.26 L Hgb 9.3 L Hct 29.8 L MCV 91.4 MCH 28.5 MCHC 31.2 L RDW Std Deviation 49.1 H RDW Coeff of Theresa 15.0 H Plt Count 358 MPV 9.5 Immature Gran % (Auto) 2.3 Neut % (Auto) 76.2 Lymph % (Auto) 6.3 [place] % (Auto) 8.9 Eos % (Auto) 5.0 Baso % (Auto) 1.3 Neut # (Auto) 5.90 Lymph # (Auto) 0.49 L [place] # (Auto) 0.69 Eos # (Auto) 0.39 Baso # (Auto) 0.10 Immature Gran # (Auto) 0.18 H Sodium 139 Potassium 4.6 Chloride 107 Carbon Dioxide 24 Anion Gap 8 BUN 43 H Creatinine 2.97 H Est Cr Clr Drug Dosing 35.2 Est GFR ( Amer) 25.3 Est GFR (Non-Af Amer) 21.8 Fasting Glucose 91 Calcium 9.4 Total Bilirubin 1.0 AST 16 ALT 17 Alkaline Phosphatase 87 Total Protein 6.4 Albumin 3.7 Globulin 2.7 Albumin/Globulin Ratio 1.4 CTX-M Gene Resistance (PCR) Not Reportable PG Care Time/CCT Total # of Minutes Spent Total Time Spent with Patient: Total time spent is greater than 50% in coordination of care (as documented) at patient's floor/unit and/or counseling patient: Coding Level of Care Code 83883 Subseq Hosp Care Lvl 2 Diagnoses Aortic valve endocarditis I35.8 Enterococcal bacteremia R78.81; B95.2 History of renal transplant Z94.0 CKD (chronic kidney disease) stage 4, GFR 15-29 ml/min N18.4 Hypertension I10 Hypertension type: essential hypertension Obstructive sleep apnea G47.33 Peripheral neuropathy G62.9 Anemia D64.9 BPH (benign prostatic hyperplasia) N40.1; R39.11 Lower urinary tract symptom presence: symptoms present Lower urinary tract symptom detail: urinary hesitancy DVT (deep venous thrombosis) I82.409 DVT location: lower extremity Affected thrombotic vein of extremity: unspecified vein of extremity Chronicity: unspecified Laterality: unspecified laterality GERD (gastroesophageal reflux disease) K21.9 (1) Hypertension Hypertension type: essential hypertension Qualified Code(s): I10 - Essential (primary) hypertension (2) BPH (benign prostatic hyperplasia) Lower urinary tract symptom presence: symptoms present Lower urinary tract symptom detail: urinary hesitancy Qualified Code(s): N40.1 - Benign prostatic hyperplasia with lower urinary tract symptoms; R39.11 - Hesitancy of micturition (3) DVT (deep venous thrombosis) DVT location: lower extremity Affected thrombotic vein of extremity: unspec ified vein of extremity Chronicity: unspecified Laterality: unspecified laterality Qualified Code(s): I82.409 - Acute embolism and thrombosis of unspecified deep veins of unspecified lower extremity
[2021-12-31] MEDS: TAMSULOSIN HCL 0.4 MG CAP PO SCH (20:24)
[2022-01-01] MEDS: AMPICILLIN 2,000 MG in 0.9 % SODIUM CHLORIDE 100 ML IV SCH ×4 (01:46→19:32)
[2022-01-01 06:16] LABS: Basophils # (auto) 0.07 K/uL (0-0.2); Eosinophils # (auto) 0.35 K/uL (0-0.50); Eosinophils % (auto) 4.9 %; Hematocrit (blood only) 29.2 % (40.1-51.0); Hemoglobin 9.2 g/dl (14.0-18.0); Immature Granulocytes # (auto) 0.19 K/uL (0.00-0.02); Immature Granulocytes % (auto) 2.6 %; Lymphocytes % (auto) 8.3 %; Mean Corpuscular Hemoglobin 29.5 pg (25.0-34.0); Mean Corpuscular Hgb Conc 31.5 g/dL (32.0-36.0); Mean Corpuscular Volume 93.6 fL (80.0-100.0); Mean Platelet Volume 10.2 fL (9.4-12.4); Monocytes # (auto) 0.71 K/uL (0.24-0.82); Monocytes % (auto) 9.9 %; Neutrophils # (auto) 5.27 K/uL (1.4-6.5); Neutrophils % (auto) 73.3 %; Platelet Count 311 K/uL (130-400); RDW Coefficient of Variation 15.5 % (11.5-14.5); RDW Standard Deviation 51.2 fL (36.4-46.3); Red Blood Count 3.12 M/uL (4.63-6.08); White Blood Count 7.19 K/ul (4.8-10.8)
[2022-01-01 06:24] LABS: Albumin Globulin Ratio 1.5 (0.9-2); Albumin Level 3.4 gm/dl (3.4-5.0); BUN Creatinine Ratio 15.6 (10-20); Bilirubin,Total 0.7 mg/dl (0.2-1.0); Calcium 8.5 mg/dl (8.5-10.1); Creatinine Clr Calc Pharmacy 36.2 ml/min; Est GFR (African American) 26.2 ml/min; Est GFR (Non-African American) 22.6 ml/min; Globulin 2.3 gm/dl (2.5-4.0); Potassium 4.8 mmol/L (3.5-5.1); Total Protein 5.7 gm/dl (6.0-8.3)
--- NOTE | 2022-01-01 08:59 | Nephrology Progress Note ---
Date of Service January 01, 2022 Assessment & Plan (1) Renal transplant recipient: Plan: * Received LURT from brother in law at [facility] in [place], [place] 2018 * Baseline Cr 3.0 - 3.5. Kidney function is stable at this time * Immunosuppressive regimen: Tacrolimus 150 mg po BID, MMF 1000 mg po BID and Prednisone 5 mg po daily * Continue current immunosuppressive regimen * Kidney function is stable. Patient is on his chronic immunosuppressive luis men and BP medications. Patient is awaiting PICC line insertion for home antibiotic therapy of endocarditis. No further Nephrology evaluation indicated at this time. Will sign off. Please have patient follow up w/ Dr. Aguilera in 1 - 2 weeks for ongoing Nephrology care ( ) (2) Hypertension: Plan: * BP is acceptable. Continue Losartan 50 mg po q AM (3) Anemia: Plan: * Large L retroperitoneal hematoma surrounding L jamul kidney * This is patient's 2nd retroperitoneal bleed. It may be associated w/ abnormality of L jamul kidney. Will need follow up with [facility] transplant service. If they allow surgery at local hospital, [facility] (Dr. Lang) can provide service (4) Septicemia: Plan: * Initial blood culture 12/25/21 + for Enterococcus * Remains on IV Ampicillin * Follow up blood culture 12/26/21 is NGTD. Patient is afebrile and WBC # is within normal limits * 12/27/32 Echocardiogram: LVEF 55 - 60%, no vegetation * 12/31/21 JOSE - discrete vegetation on the noncoronary cusp of the aortic valuve * Patient has functioning renal allograft and functioning LUE AVF. Plan RUE PICC to allow IV antibiotic therapy for endocarditis Admission and Anticipated Discharge Date Admission Date: December 27, 2021 Subjective Mr. Prado was evaluated in his hospital room this morning. He denied fever or flank discomfort. He reports that JOSE was + for a vegetation on the aortic valve. He is awating PICC placement Review of Systems Constitutional: no fever Eyes: no problem reported Ear, Nose, Mouth, Throat: no problem reported Respiratory: no cough and no dyspnea Cardiovascular: no chest pain Gastrointestinal: no abdominal pain and no nausea Genitourinary: no dysuria, no urinary frequency or no problem reported Musculoskeletal: + neck pain, + joint pain and + stiffness; no back pain and no radicular pain Physical Exam Constitutional: well developed; no acute distress Eyes: + anicteric sclerae; no corneal abnormality ENMT: Mouth: + dry oral mucous membranes; no oral mucosal abnormality Neck: normal visual inspection and trachea midline Respiratory: normal respiratory effort Auscultation: lungs clear to auscultation bilaterally Cardiovascular: Rate/Rhythm: regular rate Heart Sounds: normal S1 and normal S2 Extremities: + pedal edema, + varicosities and + AV fistula (LUE with thrill and bruit) Musculoskeletal: Extremities: no cyanosis and no clubbing Skin: normal turgor; no lesions Neurologic: Motor/Sensory: no tremor and no asterixis Psychiatric: Orientation: alert and oriented x 3 Results & Data ([facility]) Vital Signs (Past 12 Hours) Vital Signs Temp Pulse Pulse Resp BP Pulse Ox O2 Del Method 01/01/22 08:19 36.5 C 67 17 160/93 H 98 Room Air 01/01/22 03:25 36.7 C 65 18 143/96 H 97 Room Air 01/01/22 01:06 68 12/31/21 22:55 36.6 C 70 18 128/81 97 Room Air PG Care Time/CCT Total # of Minutes Spent Total Time Spent with Patient: Total time spent is greater than 50% in coordination of care (as documented) at patient's floor/unit and/or counseling patient: Coding Level of Care Code 40223 Subseq Hosp Care Lvl 3 Diagnoses Renal transplant recipient Z94.0 Hypertension I10 Hypertension type: essential hypertension Anemia D64.9 Septicemia A41.9 (1) Hypertension Hypertension type: essential hypertension Qualified Code(s): I10 - Essential (primary) hypertension
[2022-01-01] MEDS: cefTRIAXone SODIUM 2,000 MG in DEXTROSE 5% 50 ML IV SCH ×2 (09:21→20:23)
[2022-01-01] MEDS: FEBUXOSTAT PO SCH (09:22)
[2022-01-01] MEDS: SACCHAROMYCES BOULARDII 250 MG CAP PO SCH (09:23)
[2022-01-01] MEDS: MYCOPHENOLATE MOFETIL 250 MG CAP PO SCH ×2 (09:23→20:29)
[2022-01-01] MEDS: PANTOprazole 40 MG TAB PO SCH (09:24)
[2022-01-01] MEDS: cycloSPORINE (SANDIMMUNE) 25 MG CAP PO SCH ×2 (09:24→20:25)
[2022-01-01] MEDS: cycloSPORINE 100 MG CAP PO SCH ×2 (09:24→20:26)
[2022-01-01] MEDS: DULoxetine HCL 60 MG CAP PO SCH (09:24)
[2022-01-01] MEDS: GABAPENTIN 600 MG TAB PO SCH ×3 (09:25→20:28)
[2022-01-01] MEDS: predniSONE 5 MG TAB PO SCH (09:25)
[2022-01-01] MEDS: FERROUS SULFATE 325 MG TAB PO SCH ×2 (09:25→16:58)
[2022-01-01] MEDS: LOSARTAN POTASSIUM 50 MG TAB PO SCH (09:25)
[2022-01-01] MEDS: MAGNESIUM OXIDE 400 MG TAB PO SCH ×2 (09:28→20:33)
--- NOTE | 2022-01-01 13:43 | Hospitalist Progress Note ---
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 replacement-as above (3) History of renal transplant: Plan: Has chronic allograft dysfunction; appears stable; nephrology followingno change Question of renal mass that I am not finding; urology follow-up (4) CKD (chronic kidney disease) stage 4, GFR 15-29 ml/min: Plan: Due to chronic allograft dysfunctionstable, follow (5) Hypertension: Plan: Slightly higher trending pressures; no change for now; nephrology also following, will defer to avoid multiplicity (6) Obstructive sleep apnea: Plan: Continue CPAP (7) Peripheral neuropathy: Plan: Continue duloxetine 60 mg daily Decreased gabapentin 600 Mg p.o. 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 which has been held since his retroperitoneal hemorrhage He has now had 2 retroperitoneal hemorrhages Continue to hold Coumadin Could consider IVC filter-asked him to discuss with his primary team when he sees them in the near future to discuss the most recent retroperitoneal hematoma in light of possible need for left nephrectomy as above (11) GERD (gastroesophageal reflux disease): Plan: Continue Protonix Plan Labs as needed Admission and Anticipated Discharge Date Admission Date: December 27, 2021 Subjective Follow-up of original presentation with abdominal pain, fever, weakness- symptomatically doing well Physical Exam Physical Exam: Constitutional and general: No acute distress, looks biologic age Head and face: No puffiness, atraumatic Eyes: No scleral icterus, extraocular movements normal Neck: Supple, no JVD Musculoskeletal: No acute joint swelling, no bony abnormalities Skin/dermatologic/integument: No rash, no purpura Hematologic and lymphatic: pallor +, no petechia Gastrointestinal/abdomen:soft, nonacute Neurologic: Cranial nerves intact, nonfocal Psychiatry: Awake, alert, pleasant, communicative Cardiovascular: Heart rhythm regular, no rub, systolic murmur about 2 x 6, no gallop Respiratory: Chest movements equal, no use of accessory muscles, no adventitious sounds Extremities: No edema, no cyanosis Results & Data Results & Data ([facility]) Vital Signs (Past 12 Hours) Vital Signs Temp Pulse Pulse Resp BP Pulse Ox O2 Del Method 01/01/22 11:41 36.6 C 70 18 145/90 H 100 Room Air 01/01/22 08:00 68 01/01/22 08:19 36.5 C 67 17 160/93 H 98 Room Air 01/01/22 03:25 36.7 C 65 18 143/96 H 97 Room Air Laboratory Results Laboratory Results - last 24 hr 01/01/22 01/01/22 05:35 05:35 WBC 7.19 RBC 3.12 L Hgb 9.2 L Hct 29.2 L MCV 93.6 MCH 29.5 MCHC 31.5 L RDW Std Deviation 51.2 H RDW Coeff of Theresa 15.5 H Plt Count 311 MPV 10.2 Immature Gran % (Auto) 2.6 Neut % (Auto) 73.3 Lymph % (Auto) 8.3 Barry % (Auto) 9.9 Eos % (Auto) 4.9 Baso % (Auto) 1.0 Neut # (Auto) 5.27 Lymph # (Auto) 0.60 L Barry # (Auto) 0.71 Eos # (Auto) 0.35 Baso # (Auto) 0.07 Immature Gran # (Auto) 0.19 H Sodium 139 Potassium 4.8 Chloride 108 H Carbon Dioxide 21 Anion Gap 10 BUN 45 H Creatinine 2.89 H Est Cr Clr Drug Dosing 36.2 Est GFR ( Amer) 26.2 Est GFR (Non-Af Amer) 22.6 BUN/Creatinine Ratio 15.6 Glucose 91 Fasting Glucose 91 Calcium 8.5 Total Bilirubin 0.7 AST 13 ALT 14 Alkaline Phosphatase 73 Total Protein 5.7 L Albumin 3.4 Globulin 2.3 L Albumin/Globulin Ratio 1.5 PG Care Time/CCT Total # of Minutes Spent Total Time Spent with Patient: Total time spent is greater than 50% in coordination of care (as documented) at patient's floor/unit and/or counseling patient: Coding Level of Care Code 70758 Subseq Hosp Care Lvl 2 Diagnoses Aortic valve endocarditis I35.8 Enterococcal bacteremia R78.81; B95.2 History of renal transplant Z94.0 CKD (chronic kidney disease) stage 4, GFR 15-29 ml/min N18.4 Hypertension I10 Hypertension type: essential hypertension Obstructive sleep apnea G47.33 Peripheral neuropathy G62.9 Anemia D64.9 BPH (benign prostatic hyperplasia) N40.1; R39.11 Lower urinary tract symptom presence: symptoms present Lower urinary tract symptom detail: urinary hesitancy DVT (deep venous thrombosis) I82.409 DVT location: lower extremity Affected thrombotic vein of extremity: unspecified vein of extremity Chronicity: unspecified Laterality: unspecified laterality GERD (gastroesophageal reflux disease) K21.9 (1) Hypertension Hypertension type: essential hypertension Qualified Code(s): I10 - Essential (primary) hypertension (2) BPH (benign prostatic hyperplasia) Lower urinary tract symptom presence: symptoms present Lower urinary tract symptom detail: urinary hesitancy Qualified Code(s): N40.1 - Benign prostatic hyperplasia with lower urinary tract symptoms; R39.11 - Hesitancy of micturition (3) DVT (deep venous thrombosis) DVT location: lower extremity Affected thrombotic vein of extremity: unspecified vein of extremity Chronicity: unspecified Laterality: unspecified laterality Qualified Code(s): I82.409 - Acute embolism and thrombosis of unspecified deep veins of unspecified lower extremity
[2022-01-01] MEDS: TAMSULOSIN HCL 0.4 MG CAP PO SCH (20:30)
[2022-01-02] MEDS: AMPICILLIN 2,000 MG in 0.9 % SODIUM CHLORIDE 100 ML IV SCH ×4 (01:19→19:43)
[2022-01-02] MEDS: FEBUXOSTAT PO SCH (08:19)
[2022-01-02] MEDS: MYCOPHENOLATE MOFETIL 250 MG CAP PO SCH ×2 (08:21→20:23)
[2022-01-02] MEDS: cycloSPORINE 100 MG CAP PO SCH ×2 (08:21→20:24)
[2022-01-02] MEDS: FERROUS SULFATE 325 MG TAB PO SCH ×2 (08:21→16:38)
[2022-01-02] MEDS: SACCHAROMYCES BOULARDII 250 MG CAP PO SCH (08:21)
[2022-01-02] MEDS: cycloSPORINE (SANDIMMUNE) 25 MG CAP PO SCH ×2 (08:21→20:22)
[2022-01-02] MEDS: DULoxetine HCL 60 MG CAP PO SCH (08:21)
[2022-01-02] MEDS: PANTOprazole 40 MG TAB PO SCH (08:21)
[2022-01-02] MEDS: predniSONE 5 MG TAB PO SCH (08:21)
[2022-01-02] MEDS: GABAPENTIN 600 MG TAB PO SCH ×3 (08:21→20:21)
[2022-01-02] MEDS: LOSARTAN POTASSIUM 50 MG TAB PO SCH (08:21)
[2022-01-02] MEDS: MAGNESIUM OXIDE 400 MG TAB PO SCH ×2 (08:22→20:27)
[2022-01-02] MEDS: cefTRIAXone SODIUM 2,000 MG in DEXTROSE 5% 50 ML IV SCH ×2 (08:52→20:19)
--- NOTE | 2022-01-02 14:52 | Hospitalist Progress Note ---
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 which has been held since his retroperitoneal hemorrhage He has now had 2 retroperitoneal hemorrhages Continue to hold Coumadin Could consider IVC filter-asked him to discuss with his primary team when he sees them in the near future to discuss the most recent retroperitoneal hematoma in light of possible need for left nephrectomy as above (11) GERD (gastroesophageal reflux disease): Plan: Continue Protonix Admission and Anticipated Discharge Date Admission Date: December 27, 2021 Subjective Follow-up of original presentation with abdominal pain, fever, weakness- symptomatically doing well Physical Exam Physical Exam: Constitutional and general: No acute distress, looks biologic age Head and face: No puffiness, atraumatic Eyes: No scleral icterus, extraocular movements normal Neck: Supple, no JVD Musculoskeletal: No acute joint swelling, no bony abnormalities Skin/dermatologic/integument: No rash, no purpura Hematologic and lymphatic: pallor +, no petechia Gastrointestinal/abdomen:soft, nonacute Neurologic: Cranial nerves intact, nonfocal Psychiatry: Awake, alert, pleasant, communicative Cardiovascular: Heart rhythm regular, no rub, systolic murmur about 2 x 6, no gallop Respiratory: Chest movements equal, no use of accessory muscles, no adventitious sounds Extremities: No edema, no cyanosis Results & Data Results & Data ([facility]) Vital Signs (Past 12 Hours) Vital Signs Temp Pulse Pulse Resp BP Pulse Ox O2 Del Method 01/02/22 14:36 181/97 H 01/02/22 11:46 36.4 C L 82 19 177/93 H 98 Room Air 01/02/22 07:23 60 01/02/22 06:59 36.6 C 67 18 152/84 H 96 01/02/22 03:33 37.0 C 66 18 163/95 H 97 Room Air PG Care Time/CCT Total # of Minutes Spent Total Time Spent with Patient: Total time spent is greater than 50% in coordination of care (as documented) at patient's floor/unit and/or counseling patient: Coding Level of Care Code 39901 Subseq Hosp Care Lvl 2 Diagnoses Aortic valve endocarditis I35.8 Enterococcal bacteremia R78.81; B95.2 History of renal transplant Z94.0 CKD (chronic kidney disease) stage 4, GFR 15-29 ml/min N18.4 Hypertension I10 Hypertension type: essential hypertension Obstructive sleep apnea G47.33 Peripheral neuropathy G62.9 Anemia D64.9 BPH (benign prostatic hyperplasia) N40.1; R39.11 Lower urinary tract symptom presence: symptoms present Lower urinary tract symptom detail: urinary hesitancy DVT (deep venous thrombosis) I82.409 DVT location: lower extremity Affected thrombotic vein of extremity: unspecified vein of extremity Chronicity: unspecified Laterality: unspecified laterality GERD (gastroesophageal reflux disease) K21.9 (1) Hypertension Hypertension type: essential hypertension Qualified Code(s): I10 - Essential (primary) hypertension (2) BPH (benign prostatic hyperplasia) Lower urinary tract symptom presence: symptoms present Lower urinary tract symptom detail: urinary hesitancy Qualified Code(s): N40.1 - Benign prostatic hyperplasia with lower urinary tract symptoms; R39.11 - Hesitancy of micturition (3) DVT (deep venous thrombosis) DVT location: lower extremity Affected thrombotic vein of extremity: unspecified vein of extremity Chronicity: unspecified Laterality: unspecified laterality Qualified Code(s): I82.409 - Acute embolism and thrombosis of unspecified deep veins of unspecified lower extremity
[2022-01-02] MEDS ORDERED: FUROSEMIDE 40 MG TAB PO ONE (15:02)
--- NOTE | 2022-01-02 15:10 | Nephrology Progress Note ---
Date of Service January 02, 2022 Assessment & Plan (1) CKD (chronic kidney disease) stage 4, GFR 15-29 ml/min: (2) Hypertension: Plan member of technical staff contacted Nephrology via [place] [facility] for recommendation to improve BP. Most recent BP 181/97. Cr stable 2.8, K 4.8, Na 139. UO has not been measured. Weight has risen from 119 to 123 kg this hospitalization. Will continue Losartan 50 mg po daily as patient had been on. He also has Furosemide for PRN use. Furosemide 40 mg po x 1 ordered. member of technical staff reports that patient is preparing for discharge to home. Admission and Anticipated Discharge Date Admission Date: December 27, 2021 Results & Data ([facility]) Vital Signs (Past 12 Hours) Vital Signs Temp Pulse Pulse Resp BP Pulse Ox O2 Del Method 01/02/22 14:36 181/97 H 01/02/22 11:46 36.4 C L 82 19 177/93 H 98 Room Air 01/02/22 07:23 60 01/02/22 06:59 36.6 C 67 18 152/84 H 96 01/02/22 03:33 37.0 C 66 18 163/95 H 97 Room Air Coding Level of Care Code None Diagnoses CKD (chronic kidney disease) stage 4, GFR 15-29 ml/min N18.4 Hypertension I10 Hypertension type: essential hypertension (1) Hypertension Hypertension type: essential hypertension Qualified Code(s): I10 - Essential (primary) hypertension
[2022-01-02] MEDS: TAMSULOSIN HCL 0.4 MG CAP PO SCH (20:21)
[2022-01-03] MEDS: AMPICILLIN 2,000 MG in 0.9 % SODIUM CHLORIDE 100 ML IV SCH ×2 (01:15→08:37)
--- NOTE | 2022-01-03 08:24 | Discharge Summary ---
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 Patient was recently hospitalized in the ICU at [facility] (12/02 - 12/06/21) for a left retroperitoneal hematoma. Patient received 3u pRBC, 2u platelets, and vitamin K 10mg while at [facility], in addition to multiple transfusions he had at [facility] prior to his transfer. At [facility], his Hgb was trended, and patient was discharged once labs and symptoms stabilized. Of note, patient was on warfarin prior to his [facility] admission for his history of DVT/PE (last dose 12/01/21); however, this was discontinued while hospitalized for retroperitoneal bleed. Warfarin was intentionally not restarted upon discharge, with further decisions about restarting it deferred to patient's PCP. As noted above, patient presents to [facility] today with a four-day history of fever, diarrhea, abdominal pain, and poor appetite. Patient also notes dark tarry stools which have continued since discharge from [facility]. Patient has had a mild intermittent fever with a Tmax of 100.7. Patient's diarrhea has been relatively mild (1-4 episodes per day) and seem to be triggered by eating; patient has not eaten in the past 24 hours and has only had one loose BM in that time period. Abdominal pain is mild (~3/10), bilateral but worse L>R, and sometimes radiates to the back. Denies nausea, vomiting, changes in vision, CP, SOB, dysuria, hematuria, lightheadedness, dizziness, or weakness. Denies lower extremity pain or swelling. Principal Diagnosis Aortic valve enterococcal endocarditis Discharge Exam Constitutional and general: No acute distress, looks biologic age Cardiovascular: Heart rhythm regular, no rub, systolic murmur about 2 x 6, no gallop Abdomen benign Discharge Data Allergies Allergy/AdvReac Type Severity Reaction Status Date / Time allopurinol Allergy Unknown Rash Verified 12/25/21 14:10 hydromorphone [From Dilaudid] AdvReac Severe confusion Verified 12/25/21 14:10 Consultations 12/25/21 19:29 ED Decision to Admit Stat 12/26/21 07:55 Consult Nephrology Routine 12/26/21 07:57 Consult Infectious Diseases Routine 12/27/21 10:19 Consult Urology Routine 12/30/21 17:12 Consult Anesthesiology Routine Procedures Performed Operation Date: 12/31/21 10:15 Actual Procedures p Echo Transesophageal - Manuel Sanchez MD Ordered Studies 12/25/21 17:03 CT abd pelvis wo con Stat 12/25/21 17:45 US venous duplex leg [US venous doppler LE BI] Stat Hospital Course (1) Aortic valve endocarditis: Ampicillin plus Rocephin through 02/07/2020 (2) Enterococcal bacteremia: Enterococcal endocarditis, 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 3 times daily due to renal function-patient is agreeable to this as the increased dose of duloxetine has improved his neuropathy (8) Anemia: Hemoglobin stable per last check, LLOYD per nephrology (9) BPH (benign prostatic hyperplasia): Making urine without difficulty emptying Continue home tamsulosin (10) DVT (deep venous thrombosis): 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 which has been held since his retroperitoneal hemorrhage He has now had 2 retroperitoneal hemorrhages Outpatient vascular surgery to discuss IVC filter-at present would not pursue given endocarditis (11) GERD (gastroesophageal reflux disease): Continue Protonix (12) Retroperitoneal hematoma: Consider weekly imaging as suggested by infectious disease though not sure it would loom changer; hold aspirin for nowdiscuss at outpatient follow-up with PCP Plan Urology follow-up for elevated PSA Total Time Total Time Spent Total Time Spent (In Minutes): 35 Discharge Plan Discharge Items Patient Disposition: Home - Home Health Services Reason For Visit: FEVER, DIARRHEA, ABDOMINAL PAIN Discharge Diagnosis: Aortic valve endocarditis Activity: As commented below Activity Comment: as tolerated Lifting: Wait until after follow-up appointment Non-emergency contact: Primary Care Provider Call non-emergency contact if: your symptoms worsen Follow-up/Referrals: Vinicius Ng MD [Primary Care Provider] - (On or before 09 January, posthospitalization, complex case) Srikanth Aguilera DO [Physician] - (Within 1 week) Manish Perkins MD [Physician] - (History of DVT and retroperitoneal hematoma; discussion for IVC filter and opinion) Karthik Neff MD [Physician] - 02/05/22 9:40 am Diet: Heart Healthy and Low Potassium (2gm) Addtl Attending Provider Instructions: Discuss resumption of aspirin with your primary doctor. Discuss obtaining imaging (either ultrasound or CT scan) of blood in the abdomen near the back (called retroperitoneal) about once a week with your primary doctor Pending Studies at Discharge: No Stand-Alone Forms: My [facility], Smoking Cessation Medications and DC Order Prescriptions: Continued omeprazole 40 mg capsule,delayed release(DR/EC) 40 mg PO QAM Qty: 90 3RF losartan 50 mg tablet 50 mg PO DAILY Qty: 90 3RF mycophenolate mofetil [CellCept] 250 mg capsule 1,000 mg PO BID febuxostat [Uloric] 80 mg tablet 80 mg PO QAM tamsulosin [Flomax] 0.4 mg capsule 0.4 mg PO HS docusate sodium [Colace] 100 mg capsule 100 mg PO BID PRN (Reason: Constipation) multivitamin [Daily Multi-Vitamin] tablet 1 tab PO QAM cholecalciferol (vitamin D3) 1,000 unit capsule 1,000 units PO QAM prednisone 5 mg tablet 5 mg PO QAM cyclosporine 100 mg capsule 150 mg PO BID gabapentin [Neurontin] 300 mg capsule 600 mg PO .AM & AFTERNOON Rx Instructions: TAKE TWO CAPSULES EVERY MORNING AND AFTERNOON. duloxetine 60 mg capsule,delayed release(DR/EC) 60 mg PO QAM Qty: 90 3RF magnesium oxide 400 mg magnesium capsule 800 mg PO BID albuterol sulfate 90 mcg/actuation HFA aerosol inhaler 2 inha INH Q6H PRN (Reason: shortness of breath or wheezing) Qty: 1 0RF ferrous sulfate [iron] 325 mg (65 mg iron) Tablet 325 mg PO BID acetaminophen [Tylenol Extra Strength] 500 mg Tablet 1,000 mg PO QID PRN (Reason: Pain) gabapentin 300 mg Capsule 900 mg PO HS Rx Instructions: TAKE THREE CAPSULES AT BEDTIME furosemide [Lasix] 40 mg tablet 60 mg PO QAM PRN (Reason: Edema) Discontinued aspirin [Adult Low Dose Aspirin] 81 mg tablet,delayed release (DR/EC) 81 mg PO QAM Discharge Orders: Discharge Order (Routine); Ordered 01/03/22 Ordered By: Arcenio Alicia Admission Data Admit Date/Time: 12/27/21 09:17 Attending Provider: Arcenio Alicia Admit Provider: Vincent Chacon Primary Care Provider: Vinicius Ng Other Providers: Aicha Nava ; Srikanth Aguilera ; Delta [place] ; Vashti Suarez ; Joni Nava I. ; Garret Chau II ; Heather Vargas ; Dillon Frances ; Misha Hartley ; Karthik Neff ; Aniya Zafar ; Onelia Valencia ; Maria Elena Wong ; Brea Brito ; Elzbieta Diggs ; Sarwat Lopes ; Jason Welch ; Hiram Montanez ; Joao Adler ; Bella Adler ; Keyshawn Carvajal ; Breanna Ayala ; Basim Finn ; Sean Perdomo ; Casey Oliva ; Vicente Cuellar ; Disha Pryor ; Dillon Connolly ; Corrie Santos ; Olamide Connolly ; Ralph Alejandra ; Angelica Barber ; Best Jha ; Noemi Wilson ; Samina Lozada ; Saira Flores ; Rahul Ghosh ; Aicha Sun ; Анна Bro ; Ofelia Morales ; Sarah Moran ; Cooper Moran V ; Familia Chopra ; Maria Elena Sandoval ; Deepak Wesley ; Lucy Marshall ; Cooper Goncalves ; Imtiaz Pryor ; Mega Wheeler ; Trini Taylor ; Lena Aldridge ; Cooper Bocanegra ; Evan Bray ; Cheng Cuellar ; Carol Bass ; Gian Schultz Bethani L. ; Ibrahima Middleton ; Gian Mike ; Sarwat Russell Jr ; Mckenzie Boone ; Ghada Mora ; Elisabeth Jose ; Rahul Chapman ; Elzbieta Mendosa ; Joao Suárez ; Sandeep Summers I. ; Haley Do ; Counts Include [facility] Coding Level of Care Code D/C DAY MANAGEMENT >30 MINS Diagnoses Aortic valve endocarditis I35.8 Enterococcal bacteremia R78.81; B95.2 History of renal transplant Z94.0 CKD (chronic kidney disease) stage 4, GFR 15-29 ml/min N18.4 Hypertension I10 Hypertension type: essential hypertension Obstructive sleep apnea G47.33 Peripheral neuropathy G62.9 Anemia D64.9 BPH (benign prostatic hyperplasia) N40.1; R39.11 Lower urinary tract symptom detail: urinary hesitancy Lower urinary tract symptom presence: symptoms present DVT (deep venous thrombosis) I82.409 Affected thrombotic vein of extremity: unspecified vein of extremity Chronicity: unspecified DVT location: lower extremity Laterality: unspecified laterality GERD (gastroesophageal reflux disease) K21.9 Retroperitoneal hematoma K66.1
[2022-01-03] MEDS ORDERED: FUROSEMIDE 40 MG TAB PO ONE (08:25)
[2022-01-03] MEDS: cefTRIAXone SODIUM 2,000 MG in DEXTROSE 5% 50 ML IV SCH (09:23)
[2022-01-03] MEDS: FERROUS SULFATE 325 MG TAB PO SCH (09:23)
[2022-01-03] MEDS: cycloSPORINE (SANDIMMUNE) 25 MG CAP PO SCH (09:23)
[2022-01-03] MEDS: cycloSPORINE 100 MG CAP PO SCH (09:23)
[2022-01-03] MEDS: DULoxetine HCL 60 MG CAP PO SCH (09:23)
[2022-01-03] MEDS: PANTOprazole 40 MG TAB PO SCH (09:23)
[2022-01-03] MEDS: predniSONE 5 MG TAB PO SCH (09:23)
[2022-01-03] MEDS: SACCHAROMYCES BOULARDII 250 MG CAP PO SCH (09:24)
[2022-01-03] MEDS: GABAPENTIN 600 MG TAB PO SCH (09:24)
[2022-01-03] MEDS: FEBUXOSTAT PO SCH (09:24)
[2022-01-03] MEDS: LOSARTAN POTASSIUM 50 MG TAB PO SCH (09:24)
[2022-01-03] MEDS: MYCOPHENOLATE MOFETIL 250 MG CAP PO SCH (09:24)
[2022-01-03] MEDS: MAGNESIUM OXIDE 400 MG TAB PO SCH (09:26)
== END 2022-01-03 10:32 | disposition home health service (06) | DRG 871 ==
LOC: EDINP 16:50 → ED 16:50 → SUATTDRO 21:38 → 2E 22:38 → SUATTDRO 12-27 09:17
DX: Z86.711 Personal history of pulmonary embolism; T86.19 Other complication of kidney transplant; G47.33 Obstructive sleep apnea (adult) (pediatric); N18.4 Chronic kidney disease, stage 4 (severe); A41.81 Sepsis due to Enterococcus; Z20.822 Contact with and (suspected) exposure to COVID-19; R19.7 Diarrhea, unspecified; N17.0 Acute kidney failure with tubular necrosis; I33.0 Acute and subacute infective endocarditis; E80.6 Other disorders of bilirubin metabolism; Z88.8 Allergy status to other drugs, medicaments and biological substances; K66.1 Hemoperitoneum; R82.71 Bacteriuria; G62.9 Polyneuropathy, unspecified; Z79.52 Long term (current) use of systemic steroids; Z88.0 Allergy status to penicillin; Z79.82 Long term (current) use of aspirin; Z86.718 Personal history of other venous thrombosis and embolism; N40.0 Benign prostatic hyperplasia without lower urinary tract symptoms; Z88.5 Allergy status to narcotic agent; E86.0 Dehydration; D84.821 Immunodeficiency due to drugs; I10 Essential (primary) hypertension; K21.9 Gastro-esophageal reflux disease without esophagitis; Z79.899 Other long term (current) drug therapy; D62 Acute posthemorrhagic anemia; N04.1 Nephrotic syndrome with focal and segmental glomerular lesions

== ENCOUNTER 2022-02-25 22:36 | Inpatient (IN) ==
[2022-02-25 23:00] LABS: iSTAT Creatinine 3.3 mg/dl (0.6-1.3); iSTAT Hemoglobin 11.2 g/dl (14.0-18.0); iSTAT Ionized Calcium 1.22 mmol/l (1.12-1.32); iSTAT Potassium 3.7 mmol/L (3.3-5.0)
[2022-02-25] MEDS ORDERED: SODIUM CHLORIDE 0.9% 1000ML 1,000 ML IV ONE (23:01)
[2022-02-25] MEDS ORDERED: CEFEPIME 2,000 MG/20 ML VIAL IV STA (23:01)
--- NOTE | 2022-02-25 23:15 | Emergency Department Note ---
Impression & Plan Sepsis, History of kidney transplant, Immunocompromised, Lethargy, Leukocytosis, Creatinine elevation ED Provider Note NAME: NAN MONTE AGE: 61 SEX: M : 1960 ARRIVES VIA: Ambulance INFORMANT: [Patient] ED PROVIDER(S): [Mark Sutehrland MD] CHIEF COMPLAINT: Weakness HISTORY OF PRESENT ILLNESS: The patient is a 61-year-old male with a history of renal transplant and retroperitoneal bleeding. He is not currently on any anticoagulation. As per the notes on the computer system, the patient had some prostate biopsies performed yesterday. The patient states that today, a few hours ago, he began having some diffuse abdominal pain, chills and just felt awful. He was quite fatigued. His blood pressure was low. The patient denies any difficulty with urination. He denies any diarrhea. There has been no cough or congestion or shortness of breath. REVIEW OF SYSTEMS: See HPI for pertinent positives and negatives. A total of ten systems were reviewed and were otherwise negative. PMHx/PSHx: See Below SOCIAL HISTORY: See Below. PHYSICAL EXAM: GENERAL: Patient is in mild distress, ill-appearing. HEENT: No acute trauma, normocephalic atraumatic, mucous membranes moist, no nasal congestion, no scleral icterus. NECK: No stridor, no adenopathy, no meningismus, trachea is midline. LUNGS: Clear to auscultation bilaterally, no wheeze, no rhonchi, breath sounds equal. HEART: Without murmurs gallops or rubs, regular rate and rhythm. Heart tones were quite distant. ABDOMEN: Soft, mildly diffusely tender, no peritonitis. EXTREMITIES: No cyanosis, chronic bilateral pedal edema. No extremity deformities. NEUROLOGIC: Oriented x 3, no acute motor or sensory deficits, no focal weakness. Appears tired and diffusely weak. No speech slur. SKIN: No rash, no jaundice, no diaphoresis. DIFFERENTIAL DIAGNOSIS: Sepsis, UTI, pneumonia, COVID-19, metabolic abnormality, electrolyte abnormalities, cardiac sources, cellulitis, bacteremia, intracerebral event, toxicologic etiology, neurologic event, as well as other pathologies. EMERGENCY DEPARTMENT COURSE/PROCEDURES: ECG: Indication was possible sepsis. The ECG shows a sinus tachycardia with a right bundle branch block. There is significant baseline artifact. The rate is 102. There is no ST elevation, no PVCs. The QTc is 463. Continuous Cardiac Monitoring: An order was placed for continuous cardiac monitoring. The monitor shows a rate of 99 with sinus rhythm. Critical Care Note: I have personally spent 52 minutes of critical care time in the direct management of this patient. This includes bedside care, interpretation of diagnostic studies, and testing, discussion with consultants, patient, and family members, and other required patient management activities. This 52 minutes is in excess of all separately billable procedures. MEDICAL DECISION MAKING: There was a moderate leukocytosis which would be consistent with infection. The patient was anemic although, his hemoglobin value was actually above his typical values. Platelet count was normal. There was an elevation to the patient's creatinine although, this appears to be about at baseline. Lactic acid level was not elevated making severe sepsis less likely. No concerning liver enzyme elevation. Troponin was slightly elevated at 22, this could be secondary misma tch or cardiac injury. ECG showed sinus tachycardia with a right bundle branch block. No acute ST elevation. Procalcitonin level was elevated consistent with bacterial infection. Urinalysis returned suspicious for infection. Chest x-ray showed some parenchymal congestion and possible mild CHF but no obvious pneumonia. Abdominal and pelvis CT did not show any urinary obstruction. His renal hematoma and retroperitoneal bleeding seems to have improved. No free air. Respiratory bio fire was completely negative. On exam, the patient had a lower blood pressure and appeared tired and ill. The patient was aggressively managed given his complaints and history. He was given IV Tylenol, IV cefepime. He received IV daptomycin. He received 2 L of IV saline. The patient did not receive any additional IV fluids while under my care as his chest x-ray did suggest some fluid overload/CHF. The patient's blood pressure is adequate. He is not in need of pressor therapy currently. The patient is in need of a hospital stay as he is septic. The source is unclear but possibly related to the recent prostate biopsy. The patient has a complicated past history and recently finished treatment for endocarditis. He was apparently doing fairly well up until just prior to arrival. I talked to the patient and his family, I did consult case management. The on- call hospitalist has been consulted. Past Med/Surg History Medical History Abdominal pain Acute on chronic renal failure Anemia AV fistula LEFT WRIST> NO DIALYSIS CURRENTLY> [facility]A STILL WORKS PER PT Diarrhea Diarrhea DVT (deep venous thrombosis) Right- 04/2019 following transplant > Coumadin S/P LEFT LEG SURGERY (EXCISION OF MELANOMA LEFT LEG) 10 YEARS AGO. Encounter for pre-operative examination Enterococcal bacteremia Family history of blood clots Focal glomerular sclerosis Gout History of basal cell carcinoma History of malignant melanoma of skin Hypertension Influenza A Nephrolithiasis Pneumonia due to COVID-19 virus Rectus sheath hematoma Renal transplant recipient Retroperitoneal hematoma Sarcoidosis Umbilical hernia Venous insufficiency Venous stasis dermatitis Surgical History H/O colonoscopy History of cardiac cath 01/2018 > [facility] > NO STENTS History of melanoma excision left calf History of tonsillectomy History of tooth extraction Kidney transplanted APR 04, 2019 > [facility] [place] > right side Family History Mother Stroke Heart disease Grandmother Cancer Lung disease Denies family history of Ovarian cancer Prostate cancer Colorectal cancer Social History Smoking Status: Never smoker Second Hand Exposure: No; Hx Alcohol Use: No Hx Substance Use: No Preferred Language: Kazakh Communication Ability: Effective Dairy Scientist Required: No Beliefs That Will Affect Care: None marital status: Current Living Situation: Spouse Current Living Situation Comment: living with . current occupational status: employed current occupation: [employer] How many Children do You have: 1 Feels Safe at Home: Yes caffeine: Yes Dental Care, Regularly: Yes Seatbelt Use: always Sunscreen Use: Yes Assistive Devices: Glasses Allergies Allergies Allergy/AdvReac Type Severity Reaction Status Date / Time allopurinol Allergy Unknown Rash Verified 02/26/22 01:10 hydromorphone [From Dilaudid] AdvReac Severe confusion Verified 02/26/22 01:10 Home Meds Home Medications Medication Instructions Recorded Confirmed cholecalciferol (vitamin D3) 25 1,000 units PO QAM 04/24/19 02/26/22 mcg (1,000 unit) capsule docusate sodium 100 mg capsule 100 mg PO BID PRN Constipation 04/24/19 02/26/22 (Colace) multivitamin (Daily Multi-Vitamin 1 tab PO QAM 04/24/19 02/26/22 tablet) tamsulosin 0.4 mg capsule (Flomax) 0.4 mg PO HS 04/24/19 02/26/22 prednisone 5 mg tablet 5 mg PO QAM 05/29/19 02/26/22 mycophenolate mofetil 250 mg 1,000 mg PO BID 02/20/20 02/26/22 capsule (CellCept) febuxostat 80 mg tablet (Uloric) 80 mg PO QAM 03/06/20 02/26/22 magnesium oxide 800 mg PO BID 06/16/21 02/26/22 ferrous sulfate 325 mg (65 mg 325 mg PO BID 08/05/21 02/26/22 iron) tablet (iron) gabapentin 300 mg capsule 600 mg PO .AM & AFTERNOON 08/22/21 02/26/22 (Neurontin) acetaminophen 500 mg tablet 1,000 mg PO QID PRN Pain 08/24/21 02/26/22 (Tylenol Extra Strength) gabapentin 300 mg capsule 900 mg PO HS 11/17/21 02/26/22 furosemide 40 mg tablet (Lasix) 60 mg PO QAM PRN Edema 12/25/21 02/26/22 cyclosporine modified 100 mg 100 mg PO BID 02/26/22 02/26/22 capsule Previous Rx's Medication Instructions Recorded omeprazole 40 mg capsule,delayed 40 mg PO QAM #90 caps 04/29/21 release duloxetine 60 mg capsule,delayed 60 mg PO QAM #90 caps 11/13/21 release losartan 50 mg tablet 50 mg PO DAILY #90 tabs 12/15/21 propranolol 10 mg tablet 10 mg PO BID #60 tabs 02/13/22 Results & Data (ED) Vital Signs Vital Signs - 24 hr 02/25/22 22:38 02/25/22 22:49 02/25/22 22:51 Temperature 37.5 C Temperature Source Oral Pulse Rate 103 H Pulse Rate [Finger] 99 H Pulse Rhythm [Finger] Regular Pulse Strength [Finger] Normal Respiratory Rate 18 28 H Respiratory Effort / Characteristics Non-Labored Spontaneous Non-Labored Spontaneous Respiratory Depth Normal Normal Respiratory Pattern Regular Regular Blood Pressure 99/66 L Blood Pressure [Right Arm] 113/61 Blood Pressure Mean 77 Blood Pressure Mean [Right Arm] 78 Blood Pressure Position [Right Arm] Pulse Oximetry 96 93 Oxygen Delivery Method Room Air Room Air Room Air Sepsis Recent Fever Within 48 Hours No Sepsis New/Unexplained Change in Mental Status No Sepsis Action Taken by Nursing Physician Notified 02/25/22 23:28 02/25/22 23:28 02/25/22 23:35 Temperature Temperature Source Pulse Rate Pulse Rate [Finger] 98 H 99 H Pulse Rhythm [Finger] Regular Pulse Strength [Finger] Normal Respiratory Rate 21 24 Respiratory Effort / Characteristics Non-Labored Spontaneous Respiratory Depth Normal Respiratory Pattern Blood Pressure Blood Pressure [Right Arm] 119/70 121/68 Blood Pressure Mean Blood Pressure Mean [Right Arm] 86 85 Blood Pressure Position [Right Arm] Sitting Pulse Oximetry 95 98 96 Oxygen Delivery Method Room Air Room Air Sepsis Recent Fever Within 48 Hours Sepsis New/Unexplained Change in Mental Status Sepsis Action Taken by Nursing 02/26/22 00:52 02/26/22 01:18 02/26/22 01:28 Temperature 37.4 C Temperature Source Oral Pulse Rate Pulse Rate [Finger] 96 H 94 H 94 H Pulse Rhythm [Finger] Regular Regular Regular Pulse Strength [Finger] Normal Normal Normal Respiratory Rate 21 21 23 Respiratory Effort / Characteristics Non-Labored Spontaneous Non-Labored Spontaneous Non-Labored Spontaneous Respiratory Depth Normal Normal Normal Respiratory Pattern Regular Blood Pressure Blood Pressure [Right Arm] 100/66 82/50 L 100/59 L Blood Pressure Mean Blood Pressure Mean [Right Arm] 77 60 72 Blood Pressure Position [Right Arm] Pulse Oximetry 94 93 94 Oxygen Delivery Method Room Air Room Air Room Air Sepsis Recent Fever Within 48 Hours Sepsis New/Unexplained Change in Mental Status Sepsis Action Taken by Nursing 02/26/22 01:37 Temperature Temperature Source Pulse Rate Pulse Rate [Finger] 93 H Pulse Rhythm [Finger] Regular Pulse Strength [Finger] Normal Respiratory Rate 21 Respiratory Effort / Characteristics Non-Labored Spontaneous Respiratory Depth Normal Respiratory Pattern Regular Blood Pressure Blood Pressure [Right Arm] 101/56 L Blood Pressure Mean Blood Pressure Mean [Right Arm] 71 Blood Pressure Position [Right Arm] Pulse Oximetry 92 Oxygen Delivery Method Room Air Sepsis Recent Fever Within 48 Hours Sepsis New/Unexplained Change in Mental Status Sepsis Action Taken by [facility]-Way Medications Current Medication List: was personally reviewed by me Laboratory Data Attestation: I reviewed the patient's lab results. Result diagrams: 02/26/22 11:51 02/26/22 11:51 Lab Results 02/25/22 02/25/22 02/25/22 Range/Units 22:44 22:44 22:44 WBC 14.52 H (4.8-10.8) K/ul RBC 3.68 L (4.63-6.08) M/uL Hgb 11.1 L (14.0-18.0) g/dl POC Hgb (14.0-18.0) g/dl Hct 34.4 L (40.1-51.0) % POC Hct (42-52) % MCV 93.5 (80.0-100.0) fL MCH 30.2 (25.0-34.0) pg MCHC 32.3 (32.0-36.0) g/dL RDW Std Deviation 52.3 H (36.4-46.3) fL RDW Coeff of Theresa 15.2 H (11.5-14.5) % Plt Count 195 (130-400) K/uL MPV 10.7 (9.4-12.4) fL Immature Gran % (Auto) 0.4 % Neut % (Auto) 96.5 % Lymph % (Auto) 0.6 % [place] % (Auto) 1.4 % Eos % (Auto) 0.8 % Baso % (Auto) 0.3 % Neut # (Auto) 14.01 H (1.4-6.5) K/uL Lymph # (Auto) 0.08 L (1.2-3.4) K/uL [place] # (Auto) 0.21 L (0.24-0.82) K/uL Eos # (Auto) 0.12 (0-0.50) K/uL Baso # (Auto) 0.04 (0-0.2) K/uL Immature Gran # (Auto) 0.06 H (0.00-0.02) K/uL POC Sodium (135-144) mmol/L Sodium 136 (136-145) mmol/L POC Potassium (3.3-5.0) mmol/L Potassium 3.7 (3.5-5.1) mmol/L POC Chloride (101-112) mmol/L Chloride 103 (98-107) mmol/L Carbon Dioxide 20 L (21-32) mmol/L POC Total CO2 (24-31) mmol/L Anion Gap 13 H (3-11) POC Anion Gap (16-25) mmol/L POC BUN (7-18) mg/dl BUN 93 H (6-23) mg/dl Creatinine 3.24 H (0.6-1.4) mg/dl POC Creatinine (0.6-1.3) mg/dl Est Cr Clr Drug Dosing 32.1 ml/min Est GFR ( Amer) 22.8 ml/min Est GFR (Non-Af Amer) 19.7 ml/min BUN/Creatinine Ratio 28.7 H (10-20) Glucose 91 (70-99(Fasting)) mg/dl POC Glucose (other) (70-99) mg/dl Lactate (0.4-2.0) mmol/L Calcium 9.7 (8.5-10.1) mg/dl POC Ioniz Calcium [place] (1.12-1.32) mmol/l Magnesium 1.8 (1.7-2.4) mg/dl Total Bilirubin 0.9 (0.2-1.0) mg/dl Direct Bilirubin 0.3 H (0-0.2) mg/dl AST 18 (13-39) U/L ALT 12 (7-52) U/L Alkaline Phosphatase 113 H (34-104) U/L Troponin I High Sens 22.0 H D (0-20) pg/ml Total Protein 7.2 (6.0-8.3) gm/dl Albumin 4.3 (3.4-5.0) gm/dl Procalcitonin 4.30 H (0-0.5) ng/ml Random Cortisol mcg/dl Urine Color Urine Appearance (Clear) Urine pH (4.5-7.5) Ur Specific [place] (1.000-1.030) Urine Protein (Negative) Urine Glucose (UA) (Negative) Urine Ketones (Negative) Urine Blood (Negative) Urine Nitrite (Negative) Urine Bilirubin (Negative) Urine Urobilinogen (Negative) Ur Leukocyte Esterase (Negative) Urine WBC (Auto) (0-5) /hpf Urine RBC (Auto) (0-4) /hpf U Hyaline Cast (Auto) (0-5) /lpf U Epithel Cells (Auto) (0-5) /lpf Urine Bacteria (Auto) (Negative) Adenovirus (PCR) (NotDetected) B. pertussis DNA (PCR) (NotDetected) B.parapertussis DNA PCR (NotDetected) C. pneumoniae DNA (PCR) (NotDetected) Coronavirus OC43 (PCR) (NotDetected) Coronavirus HKU1 (PCR) (NotDetected) Coronavirus 229E (PCR) (NotDetected) SARS-CoV-2 (PCR) (NotDetected) Coronavirus NL63 (PCR) (NotDetected) Enterobacterales (PCR) (NotDetected) E. coli (PCR) (NotDetected) Human Metapneumovir PCR (NotDetected) Influenza Type A (PCR) (NotDetected) Influenza Type B (PCR) (NotDetected) M. pneumoniae (PCR) (NotDetected) Parainfluenza 1 (PCR) (NotDetected) Parainfluenza 2 (PCR) (NotDetected) Parainfluenza 3 (PCR) (NotDetected) Parainfluenza 4 (PCR) (NotDetected) RSV (PCR) (NotDetected) Entero/Rhino (PCR) (NotDetected) mcr-1 Colistin Res Gene PCR (NotDetected) blaIMP Car res Gene PCR (NotDetected) KPC-Carbap Res Gene PCR (NotDetected) blaNDM Car Res Gene PCR (NotDetected) OXA-48 Carbapenem Resis Gene (PCR) (NotDetected) blaVIM Car Res Gene PCR (NotDetected) CTX-M Gene Resistance (PCR) (NotDetected) Bld Cult ID Panel PCR (NotDetected) 02/25/22 02/25/22 02/25/22 Range/Units 22:44 22:48 23:07 WBC (4.8-10.8) K/ul RBC (4.63-6.08) M/uL Hgb (14.0-18.0) g/dl POC Hgb 11.2 L (14.0-18.0) g/dl Hct (40.1-51.0) % POC Hct 33 L (42-52) % MCV (80.0-100.0) fL MCH (25.0-34.0) pg MCHC (32.0-36.0) g/dL RDW Std Deviation (36.4-46.3) fL RDW Coeff of Theresa (11.5-14.5) % Plt Count (130-400) K/uL MPV (9.4-12.4) fL Immature Gran % (Auto) % Neut % (Auto) % Lymph % (Auto) % [place] % (Auto) % Eos % (Auto) % Baso % (Auto) % Neut # (Auto) (1.4-6.5) K/uL Lymph # (Auto) (1.2-3.4) K/uL [place] # (Auto) (0.24-0.82) K/uL Eos # (Auto) (0-0.50) K/uL Baso # (Auto) (0-0.2) K/uL Immature Gran # (Auto) (0.00-0.02) K/uL POC Sodium 139 (135-144) mmol/L Sodium (136-145) mmol/L POC Potassium 3.7 (3.3-5.0) mmol/L Potassium (3.5-5.1) mmol/L POC Chloride 105 (101-112) mmol/L Chloride (98-107) mmol/L Carbon Dioxide (21-32) mmol/L POC Total CO2 20 L (24-31) mmol/L Anion Gap (3-11) POC Anion Gap 19.0 (16-25) mmol/L POC BUN 104 H* (7-18) mg/dl BUN (6-23) mg/dl Creatinine (0.6-1.4) mg/dl POC Creatinine 3.3 H (0.6-1.3) mg/dl Est Cr Clr Drug Dosing ml/min Est GFR ( Amer) ml/min Est GFR (Non-Af Amer) ml/min BUN/Creatinine Ratio (10-20) Glucose (70-99(Fasting)) mg/dl POC Glucose (other) 97 (70-99) mg/dl Lactate 1.5 (0.4-2.0) mmol/L Calcium (8.5-10.1) mg/dl POC Ioniz Calcium [place] 1.22 (1.12-1.32) mmol/l Magnesium (1.7-2.4) mg/dl Total Bilirubin (0.2-1.0) mg/dl Direct Bilirubin (0-0.2) mg/dl AST (13-39) U/L ALT (7-52) U/L Alkaline Phosphatase (34-104) U/L Troponin I High Sens (0-20) pg/ml Total Protein (6.0-8.3) gm/dl Albumin (3.4-5.0) gm/dl Procalcitonin (0-0.5) ng/ml Random Cortisol 17.01 mcg/dl Urine Color Urine Appearance (Clear) Urine pH (4.5-7.5) Ur Specific [place] (1.000-1.030) Urine Protein (Negative) Urine Glucose (UA) (Negative) Urine Ketones (Negative) Urine Blood (Negative) Urine Nitrite (Negative) Urine Bilirubin (Negative) Urine Urobilinogen (Negative) Ur Leukocyte Esterase (Negative) Urine WBC (Auto) (0-5) /hpf Urine RBC (Auto) (0-4) /hpf U Hyaline Cast (Auto) (0-5) /lpf U Epithel Cells (Auto) (0-5) /lpf Urine Bacteria (Auto) (Negative) Adenovirus (PCR) (NotDetected) B. pertussis DNA (PCR) (NotDetected) B.parapertussis DNA PCR (NotDetected) C. pneumoniae DNA (PCR) (NotDetected) Coronavirus OC43 (PCR) (NotDetected) Coronavirus HKU1 (PCR) (NotDetected) Coronavirus 229E (PCR) (NotDetected) SARS-CoV-2 (PCR) (NotDetected) Coronavirus NL63 (PCR) (NotDetected) Enterobacterales (PCR) (NotDetected) E. coli (PCR) (NotDetected) Human Metapneumovir PCR (NotDetected) Influenza Type A (PCR) (NotDetected) Influenza Type B (PCR) (NotDetected) M. pneumoniae (PCR) (NotDetected) Parainfluenza 1 (PCR) (NotDetected) Parainfluenza 2 (PCR) (NotDetected) Parainfluenza 3 (PCR) (NotDetected) Parainfluenza 4 (PCR) (NotDetected) RSV (PCR) (NotDetected) Entero/Rhino (PCR) (NotDetected) mcr-1 Colistin Res Gene PCR (NotDetected) blaIMP Car res Gene PCR (NotDetected) KPC-Carbap Res Gene PCR (NotDetected) blaNDM Car Res Gene PCR (NotDetected) OXA-48 Carbapenem Resis Gene (PCR) (NotDetected) blaVIM Car Res Gene PCR (NotDetected) CTX-M Gene Resistance (PCR) (NotDetected) Bld Cult ID Panel PCR (NotDetected) 02/25/22 02/25/22 02/26/22 Range/Units 23:07 23:34 00:57 WBC (4.8-10.8) K/ul RBC (4.63-6.08) M/uL Hgb (14.0-18.0) g/dl POC Hgb (14.0-18.0) g/dl Hct (40.1-51.0) % POC Hct (42-52) % MCV (80.0-100.0) fL MCH (25.0-34.0) pg MCHC (32.0-36.0) g/dL RDW Std Deviation (36.4-46.3) fL RDW Coeff of Theresa (11.5-14.5) % Plt Count (130-400) K/uL MPV (9.4-12.4) fL Immature Gran % (Auto) % Neut % (Auto) % Lymph % (Auto) % [place] % (Auto) % Eos % (Auto) % Baso % (Auto) % Neut # (Auto) (1.4-6.5) K/uL Lymph # (Auto) (1.2-3.4) K/uL [place] # (Auto) (0.24-0.82) K/uL Eos # (Auto) (0-0.50) K/uL Baso # (Auto) (0-0.2) K/uL Immature Gran # (Auto) (0.00-0.02) K/uL POC Sodium (135-144) mmol/L Sodium (136-145) mmol/L POC Potassium (3.3-5.0) mmol/L Potassium (3.5-5.1) mmol/L POC Chloride (101-112) mmol/L Chloride (98-107) mmol/L Carbon Dioxide (21-32) mmol/L POC Total CO2 (24-31) mmol/L Anion Gap (3-11) POC Anion Gap (16-25) mmol/L POC BUN (7-18) mg/dl BUN (6-23) mg/dl Creatinine (0.6-1.4) mg/dl POC Creatinine (0.6-1.3) mg/dl Est Cr Clr Drug Dosing ml/min Est GFR ( Amer) ml/min Est GFR (Non-Af Amer) ml/min BUN/Creatinine Ratio (10-20) Glucose (70-99(Fasting)) mg/dl POC Glucose (other) (70-99) mg/dl Lactate (0.4-2.0) mmol/L Calcium (8.5-10.1) mg/dl POC Ioniz Calcium [place] (1.12-1.32) mmol/l Magnesium (1.7-2.4) mg/dl Total Bilirubin (0.2-1.0) mg/dl Direct Bilirubin (0-0.2) mg/dl AST (13-39) U/L ALT (7-52) U/L Alkaline Phosphatase (34-104) U/L Troponin I High Sens (0-20) pg/ml Total Protein (6.0-8.3) gm/dl Albumin (3.4-5.0) gm/dl Procalcitonin (0-0.5) ng/ml Random Cortisol mcg/dl Urine Color Yellow Urine Appearance Cloudy A (Clear) Urine pH 5.0 (4.5-7.5) Ur Specific [place] 1.012 (1.000-1.030) Urine Protein 1+ H (Negative) Urine Glucose (UA) Negative (Negative) Urine Ketones Negative (Negative) Urine Blood 3+ H (Negative) Urine Nitrite Negative (Negative) Urine Bilirubin Negative (Negative) Urine Urobilinogen Negative (Negative) Ur Leukocyte Esterase 2+ H (Negative) Urine WBC (Auto) >30 H (0-5) /hpf Urine RBC (Auto) >30 H (0-4) /hpf U Hyaline Cast (Auto) 1-5 (0-5) /lpf U Epithel Cells (Auto) 5-10 H (0-5) /lpf Urine Bacteria (Auto) Negative (Negative) Adenovirus (PCR) Not Detected (NotDetected) B. pertussis DNA (PCR) Not Detected (NotDetected) B.parapertussis DNA PCR Not Detected (NotDetected) C. pneumoniae DNA (PCR) Not Detected (NotDetected) Coronavirus OC43 (PCR) Not Detected (NotDetected) Coronavirus HKU1 (PCR) Not Detected (NotDetected) Coronavirus 229E (PCR) Not Detected (NotDetected) SARS-CoV-2 (PCR) Not Detected (NotDetected) Coronavirus NL63 (PCR) Not Detected (NotDetected) Enterobacterales (PCR) DETECTED A (NotDetected) E. coli (PCR) DETECTED A (NotDetected) Human Metapneumovir PCR Not Detected (NotDetected) Influenza Type A (PCR) Not Detected (NotDetected) Influenza Type B (PCR) Not Detected (NotDetected) M. pneumoniae (PCR) Not Detected (NotDetected) Parainfluenza 1 (PCR) Not Detected (NotDetected) Parainfluenza 2 (PCR) Not Detected (NotDetected) Parainfluenza 3 (PCR) Not Detected (NotDetected) Parainfluenza 4 (PCR) Not Detected (NotDetected) RSV (PCR) Not Detected (NotDetected) Entero/Rhino (PCR) Not Detected (NotDetected) mcr-1 Colistin Res Gene PCR Not Detected (NotDetected) blaIMP Car res Gene PCR Not Detected (NotDetected) KPC-Carbap Res Gene PCR Not Detected (NotDetected) blaNDM Car Res Gene PCR Not Detected (NotDetected) OXA-48 Carbapenem Resis Gene (PCR) Not Detected (NotDetected) blaVIM Car Res Gene PCR Not Detected (NotDetected) CTX-M Gene Resistance (PCR) Not Detected (NotDetected) Bld Cult ID Panel PCR See PCR Comment (NotDetected) Administered Medications Duloxetine HCl (Duloxetine Hcl 60 Mg Cap) 60 mg PO QAM [facility] Stop: 03/28/22 08:59 Last Admin: 02/26/22 08:12 Dose: 60 mg Documented By: SANGEETA Gabapentin (Gabapentin 300 Mg Cap) 600 mg PO BID@0900,1400 [facility] Stop: 03/28/22 08:59 Last Admin: 02/26/22 08:13 Dose: 600 mg Documented By: SANGEETA Parenteral Electrolytes (Normosol-R) 1,000 mls @ 125 mls/hr IV .Q8H [facility] Stop: 03/28/22 03:44 Last Admin: 02/26/22 12:07 Dose: 125 mls/hr Documented By: Infusion: 02/26/22 11:45 Dose: 125 mls/hr Documented By: Admin: 02/26/22 03:45 Dose: 125 mls/hr Documented By: HEDY Hydrocortisone Sodium (Succinate 50 mg/ Syringe) 1 mls @ 4 mls/min IV Q8H [facility] Stop: 03/28/22 05:59 Last Admin: 02/26/22 05:29 Dose: 4 mls/min Documented By: HEDY Ceftriaxone Sodium 2,000 mg/ (Dextrose) 70 mls @ 140 mls/hr IV Q24H [facility] Stop: 03/12/22 11:59 Last Infusion: 02/26/22 12:48 Dose: 0 mls/hr Documented By: Admin: 02/26/22 12:05 Dose: 140 mls/hr Documented By: SANGEETA Mycophenolate Mofetil (Mycophenolate Mofetil 250 Mg Cap) 1,000 mg PO BID [facility] Stop: 03/28/22 08:59 Last Admin: 02/26/22 08:13 Dose: 1,000 mg Documented By: SANGEETA Pantoprazole Sodium (Pantoprazole 40 Mg Tab) 40 mg PO QA [facility] Stop: 03/28/22 08:59 Last Admin: 02/26/22 08:14 Dose: 40 mg Documented By: SANGEETA Vitamin D (Cholecalciferol 1,000 Units 25 Mcg Tab) 1,000 units PO QA [facility] Stop: 03/28/22 08:59 Last Admin: 02/26/22 08:12 Dose: 1,000 units Documented By: SANGEETA Discontinued Medications Sodium Chloride (Nss 1000ml) 1,000 mls @ 999 mls/hr IV .Q1H1M ONE Stop: 02/26/22 00:01 Last Infusion: 02/26/22 01:08 Dose: 0 mls/hr Documented By: Admin: 02/25/22 23:11 Dose: 999 mls/hr Documented By: MARIANELA Cefepime HCl (Maxipime) 2,000 mg in 20 mls @ 5 mls/min IV NOW STA; Protocol Stop: 02/25/22 23:04 Last Admin: 02/25/22 23:10 Dose: 5 mls/min Documented By: MARIANELA Sodium Chloride (Nss 1000ml) 1,000 mls @ 999 mls/hr IV .Q1H1M ONE Stop: 02/26/22 01:36 Last Infusion: 02/26/22 04:51 Dose: 0 mls/hr Documented By: Admin: 02/26/22 00:50 Dose: 999 mls/hr Documented By: MARIANELA Daptomycin 550 mg/ Syringe 11 mls @ 5.5 mls/min IV NOW STA; Protocol Stop: 02/26/22 00:37 Last Admin: 02/26/22 00:59 Dose: 5.5 mls/min Documented By: MARIANELA Acetaminophen (Ofirmev) 1,000 mg in 100 mls @ 400 mls/hr IV NOW STA Stop: 02/26/22 00:51 Last Infusion: 02/26/22 01:08 Dose: 0 mls/hr Documented By: Admin: 02/26/22 00:51 Dose: 400 mls/hr Documented By: MARIANELA Metronidazole (Flagyl) 500 mg in 100 mls @ 100 mls/hr IV Q8H RANDELL Stop: 03/08/22 01:59 Last Infusion: 02/26/22 10:47 Dose: 0 mls/hr Documented By: Admin: 02/26/22 09:28 Dose: 100 mls/hr Documented By: Infusion: 02/26/22 04:50 Dose: 0 mls/hr Documented By: Admin: 02/26/22 03:45 Dose: 100 mls/hr Documented By: HEDY Parenteral Electrolytes (Normosol-R) 1,000 mls @ 999 mls/hr IV .Q1H1M ONE Stop: 02/26/22 04:39 Last Infusion: 02/26/22 04:50 Dose: 0 mls/hr Documented By: Admin: 02/26/22 02:45 Dose: 999 mls/hr Documented By: HEDY Famotidine 20 mg/ Syringe 5 mls @ 2.5 mls/min IV Q12 RANDELL Stop: 03/28/22 03:59 Last Admin: 02/26/22 04:38 Dose: 2.5 mls/min Documented By: HEDY Cefepime HCl 2,000 mg/ Syringe 20 mls @ 5 mls/min IV Q12H [facility]; Protocol Stop: 03/08/22 09:59 Last Admin: 02/26/22 09:28 Dose: 5 mls/min Documented By: SANGEETA Miscellaneous (Febuxostat [Uloric]: Order Awaiting Action) 1 each N/A QS RANDELL Stop: 03/28/22 07:59 Last Admin: 02/26/22 08:14 Dose: Not Given Documented By: SANGEETA Imaging Data Radiologist's Impression: Abdomen/Pelvis CT 02/25/22 23:[address] WITHOUT CONTRAST CT DOSE: 1578.68 mGy.cm HISTORY: Generalized abdominal pain, renal transplant TECHNIQUE: Multiaxial CT images of the abdomen and pelvis were performed without contrast. A dose lowering technique was utilized adhering to the principles of ALARA. COMPARISON STUDY: Abdomen and pelvis CT 01/21/2022. FINDINGS: Opacified bilateral hilar lymph nodes and multiple subcentimeter calcified and noncalcified pulmonary nodules are again noted at the lung bases. These remain unchanged. No pneumoperitoneum. No pneumatosis. No acute fractures within the visualized osseous structures. There are old, healed left-sided rib fractures. Small fat-containing umbilical hernia again noted. Small fat- containing left inguinal hernia. Cholelithiasis. No gallbladder wall thickening. The unenhanced liver, spleen, adrenal glands, and pancreas unremarkable. No retroperitoneal lymphadenopathy. Normal caliber abdominal aorta. Interval improvement in the bilateral inupiat renal/subcapsular hematomas and surrounding bilateral perinephric/retroperitoneal hemorrhage. This is most pronounced on the right. There is a right lower quadrant renal transplant again noted. No hydronephrosis. Mild bladder wall thickening. Inflammatory change seen surrounding the mildly enlarged prostate gland and seminal vesicles. This is new compared to the prior study. Suboptimal evaluation for bowel pathology due to the lack of intravenous and oral contrast. However, there is no definite bowel wall thickening or obstruction. Normal appendix. IMPRESSION: 1. Interval improvement in the bilateral inupiat renal/subcapsular hematomas and surrounding bilateral perinephric/retroperitoneal hemorrhage. This is most pronounced on the right. 2. No new sites of hemorrhage identified within the abdomen or pelvis. 3. Interval development of fat stranding surrounding the enlarged prostate gland and seminal vesicles. This may represent a prostatitis. 4. Right renal transplant again noted. No hydronephrosis. 5. Cholelithiasis. 6. Multiple calcified and noncalcified subcentimeter pulmonary nodules and calcified hilar lymphadenopathy remains unchanged. Findings favor prior gran ulomatous disease or sarcoidosis ACT 112: Negative or not required by law. Electronically signed by: Joao Parker M.D. 02/26/2022 9:56 AM Chest X-Ray 02/25/22 23:01 XR chest 1V portable CLINICAL HISTORY: Sepsis TECHNIQUE: Single frontal radiograph of the chest was obtained. Comparison: Comparison is made to chest radiograph 01/17/[address] abdomen pelvis 02/17/2022 FINDINGS: No lines and tubes are seen. Cardiomegaly is noted. A calcified aortic knob is seen. Prominence and cephalization of the vasculature is seen. Numerous nodular densities are unchanged from prior exam. No evidence of pleural effusion or pneumothorax. IMPRESSION: Cardiomegaly and mild pulmonary edema. Redemonstration of numerous nodular densities, unchanged from prior exam. ACT 112: Negative or not required by law. Electronically signed by: Mega Pan M.D. 02/26/2022 9:06 AM Abdominal and pelvis CT without contrast: Right renal subcapsular hematoma which measures 3.2 cm in thickness. There is associated retroperitoneal blood bilaterally that extends in the pelvis. The area blood is decreasing when compared to the CT from January 21, 2022. Discharge Plan Visit Data Chief Complaint: Weakness Stated Complaint: Weakness, Lethargy, Dizziness ED Provider: Mark Sutherland Discharge Problem: Sepsis, History of kidney transplant, Immunocompromised, Lethargy, Leukocytosis, Creatinine elevation Patient Disposition: Admitted As Inpatient Condition: Serious Discharge Instructions Interventions: ED Discharge Assessment Last Done: 02/26/22 01:55
[2022-02-25 23:29] LABS: Hematocrit (blood only) 34.4 % (40.1-51.0); Hemoglobin 11.1 g/dl (14.0-18.0); Mean Corpuscular Hemoglobin 30.2 pg (25.0-34.0); Mean Corpuscular Hgb Conc 32.3 g/dL (32.0-36.0); Mean Corpuscular Volume 93.5 fL (80.0-100.0); Mean Platelet Volume 10.7 fL (9.4-12.4); Platelet Count 195 K/uL (130-400); RDW Coefficient of Variation 15.2 % (11.5-14.5); RDW Standard Deviation 52.3 fL (36.4-46.3); Red Blood Count 3.68 M/uL (4.63-6.08); White Blood Count 14.52 K/ul (4.8-10.8)
[2022-02-25 23:51] LABS: Basophils # (auto) 0.04 K/uL (0-0.2); Basophils % (auto) 0.3 %; Eosinophils # (auto) 0.12 K/uL (0-0.50); Eosinophils % (auto) 0.8 %; Immature Granulocytes # (auto) 0.06 K/uL (0.00-0.02); Immature Granulocytes % (auto) 0.4 %; Lymphocytes # (auto) 0.08 K/uL (1.2-3.4); Lymphocytes % (auto) 0.6 %; Monocytes # (auto) 0.21 K/uL (0.24-0.82); Monocytes % (auto) 1.4 %; Neutrophils # (auto) 14.01 K/uL (1.4-6.5); Neutrophils % (auto) 96.5 %
[2022-02-25 23:52] LABS: Albumin Level 4.3 gm/dl (3.4-5.0); BUN Creatinine Ratio 28.7 (10-20); Bilirubin Direct 0.3 mg/dl (0-0.2); Bilirubin,Total 0.9 mg/dl (0.2-1.0); Calcium 9.7 mg/dl (8.5-10.1); Creatinine Clr Calc Pharmacy 32.1 ml/min; Est GFR (African American) 22.8 ml/min; Est GFR (Non-African American) 19.7 ml/min; Magnesium 1.8 mg/dl (1.7-2.4); Potassium 3.7 mmol/L (3.5-5.1); Total Protein 7.2 gm/dl (6.0-8.3)
[2022-02-26 00:33] LABS: Adenovirus PCR Not Detected (NotDetected); Bordetella parapertussis PCR Not Detected (NotDetected); Bordetella pertussis PCR Not Detected (NotDetected); Chlamydia pneumoniae PCR Not Detected (NotDetected); Coronavirus 229E PCR Not Detected (NotDetected); Coronavirus CoV-2 (COVID19)PCR Not Detected (NotDetected); Coronavirus HKU1 PCR Not Detected (NotDetected); Coronavirus NL63 PCR Not Detected (NotDetected); Coronavirus OC43PCR Not Detected (NotDetected); Human Metapneumovirus PCR Not Detected (NotDetected); Influenza A PCR Not Detected (NotDetected); Influenza B PCR Not Detected (NotDetected); Mycoplasma pneumoniae PCR Not Detected (NotDetected); Parainfluenza Virus 1 PCR Not Detected (NotDetected); Parainfluenza Virus 2 PCR Not Detected (NotDetected); Parainfluenza Virus 3 PCR Not Detected (NotDetected); Parainfluenza Virus 4 PCR Not Detected (NotDetected); Respiratory Syncytial VirusPCR Not Detected (NotDetected); Rhinovirus/Enterovirus PCR Not Detected (NotDetected)
[2022-02-26] MEDS ORDERED: SODIUM CHLORIDE 0.9% 1000ML 1,000 ML IV ONE (00:36)
[2022-02-26] MEDS ORDERED: DAPTOmycin 550 MG in SYRINGE 0 ML IV STA (00:36)
[2022-02-26] MEDS ORDERED: ACETAMINOPHEN 1,000 MG/100 ML VIAL IV STA (00:37)
[2022-02-26 01:15] LABS: Appearance Urine Cloudy (Clear); Bacteria Urine Automated Negative (Negative); Bilirubin Urine Negative (Negative); Blood Urine 3+ (Negative); Color Urine Yellow; Glucose Urine UA Negative (Negative); Ketones Urine Negative (Negative); Leukocyte Esterase Urine 2+ (Negative); Nitrite Urine Negative (Negative); Protein Urine 1+ (Negative); RBC Urine Automated >30 /hpf (0-4); Specific Gravity Urine 1.012 (1.000-1.030); Urobilinogen Urine Negative (Negative); WBC Urine Automated >30 /hpf (0-5)
--- NOTE | 2022-02-26 01:44 | History & Physical Report ---
Date of Service February 26, 2022 Assessment & Plan (1) Septic shock due to urinary tract infection: Plan: Septic shock due to UTI/status post prostate biopsy/immunocompromised due to medications- Daptomycin IV, cefepime IV begun in ED, and will add Flagyl IV. Patient status post 3 L normal saline bolus with variable blood pressure Admit to the ICU for continued close monitoring, expected to require pressors soon Follow urine culture sensitivity Follow blood culture and sensitivity Consult flat knitter helper Dr. Estrada (2) Retroperitoneal hematoma: Plan: Bilateral retroperitoneal hematomas/right subcapsular hematoma- CT reports decrease in the retroperitoneal hematomas Being followed outpatient by urology Avoid all anticoagulation and antiplatelet agents (3) Aortic valve endocarditis: Plan: Completed antibiotics on 02/06/2022 Repeat echocardiogram (4) Renal transplant recipient: Plan: Continuing CellCept and cyclosporine and routine support medications Consult nephrology (5) CKD (chronic kidney disease) stage 4, GFR 15-29 ml/min: Plan: Creatinine near baseline (6) Hypertension: Plan: Hold all medications due to hypotension (7) Sarcoidosis: (8) GERD (gastroesophageal reflux disease): Plan: Continue omeprazole/pantoprazole (9) Depression: (10) BPH (benign prostatic hyperplasia): Plan: Status post prostate biopsy Consult urology History of Present Illness Chief Complaint: The patient became acutely ill after work today, developed fevers and chills and shakes, and was brought to the emergency department for assessment. Primary Care Provider: Vinicius Ng MD The patient is a 61-year-old male with past medical history including aortic valve endocarditis of a complete antibiotics on 02/06/2022, anemia, renal transplant recipient, CKD stage IV, hypertension, obesity, sarcoidosis, peripheral neuropathy, FARNAZ, multiple pulmonary nodules, depression, GERD, BPH, dyslipidemia, gout, and metabolic syndrome. He reportedly did return back to normal health after completing antibiotics on 02/06/2022. He underwent a prostate biopsy by urology yesterday, and reportedly was doing well until late in the afternoon today. In the emergency department, the patient is able to answer questions, but is somewhat lethargic and septic looking. Blood pressure in ED was as low 63/40 and up to the upper 90s over 60s after receiving 3 L of normal saline Allergies Allergy/AdvReac Type Severity Reaction Status Date / Time allopurinol Allergy Unknown Rash Verified 02/26/22 01:10 hydromorphone [From Dilaudid] AdvReac Severe confusion Verified 02/26/22 01:10 Home Medications Medication Instructions Recorded Confirmed Type cholecalciferol (vitamin D3) 25 1,000 units PO QAM 04/24/19 02/26/22 History mcg (1,000 unit) capsule docusate sodium 100 mg capsule 100 mg PO BID PRN Constipation 04/24/19 02/26/22 History (Colace) multivitamin (Daily Multi-Vitamin 1 tab PO QAM 04/24/19 02/26/22 History tablet) tamsulosin 0.4 mg capsule (Flomax) 0.4 mg PO HS 04/24/19 02/26/22 History prednisone 5 mg tablet 5 mg PO QAM 05/29/19 02/26/22 History mycophenolate mofetil 250 mg 1,000 mg PO BID 02/20/20 02/26/22 History capsule (CellCept) febuxostat 80 mg tablet (Uloric) 80 mg PO QAM 03/06/20 02/26/22 History omeprazole 40 mg capsule,delayed 40 mg PO QAM #90 caps 04/29/21 02/26/22 Rx release cyclosporine 100 mg capsule 150 mg PO BID 06/16/21 02/26/22 History magnesium oxide 800 mg PO BID 06/16/21 02/26/22 History ferrous sulfate 325 mg (65 mg 325 mg PO BID 08/05/21 02/26/22 History iron) tablet (iron) gabapentin 300 mg capsule 600 mg PO .AM & AFTERNOON 08/22/21 02/26/22 History (Neurontin) acetaminophen 500 mg tablet 1,000 mg PO QID PRN Pain 08/24/21 02/26/22 History (Tylenol Extra Strength) duloxetine 60 mg capsule,delayed 60 mg PO QAM #90 caps 11/13/21 02/26/22 Rx release gabapentin 300 mg capsule 900 mg PO HS 11/17/21 02/26/22 History losartan 50 mg tablet 50 mg PO DAILY #90 tabs 12/15/21 02/26/22 Rx furosemide 40 mg tablet (Lasix) 60 mg PO QAM PRN Edema 12/25/21 02/26/22 History propranolol 10 mg tablet 10 mg PO BID #60 tabs 09/16/22 09/29/22 Rx Past Med/Surg History Medical History Abdominal pain Acute on chronic renal failure Anemia AV fistula Diarrhea Diarrhea DVT (deep venous thrombosis) Encounter for pre-operative examination Enterococcal bacteremia Family history of blood clots Focal glomerular sclerosis Gout History of basal cell carcinoma History of malignant melanoma of skin Hypertension Influenza A Nephrolithiasis Pneumonia due to COVID-19 virus Rectus sheath hematoma Renal transplant recipient Retroperitoneal hematoma Sarcoidosis Umbilical hernia Venous insufficiency Venous stasis dermatitis Surgical History H/O colonoscopy History of cardiac cath History of melanoma excision History of tonsillectomy History of tooth extraction Kidney transplanted Family History Mother Stroke Heart disease Grandmother Cancer Lung disease Denies family history of Ovarian cancer Prostate cancer Colorectal cancer Social History Smoking Status: Never smoker Second Hand Exposure: No; Hx Alcohol Use: Yes Hx Substance Use: No Preferred Language: Stateless Communication Ability: Effective Senior Manager Quality Assurance Required: No Beliefs That Will Affect Care: None marital status: Current Living Situation: Spouse Current Living Situation Comment: living with . current occupational status: employed current occupation: [employer] How many Children do You have: 1 Feels Safe at Home: Yes caffeine: Yes Dental Care, Regularly: Yes Seatbelt Use: always Sunscreen Use: Yes Assistive Devices: None Review of Systems Review of Systems: The patient denies chest pain, palpitations, shortness of breath, dyspnea on exertion, cough, lower extremity swelling, sore throat, vomiting, diarrhea , constipation, abdominal pain, pelvic pain, blood in urine or stool, dysuria, urinary frequency or urgency, loss of consciousness, rash, abnormal bruising or bleeding, imbalance, focal dammit weakness, numbness or tingling in arms or legs, back or neck pain, or night sweats. The review of systems is otherwise negative other than for that already noted above, and at least 10 systems have been reviewed. Physical Exam Physical Exam: The patient is awakens easily to voice, as sweats and shakes, normocephalic and atraumatic, lying in bed and in mild to moderate distress. HEENT--PERRL, EOMI, mucous membranes and oropharynx dry. Neck--supple. No JVD. No bruits. Thyroid normal, trachea midline, no adenopathy. Heart--normal S1 and S2. No murmurs, rubs or gallops. Lungs--clear bilaterally, no respiratory distress, no accessory muscle use. Abdomen--normal bowel sounds and soft. Nontender. Obese. Extremities--no cyanosis or clubbing. No edema. Dermatologic--chronic venous stasis dermatitis changes bilaterally lower extremities Neurologic--cranial nerves II through XII grossly intact. Rheumatologic--normal range of motion. Psychiatric--intermittently lethargic. Results & Data Results & Data ([facility]) Vital Signs (Past 12 Hours) Vital Signs Temp Pulse Pulse Resp BP BP Pulse Ox 02/26/22 01:37 93 H 21 101/56 L 92 02/26/22 01:28 94 H 23 100/59 L 94 02/26/22 01:18 94 H 21 82/50 L 93 02/26/22 00:52 37.4 C 96 H 21 100/66 94 02/25/22 23:35 99 H 24 121/68 96 02/25/22 23:28 98 H 21 119/70 98 02/25/22 23:28 95 02/25/22 22:51 99 H 28 H 113/61 93 02/25/22 22:49 02/25/22 22:38 37.5 C 103 H 18 99/66 L 96 O2 Del Method 02/26/22 01:37 Room Air 02/26/22 01:28 Room Air 02/26/22 01:18 Room Air 02/26/22 00:52 Room Air 02/25/22 23:35 02/25/22 23:28 Room Air 02/25/22 23:28 Room Air 02/25/22 22:51 Room Air 02/25/22 22:49 Room Air 02/25/22 22:38 Room Air Laboratory Results Laboratory Results WBC 14.52 K/ul (4.8-10.8) H 02/25/22 22:44 RBC 3.68 M/uL (4.63-6.08) L 02/25/22 22:44 Hgb 11.1 g/dl (14.0-18.0) L 02/25/22 22:44 POC Hgb 11.2 g/dl (14.0-18.0) L 02/25/22 22:48 Hct 34.4 % (40.1-51.0) L 02/25/22 22:44 POC Hct 33 % (42-52) L 02/25/22 22:48 MCV 93.5 fL (80.0-100.0) 02/25/22 22:44 MCH 30.2 pg (25.0-34.0) 02/25/22 22:44 MCHC 32.3 g/dL (32.0-36.0) 02/25/22 22:44 RDW Std Deviation 52.3 fL (36.4-46.3) H 02/25/22:44 RDW Coeff of Theresa 15.2 % (11.5-14.5) H 02/25/22 22:44 Plt Count 195 K/uL (130-400) 02/25/22 22:44 MPV 10.7 fL (9.4-12.4) 02/25/22 22:44 Immature Gran % (Auto) 0.4 % 02/25/22 22:44 Neut % (Auto) 96.5 % 02/25/22 22:44 Lymph % (Auto) 0.6 % 02/25/22 22:44 Clay % (Auto) 1.4 % 02/25/22 22:44 Eos % (Auto) 0.8 % 02/25/22 22:44 Baso % (Auto) 0.3 % 02/25/22:44 Neut # (Auto) 14.01 K/uL (1.4-6.5) H 02/25/22 22:44 Lymph # (Auto) 0.08 K/uL (1.2-3.4) L 02/25/22 22:44 Clay # (Auto) 0.21 K/uL (0.24-0.82) L 02/25/22 22:44 Eos # (Auto) 0.12 K/uL (0-0.50) 02/25/22 22:44 Baso # (Auto) 0.04 K/uL (0-0.2) 02/25/22 22:44 Immature Gran # (Auto) 0.06 K/uL (0.00-0.02) H 02/25/22 22:44 POC Sodium 139 mmol/L (135-144) 02/25/22 22:48 Sodium 136 mmol/L (136-145) 02/25/22 22:44 POC Potassium 3.7 mmol/L (3.3-5.0) 02/25/22 22:48 Potassium 3.7 mmol/L (3.5-5.1) 02/25/22 22:44 POC Chloride 105 mmol/L (101-112) 02/25/22 22:48 Chloride 103 mmol/L (98-107) 02/25/22 22:44 Carbon Dioxide 20 mmol/L (21-32) L 02/25/22 22:44 POC Total CO2 20 mmol/L (24-31) L 02/25/22 22:48 Anion Gap 13 (3-11) H 02/25/22 22:44 POC Anion Gap 19.0 mmol/L (16-25) 02/25/22 22:48 POC BUN 104 mg/dl (7-18) H* 02/25/22 22:48 BUN 93 mg/dl (6-23) H 02/25/22 22:44 Creatinine 3.24 mg/dl (0.6-1.4) H 02/25/22 22:44 POC Creatinine 3.3 mg/dl (0.6-1.3) H 02/25/22 22:48 Est Cr Clr Drug Dosing 32.1 ml/min 02/25/22 22:44 Est GFR ( Amer) 22.8 ml/min 02/25/22 22:44 Est GFR (Non-Af Amer) 19.7 ml/min 02/25/22 22:44 BUN/Creatinine Ratio 28.7 (10-20) H 02/25/22 22:44 Glucose 91 mg/dl (70-99(Fasting)) 02/25/22 22:44 POC Glucose (other) 97 mg/dl (70-99) 02/25/22 22:48 Lactate 1.5 mmol/L (0.4-2.0) 02/25/22 23:07 Calcium 9.7 mg/dl (8.5-10.1) 02/25/22 22:44 POC Ioniz Calcium [place] 1.22 mmol/l (1.12-1.32) 02/25/22 22:48 Magnesium 1.8 mg/dl (1.7-2.4) 02/25/22 22:44 Total Bilirubin 0.9 mg/dl (0.2-1.0) 02/25/22 22:44 Direct Bilirubin 0.3 mg/dl (0-0.2) H 02/25/22 22:44 AST 18 U/L (13-39) 02/25/22 22:44 ALT 12 U/L (7-52) 02/25/22 22:44 Alkaline Phosphatase 113 U/L (34-104) H 02/25/22 22:44 Troponin I High Sens 22.0 pg/ml (0-20) H D 02/25/22 22:44 Total Protein 7.2 gm/dl (6.0-8.3) 02/25/22 22:44 Albumin 4.3 gm/dl (3.4-5.0) 02/25/22 22:44 Procalcitonin 4.30 ng/ml (0-0.5) H 02/25/22 22:44 Urine Color Yellow 02/26/22 00:57 Urine Appearance Cloudy (Clear) A 02/26/22 00:57 Urine pH 5.0 (4.5-7.5) 02/26/22 00:57 Ur Specific [place] 1.012 (1.000-1.030) 02/26/22 00:57 Urine Protein 1+ (Negative) H 02/26/22 00:57 Urine Glucose (UA) Negative (Negative) 02/26/22 00:57 Urine Ketones Negative (Negative) 02/26/22 00:57 Urine Blood 3+ (Negative) H 02/26/22 00:57 Urine Nitrite Negative (Negative) 02/26/22 00:57 Urine Bilirubin Negative (Negative) 02/26/22 00:57 Urine Urobilinogen Negative (Negative) 02/26/22 00:57 Ur Leukocyte Esterase 2+ (Negative) H 02/26/22 00:57 Urine WBC (Auto) >30 /hpf (0-5) H 02/26/22 00:57 Urine RBC (Auto) >30 /hpf (0-4) H 02/26/22 00:57 U Hyaline Cast (Auto) 1-5 /lpf (0-5) 02/26/22 00:57 U Epithel Cells (Auto) 5-10 /lpf (0-5) H 02/26/22 00:57 Urine Bacteria (Auto) Negative (Negative) 02/26/22 00:57 Adenovirus (PCR) Not Detected (NotDetected) 02/25/22 23:34 B. pertussis DNA (PCR) Not Detected (NotDetected) 02/25/22 23:34 B.parapertussis DNA PCR Not Detected (NotDetected) 02/25/22 23:34 C. pneumoniae DNA (PCR) Not Detected (NotDetected) 02/25/22 23:34 Coronavirus OC43 (PCR) Not Detected (NotDetected) 02/25/22 23:34 Coronavirus HKU1 (PCR) Not Detected (NotDetected) 02/25/22 23:34 Coronavirus 229E (PCR) Not Detected (NotDetected) 02/25/22 23:34 SARS-CoV-2 (PCR) Not Detected (NotDetected) 02/25/22 23:34 Coronavirus NL63 (PCR) Not Detected (NotDetected) 02/25/22 23:34 Human Metapneumovir PCR Not Detected (NotDetected) 02/25/22 23:34 Influenza Type A (PCR) Not Detected (NotDetected) 02/25/22 23:34 Influenza Type B (PCR) Not Detected (NotDetected) 02/25/22 23:34 M. pneumoniae (PCR) Not Detected (NotDetected) 02/25/22 23:34 Parainfluenza 1 (PCR) Not Detected (NotDetected) 02/25/22 23:34 Parainfluenza 2 (PCR) Not Detected (NotDetected) 02/25/22 23:34 Parainfluenza 3 (PCR) Not Detected (NotDetected) 02/25/22 23:34 Parainfluenza 4 (PCR) Not Detected (NotDetected) 02/25/22 23:34 RSV (PCR) Not Detected (NotDetected) 02/25/22 23:34 Entero/Rhino (PCR) Not Detected (NotDetected) 02/25/22 23:34 Diagnostic Findings [facility] Patient: NAN MONTE (Male) : 62 Status: ER Date: 02/25/22 23:34 Room #: History: pain, renal transplant Slices: [phone] Priors: Aleksandar: Jed Velasquez @ [phone] Exams: CT ABDOMEN & PELVIS Without Contrast Contrast: Accession Numbers: [id number] Referring Physician: MITCHEL BRENNAN Preliminary Findings Only See Final Report For Complete Findings CT ABDOMEN & PELVIS Without Contrast: Multiple pulmonary nodules at the lung bases. No focal hepatic lesion. Layering sludge. Normal spleen and adrenal glands. Atrophy of the pancreas. Right renal subcapsular hematoma, which measures 3.2 cm in thickness. Associated, retroperitoneal blood bilaterally that extends into the pelvis. Evaluation is limited due to lack of contrast. The degree of blood is decreasing when compared to January 21, 2022. No hydronephrosis or nephrolithiasis. Renal transplant in the right iliac fossa. Hydronephrosis. Decompressed urinary bladder. Enlarged prostate gland, measuring 6.3 cm. Diverticulosis, without acute diverticulitis. No small bowel obstruction. No free intraperitoneal air. IMPRESSION: Right renal subcapsular hematoma, which measures 3.2 cm in thickness. Asso ciated, retroperitoneal blood bilaterally that extends into the pelvis. Evaluation is limited due to lack of contrast. The degree of blood is decreasing when compared to January 21, 2022. Radiologist: Larry Muñoz MD Study ready at 23:58 and initial results transmitted at 00:03 *This report constitutes a preliminary interpretation only. Non-acute findings felt to be unrelated to the clinical presentation may not be discussed in this report. The study will be interpreted and a final report will be generated by the local Radiologist the following shift. To reach the hospital radiology department call [phone]. If a discrepancy is found between the preliminary and final interpreta tions of this study, please notify us via our Client Portal at [email or web address], under QA Exams. You can also fax this report with a description of the discrepancy, or include the final report, to our daytime fax number [phone]. If faxing, please indicate the severity of discrepancy using one of the following categories: [ ] 1 - Agree/Informational [ ] 2 - Unlikely to Affect Management [ ] 3 - Possible Eventual Change of Management [ ] 4 - Probable Immediate Change of Management For all other patient related information, please fax us at [phone]. [id number] Code Status & VTE Plan Code Status full code VTE Prophylaxis Plan VTE Prophylaxis will be ordered: Yes PG Care Time/CCT Total # of Minutes Spent Total Time Spent with Patient: Total time spent is greater than 50% in coordination of care (as documented) at patient's floor/unit and/or counseling patient: 40 minutes Coding Level of Care Code 78465 Initial Inpt Care Lvl 3 Diagnoses Septic shock due to urinary tract infection A41.9; R65.21; N39.0 Retroperitoneal hematoma K66.1 Aortic valve endocarditis I35.8 Renal transplant recipient Z94.0 CKD (chronic kidney disease) stage 4, GFR 15-29 ml/min N18.4 Hypertension I10 Hypertension type: essential hypertension Sarcoidosis D86.9 GERD (gastroesophageal reflux disease) K21.9 Esophagitis presence: without esophagitis Depression F32.89 Depression Type: other depression BPH (benign prostatic hyperplasia) N40.0 (1) Hypertension Hypertension type: essential hypertension Qualified Code(s): I10 - Essential (primary) hypertension (2) GERD (gastroesophageal reflux disease) Esophagitis presence: without esophagitis Qualified Code(s): K21.9 - Gastro- esophageal reflux disease without esophagitis (3) Depression Depression Type: other depression Qualified Code(s): F32.89 - Other specified depressive episodes
--- NOTE | 2022-02-26 03:12 | Billing Data ---
Date of Service February 26, 2022 Coding Level of Care Code Critical Care mins
[2022-02-26] MEDS ORDERED: NORMOSOL-R 1,000 ML IV ONE (03:39)
[2022-02-26] MEDS ORDERED: ICU PROTOCOL FOR HYPERGLYCEMIA PRN (03:40)
[2022-02-26] MEDS: metroNIDAZOLE 500 MG/100 ML BAG IV SCH ×2 (03:45→09:28)
[2022-02-26] MEDS: NORMOSOL-R 1,000 ML IV SCH ×3 (03:45→21:00)
[2022-02-26] MEDS ORDERED: FAMOTIDINE 20 MG in SYRINGE 3 ML IV SCH (04:00)
--- NOTE | 2022-02-26 04:07 | Critical Care Consultation ---
Date of Consultation February 26, 2022 Assessment & Plan (1) Severe sepsis: Reason Critically Ill: 61-year-old male with complex past medical history presents to the ICU with hypotension, sepsis, and worsening renal function and patient with prior renal transplant and immunocompromise. Neuro - Neuropathywe will hold gabapentin for now as patient is quite drowsy/lethargic. This may be due to elevated BUN level as well. Monitor for now DepressionCymbalta Cardiac - Hypotensionlikely secondary to sepsis but appears to be improving with fluid resuscitation. We will give patient total of 3 L crystalloid bolus prior to starting pressors if needed to maintain maps greater than 65 -Random cortisol 17, patient is on prednisone and we will start IV hydrocortisone -Last echo with normal LV function. Patient did have evidence of aortic valve endocarditis on prior JOSE but underwent completion of antibiotics -Follow-up echo -See ID below -Hold antihypertensives -Continuous monitor on telemetry Respiratory - OSAcontinue CPAP at night. Patient is currently maintaining oxygen saturation on 2 L nasal cannula without respiratory distress. History of pulmonary nodules -Continuous monitoring on pulse ox. Wean oxygen as tolerated GI - GERDPPI RENAL/LYTES - CKD/post renal transplantpatient underwent renal transplant approximately 3 years ago and was hemodialysis prior to this point. Still has graft in left arm. -Creatinine 3.24 appears to be close to baseline. Patient's BUN is 93 with baseline 47-52 on previous admissions -Continue with IV fluid resuscitation -Continue glucose steroids, cyclosporine, CellCept -Maintain maps greater than 65 -avoid nephrotoxins renally adjust medications - Strict I's and O's ENDO - No history of diabetes or thyroid disease, ICU hyperglycemic protocol HEME - H&H stable, monitor routine CBC and transfuse as necessary Retroperitoneal hematoma appears to be decreasing on CT. Monitor. Avoid anticoagulation ID - Sepsispatient with leukocytosis and elevated Pro-Clement in the setting of hypotension and immunocompromise patient -Unclear source at this time. Was recently treated for aortic valve endocarditis following UTI and completed antibiotics 3 weeks ago -Blood cultures and urine culture pending -Viral panel unremarkable -Continue with broad-spectrum antibiotics daptomycin, cefepime, Flagyl LINES/IV ACCESS - Peripheral IVs, consider central line if requires pressors DVT PROPHYLAXIS - SCDs, hold on anticoagulation given recent retroperitoneal bleed I have personally spent 45 minutes of critical care time in the direct management of this patient. This is a life/limb threatening event. This includes time spent evaluating patient, direct bedside care, chart review, placing orders, interpretation of diagnostic studies, discussion with consultants, patient, and family members, as well as other required patient management activities. This time is exclusive of all separately billable procedures, and teaching time and separate from and in addition to any other critical care service time. Thank you for allowing us to participate in the care of this patient. Please refer to my attending physician's documentation for any further recommendations. (2) Retroperitoneal hematoma: (3) Elevated PSA: (4) Aortic valve endocarditis: (5) Renal transplant recipient: (6) CKD (chronic kidney disease) stage 4, GFR 15-29 ml/min: (7) Sarcoidosis: (8) Peripheral neuropathy: (9) Obstructive sleep apnea: (10) Multiple pulmonary nodules: (11) Depression: (12) GERD (gastroesophageal reflux disease): History of Present Illness Attending Physician: Yovani Pizarro MD History of Present Illness Patient is a 61-year-old male with past medical history of recent aortic valve endocarditis (antibiotics completed 02/06/2022), kidney transplant, CKD stage IV, HTN, sarcoidosis, neuropathy, FARNAZ, GERD, BPH, depression, dyslipidemia, gout who presented to the emergency department after becoming sick at work with fevers and chills. Patient did go to urology yesterday to undergo prostate biopsy after having elevated PSA. He was found to be lethargic and hypotensive with blood pressure 63/40 initially in the ED. Procalcitonin elevated at 4 and leukocytosis. Patient is immunocompromised and is on cyclosporine and prednisone. He was given 3 L crystalloid bolus and broad-spectrum antibiotics. He was taken for CT abdomen and pelvis which redemonstrated right renal subcapsular hematoma and retroperitoneal blood which was decreasing in size compared to last study. He is now being admitted to ICU for further management at this time. On evaluation the patient is lethargic but arousable and is alert and oriented. He is without acute distress. He denies any headache, dizziness, cough, sore throat or congestion, shortness of breath, palpitations, chest pain, nausea vomiting or diarrhea. He did complain of some mild right upper quadrant pain with palpation. Allergies Allergy/AdvReac Type Severity Reaction Status Date / Time allopurinol Allergy Unknown Rash Verified 02/26/22 01:10 hydromorphone [From Dilaudid] AdvReac Severe confusion Verified 02/26/22 01:10 Home Medications Medication Instructions Recorded Confirmed Type cholecalciferol (vitamin D3) 25 1,000 units PO QAM 04/24/19 02/26/22 History mcg (1,000 unit) capsule docusate sodium 100 mg capsule 100 mg PO BID PRN Constipation 04/24/19 02/26/22 History (Colace) multivitamin (Daily Multi-Vitamin 1 tab PO QAM 04/24/19 02/26/22 History tablet) tamsulosin 0.4 mg capsule (Flomax) 0.4 mg PO HS 04/24/19 02/26/22 History prednisone 5 mg tablet 5 mg PO QAM 05/29/19 02/26/22 History mycophenolate mofetil 250 mg 1,000 mg PO BID 02/20/20 02/26/22 History capsule (CellCept) febuxostat 80 mg tablet (Uloric) 80 mg PO QAM 03/06/20 02/26/22 History omeprazole 40 mg capsule,delayed 40 mg PO QAM #90 caps 04/29/21 02/26/22 Rx release cyclosporine 100 mg capsule 150 mg PO BID 06/16/21 02/26/22 History magnesium oxide 800 mg PO BID 06/16/21 02/26/22 History ferrous sulfate 325 mg (65 mg 325 mg PO BID 08/05/21 02/26/22 History iron) tablet (iron) gabapentin 300 mg capsule 600 mg PO .AM & AFTERNOON 08/22/21 02/26/22 History (Neurontin) acetaminophen 500 mg tablet 1,000 mg PO QID PRN Pain 08/24/21 02/26/22 History (Tylenol Extra Strength) duloxetine 60 mg capsule,delayed 60 mg PO QAM #90 caps 11/13/21 02/26/22 Rx release gabapentin 300 mg capsule 900 mg PO HS 11/17/21 02/26/22 History losartan 50 mg tablet 50 mg PO DAILY #90 tabs 12/15/21 02/26/22 Rx furosemide 40 mg tablet (Lasix) 60 mg PO QAM PRN Edema 12/25/21 02/26/22 History propranolol 10 mg tablet 10 mg PO BID #60 tabs 02/13/22 02/26/22 Rx Patient History Medical History Abdominal pain Acute on chronic renal failure Anemia AV fistula Diarrhea Diarrhea DVT (deep venous thrombosis) Encounter for pre-operative examination Enterococcal bacteremia Family history of blood clots Focal glomerular sclerosis Gout History of basal cell carcinoma History of malignant melanoma of skin Hypertension Influenza A Nephrolithiasis Pneumonia due to COVID-19 virus Rectus sheath hematoma Renal transplant recipient Retroperitoneal hematoma Sarcoidosis Umbilical hernia Venous insufficiency Venous stasis dermatitis Surgical History H/O colonoscopy History of cardiac cath History of melanoma excision History of tonsillectomy History of tooth extraction Kidney transplanted Family History Mother Stroke Heart disease Grandmother Cancer Lung disease Denies family history of Ovarian cancer Prostate cancer Colorectal cancer Social History Smoking Status: Never smoker Second Hand Exposure: No; Hx Alcohol Use: No Hx Substance Use: No Preferred Language: Sami Communication Ability: Effective Medical Resident Required: No Beliefs That Will Affect Care: None marital status: Current Living Situation: Spouse Current Living Situation Comment: living with . current occupational status: employed current occupation: [employer] How many Children do You have: 1 Feels Safe at Home: Yes caffeine: Yes Dental Care, Regularly: Yes Seatbelt Use: always Sunscreen Use: Yes Assistive Devices: Glasses Review of Systems Review of Systems: All systems reviewed & are unremarkable except as noted in HPI & below Physical Exam Constitutional: WD/WN, vitals as above cooperative, comfortable and + lethargic Eyes: PERRL, conjunctivae normal, anicteric sclerae ENMT: external ear and nose normal, oropharynx normal Neck: trachea midline, no thyromegaly Respiratory: normal respiratory effort, lungs clear to auscultation Cardiovascular: RRR, no murmur, no edema Heart Sounds: normal S1 and normal S2 Extremities: + edema (Bilateral lower extremity edema +1) Gastrointestinal (Abdomen): Abdomen obese, soft, mild tenderness with palpation to the right upper quadrant. Bowel sounds auscultated all 4 quadrants Musculoskeletal: no cyanosis or clubbing, extremities motor strength 5/5 Skin: no rashes, warm and dry Neurologic: PERRL, EOMI, accommodation nl, no face palsy, no dysarthria Psychiatric: A+Ox3, euthymic affect Results & Data Results & Data ([facility]) Vital Signs (Past 12 Hours) Vital Signs Temp Pulse Pulse Resp BP BP Pulse Ox 02/26/22 03:45 76 17 100 02/26/22 03:30 75 17 100 02/26/22 03:15 86/55 L 02/26/22 02:39 82/50 L 02/26/22 02:31 78 14 97 02/26/22 02:31 68/44 L 02/26/22 02:30 84 17 96 02/26/22 02:24 76/47 L 02/26/22 02:24 85 15 97 02/26/22 02:23 85 19 95 02/26/22 02:23 72/44 L 02/26/22 02:20 82/42 L 02/26/22 02:20 86 19 97 02/26/22 02:15 86 18 98 02/26/22 02:12 85 15 97 02/26/22 01:45 92 H 22 93 02/26/22 03:33 79 20 99 02/26/22 03:17 02/26/22 03:17 37.3 C 72 18 86/55 L 100 02/26/22 01:46 90 22 94/61 L 95 02/26/22 01:45 90 02/26/22 01:37 93 H 21 101/56 L 92 02/26/22 01:28 94 H 23 100/59 L 94 02/26/22 01:18 94 H 21 82/50 L 93 02/26/22 00:52 37.4 C 96 H 21 100/66 94 02/25/22 23:35 99 H 24 121/68 96 02/25/22 23:28 98 H 21 119/70 98 02/25/22 23:28 95 02/25/22 22:51 99 H 28 H 113/61 93 02/25/22 22:49 02/25/22 22:38 37.5 C 103 H 18 99/66 L 96 O2 Del Method O2 Flow Rate FiO2 02/26/22 03:45 02/26/22 03:30 02/26/22 03:15 02/26/22 02:39 02/26/22 02:31 02/26/22 02:31 02/26/22 02:30 02/26/22 02:24 02/26/22 02:24 02/26/22 02:23 02/26/22 02:23 02/26/22 02:20 02/26/22 02:20 02/26/22 02:15 02/26/22 02:12 02/26/22 01:45 02/26/22 03:33 30 02/26/22 03:17 CPAP 30 02/26/22 03:17 CPAP 30 02/26/22 01:46 Nasal Cannula 2 02/26/22 01:45 Nasal Cannula 0 02/26/22 01:37 Room Air 02/26/22 01:28 Room Air 02/26/22 01:18 Room Air 02/26/22 00:52 Room Air 02/25/22 23:35 02/25/22 23:28 Room Air 02/25/22 23:28 Room Air 02/25/22 22:51 Room Air 02/25/22 22:49 Room Air 02/25/22 22:38 Room Air Coding Level of Care Code Critical Care 1st 30-74 mins Diagnoses Severe sepsis A41.9; R65.20 Retroperitoneal hematoma K66.1 Elevated PSA R97.20 Aortic valve endocarditis I35.8 Renal transplant recipient Z94.0 CKD (chronic kidney disease) stage 4, GFR 15-29 ml/min N18.4 Sarcoidosis D86.9 Peripheral neuropathy G62.9 Obstructive sleep apnea G47.33 Multiple pulmonary nodules R91.8 Depression F32.89 Depression Type: other depression GERD (gastroesophageal reflux disease) K21.9 Esophagitis presence: without esophagitis (1) Depression Depression Type: other depression Qualified Code(s): F32.89 - Other specified depressive episodes (2) GERD (gastroesophageal reflux disease) Esophagitis presence: without esophagitis Qualified Code(s): K21.9 - Gastro- esophageal reflux disease without esophagitis
[2022-02-26] MEDS: HYDROCORTISONE SOD 50 MG in SYRINGE 0 ML IV SCH ×3 (05:29→22:11)
[2022-02-26 06:27] LABS: Hematocrit (blood only) 31.5 % (40.1-51.0); Hemoglobin 10.1 g/dl (14.0-18.0); Mean Corpuscular Hemoglobin 30.2 pg (25.0-34.0); Mean Corpuscular Hgb Conc 32.1 g/dL (32.0-36.0); Mean Corpuscular Volume 94.3 fL (80.0-100.0); Mean Platelet Volume 10.8 fL (9.4-12.4); Platelet Count 175 K/uL (130-400); RDW Coefficient of Variation 15.5 % (11.5-14.5); RDW Standard Deviation 53.1 fL (36.4-46.3); Red Blood Count 3.34 M/uL (4.63-6.08); White Blood Count 19.26 K/ul (4.8-10.8)
[2022-02-26 06:35] LABS: INR 1.1 (0.9-1.1); Prothrombin Time 11.4 Seconds (9.0-12.0)
[2022-02-26 07:07] LABS: Basophils # (auto) 0.07 K/uL (0-0.2); Basophils % (auto) 0.4 %; Eosinophils # (auto) 0.05 K/uL (0-0.50); Eosinophils % (auto) 0.3 %; Immature Granulocytes # (auto) 0.17 K/uL (0.00-0.02); Immature Granulocytes % (auto) 0.9 %; Lymphocytes # (auto) 0.14 K/uL (1.2-3.4); Lymphocytes % (auto) 0.7 %; Monocytes # (auto) 0.73 K/uL (0.24-0.82); Monocytes % (auto) 3.8 %; Neutrophils % (auto) 93.9 %
[2022-02-26 07:20] LABS: Albumin Globulin Ratio 1.6 (0.9-2); Albumin Level 3.8 gm/dl (3.4-5.0); BUN Creatinine Ratio 27.6 (10-20); Bilirubin,Total 0.9 mg/dl (0.2-1.0); Calcium 8.8 mg/dl (8.5-10.1); Creatinine Clr Calc Pharmacy 31.3 ml/min; Globulin 2.4 gm/dl (2.5-4.0); Phosphorus 3.5 mg/dl (2.5-4.9); Potassium 4.4 mmol/L (3.5-5.1); Total Protein 6.2 gm/dl (6.0-8.3)
[2022-02-26 07:25] LABS: Magnesium 1.8 mg/dl (1.7-2.4); Troponin I High Sensitivity 36.8 pg/ml (0-20)
[2022-02-26] MEDS: CHOLECALCIFEROL 1,000 UNITS 25 MCG TAB PO SCH (08:12)
[2022-02-26] MEDS: DULoxetine HCL 60 MG CAP PO SCH (08:12)
[2022-02-26] MEDS: GABAPENTIN 300 MG CAP PO SCH ×3 (08:13→22:11)
[2022-02-26] MEDS: MYCOPHENOLATE MOFETIL 250 MG CAP PO SCH ×2 (08:13→22:10)
[2022-02-26] MEDS: PANTOprazole 40 MG TAB PO SCH (08:14)
[2022-02-26] MEDS ORDERED: predniSONE 5 MG TAB PO SCH (09:00)
--- NOTE | 2022-02-26 09:07 | XRay Report ---
XR chest 1V portable CLINICAL HISTORY: Sepsis TECHNIQUE: Single frontal radiograph of the chest was obtained. Comparison: Comparison is made to chest radiograph 01/17/[address] abdomen pelvis 02/17/2022 FINDINGS: No lines and tubes are seen. Cardiomegaly is noted. A calcified aortic knob is seen. Prominence and c ephalization of the vasculature is seen. Numerous nodular densities are unchanged from prior exam. No evidence of pleural effusion or pneumothorax. IMPRESSION: Cardiomegaly and mild pulmonary edema. Redemonstration of numerous nodular densities, unchanged from prior exam. ACT 112: Negative or not required by law. Electronically signed by: Mega Pan M.D. 02/26/2022 9:06 AM
--- NOTE | 2022-02-26 09:58 | CT Scan Report ---
ABDOMEN AND PELVIS CT WITHOUT CONTRAST CT DOSE: 1578.68 mGy.cm HISTORY: Generalized abdominal pain, renal transplant TECHNIQUE: Multiaxial CT images of the abdomen and pelvis were performed without contrast. A dose lo wering technique was utilized adhering to the principles of ALARA. COMPARISON STUDY: Abdomen and pelvis CT 01/21/2022. FINDINGS: Opacified bilateral hilar lymph nodes and multiple subcentimeter calcified and noncalcified pulmonary nodules are again noted at the lung bases. These remain unchanged. No pneumoperitoneum. No pneumatosis. No acute fractures within the visualized osseous structures. There are old, healed left -sided rib fractures. Small fat-containing umbilical hernia again noted. Small fat-containing left in guinal hernia. Cholelithiasis. No gallbladder wall thickening. The unenhanced liver, spleen, adrenal glands, and pancreas unremarkable. No retroperitoneal lymphadenopathy. Normal caliber abdominal aorta . Interval improvement in the bilateral [place] renal/subcapsular hematomas and surrounding bilateral perinephric/retroperitoneal hemorrhage. This is most pronounced on the right. There is a right lower quadrant renal transplant again noted. No hydronephrosis. Mild bladder wall thickening. Inflammatory change seen surrounding the mildly enlarged prostate gland and seminal vesicles. This is new compared to the prior study. Suboptimal evaluation for bowel pathology due to the lack of intravenous and ora l contrast. However, there is no definite bowel wall thickening or obstruction. Normal appendix. IMPRESSION: 1. Interval improvement in the bilateral [place] renal/subcapsular hematomas and surrounding bilatera l perinephric/retroperitoneal hemorrhage. This is most pronounced on the right. 2. No new sites of hemorrhage identified within the abdomen or pelvis. 3. Interval development of fat stranding surrounding the enlarged prostate gland and seminal vesicles . This may represent a prostatitis. 4. Right renal transplant again noted. No hydronephrosis. 5. Cholelithiasis. 6. Multiple calcified and noncalcified subcentimeter pulmonary nodules and calcified hilar lymphadeno doretha remains unchanged. Findings favor prior granulomatous disease or sarcoidosis ACT 112: Negative or not required by law. Electronically signed by: Joao Parker M.D. 02/26/2022 9:56 AM
[2022-02-26] MEDS ORDERED: CEFEPIME 2,000 MG in SYRINGE 0 ML IV SCH (10:00)
--- NOTE | 2022-02-26 10:03 | Critical Care Progress Note ---
Date of Service February 26, 2022 Assessment & Plan (1) Severe sepsis: Plan: Reason Critically Ill: 61-year-old male with complex past medical history presents to the ICU with hypotension, sepsis, and worsening renal function and patient with prior renal transplant and immunocompromise. Neuro - Neuropathywe will hold gabapentin for now as patient is quite drowsy/lethargic. This may be due to elevated BUN level as well. Monitor for now DepressionCymbalta Cardiac - Hypotensionresolved -Random cortisol 17, patient is on prednisone and we will start IV hydrocortisone -Last echo with normal LV function. Patient did have evidence of aortic valve endocarditis on prior JOSE but underwent completion of antibiotics -Follow-up echo -See ID below -Hold antihypertensives -Continuous monitor on telemetry Respiratory - OSAcontinue CPAP at night. Patient is currently maintaining oxygen saturation on 2 L nasal cannula without respiratory distress. History of pulmonary nodules -Continuous monitoring on pulse ox. Wean oxygen as tolerated GI - GERDPPI RENAL/LYTES - CKD/post renal transplantpatient underwent renal transplant approximately 3 years ago and was hemodialysis prior to this point. Still has graft in left arm. -Creatinine 3.24 appears to be close to baseline. Patient's BUN is 93 with baseline 47-52 on previous admissions -Maintain maps greater than 65 -Cyclosporine level pending - Strict I's and O's ENDO - No history of diabetes or thyroid disease, ICU hyperglycemic protocol HEME - H&H stable, monitor routine CBC and transfuse as necessary Retroperitoneal hematoma appears to be decreasing on CT. Monitor. Avoid anticoagulation ID - Sepsispatient with leukocytosis and elevated Pro-Clement in the setting of hypotension and immunocompromise patient -E. coli bacteremia -Stable for de-escalation to ceftriaxone LINES/IV ACCESS - Peripheral IVs DVT PROPHYLAXIS - SCDs, hold on anticoagulation given recent retroperitoneal bleed Discussed with hospitalist medicine, stable for downgrade out of ICU (2) Retroperitoneal hematoma: (3) Elevated PSA: (4) Aortic valve endocarditis: (5) Renal transplant recipient: (6) CKD (chronic kidney disease) stage 4, GFR 15-29 ml/min: (7) Sarcoidosis: (8) Peripheral neuropathy: (9) Obstructive sleep apnea: (10) Multiple pulmonary nodules: (11) Depression: (12) GERD (gastroesophageal reflux disease): Admission and Anticipated Discharge Date Admission Date: February 26, 2022 Subjective No overnight events. Feels improved compared to yesterday. Review of Systems Review of Systems: Denies chest pain, denies shortness of breath, reports generalized moderate to severe fatigue Physical Exam Physical Exam: General: Alert. nontoxic. Skin: Warm, dry, Head: Atraumatic Ears, nose, mouth and throat: airway patent Cardiovascular: Normal peripheral perfusion Respiratory: no respiratory distress Gastrointestinal: Non distended Musculoskeletal: No deformity Results & Data Results & Data ([facility]) Vital Signs (Past 12 Hours) Vital Signs Temp Pulse Pulse Resp BP BP Pulse Ox 02/26/22 09:00 73 13 99 02/26/22 09:00 138/85 02/26/22 08:00 79 21 98 02/26/22 08:00 132/67 02/26/22 07:00 74 18 98 02/26/22 07:00 138/79 02/26/22 08:00 36.7 C 02/26/22 06:02 76 20 137/76 100 02/26/22 06:00 76 17 100 02/26/22 05:18 37.3 C 02/26/22 05:10 72 18 133/81 99 02/26/22 05:00 75 19 99 02/26/22 04:00 76 18 100 02/26/22 04:00 111/66 02/26/22 04:28 72 02/26/22 03:45 76 17 100 02/26/22 03:30 75 17 100 02/26/22 03:15 86/55 L 02/26/22 02:39 82/50 L 02/26/22 02:31 78 14 97 02/26/22 02:31 68/44 L 02/26/22 02:30 84 17 96 02/26/22 02:24 76/47 L 02/26/22 02:24 85 15 97 02/26/22 02:23 85 19 95 02/26/22 02:23 72/44 L 02/26/22 02:20 82/42 L 02/26/22 02:20 86 19 97 02/26/22 02:15 86 18 98 02/26/22 02:12 85 15 97 02/26/22 01:45 92 H 22 93 02/26/22 03:33 79 20 99 02/26/22 03:17 02/26/22 03:17 37.3 C 72 18 86/55 L 100 02/26/22 01:46 90 22 94/61 L 95 02/26/22 01:45 90 02/26/22 01:37 93 H 21 101/56 L 92 02/26/22 01:28 94 H 23 100/59 L 94 02/26/22 01:18 94 H 21 82/50 L 93 02/26/22 00:52 37.4 C 96 H 21 100/66 94 02/25/22 23:35 99 H 24 121/68 96 02/25/22 23:28 98 H 21 119/70 98 02/25/22 23:28 95 02/25/22 22:51 99 H 28 H 113/61 93 02/25/22 22:49 02/25/22 22:38 37.5 C 103 H 18 99/66 L 96 O2 Del Method O2 Flow Rate FiO2 02/26/22 09:00 02/26/22 09:00 02/26/22 08:00 02/26/22 08:00 02/26/22 07:00 02/26/22 07:00 02/26/22 08:00 02/26/22 06:02 02/26/22 06:00 02/26/22 05:18 02/26/22 05:10 02/26/22 05:00 02/26/22 04:00 02/26/22 04:00 02/26/22 04:28 02/26/22 03:45 02/26/22 03:30 02/26/22 03:15 02/26/22 02:39 02/26/22 02:31 02/26/22 02:31 02/26/22 02:30 02/26/22 02:24 02/26/22 02:24 02/26/22 02:23 02/26/22 02:23 02/26/22 02:20 02/26/22 02:20 02/26/22 02:15 02/26/22 02:12 02/26/22 01:45 02/26/22 03:33 30 02/26/22 03:17 CPAP 30 02/26/22 03:17 CPAP 30 02/26/22 01:46 Nasal Cannula 2 02/26/22 01:45 Nasal Cannula 0 02/26/22 01:37 Room Air 02/26/22 01:28 Room Air 02/26/22 01:18 Room Air 02/26/22 00:52 Room Air 02/25/22 23:35 02/25/22 23:28 Room Air 02/25/22 23:28 Room Air 02/25/22 22:51 Room Air 02/25/22 22:49 Room Air 02/25/22 22:38 Room Air Coding Level of Care Code 97746 Subseq Hosp Care Lvl 3 Diagnoses Severe sepsis A41.9; R65.20 Retroperitoneal hematoma K66.1 Elevated PSA R97.20 Aortic valve endocarditis I35.8 Renal transplant recipient Z94.0 CKD (chronic kidney disease) stage 4, GFR 15-29 ml/min N18.4 Sarcoidosis D86.9 Peripheral neuropathy G62.9 Obstructive sleep apnea G47.33 Multiple pulmonary nodules R91.8 Depression F32.89 Depression Type: other depression GERD (gastroesophageal reflux disease) K21.9 Esophagitis presence: without esophagitis (1) Depression Depression Type: other depression Qualified Code(s): F32.89 - Other specified depressive episodes (2) GERD (gastroesophageal reflux disease) Esophagitis presence: without esophagitis Qualified Code(s): K21.9 - Gastro- esophageal reflux disease without esophagitis
[2022-02-26 10:57] LABS: A calco-baum cmplx NotReported Not Detected (NotDetected); Bact fragilis Not Reported Not Detected (NotDetected); C auris Not Reported Not Detected (NotDetected); CTX-M Resistant Gene Not Detected (NotDetected); Calbicans Not Reported Not Detected (NotDetected); Candida glabrata Not Reported Not Detected (NotDetected); Candida krusei Not Reported Not Detected (NotDetected); Cneoformans/gatti Not Reported Not Detected (NotDetected); Cparapsilosis Not Reported Not Detected (NotDetected); Ctropicalis Not Reported Not Detected (NotDetected); E cloacae compx Not Reported Not Detected (NotDetected); Efaecalis Not Reported Not Detected (NotDetected); Efaecium Not Reported Not Detected (NotDetected); Enterobacterales DETECTED (NotDetected); Enterobacterales Not Reported DETECTED (NotDetected); Escherichia coli Not Reported DETECTED (NotDetected); H influenzae Not Reported Not Detected (NotDetected); IMP Resistant Gene Not Detected (NotDetected); K aerogenes Not Reported Not Detected (NotDetected); KPC Resistant Gene Not Detected (NotDetected); Koxytoca Not Reported Not Detected (NotDetected); Kpneumoniae grp Not Reported Not Detected (NotDetected); Lmonocyt Not Reported Not Detected (NotDetected); N meningitidis Not Reported Not Detected (NotDetected); NDM Resistant Gene Not Detected (NotDetected); OXA 48 Like Resistant Gene Not Detected (NotDetected); P aeruginosa Not Reported Not Detected (NotDetected); Proteus spp Not Reported Not Detected (NotDetected); Salmonella spp Not Reported Not Detected (NotDetected); Smarcescens Not Reported Not Detected (NotDetected); Staph lugdunensis Not Reported Not Detected (NotDetected); Staph spp. Not Reported Not Detected (NotDetected); Staphaureus Not Reported Not Detected (NotDetected); Staphepi Not Reported Not Detected (NotDetected); Stenmaltophilia Not Reported Not Detected (NotDetected); Strep agal(GrpB) Not Reported Not Detected (NotDetected); Strep pneum Not Reported Not Detected (NotDetected); Strep pyog (GrpA) Not Reported Not Detected (NotDetected); Strep spp Not Reported Not Detected (NotDetected); VIM Resistant Gene Not Detected (NotDetected); mcr-1 Colistin Resistant Gene Not Detected (NotDetected)
[2022-02-26] MEDS: cefTRIAXone SODIUM 2,000 MG in DEXTROSE 5% 50 ML IV SCH (12:05)
[2022-02-26 12:07] LABS: Hematocrit (blood only) 30.9 % (40.1-51.0)
--- NOTE | 2022-02-26 12:22 | Urology Consultation ---
Date of Consultation February 26, 2022 Assessment & Plan (1) Sepsis: Plan 61-year-old male with multiple medical comorbidities who was admitted with sepsis following a prostate needle biopsy on 02/24/2022. No acute urologic intervention necessary Can hold off on Bond catheter now as long as he continues to void and PVRs are not exceptionally elevated Continue broad-spectrum antibiotics Discussed pathology with patient, which is favorable as it returned benign Urology to continue to follow History of Present Illness Reason for Consultation: Sepsis following prostate needle biopsy Attending Physician: Rodrigo Rendon MD History of Present Illness 61-year-old male with multiple medical comorbidities who is status post transrectal prostate needle biopsy on 02/24/2022. He was pretreated with appropriate antibiotics the night before and the morning of the procedure. He was discharged from the clinic without any issue. He unfortunately presented to the hospital overnight after not feeling well at the end of his workday. He has been afebrile with stable vitals. Initial labs showed a leukocytosis of 14.5, hemoglobin of 11.1,, creatinine 3.24 which is roughly his baseline, and a urinalysis that was negative for nitrites, 2+ leukocyte Estrace, greater than 30 WBCs, greater than 30 RBCs and no bacteria. Blood cultures were drawn and they are preliminarily growing gram-negative bacilli. He did have a CT scan done which did show interval improvement in known bilateral renal hemorrhages. He was initially treated with daptomycin, Flagyl and cefepime. He is currently on ceftriaxone. His leukocytosis did worsen to 19.26 today. Creatinine stable at 3.29. He reports he is feeling much better today. He is having some urinary urgency but is emptying his bladder and would prefer not to have a catheter. Allergies Allergy/AdvReac Type Severity Reaction Status Date / Time allopurinol Allergy Unknown Rash Verified 02/26/22 01:10 hydromorphone [From Dilaudid] AdvReac Severe confusion Verified 02/26/22 01:10 Home Medications Medication Instructions Recorded Confirmed Type cholecalciferol (vitamin D3) 25 1,000 units PO QAM 04/24/19 02/26/22 History mcg (1,000 unit) capsule docusate sodium 100 mg capsule 100 mg PO BID PRN Constipation 04/24/19 02/26/22 History (Colace) multivitamin (Daily Multi-Vitamin 1 tab PO QAM 04/24/19 02/26/22 History tablet) tamsulosin 0.4 mg capsule (Flomax) 0.4 mg PO HS 04/24/19 02/26/22 History prednisone 5 mg tablet 5 mg PO QAM 05/29/19 02/26/22 History mycophenolate mofetil 250 mg 1,000 mg PO BID 02/20/20 02/26/22 History capsule (CellCept) febuxostat 80 mg tablet (Uloric) 80 mg PO QAM 03/06/20 02/26/22 History omeprazole 40 mg capsule,delayed 40 mg PO QAM #90 caps 04/29/21 02/26/22 Rx release magnesium oxide 800 mg PO BID 06/16/21 02/26/22 History ferrous sulfate 325 mg (65 mg 325 mg PO BID 08/05/21 02/26/22 History iron) tablet (iron) gabapentin 300 mg capsule 600 mg PO .AM & AFTERNOON 08/22/21 02/26/22 History (Neurontin) acetaminophen 500 mg tablet 1,000 mg PO QID PRN Pain 08/24/21 02/26/22 History (Tylenol Extra Strength) duloxetine 60 mg capsule,delayed 60 mg PO QAM #90 caps 11/13/21 02/26/22 Rx release gabapentin 300 mg capsule 900 mg PO HS 11/17/21 02/26/22 History losartan 50 mg tablet 50 mg PO DAILY #90 tabs 12/15/21 02/26/22 Rx furosemide 40 mg tablet (Lasix) 60 mg PO QAM PRN Edema 12/25/21 02/26/22 History propranolol 10 mg tablet 10 mg PO BID #60 tabs 02/13/22 02/26/22 Rx cyclosporine modified 100 mg 100 mg PO BID 02/26/22 02/26/22 History capsule Patient History Medical History Abdominal pain Acute on chronic renal failure Anemia AV fistula LEFT WRIST> NO DIALYSIS CURRENTLY> FISTULA STILL WORKS PER PT Diarrhea Diarrhea DVT (deep venous thrombosis) Right- 04/2019 following transplant > Coumadin S/P LEFT LEG SURGERY (EXCISION OF MELANOMA LEFT LEG) 10 YEARS AGO. Encounter for pre-operative examination Enterococcal bacteremia Family history of blood clots Focal glomerular sclerosis Gout History of basal cell carcinoma History of malignant melanoma of skin Hypertension Influenza A Nephrolithiasis Pneumonia due to COVID-19 virus Rectus sheath hematoma Renal transplant recipient Retroperitoneal hematoma Sarcoidosis Umbilical hernia Venous insufficiency Venous stasis dermatitis Surgical History H/O colonoscopy History of cardiac cath 01/2018 > [facility] > NO STENTS History of melanoma excision left calf History of tonsillectomy History of tooth extraction Kidney transplanted APR 04, 2019 > [facility] [place] > right side Family History Mother Stroke Heart disease Grandmother Cancer Lung disease Denies family history of Ovarian cancer Prostate cancer Colorectal cancer Social History Smoking Status: Never smoker Second Hand Exposure: No; Hx Alcohol Use: No Hx Substance Use: No Preferred Language: Korean Communication Ability: Effective Professor Of Psychology Required: No Beliefs That Will Affect Care: None marital status: Current Living Situation: Spouse Current Living Situation Comment: living with . current occupational status: employed current occupation: [employer] How many Children do You have: 1 Feels Safe at Home: Yes caffeine: Yes Dental Care, Regularly: Yes Seatbelt Use: always Sunscreen Use: Yes Assistive Devices: Glasses Review of Systems Review of Systems: 14 point review of systems negative outside of what is listed above in HPI Physical Exam Physical Exam: General: Alert and oriented, no acute distress HEENT: Normocephalic, mucous membranes moist Pulmonary: Nonlabored respirations Abdomen: Nondistended Extremities: Moves all 4 spontaneously Neuro: No gross deficits Skin: Warm, dry, no rashes noted Results & Data ([facility]) Vital Signs (Past 12 Hours) Vital Signs Temp Pulse Pulse Resp BP BP Pulse Ox 02/26/22 09:00 73 13 99 02/26/22 09:00 138/85 02/26/22 08:00 79 21 98 02/26/22 08:00 132/67 02/26/22 07:00 74 18 98 02/26/22 07:00 138/79 02/26/22 08:00 36.7 C 02/26/22 06:02 76 20 137/76 100 02/26/22 06:00 76 17 100 02/26/22 05:18 37.3 C 02/26/22 05:10 72 18 133/81 99 02/26/22 05:00 75 19 99 02/26/22 04:00 76 18 100 02/26/22 04:00 111/66 02/26/22 04:28 72 02/26/22 03:45 76 17 100 02/26/22 03:30 75 17 100 02/26/22 03:15 86/55 L 02/26/22 02:39 82/50 L 02/26/22 02:31 78 14 97 02/26/22 02:31 68/44 L 02/26/22 02:30 84 17 96 02/26/22 02:24 76/47 L 02/26/22 02:24 85 15 97 02/26/22 02:23 85 19 95 02/26/22 02:23 72/44 L 02/26/22 02:20 82/42 L 02/26/22 02:20 86 19 97 02/26/22 02:15 86 18 98 02/26/22 02:12 85 15 97 02/26/22 01:45 92 H 22 93 02/26/22 03:33 79 20 99 02/26/22 03:17 02/26/22 03:17 37.3 C 72 18 86/55 L 100 02/26/22 01:46 90 22 94/61 L 95 02/26/22 01:45 90 02/26/22 01:37 93 H 21 101/56 L 92 02/26/22 01:28 94 H 23 100/59 L 94 02/26/22 01:18 94 H 21 82/50 L 93 02/26/22 00:52 37.4 C 96 H 21 100/66 94 O2 Del Method O2 Flow Rate FiO2 02/26/22 09:00 02/26/22 09:00 02/26/22 08:00 02/26/22 08:00 02/26/22 07:00 02/26/22 07:00 02/26/22 08:00 02/26/22 06:02 02/26/22 06:00 02/26/22 05:18 02/26/22 05:10 02/26/22 05:00 02/26/22 04:00 02/26/22 04:00 02/26/22 04:28 02/26/22 03:45 02/26/22 03:30 02/26/22 03:15 02/26/22 02:39 02/26/22 02:31 02/26/22 02:31 02/26/22 02:30 02/26/22 02:24 02/26/22 02:24 02/26/22 02:23 02/26/22 02:23 02/26/22 02:20 02/26/22 02:20 02/26/22 02:15 02/26/22 02:12 02/26/22 01:45 02/26/22 03:33 02/26/22 03:17 CPAP 02/26/22 03:17 CPAP 30 02/26/22 01:46 Nasal Cannula 2 02/26/22 01:45 Nasal Cannula 0 02/26/22 01:37 Room Air 02/26/22 01:28 Room Air 02/26/22 01:18 Room Air 02/26/22 00:52 Room Air PG Care Time/CCT Total # of Minutes Spent Total Time Spent with Patient: Total time spent is greater than 50% in coordination of care (as documented) at patient's floor/unit and/or counseling patient: Coding Level of Care Code 81220 Inpt Consult Level 5 Diagnoses Sepsis A41.9 Sepsis acute organ dysfunction status: without acute organ dysfunction Sepsis type: sepsis due to unspecified organism (1) Sepsis Sepsis acute organ dysfunction status: without acute organ dysfunction Sepsis type: sepsis due to unspecified organism Qualified Code(s): A41.9 - Sepsis, unspecified organism
[2022-02-26 12:27] LABS: BUN Creatinine Ratio 28.9 (10-20); Calcium 8.7 mg/dl (8.5-10.1); Creatinine Clr Calc Pharmacy 31.7 ml/min; Est GFR (African American) 22.4 ml/min; Est GFR (Non-African American) 19.3 ml/min; Potassium 4.5 mmol/L (3.5-5.1)
--- NOTE | 2022-02-26 14:21 | Hospitalist Progress Note ---
Date of Service February 26, 2022 Assessment & Plan (1) Septic shock due to urinary tract infection: Plan: Septic shock 2/2 UTI History of transrectal ultrasound and standard 12 core biopsy 02/24, likely with neurologic bacteremic seeding. Patient did have perioperative Cipro at that time. Blood cultures positive for GNB pending speciation Empiric daptomycin discontinued, continue Rocephin. Narrowed from cefepime given clinical improvement. Flagyl discontinued Pathology from above biopsy benign, urology following With some element of adrenal suppression with chronic prednisone 5 mg at home. Continued on hydrocortisone every 8 hours at this time, if doing well and hemodynamically stable tomorrow will narrow to twice daily Continued on Plasma-Lyte 125 cc/h, urine output is improving (2) Retroperitoneal hematoma: Plan: - Bilateral retroperitoneal hematomas/right subcapsular hematoma Improving on CT compared to prior Continue to follow at this time, avoid anticoagulation/antiplatelet agents (3) Aortic valve endocarditis: Plan: - Completed antibiotics on 02/06/2022 Blood cultures positive for gram-negative bacteria, low risk for endocarditis (4) Renal transplant recipient: Plan: - Continuing CellCept and cyclosporine and routine support medications -Nephrology consulted/following. Continue immunosuppressants (5) CKD (chronic kidney disease) stage 4, GFR 15-29 ml/min: Plan: Baseline creatinine 2.73.3 Creatinine downtrending from 3.33-3.29 BUN very elevated, urine output is improving and starting to downtrend Patient is with astrocytes likely from uremia and some sedation, gradually improving suspect due to uremia and sepsis (6) Hypertension: Plan: Hold all medications due to hypotension (7) Sarcoidosis: (8) GERD (gastroesophageal reflux disease): Plan: Continue omeprazole/pantoprazole (9) Depression: (10) BPH (benign prostatic hyperplasia): Plan: As noted. Biopsy benign. Continue urology follow-up, bladder scan every shift and cath/Bond if postvoid residual greater than 350. Admission and Anticipated Discharge Date Admission Date: February 26, 2022 Subjective Kirby is seen at the bedside with his sister present. He reports he was very fatigued last night and difficult to arouse, feels a little bit better this morning but still weak and shaky. Has felt feverish with tremors and some chills, although notes he has not had a actual elevated temperature overnight. Denies difficulty breathing, shortness of breath, chest pain, chest pressure. Reports his urine output is starting to improve, denies dysuria. Reports that he feels he always has a tremor, and notes that this seems similar to prior although on exam and having known patient seems a little increased and sister also notes that his tremor seems worse than normal. He was prescribed propranolol as an outpatient for this which she has not taken. Review of Systems Review of Systems: All systems reviewed & are unremarkable except as noted in Subjective Physical Exam Physical Exam: General: A&Ox3. NAD. Cooperative. HEENT: Atraumatic, normocephalic. Pulm: CTAB A&P. -wheezes, -rales, -rhonchi. Symmetrical chest rise. No increase in work of breathing. No respiratory distress. Cardiac: RRR, -mrg. Radial pulses intact and symmetrical. Abdominal: Nontender, nondistended, soft. BS present. Extremities: Alumni Secretary strength, ankle dorsiflexion/plantarflexion intact, hip flexion weak against resistance but symmetrical bilaterally. Sensation of soft touch in hands and feet intact bilaterally. Mild asterixis is present on wrist extension bilaterally. Results & Data Results & Data ([facility]) Vital Signs (Past 12 Hours) Vital Signs Temp Pulse Pulse Resp BP BP Pulse Ox 02/26/22 13:00 77 17 99 02/26/22 13:00 140/86 02/26/22 12:00 77 24 97 02/26/22 12:00 150/88 H 02/26/22 11:00 82 17 95 02/26/22 10:00 75 22 97 02/26/22 10:00 133/85 02/26/22 09:00 73 13 99 02/26/22 09:00 138/85 02/26/22 08:00 79 21 98 02/26/22 08:00 132/67 02/26/22 07:00 74 18 98 02/26/22 07:00 138/79 02/26/22 08:00 36.7 C 02/26/22 06:02 76 20 137/76 100 02/26/22 06:00 76 17 100 02/26/22 05:18 37.3 C 02/26/22 05:10 72 18 133/81 99 02/26/22 05:00 75 19 99 02/26/22 04:00 76 18 100 02/26/22 04:00 111/66 02/26/22 04:28 72 02/26/22 03:45 76 17 100 02/26/22 03:30 75 17 100 02/26/22 03:15 86/55 L 02/26/22 02:39 82/50 L 02/26/22 02:31 78 14 97 02/26/22 02:31 68/44 L 02/26/22 02:30 84 17 96 02/26/22 02:24 76/47 L 02/26/22 02:24 85 15 97 02/26/22 02:23 85 19 95 02/26/22 02:23 72/44 L 02/26/22 02:20 82/42 L 02/26/22 02:20 86 19 97 02/26/22 02:15 86 18 98 02/26/22 02:12 85 15 97 02/26/22 03:33 79 20 99 02/26/22 03:17 02/26/22 03:17 37.3 C 72 18 86/55 L 100 O2 Del Method FiO2 02/26/22 13:00 02/26/22 13:00 02/26/22 12:00 02/26/22 12:00 02/26/22 11:00 02/26/22 10:00 02/26/22 10:00 02/26/22 09:00 02/26/22 09:00 02/26/22 08:00 02/26/22 08:00 02/26/22 07:00 02/26/22 07:00 02/26/22 08:00 02/26/22 06:02 02/26/22 06:00 02/26/22 05:18 02/26/22 05:10 02/26/22 05:00 02/26/22 04:00 02/26/22 04:00 02/26/22 04:28 02/26/22 03:45 02/26/22 03:30 02/26/22 03:15 02/26/22 02:39 02/26/22 02:31 02/26/22 02:31 02/26/22 02:30 02/26/22 02:24 02/26/22 02:24 02/26/22 02:23 02/26/22 02:23 02/26/22 02:20 02/26/22 02:20 02/26/22 02:15 02/26/22 02:12 02/26/22 03:33 30 02/26/22 03:17 CPAP 30 02/26/22 03:17 CPAP 30 PG Care Time/CCT Total # of Minutes Spent Total Time Spent with Patient: Total time spent is greater than 50% in coordination of care (as documented) at patient's floor/unit and/or counseling patient: Coding Level of Care Code 98134 Subseq Hosp Care Lvl 3 Diagnoses Septic shock due to urinary tract infection A41.9; R65.21; N39.0 Retroperitoneal hematoma K66.1 Aortic valve endocarditis I35.8 Renal transplant recipient Z94.0 CKD (chronic kidney disease) stage 4, GFR 15-29 ml/min N18.4 Hypertension I10 Hypertension type: essential hypertension Sarcoidosis D86.9 GERD (gastroesophageal reflux disease) K21.9 Esophagitis presence: without esophagitis Depression F32.89 Depression Type: other depression BPH (benign prostatic hyperplasia) N40.0 (1) Hypertension Hypertension type: essential hypertension Qualified Code(s): I10 - Essential (primary) hypertension (2) GERD (gastroesophageal reflux disease) Esophagitis presence: without esophagitis Qualified Code(s): K21.9 - Gastro- esophageal reflux disease without esophagitis (3) Depression Depression Type: other depression Qualified Code(s): F32.89 - Other specified depressive episodes
[2022-02-26] MEDS ORDERED: [UNRECOGNIZED DRUG - REMARK] SCH (16:00)
--- NOTE | 2022-02-26 21:18 | Electrocardiogram Report ---
Test Reason : Blood Pressure : / mmHG Vent. Rate : 102 BPM Atrial Rate : 102 BPM P-R Int : 156 ms QRS Dur : 136 ms QT Int : 356 ms P-R-T Axes : 028 -48 034 degrees QTc Int : 463 ms Poor data quality, interpretation may be adversely affected Sinus tachycardia Right bundle branch block Left anterior fascicular block Bifascicular block Minimal voltage criteria for LVH, may be normal variant Abnormal ECG When compared with ECG of 21-JAN-2022 11:10, Vent. rate has increased BY 38 BPM Confirmed by Brayden Marte ([id number]) on 02/26/2022 9:18:12 PM Referred By: REFERRED SELF Confirmed By:Brayden Marte
[2022-02-26] MEDS: TAMSULOSIN HCL 0.4 MG CAP PO SCH (22:10)
[2022-02-26] MEDS ORDERED: DAPTOmycin 550 MG in SYRINGE 0 ML IV SCH (23:00)
[2022-02-27] MEDS: NORMOSOL-R 1,000 ML IV SCH ×2 (05:19→14:31)
[2022-02-27] MEDS: HYDROCORTISONE SOD 50 MG in SYRINGE 0 ML IV SCH ×2 (05:19→17:50)
[2022-02-27 05:44] LABS: INR 1.2 (0.9-1.1); Partial Thromboplastin Ratio 1.2; Partial Thromboplastin Time 33.8 Seconds (21.0-31.0); Prothrombin Time 12.4 Seconds (9.0-12.0)
[2022-02-27 05:50] LABS: Albumin Globulin Ratio 1.4 (0.9-2); Albumin Level 3.7 gm/dl (3.4-5.0); Bilirubin,Total 0.7 mg/dl (0.2-1.0); Calcium 9.1 mg/dl (8.5-10.1); Est GFR (African American) 24.3 ml/min; Globulin 2.7 gm/dl (2.5-4.0); Magnesium 2.2 mg/dl (1.7-2.4); Potassium 4.2 mmol/L (3.5-5.1); Total Protein 6.4 gm/dl (6.0-8.3)
[2022-02-27 05:56] LABS: Hematocrit (blood only) 29.7 % (40.1-51.0); Hemoglobin 9.5 g/dl (14.0-18.0); Mean Corpuscular Hemoglobin 30.1 pg (25.0-34.0); Mean Platelet Volume 11.1 fL (9.4-12.4); Platelet Count 143 K/uL (130-400); RDW Coefficient of Variation 15.3 % (11.5-14.5); RDW Standard Deviation 52.9 fL (36.4-46.3); Red Blood Count 3.16 M/uL (4.63-6.08); White Blood Count 17.18 K/ul (4.8-10.8)
[2022-02-27 05:57] LABS: Basophils # (auto) 0.04 K/uL (0-0.2); Basophils % (auto) 0.2 %; Echinocytes 1+; Eosinophils # (auto) 0.01 K/uL (0-0.50); Eosinophils % (auto) 0.1 %; Immature Granulocytes % (auto) 0.6 %; Lymphocytes # (auto) 0.26 K/uL (1.2-3.4); Lymphocytes % (auto) 1.5 %; Monocytes # (auto) 0.68 K/uL (0.24-0.82); Neutrophils # (auto) 16.09 K/uL (1.4-6.5); Neutrophils % (auto) 93.6 %
--- NOTE | 2022-02-27 06:59 | Urology Progress Note ---
Date of Service February 27, 2022 Assessment & Plan (1) Sepsis: Plan 61-year-old man with sepsis following prostate needle biopsy Continues to improve. Continue broad-spectrum antibiotics and tailor down once sensitivities are back. Recommend total of 10-14 days. Urology will follow peripherally. We will schedule outpatient follow-up. Admission and Anticipated Discharge Date Admission Date: February 26, 2022 Subjective Afebrile with stable vitals overnight. Leukocytosis is downtrending to 17 today. Blood culture still prelim gram-negative bacilli. He is currently on ceftriaxone. Subjectively reports feeling. Still emptying bladder without issues. Review of Systems Review of Systems: 14 point review of systems negative outside of what is listed above in HPI Physical Exam Physical Exam: General: Alert and oriented, no acute distress HEENT: Normocephalic, mucous membranes moist Pulmonary: Nonlabored respirations Abdomen: Nondistended Extremities: Moves all 4 spontaneously Neuro: No gross deficits Skin: Warm, dry, no rashes noted Results & Data ([facility]) Vital Signs (Past 12 Hours) Vital Signs Temp Pulse Resp BP Pulse Ox Pulse Ox O2 Del Method 02/27/22 06:00 59 L 13 100 02/27/22 06:00 145/88 H 02/27/22 05:00 61 30 H 100 02/27/22 04:00 60 20 98 02/27/22 04:00 152/91 H 02/27/22 03:00 61 13 99 02/27/22 03:00 128/77 02/27/22 02:00 60 13 99 02/27/22 04:00 95 02/27/22 03:00 36.9 C 02/27/22 01:00 64 15 98 02/27/22 00:00 67 15 96 02/27/22 00:00 147/89 H 02/27/22 00:32 84 20 98 02/26/22 23:05 Room Air 02/27/22 00:00 65 02/26/22 23:00 65 17 98 02/26/22 23:00 36.8 C 136/79 02/26/22 22:00 65 17 99 02/26/22 22:00 127/78 02/26/22 21:00 66 17 97 02/26/22 21:00 137/78 02/26/22 20:00 69 16 96 02/26/22 20:00 36.9 C 143/82 H 02/26/22 19:00 73 20 94 02/26/22 19:00 129/77 O2 Del Method FiO2 02/27/22 06:00 02/27/22 06:00 02/27/22 05:00 02/27/22 04:00 02/27/22 04:00 02/27/22 03:00 02/27/22 03:00 02/27/22 02:00 02/27/22 04:00 CPAP 02/27/22 03:00 02/27/22 01:00 02/27/22 00:00 02/27/22 00:00 02/27/22 00:32 25 02/26/22 23:05 02/27/22 00:00 02/26/22 23:00 02/26/22 23:00 02/26/22 22:00 02/26/22 22:00 02/26/22 21:00 02/26/22 21:00 02/26/22 20:00 02/26/22 20:00 02/26/22 19:00 02/26/22 19:00 PG Care Time/CCT Total # of Minutes Spent Total Time Spent with Patient: Total time spent is greater than 50% in coordination of care (as documented) at patient's floor/unit and/or counseling patient: Coding Level of Care Code 51091 Subseq Hosp Care Lvl 2 Diagnoses Sepsis A41.9 Sepsis acute organ dysfunction status: without acute organ dysfunction Sepsis type: sepsis due to unspecified organism (1) Sepsis Sepsis acute organ dysfunction status: without acute organ dysfunction Sepsis type: sepsis due to unspecified organism Qualified Code(s): A41.9 - Sepsis, unspecified organism
[2022-02-27] MEDS: FEBUXOSTAT PO SCH (09:14)
[2022-02-27] MEDS: cycloSPORINE 100 MG CAP PO SCH ×2 (09:15→20:48)
[2022-02-27] MEDS: CHOLECALCIFEROL 1,000 UNITS 25 MCG TAB PO SCH (09:16)
[2022-02-27] MEDS: GABAPENTIN 300 MG CAP PO SCH ×3 (09:16→20:48)
[2022-02-27] MEDS: PANTOprazole 40 MG TAB PO SCH (09:16)
[2022-02-27] MEDS: MYCOPHENOLATE MOFETIL 250 MG CAP PO SCH ×2 (09:17→20:48)
[2022-02-27] MEDS: DULoxetine HCL 60 MG CAP PO SCH (09:17)
--- NOTE | 2022-02-27 10:16 | XCELERA ---
[id number]
--- NOTE | 2022-02-27 12:41 | Hospitalist Progress Note ---
Date of Service February 27, 2022 Assessment & Plan (1) Septic shock due to urinary tract infection: Plan: Septic shock 2/2 UTI History of transrectal ultrasound and standard 12 core biopsy 02/24, likely with neurologic bacteremic seeding. Patient did have perioperative Cipro at that time. Blood cultures positive for GNB pending speciation Empiric daptomycin discontinued, continue Rocephin. Narrowed from cefepime given clinical improvement. Flagyl discontinued Pathology from above biopsy benign, urology following With some element of adrenal suppression with chronic prednisone 5 mg at home. Continued on hydrocortisone every 8 hours at this time, if doing well and hemodynamically stable tomorrow will narrow to twice daily Patient was with some hypotension and elevated troponin which had 3 sequential rises, limited echo for wall motion reevaluation question criticalness/septic cardiomyopathy evaluation. EF shows no regional wall motion or normalities, EF 55 to 60%. Hemodynamics improving and troponin now downtrending. P.o. intake improved, hemodynamically stable, IVF discontinued GNB pending speciation from blood cultures, continue to follow. Discussed w/ Uro, 2-week course of treatment adequate. (2) Retroperitoneal hematoma: Plan: - Bilateral retroperitoneal hematomas/right subcapsular hematoma Improving on CT compared to prior Continue to follow at this time, avoid anticoagulation/antiplatelet agents (3) Aortic valve endocarditis: Plan: - Completed antibiotics on 02/06/2022 Blood cultures positive for gram-negative bacteria, low risk for endocarditis (4) Renal transplant recipient: Plan: - Continuing CellCept and cyclosporine and routine support medications -Nephrology consulted/following. Continue immunosuppressants (5) CKD (chronic kidney disease) stage 4, GFR 15-29 ml/min: Plan: Baseline creatinine 2.73.3 Creatinine downtrending BUN very elevated >100 during admit, urine output is improving and continuing to downtrend with improvement in tremors Initially w asterixis likely from uremia and some sedation, gradually improving suspect due to uremia and sepsis Asterixis resolved with downtrending BUN (6) Hypertension: Plan: BP normal/elevated today resuming losartan, can resume propranolol if continue to do well (7) Sarcoidosis: (8) GERD (gastroesophageal reflux disease): Plan: Continue omeprazole/pantoprazole (9) Depression: (10) BPH (benign prostatic hyperplasia): Plan: As noted. Biopsy benign. Continue urology follow-up, bladder scan every shift and cath/Bond if postvoid residual greater than 350. Admission and Anticipated Discharge Date Admission Date: February 26, 2022 Subjective Seen at bedside. Feels significantly improved from yesterday. No fever, chills, sweats. No chest pain/chest pressure. Tremors are greatly improved from yesterday, no wrist flapping with extension today. No lightheadedness/dizziness. No dysuria. No abdominal pain. Feels he is progressing towards going home, is hopeful that his sensitivities will not show any resistance patterns so he can go home on orals Review of Systems Review of Systems: All systems reviewed & are unremarkable except as noted in Subjective Physical Exam Physical Exam: General: A&Ox3. NAD. Cooperative. HEENT: Atraumatic, normocephalic. Vision/hearing intact Pulm: CTAB A&P. -wheezes, -rales, -rhonchi. Symmetrical chest rise. No increase in work of breathing. No respiratory distress. Cardiac: RRR, -mrg. Radial pulses intact and symmetrical. Abdominal: Nontender, nondistended, soft. BS present. 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 No asterixis today. Results & Data Results & Data ([facility]) Vital Signs (Past 12 Hours) Vital Signs Temp Pulse Pulse Resp BP BP Pulse Ox 02/27/22 09:53 02/27/22 08:00 60 02/27/22 08:02 36.5 C 62 18 140/90 100 02/27/22 06:00 59 L 13 100 02/27/22 06:00 145/88 H 02/27/22 05:00 61 30 H 100 02/27/22 04:00 60 20 98 02/27/22 04:00 152/91 H 02/27/22 03:00 61 13 99 02/27/22 03:00 128/77 02/27/22 02:00 60 13 99 02/27/22 04:00 02/27/22 03:00 36.9 C 02/27/22 01:00 64 15 98 Pulse Ox O2 Del Method O2 Del Method 02/27/22 09:53 Room Air 02/27/22 08:00 02/27/22 08:02 BiPAP 02/27/22 06:00 02/27/22 06:00 02/27/22 05:00 02/27/22 04:00 02/27/22 04:00 02/27/22 03:00 02/27/22 03:00 02/27/22 02:00 02/27/22 04:00 95 CPAP 02/27/22 03:00 02/27/22 01:00 PG Care Time/CCT Total # of Minutes Spent Total Time Spent with Patient: Total time spent is greater than 50% in coordination of care (as documented) at patient's floor/unit and/or counseling patient: Coding Level of Care Code 55523 Subseq Hosp Care Lvl 2 Diagnoses Septic shock due to urinary tract infection A41.9; R65.21; N39.0 Retroperitoneal hematoma K66.1 Aortic valve endocarditis I35.8 Renal transplant recipient Z94.0 CKD (chronic kidney disease) stage 4, GFR 15-29 ml/min N18.4 Hypertension I10 Hypertension type: essential hypertension Sarcoidosis D86.9 GERD (gastroesophageal reflux disease) K21.9 Esophagitis presence: without esophagitis Depression F32.89 Depression Type: other depression BPH (benign prostatic hyperplasia) N40.0 (1) Depression Depression Type: other depression Qualified Code(s): F32.89 - Other specified depressive episodes (2) GERD (gastroesophageal reflux disease) Esophagitis presence: without esophagitis Qualified Code(s): K21.9 - Gastro- esophageal reflux disease without esophagitis (3) Hypertension Hypertension type: essential hypertension Qualified Code(s): I10 - Essential (primary) hypertension
[2022-02-27] MEDS: cefTRIAXone SODIUM 2,000 MG in DEXTROSE 5% 50 ML IV SCH (13:25)
[2022-02-27] MEDS: LOSARTAN POTASSIUM 50 MG TAB PO SCH (15:40)
[2022-02-27] MEDS: TAMSULOSIN HCL 0.4 MG CAP PO SCH (20:49)
[2022-02-28] MEDS: HYDROCORTISONE SOD 50 MG in SYRINGE 0 ML IV SCH (05:53)
[2022-02-28 06:40] LABS: Basophils # (auto) 0.04 K/uL (0-0.2); Basophils % (auto) 0.3 %; Eosinophils # (auto) 0.18 K/uL (0-0.50); Eosinophils % (auto) 1.4 %; Hematocrit (blood only) 28.6 % (40.1-51.0); Hemoglobin 9.4 g/dl (14.0-18.0); Immature Granulocytes % (auto) 0.8 %; Lymphocytes # (auto) 0.32 K/uL (1.2-3.4); Lymphocytes % (auto) 2.5 %; Mean Corpuscular Hemoglobin 30.5 pg (25.0-34.0); Mean Corpuscular Hgb Conc 32.9 g/dL (32.0-36.0); Mean Corpuscular Volume 92.9 fL (80.0-100.0); Mean Platelet Volume 11.6 fL (9.4-12.4); Monocytes # (auto) 0.98 K/uL (0.24-0.82); Monocytes % (auto) 7.8 %; Neutrophils % (auto) 87.2 %; Platelet Count 139 K/uL (130-400); RDW Coefficient of Variation 15.6 % (11.5-14.5); RDW Standard Deviation 53.5 fL (36.4-46.3); Red Blood Count 3.08 M/uL (4.63-6.08); White Blood Count 12.62 K/ul (4.8-10.8)
[2022-02-28 06:51] LABS: Partial Thromboplastin Ratio 1.2; Partial Thromboplastin Time 33.9 Seconds (21.0-31.0); Prothrombin Time 10.9 Seconds (9.0-12.0)
[2022-02-28 07:58] LABS: Albumin Globulin Ratio 1.4 (0.9-2); Albumin Level 3.4 gm/dl (3.4-5.0); BUN Creatinine Ratio 29.3 (10-20); Bilirubin,Total 0.5 mg/dl (0.2-1.0); Calcium 8.8 mg/dl (8.5-10.1); Creatinine Clr Calc Pharmacy 38.1 ml/min; Est GFR (African American) 27.7 ml/min; Est GFR (Non-African American) 23.9 ml/min; Globulin 2.5 gm/dl (2.5-4.0); Magnesium 2.3 mg/dl (1.7-2.4); Phosphorus 3.7 mg/dl (2.5-4.9); Total Protein 5.9 gm/dl (6.0-8.3)
[2022-02-28] MEDS: PANTOprazole 40 MG TAB PO SCH (09:02)
[2022-02-28] MEDS: DULoxetine HCL 60 MG CAP PO SCH (09:02)
[2022-02-28] MEDS: GABAPENTIN 300 MG CAP PO SCH ×3 (09:02→20:18)
[2022-02-28] MEDS: LOSARTAN POTASSIUM 50 MG TAB PO SCH (09:02)
[2022-02-28] MEDS: MYCOPHENOLATE MOFETIL 250 MG CAP PO SCH ×2 (09:02→20:19)
[2022-02-28] MEDS: CHOLECALCIFEROL 1,000 UNITS 25 MCG TAB PO SCH (09:02)
[2022-02-28] MEDS: cycloSPORINE 100 MG CAP PO SCH ×2 (09:02→20:17)
[2022-02-28] MEDS: FEBUXOSTAT PO SCH (09:03)
[2022-02-28] MEDS: cefTRIAXone SODIUM 2,000 MG in DEXTROSE 5% 50 ML IV SCH (11:51)
[2022-02-28] MEDS: predniSONE 5 MG TAB PO SCH (11:51)
--- NOTE | 2022-02-28 12:49 | Hospitalist Progress Note ---
Date of Service February 28, 2022 Assessment & Plan (1) Septic shock due to urinary tract infection: Plan: Septic shock 2/2 UTI History of transrectal ultrasound and standard 12 core biopsy 02/24, likely with neurologic bacteremic seeding. Patient did have perioperative Cipro at that time. Blood cultures positive for GNB pending speciation - won't be back till tomorrow per microbiology Empiric daptomycin discontinued, continue Rocephin. Narrowed from cefepime given clinical improvement. Flagyl discontinued. Pathology from above biopsy benign, urology following With some element of adrenal suppression with chronic prednisone 5 mg at home. Can now discontinue hydrocortisone and continue his chronic prednisone 5mg PO daily. GNB pending speciation from blood cultures, continue to follow. Previously discussed w/ Uro, 2-week course of treatment adequate. (2) Retroperitoneal hematoma: Plan: - Bilateral retroperitoneal hematomas/right subcapsular hematoma Improving on CT compared to prior Continue to follow at this time, avoid anticoagulation/antiplatelet agents (3) Aortic valve endocarditis: Plan: - Completed antibiotics on 02/06/2022 Blood cultures positive for gram-negative bacteria, low risk for endocarditis (4) Renal transplant recipient: Plan: - Continuing CellCept and cyclosporine and routine support medications (5) CKD (chronic kidney disease) stage 4, GFR 15-29 ml/min: Plan: Baseline creatinine 2.73.3 Creatinine downtrending BUN very elevated >100 during admit, urine output is improving and continuing to downtrend with improvement in tremors Initially w asterixis likely from uremia and some sedation, gradually improving suspect due to uremia and sepsis Asterixis resolved with downtrending BUN (6) Hypertension: Plan: BP normal/elevated today resuming losartan, can resume propranolol if continue to do well (7) Sarcoidosis: (8) GERD (gastroesophageal reflux disease): Plan: Continue omeprazole/pantoprazole (9) Depression: (10) BPH (benign prostatic hyperplasia): Plan: As noted. Biopsy benign. Continue urology follow-up, bladder scan every shift and cath/Bond if postvoid residual greater than 350. Plan VTE Prophyalxis - SCD, not for anticoagulation due to retroperitoneal hematoma Diet - heat healthy, dialysis renal Disposition - continued admission to PCU pending full culture identification Admission and Anticipated Discharge Date Admission Date: February 26, 2022 Subjective Patient's biggest concern was getting back to work today. We discussed leaving against medical advice and that culture results would not be back till tomorrow (called microbiology earlier in the day). He denies any current urinary issues. No CVA tenderness. No fever or chills. Patient is immunosuppressed with a renal transplant. Convinced to stay given not yet having bacteria full identification. Review of Systems Review of Systems: All systems reviewed & are unremarkable except as noted in Subjective Physical Exam Constitutional: WD/WN, vitals as above no acute distress ENMT: external ear and nose normal, oropharynx normal Neck: trachea midline, no thyromegaly Respiratory: normal respiratory effort, lungs clear to auscultation Cardiovascular: Rate/Rhythm: regular rate and regular rhythm Heart Sounds: no murmur Extremities: normal capillary refill and + pedal edema (2+ pitting pre-tibial (pt reports at baseline)); no calf tenderness Gastrointestinal (Abdomen): Inspection/Auscultation: abdomen normal to inspection and normal bowel sounds; abdomen not distended Percussion/Palpation: abdomen soft; abdomen nontender, no guarding and abdomen not rigid Musculoskeletal: no cyanosis or clubbing, extremities motor strength 5/5 Skin: no rashes, warm and dry (chronic venous stasis changes of b/l lower extremities) Neurologic: moves all extremities and awake; not confused Psychiatric: A+Ox3, euthymic affect Genitourinary: no CVA tenderness Results & Data Results & Data ([facility]) Vital Signs (Past 12 Hours) Vital Signs Temp Pulse Pulse Resp BP Pulse Ox O2 Del Method 02/28/22 11:17 36.6 C 59 L 16 149/83 H 97 Room Air 02/28/22 10:28 Room Air 02/28/22 08:08 36.5 C 54 L 16 150/77 H 96 Room Air 02/28/22 07:08 52 L 02/28/22 03:10 61 14 98 02/28/22 03:00 36.5 C 63 18 128/77 98 CPAP FiO2 02/28/22 11:17 02/28/22 10:28 02/28/22 08:08 02/28/22 07:08 02/28/22 03:10 21 02/28/22 03:00 PG Care Time/CCT Total # of Minutes Spent Total Time Spent with Patient: Total time spent is greater than 50% in coordination of care (as documented) at patient's floor/unit and/or counseling patient: Coding Level of Care Code 42468 Subseq Hosp Care Lvl 3 Diagnoses Septic shock due to urinary tract infection A41.9; R65.21; N39.0 Retroperitoneal hematoma K66.1 Aortic valve endocarditis I35.8 Renal transplant recipient Z94.0 CKD (chronic kidney disease) stage 4, GFR 15-29 ml/min N18.4 Hypertension I10 Hypertension type: essential hypertension Sarcoidosis D86.9 GERD (gastroesophageal reflux disease) K21.9 Esophagitis presence: without esophagitis Depression F32.89 Depression Type: other depression BPH (benign prostatic hyperplasia) N40.0 (1) Depression Depression Type: other depression Qualified Code(s): F32.89 - Other specified depressive episodes (2) GERD (gastroesophageal reflux disease) Esophagitis presence: without esophagitis Qualified Code(s): K21.9 - Gastro-esophageal reflux disease without esophagitis (3) Hypertension Hypertension type: essential hypertension Qualified Code(s): I10 - Essential (primary) hypertension
[2022-02-28] MEDS: HYDROCORTISONE SOD 10 MG in SYRINGE 0 ML IV SCH (20:19)
[2022-02-28] MEDS: TAMSULOSIN HCL 0.4 MG CAP PO SCH (20:20)
[2022-03-01 06:29] LABS: Partial Thromboplastin Ratio 1.1; Partial Thromboplastin Time 31.1 Seconds (21.0-31.0)
[2022-03-01] MEDS: HYDROCORTISONE SOD 10 MG in SYRINGE 0 ML IV SCH (08:46)
[2022-03-01] MEDS: MYCOPHENOLATE MOFETIL 250 MG CAP PO SCH ×2 (08:46→20:25)
[2022-03-01] MEDS: PANTOprazole 40 MG TAB PO SCH (08:46)
[2022-03-01] MEDS: GABAPENTIN 300 MG CAP PO SCH ×3 (08:47→20:24)
[2022-03-01] MEDS: cycloSPORINE 100 MG CAP PO SCH ×2 (08:47→20:23)
[2022-03-01] MEDS: CHOLECALCIFEROL 1,000 UNITS 25 MCG TAB PO SCH (08:47)
[2022-03-01] MEDS: DULoxetine HCL 60 MG CAP PO SCH (08:47)
[2022-03-01] MEDS: LOSARTAN POTASSIUM 50 MG TAB PO SCH (08:48)
[2022-03-01] MEDS: FEBUXOSTAT PO SCH (08:48)
[2022-03-01] MEDS: predniSONE 5 MG TAB PO SCH (08:48)
[2022-03-01] MEDS: cefTRIAXone SODIUM 2,000 MG in DEXTROSE 5% 50 ML IV SCH (11:37)
[2022-03-01 13:06] LABS: Basophils # (auto) 0.03 K/uL (0-0.2); Basophils % (auto) 0.3 %; Eosinophils # (auto) 0.25 K/uL (0-0.50); Eosinophils % (auto) 2.4 %; Hematocrit (blood only) 31.4 % (40.1-51.0); Hemoglobin 10.1 g/dl (14.0-18.0); Immature Granulocytes # (auto) 0.07 K/uL (0.00-0.02); Immature Granulocytes % (auto) 0.7 %; Lymphocytes # (auto) 0.27 K/uL (1.2-3.4); Lymphocytes % (auto) 2.6 %; Mean Corpuscular Hemoglobin 30.2 pg (25.0-34.0); Mean Corpuscular Hgb Conc 32.2 g/dL (32.0-36.0); Monocytes # (auto) 0.63 K/uL (0.24-0.82); Monocytes % (auto) 6.2 %; Neutrophils # (auto) 8.99 K/uL (1.4-6.5); Neutrophils % (auto) 87.8 %; Platelet Count 165 K/uL (130-400); RDW Coefficient of Variation 15.7 % (11.5-14.5); RDW Standard Deviation 54.4 fL (36.4-46.3); Red Blood Count 3.34 M/uL (4.63-6.08); White Blood Count 10.24 K/ul (4.8-10.8)
[2022-03-01 13:26] LABS: BUN Creatinine Ratio 27.1 (10-20); Calcium 9.3 mg/dl (8.5-10.1); Creatinine Clr Calc Pharmacy 39.5 ml/min; Est GFR (African American) 28.9 ml/min
[2022-03-01] MEDS: ERTAPENEM SODIUM 1,000 MG in SYRINGE 0 ML IV SCH (13:50)
--- NOTE | 2022-03-01 15:32 | Hospitalist Progress Note ---
Date of Service March 01, 2022 Assessment & Plan (1) Septic shock due to urinary tract infection: Plan: Septic shock 2/2 UTI History of transrectal ultrasound and standard 12 core biopsy 02/24, likely with neurologic bacteremic seeding. Patient did have perioperative Cipro at that time. Pathology from above biopsy benign, urology following With some element of adrenal suppression with chronic prednisone 5 mg at home. Can now discontinue hydrocortisone and continue his chronic prednisone 5mg PO daily. Identified as ESBL E. coli - will start on ertapenem and consult ID for advice on duration given immunosuppression and transplanted kidney. (2) Retroperitoneal hematoma: Plan: - Bilateral retroperitoneal hematomas/right subcapsular hematoma Improving on CT compared to prior Continue to follow at this time, avoid anticoagulation/antiplatelet agents (3) Aortic valve endocarditis: Plan: - Completed antibiotics on 02/06/2022 Blood cultures positive for gram-negative bacteria, low risk for endocarditis (4) Renal transplant recipient: Plan: - Continuing CellCept and cyclosporine and routine support medications (5) CKD (chronic kidney disease) stage 4, GFR 15-29 ml/min: Plan: Baseline creatinine 2.73.3 Creatinine downtrending BUN very elevated >100 during admit, urine output is improving and continuing to downtrend with improvement in tremors Initially w asterixis likely from uremia and some sedation, gradually improving suspect due to uremia and sepsis Asterixis resolved with downtrending BUN (6) Hypertension: Plan: BP normal/elevated today resuming losartan, can resume propranolol today (7) Sarcoidosis: (8) GERD (gastroesophageal reflux disease): Plan: Continue omeprazole/pantoprazole (9) Depression: (10) BPH (benign prostatic hyperplasia): Plan: As noted. Biopsy benign. Continue urology follow-up, bladder scan every shift and cath/Bond if postvoid residual greater than 350. Plan VTE Prophyalxis - SCD, not for anticoagulation due to retroperitoneal hematoma Diet - heat healthy, dialysis renal Disposition - continued admission to PCU pending full culture identification Admission and Anticipated Discharge Date Admission Date: February 26, 2022 Subjective Patient feels mostly back to his baseline, improving daily. No dizziness on standing. Ambulatory around the room. Urine culture growing ESBL E. coli. No fever or chills from patient. Review of Systems Review of Systems: All systems reviewed & are unremarkable except as noted in Subjective Physical Exam Constitutional: WD/WN, vitals as above no acute distress Respiratory: normal respiratory effort, lungs clear to auscultation Cardiovascular: Rate/Rhythm: regular rate and regular rhythm Heart Sounds: no murmur Extremities: normal capillary refill and + pedal edema (2+ pitting pre-tibial (pt reports at baseline)); no calf tenderness Gastrointestinal (Abdomen): Inspection/Auscultation: abdomen normal to inspection and normal bowel sounds; abdomen not distended Percussion/Palpation: abdomen soft; abdomen nontender, no guarding and abdomen not rigid Musculoskeletal: no cyanosis or clubbing, extremities motor strength 5/5 Skin: no rashes, warm and dry (chronic venous stasis changes of b/l lower extremities) Neurologic: moves all extremities and awake; not confused Psychiatric: A+Ox3, euthymic affect Results & Data Results & Data ([facility]) Vital Signs (Past 12 Hours) Vital Signs Temp Pulse Pulse Resp BP Pulse Ox O2 Del Method 03/01/22 15:26 36.5 C 62 16 163/84 H 98 Room Air 03/01/22 11:08 36.6 C 65 16 145/87 H 97 Room Air 03/01/22 10:12 Room Air, CPAP 03/01/22 08:00 54 L 03/01/22 08:01 36.5 C 55 L 16 137/74 98 Room Air 03/01/22 07:23 60 16 97 03/01/22 03:40 60 14 97 FiO2 03/01/22 15:26 03/01/22 11:08 03/01/22 10:12 03/01/22 08:00 03/01/22 08:01 03/01/22 07:23 21 03/01/22 03:40 21 PG Care Time/CCT Total # of Minutes Spent Total Time Spent with Patient: Total time spent is greater than 50% in coordination of care (as documented) at patient's floor/unit and/or counseling patient: Coding Level of Care Code 27799 Subseq Hosp Care Lvl 2 Diagnoses Septic shock due to urinary tract infection A41.9; R65.21; N39.0 Retroperitoneal hematoma K66.1 Aortic valve endocarditis I35.8 Renal transplant recipient Z94.0 CKD (chronic kidney disease) stage 4, GFR 15-29 ml/min N18.4 Hypertension I10 Hypertension type: essential hypertension Sarcoidosis D86.9 GERD (gastroesophageal reflux disease) K21.9 Esophagitis presence: without esophagitis Depression F32.89 Depression Type: other depression BPH (benign prostatic hyperplasia) N40.0 (1) Depression Depression Type: other depression Qualified Code(s): F32.89 - Other specified depressive episodes (2) GERD (gastroesophageal reflux disease) Esophagitis presence: without esophagitis Qualified Code(s): K21.9 - Gastro-esophageal reflux disease without esophagitis (3) Hypertension Hypertension type: essential hypertension Qualified Code(s): I10 - Essential (primary) hypertension
[2022-03-01] MEDS: MAGNESIUM OXIDE 400 MG TAB PO SCH (20:25)
[2022-03-01] MEDS: TAMSULOSIN HCL 0.4 MG CAP PO SCH (20:27)
[2022-03-01] MEDS: PROPRANOLOL HCL 10 MG TAB PO SCH (20:27)
[2022-03-02] MEDS: MAGNESIUM OXIDE 400 MG TAB PO SCH (08:48)
[2022-03-02] MEDS: MYCOPHENOLATE MOFETIL 250 MG CAP PO SCH (08:48)
[2022-03-02] MEDS: predniSONE 5 MG TAB PO SCH (08:48)
[2022-03-02] MEDS: PANTOprazole 40 MG TAB PO SCH (08:48)
[2022-03-02] MEDS: cycloSPORINE 100 MG CAP PO SCH (08:48)
[2022-03-02] MEDS: LOSARTAN POTASSIUM 50 MG TAB PO SCH (08:49)
[2022-03-02] MEDS: GABAPENTIN 300 MG CAP PO SCH ×2 (08:49→14:00)
[2022-03-02] MEDS: DULoxetine HCL 60 MG CAP PO SCH (08:49)
[2022-03-02] MEDS: CHOLECALCIFEROL 1,000 UNITS 25 MCG TAB PO SCH (08:49)
[2022-03-02] MEDS: FEBUXOSTAT PO SCH (08:50)
[2022-03-02] MEDS ORDERED: MULTIVITAMIN TAB PO SCH (09:00)
[2022-03-02] MEDS: PROPRANOLOL HCL 10 MG TAB PO SCH (09:40)
--- NOTE | 2022-03-02 10:43 | Infectious Disease Consult ---
Date of Consultation March 02, 2022 Assessment & Plan (1) Bacteremia due to Escherichia coli: Plan #ESBL E. coli bacteremia -in setting of prostate bx 02/24, day prior to admission - translocation of gut cynthia and precipitation of acute bacterial prostatitis -evidence suggestive of prostatitis on CT a/p -pt reported burning with urination but no difficulty emptying bladder -no urological intervention needed at this time per urology -repeat Bcxs 02/27 no growth to date -on ertapenem since 03/01 -clinical improvement even prior to ertapenem -cr improved from admission #h/o AV IE- E. faecalis in Bcxs at time- completed per notes amp/CTX on 02/06/22 #h/o retroperitoneal hematomas- improved on CT #ESRD, s/p LRKT 2018 Rec: Would f/u Bcxs to document clearance but as no growth to date, ok to place midline. Would continue ertapenem 1 g IV q24 x 4 weeks given setting of acute bacterial prostatitis. At time of urological followup, if prostatitis signs/sxs resolved, ertapenem can be discontinued after 2 weeks. Pt should have weekly CBC/CMP while on ertapenem. Please contact ID telepresenter or page me if any questions. Christel Randolph M.D. [facility] IDConnect Pager [phone] Consultation Information This patient recommendation is based on a telemedicine consult request which was completed asynchronously through chart review and information provided by the primary physician. The patient was not seen or examined today. The evaluation is consultative in nature and all patient care and treatment decisions can either be accepted or rejected by the patient's primary hospital-based treating physician using their own independent medical judgment for their patient. Chlorination Operator contact information: Please call ID Connect Call Center . (Phone Number For Physician Use Only) Time Spent Reviewing Chart: 31+ minutes History of Present Illness Attending Physician: Davion Dominguez MD History of Present Illness ID consult requested for ESBL E. coli in immunosuppressed patient, in this 61 yr old man, past medical history of sarcoidosis, GERD, depression, BPH, DVT/PE, pulmonary nodules, FSGS, ESRD, s/p avf, s/p living related renal transplant in 2019,on CellCept, cyclosporine, and prednisone 5 mg daily at home, CKD, aorti c valve endocarditis, retroperitoneal hematomas, who presented to the ED on 02/25/2022 reporting that several hours before he had started having diffuse abdominal pain and chills. He reported feeling fatigued. He denied any difficulty with urination, diarrhea, cough, or shortness of breath. Patient had underwent transrectal ultrasound and prostate biopsy on 02/24 for elevated PSA. Per procedure note, he took ciprofloxacin the night prior and that morning. In the ED, temperature was 37.5, heart rate 103, respiratory rate 18, blood pressure 99/66, pulse ox 96% on room air. Admission labs significant for WBC 14.52, 96.5% neutrophils, creatinine 3.24, procalcitonin 4.3, hemoglobin 11.2 UA with greater than 30 WBCs, greater than 30 RBCs, 510 epithelial, negative bacteria. 02/25 portable chest x-ray with cardiomegaly and mild pulmonary edema. Numerous nodular densities are unchanged from prior exam. Comparison is made to chest radiograph 01/17/2022. 02/25 CT abdomen pelvis without contrast with interval improvement in the bilateral [place] renal/subcapsular hematomas and surrounding bilateral perinephric/retroperitoneal hemorrhage. This is most pronounced on the right. Interval development of fat stranding surrounding the enlarged prostate gland and seminal vesicles that may represent a prostatitis. Multiple calcified and noncalcified subcentimeter pulmonary nodules and calcified hilar lymphadenopathy remains unchanged. Findings favor prior granulomatous disease or sarcoidosis. Blood pressure improved with administration of saline. He was also started on IV hydrocortisone. He was given IV cefepime in the ED along with IV daptomycin and metronidazole. Patient was stable for de-escalation to ceftriaxone on 02/26 when E. coli identified in blood cultures. Patient was on ceftriaxone from 02/26-03/01. Patient was started on ertapenem 1 g IV q24 on 03/01. 02/25 blood cultures with E. coli susceptible to ertapenem, cefepime and Zosyn. 02/26 urine culture with 3 types of organisms. No further identification. 02/27 blood cultures are no growth to date. Patient was seen by urology on 02/26 who noted patient reported some urinary urgency but was emptying bladder and preferred not to have a catheter. No acute urological intervention was considered necessary. Pathology of biopsies reportedly benign. Pt with h/o aortic valve endocarditis, antibiotics completed 02/06/2022 per notes. Prior cultures reviewed. On 12/25/21, patient had blood cultures positive for Enterococcus faecalis. JOSE on 12/31/2021 had shown trace aortic regurgitation and a discrete lesion on the noncoronary cusp suggestive of endocarditis. Bcxs cleared quickly. Per infectious disease note on 12/30/2021, pt had been admitted with low-grade fever, rigors, and sweats. Patient reportedly has history of rash as a child to penicillin but tolerated ampicillin. Patient was discharged 01/03 on ampicillin 2g IV q6 and ceftriaxone 2 g q12 until 02/06/2022. Pt has been afebrile. BP elevated. WBC has normalized. Creatinine has improved to 2.66. TTE 02/27 with normal systolic function and sclerotic aortic valve without significant stenosis. No significant change from prior study on 12/27/2021. Allergies Allergy/AdvReac Type Severity Reaction Status Date / Time allopurinol Allergy Unknown Rash Verified 02/26/22 01:10 hydromorphone [From Dilaudid] AdvReac Severe confusion Verified 02/26/22 01:10 Home Medications Medication Instructions Recorded Confirmed Type cholecalciferol (vitamin D3) 25 1,000 units PO QAM 04/24/19 02/26/22 History mcg (1,000 unit) capsule docusate sodium 100 mg capsule 100 mg PO BID PRN Constipation 04/24/19 02/26/22 History (Colace) multivitamin (Daily Multi-Vitamin 1 tab PO QAM 04/24/19 02/26/22 History tablet) tamsulosin 0.4 mg capsule (Flomax) 0.4 mg PO HS 04/24/19 02/26/22 History prednisone 5 mg tablet 5 mg PO QAM 05/29/19 02/26/22 History mycophenolate mofetil 250 mg 1,000 mg PO BID 02/20/20 02/26/22 History capsule (CellCept) febuxostat 80 mg tablet (Uloric) 80 mg PO QAM 03/06/20 02/26/22 History omeprazole 40 mg capsule,delayed 40 mg PO QAM #90 caps 04/29/21 02/26/22 Rx release magnesium oxide 800 mg PO BID 06/16/21 02/26/22 History ferrous sulfate 325 mg (65 mg 325 mg PO BID 08/05/21 02/26/22 History iron) tablet (iron) gabapentin 300 mg capsule 600 mg PO .AM & AFTERNOON 08/22/21 02/26/22 History (Neurontin) acetaminophen 500 mg tablet 1,000 mg PO QID PRN Pain 08/24/21 02/26/22 History (Tylenol Extra Strength) duloxetine 60 mg capsule,delayed 60 mg PO QAM #90 caps 11/13/21 02/26/22 Rx release gabapentin 300 mg capsule 900 mg PO HS 11/17/21 02/26/22 History losartan 50 mg tablet 50 mg PO DAILY #90 tabs 12/15/21 02/26/22 Rx furosemide 40 mg tablet (Lasix) 60 mg PO QAM PRN Edema 12/25/21 02/26/22 History propranolol 10 mg tablet 10 mg PO BID #60 tabs 02/13/22 02/26/22 Rx cyclosporine modified 100 mg 100 mg PO BID 02/26/22 02/26/22 History capsule Patient History Medical History Abdominal pain Acute on chronic renal failure Anemia AV fistula LEFT WRIST> NO DIALYSIS CURRENTLY> FISTULA STILL WORKS PER PT Diarrhea Diarrhea DVT (deep venous thrombosis) Right- 04/2019 following transplant > Coumadin S/P LEFT LEG SURGERY (EXCISION OF MELANOMA LEFT LEG) 10 YEARS AGO. Encounter for pre-operative examination Enterococcal bacteremia Family history of blood clots Focal glomerular sclerosis Gout History of basal cell carcinoma History of malignant melanoma of skin Hypertension Influenza A Nephrolithiasis Pneumonia due to COVID-19 virus Rectus sheath hematoma Renal transplant recipient Retroperitoneal hematoma Sarcoidosis Umbilical hernia Venous insufficiency Venous stasis dermatitis Surgical History H/O colonoscopy History of cardiac cath 01/2018 > [facility] > NO STENTS History of melanoma excision left calf History of tonsillectomy History of tooth extraction Kidney transplanted APR 04, 2019 > [facility] [place] > right side Family History Mother Stroke Heart disease Grandmother Cancer Lung disease Denies family history of Ovarian cancer Prostate cancer Colorectal cancer Social History Smoking Status: Never smoker Second Hand Exposure: No; Hx Alcohol Use: No Hx Substance Use: No Preferred Language: Bangladeshi Communication Ability: Effective Websphere Commerce Consultant Required: No Beliefs That Will Affect Care: None marital status: Current Living Situation: Spouse Current Living Situation Comment: living with . current occupational status: employed current occupation: [employer] How many Children do You have: 1 Feels Safe at Home: Yes caffeine: Yes Dental Care, Regularly: Yes Seatbelt Use: always Sunscreen Use: Yes Assistive Devices: CPAP [facility] ([facility]) Vital Signs (Past 12 Hours) Vital Signs Temp Pulse Pulse Resp BP Pulse Ox O2 Del Method 03/02/22 09:56 Room Air 03/02/22 07:59 36.4 C L 56 L 18 152/86 H 99 Room Air 03/02/22 03:47 58 L 15 98 03/02/22 03:00 36.6 C 59 L 20 120/75 98 Room Air 03/01/22 23:00 36.5 C 51 L 20 113/62 96 Room Air FiO2 03/02/22 09:56 03/02/22 07:59 03/02/22 03:47 21 03/02/22 03:00 03/01/22 23:00 Laboratory Results 03/01/22 03/01/22 Range/Units 12:57 12:57 WBC 10.24 (4.8-10.8) K/ul RBC 3.34 L (4.63-6.08) M/uL Hgb 10.1 L (14.0-18.0) g/dl Hct 31.4 L (40.1-51.0) % MCV 94.0 (80.0-100.0) fL MCH 30.2 (25.0-34.0) pg MCHC 32.2 (32.0-36.0) g/dL RDW Std Deviation 54.4 H (36.4-46.3) fL RDW Coeff of Theresa 15.7 H (11.5-14.5) % Plt Count 165 (130-400) K/uL MPV 11.0 (9.4-12.4) fL Immature Gran % (Auto) 0.7 % Neut % (Auto) 87.8 % Lymph % (Auto) 2.6 % [place] % (Auto) 6.2 % Eos % (Auto) 2.4 % Baso % (Auto) 0.3 % Neut # (Auto) 8.99 H (1.4-6.5) K/uL Lymph # (Auto) 0.27 L (1.2-3.4) K/uL [place] # (Auto) 0.63 (0.24-0.82) K/uL Eos # (Auto) 0.25 (0-0.50) K/uL Baso # (Auto) 0.03 (0-0.2) K/uL Immature Gran # (Auto) 0.07 H (0.00-0.02) K/uL Sodium 138 (136-145) mmol/L Potassium 4.0 (3.5-5.1) mmol/L Chloride 107 (98-107) mmol/L Carbon Dioxide 21 (21-32) mmol/L Anion Gap 10 (3-11) BUN 72 H (6-23) mg/dl Creatinine 2.66 H (0.6-1.4) mg/dl Est Cr Clr Drug Dosing 39.5 ml/min Est GFR ( Amer) 28.9 ml/min Est GFR (Non-Af Amer) 25.0 ml/min BUN/Creatinine Ratio 27.1 H (10-20) Glucose 101 H (70-99(Fasting)) mg/dl Calcium 9.3 (8.5-10.1) mg/dl Microbiology 02/27/22 16:36 Blood Aerobic Blood Culture - Preliminary No growth in Aerobic bottle after 48 hours. 02/27/22 16:36 Blood Anaerobic Blood Culture - Preliminary No growth in Anaerobic bottle after 48 hours. 02/27/22 15:15 Blood Aerobic Blood Culture - Preliminary No growth in Aerobic bottle after 48 hours. 02/27/22 15:15 Blood Anaerobic Blood Culture - Preliminary No growth in Anaerobic bottle after 48 hours. 02/25/22 23:07 Blood Aerobic Blood Culture - Preliminary Escherichia coli 02/25/22 23:07 Blood Anaerobic Blood Culture - Preliminary Escherichia coli 02/25/22 23:00 Blood Aerobic Blood Culture - Preliminary Escherichia coli 02/25/22 23:00 Blood Anaerobic Blood Culture - Preliminary Escherichia coli 02/26/22 00:57 Urine,Clean Catch Urine Culture - Final Three types of organisms present, all moderate counts. Repeat collection recommended. No further identifications or sensitivities to follow. :
[2022-03-02] MEDS: ERTAPENEM SODIUM 1,000 MG in SYRINGE 0 ML IV SCH (14:11)
--- NOTE | 2022-03-02 17:43 | Discharge Summary ---
Date of Service March 02, 2022 Admission HPI Per Admitting Provider The patient is a 61-year-old male with past medical history including aortic valve endocarditis of a complete antibiotics on 02/06/2022, anemia, renal transplant recipient, CKD stage IV, hypertension, obesity, sarcoidosis, peripheral neuropathy, FARNAZ, multiple pulmonary nodules, depression, GERD, BPH, dyslipidemia, gout, and metabolic syndrome. He reportedly did return back to normal health after completing antibiotics on 02/06/2022. He underwent a prostate biopsy by urology yesterday, and reportedly was doing well until late in the afternoon today. In the emergency department, the patient is able to answer questions, but is somewhat lethargic and septic looking. Blood pressure in ED was as low 63/40 and up to the upper 90s over 60s after receiving 3 L of normal saline Principal Diagnosis Sepsis due to multi-resistant urinary tract infection (suspected prostatitis) Discharge Exam Constitutional WD/WN, vitals as above no acute distress ENMT external ear and nose normal, oropharynx normal Respiratory normal respiratory effort, lungs clear to auscultation Cardiovascular Rate/Rhythm: regular rate and regular rhythm Heart Sounds: no murmur Extremities: normal capillary refill and + pedal edema (2+ pitting pre-tibial (pt reports at baseline)); no calf tenderness Gastrointestinal (Abdomen) Inspection/Auscultation: abdomen normal to inspection and normal bowel sounds; abdomen not distended Percussion/Palpation: abdomen soft; abdomen nontender, no guarding and abdomen not rigid Musculoskeletal no cyanosis or clubbing, extremities motor strength 5/5 Skin no rashes, warm and dry (chronic venous stasis changes of b/l lower extremities) Neurologic moves all extremities and awake; not confused Psychiatric A+Ox3, euthymic affect Discharge Data Allergies Allergy/AdvReac Type Severity Reaction Status Date / Time allopurinol Allergy Unknown Rash Verified 03/13/22 10:08 hydromorphone [From Dilaudid] AdvReac Severe confusion Verified 03/13/22 10:08 Consultations 02/26/22 00:38 ED Decision to Admit Stat 02/26/22 03:40 Consult Fitness Management Director Routine 02/26/22 12:09 Consult Urology Routine 03/01/22 15:32 Consult Infectious Diseases Routine Ordered Studies 02/25/22 23:01 CT abd pelvis wo con Urgent IMPRESSION: 1. Interval improvement in the bilateral [place] renal/subcapsular hematomas and surrounding bilateral perinephric/retroperitoneal hemorrhage. This is most pronounced on the right. 2. No new sites of hemorrhage identified within the abdomen or pelvis. 3. Interval development of fat stranding surrounding the enlarged prostate gland and seminal vesicles. This may represent a prostatitis. 4. Right renal transplant again noted. No hydronephrosis. 5. Cholelithiasis. 6. Multiple calcified and noncalcified subcentimeter pulmonary nodules and calcified hilar lymphadenopathy remains unchanged. Findings favor prior granulomatous disease or sarcoidosis Hospital Course (1) Septic shock due to urinary tract infection: Kirby Prado is a 61 year old male admitted to [facility] from February 26 - March 02, 2022 due to fever and chills. He was diagnosed with sepsis requiring care in the intensive care unit however hypotension resolved with stress dose steroids and fluid resuscitation alone. He was started broad spectrum antibiotics (daptomycin, cefepime, metronidazole). PCR on blood cultures detected E. coli and antibiotics were switched to ceftriaxone. Subsequent blood cultures grew extended spectrum beta-lactamase (ESBL) E. coli however therefore antibiotics were switched to ertapenem. Infectious disease recommended 4 weeks of antibiotics (a further 26 days). US guided line was placed to administer this and he was set up to receive this at home. He should follow up with urology and nephrology on discharge. Cyclosporine levels were low however on discussion with nephrology on discharge no changes were recommended to his dose at this time. His anti-hypertensives were successfully restarted prior to discharge and have been continued. Apart from the antibiotic no changes to his medications were made. (2) Retroperitoneal hematoma: (3) Aortic valve endocarditis: (4) Renal transplant recipient: (5) CKD (chronic kidney disease) stage 4, GFR 15-29 ml/min: (6) Hypertension: (7) Sarcoidosis: (8) GERD (gastroesophageal reflux disease): (9) Depression: (10) BPH (benign prostatic hyperplasia): Total Time Total Time Spent Total Time Spent (In Minutes): 45 Discharge Plan Discharge Items Patient Disposition: Home - Home Health Services Reason For Visit: SEPTIC SHOCK DUE TO UTI Discharge Diagnosis: Sepsis due to multi-resistant urinary tract infection (suspected prostatitis) Condition on Discharge: Good Activity: As commented below Non-emergency contact: Primary Care Provider and Urologist Call non-emergency contact if: you have any medication questions and your symptoms worsen Follow-up/Referrals: Vinicius Ng MD [Primary Care Provider] - Srikanth Aguilera DO [Physician] - 03/18/22 1:00 pm (2 week hospital follow up) Karthik Neff MD [Physician] - 03/09/22 1:30 pm Diet: Heart Healthy Addtl Attending Provider Instructions: You were admitted to [facility] from February 26 - March 02, 2022 due to fever and chills. You were diagnosed with sepsis requiring care in the intensive care unit. You were treated with intravenous fluids and broad spectrum antibiotics. You blood cultures subsequently grew extended spectrum beta-lactamase (ESBL) E. coli a multi-resistant organism. Therefore your antibiotics were switched to ertapenem. Infectious disease recommended 4 weeks of antibiotics (a further 26 days). US guided line was placed to administer this and you were set up to receive this at home. Please follow up with urology and nephrology on discharge. Please continue on your usual cyclosporine dose on discharge but follow up with your laboratory sample carrier for repeat levels to see whether this needs to be increased as the levels were low during your hospitalization. This was discussed with nephrology on discharge. No other changes to your medications were made. Pending Studies at Discharge: No Stand-Alone Forms: My [facility], Smoking Cessation Medications and DC Order Prescriptions: New ertapenem 1 gram recon soln 1 g IV DAILY 26 Days Qty: 26 0RF Continued omeprazole 40 mg capsule,delayed release(DR/EC) 40 mg PO QAM Qty: 90 3RF losartan 50 mg tablet 50 mg PO DAILY Qty: 90 3RF mycophenolate mofetil [CellCept] 250 mg capsule 1,000 mg PO BID propranolol 10 mg tablet 10 mg PO BID Qty: 60 5RF tamsulosin [Flomax] 0.4 mg capsule 0.4 mg PO HS docusate sodium [Colace] 100 mg capsule 100 mg PO BID PRN (Reason: Constipation) multivitamin [Daily Multi-Vitamin] tablet 1 tab PO QAM cholecalciferol (vitamin D3) 1,000 unit capsule 1,000 units PO QAM prednisone 5 mg tablet 5 mg PO QAM gabapentin [Neurontin] 300 mg capsule 600 mg PO .AM & AFTERNOON Rx Instructions: TAKE TWO CAPSULES EVERY MORNING AND AFTERNOON. duloxetine 60 mg capsule,delayed release(DR/EC) 60 mg PO QAM Qty: 90 3RF magnesium oxide 400 mg magnesium capsule 800 mg PO BID Hold Instructions: Home Medication placed on hold at Doctor's office ferrous sulfate [iron] 325 mg (65 mg iron) Tablet 325 mg PO BID cyclosporine modified 100 mg Capsule 100 mg PO BID acetaminophen [Tylenol Extra Strength] 500 mg Tablet 1,000 mg PO QID PRN (Reason: Pain) gabapentin 300 mg Capsule 900 mg PO HS Rx Instructions: TAKE THREE CAPSULES AT BEDTIME furosemide [Lasix] 40 mg tablet 60 mg PO QAM PRN (Reason: Edema) No Action febuxostat [Uloric] 80 mg tablet 80 mg PO QAM Qty: 90 0RF Discharge Orders: Discharge Order (Routine); Ordered 03/02/22 Ordered By: Davion Dominguez Admission Data Admit Date/Time: 02/26/22 01:38 Attending Provider: Davion Dominguez Admit Provider: Yovani Pizarro Primary Care Provider: Vinicius Ng Other Providers: Keyshawn Estrada ; Karthik Neff ; Christel Randolph ; [facility]placed By [facility] Other Interventions: Discharge Summary Assessment (RN) Last Done: 03/02/22 17:51 Coding Level of Care Code D/C DAY MANAGEMENT >30 MINS Diagnoses Septic shock due to urinary tract infection A41.9; R65.21; N39.0 Retroperitoneal hematoma K66.1 Aortic valve endocarditis I35.8 Renal transplant recipient Z94.0 CKD (chronic kidney disease) stage 4, GFR 15-29 ml/min N18.4 Hypertension I10 Hypertension type: essential hypertension Sarcoidosis D86.9 GERD (gastroesophageal reflux disease) K21.9 Esophagitis presence: without esophagitis Depression F32.89 Depression Type: other depression BPH (benign prostatic hyperplasia) N40.0 Home Health Attestation I certify that this patient is under my care and that I, or a physicians assistant finance manager working with me, had a face to-face encounter that meets the [id number] encounter requirements with this patient. The encounter with the patient was in whole, or in part, for the following medical condition, which is the primary reason for home health care (list medical condition): IV antibiotics I certify that, based on my findings, the following services are medically necessary home health services: My clinical findings support the need for the above services because: Skilled Nsg Assessment Weekly Labs Further, I certify that my clinical findings support that this patient is homebound (i.e. absences from home require considerable and taxing effort and are for medical reasons or latter day services or infrequently or of short duration when for other reasons) because: Certification for Home Health Services: Based on the above findings, I certify that this patient is confined to the home and needs intermittent residential care, physical therapy and/or speech therapy or continues to need occupational therapy. The patient is under my care, and I have initiated the establishment of the plan of care. This patient will be followed by a physician who will periodically review the plan of care.
--- NOTE | 2022-03-17 10:33 | Coding Query ---
CODING QUERY To promote full compliance with coding requirements relating to patient care, provider participation is requested in all cases of evening or night nurse supervisor uncertainty. Please assist us with the question(s) below: Coding Question(s): The Discharge Summary documents, "Sepsis due to multi- resistant urinary tract infection (suspected prostatitis)", and the Infectious Disease Consultation documents, "ESBL E. coli bacteremia -in setting of prostate bx 02/24, day prior to admission - translocation of gut cynthia and precipitation of acute bacterial prostatitis", and documentation, as on the 03/01 Progress Note documents, "Septic shock 2/2 UTI History of transrectal ultrasound and standard 12 core biopsy 02/24, likely with neurologic bacteremic seeding. Patient did have perioperative Cipro at that time". Please specify below, in your clinical opinion. ( X ) UTI/Prostatitis is likely a Postprocedural Complication of Infection ( ) UTI/Prostatitis is Not a Postprocedural Complication ( ) Other: Please Specify Physician's Response(s): Thank you Grisel Foreman Principal Diagnosis: "that condition established after study, to be chiefly responsible for occasioning the admission of the patient to the hospital for care." Co-Existing Principal Diagnosis: "when two or more diagnoses equally meet the criteria for principal diagnosis as determined by the circumstances of admission, diagnostic work up, and/or therapy provided, and the Alphabetic Index, Tabular List, or another coding guideline does not provide sequencing direction, any one of the diagnoses may be sequenced first." "When the physician has documented what appears to be a current diagnosis in the body of the record, but has not included the diagnosis in the final diagnostic statement, the physician should be asked whether the diagnosis should be added." (Source Coding Clinic 2 QTR90. p3-4) HOLLIS
== END 2022-03-02 18:59 | disposition home health service (06) | DRG 862 ==
LOC: ED 22:36 → 1E 02-26 01:38 → SUATTDRO 02-26 01:38 → 1E 02-26 01:55 → 2S 02-27 15:56

== ENCOUNTER 2022-08-23 06:38 | Inpatient (IN) ==
[2022-08-23] MEDS ORDERED: SODIUM CHLORIDE 0.9% 1000ML 2,000 ML IV ONE (06:59)
[2022-08-23] MEDS ORDERED: ACETAMINOPHEN 1,000 MG/100 ML VIAL IV STA (06:59)
[2022-08-23] MEDS ORDERED: CEFEPIME 2,000 MG/20 ML VIAL IV STA (07:01)
--- NOTE | 2022-08-23 07:04 | Emergency Department Note ---
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 coli bacteremia about 6 months ago. He arrives clearly septic febrile shaking and quite ill-appearing. Immediately blood cultures 2 lines were obtained. He was given 2 L normal s cole initially followed by a thrid L as he had tolerated that first 2 L well. Patient was empirically given IV cefepime followed on further antibiotics once discussion with ID pharmacist. His creatinine of 2.9 is actually similar to previous. His initial white blood cell count is 9 but procalcitonin is elevated. CRP is also elevated. Urinalysis is essentially unremarkable. Quite certain that this patient is septic no clear source is not identified. He does not have abdominal tenderness to palpation is breathing comfortably and has no evidence of meningitis. Given his history clearly requires hospitalization and thus hospitalist was consulted for further management. Multiple repeat evaluations patient throughout his stay. Prior Medical Record and Triage/Nursing Notes reviewed by Me External chart review including previous discharge summaries by me Differentials:Sepsis, pyelonephritis, UTI, pneumonia, metabolic, electrolyte abnormalities, cardiac sources, meningitis, pharyngeal infection, as well as other pathologies. Vital Signs: reviewed and remarkable for fever, tachycardia Interventions: Normal saline bolus 3 L IV, cefepime IV, Tylenol IV Labs:Reviewed and remarkable for elevated procalcitonin, elevated creatinine at his baseline normal white blood cell count amongst multiple other labs reviewed Imagin view chest x-ray as per my interpretation. Mild congestive findings no overt infiltrate or pulm edema appreciated EKG:Per My Interpretation: Indication Sepsis: NSR 120 bpm, qtc 455. Incomplete RBBB. No Ectopy. No Ischemia. Compared to EKG 02/25/22, no significant changes. Cardiac/Tele Monitoring: Cardiac Monitoring: An Order was placed for continuous cardiac monitoring. The monitor shows a rate of 110 with a sinus tach rhythm. Consults:Dr Dominguze Hospitalist Plan: Disposition:Hospitalization. Condition: Fair History of Present Illness:61-year-old male arrives for evaluation of illness. Patient was his normal self throughout the last few days. He has a history of renal transplant about 3 years ago. He is currently on prednisone, CellCept, Prograf and has been taking his medications. This morning he awoke several hours ago with urinary burning and frequency. This is rapidly worsened to include shakes, chills, confusion, exhaustion, weakness. Patient comes in with . No medications prior to arrival. And exertion makes worse rest makes better. Patient notes urinary burning frequency. He notes some mild lower abdominal discomfort. He has diffuse neuropathy which is also causing him pain. Denies any falls, trauma, injuries. Has some mild increase in the swelling in his legs but that is not uncommon for him. No shortness of breath, chest pain, runny nose. Past History:See Below Home Medications:See Below Allergies:See Below Vitals:Blood Pressure: 179/87, Pulse 119, RR 22, T 38.7C, O2 97% on RA Physical Exam: GENERAL: Patient is severely ill appearing and in severe distress. Mildly encephalopathic though answering questions. EYES: No scleral icterus, unremarkable pupils. ENT: Mucous membranes dry, no nasal congestion. RESPIRATORY: Moderate tachypnea without significant dyspnea. Lung sounds clear without wheezing appreciated. CARDIOVASCULAR: Tachycardic.No murmurs, rubs, gallops appreciated. GASTROINTESTINAL: Abdomen soft, non-tender, no peritonitis.Bowel sounds positive.No masses appreciated. EXTREMITIES: Normal motion all extremities, no cyanosis, moderate edema. NEUROLOGIC: Mildly encephalopathic/somnolent though awakens to answer most questions before falling back to sleep. Protecting airway SKIN: No rash, no jaundice, no diaphoresis. GCS: 14 ED Course: Times/Reassessments: Patient is much improved with fluids and Tylenol. He is no longer mildly encephalopathic though is somewhat tremulous though notes this is relatively chronic Critical Care: I have personally spent 40 minutes of critical care time in the direct management of this patient. Severe Sepsis unknown etiology with encephalopathy, fever, tachy in immunocompromised patient requiring aggressive resuscitation and management. This was a life/limb threatening event. This 40 minutes is in excess of all separately billable procedures. Jay Cochran MD Past Med/Surg History Medical History Anemia AV fistula LEFT WRIST> NO DIALYSIS CURRENTLY> F[facility]ULA STILL WORKS PER PT Discharge planning issues DVT (deep venous thrombosis) Right- 04/2019 following transplant > Coumadin S/P LEFT LEG SURGERY (EXCISION OF MELANOMA LEFT LEG) 10 YEARS AGO. 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 Chronic renal insufficiency s/p renal transplant - follows with nephro Per 07/17/20 surgeon note: "His transplant surgeons have cleared him to have this (hernia) repaired." Gout History of basal cell carcinoma Hyperphosphatemia Hypertension Knee contusion Nephrolithiasis Rectus sheath hematoma Renal transplant recipient Retroperitoneal hematoma Sarcoidosis Small bowel obstruction Supratherapeutic INR Symptomatic anemia Umbilical hernia UTI (urinary tract infection) Venous insufficiency Venous stasis dermatitis Surgical History H/O colonoscopy History of cardiac cath 01/2018 > [facility] > NO STENTS History of melanoma excision left calf History of tonsillectomy History of tooth extraction Kidney transplanted APR 04, 2019 > [facility] [place] > right side Family History Mother Stroke Heart disease Grandmother Cancer Lung disease Denies family history of Ovarian cancer Prostate cancer Colorectal cancer Social History Smoking Status: Never smoker Second Hand Exposure: No; Do You Dip or Chew Tobacco: No; Tobacco Cessation Education Requested by Patient: No Hx Alcohol Use: No Hx Substance Use: No Preferred Language: Urugu[place] Communication Ability: Effective Certified Master Safecracker Required: No Beliefs That Will Affect Care: None marital status: Current Living Situation: Spouse Current Living Situation Comment: living with . current occupational status: employed current occupation: [employer] How many Children do You have: 1 Other Information That Helps Us Care for You: No Feels Safe at Home: Yes Safety Concerns: Feels Safe At This Time caffeine: Yes Dental Care, Regularly: Yes Seatbelt Use: always Sunscreen Use: Yes Assistive Devices: CPAP Allergies Allergies Allergy/AdvReac Type Severity Reaction Status Date / Time allopurinol Allergy Unknown Rash Verified 08/23/22 09:43 hydromorphone [From Dilaudid] AdvReac Severe confusion Verified 08/23/22 09:43 Home Meds Home Medications Medication Instructions Recorded Confirmed cholecalciferol (vitamin D3) 25 1,000 units PO QAM 04/24/19 08/23/22 mcg (1,000 unit) capsule docusate sodium 100 mg capsule 100 mg PO BID PRN Constipation 04/24/19 08/23/22 (Colace) multivitamin (Daily Multi-Vitamin 1 tab PO QAM 04/24/19 08/23/22 tablet) tamsulosin 0.4 mg capsule (Flomax) 0.4 mg PO HS 04/24/19 08/23/22 prednisone 5 mg tablet 5 mg PO QAM 05/29/19 08/23/22 mycophenolate mofetil 250 mg 1,000 mg PO BID 02/20/20 08/23/22 capsule (CellCept) magnesium oxide 800 mg PO .HOLD 06/16/21 08/23/22 ferrous sulfate 325 mg (65 mg 325 mg PO BID 08/05/21 08/23/22 iron) tablet (iron) gabapentin 300 mg capsule 600 mg PO BID 08/22/21 08/23/22 (Neurontin) acetaminophen 500 mg tablet 1,000 mg PO QID PRN Pain 08/24/21 08/23/22 (Tylenol Extra Strength) gabapentin 300 mg capsule 900 mg PO HS 11/17/21 08/23/22 furosemide 40 mg tablet (Lasix) 60 mg PO QAM PRN Edema 12/25/21 08/23/22 cyclosporine modified 100 mg 100 mg PO BID 02/26/22 08/23/22 capsule propranolol 10 mg tablet 10 mg PO .HOLD 03/24/22 08/23/22 Previous Rx's Medication Instructions Recorded duloxetine 60 mg capsule,delayed 60 mg PO QAM #90 caps 11/13/21 release losartan 50 mg tablet 50 mg PO DAILY #90 tabs 12/15/21 omeprazole 40 mg capsule,delayed 40 mg PO QAM #90 caps 04/27/22 release febuxostat 80 mg tablet (Uloric) 80 mg PO QAM #90 tabs 06/03/22 sildenafil (pulm.hypertension) 20 20 mg PO TID #10 tabs 06/10/22 mg tablet Results & Data (ED) Vital Signs Vital Signs - 24 hr 08/23/22 06:43 08/23/22 08:00 08/23/22 07:17 Temperature 38.7 C H Temperature Source Temporal Artery Scan Pulse Rate 119 H 108 H 123 H Pulse Rate from SpO2 Sensor Respiratory Rate 22 22 Respiratory Effort / Characteristics Non-Labored Spontaneous Respiratory Depth Normal Respiratory Pattern Regular Blood Pressure 179/87 H Blood Pressure Mean 117 Blood Pressure Position Sitting Pulse Oximetry 97 Oxygen Delivery Method Room Air Room Air Sepsis Recent Fever Within 48 Hours No Sepsis New/Unexplained Change in Mental Status N/A Sepsis Action Taken by Nursing Physician Notified 08/23/22 07:24 08/23/22 07:30 08/23/22 07:40 Temperature Temperature Source Pulse Rate Pulse Rate from SpO2 Sensor 119 H 119 H Respiratory Rate 19 26 H Respiratory Effort / Characteristics Respiratory Depth Respiratory Pattern Blood Pressure 120/67 Blood Pressure Mean 84 Blood Pressure Position Pulse Oximetry 94 95 Oxygen Delivery Method Room Air Room Air Room Air Sepsis Recent Fever Within 48 Hours Sepsis New/Unexplained Change in Mental Status Sepsis Action Taken by Nursing 08/23/22 07:40 08/23/22 07:50 08/23/22 08:00 Temperature Temperature Source Pulse Rate 108 H Pulse Rate from SpO2 Sensor 112 H 109 H Respiratory Rate 25 H 23 Respiratory Effort / Characteristics Respiratory Depth Respiratory Pattern Blood Pressure 103/58 L Blood Pressure Mean 73 Blood Pressure Position Pulse Oximetry 94 Oxygen Delivery Method Room Air Room Air Room Air Sepsis Recent Fever Within 48 Hours Sepsis New/Unexplained Change in Mental Status Sepsis Action Taken by Nursing 08/23/22 08:00 08/23/22 08:10 08/23/22 08:20 Temperature Temperature Source Pulse Rate 107 H 106 H 105 H Pulse Rate from SpO2 Sensor 107 H 106 H 105 H Respiratory Rate 25 H 23 23 Respiratory Effort / Characteristics Respiratory Depth Respiratory Pattern Blood Pressure Blood Pressure Mean Blood Pressure Position Pulse Oximetry 93 95 96 Oxygen Delivery Method Room Air Room Air Room Air Sepsis Recent Fever Within 48 Hours Sepsis New/Unexplained Change in Mental Status Sepsis Action Taken by Nursing 08/23/22 08:30 08/23/22 08:30 08/23/22 08:40 Temperature Temperature Source Pulse Rate 101 H 101 H Pulse Rate from SpO2 Sensor 101 H 100 H Respiratory Rate 21 19 Respiratory Effort / Characteristics Respiratory Depth Respiratory Pattern Blood Pressure 112/68 Blood Pressure Mean 82 Blood Pressure Position Pulse Oximetry 95 95 Oxygen Delivery Method Room Air Room Air Room Air Sepsis Recent Fever Within 48 Hours Sepsis New/Unexplained Change in Mental Status Sepsis Action Taken by Nursing 08/23/22 08:50 08/23/22 09:00 08/23/22 09:00 Temperature Temperature Source Pulse Rate 100 H 100 H Pulse Rate from SpO2 Sensor 101 H 101 H Respiratory Rate 18 20 Respiratory Effort / Characteristics Respiratory Depth Respiratory Pattern Blood Pressure 104/58 L Blood Pressure Mean 73 Blood Pressure Position Pulse Oximetry 96 95 Oxygen Delivery Method Room Air Room Air Room Air Sepsis Recent Fever Within 48 Hours Sepsis New/Unexplained Change in Mental Status Sepsis Action Taken by Nursing 08/23/22 09:10 08/23/22 09:20 08/23/22 09:30 Temperature Temperature Source Pulse Rate 97 H 99 H Pulse Rate from SpO2 Sensor 97 H 98 H Respiratory Rate 21 18 Respiratory Effort / Characteristics Respiratory Depth Respiratory Pattern Blood Pressure 99/54 L Blood Pressure Mean 69 Blood Pressure Position Pulse Oximetry 96 95 Oxygen Delivery Method Room Air Room Air Room Air Sepsis Recent Fever Within 48 Hours Sepsis New/Unexplained Change in Mental Status Sepsis Action Taken by Nursing 08/23/22 09:30 Temperature Temperature Source Pulse Rate 96 H Pulse Rate from SpO2 Sensor 96 H Respiratory Rate 22 Respiratory Effort / Characteristics Respiratory Depth Respiratory Pattern Blood Pressure Blood Pressure Mean Blood Pressure Position Pulse Oximetry 94 Oxygen Delivery Method Room Air Sepsis Recent Fever Within 48 Hours Sepsis New/Unexplained Change in Mental Status Sepsis Action Taken by Nursing Laboratory Data 08/23/22 07:21 08/23/22 07:21 Lab Results 08/23/22 08/23/22 08/23/22 Range/Units 07:21 07:21 07:21 WBC 9.45 (4.8-10.8) K/ul RBC 3.71 L (4.70-6.10) M/uL Hgb 11.6 L (14.0-18.0) g/dl Hct 35.6 L (42.0-52.0) % MCV 96.0 (80.0-100.0) fL MCH 31.3 (25.0-34.0) pg MCHC 32.6 (32.0-36.0) g/dL RDW Std Deviation 45.0 (36.4-46.3) fL RDW Coeff of Theresa 12.9 (11.5-14.5) % Plt Count 173 (130-400) K/uL MPV 10.3 (9.4-12.4) fL Immature Gran % (Auto) 0.4 % Neut % (Auto) 93.5 % Lymph % (Auto) 2.2 % Giles % (Auto) 2.1 % Eos % (Auto) 1.5 % Baso % (Auto) 0.3 % Neut # (Auto) 8.83 H (1.40-6.50) K/uL Lymph # (Auto) 0.21 L (1.2-3.4) K/uL Giles # (Auto) 0.20 (0.11-0.59) K/uL Eos # (Auto) 0.14 (0-0.50) K/uL Baso # (Auto) 0.03 (0-0.2) K/uL Immature Gran # (Auto) 0.04 (0.01-0.20) K/uL Sodium 141 (136-145) mmol/L Potassium 4.3 (3.5-5.1) mmol/L Chloride 107 (98-107) mmol/L Carbon Dioxide 22 (21-32) mmol/L Anion Gap 12 H (3-11) BUN 66 H (6-23) mg/dl Creatinine 2.91 H (0.6-1.4) mg/dl Est Cr Clr Drug Dosing 38.3 ml/min Est GFR ( Amer) 25.9 ml/min Est GFR (Non-Af Amer) 22.4 ml/min BUN/Creatinine Ratio 22.7 H (10-20) Glucose 105 H (70-99(Fasting)) mg/dl Lactate 1.9 (0.4-2.0) mmol/L Calcium 9.6 (8.6-10.3) mg/dl Magnesium 1.5 L (1.7-2.4) mg/dl Total Bilirubin 0.7 (0.2-1.0) mg/dl Direct Bilirubin 0.3 H (0-0.2) mg/dl AST 11 L (13-39) U/L ALT 13 (7-52) U/L Alkaline Phosphatase 106 H (34-104) U/L Troponin I High Sens 16.6 (0-20) pg/ml Total Protein 6.9 (6.0-8.3) gm/dl Albumin 4.3 (3.4-5.0) gm/dl Procalcitonin (0-0.5) ng/ml Urine Color Urine Appearance (Clear) Urine pH (4.5-7.5) Ur Specific [place] (1.000-1.030) Urine Protein (Negative) Urine Glucose (UA) (Negative) Urine Ketones (Negative) Urine Blood (Negative) Urine Nitrite (Negative) Urine Bilirubin (Negative) Urine Urobilinogen (Negative) Ur Leukocyte Esterase (Negative) Urine WBC (Auto) (0-5) /hpf Urine RBC (Auto) (0-4) /hpf U Hyaline Cast (Auto) (0-5) /lpf U Epithel Cells (Auto) (0-5) /lpf Urine Bacteria (Auto) (Negative) SARS-CoV-2 (PCR) (Negative) Influenza Type A (PCR) (Neg) Influenza Type B (PCR) (Neg) RSV (RT-PCR) (Neg) 08/23/22 08/23/22 08/23/22 Range/Units 07:21 07:37 07:46 WBC (4.8-10.8) K/ul RBC (4.70-6.10) M/uL Hgb (14.0-18.0) g/dl Hct (42.0-52.0) % MCV (80.0-100.0) fL MCH (25.0-34.0) pg MCHC (32.0-36.0) g/dL RDW Std Deviation (36.4-46.3) fL RDW Coeff of Theresa (11.5-14.5) % Plt Count (130-400) K/uL MPV (9.4-12.4) fL Immature Gran % (Auto) % Neut % (Auto) % Lymph % (Auto) % Giles % (Auto) % Eos % (Auto) % Baso % (Auto) % Neut # (Auto) (1.40-6.50) K/uL Lymph # (Auto) (1.2-3.4) K/uL Giles # (Auto) (0.11-0.59) K/uL Eos # (Auto) (0-0.50) K/uL Baso # (Auto) (0-0.2) K/uL Immature Gran # (Auto) (0.01-0.20) K/uL Sodium (136-145) mmol/L Potassium (3.5-5.1) mmol/L Chloride (98-107) mmol/L Carbon Dioxide (21-32) mmol/L Anion Gap (3-11) BUN (6-23) mg/dl Creatinine (0.6-1.4) mg/dl Est Cr Clr Drug Dosing ml/min Est GFR ( Amer) ml/min Est GFR (Non-Af Amer) ml/min BUN/Creatinine Ratio (10-20) Glucose (70-99(Fasting)) mg/dl Lactate (0.4-2.0) mmol/L Calcium (8.6-10.3) mg/dl Magnesium (1.7-2.4) mg/dl Total Bilirubin (0.2-1.0) mg/dl Direct Bilirubin (0-0.2) mg/dl AST (13-39) U/L ALT (7-52) U/L Alkaline Phosphatase (34-104) U/L Troponin I High Sens (0-20) pg/ml Total Protein (6.0-8.3) gm/dl Albumin (3.4-5.0) gm/dl Procalcitonin 0.86 H (0-0.5) ng/ml Urine Color Yellow Urine Appearance Cloudy A (Clear) Urine pH 5.0 (4.5-7.5) Ur Specific [place] 1.016 (1.000-1.030) Urine Protein 2+ H (Negative) Urine Glucose (UA) Negative (Negative) Urine Ketones Negative (Negative) Urine Blood 1+ H (Negative) Urine Nitrite Negative (Negative) Urine Bilirubin Negative (Negative) Urine Urobilinogen Negative (Negative) Ur Leukocyte Esterase 2+ H (Negative) Urine WBC (Auto) >30 H (0-5) /hpf Urine RBC (Auto) 5-10 H (0-4) /hpf U Hyaline Cast (Auto) 1-5 (0-5) /lpf U Epithel Cells (Auto) 0-5 (0-5) /lpf Urine Bacteria (Auto) Negative (Negative) SARS-CoV-2 (PCR) NEGATIVE (Negative) Influenza Type A (PCR) Negative (Neg) Influenza Type B (PCR) Negative (Neg) RSV (RT-PCR) Negative (Neg) Administered Medications Duloxetine HCl (Duloxetine Hcl 60 Mg Cap) 60 mg PO QAM [facility] Stop: 09/22/22 11:14 Last Admin: 08/23/22 12:42 Dose: 60 mg Documented By: SOFIE Lactated Ringer's (Lr) 1,000 mls @ 80 mls/hr IV .[id number] [facility] Stop: 08/24/22 12:29 Last Admin: 08/23/22 12:42 Dose: 80 mls/hr Documented By: SOFIE Discontinued Medications Sodium Chloride (Nss 1000ml) 2,000 mls @ 999 mls/hr IV .Q2H1M ONE Stop: 08/23/22 08:59 Last Infusion: 08/23/22 09:06 Dose: 0 mls/hr Documented By: Admin: 08/23/22 07:34 Dose: 999 mls/hr Documented By: SOFIE Acetaminophen (Ofirmev) 1,000 mg in 100 mls @ 400 mls/hr IV NOW STA Stop: 08/23/22 07:13 Last Infusion: 08/23/22 07:54 Dose: 0 mls/hr Documented By: Admin: 08/23/22 07:34 Dose: 400 mls/hr Documented By: SOFIE Cefepime HCl (Maxipime) 2,000 mg in 20 mls @ 5 mls/min IV NOW STA Stop: 08/23/22 07:04 Last Admin: 08/23/22 07:34 Dose: 5 mls/min Documented By: SOFIE Ertapenem 1,000 mg/ Syringe 10 mls @ 2 mls/min IV NOW ONE Stop: 08/23/22 09:19 Last Admin: 08/23/22 10:19 Dose: 2 mls/min Documented By: SOFIE Sodium Chloride (Nss 1000ml) 1,000 mls @ 999 mls/hr IV .Q1H1M ONE Stop: 08/23/22 10:15 Last Infusion: 08/23/22 11:20 Dose: 0 mls/hr Documented By: Admin: 08/23/22 10:19 Dose: 999 mls/hr Documented By: SOFIE Daptomycin 600 mg/ Syringe 12 mls @ 6 mls/min IV NOW ONE; Protocol Stop: 08/23/22 09:31 Last Admin: 08/23/22 10:19 Dose: 6 mls/min Documented By: SOFIE Imaging Data Radiologist's Impression: Chest X-Ray 08/23/22 06:53 XR chest 1V portable CLINICAL HISTORY: Sepsis TECHNIQUE: Single frontal radiograph of the chest was obtained. Comparison: Comparison is made to chest radiograph 02/25/2022 FINDINGS: No lines and tubes are seen. Cardiomegaly is noted. The aortic arch is calcified. Prominence and cephalization of the vasculature is seen. No evidence of pleural effusion or pneumothorax. Nodular densities in the bilateral lungs appear unchanged from prior exam. IMPRESSION: Cardiomegaly and mild pulmonary edema. Nodular densities in the bilateral lungs appear unchanged. ACT 112: Negative or not required by law. Electronically signed by: Mega Pan M.D. 08/23/2022 7:59 AM Discharge Plan Visit Data Chief Complaint: Illness Stated Complaint: FEVER,DIARRHEA,NAUSEA ED Provider: Jay Cochran Discharge Problem: Sepsis, Immunocompromised, Acute dehydration Discharge Instructions Interventions: ED Discharge Assessment Last Done: 08/23/22 10:14
[2022-08-23 07:36] LABS: Hematocrit (blood only) 35.6 % (42.0-52.0); Hemoglobin 11.6 g/dl (14.0-18.0); Mean Corpuscular Hemoglobin 31.3 pg (25.0-34.0); Mean Corpuscular Hgb Conc 32.6 g/dL (32.0-36.0); Mean Platelet Volume 10.3 fL (9.4-12.4); Platelet Count 173 K/uL (130-400); RDW Coefficient of Variation 12.9 % (11.5-14.5); Red Blood Count 3.71 M/uL (4.70-6.10); White Blood Count 9.45 K/ul (4.8-10.8)
[2022-08-23 07:51] LABS: Albumin Level 4.3 gm/dl (3.4-5.0); BUN Creatinine Ratio 22.7 (10-20); Bilirubin Direct 0.3 mg/dl (0-0.2); Bilirubin,Total 0.7 mg/dl (0.2-1.0); Calcium 9.6 mg/dl (8.6-10.3); Creatinine Clr Calc Pharmacy 38.3 ml/min; Est GFR (African American) 25.9 ml/min; Est GFR (Non-African American) 22.4 ml/min; Magnesium 1.5 mg/dl (1.7-2.4); Potassium 4.3 mmol/L (3.5-5.1); Total Protein 6.9 gm/dl (6.0-8.3)
[2022-08-23 07:54] LABS: Basophils # (auto) 0.03 K/uL (0-0.2); Basophils % (auto) 0.3 %; Eosinophils # (auto) 0.14 K/uL (0-0.50); Eosinophils % (auto) 1.5 %; Immature Granulocytes # (auto) 0.04 K/uL (0.01-0.20); Immature Granulocytes % (auto) 0.4 %; Lymphocytes # (auto) 0.21 K/uL (1.2-3.4); Lymphocytes % (auto) 2.2 %; Monocytes % (auto) 2.1 %; Neutrophils # (auto) 8.83 K/uL (1.40-6.50); Neutrophils % (auto) 93.5 %
[2022-08-23 07:57] LABS: Troponin I High Sensitivity 16.6 pg/ml (0-20)
[2022-08-23 08:01] LABS: Appearance Urine Cloudy (Clear); Bacteria Urine Automated Negative (Negative); Bilirubin Urine Negative (Negative); Blood Urine 1+ (Negative); Color Urine Yellow; Epithelial Cell Urine Auto 0-5 /lpf (0-5); Glucose Urine UA Negative (Negative); Ketones Urine Negative (Negative); Leukocyte Esterase Urine 2+ (Negative); Nitrite Urine Negative (Negative); Protein Urine 2+ (Negative); Specific Gravity Urine 1.016 (1.000-1.030); Urobilinogen Urine Negative (Negative); WBC Urine Automated >30 /hpf (0-5)
--- NOTE | 2022-08-23 08:01 | XRay Report ---
XR chest 1V portable CLINICAL HISTORY: Sepsis TECHNIQUE: Single frontal radiograph of the chest was obtained. Comparison: Comparison is made to chest radiograph 02/25/2022 FINDINGS: No lines and tubes are seen. Cardiomegaly is noted. The aortic arch is calcified. Prominence and ceph alization of the vasculature is seen. No evidence of pleural effusion or pneumothorax. Nodular densit ies in the bilateral lungs appear unchanged from prior exam. IMPRESSION: Cardiomegaly and mild pulmonary edema. Nodular densities in the bilateral lungs appear unchanged. ACT 112: Negative or not required by law. Electronically signed by: Mega Pan M.D. 08/23/2022 7:59 AM
[2022-08-23 08:37] LABS: Influenza A virus by PCR Negative (Neg); Influenza B virus by PCR Negative (Neg); RSV by PCR Negative (Neg); SARS CoV2 RNA(COVID-19) Ceph NEGATIVE (Negative)
[2022-08-23] MEDS ORDERED: SODIUM CHLORIDE 0.9% 1000ML 1,000 ML IV ONE (09:15)
[2022-08-23] MEDS ORDERED: ERTAPENEM SODIUM 1,000 MG in SYRINGE 0 ML IV ONE (09:15)
[2022-08-23] MEDS ORDERED: DAPTOmycin 600 MG in SYRINGE 0 ML IV ONE (09:30)
[2022-08-23] MEDS ORDERED: FUROSEMIDE 20 MG TAB PO PRN (11:02)
[2022-08-23] MEDS ORDERED: DOCUSATE SODIUM 100 MG CAP PO PRN (11:02)
--- NOTE | 2022-08-23 11:11 | History & Physical Report ---
Date of Service August 23, 2022 Assessment & Plan (1) Sepsis: Plan: 61 yo male with complicated past medical history presents with difficulty voiding, urgency with little urine output today. Admit to PCU concern that source is a UTI. Patient received fluid bolus. blood cultures urine culture obtained. Will continue IVF Patient received cefepime and dapto will continue will check PSA as concern for prostatitis If elevated will consult Urology. (2) Immunocompromised: Plan: Due to patient being a renal transplant recipient patient has been on prednisone cyclosporine (3) Severe sepsis: Plan: as above. (4) Elevated PSA: Plan: concern over poratstitis, will consult urology. (5) CKD (chronic kidney disease) stage 4, GFR 15-29 ml/min: Plan: Patient is having LORENZO, will place IVF. will monitor (6) Sarcoidosis: Plan: Patient on corticosteoirds (7) BPH (benign prostatic hyperplasia): Plan: will add finasteride (8) History of renal transplant: Plan: as above. (9) Dyslipidemia: Plan: continue home meds Admission and Anticipated Discharge Date Admission Date: August 23, 2022 History of Present Illness Chief Complaint: generalized malaise Primary Care Provider: Vinicius Ng MD 61 yo male with a complex medical history described below presents with lethargy subjective fever, chills, and difficulty voiding. History is obtained via his spouse, as patient is mainly moaning. Patient was his normal self yesterday. However, early this AM, patient was restless. Had to wake up multiple times to void and it was difficult to urinate. Patient repots only a small amount would come out. This was accompanied by generalized malaise, subjective fever and chills. Due to patient being immunocompromised due to his medications for organ transplant, patient was brought to the ER. Allergies Allergy/AdvReac Type Severity Reaction Status Date / Time allopurinol Allergy Unknown Rash Verified 08/23/22 09:43 hydromorphone [From Dilaudid] AdvReac Severe confusion Verified 08/23/22 09:43 Home Medications Medication Instructions Recorded Confirmed Type cholecalciferol (vitamin D3) 25 1,000 units PO QAM 04/24/19 08/23/22 History mcg (1,000 unit) capsule docusate sodium 100 mg capsule 100 mg PO BID PRN Constipation 04/24/19 08/23/22 History (Colace) multivitamin (Daily Multi-Vitamin 1 tab PO QAM 04/24/19 08/23/22 History tablet) tamsulosin 0.4 mg capsule (Flomax) 0.4 mg PO HS 04/24/19 08/23/22 History prednisone 5 mg tablet 5 mg PO QAM 05/29/19 08/23/22 History mycophenolate mofetil 250 mg 1,000 mg PO BID 02/20/20 08/23/22 History capsule (CellCept) magnesium oxide 800 mg PO .HOLD 06/16/21 08/23/22 History ferrous sulfate 325 mg (65 mg 325 mg PO BID 08/05/21 08/23/22 History iron) tablet (iron) gabapentin 300 mg capsule 600 mg PO BID 08/22/21 08/23/22 History (Neurontin) acetaminophen 500 mg tablet 1,000 mg PO QID PRN Pain 08/24/21 08/23/22 History (Tylenol Extra Strength) duloxetine 60 mg capsule,delayed 60 mg PO QAM #90 caps 11/13/21 08/23/22 Rx release gabapentin 300 mg capsule 900 mg PO HS 11/17/21 08/23/22 History losartan 50 mg tablet 50 mg PO DAILY #90 tabs 12/15/21 08/23/22 Rx furosemide 40 mg tablet (Lasix) 60 mg PO QAM PRN Edema 12/25/21 08/23/22 History cyclosporine modified 100 mg 100 mg PO BID 02/26/22 08/23/22 History capsule propranolol 10 mg tablet 10 mg PO .HOLD 03/24/22 08/23/22 History omeprazole 40 mg capsule,delayed 40 mg PO QAM #90 caps 04/27/22 08/23/22 Rx release febuxostat 80 mg tablet (Uloric) 80 mg PO QAM #90 tabs 06/03/22 08/23/22 Rx sildenafil (pulm.hypertension) 20 20 mg PO TID #10 tabs 06/10/22 08/23/22 Rx mg tablet Past Med/Surg History Medical History Anemia AV fistula LEFT WRIST> NO DIALYSIS CURRENTLY> [facility] STILL WORKS PER PT Discharge planning issues DVT (deep venous thrombosis) Right- 04/2019 following transplant > Coumadin S/P LEFT LEG SURGERY (EXCISION OF MELANOMA LEFT LEG) 10 YEARS AGO. 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 Chronic renal insufficiency s/p renal transplant - follows with nephro Per 07/17/20 surgeon note: "His transplant surgeons have cleared him to have this (hernia) repaired." Gout History of basal cell carcinoma Hyperphosphatemia Hypertension Knee contusion Nephrolithiasis Rectus sheath hematoma Renal transplant recipient Retroperitoneal hematoma Sarcoidosis Small bowel obstruction Supratherapeutic INR Symptomatic anemia Umbilical hernia UTI (urinary tract infection) Venous insufficiency Venous stasis dermatitis Surgical History H/O colonoscopy History of cardiac cath 01/2018 > [facility] > NO STENTS History of melanoma excision left calf History of tonsillectomy History of tooth extraction Kidney transplanted APR 04, 2019 > [facility] > right side Family History Mother Stroke Heart disease Grandmother Cancer Lung disease Denies family history of Ovarian cancer Prostate cancer Colorectal cancer Social History Smoking Status: Never smoker Second Hand Exposure: No; Do You Dip or Chew Tobacco: No; Tobacco Cessation Education Requested by Patient: No Hx Alcohol Use: No Hx Substance Use: No Preferred Language: Armenian Communication Ability: Effective Steel Grinder Required: No Beliefs That Will Affect Care: None marital status: Current Living Situation: Spouse Current Living Situation Comment: living with . current occupational status: employed current occupation: [employer] How many Children do You have: 1 Other Information That Helps Us Care for You: No Feels Safe at Home: Yes Safety Concerns: Feels Safe At This Time caffeine: Yes Dental Care, Regularly: Yes Seatbelt Use: always Sunscreen Use: Yes Assistive Devices: None Review of Systems Review of Systems: Unobtainable due to cognitive status Physical Exam Constitutional: Patient appears restless Eyes: PERRL, conjunctivae normal, anicteric sclerae ENMT: external ear and nose normal, oropharynx normal Neck: trachea midline, no thyromegaly Respiratory: normal respiratory effort, lungs clear to auscultation Cardiovascular: Rate/Rhythm: regular rhythm and + tachycardic Gastrointestinal (Abdomen): normal bowel sounds, soft, nontender, no hepatosplenomegaly Results & Data Results & Data Vital Signs (Past 12 Hours) Vital Signs Temp Pulse Resp BP Pulse Ox O2 Del Method 08/23/22 10:20 92 H 21 98 Room Air 08/23/22 10:10 95 H 17 94 Room Air 08/23/22 10:00 94 H 16 95 Room Air 08/23/22 09:50 94 H 17 96 Room Air 08/23/22 09:40 96 H 24 96 Room Air 08/23/22 09:30 96 H 22 94 Room Air 08/23/22 09:30 99/54 L Room Air 08/23/22 09:20 99 H 18 95 Room Air 08/23/22 09:10 97 H 21 96 Room Air 08/23/22 09:00 100 H 20 95 Room Air 08/23/22 09:00 104/58 L Room Air 08/23/22 08:50 100 H 18 96 Room Air 08/23/22 08:40 101 H 19 95 Room Air 08/23/22 08:30 101 H 21 95 Room Air 08/23/22 08:30 112/68 Room Air 08/23/22 08:20 105 H 23 96 Room Air 08/23/22 08:10 106 H 23 95 Room Air 08/23/22 08:00 107 H 25 H 93 Room Air 08/23/22 08:00 103/58 L Room Air 08/23/22 07:50 108 H 23 94 Room Air 08/23/22 07:40 25 H Room Air 08/23/22 07:40 120/67 Room Air 08/23/22 07:30 26 H 95 Room Air 08/23/22 07:24 19 94 Room Air 08/23/22 07:17 123 H 22 Room Air 08/23/22 08:00 108 H 08/23/22 06:43 38.7 C H 119 H 22 179/87 H 97 Room Air PG Care Time/CCT Total # of Minutes Spent Total Time Spent with Patient: Total time spent is greater than 50% in coordination of care (as documented) at patient's floor/unit and/or counseling patient: Coding Level of Care Code 26252 INT INP/OBS CARE 3/75MIN Diagnoses Sepsis A41.9 Sepsis acute organ dysfunction status: without acute organ dysfunction Sepsis type: sepsis due to unspecified organism Immunocompromised D84.9 Severe sepsis A41.9; R65.20 Elevated PSA R97.20 CKD (chronic kidney disease) stage 4, GFR 15-29 ml/min N18.4 Sarcoidosis D86.9 BPH (benign prostatic hyperplasia) N40.1; R39.11 Lower urinary tract symptom detail: urinary hesitancy Lower urinary tract symptom presence: symptoms present History of renal transplant Z94.0 Dyslipidemia E78.5 (1) Sepsis Sepsis acute organ dysfunction status: without acute organ dysfunction Sepsis type: sepsis due to unspecified organism Qualified Code(s): A41.9 - Sepsis, unspecified organism (7) BPH (benign prostatic hyperplasia) Lower urinary tract symptom detail: urinary hesitancy Lower urinary tract symptom presence: symptoms present Qualified Code(s): N40.1 - Benign prostatic hyperplasia with lower urinary tract symptoms; R39.11 - Hesitancy of micturition
[2022-08-23] MEDS: LACTATED RINGER'S 1,000 ML IV SCH (12:42)
[2022-08-23] MEDS: DULoxetine HCL 60 MG CAP PO SCH (12:42)
--- NOTE | 2022-08-23 13:44 | Electrocardiogram Report ---
Test Reason : Blood Pressure : / mmHG Vent. Rate : 120 BPM Atrial Rate : 120 BPM P-R Int : 156 ms QRS Dur : 118 ms QT Int : 322 ms P-R-T Axes : 048 -58 044 degrees QTc Int : 455 ms Sinus tachycardia Left anterior fascicular block Left ventricular hypertrophy with QRS widening Poor R wave progression, consider anterior CO vs. lead placement vs. LVH Abnormal ECG When compared with ECG of 25-FEB-2022 22:43, Right bundle branch block is no longer Present Confirmed by Vinicius Yeager ([id number]) on 08/23/2022 1:44:02 PM Referred By: REFERRED SELF Confirmed By:Vinicius Yeager
[2022-08-23] MEDS ORDERED: SILDENAFIL CITRATE 20 MG TABLET PO SCH (14:00)
[2022-08-23] MEDS ORDERED: PNEUMOCOCCAL Polysaccharide Vaccine 25mcg/0.5mL vial/Syr IM ONE (14:15)
[2022-08-23] MEDS ORDERED: [UNRECOGNIZED DRUG - OTHER] SCH (16:00)
--- NOTE | 2022-08-23 17:09 | Ultrasound Report ---
US renal transplant RT CLINICAL HISTORY: renal transplant/ only one kidney on right TECHNIQUE: Multiple sonographic real-time images of the kidneys and bladder were obtained. COMPARISON: Comparison is made to MRI abdomen 06/05/[address] abdomen pelvis 02/25/2022 FINDINGS: Exam is limited by patient cooperation. Right [place] kidney is not seen. Left [place] kidney is echogenic with a cyst measuring 3.0 x 1.9 x 2. 9 cm. The bladder is thick-walled. Jets are not seen. Transplant kidney is seen in the right lower quadrant. No hydronephrosis is seen. The renal artery an d vein are seen. IMPRESSION: No acute abnormalities are seen, in particular patent vasculature and no hydronephrosis in the transp lant kidney. ACT 112: Negative or not required by law. Electronically signed by: Mega Pan M.D. 08/23/2022 5:08 PM
[2022-08-23] MEDS ORDERED: ACETAMINOPHEN 325 MG TAB PO ONE (17:40)
[2022-08-23] MEDS: MAGNESIUM SULFATE / D5W 1 GM/100 ML BAG IV SCH ×2 (18:22→20:51)
[2022-08-23 18:58] LABS: Base Excess VBG -7.9 mEq/L; HCO3 VBG 18 mmol/L; Oxygen Saturation VBG 77.3 %; PCO2 VBG 39 mmHg (38-50); PO2 VBG 44 mmHg; pH VBG 7.28 (7.36-7.41)
[2022-08-23] MEDS ORDERED: predniSONE 10 MG TABLET PO ONE (19:00)
[2022-08-23 19:18] LABS: BUN Creatinine Ratio 19.8 (10-20); C Reactive Protein 11.21 mg/dl (0-0.5); Calcium 8.6 mg/dl (8.6-10.3); Creatinine Clr Calc Pharmacy 32.5 ml/min; Est GFR (African American) 21.3 ml/min; Est GFR (Non-African American) 18.4 ml/min; Potassium 4.5 mmol/L (3.5-5.1)
--- NOTE | 2022-08-23 19:38 | Urology Consultation ---
Date of Consultation August 23, 2022 Assessment & Plan (1) Sepsis: The patient has been admitted on the hospitalist service. We have asked to see the patient due to his elevated PSA. We recommend proceeding as follows: It appears as though the patient is septic and from the history and urinalysis it appears it is likely from a urinary source. Agree with continuing resuscitation with intravenous fluids The patient's creatinine is elevated from his baseline and would therefore recommend avoiding nephrotoxins Blood and urine cultures have been sent and we will follow for the results of these. The patient has been initiated on broad-spectrum antibiotics in the form of cefepime and daptomycin. I would recommend continue these medications until further culture data is available at which time his antibiotics can be tailored based on these results. As noted in the HPI there does not appear to be any hydronephrosis of patient's transplanted kidney Agree with placement of Bond catheter for accurate I's and O's and maximal urinary drainage in the setting of a possible urinary tract infection Concerning patient's elevated PSA, his PSA is elevated from previous values as PSA today is 41.48. His most recent value prior to this was in November 2021 which was 17.8. At the present time no active intervention will be undertaken regarding his elevated PSA and this can be followed as an outpatient once his underlying acute issues have resolved Patient does have some generalized abdominal pain we will therefore obtain a CT scan of the abdomen and pelvis to see if this provides any further information regarding the patient's current clinical status. We will not use contrast in the study due to the patient's history of renal transplant and elevated creatinine Additional recommendations be forthcoming based on his clinical course as unfolds as well as pending labs and imaging I discussed case with my attending physician Dr. Linton along with the patient's was present at bedside Addendum: Following my initial visit with this patient I obtained a CT scan abdomen pelvis as noted above. As patient has a history of renal transplant and has an elevated creatinine we elected to not use IV contrast. As the patient appears somewhat altered I do not feel he can safely consume oral contrast and this was not utilized either. CT for results showed the patient had thickening and fat stranding in the pelvis near the bladder and prostate gland which were concerning for cystitis and possible prostatitis. I discussed the results with the radiologist and he did not any additional intra-abdominal pelvic findings that would explain the patient's presenting symptomatology. We will continue with the plan as outlined above. I discussed my consultation, findings, and recommendations with the hospitalist service. History of Present Illness Reason for Consultation: Sepsis from urinary source Elevated PSA Attending Physician: Pa Potter History of Present Illness This is a 61-year-old male with a complicated past medical history. The patient underwent a renal transplant approximately 3 years ago at [facility] in [facility]. The patient does take various immunosuppressants secondary to having a kidney transplant including mycophenolate and prednisone. The patient presented denies any [facility] emergency department with altered mental status and therefore he could not provide much in the way of meaningful history. The history was obtained from review of chart and discussion with his who was present at the bedside. The patient follows with [facility] urology with Dr. Neff. This patient underwent a prostate biopsy in January 2022. Despite being pretreated with antibiotics he developed sepsis and developed an E. coli bacteremia. This E. coli was sensitive to cefepime, Zosyn, meropenem, and ertapenem. The patient was hospitalized and required 4 weeks of intravenous ertapenem upon discharge and his does note that he completed this. The patient has since followed up with Dr. Neff most recently in May of this year. The patient has a known elevated PSA and the previously noted prostate biopsy was negative for cancer and the decision was made for clinical monitoring. The patient was also noted to have bilateral retroperitoneal hemorrhages and underwent an MRI with no lesions suspicious for cancer and therefore conservative treatment was employed for this as well. The patient presented to the emergency department today secondary to altered mental status. According to the patient's he was fine in his usual state of health yesterday however earlier this morning the patient developed what she describes as urinary urgency. She notes her voided in the bathroom but then had to urinate almost immediately. She said that he was very clammy and also developed some chills. He also developed fevers between 99 and 101. He does report some generalized abdominal pain but denied any nausea or vomiting. To the best of her knowledge he did not report any dysuria or hematuria. No perineal pain was noted. The patient presented to the emergency department where he had labs and imaging. CBC revealed white blood cell count and platelet count were normal. His hemoglobin and hematocrit were 11.6 and 35.6 with were both near his baseline. The patient did have a chemistry profile where sodium and potassium were normal. His BUN and creatinine were 66 and 2.9 which were near his baseline of 2.6-3.1. Initial lactic acid level was 1.9. A urinalysis was performed that showed cloudy urine with 2+ leukocyte Estrace and negative nitrites. There were greater than 30 white blood cells per high-power field and no bacteria on the study. A COVID test was negative. Since admission the patient has had a repeat chemistry profile and repeat lactic acid level. His sodium and potassium remain normal but his BUN and creatinine have elevated slightly to 68 and 3.4. His lactic acid level has also elevated to 3.1. Patient has had imaging in the form of a chest x-ray that showed some mild pulmonary edema. A renal ultrasound was performed and this study showed a transplant kidney in the right lower quadrant with no evidence of hydronephrosis. The patient's previous culture data were reviewed and as noted he did did develop an E. coli bacteremia in January 2022 as noted above. In November 2021 he did have enterococcal bacteremia and this organism did not demonstrate any resistances. The most recent positive urine culture I was able to obtain was from July 2020 at which time he had an E. coli urinary tract infection with no resistances. Since admission a Bond catheter has been placed and the patient has been initiated on intravenous fluids and broad-spectrum antibiotics in the form of daptomycin and cefepime. At the time of my interview the patient did have some generalized abdominal pain and did appear somewhat uncomfortable. Allergies Allergy/AdvReac Type Severity Reaction Status Date / Time allopurinol Allergy Unknown Rash Verified 08/23/22 09:43 hydromorphone [From Dilaudid] AdvReac Severe confusion Verified 08/23/22 09:43 Home Medications Medication Instructions Recorded Confirmed Type cholecalciferol (vitamin D3) 25 1,000 units PO QAM 04/24/19 08/23/22 History mcg (1,000 unit) capsule docusate sodium 100 mg capsule 100 mg PO BID PRN Constipation 04/24/19 08/23/22 History (Colace) multivitamin (Daily Multi-Vitamin 1 tab PO QAM 04/24/19 08/23/22 History tablet) tamsulosin 0.4 mg capsule (Flomax) 0.4 mg PO HS 04/24/19 08/23/22 History prednisone 5 mg tablet 5 mg PO QAM 05/29/19 08/23/22 History mycophenolate mofetil 250 mg 1,000 mg PO BID 02/20/20 08/23/22 History capsule (CellCept) magnesium oxide 800 mg PO .HOLD 06/16/21 08/23/22 History ferrous sulfate 325 mg (65 mg 325 mg PO BID 08/05/21 08/23/22 History iron) tablet (iron) gabapentin 300 mg capsule 600 mg PO BID 08/22/21 08/23/22 History (Neurontin) acetaminophen 500 mg tablet 1,000 mg PO QID PRN Pain 08/24/21 08/23/22 History (Tylenol Extra Strength) duloxetine 60 mg capsule,delayed 60 mg PO QAM #90 caps 11/13/21 08/23/22 Rx release gabapentin 300 mg capsule 900 mg PO HS 11/17/21 08/23/22 History losartan 50 mg tablet 50 mg PO DAILY #90 tabs 12/15/21 08/23/22 Rx furosemide 40 mg tablet (Lasix) 60 mg PO QAM PRN Edema 12/25/21 08/23/22 History cyclosporine modified 100 mg 100 mg PO BID 02/26/22 08/23/22 History capsule propranolol 10 mg tablet 10 mg PO .HOLD 03/24/22 08/23/22 History omeprazole 40 mg capsule,delayed 40 mg PO QAM #90 caps 04/27/22 08/23/22 Rx release febuxostat 80 mg tablet (Uloric) 80 mg PO QAM #90 tabs 06/03/22 08/23/22 Rx sildenafil (pulm.hypertension) 20 20 mg PO TID #10 tabs 06/10/22 08/23/22 Rx mg tablet Patient History Medical History Anemia AV fistula LEFT WRIST> NO DIALYSIS CURRENTLY> [facility]ULA STILL WORKS PER PT Discharge planning issues DVT (deep venous thrombosis) Right- 04/2019 following transplant > Coumadin S/P LEFT LEG SURGERY (EXCISION OF MELANOMA LEFT LEG) 10 YEARS AGO. 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 Chronic renal insufficiency s/p renal transplant - follows with nephro Per 2/17/21 surgeon note: "His transplant surgeons have cleared him to have this (hernia) repaired." Gout History of basal cell carcinoma Hyperphosphatemia Hypertension Knee contusion Nephrolithiasis Rectus sheath hematoma Renal transplant recipient Retroperitoneal hematoma Sarcoidosis Small bowel obstruction Supratherapeutic INR Symptomatic anemia Umbilical hernia UTI (urinary tract infection) Venous insufficiency Venous stasis dermatitis Surgical History H/O colonoscopy History of cardiac cath 01/2018 > [facility] > NO STENTS History of melanoma excision left calf History of tonsillectomy History of tooth extraction Kidney transplanted APR 04, 2019 > [facility] > right side Family History Mother Stroke Heart disease Grandmother Cancer Lung disease Denies family history of Ovarian cancer Prostate cancer Colorectal cancer Social History Smoking Status: Never smoker Second Hand Exposure: No; Do You Dip or Chew Tobacco: No; Tobacco Cessation Education Requested by Patient: No Hx Alcohol Use: No Hx Substance Use: No Preferred Language: Pashto Communication Ability: Effective Electronic System 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 current occupational status: employed current occupation: [employer] How many Children do You have: 1 Other Information That Helps Us Care for You: No Feels Safe at Home: Yes Safety Concerns: Feels Safe At This Time caffeine: Yes Dental Care, Regularly: Yes Seatbelt Use: always Sunscreen Use: Yes Assistive Devices: CPAP Review of Systems Review of Systems: Full review of systems was attempted but limited due to patient's mental status. The information noted in the review of systems below was obtained from the patient's and a limited amount from the patient Constitutional: + fever, + chills and + sweats Respiratory: no cough and no dyspnea Cardiovascular: no chest pain Gastrointestinal: + abdominal pain; no nausea and no vomiting Genitourinary: + as per Subjective / HPI Musculoskeletal: no back pain Physical Exam Constitutional: + ill appearing Eyes: no conjunctival abnormality ENMT: Ears: no external ear abnormality Mucous membranes are somewhat dry of the oral mucosa Neck: trachea midline Respiratory: normal respiratory effort; no respiratory distress and no labored breathing Cardiovascular: Rate/Rhythm: regular rate and regular rhythm Gastrointestinal (Abdomen): Abdomen is rotund but soft. There is no rebound tenderness or guarding. The patient did have some generalized pain with palpation which appear to be greatest to the right of the umbilicus. I did not appreciate any masses. Musculoskeletal: No calf tenderness Skin: no rashes Neurologic: Patient is able to follow some simple commands and move all extremities. There is no signs of nuchal rigidity. Genitourinary: no CVA tenderness Bond catheter is in place which is draining yellow urine which appears somewhat concentrated Results & Data Vital Signs (Past 12 Hours) Vital Signs Temp Pulse Pulse Resp BP BP Pulse Ox 08/23/22 17:37 37.3 C 101 H 20 103/64 96 08/23/22 16:00 104 H 21 109/60 96 08/23/22 15:10 104 H 08/23/22 15:00 109 H 22 92 08/23/22 14:50 103 H 27 H 96 08/23/22 14:40 104 H 27 H 93 08/23/22 14:30 101 H 18 93 08/23/22 14:30 123/74 08/23/22 14:20 116 H 32 H 95 08/23/22 14:10 103 H 22 97 08/23/22 14:01 103 H 19 96 08/23/22 14:01 136/65 08/23/22 14:00 103 H 27 H 97 08/23/22 13:51 126/70 08/23/22 13:51 105 H 16 87 L 08/23/22 13:10 99 H 21 96 08/23/22 13:00 96 H 23 97 08/23/22 13:00 103/53 L 08/23/22 12:50 96 H 16 95 08/23/22 12:40 96 H 17 98 08/23/22 12:30 96 H 22 95 08/23/22 12:30 112/56 L 08/23/22 12:20 90 24 98 08/23/22 12:10 94 H 13 100 08/23/22 12:01 151/105 H 08/23/22 11:30 90 13 95 08/23/22 11:30 84/54 L 08/23/22 11:00 91 H 14 97 08/23/22 10:50 94 H 17 99 03/26/23 10:40 93 H 16 98 08/23/22 10:34 92 H 16 08/23/22 13:05 08/23/22 12:25 08/23/22 10:20 92 H 21 98 08/23/22 10:10 95 H 17 94 08/23/22 10:00 94 H 16 95 08/23/22 09:50 94 H 17 96 08/23/22 09:40 96 H 24 96 08/23/22 09:30 96 H 22 94 08/23/22 09:30 99/54 L 08/23/22 09:20 99 H 18 95 08/23/22 09:10 97 H 21 96 08/23/22 09:00 100 H 20 95 08/23/22 09:00 104/58 L 08/23/22 08:50 100 H 18 96 08/23/22 08:40 101 H 19 95 08/23/22 08:30 101 H 21 95 08/23/22 08:30 112/68 08/23/22 08:20 105 H 23 96 08/23/22 08:10 106 H 23 95 08/23/22 08:00 107 H 25 H 93 08/23/22 08:00 103/58 L 08/23/22 07:50 108 H 23 94 08/23/22 07:40 25 H 08/23/22 07:40 120/67 08/23/22 08:00 108 H O2 Del Method O2 Del Method 08/23/22 17:37 Room Air 08/23/22 16:00 08/23/22 15:10 08/23/22 15:00 08/23/22 14:50 08/23/22 14:40 08/23/22 14:30 08/23/22 14:30 08/23/22 14:20 08/23/22 14:10 08/23/22 14:01 08/23/22 14:01 08/23/22 14:00 08/23/22 13:51 08/23/22 13:51 08/23/22 13:10 08/23/22 13:00 08/23/22 13:00 08/23/22 12:50 08/23/22 12:40 08/23/22 12:30 08/23/22 12:30 Room Air 08/23/22 12:20 Room Air 08/23/22 12:10 Room Air 08/23/22 12:01 Room Air 08/23/22 11:30 08/23/22 11:30 08/23/22 11:00 08/23/22 10:50 08/23/22 10:40 Room Air 08/23/22 10:34 Room Air 08/23/22 13:05 Room Air 08/23/22 12:25 Room Air 08/23/22 10:20 Room Air 08/23/22 10:10 Room Air 08/23/22 10:00 Room Air 08/23/22 09:50 Room Air 08/23/22 09:40 Room Air 08/23/22 09:30 Room Air 08/23/22 09:30 Room Air 08/23/22 09:20 Room Air 08/23/22 09:10 Room Air 08/23/22 09:00 Room Air 08/23/22 09:00 Room Air 08/23/22 08:50 Room Air 08/23/22 08:40 Room Air 08/23/22 08:30 Room Air 08/23/22 08:30 Room Air 08/23/22 08:20 Room Air 08/23/22 08:10 Room Air 08/23/22 08:00 Room Air 08/23/22 08:00 Room Air 08/23/22 07:50 Room Air 08/23/22 07:40 Room Air 08/23/22 07:40 Room Air 08/23/22 08:00 PG Care Time/CCT Total # of Minutes Spent Total Time Spent with Patient: Total time spent is greater than 50% in coordination of care (as documented) at patient's floor/unit and/or counseling patient: Coding Level of Care Code 39454 IN/OBS CONSULT LVL 5,80M Diagnoses Sepsis A41.9 Sepsis acute organ dysfunction status: without acute organ dysfunction Sepsis type: sepsis due to unspecified organism (1) Sepsis Sepsis acute organ dysfunction status: without acute organ dysfunction Sepsis type: sepsis due to unspecified organism Qualified Code(s): A41.9 - Sepsis, unspecified organism
[2022-08-23] MEDS: SODIUM CHLORIDE 0.9% 1000ML 1,000 ML IV SCH ×2 (19:50→20:53)
--- NOTE | 2022-08-23 20:04 | CT Scan Report ---
CT abd pelvis wo con CLINICAL HISTORY: sepsis/abdominal pain TECHNIQUE: Helical axial images of the abdomen and pelvis were obtained. Automated dose lowering tech niques and/or adjustment according to patient size were utilized for this exam. This exam was perfor med without intravenous contrast. CT DOSE: 1853.86 mGy.cm COMPARISON: Comparison is made to CT abdomen pelvis 02/25/2022 FINDINGS: Lower chest: Numerous pulmonary nodules are seen in the lower lungs or visualized, most with calcifi cations, compatible with sarcoidosis. Liver: Hepatic steatosis is noted. Gallbladder and biliary tree: No calcified gallstones. Normal caliber wall. No intra- or extrahepatic biliary ductal dilation. Pancreas: Fatty replacement of the pancreas is seen. Spleen: Unremarkable. Adrenals: Unremarkable. Kidneys and ureters: Negative kidneys are atrophic. A normal-appearing transplant kidney is in the ri ght lower quadrant. Bladder: Bond catheter is seen. Bladder wall appears thickened. Reproductive organs: Prostatomegaly is seen. Bowel: The appendix is normal. No wall thickening is seen. Lymph nodes Retroperitoneal: Unremarkable. Pelvic: Unremarkable. Mesenteric: Unremarkable. Peritoneum: Normal. Vessels: Atherosclerotic calcifications are seen. Abdominal wall: A fat-containing umbilical hernia is seen. Left fat-containing inguinal hernia is see n. Bones: Degenerative changes in the visualized spine. IMPRESSION: 1. There is thickening and fat stranding about the pelvis centered around the bladder and prostate, concerning for cystitis. Correlation with urinalysis is recommended. Of note, noncontrast CT is not s ensitive for ascending infection. Prostatitis also cannot be excluded. 2. Redemonstration of numerous partially calcified pulmonary nodules compatible with sarcoidosis. 3. Hepatic steatosis. 4. Redemonstration of transplant kidney in the right lower quadrant. ACT 112: Negative or not required by law. Electronically signed by: Mega Pan M.D. 08/23/2022 8:02 PM
[2022-08-23] MEDS: CEFEPIME 2,000 MG in SYRINGE 0 ML IV SCH (20:16)
[2022-08-23] MEDS: FERROUS SULFATE 325 MG TAB PO SCH (20:16)
[2022-08-23] MEDS: TAMSULOSIN HCL 0.4 MG CAP PO SCH (20:49)
[2022-08-23] MEDS ORDERED: ACETAMINOPHEN 1,000 MG/100 ML VIAL IV PRN (21:02)
[2022-08-23] MEDS: GABAPENTIN 300 MG CAP PO SCH ×2 (21:34)
[2022-08-23 21:49] LABS: A calco-baum cmplx NotReported Not Detected (NotDetected); Bact fragilis Not Reported Not Detected (NotDetected); C auris Not Reported Not Detected (NotDetected); CTX-M Resistant Gene Not Detected (NotDetected); Calbicans Not Reported Not Detected (NotDetected); Candida glabrata Not Reported Not Detected (NotDetected); Candida krusei Not Reported Not Detected (NotDetected); Cneoformans/gatti Not Reported Not Detected (NotDetected); Cparapsilosis Not Reported Not Detected (NotDetected); Ctropicalis Not Reported Not Detected (NotDetected); E cloacae compx Not Reported Not Detected (NotDetected); Efaecalis Not Reported Not Detected (NotDetected); Efaecium Not Reported Not Detected (NotDetected); Enterobacterales Not Reported DETECTED (NotDetected); Escherichia coli Not Reported Not Detected (NotDetected); H influenzae Not Reported Not Detected (NotDetected); IMP Resistant Gene Not Detected (NotDetected); K aerogenes Not Reported Not Detected (NotDetected); KPC Resistant Gene Not Detected (NotDetected); Koxytoca Not Reported Not Detected (NotDetected); Kpneumoniae grp Not Reported Not Detected (NotDetected); Lmonocyt Not Reported Not Detected (NotDetected); N meningitidis Not Reported Not Detected (NotDetected); NDM Resistant Gene Not Detected (NotDetected); OXA 48 Like Resistant Gene Not Detected (NotDetected); P aeruginosa Not Reported Not Detected (NotDetected); Proteus spp Not Reported Not Detected (NotDetected); Salmonella spp Not Reported Not Detected (NotDetected); Smarcescens Not Reported Not Detected (NotDetected); Staph lugdunensis Not Reported Not Detected (NotDetected); Staph spp. Not Reported Not Detected (NotDetected); Staphaureus Not Reported Not Detected (NotDetected); Staphepi Not Reported Not Detected (NotDetected); Stenmaltophilia Not Reported Not Detected (NotDetected); Strep agal(GrpB) Not Reported Not Detected (NotDetected); Strep pneum Not Reported Not Detected (NotDetected); Strep pyog (GrpA) Not Reported Not Detected (NotDetected); Strep spp Not Reported Not Detected (NotDetected); VIM Resistant Gene Not Detected (NotDetected)
[2022-08-23 22:06] LABS: Enterobacterales DETECTED (NotDetected)
[2022-08-24] MEDS: LACTATED RINGER'S 1,000 ML IV SCH (03:16)
[2022-08-24 08:19] LABS: Hematocrit (blood only) 29.7 % (42.0-52.0); Hemoglobin 9.8 g/dl (14.0-18.0); Mean Corpuscular Hemoglobin 31.9 pg (25.0-34.0); Mean Corpuscular Volume 96.7 fL (80.0-100.0); Mean Platelet Volume 10.5 fL (9.4-12.4); Platelet Count 120 K/uL (130-400); RDW Coefficient of Variation 13.2 % (11.5-14.5); RDW Standard Deviation 46.5 fL (36.4-46.3); Red Blood Count 3.07 M/uL (4.70-6.10); White Blood Count 25.51 K/ul (4.8-10.8)
[2022-08-24 08:22] LABS: Base Excess VBG -7.8 mEq/L; HCO3 VBG 18 mmol/L; Oxygen Saturation VBG 95.1 %; PCO2 VBG 35 mmHg (38-50); PO2 VBG 61 mmHg; pH VBG 7.31 (7.36-7.41)
[2022-08-24 08:40] LABS: Albumin Globulin Ratio 1.5 (0.9-2); Albumin Level 3.5 gm/dl (3.4-5.0); BUN Creatinine Ratio 19.5 (10-20); Bilirubin,Total 0.8 mg/dl (0.2-1.0); C Reactive Protein 25.35 mg/dl (0-0.5); Calcium 8.3 mg/dl (8.6-10.3); Creatinine Clr Calc Pharmacy 30.5 ml/min; Est GFR (African American) 19.5 ml/min; Est GFR (Non-African American) 16.8 ml/min; Globulin 2.3 gm/dl (2.5-4.0); Magnesium 1.7 mg/dl (1.7-2.4); Phosphorus 2.4 mg/dl (2.5-4.9); Potassium 5.1 mmol/L (3.5-5.1); Total Protein 5.8 gm/dl (6.0-8.3)
[2022-08-24] MEDS: GABAPENTIN 300 MG CAP PO SCH ×3 (08:40→21:39)
[2022-08-24] MEDS: FINASTERIDE 5 MG TAB PO SCH (08:41)
[2022-08-24] MEDS: PANTOprazole 40 MG TAB PO SCH (08:41)
[2022-08-24] MEDS: CHOLECALCIFEROL 1,000 UNITS 25 MCG TAB PO SCH (08:41)
[2022-08-24] MEDS: DULoxetine HCL 60 MG CAP PO SCH (08:42)
[2022-08-24] MEDS: FEBUXOSTAT PO SCH (08:43)
[2022-08-24] MEDS: MULTIVITAMIN TAB PO SCH (08:43)
[2022-08-24] MEDS: FERROUS SULFATE 325 MG TAB PO SCH ×2 (08:43→21:34)
[2022-08-24] MEDS: CEFEPIME 2,000 MG in SYRINGE 0 ML IV SCH ×2 (08:44→21:34)
[2022-08-24 08:47] LABS: Basophils # (auto) 0.08 K/uL (0-0.2); Basophils % (auto) 0.3 %; Dohle Bodies 1+; Echinocytes 1+; Eosinophils # (auto) 0.11 K/uL (0-0.50); Eosinophils % (auto) 0.4 %; Immature Granulocytes # (auto) 2.02 K/uL (0.01-0.20); Immature Granulocytes % (auto) 7.9 %; Lymphocytes # (auto) 0.21 K/uL (1.2-3.4); Lymphocytes % (auto) 0.8 %; Monocytes # (auto) 1.45 K/uL (0.11-0.59); Monocytes % (auto) 5.7 %; Neutrophils # (auto) 21.64 K/uL (1.40-6.50); Neutrophils % (auto) 84.9 %
[2022-08-24] MEDS ORDERED: LOSARTAN POTASSIUM 50 MG TAB PO SCH (09:00)
[2022-08-24] MEDS ORDERED: DAPTOmycin 600 MG in SYRINGE 0 ML IV SCH (09:00)
[2022-08-24] MEDS ORDERED: HEPARIN SOD 5,000 UNIT/0.5 ML VIAL SQ STA (09:44)
[2022-08-24] MEDS: HEPARIN SOD 5,000 UNIT/0.5 ML VIAL SQ SCH (17:40)
--- NOTE | 2022-08-24 21:10 | Hospitalist Progress Note ---
Date of Service August 24, 2022 Assessment & Plan (1) Sepsis: Plan: 61 yo male with complicated past medical history presents with difficulty voiding, urgency with little urine output today. Admit to PCU concern that source is a UTI. Patient received fluid bolus. blood cultures urine culture obtained. urine cuture positive for gram negative bacteria. will stop dapto. continue cefepime will continue PSA is positive. higher than usual level. concern over prostatitis (2) Immunocompromised: Plan: Due to patient being a renal transplant recipient patient has been on prednisone cyclosporine these medications will be held. Patient had stress dose of prednisone on day of admission. (3) Severe sepsis: Plan: as above. (4) Elevated PSA: Plan: concern over poratstitis, will consult urology. (5) CKD (chronic kidney disease) stage 4, GFR 15-29 ml/min: Plan: Patient is having LORENZO, will place IVF. will monitor creatinine is slowly rising, will monitor (6) Sarcoidosis: Plan: Patient on corticosteoirds (7) BPH (benign prostatic hyperplasia): Plan: will add finasteride (8) History of renal transplant: Plan: as above. (9) Dyslipidemia: Plan: continue home meds Admission and Anticipated Discharge Date Admission Date: August 23, 2022 Subjective Patient reports feeling better, however he is having diarrhea. Review of Systems Review of Systems: All systems reviewed & are unremarkable except as noted in HPI & below Physical Exam Eyes: PERRL, conjunctivae normal, anicteric sclerae ENMT: external ear and nose normal, oropharynx normal Neck: trachea midline, no thyromegaly Respiratory: normal respiratory effort, lungs clear to auscultation Cardiovascular: Rate/Rhythm: regular rhythm and + tachycardic Gastrointestinal (Abdomen): normal bowel sounds, soft, nontender, no hepatosplenomegaly Results & Data Results & Data Vital Signs (Past 12 Hours) Vital Signs Temp Pulse Pulse Resp BP BP Pulse Ox 08/24/22 19:47 36.8 C 80 20 142/76 H 95 08/24/22 16:21 78 08/24/22 15:59 36.7 C 77 18 154/74 H 95 08/24/22 12:00 08/24/22 13:49 36.5 C 08/24/22 11:15 36.9 C 84 18 139/74 92 08/24/22 09:19 08/24/22 09:19 85 O2 Del Method O2 Del Method 08/24/22 19:47 Room Air 08/24/22 16:21 08/24/22 15:59 Room Air 08/24/22 12:00 Room Air 08/24/22 13:49 08/24/22 11:15 Room Air 08/24/22 09:19 Room Air 08/24/22 09:19 PG Care Time/CCT Total # of Minutes Spent Total Time Spent with Patient: Total time spent is greater than 50% in coordination of care (as documented) at patient's floor/unit and/or counseling patient: Coding Level of Care Code 82553 SUB INP/OBS CARE 3/50MIN Diagnoses Sepsis A41.9 Sepsis acute organ dysfunction status: without acute organ dysfunction Sepsis type: sepsis due to unspecified organism Immunocompromised D84.9 Severe sepsis A41.9; R65.20 Elevated PSA R97.20 CKD (chronic kidney disease) stage 4, GFR 15-29 ml/min N18.4 Sarcoidosis D86.9 BPH (benign prostatic hyperplasia) N40.1; R39.11 Lower urinary tract symptom presence: symptoms present Lower urinary tract symptom detail: urinary hesitancy History of renal transplant Z94.0 Dyslipidemia E78.5 (1) Sepsis Sepsis acute organ dysfunction status: without acute organ dysfunction Sepsis type: sepsis due to unspecified organism Qualified Code(s): A41.9 - Sepsis, unspecified organism (7) BPH (benign prostatic hyperplasia) Lower urinary tract symptom presence: symptoms present Lower urinary tract symptom detail: urinary hesitancy Qualified Code(s): N40.1 - Benign prostatic hyperplasia with lower urinary tract symptoms; R39.11 - Hesitancy of micturition
[2022-08-24] MEDS: TAMSULOSIN HCL 0.4 MG CAP PO SCH (21:39)
[2022-08-25] MEDS: HEPARIN SOD 5,000 UNIT/0.5 ML VIAL SQ SCH ×3 (02:56→18:13)
[2022-08-25 07:29] LABS: Hematocrit (blood only) 30.3 % (42.0-52.0); Hemoglobin 10.1 g/dl (14.0-18.0); Mean Corpuscular Hemoglobin 31.6 pg (25.0-34.0); Mean Corpuscular Hgb Conc 33.3 g/dL (32.0-36.0); Mean Corpuscular Volume 94.7 fL (80.0-100.0); Mean Platelet Volume 10.8 fL (9.4-12.4); Platelet Count 132 K/uL (130-400); RDW Coefficient of Variation 13.2 % (11.5-14.5); RDW Standard Deviation 46.2 fL (36.4-46.3); White Blood Count 21.03 K/ul (4.8-10.8)
[2022-08-25 07:59] LABS: BUN Creatinine Ratio 21.9 (10-20); Calcium 8.9 mg/dl (8.6-10.3); Creatinine Clr Calc Pharmacy 33.6 ml/min; Potassium 4.5 mmol/L (3.5-5.1)
[2022-08-25] MEDS: GABAPENTIN 300 MG CAP PO SCH ×3 (08:42→20:41)
[2022-08-25] MEDS: FERROUS SULFATE 325 MG TAB PO SCH ×2 (08:42→20:41)
[2022-08-25] MEDS: DULoxetine HCL 60 MG CAP PO SCH (08:42)
[2022-08-25] MEDS: CEFEPIME 2,000 MG in SYRINGE 0 ML IV SCH (08:42)
[2022-08-25] MEDS: PANTOprazole 40 MG TAB PO SCH (08:42)
[2022-08-25] MEDS: FINASTERIDE 5 MG TAB PO SCH (08:42)
[2022-08-25] MEDS: FEBUXOSTAT PO SCH (08:42)
[2022-08-25] MEDS: MULTIVITAMIN TAB PO SCH (08:42)
[2022-08-25 08:52] LABS: C Reactive Protein 31.83 mg/dl (0-0.5)
[2022-08-25] MEDS: CHOLECALCIFEROL 1,000 UNITS 25 MCG TAB PO SCH (11:05)
--- NOTE | 2022-08-25 12:59 | Nephrology Consultation ---
Date of Consultation August 25, 2022 Assessment & Plan (1) Severe sepsis: (2) History of kidney transplant: (3) Immunocompromised: (4) Anemia: (5) Anemia: (6) Metabolic acidosis: Plan 61-year-old male with history of renal transplant with advanced allograft dysfunction, baseline creatinine 2.8-3.2, repeated complicated urinary tract infection, admitted to the hospital with change in mental status and found to be in severe sepsis with UTI and bacteremia. Initially was on daptomycin, clinically improved and currently on cefepime. Creatinine was elevated at 3.7, slightly improved to 3.3 this morning, has metabolic acidosis and anemia. Renal function close to baseline with underlying advanced allograft dysfunction, metabolic acidosis and anemia. -- Start on sodium bicarbonate 650 mg twice a day -- encourage p.o. intake, keep well hydrated -- dose medications for EGFR less than 30, left arm nephrology precaution -- decrease gabapentin to maximum 300 mg daily -- iron study -- check CBC, if adequate iron store and hemoglobin less than 10, will start on Epogen Thank you for allowing me to participate in your patient's care. It was a pleasure to see Kirby. History of Present Illness Reason for Consultation: LORENZO with stage IV CKD, renal transplant status, admitted with sepsis. The Attending Physician: Pa Potter History of Present Illness Mr. Kirby Prado is a 61 -year-old gentleman with past medical history significant for end-stage renal status post renal transplant, stage IV CKD with allograft dysfunction admitted to the hospital with urosepsis and bacteremia. Nephrology consult was requested for management of LORENZO, advanced CKD and renal transplant status. EMR records are reviewed in detail during patient's visit. Kirby was admitted to the hospital on 08/23/2022 after he presented with change in mental status, restlessness and difficulty voiding. according to the report patient was otherwise in his usual state of health until the day before admission. On the morning of admission he was started having increased frequency of urination, chills and generalized abdominal pain but no nausea or vomiting. Was noted to be septic on admission and blood culture and urine culture both came back positive for Cytobactor koseri, initially he was on daptomycin, currently switched to cefepime. renal ultrasound and CT abdomen pelvis was negative for postrenal obstruction, left lower quadrant allograft kidney was otherwise unremarkable but CT was concerning for cystitis. creatinine on admission was 3.4 slightly worsened to 3.7 yesterday but being down to 3.3, has metabolic acidosis. Kirby had end-stage renal disease ( did not have [place] kidney biopsy) and status post LURT (Donor is his [id number] ) in March 2019. initially creatinine stayed relatively stable and settle around 1.2-1.4 mg/dL. in summer he had DVT and he was found to have high-grade proteinuria and generalized edema and allograft biopsy showed FSGS. Had plasmapheresis and IVIG followed by Rituxan. Belatacept was then switched to cyclosporin in addition to mycophenolate mofetil 1 g twice daily. His serum creatinine stabilized in the range of 1.5-2.0 mg/dL. Proteinuria has trended down from >5 grams to 0.5 grams. Over last 1 year baseline creatinine staying around 2.8-3.2. He has complicated urological history since his renal transplant and and many episodes of UTI, prostatitis leading to sepsis over last 3 years. Had an episode of prostatitis in December 2019 requiring 1 month of antibiotic. He again had recurrence of prostatitis in July of 2020 which was treated with ciprofloxacin. In December 19 he had enterococcal bacteremia requiring hospitalization. In January 2022 he developed sepsis and E coli bacteremia he underwent a prostate biopsy despite getting antibiotic prior to the procedure. He was hospitalized and required 4 weeks of intravenous ertapenem upon discharge. Has known elevated PSA and the previously prostate biopsy was negative for cancer and the decision was made for clinical monitoring. He also had bilateral retroperitoneal hemorrhages and underwent an MRI with no lesions suspicious for cancer. He has a history of obstructive sleep apnea, using CPAP. Overall he is feeling better this morning, feels bloated in his abdomen as he did not have bowel movement for last 2 days. Denied significant shortness of breath. Blood pressure has been acceptable. Allergies Allergy/AdvReac Type Severity Reaction Status Date / Time allopurinol Allergy Unknown Rash Verified 08/23/22 09:43 hydromorphone [From Dilaudid] AdvReac Severe confusion Verified 08/23/22 09:43 Home Medications Medication Instructions Recorded Confirmed Type cholecalciferol (vitamin D3) 25 1,000 units PO QAM 04/24/19 08/23/22 History mcg (1,000 unit) capsule docusate sodium 100 mg capsule 100 mg PO BID PRN Constipation 04/24/19 08/23/22 History (Colace) multivitamin (Daily Multi-Vitamin 1 tab PO QAM 04/24/19 08/23/22 History tablet) tamsulosin 0.4 mg capsule (Flomax) 0.4 mg PO HS 04/24/19 08/23/22 History prednisone 5 mg tablet 5 mg PO QAM 05/29/19 08/23/22 History mycophenolate mofetil 250 mg 1,000 mg PO BID 02/20/20 08/23/22 History capsule (CellCept) magnesium oxide 800 mg PO .HOLD 06/16/21 08/23/22 History ferrous sulfate 325 mg (65 mg 325 mg PO BID 08/05/21 08/23/22 History iron) tablet (iron) gabapentin 300 mg capsule 600 mg PO BID 08/22/21 08/23/22 History (Neurontin) acetaminophen 500 mg tablet 1,000 mg PO QID PRN Pain 08/24/21 08/23/22 History (Tylenol Extra Strength) duloxetine 60 mg capsule,delayed 60 mg PO QAM #90 caps 11/13/21 08/23/22 Rx release gabapentin 300 mg capsule 900 mg PO HS 11/17/21 08/23/22 History losartan 50 mg tablet 50 mg PO DAILY #90 tabs 12/15/21 08/23/22 Rx furosemide 40 mg tablet (Lasix) 60 mg PO QAM PRN Edema 12/25/21 08/23/22 History cyclosporine modified 100 mg 100 mg PO BID 02/26/22 08/23/22 History capsule propranolol 10 mg tablet 10 mg PO .HOLD 03/24/22 08/23/22 History omeprazole 40 mg capsule,delayed 40 mg PO QAM #90 caps 04/27/22 08/23/22 Rx release febuxostat 80 mg tablet (Uloric) 80 mg PO QAM #90 tabs 06/03/22 08/23/22 Rx sildenafil (pulm.hypertension) 20 20 mg PO TID #10 tabs 06/10/22 08/23/22 Rx mg tablet Patient History Medical History (Updated 08/25/22 @ 17:34 by Caro Duarte MD) Anemia AV fistula LEFT WRIST> NO DIALYSIS CURRENTLY> F[facility]ULA STILL WORKS PER PT Discharge planning issues DVT (deep venous thrombosis) Right- 04/2019 following transplant > Coumadin S/P LEFT LEG SURGERY (EXCISION OF MELANOMA LEFT LEG) 10 YEARS AGO. 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 Chronic renal insufficiency s/p renal transplant - follows with nephro Per 07/17/20 surgeon note: "His transplant surgeons have cleared him to have this (hernia) repaired." Gout History of basal cell carcinoma Hyperphosphatemia Hypertension Knee contusion Metabolic acidosis Nephrolithiasis Rectus sheath hematoma Renal transplant recipient Retroperitoneal hematoma Sarcoidosis Small bowel obstruction Supratherapeutic INR Symptomatic anemia Umbilical hernia UTI (urinary tract infection) Venous insufficiency Venous stasis dermatitis Surgical History H/O colonoscopy History of cardiac cath 01/2018 > [facility] > NO STENTS History of melanoma excision left calf History of tonsillectomy History of tooth extraction Kidney transplanted APR 04, 2019 > [facility] > right side Family History Mother Stroke Heart disease Grandmother Cancer Lung disease Denies family history of Ovarian cancer Prostate cancer Colorectal cancer Social History Smoking Status: Never smoker Second Hand Exposure: No; Do You Dip or Chew Tobacco: No; Tobacco Cessation Education Requested by Patient: No Hx Alcohol Use: No Hx Substance Use: No Preferred Language: Chinese Communication Ability: Effective 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 current occupational status: employed current occupation: [employer] How many Children do You have: 1 Other Information That Helps Us Care for You: No Feels Safe at Home: Yes Safety Concerns: Feels Safe At This Time caffeine: Yes Dental Care, Regularly: Yes Seatbelt Use: always Sunscreen Use: Yes Assistive Devices: None Review of Systems Review of Systems: Detailed review of system was done and pertinent positives and negatives are mentioned above. Physical Exam Constitutional: WD/WN, vitals as above + ill appearing; no acute distress Eyes: + anicteric sclerae Neck: normal visual inspection Respiratory: no respiratory distress Auscultation: lungs clear to auscultation bilaterally Cardiovascular: Rate/Rhythm: regular rate and regular rhythm Heart Sounds: normal S1 and normal S2 Extremities: no edema Gastrointestinal (Abdomen): Inspection/Auscultation: abdomen normal to inspection, + abdomen distended and normal bowel sounds Percussion/Palpation: abdomen soft; abdomen nontender Musculoskeletal: Extremities: extremities normal to inspection Skin: no rashes Neurologic: no focal motor deficits and not confused Psychiatric: Orientation: alert and oriented x 3 Affect: euthymic affect Results & Data Vital Signs (Past 12 Hours) Vital Signs Temp Pulse Pulse Resp BP Pulse Ox O2 Del Method 08/25/22 11:46 36.4 C L 76 18 162/83 H 97 Room Air 08/25/22 08:00 Room Air 08/25/22 08:00 83 08/25/22 08:06 36.5 C 81 20 175/90 H 97 Room Air 08/25/22 02:46 36.7 C 85 20 166/84 H 95 Room Air PG Care Time/CCT Total # of Minutes Spent Total Time Spent with Patient: Total time spent is greater than 50% in coordination of care (as documented) at patient's floor/unit and/or counseling patient: Coding Level of Care Code 40839 IN/OBS CONSULT LVL 5,80M Diagnoses Severe sepsis A41.9; R65.20 History of kidney transplant Z94.0 Immunocompromised D84.9 Anemia D64.9 Metabolic acidosis E87.20
--- NOTE | 2022-08-25 15:59 | Urology Progress Note ---
Date of Service August 25, 2022 Assessment & Plan (1) Sepsis: (2) Elevated PSA: Plan: 61-year-old male with history of renal transplant admitted for sepsis from suspected urinary source; elevated PSA. - Patient afebrile and hemodynamically stable. - Lab work reviewedcreatinine 3.34, WBC 21.03, hemoglobin 10.1. - Urine and blood cultures grew out Citrobacter koseri, pansensitive. He remains on IV cefepime. - Bond catheter is patent and draining clear yellow urine. Recommend maintain Bond catheter at this time. - Continue supportive care, antibiotics, and medical management per primary team. - Recommend transition to appropriate PO antibiotics upon discharge x 14 days. - Can consider extension of antibiotics in follow-up pending his clinical course. - Will arrange close outpatient follow-up with urology next week with voiding trial. - will follow peripherally. Admission and Anticipated Discharge Date Admission Date: August 23, 2022 Subjective Patient seen and examined at bedside this afternoon. He is resting in bedside chair, arouses to his name. He reports he is slowly improving. Reports fatigue. Bond catheter is causing some minor bother. Notes some mild dysuria and bladder discomfort intermittently. No flank pain. Bond patent and draining clear yellow urine. He reports low appetite, but no nausea or vomiting. Reports diarrhea yesterday. No fever or chills. Review of Systems Constitutional: as per Subjective / HPI Gastrointestinal: as per Subjective / HPI Genitourinary: + as per Subjective / HPI Physical Exam Constitutional: well developed, well nourished and + obese; no acute distress Respiratory: normal respiratory effort; no respiratory distress and no labored breathing Gastrointestinal (Abdomen): Inspection/Auscultation: abdomen normal to inspection; abdomen not distended Neurologic: somnolent, but arousable and answers questions Psychiatric: Orientation: oriented x 3 Genitourinary: Bond patent and draining clear yellow urine Results & Data Vital Signs (Past 12 Hours) Vital Signs Temp Pulse Pulse Resp BP Pulse Ox O2 Del Method 08/25/22 15:41 36.8 C 79 19 131/70 97 Room Air 08/25/22 11:46 36.4 C L 76 18 162/83 H 97 Room Air 08/25/22 08:00 Room Air 08/25/22 08:00 83 03/28/23 08:06 36.5 C 81 20 175/90 H 97 Room Air PG Care Time/CCT Total # of Minutes Spent Total Time Spent with Patient: Total time spent is greater than 50% in coordination of care (as documented) at patient's floor/unit and/or counseling patient: Coding Level of Care Code 30272 SUB INP/OBS CARE 06/24MIN Diagnoses Sepsis A41.9 Sepsis acute organ dysfunction status: without acute organ dysfunction Sepsis type: sepsis due to unspecified organism Elevated PSA R97.20 (1) Sepsis Sepsis acute organ dysfunction status: without acute organ dysfunction Sepsis type: sepsis due to unspecified organism Qualified Code(s): A41.9 - Sepsis, unspecified organism
[2022-08-25] MEDS ORDERED: MENTHOL-ZINC OXIDE 360 APPLN/120 GM TUBE EXT SCH (18:45)
[2022-08-25] MEDS: SODIUM BICARBONATE 650 MG TAB PO SCH (20:42)
[2022-08-25] MEDS: SULFAMETHOXAZOLE/TRIMETHOPRIM DS 800/160MG TAB PO SCH (20:42)
[2022-08-25] MEDS: TAMSULOSIN HCL 0.4 MG CAP PO SCH (20:42)
--- NOTE | 2022-08-25 22:03 | Hospitalist Progress Note ---
Date of Service August 25, 2022 Assessment & Plan (1) Sepsis: Plan: *Gram-negative sepsis *Metabolic encephalopathy in the setting of sepsis, UTI 61 yo male with complicated past medical history presents with difficulty voiding, urgency with little urine output today. Admit to PCU Patient with a complicated UTI, concern over possible prostatitis blood cultures urine culture obtained. urine/blood culture positive for gram negative bacteria. will stop dapto. treated with cefepime PSA is positive. higher than usual level. Due to concern over prostatitis, will treat with bactrim. Patient has been intermittently confused during his stay here with lethargy. (2) Immunocompromised: Plan: Due to patient being a renal transplant recipient patient has been on prednisone cyclosporine these medications will be held. Patient had stress dose of prednisone on day of admission. (3) Severe sepsis: Plan: as above. (4) Elevated PSA: Plan: concern over poratstitis, will consult urology. (5) CKD (chronic kidney disease) stage 4, GFR 15-29 ml/min: Plan: Patient is having LORENZO, will place IVF. will monitor creatinine appears at baseline, will monitor (6) Sarcoidosis: Plan: Patient on corticosteoirds on admission, on hold since. (7) BPH (benign prostatic hyperplasia): Plan: will add finasteride (8) History of renal transplant: Plan: as above. (9) Dyslipidemia: Plan: continue home meds Admission and Anticipated Discharge Date Admission Date: August 23, 2022 Subjective 61 yo male reports feeling better, still feels weak. No fever, chills, nausea, vomitiing. Patient though has been having diarrhea. Review of Systems Review of Systems: All systems reviewed & are unremarkable except as noted in HPI & below Physical Exam Eyes: PERRL, conjunctivae normal, anicteric sclerae ENMT: external ear and nose normal, oropharynx normal Neck: trachea midline, no thyromegaly Respiratory: normal respiratory effort, lungs clear to auscultation Cardiovascular: Rate/Rhythm: regular rhythm and + tachycardic Gastrointestinal (Abdomen): normal bowel sounds, soft, nontender, no hepatosplenomegaly Results & Data Results & Data Vital Signs (Past 12 Hours) Vital Signs Temp Pulse Resp BP Pulse Ox O2 Del Method 08/25/22 19:24 36.7 C 82 20 147/84 H 99 Room Air 08/25/22 15:41 36.8 C 79 19 131/70 97 Room Air 08/25/22 11:46 36.4 C L 76 18 162/83 H 97 Room Air PG Care Time/CCT Total # of Minutes Spent Total Time Spent with Patient: Total time spent is greater than 50% in coordination of care (as documented) at patient's floor/unit and/or counseling patient: Coding Level of Care Code 00771 SUB INP/OBS CARE 2/35MIN Diagnoses Sepsis A41.9 Sepsis acute organ dysfunction status: without acute organ dysfunction Sepsis type: sepsis due to unspecified organism Immunocompromised D84.9 Severe sepsis A41.9; R65.20 Elevated PSA R97.20 CKD (chronic kidney disease) stage 4, GFR 15-29 ml/min N18.4 Sarcoidosis D86.9 BPH (benign prostatic hyperplasia) N40.1; R39.11 Lower urinary tract symptom detail: urinary hesitancy Lower urinary tract symptom presence: symptoms present History of renal transplant Z94.0 Dyslipidemia E78.5 (1) Sepsis Sepsis acute organ dysfunction status: without acute organ dysfunction Sepsis type: sepsis due to unspecified organism Qualified Code(s): A41.9 - Sepsis, unspecified organism (7) BPH (benign prostatic hyperplasia) Lower urinary tract symptom detail: urinary hesitancy Lower urinary tract symptom presence: symptoms present Qualified Code(s): N40.1 - Benign prostatic hyperplasia with lower urinary tract symptoms; R39.11 - Hesitancy of micturition
[2022-08-26] MEDS ORDERED: Nursing to Pharmacy Communication SCH (00:15)
[2022-08-26] MEDS: HEPARIN SOD 5,000 UNIT/0.5 ML VIAL SQ SCH ×3 (01:25→17:05)
[2022-08-26 07:01] LABS: Hemoglobin 9.7 g/dl (14.0-18.0); Mean Corpuscular Hemoglobin 32.4 pg (25.0-34.0); Mean Corpuscular Hgb Conc 33.4 g/dL (32.0-36.0); Mean Platelet Volume 10.9 fL (9.4-12.4); Platelet Count 131 K/uL (130-400); RDW Coefficient of Variation 13.2 % (11.5-14.5); Red Blood Count 2.99 M/uL (4.70-6.10); White Blood Count 12.91 K/ul (4.8-10.8)
[2022-08-26 07:55] LABS: Albumin Level 3.4 gm/dl (3.4-5.0); Creatinine Clr Calc Pharmacy 38.1 ml/min; Est GFR (African American) 25.4 ml/min; Est GFR (Non-African American) 21.9 ml/min; Phosphorus 2.8 mg/dl (2.5-4.9); Potassium 4.2 mmol/L (3.5-5.1)
[2022-08-26] MEDS: FINASTERIDE 5 MG TAB PO SCH (08:05)
[2022-08-26] MEDS: GABAPENTIN 300 MG CAP PO SCH (08:05)
[2022-08-26] MEDS: CHOLECALCIFEROL 1,000 UNITS 25 MCG TAB PO SCH (08:06)
[2022-08-26] MEDS: PANTOprazole 40 MG TAB PO SCH (08:06)
[2022-08-26] MEDS: FERROUS SULFATE 325 MG TAB PO SCH (08:06)
[2022-08-26] MEDS: DULoxetine HCL 60 MG CAP PO SCH (08:06)
[2022-08-26] MEDS: MULTIVITAMIN TAB PO SCH (08:06)
[2022-08-26] MEDS: SULFAMETHOXAZOLE/TRIMETHOPRIM DS 800/160MG TAB PO SCH (08:07)
[2022-08-26] MEDS: SODIUM BICARBONATE 650 MG TAB PO SCH (08:07)
[2022-08-26] MEDS: FEBUXOSTAT PO SCH (08:07)
[2022-08-26 08:14] LABS: Ferritin 444.3 ng/ml (8-388)
[2022-08-26 11:44] LABS: HCO3 VBG 18 mmol/L; Oxygen Saturation VBG 95.8 %; PCO2 VBG 33 mmHg (38-50); PO2 VBG 65 mmHg; pH VBG 7.34 (7.36-7.41)
[2022-08-26] MEDS ORDERED: ACETAMINOPHEN 325 MG TAB PO ONE (14:03)
--- NOTE | 2022-08-26 15:30 | Nephrology Progress Note ---
Date of Service August 26, 2022 Assessment & Plan (1) Severe sepsis: (2) History of kidney transplant: (3) Immunocompromised: (4) Anemia: (5) Metabolic acidosis: Plan 61-year-old male with history of renal transplant with advanced allograft dysfunction, baseline creatinine 2.8-3.2, repeated complicated urinary tract infection, admitted to the hospital with change in mental status and found to be in severe sepsis with UTI and bacteremia. Initially was on daptomycin, clinical ly improved and currently on cefepime. Creatinine was elevated at 3.7, slightly improved to 3.3 this morning, has metabolic acidosis and anemia. Renal function close to baseline with underlying advanced allograft dysfunction, metabolic acidosis and anemia. -- consider DC Bond with recurrent complicated UTI. -- continue on sodium bicarbonate 650 mg twice a day -- encourage p.o. intake, keep well hydrated -- dose medications for EGFR less than 30, left arm nephrology precaution -- decrease gabapentin to maximum 300 mg daily -- check CBC, if adequate iron store and hemoglobin less than 10, will start on Epogen Will follow Admission and Anticipated Discharge Date Admission Date: August 23, 2022 Subjective Kirby was seen and evaluated this morning. Overall doing well, denies SOB, CP, appetite not that great, bothered by Bond catheter. BP acceptable. Cr improved, closed to baseline. Review of Systems Review of Systems: Detailed review of system was done and pertinent positives and negatives are mentioned above. Physical Exam Constitutional: + ill appearing; no acute distress Eyes: PERRL, conjunctivae normal, anicteric sclerae Respiratory: normal respiratory effort, lungs clear to auscultation Cardiovascular: Rate/Rhythm: regular rate and regular rhythm Musculoskeletal: no cyanosis or clubbing, extremities motor strength 5/5 Skin: no rashes, warm and dry Neurologic: no focal motor deficits Psychiatric: A+Ox3, euthymic affect Results & Data Vital Signs (Past 12 Hours) Vital Signs Temp Pulse Pulse Resp BP Pulse Ox O2 Del Method 08/26/22 11:44 36.4 C L 80 18 114/76 96 Room Air 08/26/22 11:33 73 08/26/22 10:00 Room Air 08/26/22 07:56 36.9 C 74 19 142/86 H 99 Room Air PG Care Time/CCT Total # of Minutes Spent Total Time Spent with Patient: Total time spent is greater than 50% in coordination of care (as documented) at patient's floor/unit and/or counseling patient: Coding Level of Care Code 57985 SUB INP/OBS CARE 3/50MIN Diagnoses Severe sepsis A41.9; R65.20 History of kidney transplant Z94.0 Immunocompromised D84.9 Anemia D64.9 Metabolic acidosis E87.20
[2022-08-26] MEDS ORDERED: PHENAZOPYRIDINE HCL 200 MG TAB PO STA (16:27)
[2022-08-26] MEDS ORDERED: LIDOCAINE 2% JELLY 5 ML TUBE EXT ONE (17:08)
--- NOTE | 2022-08-27 23:15 | Discharge Summary ---
Date of Service August 26, 2022 Admission HPI Per Admitting Provider 61 yo male with a complex medical history described below presents with lethargy subjective fever, chills, and difficulty voiding. History is obtained via his spouse, as patient is mainly moaning. Patient was his normal self yesterday. However, early this AM, patient was restless. Had to wake up multiple times to void and it was difficult to urinate. Patient repots only a small amount would come out. This was accompanied by generalized malaise, subjective fever and chills. Due to patient being immunocompromised due to his medications for organ transplant, patient was brought to the ER. Principal Diagnosis sepsis Discharge Exam Eyes PERRL, conjunctivae normal, anicteric sclerae ENMT external ear and nose normal, oropharynx normal Neck trachea midline, no thyromegaly Respiratory normal respiratory effort, lungs clear to auscultation Cardiovascular Rate/Rhythm: regular rhythm and + tachycardic Gastrointestinal (Abdomen) normal bowel sounds, soft, nontender, no hepatosplenomegaly Discharge Data Allergies Allergy/AdvReac Type Severity Reaction Status Date / Time allopurinol Allergy Unknown Rash Verified 08/23/22 09:43 hydromorphone [From Dilaudid] AdvReac Severe confusion Verified 08/23/22 09:43 Consultations 08/23/22 08:37 ED Decision to Admit Stat 08/23/22 18:12 Consult Urology Routine 08/25/22 12:29 Consult Nephrology Routine Ordered Studies 08/23/22 11:37 renal transplant RT Routine 08/23/22 19:29 CT Abd and Pelvis [CT abd pelvis wo con] Stat Hospital Course (1) Sepsis: *Gram-negative sepsis *Metabolic encephalopathy in the setting of sepsis, UTI 61 yo male with complicated past medical history presents with difficulty voiding, urgency with little urine output today. Admit to PCU Patient with a complicated UTI, concern over possible prostatitis blood cultures urine culture obtained. urine/blood culture positive for gram negative bacteria. will stop dapto. treated with cefepime PSA is positive. higher than usual level. Due to concern over prostatitis, will treat with bactrim at discharge. Patient has been intermittently confused during his stay here with lethargy. This has improved on day of ischarge. Bond cathter exchanged due to pain. Pain improved after exchange and patient discharged on a 3 day course of pyridium PRN. (2) Immunocompromised: Due to patient being a renal transplant recipient patient has been on prednisone cyclosporine these medications will be held. Patient had stress dose of prednisone on day of admission. will hold cyclosporine and mycophenolate at discharge until infection cleared. will defer to transplant team as to wehn this should be resumed. (3) Severe sepsis: as above. (4) Elevated PSA: concern over poratstitis, will consult urology. (5) CKD (chronic kidney disease) stage 4, GFR 15-29 ml/min: Patient is having LORENZO, will place IVF. will monitor creatinine appears at baseline, will monitor (6) Sarcoidosis: Patient on corticosteoirds on admission, (7) BPH (benign prostatic hyperplasia): will add finasteride f/u with urology (8) History of renal transplant: as above. (9) Dyslipidemia: continue home meds Total Time Total Time Spent Total Time Spent (In Minutes): 32 Discharge Plan Discharge Items Patient Disposition: Home - Self-Care Reason For Visit: SEPSIS Discharge Diagnosis: sepsis Activity: Resume your previous activity Non-emergency contact: Primary Care Provider Call non-emergency contact if: you have any medication questions Follow-up/Referrals: ProVinicius MD [Primary Care Provider] - (has PCP appt already scheduled ) Diet: Heart Healthy Addtl Attending Provider Instructions: Recommend transition to appropriate PO antibiotics upon discharge x 14 days. - Can consider extension of antibiotics in follow-up pending his clinical course. followup with PCP in 1 week f/u Urology with 2 weeks Pending Studies at Discharge: No Stand-Alone Forms: My [facility] [employer], Smoking Cessation Medications and DC Order Prescriptions: New sulfamethoxazole-trimethoprim [Bactrim DS] 800-160 mg Tablet 1 tab PO BID Qty: 24 0RF finasteride [Proscar] 5 mg Tablet 5 mg PO QAM Qty: 30 0RF phenazopyridine [Pyridium] 100 mg tablet 100 mg PO Q8H PRN (Reason: urinary burning) Qty: 6 0RF Continued omeprazole 40 mg capsule,delayed release(DR/EC) 40 mg PO QAM Qty: 90 3RF febuxostat [Uloric] 80 mg tablet 80 mg PO QAM Qty: 90 0RF tamsulosin [Flomax] 0.4 mg capsule 0.4 mg PO HS docusate sodium [Colace] 100 mg capsule 100 mg PO BID PRN (Reason: Constipation) multivitamin [Daily Multi-Vitamin] tablet 1 tab PO QAM cholecalciferol (vitamin D3) 1,000 unit capsule 1,000 units PO QAM prednisone 5 mg tablet 5 mg PO QAM gabapentin [Neurontin] 300 mg capsule 600 mg PO BID Rx Instructions: TAKE TWO CAPSULES EVERY MORNING AND AFTERNOON sildenafil (pulm.hypertension) 20 mg tablet 20 mg PO TID Qty: 10 6RF Rx Instructions: Take 1 hour before planned stimulation on an empty stomach. Can take up to 5 tabs (100 mg) at 1 time. duloxetine 60 mg capsule,delayed release(DR/EC) 60 mg PO QAM Qty: 90 3RF magnesium oxide 400 mg magnesium capsule 800 mg PO .HOLD Hold Instructions: Home Medication placed on hold at Doctor's office ferrous sulfate [iron] 325 mg (65 mg iron) Tablet 325 mg PO BID acetaminophen [Tylenol Extra Strength] 500 mg Tablet 1,000 mg PO QID PRN (Reason: Pain) gabapentin 300 mg Capsule 900 mg PO HS furosemide [Lasix] 40 mg tablet 60 mg PO QAM PRN (Reason: Edema) Discontinued losartan 50 mg tablet 50 mg PO DAILY Qty: 90 3RF cyclosporine modified 100 mg capsule 100 mg PO BID Qty: 180 3RF mycophenolate mofetil [CellCept] 250 mg capsule 1,000 mg PO BID cyclosporine modified 100 mg Capsule 100 mg PO BID propranolol 10 mg tablet 10 mg PO .HOLD No Action mycophenolate mofetil [CellCept] 250 mg capsule 1,000 mg PO BID Qty: 180 3RF cyclosporine modified 100 mg capsule 100 mg PO BID Qty: 180 3RF Discharge Orders: Discharge Order (Routine); Ordered 08/26/22 Ordered By: Pa Potter Admission Data Admit Date/Time: 08/23/22 09:31 Attending Provider: Pa Potter Admit Provider: Pa Potter Primary Care Provider: Vinicius Ng Other Providers: Pa Potter ; Saleem De La Vega ; Rahul De La Fuente ; Manuel Lang ; Olamide Wren ; Saul Linton ; Griselda Luna ; Mechelle Hagen ; Jay De La Vega ; Micheal Young ; Kristy Thorpe ; Mark Burns ; Karthik Neff ; Caro Duarte Other Interventions: Discharge Summary Assessment (RN) Last Done: 08/26/22 19:11 Coding Level of Care Code 52775 INP/OBS DISCH >30 MIN Diagnoses Sepsis A41.9 Sepsis acute organ dysfunction status: without acute organ dysfunction Sepsis type: sepsis due to unspecified organism Immunocompromised D84.9 Severe sepsis A41.9; R65.20 Elevated PSA R97.20 CKD (chronic kidney disease) stage 4, GFR 15-29 ml/min N18.4 Sarcoidosis D86.9 BPH (benign prostatic hyperplasia) N40.1; R39.11 Lower urinary tract symptom presence: symptoms present Lower urinary tract symptom detail: urinary hesitancy History of renal transplant Z94.0 Dyslipidemia E78.5
== END 2022-08-26 20:52 | disposition home or self-care (01) | DRG 871 ==
LOC: ED 06:38 → EDINP 09:31 → 2S 18:09

== ENCOUNTER 2022-10-15 08:02 | Inpatient (IN) ==
[2022-10-15] MEDS ORDERED: SODIUM CHLORIDE 0.9% 1000ML 1,000 ML IV STA (08:13)
[2022-10-15] MEDS ORDERED: CEFEPIME 2,000 MG/20 ML VIAL IV STA (08:13)
--- NOTE | 2022-10-15 08:26 | Emergency Department Note ---
Impression & Plan UTI (urinary tract infection), Sepsis ED Provider Note INFORMANT: Patient ED PROVIDER(S): Srikanth Plunkett DO CHIEF COMPLAINT: Urinary tract infection symptoms PLAN: Disposition: Admission Outpatient prescription management: none Discussion with: I spoke with the hospitalist, who will see the patient for admission/observation and further evaluation and consultation. MEDICAL DECISION MAKING: This is a 62-year-old renal transplant patient who presents to the ED with a chief complaint of urinary symptoms. He has had previous urinary tract infections related to Citrobacter. The patient states that he has been septic from this. He is on immuno modulating medications for his renal transplant. The patient reports that he feels awful today. He feels sluggish. For the past couple of days he has had fatigue and tiredness. He developed some urinary frequency and urgency yesterday as well as a fever of 101.2. The patient presents today feeling much worse. His temperature this morning was 37.7. Heart rate is 108. His exam does not reveal any specific tenderness to the abdomen. No CVA tenderness. Lungs are clear. His heart is regular rate and rhythm. CBC did not show leukocytosis or anemia. Urinalysis is positive for infection. Lactic acid was negative. EKG shows a sinus rhythm at a rate of 96. BUN is 59 creatinine is 2.89 this appears to be baseline. The patient was treated with IV fluids 2 L normal saline was administered. His vital signs appear to be stable with regard to this. Tachycardia did improve. I do not feel 30 cc/kg be appropriate as he is 133 kg. He was given IV cefepime empirically for his UTI/early sepsis. He will be seen by the hospitalist for further evaluation and care Triage Nursing notes reviewed. Vital Signs: reviewed Prior /Outside records reviewed: none Differential diagnosis: Urinary tract infection, pyelonephritis, sepsis, other. Diagnostics, as interpreted by me: 12 lead ECG: Sinus rhythm rate of 96. No ST elevation. No PVCs. Normal QTc. Cardiac Monitoring ordered: Sinus rhythm in the 90s. Medical decision rules: none Imaging studies: Chest x-ray: No pneumonia. Procedures: none. Critical care: none. HPI: See MDM above. PAST MEDICAL HISTORY: See Below PAST SURGICAL HISTORY: See Below SOCIAL HISTORY: See Below HOME MEDICATIONS:See Below ALLERGIES: See Below VITALS: See Below PHYSICAL EXAMINATION: See MDM for positive findings otherwise unremarkable. CONSTITUTIONAL/VITAL SIGNS: Reviewed GENERAL:done as appropriate INTEGUMENTARY: done as appropriate HEAD: done as appropriate EYES: done as appropriate RESPIRATORY: done as appropriate CARDIOVASCULAR:done as appropriate GI/ABDOMEN:done as appropriate EXTREMITIES: done as appropriate NEUROLOGICAL: done as appropriate PSYCHIATRIC:done as appropriate MUSCULOSKELETAL:done as appropriate TRIAGE NURSING DOCUMENTATION REVIEWED. 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 Gout History of basal cell carcinoma Hyperphosphatemia Hypertension Knee contusion Metabolic acidosis Nephrolithiasis Rectus sheath hematoma Renal transplant recipient Retroperitoneal hematoma Sarcoidosis Sepsis Small bowel obstruction Supratherapeutic INR Symptomatic anemia Umbilical hernia UTI (urinary tract infection) Venous insufficiency Venous stasis dermatitis Surgical History H/O colonoscopy History of cardiac cath History of melanoma excision History of tonsillectomy History of tooth extraction Kidney transplanted Family History Mother Stroke Heart disease Grandmother Cancer Lung disease Denies family history of Ovarian cancer Prostate cancer Colorectal cancer Social History Smoking Status: Never smoker Second Hand Exposure: No; Do You Dip or Chew Tobacco: No; Hx Alcohol Use: No Hx Substance Use: No Preferred Language: Taiwanese Communication Ability: Effective Visual Impairment: No Limitations Sales Review Clerk Required: No Beliefs That Will Affect Care: None marital status: Current Living Situation: Spouse Current Living Situation Comment: living with . current occupational status: employed current occupation: [employer] How many Children do You have: 1 Feels Safe at Home: Yes caffeine: Yes Dental Care, Regularly: Yes Seatbelt Use: always Sunscreen Use: Yes Assistive Devices: None Allergies Allergies Allergy/AdvReac Type Severity Reaction Status Date / Time allopurinol Allergy Unknown Rash Verified 09/07/22 15:58 hydromorphone [From Dilaudid] AdvReac Severe confusion Verified 09/07/22 15:58 Home Meds Home Medications Medication Instructions Recorded Confirmed cholecalciferol (vitamin D3) 25 1,000 units PO QAM 04/24/19 09/11/22 mcg (1,000 unit) capsule docusate sodium 100 mg capsule 100 mg PO BID PRN Constipation 04/24/19 09/11/22 (Colace) multivitamin (Daily Multi-Vitamin 1 tab PO QAM 04/24/19 09/11/22 tablet) tamsulosin 0.4 mg capsule (Flomax) 0.4 mg PO HS 04/24/19 09/11/22 prednisone 5 mg tablet 5 mg PO QAM 05/29/19 09/11/22 magnesium oxide 800 mg PO .HOLD 06/16/21 09/11/22 ferrous sulfate 325 mg (65 mg 325 mg PO BID 08/05/21 09/11/22 iron) tablet (iron) gabapentin 300 mg capsule 600 mg PO BID 08/22/21 09/11/22 (Neurontin) acetaminophen 500 mg tablet 1,000 mg PO QID PRN Pain 08/24/21 09/11/22 (Tylenol Extra Strength) gabapentin 300 mg capsule 900 mg PO HS 11/17/21 09/11/22 furosemide 40 mg tablet (Lasix) 60 mg PO QAM PRN Edema 12/25/21 09/11/22 Previous Rx's Medication Instructions Recorded duloxetine 60 mg capsule,delayed 60 mg PO QAM #90 caps 11/13/21 release omeprazole 40 mg capsule,delayed 40 mg PO QAM #90 caps 04/27/22 release sildenafil (pulm.hypertension) 20 20 mg PO TID #10 tabs 06/10/22 mg tablet finasteride 5 mg tablet (Proscar) 5 mg PO QAM #30 tabs 08/26/22 cyclosporine modified 100 mg 100 mg PO BID #180 caps 08/27/22 capsule mycophenolate mofetil 250 mg 1,000 mg PO BID #180 caps 08/27/22 capsule (CellCept) febuxostat 80 mg tablet (Uloric) 80 mg PO QAM #90 tabs 09/01/22 evolocumab 420 mg/3.5 mL 420 mg (3.5 mL) subcut .ONCE 09/24/22 subcutaneous wearable injector MONTHLY #10.5 mL (Repatha Pushtronex) vibegron 75 mg tablet (Gemtesa) 75 mg PO DAILY #90 tabs 10/05/22 Results & Data (ED) Vital Signs Vital Signs - 24 hr 10/15/22 08:06 10/15/22 09:00 10/15/22 09:09 Temperature 37.7 C H Temperature Source Temporal Artery Scan Pulse Rate 108 H 93 H Pulse Rate [Apical] 94 H Pulse Rate from SpO2 Sensor Pulse Rhythm Regular Regular Pulse Rhythm [Apical] Regular Pulse Strength Normal Respiratory Rate 22 22 22 Respiratory Effort / Characteristics Non-Labored Spontaneous Non-Labored Respiratory Depth Normal Normal Respiratory Pattern Regular Regular Blood Pressure 163/81 H Blood Pressure [Right Arm] 148/82 H Blood Pressure Mean 108 Blood Pressure Mean [Right Arm] 104 Blood Pressure Position Sitting Pulse Oximetry 99 95 97 Oxygen Delivery Method Room Air Room Air Room Air Sepsis Recent Fever Within 48 Hours Yes Sepsis New/Unexplained Change in Mental Status No Sepsis Action Taken by Nursing Physician Notified 10/15/22 09:25 10/15/22 09:30 10/15/22 10:00 Temperature Temperature Source Pulse Rate 92 H 90 88 Pulse Rate [Apical] Pulse Rate from SpO2 Sensor 91 H 88 Pulse Rhythm Pulse Rhythm [Apical] Pulse Strength Respiratory Rate 18 23 Respiratory Effort / Characteristics Respiratory Depth Respiratory Pattern Blood Pressure 146/85 H 164/88 H Blood Pressure [Right Arm] Blood Pressure Mean 105 113 Blood Pressure Mean [Right Arm] Blood Pressure Position Pulse Oximetry 97 97 Oxygen Delivery Method Sepsis Recent Fever Within 48 Hours Sepsis New/Unexplained Change in Mental Status Sepsis Action Taken by Nursing Laboratory Data 10/15/22 08:38 10/15/22 08:38 Lab Results 10/15/22 10/15/22 10/15/22 Range/Units 08:38 08:38 08:38 WBC 10.49 (4.8-10.8) K/ul RBC 3.60 L (4.70-6.10) M/uL Hgb 11.3 L (14.0-18.0) g/dl Hct 34.7 L (42.0-52.0) % MCV 96.4 (80.0-100.0) fL MCH 31.4 (25.0-34.0) pg MCHC 32.6 (32.0-36.0) g/dL RDW Std Deviation 45.8 (36.4-46.3) fL RDW Coeff of Theresa 13.1 (11.5-14.5) % Plt Count 178 (130-400) K/uL MPV 10.7 (9.4-12.4) fL Immature Gran % (Auto) 0.4 % Neut % (Auto) 85.3 % Lymph % (Auto) 2.0 % [place] % (Auto) 10.4 % Eos % (Auto) 1.3 % Baso % (Auto) 0.6 % Neut # (Auto) 8.95 H (1.40-6.50) K/uL Lymph # (Auto) 0.21 L (1.2-3.4) K/uL [place] # (Auto) 1.09 H (0.11-0.59) K/uL Eos # (Auto) 0.14 (0-0.50) K/uL Baso # (Auto) 0.06 (0-0.2) K/uL Immature Gran # (Auto) 0.04 (0.01-0.20) K/uL Sodium 137 (136-145) mmol/L Potassium 4.6 (3.5-5.1) mmol/L Chloride 103 (98-107) mmol/L Carbon Dioxide 23 (21-32) mmol/L Anion Gap 11 (3-11) BUN 59 H (6-23) mg/dl Creatinine 2.89 H (0.6-1.4) mg/dl Est Cr Clr Drug Dosing 37.6 ml/min Est GFR ( Amer) 26.0 ml/min Est GFR (Non-Af Amer) 22.4 ml/min BUN/Creatinine Ratio 20.4 H (10-20) Glucose 98 (70-99(Fasting)) mg/dl Lactate (0.4-2.0) mmol/L Calcium 9.9 (8.6-10.3) mg/dl Total Bilirubin 1.3 H (0.2-1.0) mg/dl AST 11 L (13-39) U/L ALT 13 (7-52) U/L Alkaline Phosphatase 111 H (34-104) U/L Total Protein 6.9 (6.0-8.3) gm/dl Albumin 4.2 (3.4-5.0) gm/dl Globulin 2.7 (2.5-4.0) gm/dl Albumin/Globulin Ratio 1.6 (0.9-2) Procalcitonin 0.56 H (0-0.5) ng/ml Urine Color Urine Appearance (Clear) Urine pH (4.5-7.5) Ur Specific [place] (1.000-1.030) Urine Protein (Negative) Urine Glucose (UA) (Negative) Urine Ketones (Negative) Urine Blood (Negative) Urine Nitrite (Negative) Urine Bilirubin (Negative) Urine Urobilinogen (Negative) Ur Leukocyte Esterase (Negative) Urine WBC (Auto) (0-5) /hpf Urine RBC (Auto) (0-4) /hpf U Hyaline Cast (Auto) (0-5) /lpf U Epithel Cells (Auto) (0-5) /lpf Urine Bacteria (Auto) (Negative) SARS-CoV-2, RNA, NAAT (NEGATIVE) 10/15/22 10/15/22 10/15/22 Range/Units 08:38 08:38 09:19 WBC (4.8-10.8) K/ul RBC (4.70-6.10) M/uL Hgb (14.0-18.0) g/dl Hct (42.0-52.0) % MCV (80.0-100.0) fL MCH (25.0-34.0) pg MCHC (32.0-36.0) g/dL RDW Std Deviation (36.4-46.3) fL RDW Coeff of Theresa (11.5-14.5) % Plt Count (130-400) K/uL MPV (9.4-12.4) fL Immature Gran % (Auto) % Neut % (Auto) % Lymph % (Auto) % [place] % (Auto) % Eos % (Auto) % Baso % (Auto) % Neut # (Auto) (1.40-6.50) K/uL Lymph # (Auto) (1.2-3.4) K/uL [place] # (Auto) (0.11-0.59) K/uL Eos # (Auto) (0-0.50) K/uL Baso # (Auto) (0-0.2) K/uL Immature Gran # (Auto) (0.01-0.20) K/uL Sodium (136-145) mmol/L Potassium (3.5-5.1) mmol/L Chloride (98-107) mmol/L Carbon Dioxide (21-32) mmol/L Anion Gap (3-11) BUN (6-23) mg/dl Creatinine (0.6-1.4) mg/dl Est Cr Clr Drug Dosing ml/min Est GFR ( Amer) ml/min Est GFR (Non-Af Amer) ml/min BUN/Creatinine Ratio (10-20) Glucose (70-99(Fasting)) mg/dl Lactate 1.1 (0.4-2.0) mmol/L Calcium (8.6-10.3) mg/dl Total Bilirubin (0.2-1.0) mg/dl AST (13-39) U/L ALT (7-52) U/L Alkaline Phosphatase (34-104) U/L Total Protein (6.0-8.3) gm/dl Albumin (3.4-5.0) gm/dl Globulin (2.5-4.0) gm/dl Albumin/Globulin Ratio (0.9-2) Procalcitonin (0-0.5) ng/ml Urine Color Yellow Urine Appearance Cloudy A (Clear) Urine pH 5.0 (4.5-7.5) Ur Specific [place] 1.016 (1.000-1.030) Urine Protein 2+ H (Negative) Urine Glucose (UA) Negative (Negative) Urine Ketones Negative (Negative) Urine Blood 1+ H (Negative) Urine Nitrite Negative (Negative) Urine Bilirubin Negative (Negative) Urine Urobilinogen Negative (Negative) Ur Leukocyte Esterase 2+ H (Negative) Urine WBC (Auto) >30 H (0-5) /hpf Urine RBC (Auto) 0-4 (0-4) /hpf U Hyaline Cast (Auto) 1-5 (0-5) /lpf U Epithel Cells (Auto) 0-5 (0-5) /lpf Urine Bacteria (Auto) 2+ H (Negative) SARS-CoV-2, RNA, NAAT NEGATIVE (NEGATIVE) Administered Medications Discontinued Medications Sodium Chloride (Nss 1000ml) 1,000 mls @ 999 mls/hr IV .Q1H1M STA Stop: 10/15/22 09:13 Last Infusion: 10/15/22 10:02 Dose: 0 mls/hr Documented By: Admin: 10/15/22 08:59 Dose: 999 mls/hr Documented By: NAHUN Cefepime HCl (Maxipime) 2,000 mg in 20 mls @ 5 mls/min IV NOW STA; Protocol Stop: 10/15/22 08:16 Last Admin: 10/15/22 08:59 Dose: 5 mls/min Documented By: NAHUN Sodium Chloride (Nss 1000ml) 1,000 mls @ 999 mls/hr IV .Q1H1M ONE Stop: 10/15/22 10:05 Last Admin: 10/15/22 09:21 Dose: 999 mls/hr Documented By: NAHUN Discharge Plan Visit Data Chief Complaint: Urinary Symptoms Stated Complaint: FREQUENT URINATION, URINARY SYMPTOMS, FEVER ED Provider: Srikanth Plunkett Discharge Problem: UTI (urinary tract infection), Sepsis Forms Stand Alone Forms: [employer] [facility] [employer] Prescriptions Prescriptions: No Action omeprazole 40 mg capsule,delayed release(DR/EC) 40 mg PO QAM Qty: 90 3RF mycophenolate mofetil [CellCept] 250 mg capsule 1,000 mg PO BID Qty: 180 3RF cyclosporine modified 100 mg capsule 100 mg PO BID Qty: 180 3RF febuxostat [Uloric] 80 mg tablet 80 mg PO QAM Qty: 90 0RF Repatha Pushtronex 420 mg/3.5 mL wearable injector 420 mg subcut .ONCE MONTHLY Qty: 10.5 1RF Gemtesa 75 mg tablet 75 mg PO DAILY Qty: 90 3RF tamsulosin [Flomax] 0.4 mg capsule 0.4 mg PO HS docusate sodium [Colace] 100 mg capsule 100 mg PO BID PRN (Reason: Constipation) multivitamin [Daily Multi-Vitamin] tablet 1 tab PO QAM cholecalciferol (vitamin D3) 1,000 unit capsule 1,000 units PO QAM prednisone 5 mg tablet 5 mg PO QAM gabapentin [Neurontin] 300 mg capsule 600 mg PO BID Rx Instructions: TAKE TWO CAPSULES EVERY MORNING AND AFTERNOON sildenafil (pulm.hypertension) 20 mg tablet 20 mg PO TID Qty: 10 6RF Rx Instructions: Take 1 hour before planned stimulation on an empty stomach. Can take up to 5 tabs (100 mg) at 1 time. duloxetine 60 mg capsule,delayed release(DR/EC) 60 mg PO QAM Qty: 90 3RF magnesium oxide 400 mg magnesium capsule 800 mg PO .HOLD Hold Instructions: Home Medication placed on hold at Doctor's office ferrous sulfate [iron] 325 mg (65 mg iron) Tablet 325 mg PO BID acetaminophen [Tylenol Extra Strength] 500 mg Tablet 1,000 mg PO QID PRN (Reason: Pain) gabapentin 300 mg Capsule 900 mg PO HS furosemide [Lasix] 40 mg tablet 60 mg PO QAM PRN (Reason: Edema) finasteride [Proscar] 5 mg Tablet 5 mg PO QAM Qty: 30 0RF Hold Instructions: Home Medication placed on hold at Doctor's office Referrals Referrals: Vinicius Ng MD [Primary Care Provider] -
[2022-10-15 09:03] LABS: Basophils # (auto) 0.06 K/uL (0-0.2); Basophils % (auto) 0.6 %; Eosinophils # (auto) 0.14 K/uL (0-0.50); Eosinophils % (auto) 1.3 %; Hematocrit (blood only) 34.7 % (42.0-52.0); Hemoglobin 11.3 g/dl (14.0-18.0); Immature Granulocytes # (auto) 0.04 K/uL (0.01-0.20); Immature Granulocytes % (auto) 0.4 %; Lymphocytes # (auto) 0.21 K/uL (1.2-3.4); Mean Corpuscular Hemoglobin 31.4 pg (25.0-34.0); Mean Corpuscular Hgb Conc 32.6 g/dL (32.0-36.0); Mean Corpuscular Volume 96.4 fL (80.0-100.0); Mean Platelet Volume 10.7 fL (9.4-12.4); Monocytes # (auto) 1.09 K/uL (0.11-0.59); Monocytes % (auto) 10.4 %; Neutrophils # (auto) 8.95 K/uL (1.40-6.50); Neutrophils % (auto) 85.3 %; Platelet Count 178 K/uL (130-400); RDW Coefficient of Variation 13.1 % (11.5-14.5); RDW Standard Deviation 45.8 fL (36.4-46.3); White Blood Count 10.49 K/ul (4.8-10.8)
[2022-10-15] MEDS ORDERED: SODIUM CHLORIDE 0.9% 1000ML 1,000 ML IV ONE (09:05)
[2022-10-15 09:06] LABS: Appearance Urine Cloudy (Clear); Bacteria Urine Automated 2+ (Negative); Bilirubin Urine Negative (Negative); Blood Urine 1+ (Negative); Color Urine Yellow; Epithelial Cell Urine Auto 0-5 /lpf (0-5); Glucose Urine UA Negative (Negative); Ketones Urine Negative (Negative); Leukocyte Esterase Urine 2+ (Negative); Nitrite Urine Negative (Negative); Protein Urine 2+ (Negative); RBC Urine Automated 0-4 /hpf (0-4); Specific Gravity Urine 1.016 (1.000-1.030); Urobilinogen Urine Negative (Negative); WBC Urine Automated >30 /hpf (0-5)
[2022-10-15 09:18] LABS: Albumin Globulin Ratio 1.6 (0.9-2); Albumin Level 4.2 gm/dl (3.4-5.0); BUN Creatinine Ratio 20.4 (10-20); Bilirubin,Total 1.3 mg/dl (0.2-1.0); Calcium 9.9 mg/dl (8.6-10.3); Creatinine Clr Calc Pharmacy 37.6 ml/min; Est GFR (Non-African American) 22.4 ml/min; Globulin 2.7 gm/dl (2.5-4.0); Potassium 4.6 mmol/L (3.5-5.1); Total Protein 6.9 gm/dl (6.0-8.3)
--- NOTE | 2022-10-15 10:07 | History & Physical Report ---
Date of Service October 15, 2022 Assessment & Plan (1) Sepsis: Plan: -Admit to med/tele -Currently stable and non-toxic appearing -Patient met SIRS criteria on ED arrival with a HR of 108 and respirations of 23 -He has a clear source of infection with a likely UTI and procal is significantly elevated at 12 -He has no signs of end organ damage so he does not meet criteria for severe sepsis -Lactate WNL -S/P 2L NSS and a dose of Cefepime in the ED -Will continue with q12h IV cefepime for now and give an additional 1L LR now to complete his sepsis bolus -Blood and urine cultures obtained in the ED, follow and tailor abx as necessary -With his recent admission for urosepsis and possible prostatitis, will touch base with Urology regarding the need for extended antibiotics on discharge -The patient completed an extended course of Bactrim after last admission, may want to avoid another long course of Bactrim due to the presence of one transplanted kidney -BL SCD's and SQ heparin q12h for DVT PPX -Heart healthy diet -AM CBC, CMP, Mag (2) UTI (urinary tract infection): Plan: -UA today concerning for infection -Last urine and blood cultures grew pansensitive Citrobacter koser -Will continue with cefepime for now due to his immunocompromised state (3) Urinary retention: Plan: -Has been a chronic issue, follows with [facility] [place] -Last PVR by urology was improved per their clinic note -Will continue flomax, proscar, and vibegron -PRN bladder scans as needed -Monitor intake and output q6h (4) History of kidney transplant: Plan: -Currently on 5 mg prednisone, cyclosporine, and cellcept -Will hold all 3 for now, will hold a stress dose of steroids at this time as he appears very stable today -Will obtain cyclosporine level on admission as the patient reports they have been low recently -Would consider restarting immunosuppressants tomorrow if he is stable (5) Anemia: Plan: -Stable today -Continue oral iron (6) CKD (chronic kidney disease) stage 4, GFR 15-29 ml/min: Plan: -Renal function stable today -Continue to monitor daily (7) Hypertension: Plan: -Stable -Continue to monitor, not on medication regimen at this time (8) Obstructive sleep apnea: Plan: -HS CPAP ordered (9) GERD (gastroesophageal reflux disease): Plan: -Continue omeprazole Plan The patient was seen with and discussed with Dr. Rendon at the time of the admission History of Present Illness Chief Complaint: Urinary symptoms Primary Care Provider: Vinicius Ng MD Kirby is a 62 year old male with a PMH significant for ESRD S/P renal transplant (on prednisone, cyclosporine, and mycophenolate), recurrent UTI's causing sepsis, sarcoidosis, previous spontaneous BL retroperitoneal hematomas, HTN, FARNAZ, and restrictive lung disease who presented to the [facility] ED on 10/15/22 with recurrent urinary symptoms and concern for UTI. In the ED the patient was found to be tachycardic at 108, otherwise vitals were stable. Labs were significant for a stable cr of 2.89, total bili of 1.3, procal of 0.56, UA concerning for infection, and covid 19 negative. Chest xray was read as "1. Cardiomegaly without pulmonary edema. 2. Reticular nodular opacities are redemonstrated along with hilar lymphadenopathy suggestive of a granulomatous process such as pulmonary sarcoidosis. Please refer to the chest CT dated 09/02/2022 for additional details.". Prior to admission the patient was given a dose of Cefepime and 2L NSS. At the time of the exam the patient was lying in bed in no acute distress. He states that he started to develop generalized weakness/fatigue approximately 48 hours ago. He initially attributed his symptoms to his work, but they did not improve and actually progressed after a good night's sleep two nights ago. He also started to develop dysuria and increased urinary frequency, leading him to come to the ED. He currently feels well and is happy he came in earlier than last admission as he is much more stable at this time. He did not take any of his am medications today, but has been taking his immunosuppressants with last doses yesterday. He completed the course of PO bactrim from last discharge. He has been on flomax, proscar, and Vibegron at the recommendation of Dr. Neff but is unsure how well they are working at this time. He denies recent chest pain, SOB, cough, abd pain, nausea, vomiting, diarrhea, hematuria, bloody BM's, melena, and recent trauma. He dose feel as though his LE's have been more swollen this week and has been taking 20 mg PO lasix daily for this. He is still making urine and has not noticed a decrease in production over the past 72 hours. The patient was recently admitted to [facility] from 08/23-08/27 due to urosepsis and gram negative bacteremia. Urine and blood cultures grew Citrobacter koseri. He was initially started on Daptomycin and Cefepime but Daptomycin was stopped once cultures and sensitivities were obtained. A PSA was obtained on admission due to concern for prostatitis with recent prostate biopsy and was elevated at 41. Due to concerns for possible Prostatitis the patient was discharged on a 14 day course of Bactrim as recommended by Urology during their consultation. The patient has followed up with Urology multiple times since discharge and his PSA had fallen back to baseline after his course of Bactrim had been finished. Please refer to Dr. Rendon's attestation for any changes to the treatment plan Allergies Allergy/AdvReac Type Severity Reaction Status Date / Time allopurinol Allergy Unknown Rash Verified 09/07/22 15:58 hydromorphone [From Dilaudid] AdvReac Severe confusion Verified 09/07/22 15:58 Home Medications Medication Instructions Recorded Confirmed Type cholecalciferol (vitamin D3) 25 1,000 units PO QAM 04/24/19 10/15/22 History mcg (1,000 unit) capsule docusate sodium 100 mg capsule 100 mg PO BID PRN Constipation 04/24/19 10/15/22 History (Colace) multivitamin (Daily Multi-Vitamin 1 tab PO QAM 04/24/19 10/15/22 History tablet) tamsulosin 0.4 mg capsule (Flomax) 0.4 mg PO HS 04/24/19 10/15/22 History prednisone 5 mg tablet 5 mg PO QAM 05/29/19 10/15/22 History magnesium oxide 800 mg PO .HOLD 06/16/21 10/15/22 History ferrous sulfate 325 mg (65 mg 325 mg PO BID 08/05/21 10/15/22 History iron) tablet (iron) acetaminophen 500 mg tablet 1,000 mg PO QID PRN Pain 08/24/21 10/15/22 History (Tylenol Extra Strength) duloxetine 60 mg capsule,delayed 60 mg PO QAM #90 caps 06/16/22 05/18/23 Rx release gabapentin 300 mg capsule 600 mg PO HS 11/17/21 10/15/22 History furosemide 40 mg tablet (Lasix) 20 mg PO QAM PRN Edema 12/25/21 10/15/22 History omeprazole 40 mg capsule,delayed 40 mg PO QAM #90 caps 04/27/22 10/15/22 Rx release sildenafil (pulm.hypertension) 20 20 mg PO TID #10 tabs 06/10/22 10/15/22 Rx mg tablet finasteride 5 mg tablet (Proscar) 5 mg PO QAM #30 tabs 08/26/22 10/15/22 Rx cyclosporine modified 100 mg 100 mg PO BID #180 caps 08/27/22 10/15/22 Rx capsule mycophenolate mofetil 250 mg 1,000 mg PO BID #180 caps 08/27/22 10/15/22 Rx capsule (CellCept) febuxostat 80 mg tablet (Uloric) 80 mg PO QAM #90 tabs 09/01/22 10/15/22 Rx evolocumab 420 mg/3.5 mL 420 mg (3.5 mL) subcut .ONCE 09/24/22 10/15/22 Rx subcutaneous wearable injector MONTHLY #10.5 mL (Repatha Pushtronex) vibegron 75 mg tablet (Gemtesa) 75 mg PO DAILY #90 tabs 10/05/22 10/15/22 Rx 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 Gout History of basal cell carcinoma Hyperphosphatemia Hypertension Knee contusion Metabolic acidosis Nephrolithiasis Rectus sheath hematoma Renal transplant recipient Retroperitoneal hematoma Sarcoidosis Sepsis Small bowel obstruction Supratherapeutic INR Symptomatic anemia Umbilical hernia UTI (urinary tract infection) Venous insufficiency Venous stasis dermatitis Surgical History H/O colonoscopy History of cardiac cath History of melanoma excision History of tonsillectomy History of tooth extraction Kidney transplanted Family History Mother Stroke Heart disease Grandmother Cancer Lung disease Denies family history of Ovarian cancer Prostate cancer Colorectal cancer Social History Smoking Status: Never smoker Second Hand Exposure: No; Do You Dip or Chew Tobacco: No; Hx Alcohol Use: No Hx Substance Use: No Preferred Language: Swedish Communication Ability: Effective Visual Impairment: No Limitations Recruiting Assistant Required: No Beliefs That Will Affect Care: None marital status: Current Living Situation: Spouse Current Living Situation Comment: living with . current occupational status: employed current occupation: [employer] How many Children do You have: 1 Feels Safe at Home: Yes caffeine: Yes Dental Care, Regularly: Yes Seatbelt Use: always Sunscreen Use: Yes Assistive Devices: None Physical Exam Physical Exam: Physical Exam: General: In no acute distress, stated age, well-nourished, good hygiene, non- toxic appearing HEENT: Normocephalic, atraumatic, no scleral icterus, pupils around round, symmetrical, and reactive to light, moist mucus membranes, trachea midline, no thyromegaly Chest/Pulm: No respiratory distress, symmetrical chest expansion, clear breath sounds throughout Cardiac: RRR, no murmurs noted Abdomen: Negative for ascites and bruising, normoactive bowel sounds, soft, non-tender to palpation throughout Musculoskeletal: Symmetrical and without signs of acute trauma, upper and lower extremities with full ROM, no atrophy, spasticity, or flaccidity Extremities: Radial, dorsalis pedis, and posterior tibial pulses are intact and symmetrical, 1+ edema noted in the BL LE's Skin: Patient with chronic LE skin changes which he reports are at baseline Neuro: Alert and oriented to person, place, month, year, and president, no focal defects, CN II-XII tested and intact, , no tremors noted Psych: No acute distress, calm and cooperative during the exam Results & Data Results & Data Vital Signs (Past 12 Hours) Vital Signs Temp Pulse Pulse Resp BP BP Pulse Ox 10/15/22 09:25 92 H 10/15/22 09:09 94 H 22 148/82 H 97 10/15/22 09:00 93 H 22 95 10/15/22 08:06 37.7 C H 108 H 22 163/81 H 99 O2 Del Method 10/15/22 09:25 10/15/22 09:09 Room Air 10/15/22 09:00 Room Air 10/15/22 08:06 Room Air Laboratory Results Abnormal lab results 10/15/22 10/15/22 10/15/22 Range/Units 08:38 08:38 08:38 RBC 3.60 L (4.70-6.10) M/uL Hgb 11.3 L (14.0-18.0) g/dl Hct 34.7 L (42.0-52.0) % Neut # (Auto) 8.95 H (1.40-6.50) K/uL Lymph # (Auto) 0.21 L (1.2-3.4) K/uL Swift # (Auto) 1.09 H (0.11-0.59) K/uL BUN 59 H (6-23) mg/dl Creatinine 2.89 H (0.6-1.4) mg/dl BUN/Creatinine Ratio 20.4 H (10-20) Total Bilirubin 1.3 H (0.2-1.0) mg/dl AST 11 L (13-39) U/L Alkaline Phosphatase 111 H (34-104) U/L Procalcitonin 0.56 H (0-0.5) ng/ml Urine Appearance (Clear) Urine Protein (Negative) Urine Blood (Negative) Ur Leukocyte Esterase (Negative) Urine WBC (Auto) (0-5) /hpf Urine Bacteria (Auto) (Negative) 10/15/22 Range/Units 08:38 RBC (4.70-6.10) M/uL Hgb (14.0-18.0) g/dl Hct (42.0-52.0) % Neut # (Auto) (1.40-6.50) K/uL Lymph # (Auto) (1.2-3.4) K/uL Swift # (Auto) (0.11-0.59) K/uL BUN (6-23) mg/dl Creatinine (0.6-1.4) mg/dl BUN/Creatinine Ratio (10-20) Total Bilirubin (0.2-1.0) mg/dl AST (13-39) U/L Alkaline Phosphatase (34-104) U/L Procalcitonin (0-0.5) ng/ml Urine Appearance Cloudy A (Clear) Urine Protein 2+ H (Negative) Urine Blood 1+ H (Negative) Ur Leukocyte Esterase 2+ H (Negative) Urine WBC (Auto) >30 H (0-5) /hpf Urine Bacteria (Auto) 2+ H (Negative) Diagnostic Findings Chest X-Ray 10/15/22 08:22 XR chest 1V portable HISTORY: 62 years-old Male Sepsis acute sepsis COMPARISON: 09/02/2022 TECHNIQUE: AP view of the chest FINDINGS: Cardiac silhouette is enlarged. Reticular nodular densities are again noted along with bilateral hilar lymphadenopathy. No pneumothorax, large pleural effusion or lobar airspace consolidation. Degenerative changes of the shoulders and spine. IMPRESSION: 1. Cardiomegaly without pulmonary edema. 2. Reticular nodular opacities are redemonstrated along with hilar lymphadenopathy suggestive of a granulomatous process such as pulmonary sarcoidosis. Please refer to the chest CT dated 09/02/2022 for additional details. ACT 112: Negative or not required by law. The above report was generated using voice recognition software. It may contain grammatical, syntax or spelling errors. Electronically signed by: Facundo Miller M.D. 10/15/2022 10:09 AM ECG Additional Comments: Normal sinus rhythm Left axis deviation Non-specific intra-ventricular conduction block Minimal voltage criteria for LVH, may be normal variant ( R in aVL ) Abnormal ECG When compared with ECG of 23-AUG-2022 07:15, Criteria for Anterior infarct are no longer Present Code Status & VTE Plan Code Status Full code VTE Prophylaxis Plan VTE Prophylaxis will be ordered: Yes Supervising Physician Co-Signing Physician Notes Kirby is a 62-year-old male with a past medical history of ESRD s/p renal transplant 2020 had significant proteinuria and was found to have focal segmental glomerulosclerosis. He has had multiple admissions for UTIs, and several admissions for temporarily distinct retroperitoneal hematomas of unclear cause but suspected possibly due to post transplant site bleeding last hospital admission was for gram-negative sepsis with evidence of prostatitis, patient was treated with cefepime and converted to Bactrim and discharged to follow-up to urology and nephrology. PSA on urology follow-up was thought to be elevated due to UTI, did downtrend to near normal levels and was recommended to take Flomax and finasteride and to defer cystoscopy for period of time due to recent infection. He presents to the emergency department feeling fatigued and with dysuria, polyuria of around 2 days similar to prior UTIs and came in for evaluation suspecting a UTI. At time of bedside assessment he reports he has no fever, chills, sweats, abdominal pain. Has had urinary symptoms as described. Tmax 37.7, borderline febrile. Initially tachypneic, now breathing normally with no shortness of breath or chest pain. No lightheadedness/dizziness. Lungs are clear, heart rate is regular, skin is warm and dry. No abdominal tenderness to palpation, abdomen is softly distended. Recurrent complicated UTI, recent history of prostatitis with Citrobacter positive culture No leukocytosis Borderline febrile, no hypotension/tachycardia Patient is immunosuppressed due to renal transplant medications Creatinine baseline fluctuates around 2.83.2, admitting creatinine is 2.89 Lactate 1.1 Procalcitonin elevated 0.56 UA infected appearing with 2+ bacteria, no epis, 2+ leukocyte esterase, blood, greater than 30 WBC Patient recently treated for Citrobacter UTI with suspected prostate involvement Admitted on cefepime, continue Blood cultures pending - Given suspected prostate involvement/prostatitis, recurrent infection patient will likely need an extended course of antibiotics of at least 6 weeks which may need to be extended even up to 8wks in the setting of immunosuppression. Patient did have an elevated PSA previously, however in the setting of prostatitis poorly reflective of baseline level and normal PVR would not roving changer based on this at this time other than continuing to follow PVR. While patient has had recurrent UTIs and had Gemtesa added and followed for clinical benefit, has not shown signs of obstructive uropathy and recurrence may be due to incomplete clearance of bacteria from the prostate. patient reports that he has not had any difficulties tolerating fluoroquinolones in the past to his knowledge, and has no further quinolone allergy and his QT is not prolonged on last EKG. This is a reasonable option for outpatient therapy; however is also at increased risk of bleeding complications due to his prior history of multiple retroperitoneal hematomas with unclear origin although he has no bleeding since his last admission for this last year and uptrending hemoglobin. He has had a past E. coli with fluoroquinolone infection, current urine culture is pending and last culture was with a cynthia quinolone sensitive to Citrobacter. Patient would greatly prefer an oral antibiotic if possible even if there is a slightly increased risk of reading if it is all reasonable. Patient has been on Bactrim previously, but this was dose reduced and with additional risk due to transplant status and poor baseline renal function. Third option would be cefepime/Rocephin IV daily with a ultrasound-guided IV line temporarily, patient has given himself infusions at home and would be okay with this although greatly prefer any oral option until the end of the month for personal reasons. We will continue to follow clinical progression and await culture sensitivities to help narrow appropriate choices. Patient is hemodynamically stable at bedside History of renal transplant Creatinine is near baseline Cyclosporine levels have been slightly low recently, would avoid repeat extended hold of rejection meds due to progressive risk of rejection, in the setting of acute UTI with elevated Pro-Clement and borderline SIRS on admission reasonable to hold for 1 day then resume. Cyclosporine levels pending. Potassium is normal, patient appears near euvolemic Follow ins and outs Daily Sleep disordered breathing Continue CPAP nightly, medically necessary PFTs: Restriction suspected due to body habitus Pulmonary nodules, stable, continuing 1 year surveillance I agree with management of other comorbidities/chronic medical problems as above PG Care Time/CCT Total # of Minutes Spent Total Time Spent with Patient: Total time spent is greater than 50% in coordination of care (as documented) at patient's floor/unit and/or counseling patient: Coding [place] [address] INT INP/OBS CARE 3/75MIN Patient Type Established History Comprehensive Exam Comprehensive Medical Decision Making High Complexity Diagnoses Sepsis A41.9 UTI (urinary tract infection) N39.0 Urinary retention R33.9 History of kidney transplant Z94.0 Anemia D64.9 CKD (chronic kidney disease) stage 4, GFR 15-29 ml/min N18.4 Hypertension I10 Hypertension type: essential hypertension Obstructive sleep apnea G47.33 GERD (gastroesophageal reflux disease) K21.9 Esophagitis presence: without esophagitis (7) Hypertension Hypertension type: essential hypertension Qualified Code(s): I10 - Essential (primary) hypertension (9) GERD (gastroesophageal reflux disease) Esophagitis presence: without esophagitis Qualified Code(s): K21.9 - Gastro- esophageal reflux disease without esophagitis
--- NOTE | 2022-10-15 10:10 | XRay Report ---
XR chest 1V portable HISTORY: 62 years-old Male Sepsis acute sepsis COMPARISON: 09/02/2022 TECHNIQUE: AP view of the chest FINDINGS: Cardiac silhouette is enlarged. Reticular nodular densities are again noted along with bilateral armen r lymphadenopathy. No pneumothorax, large pleural effusion or lobar airspace consolidation. Degenerat suzanne changes of the shoulders and spine. IMPRESSION: 1. Cardiomegaly without pulmonary edema. 2. Reticular nodular opacities are redemonstrated along with hilar lymphadenopathy suggestive of a gr anulomatous process such as pulmonary sarcoidosis. Please refer to the chest CT dated 09/02/2022 for ad ditional details. ACT 112: Negative or not required by law. The above report was generated using voice recognition software. It may contain grammatical, syntax o r spelling errors. Electronically signed by: Facundo Miller M.D. 10/15/2022 10:09 AM
--- NOTE | 2022-10-15 10:42 | Electrocardiogram Report ---
Test Reason : Blood Pressure : / mmHG Vent. Rate : 096 BPM Atrial Rate : 096 BPM P-R Int : 172 ms QRS Dur : 130 ms QT Int : 354 ms P-R-T Axes : 038 -52 021 degrees QTc Int : 447 ms Normal sinus rhythm Left axis deviation Right bundle branch block Minimal voltage criteria for LVH, may be normal variant Abnormal ECG When compared with ECG of 23-AUG-2022 07:15, Criteria for Anterior infarct are no longer Present Confirmed by Manuel Sanchez ([id number]) on 10/15/2022 10:41:55 AM Referred By: Confirmed By:Anthony Sanchez
[2022-10-15] MEDS ORDERED: LACTATED RINGER'S 1,000 ML IV SCH (11:00)
[2022-10-15] MEDS ORDERED: ACETAMINOPHEN 325 MG TAB PO PRN (17:42)
[2022-10-15] MEDS: FINASTERIDE 5 MG TAB PO SCH (18:33)
[2022-10-15] MEDS: CEFEPIME 2,000 MG in SYRINGE 0 ML IV SCH (20:44)
[2022-10-15] MEDS: TAMSULOSIN HCL 0.4 MG CAP PO SCH (20:45)
[2022-10-15] MEDS: HEPARIN SOD 5,000 UNIT/0.5 ML VIAL SQ SCH (20:46)
[2022-10-15] MEDS: FERROUS SULFATE 325 MG TAB PO SCH (20:46)
[2022-10-15] MEDS ORDERED: GABAPENTIN 300 MG CAP PO SCH (21:00)
[2022-10-16 00:11] LABS: A calco-baum cmplx NotReported Not Detected (NotDetected); Bact fragilis Not Reported Not Detected (NotDetected); C auris Not Reported Not Detected (NotDetected); CTX-M Resistant Gene Not Detected (NotDetected); Calbicans Not Reported Not Detected (NotDetected); Candida glabrata Not Reported Not Detected (NotDetected); Candida krusei Not Reported Not Detected (NotDetected); Cneoformans/gatti Not Reported Not Detected (NotDetected); Cparapsilosis Not Reported Not Detected (NotDetected); Ctropicalis Not Reported Not Detected (NotDetected); E cloacae compx Not Reported Not Detected (NotDetected); Efaecalis Not Reported Not Detected (NotDetected); Efaecium Not Reported Not Detected (NotDetected); Enterobacterales Not Reported DETECTED (NotDetected); Escherichia coli Not Reported Not Detected (NotDetected); H influenzae Not Reported Not Detected (NotDetected); IMP Resistant Gene Not Detected (NotDetected); K aerogenes Not Reported Not Detected (NotDetected); KPC Resistant Gene Not Detected (NotDetected); Koxytoca Not Reported Not Detected (NotDetected); Kpneumoniae grp Not Reported Not Detected (NotDetected); Lmonocyt Not Reported Not Detected (NotDetected); N meningitidis Not Reported Not Detected (NotDetected); NDM Resistant Gene Not Detected (NotDetected); OXA 48 Like Resistant Gene Not Detected (NotDetected); P aeruginosa Not Reported Not Detected (NotDetected); Proteus spp Not Reported Not Detected (NotDetected); Salmonella spp Not Reported Not Detected (NotDetected); Smarcescens Not Reported Not Detected (NotDetected); Staph lugdunensis Not Reported Not Detected (NotDetected); Staph spp. Not Reported Not Detected (NotDetected); Staphaureus Not Reported Not Detected (NotDetected); Staphepi Not Reported Not Detected (NotDetected); Stenmaltophilia Not Reported Not Detected (NotDetected); Strep agal(GrpB) Not Reported Not Detected (NotDetected); Strep pneum Not Reported Not Detected (NotDetected); Strep pyog (GrpA) Not Reported Not Detected (NotDetected); Strep spp Not Reported Not Detected (NotDetected); VIM Resistant Gene Not Detected (NotDetected)
[2022-10-16 00:19] LABS: Enterobacterales DETECTED (NotDetected)
[2022-10-16 06:40] LABS: Basophils # (auto) 0.05 K/uL (0-0.2); Basophils % (auto) 0.7 %; Eosinophils # (auto) 0.18 K/uL (0-0.50); Eosinophils % (auto) 2.7 %; Hematocrit (blood only) 31.8 % (42.0-52.0); Hemoglobin 10.3 g/dl (14.0-18.0); Immature Granulocytes # (auto) 0.05 K/uL (0.01-0.20); Immature Granulocytes % (auto) 0.7 %; Lymphocytes # (auto) 0.17 K/uL (1.2-3.4); Lymphocytes % (auto) 2.5 %; Mean Corpuscular Hemoglobin 30.8 pg (25.0-34.0); Mean Corpuscular Hgb Conc 32.4 g/dL (32.0-36.0); Mean Corpuscular Volume 95.2 fL (80.0-100.0); Mean Platelet Volume 10.3 fL (9.4-12.4); Monocytes % (auto) 13.4 %; Neutrophils # (auto) 5.37 K/uL (1.40-6.50); Platelet Count 163 K/uL (130-400); RDW Coefficient of Variation 13.2 % (11.5-14.5); RDW Standard Deviation 45.4 fL (36.4-46.3); Red Blood Count 3.34 M/uL (4.70-6.10); White Blood Count 6.72 K/ul (4.8-10.8)
[2022-10-16 07:01] LABS: Albumin Globulin Ratio 1.6 (0.9-2); Albumin Level 3.7 gm/dl (3.4-5.0); BUN Creatinine Ratio 18.1 (10-20); Bilirubin,Total 0.9 mg/dl (0.2-1.0); Calcium 9.3 mg/dl (8.6-10.3); Creatinine Clr Calc Pharmacy 39.9 ml/min; Est GFR (African American) 28.1 ml/min; Est GFR (Non-African American) 24.2 ml/min; Globulin 2.3 gm/dl (2.5-4.0); Magnesium 1.6 mg/dl (1.7-2.4); Potassium 4.3 mmol/L (3.5-5.1)
[2022-10-16] MEDS ORDERED: MAGNESIUM SULFATE / D5W 1 GM/100 ML BAG IV ONE (07:13)
[2022-10-16] MEDS: ADVANCED PROBIOTIC 1250 MG CAPSULE PO SCH (07:43)
[2022-10-16] MEDS: DULoxetine HCL 60 MG CAP PO SCH (07:43)
[2022-10-16] MEDS: HEPARIN SOD 5,000 UNIT/0.5 ML VIAL SQ SCH ×2 (07:43→22:55)
[2022-10-16] MEDS: FERROUS SULFATE 325 MG TAB PO SCH ×2 (07:43→20:39)
[2022-10-16] MEDS: PANTOprazole 40 MG TAB PO SCH (07:43)
[2022-10-16] MEDS: FINASTERIDE 5 MG TAB PO SCH (07:43)
[2022-10-16] MEDS: CEFEPIME 2,000 MG in SYRINGE 0 ML IV SCH ×2 (07:52→20:27)
[2022-10-16] MEDS: GABAPENTIN 300 MG CAP PO SCH ×2 (14:41→20:39)
--- NOTE | 2022-10-16 16:53 | Hospitalist Progress Note ---
Date of Service October 16, 2022 Assessment & Plan (1) Bacteremia: Plan: 62M w/ ESRD S/P renal transplant (on prednisone, cyclosporine, and mycophenolate), recurrent UTI's causing sepsis, sarcoidosis, previous spontaneous BL retroperitoneal hematomas, HTN, FARNAZ, and restrictive lung disease who presented to the [facility] ED on 10/15/22 with urinary freq, urinary urgency, and fatigue since day prior. Clinically improving. -Urine and blood cultures w/ prelim gram neg bacilli, presumed urinary source. Review of prior cultures w/ pansensitive citrobacter and MDR ecoli (sensitive to cefepime). -Lactate WNL -Continue cefepime 2g q12h, renally dosed -With his recent admission for urosepsis and possible prostatitis, will touch base with Urology regarding the need for extended antibiotics on discharge -The patient completed an extended course of Bactrim after last admission, may want to avoid another long course of Bactrim due to the presence of one transplanted kidney (2) UTI (urinary tract infection): Plan: -UA today concerning for infection -Last urine and blood cultures grew pansensitive Citrobacter koser -Will continue with cefepime for now due to his immunocompromised state (3) Urinary retention: Plan: -Has been a chronic issue, follows with [facility] [place] -Last PVR by urology was improved per their clinic note -Continue flomax, proscar, and vibegron (4) History of kidney transplant: Plan: -Currently on 5 mg prednisone, cyclosporine, and cellcept -Will hold all 3 for now, will hold a stress dose of steroids at this time as he appears very stable today -Will obtain cyclosporine level on admission as the patient reports they have been low recently -Will reach out to nephrology regarding timing of restarting the immunosuppressives (5) Anemia: Plan: -Hb 10.3, near baseline -Continue oral iron (6) CKD (chronic kidney disease) stage 4, GFR 15-29 ml/min: Plan: -Renal function stable today -Continue to monitor daily (7) Hypertension: Plan: -Stable -Continue to monitor, not on medication regimen at this time (8) Obstructive sleep apnea: Plan: -HS CPAP ordered (9) GERD (gastroesophageal reflux disease): Plan: -Continue omeprazole Plan FEN/GI: HH, low Na. Gentle hydration NSS 60mL/hr x 1bag for decreased UOP in setting of bacteremia ppx: heparin sq q8 code: full dispo: med tele Admission and Anticipated Discharge Date Admission Date: October 15, 2022 Supervising Physician Co-Signing Physician Notes ATTESTATION I also saw the patient and confirmed bunch portions of the history and exam. I agree with the impression and plan in the resident documentation, and as summarized below. Upon our mid afternoon exam, the patient is semireclined in bed. at bedside. He is reporting feeling better overall. No complaints at present. EXAM 128/70, 78, 18, 37.2, 97% on room air Pleasant. Alert. No acute distress. Lungs are clear; respirations nonlabored Heart regular Extremities with some edema, per patient more than usual baseline, but less than presentation; he does have chronic venous stasis skin changes DATA Labs WBC 6.72, hemoglobin 10.3, platelet count 163 Sodium 137, potassium 4.3, BUN 49, creatinine 2.71 Micro Blood cultures dated 10/15/2022 show gram-negative bacilli Urine culture dated 10/15/2022 shows gram-negative bacilli IMPRESSION & PLAN Sepsis, present upon arrival, presumed urinary source Clinically improved; afebrile and hemodynamically stable Continue cefepime pending speciation and sensitivity CKD, stage IV Status post renal transplant Holding immunosuppressive's at present Advise nephrology Additional per resident documentation Subjective He is feeling better today and reports less malaise. He reports neuropathy as hands and feet. He has had subjective fever intermittently last night. He reported decreased urinary output via void this morning. Review of Systems Review of Systems: All systems reviewed & are unremarkable except as noted in HPI & below Physical Exam Physical Exam: General: Grossly A&O. NAD. Cooperative. HEENT: Atraumatic, normocephalic. Pulm: CTAB. -wheezes, -rales, -rhonchi. No respiratory distress. Cardiac: RRR, -mrg. Trace LE edema. Abdominal: Nontender, nondistended, soft. Integ: Chronic venous stasis changes. Results & Data Results & Data Vital Signs (Past 12 Hours) Vital Signs Temp Pulse Pulse Resp BP Pulse Ox O2 Del Method 10/16/22 15:45 78 10/16/22 15:24 73 18 128/70 97 Room Air 10/16/22 08:00 83 10/16/22 07:17 37.2 C 73 18 154/81 H 94 Room Air Resident Activity Tracking Resident Involvement: Resident Care Provided Care Provided: Adult Hospital Medicine (7) Hypertension Hypertension type: essential hypertension Qualified Code(s): I10 - Essential (primary) hypertension (9) GERD (gastroesophageal reflux disease) Esophagitis presence: without esophagitis Qualified Code(s): K21.9 - Gastro- esophageal reflux disease without esophagitis
[2022-10-16] MEDS ORDERED: SODIUM CHLORIDE 0.9% 1000ML 1,000 ML IV SCH (18:00)
[2022-10-16] MEDS: TAMSULOSIN HCL 0.4 MG CAP PO SCH (20:39)
[2022-10-17] MEDS: HEPARIN SOD 5,000 UNIT/0.5 ML VIAL SQ SCH ×2 (05:03→13:54)
--- NOTE | 2022-10-17 06:04 | Hospitalist Progress Note ---
Date of Service October 17, 2022 Assessment & Plan (1) Bacteremia: Plan: 62M w/ ESRD S/P renal transplant (on prednisone, cyclosporine, and mycophenolate), recurrent UTI's causing sepsis, sarcoidosis, previous spontaneous BL retroperitoneal hematomas, HTN, FARNAZ, and restrictive lung disease who presented to the [facility] ED on 10/15/22 with urinary freq, urinary urgency, and fatigue since day prior. Clinically improving. -Urine and blood cultures w/ prelim gram neg bacilli, presumed urinary source. Review of prior cultures w/ pansensitive citrobacter and MDR ecoli (sensitive to cefepime). -Lactate WNL -Continue cefepime 2g q12h, renally dosed -With his recent admission for urosepsis and possible prostatitis, will touch base with Urology regarding the need for extended antibiotics on discharge -The patient completed an extended course of Bactrim after last admission, may want to avoid another long course of Bactrim due to the presence of one transplanted kidney (2) UTI (urinary tract infection): Plan: -UA today concerning for infection -Last urine and blood cultures grew pansensitive Citrobacter koser -Will continue with cefepime for now due to his immunocompromised state (3) Urinary retention: Plan: -Has been a chronic issue, follows with [facility] [place] urology -Last PVR by urology was improved per their clinic note -Continue flomax, proscar, and vibegron (4) History of kidney transplant: Plan: -Currently on 5 mg prednisone, cyclosporine, and cellcept -Will hold all 3 for now, will hold a stress dose of steroids at this time as he appears very stable today -Will obtain cyclosporine level on admission as the patient reports they have been low recently -Will reach out to nephrology regarding timing of restarting the immunosuppressives (5) Anemia: Plan: -Hb 10.3, near baseline -Continue oral iron (6) CKD (chronic kidney disease) stage 4, GFR 15-29 ml/min: Plan: -Renal function stable today -Continue to monitor daily (7) Hypertension: Plan: -Stable -Continue to monitor, not on medication regimen at this time (8) Obstructive sleep apnea: Plan: -HS CPAP ordered (9) GERD (gastroesophageal reflux disease): Plan: -Continue omeprazole Plan FEN/GI: HH, low Na. Gentle hydration NSS 60mL/hr x 1bag for decreased UOP in setting of bacteremia ppx: heparin sq q8 code: full dispo: med tele Admission and Anticipated Discharge Date Admission Date: October 15, 2022 Review of Systems Review of Systems: All systems reviewed & are unremarkable except as noted in HPI & below Physical Exam Physical Exam: General: Grossly A&O. NAD. Cooperative. HEENT: Atraumatic, normocephalic. Pulm: CTAB. -wheezes, -rales, -rhonchi. No respiratory distress. Cardiac: RRR, -mrg. Abdominal: Nontender, nondistended, soft. Results & Data Results & Data Vital Signs (Past 12 Hours) Vital Signs Temp Pulse Pulse Resp BP Pulse Ox O2 Del Method 10/17/22 02:31 37.1 C 64 17 149/88 H 96 Room Air 10/16/22 22:12 91 H 10/16/22 23:01 36.8 C 80 18 158/85 H 94 Room Air 10/16/22 19:13 36.9 C 79 16 157/87 H 97 Room Air Resident Activity Tracking Resident Involvement: Resident Care Provided Care Provided: Adult Hospital Medicine (7) Hypertension Hypertension type: essential hypertension Qualified Code(s): I10 - Essential (primary) hypertension (9) GERD (gastroesophageal reflux disease) Esophagitis presence: without esophagitis Qualified Code(s): K21.9 - Gastro- esophageal reflux disease without esophagitis
[2022-10-17 08:27] LABS: Basophils # (auto) 0.05 K/uL (0-0.2); Basophils % (auto) 1.1 %; Eosinophils # (auto) 0.24 K/uL (0-0.50); Eosinophils % (auto) 5.3 %; Hematocrit (blood only) 32.8 % (42.0-52.0); Hemoglobin 10.7 g/dl (14.0-18.0); Immature Granulocytes # (auto) 0.04 K/uL (0.01-0.20); Immature Granulocytes % (auto) 0.9 %; Lymphocytes # (auto) 0.35 K/uL (1.2-3.4); Lymphocytes % (auto) 7.7 %; Mean Corpuscular Hemoglobin 31.2 pg (25.0-34.0); Mean Corpuscular Hgb Conc 32.6 g/dL (32.0-36.0); Mean Corpuscular Volume 95.6 fL (80.0-100.0); Mean Platelet Volume 10.5 fL (9.4-12.4); Monocytes # (auto) 1.07 K/uL (0.11-0.59); Monocytes % (auto) 23.5 %; Neutrophils # (auto) 2.81 K/uL (1.40-6.50); Neutrophils % (auto) 61.5 %; Platelet Count 188 K/uL (130-400); RDW Coefficient of Variation 13.1 % (11.5-14.5); RDW Standard Deviation 46.2 fL (36.4-46.3); Red Blood Count 3.43 M/uL (4.70-6.10); White Blood Count 4.56 K/ul (4.8-10.8)
[2022-10-17 08:41] LABS: Albumin Globulin Ratio 1.5 (0.9-2); Albumin Level 3.9 gm/dl (3.4-5.0); BUN Creatinine Ratio 16.9 (10-20); Bilirubin,Total 0.7 mg/dl (0.2-1.0); Calcium 9.3 mg/dl (8.6-10.3); Creatinine Clr Calc Pharmacy 43.6 ml/min; Est GFR (African American) 31.3 ml/min; Globulin 2.6 gm/dl (2.5-4.0); Potassium 4.1 mmol/L (3.5-5.1); Total Protein 6.5 gm/dl (6.0-8.3)
[2022-10-17] MEDS: FERROUS SULFATE 325 MG TAB PO SCH (08:54)
[2022-10-17] MEDS: PANTOprazole 40 MG TAB PO SCH (08:54)
[2022-10-17] MEDS: ADVANCED PROBIOTIC 1250 MG CAPSULE PO SCH (08:54)
[2022-10-17] MEDS: FINASTERIDE 5 MG TAB PO SCH (08:54)
[2022-10-17] MEDS: DULoxetine HCL 60 MG CAP PO SCH (08:54)
[2022-10-17] MEDS: GABAPENTIN 300 MG CAP PO SCH ×2 (08:54→13:54)
[2022-10-17] MEDS ORDERED: FEBUXOSTAT 80 MG TAB PO SCH (09:00)
[2022-10-17] MEDS: CEFEPIME 2,000 MG in SYRINGE 0 ML IV SCH (09:06)
--- NOTE | 2022-10-17 12:57 | Discharge Summary ---
Date of Service October 17, 2022 Admission HPI Per Admitting Provider Kirby is a 62 year old male with a PMH significant for ESRD S/P renal transplant (on prednisone, cyclosporine, and mycophenolate), recurrent UTI's causing sepsis, sarcoidosis, previous spontaneous BL retroperitoneal hematomas, HTN, FARNAZ, and restrictive lung disease who presented to the [facility] ED on 10/15/22 with recurrent urinary symptoms and concern for UTI. In the ED the patient was found to be tachycardic at 108, otherwise vitals were stable. Labs were significant for a stable cr of 2.89, total bili of 1.3, procal of 0.56, UA concerning for infection, and covid 19 negative. Chest xray was read as "1. Cardiomegaly without pulmonary edema. 2. Reticular nodular opacities are redemonstrated along with hilar lymphadenopathy suggestive of a granulomatous process such as pulmonary sarcoidosis. Please refer to the chest CT dated 09/02/2022 for additional details.". Prior to admission the patient was given a dose of Cefepime and 2L NSS. At the time of the exam the patient was lying in bed in no acute distress. He states that he started to develop generalized weakness/fatigue approximately 48 hours ago. He initially attributed his symptoms to his work, but they did not improve and actually progressed after a good night's sleep two nights ago. He also started to develop dysuria and increased urinary frequency, leading him to come to the ED. He currently feels well and is happy he came in earlier than last admission as he is much more stable at this time. He did not take any of his am medications today, but has been taking his immunosuppressants with last doses yesterday. He completed the course of PO bactrim from last discharge. He has been on flomax, proscar, and Vibegron at the recommendation of Dr. Neff but is unsure how well they are working at this time. He denies recent chest pain, SOB, cough, abd pain, nausea, vomiting, diarrhea, hematuria, bloody BM's, melena, and recent trauma. He dose feel as though his LE's have been more swollen this week and has been taking 20 mg PO lasix daily for this. He is still making urine and has not noticed a decrease in production over the past 72 hours. The patient was recently admitted to [facility] from 08/23-08/27 due to urosepsis and gram negative bacteremia. Urine and blood cultures grew Citrobacter koseri. He was initially started on Daptomycin and Cefepime but Daptomycin was stopped once cultures and sensitivities were obtained. A PSA was obtained on admission due to concern for prostatitis with recent prostate biopsy and was elevated at 41. Due to concerns for possible Prostatitis the patient was discharged on a 14 day course of Bactrim as recommended by Urology during their consultation. The patient has followed up with Urology multiple times since discharge and his PSA had fallen back to baseline after his course of Bactrim had been finished. Admission Exam Per Admitting Provider General:In no acute distress, stated age, well-nourished, good hygiene, non- toxic appearing HEENT:Normocephalic, atraumatic, no scleral icterus, pupils around round, symmetrical, and reactive to light, moist mucus membranes, trachea midline, no thyromegaly Chest/Pulm:No respiratory distress, symmetrical chest expansion, clear breath sounds throughout Cardiac:RRR, no murmurs noted Abdomen:Negative for ascites and bruising, normoactive bowel sounds, soft, non-tender to palpation throughout Musculoskeletal:Symmetrical and without signs of acute trauma, upper and lower extremities with full ROM, no atrophy, spasticity, or flaccidity Extremities:Radial, dorsalis pedis, and posterior tibial pulses are intact and symmetrical, 1+ edema noted in the BL LE's Skin:Patient with chronic LE skin changes which he reports are at baseline Neuro:Alert and oriented to person, place, month, year, and president, no focal defects, CN II-XII tested and intact, , no tremors noted Psych:No acute distress, calm and cooperative during the exam Principal Diagnosis bacteremia complicated urinary tract infection Discharge Exam General: Grossly A&O. NAD. Cooperative. HEENT: Atraumatic, normocephalic. Pulm: CTAB. -wheezes, -rales, -rhonchi. No respiratory distress. Cardiac: RRR, -mrg. Abdominal: Nontender, nondistended, soft. Back: No CVA tenderness. Discharge Data Allergies Allergy/AdvReac Type Severity Reaction Status Date / Time allopurinol Allergy Unknown Rash Verified 09/07/22 15:58 hydromorphone [From Dilaudid] AdvReac Severe confusion Verified 09/07/22 15:58 Consultations 10/15/22 09:44 ED Decision to Admit Stat Ordered Studies Cardiac Enzymes 10/17/22 Range/Units 07:37 AST 12 L (13-39) U/L CBC 10/17/22 Range/Units 07:37 WBC 4.56 L (4.8-10.8) K/ul RBC 3.43 L (4.70-6.10) M/uL Hgb 10.7 L (14.0-18.0) g/dl Hct 32.8 L (42.0-52.0) % Plt Count 188 (130-400) K/uL Neut # (Auto) 2.81 (1.40-6.50) K/uL Lymph # (Auto) 0.35 L (1.2-3.4) K/uL [place] # (Auto) 1.07 H (0.11-0.59) K/uL Eos # (Auto) 0.24 (0-0.50) K/uL Baso # (Auto) 0.05 (0-0.2) K/uL Comprehensive Metabolic Panel 10/17/22 Range/Units 07:37 Sodium 138 (136-145) mmol/L Potassium 4.1 (3.5-5.1) mmol/L Chloride 107 (98-107) mmol/L Carbon Dioxide 22 (21-32) mmol/L BUN 42 H (6-23) mg/dl Creatinine 2.48 H (0.6-1.4) mg/dl Glucose 98 (70-99(Fasting)) mg/dl Calcium 9.3 (8.6-10.3) mg/dl AST 12 L (13-39) U/L ALT 16 (7-52) U/L Alkaline Phosphatase 103 (34-104) U/L Total Protein 6.5 (6.0-8.3) gm/dl Albumin 3.9 (3.4-5.0) gm/dl Intake and Output 10/17/22 10/17/22 10/17/22 06:59 14:59 22:59 Intake Total 0 / 1565 1000 / 1000 Balance 0 / 840 1000 / 1000 Intake: IV 1000 / 1000 Sodium Chloride 0.9% 1000ML 1, 1000 / 1000 000 ml @ 80 mls/hr IV .[id number] [facility] Rx#:[id number] Oral 0 1465 Other: # Unmeasured Voids 2 Weight 133.7 kg Chest X-Ray 10/15/22 08:22 XR chest 1V portable HISTORY: 62 years-old Male Sepsis acute sepsis COMPARISON: 09/02/2022 TECHNIQUE: AP view of the chest FINDINGS: Cardiac silhouette is enlarged. Reticular nodular densities are again noted along with bilateral hilar lymphadenopathy. No pneumothorax, large pleural effusion or lobar airspace consolidation. Degenerative changes of the shoulders and spine. IMPRESSION: 1. Cardiomegaly without pulmonary edema. 2. Reticular nodular opacities are redemonstrated along with hilar lymphadenopathy suggestive of a granulomatous process such as pulmonary sarcoidosis. Please refer to the chest CT dated 09/02/2022 for additional details. ACT 112: Negative or not required by law. The above report was generated using voice recognition software. It may contain grammatical, syntax or spelling errors. Electronically signed by: Facundo Miller M.D. 10/15/2022 10:09 AM Hospital Course (1) Bacteremia: 62M w/ ESRD S/P renal transplant (on prednisone, cyclosporine, and mycophenolate), recurrent UTI's causing sepsis, sarcoidosis, previous spontaneous BL retroperitoneal hematomas, HTN, FARNAZ, and restrictive lung disease who presented to [facility] on 10/15/22 with urinary freq, urinary urgency, and fatigue since day prior. Clinically improved. -Urine and 2/2 blood cultures w/ pansensitive citrobacter koseri, presumed urinary source. Review of prior cultures w/ pansensitive citrobacter koseri (07/2022) and MDR ecoli (01/2022) (sensitive to cefepime). -Patient was prescribed Bactrim DS at 08/31 urology visit. This was intended as a 14-day course, but was extended to close to 21 days because of renal adjustment several days in. -Patient's current admission is essentially a reoccurrence of the same Citrob acter bacteremia and UTI that he had in late July. He had only been off of the Bactrim for only ~3wks, possible prostate reseeding. -Patient was treated with approximately 3 days of cefepime while inpatient. -Upon discharge, patient will be taking 2 weeks of Cipro 500 mg twice daily. This is the dose to treat the bacteremia and UTI. After this, he will be taking 4 weeks of Cipro 250 mg twice daily; chronic prostatitis dosing. -Discussed the above abx course and dosing with urology, nephrology, and pharmacy. Patient to follow-up with urology in 2 weeks. Urology tentatively plan to do cystoscopy at that time while patient is on the Cipro. -Recheck BMP in approximately 10 days. If creatinine clearance drops below 30, the Cipro frequency may need adjusting. (2) UTI (urinary tract infection): - See above (3) Urinary retention: -Has been a chronic issue, follows with [facility] urology -Last PVR by urology was improved per their clinic note -Continue flomax, proscar, and vibegron (4) Peripheral neuropathy: -Renally adjusted patient's gabapentin dosing to 300 mg 3 times daily (different doses listed on med rec but at 1 point in the past he had been 600 mg 3 times daily). This is the maximum recommended dosing for his renal function. Ideally would use a less than this. -While patient is on the 6 weeks of Cipro, instructed him to discontinue the duloxetine 60 mg daily due to significantly increased levels of the duloxetine (CYP system) on Cipro. He states that the duloxetine is for neuropathy and he is agreeable to holding. (5) History of kidney transplant: -During this admission, held 5 mg prednisone, cyclosporine, and cellcept. Clinically did not need stress dose steroids. -Cyclosporine level is pending. Previous level was low at 91 on 09/22/22 -Discussed with nephrology. Will restart the above medications on 10/18/22 at home. (6) CKD (chronic kidney disease) stage 4, GFR 15-29 ml/min: -Renal function stable/at baseline, Cr 2.48, CrCl 43.6 (though has range lows in the 30s per chart review). egfr 27.0 (range lows of upper teens in past few months). -Recheck in 10 days (7) Anemia: -Hb 10.3, near baseline -Continue oral iron (8) Hypertension: -Stable, not on medications. (9) Obstructive sleep apnea: -Continue home qhs cpap (10) GERD (gastroesophageal reflux disease): -Continue omeprazole. (11) Chronic venous stasis: - At baseline. Plan Patient was full code this admission. Total Time Total Time Spent Total Time Spent (In Minutes): I spent 40 minutes talking to the patient, discussing the case on the telephone with his outpatient neurologist and outpatient image consultant, reviewing laboratory data, and documenting. Discharge Plan Discharge Items Patient Disposition: Home - Self-Care Reason For Visit: URINARY SYMPTOMS Discharge Diagnosis: bacteremia complicated urinary tract infection Activity: Per Instructions section Non-emergency contact: Primary Care Provider and Urologist Call non-emergency contact if: you have any medication questions and your symptoms worsen Follow-up/Referrals: ProVinicius MD [Primary Care Provider] - (hospital f/u within 1 week, if possible. Patient is leaving town in a few days for a trip.) Diet: Regular Ambulatory Orders: Basic Metabolic Panel (Routine) Timeframe: 11 Day Location: Determined by Patient Ordered By: Vincent Connor Attending Provider Instructions: You were admitted to [facility] for treatment of urinary and bloodstream infection (citrobacter koseri). You were treated with IV antibiotics (cefepime). Upon discharge, your antibiotic regimen will be: 1. 14 days of Cipro 500 mg twice a day (to treat the urinary and blood infection). 2. After that, 4 weeks of Cipro 250 mg twice a day (chronic prostatitis dosing). The Cipro can increased the concentration of the duloxetine (which you take for neuropathy) several times. Please stop taking the duloxetine during the 6 weeks (and a few days after) that you are on Cipro. Because of your kidney function, the gabapentin dose should be decreased to 300mg 3 times a day at the most. This is the maximum recommended dosage. A l ittle less than this would be ideal. This plan was discussed with urology, nephrology, and pharmacy. You will be contacted by the urology office to have an appointment in approximately 2 weeks, upon return from your trip. Urology may potentially do a cystoscopy while you're on the antibiotic. Please also follow-up with PCP within 1 week. Contact your PCP if you have any questions, new or worsening symptoms. If emergent or severe symptoms, visit the ER. Pending Studies at Discharge: No Stand-Alone Forms: My [facility], Smoking Cessation Medications and DC Order Prescriptions: New ciprofloxacin HCl [Cipro] 250 mg tablet See Rx Instructions .ROUTE .COMPLEX Qty: 112 0RF Rx Instructions: 14 days of cipro 500mg ([id number]) BID. after that, 28 days of cipro 250mg BID. Continued omeprazole 40 mg capsule,delayed release(DR/EC) 40 mg PO QAM Qty: 90 3RF mycophenolate mofetil [CellCept] 250 mg capsule 1,000 mg PO BID Qty: 180 3RF cyclosporine modified 100 mg capsule 100 mg PO BID Qty: 180 3RF febuxostat [Uloric] 80 mg tablet 80 mg PO QAM Qty: 90 0RF Repatha Pushtronex 420 mg/3.5 mL wearable injector 420 mg subcut .ONCE MONTHLY Qty: 10.5 1RF Rx Instructions: Prescribed, but not started yet Gemtesa 75 mg tablet 75 mg PO DAILY Qty: 90 3RF tamsulosin [Flomax] 0.4 mg capsule 0.4 mg PO HS docusate sodium [Colace] 100 mg capsule 100 mg PO BID PRN (Reason: Constipation) multivitamin [Daily Multi-Vitamin] tablet 1 tab PO QAM cholecalciferol (vitamin D3) 1,000 unit capsule 1,000 units PO QAM prednisone 5 mg tablet 5 mg PO QAM duloxetine 60 mg capsule,delayed release(DR/EC) 60 mg PO QAM Qty: 90 3RF magnesium oxide 400 mg magnesium capsule 800 mg PO .HOLD Hold Instructions: Home Medication placed on hold at Doctor's office Rx Instructions: Has been on hold for approximately 1year per patient ferrous sulfate [iron] 325 mg (65 mg iron) Tablet 325 mg PO BID acetaminophen [Tylenol Extra Strength] 500 mg Tablet 1,000 mg PO QID PRN (Reason: Pain) furosemide [Lasix] 40 mg tablet 20 mg PO QAM Rx Instructions: 20mg daily. May take up to 40mg daily if needed for edema finasteride [Proscar] 5 mg Tablet 5 mg PO QAM Qty: 30 0RF Hold Instructions: Home Medication placed on hold at Doctor's office sildenafil (pulm.hypertension) 20 mg Tablet 20 mg PO TID PRN (Reason: Erectile Dysfunction) Rx Instructions: Take 1 hour before planned stimulation on an empty stomach. Can take up to 5 tabs (100mg) at 1 time. [Prescribed by urology] Changed gabapentin 300 mg Capsule 300 mg PO TID 30 Days Qty: 60 0RF Rx Instructions: patient reports taking reduced dose of 600mg TID. Per 09/20 nephrology note, dose is 300mg TID Discharge Orders: Discharge Order (Routine); Ordered 10/17/22 Ordered By: Vincent Ruiz/Other Patient Handouts: Ciprofloxacin Oral Tablet Admission Data Admit Date/Time: 10/15/22 10:25 Attending Provider: Rolando Willis Admit Provider: Rodrigo Rendon Primary Care Provider: Vinicius Ng Other Providers: Rodrigo Rendon Other Interventions: Discharge Summary Assessment (RN) Last Done: 10/17/22 15:44 Supervising Physician Co-Signing Physician Notes ATTESTATION I also saw the patient and confirmed bunch portions of the history and exam. I agree with the impression and plan in the resident documentation, and as chelseai vee below. When I saw the patient late morning, he was semireclined in bed. at bedside. The patient had no complaints. He stated that he felt quite well. He was doing some work on his laptop computer. I also discussed the case with his outpatient neurologist and image consultant in effort to coordinate care. EXAM 157/84, 72, 18, 36.7, 96% on room air Pleasant. Alert. No acute distress. Lungs are clear; respirations nonlabored Heart regular Extremities with some edema, per patient more than usual baseline, but less than presentation; he does have chronic venous stasis skin changes DATA Labs WBC 4.56, hemoglobin 10.7, platelet count 188 Sodium 138, potassium 4.1, BUN 42, creatinine 2.48 Micro Blood cultures dated 10/15/2022 show Citrobacter koseri Urine culture dated 10/15/2022 shows Citrobacter koseri Speciation and sensitivity similar to blood and urine cultures from 07/2622 IMPRESSION & PLAN Sepsis, present upon arrival, presumed urinary source Clinically improved; afebrile and hemodynamically stable In reviewing the patient's last hospitalization, his blood and urine cultures demonstrate the same species and sensitivity. He had been discharged on Bactrim for 14 days, and this was adjusted renally (switch to once daily instead of twice daily), and thus extended to 3 weeks of therapy. Thus, the patient was off antibiotics for less than 3 weeks until he read presented. I suspect, the bacteria had ever been completely eradicated, perhaps seeded from the prostate? Discussed the case with both the patient's outpatient urologist and image consultant in effort to coordinate care. Discussed all aspects of care with the patient, including the risk of cynthia quinolone antibiotics (tendon rupture, damage to vascular structures) as well as the benefits in his case (excellent penetration of urinary system and prostatic tissue). Ciprofloxacin 500 mg p.o. twice daily x2 weeks Then reduce to ciprofloxacin 250 mg p.o. twice daily x 4-6 weeks Follow-up with urology around two weeks for reassessment, possible cystoscopy arranged during the time which he is on the Cipro CKD, stage IV Status post renal transplant Resume immunosuppressants Additional per resident documentation
== END 2022-10-17 17:26 | disposition home or self-care (01) | DRG 872 ==
LOC: ED 08:02 → EDINP 10:25 → SUATTDRO 10:25 → 2W 13:33

== ENCOUNTER 2022-11-11 21:03 | Inpatient (IN) ==
--- NOTE | 2022-11-11 22:14 | Emergency Department Note ---
History of Present Illness General Chief complaint: Referred by Doctor Stated complaint: REF BY DOC,BLOOD CLOT R KNEE/LUNGS Time Seen by Provider: 11/11/22 22:08 History of Present Illness Maximum Pain Intensity: 5 This 62-year-old male patient presents emergency department for evaluation of a blood clot in his right leg as well as concerns for a PE. The patient states he saw his PCP this morning for pain in his right knee. He had x-rays of the right knee, chest x-ray, and a venous Doppler of the right lower extremity done as an outpatient. The venous Doppler showed a DVT. The patient now feels short of breath and is concerned about a PE. He rates his discomfort as 5/10. 3 weeks ago he started with right knee pain without known injury or trauma. About 2 weeks ago he started with the SOB. States that it feels like bricks are on his chest whenever he tries to lay flat. He has to sleep upright for the past 2 weeks and has not been able to use his CPAP b/c it feels like it is suffocating him. No fevers or URI symptoms, but started with a cough yesterday. Denies any abdominal pain, nausea, or vomiting. Stools have been dark and tarry for about 3 weeks after being on antibiotics for a UTI that required admission. Currently he is on a 28 day course of cipro for the UTI. Denies hematochezia, hematuria, hemoptysis, or hematemesis. 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 He has had 3 retroperitoneal bleeds on blood thinners previously per patient. IVC filter was discussed, but not pursued at this time given endocarditis. The patient's first DVT was noted after his melanoma removal from the left lower extremity. The patient states that he has had hypercoagulability work-up in the past that was inconclusive. He also has a history of renal transplant. Upon review of the patient's imaging from earlier today: Venous Doppler of the bilateral lower extremities shows a thrombus within the right gastrocnemius vein which extends to within 1 cm of the right popliteal vein which is considered a DVT. Superficial thrombus within the right small saphenous vein. No DVT of the left lower extremity. X-rays of the right knee have not been read by radiology yet, but per my interpretation show osteoarthritic changes without acute fracture or dislocation. Chest x-ray had not been read by radiology yet, but per my interpretation shows no acute cardiopulmonary etiology. Blood work from today showed a normal WBC count and hemoglobin of 10.7 which is stable. Normal platelet count. Creatinine of 2.83 and BUN of 78. CMP otherwise without significant abnormalities. Home Medications Medication Instructions Recorded Confirmed Type cholecalciferol (vitamin D3) 25 1,000 units PO QAM 04/24/19 11/11/22 History mcg (1,000 unit) capsule docusate sodium 100 mg capsule 100 mg PO BID PRN Constipation 04/24/19 11/11/22 History (Colace) multivitamin (Daily Multi-Vitamin 1 tab PO QAM 04/24/19 11/11/22 History tablet) tamsulosin 0.4 mg capsule (Flomax) 0.4 mg PO HS 04/24/19 11/11/22 History prednisone 5 mg tablet 5 mg PO QAM 05/29/19 11/11/22 History ferrous sulfate 325 mg (65 mg 325 mg PO BID 08/05/21 11/11/22 History iron) tablet (iron) acetaminophen 500 mg tablet 1,000 mg PO QID PRN Pain 08/24/21 11/11/22 History (Tylenol Extra Strength) duloxetine 60 mg capsule,delayed 60 mg PO QAM #90 caps 11/13/21 11/11/22 Rx release furosemide 40 mg tablet (Lasix) 20 mg PO QAM 12/25/21 11/11/22 History omeprazole 40 mg capsule,delayed 40 mg PO QAM #90 caps 04/27/22 11/11/22 Rx release cyclosporine modified 100 mg 100 mg PO BID #180 caps 08/27/22 11/11/22 Rx capsule mycophenolate mofetil 250 mg 1,000 mg PO BID #180 caps 08/27/22 11/11/22 Rx capsule (CellCept) febuxostat 80 mg tablet (Uloric) 80 mg PO QAM #90 tabs 09/01/22 11/11/22 Rx evolocumab 420 mg/3.5 mL 420 mg (3.5 mL) subcut .ONCE 09/24/22 11/11/22 Rx subcutaneous wearable injector MONTHLY #10.5 mL (Repatha Pushtronex) sildenafil (pulm.hypertension) 20 20 mg PO TID PRN Erectile 10/16/22 11/11/22 History mg tablet Dysfunction ciprofloxacin HCl 250 mg tablet See Rx Instructions .Route 10/17/22 11/11/22 Rx (Cipro) .COMPLEX #112 tabs finasteride 5 mg tablet (Proscar) 5 mg PO QAM #90 tabs 11/04/22 11/11/22 Rx vibegron 75 mg tablet (Gemtesa) 75 mg PO DAILY #90 tabs 11/04/22 11/11/22 Rx gabapentin 300 mg capsule 600 mg PO TID 30 days #540 caps 11/11/22 11/11/22 Rx Allergies Allergy/AdvReac Type Severity Reaction Status Date / Time allopurinol Allergy Unknown Rash Verified 11/11/22 16:12 hydromorphone [From Dilaudid] AdvReac Severe confusion Verified 11/11/22 16:12 Past Med/Surg History Medical History Acute dehydration Anemia Aortic valve endocarditis AV fistula LEFT WRIST> NO DIALYSIS CURRENTLY> [facility] STILL WORKS PER PT Bacteremia Bacteremia due to Escherichia coli BPH (benign prostatic hyperplasia) BPH (benign prostatic hyperplasia) Chronic venous stasis Dehydration Depression Discharge planning issues DVT (deep venous thrombosis) Right- 04/2019 following transplant > Coumadin S/P LEFT LEG SURGERY (EXCISION OF MELANOMA LEFT LEG) 10 YEARS AGO. 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 Chronic renal insufficiency s/p renal transplant - follows with nephro Per 07/17/20 surgeon note: "His transplant surgeons have cleared him to have this (hernia) repaired." GERD (gastroesophageal reflux disease) Gout Gout History of basal cell carcinoma Hyperphosphatemia Hypertension Immunocompromised Immunocompromised Knee contusion Lower extremity edema Metabolic acidosis Metabolic syndrome Multiple pulmonary nodules Nephrolithiasis Obesity Osteoarthritis of left hip Peripheral neuropathy Pulmonary nodule Rectus sheath hematoma Renal transplant recipient Retroperitoneal hematoma Retroperitoneal hematoma Sarcoidosis Sarcoidosis Sepsis Sepsis Septic shock due to urinary tract infection Severe sepsis Small bowel obstruction Supratherapeutic INR Symptomatic anemia Tremor Umbilical hernia UTI (urinary tract infection) Venous insufficiency Venous stasis dermatitis Surgical History H/O colonoscopy History of cardiac cath History of melanoma excision History of renal transplant History of tonsillectomy History of tooth extraction Kidney transplanted Family History Mother Stroke Heart disease Grandmother Cancer Lung disease Denies family history of Ovarian cancer Prostate cancer Colorectal cancer Social History Smoking Status: Never smoker Second Hand Exposure: No; Do You Dip or Chew Tobacco: No; Hx Alcohol Use: No Hx Substance Use: No Preferred Language: Frisian Communication Ability: Effective Visual Impairment: No Limitations Forging Dies Final Finisher Required: No Beliefs That Will Affect Care: None marital status: Current Living Situation: Spouse Current Living Situation Comment: living with . current occupational status: employed current occupation: [employer] How many Children do You have: 1 Other Information That Helps Us Care for You: No Feels Safe at Home: Yes Safety Concerns: Feels Safe At This Time caffeine: Yes Dental Care, Regularly: Yes Seatbelt Use: always Sunscreen Use: Yes Assistive Devices: CPAP and Glasses Review of Systems See HPI for pertinent positives & negatives. Physical Exam Vital Signs Vital Signs - 24 hr 11/11/22 21:05 11/11/22 22:42 11/11/22 23:15 Temperature 37.1 C Temperature Source Temporal Artery Scan Pulse Rate 92 H 80 Pulse Rate [Apical] 81 Pulse Rhythm Respiratory Rate 20 16 Respiratory Effort / Characteristics Spontaneous Short of Breath Respiratory Depth Normal Blood Pressure 168/83 H Blood Pressure [Right Arm] 161/87 H Blood Pressure Mean 111 Blood Pressure Mean [Right Arm] 111 Pulse Oximetry 92 100 Oxygen Delivery Method Room Air Nasal Cannula Oxygen Flow Rate 3 Sepsis Recent Fever Within 48 Hours No Sepsis New/Unexplained Change in Mental Status No Sepsis Action Taken by Nursing No Action Required 11/11/22 22:25 Temperature Temperature Source Pulse Rate 72 Pulse Rate [Apical] Pulse Rhythm Regular Respiratory Rate 24 Respiratory Effort / Characteristics Respiratory Depth Blood Pressure Blood Pressure [Right Arm] Blood Pressure Mean Blood Pressure Mean [Right Arm] Pulse Oximetry 98 Oxygen Delivery Method Room Air Oxygen Flow Rate Sepsis Recent Fever Within 48 Hours Sepsis New/Unexplained Change in Mental Status Sepsis Action Taken by Nursing VITALS: Vitals are noted on the nurse's note and reviewed by myself. GENERAL: Non toxic, no acute distress, non-diaphoretic. SKIN: Capillary refill <2 sec. EYES: PERRLA. EOMI. Conjunctivae without injection, sclerae without icterus. NOSE: Patent without discharge. MOUTH: Mucous membranes moist. Uvula midline. Airway patent. NECK: Supple without nuchal rigidity. HEART: Regular rate and rhythm without murmurs gallops or rubs. LUNGS: Clear to auscultation bilaterally without wheezes, rales or rhonchi. No retractions or accessory muscle use. ABDOMEN: Positive bowel sounds x 4. Normal tympanic percussion. Soft, nontender, without masses or organomegaly. Davison sign negative. No guarding or rebound tenderness. No focal RLQ or LLQ tenderness. RECTAL EXAM: Permission to perform the exam. Banking Specialist present for exam. No external lesions noted. No external hemorrhoids. Normal sphincter tone. Internal hemorrhoids are not enlarged. No masses, tears, fistulas, fissures, abscess, or other lesion noted. Stool is brown and Hemoccult negative. MUSCULOSKELETAL: The patient's bilateral lower extremities are edematous with hyperpigmentation of the bilateral lower legs. The patient is tender to palpation over the bilateral calves and popliteal fossa. Peripheral pulses 2+. NEURO: Patient was alert and oriented to person place and time. Course Administered Medications Heparin Sodium/Dextrose (Heparin Sodium/Dextrose) 25,000 units in 500 mls @ 36 mls/hr IV .[id number] [facility]; Protocol Stop: 12/11/22 22:59 Last Titration: 11/12/22 07:12 Dose: 1,800 units/hr, 36 mls/hr Documented By: ROD Co-signed By: CARLOS Admin: 11/12/22 00:58 Dose: 1,800 units/hr, 36 mls/hr Documented By: PREET Co-signed By: HERIBERTO Discontinued Medications Furosemide (Furosemide 40 Mg/4 Ml Vial) 40 mg IV ONE ONE Stop: 11/12/22 02:16 Last Admin: 11/12/22 05:32 Dose: Not Given Documented By: CARLOS Heparin Sodium (Porcine) (Heparin Sod (Porcine) 1000 Unit/Ml) 8,000 units IV NOW ONE Stop: 11/11/22 23:31 Last Admin: 11/12/22 01:01 Dose: 5,000 units Documented By: PREET Co-signed By: HERIBERTO Heparin Sodium/Dextrose (Heparin Iv Adult Wt-Based Standard With Bolus Protocol) 1 each IV NOW STA; Protocol Stop: 11/11/22 22:32 Last Admin: 11/12/22 01:01 Dose: Not Given Documented By: PREET Medical Decision Making Differential Diagnosis Differential diagnosis includes DVT, SVT, PE, SC, CHF, pneumonia, sepsis, transplant rejection, or others. Laboratory Data Attestation: I reviewed the patient's lab results. 11/11/22 22:32 11/12/22 00:33 Lab Results 11/11/22 11/11/22 11/11/22 Range/Units 22:32 22:32 22:32 WBC 7.49 (4.8-10.8) K/ul RBC 3.36 L (4.70-6.10) M/uL Hgb 10.5 L (14.0-18.0) g/dl Hct 31.6 L (42.0-52.0) % MCV 94.0 (80.0-100.0) fL MCH 31.3 (25.0-34.0) pg MCHC 33.2 (32.0-36.0) g/dL RDW Std Deviation 46.9 H (36.4-46.3) fL RDW Coeff of Theresa 13.9 (11.5-14.5) % Plt Count 186 (130-400) K/uL MPV 11.2 (9.4-12.4) fL Immature Gran % (Auto) 0.5 % Neut % (Auto) 83.7 % Lymph % (Auto) 2.8 % [place] % (Auto) 8.5 % Eos % (Auto) 3.7 % Baso % (Auto) 0.8 % Neut # (Auto) 6.26 (1.40-6.50) K/uL Lymph # (Auto) 0.21 L (1.2-3.4) K/uL [place] # (Auto) 0.64 H (0.11-0.59) K/uL Eos # (Auto) 0.28 (0-0.50) K/uL Baso # (Auto) 0.06 (0-0.2) K/uL Immature Gran # (Auto) 0.04 (0.01-0.20) K/uL PT Cancelled INR Cancelled APTT Cancelled PTT Ratio Cancelled Sodium 139 (136-145) mmol/L Potassium TNP Chloride 110 H (98-107) mmol/L Carbon Dioxide 19 L (21-32) mmol/L Anion Gap 10 (3-11) BUN 76 H (6-23) mg/dl Creatinine 2.85 H (0.6-1.4) mg/dl Est Cr Clr Drug Dosing 38.4 ml/min Est GFR ( Amer) 26.4 ml/min Est GFR (Non-Af Amer) 22.8 ml/min BUN/Creatinine Ratio 26.7 H (10-20) Glucose 139 H (70-99(Fasting)) mg/dl Calcium 9.5 (8.6-10.3) mg/dl Total Bilirubin 0.6 (0.2-1.0) mg/dl AST TNP ALT 14 (7-52) U/L Alkaline Phosphatase 87 (34-104) U/L Troponin I High Sens 10.0 (0-20) pg/ml B-Natriuretic Peptide (0-100) pg/ml Total Protein 6.8 (6.0-8.3) gm/dl Albumin 4.2 (3.4-5.0) gm/dl Globulin 2.6 (2.5-4.0) gm/dl Albumin/Globulin Ratio 1.6 (0.9-2) SARS-CoV-2, RNA, NAAT (NEGATIVE) 11/11/22 11/12/22 11/12/22 Range/Units 22:32 00:33 00:33 WBC (4.8-10.8) K/ul RBC (4.70-6.10) M/uL Hgb (14.0-18.0) g/dl Hct (42.0-52.0) % MCV (80.0-100.0) fL MCH (25.0-34.0) pg MCHC (32.0-36.0) g/dL RDW Std Deviation (36.4-46.3) fL RDW Coeff of Theresa (11.5-14.5) % Plt Count (130-400) K/uL MPV (9.4-12.4) fL Immature Gran % (Auto) % Neut % (Auto) % Lymph % (Auto) % [place] % (Auto) % Eos % (Auto) % Baso % (Auto) % Neut # (Auto) (1.40-6.50) K/uL Lymph # (Auto) (1.2-3.4) K/uL Sp[place]ding # (Auto) (0.11-0.59) K/uL Eos # (Auto) (0-0.50) K/uL Baso # (Auto) (0-0.2) K/uL Immature Gran # (Auto) (0.01-0.20) K/uL PT 10.7 INR 1.0 APTT 25.9 PTT Ratio 0.9 Sodium (136-145) mmol/L Potassium Chloride (98-107) mmol/L Carbon Dioxide (21-32) mmol/L Anion Gap (3-11) BUN (6-23) mg/dl Creatinine (0.6-1.4) mg/dl Est Cr Clr Drug Dosing ml/min Est GFR ( Amer) ml/min Est GFR (Non-Af Amer) ml/min BUN/Creatinine Ratio (10-20) Glucose (70-99(Fasting)) mg/dl Calcium (8.6-10.3) mg/dl Total Bilirubin (0.2-1.0) mg/dl AST ALT (7-52) U/L Alkaline Phosphatase (34-104) U/L Troponin I High Sens (0-20) pg/ml B-Natriuretic Peptide 37 (0-100) pg/ml Total Protein (6.0-8.3) gm/dl Albumin (3.4-5.0) gm/dl Globulin (2.5-4.0) gm/dl Albumin/Globulin Ratio (0.9-2) SARS-CoV-2, RNA, NAAT NEGATIVE (NEGATIVE) 11/12/22 Range/Units 00:33 WBC (4.8-10.8) K/ul RBC (4.70-6.10) M/uL Hgb (14.0-18.0) g/dl Hct (42.0-52.0) % MCV (80.0-100.0) fL MCH (25.0-34.0) pg MCHC (32.0-36.0) g/dL RDW Std Deviation (36.4-46.3) fL RDW Coeff of Theresa (11.5-14.5) % Plt Count (130-400) K/uL MPV (9.4-12.4) fL Immature Gran % (Auto) % Neut % (Auto) % Lymph % (Auto) % [place] % (Auto) % Eos % (Auto) % Baso % (Auto) % Neut # (Auto) (1.40-6.50) K/uL Lymph # (Auto) (1.2-3.4) K/uL [place] # (Auto) (0.11-0.59) K/uL Eos # (Auto) (0-0.50) K/uL Baso # (Auto) (0-0.2) K/uL Immature Gran # (Auto) (0.01-0.20) K/uL PT INR APTT PTT Ratio Sodium (136-145) mmol/L Potassium 4.9 Chloride (98-107) mmol/L Carbon Dioxide (21-32) mmol/L Anion Gap (3-11) BUN (6-23) mg/dl Creatinine (0.6-1.4) mg/dl Est Cr Clr Drug Dosing ml/min Est GFR ( Amer) ml/min Est GFR (Non-Af Amer) ml/min BUN/Creatinine Ratio (10-20) Glucose (70-99(Fasting)) mg/dl Calcium (8.6-10.3) mg/dl Total Bilirubin (0.2-1.0) mg/dl AST 14 ALT (7-52) U/L Alkaline Phosphatase (34-104) U/L Troponin I High Sens (0-20) pg/ml B-Natriuretic Peptide (0-100) pg/ml Total Protein (6.0-8.3) gm/dl Albumin (3.4-5.0) gm/dl Globulin (2.5-4.0) gm/dl Albumin/Globulin Ratio (0.9-2) SARS-CoV-2, RNA, NAAT (NEGATIVE) Imaging Data My Impression: Upon review of the patient's imaging from earlier today: Venous Doppler of the bilateral lower extremities shows a thrombus within the right gastrocnemius vein which extends to within 1 cm of the right popliteal vein which is considered a DVT. Superficial thrombus within the right small saphenous vein. No DVT of the left lower extremity. X-rays of the right knee have not been read by radiology yet, but per my interpretation show osteoarthritic changes without acute fracture or dislocation. Chest x-ray had not been read by radiology yet, but per my interpretation shows no acute cardiopulmonary etiology. MDM Narrative I examined the patient. I reviewed the patient's outpatient office visit from today as well as his outpatient ultrasound, right knee x-ray, and chest x-ray as summarized above. There is concern that the patient has a PE due to his DVT with increasing shortness of breath and chest discomfort. However, the patient's creatinine level is 2.85 and he is status post renal transplant and CT scan of the chest with contrast cannot be obtained. The patient has a history of recurrent DVTs, but not currently on blood thinners due to his history of 3 retroperitoneal bleeds. IVC filter had been on hold due to history of endocarditis. An IV lock was placed and labs were drawn. The patient was placed on 3 L of oxygen by nasal cannula for comfort. Continuous alarm security or surveillance monitor: Order was placed for continuous alarm security or surveillance monitor. Patient was placed on the alarm security or surveillance monitor and continuous pulse ox. Patient was noted to be in normal sinus rhythm at an initial rate of 80 bpm per my interpretation. EKG was interpreted by myself and Dr. Cason as normal sinus rhythm at 76 bpm with left axis deviation and no acute ST or T wave changes. Hemoglobin stable at 10.5. Platelet count normal. White blood cell count normal. Coags were normal. BUN 76 and creatinine 2.85 which is stable. Glucose 139. CMP otherwise unremarkable. High-sensitivity troponin normal. BNP normal at 37. COVID-negative. I had a meaningful discussion about this patient with Dr. Cason who agrees with my assessment and the treatment plan. We will treat the patient as if he has a presumed PE. Risks versus benefits of anticoagulation were discussed and we feel the benefit outweighs the risks. The risks and benefits were discussed with the patient as well and he agrees. Hemoccult was negative on exam. The patient denies any current symptoms of bleeding. Heparin protocol was started. I spoke with the on-call hospitalist who agreed to admit the patient for further evaluation and treatment. Please refer to their dictation for further details. The patient was admitted in stable condition. Impression & Plan Acute DVT (deep venous thrombosis), CKD (chronic kidney disease) stage 4, GFR 15-29 ml/min, History of kidney transplant, SOB (shortness of breath) Discharge Plan Visit Data Chief Complaint: Referred by Doctor Stated Complaint: REF BY DOC,BLOOD CLOT R KNEE/LUNGS ED Provider: Anibal Cason ED Midlevel Provider: Vangie Viramontes Discharge Problem: Acute DVT (deep venous thrombosis), CKD (chronic kidney disease) stage 4, GFR 15-29 ml/min, History of kidney transplant, SOB (shortness of breath) Patient Disposition: Admitted As Inpatient Condition: Good Discharge Instructions Interventions: ED Discharge Assessment Last Done: 11/12/22 01:39
[2022-11-11] MEDS ORDERED: Heparin IV Adult Wt-Based Standard WITH Bolus Protocol IV STA (22:31)
[2022-11-11] MEDS ORDERED: HEPARIN SOD (PORCINE) 1000 UNIT/ML IV ONE ×2 (22:47→23:30)
[2022-11-11 23:02] LABS: Basophils # (auto) 0.06 K/uL (0-0.2); Basophils % (auto) 0.8 %; Eosinophils # (auto) 0.28 K/uL (0-0.50); Eosinophils % (auto) 3.7 %; Hematocrit (blood only) 31.6 % (42.0-52.0); Hemoglobin 10.5 g/dl (14.0-18.0); Immature Granulocytes # (auto) 0.04 K/uL (0.01-0.20); Immature Granulocytes % (auto) 0.5 %; Lymphocytes # (auto) 0.21 K/uL (1.2-3.4); Lymphocytes % (auto) 2.8 %; Mean Corpuscular Hemoglobin 31.3 pg (25.0-34.0); Mean Corpuscular Hgb Conc 33.2 g/dL (32.0-36.0); Mean Platelet Volume 11.2 fL (9.4-12.4); Monocytes # (auto) 0.64 K/uL (0.11-0.59); Monocytes % (auto) 8.5 %; Neutrophils # (auto) 6.26 K/uL (1.40-6.50); Neutrophils % (auto) 83.7 %; Platelet Count 186 K/uL (130-400); RDW Coefficient of Variation 13.9 % (11.5-14.5); RDW Standard Deviation 46.9 fL (36.4-46.3); Red Blood Count 3.36 M/uL (4.70-6.10); White Blood Count 7.49 K/ul (4.8-10.8)
[2022-11-11 23:33] LABS: Alanine Aminotransferase 14 U/L (7-52); Albumin Globulin Ratio 1.6 (0.9-2); Albumin Level 4.2 gm/dl (3.4-5.0); Alkaline Phosphatase 87 U/L (34-104); Anion Gap 10 (3-11); BUN Creatinine Ratio 26.7 (10-20); Bilirubin,Total 0.6 mg/dl (0.2-1.0); Blood Urea Nitrogen 76 mg/dl (6-23); Calcium 9.5 mg/dl (8.6-10.3); Carbon Dioxide 19 mmol/L (21-32); Chloride 110 mmol/L (98-107); Creatinine Clr Calc Pharmacy 38.4 ml/min; Est GFR (African American) 26.4 ml/min; Est GFR (Non-African American) 22.8 ml/min; Globulin 2.6 gm/dl (2.5-4.0); Glucose 139 mg/dl (70-99(Fasting)); Sodium 139 mmol/L (136-145); Total Protein 6.8 gm/dl (6.0-8.3)
--- NOTE | 2022-11-12 00:45 | History & Physical Report ---
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 Also with SOB progressive over the last 1.5 weeks. DVT, possible PE. Do not want to administer contrast given patient's renal function and transplant -Heparin gtt initiated in the ER, continue per protocol -Patient may benefit from placement of IVC filter given his history of recurrent VTE as well as bleeding complications -Check 2D echo Possible fluid overload contributing to patient's SOB as well given reported history of orthopnea and edema -Lasix 40mg IV x 1 then resume daily PO Lasix 20mg -Supplemental O2 as needed (2) History of kidney transplant: Plan: Renal function near baseline -Continue Prednisone 5mg po daily -Continue CellCelpt 1000mg po BID -Continue Cyclospoirne 100mg po BID (3) Hypertension: Plan: Mildly elevated blood pressure -Monitor (4) Obstructive sleep apnea: Plan: Chronic. Patient has not been using his CPAP at night due to increased SOB -CPAP qHS at [id number] (5) GERD (gastroesophageal reflux disease): Plan: Chronic. Stable -Protonix 40mg po daily while inpatient (6) Urinary retention: Plan: Bladder scan as needed -Continue Flomax -Continue Gemtesa -Continue Finasteride (7) UTI (urinary tract infection): Plan: Recurrent UTIS. Patient admitted to the hospital 10/15/22 with sepsis secondary to urinary source - culture positive for Citrobacter koseri. He is currently being treated with extended Cipro - 500m gpo BID x 14 days followed by 250mg po BID x 28 days -Continue Cipro 250mg po BID History of Present Illness Chief Complaint: DVT Primary Care Provider: Vinicius Ng MD Mr. Prado is a pleasant 62yo male with history of ESRD s/p renal transplant on Prednisone, Cyclosporine and mycophenolate mofetil, recurrent UTIs on Ciprofloxacin, Sarcoidosis. Patient with multiple prior DVTs in the past - he reports at least 6 prior blood clots. He has been treated with Coumadin in the past. Patient also with history of bleeding complications having developed spontaneous retroperitoneal hematoma as well as rectus sheath hematomas. He was evaluated at [facility] for possible placement of an IVC filter but has not had one placed as of yet. Patient reports 3 weeks of increasing lateral right knee pain as well as progressive SOB with both rest and exertion for the last 1.5 weeks. Patient had a routine visit with his PCP today and voiced these complaints. He had a venous duplex ordered which revealed thrombus within the right gastrocnemius vein which extends to within 1 cm of the right popliteal vein. This is considered deep venous thrombus. Also with superficial thrombus int he right small saphenous vein. Due to patient's complex history of multiple VTEs and bleeding it was recommended that he come to the hospital to initiate anticoagulation. Patient does report some orthopnea as well as worsening bilateral LE edema. He has been sleeping upright in his recliner chair and thinks that his swelling may be dependent edema from his legs hanging at night. He denies chest pain or palpitations. No additional complaints at this time In the ER he is afebrile, HD stable. Placed on 3L NC for comfort Allergies Allergy/AdvReac Type Severity Reaction Status Date / Time allopurinol Allergy Unknown Rash Verified 11/11/22 16:12 hydromorphone [From Dilaudid] AdvReac Severe confusion Verified 11/11/22 16:12 Home Medications Medication Instructions Recorded Confirmed Type cholecalciferol (vitamin D3) 25 1,000 units PO QAM 04/24/19 11/11/22 History mcg (1,000 unit) capsule docusate sodium 100 mg capsule 100 mg PO BID PRN Constipation 04/24/19 11/11/22 History (Colace) multivitamin (Daily Multi-Vitamin 1 tab PO QAM 04/24/19 11/11/22 History tablet) tamsulosin 0.4 mg capsule (Flomax) 0.4 mg PO HS 04/24/19 11/11/22 History prednisone 5 mg tablet 5 mg PO QAM 05/29/19 11/11/22 History ferrous sulfate 325 mg (65 mg 325 mg PO BID 08/05/21 11/11/22 History iron) tablet (iron) acetaminophen 500 mg tablet 1,000 mg PO QID PRN Pain 08/24/21 11/11/22 History (Tylenol Extra Strength) duloxetine 60 mg capsule,delayed 60 mg PO QAM #90 caps 11/13/21 11/11/22 Rx release furosemide 40 mg tablet (Lasix) 20 mg PO QAM 12/25/21 11/11/22 History omeprazole 40 mg capsule,delayed 40 mg PO QAM #90 caps 04/27/22 11/11/22 Rx release cyclosporine modified 100 mg 100 mg PO BID #180 caps 08/27/22 11/11/22 Rx capsule mycophenolate mofetil 250 mg 1,000 mg PO BID #180 caps 08/27/22 11/11/22 Rx capsule (CellCept) febuxostat 80 mg tablet (Uloric) 80 mg PO QAM #90 tabs 09/01/22 11/11/22 Rx evolocumab 420 mg/3.5 mL 420 mg (3.5 mL) subcut .ONCE 09/24/22 11/11/22 Rx subcutaneous wearable injector MONTHLY #10.5 mL (Repatha Pushtronex) sildenafil (pulm.hypertension) 20 20 mg PO TID PRN Erectile 10/16/22 11/11/22 History mg tablet Dysfunction ciprofloxacin HCl 250 mg tablet See Rx Instructions .Route 10/17/22 11/11/22 Rx (Cipro) .COMPLEX #112 tabs finasteride 5 mg tablet (Proscar) 5 mg PO QAM #90 tabs 11/04/22 11/11/22 Rx vibegron 75 mg tablet (Gemtesa) 75 mg PO DAILY #90 tabs 11/04/22 11/11/22 Rx gabapentin 300 mg capsule 600 mg PO TID 30 days #540 caps 11/11/22 11/11/22 Rx Past Med/Surg History Medical History Acute dehydration Anemia Aortic valve endocarditis AV fistula LEFT WRIST> NO DIALYSIS CURRENTLY> FISTULA STILL WORKS PER PT Bacteremia Bacteremia due to Escherichia coli BPH (benign prostatic hyperplasia) BPH (benign prostatic hyperplasia) Chronic venous stasis Dehydration Depression Discharge planning issues DVT (deep venous thrombosis) Right- 04/2019 following transplant > Coumadin S/P LEFT LEG SURGERY (EXCISION OF MELANOMA LEFT LEG) 10 YEARS AGO. 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 Chronic renal insufficiency s/p renal transplant - follows with nephro Per 07/17/20 surgeon note: "His transplant surgeons have cleared him to have this (hernia) repaired." GERD (gastroesophageal reflux disease) Gout Gout History of basal cell carcinoma Hyperphosphatemia Hypertension Immunocompromised Immunocompromised Knee contusion Lower extremity edema Metabolic acidosis Metabolic syndrome Multiple pulmonary nodules Nephrolithiasis Obesity Osteoarthritis of left hip Peripheral neuropathy Pulmonary nodule Rectus sheath hematoma Renal transplant recipient Retroperitoneal hematoma Retroperitoneal hematoma Sarcoidosis Sarcoidosis Sepsis Sepsis Septic shock due to urinary tract infection Severe sepsis Small bowel obstruction Supratherapeutic INR Symptomatic anemia Tremor Umbilical hernia UTI (urinary tract infection) Venous insufficiency Venous stasis dermatitis Surgical History H/O colonoscopy History of cardiac cath History of melanoma excision History of renal transplant History of tonsillectomy History of tooth extraction Kidney transplanted Family History Mother Stroke Heart disease Grandmother Cancer Lung disease Denies family history of Ovarian cancer Prostate cancer Colorectal cancer Social History Smoking Status: Never smoker Second Hand Exposure: No; Do You Dip or Chew Tobacco: No; Hx Alcohol Use: No Hx Substance Use: No Preferred Language: Chinese Communication Ability: Effective Visual Impairment: No Limitations Lye Peel Operator Required: No Beliefs That Will Affect Care: None marital status: Current Living Situation: Spouse Current Living Situation Comment: living with . current occupational status: employed current occupation: [employer] How many Children do You have: 1 Other Information That Helps Us Care for You: No Feels Safe at Home: Yes Safety Concerns: Feels Safe At This Time caffeine: Yes Dental Care, Regularly: Yes Seatbelt Use: always Sunscreen Use: Yes Assistive Devices: CPAP and Glasses Review of Systems Review of Systems: All systems reviewed & are unremarkable except as noted in HPI & below Physical Exam Physical Exam: General: patient resting comfortably, NAD, non-toxic in appearance, AA&O x 4 Skin: warm, dry, intact, no rashes or lesions HEENT: NC/AT, PERRL, EOMI, anicteric sclera, conjunctiva without injection, external ear normal to inspection and nontender, nares patent, moist mucus membranes, dentition intact, no oropharyngeal lesions, neck supple, trachea midline, no LAD, no thyromegaly, no JVD Heart: +S1/S2, regular, no m/r/g Lungs: equal air entry bilaterally, no rales/rhonchi/wheezes Abd: +BS, soft, NT/ND, no masses/organomegaly/ascites, transplant right lower abdomen, non-tender Ext: warm, 2+ pulses in UE/LE bilaterally, no clubbing/cyanosis or edema, AV fistula LUE with palpable thrill Neuro: nonfocal, patient AA&O x 4, speech intact, no facial droop, moving all extremities on command with equal strength 5/5 Results & Data Results & Data Vital Signs (Past 12 Hours) Vital Signs Temp Pulse Pulse Resp BP BP Pulse Ox 11/11/22 22:25 72 24 98 11/11/22 23:15 81 16 161/87 H 100 11/11/22 22:42 80 11/11/22 21:05 37.1 C 92 H 20 168/83 H 92 O2 Del Method O2 Flow Rate 11/11/22 22:25 Room Air 11/11/22 23:15 Nasal Cannula 3 11/11/22 22:42 11/11/22 21:05 Room Air Laboratory Results Laboratory Results WBC 7.49 K/ul (4.8-10.8) 11/11/22 22:32 RBC 3.36 M/uL (4.70-6.10) L 11/11/22 22:32 Hgb 10.5 g/dl (14.0-18.0) L 11/11/22 22:32 Hct 31.6 % (42.0-52.0) L 11/11/22 22:32 MCV 94.0 fL (80.0-100.0) 11/11/22 22:32 MCH 31.3 pg (25.0-34.0) 11/11/22 22:32 MCHC 33.2 g/dL (32.0-36.0) 11/11/22 22:32 RDW Std Deviation 46.9 fL (36.4-46.3) H 11/11/22 22:32 RDW Coeff of Theresa 13.9 % (11.5-14.5) 11/11/22 22:32 Plt Count 186 K/uL (130-400) 11/11/22 22:32 MPV 11.2 fL (9.4-12.4) 11/11/22 22:32 Immature Gran % (Auto) 0.5 % 11/11/22 22:32 Neut % (Auto) 83.7 % 11/11/22 22:32 Lymph % (Auto) 2.8 % 11/11/22 22:32 [place] % (Auto) 8.5 % 11/11/22 22:32 Eos % (Auto) 3.7 % 11/11/22 22:32 Baso % (Auto) 0.8 % 11/11/22 22:32 Neut # (Auto) 6.26 K/uL (1.40-6.50) 11/11/22 22:32 Lymph # (Auto) 0.21 K/uL (1.2-3.4) L 11/11/22 22:32 [place] # (Auto) 0.64 K/uL (0.11-0.59) H 11/11/22 22:32 Eos # (Auto) 0.28 K/uL (0-0.50) 11/11/22:32 Baso # (Auto) 0.06 K/uL (0-0.2) 11/11/22 22:32 Immature Gran # (Auto) 0.04 K/uL (0.01-0.20) 11/11/22 22:32 PT 10.7 Seconds (9.0-12.0) 11/12/22 00:33 INR 1.0 (0.9-1.1) 11/12/22 00:33 APTT 25.9 Seconds (21.0-31.0) 11/12/22 00:33 PTT Ratio 0.9 11/12/22 00:33 Sodium 139 mmol/L (136-145) 11/11/22 22:32 Potassium 4.9 mmol/L (3.5-5.1) 11/12/22 00:33 Chloride 110 mmol/L (98-107) H 11/11/22 22:32 Carbon Dioxide 19 mmol/L (21-32) L 11/11/22 22:32 Anion Gap 10 (3-11) 11/11/22 22:32 BUN 76 mg/dl (6-23) H 11/11/22 22:32 Creatinine 2.85 mg/dl (0.6-1.4) H 11/11/22 22:32 Est Cr Clr Drug Dosing 38.4 ml/min 11/11/22 22:32 Est GFR ( Amer) 26.4 ml/min 11/11/22 22:32 Est GFR (Non-Af Amer) 22.8 ml/min 11/11/22 22:32 BUN/Creatinine Ratio 26.7 (10-20) H 11/11/22 22:32 Glucose 139 mg/dl (70-99(Fasting)) H 11/11/22 22:32 Calcium 9.5 mg/dl (8.6-10.3) 11/11/22 22:32 Total Bilirubin 0.6 mg/dl (0.2-1.0) 11/11/22 22:32 AST 14 U/L (13-39) 11/12/22 00:33 ALT 14 U/L (7-52) 11/11/22 22:32 Alkaline Phosphatase 87 U/L (34-104) 11/11/22 22:32 Troponin I High Sens 10.0 pg/ml (0-20) 11/11/22 22:32 B-Natriuretic Peptide 37 pg/ml (0-100) 11/12/22 00:33 Total Protein 6.8 gm/dl (6.0-8.3) 11/11/22 22:32 Albumin 4.2 gm/dl (3.4-5.0) 11/11/22 22:32 Globulin 2.6 gm/dl (2.5-4.0) 11/11/22 22:32 Albumin/Globulin Ratio 1.6 (0.9-2) 11/11/22 22:32 SARS-CoV-2, RNA, NAAT NEGATIVE (NEGATIVE) 11/11/22 22:32 Code Status & VTE Plan VTE Prophylaxis Plan VTE Prophylaxis will be ordered: Yes PG Care Time/CCT Total # of Minutes Spent Total Time Spent with Patient: Total time spent is greater than 50% in coordination of care (as documented) at patient's floor/unit and/or counseling patient: Coding Level of Care Code 27880 INT INP/OBS CARE 3/75MIN Diagnoses Acute DVT (deep venous thrombosis) I82.409 History of kidney transplant Z94.0 Hypertension I10 Hypertension type: essential hypertension Obstructive sleep apnea G47.33 GERD (gastroesophageal reflux disease) K21.9 Esophagitis presence: without esophagitis Urinary retention R33.9 UTI (urinary tract infection) N39.0 (3) Hypertension Hypertension type: essential hypertension Qualified Code(s): I10 - Essential (primary) hypertension (5) GERD (gastroesophageal reflux disease) Esophagitis presence: without esophagitis Qualified Code(s): K21.9 - Gastro- esophageal reflux disease without esophagitis
[2022-11-12] MEDS: HEPARIN SODIUM/DEXTROSE 25,000 UNITS/500 ML BAG IV SCH ×2 (00:58→17:42)
[2022-11-12 01:08] LABS: Potassium 4.9 mmol/L (3.5-5.1)
[2022-11-12 01:36] LABS: Partial Thromboplastin Ratio 0.9; Partial Thromboplastin Time 25.9 Seconds (21.0-31.0); Prothrombin Time 10.7 Seconds (9.0-12.0)
[2022-11-12] MEDS ORDERED: DOCUSATE SODIUM 100 MG CAP PO PRN (01:57)
[2022-11-12] MEDS ORDERED: FUROSEMIDE 40 MG/4 ML VIAL IV ONE (02:15)
--- NOTE | 2022-11-12 07:40 | Hospitalist Progress Note ---
Date of Service November 12, 2022 Assessment & Plan (1) Acute DVT (deep venous thrombosis): Plan: 62 y/o M w/ PmHx DVT on warfarin in the past, taken off after 2 retroperitoneal bleeds, 1 retroperitoneal bleed 2 months after taken off anticoagulation, ESRD s/p renal transplant on prednisone, cyclosporine, mycophenolate mofetil, recurrent UTIs on Ciprofloxacin, sarcoidosis, history of aortic valve endocarditis admitted for repeat DVT. Acute DVT: -Doppler from 11/11/22 showed DVT w/in R gastrocnemius vein which extends to w/in 1cm R popliteal vein. -Started on heparin gtt on admission. -Hx of multiple DVTs on warfarin in the past along with 2 retroperitoneal bleeds while on warfarin and 1 bleed 2 months after stopping anticoagulation. -Hypercoagulable workup negative on past studies. INR at time of retroperitoneal bleed on warfarin therapeutic at 2.7 -Multiple discussions over past year whether to do IVC. Had to reschedule original IVC placement but surgeon decided against, monitor for time being at that time. -History of endocarditis would make IVC risky as additional nidus for infection. -Options for treatment would be anticoagulation with a DOAC vs IVC vs no treatment. -Talked with vascular surgery, Dr. Perkins out until December 07, no indication for IVC unless active bleed. May need to talk to general surgery if anyone capable of IVC placement. -Consulted hematology due to complicated nature of DVT treatment, will appreciate thoughts and recommendations. -Continue to monitor on tele History of kidney transplant: -At baseline creatinine of 2.7-3.1 -Continue prednisone 5mg daily, CellCelpt 1000mg BID, Cyclosporine 100mg BID Obstructive sleep apnea: -Chronic, not been using at night due to increased SoB. -CPAP qHS ordered. GERD: -Continue home protonix 40mg daily while inpatient. Urinary retention: -Continue Flomax, Gemtesa, Finasteride. UTI: -Recurrent UTIS, admitted recently for sepsis secondary to urinary source. Currently finishing 6 week treatment with Cipro 250mg BID. F/E/N/GI: Heart Healthy, dialysis renal diet. DVT Prophylaxis: Treated for DVT w/ heparin gtt currently. Code status: Full code. Dispo: Med/tele (2) History of kidney transplant: (3) Obstructive sleep apnea: (4) Hypertension: (5) GERD (gastroesophageal reflux disease): (6) Urinary retention: (7) UTI (urinary tract infection): (8) Anemia: Admission and Anticipated Discharge Date Admission Date: November 12, 2022 Supervising Physician Co-Signing Physician Notes ATTESTATION I also saw the patient and confirmed bunch portions of the history and exam. I agree with the impression and plan in the resident documentation, and as summarized below. 62-year-old male known to the service from previous admissions with complicated medical history including renal transplant on immunosuppressant therapy, recurrent venous thromboembolism, and history of retroperitoneal bleed (x2) and rectus sheath hematoma both on and off systemic anticoagulation is admitted overnight with a new right lower extremity DVT and probable pulmonary embolism. He is feeling better this morning. The dyspnea is much less. Given the risk of the contrast to his kidneys, he did not have a CT of the chest. He is fairly familiar and knowledgeable with regards to his medical history. He reports that he had been anticoagulated on warfarin for about 12 years at the time of his first retroperitoneal bleed -he cannot recall if he was supratherapeutic at the time; he had a second retroperitoneal bleed as well as a rectus sheath bleed (one of these was while on warfarin, the other off warfarin). There was discussion when he was at [facility] with regards to an IVC filter -in fact, he tells us that he was on the OR schedule for such, but the surgeon was called to another emergency and his case was postponed; the following day, the medical team seeing him at that admission reverse course and decided not to proceed with the filter. He was off anticoagulation when presenting with this present DVT. EXAM 162/95, 70, 18, 36.4, 95% on room air Pleasant alert. Obese. Heart regular Lungs clear with nonlabored respirations DATA Labs Hemoglobin 10.5, platelet count 186 BUN 76, creatinine 2.85 Imaging Ultrasound of the right lower extremity shows a thrombus within the right gastrocnemius vein which extends to within 1 cm of the right popliteal vein. There is also superficial thrombus within the right small saphenous vein. Micro Blood cultures from his previous hospitalization 10/15/2022 showed Citrobacter John in both bottles IMPRESSION & PLAN Acute right lower extremity DVT History of recurrent DVT History of significant spontaneous bleeding, retroperitoneal and rectus sheath Status post renal transplant on immunosuppressive Status post urosepsis, Citrobacter John bacteremia (10/15/2022), thought secondary to prostatitis Complicated situation with no clear correct answer to address his acute right lower extremity DVT. Hesitant to resume warfarin given his history of significant, multiple spontaneous bleeding events. Apixaban may be reasonable -would need to discuss with nephrology -although not clear data in terms of effectiveness given his BMI, and still would be significant bleeding risk Filter would be another option, although note his recent bacteremia Continue heparin drip for now; monitor CBC Consult vascular for potential filter placement Consult hematology for their opinion regarding anticoagulation options We will discuss option of a DOAC with nephrology We will draw blood cultures today Additional per resident documentation Subjective Patient seen at the bedside this morning stating his symptoms since coming in have not worsened. He was able to sleep on the bed without much difficulty with shortness of breath unlike prior sleeping attempts where he had to sleep in a reclining chair sitting upright. Review of Systems Review of Systems: As per HPI. Physical Exam Constitutional: WD/WN, vitals as above Respiratory: normal respiratory effort, lungs clear to auscultation Cardiovascular: RRR, no murmur, no edema Gastrointestinal (Abdomen): normal bowel sounds, soft, nontender, no hepatosplenomegaly Skin: Chronic venous stasis changes to bilateral lower extremities at the shins. Tenderness to palpation at the medial R knee. Psychiatric: A+Ox3, euthymic affect Results & Data Results & Data Vital Signs (Past 12 Hours) Vital Signs Temp Pulse Pulse Pulse Resp BP BP 11/12/22 02:42 77 11/12/22 02:00 11/12/22 02:00 36.4 C L 79 20 141/76 H 11/12/22 01:16 70 16 182/98 H 11/12/22 00:45 75 16 141/72 H 11/11/22 22:25 72 24 11/11/22 23:15 81 16 161/87 H 11/11/22 22:42 80 11/11/22 21:05 37.1 C 92 H 20 168/83 H Pulse Ox O2 Del Method O2 Flow Rate 11/12/22 02:42 11/12/22 02:00 Room Air 11/12/22 02:00 100 Room Air 11/12/22 01:16 100 Nasal Cannula 3 11/12/22 00:45 100 Nasal Cannula 3 11/11/22 22:25 98 Room Air 11/11/22 23:15 100 Nasal Cannula 3 11/11/22 22:42 11/11/22 21:05 92 Room Air Resident Activity Tracking Resident Involvement: Resident Care Provided Care Provided: Adult Hospital Medicine (4) Hypertension Hypertension type: essential hypertension Qualified Code(s): I10 - Essential (primary) hypertension (5) GERD (gastroesophageal reflux disease) Esophagitis presence: without esophagitis Qualified Code(s): K21.9 - Gastro- esophageal reflux disease without esophagitis
[2022-11-12] MEDS: VIBEGRON 75 MG TAB PO SCH (08:09)
[2022-11-12] MEDS: FUROSEMIDE 20 MG TAB PO SCH (08:09)
[2022-11-12] MEDS: FINASTERIDE 5 MG TAB PO SCH (08:09)
[2022-11-12] MEDS: predniSONE 5 MG TAB PO SCH (08:09)
[2022-11-12] MEDS: cycloSPORINE 100 MG CAP PO SCH ×2 (08:10→20:39)
[2022-11-12] MEDS: DULoxetine HCL 60 MG CAP PO SCH (08:10)
[2022-11-12] MEDS: PANTOprazole 40 MG TAB PO SCH (08:10)
[2022-11-12] MEDS: MYCOPHENOLATE MOFETIL 250 MG CAP PO SCH ×2 (08:11→20:38)
[2022-11-12] MEDS: CIPROFLOXACIN 250 MG TAB PO SCH ×2 (08:11→20:40)
[2022-11-12] MEDS: GABAPENTIN 400 MG CAP PO SCH ×3 (09:08→20:39)
[2022-11-12 09:46] LABS: Partial Thromboplastin Ratio 3.3
[2022-11-12 09:51] LABS: Partial Thromboplastin Time 93.7 Seconds (21.0-31.0)
[2022-11-12] MEDS: ACETAMINOPHEN 500 MG TAB PO PRN (12:20)
[2022-11-12 17:02] LABS: Partial Thromboplastin Ratio 1.9
--- NOTE | 2022-11-12 17:47 | Oncology Consultation ---
Date of Consultation November 12, 2022 Assessment & Plan (1) SOB (shortness of breath): (2) Acute DVT (deep venous thrombosis): (3) CKD (chronic kidney disease) stage 4, GFR 15-29 ml/min: (4) History of kidney transplant: (5) Immunocompromised: (6) Anemia: Plan Patient with very complicated past medical history presenting with acute venous thrombosis involving the gastrinomas vein. Also has respiratory symptoms concerning for PE but has not been able to have CTA chest due to renal function. Of note, he had previously been on chronic anticoagulation with Coumadin which had to be discontinued after 2 episodes of retroperitoneal hematoma requiring massive PRBC transfusions (13 units and 9 units respectively) about 1 year ago. -He has significantly high risk of bleeding as well as thrombosis and so this makes a decision on anticoagulation very complicated. Would benefit from IVC filter placement if he does not have PE. -Since CTA cannot be performed due to his current renal function, would recommend considering obtaining ventilation/perfusion scan. If he is found to have High probability for PE, would recommend continuing with therapeutic heparin while closely monitoring hemoglobin/hematocrit and obtain abdominal imaging if baseline hemoglobin/hematocrit declines. -If probability for PE is low on ventilation/perfusion scan, cannot consider IVC filter placement although he could still have PE in the future despite presence of IVC filter. - If he is found to have High probability for PE, would recommend considering discharging him on prophylactic renally dosed low molecular weight heparin with close outpatient monitoring. -Although anemia could be due to renal function, would recommend obtaining iron studies, B12 and folate levels to rule out nutritional component Thank you for this consult. Hematology continue following patient. Please feel free to call if you have any further questions History of Present Illness Reason for Consultation: Right leg DVT Attending Physician: Rolando Willis DO History of Present Illness Mr. Prado is a pleasant 62yo male with history of ESRD s/p renal transplant on Prednisone, Cyclosporine and mycophenolate mofetil, recurrent UTIs on Ciprofloxacin, Sarcoidosis. Patient with multiple prior DVTs . Most recent DVT was about a year ago at which time there was consideration for placement of IVC filter but this was canceled due to concern for increased risk of infection. Patient had previously been on Coumadin but had spontaneous retroperitoneal hematoma x3 in 1 year for which Coumadin had to be discontinued. He indicates that he had been seen by Dr. Patel at [facility] and also another operations business partner at [facility] who obtained hypercoagulable work-up which was negative. He presented with right lower extremity pain, shortness of breath and chest pain of about 1 week duration. Ultrasound obtained by PCP revealed thrombus within the right gastrocnemius vein which extends to within 1 cm of the right popliteal vein. This is considered deep venous thrombus. Also with superficial thrombus in the right small saphenous vein. CTA chest has not been obtained due to renal function Allergies Allergy/AdvReac Type Severity Reaction Status Date / Time allopurinol Allergy Unknown Rash Verified 11/11/22 16:12 hydromorphone [From Dilaudid] AdvReac Severe confusion Verified 11/11/22 16:12 Home Medications Medication Instructions Recorded Confirmed Type cholecalciferol (vitamin D3) 25 1,000 units PO QAM 04/24/19 11/11/22 History mcg (1,000 unit) capsule docusate sodium 100 mg capsule 100 mg PO BID PRN Constipation 04/24/19 11/11/22 History (Colace) multivitamin (Daily Multi-Vitamin 1 tab PO QAM 04/24/19 11/11/22 History tablet) tamsulosin 0.4 mg capsule (Flomax) 0.4 mg PO HS 04/24/19 11/11/22 History prednisone 5 mg tablet 5 mg PO QAM 05/29/19 11/11/22 History ferrous sulfate 325 mg (65 mg 325 mg PO BID 08/05/21 11/11/22 History iron) tablet (iron) acetaminophen 500 mg tablet 1,000 mg PO QID PRN Pain 08/24/21 11/11/22 History (Tylenol Extra Strength) duloxetine 60 mg capsule,delayed 60 mg PO QAM #90 caps 11/13/21 11/11/22 Rx release furosemide 40 mg tablet (Lasix) 20 mg PO QAM 12/25/21 11/11/22 History omeprazole 40 mg capsule,delayed 40 mg PO QAM #90 caps 04/27/22 11/11/22 Rx release cyclosporine modified 100 mg 100 mg PO BID #180 caps 08/27/22 11/11/22 Rx capsule mycophenolate mofetil 250 mg 1,000 mg PO BID #180 caps 08/27/22 11/11/22 Rx capsule (CellCept) febuxostat 80 mg tablet (Uloric) 80 mg PO QAM #90 tabs 09/01/22 11/11/22 Rx evolocumab 420 mg/3.5 mL 420 mg (3.5 mL) subcut .ONCE 09/24/22 11/11/22 Rx subcutaneous wearable injector MONTHLY #10.5 mL (Repatha Pushtronex) sildenafil (pulm.hypertension) 20 20 mg PO TID PRN Erectile 10/16/22 11/11/22 History mg tablet Dysfunction ciprofloxacin HCl 250 mg tablet See Rx Instructions .Route 10/17/22 11/11/22 Rx (Cipro) .COMPLEX #112 tabs finasteride 5 mg tablet (Proscar) 5 mg PO QAM #90 tabs 11/04/22 11/11/22 Rx vibegron 75 mg tablet (Gemtesa) 75 mg PO DAILY #90 tabs 11/04/22 11/11/22 Rx gabapentin 300 mg capsule 600 mg PO TID 30 days #540 caps 11/11/22 11/11/22 Rx Patient History Medical History Acute dehydration Anemia Aortic valve endocarditis AV fistula LEFT WRIST> NO DIALYSIS CURRENTLY> FISTULA STILL WORKS PER PT Bacteremia Bacteremia due to Escherichia coli BPH (benign prostatic hyperplasia) BPH (benign prostatic hyperplasia) Chronic venous stasis Dehydration Depression Discharge planning issues DVT (deep venous thrombosis) Right- 04/2019 following transplant > Coumadin S/P LEFT LEG SURGERY (EXCISION OF MELANOMA LEFT LEG) 10 YEARS AGO. 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 Chronic renal insufficiency s/p renal transplant - follows with nephro Per 07/17/20 surgeon note: "His transplant surgeons have cleared him to have this (hernia) repaired." GERD (gastroesophageal reflux disease) Gout Gout History of basal cell carcinoma Hyperphosphatemia Hypertension Immunocompromised Immunocompromised Knee contusion Lower extremity edema Metabolic acidosis Metabolic syndrome Multiple pulmonary nodules Nephrolithiasis Obesity Osteoarthritis of left hip Peripheral neuropathy Pulmonary nodule Rectus sheath hematoma Renal transplant recipient Retroperitoneal hematoma Retroperitoneal hematoma Sarcoidosis Sarcoidosis Sepsis Sepsis Septic shock due to urinary tract infection Severe sepsis Small bowel obstruction Supratherapeutic INR Symptomatic anemia Tremor Umbilical hernia UTI (urinary tract infection) Venous insufficiency Venous stasis dermatitis Surgical History H/O colonoscopy History of cardiac cath History of melanoma excision History of renal transplant History of tonsillectomy History of tooth extraction Kidney transplanted Family History Mother Stroke Heart disease Grandmother Cancer Lung disease Denies family history of Ovarian cancer Prostate cancer Colorectal cancer Social History Smoking Status: Never smoker Second Hand Exposure: No; Do You Dip or Chew Tobacco: No; Hx Alcohol Use: No Hx Substance Use: No Preferred Language: South African Communication Ability: Effective Visual Impairment: No Limitations Yacht Rigger Required: No Beliefs That Will Affect Care: None marital status: Current Living Situation: Spouse Current Living Situation Comment: living with . current occupational status: employed current occupation: [employer] How many Children do You have: 1 Other Information That Helps Us Care for You: No Feels Safe at Home: Yes Safety Concerns: Feels Safe At This Time caffeine: Yes Dental Care, Regularly: Yes Seatbelt Use: always Sunscreen Use: Yes Assistive Devices: CPAP and Glasses Results & Data Vital Signs (Past 12 Hours) Vital Signs Temp Pulse Pulse Resp BP Pulse Ox O2 Del Method 11/12/22 16:35 36.4 C L 88 18 146/80 H 98 Room Air 11/12/22 15:22 70 11/12/22 11:21 36.4 C L 77 18 162/95 H 95 Room Air 11/12/22 07:00 67 11/12/22 10:09 Room Air 11/12/22 07:27 36.7 C 80 18 160/81 H 97 Room Air (2) Acute DVT (deep venous thrombosis) Affected thrombotic vein of extremity: popliteal DVT location: lower extremity Laterality: right Qualified Code(s): I82.431 - Acute embolism and thrombosis of right popliteal vein
--- NOTE | 2022-11-12 19:23 | Electrocardiogram Report ---
Test Reason : Blood Pressure : / mmHG Vent. Rate : 076 BPM Atrial Rate : 076 BPM P-R Int : 160 ms QRS Dur : 090 ms QT Int : 376 ms P-R-T Axes : 000 -32 026 degrees QTc Int : 423 ms Normal sinus rhythm Left axis deviation Minimal voltage criteria for LVH, may be normal variant Poor R wave progression, consider anterior AL vs. lead placement vs. LVH Abnormal ECG Confirmed by Manuel Sanchez ([id number]) on 11/12/2022 7:23:14 PM Referred By: Vinicius Ng Confirmed By:Anthony Sanchez
--- NOTE | 2022-11-12 19:42 | XCELERA ---
[id number]
[2022-11-12] MEDS: TAMSULOSIN HCL 0.4 MG CAP PO SCH (20:40)
--- NOTE | 2022-11-13 07:21 | Hospitalist Progress Note ---
Date of Service November 13, 2022 Assessment & Plan (1) Acute DVT (deep venous thrombosis): Plan: 62 y/o M w/ PmHx DVT on warfarin in the past, taken off after 2 retroperitoneal bleeds, 1 retroperitoneal bleed 2 months after taken off anticoagulation, ESRD s/p renal transplant on prednisone, cyclosporine, mycophenolate mofetil, recurrent UTIs on Ciprofloxacin, sarcoidosis, history of aortic valve endocarditis admitted for repeat DVT. Acute DVT: -Doppler from 11/11/22 showed DVT w/in R gastrocnemius vein which extends to w/in 1cm R popliteal vein. -Started on heparin gtt on admission. -Hx of multiple DVTs on warfarin in the past along with 2 retroperitoneal bleeds while on warfarin and 1 bleed 2 months after stopping anticoagulation. -Hypercoagulable workup negative on past studies. INR at time of retroperitoneal bleed on warfarin therapeutic at 2.7 -Multiple discussions over past year whether to do IVC. Had to reschedule original IVC placement but surgeon decided against, monitor for time being at that time. -History of endocarditis would make IVC risky as additional nidus for infection. -Options for treatment would be anticoagulation with a DOAC vs IVC vs no treatment. -Talked with vascular surgery, Dr. Perkins out until December 07, no indication for IVC unless active bleed. May need to talk to general surgery if anyone capable of IVC placement. -Consulted hematology due to complicated nature of DVT treatment, will appreciate thoughts and recommendations. -11/13: V/Q scan performed and was read as low probability for PE -Awaiting further input from hematology regarding anticoagulation options -Continue to monitor on tele History of kidney transplant: -At baseline creatinine of 2.7-3.1 -Continue prednisone 5mg daily, CellCelpt 1000mg BID, Cyclosporine 100mg BID Obstructive sleep apnea: -Chronic, not been using at night due to increased SoB. -CPAP qHS ordered. GERD: -Continue home protonix 40mg daily while inpatient. Urinary retention: -Continue Flomax, Gemtesa, Finasteride. UTI: -Recurrent UTIS, admitted recently for sepsis secondary to urinary source. Currently finishing 6 week treatment with Cipro 250mg BID. F/E/N/GI: Heart Healthy, dialysis renal diet. DVT Prophylaxis: Treated for DVT w/ heparin gtt currently. Code status: Full code. Dispo: Med/tele (2) History of kidney transplant: (3) Obstructive sleep apnea: (4) Hypertension: (5) GERD (gastroesophageal reflux disease): (6) Urinary retention: (7) UTI (urinary tract infection): (8) Anemia: Admission and Anticipated Discharge Date Admission Date: November 12, 2022 Supervising Physician Co-Signing Physician Notes Attending attestation Pt seen and examined in concert with Dr. Chacon. In agreement with the documented findings as noted in the resident documentation with any exceptions or additions as noted here. Without acute complaint at bedside. Reviewed current state of care and desired information for decision-making prior to previous. On examination, S1/S2 nl RRR no MCG. CTAB. Abd NT/ND BS+ve Data reviewed: V/Q scan, Hgb 10, Cr 2.57, Iron studies Acute DVT with concern for PE - Hematology consult appreciated - V/Q scan low probability, high risk of bleeding. Discuss with hematology re: appropriate next interventional steps h/o renal transplant - continue present regimen Else see resident documentation as noted. Subjective Patient seen and evaluated at bedside this morning. Patient feels well and has no acute complaints. He does note that his breathing doesn't feel normal, but also notes that it isn't that bothersome. Denies chest pain or other symptoms at this time abdominal pain, nausea, vomiting, lightheadedness, dizziness, and diarrhea. Review of Systems Review of Systems: See HPI Physical Exam Physical Exam: Constitutional: well-appearing, no acute distress HEENT: NCAT, no conjunctival injection CV: regular rhythm, no murmur appreciated, extremities well-perfused Resp: CTABL, no wheezes/rales/rhonchi appreciated, no increased work of breathing Neuro: alert, oriented, no focal neurologic deficit appreciated Results & Data Results & Data Vital Signs (Past 12 Hours) Vital Signs Temp Pulse Pulse Resp BP Pulse Ox O2 Del Method 11/13/22 05:59 62 11/13/22 03:53 36.4 C L 75 18 139/77 96 Room Air 11/12/22 22:00 69 11/12/22 23:00 36.6 C 72 18 163/76 H 95 Room Air 11/12/22 22:00 Room Air Resident Activity Tracking Resident Involvement: Resident Care Provided Care Provided: Adult Hospital Medicine (1) Acute DVT (deep venous thrombosis) Affected thrombotic vein of extremity: popliteal DVT location: lower extremity Laterality: right Qualified Code(s): I82.431 - Acute embolism and thrombosis of right popliteal vein (4) Hypertension Hypertension type: essential hypertension Qualified Code(s): I10 - Essential (primary) hypertension (5) GERD (gastroesophageal reflux disease) Esophagitis presence: without esophagitis Qualified Code(s): K21.9 - Gastro- esophageal reflux disease without esophagitis
[2022-11-13 07:48] LABS: Basophils # (auto) 0.04 K/uL (0-0.2); Basophils % (auto) 0.8 %; Eosinophils # (auto) 0.33 K/uL (0-0.50); Eosinophils % (auto) 6.6 %; Immature Granulocytes # (auto) 0.03 K/uL (0.01-0.20); Immature Granulocytes % (auto) 0.6 %; Lymphocytes # (auto) 0.47 K/uL (1.2-3.4); Lymphocytes % (auto) 9.4 %; Mean Corpuscular Hemoglobin 31.2 pg (25.0-34.0); Mean Corpuscular Hgb Conc 33.3 g/dL (32.0-36.0); Mean Corpuscular Volume 93.5 fL (80.0-100.0); Mean Platelet Volume 10.8 fL (9.4-12.4); Monocytes # (auto) 0.88 K/uL (0.11-0.59); Monocytes % (auto) 17.6 %; Neutrophils # (auto) 3.25 K/uL (1.40-6.50); Platelet Count 177 K/uL (130-400); RDW Coefficient of Variation 13.4 % (11.5-14.5); RDW Standard Deviation 45.6 fL (36.4-46.3); Red Blood Count 3.21 M/uL (4.70-6.10)
[2022-11-13 07:53] LABS: BUN Creatinine Ratio 24.5 (10-20); Calcium 8.8 mg/dl (8.6-10.3); Creatinine Clr Calc Pharmacy 42.1 ml/min; Est GFR (African American) 29.9 ml/min; Est GFR (Non-African American) 25.8 ml/min; Potassium 4.2 mmol/L (3.5-5.1)
[2022-11-13 08:23] LABS: Partial Thromboplastin Ratio 2.9
[2022-11-13] MEDS: CIPROFLOXACIN 250 MG TAB PO SCH ×2 (08:33→20:25)
[2022-11-13] MEDS: cycloSPORINE 100 MG CAP PO SCH ×2 (08:34→20:25)
[2022-11-13] MEDS: FUROSEMIDE 20 MG TAB PO SCH (08:35)
[2022-11-13] MEDS: DULoxetine HCL 60 MG CAP PO SCH (08:35)
[2022-11-13] MEDS: FINASTERIDE 5 MG TAB PO SCH (08:35)
[2022-11-13] MEDS: GABAPENTIN 400 MG CAP PO SCH ×3 (08:36→20:25)
[2022-11-13] MEDS: MYCOPHENOLATE MOFETIL 250 MG CAP PO SCH ×2 (08:37→20:25)
[2022-11-13] MEDS: PANTOprazole 40 MG TAB PO SCH (08:37)
[2022-11-13] MEDS: predniSONE 5 MG TAB PO SCH (08:38)
[2022-11-13] MEDS: VIBEGRON 75 MG TAB PO SCH (08:38)
[2022-11-13] MEDS: HEPARIN SODIUM/DEXTROSE 25,000 UNITS/500 ML BAG IV SCH (09:37)
[2022-11-13 09:50] LABS: Partial Thromboplastin Time 81.5 Seconds (21.0-31.0)
[2022-11-13 10:33] LABS: Ferritin 251.5 ng/ml (8-388)
--- NOTE | 2022-11-13 11:24 | Nuclear Medicine Report ---
NM pul perfusion CLINICAL HISTORY: c/f PE Technique: Perfusion imaging was performed in multiple projections after the intravenous injection of 5.10 mCi of Tc-99m labeled macroaggregated albumin (MAA). Comparison: None available at the time of this dictation. FINDINGS/IMPRESSION: Homogeneous perfusion was seen bilaterally apart from a defect in the posterior segment of the right upper lobe is unchanged from a matched defect seen on prior. Low probability of pulmonary embolism. ACT 112: Negative or not required by law. Electronically signed by: Mega Pan M.D. 11/13/2022 11:22 AM
[2022-11-13 15:40] LABS: Partial Thromboplastin Ratio 2.4
[2022-11-13 15:49] LABS: Partial Thromboplastin Time 68.6 Seconds (21.0-31.0)
[2022-11-13] MEDS: FEBUXOSTAT 80 MG PO SCH (15:57)
[2022-11-13] MEDS: TAMSULOSIN HCL 0.4 MG CAP PO SCH (20:26)
[2022-11-13 23:08] LABS: Partial Thromboplastin Ratio 2.2
[2022-11-13 23:11] LABS: Partial Thromboplastin Time 62.9 Seconds (21.0-31.0)
[2022-11-14] MEDS: HEPARIN SODIUM/DEXTROSE 25,000 UNITS/500 ML BAG IV SCH (03:16)
[2022-11-14 06:51] LABS: Hematocrit (blood only) 32.5 % (42.0-52.0); Hemoglobin 10.8 g/dl (14.0-18.0); Mean Corpuscular Hemoglobin 31.3 pg (25.0-34.0); Mean Corpuscular Hgb Conc 33.2 g/dL (32.0-36.0); Mean Corpuscular Volume 94.2 fL (80.0-100.0); Mean Platelet Volume 11.1 fL (9.4-12.4); Platelet Count 191 K/uL (130-400); RDW Coefficient of Variation 13.6 % (11.5-14.5); RDW Standard Deviation 46.4 fL (36.4-46.3); Red Blood Count 3.45 M/uL (4.70-6.10); White Blood Count 5.55 K/ul (4.8-10.8)
--- NOTE | 2022-11-14 07:06 | Hospitalist Progress Note ---
Date of Service November 14, 2022 Assessment & Plan (1) Acute DVT (deep venous thrombosis): Plan: 62 y/o M w/ PmHx DVT on warfarin in the past, taken off after 2 retroperitoneal bleeds, 1 retroperitoneal bleed 2 months after taken off anticoagulation, ESRD s/p renal transplant on prednisone, cyclosporine, mycophenolate mofetil, recurrent UTIs on Ciprofloxacin, sarcoidosis, history of aortic valve endocarditis admitted for repeat DVT. Acute DVT: -Doppler from 11/11/22 showed DVT w/in R gastrocnemius vein which extends to w/in 1cm R popliteal vein. -Started on heparin gtt on admission. -Hx of multiple DVTs on warfarin in the past along with 2 retroperitoneal bleeds while on warfarin and 1 bleed 2 months after stopping anticoagulation. -Hypercoagulable workup negative on past studies. INR at time of retroperitoneal bleed on warfarin therapeutic at 2.7 -Multiple discussions over past year whether to do IVC. Had to reschedule original IVC placement but surgeon decided against, monitor for time being at that time. -History of endocarditis would make IVC risky as additional nidus for infection. -Options for treatment would be anticoagulation with a DOAC vs IVC vs no treatment. -Talked with vascular surgery, Dr. Perkins out until December 07, no indication for IVC unless active bleed. May need to talk to general surgery if anyone capable of IVC placement. -Consulted hematology due to complicated nature of DVT treatment, will appreciate thoughts and recommendations. -11/13: V/Q scan performed and was read as low probability for PE -Awaiting further input from hematology regarding anticoagulation options -Continue to monitor on tele History of kidney transplant: -At baseline creatinine of 2.7-3.1 -Continue prednisone 5mg daily, CellCelpt 1000mg BID, Cyclosporine 100mg BID Obstructive sleep apnea: -Chronic, not been using at night due to increased SoB. -CPAP qHS ordered. GERD: -Continue home protonix 40mg daily while inpatient. Urinary retention: -Continue Flomax, Gemtesa, Finasteride. UTI: -Recurrent UTIS, admitted recently for sepsis secondary to urinary source. Currently finishing 6 week treatment with Cipro 250mg BID. F/E/N/GI: Heart Healthy, dialysis renal diet. DVT Prophylaxis: Treated for DVT w/ heparin gtt currently. Code status: Full code. Dispo: Med/tele (2) History of kidney transplant: (3) Obstructive sleep apnea: (4) Hypertension: (5) GERD (gastroesophageal reflux disease): (6) Urinary retention: (7) UTI (urinary tract infection): (8) Anemia: Admission and Anticipated Discharge Date Admission Date: November 12, 2022 Subjective Patient seen and evaluated at bedside this morning. Patient feels well and has no acute complaints. Denies chest pain or other symptoms at this time including abdominal pain, nausea, vomiting, lightheadedness, dizziness, and diarrhea. Review of Systems Review of Systems: See HPI Physical Exam Physical Exam: Constitutional: well-appearing, no acute distress HEENT: NCAT, no conjunctival injection CV: regular rhythm, no murmur appreciated, extremities well-perfused Resp: CTABL, no wheezes/rales/rhonchi appreciated, no increased work of breathing Neuro: alert, oriented, no focal neurologic deficit appreciated Results & Data Results & Data Vital Signs (Past 12 Hours) Vital Signs Temp Pulse Pulse Resp BP Pulse Ox O2 Del Method 11/14/22 05:11 36.6 C 68 18 153/85 H 96 Room Air 11/13/22 22:28 66 11/13/22 23:34 36.9 C 67 16 155/88 H 95 Room Air 11/13/22 21:55 Room Air 11/13/22 19:20 36.8 C 73 18 139/79 98 Room Air (1) Acute DVT (deep venous thrombosis) Affected thrombotic vein of extremity: popliteal DVT location: lower extremity Laterality: right Qualified Code(s): I82.431 - Acute embolism and thrombosis of right popliteal vein (4) Hypertension Hypertension type: essential hypertension Qualified Code(s): I10 - Essential (primary) hypertension (5) GERD (gastroesophageal reflux disease) Esophagitis presence: without esophagitis Qualified Code(s): K21.9 - Gastro- esophageal reflux disease without esophagitis
[2022-11-14 07:12] LABS: Calcium 9.5 mg/dl (8.6-10.3); Est GFR (African American) 32.4 ml/min; Est GFR (Non-African American) 27.9 ml/min
[2022-11-14 07:57] LABS: Partial Thromboplastin Ratio 2.2
--- NOTE | 2022-11-14 08:11 | Oncology Consultation ---
Date of Consultation November 14, 2022 History of Present Illness Attending Physician: Gian Weaver MD Allergies Allergy/AdvReac Type Severity Reaction Status Date / Time allopurinol Allergy Unknown Rash Verified 11/11/22 16:12 hydromorphone [From Dilaudid] AdvReac Severe confusion Verified 11/11/22 16:12 Home Medications Medication Instructions Recorded Confirmed Type cholecalciferol (vitamin D3) 25 1,000 units PO QAM 04/24/19 11/11/22 History mcg (1,000 unit) capsule docusate sodium 100 mg capsule 100 mg PO BID PRN Constipation 04/24/19 11/11/22 History (Colace) multivitamin (Daily Multi-Vitamin 1 tab PO QAM 04/24/19 11/11/22 History tablet) tamsulosin 0.4 mg capsule (Flomax) 0.4 mg PO HS 04/24/19 11/11/22 History prednisone 5 mg tablet 5 mg PO QAM 05/29/19 11/11/22 History ferrous sulfate 325 mg (65 mg 325 mg PO BID 08/05/21 11/11/22 History iron) tablet (iron) acetaminophen 500 mg tablet 1,000 mg PO QID PRN Pain 08/24/21 11/11/22 History (Tylenol Extra Strength) duloxetine 60 mg capsule,delayed 60 mg PO QAM #90 caps 11/13/21 11/11/22 Rx release furosemide 40 mg tablet (Lasix) 20 mg PO QAM 12/25/21 11/11/22 History omeprazole 40 mg capsule,delayed 40 mg PO QAM #90 caps 04/27/22 11/11/22 Rx release cyclosporine modified 100 mg 100 mg PO BID #180 caps 08/27/22 11/11/22 Rx capsule mycophenolate mofetil 250 mg 1,000 mg PO BID #180 caps 08/27/22 11/11/22 Rx capsule (CellCept) febuxostat 80 mg tablet (Uloric) 80 mg PO QAM #90 tabs 09/01/22 11/11/22 Rx evolocumab 420 mg/3.5 mL 420 mg (3.5 mL) subcut .ONCE 09/24/22 11/11/22 Rx subcutaneous wearable injector MONTHLY #10.5 mL (Repatha Pushtronex) sildenafil (pulm.hypertension) 20 20 mg PO TID PRN Erectile 10/16/22 11/11/22 History mg tablet Dysfunction ciprofloxacin HCl 250 mg tablet See Rx Instructions .Route 10/17/22 11/11/22 Rx (Cipro) .COMPLEX #112 tabs finasteride 5 mg tablet (Proscar) 5 mg PO QAM #90 tabs 11/04/22 11/11/22 Rx vibegron 75 mg tablet (Gemtesa) 75 mg PO DAILY #90 tabs 11/04/22 11/11/22 Rx gabapentin 300 mg capsule 600 mg PO TID 30 days #540 caps 11/11/22 11/11/22 Rx Patient History Medical History Acute dehydration Anemia Aortic valve endocarditis AV fistula LEFT WRIST> NO DIALYSIS CURRENTLY> FISTULA STILL WORKS PER PT Bacteremia Bacteremia due to Escherichia coli BPH (benign prostatic hyperplasia) BPH (benign prostatic hyperplasia) Chronic venous stasis Dehydration Depression Discharge planning issues DVT (deep venous thrombosis) Right- 04/2019 following transplant > Coumadin S/P LEFT LEG SURGERY (EXCISION OF MELANOMA LEFT LEG) 10 YEARS AGO. 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 Chronic renal insufficiency s/p renal transplant - follows with nephro Per 07/17/20 surgeon note: "His transplant surgeons have cleared him to have this (hernia) repaired." GERD (gastroesophageal reflux disease) Gout Gout History of basal cell carcinoma Hyperphosphatemia Hypertension Immunocompromised Immunocompromised Knee contusion Lower extremity edema Metabolic acidosis Metabolic syndrome Multiple pulmonary nodules Nephrolithiasis Obesity Osteoarthritis of left hip Peripheral neuropathy Pulmonary nodule Rectus sheath hematoma Renal transplant recipient Retroperitoneal hematoma Retroperitoneal hematoma Sarcoidosis Sarcoidosis Sepsis Sepsis Septic shock due to urinary tract infection Severe sepsis Small bowel obstruction Supratherapeutic INR Symptomatic anemia Tremor Umbilical hernia UTI (urinary tract infection) Venous insufficiency Venous stasis dermatitis Surgical History H/O colonoscopy History of cardiac cath History of melanoma excision History of renal transplant History of tonsillectomy History of tooth extraction Kidney transplanted Family History Mother Stroke Heart disease Grandmother Cancer Lung disease Denies family history of Ovarian cancer Prostate cancer Colorectal cancer Social History Smoking Status: Never smoker Second Hand Exposure: No; Do You Dip or Chew Tobacco: No; Hx Alcohol Use: No Hx Substance Use: No Preferred Language: Jordanian Communication Ability: Effective Visual Impairment: No Limitations Business Management Analyst Required: No Beliefs That Will Affect Care: None marital status: Current Living Situation: Spouse Current Living Situation Comment: living with . current occupational status: employed current occupation: [employer] How many Children do You have: 1 Other Information That Helps Us Care for You: No Feels Safe at Home: Yes Safety Concerns: Feels Safe At This Time caffeine: Yes Dental Care, Regularly: Yes Seatbelt Use: always Sunscreen Use: Yes Assistive Devices: None Results & Data Vital Signs (Past 12 Hours) Vital Signs Temp Pulse Pulse Resp BP Pulse Ox O2 Del Method 11/14/22 07:00 36.8 C 70 18 143/84 H Room Air 11/14/22 07:10 90 11/14/22 05:11 36.6 C 68 18 153/85 H 96 Room Air 11/13/22 22:28 66 11/13/22 23:34 36.9 C 67 16 155/88 H 95 Room Air 11/13/22 21:55 Room Air
[2022-11-14 08:13] LABS: Partial Thromboplastin Time 63.3 Seconds (21.0-31.0)
--- NOTE | 2022-11-14 09:22 | Progress Note ---
Date of Service November 14, 2022 Assessment & Plan (1) Acute DVT (deep venous thrombosis): Affected thrombotic vein of extremity: popliteal DVT location: lower extremity Laterality: right Qualified Code(s): I82.431 - Acute embolism and thrombosis of right popliteal vein (2) CKD (chronic kidney disease) stage 4, GFR 15-29 ml/min: (3) Immunocompromised: (4) History of kidney transplant: Plan Pleasant gentleman with history of recurrent DVT previously on Coumadin which had to be discontinued due to spontaneous retroperitoneal bleeding. Presented with right lower extremity pain with ultrasound revealing thrombus within right gastrocnemius vein extending to within 1 cm of the right popliteal vein. He also complained of chest pain but could not have CTA chest due to renal disease. VQ scan however revealed low probability for PE -I discussed options with patient including observation versus therapeutic anticoagulation versus prophylactic anticoagulation. Given extremely high risk of bleeding, would not recommend prophylactic anticoagulation. Clot is small and a muscular vein clot which is sometimes not even treated with anti coagulation. However, since he is symptomatic and high risk for recurrent thrombosis would be reasonable to treat with prophylactic low molecular weight heparin SQ 30 mg daily given creatinine clearance of about 30ml/min. Would recommend rechecking hemoglobin in about 1 to 2 weeks after discharge. I will schedule him to be seen in hematology clinic in about 2 to 4 weeks for follow-up Admission and Anticipated Discharge Date Admission Date: November 12, 2022 Subjective No new issues. Remains on therapeutic unfractionated heparin with hemoglobin stable. VQ scan showed low probability for PE Results & Data Vital Signs (Past 12 Hours) Vital Signs Temp Pulse Pulse Resp BP Pulse Ox O2 Del Method 11/14/22 07:00 36.8 C 70 18 143/84 H Room Air 11/14/22 07:10 90 11/14/22 05:11 36.6 C 68 18 153/85 H 96 Room Air 11/13/22 22:28 66 11/13/22 23:34 36.9 C 67 16 155/88 H 95 Room Air 11/13/22 21:55 Room Air
[2022-11-14] MEDS: GABAPENTIN 400 MG CAP PO SCH (09:26)
[2022-11-14] MEDS: predniSONE 5 MG TAB PO SCH (09:26)
[2022-11-14] MEDS: DULoxetine HCL 60 MG CAP PO SCH (09:26)
[2022-11-14] MEDS: MYCOPHENOLATE MOFETIL 250 MG CAP PO SCH (09:27)
[2022-11-14] MEDS: FUROSEMIDE 20 MG TAB PO SCH (09:27)
[2022-11-14] MEDS: FINASTERIDE 5 MG TAB PO SCH (09:27)
[2022-11-14] MEDS: VIBEGRON 75 MG TAB PO SCH (09:27)
[2022-11-14] MEDS: CIPROFLOXACIN 250 MG TAB PO SCH (09:27)
[2022-11-14] MEDS: cycloSPORINE 100 MG CAP PO SCH (09:27)
[2022-11-14] MEDS: FEBUXOSTAT 80 MG PO SCH (09:28)
[2022-11-14] MEDS: PANTOprazole 40 MG TAB PO SCH (09:33)
[2022-11-14] MEDS: ACETAMINOPHEN 500 MG TAB PO PRN (09:34)
--- NOTE | 2022-11-14 15:07 | Discharge Summary ---
Date of Service November 14, 2022 Admission HPI Per Admitting Provider Mr. Prado is a pleasant 62yo male with history of ESRD s/p renal transplant on Prednisone, Cyclosporine and mycophenolate mofetil, recurrent UTIs on Ciprofloxacin, Sarcoidosis. Patient with multiple prior DVTs in the past - he reports at least 6 prior blood clots. He has been treated with Coumadin in the past. Patient also with history of bleeding complications having developed spontaneous retroperitoneal hematoma as well as rectus sheath hematomas. He was evaluated at [facility] for possible placement of an IVC filter but has not had one placed as of yet. Patient reports 3 weeks of increasing lateral right knee pain as well as progressive SOB with both rest and exertion for the last 1.5 weeks. Patient had a routine visit with his PCP today and voiced these complaints. He had a venous duplex ordered which revealed thrombus within the right gastrocnemius vein which extends to within 1 cm of the right popliteal vein. This is considered deep venous thrombus. Also with superficial thrombus int he right small saphenous vein. Due to patient's complex history of multiple VTEs and bleeding it was recommended that he come to the hospital to initiate anticoagulation. Patient does report some orthopnea as well as worsening bilateral LE edema. He has been sleeping upright in his recliner chair and thinks that his swelling may be dependent edema from his legs hanging at night. He denies chest pain or palpitations. No additional complaints at this time In the ER he is afebrile, HD stable. Placed on 3L NC for comfort Principal Diagnosis DVT Discharge Exam Constitutional: well-appearing, no acute distress HEENT: NCAT, no conjunctival injection CV: regular rhythm, no murmur appreciated, extremities well-perfused Resp: CTABL, no wheezes/rales/rhonchi appreciated, no increased work of breathing Neuro: alert, oriented, no focal neurologic deficit appreciated Discharge Data Allergies Allergy/AdvReac Type Severity Reaction Status Date / Time allopurinol Allergy Unknown Rash Verified 11/11/22 16:12 hydromorphone [From Dilaudid] AdvReac Severe confusion Verified 11/11/22 16:12 Consultations 11/12/22 14:09 Consult Hematology Routine Hospital Course (1) Acute DVT (deep venous thrombosis): 62 y/o M w/ PmHx DVT on warfarin in the past, taken off after 2 retroperitoneal bleeds, 1 retroperitoneal bleed 2 months after taken off anticoagulation, ESRD s/p renal transplant on prednisone, cyclosporine, mycophenolate mofetil, recurrent UTIs on Ciprofloxacin, sarcoidosis, history of aortic valve endocarditis admitted for repeat DVT. Acute DVT: -Doppler from 11/11/22 showed DVT w/in R gastrocnemius vein which extends to w/in 1cm R popliteal vein. -Started on heparin gtt on admission. -Hx of multiple DVTs on warfarin in the past along with 2 retroperitoneal bleeds while on warfarin and 1 bleed 2 months after stopping anticoagulation. -Hypercoagulable workup negative on past studies. INR at time of retroperitoneal bleed on warfarin therapeutic at 2.7 -Multiple discussions over past year whether to do IVC. Had to reschedule original IVC placement but surgeon decided against, monitor for time being at that time. -History of endocarditis would make IVC risky as additional nidus for infection. -Options for treatment would be anticoagulation with a DOAC vs IVC vs no treatment. -Talked with vascular surgery, Dr. Perkins out until December 07, no indication for IVC unless active bleed. May need to talk to general surgery if anyone capable of IVC placement. -Consulted hematology due to complicated nature of DVT treatment, will appreciate thoughts and recommendations. -11/13: V/Q scan performed and was read as low probability for PE -treat with prophylactic low molecular weight heparin SQ 30 mg daily given creatinine clearance of about 30ml/min -recommend rechecking hemoglobin in about 1 to 2 weeks after discharge -hematology clinic in about 2 to 4 weeks for follow-up History of kidney transplant: -At baseline creatinine of 2.7-3.1 -Continue prednisone 5mg daily, CellCept 1000mg BID, Cyclosporine 100mg BID Obstructive sleep apnea: -Chronic, not been using at night due to increased SoB. -CPAP qHS GERD: -Continue home Protonix 40mg daily Urinary retention: -Continue Flomax, Gemtesa, Finasteride. UTI: -Recurrent UTIS, admitted recently for sepsis secondary to urinary source. Currently finishing 6 week treatment with Cipro 250mg BID. Dispo: [place] home (2) History of kidney transplant: (3) Obstructive sleep apnea: (4) GERD (gastroesophageal reflux disease): (5) Urinary retention: (6) UTI (urinary tract infection): Total Time Total Time Spent Total Time Spent (In Minutes): See attending attestation Discharge Plan Discharge Items Patient Disposition: Home - Self-Care Reason For Visit: DVT, SOB Discharge Diagnosis: DVT Condition on Discharge: Good Activity: Per Instructions section Non-emergency contact: Primary Care Provider and Oncologist Call non-emergency contact if: you have any medication questions and your symptoms worsen Follow-up/Referrals: Vinicius Ng MD [Primary Care Provider] - 11/20/22 3:00 pm Diet: Regular Addtl Attending Provider Instructions: You were admitted to [facility] due to progressive shortness of breath and subsequent findings of a nonocclusive DVT in your right lower extremity. You were started on intravenous heparin for treatment of your DVT and hematology was consulted for recommendations regarding anticoagulation in the setting of your previous history of complicated bleeds. Hematology recommended that since you are at high risk for recurrence of blood clots, it is reasonable to start you on prophylactic Lovenox 30 mg subcutaneously daily. This medication has been sent to your preferred pharmacy. It is recommended that you follow-up in the hematology clinic in 2 to 4 weeks for follow-up. Please follow-up with your primary care provider as well to check your hemoglobin levels in 1 to 2 weeks after your discharge. With regards to your shortness of breath, given your history of kidney transplant and current kidney function it was not advisable to obtain a CT scan of your chest to definitively rule out a pulmonary embolism. However, we did obtain a ventilationperfusion scan, which helps to stratify the probability of a pulmonary embolism. Your perfusion scan resulted as low probability of pulmonary embolism. However, as we discussed, this does not definitively rule out the possibility that you may have had a small pulmonary embolism. Nonetheless, your respiratory symptoms have resolved and you show no signs of pulmonary complications. If you develop any chest pain, recurrent/worsening shortness of breath, dizziness, lightheadedness, bloody or dark stools, bloody vomiting, or any other signs that concern you for possible bleeding, please return to the hospital for reevaluation. Please continue to take all your other medications as prescribed. Pending Studies at Discharge: No Stand-Alone Forms: My [facility] [employer], Smoking Cessation Medications and DC Order Prescriptions: New enoxaparin [Lovenox] 30 mg/0.3 mL syringe 30 mg subcut DAILY 30 Days Qty: 9 0RF Continued omeprazole 40 mg capsule,delayed release(DR/EC) 40 mg PO QAM Qty: 90 3RF mycophenolate mofetil [CellCept] 250 mg capsule 1,000 mg PO BID Qty: 180 3RF cyclosporine modified 100 mg capsule 100 mg PO BID Qty: 180 3RF febuxostat [Uloric] 80 mg tablet 80 mg PO QAM Qty: 90 0RF Repatha Pushtronex 420 mg/3.5 mL wearable injector 420 mg subcut .ONCE MONTHLY Qty: 10.5 1RF tamsulosin [Flomax] 0.4 mg capsule 0.4 mg PO HS docusate sodium [Colace] 100 mg capsule 100 mg PO BID PRN (Reason: Constipation) multivitamin [Daily Multi-Vitamin] tablet 1 tab PO QAM cholecalciferol (vitamin D3) 1,000 unit capsule 1,000 units PO QAM prednisone 5 mg tablet 5 mg PO QAM gabapentin 300 mg capsule 600 mg PO TID 30 Days Qty: 540 0RF Rx Instructions: patient reports taking reduced dose of 600mg TID. Gemtesa 75 mg tablet 75 mg PO DAILY Qty: 90 3RF finasteride [Proscar] 5 mg tablet 5 mg PO QAM Qty: 90 3RF Hold Instructions: Home Medication placed on hold at Doctor's office duloxetine 60 mg capsule,delayed release(DR/EC) 60 mg PO QAM Qty: 90 3RF ferrous sulfate [iron] 325 mg (65 mg iron) Tablet 325 mg PO BID acetaminophen [Tylenol Extra Strength] 500 mg Tablet 1,000 mg PO QID PRN (Reason: Pain) furosemide [Lasix] 40 mg tablet 20 mg PO QAM Rx Instructions: 20mg daily. May take up to 40mg daily if needed for edema sildenafil (pulm.hypertension) 20 mg Tablet 20 mg PO TID PRN (Reason: Erectile Dysfunction) Rx Instructions: Take 1 hour before planned stimulation on an empty stomach. Can take up to 5 tabs (100mg) at 1 time. [Prescribed by urology] ciprofloxacin HCl [Cipro] 250 mg tablet See Rx Instructions .ROUTE .COMPLEX Qty: 112 0RF Rx Instructions: 14 days of cipro 500mg ([id number]) BID. after that, 28 days of cipro 250mg BID. Discharge Orders: Discharge Order (Routine); Ordered 11/14/22 Ordered By: Yevgeniy Hagan Admission Data Admit Date/Time: 11/12/22 00:43 Attending Provider: Gian Weaver Admit Provider: Aicha Nava Primary Care Provider: Vinicius Ng Other Providers: Jerald Ramos ; Sima Nova Other Interventions: Discharge Summary Assessment (RN) Last Done: 11/14/22 15:07 Supervising Physician Co-Signing Physician Notes Attending attestation Pt seen and examined in concert with Dr. Krueger. In agreement with the documented findings as noted in the resident documentation with any exceptions or additions as noted here. Improving shortness of breath without stigmata of bleeding reported. On examination, S1/S2 nl RRR no MCG. CTAB. Abd NT/ND BS+ve Acute DVT with h/o spontaneous bleed - hematology consult - will transition from heparin drip to lovenox SQ per hematology recommendation and then plan for transition to apixaban 2.5mg at heme f/u h/o renal transplant - baseline Cr at present, regimen as noted FARNAZ - encourage CPAP adherence Else see resident documentation as noted. Total attending physician time spent with this patient's care on the day of discharge: 35 minutes. Resident Activity Tracking Resident Involvement: Resident Care Provided Care Provided: Adult Hospital Medicine
== END 2022-11-14 16:43 | disposition home or self-care (01) | DRG 300 ==
LOC: ED 21:03 → SUATTDRO 11-12 00:43 → 2N 11-12 00:43

== ENCOUNTER 2024-02-13 19:49 | Inpatient (IN) ==
--- NOTE | 2024-02-13 20:27 | Emergency Department Note ---
Impression & Plan Sepsis, CKD (chronic kidney disease) stage 4, GFR 15-29 ml/min, Immunocompromised, History of kidney transplant, Complicated urinary tract infection ED Provider Note NAME: NAN MONTE AGE: 63 SEX: M : 1960 ARRIVES VIA: Walk-In INFORMANT: Patient ED PROVIDER(S): Jr Conner MD CHIEF COMPLAINT: Sepsis PLAN: Disposition: Admit MEDICAL DECISION MAKING: The patient is a pleasant 63-year-old gentleman with a past medical history of CKD with history of failing renal transplant on Prograf and mycophenolate, chronic anticoagulation, hypertension, hyperlipidemia, restrictive lung disease, sarcoid who presents to the emergency department via walk-in code by son for evaluation of acute onset of rigors/chills with urinary frequency and burning that began around 2 PM this afternoon. Patient reports that he is concerned that he may be septic as this has happened before. He denies any cough, congestion, chest pain, shortness of breath. Denies any known sick contacts. On evaluation the patient is uncomfortable, rigorous with temperature in triage 37.0 however then becoming febrile to 37.9 in the room. Heart rate is in the 110s and blood pressure initially 180s/80s but improving to the 120s/60s following gentle IV fluid hydration and IV APAP. He appears clinically dry. He has chronic bilateral lower extremity edema with venous stasis skin changes without overt erythema warmth or tenderness. Abdomen is nondistended, nontender. EKG without overt acute ischemia. CXR negative for acute cardiopulmonary process per my personal preliminary review/interpretation. WBC 12K with neutrophil predominance but no left shift. H/H similar to prior. Platelets within normal limits. Chemistry without metabolic acidosis. Creatinine is 3.5 similar to prior values though on the upper end of prior values in the setting of CKD. Magnesium 1.4 with IV repletion initiated. LFTs unremarkable. High-sensitivity troponin 11.1, within normal limits. Procalcitonin is not elevated. Respiratory BioFire is pending. Urinalysis is pending. CT of the chest and abdomen pelvis were ordered due to the patient immunocompromise status and septic presentation. IV fluid hydration was administered with caution with 500 cc of normal saline x 2 ordered and 30 cc/kg of IV fluids deferred given the patient's CKD and risk of fluid overload. Review of the patient's prior cultures does show he frequently grows Citrobacter koseri which is pansensitive. However empiric treatment initiated with cefepime and daptomycin at this time given immune compromised status. Case was discussed with Dr. Pizarro, [facility] hospitalist, who will evaluate the patient for admission. CT of the chest and pelvis finalized and no acute findings are identified. UA discussed with infection with 4+ bacteria and WBCs. Of note, patient also has a history of ESBL E. coli in 2021 and so coverage additionally broadened with ertapenem. Further management per admitting team. Triage Nursing notes reviewed and agree them. Prior/external medical records reviewed Vital Signs: reviewed Differential diagnosis: Sepsis, UTI, pneumonia, metabolic, electrolyte abnormalities, cardiac sources, intracerebral event, toxicologic, neurologic, as well as other pathologies. ER treatment provided: See below. Diagnostics interpreted by me: ECG: Sinus tachycardia with fusion complexes, 111bpm, incomplete right bundle- branch block, left anterior fascicular block, LVH, no overt ST ovation or depression, QTc 454, QRS 116. Cardiac Monitoring: An order for continuous cardiac monitoring was placed and demonstrated Sinus tachycardia with fusion complexes, 111bpm, incomplete right bundle-branch block. Laboratory studies: See below Imaging studies: See below Consultation(s): Case was discussed with Dr. Pizarro, [facility] hospitalist, who will evaluate the patient for admission. HPI: The patient is a pleasant 63-year-old gentleman with a past medical history of CKD with history of failing renal transplant on Prograf and mycophenolate, chronic anticoagulation, hypertension, hyperlipidemia, restrictive lung disease, sarcoid who presents to the emergency department via walk-in code by son for evaluation of acute onset of rigors/chills with urinary frequency and burning that began around 2 PM this afternoon. Patient reports that he is concerned that he may be septic as this has happened before. He denies any cough, congestion, chest pain, shortness of breath. Denies any known sick contacts. ROS: See above HPI for pertinent positives & negatives. A total of 10 systems reviewed and were otherwise negative. VITALS:See Below PHYSICAL EXAMINATION: GENERAL: Awake, alert, ill-appearing, in no distress HENT: Normocephalic, atraumatic. Oropharynx with dry mucous membranes and otherwise unremarkable. EYES: Normal conjunctiva. Sclera non-icteric. NECK: Supple. No nuchal rigidity. FROM. No JVD. RESPIRATORY: Clear to auscultation. CARDIAC: Tachycardic rate, normal rhythm. Extremities warm and well perfused. Pulses equal. ABDOMEN: Soft, non-distended. No tenderness to palpation. No rebound or guarding. No masses. MUSCULOSKELETAL: Chest examination reveals no tenderness. The back is symmetrical on inspection without obvious abnormality. There is no CVA tenderness to palpation. No joint edema. LOWER EXTREMITIES: Calves are equal size bilaterally and non-tender. Chronic bilateral lower extremity edema with venous stasis skin changes without overt erythema warmth or tenderness. NEURO: Normal sensorium. No sensory or motor deficits noted. SKIN: No rash or jaundice noted. ED COURSE: Critical Care: I have personally spent greater than 55 minutes of critical care time in the direct management of this patient. This includes bedside care, interpretation of diagnostic studies, and testing, discussion with consultants, patient, and family members, and other required patient management activities. This 55 minutes is in excess of all separately billable procedures. Jr Conner MD Past Med/Surg History Problem List (Updated 02/14/24 @ 02:56 by Jr Conner MD) Complicated urinary tract infection (Acute) History of kidney transplant (Acute) Sepsis (Acute) Chronic anticoagulation currently on lovenox 30mg daily Knee pain Edema Urinary urgency Bacteremia Sepsis (Acute) UTI (urinary tract infection), bacterial Statin intolerance Restrictive lung disease Metabolic acidosis Erectile dysfunction Immunocompromised (Acute) Elevated PSA CKD (chronic kidney disease) stage 4, GFR 15-29 ml/min (Acute) Retroperitoneal hematoma AV fistula LEFT WRIST> NO DIALYSIS CURRENTLY> FISTULA STILL WORKS PER PT GERD (gastroesophageal reflux disease) Obstructive sleep apnea (Chronic) Hyperlipidemia (Acute) Hypertension (Chronic) Medical History FARNAZ (obstructive sleep apnea) Chronic kidney disease, stage 4 (severe) Erectile dysfunction Chronic anticoagulation Limb alert care status AV fistula SOB (shortness of breath) Urinary retention Bacteremia due to Escherichia coli Septic shock due to urinary tract infection Anemia Tremor Aortic valve endocarditis Osteoarthritis of left hip Metabolic syndrome Pulmonary nodule Dyslipidemia Encephalopathy Supratherapeutic INR GERD (gastroesophageal reflux disease) Small bowel obstruction Epigastric hernia Umbilical hernia 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 Immunocompromised Chronic venous stasis BPH (benign prostatic hyperplasia) Depression Lower extremity edema Venous stasis dermatitis DVT (deep venous thrombosis) History of basal cell carcinoma Multiple pulmonary nodules Nephrolithiasis Peripheral neuropathy Venous insufficiency Sarcoidosis Hypertension Obesity Gout Surgical History History of surgery on right wrist History of cardiac cath Kidney transplanted H/O colonoscopy History of tooth extraction History of tonsillectomy History of melanoma excision Family History Mother Stroke Heart disease Grandmother Cancer Lung disease Denies family history of Ovarian cancer Prostate cancer Colorectal cancer Social History (Updated 01/17/24 @ 12:47 by Zaida Mendez LPN) Smoking Status: Never smoker Second Hand Exposure: Yes (hx as child); Do You Dip or Chew Tobacco: No; Hx Alcohol Use: No Hx Substance Use: No Preferred Language: Kittitian Communication Ability: Effective Visual Impairment: No Limitations Hearing Ability: Normal Precision Layout Worker Required: No Beliefs That Will Affect Care: None marital status: Current Living Situation: Spouse Current Living Situation Comment: living with . current occupational status: employed current occupation: [employer] How many Children do You have: 1 Other Information That Helps Us Care for You: No Feels Safe at Home: Yes Diet: low salt caffeine: Yes (1-2 iced tea daily) Dental Care, Regularly: Yes Physical Activity Frequency: Does not Exercise Seatbelt Use: always Sunscreen Use: Yes Do you think of yourself as: straight/heterosexual Gender Identity: Male Assistive Devices: CPAP and Glasses Allergies Allergies Allergy/AdvReac Type Severity Reaction Status Date / Time allopurinol Allergy Unknown Rash Verified 01/17/24 12:45 hydromorphone [From Dilaudid] AdvReac Severe confusion Verified 01/17/24 12:45 Home Meds Home Medications Medication Instructions Recorded Confirmed cholecalciferol (vitamin D3) 25 1,000 units PO QAM 04/24/19 01/17/24 mcg (1,000 unit) capsule docusate sodium 100 mg capsule 100 mg PO BID PRN Constipation 04/24/19 01/17/24 (Colace) multivitamin (Daily Multi-Vitamin 1 tab PO QAM 04/24/19 01/17/24 tablet) ferrous sulfate 325 mg (65 mg 325 mg PO BID 08/05/21 01/17/24 iron) tablet (iron) acetaminophen 500 mg tablet 1,000 mg PO QID PRN Pain 08/24/21 01/17/24 (Tylenol Extra Strength) enoxaparin 30 mg/0.3 mL 30 mg subcut DAILY 02/23/23 01/17/24 subcutaneous syringe (Lovenox) Previous Rx's Medication Instructions Recorded mycophenolate mofetil 250 mg 1,000 mg (4 x 250 mg) PO BID #180 08/27/22 capsule (CellCept) caps omeprazole 40 mg capsule,delayed 40 mg PO QAM #90 caps 06/03/23 release prednisone 5 mg tablet 5 mg PO QAM #90 tabs 08/11/23 tamsulosin 0.4 mg capsule (Flomax) 0.4 mg PO HS #90 caps 08/11/23 evolocumab 420 mg/3.5 mL 420 mg (3.5 mL) subcut .ONCE 08/17/23 subcutaneous wearable injector MONTHLY #10.5 mL (Repatha Pushtronex) tadalafil 20 mg tablet (Cialis) 20 mg PO DAILY PRN sexual activity 08/17/23 #5 tabs furosemide 40 mg tablet (Lasix) 20 mg (1/2 x 40 mg) PO QAM #30 tabs 09/03/23 cyclosporine modified 100 mg 100 mg PO BID #180 caps 09/30/23 capsule peg [id number] [id number] See Rx Instructions PO .COMPLEX #2 11/18/23 178.7-7.3-0.5-1.12-0.9 gram oral mL soln (Suflave) febuxostat 80 mg tablet (Uloric) 80 mg PO QAM #90 tabs 11/29/23 duloxetine 60 mg capsule,delayed 60 mg PO QAM #90 caps 12/13/23 release finasteride 5 mg tablet (Proscar) 5 mg PO QAM #90 tabs 12/22/23 gabapentin 300 mg capsule 600 mg (2 x 300 mg) PO TID 90 days 12/24/23 #540 caps losartan 50 mg tablet 50 mg PO QAM #90 tabs 01/18/24 vibegron 75 mg tablet (Gemtesa) 75 mg PO DAILY #90 tabs 09/11/24 Results & Data (ED) Vital Signs Vital Signs - 24 hr 02/13/24 19:53 02/13/24 20:32 02/13/24 20:46 Temperature 37.0 C Temperature Source Oral Pulse Rate 118 H 120 H 107 H Pulse Rate [Apical] Respiratory Rate 18 18 Respiratory Effort / Characteristics Non-Labored Spontaneous Respiratory Depth Normal Respiratory Pattern Regular Blood Pressure 189/88 H Blood Pressure [Right Arm] Blood Pressure Mean 121 Blood Pressure Mean [Right Arm] Blood Pressure Position Sitting Pulse Oximetry 93 94 Oxygen Delivery Method Room Air Room Air Sepsis Recent Fever Within 48 Hours No Sepsis New/Unexplained Change in Mental Status N/A Sepsis Action Taken by Nursing No Action Required 02/13/24 20:46 02/13/24 21:00 02/13/24 22:14 Temperature 37.9 C H 37.3 C Temperature Source Oral Oral Pulse Rate Pulse Rate [Apical] 107 H 116 H 118 H Respiratory Rate 18 24 16 Respiratory Effort / Characteristics Moaning Respiratory Depth Respiratory Pattern Blood Pressure Blood Pressure [Right Arm] 186/105 H 127/67 135/77 Blood Pressure Mean Blood Pressure Mean [Right Arm] 132 87 96 Blood Pressure Position Pulse Oximetry 94 92 94 Oxygen Delivery Method Room Air Room Air Room Air Sepsis Recent Fever Within 48 Hours Sepsis New/Unexplained Change in Mental Status Sepsis Action Taken by Nursing 02/13/24 22:30 Temperature Temperature Source Pulse Rate Pulse Rate [Apical] 108 H Respiratory Rate 22 Respiratory Effort / Characteristics Respiratory Depth Respiratory Pattern Blood Pressure Blood Pressure [Right Arm] 117/77 Blood Pressure Mean Blood Pressure Mean [Right Arm] 90 Blood Pressure Position Pulse Oximetry 94 Oxygen Delivery Method Room Air Sepsis Recent Fever Within 48 Hours Sepsis New/Unexplained Change in Mental Status Sepsis Action Taken by Nursing Laboratory Data Attestation: I reviewed the patient's lab results. 02/13/24 20:30 02/13/24 20:30 Lab Results 02/13/24 02/13/24 Range/Units 20:30 20:45 WBC 12.06 H (4.8-10.8) K/ul RBC 3.88 L (4.70-6.10) M/uL Hgb 11.8 L (14.0-18.0) g/dl Hct 37.4 L (42.0-52.0) % MCV 96.4 (80.0-100.0) fL MCH 30.4 (25.0-34.0) pg MCHC 31.6 L (32.0-36.0) g/dL RDW Std Deviation 45.6 (36.4-46.3) fL RDW Coeff of Theresa 13.0 (11.5-14.5) % Plt Count 200 (130-400) K/uL MPV 10.7 (9.4-12.4) fL Immature Gran % (Auto) 0.4 % Neut % (Auto) 91.7 % Lymph % (Auto) 3.1 % Wise % (Auto) 3.3 % Eos % (Auto) 1.2 % Baso % (Auto) 0.3 % Neut # (Auto) 11.06 H (1.40-6.50) K/uL Lymph # (Auto) 0.37 L (1.20-3.40) K/uL Wise # (Auto) 0.40 (0.11-0.59) K/uL Eos # (Auto) 0.14 (0.00-0.50) K/uL Baso # (Auto) 0.04 (0.00-0.20) K/uL Immature Gran # (Auto) 0.05 (0.01-0.20) K/uL RBC Morphology Unremarkable PT 10.7 (9.0-12.0) Seconds INR 1.0 (0.9-1.1) Sodium 138 (136-145) mmol/L Potassium 4.7 (3.5-5.1) mmol/L Chloride 103 (98-107) mmol/L Carbon Dioxide 23 (21-32) mmol/L Anion Gap 12 H (3-11) BUN 76 H (6-23) mg/dl Creatinine 3.59 H (0.6-1.4) mg/dl Est Cr Clr Drug Dosing Not Reportable Est GFR ( Amer) 19.8 ml/min Est GFR (Non-Af Amer) 17.1 ml/min BUN/Creatinine Ratio 21.2 H (10-20) Glucose 112 H (70-99(Fasting)) mg/dl Lactate 2.0 (0.4-2.0) mmol/L Calcium 10.0 (8.6-10.3) mg/dl Magnesium 1.4 L (1.7-2.4) mg/dl Total Bilirubin 0.6 (0.2-1.0) mg/dl Direct Bilirubin 0.2 (0-0.2) mg/dl AST 10 L (13-39) U/L ALT 12 (7-52) U/L Alkaline Phosphatase 81 (34-104) U/L Troponin I High Sens 11.1 (0-20) pg/ml Total Protein 7.1 (6.0-8.3) gm/dl Albumin 4.6 (3.4-5.0) gm/dl Lipase 56 (11-82) U/L Procalcitonin 0.08 (0-0.5) ng/ml Adenovirus (PCR) Not Detected (NotDetected) B. pertussis DNA (PCR) Not Detected (NotDetected) B.parapertussis DNA PCR Not Detected (NotDetected) C. pneumoniae DNA (PCR) Not Detected (NotDetected) Coronavirus OC43 (PCR) Not Detected (NotDetected) Coronavirus HKU1 (PCR) Not Detected (NotDetected) Coronavirus 229E (PCR) Not Detected (NotDetected) SARS-CoV-2 (PCR) Not Detected (NotDetected) Coronavirus NL63 (PCR) Not Detected (NotDetected) Human Metapneumovir PCR Not Detected (NotDetected) Influenza Type A (PCR) Not Detected (NotDetected) Influenza Type B (PCR) Not Detected (NotDetected) M. pneumoniae (PCR) Not Detected (NotDetected) Parainfluenza 1 (PCR) Not Detected (NotDetected) Parainfluenza 2 (PCR) Not Detected (NotDetected) Parainfluenza 3 (PCR) Not Detected (NotDetected) Parainfluenza 4 (PCR) Not Detected (NotDetected) RSV (PCR) Not Detected (NotDetected) Entero/Rhino (PCR) Not Detected (NotDetected) Administered Medications Sodium Chloride (Nss) 500 mls @ 125 mls/hr IV .Q4H [facility] Stop: 03/14/24 21:29 Last Admin: 02/14/24 01:57 Dose: 125 mls/hr Documented By: Infusion: 02/14/24 01:57 Dose: Infused Documented By: Admin: 02/13/24 22:11 Dose: 125 mls/hr Documented By: JOHN Sodium Chloride (Nss) 1,000 mls @ 999 mls/hr IV .Q1H1M ONE Stop: 02/14/24 03:00 Last Infusion: 02/14/24 02:16 Dose: Infused Documented By: Admin: 02/14/24 01:37 Dose: 999 mls/hr Documented By: JOHN Albumin Human (Albumin 25%) 25 gm in 100 mls @ 50 mls/hr IV Q2H [facility] Stop: 02/14/24 06:14 Last Admin: 02/14/24 02:25 Dose: 50 mls/hr Documented By: JOHN Norepinephrine Bitartrate (Levophed/D5w) 4 mg in 250 mls @ 24.638 mls/hr IV .Q10H9M [facility]; Protocol Stop: 03/15/24 02:29 Last Admin: 02/14/24 02:39 Dose: 0.05 mcg/kg/min, 24.6 mls/hr Documented By: DRAKE Co-signed By: JOHN Discontinued Medications Sodium Chloride (Nss) 500 mls @ 999 mls/hr IV .Q31M ONE Stop: 02/13/24 20:56 Last Infusion: 02/13/24 21:17 Dose: Infused Documented By: Admin: 02/13/24 20:43 Dose: 999 mls/hr Documented By: JOHN Acetaminophen (Ofirmev) 1,000 mg in 100 mls @ 400 mls/hr IV NOW STA Stop: 02/13/24 21:25 Last Infusion: 02/13/24 21:30 Dose: Infused Documented By: Admin: 02/13/24 21:17 Dose: 400 mls/hr Documented By: JOHN Magnesium Sulfate/Dextrose (Magnesium Sulfate / D5w) 1 gm in 100 mls @ 100 mls/hr IV NOW STA Stop: 02/13/24 22:11 Last Infusion: 02/13/24 22:30 Dose: Infused Documented By: Admin: 02/13/24 21:19 Dose: 100 mls/hr Documented By: JOHN Cefepime HCl (Maxipime) 2,000 mg in 20 mls @ 5 mls/min IV NOW STA; Protocol Stop: 02/13/24 21:23 Last Admin: 02/13/24 21:36 Dose: 5 mls/min Documented By: JOHN Daptomycin 450 mg/ Syringe 9 mls @ 4.5 mls/min IV NOW STA; Protocol Stop: 02/13/24 21:38 Last Admin: 02/13/24 23:27 Dose: 4.5 mls/min Documented By: DRAKE Ertapenem (Invanz) 10 mls @ 2 mls/min IV NOW STA Stop: 02/13/24 22:31 Last Admin: 02/13/24 23:48 Dose: 2 mls/min Documented By: JOHN Sodium Chloride (Nss) 1,000 mls @ 999 mls/hr IV .Q1H1M ONE Stop: 02/14/24 01:15 Last Infusion: 02/14/24 01:34 Dose: Infused Documented By: Admin: 02/14/24 00:53 Dose: 999 mls/hr Documented By: JOHN Acetaminophen (Ofirmev) 1,000 mg in 100 mls @ 400 mls/hr IV NOW STA Stop: 02/14/24 00:57 Last Infusion: 02/14/24 01:18 Dose: Infused Documented By: Admin: 02/14/24 00:53 Dose: 400 mls/hr Documented By: JOHN Lorazepam (Lorazepam 2 Mg/1 Ml Vial) 0.5 mg IV NOW STA Stop: 02/13/24 23:44 Last Admin: 02/13/24 23:59 Dose: 0.5 mg Documented By: JOHN Morphine Sulfate (Morphine Sulfate 2 Mg/Ml Carp) 1 mg IV NOW STA Stop: 02/14/24 01:08 Last Admin: 02/14/24 01:17 Dose: 1 mg Documented By: JOHN Sodium Bicarbonate (Sodium Bicarb 8.4% Inj 50 Meq/50 Ml Syr) 50 meq IV NOW STA Stop: 02/14/24 02:20 Last Admin: 02/14/24 02:22 Dose: 50 meq Documented By: JOHN Imaging Data Radiologist's Impression: Abdomen/Pelvis CT 02/13/24 21:23 Exam(s): CT ABDOMEN + PELVIS Without Contrast EXAM: CT Abdomen and Pelvis Without Intravenous Contrast CLINICAL HISTORY: sepsis, h/o renal transplant. TECHNIQUE: Axial computed tomography images of the abdomen and pelvis without intravenous contrast. CTDI is 24.07 mGy and DLP is 1631.83 mGy-cm. Automated exposure control was utilized for the study. A dose lowering technique was utilized adhering to the principles of ALARA. COMPARISON: Noncontrast CT abdomen and pelvis 08/23/2022 FINDINGS: Lung bases: Diffuse pulmonary nodules noted throughout the lung bases, similar to the previous examination. No consolidation. ABDOMEN: Liver: Similar contours to the liver. No definite focal abnormality. Gallbladder and bile ducts: Unremarkable. No calcified stones. No ductal dilation. Pancreas: Unremarkable. No ductal dilation. Spleen: Unremarkable. No splenomegaly. Adrenals: Unremarkable. No mass. Kidneys and ureters: The [place] kidneys remain markedly atrophic in appearance with irregular hyperdense perinephric fat stranding. No alteration in morphology. No new hydronephrosis or obstructive ureteral stones in the [place] kidneys. A right transplant kidney is identified with similar mild perinephric fat stranding. No hydronephrosis or obstructive ureteral stones. Stomach and bowel: Mild retained oral contents noted in the stomach. No gastric mucosal thickening. No evidence for bowel obstruction. Evaluation of the bowel mucosa is slightly limited without contrast; however, no definite focal asymmetry suggested. Mild to moderate stool burden. No diverticulitis. PELVIS: Appendix: A normal caliber appendix is noted along the posterior aspect of the cecum. Bladder: Mucosal prominence of the bladder is nonspecific with near- complete decompression. No stones. Reproductive: The prostate gland remains enlarged with somewhat less prominent periprostatic fat stranding. Subperitoneal space: The previously noted presacral edema has resolved. ABDOMEN and PELVIS: Intraperitoneal space: Unremarkable. No free air. No significant fluid collection. Bones/joints: No acute fracture. No dislocation. Soft tissues: Fat-containing umbilical hernia is larger in size when compared to the previous examination. No fat stranding or fluid in the herniated fat. Vasculature: Unremarkable. No abdominal aortic aneurysm. Lymph nodes: Unremarkable. No enlarged lymph nodes. IMPRESSION: No significant abnormality definitively identified within the unenhanced abdomen or pelvis to suggest the cause of the patient's reported sepsis. Incidental chronic findings, as noted above, similar to the previous examination. Periprostatic fat stranding is minimally improved from the previous examination. The previously noted presacral edema has resolved. Electronically signed by: Kai Williamson MD 02/13/24 23:[address] 02/13/24 21:23 Exam(s): CT CHEST Without Contrast EXAM: CT Chest Without Intravenous Contrast CLINICAL HISTORY: sepsis, h/o renal transplant. TECHNIQUE: Axial computed tomography images of the chest without intravenous contrast. CTDI is 24.07 mGy and DLP is 1631.83 mGy-cm. Automated exposure control was utilized for the study. A dose lowering technique was utilized adhering to the principles of ALARA. COMPARISON: CT chest without contrast dated 09/29/2023. FINDINGS: Lungs: Diffuse abnormal pulmonary nodules noted throughout the lungs, similar in morphology and appearance to the previous examination. Again, there is heterogeneous mixed calcified and noncalcified nodules noted internally. No appreciable interval increase in size of the nodules noted. No consolidation. Pleural space: Unremarkable. No pneumothorax. No significant effusion. Heart: The cardiac chambers are upper normal limits with at least moderate coronary artery calcification. No significant pericardial effusion. Bones/joints: No acute osseous abnormality. Stable chronic anterior wedging at several thoracic vertebral bodies resulting in accentuated kyphosis, stable. No dislocation. Soft tissues: Unremarkable. Vasculature: The thoracic aorta demonstrates some atherosclerotic calcification without dilation. Lymph nodes: Nonspecific paratracheal lymph nodes and subcarinal lymph nodes. No significant lymphadenopathy. IMPRESSION: No significant abnormality identified within the chest/thorax to suggest the patient's reported sepsis. Diffuse pulmonary nodules and calcified lymph nodes, stable in appearance from the previous examination. Electronically signed by: Kai Williamson MD 02/13/24 23:45 PM Discharge Plan Visit Data Chief Complaint: Urinary Symptoms Stated Complaint: UTI, POSSIBLE SEPSIS ED Provider: Jr Conner Discharge Problem: Sepsis, CKD (chronic kidney disease) stage 4, GFR 15-29 ml/min, Immunocompromised, History of kidney transplant, Complicated urinary tract infection Patient Disposition: Admitted As Inpatient Discharge Instructions Interventions: ED Discharge Assessment Last Done: 02/13/24 23:59 Discharge Problem: Sepsis Qualifiers: Sepsis type: sepsis due to unspecified organism Sepsis acute organ dysfunction status: unspecified Qualified Code(s): A41.9 - Sepsis, unspecified organism
[2024-02-13] MEDS: SODIUM CHLORIDE 0.9% 500 ML IV ONE (20:43)
[2024-02-13 20:44] LABS: Hematocrit (blood only) 37.4 % (42.0-52.0); Hemoglobin 11.8 g/dl (14.0-18.0); Mean Corpuscular Hemoglobin 30.4 pg (25.0-34.0); Mean Corpuscular Hgb Conc 31.6 g/dL (32.0-36.0); Mean Corpuscular Volume 96.4 fL (80.0-100.0); Mean Platelet Volume 10.7 fL (9.4-12.4); Platelet Count 200 K/uL (130-400); RDW Standard Deviation 45.6 fL (36.4-46.3); Red Blood Count 3.88 M/uL (4.70-6.10); White Blood Count 12.06 K/ul (4.8-10.8)
[2024-02-13 21:00] LABS: Alanine Aminotransferase 12 U/L (7-52); Albumin Level 4.6 gm/dl (3.4-5.0); Alkaline Phosphatase 81 U/L (34-104); Anion Gap 12 (3-11); Aspartate Aminotransferase 10 U/L (13-39); BUN Creatinine Ratio 21.2 (10-20); Bilirubin Direct 0.2 mg/dl (0-0.2); Bilirubin,Total 0.6 mg/dl (0.2-1.0); Blood Urea Nitrogen 76 mg/dl (6-23); Carbon Dioxide 23 mmol/L (21-32); Chloride 103 mmol/L (98-107); Est GFR (African American) 19.8 ml/min; Est GFR (Non-African American) 17.1 ml/min; Glucose 112 mg/dl (70-99(Fasting)); Lipase 56 U/L (11-82); Magnesium 1.4 mg/dl (1.7-2.4); Potassium 4.7 mmol/L (3.5-5.1); Sodium 138 mmol/L (136-145); Total Protein 7.1 gm/dl (6.0-8.3)
[2024-02-13 21:08] LABS: Troponin I High Sensitivity 11.1 pg/ml (0-20)
[2024-02-13 21:13] LABS: Basophils # (auto) 0.04 K/uL (0.00-0.20); Basophils % (auto) 0.3 %; Eosinophils # (auto) 0.14 K/uL (0.00-0.50); Eosinophils % (auto) 1.2 %; Immature Granulocytes # (auto) 0.05 K/uL (0.01-0.20); Immature Granulocytes % (auto) 0.4 %; Lymphocytes # (auto) 0.37 K/uL (1.20-3.40); Lymphocytes % (auto) 3.1 %; Monocytes % (auto) 3.3 %; Neutrophils # (auto) 11.06 K/uL (1.40-6.50); Neutrophils % (auto) 91.7 %; Prothrombin Time 10.7 Seconds (9.0-12.0); RBC Morphology Unremarkable
[2024-02-13] MEDS: ACETAMINOPHEN 1,000 MG/100 ML VIAL IV STA (21:17)
[2024-02-13] MEDS: MAGNESIUM SULFATE / D5W 1 GM/100 ML BAG IV STA (21:19)
[2024-02-13] MEDS: CEFEPIME 2,000 MG/20 ML VIAL IV STA (21:36)
[2024-02-13] MEDS: SODIUM CHLORIDE 0.9% 500 ML IV SCH (22:11)
[2024-02-13 22:15] LABS: Adenovirus PCR Not Detected (NotDetected); Bordetella parapertussis PCR Not Detected (NotDetected); Bordetella pertussis PCR Not Detected (NotDetected); Chlamydia pneumoniae PCR Not Detected (NotDetected); Coronavirus 229E PCR Not Detected (NotDetected); Coronavirus CoV-2 (COVID19)PCR Not Detected (NotDetected); Coronavirus HKU1 PCR Not Detected (NotDetected); Coronavirus NL63 PCR Not Detected (NotDetected); Coronavirus OC43PCR Not Detected (NotDetected); Human Metapneumovirus PCR Not Detected (NotDetected); Influenza A PCR Not Detected (NotDetected); Influenza B PCR Not Detected (NotDetected); Mycoplasma pneumoniae PCR Not Detected (NotDetected); Parainfluenza Virus 1 PCR Not Detected (NotDetected); Parainfluenza Virus 2 PCR Not Detected (NotDetected); Parainfluenza Virus 3 PCR Not Detected (NotDetected); Parainfluenza Virus 4 PCR Not Detected (NotDetected); Respiratory Syncytial VirusPCR Not Detected (NotDetected); Rhinovirus/Enterovirus PCR Not Detected (NotDetected)
--- NOTE | 2024-02-13 22:47 | History & Physical Report ---
Date of Service February 13, 2024 Assessment & Plan (1) Septic shock: (2) Complicated urinary tract infection: (3) History of kidney transplant: (4) Chronic anticoagulation: (5) Immunocompromised: (6) CKD (chronic kidney disease) stage 4, GFR 15-29 ml/min: (7) GERD (gastroesophageal reflux disease): (8) Obstructive sleep apnea: (9) Hyperlipidemia: (10) Hypertension: Plan Septic shock/complicated UTI/admit to ICU- Follow urine culture and sensitivity History of pansensitive Citrobacter koseri in urine and blood History of ESBL E. coli Admit on daptomycin IV and ertapenem IV Status post 3.5 L normal saline boluses in the ED Continue Levophed and titrate per protocol Stress dose steroids, hydrocortisone 100 mg IV every 8 hours Hold all oral medications for now except cyclosporine and mycophenolate Consult utility pipe layer team Renal transplant status/ acute kidney injury superimposed on CKD stage IV- Continue cyclosporine 100 mg p.o. twice daily, and mycophenolate 1000 mg p.o. twice daily. Holding oral prednisone, and placed on stress dose hydrocortisone IV Creatinine 3.59, with base 2.91 Follow laboratory serially in the a.m. Consult nephrology Dr. Wilkins Hypomagnesemia- Magnesium 1.4 upon admission Replace with IV, recheck laboratories in the a.m. BPH with LUTS- For now hold tamsulosin and vibegron History of Present Illness Chief Complaint: The patient presented to the emergency department with acute onset of fever, chills, all over body aches, sweats and early confusion late this afternoon. Primary Care Provider: Vinicius Ng MD The patient is a 63-year-old male with a past medical history including history of kidney transplant, sepsis, chronic anticoagulation, bacteremia, urinary tract infection, statin intolerance, restrictive lung disease, CKD stage IV, retroperitoneal hematoma, AV fistula, GERD, FARNAZ, hyperlipidemia and hypertension. The patient presented with acute onset of fever, chills, generalized bodyaches, weakness, sweats and confusion. The patient's urine initially appeared very infected, and he appeared to be septic upon arrival. While in the emergency department, he was given 3 and half liters normal saline boluses, daptomycin IV, cefepime IV, ertapenem IV. He received Tylenol IV, magnesium sulfate IV, 1 episode and bicarbonate. The plan was admit the patient to telemetry unit, however, he developed progressive worsening sepsis, became more confused, and blood pressure dropped to a low of 70/45. At this point he was started on Levophed, and with improvement in systolic blood pressure to 96/60, his mentation did improve somewhat. The patient will be admitted to the ICU with diagnosis of septic shock Allergies Allergy/AdvReac Type Severity Reaction Status Date / Time allopurinol Allergy Unknown Rash Verified 01/17/24 12:45 hydromorphone [From Dilaudid] AdvReac Severe confusion Verified 01/17/24 12:45 Home Medications Medication Instructions Recorded Confirmed Type cholecalciferol (vitamin D3) 25 1,000 units PO QAM 04/24/19 01/17/24 History mcg (1,000 unit) capsule docusate sodium 100 mg capsule 100 mg PO BID PRN Constipation 04/24/19 01/17/24 History (Colace) multivitamin (Daily Multi-Vitamin 1 tab PO QAM 04/24/19 01/17/24 History tablet) ferrous sulfate 325 mg (65 mg 325 mg PO BID 08/05/21 01/17/24 History iron) tablet (iron) acetaminophen 500 mg tablet 1,000 mg PO QID PRN Pain 08/24/21 01/17/24 History (Tylenol Extra Strength) mycophenolate mofetil 250 mg 1,000 mg (4 x 250 mg) PO BID #180 08/27/22 01/17/24 Rx capsule (CellCept) caps enoxaparin 30 mg/0.3 mL 30 mg subcut DAILY 02/23/23 01/17/24 History subcutaneous syringe (Lovenox) omeprazole 40 mg capsule,delayed 40 mg PO QAM #90 caps 06/03/23 01/17/24 Rx release prednisone 5 mg tablet 5 mg PO QAM #90 tabs 08/11/23 01/17/24 Rx tamsulosin 0.4 mg capsule (Flomax) 0.4 mg PO HS #90 caps 08/11/23 01/17/24 Rx evolocumab 420 mg/3.5 mL 420 mg (3.5 mL) subcut .ONCE 08/17/23 01/17/24 Rx subcutaneous wearable injector MONTHLY #10.5 mL (Repatha Pushtronex) tadalafil 20 mg tablet (Cialis) 20 mg PO DAILY PRN sexual activity 08/17/23 01/17/24 Rx #5 tabs furosemide 40 mg tablet (Lasix) 20 mg (1/2 x 40 mg) PO QAM #30 tabs 09/03/23 01/17/24 Rx cyclosporine modified 100 mg 100 mg PO BID #180 caps 09/30/23 01/17/24 Rx capsule peg 3350-sod [id number] See Rx Instructions PO .COMPLEX #2 11/18/23 01/17/24 Rx 178.7-7.3-0.5-1.12-0.9 gram oral mL soln (Suflave) febuxostat 80 mg tablet (Uloric) 80 mg PO QAM #90 tabs 11/29/23 01/17/24 Rx duloxetine 60 mg capsule,delayed 60 mg PO QAM #90 caps 12/13/23 01/17/24 Rx release finasteride 5 mg tablet (Proscar) 5 mg PO QAM #90 tabs 12/22/23 01/17/24 Rx gabapentin 300 mg capsule 600 mg (2 x 300 mg) PO TID 90 days 12/24/23 01/17/24 Rx #540 caps losartan 50 mg tablet 50 mg PO QAM #90 tabs 01/18/24 Rx vibegron 75 mg tablet (Gemtesa) 75 mg PO DAILY #90 tabs 02/09/24 Rx Past Med/Surg History Problem List (Updated 02/14/24 @ 04:17 by MARTA King) Septic shock Complicated urinary tract infection (Acute) History of kidney transplant (Acute) Sepsis (Acute) Chronic anticoagulation currently on lovenox 30mg daily Knee pain Edema Urinary urgency Bacteremia Sepsis (Acute) UTI (urinary tract infection), bacterial Statin intolerance Restrictive lung disease Metabolic acidosis Erectile dysfunction Immunocompromised (Acute) Elevated PSA CKD (chronic kidney disease) stage 4, GFR 15-29 ml/min (Acute) Retroperitoneal hematoma AV fistula LEFT WRIST> NO DIALYSIS CURRENTLY> [facility] STILL WORKS PER PT GERD (gastroesophageal reflux disease) Obstructive sleep apnea (Chronic) Hyperlipidemia (Acute) Hypertension (Chronic) Medical History FARNAZ (obstructive sleep apnea) CPAP Chronic kidney disease, stage 4 (severe) Erectile dysfunction Chronic anticoagulation Limb alert care status left arm AV fistula LEFT WRIST> NO DIALYSIS CURRENTLY> [facility] STILL WORKS PER PT SOB (shortness of breath) hx, resolved Urinary retention Bacteremia due to Escherichia coli hx-hospitalized at [facility], treated, resolved Septic shock due to urinary tract infection hx, 2021, [facility] Anemia hx-currently stable Tremor Aortic valve endocarditis hx-developed during a bout of a UTI, in 2021, no current issues Osteoarthritis of left hip Metabolic syndrome Pulmonary nodule duplicate Dyslipidemia Encephalopathy hx-occurred due to fall related to "one of his infections," no current issues Supratherapeutic INR hx GERD (gastroesophageal reflux disease) Small bowel obstruction hx, resolved 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 History of basal cell carcinoma Multiple pulmonary nodules monitoring Nephrolithiasis hx Peripheral neuropathy Venous insufficiency Sarcoidosis f/u dr. cope, [place] [facility]. Hypertension Obesity Gout Surgical History History of surgery on right wrist History of cardiac cath 01/2018 > [facility] > NO STENTS; no cardio currently Kidney transplanted APR 04, 2019 > [facility] [place] > right side; f/u dr. 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 wilkins, [facility] H/O colonoscopy History of tooth extraction History of tonsillectomy History of melanoma excision left calf Family History Mother Stroke Heart disease Grandmother Cancer Lung disease Denies family history of Ovarian cancer Prostate cancer Colorectal cancer Social History (Updated 01/17/24 @ 12:47 by Zaida Mendez LPN) Smoking Status: Never smoker Second Hand Exposure: Yes (hx as child); Do You Dip or Chew Tobacco: No; Hx Alcohol Use: No Hx Substance Use: No Preferred Language: Tajik Communication Ability: Effective Visual Impairment: No Limitations Hearing Ability: Normal Paginator Required: No Beliefs That Will Affect Care: None marital status: Current Living Situation: Spouse Current Living Situation Comment: living with . current occupational status: employed current occupation: [employer] How many Children do You have: 1 Feels Safe at Home: Yes Diet: low salt caffeine: Yes (1-2 iced tea daily) Dental Care, Regularly: Yes Physical Activity Frequency: Does not Exercise Seatbelt Use: always Sunscreen Use: Yes Do you think of yourself as: straight/heterosexual Gender Identity: Male Assistive Devices: CPAP and Glasses Review of Systems Review of Systems: The patient denies chest pain, palpitations, cough, Sore throat, nausea, vomiting, diarrhea , constipation, abdominal pain, pelvic pain, blood in urine or stool, dysuria, memory loss, loss of consciousness, rash, abnormal bruising or bleeding, focal weakness, numbness or tingling in arms or legs, back or neck pain, or night sweats. The review of systems is otherwise negative other than for that already noted above, and at least 10 systems have been reviewed. Physical Exam Physical Exam: The patient upon arrival was awake, alert and oriented. As his time in ED progressed, he became more confused, and disoriented. Normocephalic and atraumatic, lying in bed and in mild to moderate distress. HEENT--PERRL, EOMI, mucous membranes and oropharynx dry. Neck--supple. No JVD. No bruits. Thyroid normal, trachea midline, no adenopathy. Heart--normal S1 and S2. No murmurs, rubs or gallops. Lungs--clear bilaterally, no respiratory distress, no accessory muscle use. Abdomen--normal bowel sounds and soft. Nontender. Nondistended. Obese Extremities--chronic venous stasis changes. Trace pitting edema. There are good distal pulses b/l. Dermatologic--normal skin turgor Neurologic--cranial nerves II through XII grossly intact. Rheumatologic--normal range of motion. Psychiatric--normal affect upon arrival, he did become more confused. Results & Data Results & Data Vital Signs (Past 12 Hours) Vital Signs Temp Pulse Pulse Resp BP BP Pulse Ox 02/13/24 22:30 108 H 22 117/77 94 02/13/24 22:14 37.3 C 118 H 16 135/77 94 02/13/24 21:00 116 H 24 127/67 92 02/13/24 20:46 37.9 C H 107 H 18 186/105 H 94 02/13/24 20:46 107 H 18 94 02/13/24 20:32 120 H 02/13/24 19:53 37.0 C 118 H 18 189/88 H 93 O2 Del Method 02/13/24 22:30 Room Air 02/13/24 22:14 Room Air 02/13/24 21:00 Room Air 02/13/24 20:46 Room Air 02/13/24 20:46 Room Air 02/13/24 20:32 02/13/24 19:53 Room Air Laboratory Results Laboratory Results WBC 18.59 K/ul (4.8-10.8) H 02/14/24 04:15 RBC 3.30 M/uL (4.70-6.10) L 02/14/24 04:15 Hgb 10.1 g/dl (14.0-18.0) L 02/14/24 04:15 Hct 32.0 % (42.0-52.0) L 02/14/24 04:15 MCV 97.0 fL (80.0-100.0) 02/14/24 04:15 MCH 30.6 pg (25.0-34.0) 02/14/24 04:15 MCHC 31.6 g/dL (32.0-36.0) L 02/14/24 04:15 RDW Std Deviation 46.0 fL (36.4-46.3) 02/14/24 04:15 RDW Coeff of Theresa 13.0 % (11.5-14.5) 02/14/24 04:15 Plt Count 167 K/uL (130-400) 02/14/24 04:15 MPV 10.5 fL (9.4-12.4) 02/14/24 04:15 Immature Gran % (Auto) 1.0 % 02/14/24 04:15 Neut % (Auto) 90.5 % 02/14/24 04:15 Lymph % (Auto) 1.7 % 02/14/24 04:15 [place] % (Auto) 5.9 % 02/14/24 04:15 Eos % (Auto) 0.6 % 02/14/24 04:15 Baso % (Auto) 0.3 % 02/14/24 04:15 Neut # (Auto) 16.82 K/uL (1.40-6.50) H 02/14/24 04:15 Lymph # (Auto) 0.31 K/uL (1.20-3.40) L 02/14/24 04:15 [place] # (Auto) 1.10 K/uL (0.11-0.59) H 02/14/24 04:15 Eos # (Auto) 0.12 K/uL (0.00-0.50) 02/14/24 04:15 Baso # (Auto) 0.06 K/uL (0.00-0.20) 02/14/24 04:15 Immature Gran # (Auto) 0.18 K/uL (0.01-0.20) 02/14/24 04:15 RBC Morphology Unremarkable 02/13/24 20:30 PT 10.7 Seconds (9.0-12.0) 02/13/24 20:30 INR 1.0 (0.9-1.1) 02/13/24 20:30 Sodium 140 mmol/L (136-145) 02/14/24 04:15 Potassium 3.6 mmol/L (3.5-5.1) D 02/14/24 04:15 Chloride 108 mmol/L (98-107) H 02/14/24 04:15 Carbon Dioxide 21 mmol/L (21-32) 02/14/24 04:15 Anion Gap 11 (3-11) 02/14/24 04:15 BUN 75 mg/dl (6-23) H 02/14/24 04:15 Creatinine 3.67 mg/dl (0.6-1.4) H 02/14/24 04:15 Est Cr Clr Drug Dosing 28.9 ml/min 02/14/24 04:15 Est GFR ( Amer) 19.3 ml/min 02/14/24 04:15 Est GFR (Non-Af Amer) 16.7 ml/min 02/14/24 04:15 BUN/Creatinine Ratio 20.4 (10-20) H 02/14/24 04:15 Glucose 112 mg/dl (70-99(Fasting)) H 02/14/24 04:15 Lactate 2.0 mmol/L (0.4-2.0) 02/13/24 20:30 Calcium 8.8 mg/dl (8.6-10.3) 02/14/24 04:15 Magnesium 1.3 mg/dl (1.7-2.4) L 02/14/24 04:15 Total Bilirubin 0.7 mg/dl (0.2-1.0) 02/14/24 04:15 Direct Bilirubin 0.2 mg/dl (0-0.2) 02/13/24 20:30 AST 9 U/L (13-39) L 02/14/24 04:15 ALT 9 U/L (7-52) 02/14/24 04:15 Alkaline Phosphatase 62 U/L (34-104) 02/14/24 04:15 Troponin I High Sens 11.1 pg/ml (0-20) 02/13/24 20:30 Total Protein 5.9 gm/dl (6.0-8.3) L 02/14/24 04:15 Albumin 4.0 gm/dl (3.4-5.0) 02/14/24 04:15 Globulin 1.9 gm/dl (2.5-4.0) L 02/14/24 04:15 Albumin/Globulin Ratio 2.1 (0.9-2) H 02/14/24 04:15 Lipase 56 U/L (11-82) 02/13/24 20:30 Procalcitonin 0.08 ng/ml (0-0.5) 02/13/24 20:30 Urine Color Yellow 02/13/24 Unknown Urine Appearance Turbid (Clear) A 02/13/24 Unknown Urine pH 5.5 (4.5-7.5) 02/13/24 Unknown Ur Specific [place] 1.014 (1.000-1.030) 02/13/24 Unknown Urine Protein 3+ (Negative) H 02/13/24 Unknown Urine Glucose (UA) Negative (Negative) 02/13/24 Unknown Urine Ketones Negative (Negative) 02/13/24 Unknown Urine Blood 3+ (Negative) H 02/13/24 Unknown Urine Nitrite Negative (Negative) 02/13/24 Unknown Urine Bilirubin Negative (Negative) 02/13/24 Unknown Urine Urobilinogen Negative (Negative) 02/13/24 Unknown Ur Leukocyte Esterase 3+ (Negative) H 02/13/24 Unknown Urine WBC (Auto) >50 /hpf (0-5) H 02/13/24 Unknown Urine RBC (Auto) >20 /hpf (0-2) H 02/13/24 Unknown U Hyaline Cast (Auto) 6-10 /lpf (0-2) H 02/13/24 Unknown U Epithel Cells (Auto) 0-2 /hpf (0-2) 02/13/24 Unknown Urine Bacteria (Auto) 4+ (None Seen) H 02/13/24 Unknown Adenovirus (PCR) Not Detected (NotDetected) 02/13/24 20:45 B. pertussis DNA (PCR) Not Detected (NotDetected) 02/13/24 20:45 B.parapertussis DNA PCR Not Detected (NotDetected) 02/13/24 20:45 C. pneumoniae DNA (PCR) Not Detected (NotDetected) 02/13/24 20:45 Coronavirus OC43 (PCR) Not Detected (NotDetected) 02/13/24 20:45 Coronavirus HKU1 (PCR) Not Detected (NotDetected) 02/13/24 20:45 Coronavirus 229E (PCR) Not Detected (NotDetected) 02/13/24 20:45 SARS-CoV-2 (PCR) Not Detected (NotDetected) 02/13/24 20:45 Coronavirus NL63 (PCR) Not Detected (NotDetected) 02/13/24 20:45 Human Metapneumovir PCR Not Detected (NotDetected) 02/13/24 20:45 Influenza Type A (PCR) Not Detected (NotDetected) 02/13/24 20:45 Influenza Type B (PCR) Not Detected (NotDetected) 02/13/24 20:45 M. pneumoniae (PCR) Not Detected (NotDetected) 02/13/24 20:45 Parainfluenza 1 (PCR) Not Detected (NotDetected) 02/13/24 20:45 Parainfluenza 2 (PCR) Not Detected (NotDetected) 02/13/24 20:45 Parainfluenza 3 (PCR) Not Detected (NotDetected) 02/13/24 20:45 Parainfluenza 4 (PCR) Not Detected (NotDetected) 02/13/24 20:45 RSV (PCR) Not Detected (NotDetected) 02/13/24 20:45 Entero/Rhino (PCR) Not Detected (NotDetected) 02/13/24 20:45 Impressions Abdomen/Pelvis CT 02/13/24 21:23 Exam(s): CT ABDOMEN + PELVIS Without Contrast EXAM: CT Abdomen and Pelvis Without Intravenous Contrast CLINICAL HISTORY: sepsis, h/o renal transplant. TECHNIQUE: Axial computed tomography images of the abdomen and pelvis without intravenous contrast. CTDI is 24.07 mGy and DLP is 1631.83 mGy-cm. Automated exposure control was utilized for the study. A dose lowering technique was utilized adhering to the principles of ALARA. COMPARISON: Noncontrast CT abdomen and pelvis 08/23/2022 FINDINGS: Lung bases: Diffuse pulmonary nodules noted throughout the lung bases, similar to the previous examination. No consolidation. ABDOMEN: Liver: Similar contours to the liver. No definite focal abnormality. Gallbladder and bile ducts: Unremarkable. No calcified stones. No ductal dilation. Pancreas: Unremarkable. No ductal dilation. Spleen: Unremarkable. No splenomegaly. Adrenals: Unremarkable. No mass. Kidneys and ureters: The [place] kidneys remain markedly atrophic in appearance with irregular hyperdense perinephric fat stranding. No alteration in morphology. No new hydronephrosis or obstructive ureteral stones in the [place] kidneys. A right transplant kidney is identified with similar mild perinephric fat stranding. No hydronephrosis or obstructive ureteral stones. Stomach and bowel: Mild retained oral contents noted in the stomach. No gastric mucosal thickening. No evidence for bowel obstruction. Evaluation of the bowel mucosa is slightly limited without contrast; however, no definite focal asymmetry suggested. Mild to moderate stool burden. No diverticulitis. PELVIS: Appendix: A normal caliber appendix is noted along the posterior aspect of the cecum. Bladder: Mucosal prominence of the bladder is nonspecific with near- complete decompression. No stones. Reproductive: The prostate gland remains enlarged with somewhat less prominent periprostatic fat stranding. Subperitoneal space: The previously noted presacral edema has resolved. ABDOMEN and PELVIS: Intraperitoneal space: Unremarkable. No free air. No significant fluid collection. Bones/joints: No acute fracture. No dislocation. Soft tissues: Fat-containing umbilical hernia is larger in size when compared to the previous examination. No fat stranding or fluid in the herniated fat. Vasculature: Unremarkable. No abdominal aortic aneurysm. Lymph nodes: Unremarkable. No enlarged lymph nodes. IMPRESSION: No significant abnormality definitively identified within the unenhanced abdomen or pelvis to suggest the cause of the patient's reported sepsis. Incidental chronic findings, as noted above, similar to the previous examination. Periprostatic fat stranding is minimally improved from the previous examination. The previously noted presacral edema has resolved. Electronically signed by: Kai Williamson MD 02/13/24 23:[address] 02/13/24 21:23 Exam(s): CT CHEST Without Contrast EXAM: CT Chest Without Intravenous Contrast CLINICAL HISTORY: sepsis, h/o renal transplant. TECHNIQUE: Axial computed tomography images of the chest without intravenous contrast. CTDI is 24.07 mGy and DLP is 1631.83 mGy-cm. Automated exposure control was utilized for the study. A dose lowering technique was utilized adhering to the principles of ALARA. COMPARISON: CT chest without contrast dated 09/29/2023. FINDINGS: Lungs: Diffuse abnormal pulmonary nodules noted throughout the lungs, similar in morphology and appearance to the previous examination. Again, there is heterogeneous mixed calcified and noncalcified nodules noted internally. No appreciable interval increase in size of the nodules noted. No consolidation. Pleural space: Unremarkable. No pneumothorax. No significant effusion. Heart: The cardiac chambers are upper normal limits with at least moderate coronary artery calcification. No significant pericardial effusion. Bones/joints: No acute osseous abnormality. Stable chronic anterior wedging at several thoracic vertebral bodies resulting in accentuated kyphosis, stable. No dislocation. Soft tissues: Unremarkable. Vasculature: The thoracic aorta demonstrates some atherosclerotic calcification without dilation. Lymph nodes: Nonspecific paratracheal lymph nodes and subcarinal lymph nodes. No significant lymphadenopathy. IMPRESSION: No significant abnormality identified within the chest/thorax to suggest the patient's reported sepsis. Diffuse pulmonary nodules and calcified lymph nodes, stable in appearance from the previous examination. Electronically signed by: Kai Williamson MD 02/13/24 23:45 PM Code Status & VTE Plan Code Status Full code VTE Prophylaxis Plan VTE Prophylaxis will be ordered: Yes PG Care Time/CCT Total # of Minutes Spent Total Time Spent with Patient: Total time spent is greater than 50% in coordination of care (as documented) at patient's floor/unit and/or counseling patient: 60 minutes Coding Level of Care Code 56658 INT INP/OBS CARE 3/75MIN Diagnoses Septic shock A41.9; R65.21 Complicated urinary tract infection N39.0 History of kidney transplant Z94.0 Chronic anticoagulation Z79.01 Immunocompromised D84.9 CKD (chronic kidney disease) stage 4, GFR 15-29 ml/min N18.4 Gastroesophageal reflux disease without esophagitis K21.9 Esophagitis presence: without esophagitis Obstructive sleep apnea G47.33 Hyperlipidemia E78.5 Essential hypertension I10 Hypertension type: essential hypertension (7) GERD (gastroesophageal reflux disease) Esophagitis presence: without esophagitis Qualified Code(s): K21.9 - Gastro- esophageal reflux disease without esophagitis (10) Hypertension Hypertension type: essential hypertension Qualified Code(s): I10 - Essential (primary) hypertension
[2024-02-13 23:24] LABS: Appearance Urine Turbid (Clear); Bacteria Urine Automated 4+ (None Seen); Bilirubin Urine Negative (Negative); Blood Urine 3+ (Negative); Color Urine Yellow; Epithelial Cell Urine Auto 0-2 /hpf (0-2); Glucose Urine UA Negative (Negative); Ketones Urine Negative (Negative); Leukocyte Esterase Urine 3+ (Negative); Nitrite Urine Negative (Negative); Protein Urine 3+ (Negative); RBC Urine Automated >20 /hpf (0-2); Specific Gravity Urine 1.014 (1.000-1.030); Urobilinogen Urine Negative (Negative); WBC Urine Automated >50 /hpf (0-5); pH Urine 5.5 (4.5-7.5)
[2024-02-13] MEDS: DAPTOmycin 450 MG in SYRINGE 0 ML IV STA (23:27)
--- NOTE | 2024-02-13 23:41 | CT Scan Report ---
Exam(s): CT ABDOMEN + PELVIS Without Contrast EXAM: CT Abdomen and Pelvis Without Intravenous Contrast CLINICAL HISTORY: sepsis, h/o renal transplant. TECHNIQUE: Axial computed tomography images of the abdomen and pelvis without intravenous contrast. CTDI is 24.07 mGy and DLP is 1631.83 mGy-cm. Automated exposure control was utilized for the study. A dose lowering technique was utilized adhering to the principles of ALARA. COMPARISON: Noncontrast CT abdomen and pelvis 08/23/2022 FINDINGS: Lung bases: Diffuse pulmonary nodules noted throughout the lung bases, similar to the previous examination. No consolidation. ABDOMEN: Liver: Similar contours to the liver. No definite focal abnormality. Gallbladder and bile ducts: Unremarkable. No calcified stones. No ductal dilation. Pancreas: Unremarkable. No ductal dilation. Spleen: Unremarkable. No splenomegaly. Adrenals: Unremarkable. No mass. Kidneys and ureters: The [place] kidneys remain markedly atrophic in appearance with irregular hyperdense perinephric fat stranding. No alteration in morphology. No new hydronephrosis or obstructive ureteral stones in the [place] kidneys. A right transplant kidney is identified with similar mild perinephric fat stranding. No hydronephrosis or obstructive ureteral stones. Stomach and bowel: Mild retained oral contents noted in the stomach. No gastric mucosal thickening. No evidence for bowel obstruction. Evaluation of the bowel mucosa is slightly limited without contrast; however, no definite focal asymmetry suggested. Mild to moderate stool burden. No diverticulitis. PELVIS: Appendix: A normal caliber appendix is noted along the posterior aspect of the cecum. Bladder: Mucosal prominence of the bladder is nonspecific with near- complete decompression. No stones. Reproductive: The prostate gland remains enlarged with somewhat less prominent periprostatic fat stranding. Subperitoneal space: The previously noted presacral edema has resolved. ABDOMEN and PELVIS: Intraperitoneal space: Unremarkable. No free air. No significant fluid collection. Bones/joints: No acute fracture. No dislocation. Soft tissues: Fat-containing umbilical hernia is larger in size when compared to the previous examination. No fat stranding or fluid in the herniated fat. Vasculature: Unremarkable. No abdominal aortic aneurysm. Lymph nodes: Unremarkable. No enlarged lymph nodes. IMPRESSION: No significant abnormality definitively identified within the unenhanced abdomen or pelvis to suggest the cause of the patient's reported sepsis. Incidental chronic findings, as noted above, similar to the previous examination. Periprostatic fat stranding is minimally improved from the previous examination. The previously noted presacral edema has resolved. Electronically signed by: Kai Williamson MD 02/13/24 23:41 PM
--- NOTE | 2024-02-13 23:45 | CT Scan Report ---
Exam(s): CT CHEST Without Contrast EXAM: CT Chest Without Intravenous Contrast CLINICAL HISTORY: sepsis, h/o renal transplant. TECHNIQUE: Axial computed tomography images of the chest without intravenous contrast. CTDI is 24.07 mGy and DLP is 1631.83 mGy-cm. Automated exposure control was utilized for the study. A dose lowering technique was utilized adhering to the principles of ALARA. COMPARISON: CT chest without contrast dated 09/29/2023. FINDINGS: Lungs: Diffuse abnormal pulmonary nodules noted throughout the lungs, similar in morphology and appearance to the previous examination. Again, there is heterogeneous mixed calcified and noncalcified nodules noted internally. No appreciable interval increase in size of the nodules noted. No consolidation. Pleural space: Unremarkable. No pneumothorax. No significant effusion. Heart: The cardiac chambers are upper normal limits with at least moderate coronary artery calcification. No significant pericardial effusion. Bones/joints: No acute osseous abnormality. Stable chronic anterior wedging at several thoracic vertebral bodies resulting in accentuated kyphosis, stable. No dislocation. Soft tissues: Unremarkable. Vasculature: The thoracic aorta demonstrates some atherosclerotic calcification without dilation. Lymph nodes: Nonspecific paratracheal lymph nodes and subcarinal lymph nodes. No significant lymphadenopathy. IMPRESSION: No significant abnormality identified within the chest/thorax to suggest the patient's reported sepsis. Diffuse pulmonary nodules and calcified lymph nodes, stable in appearance from the previous examination. Electronically signed by: Kai Williamson MD 02/13/24 23:45 PM
[2024-02-13] MEDS: ERTAPENEM SODIUM 10 ML IV STA (23:48)
[2024-02-13] MEDS ORDERED: DOCUSATE SODIUM 100 MG CAP PO PRN (23:58)
[2024-02-13] MEDS ORDERED: NON-FORMULARY MEDICATION (Peg 3350-Sod Sulf,Chlr-Pot-Mag [Suflave] 178.7-7.3-0.5 gram reco PO SCH (23:58)
[2024-02-13] MEDS ORDERED: ACETAMINOPHEN 500 MG TAB PO PRN (23:58)
[2024-02-13] MEDS: LORazepam 2 MG/1 ML VIAL IV STA (23:59)
[2024-02-14] MEDS: ACETAMINOPHEN 1,000 MG/100 ML VIAL IV STA (00:53)
[2024-02-14] MEDS: SODIUM CHLORIDE 0.9% 1,000 ML IV ONE ×2 (00:53→01:37)
[2024-02-14] MEDS: MoRPHine SULFATE 2 MG/ML CARP IV STA (01:17)
[2024-02-14] MEDS: SODIUM BICARB 8.4% INJ 50 MEQ/50 ML SYR IV STA (02:22)
[2024-02-14] MEDS ORDERED: STAT IV Infusion **Titration per Protocol STA (02:24)
[2024-02-14] MEDS: ALBUMIN 25% 25 GM/100 ML VIAL IV SCH (02:25)
[2024-02-14] MEDS: NOREPINEPHRINE/D5W 4 MG/250 ML PLCT IV SCH (02:39)
[2024-02-14] MEDS ORDERED: HYDROCORTISONE SOD SUCCINATE 100 MG/2 ML VIAL IV STA (02:46)
--- NOTE | 2024-02-14 03:48 | Critical Care Consultation ---
Date of Consultation February 14, 2024 Assessment & Plan (1) Septic shock: (2) Complicated urinary tract infection: (3) History of kidney transplant: (4) CKD (chronic kidney disease) stage 4, GFR 15-29 ml/min: Plan Reason Critically Ill: 63 YOM with history of renal transplant and frequent UTIs admitted to ICU for septic shock secondary to likely urinary source requiring vasopressors. Neuro - Metabolic Encephalopathy CAM ICU: Negative - Encephalopathy secondary to septic shock from UTI- improved following increase in BP Cardiac - Septic Shock, HTN, - Septic shock with organ dysfunction - brain, renals - Adequately volume resuscitated - Support BP with LEVOphed for MAPS >65 - Stress dose steroids - hydrocortisone 100mg IV now and then 50mg Q8 - ABX - Dapto, Ertapenem- see ID section - Lactate negative - Follow UO and MAPS for re-evaluations Respiratory - FARNAZ, pulmonary nodules - FARNAZ - continue CPAP 14cm H20 - Follows with pulmonary for his pulm nodules - stable per visit in September GI - Obesity - Currently planning on undergoing bariatric surgery clearances to hopefully prolong his current renal transplant RENAL/LYTES - Hypomag, LORENZO on CKD, Hx renal transplant - Adequately volume resuscitated- defend MAP goal of 65 - ICU electrolyte protocol - Follow his renal indices closely- renally dose medications avoid further nephrotoxic medications as able -[facility] [place] and follows with Dr Mei- Continue CellCept and Mycophenolate at this time - No acute needs ENDO - No acute needs - ICU hyper/hypoglycemic protocol HEME - Hx of DVT - Is now on Lovenox 30mg Subq Daily at home for chronic prevention secondary to hx of retroperitoneal hemorrhages - Follow CRCL- Currently 19 ID - UTI complicated - Tachycardic, hypotensive, source urine, with organ dysfunction - await culture data - Continue Daptomycin, and Ertapenem LINES/IV ACCESS - PIV Continue use of these lines - may need CVL/Mally pending clinical course- currently on low dose Peripheral LEvo DVT PROPHYLAXIS - SCDS, Lovenox 30mg daily DISPO: ICU until hemodynamics proven stable I have personally spent 35 minutes of critical care time in the direct management of this patient. This is a life/limb threatening event. This includes time spent evaluating patient, direct bedside care, chart review, placing orders, interpretation of diagnostic studies, discussion with consultants, patient, and family members, as well as other required patient management activities. This time is exclusive of all separately billable procedures, and separate from and in addition to any other critical care service time. Thank you for allowing us to participate in the care of this patient. Please refer to my attending physician's documentation for any further recommendations. Supervising Physician Co-Signing Physician Notes Patient seen and examined. EMR reviewed. Discussed with overnight critical care JOSEPH and agree with assessment plan as noted. Patient was also discussed on multidisciplinary rounds this morning and with the bedside critical care nurse. The patient states he feels better this morning. His abdominal pain is resolving. His mental status changes are returning back to normal. His renal indices continue to decline and formal nephrology consultation is currently pending. Will defer immunosuppression to nephrology. His hemodynamics have improved with stress dose steroids and adequate IV resuscitation. Prior cultures were positive for Citrobacter which was pansensitive. At this point in time I think we can de-escalate antibiotics. Will discontinue ertapenem and daptomycin and transition to Rocephin renally dosed for the patient's creatinine clearance. Anticipate 7-day course. Will decrease hydrocortisone to 50 mg IV every 6 and taper over the next 5 to 7 days depending on clinical course. Add Florinef as well. If he is unable to keep off of pressors, would have a low threshold for potentially adding midodrine to see if we can keep him off parenteral agents. Will continue to trend lab values. If he remains hemodynamically stable, could consider transition to the floor later today. An additional 40 minutes of critical care time was spent in evaluation and management of this patient. History of Present Illness Reason for Consultation: Septic Shock Requesting Physician: Yovani Pizarro MD Attending Physician: Yovani Pizarro MD History of Present Illness 60 YOM with past medical history of: Focal glomerular sclerosis, Renal transplant (2019- [facility] at [place] and follows with Dr Mei), CRI with AV fistula to LEFT wrist, HTN, HLD, Obesity, FARNAZ, DVT in left lower leg chronic anticoagulation discontinued secondary to retroperitoneal hemorrhage x3, peripheral neuropathy, COVID 09/18. Patient came to EMD for complaints of chills and fevers with associated rigors by report, this was also associated with urinary symptoms of burning and increased frequency. He was noted to by tachycardic and initially hypertensive on arrival. In the EMD he received 3.5 L of crystalloid, had blood and urine cultures obtained, CT abd/pelvis obtained and CT chest without contrast. Both negative for acute infective process, but noted chronic findings. Initially patient was admitted to PCU, however while awaiting bed placement he began to become restless as well as noted hypotension to the 70/40s. He was given another 500ml fluid bolus and 25% albumin 100ml and ICU consultation was requested. Recommended stress dose steroids and initiation of LEVOphed. Patient was evaluated in his ER room A12. He is awake but states he feels very tired, he is warm, but not diaphoretic and without acute pain. Lung sounds clear and pulses strong. His restlessness and lethargy improved following increase in his blood pressure upon re-evaluation. Patient will be admitted to the ICU for continued support of septic shock secondary to urinary source. CODE: FULL Allergies Allergy/AdvReac Type Severity Reaction Status Date / Time allopurinol Allergy Unknown Rash Verified 01/17/24 12:45 hydromorphone [From Dilaudid] AdvReac Severe confusion Verified 01/17/24 12:45 Home Medications Medication Instructions Recorded Confirmed Type cholecalciferol (vitamin D3) 25 1,000 units PO QAM 04/24/19 01/17/24 History mcg (1,000 unit) capsule docusate sodium 100 mg capsule 100 mg PO BID PRN Constipation 04/24/19 01/17/24 History (Colace) multivitamin (Daily Multi-Vitamin 1 tab PO QAM 04/24/19 01/17/24 History tablet) ferrous sulfate 325 mg (65 mg 325 mg PO BID 08/05/21 01/17/24 History iron) tablet (iron) acetaminophen 500 mg tablet 1,000 mg PO QID PRN Pain 08/24/21 01/17/24 History (Tylenol Extra Strength) mycophenolate mofetil 250 mg 1,000 mg (4 x 250 mg) PO BID #180 08/27/22 01/17/24 Rx capsule (CellCept) caps enoxaparin 30 mg/0.3 mL 30 mg subcut DAILY 02/23/23 01/17/24 History subcutaneous syringe (Lovenox) omeprazole 40 mg capsule,delayed 40 mg PO QAM #90 caps 06/03/23 01/17/24 Rx release prednisone 5 mg tablet 5 mg PO QAM #90 tabs 08/11/23 01/17/24 Rx tamsulosin 0.4 mg capsule (Flomax) 0.4 mg PO HS #90 caps 08/11/23 01/17/24 Rx evolocumab 420 mg/3.5 mL 420 mg (3.5 mL) subcut .ONCE 08/17/23 01/17/24 Rx subcutaneous wearable injector MONTHLY #10.5 mL (Repatha Pushtronex) tadalafil 20 mg tablet (Cialis) 20 mg PO DAILY PRN sexual activity 08/17/23 01/17/24 Rx #5 tabs furosemide 40 mg tablet (Lasix) 20 mg (1/2 x 40 mg) PO QAM #30 tabs 09/03/23 01/17/24 Rx cyclosporine modified 100 mg 100 mg PO BID #180 caps 09/30/23 01/17/24 Rx capsule peg 3350-sod sulf,[id number] See Rx Instructions PO .COMPLEX #2 11/18/23 01/17/24 Rx 178.7-7.3-0.5-1.12-0.9 gram oral mL soln (Suflave) febuxostat 80 mg tablet (Uloric) 80 mg PO QAM #90 tabs 11/29/23 01/17/24 Rx duloxetine 60 mg capsule,delayed 60 mg PO QAM #90 caps 12/13/23 01/17/24 Rx release finasteride 5 mg tablet (Proscar) 5 mg PO QAM #90 tabs 12/22/23 01/17/24 Rx gabapentin 300 mg capsule 600 mg (2 x 300 mg) PO TID 90 days 12/24/23 01/17/24 Rx #540 caps losartan 50 mg tablet 50 mg PO QAM #90 tabs 01/18/24 Rx vibegron 75 mg tablet (Gemtesa) 75 mg PO DAILY #90 tabs 02/09/24 Rx Patient History Medical History FARNAZ (obstructive sleep apnea) CPAP Chronic kidney disease, stage 4 (severe) Erectile dysfunction Chronic anticoagulation Limb alert care status left arm AV fistula LEFT WRIST> NO DIALYSIS CURRENTLY> FISTULA STILL WORKS PER PT SOB (shortness of breath) hx, resolved Urinary retention Bacteremia due to Escherichia coli hx-hospitalized at [facility], treated, resolved Septic shock due to urinary tract infection hx, 2021, [facility] Anemia hx-currently stable Tremor Aortic valve endocarditis hx-developed during a bout of a UTI, in 2021, no current issues Osteoarthritis of left hip Metabolic syndrome Pulmonary nodule duplicate Dyslipidemia Encephalopathy hx-occurred due to fall related to "one of his infections," no current issues Supratherapeutic INR hx GERD (gastroesophageal reflux disease) Small bowel obstruction hx, resolved 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 History of basal cell carcinoma Multiple pulmonary nodules monitoring Nephrolithiasis hx Peripheral neuropathy Venous insufficiency Sarcoidosis f/u dr. cope[place] pulm. Hypertension Obesity Gout Surgical History History of surgery on right wrist History of cardiac cath 01/2018 > [facility] > NO STENTS; no cardio currently Kidney transplanted APR 04, 2019 > [facility] [place] > right side; f/u dr. mei, granulating machine operator at [place] in conjunction with dr. wilkins, [facility] H/O colonoscopy History of tooth extraction History of tonsillectomy History of melanoma excision left calf Family History Mother Stroke Heart disease Grandmother Cancer Lung disease Denies family history of Ovarian cancer Prostate cancer Colorectal cancer Social History (Updated 01/17/24 @ 12:47 by Zaida Mendez LPN) Smoking Status: Never smoker Second Hand Exposure: Yes (hx as child); Do You Dip or Chew Tobacco: No; Hx Alcohol Use: No Hx Substance Use: No Preferred Language: Maori Communication Ability: Effective Visual Impairment: No Limitations Hearing Ability: Normal Furniture Reproducer Required: No Beliefs That Will Affect Care: None marital status: Current Living Situation: Spouse Current Living Situation Comment: living with . current occupational status: employed current occupation: [employer] How many Children do You have: 1 Other Information That Helps Us Care for You: No Feels Safe at Home: Yes Diet: low salt caffeine: Yes (1-2 iced tea daily) Dental Care, Regularly: Yes Physical Activity Frequency: Does not Exercise Seatbelt Use: always Sunscreen Use: Yes Do you think of yourself as: straight/heterosexual Gender Identity: Male Assistive Devices: CPAP and Glasses Review of Systems Review of Systems: REVIEW OF SYSTEMS: Constitutional: (+) fever, sweats or chills Eyes: No diplopia, no worsening or blurred vision ENT: normal hearing, no trouble swallowing Respiratory: No cough, sputum, dyspnea at rest or on exertion Cardiovascular: No chest pain, tightness or palpitations Abdomen:(+) pain with urination, NO pain, nausea, vomiting, diarrhea or constipation Musculoskeletal: No joint pain, calf pain, swelling Neurologic: No weakness, numbness/tingling, or balance problems Psychiatric: No anxiety or depression Skin: (+) chronic venous ulcerations of legs Physical Exam Physical Exam: PHYSICAL EXAM: General: Lethargic, restless Head: Normocephalic, atraumatic ENT: PERRLA, EOMI, no pharyngeal exudate, mucous membranes dry Neuro: AAO x 3, speech clear and appropriate, strength intact bilaterally 5/5, sensation intact and equal all extremities and dermatomes, no pronator drift Chest: equal rise and fall of the chest, no accessory muscle use, no heaves or thrills, Clear to auscultation, on room air, Cardiac: Regular rate and rhythm, telemetry reviewed- NSR, skin warm dry, cap refill <3 seconds, peripheral pulses +2 no JVD, no murmur, +2 edema lower extremities, LEFT wrist AV fistula with good thrill and bruit GI: NABS x 4 quadrants, soft, nontender to palpation, no rebound, guarding or tenderness : Spontaneously voiding, burning Psych: Normal mood and affect Skin: brownish venous discoloration to lower legs with some scabs noted, no drainage Results & Data Results & Data Vital Signs (Past 12 Hours) Vital Signs Temp Pulse Pulse Resp BP BP Pulse Ox 02/14/24 02:49 37.4 C 104 H 22 95/50 L 98 09/16/24 02:02 37.0 C 109 H 22 86/58 L 95 02/14/24 01:11 124 H 20 116/71 93 02/14/24 00:38 38.4 C H 123 H 28 H 160/94 H 91 02/14/24 00:38 02/14/24 00:22 38.4 C H 121 H 30 H 147/87 H 92 02/14/24 00:13 120 H 02/13/24 23:35 117 H 18 140/100 95 02/13/24 22:30 108 H 22 117/77 94 02/13/24 22:14 37.3 C 118 H 16 135/77 94 02/13/24 21:00 116 H 24 127/67 92 02/13/24 20:46 37.9 C H 107 H 18 186/105 H 94 02/13/24 20:46 107 H 18 94 02/13/24 20:32 120 H 02/13/24 19:53 37.0 C 118 H 18 189/88 H 93 Pulse Ox O2 Del Method O2 Del Method O2 Flow Rate 02/14/24 02:49 Nasal Cannula 2 02/14/24 02:02 Nasal Cannula 2 02/14/24 01:11 Room Air 02/14/24 00:38 Room Air 02/14/24 00:38 91 Room Air 02/14/24 00:22 Room Air 02/14/24 00:13 02/13/24 23:35 Room Air 02/13/24 22:30 Room Air 02/13/24 22:14 Room Air 02/13/24 21:00 Room Air 02/13/24 20:46 Room Air 02/13/24 20:46 Room Air 02/13/24 20:32 02/13/24 19:53 Room Air Laboratory Results Abnormal lab results 02/13/24 02/13/24 Range/Units 20:30 Unknown WBC 12.06 H (4.8-10.8) K/ul RBC 3.88 L (4.70-6.10) M/uL Hgb 11.8 L (14.0-18.0) g/dl Hct 37.4 L (42.0-52.0) % MCHC 31.6 L (32.0-36.0) g/dL Neut # (Auto) 11.06 H (1.40-6.50) K/uL Lymph # (Auto) 0.37 L (1.20-3.40) K/uL Anion Gap 12 H (3-11) BUN 76 H (6-23) mg/dl Creatinine 3.59 H (0.6-1.4) mg/dl BUN/Creatinine Ratio 21.2 H (10-20) Glucose 112 H (70-99(Fasting)) mg/dl Magnesium 1.4 L (1.7-2.4) mg/dl AST 10 L (13-39) U/L Urine Appearance Turbid A (Clear) Urine Protein 3+ H (Negative) Urine Blood 3+ H (Negative) Ur Leukocyte Esterase 3+ H (Negative) Urine WBC (Auto) >50 H (0-5) /hpf Urine RBC (Auto) >20 H (0-2) /hpf U Hyaline Cast (Auto) 6-10 H (0-2) /lpf Urine Bacteria (Auto) 4+ H (None Seen) Diagnostic Findings Abdomen/Pelvis CT 02/13/24 21:23 Exam(s): CT ABDOMEN + PELVIS Without Contrast EXAM: CT Abdomen and Pelvis Without Intravenous Contrast CLINICAL HISTORY: sepsis, h/o renal transplant. TECHNIQUE: Axial computed tomography images of the abdomen and pelvis without intravenous contrast. CTDI is 24.07 mGy and DLP is 1631.83 mGy-cm. Automated exposure control was utilized for the study. A dose lowering technique was utilized adhering to the principles of ALARA. COMPARISON: Noncontrast CT abdomen and pelvis 08/23/2022 FINDINGS: Lung bases: Diffuse pulmonary nodules noted throughout the lung bases, similar to the previous examination. No consolidation. ABDOMEN: Liver: Similar contours to the liver. No definite focal abnormality. Gallbladder and bile ducts: Unremarkable. No calcified stones. No ductal dilation. Pancreas: Unremarkable. No ductal dilation. Spleen: Unremarkable. No splenomegaly. Adrenals: Unremarkable. No mass. Kidneys and ureters: The [place] kidneys remain markedly atrophic in appearance with irregular hyperdense perinephric fat stranding. No alteration in morphology. No new hydronephrosis or obstructive ureteral stones in the [place] kidneys. A right transplant kidney is identified with similar mild perinephric fat stranding. No hydronephrosis or obstructive ureteral stones. Stomach and bowel: Mild retained oral contents noted in the stomach. No gastric mucosal thickening. No evidence for bowel obstruction. Evaluation of the bowel mucosa is slightly limited without contrast; however, no definite focal asymmetry suggested. Mild to moderate stool burden. No diverticulitis. PELVIS: Appendix: A normal caliber appendix is noted along the posterior aspect of the cecum. Bladder: Mucosal prominence of the bladder is nonspecific with near- complete decompression. No stones. Reproductive: The prostate gland remains enlarged with somewhat less prominent periprostatic fat stranding. Subperitoneal space: The previously noted presacral edema has resolved. ABDOMEN and PELVIS: Intraperitoneal space: Unremarkable. No free air. No significant fluid collection. Bones/joints: No acute fracture. No dislocation. Soft tissues: Fat-containing umbilical hernia is larger in size when compared to the previous examination. No fat stranding or fluid in the herniated fat. Vasculature: Unremarkable. No abdominal aortic aneurysm. Lymph nodes: Unremarkable. No enlarged lymph nodes. IMPRESSION: No significant abnormality definitively identified within the unenhanced abdomen or pelvis to suggest the cause of the patient's reported sepsis. Incidental chronic findings, as noted above, similar to the previous examination. Periprostatic fat stranding is minimally improved from the previous examination. The previously noted presacral edema has resolved. Electronically signed by: Kai Williamson MD 02/13/24 23:[address] 02/13/24 21:23 Exam(s): CT CHEST Without Contrast EXAM: CT Chest Without Intravenous Contrast CLINICAL HISTORY: sepsis, h/o renal transplant. TECHNIQUE: Axial computed tomography images of the chest without intravenous contrast. CTDI is 24.07 mGy and DLP is 1631.83 mGy-cm. Automated exposure control was utilized for the study. A dose lowering technique was utilized adhering to the principles of ALARA. COMPARISON: CT chest without contrast dated 09/29/2023. FINDINGS: Lungs: Diffuse abnormal pulmonary nodules noted throughout the lungs, similar in morphology and appearance to the previous examination. Again, there is heterogeneous mixed calcified and noncalcified nodules noted internally. No appreciable interval increase in size of the nodules noted. No consolidation. Pleural space: Unremarkable. No pneumothorax. No significant effusion. Heart: The cardiac chambers are upper normal limits with at least moderate coronary artery calcification. No significant pericardial effusion. Bones/joints: No acute osseous abnormality. Stable chronic anterior wedging at several thoracic vertebral bodies resulting in accentuated kyphosis, stable. No dislocation. Soft tissues: Unremarkable. Vasculature: The thoracic aorta demonstrates some atherosclerotic calcification without dilation. Lymph nodes: Nonspecific paratracheal lymph nodes and subcarinal lymph nodes. No significant lymphadenopathy. IMPRESSION: No significant abnormality identified within the chest/thorax to suggest the patient's reported sepsis. Diffuse pulmonary nodules and calcified lymph nodes, stable in appearance from the previous examination. Electronically signed by: Kai Williamson MD 02/13/24 23:45 PM Coding Level of Care Code 78777 CRITICAL CARE EA ADD 30M Diagnoses Septic shock A41.9; R65.21 Complicated urinary tract infection N39.0 History of kidney transplant Z94.0 CKD (chronic kidney disease) stage 4, GFR 15-29 ml/min N18.4
[2024-02-14] MEDS ORDERED: ACETAMINOPHEN 1,000 MG/100 ML VIAL IV PRN (04:20)
[2024-02-14] MEDS ORDERED: ONDANSETRON INJ 2 MG/ML 2 ML VIAL IV PRN (04:20)
[2024-02-14] MEDS: HYDROCORTISONE SOD 100 MG in SYRINGE 0 ML IV STA (04:39)
[2024-02-14] MEDS: MAGNESIUM SULFATE / D5W 1 GM/100 ML BAG IV SCH (04:39)
[2024-02-14 04:43] LABS: Hemoglobin 10.1 g/dl (14.0-18.0); Mean Corpuscular Hemoglobin 30.6 pg (25.0-34.0); Mean Corpuscular Hgb Conc 31.6 g/dL (32.0-36.0); Mean Platelet Volume 10.5 fL (9.4-12.4); Platelet Count 167 K/uL (130-400); White Blood Count 18.59 K/ul (4.8-10.8)
[2024-02-14 04:50] LABS: Albumin Globulin Ratio 2.1 (0.9-2); BUN Creatinine Ratio 20.4 (10-20); Bilirubin,Total 0.7 mg/dl (0.2-1.0); Calcium 8.8 mg/dl (8.6-10.3); Creatinine Clr Calc Pharmacy 28.9 ml/min; Est GFR (African American) 19.3 ml/min; Est GFR (Non-African American) 16.7 ml/min; Globulin 1.9 gm/dl (2.5-4.0); Magnesium 1.3 mg/dl (1.7-2.4); Potassium 3.6 mmol/L (3.5-5.1); Total Protein 5.9 gm/dl (6.0-8.3)
[2024-02-14 05:04] LABS: Basophils # (auto) 0.06 K/uL (0.00-0.20); Basophils % (auto) 0.3 %; Eosinophils # (auto) 0.12 K/uL (0.00-0.50); Eosinophils % (auto) 0.6 %; Immature Granulocytes # (auto) 0.18 K/uL (0.01-0.20); Lymphocytes # (auto) 0.31 K/uL (1.20-3.40); Lymphocytes % (auto) 1.7 %; Monocytes % (auto) 5.9 %; Neutrophils # (auto) 16.82 K/uL (1.40-6.50); Neutrophils % (auto) 90.5 %
--- NOTE | 2024-02-14 05:37 | Billing Data ---
Date of Service February 14, 2024 Coding Level of Care Code 13824 CRITICAL CARE
--- NOTE | 2024-02-14 06:47 | XRay Report ---
XR chest 1V portable HISTORY: 63 years-old Male Sepsis acute sepsis COMPARISON: Chest CT of same day bottles of 09/29/2023 TECHNIQUE: AP view of the chest FINDINGS: Cardiac silhouette is enlarged. Calcified mediastinal and hilar lymphadenopathy redemonstrated along with numerous solid bilateral pulmonary nodules, some which are calcified. No pneumothorax, pleural e ffusion or overt pulmonary edema. Bones appear grossly intact. Mild sigmoidal scoliosis of the spine. IMPRESSION: 1. Cardiomegaly without acute process of the chest. 2. Calcified lymph nodes redemonstrated along with innumerable pulmonary nodules, likely associated w ith the patient's history of prior granulomatous disease. ACT 112: Negative or not required by law. The above report was generated using voice recognition software. It may contain grammatical, syntax o r spelling errors. Electronically signed by: Facundo Miller M.D. 02/14/2024 6:45 AM
--- NOTE | 2024-02-14 08:56 | Nephrology Consultation ---
Date of Consultation February 14, 2024 Assessment & Plan (1) LORENZO (acute kidney injury): * Oliguric LORENZO due to septic shock in the setting of ARB and chronic CNI therapy * Patient has mild lower extremity swelling but otherwise appears clinically euvolemic. Electrolyte balance is acceptable. 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 Baseline Cr has risen o 3.0-3.5 * Outpatient immunosuppressive regimen: Neoral 100 mg po BID, MMF 1000 mg po BID and prednisone 5 mg daily (3) Septic shock: * Titrate pressors to maintain MAP 65 or above * Await blood and urine culture results * Continue empiric Rocephin therapy History of Present Illness Reason for Consultation: LORENZO/CKD, LURT Attending Physician: Pa Potter History of Present Illness Mr. Prado is a 63 year old white male who is seen at the request of the [facility] hospitalist service for evaluation of LORENZO/CKD, LURT. Medical records in the EMR were reviewed today and are summarized as follows: Mr. Prado suffered from chronic GN and progressed to ESRD in early 2018. He had a R radiocephalic AVF in place and was started on in-center HD. In March 2019 he received a LURT from his [id number]. [place] [facility]. Post transplant Cr stabilized at 1.2. His immunosuppressive regimen remains Tacrolimus, MMF, Prednisone. In summer 2019 Cr increased to 1.9 and Mr. Prado developed a DVT requiring anticoagulation therapy. Medical evaluation revealed nephrotic range proteinuria (4.4g/day). Transplant kidney biopsy revealed FSGS. Tacrolimus was changed to CSA and Losartan was added to his medical regimen. Unfortunately Mr. Prado suffered a slow decline in transplant function. Cr increased to 3.0-3.5 in late 2020. His current immunosuppressive regimen consists of Neoral 100 mg po BID, MMF 1000 mg po BID and prednisone 5 mg daily. Mr. Prado has a h/o LE DVT managed with warfarin. Unfortunately he has suffered recurrent retroperitoneal hematomas. He has been transition from warfarin to apixaban therapy. Mr. Prado has a history of recurrent UTI. He is not yet on SGLT2 inhibitor therapy. Mr. Lucrecia hooker presented to [facility] EMD 02/13/2024 for evaluation of low-grade fever myalgias and weakness. He was hypotensive with SBP in the low to mid 70s. He was diagnosed with septic shock likely due to UTI and was admitted to the ICU for antibiotic and pressor therapy. Urine culture is currently pending. Initially patient was on ertapenem/daptomycin but has been converted to IV Rocephin therapy. He remains on IV Levophed drip with systolic pressure now in the 80s. Serum creatinine has remained relatively stable at 3.6 potassium is acceptable at 3.6 bicarbonate is acceptable at 21. Mr. Prado is olicuric. His urine output is only been 175 cc since admission. 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 Allergies Allergy/AdvReac Type Severity Reaction Status Date / Time allopurinol Allergy Unknown Rash Verified 01/17/24 12:45 hydromorphone [From Dilaudid] AdvReac Severe confusion Verified 01/17/24 12:45 Home Medications Medication Instructions Recorded Confirmed Type cholecalciferol (vitamin D3) 25 1,000 units PO QAM 04/24/19 01/17/24 History mcg (1,000 unit) capsule docusate sodium 100 mg capsule 100 mg PO BID PRN Constipation 04/24/19 01/17/24 History (Colace) multivitamin (Daily Multi-Vitamin 1 tab PO QAM 04/24/19 01/17/24 History tablet) ferrous sulfate 325 mg (65 mg 325 mg PO BID 08/05/21 01/17/24 History iron) tablet (iron) acetaminophen 500 mg tablet 1,000 mg PO QID PRN Pain 08/24/21 01/17/24 History (Tylenol Extra Strength) mycophenolate mofetil 250 mg 1,000 mg (4 x 250 mg) PO BID #180 08/27/22 01/17/24 Rx capsule (CellCept) caps enoxaparin 30 mg/0.3 mL 30 mg subcut DAILY 02/23/23 01/17/24 History subcutaneous syringe (Lovenox) omeprazole 40 mg capsule,delayed 40 mg PO QAM #90 caps 06/03/23 01/17/24 Rx release prednisone 5 mg tablet 5 mg PO QAM #90 tabs 08/11/23 01/17/24 Rx tamsulosin 0.4 mg capsule (Flomax) 0.4 mg PO HS #90 caps 08/11/23 01/17/24 Rx evolocumab 420 mg/3.5 mL 420 mg (3.5 mL) subcut .ONCE 08/17/23 01/17/24 Rx subcutaneous wearable injector MONTHLY #10.5 mL (Repatha Pushtronex) tadalafil 20 mg tablet (Cialis) 20 mg PO DAILY PRN sexual activity 08/17/23 01/17/24 Rx #5 tabs furosemide 40 mg tablet (Lasix) 20 mg (1/2 x 40 mg) PO QAM #30 tabs 09/03/23 01/17/24 Rx cyclosporine modified 100 mg 100 mg PO BID #180 caps 09/30/23 01/17/24 Rx capsule peg [id number] [id number] See Rx Instructions PO .COMPLEX #2 11/18/23 01/17/24 Rx 178.7-7.3-0.5-1.12-0.9 gram oral mL soln (Suflave) febuxostat 80 mg tablet (Uloric) 80 mg PO QAM #90 tabs 11/29/23 01/17/24 Rx duloxetine 60 mg capsule,delayed 60 mg PO QAM #90 caps 12/13/23 01/17/24 Rx release finasteride 5 mg tablet (Proscar) 5 mg PO QAM #90 tabs 12/22/23 01/17/24 Rx gabapentin 300 mg capsule 600 mg (2 x 300 mg) PO TID 90 days 12/24/23 01/17/24 Rx #540 caps losartan 50 mg tablet 50 mg PO QAM #90 tabs 01/18/24 Rx vibegron 75 mg tablet (Gemtesa) 75 mg PO DAILY #90 tabs 02/09/24 Rx Patient History Medical History FARNAZ (obstructive sleep apnea) CPAP Chronic kidney disease, stage 4 (severe) Erectile dysfunction Chronic anticoagulation Limb alert care status left arm AV fistula LEFT WRIST> NO DIALYSIS CURRENTLY> FISTULA STILL WORKS PER PT SOB (shortness of breath) hx, resolved Urinary retention Bacteremia due to Escherichia coli hx-hospitalized at [facility], treated, resolved Septic shock due to urinary tract infection hx, 2021, [facility] Anemia hx-currently stable Tremor Aortic valve endocarditis hx-developed during a bout of a UTI, in 2021, no current issues Osteoarthritis of left hip Metabolic syndrome Pulmonary nodule duplicate Dyslipidemia Encephalopathy hx-occurred due to fall related to "one of his infections," no current issues Supratherapeutic INR hx GERD (gastroesophageal reflux disease) Small bowel obstruction hx, resolved 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 History of basal cell carcinoma Multiple pulmonary nodules monitoring Nephrolithiasis hx Peripheral neuropathy Venous insufficiency Sarcoidosis f/u dr. cope, [place]. Hypertension Obesity Gout Surgical History History of surgery on right wrist History of cardiac cath 01/2018 > [facility] > NO STENTS; no cardio currently Kidney transplanted APR 04, 2019 > [facility] > right side; f/u dr. diaz, collection systems technician at [place] in conjunction with dr. wilkins, [facility] H/O colonoscopy History of tooth extraction History of tonsillectomy History of melanoma excision left calf Family History Mother Stroke Heart disease Grandmother Cancer Lung disease Denies family history of Ovarian cancer Prostate cancer Colorectal cancer Social History Smoking Status: Never smoker Second Hand Exposure: Yes (hx as child); Do You Dip or Chew Tobacco: No; Hx Alcohol Use: No Hx Substance Use: No Preferred Language: Northern Irish Communication Ability: Effective Visual Impairment: No Limitations Hearing Ability: Normal Vice President Investor Relations Required: No Beliefs That Will Affect Care: None marital status: Current Living Situation: Spouse Current Living Situation Comment: living with . current occupational status: employed current occupation: [employer] How many Children do You have: 1 Other Information That Helps Us Care for You: No Feels Safe at Home: Yes Diet: low salt caffeine: Yes (1-2 iced tea daily) Dental Care, Regularly: Yes Physical Activity Frequency: Does not Exercise Seatbelt Use: always Sunscreen Use: Yes Do you think of yourself as: straight/heterosexual Gender Identity: Male Assistive Devices: CPAP and Glasses Review of Systems Constitutional: no fever Eyes: no problem reported Ear, Nose, Mouth, Throat: no problem reported Respiratory: no cough and no dyspnea Cardiovascular: no chest pain Gastrointestinal: no abdominal pain, no nausea, no vomiting and no diarrhea/loose stools Genitourinary: no dysuria or no hematuria Integumentary: no rash Physical Exam Constitutional: not in distress Eyes: PERRL, conjunctivae normal, anicteric sclerae ENMT: external ear and nose normal, oropharynx normal Neck: trachea midline, no thyromegaly Respiratory: normal respiratory effort, lungs clear to auscultation Cardiovascular: Rate/Rhythm: regular rate and regular rhythm Extremities: + edema (1+ pretibial pitting edema) Gastrointestinal (Abdomen): Inspection/Auscultation: abdomen normal to inspection Skin: no rashes, warm and dry Neurologic: Speech / Cognition: normal speech and normal cognition Results & Data Vital Signs (Past 12 Hours) Vital Signs Temp Pulse Pulse Resp BP BP Pulse Ox 02/14/24 06:30 97/63 L 02/14/24 06:30 84 20 91 02/14/24 06:15 86 19 89 L 02/14/24 06:15 100/64 02/14/24 06:15 100/64 02/14/24 06:15 100/64 02/14/24 06:00 91/63 L 02/14/24 05:45 89 20 91 02/14/24 05:45 87/56 L 02/14/24 05:45 87/56 L 02/14/24 05:15 91/51 L 02/14/24 05:15 91/51 L 02/14/24 05:15 91/51 L 02/14/24 05:12 93 H 22 90 02/14/24 05:00 94 H 21 91 02/14/24 05:00 114/61 02/14/24 05:00 114/61 02/14/24 04:55 97 H 02/14/24 04:51 37.2 C 02/14/24 04:51 02/14/24 04:45 94/57 L 02/14/24 04:45 94 H 21 92 02/14/24 04:39 93 H 18 95 02/14/24 04:35 82/51 L 02/14/24 04:35 82/51 L 02/14/24 04:35 82/51 L 02/14/24 04:31 02/14/24 03:48 100 H 20 97 02/14/24 03:45 92/68 L 02/14/24 03:45 92/68 L 02/14/24 03:45 92/68 L 02/14/24 03:44 101 H 20 92/68 L 96 02/14/24 03:36 101 H 22 96 02/14/24 03:33 100 H 20 97 02/14/24 03:30 75/50 L 02/14/24 03:15 100 H 21 99 02/14/24 03:15 104/65 02/14/24 03:15 104/65 02/14/24 03:00 100 H 23 96 02/14/24 03:00 96/60 L 02/14/24 03:00 96/60 L 02/14/24 02:49 37.4 C 104 H 22 95/50 L 98 02/14/24 02:45 95/50 L 02/14/24 02:45 95/50 L 02/14/24 02:39 95 H 21 95 02/14/24 02:36 96 H 23 93 02/14/24 02:30 74/43 L 02/14/24 02:30 74/43 L 02/14/24 02:18 119 H 23 95 02/14/24 02:17 70/45 L 02/14/24 02:17 70/45 L 02/14/24 02:15 108 H 21 95 02/14/24 02:03 132 H 25 H 95 02/14/24 02:02 86/58 L 02/14/24 02:02 86/58 L 02/14/24 02:02 37.0 C 109 H 22 86/58 L 95 02/14/24 02:00 65/52 L 02/14/24 01:57 112 H 22 94 02/14/24 01:51 110 H 24 94 02/14/24 01:45 84/59 L 02/14/24 01:45 84/59 L 02/14/24 01:37 90/63 L 02/14/24 01:37 90/63 L 02/14/24 01:33 117 H 27 H 93 02/14/24 01:30 119 H 27 H 91 02/14/24 01:30 96/60 L 02/14/24 01:30 96/60 L 02/14/24 01:30 96/60 L 02/14/24 01:30 96/60 L 02/14/24 01:18 123 H 22 93 02/14/24 01:15 118/59 L 02/14/24 01:12 124 H 23 93 02/14/24 01:11 124 H 20 116/71 93 02/14/24 01:06 124 H 27 H 90 02/14/24 01:00 116/71 02/14/24 00:38 38.4 C H 123 H 28 H 160/94 H 91 02/14/24 00:38 02/14/24 00:22 38.4 C H 121 H 30 H 147/87 H 92 02/14/24 00:13 120 H 02/13/24 23:35 117 H 18 140/100 95 02/13/24 22:30 108 H 22 117/77 94 02/13/24 22:14 37.3 C 118 H 16 135/77 94 02/13/24 21:00 116 H 24 127/67 92 Pulse Ox O2 Del Method O2 Del Method O2 Flow Rate 02/14/24 06:30 02/14/24 06:30 02/14/24 06:15 02/14/24 06:15 02/14/24 06:15 02/14/24 06:15 02/14/24 06:00 02/14/24 05:45 02/14/24 05:45 02/14/24 05:45 02/14/24 05:15 02/14/24 05:15 02/14/24 05:15 02/14/24 05:12 02/14/24 05:00 02/14/24 05:00 02/14/24 05:00 02/14/24 04:55 02/14/24 04:51 02/14/24 04:51 91 Room Air 02/14/24 04:45 02/14/24 04:45 02/14/24 04:39 02/14/24 04:35 02/14/24 04:35 02/14/24 04:35 02/14/24 04:31 Room Air 02/14/24 03:48 02/14/24 03:45 02/14/24 03:45 02/14/24 03:45 02/14/24 03:44 Nasal Cannula 2 02/14/24 03:36 02/14/24 03:33 02/14/24 03:30 02/14/24 03:15 02/14/24 03:15 02/14/24 03:15 02/14/24 03:00 02/14/24 03:00 02/14/24 03:00 02/14/24 02:49 Nasal Cannula 2 02/14/24 02:45 02/14/24 02:45 02/14/24 02:39 02/14/24 02:36 02/14/24 02:30 02/14/24 02:30 02/14/24 02:18 02/14/24 02:17 02/14/24 02:17 02/14/24 02:15 02/14/24 02:03 02/14/24 02:02 02/14/24 02:02 02/14/24 02:02 Nasal Cannula 2 02/14/24 02:00 02/14/24 01:57 02/14/24 01:51 02/14/24 01:45 02/14/24 01:45 02/14/24 01:37 02/14/24 01:37 02/14/24 01:33 02/14/24 01:30 02/14/24 01:30 02/14/24 01:30 02/14/24 01:30 02/14/24 01:30 02/14/24 01:18 02/14/24 01:15 02/14/24 01:12 02/14/24 01:11 Room Air 02/14/24 01:06 02/14/24 01:00 02/14/24 00:38 Room Air 02/14/24 00:38 91 Room Air 02/14/24 00:22 Room Air 02/14/24 00:13 02/13/24 23:35 Room Air 02/13/24 22:30 Room Air 02/13/24 22:14 Room Air 02/13/24 21:00 Room Air Laboratory Results Laboratory Tests 01/01/22 05:35 WBC 7.19 Hgb 9.2 L Hct 29.2 L Plt Count 311 Sodium 139 Potassium 4.8 Chloride 108 H Carbon Dioxide 21 BUN 45 H Creatinine 2.89 H Albumin 3.4 Laboratory Results WBC 18.59 K/ul (4.8-10.8) H 02/14/24 04:15 RBC 3.30 M/uL (4.70-6.10) L 02/14/24 04:15 Hgb 10.1 g/dl (14.0-18.0) L 02/14/24 04:15 Hct 32.0 % (42.0-52.0) L 02/14/24 04:15 MCV 97.0 fL (80.0-100.0) 02/14/24 04:15 MCH 30.6 pg (25.0-34.0) 02/14/24 04:15 MCHC 31.6 g/dL (32.0-36.0) L 02/14/24 04:15 RDW Std Deviation 46.0 fL (36.4-46.3) 02/14/24 04:15 RDW Coeff of Theresa 13.0 % (11.5-14.5) 02/14/24 04:15 Plt Count 167 K/uL (130-400) 02/14/24 04:15 MPV 10.5 fL (9.4-12.4) 02/14/24 04:15 Immature Gran % (Auto) 1.0 % 02/14/24 04:15 Neut % (Auto) 90.5 % 02/14/24 04:15 Lymph % (Auto) 1.7 % 02/14/24 04:15 Gem % (Auto) 5.9 % 02/14/24 04:15 Eos % (Auto) 0.6 % 02/14/24 04:15 Baso % (Auto) 0.3 % 02/14/24 04:15 Neut # (Auto) 16.82 K/uL (1.40-6.50) H 02/14/24 04:15 Lymph # (Auto) 0.31 K/uL (1.20-3.40) L 02/14/24 04:15 Gem # (Auto) 1.10 K/uL (0.11-0.59) H 02/14/24 04:15 Eos # (Auto) 0.12 K/uL (0.00-0.50) 02/14/24 04:15 Baso # (Auto) 0.06 K/uL (0.00-0.20) 02/14/24 04:15 Immature Gran # (Auto) 0.18 K/uL (0.01-0.20) 02/14/24 04:15 RBC Morphology Unremarkable 02/13/24 20:30 PT 10.7 Seconds (9.0-12.0) 02/13/24 20:30 INR 1.0 (0.9-1.1) 02/13/24 20:30 Sodium 140 mmol/L (136-145) 02/14/24 04:15 Potassium 3.6 mmol/L (3.5-5.1) D 02/14/24 04:15 Chloride 108 mmol/L (98-107) H 02/14/24 04:15 Carbon Dioxide 21 mmol/L (21-32) 02/14/24 04:15 Anion Gap 11 (3-11) 02/14/24 04:15 BUN 75 mg/dl (6-23) H 02/14/24 04:15 Creatinine 3.67 mg/dl (0.6-1.4) H 02/14/24 04:15 Est Cr Clr Drug Dosing 28.9 ml/min 02/14/24 04:15 Est GFR ( Amer) 19.3 ml/min 02/14/24 04:15 Est GFR (Non-Af Amer) 16.7 ml/min 02/14/24 04:15 BUN/Creatinine Ratio 20.4 (10-20) H 02/14/24 04:15 Glucose 112 mg/dl (70-99(Fasting)) H 02/14/24 04:15 Lactate 2.0 mmol/L (0.4-2.0) 02/13/24 20:30 Calcium 8.8 mg/dl (8.6-10.3) 02/14/24 04:15 Magnesium 1.3 mg/dl (1.7-2.4) L 02/14/24 04:15 Total Bilirubin 0.7 mg/dl (0.2-1.0) 02/14/24 04:15 Direct Bilirubin 0.2 mg/dl (0-0.2) 02/13/24 20:30 AST 9 U/L (13-39) L 02/14/24 04:15 ALT 9 U/L (7-52) 02/14/24 04:15 Alkaline Phosphatase 62 U/L (34-104) 02/14/24 04:15 Troponin I High Sens 11.1 pg/ml (0-20) 02/13/24 20:30 Total Protein 5.9 gm/dl (6.0-8.3) L 02/14/24 04:15 Albumin 4.0 gm/dl (3.4-5.0) 02/14/24 04:15 Globulin 1.9 gm/dl (2.5-4.0) L 02/14/24 04:15 Albumin/Globulin Ratio 2.1 (0.9-2) H 02/14/24 04:15 Lipase 56 U/L (11-82) 02/13/24 20:30 Procalcitonin 0.08 ng/ml (0-0.5) 02/13/24 20:30 Urine Color Yellow 02/13/24 Unknown Urine Appearance Turbid (Clear) A 02/13/24 Unknown Urine pH 5.5 (4.5-7.5) 02/13/24 Unknown Ur Specific [place] 1.014 (1.000-1.030) 02/13/24 Unknown Urine Protein 3+ (Negative) H 02/13/24 Unknown Urine Glucose (UA) Negative (Negative) 02/13/24 Unknown Urine Ketones Negative (Negative) 02/13/24 Unknown Urine Blood 3+ (Negative) H 02/13/24 Unknown Urine Nitrite Negative (Negative) 02/13/24 Unknown Urine Bilirubin Negative (Negative) 02/13/24 Unknown Urine Urobilinogen Negative (Negative) 02/13/24 Unknown Ur Leukocyte Esterase 3+ (Negative) H 02/13/24 Unknown Urine WBC (Auto) >50 /hpf (0-5) H 02/13/24 Unknown Urine RBC (Auto) >20 /hpf (0-2) H 02/13/24 Unknown U Hyaline Cast (Auto) 6-10 /lpf (0-2) H 02/13/24 Unknown U Epithel Cells (Auto) 0-2 /hpf (0-2) 02/13/24 Unknown Urine Bacteria (Auto) 4+ (None Seen) H 02/13/24 Unknown Adenovirus (PCR) Not Detected (NotDetected) 02/13/24 20:45 B. pertussis DNA (PCR) Not Detected (NotDetected) 02/13/24 20:45 B.parapertussis DNA PCR Not Detected (NotDetected) 02/13/24 20:45 C. pneumoniae DNA (PCR) Not Detected (NotDetected) 02/13/24 20:45 Coronavirus OC43 (PCR) Not Detected (NotDetected) 02/13/24 20:45 Coronavirus HKU1 (PCR) Not Detected (NotDetected) 02/13/24 20:45 Coronavirus 229E (PCR) Not Detected (NotDetected) 02/13/24 20:45 SARS-CoV-2 (PCR) Not Detected (NotDetected) 02/13/24 20:45 Coronavirus NL63 (PCR) Not Detected (NotDetected) 02/13/24 20:45 Human Metapneumovir PCR Not Detected (NotDetected) 02/13/24 20:45 Influenza Type A (PCR) Not Detected (NotDetected) 02/13/24 20:45 Influenza Type B (PCR) Not Detected (NotDetected) 02/13/24 20:45 M. pneumoniae (PCR) Not Detected (NotDetected) 02/13/24 20:45 Parainfluenza 1 (PCR) Not Detected (NotDetected) 02/13/24 20:45 Parainfluenza 2 (PCR) Not Detected (NotDetected) 02/13/24 20:45 Parainfluenza 3 (PCR) Not Detected (NotDetected) 02/13/24 20:45 Parainfluenza 4 (PCR) Not Detected (NotDetected) 02/13/24 20:45 RSV (PCR) Not Detected (NotDetected) 02/13/24 20:45 Entero/Rhino (PCR) Not Detected (NotDetected) 02/13/24 20:45 Impressions Chest X-Ray 02/13/24 20:24 XR chest 1V portable HISTORY: 63 years-old Male Sepsis acute sepsis COMPARISON: Chest CT of same day bottles of 09/29/2023 TECHNIQUE: AP view of the chest FINDINGS: Cardiac silhouette is enlarged. Calcified mediastinal and hilar lymphadenopathy redemonstrated along with numerous solid bilateral pulmonary nodules, some which are calcified. No pneumothorax, pleural effusion or overt pulmonary edema. Bones appear grossly intact. Mild sigmoidal scoliosis of the spine. IMPRESSION: 1. Cardiomegaly without acute process of the chest. 2. Calcified lymph nodes redemonstrated along with innumerable pulmonary nodules, likely associated with the patient's history of prior granulomatous disease. ACT 112: Negative or not required by law. The above report was generated using voice recognition software. It may contain grammatical, syntax or spelling errors. Electronically signed by: Facundo Miller M.D. 02/14/2024 6:45 AM Abdomen/Pelvis CT 02/13/24 21:23 Exam(s): CT ABDOMEN + PELVIS Without Contrast EXAM: CT Abdomen and Pelvis Without Intravenous Contrast CLINICAL HISTORY: sepsis, h/o renal transplant. TECHNIQUE: Axial computed tomography images of the abdomen and pelvis without intravenous contrast. CTDI is 24.07 mGy and DLP is 1631.83 mGy-cm. Automated exposure control was utilized for the study. A dose lowering technique was utilized adhering to the principles of ALARA. COMPARISON: Noncontrast CT abdomen and pelvis 08/23/2022 FINDINGS: Lung bases: Diffuse pulmonary nodules noted throughout the lung bases, similar to the previous examination. No consolidation. ABDOMEN: Liver: Similar contours to the liver. No definite focal abnormality. Gallbladder and bile ducts: Unremarkable. No calcified stones. No ductal dilation. Pancreas: Unremarkable. No ductal dilation. Spleen: Unremarkable. No splenomegaly. Adrenals: Unremarkable. No mass. Kidneys and ureters: The [place] kidneys remain markedly atrophic in appearance with irregular hyperdense perinephric fat stranding. No alteration in morphology. No new hydronephrosis or obstructive ureteral stones in the [place] kidneys. A right transplant kidney is identified with similar mild perinephric fat stranding. No hydronephrosis or obstructive ureteral stones. Stomach and bowel: Mild retained oral contents noted in the stomach. No gastric mucosal thickening. No evidence for bowel obstruction. Evaluation of the bowel mucosa is slightly limited without contrast; however, no definite focal asymmetry suggested. Mild to moderate stool burden. No diverticulitis. PELVIS: Appendix: A normal caliber appendix is noted along the posterior aspect of the cecum. Bladder: Mucosal prominence of the bladder is nonspecific with near- complete decompression. No stones. Reproductive: The prostate gland remains enlarged with somewhat less prominent periprostatic fat stranding. Subperitoneal space: The previously noted presacral edema has resolved. ABDOMEN and PELVIS: Intraperitoneal space: Unremarkable. No free air. No significant fluid collection. Bones/joints: No acute fracture. No dislocation. Soft tissues: Fat-containing umbilical hernia is larger in size when compared to the previous examination. No fat stranding or fluid in the herniated fat. Vasculature: Unremarkable. No abdominal aortic aneurysm. Lymph nodes: Unremarkable. No enlarged lymph nodes. IMPRESSION: No significant abnormality definitively identified within the unenhanced abdomen or pelvis to suggest the cause of the patient's reported sepsis. Incidental chronic findings, as noted above, similar to the previous examination. Periprostatic fat stranding is minimally improved from the previous examination. The previously noted presacral edema has resolved. Electronically signed by: Kai Williamson MD 02/13/24 23:[address] 02/13/24 21:23 Exam(s): CT CHEST Without Contrast EXAM: CT Chest Without Intravenous Contrast CLINICAL HISTORY: sepsis, h/o renal transplant. TECHNIQUE: Axial computed tomography images of the chest without intravenous contrast. CTDI is 24.07 mGy and DLP is 1631.83 mGy-cm. Automated exposure control was utilized for the study. A dose lowering technique was utilized adhering to the principles of ALARA. COMPARISON: CT chest without contrast dated 09/29/2023. FINDINGS: Lungs: Diffuse abnormal pulmonary nodules noted throughout the lungs, similar in morphology and appearance to the previous examination. Again, there is heterogeneous mixed calcified and noncalcified nodules noted internally. No appreciable interval increase in size of the nodules noted. No consolidation. Pleural space: Unremarkable. No pneumothorax. No significant effusion. Heart: The cardiac chambers are upper normal limits with at least moderate coronary artery calcification. No significant pericardial effusion. Bones/joints: No acute osseous abnormality. Stable chronic anterior wedging at several thoracic vertebral bodies resulting in accentuated kyphosis, stable. No dislocation. Soft tissues: Unremarkable. Vasculature: The thoracic aorta demonstrates some atherosclerotic calcification without dilation. Lymph nodes: Nonspecific paratracheal lymph nodes and subcarinal lymph nodes. No significant lymphadenopathy. IMPRESSION: No significant abnormality identified within the chest/thorax to suggest the patient's reported sepsis. Diffuse pulmonary nodules and calcified lymph nodes, stable in appearance from the previous examination. Electronically signed by: Kai Williamson MD 02/13/24 23:45 PM PG Care Time/CCT Total # of Minutes Spent Total Time Spent with Patient: Total time spent is greater than 50% in coordination of care (as documented) at patient's floor/unit and/or counseling patient: Coding Level of Care Code 69171 IN/OBS CONSULT LVL 5,80M Diagnoses LORENZO (acute kidney injury) N17.9 Kidney transplant status, living unrelated donor Z94.0 Septic shock A41.9; R65.21
[2024-02-14] MEDS ORDERED: FERROUS SULFATE 325 MG TAB PO SCH (09:00)
[2024-02-14] MEDS ORDERED: MULTIVITAMIN TAB PO SCH (09:00)
[2024-02-14] MEDS ORDERED: FINASTERIDE 5 MG TAB PO SCH (09:00)
[2024-02-14] MEDS ORDERED: CHOLECALCIFEROL 25 MCG (1000 UNITS) TAB PO SCH (09:00)
[2024-02-14] MEDS ORDERED: GABAPENTIN 600 MG TAB PO SCH (09:00)
[2024-02-14] MEDS ORDERED: predniSONE 5 MG TAB PO SCH ×2 (09:00)
[2024-02-14] MEDS ORDERED: HEPARIN SOD 5,000 UNIT/0.5 ML VIAL SQ SCH (09:00)
[2024-02-14] MEDS ORDERED: VIBEGRON 75 MG TAB PO SCH (09:00)
[2024-02-14] MEDS ORDERED: DULoxetine HCL 60 MG CAP PO SCH (09:00)
[2024-02-14] MEDS ORDERED: PANTOprazole 40 MG TAB PO SCH (09:00)
[2024-02-14] MEDS ORDERED: ENOXAPARIN INJ 30 MG/0.3 ML SYR SQ SCH (09:00)
[2024-02-14] MEDS: cefTRIAXone SODIUM 2,000 MG/50 ML BAG IV SCH (09:42)
[2024-02-14] MEDS: ENOXAPARIN INJ 30 MG/0.3 ML SYR SQ SCH (09:44)
[2024-02-14 09:56] LABS: A calco-baum cmplx NotReported Not Detected (NotDetected); Bact fragilis Not Reported Not Detected (NotDetected); Blood Culture Id Panel See PCR Comment (NotDetected); C auris Not Reported Not Detected (NotDetected); CTX-M Resistant Gene Not Detected (NotDetected); Calbicans Not Reported Not Detected (NotDetected); Candida glabrata Not Reported Not Detected (NotDetected); Candida krusei Not Reported Not Detected (NotDetected); Cneoformans/gatti Not Reported Not Detected (NotDetected); Cparapsilosis Not Reported Not Detected (NotDetected); E cloacae compx Not Reported Not Detected (NotDetected); Efaecalis Not Reported Not Detected (NotDetected); Efaecium Not Reported Not Detected (NotDetected); Enterobacterales DETECTED (NotDetected); Enterobacterales Not Reported DETECTED (NotDetected); Escherichia coli Not Reported DETECTED (NotDetected); H influenzae Not Reported Not Detected (NotDetected); IMP Resistant Gene Not Detected (NotDetected); K aerogenes Not Reported Not Detected (NotDetected); KPC Resistant Gene Not Detected (NotDetected); Koxytoca Not Reported Not Detected (NotDetected); Kpneumoniae grp Not Reported Not Detected (NotDetected); Lmonocyt Not Reported Not Detected (NotDetected); N meningitidis Not Reported Not Detected (NotDetected); NDM Resistant Gene Not Detected (NotDetected); OXA 48 Like Resistant Gene Not Detected (NotDetected); P aeruginosa Not Reported Not Detected (NotDetected); Proteus spp Not Reported Not Detected (NotDetected); Salmonella spp Not Reported Not Detected (NotDetected); Staph lugdunensis Not Reported Not Detected (NotDetected); Staph spp. Not Reported Not Detected (NotDetected); Staphaureus Not Reported Not Detected (NotDetected); Staphepi Not Reported Not Detected (NotDetected); Stenmaltophilia Not Reported Not Detected (NotDetected); Strep agal(GrpB) Not Reported Not Detected (NotDetected); Strep pneum Not Reported Not Detected (NotDetected); Strep pyog (GrpA) Not Reported Not Detected (NotDetected); Strep spp Not Reported Not Detected (NotDetected); VIM Resistant Gene Not Detected (NotDetected); mcr-1 Colistin Resistant Gene Not Detected (NotDetected)
[2024-02-14] MEDS: HYDROCORTISONE SOD 50 MG in SYRINGE 0 ML IV SCH (10:51)
[2024-02-14] MEDS: PANTOprazole 40 MG TAB PO SCH (10:52)
[2024-02-14] MEDS: cycloSPORINE 100 MG CAP PO SCH (10:53)
[2024-02-14] MEDS: FLUDROCORTISONE ACETATE 0.1 MG TAB PO SCH (10:53)
[2024-02-14] MEDS: MYCOPHENOLATE MOFETIL 250 MG CAP PO SCH (10:53)
[2024-02-14] MEDS ORDERED: PANTOprazole 40 MG in SYRINGE 0 ML IV SCH (11:00)
[2024-02-14] MEDS ORDERED: HYDROCORTISONE SOD 100 MG in SYRINGE 0 ML IV SCH (12:00)
[2024-02-14] MEDS: MEROPENEM 500 MG in SYRINGE 0 ML IV SCH (14:46)
--- NOTE | 2024-02-14 17:11 | XCELERA ---
[id number] \\[id number]
[2024-02-14] MEDS ORDERED: TAMSULOSIN HCL 0.4 MG CAP PO SCH (21:00)
--- NOTE | 2024-02-14 21:56 | Hospitalist Progress Note ---
Date of Service February 14, 2024 Assessment & Plan (1) Septic shock: (2) Complicated urinary tract infection: (3) History of kidney transplant: (4) Chronic anticoagulation: (5) Immunocompromised: (6) CKD (chronic kidney disease) stage 4, GFR 15-29 ml/min: (7) GERD (gastroesophageal reflux disease): (8) Obstructive sleep apnea: (9) Hyperlipidemia: (10) Hypertension: Plan Septic shock/complicated UTI/admit to ICU- Follow urine culture and sensitivity History of pansensitive Citrobacter koseri in urine and blood History of ESBL E. coli Admit on daptomycin IV and ertapenem IV Patient now is off levophed. Stress dose steroids, hydrocortisone 100 mg IV every 8 hours Hold all oral medications for now except cyclosporine and mycophenolate Patient is off pressors. Transfer out of the ICU continue steroids. Renal transplant status/ acute kidney injury superimposed on CKD stage IV- Continue cyclosporine 100 mg p.o. twice daily, and mycophenolate 1000 mg p.o. twice daily. Holding oral prednisone, and placed on stress dose hydrocortisone IV Creatinine 3.59, with base 2.91 Follow laboratory serially in the a.m. Consult nephrology Dr. Aguilera Hypomagnesemia- Magnesium 1.4 upon admission Replace with IV, recheck laboratories in the a.m. BPH with LUTS- For now hold tamsulosin and vibegron Admission and Anticipated Discharge Date Admission Date: February 13, 2024 Subjective Patient reports no new symptoms. Review of Systems Review of Systems: All systems reviewed & are unremarkable except as noted in HPI & below Physical Exam Physical Exam: The patient upon arrival was awake, alert and oriented. HEENT--PERRL, EOMI, mucous membranes moist. Neck--supple. No JVD. No bruits. Thyroid normal, trachea midline, no adenopathy. Heart--normal S1 and S2. No murmurs, rubs or gallops. Lungs--clear bilaterally, no respiratory distress, no accessory muscle use. Abdomen--normal bowel sounds and soft. Nontender. Nondistended. Obese Extremities--chronic venous stasis changes. Trace pitting edema. There are good distal pulses b/l. Dermatologic--normal skin turgor Neurologic--cranial nerves II through XII grossly intact. Rheumatologic--normal range of motion. Psychiatric--normal affect upon arrival, he did become more confused. Results & Data Results & Data Vital Signs (Past 12 Hours) Vital Signs Temp Pulse Resp BP Pulse Ox 02/14/24 16:37 74 02/14/24 16:03 100 H 19 146/84 H 02/14/24 16:00 36.9 C 02/14/24 15:03 21 133/82 76 L 02/14/24 14:45 78 18 125/77 96 02/14/24 14:30 131/78 02/14/24 14:15 75 22 118/74 94 02/14/24 14:00 131/74 02/14/24 13:45 75 19 112/73 95 02/14/24 13:30 76 21 122/73 95 02/14/24 12:52 36.9 C 02/14/24 12:45 124/76 02/14/24 12:30 79 18 117/84 97 02/14/24 12:15 78 24 117/84 97 02/14/24 11:45 98/71 L 02/14/24 11:42 75 18 112/71 95 02/14/24 11:30 77 18 115/70 95 02/14/24 11:03 77 16 115/73 96 02/14/24 10:45 103/76 02/14/24 10:30 79 36 H 99/69 L 94 02/14/24 10:15 111/58 L 02/14/24 10:01 105/71 PG Care Time/CCT Total # of Minutes Spent Total Time Spent with Patient: Total time spent is greater than 50% in coordination of care (as documented) at patient's floor/unit and/or counseling patient: Coding Level of Care Code 59695 SUB INP/OBS CARE 2/35MIN Diagnoses Septic shock A41.9; R65.21 Complicated urinary tract infection N39.0 History of kidney transplant Z94.0 Chronic anticoagulation Z79.01 Immunocompromised D84.9 CKD (chronic kidney disease) stage 4, GFR 15-29 ml/min N18.4 Gastroesophageal reflux disease without esophagitis K21.9 Esophagitis presence: without esophagitis Obstructive sleep apnea G47.33 Hyperlipidemia E78.5 Essential hypertension I10 Hypertension type: essential hypertension (7) GERD (gastroesophageal reflux disease) Esophagitis presence: without esophagitis Qualified Code(s): K21.9 - Gastro- esophageal reflux disease without esophagitis (10) Hypertension Hypertension type: essential hypertension Qualified Code(s): I10 - Essential (primary) hypertension
[2024-02-14] MEDS ORDERED: ERTAPENEM SODIUM 500 MG in SYRINGE 0 ML IV SCH (22:00)
[2024-02-15 04:21] LABS: Hematocrit (blood only) 30.8 % (42.0-52.0); Hemoglobin 9.8 g/dl (14.0-18.0); Mean Corpuscular Hemoglobin 30.6 pg (25.0-34.0); Mean Corpuscular Hgb Conc 31.8 g/dL (32.0-36.0); Mean Corpuscular Volume 96.3 fL (80.0-100.0); Mean Platelet Volume 11.1 fL (9.4-12.4); Platelet Count 155 K/uL (130-400); RDW Coefficient of Variation 13.3 % (11.5-14.5); White Blood Count 27.08 K/ul (4.8-10.8)
[2024-02-15 04:29] LABS: Basophils # (auto) 0.05 K/uL (0.00-0.20); Basophils % (auto) 0.2 %; Immature Granulocytes # (auto) 1.45 K/uL (0.01-0.20); Immature Granulocytes % (auto) 5.4 %; Lymphocytes # (auto) 0.24 K/uL (1.20-3.40); Lymphocytes % (auto) 0.9 %; Monocytes # (auto) 1.42 K/uL (0.11-0.59); Monocytes % (auto) 5.2 %; Neutrophils # (auto) 23.92 K/uL (1.40-6.50); Neutrophils % (auto) 88.3 %
[2024-02-15 04:38] LABS: Albumin Globulin Ratio 1.8 (0.9-2); Albumin Level 3.9 gm/dl (3.4-5.0); BUN Creatinine Ratio 21.6 (10-20); Bilirubin,Total 0.6 mg/dl (0.2-1.0); Calcium 8.6 mg/dl (8.6-10.3); Creatinine Clr Calc Pharmacy 25.3 ml/min; Est GFR (African American) 16.3 ml/min; Est GFR (Non-African American) 14.1 ml/min; Globulin 2.2 gm/dl (2.5-4.0); Magnesium 1.9 mg/dl (1.7-2.4); Phosphorus 3.9 mg/dl (2.5-4.9); Potassium 4.4 mmol/L (3.5-5.1); Total Protein 6.1 gm/dl (6.0-8.3)
--- NOTE | 2024-02-15 06:32 | Electrocardiogram Report ---
Test Reason : Blood Pressure : */* mmHG Vent. Rate : 111 BPM Atrial Rate : 111 BPM P-R Int : 152 ms QRS Dur : 116 ms QT Int : 334 ms P-R-T Axes : 42 -61 54 degrees QTcB Int : 454 ms Poor data quality, interpretation may be adversely affected Sinus tachycardia with Fusion complexes Incomplete right bundle branch block Left anterior fascicular block Minimal voltage criteria for LVH, may be normal variant ( R in aVL ) Septal infarct Abnormal ECG When compared with ECG of 11-Nov-2022 22:48, HR has increased Confirmed by Saleem Castellon ([id number]) on 02/15/2024 6:32:08 AM Referred By: REFERRED SELF Confirmed By: Saleem Castellon
--- NOTE | 2024-02-15 08:35 | Nephrology Progress Note ---
Date of Service February 15, 2024 Assessment & Plan (1) LORENZO (acute kidney injury): Plan: * Oliguric LORENZO due to septic shock in the setting of ARB and chronic CNI therapy * Remains in injury phase of LORENZO/ATN * Patient remains clinically euvolemic. Electrolyte balance is acceptable. 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 Baseline Cr has risen o 3.0-3.5 * Outpatient immunosuppressive regimen: Neoral 100 mg po BID, MMF 1000 mg po BID and prednisone 5 mg daily (3) Septic shock: Plan: * Pressors have been weaned to off * Blood culture is + for gram negative bacilli * Continue empiric Rocephin therapy Admission and Anticipated Discharge Date Admission Date: February 13, 2024 Subjective Mr. Prado was evaluated in his hospital room this morning. He was much more alert. Mr. Prado was breathing comfortably on RA. He was weaned off pressor support yesterday Review of Systems Constitutional: no fever Eyes: no problem reported Ear, Nose, Mouth, Throat: no problem reported Respiratory: no cough and no dyspnea Cardiovascular: no chest pain Gastrointestinal: no abdominal pain, no nausea, no vomiting and no diarrhea/loose stools Genitourinary: no dysuria or no hematuria Integumentary: no rash Physical Exam Constitutional: not in distress Eyes: PERRL, conjunctivae normal, anicteric sclerae ENMT: external ear and nose normal, oropharynx normal Neck: trachea midline, no thyromegaly Respiratory: normal respiratory effort, lungs clear to auscultation Cardiovascular: Rate/Rhythm: regular rate and regular rhythm Extremities: + edema (1+ pretibial pitting edema) Gastrointestinal (Abdomen): Inspection/Auscultation: abdomen normal to inspection Skin: no rashes, warm and dry Neurologic: Speech / Cognition: normal speech and normal cognition Results & Data Vital Signs (Past 12 Hours) Vital Signs Temp Pulse Pulse Resp BP BP Pulse Ox 02/15/24 08:00 36.7 C 74 18 141/88 H 98 02/15/24 08:00 65 02/15/24 08:00 02/15/24 06:03 66 14 02/15/24 04:03 65 15 02/15/24 03:31 36.6 C 02/15/24 02:24 70 18 98 02/15/24 02:23 170/95 H 98 02/15/24 02:23 170/95 H 02/15/24 02:06 130 H 19 02/15/24 02:03 93 H 17 02/15/24 02:01 155/85 H 02/15/24 02:01 155/85 H 02/15/24 02:01 155/85 H 02/15/24 01:54 67 25 H 02/15/24 00:06 71 19 02/15/24 00:00 152/81 H 96 02/14/24 23:57 68 16 02/14/24 23:55 74 02/14/24 23:35 36.6 C 69 17 163/86 H 94 02/14/24 23:33 163/86 H 02/14/24 23:30 68 14 02/14/24 22:03 89 21 02/14/24 22:00 140/93 02/14/24 22:00 140/93 02/14/24 22:00 140/93 02/14/24 21:51 71 23 O2 Del Method 02/15/24 08:00 Room Air 02/15/24 08:00 02/15/24 08:00 Room Air 02/15/24 06:03 02/15/24 04:03 02/15/24 03:31 02/15/24 02:24 02/15/24 02:23 02/15/24 02:23 02/15/24 02:06 02/15/24 02:03 02/15/24 02:01 02/15/24 02:01 02/15/24 02:01 02/15/24 01:54 02/15/24 00:06 02/15/24 00:00 02/14/24 23:57 02/14/24 23:55 02/14/24 23:35 Room Air 02/14/24 23:33 02/14/24 23:30 02/14/24 22:03 02/14/24 22:00 02/14/24 22:00 02/14/24 22:00 02/14/24 21:51 Laboratory Results Laboratory Results - last 24 hr 02/13/24 02/14/24 02/14/24 20:45 04:10 12:13 WBC RBC Hgb Hct MCV MCH MCHC RDW Std Deviation RDW Coeff of Theresa Plt Count MPV Immature Gran % (Auto) Neut % (Auto) Lymph % (Auto) [place] % (Auto) Eos % (Auto) Baso % (Auto) Neut # (Auto) Lymph # (Auto) [place] # (Auto) Eos # (Auto) Baso # (Auto) Immature Gran # (Auto) Sodium Potassium Chloride Carbon Dioxide Anion Gap BUN Creatinine Est Cr Clr Drug Dosing Est GFR ( Amer) Est GFR (Non-Af Amer) BUN/Creatinine Ratio Glucose POC Glucose 122 H Calcium Phosphorus Magnesium Total Bilirubin AST ALT Alkaline Phosphatase Total Protein Albumin Globulin Albumin/Globulin Ratio Nasal Screen MRSA (PCR) Negative Enterobacterales (PCR) DETECTED A E. coli (PCR) DETECTED A mcr-1 [place] Res Gene PCR Not Detected blaIMP Car res Gene PCR Not Detected KPC-Carbap Res Gene PCR Not Detected blaNDM Car Res Gene PCR Not Detected OXA-48 Carbapenem Resis Gene (PCR) Not Detected blaVIM Car Res Gene PCR Not Detected CTX-M Gene Resistance (PCR) Not Detected Bld Cult ID Panel PCR See PCR Comment 02/15/24 03:41 WBC 27.08 H RBC 3.20 L Hgb 9.8 L Hct 30.8 L MCV 96.3 MCH 30.6 MCHC 31.8 L RDW Std Deviation 47.0 H RDW Coeff of Theresa 13.3 Plt Count 155 MPV 11.1 Immature Gran % (Auto) 5.4 Neut % (Auto) 88.3 Lymph % (Auto) 0.9 [place] % (Auto) 5.2 Eos % (Auto) 0.0 Baso % (Auto) 0.2 Neut # (Auto) 23.92 H Lymph # (Auto) 0.24 L [place] # (Auto) 1.42 H Eos # (Auto) 0.00 Baso # (Auto) 0.05 Immature Gran # (Auto) 1.45 H Sodium 138 Potassium 4.4 D Chloride 105 Carbon Dioxide 21 Anion Gap 12 H BUN 91 H Creatinine 4.22 H D Est Cr Clr Drug Dosing 25.3 Est GFR ( Amer) 16.3 Est GFR (Non-Af Amer) 14.1 BUN/Creatinine Ratio 21.6 H Glucose 124 H POC Glucose Calcium 8.6 Phosphorus 3.9 Magnesium 1.9 Total Bilirubin 0.6 AST 9 L ALT 10 Alkaline Phosphatase 62 Total Protein 6.1 Albumin 3.9 Globulin 2.2 L Albumin/Globulin Ratio 1.8 Nasal Screen MRSA (PCR) Enterobacterales (PCR) E. coli (PCR) mcr-1 [place] Res Gene PCR blaIMP Car res Gene PCR KPC-Carbap Res Gene PCR blaNDM Car Res Gene PCR OXA-48 Carbapenem Resis Gene (PCR) blaVIM Car Res Gene PCR CTX-M Gene Resistance (PCR) Bld Cult ID Panel PCR PG Care Time/CCT Total # of Minutes Spent Total Time Spent with Patient: Total time spent is greater than 50% in coordination of care (as documented) at patient's floor/unit and/or counseling patient: Coding Level of Care Code 64989 SUB INP/OBS CARE 3/50MIN Diagnoses LORENZO (acute kidney injury) N17.9 Kidney transplant status, living unrelated donor Z94.0 Septic shock A41.9; R65.21
--- NOTE | 2024-02-15 10:17 | Infectious Disease Consult ---
Date of Consultation February 15, 2024 Assessment & Plan (1) Kidney transplant status, living unrelated donor: (2) Septic shock: Plan #Ecoli sepsis likely secondary to UTI #LURT 2019 IS: Neoral, MMF, prednisone #CKD (new cr baseline about 3) #Leukocytosis MICRO 02/12 BCx GNR, BCID +Ecoli. 02/12 Ucx in lab 63 yo M with h/o LURT in 2019 with worsening renal function (recent baselin around 3) chronic GN, HLD, FARNAZ, rectal rectal sheath hematoma, chronic UTIs, admitted with fevers and found to have be in septic shock. Patient underwent LURT in 2019 at [facility] in [place]. Post transplant Cr stabilized at 1.2. His immunosuppressive regimen remains Tacrolimus, MMF, Prednisone, found to have worsening Cr, TP kidney biopsy showed FSGS. Patient had DVT requiring anticoagulation therapy which was c/b RP hematomas (recurrent). Transplant kidney biopsy revealed FSGS. Patient continued to have slow decline in renal function, with IS changed to Neoral 100 mg po BID, MMF 1000 mg po BID and prednisone 5 mg daily. Patient presented on 02/13/2024 for for fever smyalgias and weakness. He was found to be hypotensive and TF to ICU for pressor support. Initially given Ceftriaxone then Ertapenem/Daptomycin. UA turbid with pyuria, UCX P, 02/12 BCx GNR, BCID +Ecoli. Patient currently on Meropenem. WBC initially 12 now 27, Cr 3.59 now increasing, for which Nephrology consulted and following. CT CAP no obvious source. On my interview, he stated his chills started a few days prior to presentation, No CP/SOB, no prior diarrhea, today has loose stool, Initially pain had a discomfort with urination prior to admission, patient states that has resolved RECOMMEND: -C/W Meropenem (renally dosed) -Follow Ecoli Sensi and Ucx -Repeat Bcx to document clearance -WBC up likely dt steroids -Consider gentle IV Fluid hydration - Cr increasing ID will follow Ayla Tracy MD Infectious Diseases Consultation Information Consultation was provided via telemedicine using two-way real-time interactive telecommunication between the patient and the telemedicine provider. For the duration of the visit, the provider was performing the assessment from a different facility than the patient. This includesuse of bluetooth stethoscope forauscultationperformed by the telepresenter that the telemedicine provider can hear if described in the physical exam. [employer] contact information: Please call [facility] . (Phone Number For Physician Use Only) After establishing a telemedicine visit, patient was: Patient was verified with two unique identifiers, Patient/authorized rep acknowledged consent and understanding and Gave permission to continue telehealth session Time Spent with Patient: Initial => 55 min History of Present Illness Reason for Consultation: Gram negative sepsis Requesting Physician: Dr. Potter Attending Physician: Pa Potter History of Present Illness 63 yo M with h/o LURT in 2019 with worsening renal function (recent baselin around 3) chronic GN, HLD, FARNAZ, rectal rectal sheath hematoma, chronic UTIs, admitted with fevers and found to have be in septic shock. Patient underwent LURT in 2019 at [facility] in [place]. Post transplant Cr stabilized at 1.2. His immunosuppressive regimen remains Tacrolimus, MMF, Prednisone, found to have worsening Cr, TP kidney biopsy showed FSGS. Patient had DVT requiring anticoagulation therapy which was c/b RP hematomas (recurrent). Transplant kidney biopsy revealed FSGS. Patient continued to have slow decline in renal function, with IS changed to Neoral 100 mg po BID, MMF 1000 mg po BID and prednisone 5 mg daily. Patient presented on 02/13/2024 for for fever smyalgias and weakness. He was fou nd to be hypotensive and TF to ICU for pressor support. Initially given Ceftriaxone then Ertapenem/Daptomycin. UA turbid with pyuria, UCX P, 02/12 BCx GNR, BCID +Ecoli. Patient currently on Meropenem. WBC initially 12 now 27, Cr 3.59 now increasing, for which Nephrology consulted and following. CT CAP no obvious source. On my interview, he stated his chills started a few days prior to presentation, No CP/SOB, no prior diarrhea, today has loose stool, Initially pain had a discomfort with urination prior to admission, patient states that has resolved PIVs only, L arm fistula (not being used) Allergies Allergy/AdvReac Type Severity Reaction Status Date / Time allopurinol Allergy Unknown Rash Verified 01/17/24 12:45 hydromorphone [From Dilaudid] AdvReac Severe confusion Verified 01/17/24 12:45 Home Medications Medication Instructions Recorded Confirmed Type cholecalciferol (vitamin D3) 25 1,000 units PO QAM 04/24/19 01/17/24 History mcg (1,000 unit) capsule docusate sodium 100 mg capsule 100 mg PO BID PRN Constipation 04/24/19 01/17/24 History (Colace) multivitamin (Daily Multi-Vitamin 1 tab PO QAM 04/24/19 01/17/24 History tablet) ferrous sulfate 325 mg (65 mg 325 mg PO BID 08/05/21 01/17/24 History iron) tablet (iron) acetaminophen 500 mg tablet 1,000 mg PO QID PRN Pain 08/24/21 01/17/24 History (Tylenol Extra Strength) mycophenolate mofetil 250 mg 1,000 mg (4 x 250 mg) PO BID #180 08/27/22 01/17/24 Rx capsule (CellCept) caps enoxaparin 30 mg/0.3 mL 30 mg subcut DAILY 02/23/23 01/17/24 History subcutaneous syringe (Lovenox) omeprazole 40 mg capsule,delayed 40 mg PO QAM #90 caps 06/03/23 01/17/24 Rx release prednisone 5 mg tablet 5 mg PO QAM #90 tabs 08/11/23 01/17/24 Rx tamsulosin 0.4 mg capsule (Flomax) 0.4 mg PO HS #90 caps 08/11/23 01/17/24 Rx evolocumab 420 mg/3.5 mL 420 mg (3.5 mL) subcut .ONCE 08/17/23 01/17/24 Rx subcutaneous wearable injector MONTHLY #10.5 mL (Repatha Pushtronex) tadalafil 20 mg tablet (Cialis) 20 mg PO DAILY PRN sexual activity 08/17/23 01/17/24 Rx #5 tabs furosemide 40 mg tablet (Lasix) 20 mg (1/2 x 40 mg) PO QAM #30 tabs 09/03/23 01/17/24 Rx cyclosporine modified 100 mg 100 mg PO BID #180 caps 09/30/23 01/17/24 Rx capsule peg 3350-sod sulf,[id number] See Rx Instructions PO .COMPLEX #2 11/18/23 01/17/24 Rx 178.7-7.3-0.5-1.12-0.9 gram oral mL soln (Suflave) febuxostat 80 mg tablet (Uloric) 80 mg PO QAM #90 tabs 11/29/23 01/17/24 Rx duloxetine 60 mg capsule,delayed 60 mg PO QAM #90 caps 12/13/23 01/17/24 Rx release finasteride 5 mg tablet (Proscar) 5 mg PO QAM #90 tabs 12/22/23 01/17/24 Rx gabapentin 300 mg capsule 600 mg (2 x 300 mg) PO TID 90 days 12/24/23 01/17/24 Rx #540 caps losartan 50 mg tablet 50 mg PO QAM #90 tabs 01/18/24 Rx vibegron 75 mg tablet (Gemtesa) 75 mg PO DAILY #90 tabs 02/09/24 Rx Patient History Medical History FARNAZ (obstructive sleep apnea) CPAP Chronic kidney disease, stage 4 (severe) Erectile dysfunction Chronic anticoagulation Limb alert care status left arm AV fistula LEFT WRIST> NO DIALYSIS CURRENTLY> FISTULA STILL WORKS PER PT SOB (shortness of breath) hx, resolved Urinary retention Bacteremia due to Escherichia coli hx-hospitalized at [facility], treated, resolved Septic shock due to urinary tract infection hx, 2021, [facility] Anemia hx-currently stable Tremor Aortic valve endocarditis hx-developed during a bout of a UTI, in 2021, no current issues Osteoarthritis of left hip Metabolic syndrome Pulmonary nodule duplicate Dyslipidemia Encephalopathy hx-occurred due to fall related to "one of his infections," no current issues Supratherapeutic INR hx GERD (gastroesophageal reflux disease) Small bowel obstruction hx, resolved 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 History of basal cell carcinoma Multiple pulmonary nodules monitoring Nephrolithiasis hx Peripheral neuropathy Venous insufficiency Sarcoidosis f/u dr. cope, [place]. 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 wilkins, 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 current occupational status: employed current occupation: [employer] How many Children do You have: 1 Other Information That Helps Us Care for You: No Feels Safe at Home: Yes Diet: low salt caffeine: Yes (1-2 iced tea daily) Dental Care, Regularly: Yes Physical Activity Frequency: Does not Exercise Seatbelt Use: always Sunscreen Use: Yes Do you think of yourself as: straight/heterosexual Gender Identity: Male Assistive Devices: CPAP Physical Exam Physical Exam: NAD PIVS Soft NT ND No TTP Results & Data Vital Signs (Past 12 Hours) Vital Signs Temp Pulse Pulse Resp BP BP Pulse Ox 02/15/24 08:00 36.7 C 74 18 141/88 H 98 02/15/24 08:00 65 02/15/24 08:00 02/15/24 06:03 66 14 02/15/24 04:03 65 15 02/15/24 03:31 36.6 C 02/15/24 02:24 70 18 98 02/15/24 02:23 170/95 H 98 02/15/24 02:23 170/95 H 02/15/24 02:06 130 H 19 02/15/24 02:03 93 H 17 02/15/24 02:01 155/85 H 02/15/24 02:01 155/85 H 02/15/24 02:01 155/85 H 02/15/24 01:54 67 25 H 02/15/24 00:06 71 19 02/15/24 00:00 152/81 H 96 02/14/24 23:57 68 16 02/14/24 23:55 74 02/14/24 23:35 36.6 C 69 17 163/86 H 94 02/14/24 23:33 163/86 H 02/14/24 23:30 68 14 O2 Del Method 02/15/24 08:00 Room Air 02/15/24 08:00 02/15/24 08:00 Room Air 02/15/24 06:03 02/15/24 04:03 02/15/24 03:31 02/15/24 02:24 02/15/24 02:23 02/15/24 02:23 02/15/24 02:06 02/15/24 02:03 02/15/24 02:01 02/15/24 02:01 02/15/24 02:01 02/15/24 01:54 02/15/24 00:06 02/15/24 00:00 02/14/24 23:57 02/14/24 23:55 02/14/24 23:35 Room Air 02/14/24 23:33 02/14/24 23:30 Laboratory Results Laboratory Results - last 48 hr 02/13/24 02/13/24 02/13/24 20:30 20:45 Unknown WBC 12.06 H RBC 3.88 L Hgb 11.8 L Hct 37.4 L MCV 96.4 MCH 30.4 MCHC 31.6 L RDW Std Deviation 45.6 RDW Coeff of Theresa 13.0 Plt Count 200 MPV 10.7 Immature Gran % (Auto) 0.4 Neut % (Auto) 91.7 Lymph % (Auto) 3.1 Grainger % (Auto) 3.3 Eos % (Auto) 1.2 Baso % (Auto) 0.3 Neut # (Auto) 11.06 H Lymph # (Auto) 0.37 L Grainger # (Auto) 0.40 Eos # (Auto) 0.14 Baso # (Auto) 0.04 Immature Gran # (Auto) 0.05 RBC Morphology Unremarkable PT 10.7 INR 1.0 Sodium 138 Potassium 4.7 Chloride 103 Carbon Dioxide 23 Anion Gap 12 H BUN 76 H Creatinine 3.59 H Est Cr Clr Drug Dosing Not Reportable Est GFR ( Amer) 19.8 Est GFR (Non-Af Amer) 17.1 BUN/Creatinine Ratio 21.2 H Glucose 112 H POC Glucose Lactate 2.0 Calcium 10.0 Phosphorus Magnesium 1.4 L Total Bilirubin 0.6 Direct Bilirubin 0.2 AST 10 L ALT 12 Alkaline Phosphatase 81 Troponin I High Sens 11.1 Total Protein 7.1 Albumin 4.6 Globulin Albumin/Globulin Ratio Lipase 56 Procalcitonin 0.08 Urine Color Yellow Urine Appearance Turbid A Urine pH 5.5 Ur Specific Imogene 1.014 Urine Protein 3+ H Urine Glucose (UA) Negative Urine Ketones Negative Urine Blood 3+ H Urine Nitrite Negative Urine Bilirubin Negative Urine Urobilinogen Negative Ur Leukocyte Esterase 3+ H Urine WBC (Auto) >50 H Urine RBC (Auto) >20 H U Hyaline Cast (Auto) 6-10 H U Epithel Cells (Auto) 0-2 Urine Bacteria (Auto) 4+ H Nasal Screen MRSA (PCR) Adenovirus (PCR) Not Detected B. pertussis DNA (PCR) Not Detected B.parapertussis DNA PCR Not Detected C. pneumoniae DNA (PCR) Not Detected Coronavirus OC43 (PCR) Not Detected Coronavirus HKU1 (PCR) Not Detected Coronavirus 229E (PCR) Not Detected SARS-CoV-2 (PCR) Not Detected Coronavirus NL63 (PCR) Not Detected Enterobacterales (PCR) DETECTED A E. coli (PCR) DETECTED A Human Metapneumovir PCR Not Detected Influenza Type A (PCR) Not Detected Influenza Type B (PCR) Not Detected M. pneumoniae (PCR) Not Detected Parainfluenza 1 (PCR) Not Detected Parainfluenza 2 (PCR) Not Detected Parainfluenza 3 (PCR) Not Detected Parainfluenza 4 (PCR) Not Detected RSV (PCR) Not Detected Entero/Rhino (PCR) Not Detected mcr-1 Colistin Res Gene PCR Not Detected blaIMP Car res Gene PCR Not Detected KPC-Carbap Res Gene PCR Not Detected blaNDM Car Res Gene PCR Not Detected OXA-48 Carbapenem Resis Gene (PCR) Not Detected blaVIM Car Res Gene PCR Not Detected CTX-M Gene Resistance (PCR) Not Detected Bld Cult ID Panel PCR See PCR Comment 02/14/24 02/14/24 02/14/24 04:10 04:15 12:13 WBC 18.59 H RBC 3.30 L Hgb 10.1 L Hct 32.0 L MCV 97.0 MCH 30.6 MCHC 31.6 L RDW Std Deviation 46.0 RDW Coeff of Theresa 13.0 Plt Count 167 MPV 10.5 Immature Gran % (Auto) 1.0 Neut % (Auto) 90.5 Lymph % (Auto) 1.7 Grainger % (Auto) 5.9 Eos % (Auto) 0.6 Baso % (Auto) 0.3 Neut # (Auto) 16.82 H Lymph # (Auto) 0.31 L Grainger # (Auto) 1.10 H Eos # (Auto) 0.12 Baso # (Auto) 0.06 Immature Gran # (Auto) 0.18 RBC Morphology PT INR Sodium 140 Potassium 3.6 D Chloride 108 H Carbon Dioxide 21 Anion Gap 11 BUN 75 H Creatinine 3.67 H Est Cr Clr Drug Dosing 28.9 Est GFR ( Amer) 19.3 Est GFR (Non-Af Amer) 16.7 BUN/Creatinine Ratio 20.4 H Glucose 112 H POC Glucose 122 H Lactate Calcium 8.8 Phosphorus Magnesium 1.3 L Total Bilirubin 0.7 Direct Bilirubin AST 9 L ALT 9 Alkaline Phosphatase 62 Troponin I High Sens Total Protein 5.9 L Albumin 4.0 Globulin 1.9 L Albumin/Globulin Ratio 2.1 H Lipase Procalcitonin Urine Color Urine Appearance Urine pH Ur Specific Imogene Urine Protein Urine Glucose (UA) Urine Ketones Urine Blood Urine Nitrite Urine Bilirubin Urine Urobilinogen Ur Leukocyte Esterase Urine WBC (Auto) Urine RBC (Auto) U Hyaline Cast (Auto) U Epithel Cells (Auto) Urine Bacteria (Auto) Nasal Screen MRSA (PCR) Negative Adenovirus (PCR) B. pertussis DNA (PCR) B.parapertussis DNA PCR C. pneumoniae DNA (PCR) Coronavirus OC43 (PCR) Coronavirus HKU1 (PCR) Coronavirus 229E (PCR) SARS-CoV-2 (PCR) Coronavirus NL63 (PCR) Enterobacterales (PCR) E. coli (PCR) Human Metapneumovir PCR Influenza Type A (PCR) Influenza Type B (PCR) M. pneumoniae (PCR) Parainfluenza 1 (PCR) Parainfluenza 2 (PCR) Parainfluenza 3 (PCR) Parainfluenza 4 (PCR) RSV (PCR) Entero/Rhino (PCR) mcr-1 Colistin Res Gene PCR blaIMP Car res Gene PCR KPC-Carbap Res Gene PCR blaNDM Car Res Gene PCR OXA-48 Carbapenem Resis Gene (PCR) blaVIM Car Res Gene PCR CTX-M Gene Resistance (PCR) Bld Cult ID Panel PCR 02/15/24 03:41 WBC 27.08 H RBC 3.20 L Hgb 9.8 L Hct 30.8 L MCV 96.3 MCH 30.6 MCHC 31.8 L RDW Std Deviation 47.0 H RDW Coeff of Theresa 13.3 Plt Count 155 MPV 11.1 Immature Gran % (Auto) 5.4 Neut % (Auto) 88.3 Lymph % (Auto) 0.9 Grainger % (Auto) 5.2 Eos % (Auto) 0.0 Baso % (Auto) 0.2 Neut # (Auto) 23.92 H Lymph # (Auto) 0.24 L Grainger # (Auto) 1.42 H Eos # (Auto) 0.00 Baso # (Auto) 0.05 Immature Gran # (Auto) 1.45 H RBC Morphology PT INR Sodium 138 Potassium 4.4 D Chloride 105 Carbon Dioxide 21 Anion Gap 12 H BUN 91 H Creatinine 4.22 H D Est Cr Clr Drug Dosing 25.3 Est GFR ( Amer) 16.3 Est GFR (Non-Af Amer) 14.1 BUN/Creatinine Ratio 21.6 H Glucose 124 H POC Glucose Lactate Calcium 8.6 Phosphorus 3.9 Magnesium 1.9 Total Bilirubin 0.6 Direct Bilirubin AST 9 L ALT 10 Alkaline Phosphatase 62 Troponin I High Sens Total Protein 6.1 Albumin 3.9 Globulin 2.2 L Albumin/Globulin Ratio 1.8 Lipase Procalcitonin Urine Color Urine Appearance Urine pH Ur Specific Imogene Urine Protein Urine Glucose (UA) Urine Ketones Urine Blood Urine Nitrite Urine Bilirubin Urine Urobilinogen Ur Leukocyte Esterase Urine WBC (Auto) Urine RBC (Auto) U Hyaline Cast (Auto) U Epithel Cells (Auto) Urine Bacteria (Auto) Nasal Screen MRSA (PCR) Adenovirus (PCR) B. pertussis DNA (PCR) B.parapertussis DNA PCR C. pneumoniae DNA (PCR) Coronavirus OC43 (PCR) Coronavirus HKU1 (PCR) Coronavirus 229E (PCR) SARS-CoV-2 (PCR) Coronavirus NL63 (PCR) Enterobacterales (PCR) E. coli (PCR) Human Metapneumovir PCR Influenza Type A (PCR) Influenza Type B (PCR) M. pneumoniae (PCR) Parainfluenza 1 (PCR) Parainfluenza 2 (PCR) Parainfluenza 3 (PCR) Parainfluenza 4 (PCR) RSV (PCR) Entero/Rhino (PCR) mcr-1 Colistin Res Gene PCR blaIMP Car res Gene PCR KPC-Carbap Res Gene PCR blaNDM Car Res Gene PCR OXA-48 Carbapenem Resis Gene (PCR) blaVIM Car Res Gene PCR CTX-M Gene Resistance (PCR) Bld Cult ID Panel PCR Medications Administered Current Inpatient Medications Cyclosporine (Cyclosporine 100 Mg Cap) 100 mg PO BID [facility] Stop: 03/15/24 08:59 Last Admin: 02/15/24 08:06 Dose: 100 mg Enoxaparin Sodium (Enoxaparin Inj 30 Mg/0.3 Ml Syr) 30 mg SQ QAM [facility] Stop: 03/15/24 08:59 Last Admin: 02/15/24 08:07 Dose: 30 mg Fludrocortisone Acetate (Fludrocortisone Acetate 0.1 Mg Tab) 0.1 mg PO QAM [facility] Stop: 03/15/24 08:59 Last Admin: 02/15/24 08:06 Dose: 0.1 mg Norepinephrine Bitartrate (Levophed/D5w) 4 mg in 250 mls @ 0 mls/hr IV .Q0M [facility]; Protocol Stop: 03/15/24 02:29 Last Titration: 02/14/24 07:17 Dose: 0 mcg/kg/min, 0 mls/hr Acetaminophen (Ofirmev) 1,000 mg in 100 mls @ 400 mls/hr IV Q8H PRN PRN Reason: Pain or Fever Stop: 02/17/24 04:19 Meropenem 500 mg/ Syringe 10 mls @ 2 mls/min IV Q8H [facility]; Protocol Stop: 02/24/24 10:59 Last Admin: 02/15/24 02:25 Dose: 2 mls/min Hydrocortisone Sodium (Succinate 25 mg/ Syringe) 0.5 mls @ 4 mls/min IV Q6H [facility] Stop: 03/16/24 13:59 Mycophenolate Mofetil (Mycophenolate Mofetil 250 Mg Cap) 1,000 mg PO BID [facility] Stop: 03/15/24 08:59 Last Admin: 02/15/24 08:06 Dose: 1,000 mg Ondansetron HCl (Ondansetron Inj 2 Mg/Ml 2 Ml Vial) 4 mg IV Q6H PRN PRN Reason: NAUSEA/VOMITING Stop: 03/15/24 04:19 Pantoprazole Sodium (Pantoprazole 40 Mg Tab) 40 mg PO QAM [facility] Stop: 03/15/24 10:59 Last Admin: 02/15/24 08:06 Dose: 40 mg
[2024-02-15] MEDS: HYDROCORTISONE SOD 25 MG in SYRINGE 0 ML IV SCH (14:18)
[2024-02-15] MEDS: ADVANCED PROBIOTIC 625 MG CAPSULE PO SCH (17:16)
[2024-02-15] MEDS: ACETAMINOPHEN 500 MG TAB PO PRN (17:33)
--- NOTE | 2024-02-15 18:02 | Hospitalist Progress Note ---
Date of Service February 15, 2024 Assessment & Plan (1) Septic shock: (2) Complicated urinary tract infection: (3) History of kidney transplant: (4) Chronic anticoagulation: (5) Immunocompromised: (6) CKD (chronic kidney disease) stage 4, GFR 15-29 ml/min: (7) GERD (gastroesophageal reflux disease): (8) Obstructive sleep apnea: (9) Hyperlipidemia: (10) Hypertension: Plan Septic shock/complicated UTI/admit to ICU- Follow urine culture and sensitivity History of pansensitive Citrobacter koseri in urine and blood History of ESBL E. coli Admit on daptomycin IV and ertapenem IV Patient now is off levophed. Stress dose steroids, hydrocortisone 100 mg IV every 8 hours Hold all oral medications for now except cyclosporine and mycophenolate Patient is off pressors. Transfer out of the ICU tapering steroids. Renal transplant status/ acute kidney injury superimposed on CKD stage IV- Continue cyclosporine 100 mg p.o. twice daily, and mycophenolate 1000 mg p.o. twice daily. Holding oral prednisone, and placed on stress dose hydrocortisone IV Creatinine 4.22 which is worse, with base 2.91 tapering steroids. also awaiting for creatinine to improve. Consult nephrology Dr. Aguilera Hypomagnesemia- Magnesium 1.4 upon admission BPH with LUTS- For now hold tamsulosin and vibegron Admission and Anticipated Discharge Date Admission Date: February 13, 2024 Subjective Patient reports doing well. Review of Systems Review of Systems: All systems reviewed & are unremarkable except as noted in HPI & below Physical Exam Physical Exam: The patient upon arrival was awake, alert and oriented. HEENT--PERRL, EOMI, mucous membranes moist. Neck--supple. Heart--normal S1 and S2. No murmurs, rubs or gallops. Lungs--clear bilaterally, no respiratory distress, no accessory muscle use. Abdomen--normal bowel sounds and soft. Nontender. Nondistended. Obese Extremities--chronic venous stasis changes. Trace pitting edema. There are good distal pulses b/l. Dermatologic--normal skin turgor Neurologic--cranial nerves II through XII grossly intact. AAOx3 Results & Data Results & Data Vital Signs (Past 12 Hours) Vital Signs Temp Pulse Pulse Resp BP Pulse Ox O2 Del Method 02/15/24 11:33 36.6 C 77 18 143/77 H 97 Room Air 09/17/24 08:00 36.7 C 74 18 141/88 H 98 Room Air 02/15/24 08:00 65 02/15/24 08:00 Room Air 02/15/24 06:03 66 14 PG Care Time/CCT Total # of Minutes Spent Total Time Spent with Patient: Total time spent is greater than 50% in coordination of care (as documented) at patient's floor/unit and/or counseling patient: Coding Level of Care Code 47115 SUB INP/OBS CARE 2/35MIN Diagnoses Septic shock A41.9; R65.21 Complicated urinary tract infection N39.0 History of kidney transplant Z94.0 Chronic anticoagulation Z79.01 Immunocompromised D84.9 CKD (chronic kidney disease) stage 4, GFR 15-29 ml/min N18.4 Gastroesophageal reflux disease without esophagitis K21.9 Esophagitis presence: without esophagitis Obstructive sleep apnea G47.33 Hyperlipidemia E78.5 Essential hypertension I10 Hypertension type: essential hypertension (7) GERD (gastroesophageal reflux disease) Esophagitis presence: without esophagitis Qualified Code(s): K21.9 - Gastro- esophageal reflux disease without esophagitis (10) Hypertension Hypertension type: essential hypertension Qualified Code(s): I10 - Essential (primary) hypertension
[2024-02-15] MEDS: TAMSULOSIN HCL 0.4 MG CAP PO SCH (20:00)
[2024-02-15] MEDS: GABAPENTIN 600 MG TAB PO SCH (20:01)
[2024-02-15] MEDS ORDERED: DAPTOmycin 575 MG in SYRINGE 0 ML IV SCH (22:00)
[2024-02-16 07:51] LABS: Albumin Globulin Ratio 1.5 (0.9-2); Albumin Level 3.5 gm/dl (3.4-5.0); Bilirubin,Total 0.5 mg/dl (0.2-1.0); C Reactive Protein 18.22 mg/dl (0-0.5); Calcium 8.7 mg/dl (8.6-10.3); Creatinine Clr Calc Pharmacy 29.6 ml/min; Est GFR (African American) 19.6 ml/min; Globulin 2.3 gm/dl (2.5-4.0); Hematocrit (blood only) 29.3 % (42.0-52.0); Hemoglobin 9.2 g/dl (14.0-18.0); Magnesium 2.2 mg/dl (1.7-2.4); Mean Corpuscular Hemoglobin 30.1 pg (25.0-34.0); Mean Corpuscular Hgb Conc 31.4 g/dL (32.0-36.0); Mean Corpuscular Volume 95.8 fL (80.0-100.0); Mean Platelet Volume 11.7 fL (9.4-12.4); Platelet Count 158 K/uL (130-400); Potassium 3.9 mmol/L (3.5-5.1); RDW Coefficient of Variation 13.3 % (11.5-14.5); RDW Standard Deviation 46.6 fL (36.4-46.3); Red Blood Count 3.06 M/uL (4.70-6.10); Total Protein 5.8 gm/dl (6.0-8.3)
[2024-02-16 08:10] LABS: Basophils # (auto) 0.03 K/uL (0.00-0.20); Basophils % (auto) 0.1 %; Echinocytes 1+; Eosinophils # (auto) 0.03 K/uL (0.00-0.50); Eosinophils % (auto) 0.1 %; Immature Granulocytes # (auto) 0.74 K/uL (0.01-0.20); Immature Granulocytes % (auto) 3.3 %; Lymphocytes # (auto) 0.29 K/uL (1.20-3.40); Lymphocytes % (auto) 1.3 %; Monocytes # (auto) 0.84 K/uL (0.11-0.59); Monocytes % (auto) 3.7 %; Neutrophils # (auto) 20.67 K/uL (1.40-6.50); Neutrophils % (auto) 91.5 %
[2024-02-16] MEDS: DULoxetine HCL 60 MG CAP PO SCH (09:23)
[2024-02-16] MEDS: CHOLECALCIFEROL 25 MCG (1000 UNITS) TAB PO SCH (09:23)
[2024-02-16] MEDS: FINASTERIDE 5 MG TAB PO SCH (09:24)
[2024-02-16] MEDS: MULTIVITAMIN TAB PO SCH (09:25)
[2024-02-16] MEDS ORDERED: ceFAZolin 1000MG 1,000 MG/7.5 ML SYR IV SCH (09:30)
--- NOTE | 2024-02-16 09:36 | Nephrology Progress Note ---
Date of Service February 16, 2024 Assessment & Plan (1) LORENZO (acute kidney injury): Plan: * LORENZO due to septic shock in the setting of ARB and chronic CNI therapy * Now nonoliguric. Creatinine has improved form 4.22 to 3.62 * Patient remains clinically euvolemic. Electrolyte balance is acceptable. 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 Baseline Cr has risen to 3.0-3.5 * Outpatient immunosuppressive regimen: Neoral 100 mg po BID, MMF 1000 mg po BID and prednisone 5 mg daily (3) Septic shock: Plan: * Pressors have been weaned to off * Blood culture is + for E. Coli sensitive to Cefazolin * Antibiotic has been changed to Cefazolin Admission and Anticipated Discharge Date Admission Date: February 13, 2024 Subjective Mr. Prado was evaluated in his hospital room this morning. He was sitting up doing computer work. He voiced no new medical concerns Review of Systems Constitutional: no fever Eyes: no problem reported Ear, Nose, Mouth, Throat: no problem reported Respiratory: no cough and no dyspnea Cardiovascular: no chest pain Gastrointestinal: no abdominal pain, no nausea, no vomiting and no diarrhea/l oose stools Genitourinary: no dysuria or no hematuria Integumentary: no rash Physical Exam Constitutional: not in distress Eyes: PERRL, conjunctivae normal, anicteric sclerae ENMT: external ear and nose normal, oropharynx normal Neck: trachea midline, no thyromegaly Respiratory: normal respiratory effort, lungs clear to auscultation Cardiovascular: Rate/Rhythm: regular rate and regular rhythm Extremities: + edema (1+ pretibial pitting edema) Gastrointestinal (Abdomen): Inspection/Auscultation: abdomen normal to inspection Skin: no rashes, warm and dry Neurologic: Speech / Cognition: normal speech and normal cognition Results & Data Vital Signs (Past 12 Hours) Vital Signs Temp Pulse Pulse Resp BP Pulse Ox O2 Del Method 02/16/24 08:20 36.3 C L 62 18 159/82 H 100 Room Air 02/16/24 08:13 68 02/16/24 02:42 36.4 C L 61 16 155/81 H 99 Room Air 02/15/24 23:31 36.6 C 73 18 149/78 H 95 Room Air 02/15/24 22:51 75 Laboratory Results Laboratory Results WBC 22.60 K/ul (4.8-10.8) H 02/16/24 07:18 RBC 3.06 M/uL (4.70-6.10) L 02/16/24 07:18 Hgb 9.2 g/dl (14.0-18.0) L 02/16/24 07:18 Hct 29.3 % (42.0-52.0) L 02/16/24 07:18 MCV 95.8 fL (80.0-100.0) 02/16/24 07:18 MCH 30.1 pg (25.0-34.0) 02/16/24 07:18 MCHC 31.4 g/dL (32.0-36.0) L 02/16/24 07:18 RDW Std Deviation 46.6 fL (36.4-46.3) H 02/16/24 07:18 RDW Coeff of Theresa 13.3 % (11.5-14.5) 02/16/24 07:18 Plt Count 158 K/uL (130-400) 02/16/24 07:18 MPV 11.7 fL (9.4-12.4) 02/16/24 07:18 Immature Gran % (Auto) 3.3 % 02/16/24 07:18 Neut % (Auto) 91.5 % 02/16/24 07:18 Lymph % (Auto) 1.3 % 02/16/24 07:18 [place] % (Auto) 3.7 % 02/16/24 07:18 Eos % (Auto) 0.1 % 02/16/24 07:18 Baso % (Auto) 0.1 % 02/16/24 07:18 Neut # (Auto) 20.67 K/uL (1.40-6.50) H 02/16/24 07:18 Lymph # (Auto) 0.29 K/uL (1.20-3.40) L 02/16/24 07:18 [place] # (Auto) 0.84 K/uL (0.11-0.59) H 02/16/24 07:18 Eos # (Auto) 0.03 K/uL (0.00-0.50) 02/16/24 07:18 Baso # (Auto) 0.03 K/uL (0.00-0.20) 02/16/24 07:18 Immature Gran # (Auto) 0.74 K/uL (0.01-0.20) H 02/16/24 07:18 RBC Morphology Unremarkable 02/13/24 20:30 Echinocytes 1+ 02/16/24 07:18 PT 10.7 Seconds (9.0-12.0) 02/13/24 20:30 INR 1.0 (0.9-1.1) 02/13/24 20:30 Sodium 140 mmol/L (136-145) 02/16/24 07:18 Potassium 3.9 mmol/L (3.5-5.1) 02/16/24 07:18 Chloride 109 mmol/L (98-107) H 02/16/24 07:18 Carbon Dioxide 19 mmol/L (21-32) L 02/16/24 07:18 Anion Gap 12 (3-11) H 02/16/24 07:18 BUN 94 mg/dl (6-23) H 02/16/24 07:18 Creatinine 3.62 mg/dl (0.6-1.4) H D 02/16/24 07:18 Est Cr Clr Drug Dosing 29.6 ml/min 02/16/24 07:18 Est GFR ( Amer) 19.6 ml/min 02/16/24 07:18 Est GFR (Non-Af Amer) 17.0 ml/min 02/16/24 07:18 BUN/Creatinine Ratio 26.0 (10-20) H 02/16/24 07:18 Glucose 117 mg/dl (70-99(Fasting)) H 02/16/24 07:18 POC Glucose 122 mg/dl (70-99) H 02/14/24 12:13 Lactate 2.0 mmol/L (0.4-2.0) 02/13/24 20:30 Calcium 8.7 mg/dl (8.6-10.3) 02/16/24 07:18 Phosphorus 3.9 mg/dl (2.5-4.9) 02/15/24 03:41 Magnesium 2.2 mg/dl (1.7-2.4) 02/16/24 07:18 Total Bilirubin 0.5 mg/dl (0.2-1.0) 02/16/24 07:18 Direct Bilirubin 0.2 mg/dl (0-0.2) 02/13/24 20:30 AST 10 U/L (13-39) L 02/16/24 07:18 ALT 10 U/L (7-52) 02/16/24 07:18 Alkaline Phosphatase 67 U/L (34-104) 02/16/24 07:18 Troponin I High Sens 11.1 pg/ml (0-20) 02/13/24 20:30 C-Reactive Protein 18.22 mg/dl (0-0.5) H 02/16/24 07:18 Total Protein 5.8 gm/dl (6.0-8.3) L 02/16/24 07:18 Albumin 3.5 gm/dl (3.4-5.0) 02/16/24 07:18 Globulin 2.3 gm/dl (2.5-4.0) L 02/16/24 07:18 Albumin/Globulin Ratio 1.5 (0.9-2) 02/16/24 07:18 Lipase 56 U/L (11-82) 02/13/24 20:30 Procalcitonin 14.30 ng/ml (0-0.5) H 02/16/24 07:18 Urine Color Yellow 02/13/24 Unknown Urine Appearance Turbid (Clear) A 02/13/24 Unknown Urine pH 5.5 (4.5-7.5) 02/13/24 Unknown Ur Specific [place] 1.014 (1.000-1.030) 02/13/24 Unknown Urine Protein 3+ (Negative) H 02/13/24 Unknown Urine Glucose (UA) Negative (Negative) 02/13/24 Unknown Urine Ketones Negative (Negative) 02/13/24 Unknown Urine Blood 3+ (Negative) H 02/13/24 Unknown Urine Nitrite Negative (Negative) 02/13/24 Unknown Urine Bilirubin Negative (Negative) 02/13/24 Unknown Urine Urobilinogen Negative (Negative) 02/13/24 Unknown Ur Leukocyte Esterase 3+ (Negative) H 02/13/24 Unknown Urine WBC (Auto) >50 /hpf (0-5) H 02/13/24 Unknown Urine RBC (Auto) >20 /hpf (0-2) H 02/13/24 Unknown U Hyaline Cast (Auto) 6-10 /lpf (0-2) H 02/13/24 Unknown U Epithel Cells (Auto) 0-2 /hpf (0-2) 02/13/24 Unknown Urine Bacteria (Auto) 4+ (None Seen) H 02/13/24 Unknown Nasal Screen MRSA (PCR) Negative (Negative) 02/14/24 04:10 Adenovirus (PCR) Not Detected (NotDetected) 02/13/24 20:45 B. pertussis DNA (PCR) Not Detected (NotDetected) 02/13/24 20:45 B.parapertussis DNA PCR Not Detected (NotDetected) 02/13/24 20:45 C. pneumoniae DNA (PCR) Not Detected (NotDetected) 02/13/24 20:45 Coronavirus OC43 (PCR) Not Detected (NotDetected) 02/13/24 20:45 Coronavirus HKU1 (PCR) Not Detected (NotDetected) 02/13/24 20:45 Coronavirus 229E (PCR) Not Detected (NotDetected) 02/13/24 20:45 SARS-CoV-2 (PCR) Not Detected (NotDetected) 02/13/24 20:45 Coronavirus NL63 (PCR) Not Detected (NotDetected) 02/13/24 20:45 Enterobacterales (PCR) DETECTED (NotDetected) A 02/13/24 20:45 E. coli (PCR) DETECTED (NotDetected) A 02/13/24 20:45 Human Metapneumovir PCR Not Detected (NotDetected) 02/13/24 20:45 Influenza Type A (PCR) Not Detected (NotDetected) 02/13/24 20:45 Influenza Type B (PCR) Not Detected (NotDetected) 02/13/24 20:45 M. pneumoniae (PCR) Not Detected (NotDetected) 02/13/24 20:45 Parainfluenza 1 (PCR) Not Detected (NotDetected) 02/13/24 20:45 Parainfluenza 2 (PCR) Not Detected (NotDetected) 02/13/24 20:45 Parainfluenza 3 (PCR) Not Detected (NotDetected) 02/13/24 20:45 Parainfluenza 4 (PCR) Not Detected (NotDetected) 02/13/24 20:45 RSV (PCR) Not Detected (NotDetected) 02/13/24 20:45 Entero/Rhino (PCR) Not Detected (NotDetected) 02/13/24 20:45 mcr-1 Colistin Res Gene PCR Not Detected (NotDetected) 02/13/24 20:45 blaIMP Car res Gene PCR Not Detected (NotDetected) 02/13/24 20:45 KPC-Carbap Res Gene PCR Not Detected (NotDetected) 02/13/24 20:45 blaNDM Car Res Gene PCR Not Detected (NotDetected) 02/13/24 20:45 OXA-48 Carbapenem Resis Gene (PCR) Not Detected (NotDetected) 02/13/24 20:45 blaVIM Car Res Gene PCR Not Detected (NotDetected) 02/13/24 20:45 CTX-M Gene Resistance (PCR) Not Detected (NotDetected) 02/13/24 20:45 Bld Cult ID Panel PCR See PCR Comment (NotDetected) 02/13/24 20:45 Impressions Chest X-Ray 02/13/24 20:24 XR chest 1V portable HISTORY: 63 years-old Male Sepsis acute sepsis COMPARISON: Chest CT of same day bottles of 09/29/2023 TECHNIQUE: AP view of the chest FINDINGS: Cardiac silhouette is enlarged. Calcified mediastinal and hilar lymphadenopathy redemonstrated along with numerous solid bilateral pulmonary nodules, some which are calcified. No pneumothorax, pleural effusion or overt pulmonary edema. Bones appear grossly intact. Mild sigmoidal scoliosis of the spine. IMPRESSION: 1. Cardiomegaly without acute process of the chest. 2. Calcified lymph nodes redemonstrated along with innumerable pulmonary nodules, likely associated with the patient's history of prior granulomatous disease. ACT 112: Negative or not required by law. The above report was generated using voice recognition software. It may contain grammatical, syntax or spelling errors. Electronically signed by: Facundo Miller M.D. 02/14/2024 6:45 AM Abdomen/Pelvis CT 02/13/24 21:23 Exam(s): CT ABDOMEN + PELVIS Without Contrast EXAM: CT Abdomen and Pelvis Without Intravenous Contrast CLINICAL HISTORY: sepsis, h/o renal transplant. TECHNIQUE: Axial computed tomography images of the abdomen and pelvis without intravenous contrast. CTDI is 24.07 mGy and DLP is 1631.83 mGy-cm. Automated exposure control was utilized for the study. A dose lowering technique was utilized adhering to the principles of ALARA. COMPARISON: Noncontrast CT abdomen and pelvis 08/23/2022 FINDINGS: Lung bases: Diffuse pulmonary nodules noted throughout the lung bases, similar to the previous examination. No consolidation. ABDOMEN: Liver: Similar contours to the liver. No definite focal abnormality. Gallbladder and bile ducts: Unremarkable. No calcified stones. No ductal dilation. Pancreas: Unremarkable. No ductal dilation. Spleen: Unremarkable. No splenomegaly. Adrenals: Unremarkable. No mass. Kidneys and ureters: The beaver kidneys remain markedly atrophic in appearance with irregular hyperdense perinephric fat stranding. No alteration in morphology. No new hydronephrosis or obstructive ureteral stones in the beaver kidneys. A right transplant kidney is identified with similar mild perinephric fat stranding. No hydronephrosis or obstructive ureteral stones. Stomach and bowel: Mild retained oral contents noted in the stomach. No gastric mucosal thickening. No evidence for bowel obstruction. Evaluation of the bowel mucosa is slightly limited without contrast; however, no definite focal asymmetry suggested. Mild to moderate stool burden. No diverticulitis. PELVIS: Appendix: A normal caliber appendix is noted along the posterior aspect of the cecum. Bladder: Mucosal prominence of the bladder is nonspecific with near- complete decompression. No stones. Reproductive: The prostate gland remains enlarged with somewhat less prominent periprostatic fat stranding. Subperitoneal space: The previously noted presacral edema has resolved. ABDOMEN and PELVIS: Intraperitoneal space: Unremarkable. No free air. No significant fluid collection. Bones/joints: No acute fracture. No dislocation. Soft tissues: Fat-containing umbilical hernia is larger in size when compared to the previous examination. No fat stranding or fluid in the herniated fat. Vasculature: Unremarkable. No abdominal aortic aneurysm. Lymph nodes: Unremarkable. No enlarged lymph nodes. IMPRESSION: No significant abnormality definitively identified within the unenhanced abdomen or pelvis to suggest the cause of the patient's reported sepsis. Incidental chronic findings, as noted above, similar to the previous examination. Periprostatic fat stranding is minimally improved from the previous examination. The previously noted presacral edema has resolved. Electronically signed by: Kai Williamson MD 02/13/24 23:[address] 02/13/24 21:23 Exam(s): CT CHEST Without Contrast EXAM: CT Chest Without Intravenous Contrast CLINICAL HISTORY: sepsis, h/o renal transplant. TECHNIQUE: Axial computed tomography images of the chest without intravenous contrast. CTDI is 24.07 mGy and DLP is 1631.83 mGy-cm. Automated exposure control was utilized for the study. A dose lowering technique was utilized adhering to the principles of ALARA. COMPARISON: CT chest without contrast dated 09/29/2023. FINDINGS: Lungs: Diffuse abnormal pulmonary nodules noted throughout the lungs, similar in morphology and appearance to the previous examination. Again, there is heterogeneous mixed calcified and noncalcified nodules noted internally. No appreciable interval increase in size of the nodules noted. No consolidation. Pleural space: Unremarkable. No pneumothorax. No significant effusion. Heart: The cardiac chambers are upper normal limits with at least moderate coronary artery calcification. No significant pericardial effusion. Bones/joints: No acute osseous abnormality. Stable chronic anterior wedging at several thoracic vertebral bodies resulting in accentuated kyphosis, stable. No dislocation. Soft tissues: Unremarkable. Vasculature: The thoracic aorta demonstrates some atherosclerotic calcification without dilation. Lymph nodes: Nonspecific paratracheal lymph nodes and subcarinal lymph nodes. No significant lymphadenopathy. IMPRESSION: No significant abnormality identified within the chest/thorax to suggest the patient's reported sepsis. Diffuse pulmonary nodules and calcified lymph nodes, stable in appearance from the previous examination. Electronically signed by: Kai Williamson MD 02/13/24 23:45 PM Microbiology 02/13/24 20:45 Blood Aerobic Blood Culture - Final Escherichia coli 02/13/24 20:45 Blood Anaerobic Blood Culture - Final Escherichia coli 02/13/24 Unknown Urine,Clean Catch Urine Culture - Final More than three types of organisms present, all high counts. Repeat collection recommended. No further identifications or sensitivities to follow. PG Care Time/CCT Total # of Minutes Spent Total Time Spent with Patient: Total time spent is greater than 50% in coordination of care (as documented) at patient's floor/unit and/or counseling patient: Coding Level of Care Code 72736 SUB INP/OBS CARE 3/50MIN Diagnoses LORENZO (acute kidney injury) N17.9 Kidney transplant status, living unrelated donor Z94.0 Septic shock A41.9; R65.21
--- NOTE | 2024-02-16 09:45 | Infectious Disease Progress Nt ---
Date of Service February 16, 2024 Assessment & Plan (1) Kidney transplant status, living unrelated donor: (2) Septic shock: Plan #Ecoli sepsis likely secondary to UTI #LURT 2019 IS: Neoral, MMF, prednisone #CKD (new cr baseline about 3) #Leukocytosis MICRO 02/12 BCx GNR, BCID +Ecoli, xiao Sensitive 02/12 Ucx 3 different organisms 02/14 Bcx in lab 63 yo M with h/o LURT in 2019 with worsening renal function (recent baselin around 3) chronic GN, HLD, FARNAZ, rectal rectal sheath hematoma, chronic UTIs, admitted with fevers and found to have be in septic shock. Patient underwent LURT in 2019 at [facility] in [place]. Post transplant Cr stabilized at 1.2. His immunosuppressive regimen remains Tacrolimus, MMF, Prednisone, found to have worsening Cr, TP kidney biopsy showed FSGS. Patient had DVT requiring anticoagulation therapy which was c/b RP hematomas (recurrent). Transplant kidney biopsy revealed FSGS. Patient continued to have slow decline in renal function, with IS changed to Neoral 100 mg po BID, MMF 1000 mg po BID and prednisone 5 mg daily. Patient presented on 02/13/2024 for for fever smyalgias and weakness. He was found to be hypotensive and TF to ICU for pressor support. Initially given Ceftriaxone then Ertapenem/Daptomycin. UA turbid with pyuria, UCX P, 02/12 BCx GNR, BCID +Ecoli. Patient currently on Meropenem. WBC initially 12 now 27, Cr 3.59 now increasing, for which Nephrology consulted and following. CT CAP no obvious source. On my interview, he stated his chills started a few days prior to presentation, No CP/SOB, no prior diarrhea, today has loose stool, Initially pain had a discomfort with urination prior to admission, patient states that has resolved RECOMMEND: -D/C Meropenem -Start Cefazolin 2G IV BID CrCl 29.6 -Repeated Bcx to document clearance, No Growth at 24 hours -WBC up likely dt steroids, improving -Consider gentle IV Fluid hydration - Cr 4.2-->3.6 today, follow CrCl and adjust abx accordingly Ayla Tracy MD Infectious Diseases Admission and Anticipated Discharge Date Admission Date: February 13, 2024 Subjective This patient recommendation is based on a telemedicine consult request which was completed asynchronously through chart review and information provided by the primary physician. The patient was not seen or examined today. The evaluation is consultative in nature and all patient care and treatment decisions can either be accepted or rejected by the patient's primary hospital-based treating physician using their own independent medical judgment for their patient. Time Spent Reviewing Chart: 31+ minutes 24 hours: Afebrile, HD stable WBC improving to 22 Results & Data Vital Signs (Past 12 Hours) Vital Signs Temp Pulse Pulse Resp BP Pulse Ox O2 Del Method 02/16/24 08:20 36.3 C L 62 18 159/82 H 100 Room Air 02/16/24 08:13 68 02/16/24 02:42 36.4 C L 61 16 155/81 H 99 Room Air 02/15/24 23:31 36.6 C 73 18 149/78 H 95 Room Air 02/15/24 22:51 75 Laboratory Results Short CBC 02/16/24 Range/Units 07:18 WBC 22.60 H (4.8-10.8) K/ul Hgb 9.2 L (14.0-18.0) g/dl Hct 29.3 L (42.0-52.0) % Plt Count 158 (130-400) K/uL BMP 02/16/24 07:18 Sodium 140 Potassium 3.9 Chloride 109 H Carbon Dioxide 19 L BUN 94 H Creatinine 3.62 H D Glucose 117 H Calcium 8.7 Liver Function 02/16/24 Range/Units 07:18 Total Bilirubin 0.5 (0.2-1.0) mg/dl AST 10 L (13-39) U/L ALT 10 (7-52) U/L Alkaline Phosphatase 67 (34-104) U/L Albumin 3.5 (3.4-5.0) gm/dl Microbiology 02/13/24 20:45 Blood Aerobic Blood Culture - Final Escherichia coli 02/13/24 20:45 Blood Anaerobic Blood Culture - Final Escherichia coli 02/13/24 Unknown Urine,Clean Catch Urine Culture - Final More than three types of organisms present, all high counts. Repeat collection recommended. No further identifications or sensitivities to follow.
[2024-02-16] MEDS: ceFAZolin 2000MG 2,000 MG/15 ML SYR IV SCH (10:27)
[2024-02-16] MEDS: HYDROCORTISONE SOD 25 MG in SYRINGE 0 ML IV SCH (22:01)
--- NOTE | 2024-02-16 22:14 | Hospitalist Progress Note ---
Date of Service February 16, 2024 Assessment & Plan (1) Septic shock: (2) Complicated urinary tract infection: (3) History of kidney transplant: (4) Chronic anticoagulation: (5) Immunocompromised: (6) CKD (chronic kidney disease) stage 4, GFR 15-29 ml/min: (7) GERD (gastroesophageal reflux disease): (8) Obstructive sleep apnea: (9) Hyperlipidemia: (10) Hypertension: Plan Septic shock/complicated UTI/admit to ICU- Follow urine culture and sensitivity History of pansensitive Citrobacter koseri in urine and blood History of ESBL E. coli Admit on daptomycin IV and ertapenem IV Patient now is off levophed. Stress dose steroids, hydrocortisone 100 mg IV every 8 hours Hold all oral medications for now except cyclosporine and mycophenolate Patient is off pressors. Transfer out of the ICU tapering steroids. transitioned to cefazolin. Renal transplant status/ acute kidney injury superimposed on CKD stage IV- Continue cyclosporine 100 mg p.o. twice daily, and mycophenolate 1000 mg p.o. twice daily. Holding oral prednisone, and placed on stress dose hydrocortisone IV Creatinine 4.22 which is worse, with base 2.91 tapering steroids. also awaiting for creatinine to improve. Consult nephrology Dr. Aguilera Hypomagnesemia- Magnesium 1.4 upon admission BPH with LUTS- For now hold tamsulosin and vibegron Admission and Anticipated Discharge Date Admission Date: February 13, 2024 Subjective 63 yo male reports no new symptoms Review of Systems Review of Systems: All systems reviewed & are unremarkable except as noted in HPI & below Physical Exam Physical Exam: Patient is lying in bed. Patient reports no acute distress. Not using accessory muscles to breath. Results & Data Results & Data Vital Signs (Past 12 Hours) Vital Signs Temp Pulse Pulse Resp BP Pulse Ox O2 Del Method 02/16/24 19:45 36.4 C L 82 18 155/82 H 100 Room Air 02/16/24 16:14 69 02/16/24 14:33 36.6 C 70 14 144/83 H 98 Room Air PG Care Time/CCT Total # of Minutes Spent Total Time Spent with Patient: Total time spent is greater than 50% in coordination of care (as documented) at patient's floor/unit and/or counseling patient: Coding Level of Care Code 44185 SUB INP/OBS CARE 2/35MIN Diagnoses Septic shock A41.9; R65.21 Complicated urinary tract infection N39.0 History of kidney transplant Z94.0 Chronic anticoagulation Z79.01 Immunocompromised D84.9 CKD (chronic kidney disease) stage 4, GFR 15-29 ml/min N18.4 Gastroesophageal reflux disease without esophagitis K21.9 Esophagitis presence: without esophagitis Obstructive sleep apnea G47.33 Hyperlipidemia E78.5 Essential hypertension I10 Hypertension type: essential hypertension (7) GERD (gastroesophageal reflux disease) Esophagitis presence: without esophagitis Qualified Code(s): K21.9 - Gastro- esophageal reflux disease without esophagitis (10) Hypertension Hypertension type: essential hypertension Qualified Code(s): I10 - Essential (primary) hypertension
[2024-02-17 06:17] LABS: Hematocrit (blood only) 30.6 % (42.0-52.0); Hemoglobin 9.6 g/dl (14.0-18.0); Mean Corpuscular Hgb Conc 31.4 g/dL (32.0-36.0); Mean Corpuscular Volume 95.6 fL (80.0-100.0); Mean Platelet Volume 11.3 fL (9.4-12.4); Platelet Count 179 K/uL (130-400); RDW Coefficient of Variation 13.3 % (11.5-14.5); RDW Standard Deviation 46.5 fL (36.4-46.3); White Blood Count 14.28 K/ul (4.8-10.8)
[2024-02-17 06:40] LABS: BUN Creatinine Ratio 26.9 (10-20); C Reactive Protein 11.4 mg/dl (0-0.5); Calcium 9.1 mg/dl (8.6-10.3); Creatinine Clr Calc Pharmacy 31.6 ml/min; Est GFR (African American) 21.3 ml/min; Est GFR (Non-African American) 18.4 ml/min; Potassium 4.2 mmol/L (3.5-5.1)
[2024-02-17 07:41] VITALS: RESP 18; TEMP 97.5
--- NOTE | 2024-02-17 09:01 | Nephrology Progress Note ---
Date of Service February 17, 2024 Assessment & Plan (1) LORENZO (acute kidney injury): Plan: * LORENZO due to septic shock in the setting of ARB and chronic CNI therapy * Now nonoliguric. Creatinine has improved form 4.22 to 3.38 * Patient remains clinically euvolemic. Electrolyte balance is acceptable. * Continue current immunosuppressive regimen * Continue to hold losartan * Stop Florinef for sustained SBP > 130 mm Hg * If discharge planned, please have patient follow up w/ Dr. Aguilera in 7-14 days * No further nephrology intervention indicated at this time. Will sign off. 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 Baseline Cr has risen to 3.0-3.5 * Outpatient immunosuppressive regimen: Neoral 100 mg po BID, MMF 1000 mg po BID and prednisone 5 mg daily (3) Septic shock: Plan: * Blood culture is + for E. Coli * Patient remains on Cefazolin therapy Admission and Anticipated Discharge Date Admission Date: February 13, 2024 Subjective Mr. Prado was evaluated in his hospital room this morning. He was sitting up doing computer work. He voiced no new medical concerns Review of Systems Constitutional: no fever Eyes: no problem reported Ear, Nose, Mouth, Throat: no problem reported Respiratory: no cough and no dyspnea Cardiovascular: no chest pain Gastrointestinal: no abdominal pain, no nausea, no vomiting and no diarrhea/loose stools Genitourinary: no dysuria or no hematuria Integumentary: no rash Physical Exam Constitutional: not in distress Eyes: PERRL, conjunctivae normal, anicteric sclerae ENMT: external ear and nose normal, oropharynx normal Neck: trachea midline, no thyromegaly Respiratory: normal respiratory effort, lungs clear to auscultation Cardiovascular: Rate/Rhythm: regular rate and regular rhythm Extremities: + edema (trace pretibial pitting edema) Gastrointestinal (Abdomen): Inspection/Auscultation: abdomen normal to inspection Skin: no rashes, warm and dry Neurologic: Speech / Cognition: normal speech and normal cognition Results & Data Vital Signs (Past 12 Hours) Vital Signs Temp Pulse Pulse Resp BP Pulse Ox O2 Del Method 02/17/24 07:40 36.4 C L 62 18 136/84 97 Room Air 02/17/24 02:38 36.8 C 61 16 154/89 H 96 Room Air 02/17/24 00:00 69 02/16/24 23:28 36.5 C 60 18 156/85 H 97 Room Air Laboratory Results Laboratory Results - last 24 hr 02/16/24 02/17/24 07:18 05:35 WBC 14.28 H RBC 3.20 L Hgb 9.6 L Hct 30.6 L MCV 95.6 MCH 30.0 MCHC 31.4 L RDW Std Deviation 46.5 H RDW Coeff of Theresa 13.3 Plt Count 179 MPV 11.3 Sodium 140 Potassium 4.2 Chloride 108 H Carbon Dioxide 19 L Anion Gap 13 H BUN 91 H Creatinine 3.38 H Est Cr Clr Drug Dosing 31.6 Est GFR ( Amer) 21.3 Est GFR (Non-Af Amer) 18.4 BUN/Creatinine Ratio 26.9 H Glucose 109 H Calcium 9.1 Iron 70 TIBC 203 L Unsaturated IBC 133 L Transferrin % Sat 34 C-Reactive Protein 11.40 H Procalcitonin 14.30 H PG Care Time/CCT Total # of Minutes Spent Total Time Spent with Patient: Total time spent is greater than 50% in coordination of care (as documented) at patient's floor/unit and/or counseling patient: Coding Level of Care Code 03758 SUB INP/OBS CARE 3/50MIN Diagnoses LORENZO (acute kidney injury) N17.9 Kidney transplant status, living unrelated donor Z94.0 Septic shock A41.9; R65.21
[2024-02-17] MEDS: predniSONE 5 MG TAB PO SCH (09:10)
[2024-02-17 12:21] VITALS: BP 158/81; O2SAT 99
[2024-02-17 13:34] VITALS: PULSE 61
--- NOTE | 2024-02-17 13:37 | Infectious Disease Progress Nt ---
Date of Service February 17, 2024 Assessment & Plan (1) Kidney transplant status, living unrelated donor: (2) Septic shock: Plan #Ecoli sepsis likely secondary to UTI #LURT 2019 IS: Neoral, MMF, prednisone #CKD (new cr baseline about 3) #Leukocytosis MICRO 02/12 BCx GNR, BCID +Ecoli, xiao Sensitive 02/12 Ucx 3 different organisms 02/14 Bcx in lab 63 yo M with h/o LURT in 2019 with worsening renal function (recent baselin around 3) chronic GN, HLD, FARNAZ, rectal rectal sheath hematoma, chronic UTIs, admitted with fevers and found to have be in septic shock. Patient underwent LURT in [address] [facility] in [place]. Post transplant Cr stabilized at 1.2. His immunosuppressive regimen remains Tacrolimus, MMF, Prednisone, found to have worsening Cr, TP kidney biopsy showed FSGS. Patient had DVT requiring anticoagulation therapy which was c/b RP hematomas (recurrent). Transplant kidney biopsy revealed FSGS. Patient continued to have slow decline in renal function, with IS changed to Neoral 100 mg po BID, MMF 1000 mg po BID and prednisone 5 mg daily. Patient presented on 02/13/2024 for for fever smyalgias and weakness. He was found to be hypotensive and TF to ICU for pressor support. Initially given Ceftriaxone then Ertapenem/Daptomycin. UA turbid with pyuria, UCX P, 02/12 BCx GNR, BCID +Ecoli. Patient currently on Meropenem. WBC initially 12 now 27, Cr 3.59 now increasing, for which Nephrology consulted and following. CT CAP no obvious source. On my interview, he stated his chills started a few days prior to presentation, No CP/SOB, no prior diarrhea, today has loose stool, Initially pain had a discomfort with urination prior to admission, patient states that has resolved RECOMMEND: -C/W Cefazolin 2G IV but increase to TID now CrCL >30 -Repeated Bcx to document clearance, No Growth at 48 hours -WBC up likely dt steroids, improving -Consider gentle IV Fluid hydration - Cr 4.2-->3.6-->3.3 today, follow CrCl and adjust abx accordingly -It appears he has cleared his bacteremia, CrCL improved, would continue with Cefazolin while inpatient and at discharge can change to po AMOXICILLIN 1 GRAM PO TID through 02/27/24 ID will sign off please call with any questions Ayla Tracy MD Infectious Diseases Admission and Anticipated Discharge Date Admission Date: February 13, 2024 Subjective This patient recommendation is based on a telemedicine consult request which was completed asynchronously through chart review and information provided by the primary physician. The patient was not seen or examined today. The evaluation is consultative in nature and all patient care and treatment decisions can either be accepted or rejected by the patient's primary hospital-based treating physician using their own independent medical judgment for their patient. Time Spent Reviewing Chart: 31+ minutes Results & Data Vital Signs (Past 12 Hours) Vital Signs Temp Pulse Pulse Resp BP Pulse Ox O2 Del Method 02/17/24 12:20 36.4 C L 61 18 158/81 H 99 Room Air 02/17/24 08:00 80 02/17/24 08:00 Room Air 02/17/24 07:40 36.4 C L 62 18 136/84 97 Room Air 02/17/24 02:38 36.8 C 61 16 154/89 H 96 Room Air Laboratory Results Short CBC 02/17/24 Range/Units 05:35 WBC 14.28 H (4.8-10.8) K/ul Hgb 9.6 L (14.0-18.0) g/dl Hct 30.6 L (42.0-52.0) % Plt Count 179 (130-400) K/uL BMP 02/17/24 05:35 Sodium 140 Potassium 4.2 Chloride 108 H Carbon Dioxide 19 L BUN 91 H Creatinine 3.38 H Glucose 109 H Calcium 9.1 Microbiology 02/15/24 17:54 Blood Aerobic Blood Culture - Preliminary No growth in Aerobic bottle after 24 hours. 02/15/24 17:54 Blood Anaerobic Blood Culture - Preliminary No growth in Anaerobic bottle after 24 hours. 02/13/24 20:45 Blood Aerobic Blood Culture - Final Escherichia coli 02/13/24 20:45 Blood Anaerobic Blood Culture - Final Escherichia coli 02/13/24 Unknown Urine,Clean Catch Urine Culture - Final More than three types of organisms present, all high counts. Repeat collection recommended. No further identifications or sensitivities to follow. Medications Administered Current Inpatient Medications Acetaminophen (Acetaminophen 500 Mg Tab) 1,000 mg PO Q8H PRN PRN Reason: Pain Stop: 03/16/24 17:19 Last Admin: 02/15/24 17:33 Dose: 1,000 mg Cyclosporine (Cyclosporine 100 Mg Cap) 100 mg PO BID RANDELL Stop: 03/15/24 08:59 Last Admin: 02/17/24 09:09 Dose: 100 mg Duloxetine HCl (Duloxetine Hcl 60 Mg Cap) 60 mg PO QAM RANDELL Stop: 03/17/24 08:59 Last Admin: 02/17/24 09:09 Dose: 60 mg Enoxaparin Sodium (Enoxaparin Inj 30 Mg/0.3 Ml Syr) 30 mg SQ QAM RANDELL Stop: 03/15/24 08:59 Last Admin: 02/17/24 09:09 Dose: 30 mg Finasteride (Finasteride 5 Mg Tab) 5 mg PO QAM RANDELL Stop: 03/17/24 08:59 Last Admin: 02/17/24 09:09 Dose: 5 mg Fludrocortisone Acetate (Fludrocortisone Acetate 0.1 Mg Tab) 0.1 mg PO QAM RANDELL Stop: 03/15/24 08:59 Last Admin: 02/17/24 09:09 Dose: 0.1 mg Gabapentin (Gabapentin 600 Mg Tab) 600 mg PO TID RANDELL Stop: 03/16/24 20:59 Last Admin: 02/17/24 09:10 Dose: 600 mg Cefazolin Sodium (Ancef 2000mg) 2,000 mg in 15 mls @ 3.75 mls/min IV Q12H RANDELL Stop: 03/01/24 09:59 Last Admin: 02/17/24 10:12 Dose: 3.75 mls/min Lactobacillus Acidophilus (Advanced Probiotic 625 Mg Capsule) 1,250 mg PO DAILY RANDELL Stop: 03/16/24 15:59 Last Admin: 02/17/24 09:10 Dose: 1,250 mg Multivitamins (Multivitamin Tab) 1 tab PO QAM RANDELL Stop: 03/17/24 08:59 Last Admin: 02/17/24 09:10 Dose: 1 tab Mycophenolate Mofetil (Mycophenolate Mofetil 250 Mg Cap) 1,000 mg PO BID RANDELL Stop: 03/15/24 08:59 Last Admin: 02/17/24 09:10 Dose: 1,000 mg Ondansetron HCl (Ondansetron Inj 2 Mg/Ml 2 Ml Vial) 4 mg IV Q6H PRN PRN Reason: NAUSEA/VOMITING Stop: 03/15/24 04:19 Pantoprazole Sodium (Pantoprazole 40 Mg Tab) 40 mg PO QAM [facility] Stop: 03/15/24 10:59 Last Admin: 02/17/24 09:11 Dose: 40 mg Prednisone (Prednisone 5 Mg Tab) 5 mg PO DAILY RANDELL Stop: 03/18/24 08:59 Last Admin: 02/17/24 09:10 Dose: 5 mg Tamsulosin HCl (Tamsulosin Hcl 0.4 Mg Cap) 0.4 mg PO HS [facility] Stop: 03/16/24 20:59 Last Admin: 02/16/24 22:01 Dose: 0.4 mg Vitamin D (Cholecalciferol 25 Mcg (1000 Units) Tab) 25 mcg PO QAM [facility] Stop: 03/17/24 08:59 Last Admin: 02/17/24 09:09 Dose: 25 mcg
[2024-02-17] MEDS ORDERED: ceFAZolin 2000MG 2,000 MG/15 ML SYR IV SCH (18:00)
== END 2024-02-17 14:53 | disposition home or self-care (01) | DRG 871 ==
LOC: ED 19:49 → SUATTDRO 22:47 → EDINP 22:47 → 1E 02-14 03:44 → 4W 02-15 14:46
DX: N39.0 Urinary tract infection, site not specified; Z79.899 Other long term (current) drug therapy; T86.9 Complication of unspecified transplanted organ and tissue; Z68.41 Body mass index [BMI] 40.0-44.9, adult; G62.9 Polyneuropathy, unspecified; E66.9 Obesity, unspecified; E78.5 Hyperlipidemia, unspecified; Z87.440 Personal history of urinary (tract) infections; K21.9 Gastro-esophageal reflux disease without esophagitis; N17.0 Acute kidney failure with tubular necrosis; D84.821 Immunodeficiency due to drugs; M10.9 Gout, unspecified; Z79.52 Long term (current) use of systemic steroids; Z88.5 Allergy status to narcotic agent; Z79.01 Long term (current) use of anticoagulants; R65.21 Severe sepsis with septic shock; F32.A Depression, unspecified; Z88.8 Allergy status to other drugs, medicaments and biological substances; I12.9 Hypertensive chronic kidney disease with stage 1 through stage 4 chronic kidney disease, or unspecified chronic kidney disease; Z86.718 Personal history of other venous thrombosis and embolism; N18.4 Chronic kidney disease, stage 4 (severe); G47.33 Obstructive sleep apnea (adult) (pediatric); R41.0 Disorientation, unspecified; R39.9 Unspecified symptoms and signs involving the genitourinary system; Y83.0 Surgical operation with transplant of whole organ as the cause of abnormal reaction of the patient, or of later complication, without mention of misadventure at the time of the procedure; N40.1 Benign prostatic hyperplasia with lower urinary tract symptoms; E83.42 Hypomagnesemia; A41.51 Sepsis due to Escherichia coli [E. coli]

== ENCOUNTER 2024-03-06 10:07 | Inpatient (IN) ==
--- NOTE | 2024-03-06 10:48 | XRay Report ---
XR chest 1V portable CLINICAL HISTORY: SOB TECHNIQUE: Single frontal radiograph of the chest was obtained. Comparison: Comparison is made to chest radiograph 02/13/[address] chest 02/13/2024 FINDINGS: No lines and tubes are seen. The cardiomediastinal silhouette is stable. Prominence and cephalization of the vasculature is seen. Pulmonary nodules are not well seen on this exam, better appreciated on prior CT. No evidence of pleural effusion or pneumothorax. IMPRESSION: Cardiomegaly and mild pulmonary edema. ACT 112: Negative or not required by law. Electronically signed by: Mega Pan M.D. 03/06/2024 10:47 AM
[2024-03-06 10:55] LABS: Basophils # (auto) 0.05 K/uL (0.00-0.20); Basophils % (auto) 0.4 %; Eosinophils # (auto) 0.15 K/uL (0.00-0.50); Eosinophils % (auto) 1.1 %; Hematocrit (blood only) 38.1 % (42.0-52.0); Hemoglobin 12.3 g/dl (14.0-18.0); Immature Granulocytes # (auto) 0.08 K/uL (0.01-0.20); Immature Granulocytes % (auto) 0.6 %; Lymphocytes # (auto) 0.38 K/uL (1.20-3.40); Lymphocytes % (auto) 2.9 %; Mean Corpuscular Hemoglobin 30.8 pg (25.0-34.0); Mean Corpuscular Hgb Conc 32.3 g/dL (32.0-36.0); Mean Corpuscular Volume 95.5 fL (80.0-100.0); Mean Platelet Volume 10.4 fL (9.4-12.4); Monocytes # (auto) 1.33 K/uL (0.11-0.59); Monocytes % (auto) 10.2 %; Neutrophils # (auto) 11.06 K/uL (1.40-6.50); Neutrophils % (auto) 84.8 %; Platelet Count 231 K/uL (130-400); RDW Coefficient of Variation 13.8 % (11.5-14.5); RDW Standard Deviation 44.5 fL (36.4-46.3); Red Blood Count 3.99 M/uL (4.70-6.10); White Blood Count 13.05 K/ul (4.8-10.8)
--- NOTE | 2024-03-06 11:03 | Emergency Department Note ---
Impression & Plan Sepsis, History of kidney transplant, CKD (chronic kidney disease) ED Provider Note NAME: NAN MONTE AGE: 63 SEX: M : 1960 ARRIVES VIA: Walk-In INFORMANT: Patient, ED PROVIDER(S): Vincent Samaniego MD CHIEF COMPLAINT: Shortness of breath, concern for infection MEDICAL DECISION MAKING: Patient presents due to concern for shortness of breath and possible infection. IV was established and blood work was obtained. Patient with a white count of 13,000. Patient was ordered blood cultures and a lactic. The patient was ordered antibiotics based on prior sensitivities. I did speak with the pharmacist who stated given the prior issues with CMP could cause resistance and advocated for cefepime as opposed to Zosyn at this time. Upon reassessment the patient was feeling improved. Discussion w/ other healthcare providers: Dr. Dominguez inpatient medicine service Prior /Outside records reviewed: None Differential diagnosis: Dehydration, UTI, pneumonia, metabolic derangment, electrolyte abnormalities, hypovolemia, anemia, cellulitis among others were considered. Diagnostics, as interpreted by me: ECG: Sinus tachycardia, rate 101, wide QRS, right bundle branch block pattern, left axis deviation, T wave version in V2. No obvious STEMI. Cardiac monitoring: An order was placed for continuous cardiac monitoring. The monitor shows a rate of 92 with sinus rhythm. Patient was placed on pulse oximetry Medical decision rules: None Imaging studies: I informally interpreted the patient's chest x-ray does not show obvious pneumonia with formal report to follow. HPI: Patient presents due to concern for shortness of breath. Patient reports that this occurred about 2 hours prior to arrival. The patient was recently discharged for an issue was on antibiotics as well as having shingles on the scalp. The patient states that he still has some very sensitive scalp but denies any falls or trauma. Patient denies any numbness tingling or focal weakness. Patient reports that he does have a propensity for developing UTIs and then developed shortness of breath. The patient states that this is how he typically will present. The patient does feel restless. He did feel as though he was feverish and chilled. Patient denies any cough. He does take Lovenox for prior history of blood clots. Patient reports that he is a prior dialysis player but has had acute kidney transplant. The patient is followed at [facility] and does make urine. Patient denies any current urinary symptoms but states that this again is how he typically presents with sepsis. Patient does follow with Dr. Sanderson with nephrology does have a left upper extremity fistula. He is on mycophenolate and is immunocompromise. He also follows with Dr. Lang's PCP. PAST MEDICAL HISTORY: See Below PAST SURGICAL HISTORY: See Below SOCIAL HISTORY: See Below HOME MEDICATIONS: See Below ALLERGIES: See Below VITALS: See Below PHYSICAL EXAMINATION: GENERAL: Ill in appearance but nontoxic. Wearing glasses. EYE EXAM: Normal conjunctiva. PERRL, no anisocoria and EOM's grossly intact w/o pain. Head: No obvious lesions to the scalp. OROPHARYNX: Moist mucus membranes, grossly normal dentition. NECK: Trachea midline, no stridor. LUNGS: Clear to auscultation. Normal chest wall mechanics. HEART: N tachycardic and regular SR, no MRG. ABDOMEN: Abdomen soft, non-tender, no masses, no rebound or guarding. BACK: No CVA TTP. SKIN: No rashes and no bruising. UPPER EXTREMITIES: Upper extremities are grossly normal. LOWER EXTREMITIES: Grossly normal, no edema. NEURO EXAM: A&O x3, cranial nerves II-XII grossly intact, normal speech, moves all 4 extremities. Past Med/Surg History Problem List (Updated 03/06/24 @ 18:43 by Vincent Samaniego MD) CKD (chronic kidney disease) (Acute) History of kidney transplant (Acute) Sepsis (Acute) Sepsis Kidney transplant status, living unrelated donor Complicated urinary tract infection (Acute) History of kidney transplant (Acute) Sepsis (Acute) Chronic anticoagulation currently on lovenox 30mg daily Knee pain Edema Urinary urgency Bacteremia Sepsis (Acute) UTI (urinary tract infection), bacterial Statin intolerance Restrictive lung disease Metabolic acidosis Erectile dysfunction Immunocompromised (Acute) Elevated PSA CKD (chronic kidney disease) stage 4, GFR 15-29 ml/min (Acute) Retroperitoneal hematoma AV fistula LEFT WRIST> NO DIALYSIS CURRENTLY> [facility] STILL WORKS PER PT GERD (gastroesophageal reflux disease) Obstructive sleep apnea (Chronic) Hyperlipidemia (Acute) Hypertension (Chronic) Medical History Septic shock FARNAZ (obstructive sleep apnea) CPAP Chronic kidney disease, stage 4 (severe) Erectile dysfunction Chronic anticoagulation Limb alert care status left arm AV fistula LEFT WRIST> NO DIALYSIS CURRENTLY> [facility]A STILL WORKS PER PT SOB (shortness of breath) hx, resolved Urinary retention Bacteremia due to Escherichia coli hx-hospitalized at [facility], treated, resolved Septic shock due to urinary tract infection hx, 2021, [facility] Anemia hx-currently stable Tremor Aortic valve endocarditis hx-developed during a bout of a UTI, in 2021, no current issues Osteoarthritis of left hip Metabolic syndrome Pulmonary nodule duplicate Dyslipidemia Encephalopathy hx-occurred due to fall related to "one of his infections," no current issues Supratherapeutic INR hx GERD (gastroesophageal reflux disease) Small bowel obstruction hx, resolved 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 History of basal cell carcinoma Multiple pulmonary nodules monitoring Nephrolithiasis hx Peripheral neuropathy Venous insufficiency Sarcoidosis f/u dr. cope, tx pulm. Hypertension Obesity Gout Surgical History History of surgery on right wrist History of cardiac cath 01/2018 > [facility] > NO STENTS; no cardio currently Kidney transplanted APR 04, 2019 > [place] > right side; f/u dr. 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 wilkins, [facility] H/O colonoscopy History of tooth extraction History of tonsillectomy History of melanoma excision left calf Family History Mother Stroke Heart disease Grandmother Cancer Lung disease Denies family history of Ovarian cancer Prostate cancer Colorectal cancer Social History Smoking Status: Never smoker Second Hand Exposure: Yes (hx as child); Do You Dip or Chew Tobacco: No; Hx Alcohol Use: No Hx Substance Use: No Preferred Language: Hebrew Communication Ability: Effective Visual Impairment: No Limitations Hearing Ability: Normal Plastic Straightening Roll Operator Required: No Beliefs That Will Affect Care: None marital status: Current Living Situation: Spouse Current Living Situation Comment: living with . current occupational status: employed current occupation: [employer] How many Children do You have: 1 Other Information That Helps Us Care for You: No Feels Safe at Home: Yes Safety Concerns: Feels Safe At This Time Diet: low salt caffeine: Yes (1-2 iced tea daily) Dental Care, Regularly: Yes Physical Activity Frequency: Does not Exercise Seatbelt Use: always Sunscreen Use: Yes Do you think of yourself as: straight/heterosexual Gender Identity: Male Assistive Devices: CPAP and Glasses Allergies Allergies Allergy/AdvReac Type Severity Reaction Status Date / Time allopurinol Allergy Unknown Rash Verified 03/06/24 13:23 hydromorphone [From Dilaudid] AdvReac Severe confusion Verified 03/06/24 13:23 Home Meds Home Medications Medication Instructions Recorded Confirmed cholecalciferol (vitamin D3) 25 1,000 units PO QAM 04/24/19 03/06/24 mcg (1,000 unit) capsule docusate sodium 100 mg capsule 100 mg PO BID PRN Constipation 04/24/19 03/06/24 (Colace) multivitamin (Daily Multi-Vitamin 1 tab PO QAM 04/24/19 03/06/24 tablet) acetaminophen 500 mg tablet 1,000 mg PO QID PRN Pain 08/24/21 03/06/24 (Tylenol Extra Strength) enoxaparin 30 mg/0.3 mL 30 mg subcut QAM 02/23/23 03/06/24 subcutaneous syringe (Lovenox) Previous Rx's Medication Instructions Recorded mycophenolate mofetil 250 mg 1,000 mg (4 x 250 mg) PO BID #180 08/27/22 capsule (CellCept) caps omeprazole 40 mg capsule,delayed 40 mg PO QAM #90 caps 06/03/23 release prednisone 5 mg tablet 5 mg PO QAM #90 tabs 08/11/23 tamsulosin 0.4 mg capsule (Flomax) 0.4 mg PO HS #90 caps 08/11/23 evolocumab 420 mg/3.5 mL 420 mg (3.5 mL) subcut .ONCE 08/17/23 subcutaneous wearable injector MONTHLY #10.5 mL (Repatha Pushtronex) furosemide 40 mg tablet (Lasix) 20 mg (1/2 x 40 mg) PO QAM #30 tabs 09/03/23 cyclosporine modified 100 mg 100 mg PO BID #180 caps 09/30/23 capsule febuxostat 80 mg tablet (Uloric) 80 mg PO QAM #90 tabs 11/29/23 duloxetine 60 mg capsule,delayed 60 mg PO QAM #90 caps 12/13/23 release finasteride 5 mg tablet (Proscar) 5 mg PO QAM #90 tabs 12/22/23 gabapentin 300 mg capsule 600 mg (2 x 300 mg) PO TID 90 days 12/24/23 #540 caps losartan 50 mg tablet 50 mg PO QAM #90 tabs 01/18/24 vibegron 75 mg tablet (Gemtesa) 75 mg PO DAILY #90 tabs 02/09/24 Results & Data (ED) Vital Signs Vital Signs - 24 hr 03/06/24 10:10 03/06/24 10:59 03/06/24 11:07 Temperature 36.9 C Temperature Source Oral Pulse Rate 104 H 103 H Pulse Rate [Apical] Pulse Rhythm Respiratory Rate 30 H Respiratory Effort / Characteristics Respiratory Depth Blood Pressure 149/77 H Blood Pressure [Right Arm] Blood Pressure Mean 101 Blood Pressure Mean [Right Arm] Pulse Oximetry 97 97 Oxygen Delivery Method Room Air Room Air Sepsis New/Unexplained Change in Mental Status No Sepsis Action Taken by Nursing No Action Required 03/06/24 11:07 03/06/24 11:07 03/06/24 12:19 Temperature 36.9 C Temperature Source Oral Pulse Rate 100 H Pulse Rate [Apical] 99 H 105 H Pulse Rhythm Regular Respiratory Rate 20 20 20 Respiratory Effort / Characteristics Non-Labored Non-Labored Respiratory Depth Normal Normal Blood Pressure Blood Pressure [Right Arm] 168/117 H 175/100 H Blood Pressure Mean Blood Pressure Mean [Right Arm] 134 125 Pulse Oximetry 97 98 100 Oxygen Delivery Method Room Air Room Air Room Air Sepsis New/Unexplained Change in Mental Status Sepsis Action Taken by Long-Term Medications Current Medication List: was personally reviewed by me Laboratory Data Attestation: I reviewed the patient's lab results. 03/06/24 10:35 03/06/24 10:35 Lab Results 03/06/24 03/06/24 03/06/24 Range/Units 10:35 11:20 11:48 WBC 13.05 H (4.8-10.8) K/ul RBC 3.99 L (4.70-6.10) M/uL Hgb 12.3 L (14.0-18.0) g/dl Hct 38.1 L (42.0-52.0) % MCV 95.5 (80.0-100.0) fL MCH 30.8 (25.0-34.0) pg MCHC 32.3 (32.0-36.0) g/dL RDW Std Deviation 44.5 (36.4-46.3) fL RDW Coeff of Theresa 13.8 (11.5-14.5) % Plt Count 231 (130-400) K/uL MPV 10.4 (9.4-12.4) fL Immature Gran % (Auto) 0.6 % Neut % (Auto) 84.8 % Lymph % (Auto) 2.9 % [place] % (Auto) 10.2 % Eos % (Auto) 1.1 % Baso % (Auto) 0.4 % Neut # (Auto) 11.06 H (1.40-6.50) K/uL Lymph # (Auto) 0.38 L (1.20-3.40) K/uL [place] # (Auto) 1.33 H (0.11-0.59) K/uL Eos # (Auto) 0.15 (0.00-0.50) K/uL Baso # (Auto) 0.05 (0.00-0.20) K/uL Immature Gran # (Auto) 0.08 (0.01-0.20) K/uL PT 10.7 (9.0-12.0) Seconds INR 1.0 (0.9-1.1) APTT 24 (21-31) Seconds PTT Ratio 0.9 Sodium 138 (136-145) mmol/L Potassium 4.5 (3.5-5.1) mmol/L Chloride 103 (98-107) mmol/L Carbon Dioxide 22 (21-32) mmol/L Anion Gap 13 H (3-11) BUN 65 H (6-23) mg/dl Creatinine 3.19 H (0.6-1.4) mg/dl Est Cr Clr Drug Dosing 32.6 ml/min eGFR 21.15 BUN/Creatinine Ratio 20.4 H (10-20) Glucose 90 (70-99(Fasting)) mg/dl Lactate 0.8 (0.4-2.0) mmol/L Calcium 10.6 H (8.6-10.3) mg/dl Magnesium 1.5 L (1.7-2.4) mg/dl Total Bilirubin 0.9 (0.2-1.0) mg/dl AST 16 (13-39) U/L ALT 14 (7-52) U/L Alkaline Phosphatase 79 (34-104) U/L Troponin I High Sens 14.2 (0-20) pg/ml C-Reactive Protein 2.31 H (0-0.5) mg/dl Total Protein 7.2 (6.0-8.3) gm/dl Albumin 4.6 (3.4-5.0) gm/dl Globulin 2.6 (2.5-4.0) gm/dl Albumin/Globulin Ratio 1.8 (0.9-2) Nasal Screen MRSA (PCR) Negative (Negative) SARS-CoV-2 (PCR) NEGATIVE (Negative) Influenza Type A (PCR) Negative (Neg) Influenza Type B (PCR) Negative (Neg) RSV (RT-PCR) Negative (Neg) Administered Medications Acetaminophen (Acetaminophen 325 Mg Tab) 650 mg PO Q4H PRN PRN Reason: Pain or Fever Stop: 04/05/24 14:22 Last Admin: 03/06/24 14:46 Dose: 650 mg Documented By: TY Magnesium Sulfate/Dextrose (Magnesium Sulfate / D5w) 1 gm in 100 mls @ 50 mls/hr IV Q2H [facility] Stop: 03/06/24 21:44 Last Admin: 03/06/24 18:18 Dose: 50 mls/hr Documented By: Infusion: 03/06/24 18:18 Dose: Infused Documented By: Admin: 03/06/24 18:18 Dose: 50 mls/hr Documented By: TY Discontinued Medications Gabapentin (Gabapentin 600 Mg Tab) 600 mg PO NOW STA Stop: 03/06/24 13:48 Last Admin: 03/06/24 16:24 Dose: 600 mg Documented By: TY Cefepime HCl (Maxipime 2000mg) 2,000 mg in 20 mls @ 5 mls/min IV NOW STA Stop: 03/06/24 11:25 Last Admin: 03/06/24 11:52 Dose: 5 mls/min Documented By: MANOLO Daptomycin 575 mg/ Syringe 11.5 mls @ 5.75 mls/min IV ONE STA; Protocol Stop: 03/06/24 12:57 Last Admin: 03/06/24 13:39 Dose: 5.75 mls/min Documented By: [employer] Imaging Data Radiologist's Impression: Chest X-Ray 03/06/24 10:17 XR chest 1V portable CLINICAL HISTORY: SOB TECHNIQUE: Single frontal radiograph of the chest was obtained. Comparison: Comparison is made to chest radiograph 02/13/[address] chest 02/13/2024 FINDINGS: No lines and tubes are seen. The cardiomediastinal silhouette is stable. Prominence and cephalization of the vasculature is seen. Pulmonary nodules are not well seen on this exam, better appreciated on prior CT. No evidence of pleural effusion or pneumothorax. IMPRESSION: Cardiomegaly and mild pulmonary edema. ACT 112: Negative or not required by law. Electronically signed by: Mega Pan M.D. 03/06/2024 10:47 AM Discharge Plan Visit Data Chief Complaint: Shortness of Breath/Dyspnea Stated Complaint: SOB/ALTERED MENTAL STATUS/ ED Provider: Vincent Samaniego Discharge Problem: Sepsis, History of kidney transplant, CKD (chronic kidney disease) Patient Disposition: Admitted As Inpatient Discharge Instructions Interventions: ED Discharge Assessment Last Done: 03/06/24 15:35 Discharge Problem: Sepsis Qualifiers: Sepsis type: sepsis due to unspecified organism Sepsis acute organ dysfunction status: unspecified Qualified Code(s): A41.9 - Sepsis, unspecified organism CKD (chronic kidney disease) Qualifiers: Chronic kidney disease stage: unspecified stage Qualified Code(s): N18.9 - Chronic kidney disease, unspecified
[2024-03-06] MEDS ORDERED: PIPERACILLIN/TAZOBACTAM 4.5 GM/100 ML BAG IV ONE (11:18)
[2024-03-06 11:27] LABS: Partial Thromboplastin Ratio 0.9; Partial Thromboplastin Time 24 Seconds (21-31); Prothrombin Time 10.7 Seconds (9.0-12.0)
[2024-03-06] MEDS: CEFEPIME 2000MG 2,000 MG/20 ML SYR IV STA (11:52)
[2024-03-06 11:59] LABS: Troponin I High Sensitivity 14.2 pg/ml (0-20)
[2024-03-06 12:10] LABS: Albumin Level 4.6 gm/dl (3.4-5.0); Bilirubin,Total 0.9 mg/dl (0.2-1.0); Calcium 10.6 mg/dl (8.6-10.3); Potassium 4.5 mmol/L (3.5-5.1)
[2024-03-06 12:16] LABS: Albumin Globulin Ratio 1.8 (0.9-2); BUN Creatinine Ratio 20.4 (10-20); Creatinine Clr Calc Pharmacy 32.6 ml/min; Globulin 2.6 gm/dl (2.5-4.0); Total Protein 7.2 gm/dl (6.0-8.3)
[2024-03-06 12:18] LABS: Influenza A virus by PCR Negative (Neg); Influenza B virus by PCR Negative (Neg); RSV by PCR Negative (Neg); SARS CoV2 RNA(COVID-19) Ceph NEGATIVE (Negative)
--- NOTE | 2024-03-06 12:48 | History & Physical Report ---
Date of Service March 06, 2024 Assessment & Plan (1) Sepsis: Plan: Suspected urinary source although ig growing same bacteria as previous or PSA elevated suspect truly more acute bacterial prostatitis given lack of urinary symptoms and prior inflammation on CTs Empiric cefepime + daptomycin Follow up blood and urine cultures Chronic prednisone use although with defer stress dose steroids on admission with normal BP with low tolerance to start this given recent history fo septic shock requiring vasopressors in the ICU Lactate 0.8 and BP normal, does not meet criteria for 30ml/kg fluid bolus (2) Hypomagnesemia: Plan: Mg level 1.5 Replace with 2g IV Mg sulfate and repeat level with AM labs (3) Kidney transplant status, living unrelated donor: Plan: Consult nephrology (4) Acute bacterial prostatitis: (5) UTI (urinary tract infection): Plan VTE Prophylaxis - continue his usual Lovenox 30mg SQ daily Diet - regular Disposition - admit to PCU Admission and Anticipated Discharge Date Admission Date: March 06, 2024 History of Present Illness Chief Complaint: Shorrtness of breath Rigors Primary Care Provider: MD Mela Esparzat Eve is a 63 year old male who presents to the ER with shortness of breath and rigors. Symptoms started today. Similar symptoms with prior sepsis and bacteria presumed to be of urinary source despite never having urinary symptoms including on this occasion. CT in the past have been concerning for prostatitis. Most recently here in January with E. coli bacteremia requiring ICU admission, stress dose steroids and vasopressors. Total 14 days of antibiotics. He was doing well up until this morning. Allergies Allergy/AdvReac Type Severity Reaction Status Date / Time allopurinol Allergy Unknown Rash Verified 03/06/24 13:23 hydromorphone [From Dilaudid] AdvReac Severe confusion Verified 03/06/24 13:23 Home Medications Medication Instructions Recorded Confirmed Type cholecalciferol (vitamin D3) 25 1,000 units PO QAM 04/24/19 03/06/24 History mcg (1,000 unit) capsule docusate sodium 100 mg capsule 100 mg PO BID PRN Constipation 04/24/19 03/06/24 History (Colace) multivitamin (Daily Multi-Vitamin 1 tab PO QAM 04/24/19 03/06/24 History tablet) acetaminophen 500 mg tablet 1,000 mg PO QID PRN Pain 08/24/21 03/06/24 History (Tylenol Extra Strength) mycophenolate mofetil 250 mg 1,000 mg (4 x 250 mg) PO BID #180 08/27/22 03/06/24 Rx capsule (CellCept) caps enoxaparin 30 mg/0.3 mL 30 mg subcut QAM 02/23/23 03/06/24 History subcutaneous syringe (Lovenox) omeprazole 40 mg capsule,delayed 40 mg PO QAM #90 caps 06/03/23 03/06/24 Rx release prednisone 5 mg tablet 5 mg PO QAM #90 tabs 08/11/23 03/06/24 Rx tamsulosin 0.4 mg capsule (Flomax) 0.4 mg PO HS #90 caps 08/11/23 03/06/24 Rx evolocumab 420 mg/3.5 mL 420 mg (3.5 mL) subcut .ONCE 08/17/23 03/06/24 Rx subcutaneous wearable injector MONTHLY #10.5 mL (Repatha Pushtronex) furosemide 40 mg tablet (Lasix) 20 mg (1/2 x 40 mg) PO QAM #30 tabs 09/03/23 03/06/24 Rx cyclosporine modified 100 mg 100 mg PO BID #180 caps 09/30/23 03/06/24 Rx capsule febuxostat 80 mg tablet (Uloric) 80 mg PO QAM #90 tabs 11/29/23 03/06/24 Rx duloxetine 60 mg capsule,delayed 60 mg PO QAM #90 caps 12/13/23 03/06/24 Rx release finasteride 5 mg tablet (Proscar) 5 mg PO QAM #90 tabs 12/22/23 03/06/24 Rx gabapentin 300 mg capsule 600 mg (2 x 300 mg) PO TID 90 days 12/24/23 03/06/24 Rx #540 caps losartan 50 mg tablet 50 mg PO QAM #90 tabs 01/18/24 03/06/24 Rx vibegron 75 mg tablet (Gemtesa) 75 mg PO DAILY #90 tabs 02/09/24 03/06/24 Rx Past Med/Surg History Problem List (Updated 03/07/24 @ 06:42 by Davion Dominguez MD) Hypomagnesemia UTI (urinary tract infection) Acute bacterial prostatitis CKD (chronic kidney disease) (Acute) History of kidney transplant (Acute) Sepsis (Acute) Sepsis Kidney transplant status, living unrelated donor Complicated urinary tract infection (Acute) History of kidney transplant (Acute) Sepsis (Acute) Chronic anticoagulation currently on lovenox 30mg daily Knee pain Edema Urinary urgency Bacteremia Sepsis (Acute) UTI (urinary tract infection), bacterial Statin intolerance Restrictive lung disease Metabolic acidosis Erectile dysfunction Immunocompromised (Acute) Elevated PSA CKD (chronic kidney disease) stage 4, GFR 15-29 ml/min (Acute) Retroperitoneal hematoma AV fistula LEFT WRIST> NO DIALYSIS CURRENTLY> [facility] STILL WORKS PER PT GERD (gastroesophageal reflux disease) Obstructive sleep apnea (Chronic) Hyperlipidemia (Acute) Hypertension (Chronic) Medical History Septic shock FARNAZ (obstructive sleep apnea) CPAP Chronic kidney disease, stage 4 (severe) Erectile dysfunction Chronic anticoagulation Limb alert care status left arm AV fistula LEFT WRIST> NO DIALYSIS CURRENTLY> [facility] STILL WORKS PER PT SOB (shortness of breath) hx, resolved Urinary retention Bacteremia due to Escherichia coli hx-hospitalized at [facility], treated, resolved Septic shock due to urinary tract infection hx, 2021, [facility] Anemia hx-currently stable Tremor Aortic valve endocarditis hx-developed during a bout of a UTI, in 2021, no current issues Osteoarthritis of left hip Metabolic syndrome Pulmonary nodule duplicate Dyslipidemia Encephalopathy hx-occurred due to fall related to "one of his infections," no current issues Supratherapeutic INR hx GERD (gastroesophageal reflux disease) Small bowel obstruction hx, resolved 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 History of basal cell carcinoma Multiple pulmonary nodules monitoring Nephrolithiasis hx Peripheral neuropathy Venous insufficiency Sarcoidosis f/u dr. cope, [place]. Hypertension Obesity Gout Surgical History History of surgery on right wrist History of cardiac cath 01/2018 > [facility] > NO STENTS; no cardio currently Kidney transplanted APR 04, 2019 > [place] IN [place] > right side; f/u dr. diaz, pin puller at [place] in conjunction with dr. 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 current occupational status: employed current occupation: [employer] How many Children do You have: 1 Other Information That Helps Us Care for You: No Feels Safe at Home: Yes Safety Concerns: Feels Safe At This Time Diet: low salt caffeine: Yes (1-2 iced tea daily) Dental Care, Regularly: Yes Physical Activity Frequency: Does not Exercise Seatbelt Use: always Sunscreen Use: Yes Do you think of yourself as: straight/heterosexual Gender Identity: Male Assistive Devices: CPAP and Glasses Review of Systems Review of Systems: All systems reviewed & are unremarkable except as noted in HPI & below Physical Exam Constitutional: WD/WN, vitals as above Eyes: + anicteric sclerae; normal pupil size ENMT: external ear and nose normal, oropharynx normal Respiratory: normal respiratory effort, lungs clear to auscultation Cardiovascular: Rate/Rhythm: regular rhythm and + tachycardic Heart Sounds: no murmur Extremities: normal capillary refill; no calf tenderness and no pe bib edema Gastrointestinal (Abdomen): normal bowel sounds, soft, nontender, no hepatosplenomegaly Musculoskeletal: no cyanosis or clubbing, extremities motor strength 5/5 Skin: no rashes, warm and dry Neurologic: moves all extremities and awake; not confused Psychiatric: A+Ox3, euthymic affect Genitourinary: no CVA tenderness Results & Data Results & Data Vital Signs (Past 12 Hours) Vital Signs Temp Pulse Pulse Resp BP BP Pulse Ox 03/06/24 12:19 36.9 C 105 H 20 175/100 H 100 03/06/24 11:07 100 H 20 98 03/06/24 11:07 99 H 20 168/117 H 97 03/06/24 11:07 97 03/06/24 10:59 103 H 03/06/24 10:10 36.9 C 104 H 30 H 149/77 H 97 O2 Del Method 03/06/24 12:19 Room Air 03/06/24 11:07 Room Air 03/06/24 11:07 Room Air 03/06/24 11:07 Room Air 03/06/24 10:59 03/06/24 10:10 Room Air Laboratory Results Abnormal lab results 03/06/24 Range/Units 10:35 WBC 13.05 H (4.8-10.8) K/ul RBC 3.99 L (4.70-6.10) M/uL Hgb 12.3 L (14.0-18.0) g/dl Hct 38.1 L (42.0-52.0) % Neut # (Auto) 11.06 H (1.40-6.50) K/uL Lymph # (Auto) 0.38 L (1.20-3.40) K/uL Howell # (Auto) 1.33 H (0.11-0.59) K/uL Anion Gap 13 H (3-11) BUN 65 H (6-23) mg/dl Creatinine 3.19 H (0.6-1.4) mg/dl BUN/Creatinine Ratio 20.4 H (10-20) Calcium 10.6 H (8.6-10.3) mg/dl Diagnostic Findings XR chest 1V portable CLINICAL HISTORY: SOB TECHNIQUE: Single frontal radiograph of the chest was obtained. Comparison: Comparison is made to chest radiograph 02/13/[address] chest 02/13/2024 FINDINGS: No lines and tubes are seen. The cardiomediastinal silhouette is stable. Prominence and cephalization of the vasculature is seen. Pulmonary nodules are not well seen on this exam, better appreciated on prior CT. No evidence of pleural effusion or pneumothorax. IMPRESSION: Cardiomegaly and mild pulmonary edema. Medications Administered ER medications given: Cefepime 2000 mg IV ECG Rate (beats per minute): 100 Rhythm: normal sinus Findings: + other (Bifascicular block), + LAFB and + RBBB; no acute ischemic change Comparison ECG Date: from (February 13, 2024) Change: the following changes noted (Fusion complexes no longer Present) Code Status & VTE Plan Code Status Full VTE Prophylaxis Plan VTE Prophylaxis will be ordered: Yes PG Care Time/CCT Total # of Minutes Spent Total Time Spent with Patient: Total time spent is greater than 50% in coordination of care (as documented) at patient's floor/unit and/or counseling patient: Coding Level of Care Code 52054 INT INP/OBS CARE 3/75MIN Diagnoses Sepsis A41.9 Hypomagnesemia E83.42 Kidney transplant status, living unrelated donor Z94.0 Acute bacterial prostatitis N41.0 UTI (urinary tract infection) N39.0
[2024-03-06 13:24] LABS: C Reactive Protein 2.31 mg/dl (0-0.5); Magnesium 1.5 mg/dl (1.7-2.4)
[2024-03-06] MEDS: DAPTOmycin 575 MG in SYRINGE 0 ML IV STA (13:39)
[2024-03-06] MEDS: ACETAMINOPHEN 325 MG TAB PO PRN (14:46)
--- NOTE | 2024-03-06 16:14 | Electrocardiogram Report ---
Test Reason : Blood Pressure : */* mmHG Vent. Rate : 100 BPM Atrial Rate : 100 BPM P-R Int : 174 ms QRS Dur : 130 ms QT Int : 342 ms P-R-T Axes : 53 -55 57 degrees QTcB Int : 441 ms Poor data quality, interpretation may be adversely affected Normal sinus rhythm Right bundle branch block Left anterior fascicular block Bifascicular block Minimal voltage criteria for LVH, may be normal variant ( R in aVL ) Abnormal ECG When compared with ECG of 13-Feb-2024 20:38, No significant change Confirmed by Saleem Castellon ([id number]) on 03/06/2024 4:13:40 PM Referred By: Confirmed By: Saleem Castellon
[2024-03-06] MEDS: GABAPENTIN 600 MG TAB PO STA (16:24)
[2024-03-06 17:00] LABS: Appearance Urine Cloudy (Clear); Bacteria Urine Automated 2+ (None Seen); Bilirubin Urine Negative (Negative); Blood Urine 1+ (Negative); Color Urine Yellow; Epithelial Cell Urine Auto 0-2 /hpf (0-2); Glucose Urine UA Negative (Negative); Ketones Urine Negative (Negative); Leukocyte Esterase Urine 2+ (Negative); Nitrite Urine Positive (Negative); Protein Urine 2+ (Negative); Specific Gravity Urine 1.017 (1.000-1.030); Urobilinogen Urine Negative (Negative); WBC Urine Automated >50 /hpf (0-5); pH Urine 5.5 (4.5-7.5)
--- NOTE | 2024-03-06 17:15 | Nephrology Consultation ---
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 Baseline Cr has risen to 3.0-3.5 * Continue outpatient immunosuppressive regimen: Neoral 100 mg po BID, MMF 1000 mg po BID and prednisone 5 mg daily * Monitor daily BMP (2) Sepsis: * Sepsis likely from urinary source * Urinalysis + for nitrates, microscopy reveals pyuria and bacteruria * Await urine culture results * Patient has received one dose Cefepime and Daptomycin History of Present Illness Reason for Consultation: ESKD s/p LURT Attending Physician: Davion Dominguez MD History of Present Illness Mr. Prado is a 63 year old white male who is seen at the request of the [facility] hospitalist service for evaluation of LURT. Medical records in the EMR were reviewed today and are summarized as follows: Mr. Prado suffered from chronic GN and progressed to ESRD in early 2018. He had a R radiocephalic AVF in place and was started on in-center HD. In March 2019 he received a LURT from his [id number]. The transplant was performed at [facility] in [place]. Post transplant Cr stabilized at 1.2. His immunosuppressive regimen remains Tacrolimus, MMF, Prednisone. In summer 2019 Cr increased to 1.9 and Mr. Prado developed a DVT requiring anticoagulation therapy. Medical evaluation revealed nephrotic range proteinuria (4.4g/day). Transplant kidney biopsy revealed FSGS. Tacrolimus was changed to CSA and Losartan was added to his medical regimen. Unfortunately Mr. Prado suffered a slow decline in transplant function. Cr increased to 3.0-3.5 in late 2020. His current immunosuppressive regimen consists of Neoral 100 mg po BID, MMF 1000 mg po BID and prednisone 5 mg daily. Mr. Prado has a h/o LE DVT managed with w arfarin. Unfortunately he has suffered recurrent retroperitoneal hematomas. He has been transition from warfarin to apixaban therapy. Mr. Prado has a history of recurrent UTI (SGLT2 inhibitor therapy withheld due to recurrent UTI). Mr. Prado presented to [facility] EMD 03/06/2024 for evaluation of subjective fever, weakness and dyspnea. WBC# was 13K w/ L shift, Cr stable at 3.2, CXR was negative for infiltrate. Urinalysis was positive for nitrates and pyuria. Urine microscopy reveals bacteria. Urine has been sent for culture. Patient received 2 g IV Cefepime in EMD. Primary service has provided one dose of IV Daptomycin. 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 Allergies Allergy/AdvReac Type Severity Reaction Status Date / Time allopurinol Allergy Unknown Rash Verified 03/06/24 13:23 hydromorphone [From Dilaudid] AdvReac Severe confusion Verified 03/06/24 13:23 Home Medications Medication Instructions Recorded Confirmed Type cholecalciferol (vitamin D3) 25 1,000 units PO QAM 04/24/19 03/06/24 History mcg (1,000 unit) capsule docusate sodium 100 mg capsule 100 mg PO BID PRN Constipation 04/24/19 03/06/24 History (Colace) multivitamin (Daily Multi-Vitamin 1 tab PO QAM 04/24/19 03/06/24 History tablet) acetaminophen 500 mg tablet 1,000 mg PO QID PRN Pain 08/24/21 03/06/24 History (Tylenol Extra Strength) mycophenolate mofetil 250 mg 1,000 mg (4 x 250 mg) PO BID #180 08/27/22 03/06/24 Rx capsule (CellCept) caps enoxaparin 30 mg/0.3 mL 30 mg subcut QAM 02/23/23 03/06/24 History subcutaneous syringe (Lovenox) omeprazole 40 mg capsule,delayed 40 mg PO QAM #90 caps 06/03/23 03/06/24 Rx release prednisone 5 mg tablet 5 mg PO QAM #90 tabs 08/11/23 03/06/24 Rx tamsulosin 0.4 mg capsule (Flomax) 0.4 mg PO HS #90 caps 08/11/23 03/06/24 Rx evolocumab 420 mg/3.5 mL 420 mg (3.5 mL) subcut .ONCE 08/17/23 03/06/24 Rx subcutaneous wearable injector MONTHLY #10.5 mL (Repatha Pushtronex) furosemide 40 mg tablet (Lasix) 20 mg (1/2 x 40 mg) PO QAM #30 tabs 09/03/23 03/06/24 Rx cyclosporine modified 100 mg 100 mg PO BID #180 caps 09/30/23 03/06/24 Rx capsule febuxostat 80 mg tablet (Uloric) 80 mg PO QAM #90 tabs 11/29/23 03/06/24 Rx duloxetine 60 mg capsule,delayed 60 mg PO QAM #90 caps 12/13/23 03/06/24 Rx release finasteride 5 mg tablet (Proscar) 5 mg PO QAM #90 tabs 12/22/23 03/06/24 Rx gabapentin 300 mg capsule 600 mg (2 x 300 mg) PO TID 90 days 12/24/23 03/06/24 Rx #540 caps losartan 50 mg tablet 50 mg PO QAM #90 tabs 01/18/24 03/06/24 Rx vibegron 75 mg tablet (Gemtesa) 75 mg PO DAILY #90 tabs 02/09/24 03/06/24 Rx Patient History Medical History Septic shock FARNAZ (obstructive sleep apnea) CPAP Chronic kidney disease, stage 4 (severe) Erectile dysfunction Chronic anticoagulation Limb alert care status left arm AV fistula LEFT WRIST> NO DIALYSIS CURRENTLY> FISTULA STILL WORKS PER PT SOB (shortness of breath) hx, resolved Urinary retention Bacteremia due to Escherichia coli hx-hospitalized at [facility], treated, resolved Septic shock due to urinary tract infection hx, 2021, [facility] Anemia hx-currently stable Tremor Aortic valve endocarditis hx-developed during a bout of a UTI, in 2021, no current issues Osteoarthritis of left hip Metabolic syndrome Pulmonary nodule duplicate Dyslipidemia Encephalopathy hx-occurred due to fall related to "one of his infections," no current issues Supratherapeutic INR hx GERD (gastroesophageal reflux disease) Small bowel obstruction hx, resolved 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 History of basal cell carcinoma Multiple pulmonary nodules monitoring Nephrolithiasis hx Peripheral neuropathy Venous insufficiency Sarcoidosis f/u dr. cope, [place]. Hypertension Obesity Gout Surgical History History of surgery on right wrist History of cardiac cath 01/2018 > [facility] > NO STENTS; no cardio currently Kidney transplanted APR 04, 2019 > [facility] [place] > right side; f/u dr. diaz, application trainer at [place] in conjunction with dr. wilkins, [facility] H/O colonoscopy History of tooth extraction History of tonsillectomy History of melanoma excision left calf Family History Mother Stroke Heart disease Grandmother Cancer Lung disease Denies family history of Ovarian cancer Prostate cancer Colorectal cancer Social History Smoking Status: Never smoker Second Hand Exposure: Yes (hx as child); Do You Dip or Chew Tobacco: No; Hx Alcohol Use: No Hx Substance Use: No Preferred Language: Kuwaiti Communication Ability: Effective Visual Impairment: No Limitations Hearing Ability: Normal Planning Division Superintendent Required: No Beliefs That Will Affect Care: None marital status: Current Living Situation: Spouse Current Living Situation Comment: living with . current occupational status: employed current occupation: [employer] How many Children do You have: 1 Other Information That Helps Us Care for You: No Feels Safe at Home: Yes Safety Concerns: Feels Safe At This Time Diet: low salt caffeine: Yes (1-2 iced tea daily) Dental Care, Regularly: Yes Physical Activity Frequency: Does not Exercise Seatbelt Use: always Sunscreen Use: Yes Do you think of yourself as: straight/heterosexual Gender Identity: Male Assistive Devices: CPAP and Glasses Review of Systems Constitutional: + fever and + chills Eyes: no problem reported Ear, Nose, Mouth, Throat: no problem reported Respiratory: no cough and no dyspnea Cardiovascular: no chest pain Gastrointestinal: no abdominal pain, no nausea, no vomiting and no diarrhea/loose stools Genitourinary: no dysuria or no hematuria Integumentary: no rash Physical Exam Constitutional: not in distress Eyes: PERRL, conjunctivae normal, anicteric sclerae ENMT: external ear and nose normal, oropharynx normal Neck: trachea midline, no thyromegaly Respiratory: normal respiratory effort, lungs clear to auscultation Cardiovascular: Rate/Rhythm: regular rhythm and + tachycardic Extremities: + edema (trace pretibial pitting edema) Gastrointestinal (Abdomen): Inspection/Auscultation: abdomen normal to inspection No pain to palpation over renal allograft Skin: pretibial hemosiderin staining Neurologic: Speech / Cognition: normal speech and normal cognition Results & Data Vital Signs (Past 12 Hours) Vital Signs Temp Pulse Pulse Resp BP BP Pulse Ox 03/06/24 16:19 37.0 C 100 H 18 117/72 94 03/06/24 15:42 03/06/24 15:35 03/06/24 14:11 96 H 20 164/103 H 96 03/06/24 12:19 36.9 C 105 H 20 175/100 H 100 03/06/24 11:07 100 H 20 98 03/06/24 11:07 99 H 20 168/117 H 97 03/06/24 11:07 97 03/06/24 10:59 103 H 03/06/24 10:10 36.9 C 104 H 30 H 149/77 H 97 O2 Del Method 03/06/24 16:19 Room Air 03/06/24 15:42 Room Air 03/06/24 15:35 Room Air 03/06/24 14:11 Room Air 03/06/24 12:19 Room Air 03/06/24 11:07 Room Air 03/06/24 11:07 Room Air 03/06/24 11:07 Room Air 03/06/24 10:59 03/06/24 10:10 Room Air Laboratory Results Laboratory Results WBC 13.05 K/ul (4.8-10.8) H 03/06/24 10:35 RBC 3.99 M/uL (4.70-6.10) L 03/06/24 10:35 Hgb 12.3 g/dl (14.0-18.0) L 03/06/24 10:35 Hct 38.1 % (42.0-52.0) L 03/06/24 10:35 MCV 95.5 fL (80.0-100.0) 03/06/24 10:35 MCH 30.8 pg (25.0-34.0) 03/06/24 10:35 MCHC 32.3 g/dL (32.0-36.0) 03/06/24 10:35 RDW Std Deviation 44.5 fL (36.4-46.3) 03/06/24 10:35 RDW Coeff of Theresa 13.8 % (11.5-14.5) 03/06/24 10:35 Plt Count 231 K/uL (130-400) 03/06/24 10:35 MPV 10.4 fL (9.4-12.4) 03/06/24 10:35 Immature Gran % (Auto) 0.6 % 03/06/24 10:35 Neut % (Auto) 84.8 % 03/06/24 10:35 Lymph % (Auto) 2.9 % 03/06/24 10:35 [place] % (Auto) 10.2 % 03/06/24 10:35 Eos % (Auto) 1.1 % 03/06/24 10:35 Baso % (Auto) 0.4 % 03/06/24 10:35 Neut # (Auto) 11.06 K/uL (1.40-6.50) H 03/06/24 10:35 Lymph # (Auto) 0.38 K/uL (1.20-3.40) L 03/06/24 10:35 [place] # (Auto) 1.33 K/uL (0.11-0.59) H 03/06/24 10:35 Eos # (Auto) 0.15 K/uL (0.00-0.50) 03/06/24 10:35 Baso # (Auto) 0.05 K/uL (0.00-0.20) 03/06/24 10:35 Immature Gran # (Auto) 0.08 K/uL (0.01-0.20) 03/06/24 10:35 PT 10.7 Seconds (9.0-12.0) 03/06/24 10:35 INR 1.0 (0.9-1.1) 03/06/24 10:35 APTT 24 Seconds (21-31) 03/06/24 10:35 PTT Ratio 0.9 03/06/24 10:35 Sodium 138 mmol/L (136-145) 03/06/24 10:35 Potassium 4.5 mmol/L (3.5-5.1) 03/06/24 10:35 Chloride 103 mmol/L (98-107) 03/06/24 10:35 Carbon Dioxide 22 mmol/L (21-32) 03/06/24 10:35 Anion Gap 13 (3-11) H 03/06/24 10:35 BUN 65 mg/dl (6-23) H 03/06/24 10:35 Creatinine 3.19 mg/dl (0.6-1.4) H 03/06/24 10:35 Est Cr Clr Drug Dosing 32.6 ml/min 03/06/24 10:35 eGFR 21.15 03/06/24 10:35 BUN/Creatinine Ratio 20.4 (10-20) H 03/06/24 10:35 Glucose 90 mg/dl (70-99(Fasting)) 03/06/24 10:35 Lactate 0.8 mmol/L (0.4-2.0) 03/06/24 11:48 Calcium 10.6 mg/dl (8.6-10.3) H 03/06/24 10:35 Magnesium 1.5 mg/dl (1.7-2.4) L 03/06/24 10:35 Total Bilirubin 0.9 mg/dl (0.2-1.0) 03/06/24 10:35 AST 16 U/L (13-39) 03/06/24 10:35 ALT 14 U/L (7-52) 03/06/24 10:35 Alkaline Phosphatase 79 U/L (34-104) 03/06/24 10:35 Troponin I High Sens 14.2 pg/ml (0-20) 03/06/24 10:35 C-Reactive Protein 2.31 mg/dl (0-0.5) H 03/06/24 10:35 Total Protein 7.2 gm/dl (6.0-8.3) 03/06/24 10:35 Albumin 4.6 gm/dl (3.4-5.0) 03/06/24 10:35 Globulin 2.6 gm/dl (2.5-4.0) 03/06/24 10:35 Albumin/Globulin Ratio 1.8 (0.9-2) 03/06/24 10:35 Prostate Specific Ag 2.131 ng/ml (0-4) 03/06/24 14:48 Procalcitonin 0.81 ng/ml (0-0.5) H 03/06/24 13:15 Urine Color Yellow 03/06/24 16:30 Urine Appearance Cloudy (Clear) A 03/06/24 16:30 Urine pH 5.5 (4.5-7.5) 03/06/24 16:30 Ur Specific [place] 1.017 (1.000-1.030) 03/06/24 16: Urine Protein 2+ (Negative) H 03/06/24 16:30 Urine Glucose (UA) Negative (Negative) 03/06/24 16: Urine Ketones Negative (Negative) 03/06/24 16:30 Urine Blood 1+ (Negative) H 03/06/24 16:30 Urine Nitrite Positive (Negative) A 03/06/24 16:30 Urine Bilirubin Negative (Negative) 03/06/24 16:30 Urine Urobilinogen Negative (Negative) 03/06/24 16:30 Ur Leukocyte Esterase 2+ (Negative) H 03/06/24 16:30 Urine WBC (Auto) >50 /hpf (0-5) H 03/06/24 16:30 Urine RBC (Auto) 3-5 /hpf (0-2) H 03/06/24 16:30 U Hyaline Cast (Auto) 3-5 /lpf (0-2) H 03/06/24 16:30 U Epithel Cells (Auto) 0-2 /hpf (0-2) 03/06/24 16:30 Urine Bacteria (Auto) 2+ (None Seen) H 03/06/24 16:30 Nasal Screen MRSA (PCR) Negative (Negative) 03/06/24 11:48 SARS-CoV-2 (PCR) NEGATIVE (Negative) 03/06/24 11:20 Influenza Type A (PCR) Negative (Neg) 03/06/24 11:20 Influenza Type B (PCR) Negative (Neg) 03/06/24 11:20 RSV (RT-PCR) Negative (Neg) 03/06/24 11:20 Impressions Chest X-Ray 03/06/24 10:17 XR chest 1V portable CLINICAL HISTORY: SOB TECHNIQUE: Single frontal radiograph of the chest was obtained. Comparison: Comparison is made to chest radiograph 02/13/[address] chest 02/13/2024 FINDINGS: No lines and tubes are seen. The cardiomediastinal silhouette is stable. Prominence and cephalization of the vasculature is seen. Pulmonary nodules are not well seen on this exam, better appreciated on prior CT. No evidence of pleural effusion or pneumothorax. IMPRESSION: Cardiomegaly and mild pulmonary edema. ACT 112: Negative or not required by law. Electronically signed by: Mega Pan M.D. 03/06/2024 10:47 AM PG Care Time/CCT Total # of Minutes Spent Total Time Spent with Patient: Total time spent is greater than 50% in coordination of care (as documented) at patient's floor/unit and/or counseling patient: Coding Level of Care Code 12110 IN/OBS CONSULT LVL 5,80M Diagnoses Kidney transplant status, living unrelated donor Z94.0 Sepsis A41.9
[2024-03-06] MEDS ORDERED: DOCUSATE SODIUM 100 MG CAP PO PRN (17:30)
[2024-03-06] MEDS: MAGNESIUM SULFATE / D5W 1 GM/100 ML BAG IV SCH (18:18)
[2024-03-06] MEDS: MYCOPHENOLATE MOFETIL 250 MG CAP PO SCH (20:49)
[2024-03-06] MEDS: cycloSPORINE 100 MG CAP PO SCH (20:50)
[2024-03-06] MEDS: TAMSULOSIN HCL 0.4 MG CAP PO SCH (20:50)
[2024-03-06] MEDS: GABAPENTIN 300 MG CAP PO SCH (20:50)
[2024-03-06] MEDS: ACETAMINOPHEN 500 MG TAB PO PRN (20:53)
[2024-03-06] MEDS: HYDROCORTISONE SOD 50 MG in SYRINGE 0 ML IV SCH (23:32)
[2024-03-06] MEDS: CEFEPIME 2000MG 2,000 MG/20 ML SYR IV SCH (23:32)
[2024-03-07 02:29] LABS: A calco-baum cmplx NotReported Not Detected (NotDetected); Bact fragilis Not Reported Not Detected (NotDetected); Blood Culture Id Panel See PCR Comment (NotDetected); C auris Not Reported Not Detected (NotDetected); CTX-M Resistant Gene Not Detected (NotDetected); Calbicans Not Reported Not Detected (NotDetected); Candida glabrata Not Reported Not Detected (NotDetected); Candida krusei Not Reported Not Detected (NotDetected); Cneoformans/gatti Not Reported Not Detected (NotDetected); Cparapsilosis Not Reported Not Detected (NotDetected); E cloacae compx Not Reported Not Detected (NotDetected); Efaecalis Not Reported Not Detected (NotDetected); Efaecium Not Reported Not Detected (NotDetected); Enterobacterales Not Reported DETECTED (NotDetected); Escherichia coli Not Reported DETECTED (NotDetected); H influenzae Not Reported Not Detected (NotDetected); IMP Resistant Gene Not Detected (NotDetected); K aerogenes Not Reported Not Detected (NotDetected); KPC Resistant Gene Not Detected (NotDetected); Koxytoca Not Reported Not Detected (NotDetected); Kpneumoniae grp Not Reported Not Detected (NotDetected); Lmonocyt Not Reported Not Detected (NotDetected); N meningitidis Not Reported Not Detected (NotDetected); NDM Resistant Gene Not Detected (NotDetected); OXA 48 Like Resistant Gene Not Detected (NotDetected); P aeruginosa Not Reported Not Detected (NotDetected); Proteus spp Not Reported Not Detected (NotDetected); Salmonella spp Not Reported Not Detected (NotDetected); Staph lugdunensis Not Reported Not Detected (NotDetected); Staph spp. Not Reported Not Detected (NotDetected); Staphaureus Not Reported Not Detected (NotDetected); Staphepi Not Reported Not Detected (NotDetected); Stenmaltophilia Not Reported Not Detected (NotDetected); Strep agal(GrpB) Not Reported Not Detected (NotDetected); Strep pneum Not Reported Not Detected (NotDetected); Strep pyog (GrpA) Not Reported Not Detected (NotDetected); Strep spp Not Reported Not Detected (NotDetected); VIM Resistant Gene Not Detected (NotDetected); mcr-1 Colistin Resistant Gene Not Detected (NotDetected)
[2024-03-07 02:31] LABS: Enterobacterales DETECTED (NotDetected)
[2024-03-07 05:35] LABS: Calcium 9.5 mg/dl (8.6-10.3); Magnesium 2.2 mg/dl (1.7-2.4); Potassium 5.2 mmol/L (3.5-5.1)
[2024-03-07 05:41] LABS: Creatinine Clr Calc Pharmacy 30.1 ml/min
[2024-03-07 06:25] LABS: Basophils # (auto) 0.04 K/uL (0.00-0.20); Basophils % (auto) 0.4 %; Eosinophils # (auto) 0.06 K/uL (0.00-0.50); Eosinophils % (auto) 0.6 %; Hematocrit (blood only) 33.7 % (42.0-52.0); Hemoglobin 11.1 g/dl (14.0-18.0); Immature Granulocytes # (auto) 0.05 K/uL (0.01-0.20); Immature Granulocytes % (auto) 0.5 %; Lymphocytes % (auto) 3.9 %; Mean Corpuscular Hemoglobin 31.2 pg (25.0-34.0); Mean Corpuscular Hgb Conc 32.9 g/dL (32.0-36.0); Mean Corpuscular Volume 94.7 fL (80.0-100.0); Mean Platelet Volume 11.2 fL (9.4-12.4); Monocytes % (auto) 4.8 %; Neutrophils # (auto) 9.33 K/uL (1.40-6.50); Neutrophils % (auto) 89.8 %; Platelet Count 214 K/uL (130-400); RDW Coefficient of Variation 13.9 % (11.5-14.5); RDW Standard Deviation 44.9 fL (36.4-46.3); Red Blood Count 3.56 M/uL (4.70-6.10); White Blood Count 10.38 K/ul (4.8-10.8)
--- NOTE | 2024-03-07 07:38 | Hospitalist Progress Note ---
Date of Service March 07, 2024 Assessment & Plan (1) Sepsis: (2) UTI (urinary tract infection): (3) History of kidney transplant: (4) CKD (chronic kidney disease): (5) Hypomagnesemia: Plan Kirby is a 63yo M w h/o ESKD s/p LURT, BPH, GERD, FARNAZ, HTN, HLD, and prior bacteremia 2/2 UTI. #Sepsis - met SIRS criteria on arrival w HR > 90, RR > 20, WBC > 12; likely urinary source h/o bacteremia 2/2 UTI h/o elevated PSA, consider acute bacterial prostatitis - CRP 2.31, procal 0.81; lactate (0.8) and PSA (2.131) wnl - Empiric abx as recc'd by pharmacy Cefepime 2,000mg IV q12h Dapto 575mg IV q24h - Vitals stabilized, now wnl; leukocytosis resolved - Urine cultures pending - Prelim blood cx show gram neg bacilli (Enterobacterales, E. coli) Narrowed IV abx to Rocephin 2,000mg IV q24h #UTI - UA w 2+ prot, 2+ leuk esterase, 2+ bacteria, 1+ blood, + nitrites - UCx pending - Continue empiric cefepime + daptomycin, pending culture/sensitivities #H/o kidney transplant #CKD - s/p transplant f/ living unrelated donor - 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 Currently 3.45; monitor daily BMP - Continue outpatient immunosuppressive regimen Neoral 100 mg po BID Mycophenolate 1000 mg po BID Prednisone 5 mg daily Managed by Dr. Sanderson outpatient Pt does have a left upper extremity fistula #Hypomagnesemia - Resolved s/p 2g IV Mag sulf - Initially 1.5; now 2.2 Chronic conditions - GERD - continue protonix - HTN - continue losartan - HLD - h/o statin intolerance - BPH - continue home tamsulosin, vibegron, finasteride - Neuropathic pain - gabapenin, duloxetine - Continue chronic anticoag w lovenox Admission and Anticipated Discharge Date Admission Date: March 06, 2024 Supervising Physician Co-Signing Physician Notes I personally examined the patient and verified all bunch points of history and exam, discussed case, and agree with decision making with Dr Piña feeling better no LUTS no urinary retention no GI sx darren noted nad heent nc at mmm breathing unlabored no accessory muscles good effort skin without rashes pallor or icterus recurrent gram negative sepsis - ?prostatitis, other? ?just due to immunocompromise. ongoign eval. continue abx. supportive care. time CKD4 s/p renal transplant - appreciate nephro input DVT proph - lovenox Subjective Reports feeling much better today, saying improvement in sx started last night. Currently sitting at edge of bed, working on his computer. Only current complaint is recent h/o shingles w remaining R ear pain; says his PCP expects longer-lasting neurological sequelae d/t delayed tx of the infection (started antiviral ~6d after initial rash.) Says his illness progressed too rapidly to generalized sx requiring hospitalization for him to take note of any urinary sx. Denies MAJANO, dizziness, CP, SOB, abd pain, n/v/d, dysuria, increased frequency or urgency, increased hesitancy, nocturia. Very insightful about condition, med hx, and what to expect from hospitalization. Review of Systems 2 Review of Systems: As per HPI. Physical Exam 2 Physical Exam: Gen: Very pleasant, sitting comfortably at edge of bed, NAD HEENT: NCAT, PERRL, some lesions (scabbing?) near R crown of head CV: RRR, no m/r/g, S1/S2 normal Resp: CTAB, symmetrical chest rise, breathing non-labored Abd: Soft, NT/ND, +BS, no HSM MSK: Full ROM, normal str, no gross deformities Skin: Warm, dry, pink, no rashes or lesions Psych: Mood-affect congruent. Speech pace and content normal. Results & Data Results & Data Vital Signs (Past 12 Hours) Vital Signs Temp Pulse Pulse Resp BP Pulse Ox O2 Del Method 03/07/24 02:52 37.3 C 69 16 162/82 H 95 Room Air 03/06/24 23:16 37.0 C 76 16 124/76 97 Room Air 03/06/24 22:39 72 Laboratory Results 03/07/24 06:02 03/07/24 04:17 Diagnostic Findings XR chest 1V portable CLINICAL HISTORY: SOB TECHNIQUE: Single frontal radiograph of the chest was obtained. Comparison: Comparison is made to chest radiograph 02/13/[address] chest 02/13/2024 FINDINGS: No lines and tubes are seen. The cardiomediastinal silhouette is stable. Prominence and cephalization of the vasculature is seen. Pulmonary nodules are not well seen on this exam, better appreciated on prior CT. No evidence of pleural effusion or pneumothorax. IMPRESSION: Cardiomegaly and mild pulmonary edema. Electronically signed by: Mega Pan M.D. 03/06/2024 10:47 AM Resident Activity Tracking Resident Involvement: Resident Care Provided Care Provided: Adult Hospital Medicine (4) CKD (chronic kidney disease) Chronic kidney disease stage: unspecified stage Qualified Code(s): N18.9 - Chronic kidney disease, unspecified
[2024-03-07] MEDS: DULoxetine HCL 60 MG CAP PO SCH (08:18)
[2024-03-07] MEDS: CHOLECALCIFEROL 25 MCG (1000 UNITS) TAB PO SCH (08:18)
[2024-03-07] MEDS: ENOXAPARIN INJ 30 MG/0.3 ML SYR SQ SCH (08:18)
[2024-03-07] MEDS: FINASTERIDE 5 MG TAB PO SCH (08:19)
[2024-03-07] MEDS: FUROSEMIDE 20 MG TAB PO SCH (08:19)
[2024-03-07] MEDS: MULTIVITAMIN TAB PO SCH (08:19)
[2024-03-07] MEDS: predniSONE 5 MG TAB PO SCH (08:20)
[2024-03-07] MEDS: PANTOprazole 40 MG TAB PO SCH (08:20)
[2024-03-07] MEDS: VIBEGRON 75 MG TAB PO SCH (08:20)
--- NOTE | 2024-03-07 08:49 | Nephrology Progress Note ---
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 Baseline Cr has risen to 3.0-3.5 * Continue outpatient immunosuppressive regimen: Neoral 100 mg po BID, MMF 1000 mg po BID and prednisone 5 mg daily * Creatinine has risen from 3.1 to 3.4. Patient has developed mild metabolic acidosis and hyperkalemia. Relative LORENZO due to underlying urosepsis. Will order low K diet and IV NaHCO3 at 80 cc/hr x 1 L, then stop * Monitor daily BMP (2) Sepsis: Plan: * Sepsis likely from urinary source * Urinalysis + for nitrates, microscopy reveals pyuria and bacteruria * Blood culture is + for gram negative rods * Await urine culture results * Patient has received one dose Cefepime and Daptomycin * Now on IV Rocephin therapy Admission and Anticipated Discharge Date Admission Date: March 06, 2024 Subjective Mr. Prado was evaluated in his hospital room this morning. He c/o R ear discomfort and reports a recent h/o shingles involving the R scalp. This morning he is subjectively improved and again sitting on the bedside performing computer work Review of Systems Constitutional: no fever Eyes: no problem reported Ear, Nose, Mouth, Throat: + ear pain (R) Respiratory: no cough and no dyspnea Cardiovascular: no chest pain Gastrointestinal: no abdominal pain, no nausea, no vomiting and no diarrhea/loose stools Genitourinary: no dysuria or no hematuria Integumentary: no rash Physical Exam Constitutional: not in distress Eyes: PERRL, conjunctivae normal, anicteric sclerae ENMT: external ear and nose normal, oropharynx normal R EAC patent without erythema, TM clear without bulging or redness Neck: trachea midline, no thyromegaly Respiratory: normal respiratory effort, lungs clear to auscultation Cardiovascular: Rate/Rhythm: regular rate and regular rhythm Extremities: no edema Gastrointestinal (Abdomen): Inspection/Auscultation: abdomen normal to inspection Skin: rash involving scalp and R ear has resolved Neurologic: Speech / Cognition: normal speech and normal cognition Results & Data Vital Signs (Past 12 Hours) Vital Signs Temp Pulse Pulse Resp BP Pulse Ox O2 Del Method 03/07/24 08:04 70 03/07/24 07:50 36.6 C 73 20 132/75 96 Room Air 03/07/24 02:52 37.3 C 69 16 162/82 H 95 Room Air 03/06/24 23:16 37.0 C 76 16 124/76 97 Room Air 03/06/24 22:39 72 Laboratory Results Laboratory Results - last 24 hr 03/06/24 03/06/24 03/06/24 10:35 11:20 11:48 WBC 13.05 H RBC 3.99 L Hgb 12.3 L Hct 38.1 L MCV 95.5 MCH 30.8 MCHC 32.3 RDW Std Deviation 44.5 RDW Coeff of Theresa 13.8 Plt Count 231 MPV 10.4 Immature Gran % (Auto) 0.6 Neut % (Auto) 84.8 Lymph % (Auto) 2.9 [place] % (Auto) 10.2 Eos % (Auto) 1.1 Baso % (Auto) 0.4 Neut # (Auto) 11.06 H Lymph # (Auto) 0.38 L [place] # (Auto) 1.33 H Eos # (Auto) 0.15 Baso # (Auto) 0.05 Immature Gran # (Auto) 0.08 Absolute Nucleated RBC Nucleated RBC % (auto) Neutrophils % (Manual) Band Neutrophils % Lymphocytes % (Manual) Prolymphocyte % Reactive Lymphs % (Man) Monocytes % (Manual) Eosinophils % (Manual) Basophils % (Manual) Metamyelocytes % (Man) Myelocytes % (Man) Promyelocytes % (Man) Blast Cells % (Manual) Plasma Cell % (Manual) Other Cells % Nucleated RBC % Neutrophils # (Manual) Band Neutrophils # Total Absolute Neuts Lymphocytes # (Manual) Prolymphocyte # Reactive Lymphs # Total Abs Lymphocytes Monocytes # (Manual) Eosinophils # (Manual) Basophils # (Manual) Metamyelocytes # (Man) Myelocytes # (Manual) Promyelocytes # (Man) Blast Cells # (Man) Plasma Cell # (Manual) Other Cells # Nucleated RBCs # (Man) Hypersegmented Neuts Hyposegmented Neuts Hypogranular Neuts Large Granular Lymphs # Lrg Granular Lymphs Hairy Cells Smudge Cells Toxic Granulation Toxic Vacuolation Dohle Bodies Venessa Rods Platelet Estimate Hypogranular Platelets Giant Platelets Platelet Satelliting RBC Morphology Polychromasia Hypochromasia Poikilocytosis Basophilic Stippling Anisocytosis Microcytosis Macrocytosis Spherocytes Pappenheimer Bodies Sickle Cells Target Cells Tear Drop Cells Ovalocytes Stomatocytes [place] Bodies Echinocytes Acanthocytes (Spur) Rouleaux RBC Agglutinates Schistocytes Sezary Cell PT 10.7 INR 1.0 APTT 24 PTT Ratio 0.9 Sodium 138 Potassium 4.5 Chloride 103 Carbon Dioxide 22 Anion Gap 13 H BUN 65 H Creatinine 3.19 H Est Cr Clr Drug Dosing 32.6 eGFR 21.15 BUN/Creatinine Ratio 20.4 H Glucose 90 Lactate 0.8 Calcium 10.6 H Magnesium 1.5 L Total Bilirubin 0.9 AST 16 ALT 14 Alkaline Phosphatase 79 Troponin I High Sens 14.2 C-Reactive Protein 2.31 H Total Protein 7.2 Albumin 4.6 Globulin 2.6 Albumin/Globulin Ratio 1.8 Prostate Specific Ag Procalcitonin Urine Color Urine Appearance Urine pH Ur Specific [place] Urine Protein Urine Glucose (UA) Urine Ketones Urine Blood Urine Nitrite Urine Bilirubin Urine Urobilinogen Ur Leukocyte Esterase Urine WBC (Auto) Urine RBC (Auto) U Hyaline Cast (Auto) U Epithel Cells (Auto) Urine Bacteria (Auto) Nasal Screen MRSA (PCR) Negative SARS-CoV-2 (PCR) NEGATIVE Enterobacterales (PCR) DETECTED A E. coli (PCR) DETECTED A Influenza Type A (PCR) Negative Influenza Type B (PCR) Negative RSV (RT-PCR) Negative mcr-1 Colistin Res Gene PCR Not Detected blaIMP Car res Gene PCR Not Detected KPC-Carbap Res Gene PCR Not Detected blaNDM Car Res Gene PCR Not Detected OXA-48 Carbapenem Resis Gene (PCR) Not Detected blaVIM Car Res Gene PCR Not Detected CTX-M Gene Resistance (PCR) Not Detected Bld Cult ID Panel PCR See PCR Comment Blood Parasites ID 03/06/24 03/06/24 03/06/24 13:15 14:48 16:30 WBC RBC Hgb Hct MCV MCH MCHC RDW Std Deviation RDW Coeff of Theresa Plt Count MPV Immature Gran % (Auto) Neut % (Auto) Lymph % (Auto) [place] % (Auto) Eos % (Auto) Baso % (Auto) Neut # (Auto) Lymph # (Auto) [place] # (Auto) Eos # (Auto) Baso # (Auto) Immature Gran # (Auto) Absolute Nucleated RBC Nucleated RBC % (auto) Neutrophils % (Manual) Band Neutrophils % Lymphocytes % (Manual) Prolymphocyte % Reactive Lymphs % (Man) Monocytes % (Manual) Eosinophils % (Manual) Basophils % (Manual) Metamyelocytes % (Man) Myelocytes % (Man) Promyelocytes % (Man) Blast Cells % (Manual) Plasma Cell % (Manual) Other Cells % Nucleated RBC % Neutrophils # (Manual) Band Neutrophils # Total Absolute Neuts Lymphocytes # (Manual) Prolymphocyte # Reactive Lymphs # Total Abs Lymphocytes Monocytes # (Manual) Eosinophils # (Manual) Basophils # (Manual) Metamyelocytes # (Man) Myelocytes # (Manual) Promyelocytes # (Man) Blast Cells # (Man) Plasma Cell # (Manual) Other Cells # Nucleated RBCs # (Man) Hypersegmented Neuts Hyposegmented Neuts Hypogranular Neuts Large Granular Lymphs # Lrg Granular Lymphs Hairy Cells Smudge Cells Toxic Granulation Toxic Vacuolation Dohle Bodies Venessa Rods Platelet Estimate Hypogranular Platelets Giant Platelets Platelet Satelliting RBC Morphology Polychromasia Hypochromasia Poikilocytosis Basophilic Stippling Anisocytosis Microcytosis Macrocytosis Spherocytes Pappenheimer Bodies Sickle Cells Target Cells Tear Drop Cells Ovalocytes Stomatocytes [place] Bodies Echinocytes Acanthocytes (Spur) Rouleaux RBC Agglutinates Schistocytes Sezary Cell PT INR APTT PTT Ratio Sodium Potassium Chloride Carbon Dioxide Anion Gap BUN Creatinine Est Cr Clr Drug Dosing eGFR BUN/Creatinine Ratio Glucose Lactate Calcium Magnesium Total Bilirubin AST ALT Alkaline Phosphatase Troponin I High Sens C-Reactive Protein Total Protein Albumin Globulin Albumin/Globulin Ratio Prostate Specific Ag 2.131 Procalcitonin 0.81 H Urine Color Yellow Urine Appearance Cloudy A Urine pH 5.5 Ur Specific [place] 1.017 Urine Protein 2+ H Urine Glucose (UA) Negative Urine Ketones Negative Urine Blood 1+ H Urine Nitrite Positive A Urine Bilirubin Negative Urine Urobilinogen Negative Ur Leukocyte Esterase 2+ H Urine WBC (Auto) >50 H Urine RBC (Auto) 3-5 H U Hyaline Cast (Auto) 3-5 H U Epithel Cells (Auto) 0-2 Urine Bacteria (Auto) 2+ H Nasal Screen MRSA (PCR) SARS-CoV-2 (PCR) Enterobacterales (PCR) E. coli (PCR) Influenza Type A (PCR) Influenza Type B (PCR) RSV (RT-PCR) mcr-1 [place] Res Gene PCR blaIMP Car res Gene PCR KPC-Carbap Res Gene PCR blaNDM Car Res Gene PCR OXA-48 Carbapenem Resis Gene (PCR) blaVIM Car Res Gene PCR CTX-M Gene Resistance (PCR) Bld Cult ID Panel PCR Blood Parasites ID 03/07/24 03/07/24 04:17 06:02 WBC Cancelled 10.38 RBC Cancelled 3.56 L Hgb Cancelled 11.1 L Hct Cancelled 33.7 L MCV Cancelled 94.7 MCH Cancelled 31.2 MCHC Cancelled 32.9 RDW Std Deviation Cancelled 44.9 RDW Coeff of Theresa Cancelled 13.9 Plt Count Cancelled 214 MPV Cancelled 11.2 Immature Gran % (Auto) Cancelled 0.5 Neut % (Auto) Cancelled 89.8 Lymph % (Auto) Cancelled 3.9 [place] % (Auto) Cancelled 4.8 Eos % (Auto) Cancelled 0.6 Baso % (Auto) Cancelled 0.4 Neut # (Auto) Cancelled 9.33 H Lymph # (Auto) Cancelled 0.40 L [place] # (Auto) Cancelled 0.50 Eos # (Auto) Cancelled 0.06 Baso # (Auto) Cancelled 0.04 Immature Gran # (Auto) Cancelled 0.05 Absolute Nucleated RBC Cancelled Nucleated RBC % (auto) Cancelled Neutrophils % (Manual) Cancelled Band Neutrophils % Cancelled Lymphocytes % (Manual) Cancelled Prolymphocyte % Cancelled Reactive Lymphs % (Man) Cancelled Monocytes % (Manual) Cancelled Eosinophils % (Manual) Cancelled Basophils % (Manual) Cancelled Metamyelocytes % (Man) Cancelled Myelocytes % (Man) Cancelled Promyelocytes % (Man) Cancelled Blast Cells % (Manual) Cancelled Plasma Cell % (Manual) Cancelled Other Cells % Cancelled Nucleated RBC % Cancelled Neutrophils # (Manual) Cancelled Band Neutrophils # Cancelled Total Absolute Neuts Cancelled Lymphocytes # (Manual) Cancelled Prolymphocyte # Cancelled Reactive Lymphs # Cancelled Total Abs Lymphocytes Cancelled Monocytes # (Manual) Cancelled Eosinophils # (Manual) Cancelled Basophils # (Manual) Cancelled Metamyelocytes # (Man) Cancelled Myelocytes # (Manual) Cancelled Promyelocytes # (Man) Cancelled Blast Cells # (Man) Cancelled Plasma Cell # (Manual) Cancelled Other Cells # Cancelled Nucleated RBCs # (Man) Cancelled Hypersegmented Neuts Cancelled Hyposegmented Neuts Cancelled Hypogranular Neuts Cancelled Large Granular Lymphs Cancelled # Lrg Granular Lymphs Cancelled Hairy Cells Cancelled Smudge Cells Cancelled Toxic Granulation Cancelled Toxic Vacuolation Cancelled Dohle Bodies Cancelled Venessa Rods Cancelled Platelet Estimate Cancelled Hypogranular Platelets Cancelled Giant Platelets Cancelled Platelet Satelliting Cancelled RBC Morphology Cancelled Polychromasia Cancelled Hypochromasia Cancelled Poikilocytosis Cancelled Basophilic Stippling Cancelled Anisocytosis Cancelled Microcytosis Cancelled Macrocytosis Cancelled Spherocytes Cancelled Pappenheimer Bodies Cancelled Sickle Cells Cancelled Target Cells Cancelled Tear Drop Cells Cancelled Ovalocytes Cancelled Stomatocytes Cancelled [place] Bodies Cancelled Echinocytes Cancelled Acanthocytes (Spur) Cancelled Rouleaux Cancelled RBC Agglutinates Cancelled Schistocytes Cancelled Sezary Cell Cancelled PT INR APTT PTT Ratio Sodium 134 L Potassium 5.2 H Chloride 103 Carbon Dioxide 19 L Anion Gap 12 H BUN 69 H Creatinine 3.45 H Est Cr Clr Drug Dosing 30.1 eGFR 19.25 BUN/Creatinine Ratio 20.0 Glucose 114 H Lactate Calcium 9.5 Magnesium 2.2 Total Bilirubin AST ALT Alkaline Phosphatase Troponin I High Sens C-Reactive Protein Total Protein Albumin Globulin Albumin/Globulin Ratio Prostate Specific Ag Procalcitonin Urine Color Urine Appearance Urine pH Ur Specific [place] Urine Protein Urine Glucose (UA) Urine Ketones Urine Blood Urine Nitrite Urine Bilirubin Urine Urobilinogen Ur Leukocyte Esterase Urine WBC (Auto) Urine RBC (Auto) U Hyaline Cast (Auto) U Epithel Cells (Auto) Urine Bacteria (Auto) Nasal Screen MRSA (PCR) SARS-CoV-2 (PCR) Enterobacterales (PCR) E. coli (PCR) Influenza Type A (PCR) Influenza Type B (PCR) RSV (RT-PCR) mcr-1 [place]istin Res Gene PCR blaIMP Car res Gene PCR KPC-Carbap Res Gene PCR blaNDM Car Res Gene PCR OXA-48 Carbapenem Resis Gene (PCR) blaVIM Car Res Gene PCR CTX-M Gene Resistance (PCR) Bld Cult ID Panel PCR Blood Parasites ID Cancelled Microbiology 03/06/24 11:48 Anaerobic Blood Culture - Preliminary Blood Gram negative bacilli 03/06/24 11:40 Aerobic Blood Culture - Preliminary Blood Gram negative bacilli 03/06/24 urine culture is pending PG Care Time/CCT Total # of Minutes Spent Total Time Spent with Patient: Total time spent is greater than 50% in coordination of care (as documented) at patient's floor/unit and/or counseling patient: Coding Level of Care Code 85380 SUB INP/OBS CARE 3/50MIN Diagnoses Kidney transplant status, living unrelated donor Z94.0 Sepsis A41.9
[2024-03-07] MEDS: cefTRIAXone SODIUM 2,000 MG/50 ML BAG IV SCH (10:16)
[2024-03-07] MEDS: SODIUM BICARBONATE 8.4% 150 MEQ in WATER, STERILE 1,000 ML IV SCH (10:54)
[2024-03-07] MEDS ORDERED: DAPTOmycin 575 MG in SYRINGE 0 ML IV SCH (14:00)
--- NOTE | 2024-03-07 17:41 | Billing Data ---
Date of Service March 07, 2024 Coding Level of Care Code 14998 SUB INP/OBS CARE
[2024-03-08 07:00] LABS: Hemoglobin 10.1 g/dl (14.0-18.0); Mean Corpuscular Hemoglobin 30.2 pg (25.0-34.0); Mean Corpuscular Hgb Conc 31.6 g/dL (32.0-36.0); Mean Corpuscular Volume 95.8 fL (80.0-100.0); Mean Platelet Volume 11.2 fL (9.4-12.4); Platelet Count 198 K/uL (130-400); RDW Standard Deviation 45.3 fL (36.4-46.3); Red Blood Count 3.34 M/uL (4.70-6.10); White Blood Count 10.22 K/ul (4.8-10.8)
[2024-03-08 07:29] LABS: BUN Creatinine Ratio 21.9 (10-20); Calcium 9.5 mg/dl (8.6-10.3); Creatinine Clr Calc Pharmacy 28.4 ml/min; Magnesium 2.1 mg/dl (1.7-2.4); Potassium 4.2 mmol/L (3.5-5.1)
--- NOTE | 2024-03-08 08:49 | Nephrology Progress Note ---
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 Baseline Cr has risen to 3.0-3.5 * Continue outpatient immunosuppressive regimen: Neoral 100 mg po BID, MMF 1000 mg po BID and prednisone 5 mg daily * Creatinine has risen from 3.1 to 3.61. Patient is nonoliguric. Electrolyte balance is acceptable. Clinically suspect LORENZO related to bacteremia. Expect Cr to trend downward once infection resolves * Monitor daily BMP, UO (2) Sepsis: Plan: * Sepsis likely from urinary source * Urinalysis + for nitrates, microscopy reveals pyuria and bacteruria * Blood culture is + for E. Coli * Urine culture was negative * Patient has received one dose Cefepime and Daptomycin * Now on IV Rocephin therapy * Consider ID evaluation Patient may require prolonged course of antibiotic due to recurrent UTI/bacteremia Admission and Anticipated Discharge Date Admission Date: March 06, 2024 Subjective Mr. Prado was evaluated in his hospital room this morning. His R ear discomfort persists but is mildly improved. He reports improved stamina and had no fever overnight Review of Systems Constitutional: no fever Eyes: no problem reported Ear, Nose, Mouth, Throat: + ear pain (R) Respiratory: no cough and no dyspnea Cardiovascular: no chest pain Gastrointestinal: no abdominal pain, no nausea, no vomiting and no diarrhea/loose stools Genitourinary: no dysuria or no hematuria Integumentary: no rash Physical Exam Constitutional: not in distress Eyes: PERRL, conjunctivae normal, anicteric sclerae ENMT: external ear and nose normal, oropharynx normal Neck: trachea midline, no thyromegaly Respiratory: normal respiratory effort, lungs clear to auscultation Cardiovascular: Rate/Rhythm: regular rate and regular rhythm Extremities: no edema Gastrointestinal (Abdomen): Inspection/Auscultation: abdomen normal to inspection Neurologic: Speech / Cognition: normal speech and normal cognition Results & Data Vital Signs (Past 12 Hours) Vital Signs Temp Pulse Pulse Resp BP Pulse Ox O2 Del Method 03/08/24 07:34 36.4 C L 73 16 143/88 H 98 Room Air 03/08/24 02:22 36.5 C 68 16 149/82 H 97 Room Air 03/07/24 22:23 69 03/07/24 22:22 36.7 C 72 16 145/81 H 95 Room Air Laboratory Results Laboratory Results - last 24 hr 03/08/24 05:37 WBC 10.22 RBC 3.34 L Hgb 10.1 L Hct 32.0 L MCV 95.8 MCH 30.2 MCHC 31.6 L RDW Std Deviation 45.3 RDW Coeff of Theresa 14.0 Plt Count 198 MPV 11.2 Sodium 137 Potassium 4.2 Chloride 102 Carbon Dioxide 23 Anion Gap 12 H BUN 79 H Creatinine 3.61 H Est Cr Clr Drug Dosing 28.4 eGFR 18.23 BUN/Creatinine Ratio 21.9 H Glucose 118 H Calcium 9.5 Magnesium 2.1 Microbiology 03/06/24 11:48 Aerobic Blood Culture - Preliminary Blood No growth in Aerobic bottle after 24 hours. Anaerobic Blood Culture - Preliminary Escherichia coli 03/06/24 11:40 Aerobic Blood Culture - Preliminary Blood Gram negative bacilli Anaerobic Blood Culture - Preliminary No growth in Anaerobic bottle after 24 hours. 03/06/24 16:30 Urine Culture - Preliminary Urine,Clean Catch No growth - Less than 1,000 colonies/mL, Final report to follow. PG Care Time/CCT Total # of Minutes Spent Total Time Spent with Patient: Total time spent is greater than 50% in coordination of care (as documented) at patient's floor/unit and/or counseling patient: Coding Level of Care Code 98499 SUB INP/OBS CARE 3/50MIN Diagnoses Kidney transplant status, living unrelated donor Z94.0 Sepsis A41.9
[2024-03-08 10:45] VITALS: BP 145/88; RESP 19; TEMP 97.3; O2SAT 99
[2024-03-08 14:24] VITALS: PULSE 76
--- NOTE | 2024-03-08 15:21 | Discharge Summary ---
Date of Service March 08, 2024 Admission HPI Per Admitting Provider Kirby Prado is a 63 year old male who presents to the ER with shortness of breath and rigors. Symptoms started today. Similar symptoms with prior sepsis and bacteria presumed to be of urinary source despite never having urinary symptoms including on this occasion. CT in the past have been concerning for prostatitis. Most recently here in January with E. coli bacteremia requiring ICU admission, stress dose steroids and vasopressors. Total 14 days of antibiotics. He was doing well up until this morning. Principal Diagnosis Gram-negative bacteremia Discharge Exam Gen: Very pleasant, sitting comfortably at edge of bed, NAD HEENT: NCAT, PERRL; some remaining lesions near R crown of head, healing well CV: RRR, no m/r/g, S1/S2 normal Resp: CTAB, symmetrical chest rise, breathing non-labored Abd: Soft, NT/ND, +BS, no HSM MSK: Full ROM, normal str, no gross deformities Skin: Warm, dry, pink, no rashes or lesions Psych: Mood-affect congruent. Speech pace and content normal. Discharge Data Allergies Allergy/AdvReac Type Severity Reaction Status Date / Time allopurinol Allergy Unknown Rash Verified 03/06/24 13:23 hydromorphone [From Dilaudid] AdvReac Severe confusion Verified 03/06/24 13:23 Consultations 03/06/24 12:23 ED Decision to Admit Stat 03/06/24 14:23 Consult Nephrology Routine Ordered Studies 03/08/24 05:37 03/08/24 05:37 Hospital Course (1) Sepsis: (2) UTI (urinary tract infection): (3) History of kidney transplant: (4) CKD (chronic kidney disease): (5) Hypomagnesemia: Plan Kirby is a 63yo M w h/o ESKD s/p LURT, BPH, GERD, FARNAZ, HTN, HLD, and prior bacteremia 2/2 UTI. #Sepsis - met SIRS criteria on arrival w HR > 90, RR > 20, WBC > 12; likely urinary source h/o bacteremia 2/2 UTI h/o elevated PSA, consider acute bacterial prostatitis - CRP 2.31, procal 0.81; lactate (0.8) and PSA (2.131) wnl - Empiric abx as recc'd by pharmacy Cefepime 2,000mg IV q12h Dapto 575mg IV q24h - Vitals stabilized, now wnl; leukocytosis resolved - Urine cultures show no growth - Blood cx show gram neg bacilli (Enterobacterales, E. coli) Narrowed IV abx to Rocephin 2,000mg IV q24h - No signs/sx of GI source or prostate infection, so suspect recurrent infection 2/2 chronic immunosuppression Treat w total 14 days with ceftriaxone (2 days completed) - Recommend getting blood cultures repeated about 2 days after the last dose of ceftriaxone to ensure full resolution of infection #UTI - UA w 2+ prot, 2+ leuk esterase, 2+ bacteria, 1+ blood, + nitrites - UCx showing no growth - Cefepime + daptomycin discontinued after 03/06 - Given 2 doses IV rocephin by time of discharge #H/o kidney transplant #CKD - s/p transplant f/ living unrelated donor - 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 Currently 3.45; monitor daily BMP - Continue outpatient immunosuppressive regimen Neoral 100 mg po BID Mycophenolate 1000 mg po BID Prednisone 5 mg daily Managed by Dr. Sanderson outpatient Pt does have a left upper extremity fistula #Hypomagnesemia - Resolved s/p 2g IV Mag sulf - Initially 1.5; now 2.2 Chronic conditions - GERD - continue protonix - HTN - continue losartan - HLD - h/o statin intolerance - BPH - continue home tamsulosin, vibegron, finasteride - Neuropathic pain - gabapenin, duloxetine - Continue chronic anticoag w lovenox Total Time Total Time Spent Total Time Spent (In Minutes): <30 Discharge Plan Discharge Items Patient Disposition: Home - Self-Care Reason For Visit: SEPSIS Discharge Diagnosis: recurrent E Coli bacteremia Activity: Resume your previous activity Non-emergency contact: Primary Care Provider Call non-emergency contact if: you have any medication questions Follow-up/Referrals: Pro,Vinicius Box MD [Primary Care Provider] - 03/16/24 3:00 pm (Hospital follow up scheduled March 16 at 3:00 with Lisset Long PA-C, at the [place] office) Diet: Regular Addtl Attending Provider Instructions: recurrent bloodstream infection - as we discussed, we'll treat for 14 days with ceftriaxone this time (fortunately without urinary retention, signs of a prostate infection, or any GI symptoms, the most likely reason the infection came back so quickly is just (as you guessed) from having chronic immunosuppression -to "hedge" i'd definitely recommend getting blood cultures repeated about 2 days after the last dose of ceftriaxone (that way if we see recurrent/ongoing infection we can get you on antibiotics before you're really sick again, even as we're "starting over" on looking at why the infections happened to begin with) Pending Studies at Discharge: No Stand-Alone Forms: My [facility], Smoking Cessation Medications and DC Order Prescriptions: Continued mycophenolate mofetil [CellCept] 250 mg capsule 1,000 mg PO BID Qty: 180 3RF omeprazole 40 mg capsule,delayed release(DR/EC) 40 mg PO QAM Qty: 90 3RF Repatha Pushtronex 420 mg/3.5 mL wearable injector 420 mg subcut .ONCE MONTHLY Qty: 10.5 1RF cyclosporine modified 100 mg capsule 100 mg PO BID Qty: 180 3RF febuxostat [Uloric] 80 mg tablet 80 mg PO QAM Qty: 90 0RF duloxetine 60 mg capsule,delayed release(DR/EC) 60 mg PO QAM Qty: 90 3RF finasteride [Proscar] 5 mg tablet 5 mg PO QAM Qty: 90 1RF Hold Instructions: Home Medication placed on hold at Doctor's office gabapentin 300 mg capsule 600 mg PO TID 90 Days Qty: 540 0RF Rx Instructions: patient reports taking reduced dose of 600mg TID. losartan 50 mg tablet 50 mg PO QAM Qty: 90 3RF Hold Instructions: Resume on 02/28/24. until cleared by PCP Gemtesa 75 mg tablet 75 mg PO DAILY Qty: 90 1RF enoxaparin [Lovenox] 30 mg/0.3 mL syringe 30 mg subcut QAM docusate sodium [Colace] 100 mg capsule 100 mg PO BID PRN (Reason: Constipation) multivitamin [Daily Multi-Vitamin] tablet 1 tab PO QAM cholecalciferol (vitamin D3) 1,000 unit capsule 1,000 units PO QAM tamsulosin [Flomax] 0.4 mg capsule 0.4 mg PO HS Qty: 90 3RF prednisone 5 mg tablet 5 mg PO QAM Qty: 90 3RF furosemide [Lasix] 40 mg tablet 20 mg PO QAM Qty: 30 3RF Hold Instructions: Resume on 02/28/24. until clear by PCP Rx Instructions: 20mg daily. May take up to 40mg daily if needed for edema acetaminophen [Tylenol Extra Strength] 500 mg Tablet 1,000 mg PO QID PRN (Reason: Pain) Discharge Orders: Discharge Order (Routine); Ordered 03/08/24 Ordered By: Anibal Mendoza Admission Data Admit Date/Time: 03/06/24 12:51 Attending Provider: Anibal Mendoza Admit Provider: Davion Dominguez Primary Care Provider: Vinicius Ng Other Providers: Davion Dominguez; Saul Thornton Other Interventions: Discharge Summary Assessment (RN) Last Done: 03/08/24 14:22 Supervising Physician Co-Signing Physician Notes I personally examined the patient and verified all bunch points of history and exam, discussed case, and agree with decision making with Dr Piña feeling better no LUTS no urinary retention no GI sx Would like to go home. darren noted nad heent nc at mmm breathing unlabored no accessory muscles good effort skin without rashes pallor or icterus. Rectal exam with slightly enlarged prostate seems to be fairly normal for age no nodularity no bogginess or swelling, and rectal exam itself not exquisitely tenderpatient notes it is pretty much similar to prior rectal exams as he recalls. recurrent gram negative sepsis - Does not appear to have any urinary retention or GI translocation. No lower urinary tract symptoms or prostate exam findings consistent with prostatitistherefore recurrent infection most likely simply due to immunocompromise and requiring a longer duration of treatment from previous infection. Repeat cultures last time were negative, repeat cultures sent at this timeoverall seems exceedingly unlikely to be something like endocarditis both based on his clinical presentation and on the fact that it is gram- negativeat the same time discussed with patient to be safe given recurrences would ask that he get repeat blood cultures drawn about 48 hours after his last dose of ceftriaxone. Pansensitive E. colisafe/stable for home. Discussed getting antibiotics at [facility] and allowing him to get home today versus getting things set up for home which may take another dayand he was fine with going to [facility] and getting home today. Set up, safe/stable for home. Repeat blood cultures were sent todayso obviously results are still pending but i anticipate no growth CKD4 s/p renal transplant - appreciate nephro input DVT proph - bert Resident Activity Tracking Resident Involvement: Resident Care Provided Care Provided: Adult Hospital Medicine
--- NOTE | 2024-03-08 19:38 | Billing Data ---
Date of Service March 08, 2024 Coding Level of Care Code 74774 IN/OBS DISCH 30 MIN/LESS
== END 2024-03-08 15:44 | disposition home or self-care (01) | DRG 872 ==
LOC: ED 10:07 → 4W 12:51 → SUATTDRO 12:51 → 4W 15:35

== ENCOUNTER 2024-07-28 17:47 | Inpatient (IN) ==
[2024-07-28 19:14] LABS: Basophils # (auto) 0.06 K/uL (0.00-0.20); Basophils % (auto) 0.4 %; Eosinophils # (auto) 0.31 K/uL (0.00-0.50); Eosinophils % (auto) 2.2 %; Hematocrit (blood only) 32.7 % (42.0-52.0); Hemoglobin 10.6 g/dl (14.0-18.0); Immature Granulocytes # (auto) 0.07 K/uL (0.01-0.20); Immature Granulocytes % (auto) 0.5 %; Lymphocytes # (auto) 0.35 K/uL (1.20-3.40); Lymphocytes % (auto) 2.5 %; Mean Corpuscular Hemoglobin 30.9 pg (25.0-34.0); Mean Corpuscular Hgb Conc 32.4 g/dL (32.0-36.0); Mean Corpuscular Volume 95.3 fL (80.0-100.0); Mean Platelet Volume 10.7 fL (9.4-12.4); Monocytes # (auto) 1.15 K/uL (0.11-0.59); Monocytes % (auto) 8.1 %; Neutrophils # (auto) 12.19 K/uL (1.40-6.50); Neutrophils % (auto) 86.3 %; Platelet Count 217 K/uL (130-400); RDW Coefficient of Variation 13.6 % (11.5-14.5); RDW Standard Deviation 47.3 fL (36.4-46.3); Red Blood Count 3.43 M/uL (4.70-6.10); White Blood Count 14.13 K/ul (4.8-10.8)
--- NOTE | 2024-07-28 19:19 | XRay Report ---
EXAM: Radiograph of the Chest 1 View INDICATION: Chest pain TECHNIQUE: Frontal view of the chest. COMPARISON: 03/06/2024 FINDINGS: Lungs and pleural spaces: Stable prominent mild bronchovascular thickening. No consolidation or pulmonary edema. No pleural effusion or pneumothorax. Heart: Stable large cardiac shadow. Mediastinum: Normal contour. Bones/joints: Degenerative changes noted in the scoliotic spine. No acute osseous abnormality noted. Soft tissues: No abnormality noted. No radiopaque foreign body noted. Upper abdomen: No abnormality noted. IMPRESSION: Stable chronic changes. No acute disease. ACT 112: N/A Electronically signed by Nat Hugo 07-28-2024 7:19 PM
[2024-07-28 19:27] LABS: Albumin Globulin Ratio 1.7 (0.9-2); Albumin Level 4.3 gm/dl (3.4-5.0); BUN Creatinine Ratio 16.9 (10-20); Bilirubin,Total 0.8 mg/dl (0.2-1.0); Creatinine Clr Calc Pharmacy 32.1 ml/min; Globulin 2.5 gm/dl (2.5-4.0); Potassium 5.7 mmol/L (3.5-5.1); Total Protein 6.8 gm/dl (6.0-8.3)
[2024-07-28 19:33] LABS: Troponin I High Sensitivity 25.5 pg/ml (0-20)
[2024-07-28 19:39] LABS: INR 0.9 (0.9-1.1); Partial Thromboplastin Time 28 Seconds (21-31); Prothrombin Time 10.2 Seconds (9.0-12.0)
[2024-07-28 20:03] LABS: Adenovirus PCR Not Detected (NotDetected); Bordetella parapertussis PCR Not Detected (NotDetected); Bordetella pertussis PCR Not Detected (NotDetected); Chlamydia pneumoniae PCR Not Detected (NotDetected); Coronavirus 229E PCR Not Detected (NotDetected); Coronavirus CoV-2 (COVID19)PCR Not Detected (NotDetected); Coronavirus HKU1 PCR Not Detected (NotDetected); Coronavirus NL63 PCR Not Detected (NotDetected); Coronavirus OC43PCR Not Detected (NotDetected); Human Metapneumovirus PCR Not Detected (NotDetected); Influenza A PCR Not Detected (NotDetected); Influenza B PCR Not Detected (NotDetected); Mycoplasma pneumoniae PCR Not Detected (NotDetected); Parainfluenza Virus 1 PCR Not Detected (NotDetected); Parainfluenza Virus 2 PCR Not Detected (NotDetected); Parainfluenza Virus 3 PCR Not Detected (NotDetected); Parainfluenza Virus 4 PCR Not Detected (NotDetected); Respiratory Syncytial VirusPCR Not Detected (NotDetected); Rhinovirus/Enterovirus PCR Not Detected (NotDetected)
--- NOTE | 2024-07-28 20:43 | Emergency Department Note ---
Impression & Plan Pneumonia, Sepsis ED Provider Note NAME: NAN MONTE AGE: 63 SEX: M : 1960 ARRIVES VIA: Walk-In INFORMANT: Patient, ED PROVIDER(S): Rush Johnson MD CHIEF COMPLAINT: Chest pain, cough HPI: This is a 63-year-old male presenting for chest pain and cough. Patient states for the past 3 weeks he has been having preceding symptoms of a possible viral illness. He states he felt Cold-like symptoms. He was treated with antibiotics for close to 3 weeks. He noted that today began having chills, runny nose and cough. He has history of kidney transplant has immunocompromise. He has extreme leg pain at this time. He is of history of neuropathy as well. He notes leg swelling which is chronic for him. His tells him that he gets septic very quickly due to the immunocompromise status. Last time it was 6 hours between first fever and septic shock. ROS: See above HPI for pertinent positives & negatives. A total of 10 systems reviewed and were otherwise negative. PAST MEDICAL HISTORY: See Below PAST SURGICAL HISTORY: See Below FAMILY HISTORY: See Below SOCIAL HISTORY: See Below HOME MEDICATIONS: See Below ALLERGIES: See Below VITALS: See Below PHYSICAL EXAMINATION: General: Writhing in stretcher Head: Normocephalic and atraumatic Eyes: Normal inspection, extraocular muscles intact Ear, nose, throat: Normal external exam Neck: Normal range of motion Respiratory: lungs clear to auscultation bilaterally Cardiovascular: Regular rate/rhythm, no murmur GI: soft, nontender, no guarding or rebound Extremities: Bilateral lower extremity edema, chronic venous skin changes with possibly new erythema Neuro: The patient awake and alert, appropriately conversive, no focal deficits, symmetric faces Skin: Warm, dry, and intact MEDICAL DECISION MAKING: This is a 63-year-old male presenting for chest pain, cough, fever. Patient is borderline febrile here 37.8. He appears in pain. He notes increasing leg swelling/pain. He is having erythema. Consider bilateral cellulitis. There is concern for sepsis. He was treated for pneumonia previously and has no chest symptoms as well. Will do screening workup to include CT imaging to rule out underlying pneumonia. -ECG independently interpreted by me with normal sinus rhythm, rate of 94, left axis deviation, normal QRS, normal QTc, no ST segment elevations consistent with STEMI criteria -Bloodwork reviewed showing leukocytosis, stable anemia. Electrolytes show hyperkalemia 5.7. Creatinine 3.19, seen previously elevated. Troponin mildly elevated 25.5. -There is significant delay in CT reading. I do see a likely pneumonia in the left lower lobe on CT. Will add on doxycycline for the suspected pneumonia -Will admit the patient to hospital service at this time for sepsis, pneumonia and possible cellulitis Differential diagnosis: Sepsis, pneumonia, cellulitis, PE Independent History obtained from: Diagnostics interpreted by me: ECG: ECG independently interpreted by me with normal sinus rhythm, rate of 94, normal MO, normal QRS, normal QTc, no ST segment elevations consistent with STEMI criteria Cardiac Monitoring: An order was placed for continuous cardiac monitoring. The monitor shows a rate of 80 with sinus rhythm. Past Med/Surg History Problem List (Updated 07/29/24 @ 01:28 by Rush Johnson MD) Sepsis (Acute) Pneumonia (Acute) Post herpetic neuralgia Hypomagnesemia Acute bacterial prostatitis CKD (chronic kidney disease) (Acute) History of kidney transplant (Acute) Sepsis (Acute) Sepsis Kidney transplant status, living unrelated donor Complicated urinary tract infection (Acute) History of kidney transplant (Acute) Sepsis (Acute) Chronic anticoagulation currently on lovenox 30mg daily Knee pain Edema Urinary urgency Bacteremia Sepsis (Acute) UTI (urinary tract infection), bacterial Statin intolerance Restrictive lung disease Metabolic acidosis Erectile dysfunction Immunocompromised (Acute) Elevated PSA CKD (chronic kidney disease) stage 4, GFR 15-29 ml/min (Acute) Retroperitoneal hematoma AV fistula LEFT WRIST> NO DIALYSIS CURRENTLY> FISTULA STILL WORKS PER PT GERD (gastroesophageal reflux disease) Obstructive sleep apnea (Chronic) Hyperlipidemia (Acute) Hypertension (Chronic) Medical History Septic shock FARNAZ (obstructive sleep apnea) Chronic kidney disease, stage 4 (severe) Erectile dysfunction Chronic anticoagulation Limb alert care status AV fistula SOB (shortness of breath) Urinary retention Bacteremia due to Escherichia coli Septic shock due to urinary tract infection Anemia Tremor Aortic valve endocarditis Osteoarthritis of left hip Metabolic syndrome Pulmonary nodule Dyslipidemia Encephalopathy Supratherapeutic INR GERD (gastroesophageal reflux disease) Small bowel obstruction Epigastric hernia Umbilical hernia 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 Immunocompromised Chronic venous stasis BPH (benign prostatic hyperplasia) Depression Lower extremity edema Venous stasis dermatitis DVT (deep venous thrombosis) History of basal cell carcinoma Multiple pulmonary nodules Nephrolithiasis Peripheral neuropathy Venous insufficiency Sarcoidosis Hypertension Obesity Gout Surgical History History of surgery on right wrist History of cardiac cath Kidney transplanted H/O colonoscopy History of tooth extraction History of tonsillectomy History of melanoma excision Family History Mother Stroke Heart disease Grandmother Cancer Lung disease Denies family history of Ovarian cancer Prostate cancer Colorectal cancer Social History Smoking Status: Never smoker Second Hand Exposure: Yes (hx as child); Do You Dip or Chew Tobacco: No; Hx Alcohol Use: No Hx Substance Use: No Preferred Language: Icelandic Communication Ability: Effective Visual Impairment: No Limitations Hearing Ability: Normal Senior C Software Developer Required: No Beliefs That Will Affect Care: None marital status: Current Living Situation: Spouse Current Living Situation Comment: living with . current occupational status: employed current occupation: [id number] How many Children do You have: 1 Feels Safe at Home: Yes Diet: low salt caffeine: Yes (1-2 iced tea daily) Dental Care, Regularly: Yes Physical Activity Frequency: Does not Exercise Seatbelt Use: always Sunscreen Use: Yes Do you think of yourself as: straight/heterosexual Gender Identity: Male Assistive Devices: None Allergies Allergies Allergy/AdvReac Type Severity Reaction Status Date / Time allopurinol Allergy Unknown Rash Verified 06/26/24 15:24 hydromorphone [From Dilaudid] AdvReac Severe confusion Verified 06/26/24 15:24 Home Meds Home Medications Medication Instructions Recorded Confirmed cholecalciferol (vitamin D3) 25 1,000 units PO QAM 04/24/19 07/28/24 mcg (1,000 unit) capsule docusate sodium 100 mg capsule 100 mg PO BID PRN Constipation 04/24/19 07/28/24 (Colace) multivitamin (Daily Multi-Vitamin 1 tab PO QAM 04/24/19 07/28/24 tablet) acetaminophen 500 mg tablet 1,000 mg PO QID PRN Pain 08/24/21 07/28/24 (Tylenol Extra Strength) enoxaparin 30 mg/0.3 mL 30 mg subcut QAM 02/23/23 07/28/24 subcutaneous syringe (Lovenox) valacyclovir 1 gram tablet 1,000 mg PO TID 03/14/24 07/28/24 Previous Rx's Medication Instructions Recorded mycophenolate mofetil 250 mg 1,000 mg (4 x 250 mg) PO BID #180 08/27/22 capsule (CellCept) caps prednisone 5 mg tablet 5 mg PO QAM #90 tabs 08/11/23 tamsulosin 0.4 mg capsule (Flomax) 0.4 mg PO HS #90 caps 08/11/23 evolocumab 420 mg/3.5 mL 420 mg (3.5 mL) subcut .ONCE 08/17/23 subcutaneous wearable injector MONTHLY #10.5 mL (Repatha Pushtronex) cyclosporine modified 100 mg 100 mg PO BID #180 caps 09/30/23 capsule duloxetine 60 mg capsule,delayed 60 mg PO QAM #90 caps 12/13/23 release losartan 50 mg tablet 50 mg PO QAM #90 tabs 01/18/24 vibegron 75 mg tablet (Gemtesa) 75 mg PO DAILY #90 tabs 02/09/24 betamethasone dipropionate 0.05 % 1 applic topical BID #60 mL 03/21/24 lotion febuxostat 80 mg tablet (Uloric) 80 mg PO QAM #90 tabs 06/01/24 omeprazole 40 mg capsule,delayed 40 mg PO QAM #90 caps 06/01/24 release finasteride 5 mg tablet (Proscar) 5 mg PO QAM #90 tabs 07/04/24 gabapentin 300 mg capsule 600 mg (2 x 300 mg) PO TID 90 days 07/05/24 #540 caps furosemide 40 mg tablet (Lasix) 20 mg (1/2 x 40 mg) PO QAM #45 tabs 07/10/24 Results & Data (ED) Vital Signs Vital Signs - 24 hr 07/28/24 18:22 07/28/24 19:48 07/28/24 19:48 Temperature 37.0 C 37.8 C H Temperature Source Oral Oral Pulse Rate 98 H Pulse Rate [Right Finger] 98 H Pulse Rhythm [Right Finger] Regular Pulse Strength [Right Finger] Normal Respiratory Rate 19 24 Respiratory Effort / Characteristics Non-Labored Spontaneous Non-Labored Spontaneous Respiratory Depth Normal Normal Respiratory Pattern Regular Blood Pressure 178/93 H Blood Pressure [Right Arm] 186/93 H Blood Pressure Mean 121 Blood Pressure Mean [Right Arm] 124 Blood Pressure Position [Right Arm] Lying Pulse Oximetry 93 96 Oxygen Delivery Method Room Air Room Air Room Air Sepsis Recent Fever Within 48 Hours No Sepsis New/Unexplained Change in Mental Status No Sepsis Action Taken by Nursing No Action Required 07/28/24 19:48 07/28/24 21:00 07/28/24 23:00 Temperature 37.0 C Temperature Source Oral Pulse Rate 98 H Pulse Rate [Right Finger] 94 H 88 Pulse Rhythm [Right Finger] Pulse Strength [Right Finger] Respiratory Rate 24 17 20 Respiratory Effort / Characteristics Non-Labored Spontaneous Non-Labored Spontaneous Respiratory Depth Normal Normal Respiratory Pattern Regular Regular Blood Pressure Blood Pressure [Right Arm] 137/83 150/98 H Blood Pressure Mean Blood Pressure Mean [Right Arm] 101 115 Blood Pressure Position [Right Arm] Lying Pulse Oximetry 96 93 94 Oxygen Delivery Method Room Air Room Air Room Air Sepsis Recent Fever Within 48 Hours Sepsis New/Unexplained Change in Mental Status Sepsis Action Taken by Nursing 07/28/24 23:56 Temperature Temperature Source Pulse Rate 80 Pulse Rate [Right Finger] Pulse Rhythm [Right Finger] Pulse Strength [Right Finger] Respiratory Rate Respiratory Effort / Characteristics Respiratory Depth Respiratory Pattern Blood Pressure Blood Pressure [Right Arm] Blood Pressure Mean Blood Pressure Mean [Right Arm] Blood Pressure Position [Right Arm] Pulse Oximetry Oxygen Delivery Method Sepsis Recent Fever Within 48 Hours Sepsis New/Unexplained Change in Mental Status Sepsis Action Taken by Nursing Laboratory Data 07/28/24 18:49 07/28/24 18:49 Lab Results 07/28/24 07/28/24 07/28/24 Range/Units 18:41 18:47 18:49 WBC 14.13 H (4.8-10.8) K/ul RBC 3.43 L (4.70-6.10) M/uL Hgb 10.6 L (14.0-18.0) g/dl Hct 32.7 L (42.0-52.0) % MCV 95.3 (80.0-100.0) fL MCH 30.9 (25.0-34.0) pg MCHC 32.4 (32.0-36.0) g/dL RDW Std Deviation 47.3 H (36.4-46.3) fL RDW Coeff of Theresa 13.6 (11.5-14.5) % Plt Count 217 (130-400) K/uL MPV 10.7 (9.4-12.4) fL Immature Gran % (Auto) 0.5 % Neut % (Auto) 86.3 % Lymph % (Auto) 2.5 % Morris % (Auto) 8.1 % Eos % (Auto) 2.2 % Baso % (Auto) 0.4 % Neut # (Auto) 12.19 H (1.40-6.50) K/uL Lymph # (Auto) 0.35 L (1.20-3.40) K/uL Morris # (Auto) 1.15 H (0.11-0.59) K/uL Eos # (Auto) 0.31 (0.00-0.50) K/uL Baso # (Auto) 0.06 (0.00-0.20) K/uL Immature Gran # (Auto) 0.07 (0.01-0.20) K/uL PT 10.2 (9.0-12.0) Seconds INR 0.9 (0.9-1.1) APTT 28 (21-31) Seconds PTT Ratio 1.0 Sodium 139 (136-145) mmol/L Potassium 5.7 H (3.5-5.1) mmol/L Chloride 104 (98-107) mmol/L Carbon Dioxide 26 (21-32) mmol/L Anion Gap 9 (3-11) BUN 54 H (6-23) mg/dl Creatinine 3.19 H (0.6-1.4) mg/dl Est Cr Clr Drug Dosing 32.1 ml/min eGFR 21.15 BUN/Creatinine Ratio 16.9 (10-20) Glucose 100 H (70-99(Fasting)) mg/dl Lactate (0.4-2.0) mmol/L Calcium 10.0 (8.6-10.3) mg/dl Total Bilirubin 0.8 (0.2-1.0) mg/dl AST 15 (13-39) U/L ALT 14 (7-52) U/L Alkaline Phosphatase 82 (34-104) U/L Troponin I High Sens 25.5 H (0-20) pg/ml Total Protein 6.8 (6.0-8.3) gm/dl Albumin 4.3 (3.4-5.0) gm/dl Globulin 2.5 (2.5-4.0) gm/dl Albumin/Globulin Ratio 1.7 (0.9-2) Procalcitonin 0.15 (0-0.5) ng/ml Urine Color Urine Appearance (Clear) Urine pH (4.5-7.5) Ur Specific [place] (1.000-1.030) Urine Protein (Negative) Urine Glucose (UA) (Negative) Urine Ketones (Negative) Urine Blood (Negative) Urine Nitrite (Negative) Urine Bilirubin (Negative) Urine Urobilinogen (Negative) Ur Leukocyte Esterase (Negative) Urine WBC (Auto) (0-5) /hpf Urine RBC (Auto) (0-2) /hpf U Hyaline Cast (Auto) (0-2) /lpf U Epithel Cells (Auto) (0-2) /hpf Urine Bacteria (Auto) (None Seen) Adenovirus (PCR) Not Detected (NotDetected) B. pertussis DNA (PCR) Not Detected (NotDetected) B.parapertussis DNA PCR Not Detected (NotDetected) C. pneumoniae DNA (PCR) Not Detected (NotDetected) Coronavirus OC43 (PCR) Not Detected (NotDetected) Coronavirus HKU1 (PCR) Not Detected (NotDetected) Coronavirus 229E (PCR) Not Detected (NotDetected) SARS-CoV-2 (PCR) Not Detected (NotDetected) Coronavirus NL63 (PCR) Not Detected (NotDetected) Human Metapneumovir PCR Not Detected (NotDetected) Influenza Type A (PCR) Not Detected (NotDetected) Influenza Type B (PCR) Not Detected (NotDetected) M. pneumoniae (PCR) Not Detected (NotDetected) Parainfluenza 1 (PCR) Not Detected (NotDetected) Parainfluenza 2 (PCR) Not Detected (NotDetected) Parainfluenza 3 (PCR) Not Detected (NotDetected) Parainfluenza 4 (PCR) Not Detected (NotDetected) RSV (PCR) Not Detected (NotDetected) Entero/Rhino (PCR) Not Detected (NotDetected) 07/28/24 07/29/24 Range/Units 20:41 00:32 WBC (4.8-10.8) K/ul RBC (4.70-6.10) M/uL Hgb (14.0-18.0) g/dl Hct (42.0-52.0) % MCV (80.0-100.0) fL MCH (25.0-34.0) pg MCHC (32.0-36.0) g/dL RDW Std Deviation (36.4-46.3) fL RDW Coeff of Theresa (11.5-14.5) % Plt Count (130-400) K/uL MPV (9.4-12.4) fL Immature Gran % (Auto) % Neut % (Auto) % Lymph % (Auto) % Morris % (Auto) % Eos % (Auto) % Baso % (Auto) % Neut # (Auto) (1.40-6.50) K/uL Lymph # (Auto) (1.20-3.40) K/uL Morris # (Auto) (0.11-0.59) K/uL Eos # (Auto) (0.00-0.50) K/uL Baso # (Auto) (0.00-0.20) K/uL Immature Gran # (Auto) (0.01-0.20) K/uL PT (9.0-12.0) Seconds INR (0.9-1.1) APTT (21-31) Seconds PTT Ratio Sodium (136-145) mmol/L Potassium (3.5-5.1) mmol/L Chloride (98-107) mmol/L Carbon Dioxide (21-32) mmol/L Anion Gap (3-11) BUN (6-23) mg/dl Creatinine (0.6-1.4) mg/dl Est Cr Clr Drug Dosing ml/min eGFR BUN/Creatinine Ratio (10-20) Glucose (70-99(Fasting)) mg/dl Lactate 0.8 (0.4-2.0) mmol/L Calcium (8.6-10.3) mg/dl Total Bilirubin (0.2-1.0) mg/dl AST (13-39) U/L ALT (7-52) U/L Alkaline Phosphatase (34-104) U/L Troponin I High Sens 24.6 H (0-20) pg/ml Total Protein (6.0-8.3) gm/dl Albumin (3.4-5.0) gm/dl Globulin (2.5-4.0) gm/dl Albumin/Globulin Ratio (0.9-2) Procalcitonin (0-0.5) ng/ml Urine Color Yellow Urine Appearance Clear (Clear) Urine pH 8.0 H (4.5-7.5) Ur Specific [place] 1.010 (1.000-1.030) Urine Protein 1+ H (Negative) Urine Glucose (UA) Negative (Negative) Urine Ketones Negative (Negative) Urine Blood Negative (Negative) Urine Nitrite Negative (Negative) Urine Bilirubin Negative (Negative) Urine Urobilinogen Negative (Negative) Ur Leukocyte Esterase Negative (Negative) Urine WBC (Auto) 0-5 (0-5) /hpf Urine RBC (Auto) 0-2 (0-2) /hpf U Hyaline Cast (Auto) 0-2 (0-2) /lpf U Epithel Cells (Auto) 0-2 (0-2) /hpf Urine Bacteria (Auto) None Seen (None Seen) Adenovirus (PCR) (NotDetected) B. pertussis DNA (PCR) (NotDetected) B.parapertussis DNA PCR (NotDetected) C. pneumoniae DNA (PCR) (NotDetected) Coronavirus OC43 (PCR) (NotDetected) Coronavirus HKU1 (PCR) (NotDetected) Coronavirus 229E (PCR) (NotDetected) SARS-CoV-2 (PCR) (NotDetected) Coronavirus NL63 (PCR) (NotDetected) Human Metapneumovir PCR (NotDetected) Influenza Type A (PCR) (NotDetected) Influenza Type B (PCR) (NotDetected) M. pneumoniae (PCR) (NotDetected) Parainfluenza 1 (PCR) (NotDetected) Parainfluenza 2 (PCR) (NotDetected) Parainfluenza 3 (PCR) (NotDetected) Parainfluenza 4 (PCR) (NotDetected) RSV (PCR) (NotDetected) Entero/Rhino (PCR) (NotDetected) Administered Medications Sodium Chloride (Nss) 1,000 mls @ 80 mls/hr IV .[id number] RANDELL Stop: 07/30/24 00:14 Last Admin: 07/29/24 00:16 Dose: 80 mls/hr Documented By: JENNA Discontinued Medications Albuterol (Albut/Ipratrop 3mg/0.5mg Neb 3 Ml Vial) 3 ml NEB NOW STA; Protocol Stop: 07/29/24 00:05 Last Admin: 07/29/24 00:16 Dose: 3 ml Documented By: JENNA Gabapentin (Gabapentin 600 Mg Tab) 600 mg PO NOW STA Stop: 07/28/24 20:47 Last Admin: 07/28/24 20:56 Dose: 600 mg Documented By: SHARON Ceftriaxone Sodium (Rocephin) 2,000 mg in 50 mls @ 100 mls/hr IV NOW STA Stop: 07/28/24 21:03 Last Infusion: 07/28/24 22:22 Dose: Infused Documented By: Admin: 07/28/24 20:57 Dose: 100 mls/hr Documented By: SHARON Doxycycline Hyclate 100 mg/ (Dextrose) 100 mls @ 50 mls/hr IV NOW STA Stop: 07/29/24 00:30 Last Admin: 07/28/24 23:37 Dose: 50 mls/hr Documented By: PAUL Acetaminophen (Ofirmev) 1,000 mg in 100 mls @ 400 mls/hr IV NOW STA Stop: 07/28/24 23:54 Last Infusion: 07/29/24 00:30 Dose: Infused Documented By: Admin: 07/29/24 00:04 Dose: 400 mls/hr Documented By: JENNA Piperacillin Sod/Tazobactam Sod (Zosyn) 4.5 gm in 100 mls @ 200 mls/hr IV NOW ONE; Protocol Stop: 07/29/24 00:09 Last Admin: 07/29/24 00:05 Dose: 200 mls/hr Documented By: JENNA Methylprednisolone (Methylprednisolone 125 Mg/2 Ml Vial) 40 mg IV NOW STA Stop: 07/29/24 00:08 Last Admin: 07/29/24 00:15 Dose: 40 mg Documented By: JENNA Sodium Zirconium Cyclosilicate (Sodium Zirconium Cyclosilicate 10 Gm Packet) 10 gm PO ONE STA Stop: 07/28/24 23:48 Last Admin: 07/29/24 00:05 Dose: 10 gm Documented By: [facility] Data Radiologist's Impression: Chest X-Ray 07/28/24 18:24 EXAM: Radiograph of the Chest 1 View INDICATION: Chest pain TECHNIQUE: Frontal view of the chest. COMPARISON: 03/06/2024 FINDINGS: Lungs and pleural spaces: Stable prominent mild bronchovascular thickening. No consolidation or pulmonary edema. No pleural effusion or pneumothorax. Heart: Stable large cardiac shadow. Mediastinum: Normal contour. Bones/joints: Degenerative changes noted in the scoliotic spine. No acute osseous abnormality noted. Soft tissues: No abnormality noted. No radiopaque foreign body noted. Upper abdomen: No abnormality noted. IMPRESSION: Stable chronic changes. No acute disease. ACT 112: N/A Electronically signed by Nat Hugo 07-28-2024 7:[address] 07/28/24 21:18 Exam(s): CT CHEST Without Contrast EXAM: CT Chest Without Intravenous Contrast CLINICAL HISTORY: Reason for exam: pneumonia. TECHNIQUE: Axial computed tomography images of the chest without intravenous contrast. CTDI is 27.47 mGy and DLP is 905.77 mGy-cm. Automated exposure control was utilized for the study. A dose lowering technique was utilized adhering to the principles of ALARA. COMPARISON: No relevant prior studies available. FINDINGS: Lungs: Numerous bilateral pulmonary nodules all generally having stable size and morphology. Many of these nodules or calcification. There is a new, small patchy area of infiltration in the left lower lobe. Pleural space: Unremarkable. No pneumothorax. No significant effusion. Heart: Heavy coronary arterial calcification. No cardiomegaly. No significant pericardial effusion. Mediastinum: Numerous calcified mediastinal and bilateral hilar lymph nodes from old granulomatous disease. Bones/joints: Unremarkable. No acute fracture. No dislocation. Soft tissues: Unremarkable. Vasculature: No thoracic aortic aneurysm. Lymph nodes: See above. IMPRESSION: New patchy area of infiltration in the left lower lobe likely representing pneumonia. Electronically signed by: Misha Burciaga MD 07/28/24 23:02 PM Discharge Plan Visit Data Chief Complaint: Flu Like Symptoms Stated Complaint: SOB, CHEST PAIN, FEVER, COUGH ED Provider: Rush Johnson Discharge Problem: Pneumonia, Sepsis Forms Stand Alone Forms: [employer] Prescriptions Prescriptions: No Action mycophenolate mofetil [CellCept] 250 mg capsule 1,000 mg PO BID Qty: 180 3RF Repatha Pushtronex 420 mg/3.5 mL wearable injector 420 mg subcut .ONCE MONTHLY Qty: 10.5 1RF cyclosporine modified 100 mg capsule 100 mg PO BID Qty: 180 3RF duloxetine 60 mg capsule,delayed release(DR/EC) 60 mg PO QAM Qty: 90 3RF losartan 50 mg tablet 50 mg PO QAM Qty: 90 3RF Hold Instructions: Resume on 02/28/24. until cleared by PCP Gemtesa 75 mg tablet 75 mg PO DAILY Qty: 90 1RF betamethasone dipropionate 0.05 % lotion 1 applic topical BID Qty: 60 0RF Rx Instructions: Apply to areas of the scalp twice daily x 2 weeks as directed. omeprazole 40 mg capsule,delayed release(DR/EC) 40 mg PO QAM Qty: 90 3RF febuxostat [Uloric] 80 mg tablet 80 mg PO QAM Qty: 90 0RF finasteride [Proscar] 5 mg tablet 5 mg PO QAM Qty: 90 1RF Hold Instructions: Home Medication placed on hold at Doctor's office gabapentin 300 mg capsule 600 mg PO TID 90 Days Qty: 540 0RF furosemide [Lasix] 40 mg tablet 20 mg PO QAM Qty: 45 3RF Hold Instructions: Resume on 02/28/24. until clear by PCP Rx Instructions: 20mg daily. May take up to 40mg daily if needed for edema enoxaparin [Lovenox] 30 mg/0.3 mL syringe 30 mg subcut QAM docusate sodium [Colace] 100 mg capsule 100 mg PO BID PRN (Reason: Constipation) multivitamin [Daily Multi-Vitamin] tablet 1 tab PO QAM cholecalciferol (vitamin D3) 1,000 unit capsule 1,000 units PO QAM tamsulosin [Flomax] 0.4 mg capsule 0.4 mg PO HS Qty: 90 3RF prednisone 5 mg tablet 5 mg PO QAM Qty: 90 3RF acetaminophen [Tylenol Extra Strength] 500 mg Tablet 1,000 mg PO QID PRN (Reason: Pain) valacyclovir 1 gram tablet 1,000 mg PO TID Referrals Referrals: Vinicius Ng MD [Primary Care Provider] - Discharge Problem: Pneumonia Qualifiers: Pneumonia type: due to unspecified organism Laterality: left Lung location: l ower lobe of lung Qualified Code(s): J18.9 - Pneumonia, unspecified organism Sepsis Qualifiers: Sepsis type: sepsis due to unspecified organism Sepsis acute organ dysfunction status: without acute organ dysfunction Qualified Code(s): A41.9 - Sepsis, unspecified organism
[2024-07-28] MEDS: GABAPENTIN 600 MG TAB PO STA (20:56)
[2024-07-28] MEDS: cefTRIAXone SODIUM 2,000 MG/50 ML BAG IV STA (20:57)
--- NOTE | 2024-07-28 23:03 | CT Scan Report ---
Exam(s): CT CHEST Without Contrast EXAM: CT Chest Without Intravenous Contrast CLINICAL HISTORY: Reason for exam: pneumonia. TECHNIQUE: Axial computed tomography images of the chest without intravenous contrast. CTDI is 27.47 mGy and DLP is 905.77 mGy-cm. Automated exposure control was utilized for the study. A dose lowering technique was utilized adhering to the principles of ALARA. COMPARISON: No relevant prior studies available. FINDINGS: Lungs: Numerous bilateral pulmonary nodules all generally having stable size and morphology. Many of these nodules or calcification. There is a new, small patchy area of infiltration in the left lower lobe. Pleural space: Unremarkable. No pneumothorax. No significant effusion. Heart: Heavy coronary arterial calcification. No cardiomegaly. No significant pericardial effusion. Mediastinum: Numerous calcified mediastinal and bilateral hilar lymph nodes from old granulomatous disease. Bones/joints: Unremarkable. No acute fracture. No dislocation. Soft tissues: Unremarkable. Vasculature: No thoracic aortic aneurysm. Lymph nodes: See above. IMPRESSION: New patchy area of infiltration in the left lower lobe likely representing pneumonia. Electronically signed by: Misha Burciaga MD 07/28/24 23:02 PM
[2024-07-28] MEDS: DOXYCYCLINE HYCLATE 100 MG in DEXTROSE 5% MINI-B 100 ML IV STA (23:37)
[2024-07-28] MEDS ORDERED: oxyCODONE HCL IR 5 MG TAB (IMMEDIATE RELEASE) PO PRN ×2 (23:52)
--- NOTE | 2024-07-29 00:02 | History & Physical Report ---
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 He presented to the ED due to flulike symptoms of cough, rhinorrhea, fevers and was found to have a left lower lobe pneumonia. He is being admitted for broad- spectrum IV antibiotics, IV steroids, IV hydration. #LLL PNA failed outpatient course of doxycycline with PCP - MAJANO? immunocompromised with renal transplant, on chronic immunosuppressive therapy chest CT showed new patchy area of infiltration in left lower lobe, likely pneumonia Pro-Clement 0.15 given Rocephin and IV doxycycline in ED; transition to Zosyn and IV doxycycline IV Tylenol prn and oxycodone 5/10 prn for breakthrough pain hold lasix with acute infection NSS at 80 ml/hr incentive spirometry duo-nebs q2h prn Tessalon perles prn for cough oxygen prn for O2 < 94% MRSA swab negative #hyperkalemia K+ 5.7 lokalema x1 on admission trend BMP #renal transplant Cr 3.19 (baseline 3.0-3.5) continue cyclosporine, Uloric, Cellcept hold prednisone and transition to high dose steroids - Solu-medrol 40mg IV Q12h IV hydration #chest pain/elevated trop suspect 2/2 LLL PNA as above inspiratory sharp chest pain trop 25.5 -> 24.6 low suspicion for PE given on maintenance Lovenox EKG with significant artifact (however similar to previous) repeat trop with AM labs pain control with IV Tylenol and oxycodone prn as above monitor on tele EKG prn with chest pain #leukocytosis WC 14.13 suspect 2/2 chronic steroid use and acute infection lactate negative 0.8 low concern for sepsis on admission; however significant hx of septic shock and immunocompromised - admit to PCU follow blood cultures - history of pansensitive E. 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 He presented to the ED due to flulike symptoms of cough, rhinorrhea, fevers and was found to have a left lower lobe pneumonia. He is being admitted for broad- spectrum IV antibiotics, IV steroids, IV hydration. Patient seen at bedside. He was shaking, pale, appeared ill. He stated for the past few days he has had a cough, runny nose, eye drainage, and felt feverish. He also endorses shortness of breath and chest pain with deep inspiration. He feels like he has been struggling to breathe. He also endorses decreased p.o. intake today. He has generalized weakness and muscle aches. He endorses bilateral lower extremity edema however this is chronic and unchanged, he stated it improves whenever he lays down. He denies any recent travel/increased sedentary behaviors. He is immunocompromise with his history of renal transplant on immunosuppressive agents. He does not use nicotine products or drink alcohol. He took his morning medications today but is due for his evening medications, ordered on admission. He has a history of DVT and has been consistent with his Lovenox use, low concern for PE. Valacyclovir noted in his medication list however patient reports he does not take this anymore and took this while ago for a course of shingles that is resolved. He still takes prednisone 5 Mg daily. He wishes to be full code. Allergies Allergy/AdvReac Type Severity Reaction Status Date / Time allopurinol Allergy Unknown Rash Verified 06/26/24 15:24 hydromorphone [From Dilaudid] AdvReac Severe confusion Verified 06/26/24 15:24 Home Medications Medication Instructions Recorded Confirmed Type cholecalciferol (vitamin D3) 25 1,000 units PO QAM 04/24/19 07/28/24 History mcg (1,000 unit) capsule docusate sodium 100 mg capsule 100 mg PO BID PRN Constipation 04/24/19 07/28/24 History (Colace) multivitamin (Daily Multi-Vitamin 1 tab PO QAM 04/24/19 07/28/24 History tablet) acetaminophen 500 mg tablet 1,000 mg PO QID PRN Pain 08/24/21 07/28/24 History (Tylenol Extra Strength) mycophenolate mofetil 250 mg 1,000 mg (4 x 250 mg) PO BID #180 08/27/22 07/28/24 Rx capsule (CellCept) caps enoxaparin 30 mg/0.3 mL 30 mg subcut QAM 02/23/23 07/28/24 History subcutaneous syringe (Lovenox) prednisone 5 mg tablet 5 mg PO QAM #90 tabs 08/11/23 07/28/24 Rx tamsulosin 0.4 mg capsule (Flomax) 0.4 mg PO HS #90 caps 08/11/23 07/28/24 Rx evolocumab 420 mg/3.5 mL 420 mg (3.5 mL) subcut .ONCE 08/17/23 07/28/24 Rx subcutaneous wearable injector MONTHLY #10.5 mL (Repatha Pushtronex) cyclosporine modified 100 mg 100 mg PO BID #180 caps 09/30/23 07/28/24 Rx capsule duloxetine 60 mg capsule,delayed 60 mg PO QAM #90 caps 12/13/23 07/28/24 Rx release losartan 50 mg tablet 50 mg PO QAM #90 tabs 01/18/24 07/28/24 Rx vibegron 75 mg tablet (Gemtesa) 75 mg PO DAILY #90 tabs 02/09/24 07/28/24 Rx valacyclovir 1 gram tablet 1,000 mg PO TID 03/14/24 07/28/24 History betamethasone dipropionate 0.05 % 1 applic topical BID #60 mL 03/21/24 07/28/24 Rx lotion febuxostat 80 mg tablet (Uloric) 80 mg PO QAM #90 tabs 06/01/24 07/28/24 Rx omeprazole 40 mg capsule,delayed 40 mg PO QAM #90 caps 06/01/24 07/28/24 Rx release finasteride 5 mg tablet (Proscar) 5 mg PO QAM #90 tabs 07/04/24 07/28/24 Rx gabapentin 300 mg capsule 600 mg (2 x 300 mg) PO TID 90 days 07/05/24 07/28/24 Rx #540 caps furosemide 40 mg tablet (Lasix) 20 mg (1/2 x 40 mg) PO QAM #45 tabs 07/10/24 07/28/24 Rx Past Med/Surg History Problem List (Updated 07/29/24 @ 05:49 by Luna Petersen PA-C) Leukocytosis Elevated troponin Hyperkalemia Left lower lobe pneumonia Sepsis (Acute) Pneumonia (Acute) Post herpetic neuralgia Hypomagnesemia Acute bacterial prostatitis CKD (chronic kidney disease) (Acute) History of kidney transplant (Acute) Sepsis (Acute) Sepsis Kidney transplant status, living unrelated donor Complicated urinary tract infection (Acute) History of kidney transplant (Acute) Sepsis (Acute) Chronic anticoagulation currently on lovenox 30mg daily Knee pain Edema Urinary urgency Bacteremia Sepsis (Acute) UTI (urinary tract infection), bacterial Statin intolerance Restrictive lung disease Metabolic acidosis Erectile dysfunction Immunocompromised (Acute) Elevated PSA CKD (chronic kidney disease) stage 4, GFR 15-29 ml/min (Acute) Retroperitoneal hematoma AV fistula LEFT WRIST> NO DIALYSIS CURRENTLY> FISTULA STILL WORKS PER PT GERD (gastroesophageal reflux disease) Obstructive sleep apnea (Chronic) Hyperlipidemia (Acute) Hypertension (Chronic) Medical History Septic shock FARNAZ (obstructive sleep apnea) Chronic kidney disease, stage 4 (severe) Erectile dysfunction Chronic anticoagulation Limb alert care status AV fistula SOB (shortness of breath) Urinary retention Bacteremia due to Escherichia coli Septic shock due to urinary tract infection Anemia Tremor Aortic valve endocarditis Osteoarthritis of left hip Metabolic syndrome Pulmonary nodule Dyslipidemia Encephalopathy Supratherapeutic INR GERD (gastroesophageal reflux disease) Small bowel obstruction Epigastric hernia Umbilical hernia 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 Immunocompromised Chronic venous stasis BPH (benign prostatic hyperplasia) Depression Lower extremity edema Venous stasis dermatitis DVT (deep venous thrombosis) History of basal cell carcinoma Multiple pulmonary nodules Nephrolithiasis Peripheral neuropathy Venous insufficiency Sarcoidosis Hypertension Obesity Gout Surgical History History of surgery on right wrist History of cardiac cath Kidney transplanted H/O colonoscopy History of tooth extraction History of tonsillectomy History of melanoma excision Family History Mother Stroke Heart disease Grandmother Cancer Lung disease Denies family history of Ovarian cancer Prostate cancer Colorectal cancer Social History Smoking Status: Never smoker Second Hand Exposure: Yes (as child); Do You Dip or Chew Tobacco: No; Hx Alcohol Use: Yes Alcohol type: other Hx Substance Use: No Preferred Language: Kiswahili Communication Ability: Effective Visual Impairment: No Limitations Hearing Ability: Normal Web Services Professional Required: No Beliefs That Will Affect Care: None marital status: Current Living Situation: Spouse Current Living Situation Comment: living with . current occupational status: employed current occupation: [email or web address] How many Children do You have: 1 Other Information That Helps Us Care for You: No Feels Safe at Home: Yes Safety Concerns: Feels Safe At This Time Diet: low salt caffeine: Yes (1-2 iced tea daily) Dental Care, Regularly: Yes Physical Activity Frequency: Does not Exercise Seatbelt Use: always Sunscreen Use: Yes Do you think of yourself as: straight/heterosexual Gender Identity: Male Assistive Devices: Glasses Assistive Devices Comment: took glasses home Review of Systems Review of Systems: see HPI Physical Exam Physical Exam: The patient is awake, alert and oriented 3, well developed and well nourished, normocephalic and atraumatic, ill appearing, pale. HEENT- EOMI, mucous membranes dry. Hearing grossly intact. Heart-normal S1 and S2. No murmurs, rubs or gallops. Lungs-decreased bilaterally, no respiratory distress, no accessory muscle use. Abdomen-normal bowel sounds and soft. No ascites noted. Non-tender. Extremities- no clubbing, cyanosis, or edema. Results & Data Results & Data Vital Signs (Past 12 Hours) Vital Signs Temp Pulse Pulse Resp BP BP Pulse Ox 07/28/24 23:00 37.0 C 88 20 150/98 H 94 07/28/24 21:00 94 H 17 137/83 93 07/28/24 19:48 98 H 24 96 07/28/24 19:48 07/28/24 19:48 37.8 C H 98 H 24 186/93 H 96 07/28/24 18:22 37.0 C 98 H 19 178/93 H 93 O2 Del Method 07/28/24 23:00 Room Air 07/28/24 21:00 Room Air 07/28/24 19:48 Room Air 07/28/24 19:48 Room Air 07/28/24 19:48 Room Air 07/28/24 18:22 Room Air Laboratory Results Reviewed CBC, PT/INR, CMP, lactate, bio fire, troponin, mag Diagnostic Findings Reviewed CXR and chest CT Medications Administered ed - Rocephin 2G IV, doxycycline 100 Mg IV, gabapentin 600 Mg p.o. AdmissionTylenol 1G IV, Zosyn 4.5G IV, blood, lokelma 10 Mg p.o., DuoNeb x 1, Solu-Medrol 40 Mg IV, NSS at 80 mL/hour ECG Additional Comments: significant artifact, similar to previous R BBB no longer present Rate 94 QTc 415 Code Status & VTE Plan Code Status full VTE Prophylaxis Plan VTE Prophylaxis will be ordered: Yes Supervising Physician Co-Signing Physician Notes Attending addendum: I have physically seen this patient, have supervised the JOSEPH's activities, and agree with the H&P unless as otherwise noted. Assessment and Plan: The patient is a 63-year-old male with a past medical history including renal transplant in 2019, CKD, hypertension, multiple DVTs on Lovenox, and GERD. He presents to the emergency department with cough, rhinorrhea, fevers, with x-ray revealing new left lower lobe infiltrate, and probable right middle lobe infiltrate. From the emergency department he was referred to the [facility] service for evaluation and treatment Multifocal pneumonia, left lower lobe. The right middle lobe- Failure of outpatient doxycycline Renal transplant immunocompromised patient CT chest with new patchy infiltrate left lower lobe, appears to be right middle lobe as well From the ED received ceftriaxone and IV doxycycline Admit on Zosyn 4.5 g IV every 8 hours, and doxycycline 100 mg IV every 12 hours Acetaminophen 1 g IV every 8 hours as needed for mild pain or fever Oxycodone as needed breakthrough pain NSS at 80 mL/h x 1 L DuoNebs every 2 hours as needed Tessalon Perles 100 mg p.o. 3 times daily as needed cough MRSA swab Hyperkalemia/renal transplant status- Potassium 5.7 on admission Lokelma 10 mg p.o. x 1, recheck laboratories in a.m. Renal transplant status-continue cyclosporine, Uloric, CellCept Hold prednisone Solu-Medrol 40 mg IV every 12 hours PG Care Time/CCT Total # of Minutes Spent Total Time Spent with Patient: Total time spent is greater than 50% in coordination of care (as documented) at patient's floor/unit and/or counseling patient: Coding Level of Care Code 39275 INT INP/OBS CARE 3/75MIN Diagnoses Left lower lobe pneumonia J18.9 Hyperkalemia E87.5 History of kidney transplant Z94.0 Elevated troponin R79.89 Leukocytosis D72.829
[2024-07-29] MEDS ORDERED: methylPREDNISolone 40 MG in SYRINGE 0 ML IV ONE (00:03)
[2024-07-29] MEDS: ACETAMINOPHEN 1,000 MG/100 ML VIAL IV STA (00:04)
[2024-07-29] MEDS: SODIUM ZIRCONIUM CYCLOSILICATE 10 GM PACKET PO STA (00:05)
[2024-07-29] MEDS: PIPERACILLIN/TAZOBACTAM 4.5 GM/100 ML BAG IV ONE (00:05)
[2024-07-29] MEDS: methylPREDNISolone 125 MG/2 ML VIAL IV STA (00:15)
[2024-07-29] MEDS: SODIUM CHLORIDE 0.9% 1,000 ML IV SCH (00:16)
[2024-07-29] MEDS: ALBUT/IPRATROP 3MG/0.5MG NEB 3 ML VIAL NEB STA (00:16)
[2024-07-29 00:51] LABS: Appearance Urine Clear (Clear); Bacteria Urine Automated None Seen (None Seen); Bilirubin Urine Negative (Negative); Blood Urine Negative (Negative); Cast Urine Automated 0-2 /lpf (0-2); Color Urine Yellow; Epithelial Cell Urine Auto 0-2 /hpf (0-2); Glucose Urine UA Negative (Negative); Ketones Urine Negative (Negative); Leukocyte Esterase Urine Negative (Negative); Nitrite Urine Negative (Negative); Protein Urine 1+ (Negative); RBC Urine Automated 0-2 /hpf (0-2); Urobilinogen Urine Negative (Negative); WBC Urine Automated 0-5 /hpf (0-5)
[2024-07-29] MEDS ORDERED: BENZONATATE 100 MG CAPSULE PO PRN (01:45)
[2024-07-29] MEDS ORDERED: ONDANSETRON INJ 2 MG/ML 2 ML VIAL IV PRN (01:45)
[2024-07-29] MEDS ORDERED: ALBUT/IPRATROP 3MG/0.5MG NEB 3 ML VIAL NEB PRN (01:45)
[2024-07-29] MEDS ORDERED: DOCUSATE SODIUM 100 MG CAP PO PRN (01:45)
[2024-07-29] MEDS ORDERED: MELATONIN 3 MG TAB PO PRN (01:45)
[2024-07-29] MEDS: MYCOPHENOLATE MOFETIL 250 MG CAP PO SCH (02:26)
[2024-07-29] MEDS: cycloSPORINE 100 MG CAP PO SCH (02:26)
[2024-07-29] MEDS: GABAPENTIN 600 MG TAB PO SCH (02:26)
[2024-07-29 07:17] LABS: Magnesium 1.5 mg/dl (1.7-2.4)
[2024-07-29 07:26] LABS: Troponin I High Sensitivity 13.9 pg/ml (0-20)
[2024-07-29] MEDS: PIPERACILLIN/TAZOBACTAM 4.5 GM/100 ML BAG IV SCH (09:33)
[2024-07-29] MEDS: methylPREDNISolone 40 MG in SYRINGE 0 ML IV SCH (09:35)
[2024-07-29] MEDS: VIBEGRON 75 MG TAB PO SCH (09:35)
[2024-07-29] MEDS: PANTOprazole 40 MG TAB PO SCH (09:35)
[2024-07-29] MEDS: LOSARTAN POTASSIUM 50 MG TAB PO SCH (09:35)
[2024-07-29] MEDS: DULoxetine HCL 60 MG CAP PO SCH (09:35)
[2024-07-29] MEDS: ENOXAPARIN INJ 30 MG/0.3 ML SYR SQ SCH (09:36)
[2024-07-29] MEDS: FEBUXOSTAT 40 MG TABLET PO SCH (09:36)
[2024-07-29] MEDS: FINASTERIDE 5 MG TAB PO SCH (09:36)
[2024-07-29 09:52] LABS: BUN Creatinine Ratio 15.5 (10-20); Calcium 8.9 mg/dl (8.6-10.3); Creatinine Clr Calc Pharmacy 30.9 ml/min; Potassium 4.9 mmol/L (3.5-5.1)
[2024-07-29] MEDS: ACETAMINOPHEN 1,000 MG/100 ML VIAL IV PRN (10:06)
[2024-07-29] MEDS: MAGNESIUM SULFATE / D5W 1 GM/100 ML BAG IV ONE (10:33)
[2024-07-29] MEDS: DOXYCYCLINE HYCLATE 100 MG in DEXTROSE 5% MINI-B 100 ML IV SCH (12:37)
--- NOTE | 2024-07-29 12:51 | Hospitalist Progress Note ---
Date of Service July 29, 2024 Assessment & Plan (1) Left lower lobe pneumonia: (2) Hyperkalemia: (3) History of kidney transplant: (4) Elevated troponin: (5) Leukocytosis: Plan 63yo male with renal transplant in 2018 (baseline CR 3.0-3.5) on multiple immunosuppressants including prednisone, CKD of his renal transplant, hypertension, multiple DVTs on chronic low-dose Lovenox, GERD. Presented with fulike symptoms of cough, rhinorrhea, fevers and was found to have a left lower lobe pneumonia. #LLL pneumonia - had 2-week course of doxy in July given his immunocompromised status (renal transplant, on chronic immunosuppressive therapy) we will cover for gram negative pneumonia with zosyn reasonable to continue doxy since the doxy course finished about 2 weeks ago although atypical pneumonia highly unlikely MRSA swab neg - defer on MRSA coverage blood cx's thus far negative STOP IV solumedrol #hyperkalemia - K+ 5.7 at presentation 2nd to chronic renal dysfunction of his renal transplant resolved s/p lokelma & IV fluids BMP in am for stability change diet to Low K diet hold losartan #renal transplant status - had such at [facility] in [place] several years ago Cr 3.19 at admission Cr 3.29 today baseline ~3.0-3.5 continue cyclosporine, Cellcept s/p IV solumedrol yesterday and again today for "stress" dose purposes BPs are stable no wheezing thus, stop solumedrol resume prednisone tomorrow - give 20mg tomorrow, then 10mg Wednesday, then back to 5mg/day thereafter #chest pain/elevated trop - suspect 2nd to LLL Pneumonia No complicating parapneumonic effusion or empyema doubt PE minimal trop elevation 25.5 -> 24.6 this is likely 2nd to myocardial demand ischemia in setting of pneumonia rather than ACS if he continues with pain consider V/Q scan as CTA chest is not possible given his CKD #hypomagnesemia - replace with IV mag sulfate 1gm x 1 repeat mag level am tomorrow Chronic stable diagnoses: HTN hold losartan due to hyperkalemia GERDcontinue PPI BPHcontinue tamsulosin and finasteride Hx DVTcontinue Lovenox 30mg daily for prophylaxis possible d/c next 48 hours he is quite stable and doing ok Admission and Anticipated Discharge Date Admission Date: July 29, 2024 Subjective tele overnight wnl patient feeling a little better less pleuritic type pain over the left lower chest no dyspnea at rest still with cough energy and appetite are still a bit off Review of Systems Review of Systems: gen - no fevers or chills cv - no substernal cp or right-sided cp pulm - no wheezing GI - no abd pain or N/V Physical Exam Physical Exam: gen - obese, NAD, looks good; nontoxic appearing neck - no JVD mouth - MMM, no thrush heart - RRR, s1 s2 lungs - focal rales L base, otherwise CTA b/l; no wheezes; no increased work of breathing abd - soft NT ND BS+ ext - left calf/leg - larger than right leg; no edema vascular - foot pulses 2+ b/l skin - venous stasis changes b/l shins psych - a/o x 3 Results & Data Results & Data Vital Signs (Past 12 Hours) Vital Signs Temp Pulse Pulse Resp BP Pulse Ox O2 Del Method 07/29/24 12:04 36.7 C 79 20 167/86 H 94 Room Air 07/29/24 11:44 Room Air 07/29/24 07:56 76 07/29/24 07:26 36.6 C 71 20 168/85 H 95 Room Air 07/29/24 02:00 Room Air 07/29/24 01:45 36.8 C 82 20 152/83 H 96 Room Air 07/29/24 01:44 79 07/29/24 01:44 70 21 98 Room Air 07/29/24 01:00 80 21 94 Room Air Laboratory Results Laboratory Results - last 24 hr 07/29/24 06:33 Sodium 139 Potassium 4.9 Chloride 105 Carbon Dioxide 23 Anion Gap 11 BUN 51 H Creatinine 3.29 H Est Cr Clr Drug Dosing 30.9 eGFR 20.38 BUN/Creatinine Ratio 15.5 Glucose 96 Calcium 8.9 Magnesium 1.5 L Troponin I High Sens 13.9 D Diagnostic Findings Microbiology 07/28/24 20:41 Blood Aerobic Blood Culture - Preliminary No growth in Aerobic bottle after 24 hours. 07/28/24 20:41 Blood Anaerobic Blood Culture - Preliminary No growth in Anaerobic bottle after 24 hours. 07/28/24 20:41 Blood Aerobic Blood Culture - Preliminary No growth in Aerobic bottle after 24 hours. 07/28/24 20:41 Blood Anaerobic Blood Culture - Preliminary No growth in Anaerobic bottle after 24 hours. Chest X-Ray 07/28/24 18:24 EXAM: Radiograph of the Chest 1 View INDICATION: Chest pain TECHNIQUE: Frontal view of the chest. COMPARISON: 03/06/2024 FINDINGS: Lungs and pleural spaces: Stable prominent mild bronchovascular thickening. No consolidation or pulmonary edema. No pleural effusion or pneumothorax. Heart: Stable large cardiac shadow. Mediastinum: Normal contour. Bones/joints: Degenerative changes noted in the scoliotic spine. No acute osseous abnormality noted. Soft tissues: No abnormality noted. No radiopaque foreign body noted. Upper abdomen: No abnormality noted. IMPRESSION: Stable chronic changes. No acute disease. ACT 112: N/A Electronically signed by Nat Hugo 07-28-2024 7:[address] 07/28/24 21:18 Exam(s): CT CHEST Without Contrast EXAM: CT Chest Without Intravenous Contrast CLINICAL HISTORY: Reason for exam: pneumonia. TECHNIQUE: Axial computed tomography images of the chest without intravenous contrast. CTDI is 27.47 mGy and DLP is 905.77 mGy-cm. Automated exposure control was utilized for the study. A dose lowering technique was utilized adhering to the principles of ALARA. COMPARISON: No relevant prior studies available. FINDINGS: Lungs: Numerous bilateral pulmonary nodules all generally having stable size and morphology. Many of these nodules or calcification. There is a new, small patchy area of infiltration in the left lower lobe. Pleural space: Unremarkable. No pneumothorax. No significant effusion. Heart: Heavy coronary arterial calcification. No cardiomegaly. No significant pericardial effusion. Mediastinum: Numerous calcified mediastinal and bilateral hilar lymph nodes from old granulomatous disease. Bones/joints: Unremarkable. No acute fracture. No dislocation. Soft tissues: Unremarkable. Vasculature: No thoracic aortic aneurysm. Lymph nodes: See above. IMPRESSION: New patchy area of infiltration in the left lower lobe likely representing pneumonia. Electronically signed by: Misha Burciaga MD 07/28/24 23:02 PM PG Care Time/CCT Total # of Minutes Spent Total Time Spent with Patient: Total time spent is greater than 50% in coordination of care (as documented) at patient's floor/unit and/or counseling patient: Coding Level of Care Code 38641 SUB INP/OBS CARE 3/50MIN Diagnoses Left lower lobe pneumonia J18.9 Hyperkalemia E87.5 History of kidney transplant Z94.0 Elevated troponin R79.89 Leukocytosis D72.829
[2024-07-29] MEDS: TAMSULOSIN HCL 0.4 MG CAP PO SCH (20:11)
[2024-07-30 08:20] LABS: BUN Creatinine Ratio 15.6 (10-20); Calcium 9.1 mg/dl (8.6-10.3); Creatinine Clr Calc Pharmacy 31.2 ml/min; Magnesium 1.8 mg/dl (1.7-2.4); Potassium 5.2 mmol/L (3.5-5.1)
[2024-07-30] MEDS: predniSONE 20 MG TAB PO SCH (08:45)
[2024-07-30] MEDS: SODIUM ZIRCONIUM CYCLOSILICATE 10 GM PACKET PO SCH (11:24)
--- NOTE | 2024-07-30 18:44 | Hospitalist Progress Note ---
Date of Service July 30, 2024 Assessment & Plan (1) Left lower lobe pneumonia: (2) Hyperkalemia: (3) History of kidney transplant: (4) Elevated troponin: (5) Leukocytosis: Plan 63yo male with renal transplant in 2018 (baseline CR 3.0-3.5) on multiple immunosuppressants including prednisone, CKD of his renal transplant, hypertension, multiple DVTs on chronic low-dose Lovenox, GERD. Presented with fevers & cough - found to have a left lower lobe pneumonia on CT chest. #LLL pneumonia - had 2-week course of doxy in July given his immunocompromised status (renal transplant, on chronic immunosuppressive therapy) we will cover for gram negative pneumonia with zosyn reasonable to continue doxy since the doxy course finished about 2 weeks ago although atypical pneumonia highly unlikely MRSA swab neg - defer on MRSA coverage blood cx's thus far negative cont IV zosyn/doxy can likely transition to PO levaquin tomorrow to complete his course #hyperkalemia - K+ 5.7 at presentation 2nd to chronic renal dysfunction of his renal transplant, perhaps mild volume contraction, and losartan use resolved s/p lokelma & IV fluids changed diet to Low K diet holding losartan today - K 5.2 informally discussed this issue with on-call nephrology via [place] [employer] will keep low K diet and lower losartan to 25mg daily repeat BMP am #renal transplant status - had such at [facility] in [place] several years ago Cr 3.19 at admission Cr 3.26 today baseline ~3.0-3.5 continue cyclosporine, Cellcept s/p IV solumedrol for "stress" dose purposes early in the admission - now off resumed prednisone today - give 20mg today, then 10mg Wednesday, then back to 5mg/day thereafter #chest pain/elevated trop - suspect 2nd to LLL Pneumonia No complicating parapneumonic effusion or empyema doubt PE minimal trop elevation 25.5 -> 24.6 this is likely 2nd to myocardial demand ischemia in setting of pneumonia rather than ACS pain now resolved #hypomagnesemia - replace with IV mag sulfate 1gm x 1 repeat mag level today wnl Chronic stable diagnoses: HTN hold losartan due to hyperkalemia but plan to resume tomorrow if K <5; resume at 1/2 usual dose GERDcontinue PPI BPHcontinue tamsulosin and finasteride Hx DVTcontinue Lovenox 30mg daily for prophylaxis updated at bedside hopeful for d/c home tomorrow Admission and Anticipated Discharge Date Admission Date: July 29, 2024 Subjective feels much better today the previous left-sided pleuritic discomfort has resolved cough improved no dyspnea at rest minimal dyspnea on exertion eating well, appetite is back no new complaints Review of Systems Review of Systems: gen - no fevers or chills cv - no substernal chest pain; no right-sided chest pain pulm - no hemoptysis GI - no abd pain or N/V Physical Exam Physical Exam: gen - obese, NAD, looks well neck - no JVD mouth - MMM, no thrush heart - RRR, s1 s2, no murmur lungs - scant focal rales L base, otherwise CTA b/l; no wheezes; no increased work of breathing abd - soft NT ND BS+ ext - left calf/leg - larger than right leg; no edema vascular - foot pulses 2+ b/l skin - venous stasis changes b/l shins psych - a/o x 3 Results & Data Results & Data Vital Signs (Past 12 Hours) Vital Signs Temp Pulse Pulse Resp BP Pulse Ox O2 Del Method 07/30/24 15:51 80 07/30/24 15:46 36.6 C 72 20 156/81 H 95 Room Air 07/30/24 11:52 36.4 C L 80 18 127/83 99 Room Air 07/30/24 11:09 Room Air 07/30/24 07:50 36.4 C L 73 20 148/81 H 96 Room Air 07/30/24 07:07 74 Laboratory Results Laboratory Results - last 24 hr 07/30/24 07:25 Sodium 139 Potassium 5.2 H Chloride 106 Carbon Dioxide 25 Anion Gap 8 BUN 51 H Creatinine 3.26 H Est Cr Clr Drug Dosing 31.2 eGFR 20.61 BUN/Creatinine Ratio 15.6 Glucose 144 H Calcium 9.1 Magnesium 1.8 PG Care Time/CCT Total # of Minutes Spent Total Time Spent with Patient: Total time spent is greater than 50% in coordination of care (as documented) at patient's floor/unit and/or counseling patient: Coding Level of Care Code 63121 SUB INP/OBS CARE 2/35MIN Diagnoses Left lower lobe pneumonia J18.9 Hyperkalemia E87.5 History of kidney transplant Z94.0 Elevated troponin R79.89 Leukocytosis D72.829
[2024-07-31 07:13] VITALS: BP 167/88; RESP 18; TEMP 98.1; O2SAT 97
[2024-07-31 07:56] LABS: BUN Creatinine Ratio 15.6 (10-20); Calcium 9.3 mg/dl (8.6-10.3); Potassium 4.9 mmol/L (3.5-5.1)
[2024-07-31] MEDS: LOSARTAN POTASSIUM 25 MG TAB PO SCH (08:47)
[2024-07-31] MEDS: predniSONE 10 MG TABLET PO SCH (09:31)
[2024-07-31 11:34] VITALS: PULSE 68
--- NOTE | 2024-07-31 13:30 | Electrocardiogram Report ---
Test Reason : Blood Pressure : */* mmHG Vent. Rate : 94 BPM Atrial Rate : 94 BPM P-R Int : 164 ms QRS Dur : 94 ms QT Int : 332 ms P-R-T Axes : 25 -34 31 degrees QTcB Int : 415 ms Sinus rhythm Left axis deviation Minimal voltage criteria for LVH, may be normal variant ( R in aVL ) Septal infarct , age undetermined Abnormal ECG When compared with ECG of 06-Mar-2024 10:53, Septal infarct is now Present Confirmed by Saleem Castellon ([id number]) on 07/31/2024 1:29:31 PM Referred By: REFERRED SELF Confirmed By: Saleem Castellon
--- NOTE | 2024-08-02 07:34 | Discharge Summary ---
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 Presented with fevers, cough, and pleuritic left-sided chest discomfort. Found to have a left lower lobe pneumonia on CT chest. #LLL pneumonia - had 2-week course of doxycycline in July given his immunocompromised status (renal transplant, on chronic immunosuppressive therapy) we will cover for gram negative pneumonia with zosyn reasonable to continue doxy since the doxy course finished about 2 weeks ago although atypical pneumonia highly unlikely MRSA swab neg - defer on MRSA coverage blood cx's thus far negative cont IV zosyn/doxy can likely transition to PO levaquin tomorrow to complete his course #hyperkalemia - K+ 5.7 at presentation 2nd to chronic renal dysfunction of his renal transplant, perhaps mild volume contraction, and losartan use resolved s/p lokelma & IV fluids changed diet to Low K diet holding losartan today - K 5.2 informally discussed this issue with on-call nephrology via [facility] will keep low K diet and lower losartan to 25mg daily repeat BMP am #renal transplant status - had such at [facility] in [place] several years ago Cr 3.19 at admission Cr 3.26 today baseline ~3.0-3.5 continue cyclosporine, Cellcept s/p IV solumedrol for "stress" dose purposes early in the admission - now off resumed prednisone today - give 20mg today, then 10mg Wednesday, then back to 5mg/day thereafter #chest pain/elevated trop - suspect 2nd to LLL Pneumonia No complicating parapneumonic effusion or empyema doubt PE minimal trop elevation 25.5 -> 24.6 this is likely 2nd to myocardial demand ischemia in setting of pneumonia rather than ACS pain now resolved #hypomagnesemia - replace with IV mag sulfate 1gm x 1 repeat mag level today wnl Chronic stable diagnoses: HTN hold losartan due to hyperkalemia but plan to resume tomorrow if K <5; resume at 1/2 usual dose GERDcontinue PPI BPHcontinue tamsulosin and finasteride Hx DVTcontinue Lovenox 30mg daily for prophylaxis Admission HPI Per Admitting Provider Patient is a 63-year-old male with a past medical history of renal transplant in 2019 (baseline CR 3.0-3.5), CKD, hypertension, multiple DVTs on Lovenox, GERD. He presented to the ED due to flulike symptoms of cough, rhinorrhea, fevers and was found to have a left lower lobe pneumonia. He is being admitted for broad- spectrum IV antibiotics, IV steroids, IV hydration. Patient seen at bedside. He was shaking, pale, appeared ill. He stated for the past few days he has had a cough, runny nose, eye drainage, and felt feverish. He also endorses shortness of breath and chest pain with deep inspiration. He feels like he has been struggling to breathe. He also endorses decreased p.o. intake today. He has generalized weakness and muscle aches. He endorses bilateral lower extremity edema however this is chronic and unchanged, he stated it improves whenever he lays down. He denies any recent travel/increased sedentary behaviors. He is immunocompromise with his history of renal transplant on immunosuppressive agents. He does not use nicotine products or drink alcohol. He took his morning medications today but is due for his evening medications, ordered on admission. He has a history of DVT and has been consistent with his Lovenox use, low concern for PE. Valacyclovir noted in his medication list however patient reports he does not take this anymore and took this while ago for a course of shingles that is resolved. He still takes prednisone 5 Mg daily. He wishes to be full code. Discharge Exam gen - obese, NAD, looks well neck - no JVD mouth - MMM, no thrush heart - RRR, s1 s2, no murmur lungs - scant focal rales L base, otherwise CTA b/l; no wheezes; no increased work of breathing abd - soft NT ND BS+ ext - left calf/leg - larger than right leg; no edema vascular - foot pulses 2+ b/l skin - venous stasis changes b/l shins psych - a/o x 3 Discharge Plan Discharge Items Patient Disposition: Home - Self-Care Reason For Visit: Pneumonia Discharge Diagnosis: 1. left lower lobe pneumonia 2. mildly elevated potassium - improved 3. chronic kidney disease - discharge creatinine 3.3 4. renal transplant 5. high blood pressure Activity: As commented below Activity Comment: gradually increase activities over the next 7-10 days Sexual Activity: Wait until after follow-up appointment Exercise/Sports: Wait until after follow-up appointment Non-emergency contact: Primary Care Provider and [employer] Guide Call non-emergency contact if: you have any medication questions, your symptoms worsen and you have a fever Follow-up/Referrals: Vinicius Ng MD [Primary Care Provider] - 08/07/24 3:00 pm (1-2 weeks Hospital follow up scheduled August 07 at 3:00) Srikanth Aguilera DO [Physician] - 08/02/24 10:20 am Diet: Heart Healthy and Low Potassium (2gm) Fluids: 1800ml (7 cups) Addtl Attending Provider Instructions: Mr Prado, Tony were hospitalized due to pneumonia at the bottom of your left lung (left lower lobe). You responded nicely to IV antibiotics. Your blood cultures have remained negative - that is, we did not find bacteria in the blood. You also had mildly elevated potassium levels intermittently while here. You received medicine to lower the potassium. Discharge potassium level is 4.9 (normal range). Recommendations - 1. antibiotics - * levofloxacin 750mg - take 1 dose TODAY 07/31/24, and take a 2nd dose on 08/02/24 * most common side effect - diarrhea * rare side effect - tendonitis, particularly of the achilles tendon 2. feel free to take [id number] Mucinex up to 1200mg twice daily as needed for cough/chest congestion 3. resume your typical prednisone dose of 5mg once daily on 08/01/24 4. please follow a low potassium diet - see handout 5. please have Dr Aguilera repeat your potassium level later this week 6. LOWER your losartan from 50mg daily to 25mg daily; start this tomorrow, 08/01/24 7. resume your furosemide diuretic tomorrow on 08/01/24 8. please check your blood pressure twice daily at home and show those values to Dr Aguilera later this week. During your stay your blood pressures were running high. With the reduction in your losartan they could go even higher. Follow-up - see separate section Return to [facility] if - * you develop fever over 100 degrees * you develop severe diarrhea (3 more liquid stools in a 24-hour period) * you have worsening shortness of breath * you have chest pains * any other concerns It was our pleasure to care for you! -Dr Triana Pending Studies at Discharge: Yes Studies:: blood cultures but thus far negative Stand-Alone Forms: My [facility], Smoking Cessation Medications and DC Order Prescriptions: Continued mycophenolate mofetil [CellCept] 250 mg capsule 1,000 mg PO BID Qty: 180 3RF Repatha Pushtronex 420 mg/3.5 mL wearable injector 420 mg subcut .ONCE MONTHLY Qty: 10.5 1RF cyclosporine modified 100 mg capsule 100 mg PO BID Qty: 180 3RF duloxetine 60 mg capsule,delayed release(DR/EC) 60 mg PO QAM Qty: 90 3RF Gemtesa 75 mg tablet 75 mg PO DAILY Qty: 90 1RF betamethasone dipropionate 0.05 % lotion 1 applic topical BID Qty: 60 0RF Rx Instructions: Apply to areas of the scalp twice daily x 2 weeks as directed. omeprazole 40 mg capsule,delayed release(DR/EC) 40 mg PO QAM Qty: 90 3RF febuxostat [Uloric] 80 mg tablet 80 mg PO QAM Qty: 90 0RF finasteride [Proscar] 5 mg tablet 5 mg PO QAM Qty: 90 1RF Hold Instructions: Home Medication placed on hold at Doctor's office gabapentin 300 mg capsule 600 mg PO TID 90 Days Qty: 540 0RF enoxaparin [Lovenox] 30 mg/0.3 mL syringe 30 mg subcut QAM multivitamin [Daily Multi-Vitamin] tablet 1 tab PO QAM cholecalciferol (vitamin D3) 1,000 unit capsule 1,000 units PO QAM tamsulosin [Flomax] 0.4 mg capsule 0.4 mg PO HS Qty: 90 3RF acetaminophen [Tylenol Extra Strength] 500 mg Tablet 1,000 mg PO QID PRN (Reason: Pain) prednisone 5 mg tablet 5 mg PO QAM Qty: 90 3RF Rx Instructions: resume 08/01/24. Held furosemide [Lasix] 40 mg tablet 20 mg PO QAM Qty: 45 3RF Hold Instructions: Resume on 08/01/24. Rx Instructions: 20mg daily. May take up to 40mg daily if needed for edema docusate sodium [Colace] 100 mg capsule 100 mg PO BID PRN (Reason: Constipation) Hold Instructions: hold while having diarrhea Discontinued losartan 50 mg tablet 50 mg PO QAM Qty: 90 3RF Hold Instructions: Resume on 02/28/24. until cleared by PCP No Action losartan 50 mg tablet 50 mg PO QAM Qty: 90 3RF Discharge Orders: Discharge Order (Routine); Ordered 07/31/24 Ordered By: Davion Ruiz/Other Patient Handouts: Low Potassium Diet Dc Admission Data Admit Date/Time: 07/29/24 00:09 Attending Provider: Davion Triana Admit Provider: Yovani Pizarro Primary Care Provider: Vinicius Ng Other Providers: Yovani Pizarro Other Interventions: Discharge Summary Assessment (RN) Last Done: 07/31/24 11:32 Hospital Stay Data Consultations 07/28/24 22:59 ED Decision to Admit Stat Diagnostic Imagining Performed 07/28/24 21:18 CT chest diagnostic wo con Stat Pending Results Patient Have Any Pending Studies at Discharge: Yes Discharge Instructions Given to Patient (Per Discharging Provider) Mr Prado, Tony were hospitalized due to pneumonia at the bottom of your left lung (left lower lobe). You responded nicely to IV antibiotics. Your blood cultures have remained negative - that is, we did not find bacteria in the blood. You also had mildly elevated potassium levels intermittently while here. You received medicine to lower the potassium. Discharge potassium level is 4.9 (normal range). Recommendations - 1. antibiotics - * levofloxacin 750mg - take 1 dose TODAY 07/31/24, and take a 2nd dose on 08/02/24 * most common side effect - diarrhea * rare side effect - tendonitis, particularly of the achilles tendon 2. feel free to take [id number] Mucinex up to 1200mg twice daily as needed for cough/chest congestion 3. resume your typical prednisone dose of 5mg once daily on 08/01/24 4. please follow a low potassium diet - see handout 5. please have Dr Aguilera repeat your potassium level later this week 6. LOWER your losartan from 50mg daily to 25mg daily; start this tomorrow, 08/01/24 7. resume your furosemide diuretic tomorrow on 08/01/24 8. please check your blood pressure twice daily at home and show those values to Dr Aguilera later this week. During your stay your blood pressures were running high. With the reduction in your losartan they could go even higher. Follow-up - see separate section Return to [facility] if - * you develop fever over 100 degrees * you develop severe diarrhea (3 more liquid stools in a 24-hour period) * you have worsening shortness of breath * you have chest pains * any other concerns It was our pleasure to care for you! -Dr Triana Coding Diagnoses Left lower lobe pneumonia J18.9 Hyperkalemia E87.5 History of kidney transplant Z94.0 Elevated troponin R79.89
== END 2024-07-31 12:11 | disposition home or self-care (01) | DRG 178 ==
LOC: ED 17:47 → SUATTDRO 07-29 00:09 → 2S 07-29 00:09